=== PATIENT | female | born 1995 | race Caucasian/White ===

== ENCOUNTER 2023-07-11 13:08 | Outpatient (OUT) | payer OTHER, SELFPAY ==
--- NOTE | 2023-07-11 13:10 | US_ITS ---
[address] [address] Patient Name: JERAMY SWEENEY MRN: [id number] date: 1995 Sex: F Assigned Patient Location: US Current Patient Location: US Accession/Order Number: [id number] Exam Date: 07/11/2023 13:10 Report Date: 07/11/2023 15:50 At the request of: BRIA DIAL Procedure: US OB transvaginal EXAMINATION: US OB transvaginal HISTORY: MISSED MENSES COMPARISON: No relevant comparison available. FINDINGS: GESTATIONAL SAC: Present and normal appearing. YOLK SAC: Present and normal appearing. POLE: Present and normal appearing. CARDIAC: Present. UTERUS: Normal size and appearance. OVARIES: Right: Normal. Left: Corpus lutein cyst. CERVIX: 4.6 cm in length and closed. CUL-DE-SAC: Normal. OTHER: None. AGE BY LMP: 8 weeks 2 days GOOD BY LMP: 02/18/2024 AGE BY US CRL: 6 weeks 3 days GOOD BY US CRL: 03/02/2024 US/US OB transvaginal IMPRESSION: 1. Single live intrauterine . Electronically authenticated by: GENI CABRAL Date: 07/11/2023 15:50
== END 2023-07-11 13:09 | disposition home or self-care (01) ==
LOC: US 13:08
PROVIDERS: Visit Provider Obstetrics & Gynecology
DX: N92.6 Irregular menstruation, unspecified (principal); Z33.1 Pregnant state, incidental
CPT/HCPCS: 76817

== ENCOUNTER 2023-08-08 12:32 | Outpatient (OUT) | payer OTHER, SELFPAY ==
[2023-08-08 13:09] LABS: Basophils Percent Auto 0.3 % (0.2-2.0); Eosinophils Percent Auto 0.1 % (0.9-7.0); Hematocrit 33.3 % (36.0-48.0); Hemoglobin 11.4 g/dL (12.0-16.0); Immature Granulocytes Abs Auto 0.02 10^3/uL (0.00-0.03); Immature Granulocytes Pct Auto 0.3 % (0.0-0.5); Lymphocytes Absolute Auto 1.7 10^3/uL (1.2-3.8); Mean Corpuscular HGB Conc 34.2 g/dL (29.9-35.2); Mean Corpuscular Volume 93.5 fL (81.0-99.0); Mean Platelet Volume 10.3 fL (9.5-13.5); Monocytes Absolute Auto 0.3 10^3/uL (0.3-0.8); Monocytes Percent Auto 4.2 % (1.7-12.0); Neutrophils Absolute Auto 5.8 10^3/uL (1.4-6.5); Neutrophils Percent Auto 74.1 % (43.0-75.0); Platelet Count 163 10^3/uL (150-450); Red Blood Count 3.56 10^6/uL (4.20-5.40); Red Cell Distribution Width 12.4 % (11.0-15.0); White Blood Count 7.8 10^3/uL (4.0-11.0)
[2023-08-08 13:30] LABS: Estimated Average Glucose 100 mg/dL; Glycohemoglobin A1C 5.1 % (4.5-6.2)
[2023-08-08 13:54] LABS: Thyroid Stimulating Hormone 2.762 uIU/mL (0.358-3.740)
[2023-08-09 06:11] LABS: Rubella Antibodies, IgG 2.47 index (Immune >0.99)
[2023-08-09 07:08] LABS: HBsAg Screen Negative (Negative); HCV Ab Non Reactive (Non Reactive)
[2023-08-09 08:12] LABS: HIV Ab/p24 Ag Screen Non Reactive (Non Reactive)
[2023-08-09 11:14] LABS: Rapid Plasma Reagin, Quant Non Reactive titer (NonRea<1:1)
== END 2023-08-08 12:33 | disposition home or self-care (01) ==
LOC: LAB 12:44
PROVIDERS: Visit Provider Obstetrics & Gynecology
DX: N92.6 Irregular menstruation, unspecified (principal)
CPT/HCPCS: 36415; 83036; 84443; 85025; 86592; 86762; 86803; 86850; 86900; 86901; 87086; 87340; 87389

== ENCOUNTER 2023-08-22 13:52 | Outpatient (OUT) | payer OTHER, SELFPAY | END 2023-08-22 13:53 | disposition home or self-care (01) | LOC: LAB 13:55 | PROVIDERS: Visit Provider Obstetrics & Gynecology | DX: Z34.80 Encounter for supervision of other normal pregnancy, unspecified trimester (principal) | CPT/HCPCS: 36415 ==

== ENCOUNTER 2023-09-09 20:24 | Outpatient (REF) | payer OTHER, SELFPAY ==
[2023-09-13 21:07] LABS: Age Gdln ACOG Testing Note (.); HPV Aptima Positive (Negative); HPV Genotype 16 Negative (Negative); HPV Genotype 18,45 Negative (Negative); IGP, Aptima HPV, rfx 16/18,45 Note (.)
== END 2023-09-09 20:25 | disposition home or self-care (01) ==
LOC: LAB 20:24
PROVIDERS: Visit Provider Physician Assistant
DX: Z01.419 Encounter for gynecological examination (general) (routine) without abnormal findings (principal)
CPT/HCPCS: 87624; 87625; G0145

== ENCOUNTER 2023-10-23 10:37 | Emergency (ER) | payer OTHER, SELFPAY ==
[2023-10-23 10:40] VITALS: BP 112/87; PULSE 109; RESP 18; TEMP 37; O2SAT 99; BMI 23.2
--- OUTSIDE RECORDS SUMMARY | 2023-10-23 10:47 | XMS_ITS | CCD ---
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 Name Role Phone RUSSELL, DR DEBBIE Mohan Attending Unavailabl e REINECK, DR DEBBIE Mhoan Admitting Unavailabl e MARCH ., DR MARIS Vail Primary Care Unavailable REINECK, DR DEBBIE Mohan Consulting Unavailabl e CASSANDRA ROSALES Admitting Unavailable CASSANDRA ROSALES Attending Unavailable EMMETTCHNY ., ABIGAIL RALPH Consulting Unavailabl e MARCH ., DR MARIS Vail Primary Care Unavailable LUDWIG JEAN BAPTISTE Consulting Unavailable YOJANA ., DR FRASER Attending Unavailable YOJANA ., DR FRASER Admitting Unavailable MARCH ., DR MARIS Vail Primary Care Unavailable YOJANA ., DR FRASER Attending Unavailable YOJANA ., DR FRASER Admitting Unavailable MARCH ., DR MARIS Vail Primary Care Unavailable YOJANA ., DR FRASER Attending Unavailable YOJANA ., DR FRASER Admitting Unavailable MARCH ., DR MARIS Vail Primary Care Unavailable MARCH ., DR MARIS Vail Primary Care Unavailable MARCH ., DR MARIS Vail Consulting Unavailable MARCH ., DR MARIS Vail Attending Unavailable MARCH ., DR MARIS Vail Admitting Unavailable ZIEBER, DR GENI Lemos Consulting Unavailable YOJANA ., DR FRASER Attending Unavailable YOJANA ., DR FRASER Admitting Unavailable MARCH ., DR MARIS Vail Primary Care Unavailable MARCH ., DR MARIS Vail Consulting Unavailable YOJANA ., DR FRASER Consulting Unavailable ZIEBER, DR GENI Lemos Consulting Unavailable YOJANA ., DR FRASER Consulting Unavailable MISC, DR JIM Admitting Unavailable YOJANA ., DR FRASER Primary Care Unavailable MISC, DR JIM Attending Unavailable YOJANA ., DR FRASER Primary Care Unavailable IRAJ ., COLELEN Attending Unavailable IRAJ ., COLLEEN Admitting Unavailable IRAJ ., COLLEEN Consulting Unavailable DIAB ., JOANN Attending Unavailable DIAB ., JOANN Admitting Unavailable DIAB ., JOANN Consulting Unavailable MARCH ., DR MARIS Vail Primary Care Unavailable CASSANDRA ROSALES Admitting Unavailable CASSANDRA ROSALES Consulting Unavailable CASSANDRA ROSALES Attending Unavailable MARCH ., DR MARIS Vail Primary Care Unavailable CASSANDRA ROSALES Admitting Unavailable CASSANDRA ROSALES Consulting Unavailable CASSANDRA ROSALES Attending Unavailable MARCH ., DR MARIS Vail Primary Care Unavailable COLLEEN GALO Attending Unavailable BRIA BALES Attending Unavailable Unavailable Primary Care Provider UnavailBRIA Praks Referring Unavailable HASEEB NICE Attending Unavailable BRIA BALES Referring Unavailable Medications Current Medications Medication Drug Class(es) Dates Sig (Normalized) Sig (Original) levothyroxine sodium 0.1 mg oral tablet (6 sources) l-Thyroxine take 1 tablet by mouth in the morning levothyroxine (SYNTHROID, LEVOTHROID) 100 MCG tablet Take 1 tablet (100 mcg total) by mouth in the morning. 0 Active ondansetron 4 mg disintegrating oral tablet (6 sources) Serotonin-3 Receptor Antagonist take 1 tablet by mouth every six hours as needed for nausea and vomiting ondansetron ODT (ZOFRAN ODT) 4 mg disintegrating tablet Dissolve 1 tablet (4 mg total) on tongue every 6 (six) hours as needed for nausea or vomiting. 0 Active vit no.198-ugzl-wtbym acid ( VITAMIN) 27 mg iron- 800 mcg tablet (6 sources) take 1 tablet by mouth in the morning vit no.549-rfss-[id number] acid ( VITAMIN) 27 mg iron- 800 mcg tablet Take 1 tablet by mouth in the morning. 0 Active progesterone (FIRST-PROGESTERONE VGS) 200 mg suppository (6 sources) progesterone (FIRST-PROGESTERONE VGS) 200 mg suppository Insert 1 suppository (200 mg total) into the vagina nightly. 0 Active Problems Active Problems Problem Classification Problem Date Documented Date Episodic/Chronic Essential hypertension (1 source) Essential (primary) hypertension; Translations: [ESSENTIAL PRIMARY HYPERTENSION] Onset: 03-22-2022 Chronic Hemorrhage during ; abruptio placenta; placenta previa (7 sources) Threatened ; Translations: [Hemorrhage in early , unspecified] Onset: 01-22-2023 Episodic Menopausal disorders (1 source) Hormone replacement therapy; Translations: [HORMONE REPLACEMENT THERAPY] Onset: 01-22-2023 Episodic Menstrual disorders (4 sources) Irregular menstruation, unspecified; Translations: [IRREGULAR MENSTRUATION UNSPECIFIED] Onset: 01-28-2023 Chronic Other aftercare (1 source) Other production planner (current) drug therapy; Translations: [OTH SENIOR LIVING CURRENT DRUG THERAPY] Onset: 01-23-2023 Episodic Other complications of ; puerperium affecting management of mother (1 source) Endocrine, nutritional and metabolic diseases complicating childbirth; Translations: [ENDOCRN NUTR MET DZ COMP CHILDBIRTH] Onset: 01-22-2023 Episodic Other complications of (1 source) Endocrine, nutritional and metabolic diseases complicating , first trimester; Translations: [ENDOCRN NUTR MET DZ COMP PG 1ST TRI] Onset: 01-23-2023 Episodic Other complications of (1 source) Smoking (tobacco) complicating , first trimester; Translations: [SMOKING TOBACCO COMP PREG 1ST TRI] Onset: 01-23-2023 Episodic Other complications of (1 source) Other viral diseases complicating , first trimester; Translations: [OTH VIRAL DZ COMP PREG FIRST TRI] Onset: 01-09-2023 Episodic Other complications of (1 source) High risk ; Translations: [Supervision of high risk , unspecified, second trimester] 10-16-2023 Episodic Other complications of (2 sources) H/O: ; Translations: [Supervision of with other poor reproductive or obstetric history, unspecified trimester] 10-16-2023 Episodic Other complications of (1 source) Hypothyroidism in ; Translations: [Endocrine, nutritional and metabolic diseases complicating , second trimester] 10-16-2023 Episodic Other complications of (1 source) care for patient with recurrent loss, unspecified trimester; Translations: [ care for patient with recurrent loss, unspecified trimester] Onset: 10-16-2023 Episodic Other complications of (1 source) Supervision of high risk , unspecified, second trimester; Translations: [Supervision of high risk , unspecified, second trimester] Onset: 10-16-2023 Episodic Other complications of (1 source) Supervision of with other poor reproductive or obstetric history, unspecified trimester; Translations: [Supervision of with other poor reproductive or obstetric history, unspecified trimester] Onset: 10-16-2023 Episodic Other complications of (1 source) Endocrine, nutritional and metabolic diseases complicating , second trimester; Translations: [Endocrine, nutritional and metabolic diseases complicating , second trimester] Onset: 10-16-2023 Episodic Other screening for suspected conditions (not mental disorders or infectious disease) (2 sources) Encounter for other specified screening; Translations: [Encounter for screening for cervical length] Onset: 10-16-2023 Episodic Residual codes; unclassified (1 source) Less than 8 weeks gestation of ; Translations: [< 8 WEEKS GESTATION ] Onset: 01-23-2023 Episodic Residual codes; unclassified (1 source) Gestation period, 20 weeks; Translations: [20 weeks gestation of ] 10-16-2023 Episodic Residual codes; unclassified (1 source) 20 weeks gestation of ; Translations: [20 weeks gestation of ] Onset: 10-16-2023 Episodic Substance-related disorders (1 source) Nicotine dependence, cigarettes, uncomplicated; Translations: [NICOTINE DEPEND CIGARETTES UNCOMP] Onset: 01-23-2023 Chronic Thyroid disorders (7 sources) Hypothyroidism, unspecified; Translations: [Hypothyroidism] Onset: 03-16-2022 Chronic Unclassified (1 source) PERSONAL HISTORY OF COVID-19; Translations: [PERSONAL HISTORY OF COVID-19] Onset: 01-22-2023 Unclassified (2 sources) COUGH, UNSPECIFIED; Translations: [COUGH, UNSPECIFIED] Onset: 01-09-2023 Unclassified (1 source) Hx Oligo Onset: 10-16-2023 Viral infection (1 source) COVID-19; Translations: [COVID-19] Onset: 01-09-2023 Past or Other Problems Problem Classification Problem Date Documented Da te Episodic/Chronic E Codes: Fall (1 source) Unspecified fall, initial encounter; Translations: [UNSPECIFIED FALL INITIAL ENCOUNTER] Onset: 10-23-2022 Episodic Immunizations and screening for infectious disease (1 source) Encounter for immunization; Translations: [ENCOUNTER FOR IMMUNIZATION] Onset: 10-23-2022 Episodic Inflammation; infection of eye (except that caused by tuberculosis or sexually transmitteddisease) (1 source) Unspecified conjunctivitis; Translations: [UNSPECIFIED CONJUNCTIVITIS] Onset: 03-05-2022 Episodic Open wounds of head; neck; and trunk (4 sources) Laceration without foreign body of other part of head, initial encounter; Translations: [LAC W/O FB OTH PART HEAD INIT ENC] Onset: 10-20-2022 Episodic Other connective tissue disease (1 source) Impingement syndrome of right shoulder; Translations: [IMPINGEMENT SYNDROME RIGHT SHOULDER] Onset: 03-22-2022 Episodic Other eye disorders (3 sources) Other specified disorders of eye and adnexa; Translations: [OTHER SPEC DISORDERS EYE AND ADNEXA] Onset: 03-03-2022 Episodic Other and delivery including normal (1 source) Encounter for supervision of normal , unspecified, first trimester; Translations: [ENC SUP NORMAL PREG UNS FIRST TRI] Onset: 06-04-2022 Episodic Unclassified (1 source) COUGH, UNSPECIFIED; Translations: [COUGH, UNSPECIFIED] Onset: 01-08-2023 Results Test Name Value Interpretation Reference Range Facil ity PREG QUANT HCGon 01-28-2023 HCG QUANT 17 mIU/mL Normal [facility] Comment on above: Performed By: #### P REGQNT #### [facility] [address] [place] [address] Dr. Anna Romero HCG RANGE SEE BELOW Normal [facility] Comment on above: Result Comment: 5-50 0.2-1 WEEK 50-500 1-2 WEEKS 100-5,000 2-3 WEEKS 500-10,000 3-4 WEEKS 1,000-50,000 4-5 WEEKS 10,000-100,000 5-6 WEEKS 15,000-200,000 6-8 WEEKS 10,000-100,000 2-3 MONTHS Performed By: #### P REGQNT #### [facility] [address] [address] [address] Anna Romero PREG QUANT HCGon 01-23-2023 HCG QUANT 441 mIU/mL Normal [facility] Comment on above: Performed By: #### S SCRN, GRASTCX #### [facility] [address] [address] [address] Anna Rmoero HCG RANGE SEE BELOW Normal [facility] Comment on above: Result Comment: 5-50 0.2-1 WEEK 50-500 1-2 WEEKS 100-5,000 2-3 WEEKS 500-10,000 3-4 WEEKS 1,000-50,000 4-5 WEEKS 10,000-100,000 5-6 WEEKS 15,000-200,000 6-8 WEEKS 10,000-100,000 2-3 MONTHS Performed By: #### S CARLA GRASTCX #### [facility] [address] [place] [address] Dr. Anna Romero ABO AND RH TYPEon 01-21-2023 ABO and Rh group Nom (Bld) ABO Rh Typing A Rh Positive Normal [facility] Comment on above: Performed By: #### S CARLA GRASTCX #### [facility] [address] [place] [address] Dr. Anna Romero ER URINE PROFILEon 3 Bilirubin Ql (U) Negative Normal NEGATIVE The [facility] Comment on above: Performed By: #### FANG URIASICRO #### [facility] [address] [place] [address] Dr. Anna Romero Clarity (U) CLEAR Normal CLEAR [facility] Comment on above: Performed By: #### FANG URIASICRO #### [facility] [address] [place] [address] Dr. Anna Romero Color (U) YELLOW Normal YELLOW [facility] Comment on above: Performed By: #### FANG URIASICRO #### [facility] [address] [place] [address] Dr. Anna Romero ERUAlvin A micrscopic examination will be performed if indicated. Normal [facility] Comment on above: Performed By: #### Yared BARBOSA UMICRO #### [facility] [address] [place] [address] Dr. Anna Romero Glucose Ql (U) Negative Normal NEGATIVE The [facility] Comment on above: Performed By: #### Yared BARBOSA UMICRO #### [facility] [address] [place] [address] Dr. Anna Romero Hemoglobin Ql (U) LARGE Abnormal NEGATIVE The [facility] Comment on above: Performed By: #### Yared BARBOSA UMICRO #### [facility] [address] [place] [address] Dr. Anna Romero Ketones Ql (U) Negative Normal NEGATIVE The [facility] Comment on above: Performed By: #### Yared BARBOSA UMICRO #### [facility] [address] [place] [address] Dr. Anna Romero LEUKOCYTES Negative Normal NEGATIVE [facility] Comment on above: Performed By: #### Yared BARBOSA UMICRO #### [facility] [address] [place] [address] Dr. Anna Romero Nitrite Ql (U) Negative Normal NEGATIVE [facility] Comment on above: Performed By: #### Yared BARBOSA UMICRO #### [facility] [address] [place] [address] Dr. Anna Romero pH (U) 5.5 [pH] Normal 5-9 [facility] Comment on above: Performed By: #### Yared BARBOSA UMICRO #### [facility] [address] [place] [address] Dr. Anna Romero SPEC GRAVITY >=1.030 Abnormal 1.005-<=1.025 [facility] Comment on above: Performed By: #### Yared BARBOSA UMICRO #### [facility] [address] [place] [address] Dr. Anna Romero UA PROTEIN TRACE Normal NEGATIVE/ TRACE [facility] Comment on above: Performed By: #### Yared BARBOSA UMICRO #### [facility] [address] [place] [address] Dr. Anna Romero UR MICRO IND INDICATED Normal [facility] Comment on above: Performed By: #### Yared BARBOSA UMICRO #### [facility] [address] [place] [address] Dr. Anna Romero Urobilinogen Qn (U) 0.2 {Joel'U}/dL Normal 0.2 - 1. 0 [facility] Comment on above: Performed By: #### E RUR, UMICRO #### [facility] [address] [place] [address] Dr. Anna Romero PREG QUANT HCGon 01-21-2023 HCG QUANT 1693 mIU/mL Normal [facility] Comment on above: Performed By: #### S MOISEN, GRASTCX #### [facility] [address] [place] [address] Dr. Anna Romero HCG RANGE SEE BELOW Normal [facility] Comment on above: Result Comment: 5-50 0.2-1 WEEK 50-500 1-2 WEEKS 100-5,000 2-3 WEEKS 500-10,000 3-4 WEEKS 1,000-50,000 4-5 WEEKS 10,000-100,000 5-6 WEEKS 15,000-200,000 6-8 WEEKS 10,000-100,000 2-3 MONTHS Performed By: #### S CARLA, GRASTCX #### [facility] [address] [place] [address] Dr. Anna Romero URINE MICROSCOPIC ONLYon BACTERIA TRACE Abnormal NONE SEEN [facility] Comment on above: Performed By: #### Yared RUR, UMICRO #### [facility] [address] [place] [address] Dr. Anna Romero Bacteria identified Cx Nom (U) NOT INDICATED Normal [facility] Comment on above: Performed By: #### Yared RUR, UMICRO #### [facility] [address] [place] [address] Dr. Anna Romero CAST NONE SEEN Normal NONE SEEN [facility] Comment on above: Performed By: #### E RUR, UMICRO #### [facility] [address] [place] [address] Dr. Anna Romero Crystals LM Nom (Urine sed) NONE SEEN Normal NONE SEEN [facility] Comment on above: Performed By: #### E RUR, UMICRO #### [facility] [address] [place] [address] Dr. Anna Romero Epithelial cells LM Ql (Urine sed) RARE Normal NONE SEEN /RARE [facility] Comment on above: Performed By: #### E RUR, UMICRO #### [facility] [address] [address] [address] Anna Romero MUCOUS TRACE Abnormal NONE SEEN [facility] Comment on above: Performed By: #### E VINCENT BARBOSA #### [facility] [id number] Anna Romero RBC 2-5 Abnormal 0-2 [facility] Comment on above: Performed By: #### E RURJDRO #### [facility] [address] [address] [address] Anna Romero WBC 0-2 Abnormal NONE SEEN [facility] Comment on above: Performed By: #### E JD BARBOSARO #### [facility] [address] [address] [address] Anna Romero US PREG TVon 01-21-2023 US PREG TV EXAM: US PREG TV HISTORY: , spotting. COMPARISON: 05/31/2022. TECHNIQUE: Transvaginal ultrasound of the pelvis was performed using Duplex Doppler and color-flow. Transvaginal ultrasound medically necessary for optimal imaging. FINDINGS: Ultrasound images demonstrate a gravid uterus with a single intrauterine gestational sac. Mean sac diameter measures 0.57 cm, which is too early for dating. Within the gestational sac is a 0.21 cm yolk sac. No pole or cardiac activity seen at this time. The cervix appears closed and measures 3.3 cm. The right ovary measures up to 2.6 x 2.1 x 1.2 cm, and the left ovary measures up to 3.5 x 2.7 x 1.9 cm. There is a small 1.4 x 1.5 x 1.6 cm cystic area within the left ovary most likely representing residua of corpus luteal cyst of . A 1.1 x 0.9 x 0.8 cm right ovarian cystic area could also represent a small corpus luteum cyst. Arterial and venous flow are noted in both ovaries. No significant free fluid is noted within the pelvis. IMPRESSION: Findings suggestive of early intrauterine gestation. A single intrauterine gestational sac containing a yolk sac is seen, with measurements too early for accurate dating. Differential includes failed . No adnexal mass or pelvic free fluid to suggest ectopic . Recommend close clinical follow-up with trending of beta-hCG and repeat pelvic ultrasound as clinically indicated to confirm viable . 1.6 cm cystic area within the left ovary may represent a corpus luteum cyst. There is also a 1.1 cm right ovarian cyst. Electronically authenticated by: LUDWIG JEAN BAPTISTE Date: 2023-01-21 16:54 Normal [facility] ER URINE PROFILEon 3 Bilirubin Ql (U) Negative Normal NEGATIVE The [facility] Comment on above: Performed By: #### E RUR #### [facility] [address] [place] [address] Dr. Anna Romero Clarity (U) CLEAR Normal CLEAR [facility] Comment on above: Performed By: #### E RUR #### [facility] [address] [place] [address] Dr. Anna Romero Color (U) YELLOW Normal YELLOW [facility] Comment on above: Performed By: #### E RUR #### [facility] [address] [place] [address] Dr. Anna BAER A micrscopic examination will be performed if indicated. Normal [facility] Comment on above: Performed By: #### E RUR #### [facility] [address] [place] [address] Dr. Anna Romero Glucose Ql (U) Negative Normal NEGATIVE The [facility] Comment on above: Performed By: #### E RUR #### [facility] [address] [place] [address] Dr. Anna Romero Hemoglobin Ql (U) Negative Normal NEGATIVE The [facility] Comment on above: Performed By: #### E RUR #### [facility] [address] [place] [address] Dr. Anna Romero Ketones Ql (U) Negative Normal NEGATIVE [facility] Comment on above: Performed By: #### E RUR #### [facility] [address] [place] [address] Dr. Anna Romero LEUKOCYTES Negative Normal NEGATIVE [facility] Comment on above: Performed By: #### E RUR #### [facility] [address] [place] [address] Dr. Anna Romero Nitrite Ql (U) Negative Normal NEGATIVE [facility] Comment on above: Performed By: #### E RUR #### [facility] [address] [place] [address] Dr. Anna Romero pH (U) 6.5 [pH] Normal 5-9 [facility] Comment on above: Performed By: #### E RUR #### [facility] [address] [place] [address] Dr. Anna Romero SPEC GRAVITY 1.025 Normal 1.005-<=1.025 [facility] Comment on above: Performed By: #### E RUR #### [facility] [address] [place] [address] Dr. Anna Romero UA PROTEIN TRACE Normal NEGATIVE/ TRACE [facility] Comment on above: Performed By: #### E RUR #### [facility] [address] [place] [address] Dr. Anna Romero UR MICRO IND NOT INDICATED Normal [facility] Comment on above: Performed By: #### E RUR #### [facility] [address] [place] [address] Dr. Anna Romero Urobilinogen Qn (U) 0.2 {Joel'U}/dL Normal 0.2 - 1. 0 [facility] Comment on above: Performed By: #### E RUR #### [facility] [address] [place] [address] Dr. Anna Romero GROUP A STREP CULTUREon 12-13 S. pyogenes Ag Ql (Unsp spec) Culture Observations: NEGATIVE FOR GROUP A STREPTOCOCCUS. Normal [facility] Comment on above: Performed By: #### S CARLA GRASTCX #### [facility] [address] [place] [address] Dr. Anna Romero STREPT SCREENon 01-08-2023 STREP SCREEN A Negative Normal NEGATIVE The [facility] Comment on above: Performed By: #### S CARLA GRASTCX #### [facility] [address] [place] [address] Dr. Anna Romero SYMPTOMATIC COVID-19 ANTIGEN on 01-08-2023 EUA Statement SEE BELOW Normal [facility] Comment on above: Result Comment: This test has not been FDA cleared or approved, but has been authorized by the FDA under an Emergency Use Authorization (EUA) for use by authorized laboratories certified under CLIA that meet the requirements to perform moderate or high complexity testing. This test has been authorized only for the detection of proteins from SARS-CoV-2, not for any other viruses or pathogens. The emergency use of this test is authorized for the duration of the declaration that circumstances exist justifying the authorization of emergency use of in vitro diagnostic tests for detection and/or diagnosis of Covid-19 under section 564(b)(1) of the Act, 21 U.S.C. 360bbb-3(b)(1), unless the declaration is terminated or authorization is revoked sooner. Performed By: #### S SCRN, GRASTCX #### [facility] [address] [address] [address] Anna Romero SARS-CoV-2 (COVID-19) RNA DAVY+probe Ql (Unsp spec) Positive Abnormal NEGATIVE [facility] Comment on above: Performed By: #### S SCRN, GRASTCX #### [facility] [address] [address] [address] Anna Romero US PREG TVon 05-31-2022 US PREG TV EXAMINATION: US PREG TV HISTORY: Irregular periods COMPARISON: No relevant comparison available. FINDINGS: GESTATIONAL SAC: Present and normal appearing. POLE: Present and normal appearing. YOLK SAC: Present. CARDIAC: Present. UTERUS: Normal size and appearance. OVARIES: Right: Suspect small complex ovarian cyst and possibly an adjacent small simple appearing paraovarian cyst. Left: Normal. CERVIX: 3.7 cm in length and closed. CUL-DE-SAC: Normal. OTHER: Small subchorionic hematoma. AGE BY LMP: 7 weeks, 3 days GOOD BY LMP: 01/14/2023 AGE BY US CRL: 6 weeks 2 days GOOD BY US CRL: 01/22/2023 IMPRESSION: 1. Single live intrauterine . Electronically authenticated by: GENI CABRAL Date: 2022-05-31 19:46 Normal [facility] BILIRUBIN TOTALon 06-03-2022 Bilirubin [Mass/Vol] 0.3 mg/dL Normal 0.2-1.0 [facility] Comment on above: Performed By: #### T DALE #### [facility] [address] [place] [address] Dr. Anna Romero CBC AUTO DIFFon 03-16-2022 BASO # 0.0 103/ul Normal 0.0-0.1 [facility] Comment on above: Performed By: #### C BC #### [facility] [address] [place] [address] Dr. Anna Romero Basophils/100 WBC (Bld) 0.4 % Normal 0.2-2.0 [facility] Comment on above: Performed By: #### C BC #### [facility] [address] [place] [address] Dr. Anna Romero EO # 0.0 103/ul Normal 0.0-0.7 [facility] Comment on above: Performed By: #### C BC #### [facility] [address] [place] [address] Dr. Anna Romero Eosinophils/100 WBC (Bld) 0.2 % Critically low 0.9-7.0 [facility] Comment on above: Performed By: #### C BC #### [facility] [address] [place] [address] Dr. Anna Romero Erythrocyte distribution width (RBC) [Ratio] 12.8 % Normal 11.0-15.0 [facility] Comment on above: Performed By: #### C BC #### [facility] [address] [place] [address] Dr. Anna Romero Hematocrit (Bld) [Volume fraction] 39.2 % Normal 36.0-48.0 [facility] Comment on above: Performed By: #### C BC #### [facility] [address] [place] [address] Dr. Anna Romero Hemoglobin (Bld) [Mass/Vol] 12.9 g/dL Normal 12.0-16.0 [facility] Comment on above: Performed By: #### C BC #### [facility] [address] [place] [address] Dr. Anna Romero IG # 0.01 10e3/ul Normal 0.00-0.03 [facility] Comment on above: Performed By: #### C BC #### [facility] [address] [place] [address] Dr. Anna Romero IG % 0.2 % Normal 0.0-0.5 [facility] Comment on above: Performed By: #### C BC #### [facility] [address] [place] [address] Dr. Anna Romero LYMPH # 1.6 103/ul Normal 1.2-3.8 [facility] Comment on above: Performed By: #### C BC #### [facility] [address] [place] [address] Dr. Anna Romero Lymphocytes/100 WBC (Bld) 29.8 % Normal 20.5-60.0 [facility] Comment on above: Performed By: #### C BC #### [facility] [address] [place] [address] Dr. Anna Romero MANUAL DIFF REQ NO Normal [facility] Comment on above: Performed By: #### C BC #### [facility] [address] [place] [address] Dr. Anna Romero MCH (RBC) [Entitic mass] 31.8 pg Normal 26.7-34.0 [facility] Comment on above: Performed By: #### C BC #### [facility] [address] [place] [address] Dr. Anna Romero MCHC (RBC) [Mass/Vol] 32.9 g/dL Normal 29.9-35.2 [facility] Comment on above: Performed By: #### C BC #### [facility] [address] [place] [address] Dr. Anna Romero MCV (RBC) [Entitic vol] 96.6 fL Normal 81.0-99.0 [facility] Comment on above: Performed By: #### C BC #### [facility] [address] [place] [address] Dr. Anna Romero MONO # 0.4 103/ul Normal 0.3-0.8 [facility] Comment on above: Performed By: #### C BC #### [facility] [address] [place] [address] Dr. Anna Romero Monocytes/100 WBC (Bld) 7.2 % Normal 1.7-12.0 [facility] Comment on above: Performed By: #### C BC #### [facility] [address] [place] [address] Dr. Anna Romero NEUT # 3.3 103/ul Normal 1.4-6.5 [facility] Comment on above: Performed By: #### C BC #### [facility] [address] [place] [address] Dr. Anna Romero Neutrophils/100 WBC (Bld) 62.2 % Normal 43.0-75.0 [facility] Comment on above: Performed By: #### C BC #### [facility] [address] [place] [address] Dr. Anna Romero Platelet mean volume (Bld) [Entitic vol] 10.0 fL Normal 9.5-13.5 [facility] Comment on above: Performed By: #### C BC #### [facility] [address] [place] [address] Dr. Anna Romero PLT 153 103/ul Normal 150-450 [facility] Comment on above: Performed By: #### C BC #### [facility] [address] [place] [address] Dr. Anna Romero RBC 4.06 106/ul Critically low 4.20-5.40 [facility] Comment on above: Performed By: #### C BC #### [facility] [address] [place] [address] Dr. Anna Romero WBC 5.3 103/ul Normal 4.0-11.0 [facility] Comment on above: Performed By: #### C BC #### [facility] [address] [place] [address] Dr. Anna Romero FREE T3on 03-16-2022 FREE T3 3.18 pg/mlL Normal 2.18-3.98 [facility] Comment on above: Performed By: #### S SCRN, GRASTCX #### [facility] [address] [place] [address] Dr. Anna Romero FREE T4on 03-16-2022 Free T4 [Mass/Vol] 1.08 ng/dL Normal 0.76-1.46 [facility] Comment on above: Performed By: #### F T4 #### [facility] [address] [place] [address] Dr. Anna Romero PROF 14(COMP METB)on 022 Albumin [Mass/Vol] 4.3 g/dL Normal 3.4-5.0 [facility] Comment on above: Performed By: #### S SCREleanor, GRASTCX #### [facility] [address] [place] [address] Dr. Anna Romero Albumin/Globulin [Mass ratio] 1.2 {ratio} Normal [facility] Comment on above: Performed By: #### S SCREleanor, GRASTCX #### [facility] [address] [place] [address] Dr. Anna Romero ALP [Catalytic activity/Vol] 60 U/L Normal 46-116 [facility] Comment on above: Performed By: #### S SCRN, GRASTCX #### [facility] [address] [place] [address] Dr. Anna Romero ALT [Catalytic activity/Vol] 25 U/L Normal 14-59 [facility] Comment on above: Performed By: #### S SCRN, GRASTCX #### [facility] [address] [place] [address] Dr. Anna Romero Anion gap [Moles/Vol] 13.8 mmol/L Normal [facility] Comment on above: Performed By: #### S SCRN, GRASTCX #### [facility] [address] [place] [address] Dr. Anna Romero AST [Catalytic activity/Vol] 21 U/L Normal 15-37 [facility] Comment on above: Performed By: #### S SCRN, GRASTCX #### [facility] [address] [address] [address] Anna Romero Calcium [Mass/Vol] 9.4 mg/dL Normal 8.5-10.1 [facility] Comment on above: Performed By: #### S SCRN, GRASTCX #### [facility] [address] [address] [address] Anna Romero Chloride [Moles/Vol] 101 mmol/L Normal 98-107 [facility] Comment on above: Performed By: #### S SCRN, GRASTCX #### [facility] [address] [address] [address] Anna Romero CO2 [Moles/Vol] 26.8 mmol/L Normal 21.0-32.0 [facility] Comment on above: Performed By: #### S SCRN, GRASTCX #### [facility] [address] [place] [address] Dr. Anna Romero Creatinine [Mass/Vol] 0.87 mg/dL Normal 0.55-1.02 [facility] Comment on above: Performed By: #### S SCRN, GRASTCX #### [facility] [address] [address] [address] Anna Romero EGFR-AF BURUNDIAN >60 Normal >=60 [facility] Comment on above: Performed By: #### S SCRN, GRASTCX #### [facility] [address] [place] [address] Dr. Anna Romero EGFR-NON AF BURUNDIAN >60 Normal >=60 [facility] Comment on above: Performed By: #### S SCRN, GRASTCX #### [facility] [address] [address] [address] Anna Romero Globulin (S) [Mass/Vol] 3.5 g/dL Normal [facility] Comment on above: Performed By: #### S SCRN, GRASTCX #### [facility] [address] [place] [address] Dr. Anna Romero Glucose [Mass/Vol] 80 mg/dL Normal 74-106 [facility] Comment on above: Performed By: #### S SCRN, GRASTCX #### [facility] [address] [place] [address] Dr. Anna Romero Potassium [Moles/Vol] 3.6 mmol/L Normal 3.5-5.1 [facility] Comment on above: Performed By: #### S SCRN, GRASTCX #### [facility] [address] [place] [address] Dr. Anna Romero Protein [Mass/Vol] 7.8 g/dL Normal 6.4-8.2 [facility] Comment on above: Performed By: #### S SCRN, GRASTCX #### [facility] [address] [place] [address] Dr. Anna Romero Sodium [Moles/Vol] 138 mmol/L Normal 136-145 [facility] Comment on above: Performed By: #### S CARLA GRASTCX #### [facility] [address] [place] [address] Dr. Anna Romero Urea nitrogen [Mass/Vol] 12.0 mg/dL Normal 7.0-18.0 [facility] Comment on above: Performed By: #### S CARLA GRASTCX #### [facility] [address] [place] [address] Dr. Anna Romero Urea nitrogen/Creatinine [Mass ratio] 13.8 mg/mg Normal [facility] Comment on above: Performed By: #### S CARLA GRASTCX #### [facility] [address] [place] [address] Dr. Anna Romero TSHon 03-16-2022 TSH 2.442 uIU/mL Normal 0.358-3.740 [facility] Comment on above: Performed By: #### S CARLA GRASTCX #### [facility] [address] [place] [address] Dr. Anna Romero TSH RANGE SEE BELOW Normal [facility] Comment on above: Result Comment: <0.3 4 UIU/ml HYPERTHYROID 0.34-5.60 UIU/ml EUTHYROID >5.60 UIU/ml HYPOTHYROID Performed By: #### S SCRN, GRASTCX #### [facility] [address] [address] [address] Anna Romero Vital Signs Date Time Vital Sign Value Performing Clinician Paolai lity 10-16-2023 12:21-0500 Body height 170.2 cm Haseeb Nice MD Work Phone: [facility] 10-16-2023 12:21-0500 Body mass index (BMI) [Ratio] 22.55 kg/m2 Haseeb Nice MD Work Phone: [facility] 10-16-2023 12:21-0500 Body weight 65.32 kg Haseeb Nice MD Work Phone: [facility] 10-16-2023 12:21-0500 Diastolic blood pressure 66 mm[Hg] Haseeb Nice MD Work Phone: [facility] 10-16-2023 12:21-0500 Heart rate 79 /min Haseeb Nice MD Work Phone: [facility] 10-16-2023 12:21-0500 Systolic blood pressure 109 mm[Hg] Haseeb Nice MD Work Phone: [facility] Encounters Encounter Date Encounter Type Care Provider Facility Start: 10-22-2023 Documentation procedure Haseeb Nice MD Work Phone: [facility] Start: 10-22-2023 Telephone encounter Rachelle Penn PN [facility] Start: 10-21-2023 Chart abstracting Aliya berger MD Work Phone: [facility] Start: 10-17-2023 Orders Only Robbi Rodriguez [facility]- Medicine at [facility] Comment on above: History of oligohydr amnios in prior , currently (Primary Dx) Start: 10-16-2023 End: 10-17-2023 ambulatory BRIA BALES [facility] Start: 10-16-2023 End: 10-16-2023 Office outpatient new 45 minutes Hind Darius Nice MD Work Phone: [facility] Comment on above: High-risk in second trimester (Primary Dx); History of oligohydramnios in prior , currently ; 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; 20 weeks gestation of Start: 10-15-2023 Chart abstracting Scanning Pro vider External [facility] Start: 10-08-2023 End: 10-08-2023 ambulatory BRIA BALES Not Available Start: 09-09-2023 End: 09-09-2023 ambulatory COLLEEN GALO Not Available Start: 01-28-2023 End: 01-29-[address] BRIA BALES . Facility:[facility] Start: 01-23-2023 End: 01-24-[address] BRIA BALES . Facility:[facility] Start: 01-22-2023 End: 01-22-2023 ambulatory JOANN ZAZUETA . Facility:[facility] Start: 01-21-2023 End: 01-21-2023 ambulatory CASSANDRA ROSALES Facility:[facility] Start: 01-08-2023 End: 01-08-[address] DEBBIE WELLS Facility:[facility] Start: 10-20-2022 End: 10-20-2022 ambulatory CASSANDRA ROSALES Facility:[facility] Start: 07-20-[address] BRIA BALES . Facili ty:[facility] Start: 05-31-2022 End: 06-01-[address] BRIA BALES . Facility:[facility] Start: 05-17-[address] BRIA BALES . Facili ty:[facility] Start: 03-16-2022 End: 03-17-[address] MARIS MARCH . Facility:[facility] Start: 03-03-2022 End: 03-03-2022 ambulatory CASSANDRA ROSALES Facility:[facility] Plan of Treatment Date Care Activity Detail Author Start: 10-20-2032 DTaP,Tdap and Td Vaccines (9 - Td or Tdap) DTaP,Tdap and Td Vaccines (9 - Td or Tdap) [facility] Start: 10-17-2024 End: 10-17-2024 US MFM with or without consult US MFM with or without consult Imaging Routine History of oligohydramnios in prior , currently Expected: 10/17/2024 (Approximate), Expires: 10/17/2024 [facility] Work Phone: Comment on above: Expected: 10/17/2024 (Approximate), Expires: 10/17/2024 Start: 10-16-2024 Adult BMI Screening Adult BMI Screen ing [facility] Start: 10-16-2024 Tobacco Screening Tobacco Screening [facility] Start: 11-19-2023 End: 11-19-2023 Patient encounter procedure 11/19/2023 9:15 AM EST Appointment [facility] Ultrasound [address] [place] [address] [facility] Start: 10-29-2023 End: 10-29-2023 Patient encounter procedure 10/29/2023 9:15 AM EST Appointment [facility]ound [address] [place] [address] [facility] Start: 10-16-2023 End: 10-16-2023 Patient encounter procedure 10/16/2023 1:00 PM EST Office Visit [facility] at [facility] [address] [place] [id number] Haseeb Nice MD [address] [address] [facility] at [facility] Start: 10-16-2023 Subsequent hospital visit by physician 10/16/2023 11:30 AM EST Hospital Encounter [facility] - [facility] [address] [place] [id number] [facility] Start: 06-14-2023 Influenza vaccination Influenza Vacc ine [facility] Start: 2014 Screening for malignant neoplasm of cervix Pap Smear [facility] Start: 2012 DTaP,Tdap and Td Vaccines (1 - Tdap) DTaP,Tdap and Td Vaccines (1 - Tdap) [facility] [employer] [facility] Start: 2011 Adult BMI Screening Adult BMI Screen ing [facility] Start: 2005 Depression Screening Depression Scre ening [facility] Start: 2005 Tobacco Screening Tobacco Screening [facility] Start: 1993 Tobacco Counseling Tobacco Counselin g [facility] Payers Date Payer Category Payer Medicaid [employer] [id number] 2023-Present [phone] [address] [place] [address] [id number] 1993 Unknown [id number] 1993 Unknown [id number] [id number] 1993 Unknown [id number] [id number] 1993 Unknown [id number] [id number] 1993 Unknown [id number] [id number] 1993 Unknown [id number] [id number] 1993 Unknown [id number] [id number] 1993 Unknown [id number] 2.16.840.1.771534.3.579.2.593 1993 Unknown [id number] [id number] 1993 Unknown [id number] [id number] 1993 Unknown [id number] 2.16.840.1.396371.3.579.2.593 1993 Unknown [id number] 2.16.840.1.203001.3.579.2.593 1993 Unknown [id number] 2.16.840.1.533514.3.579.2.1259 1993 Unknown [id number] 2.16.840.1.601770.3.579.2.1259 1993 Unknown [id number] 2.16.840.1.039891.3.579.2.1286 1993 Unknown [id number] [id number] 1959 Self-pay [id number] 1959 Unknown [id number] 1959 Unknown [id number] Social History Date Type Detail Facility Start: 10-15-2023 Tobacco smoking stat [facility] Tobacco smoking consumption unknown [facility] Start: 03-23-2019 End: 10-16-2023 History of Social function [facility] Start: 03-23-2019 End: 10-16-2023 Housing Instability [facility] Housing Instability Unknown [facility] Start: 06-10-2023 [facility] Start: 1993 Sex Assigned At Not on file [facility] Start: 10-16-2023 [facility] History of tobacco use Cigarette Smoker P [facility] Start: 10-16-2023 Tobacco use and exposure Smoke less tobacco non-user [facility] Start: 10-16-2023 End: 10-21-2023 Alcohol intake Ex-drinker (finding) [facility] Clinical Notes 03-16-2022 to 10-22-2023 Telephone Encounter - Rachelle Mullen LPN - 10/22/2023 12:28 PM ESTTelephone Encounter - Rachelle Mullen LPN - 10/22/2023 12:28 PM Jesus Nice MD - 10/22/2023 11:07 AM EST Note Date & Type Note Facility 10-22-2023 Miscellaneous Notes Formattin g of this note might be different from the original. Please call us back to schedule an ultrasound next week. documented in this encounter [facility] 10-22-2023 Telephone encount er Note Please call us back to schedule an ultrasound next week. [facility] 10-22-2023 History of Presen t illness Narrative Release of records form was signed previously regarding delivery from 2017 which was a complicated with diagnosis of oligohydramnios. Placental pathology was reviewed and was consistent with a placenta that was appropriate for gestational age with acute chorioamnionitis, acute deciduitis and focal decidual necrosis. Ultrasound was also consistent with severe oligohydramnios. I was not able to locate any records regarding testing for rupture membranes. In view of the infectious pathology complicating the placenta my clinical suspicion is more consistent with history of rupture of membrane that was previable with complicated chorioamnionitis. She presented with vaginal bleeding and cervical dilation and subsequently delivered a previable female infant. In view of that record and with a clinical suspicion for previable Pprom management of the would be consistent for history of prior delivery secondary to spontaneous as defined by ACOG with diagnosis of rupture of membranes. I attempted to contact her and left her a voice message. Our office will contact her to schedule a follow-up cervical length assessment. Her prior cervical length measurement was within normal limits. Prior spontaneous Prior spontaneous before 37 weeks does come with an inherent risk of recurrence with future pregnancies. Vaginal progesterone may be considered as a treatment option for patients with a history of , lozano gestation, and a shortened cervix. However, vaginal progesterone has not been proven effective in the absence of a shortened cervix and should not be considered as an alternative to 17-OHPC. Intramuscular 17-OHPC is not recommended for the primary prevention of in patients with a history of spontaneous . Dependent upon cervical length measurement, prior history, and past treatment, a discussion of the range of interventions available to prevent a recurrent should occur and a collaborative action plan should be developed. Serial cervical length surveillance via transvaginal ultrasound would also be recommended, at least every 2 weeks between 16 and 23 weeks. In the event that her cervical length was to become less than 25 mm during this period of surveillance, she would be a candidate for cerclage placement. Empiric or prophylactic cerclage placement for this patient with a future would not necessarily be recommended. The population that tends to benefit most from this practice would be those who have had a history of mid-trimester losses. Recommendations: 1. Follow-up cervical length be scheduled 2. Recommend to increase p.o. hydration. documented in this encounter [facility] 10-16-2023 History of Presen t illness Narrative Headache/epigastric pain/blurry vision/swelling? No Cramping/contractions? No Abnormal vaginal discharge? No Spotting/vaginal bleeding? No Loss of fluid like your water may have broken? No Cats in the home? No Do you change the litter box? N/A Flu vaccine? No Genetic testing done this here or other office? Yes Have you been seen here at [facility] in a previous ? No Recent ER visits or hospitalizations? No Bring blood sugar log or meter with you today? (Please bring them with you for every visit at [facility]) N/A Traveled outside the country in the past 6 month No Any concerns that you would like me to mention to the provider today? No [facility] Maternal- Medicine Consult Note Reason For Consult: HPI: Екатерина Sutherland is a 28 y.o. @ 20w2d who presented for consultation from Bria Head DO regarding Chief Complaint Patient presents with Hx Oligo Hx Multiple Miscarriages Thyroid Problem She presents today with her mother. She reports that she is doing well. She reports normal movements and she denies LOF, contractions, vaginal bleeding, headache, blurry vision, RUQ pain and edema. The primary encounter diagnosis was High-risk in second trimester. Diagnoses of History of oligohydramnios in prior , currently , 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, and 20 weeks gestation of were also pertinent to this visit. She has had low risk aneuploidy screen for select aneuploidy of chromosomes 21, 13, 18 and sex chromosomes. Review of systems: Review of systems was noncontributory Complications: Problem List Items Addressed This Visit None Visit Diagnoses High-risk in second trimester - Primary History of oligohydramnios in prior , currently 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 20 weeks gestation of PMH: Past Medical History: Diagnosis Date Thyroid disease PSHIST: Past Surgical History: Procedure Laterality Date APPENDECTOMY 2007 OB Hx: OB History Para Term AB Living 5 3 2 1 1 2 SAB IAB Ectopic Multiple Live Births 1 3 # Outcome Date GA Lbr Sean/2nd Weight Sex Delivery Anes PTL Lv 5 Current 4 11/2016 22w0d F Vag-Spont ND Complications: Oligohydramnios 3 Term 10/25/14 38w0d 2.75 kg F Vag-Spont ZI 2 Term 08/14/12 38w0d 3.43 kg M Vag-Spont ZI 1 SAB PREECLAMPSIA SCREEN ([place] Preventive Services Task Force) Patient is at high risk if 1 or more factors present. Incidence of preeclampsia is ? 8%: Prior preeclampsia NO Multiple gestation NO Chronic hypertension NO Type 1 or 2 diabetes NO Renal disease NO Autoimmune disease NO (Lupus, APLS) Patient is at moderate risk is several risk factors are present: Nulliparity NO Obesity (BMI ? 30) NO Family history of preeclampsia NO (Mother, sister) NO Sociodemographic characteristics NO (AA, low socioeconomic status) Age ? 33 NO Personal history factor NO (Previous SGA, adverse outcome, > 10 years from last ) Allergies: No Known Allergies Meds: Prior to Admission medications Medication Sig Start Date End Date Taking? Authorizing Provider levothyroxine (SYNTHROID, LEVOTHROID) 100 MCG tablet Take 1 tablet (100 mcg total) by mouth in the morning. Yes Not In System Ref Prov ondansetron ODT (ZOFRAN ODT) 4 mg disintegrating tablet Dissolve 1 tablet (4 mg total) on tongue every 6 (six) hours as needed for nausea or vomiting. Yes Not In System Ref Prov vit no.115-jwcv-nppxv acid ( VITAMIN) 27 mg iron- 800 mcg tablet Take 1 tablet by mouth in the morning. Yes Not In System Ref Prov progesterone (FIRST-PROGESTERONE VGS) 200 mg suppository Insert 1 suppository (200 mg total) into the vagina nightly. Patient not taking: Reported on 10/16/2023 Not In System Ref Prov SH: Social History Socioeconomic History Marital status: Single Spouse name: Not on file Number of children: Not on file Years of education: Not on file Highest education level: Not on file Occupational History Not on file Tobacco Use Smoking status: Every Day Types: Cigarettes Smokeless tobacco: Never Substance and Sexual Activity Alcohol use: Not Currently Drug use: Not Currently Sexual activity: Not on file Other Topics Concern Not on file Social History Narrative Not on file Social Determinants of Health Financial Resource Strain: Not on file Food Insecurity: No Food Insecurity (10/16/2023) Hunger Screening Food Insecurity - Worry: Never True Food Insecurity - Inability: Never True Transportation Needs: Not on file Physical Activity: Not on file Stress: Not on file Social Connections: Not on file Interpersonal Safety: Not on file Physical Exam: Vital Signs Vitals: 10/16/23 1221 BP: 109/66 Pulse: 79 Weight: 65.3 kg (144 lb) Height: 170.2 cm (5' 7 ) Physical Exam: Gen: Not in acute distress, alert and oriented. Eyes: Pupils equal and reactive Chest: Nonlabored breathing Cardiac: Pulse was regular on vital signs assessment Abdomen: Gravid Skin/extremities: Appears intact. No visible lesions MS:no visible edema Neuro: No focal deficits Assessment/Plan 28 y.o. @ 20w2d here for consultation regardin. High-risk in second trimester Past obstetric history complicated by history of amniotic bands with her 2nd . She reports that her daughter did not have any malformation secondary to the amniotic bands. Her 3rd was complicated by oligohydramnios that was previable. Subsequently she had vaginal bleeding and medically indicated delivery was recommended at that time. She was delivered and as not have records from that delivery to explain the reason for the oligohydramnios. Release of records form was signed today. 2. History of oligohydramnios in prior , currently Sonographic assessment is consistent with normal however limited anatomic evaluation with normal amniotic fluid assessment. Recommend follow-up detailed anatomic assessment in 4 weeks with serial growth assessments every 4 weeks subsequently. 3. 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 Reviewed with her the importance of normal thyroid function for metabolism and considerations during . Reviewed with her that the thyroid gland begins concentrating iodine and producing thyroid hormone by about 11-12 weeks of gestation. It is important for brain development especially before the thyroid begins functioning. Reviewed that euthyroidism is important for development as well as placental function. This is important throughout the whole . Hypothyroidism has been associated with an increased risk of several complications, including but not limited to hypertensive disorders, placental abruption, , growth restriction, and hemorrhage. TSH should be measured every four weeks with a target of <2.5 mU/L. Dr. Bales is following her thyroid hormone levels. Recommend to continue checking every 4 weeks. 4. 20 weeks gestation of High-risk in second trimester [O09.92] Recommendations: Follow-up in 4 weeks for completion of limited anatomy Serial growth assessments every 4 weeks after the anatomy scan Continue serial TSH assessments every 4 weeks Delivery recommended at or after 39 weeks, earlier as clinically indicated Plan reviewed with patient. She vocalized understanding all questions answered. The patient is to continue with routine care in your office [facility], the CDC, and other organizations representing maternal and public health professionals recommend that , , and lactating people and those considering receive the COVID-19 vaccination. Vaccination is the best method to reduce maternal and complications of SARS-CoV-2 infection. This document was created with [employer] technology. Though I make every effort to review the dictation as it is transcribed, on occasion the spoken word can be misinterpreted by the technology leading to inappropriate words, phrases, or sentences. This note is addressed to the requesting provider as a consultation for clinical guidance. Specific medical abbreviations are occasionally used and those are generally approved by the [place]?Board of?Obstetrics and?Gynecology?as well as?James flores abbreviations. The above plan of care was based solely on the diagnoses for which a consultation was requested. ?More frequent testing may be indicated based on her other medical/obstetrical conditions. The management of other or medical conditions is beyond the scope of requested consultation and will continue to be followed by the primary solar[facility] administrator or primary care provider. Thank you for allowing me to participate in her care. Please contact me if you have any concerns. documented in this encounter [facility] 03-16-2022 Note PROCEDURE: XR SHOULD ER RT 2V or > HISTORY: Impingement syndrome of right shoulder region ; acute right shoulder pain, no known injury COMPARISON: None. FINDINGS: BONES:No fracture, acute abnormality, or significant arthropathy. SOFT TISSUES:No visible soft tissue swelling. EFFUSION:None visible. OTHER: Negative. IMPRESSION: 1. Normal examination. Electronically authenticated by: GENI CABRAL Date: 2022-03-16 18:16 [facility] Evaluation note Diagnosis High-risk in second trimester- Primary History of oligohydramnios in prior , currently with other poor obstetric history 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 20 weeks gestation of documented in this encounter [facility]* Diagnosis History of oligohydramnios in prior , currently - Primary with other poor obstetric history documented in this encounter [facility] [employer] SystemInstructionsNot on filedocumented in this encounter [facility] [employer] SystemInstructionsNot on filedocumented in this encounter [facility] [employer] SystemInstructionsNot on filedocumented in this encounter [facility] [employer] SystemInstructionsNot on filedocumented in this encounter [facility] [employer] [facility] Summary Purpose Family History No Family History Records FoundNo Family History Records FoundNo Family History Records Found Advance Directives No Advanced Directives Records FoundNo Advanced Directives Records FoundNo Advanced Directives Records Found Reason for Referral Specialty Diagnoses / Procedures Referred By Bhupendra t Referred To Contact Maternal and Medicine Diagnoses History of oligohydramnios in prior , currently Procedures US MFM with or without consult Haseeb Nice MD [address], [address] [place] [id number] [facility] [address] [place] [address] Referral ID Status Reason Start Date Expiration Date V isits Requested Visits Authorized [id number] Pending Review 10/17/2023 10/16/2024 1 1 Additional Source Comments INFORMATION SOURCE (unrecogn ized section and content) DATE CREATED AUTHOR 01/31/2023 [facility] DATE CREATED AUTHOR AUTHOR'S ORGANIZ ATION 10/10/2023 [facility] EPIC DATE CREATED AUTHOR AUTHOR'S ORGANIZ ATION 10/20/2023 [facility] Reason for Visit (unrecogniz ed section and content) Reason Comments Hx Oligo Hx Multiple Miscarriages Hypothyroidism FOR RECORDS PERTAINING TO PATIENTS WHO ARE OR HAVE BEEN ENROLLED IN A CHEMICAL DEPENDENCY/SUBSTANCEABUSE PROGRAM, SOME INFORMATION MAY BE OMITTED. This clinical summary was aggregated from multiple sources. Caution should be exercised in using it in the provision of clinical care. This summary normalizes information from multiple sources, and as a consequence, information in this document may materially change the coding, format and clinical context of patient data. In addition, data may be omitted in some cases. CLINICAL DECISIONS SHOULD BE BASED ON THE PRIMARY CLINICAL RECORDS. [facility]. provides no warranty or guarantee of the accuracy or completeness of information in this document.
--- NOTE | 2023-10-23 10:53 | US_ITS ---
The [address] [address] Patient Name: JERAMY SWEENEY MRN: [id number] date: 1995 Sex: F Assigned Patient Location: ER Current Patient Location: ER Accession/Order Number: [id number] Exam Date: 10/23/2023 11:00 Report Date: 10/23/2023 11:53 At the request of: DEBBIE WELLS Procedure: US OB cervical length EXAMINATION: US OB amniotic fluid vol, US OB cervical length HISTORY: poss low fluid ; pelvic pressure and cramping COMPARISON: Ultrasound OB transvaginal 07/03/2023 TECHNIQUE: Limited sonographic examination for amniotic fluid volume FINDINGS: Presentation: Breech Heart rate: 153 bpm Placenta: Posterior Amniotic fluid: 17.2 cm (normal range). Cervix: 4.7 cm in length, closed. Other: Contraction within anterior uterine wall noted during examination. Dilated, but patent vessels along the right margin of cervix/lower uterus. GA: 21 weeks 2 days GOOD: 03/02/2024 US/US OB cervical length IMPRESSION: 1. Single live intrauterine . 2. Normal amniotic fluid volume. Electronically authenticated by: GENI CABRAL Date: 10/23/2023 11:53
[2023-10-23 11:02] LABS: Bilirubin Urine NEGATIVE (NEGATIVE); Blood Urine NEGATIVE (NEGATIVE); Clarity Urine CLEAR (CLEAR); Color Urine LT. YELLOW (YELLOW); Glucose Urine UA NEGATIVE (NEGATIVE); Ketones Urine NEGATIVE (NEGATIVE); Leukocyte Esterase Urine NEGATIVE (NEGATIVE); Nitrite Urine NEGATIVE (NEGATIVE); Protein Urine NEGATIVE (NEG/TRACE); Specific Gravity Urine 1.025 (1.005-1.025); Urobilinogen Urine 0.2 EU/dL (0.2-1.0)
[2023-10-23 11:04] LABS: Urine Microscopic Indicated NO
--- NOTE | 2023-10-23 11:05 | US_ITS ---
The [address] [address] Patient Name: JERAMY SWEENEY MRN: [id number] date: 1995 Sex: F Assigned Patient Location: ER Current Patient Location: ER Accession/Order Number: [id number] Exam Date: 10/23/2023 11:00 Report Date: 10/23/2023 11:53 At the request of: DEBBIE WELLS Procedure: US OB amniotic fluid vol EXAMINATION: US OB amniotic fluid vol, US OB cervical length HISTORY: poss low fluid ; pelvic pressure and cramping COMPARISON: Ultrasound OB transvaginal 07/03/2023 TECHNIQUE: Limited sonographic examination for amniotic fluid volume FINDINGS: Presentation: Breech Heart rate: 153 bpm Placenta: Posterior Amniotic fluid: 17.2 cm (normal range). Cervix: 4.7 cm in length, closed. Other: Contraction within anterior uterine wall noted during examination. Dilated, but patent vessels along the right margin of cervix/lower uterus. GA: 21 weeks 2 days GOOD: 03/02/2024 US/US OB amniotic fluid vol IMPRESSION: 1. Single live intrauterine . 2. Normal amniotic fluid volume. Electronically authenticated by: GENI CABRAL Date: 10/23/2023 11:53
[2023-10-23 11:07] LABS: Basophils Percent Auto 0.3 % (0.2-2.0); Eosinophils Percent Auto 0.3 % (0.9-7.0); Hematocrit 30.9 % (36.0-48.0); Hemoglobin 10.3 g/dL (12.0-16.0); Immature Granulocytes Abs Auto 0.02 10^3/uL (0.00-0.03); Immature Granulocytes Pct Auto 0.3 % (0.0-0.5); Lymphocytes Absolute Auto 1.3 10^3/uL (1.2-3.8); Lymphocytes Percent Auto 16.9 % (20.5-60.0); Mean Corpuscular HGB Conc 33.3 g/dL (29.9-35.2); Mean Corpuscular Hemoglobin 32.3 pg (26.7-34.0); Mean Corpuscular Volume 96.9 fL (81.0-99.0); Mean Platelet Volume 10.6 fL (9.5-13.5); Monocytes Absolute Auto 0.4 10^3/uL (0.3-0.8); Monocytes Percent Auto 5.2 % (1.7-12.0); Neutrophils Absolute Auto 6.1 10^3/uL (1.4-6.5); Platelet Count 151 10^3/uL (150-450); Red Blood Count 3.19 10^6/uL (4.20-5.40); Red Cell Distribution Width 13.2 % (11.0-15.0)
--- NOTE | 2023-10-23 12:03 | ED_ITS ---
HPI - General Adult General Chief complaint: Abdominal Pain Stated complaint: PELVIC PRESSURE/ PAIN 21 WKS Time Seen by Provider: 10/23/23 10:52 Source: patient and family Mode of arrival: walk-in Limitations: no limitations History of Present Illness HPI narrative: this patient was sent to the Emergency Room instead of OB because of high volume in the department. She is being followed by [facility] as well as local physician Dr. Bales. She came in today to get it rechecked because some mild cramping. She is not having any bleeding spotting and has not passed any blood. She's not had any urinary symptoms. She is not febrile. Her vital signs here are perfect with blood pressure normal. She does not have any back or flank pain. Related Data Allergies Allergy/AdvReac Type Severity Reaction Status Date / Time No Known Drug Allergies Allergy Verified 10/23/23 10:46 Exam Narrative Exam Narrative: awake alert pleasant vital signs are normal. Her skin is warm dry mucous membranes are moist and pink she does not appear ill. She does not have any difficulty breathing. Examining her extremities there is no peripheral edema. Her deep tendon reflexes at patella are two over four and symmetrical. There is no clonus or spasticity. heart tones were normal taken by the nursing staff here. Constitutional Vital Signs, click to edit/add: Last Vital Signs Temp 98.6 F 10/23/23 10:40 Pulse 109 H 10/23/23 10:40 Resp 18 10/23/23 10:40 BP 112/87 10/23/23 10:40 Pulse Ox 99 10/23/23 10:40 O2 Del Method Room Air 10/23/23 10:40 Course Vital Signs Vital signs: Vital Signs Temperature 98.6 F 10/23/23 10:40 Pulse Rate 109 H 10/23/23 10:40 Respiratory Rate 18 10/23/23 10:40 Blood Pressure 112/87 10/23/23 10:40 Pulse Oximetry 99 10/23/23 10:40 Oxygen Delivery Method Room Air 10/23/23 10:40 Temperature 98.6 F 10/23/23 10:40 Pulse Rate 109 H 10/23/23 10:40 Respiratory Rate 18 10/23/23 10:40 Blood Pressure 112/87 10/23/23 10:40 Pulse Oximetry 99 10/23/23 10:40 Oxygen Delivery Method Room Air 10/23/23 10:40 Medical Decision Making MDM Narrative Medical decision making narrative: patient's ultrasound shows normal amount of amniotic fluid normal cervvical length and no other gross abnormalities. Her urinalysis here is normal. We'll have her follow-up with Dr. Bales. She'll be given a copy of her testing. Lab Data Labs: Lab Results 10/23/23 10/23/23 Range/Units 10:55 11:00 WBC 8.0 (4.0-11.0) 10^3/uL RBC 3.19 L (4.20-5.40) 10^6/uL Hgb 10.3 L (12.0-16.0) g/dL Hct 30.9 L (36.0-48.0) % MCV 96.9 (81.0-99.0) fL MCH 32.3 (26.7-34.0) pg MCHC 33.3 (29.9-35.2) g/dL RDW 13.2 (11.0-15.0) % Plt Count 151 (150-450) 10^3/uL MPV 10.6 (9.5-13.5) fL Neut % (Auto) 77.0 H (43.0-75.0) % Lymph % (Auto) 16.9 L (20.5-60.0) % Pine % (Auto) 5.2 (1.7-12.0) % Eos % (Auto) 0.3 L (0.9-7.0) % Baso % (Auto) 0.3 (0.2-2.0) % Neut # (Auto) 6.1 (1.4-6.5) 10^3/uL Lymph # (Auto) 1.3 (1.2-3.8) 10^3/uL Pine # (Auto) 0.4 (0.3-0.8) 10^3/uL Eos # (Auto) 0.0 (0.0-0.7) 10^3/uL Baso # (Auto) 0.0 (0.0-0.1) 10^3/uL Abs Immat Gran (auto) 0.02 (0.00-0.03) 10^3/uL Imm/Tot Granulo (auto) 0.3 (0.0-0.5) % Urine Color Lt. yellow (YELLOW) Urine Clarity Clear (CLEAR) Urine pH 6.0 (5.0-9.0) Ur Specific Leupp 1.025 (1.005-1.025) Urine Protein Negative (NEG/TRACE) mg/dL Urine Glucose (UA) Negative (NEGATIVE) mg/dL Urine Ketones Negative (NEGATIVE) mg/dL Urine Occult Blood Negative (NEGATIVE) Urine Nitrite Negative (NEGATIVE) Urine Bilirubin Negative (NEGATIVE) Urine Urobilinogen 0.2 (0.2-1.0) EU/dL Ur Leukocyte Esterase Negative (NEGATIVE) Discharge Plan Discharge Chief Complaint: Abdominal Pain Clinical Impression: Intrauterine Patient Disposition: Home, Self-Care Time of Disposition Decision: 12:05 Additional Instructions: follow-up with her local OB or 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 Take a copy of your laboratory results and ultrasound Stand Alone Forms: Portal Instructions Referrals: Physician,Non-Staff, MD [Primary Care Provider] - 1 week
== END 2023-10-23 12:14 | disposition home or self-care (01) ==
PROVIDERS: Emergency Provider Emergency Medicine Emergency Medical Services
DX: O26.892 Other specified pregnancy related conditions, second trimester (principal); R10.9 Unspecified abdominal pain; Z3A.21 21 weeks gestation of pregnancy
CPT/HCPCS: 36415; 76815; 76817; 81003; 85025; 99284

== ENCOUNTER 2023-12-09 07:20 | Outpatient (OUT) | payer OTHER, SELFPAY ==
--- OUTSIDE RECORDS SUMMARY | 2023-12-09 07:28 | XMS_ITS | CCD ---
Author Name Unknown Address [id number] [place] [address] Organization [facility] Care Team Providers Care Educational Psychology Professor Name Role Phone RUSSELL, DR DEBBIE Mohan Attending Unavailabl e REINECK, DR DEBBIE Mohan Admitting Unavailabl e MARCH ., DR MARIS [facility] Primary [facility] Unavailable REINECK, DR DEBBIE Mohan Consulting UnavailCASSANDRA Snider Admitting Unavailable CASSANDRA ROSALES Attending Unavailable KIRSTY ., ABIGAIL RALPH Consulting Unavailabl e MARCH [...] DR FRASER Primary Care Unavailable IRAJ ., ROSANA Attending Unavailable IRAJ ., ROSANA Admitting Unavailable IRAJ ., ROSANA Consulting Unavailable DIAB ., JOANN Attending Unavailable DIAB ., JOANN Admitting Unavailable DIAB ., JOANN Consulting Unavailable MARCH ., DR MARIS [facility] Primary Care Unavailable CASSANDRA ROSALES Admitting Unavailable CASSANDRA ROSALES Consulting Unavailable CASSANDRA ROSALES Attending Unavailable ANCA ., DR MARIS Vail Primary Care Unavailable CASSANDRA ROSALES Admitting Unavailable CASSANDRA ROSALES Consulting Unavailable CASSANDRA ROSALES Attending Unavailable ANCA ., DR MARIS V[facility] Primary Care Unavailable Unavailable Primary Care Provider Unavailabl e YOJANA, BRIA R Referring Unavailable MOHASEEB KAUR Attending Unavailable YOJANA, BRIA R Referring Unavailable YOJANA, BRIA R Referring Unavailable NO PCP, NO PCP Primary Care Unavailable YOJANA, BIRA R Referring Unavailable NO PCP, NO PCP Primary Care Unavailable Unavailable Primary Care Provider Unavailabl e YOJANA, BRIA Attending Unavailable IRAJ, ROSANA Attending Unavailable IRAJROSANA Attending Unavailable BRIA BALES Attending Unavailable Medications Current Medications Medication Drug Class(es) Dates Sig (Normalized) Sig (Original) levothyroxine sodium 0.1 mg oral tablet (8 sources) l-Thyroxine Start: 10-08-2023 End: 04-05-2024 take 1 tablet by mouth once daily levothyroxine (Synthroid, Levoxyl) 100 MCG tablet Indications: Thyroid disease (CMS/HCC) Take 1 tablet (100 mcg) by mouth 1 (one) time each day at the same time 30 tablet 5 10/08/2023 04/05/2024 Active omeprazole 20 mg delayed release oral capsule (2 sources) Proton Pump Inhibitor Start: 10-08-2023 End: 10-07-2024 take 1 capsule by mouth before mealtime omeprazole (PriLOSEC) [address] capsule Indications: Heartburn Take 1 capsule (20 mg) by mouth in the morning. Take before meals. Do not crush or chew.. 30 capsule 11 10/08/2023 10/07/2024 Active ondansetron 4 mg disintegrating oral tablet (6 sources) Serotonin-3 Receptor Antagonist take 1 tablet by mouth every six hours as needed for nausea and vomiting ondansetron ODT (ZOFRAN ODT) 4 mg disintegrating tablet Dissolve 1 tablet (4 mg total) on tongue every 6 (six) hours as needed for nausea or vomiting. 0 Active vit no.878-tfxr-yassx acid ( VITAMIN) 27 mg iron- 800 mcg tablet (6 sources) take 1 tablet by mouth in the morning vit no.502-wzew-rxsst acid ( VITAMIN) 27 mg iron- 800 mcg tablet Take 1 tablet by mouth in the morning. 0 Active Vit-Fe Fumarate-FA ( Plus/Iron) 27-1 MG tablet (2 sources) Start: 10-08-2023 End: 10-07-2024 take 1 tablet by mouth in the morning Vit-Fe Fumarate-FA ( Plus/Iron) 27-1 MG tablet Indications: Missed menses Take 1 tablet by mouth in the morning. 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; Translations: [OTH RESIDENTIAL CURRENT DRUG THERAPY] Onset: 01-23-2023 Episodic Other [...] 10-16-2023 Episodic Other complications of (2 sources) care for patient with recurrent loss, unspecified trimester; Translations: [ care for patient with recurrent loss, unspecified trimester] Onset: 10-16-2023 Episodic Other complications of (1 source) Supervision of high risk , unspecified, second trimester; Translations: [Supervision of high risk , unspecified, second trimester] Onset: 10-16-2023 Episodic Other complications of (2 sources) Supervision of with other poor reproductive or obstetric history, unspecified trimester; Translations: [Supervision of with other poor reproductive or obstetric history, unspecified trimester] Onset: 10-16-2023 Episodic Other complications of (2 sources) Endocrine, nutritional and metabolic diseases complicating , second trimester; Translations: [Endocrine, nutritional and metabolic diseases complicating , second trimester] Onset: 10-16-2023 Episodic Other complications of (1 source) Supervision of other high risk pregnancies, unspecified trimester; Translations: [Supervision of other high risk pregnancies, unspecified trimester] Onset: 10-29-2023 Episodic Other and delivery including normal (5 sources) Encounter for supervision of normal , unspecified, first trimester; Translations: [Second trimester ] Onset: 06-04-2022 11-20-2023 Episodic Other screening for suspected conditions (not mental disorders or infectious disease) (6 sources) Encounter for other specified screening; Translations: [Encounter for screening for cervical length] Onset: 10-16-2023 11-27-2023 Episodic Residual codes; unclassified (1 source) Less than 8 weeks gestation of ; Translations: [< 8 WEEKS GESTATION ] Onset: 01-23-2023 Episodic Residual codes; unclassified (1 source) Gestation period, 20 weeks; Translations: [20 weeks gestation of ] 10-16-2023 Episodic Residual codes; unclassified (1 source) 20 weeks gestation of ; Translations: [20 weeks gestation of ] Onset: 10-16-2023 Episodic Residual codes; unclassified (2 sources) H/O: miscarriage; Translations: [Personal history of other complications of , childbirth and the puerperium] 11-27-2023 Episodic Residual codes; unclassified (2 sources) H/O: Disorder; Translations: [Personal history of other complications of , childbirth and the puerperium] 11-27-2023 Episodic Substance-related disorders (1 source) Nicotine dependence, cigarettes, uncomplicated; Translations: [NICOTINE DEPEND CIGARETTES UNCOMP] Onset: 01-23-2023 Chronic Thyroid disorders (8 sources) Hypothyroidism, unspecified; Translations: [Hypothyroidism] Onset: 03-16-2022 Chronic Unclassified (1 source) PERSONAL HISTORY OF COVID-19; Translations: [PERSONAL HISTORY OF COVID-19] Onset: 01-22-2023 Unclassified (2 sources) COUGH, UNSPECIFIED; Translations: [COUGH, UNSPECIFIED] Onset: 01-09-2023 Unclassified (1 source) Hx Oligo Onset: 10-16-2023 Unclassified (2 sources) OB Reminders Onset: 07-11-2023 07-11-2023 Viral infection (1 source) COVID-19; Translations: [COVID-19] [...] DISORDERS EYE AND ADNEXA] Onset: 03-03-2022 Episodic Unclassified (1 source) COUGH, UNSPECIFIED; Translations: [COUGH, UNSPECIFIED] Onset: 01-08-2023 Results Test Name Value Interpretation Reference Range Facil ity Urinalysis macro (dipstick) panel (U)on 11-27-2023 Bilirubin, UA Negative Negative - 4(70) +++ mg/dL [facility] Blood, UA Negative Negative - 50 Felice/mcL [facility] Clarity, UA Clear [facility] Color, UA Yellow [facility] Glucose, UA Negative Negative - 1999(110) ++++ mg/dL [facility] Interpretation and review of laboratory results Normal [facility] Ketones, UA Negative Negative - 160(16) ++++ mg/dL [facility] Leukocytes, UA Negative Negative - 500+++ Regina/mcL [facility] Nitrite, UA Negative Negative - Positive [facility] pH, UA 5.5 5 - 9 [facility] Protein, UA Negative Negative - 1999(20) ++++ mg/dL [facility] Spec Grav, UA 1.030 1 - 1.[address] [facility] Urobilinogen, UA 0.2 0.2 - 12 mg/dL [facility] PREG QUANT HCGon 01-28-2023 HCG QUANT 17 mIU/mL Normal [facility] Comment on above: Performed By: #### P REGQNT #### [facility] [address] [address] [address] Anna Romero HCG RANGE SEE BELOW Normal [facility] Comment on above: Result Comment: 5-50 0.2-1 WEEK 50-500 1-2 WEEKS 100-5,000 2-3 WEEKS 500-10,000 3-4 WEEKS 1,000-50,000 4-5 WEEKS 10,000-100,000 5-6 WEEKS 15,000-200,000 6-8 WEEKS 10,000-100,000 2-3 MONTHS Performed By: #### P REGQNT #### [facility] [address] [place] [address] Dr. Anna Romero PREG QUANT HCGon 01-23-2023 HCG QUANT 441 mIU/mL Normal [facility] Comment on above: Performed By: #### S SCRN, GRASTCX #### [facility] [address] [place] [address] Dr. Anna Romero HCG RANGE SEE BELOW Normal [facility] Comment on above: Result Comment: 5-50 0.2-1 WEEK 50-500 1-2 WEEKS 100-5,000 2-3 WEEKS 500-10,000 3-4 WEEKS 1,000-50,000 4-5 WEEKS 10,000-100,000 5-6 WEEKS 15,000-200,000 6-8 WEEKS 10,000-100,000 2-3 MONTHS Performed By: #### S SCRN, GRASTCX #### [facility] [address] [place] [address] Dr. Anna Romero ABO AND RH TYPEon 01-21-2023 ABO and Rh group Nom (Bld) ABO Rh Typing A Rh Positive Normal [facility] Comment on above: Performed By: #### S SCRN, GRASTCX #### [facility] [address] [place] [address] Dr. Anna Romero ER URINE PROFILEon 3 Bilirubin Ql (U) Negative Normal NEGATIVE [facility] Comment on above: Performed By: #### JD URIASRO #### [facility] [address] [place] [address] Dr. Anna Romero Clarity (U) CLEAR Normal CLEAR [facility] Comment on above: Performed By: #### Yared BARBOSA UMICRO #### [facility] [address] [place] [address] Dr. Anna Romero Color (U) YELLOW Normal YELLOW [facility] Comment on above: Performed By: #### Yared BARBOSA UMICRO #### [facility] [address] [address] [address] Anna BAER A micrscopic examination will be performed if indicated. Normal [facility] Comment on above: Performed By: #### Yared BARBOSA UMICRO #### [facility] [address] [address] [address] Anna Romero Glucose Ql (U) Negative Normal NEGATIVE [facility] Comment on above: Performed By: #### Yared BARBOSA UMICRO #### [facility] [address] [address] [address] Anna Romero Hemoglobin Ql (U) LARGE Abnormal NEGATIVE [facility] Comment on above: Performed By: #### Yared BARBOSA UMICRO #### [facility] [address] [place] [address] Dr. Anna Romero Ketones Ql (U) Negative Normal NEGATIVE [facility] Comment on above: Performed By: #### Yared BARBOSA UMICRO #### [facility] [address] [place] [address] Dr. Anna Romero LEUKOCYTES Negative Normal NEGATIVE [facility] Comment on above: Performed By: #### Yared BARBOSA UMICRO #### [facility] [address] [place] [address] Dr. Anna Romero Nitrite Ql (U) Negative Normal NEGATIVE [facility] Comment on above: Performed By: #### Yared BARBOSA UMICRO #### [facility] [address] [place] [address] Dr. Anna Romero pH (U) 5.5 [pH] Normal 5-9 [facility] Comment on above: Performed By: #### Yared BARBOSA UMICRO #### [facility] [address] [place] [address] Dr. Anna Romero SPEC GRAVITY >=1.030 Abnormal 1.005-<=1.025 [facility] Comment on above: Performed By: #### Yared BARBOSA UMICRO #### [facility] [address] [place] [address] Dr. Anna Romero UA PROTEIN TRACE Normal NEGATIVE/ TRACE [facility] Comment on above: Performed By: #### JD URIASRO #### [facility] [address] [place] [address] Dr. Anna Romero UR MICRO IND INDICATED Normal [facility] Comment on above: Performed By: #### JD URIASRO #### [facility] [address] [place] [address] Dr. Anna Romero Urobilinogen Qn (U) 0.2 {Joel'U}/dL Normal 0.2 - 1. 0 [facility] Comment on above: Performed By: #### JD URIASRO #### [facility] [address] [place] [address] Dr. Anna Romero PREG QUANT HCGon 01-21-2023 HCG QUANT 1693 mIU/mL Normal [facility] Comment on above: Performed By: #### S CARLA GRASTCX #### [facility] [address] [place] [address] Dr. Anna Romero HCG RANGE SEE BELOW Normal [facility] Comment on above: Result Comment: 5-50 0.2-1 WEEK 50-500 1-2 WEEKS 100-5,000 2-3 WEEKS 500-10,000 3-4 WEEKS 1,000-50,000 4-5 WEEKS 10,000-100,000 5-6 WEEKS 15,000-200,000 6-8 WEEKS 10,000-100,000 2-3 MONTHS Performed By: #### S CARLA, GRASTCX #### [facility] [address] [place] [address] Dr. Anna Romero URINE MICROSCOPIC ONLYon BACTERIA TRACE Abnormal NONE SEEN [facility] Comment on above: Performed By: #### FANG URIASICRO #### [facility] [address] [place] [address] Dr. Anna Romero Bacteria identified Cx Nom (U) NOT INDICATED Normal [facility] Comment on above: Performed By: #### JD URIASRO #### [facility] [address] [place] [address] Dr. Anna Romero CAST NONE SEEN Normal NONE SEEN [facility] Comment on above: Performed By: #### JD URIASRO #### [facility] [address] [place] [address] Dr. Anna Romero Crystals LM Nom (Urine sed) NONE SEEN Normal NONE SEEN [facility] Comment on above: Performed By: #### JD URIASRO #### [facility] [address] [place] [address] Dr. Anna Romero Epithelial cells LM Ql (Urine sed) RARE Normal NONE SEEN /RARE [facility] Comment on above: Performed By: #### JD URIASRO #### [facility] [address] [place] [address] Dr. Anna Romero MUCOUS TRACE Abnormal NONE SEEN [facility] Comment on above: Performed By: #### JD URIASRO #### [facility] [address] [place] [address] Dr. Anna Romero RBC 2-5 Abnormal 0-2 [facility] Comment on above: Performed By: #### JD URIASRO #### [facility] [address] [place] [address] Dr. Anna Romero WBC 0-2 Abnormal NONE SEEN [facility] Comment on above: Performed By: #### JD URIASRO #### [facility] [address] [place] [address] Dr. Anna Romero US PREG TVon 01-21-2023 [...] JEAN BAPTISTE Date: 2023-01-21 16:54 Normal [facility] ER URINE PROFILEon 3 Bilirubin Ql (U) Negative Normal NEGATIVE [facility] Comment on above: Performed By: #### E RUR #### [facility] [address] [place] [address] Dr. Anna Romero Clarity (U) CLEAR Normal CLEAR [facility] Comment on above: Performed By: #### E RUR #### [facility] [address] [place] [address] Dr. Anna Romero Color (U) YELLOW Normal YELLOW [facility] Comment on above: Performed By: #### E RUR #### [facility] [address] [place] [address] Dr. Anna Romero ERUAHD A micrscopic examination will be performed if indicated. Normal [facility] Comment on above: Performed By: #### E RUR #### [facility] [address] [place] [address] Dr. Anna Romero Glucose Ql (U) Negative Normal NEGATIVE [facility] Comment on above: Performed By: #### E RUR #### [facility] [address] [place] [address] Dr. Anna Romero Hemoglobin Ql (U) Negative Normal NEGATIVE [facility] Comment on above: Performed By: #### E RUR #### [facility] [address] [place] [address] Dr. Anna Romero Ketones Ql (U) Negative Normal NEGATIVE [facility] Comment on above: Performed By: #### E RUR #### [facility] [address] [place] [address] Dr. Anna Romero LEUKOCYTES Negative Normal NEGATIVE [facility] Comment on above: Performed By: #### E RUR #### [facility] [address] [place] [address] Dr. Anna Romero Nitrite Ql (U) Negative Normal NEGATIVE [facility] Comment on above: Performed By: #### E RUR #### [facility] [address] [place] [address] Dr. Anna Romero pH (U) 6.5 [pH] Normal 5-9 [facility] Comment on above: Performed By: #### E RUR #### [facility] [address] [place] [address] Dr. Anna Romero SPEC GRAVITY 1.025 Normal 1.005-<=1.025 [facility] Comment on above: Performed By: #### E RUR #### [facility] [address] [place] [address] Dr. Anna Romero UA PROTEIN TRACE Normal NEGATIVE/ TRACE [facility] Comment on above: Performed By: #### E RUR #### [facility] [address] [place] [address] Dr. Anna Romero UR MICRO IND NOT INDICATED Normal [facility] Comment on above: Performed By: #### E RUR #### [facility] [address] [place] [address] Dr. Anna Romero Urobilinogen Qn (U) 0.2 {Joel'U}/dL Normal 0.2 - 1. 0 [facility] Comment on above: Performed By: #### E RUR #### [facility] [address] [address] [address] Anna Romero GROUP A STREP CULTUREon 12-13 S. pyogenes Ag Ql (Unsp spec) Culture Observations: NEGATIVE FOR GROUP A STREPTOCOCCUS. Normal [facility] Comment on above: Performed By: #### S SCRN, GRASTCX #### [facility] [address] [address] [address] Anna Romreo STREPT SCREENon 01-08-2023 STREP SCREEN A Negative Normal NEGATIVE [facility] Comment on above: Performed By: #### S SCRN, GRASTCX #### [facility] [address] [place] [address] Dr. Anna Romero SYMPTOMATIC COVID-19 ANTIGEN on 01-08-2023 EUA Statement SEE BELOW Normal [facility] Comment on above: Result Comment: This test [...] Performed By: #### S SCRN, GRASTCX #### [facility] [address] [place] [address] Dr. Anna Romero SARS-CoV-2 (COVID-19) RNA DAVY+probe Ql (Unsp spec) Positive Abnormal NEGATIVE [facility] Comment on above: Performed By: #### S SCRN, GRASTCX #### [facility] [address] [place] [address] Dr. Anna Romero US PREG TVon 05-31-2022 [...] GENI CABRAL Date: 2022-05-31 19:46 Normal [facility] BILIRUBIN TOTALon 03-16-2022 Bilirubin [Mass/Vol] 0.3 mg/dL Normal 0.2-1.0 [facility] Comment on above: Performed By: #### T DALE #### [facility] [address] [place] [address] Dr. Anna Romero CBC AUTO DIFFon 03-16-2022 BASO # 0.0 103/ul Normal 0.0-0.1 [facility] Comment on above: Performed By: #### C BC #### [facility] [address] [place] [address] Dr. Anna Romero Basophils/100 WBC (Bld) 0.4 % Normal 0.2-2.0 [facility] Comment on above: Performed By: #### C BC #### [facility] [address] [place] [address] Dr. Anna Romero EO # 0.0 103/ul Normal 0.0-0.7 [facility] Comment on above: Performed By: #### C BC #### [facility] [address] [place] [address] Dr. Anna Romero Eosinophils/100 WBC (Bld) 0.2 % Critically low 0.9-7.0 [facility] Comment on above: Performed By: #### C BC #### [facility] [address] [place] [address] Dr. Anna Romero Erythrocyte distribution width (RBC) [Ratio] 12.8 % Normal 11.0-15.0 [facility] Comment on above: Performed By: #### C BC #### [facility] [address] [place] [address] Dr. Anna Romero Hematocrit (Bld) [Volume fraction] 39.2 % Normal 36.0-48.0 [facility] Comment on above: Performed By: #### C BC #### [facility] [address] [place] [address] Dr. Anna Romero Hemoglobin (Bld) [Mass/Vol] 12.9 g/dL Normal 12.0-16.0 [facility] Comment on above: Performed By: #### C BC #### [facility] [address] [place] [address] Dr. Anna Romero IG # 0.01 10e3/ul Normal 0.00-0.03 [facility] Comment on above: Performed By: #### C BC #### [facility] [address] [place] [address] Dr. Anna Romero IG % 0.2 % Normal 0.0-0.5 [facility] Comment on above: Performed By: #### C BC #### [facility] [address] [place] [address] Dr. Anna Romero LYMPH # 1.6 103/ul Normal 1.2-3.8 [facility] Comment on above: Performed By: #### C BC #### [facility] [address] [place] [address] Dr. Anna Romero Lymphocytes/100 WBC (Bld) 29.8 % Normal 20.5-60.0 [facility] Comment on above: Performed By: #### C BC #### [facility] [address] [place] [address] Dr. Anna Romero MANUAL DIFF REQ NO Normal [facility] Comment on above: Performed By: #### C BC #### [facility] [address] [place] [address] Dr. Anna Romero MCH (RBC) [Entitic mass] 31.8 pg Normal 26.7-34.0 [facility] Comment on above: Performed By: #### C BC #### [facility] [address] [address] [address] Anna Romero MCHC (RBC) [Mass/Vol] 32.9 g/dL Normal 29.9-35.2 [facility] Comment on above: Performed By: #### C BC #### [facility] [address] [address] [address] Anna Romero MCV (RBC) [Entitic vol] 96.6 fL Normal 81.0-99.0 [facility] Comment on above: Performed By: #### C BC #### [facility] [address] [place] [address] Dr. Anna Romero MONO # 0.4 103/ul Normal 0.3-0.8 [facility] Comment on above: Performed By: #### C BC #### [facility] [address] [place] [address] Dr. Anna Romero Monocytes/100 WBC (Bld) 7.2 % Normal 1.7-12.0 [facility] Comment on above: Performed By: #### C BC #### [facility] [address] [place] [address] Dr. Anna Romero NEUT # 3.3 103/ul Normal 1.4-6.5 [facility] Comment on above: Performed By: #### C BC #### [facility] [address] [place] [address] Dr. Anna Romero Neutrophils/100 WBC (Bld) 62.2 % Normal 43.0-75.0 [facility] Comment on above: Performed By: #### C BC #### [facility] [address] [place] [address] Dr. Anna Romero Platelet mean volume (Bld) [Entitic vol] 10.0 fL Normal 9.5-13.5 [facility] Comment on above: Performed By: #### C BC #### [facility] [address] [place] [address] Dr. Anna Romero PLT 153 103/ul Normal 150-450 [facility] Comment on above: Performed By: #### C BC #### [facility] [address] [place] [address] Dr. Anna Romero RBC 4.06 106/ul Critically low 4.20-5.40 [facility] Comment on above: Performed By: #### C BC #### [facility] [address] [place] [address] Dr. Anna Romero WBC 5.3 103/ul Normal 4.0-11.0 [facility] Comment on above: Performed By: #### C BC #### [facility] [address] [place] [address] Dr. Anna Romero FREE T3on 03-16-2022 FREE T3 3.18 pg/mlL Normal 2.18-3.98 [facility] Comment on above: Performed By: #### S SCREleanor GRASTCX #### [facility] [address] [place] [address] Dr. Anna Romero FREE T4on 03-16-2022 Free T4 [Mass/Vol] 1.08 ng/dL Normal 0.76-1.[address] [facility] Comment on above: Performed By: #### F T4 #### [facility] [address] [place] [address] Dr. Anna Romero PROF 14(COMP METB)on 022 Albumin [Mass/Vol] 4.3 g/dL Normal 3.4-5.[address] [facility] Comment on above: Performed By: #### S SCRN GRASTCX #### [facility] [address] [place] [address] Dr. Anna Romero Albumin/Globulin [Mass ratio] 1.2 {ratio} Normal [facility] Comment on above: Performed By: #### S CARLA GRASTCX #### [facility] [address] [place] [address] Dr. Anna Romero ALP [Catalytic activity/Vol] 60 U/L Normal 46-116 [facility] Comment on above: Performed By: #### S CARLA GRASTCX #### [facility] [address] [place] [address] Dr. Anna Romero ALT [Catalytic activity/Vol] 25 U/L Normal 14-59 [facility] Comment on above: Performed By: #### S MOISEN, GRASTCX #### [facility] [address] [address] [address] Anna Romero Anion gap [Moles/Vol] 13.8 mmol/L Normal [facility] Comment on above: Performed By: #### S SCRN, GRASTCX #### [facility] [address] [address] [address] Anna Romero AST [Catalytic activity/Vol] 21 U/L Normal 15-37 [facility] Comment on above: Performed By: #### S CARLA, GRASTCX #### [facility] [address] [address] [address] Anna Romero Calcium [Mass/Vol] 9.4 mg/dL Normal 8.5-10.1 [facility] Comment on above: Performed By: #### S CARLA, GRASTCX #### [facility] [address] [address] [address] Anna Romero Chloride [Moles/Vol] 101 mmol/L Normal 98-107 [facility] Comment on above: Performed By: #### S CARLA, GRASTCX #### [facility] [address] [place] [address] Dr. Anna Romero CO2 [Moles/Vol] 26.8 mmol/L Normal 21.0-32.0 [facility] Comment on above: Performed By: #### S SCRN, GRASTCX #### [facility] [address] [address] [address] Anna Romero Creatinine [Mass/Vol] 0.87 mg/dL Normal 0.55-1.02 [facility] Comment on above: Performed By: #### S MOISEN, GRASTCX #### [facility] [address] [address] [address] Anna Romero EGFR-AF RWANDAN >60 Normal >=60 [facility] Comment on above: Performed By: #### S SCRN, GRASTCX #### [facility] [address] [address] [address] Anna Romero EGFR-NON AF RWANDAN >60 Normal >=60 [facility] Comment on above: Performed By: #### S SCRN, GRASTCX #### [facility] [address] [address] [address] Anna Romero Globulin (S) [Mass/Vol] 3.5 g/dL Normal [facility] Comment on above: Performed By: #### S SCRN, GRASTCX #### [facility] [address] [address] [address] Anna Romero Glucose [Mass/Vol] 80 mg/dL Normal 74-[address] [facility] Comment on above: Performed By: #### S SCRN, GRASTCX #### [facility] [address] [address] [address] Anna Romero Potassium [Moles/Vol] 3.6 mmol/L Normal 3.5-5.1 [facility] Comment on above: Performed By: #### S SCRN, GRASTCX #### [facility] [address] [address] [address] Anna Romero Protein [Mass/Vol] 7.8 g/dL Normal 6.4-8.[address] [facility] Comment on above: Performed By: #### S SCRN, GRASTCX #### [facility] [address] [address] [address] Anna Romero Sodium [Moles/Vol] 138 mmol/L Normal 136-[address] [facility] Comment on above: Performed By: #### S SCRN, GRASTCX #### [facility] [address] [address] [address] Anna Romero Urea nitrogen [Mass/Vol] 12.0 mg/dL Normal 7.0-18.0 [facility] Comment on above: Performed By: #### S SCRN, GRASTCX #### [facility] [address] [address] [address] Anna Romero Urea nitrogen/Creatinine [Mass ratio] 13.8 mg/mg Normal [facility] Comment on above: Performed By: #### S SCRN, GRASTCX #### [facility] [address] [place] [address] Dr. Anna Romero TSHon 03-16-2022 TSH 2.442 uIU/mL Normal 0.358-3.740 [facility] Comment on above: Performed By: #### S SCRN, GRASTCX #### [facility] [address] [place] [address] Dr. Anna Romero TSH RANGE SEE BELOW Normal [facility] Comment on above: Result Comment: <0.3 4 UIU/ml HYPERTHYROID 0.34-5.60 UIU/ml EUTHYROID >5.60 UIU/ml HYPOTHYROID Performed By: #### S SCRN, GRASTCX #### [facility] [address] [place] [address] Dr. Anna Romero Vital Signs Date Time Vital Sign Value Performing Clinician Brock chavez 11-27-2023 14:46-0500 Body mass index (BMI) [Ratio] 25.66 kg/m2 Rosana HAYES Work Phone: [facility] 11-27-2023 14:46-0500 Body weight 72.12 kg Rosana HAYES Work Phone: [facility] 11-27-2023 14:46-0500 Diastolic blood pressure 60 mm[Hg] Rosana HAYES Work Phone: [facility] 11-27-2023 14:46-0500 Systolic blood pressure 102 mm[Hg] Rosana HAYES Work Phone: [facility] 10-16-2023 12:21-0500 Body height 170.2 cm Haseeb Nice MD Work Phone: [facility] 10-16-2023 12:21-0500 Body mass index (BMI) [Ratio] 22.55 kg/m2 Haseeb Nice MD Work Phone: [facility] 10-16-2023 12:21-0500 Body weight 65.32 kg Haseeb Nice MD Work Phone: [facility] 10-16-2023 12:21-0500 Diastolic blood pressure 66 mm[Hg] Haseeb Nice MD Work Phone: [facility] 10-16-2023 12:21-0500 Heart rate 79 /min Haseeb Nice MD Work Phone: [facility] 10-16-2023 12:21-0500 Systolic blood pressure 109 mm[Hg] Haseeb Nice MD Work Phone: [facility] Encounters Encounter Date Encounter Type Care Provider Facility Start: 11-27-2023 End: 11-27-2023 ambulatory ROSANA GALO Not Available Start: 11-27-2023 End: 11-27-2023 Office outpatient visit 15 minutes Rosana HAYES Work Phone: [facility] Comment on above: Second trimester pre gnancy; with normal glucose tolerance test (GTT); Diabetes mellitus screening; History of miscarriage; History of oligohydramnios Start: 11-19-2023 End: 11-20-2023 ambulatory BRIA R [facility] Start: 10-29-2023 End: 10-30-2023 ambulatory BRIA R [facility] Start: 10-28-2023 End: 10-28-2023 ambulatory BRIA YOJANA Not Available Start: 10-22-2023 Documentation procedure Haseeb Nice MD Work Phone: [facility] Start: 10-22-2023 Telephone encounter Rachelle TREJO [facility] Start: 10-21-2023 Chart abstracting Aliya berger MD Work Phone: [facility] Start: 10-17-2023 Orders Only Robbi Rodriguez CMA [facility] Comment on above: History of oligohydr amnios in prior , currently (Primary Dx) Start: 10-16-2023 End: 10-17-2023 ambulatory BRIA R YOJANA [facility] Start: 10-16-2023 End: 10-16-2023 Office outpatient new 45 minutes Hind Darius Nice MD Work Phone: [facility] Comment on above: High-risk in second trimester (Primary Dx); History of oligohydramnios in prior , currently ; 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; 20 weeks gestation of Start: 10-15-2023 Chart abstracting Scanning Pro vider External [facility] Start: 10-08-2023 End: 10-08-2023 ambulatory BRIA BALES Not Available Start: 09-09-2023 End: 09-09-2023 ambulatory ROSANA GALO Not Available Start: 01-28-2023 End: 01-29-2023 [...] 03-03-2022 End: 03-03-2022 ambulatory CASSANDRA ROSALES Facility:H1 Procedures Date Procedure Procedure Detail Performing Clinician Start: 11-27-2023 Urnls dip stick/tabl et rgnt non-auto w/o micrscp Rosana HAYES Work Phone: Plan of Treatment Date Care Activity Detail Author Start: 10-20-2032 DTaP,Tdap and Td Vaccines (9 - Td or Tdap) DTaP,Tdap and Td Vaccines (9 - Td or Tdap) [facility] Start: 10-17-2024 End: 10-17-2024 US MFM with or without consult US MFM with or without consult Imaging Routine History of oligohydramnios in prior , currently Expected: 10/17/2024 (Approximate), Expires: 10/17/2024 [facility] Work Phone: Comment on above: Expected: 10/17/2024 (Approximate), Expires: 10/17/2024 Start: 10-16-2024 Adult BMI Screening Adult BMI Screen ing [facility] Start: 10-16-2024 Tobacco Screening Tobacco Screening [facility] Start: 12-11-2023 End: 12-11-2023 Patient encounter procedure 12/11/2023 10:20 AM EST Routine [facility] [address] [place] [id number] Bria Bales, DO [address] [place] [address] [facility] Start: 11-27-2023 End: 11-27-2024 CBC panel - Blood by Automated count CBC Lab Routine Diabetes mellitus screening Expected: 11/27/2023 (Approximate), Expires: 11/27/2024 [facility] Work Phone: Comment on above: Expected: 11/27/2023 (Approximate), Expires: 11/27/2024 Start: 11-27-2023 End: 11-27-2024 Measurement of glucose 1 hour after glucose challenge for glucose tolerance test Glucose tolerance, 1 hour Lab Routine Diabetes mellitus screening Expected: 11/27/2023 (Approximate), Expires: 11/27/2024 [facility] Comment on above: Expected: 11/27/2023 (Approximate), Expires: 11/27/2024 Start: 11-27-2023 End: 11-27-2024 US biophysical profile w non stress test US biophysical profile w non stress test Imaging Routine History of miscarriage History of oligohydramnios Expected: 11/27/2023 (Approximate), Expires: 11/27/2024 [facility] Comment on above: Expected: 11/27/2023 (Approximate), Expires: 11/27/2024 Start: 11-27-2023 End: 11-27-2024 US for US OB SCAN FOR GROWTH Imaging Routine History of miscarriage History of oligohydramnios Expected: 11/27/2023 (Approximate), Expires: 11/27/2024 [facility] Comment on above: Expected: 11/27/2023 (Approximate), Expires: 11/27/2024 Start: 11-19-2023 End: 11-19-2023 Patient encounter procedure 11/19/2023 9:15 AM EST Appointment [facility] [address] [place] [address] [facility] Start: 10-29-2023 End: 10-29-2023 Patient encounter procedure 10/29/2023 9:15 AM EST Appointment [facility] [address] [place] [address] [facility] Start: 10-16-2023 End: 10-16-2023 Patient encounter procedure 10/16/2023 1:00 PM EST Office Visit [facility] [address] [place] [address] Haseeb Nice MD [address] [address] [facility] Start: 10-16-2023 Subsequent hospital visit by physician 10/16/2023 11:30 AM EST Hospital Encounter [facility] [address] [place] [address] [facility] Start: 06-14-2023 Influenza vaccination Influenza Vacc ine [facility] Start: 2014 Screening for malignant neoplasm of cervix Pap Smear [facility] Start: 2012 DTaP,Tdap and Td Vaccines (1 - Tdap) DTaP,Tdap and Td Vaccines (1 - Tdap) [facility] Start: 2011 Adult BMI Screening Adult BMI Screen ing [facility] Start: 2005 Depression Screening Depression Scre ening [facility] Start: 2005 Tobacco Screening Tobacco Screening [facility] Start: 1993 Tobacco Counseling Tobacco Counselin g [facility] Payers Date Payer Category Payer Medicaid [id number] 1993 Unknown [id number] 2.16.84 [id number] 1993 Unknown [id number] 2.16.84 0.1.505303.3.579.2.593 1993 Unknown [id number] 2.16.84 0.1.185920.3.579.2.593 1993 Unknown [id number] 2.16.84 0.1.534899.3.579.2.593 1993 Unknown [id number] 2.16.84 0.1.051297.3.579.2.593 1993 Unknown [id number] 2.16.84 0.1.833128.3.579.2.593 1993 Unknown [id number] 2.16.84 0.1.559132.3.579.2.593 1993 Unknown [id number] 2.16.84 0.1.149415.3.579.2.593 1993 Unknown [id number] 2.16.84 0.1.279879.3.579.2.593 1993 Unknown [id number] 2.16.84 0.1.921204.3.579.2.593 1993 Unknown [id number] 2.16.84 0.1.620880.3.579.2.593 1993 Unknown [id number] 2.16.84 0.1.493256.3.579.2.593 1993 Unknown [id number] 2.16.84 0.1.140198.3.579.2.1286 1993 Unknown [id number] 2.16.84 0.1.304571.3.579.2.1286 1993 Unknown [id number] 2.16.8 40.1.057907.3.579.2.1286 1993 Unknown [id number] 2.16.84 0.1.604706.3.579.2.1286 1993 Unknown [id number] 2.16.84 0.1.901652.3.579.2.1259 1993 Unknown [id number] 2.16.84 0.1.462072.3.579.2.1259 1993 Unknown [id number] 2.16.840 .1.283684.3.579.2.1259 1993 Unknown [id number] 2.16.840 .1.138183.3.579.2.1259 1959 Self-pay [id number] 1959 Unknown [id number] 1959 Unknown [id number] Social History Date Type Detail Facility Start: 10-15-2023 Tobacco smoking status TXIS Tobacco smoking consumption unknown [facility] Start: 03-23-2019 End: 10-16-2023 History of Social function [facility] Start: 03-23-2019 End: 10-16-2023 Housing Instability [facility] Housing Instability Unknown [facility] Start: 06-10-2023 [facility] Start: 1995 Sex Assigned At Not on file [facility] Start: 10-16-2023 Tobacco smoking status TXIS Smokes tobacco daily [facility] History of tobacco use Cigarette Smoker [facility] Start: 10-16-2023 Tobacco use and exposure Smokeless tobacco non-user [facility] Start: 10-16-2023 End: 10-21-2023 Alcohol intake Ex-drinker (finding) [facility] Start: 1995 Sex Assigned At Female [facility] Start: 08-07-2023 Gender identity Identifies as female gender (finding) [facility] Start: 08-07-2023 Sexual orientation Heterosexual (finding) [facility] Goals Date Patient Goal Desired Activity /State Personal health goal Clinical Notes 03-16-2022 to 11-27-2023 Rosana Galo, PA - 11/27/2023 2:30 PM ESTTelephone Encounter - Rachelle Mullen, PARI - 10/22/2023 12:28 PM ESTTelephone Encounter - Rachelle Mullen, AIR TESTER - 10/22/2023 12:28 PM EST Note Date & Type Note Facility 11-27-2023 History of Presen t illness Narrative Reason for Appointment: Patient ID: Екатерина Sutherland is a 28 y.o. female who presents for Routine Visit Patient presents today for Return OB appointment. Current Medications: has a current medication list which includes the following prescription(s): levothyroxine, omeprazole, and plus/iron. Medical History: Active Ambulatory Problems Diagnosis Date Noted No Active Ambulatory Problems Resolved Ambulatory Problems Diagnosis Date Noted No Resolved Ambulatory Problems Past Medical History: Diagnosis Date Missed menses Non-compliant patient Smoker Thyroid disease (CMS/HCC) No family history on file. Social History Tobacco Use Smoking status: Not on file Smokeless tobacco: Not on file Substance Use Topics Alcohol use: Not on file Drug use: Not on file Past Surgical History: Procedure Laterality Date APPENDECTOMY 2007 No Known Allergies Review of Systems: Review of Systems Constitutional: Negative. HENT: Negative. Eyes: Negative. Respiratory: Negative. Cardiovascular: Negative. Gastrointestinal: Negative. Genitourinary: Negative. Musculoskeletal: Negative. Skin: Negative. Neurological: Negative. All other systems reviewed and are negative. Hematological: Negative. Endocrine: Negative. Allergic/Immunologic: Negative. Objective Physical Exam Constitutional: Appearance: Normal appearance. She is normal weight. HENT: Head: Normocephalic. Cardiovascular: Rate and Rhythm: Normal rate. Pulses: Normal pulses. Pulmonary: Effort: Pulmonary effort is normal. Breath sounds: Normal breath sounds. Abdominal: Palpations: Abdomen is soft. Musculoskeletal: General: Normal range of motion. Neurological: General: No focal deficit present. Mental Status: She is alert and oriented to person, place, and time. Psychiatric: Mood and Affect: Mood normal. Behavior: Behavior normal. Thought Content: Thought content normal. Judgment: Judgment normal. Vitals and nursing note reviewed. Vitals: Estimated body mass index is 25.66 kg/m as calculated from the following: Height as of 01/28/23: 5' 6 . Weight as of this encounter: 159 lb. BP: 102/60 Patient's last menstrual period was 05/14/2023. Assessment/Plan Encounter Diagnoses Name Primary? Second trimester with normal glucose tolerance test (GTT) Diabetes mellitus screening History of miscarriage History of oligohydramnios Patient presents today for a routine obstetrics appointment. Patient is currently 26w2d . Patient states she is doing well but has complaints of being tired due to current . Patient has verbalizes frequent movement. labor precautions was discussed/given and patient was instructed to perform kick counts three times a day. Follow Up: Patient is to return to office in 2 week for routine OB appointment. Documented by ABIGAIL Chinchilla on behalf of: ABIGAIL Chinchilla documented in this encounter [facility] 10-22-2023 Miscellaneous Notes Formattin g of this note might be different from the original. Please call us back to schedule an ultrasound next week. documented in this encounter [facility] 10-22-2023 Telephone encount er Note Please call us back to schedule an ultrasound next week. [facility] 10-22-2023 History of Presen t illness [...] increase p.o. hydration. documented in this encounter [facility] 10-16-2023 History of Presen t illness Narrative Headache/epigastric pain/blurry vision/swelling? No Cramping/contractions? No Abnormal vaginal discharge? No Spotting/vaginal bleeding? No Loss of fluid like your water may have broken? No Cats in the home? No Do you change the litter box? N/A Flu vaccine? No Genetic testing done this here or other office? Yes Have you been seen here at [facility] in a previous ? No Recent ER visits or hospitalizations? No Bring blood sugar log or meter with you today? (Please bring them with you for every visit at [facility]) N/A Traveled outside the country in the past 6 month No Any concerns that you would like me to mention to the provider today? No [facility] Consult Note Reason For Consult: HPI: Екатерина Sutherland is a 28 y.o. @ 20w2d who presented for consultation from Dr. Bales, Bria Lemos DO regarding Chief Complaint Patient presents with [...] Yes Not In System Ref Prov vit no.488-qhyx-tdwit acid ( VITAMIN) 27 mg iron- 800 [...] continue with routine care in your office [facility], the CDC, and other organizations representing maternal and public health professionals recommend that , , and lactating people and those considering receive the COVID-19 vaccination. Vaccination is the best method to reduce maternal and complications of SARS-CoV-2 infection. This document was created with [employer] technology. Though I make every effort to review the dictation as it is transcribed, on occasion the spoken word can be misinterpreted by the technology leading to inappropriate words, phrases, or sentences. This note is addressed to the requesting provider as a consultation for clinical guidance. Specific medical abbreviations are occasionally used and those are generally approved by the [place]?Board of?Obstetrics and?Gynecology?as well as?James s abbreviations. The above plan of care was based solely on the diagnoses for which a consultation was requested. ?More frequent testing may be indicated based on her other medical/obstetrical conditions. The management of other or medical conditions is beyond the scope of requested consultation and will continue to be followed by the primary nutrition director or primary care provider. Thank you for allowing me to participate in her care. Please contact me if you have any concerns. documented in this encounter [facility] 03-16-2022 Note PROCEDURE: XR SHOULD ER RT 2V or > HISTORY: Impingement syndrome of right shoulder region ; acute right shoulder pain, no known injury COMPARISON: None. FINDINGS: BONES:No fracture, acute abnormality, or significant arthropathy. SOFT TISSUES:No visible soft tissue swelling. EFFUSION:None visible. OTHER: Negative. IMPRESSION: 1. Normal examination. Electronically authenticated by: GENI CABRAL Date: 2022-03-16 18:16 [facility] Evaluation note Diagnosis High-risk in second trimester- Primary History of oligohydramnios in prior , currently with other poor obstetric history 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 20 weeks gestation of [facility] History of oligohydramnios in prior , currently - Primary with other poor obstetric history [facility] Diagnosis Second trimester state, incidental with normal glucose tolerance test (GTT) Diabetes mellitus screening Screening for diabetes mellitus History of miscarriage Personal history of other genital system and obstetric disorders History of oligohydramnios documented in this encounter [facility] HealthcareInstructionsNot on filedocumented in this encounterProFire[facility] SystemInstructionsNot on filedocumented in this encounterProFirelands [facility] SystemInstructionsNot on filedocumented in this encounterProFirelands [facility] SystemInstructionsNot on filedocumented in this encounterProFirelands [facility] Summary Purpose Family History No Family History Records FoundNo Family History Records FoundNo Family History Records FoundNo Family History Records Found Advance Directives No Advanced Directives Records FoundNo Advanced Directives Records FoundNo Advanced Directives Records FoundNo Advanced Directives Records Found Reason for Referral Specialty Diagnoses / Procedures Referred By Bhupendra azar Referred To Contact Maternal and Medicine Diagnoses History of oligohydramnios in prior , currently Procedures [facility] with or without consult Haseeb Nice MD [address] [facility], [address] [place] [id number] [facility] Maternal Med [address] [place] [address] Referral ID Status Reason Start Date Expiration Date V isits Requested Visits Authorized [id number] Pending Review 10/17/2023 10/16/2024 1 1 Additional Source Comments INFORMATION SOURCE (unrecogn ized section and content) DATE CREATED AUTHOR 01/31/2023 [facility] DATE CREATED AUTHOR AUTHOR'S ORGANIZ ATION 10/20/2023 [facility] DATE CREATED AUTHOR AUTHOR'S ORGANIZ ATION 11/24/2023 [facility] DATE CREATED AUTHOR AUTHOR'S ORGANIZ ATION 11/29/2023 [facility] EPIC Reason for Visit (unrecogniz ed section and content) Reason Comments Hx Oligo Hx Multiple Miscarriages Hypothyroidism Reason Comments Routine Visit FOR RECORDS PERTAINING TO PATIENTS WHO ARE [...] BE BASED ON THE PRIMARY CLINICAL RECORDS. [facility]. provides no warranty or guarantee of the accuracy or completeness of information in this document.
--- NOTE | 2023-12-09 14:20 | US_ITS ---
[address] [address] Patient Name: JERAMY SWEENEY MRN: [id number] date: 1995 Sex: F Assigned Patient Location: [facility] Current Patient Location: [facility] Accession/Order Number: [id number] Exam Date: 12/09/2023 14:32 Report Date: 12/09/2023 15:19 At the request of: BRIA DIAL Procedure: US OB BPP w non-stress EXAMINATION: US OB BPP w non-stress HISTORY: Z86.59 HISTORY OF MISCARRIAGE COMPARISON: No relevant comparison available. TECHNIQUE: Ultrasound biophysical profile was performed in the radiology department. non-reactive stress testing was performed by nursing staff in the birthing center. FINDINGS: BREATHING MOVEMENTS: 2.0 GROSS BODY MOVEMENTS: 2.0 TONE: 2.0 QUALITATIVE AMNIOTIC FLUID VOLUME: 2.0 PRESENTATION: BREECH HEART RATE: 145.9 bpm H.B./min AMNIOTIC FLUID VOLUME: 20.8 cm cm GESTATIONAL AGE: 28 weeks 0 days CONCLUSION: Total biophysical profile score: 8.0 Electronically authenticated by: LAFA TEJEDA Date: 12/09/2023 15:19
--- NOTE | 2023-12-09 14:24 | US_ITS ---
[address] [address] Patient Name: JERAMY SWEENEY MRN: [id number] date: 1995 Sex: F Assigned Patient Location: [facility] Current Patient Location: [facility] Accession/Order Number: [id number] Exam Date: 12/09/2023 14:32 Report Date: 12/09/2023 15:20 At the request of: BRIA DIAL Procedure: US OB growth EXAMINATION: US OB growth HISTORY: Z86.59 HISTORY OF MISCARRIAGE COMPARISON: No relevant comparison available. FINDINGS: Heart Rate: 145.9 bpm Amniotic Fluid Volume: 20.8 cm Number: 1.0 Position: Breech presentation, longitudinal lie Maximum Vertical Pocket: 7.5 cm cm 3.7 cm cm 3.7 cm cm 5.8 cm cm BIOMETRY: BPD: 6.9 cm cm; 27 weeks 5 days; 28% HC: 26.7 cmcm; 29 weeks 1 days, 54% AC: 23.7 cm cm; 28 weeks 0 days, 42% FL: 5.2 cm cm; 27 weeks 4 days; 23.1 % % EFW: 1149.7 grams, 2 lbs. 9 oz., 35% FL/AC: 21.8 FL/BPD: 74.9 HC/AC: 1.1 GESTATIONAL AGE: Age by EDC: 28 weeks 0 days GOOD by EDC: 03/02/2024 Age by US: 28 weeks 1 day GOOD by US: 03/01/2024 US/US OB growth IMPRESSION: Normal interval growth Electronically authenticated by: ALFA TEJEDA Date: 12/09/2023 15:20
[2023-12-09 15:09] VITALS: BP 121/60; PULSE 86
--- OUTSIDE RECORDS SUMMARY | 2023-12-12 07:03 | XMS_ITS | CCD ---
Author Name Unknown Address [address] [place] [address] Organization [facility] Care Team Providers Care Outgoing Inspector Name Role Phone RUSSELL, DR DEBBIE Mohan [...] PCP, NO PCP Primary Care Unavailable YOJANA, BRIA R Referring Unavailable NO [...] for nausea or vomiting. 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; Translations: [OTH JAIL CURRENT DRUG THERAPY] Onset: 01-23-2023 Episodic Other [...] UA Negative Negative - 4(70) +++ mg/dL [facility] Blood, UA Negative Negative - 50 Felice/mcL [facility] Clarity, UA Clear [facility] Healthut re Color, UA Yellow [facility] Healthcar e Glucose, UA Negative Negative - 1999(110) ++++ mg/dL [facility] Interpretation and review of laboratory results Normal [facility] Ketones, UA Negative Negative - 160(16) ++++ mg/dL [facility] Leukocytes, UA Negative Negative - 500+++ Regina/mcL [facility] Nitrite, UA Negative Negative - Positive [facility] pH, UA 5.5 5 - 9 [facility] Healthcar e Protein, UA Negative Negative - 1999(20) ++++ mg/dL [facility] Spec Grav, UA 1.030 1 - 1.03 [facility] Urobilinogen, UA 0.2 0.2 - 12 mg/dL [facility] PREG QUANT HCGon 01-28-2023 HCG QUANT 17 mIU/mL Normal [facility] Comment on above: Performed By: #### P REGQNT #### [facility] [address] [address] [address] Anna Romero HCG RANGE SEE BELOW Normal [facility] Comment on above: Result Comment: 5-50 0.2-1 WEEK 50-500 1-2 WEEKS 100-5,000 2-3 WEEKS 500-10,000 3-4 WEEKS 1,000-50,000 4-5 WEEKS 10,000-100,000 5-6 WEEKS 15,000-200,000 6-8 WEEKS 10,000-100,000 2-3 MONTHS Performed By: #### P REGQNT #### [facility] [address] [place] [address] Dr. Anna Romero PREG QUANT HCGon 01-23-2023 HCG QUANT 441 mIU/mL Normal [facility] Comment on above: Performed By: #### S SCRN, GRASTCX #### [facility] [address] [place] [address] Dr. Anna Romero HCG RANGE SEE BELOW Normal [facility] Comment on above: Result Comment: 5-50 0.2-1 WEEK 50-500 1-2 WEEKS 100-5,000 2-3 WEEKS 500-10,000 3-4 WEEKS 1,000-50,000 4-5 WEEKS 10,000-100,000 5-6 WEEKS 15,000-200,000 6-8 WEEKS 10,000-100,000 2-3 MONTHS Performed By: #### S SCRN, GRASTCX #### [facility] [address] [place] [address] Dr. Anna Romero ABO AND RH TYPEon 01-21-2023 ABO and Rh group Nom (Bld) ABO Rh Typing A Rh Positive Normal [facility] Comment on above: Performed By: #### S SCRN, GRASTCX #### [facility] [address] [place] [address] Dr. Anna Romero ER URINE PROFILEon 3 Bilirubin Ql (U) Negative Normal NEGATIVE [facility] Comment on above: Performed By: #### JD URIASRO #### [facility] [address] [place] [address] Dr. Anna Romero Clarity (U) CLEAR Normal CLEAR [facility] Comment on above: Performed By: #### Yared BARBOSA UMICRO #### [facility] [address] [place] [address] Dr. Anna Romero Color (U) YELLOW Normal YELLOW [facility] Comment on above: Performed By: #### Yared BARBOSA UMICRO #### [facility] [address] [address] [address] Anna BAER A micrscopic examination will be performed if indicated. Normal [facility] Comment on above: Performed By: #### Yared BARBOSA UMICRO #### [facility] [address] [address] [address] Anna Romero Glucose Ql (U) Negative Normal NEGATIVE [facility] Comment on above: Performed By: #### Yared BARBOSA UMICRO #### [facility] [address] [address] [address] Anna Romero Hemoglobin Ql (U) LARGE Abnormal NEGATIVE [facility] Comment on above: Performed By: #### Yared BARBOSA UMICRO #### [facility] [address] [place] [address] Dr. Anna Romero Ketones Ql (U) Negative Normal NEGATIVE [facility] Comment on above: Performed By: #### Yared BARBOSA UMICRO #### [facility] [address] [place] [address] Dr. Anna Romero LEUKOCYTES Negative Normal NEGATIVE [facility] Comment on above: Performed By: #### Yared BARBOSA UMICRO #### [facility] [address] [place] [address] Dr. Anna Romero Nitrite Ql (U) Negative Normal NEGATIVE [facility] Comment on above: Performed By: #### aYred BARBOSA UMICRO #### [facility] [address] [place] [address] Dr. Anna Romero pH (U) 5.5 [pH] Normal 5-9 [facility] Comment on above: Performed By: #### Yared BARBOSA UMICRO #### [facility] [address] [place] [address] Dr. Anna Romero SPEC GRAVITY >=1.030 Abnormal 1.005-<=1.025 [facility] Comment on above: Performed By: #### Yared BARBOSA UMICRO #### [facility] [address] [place] [address] Dr. Anna Romero UA PROTEIN TRACE Normal NEGATIVE/ TRACE [facility] Comment on above: Performed By: #### JD URIASRO #### [facility] [address] [place] [address] Dr. Anna Romero UR MICRO IND INDICATED Normal [facility] Comment on above: Performed By: #### JD URIASRO #### [facility] [address] [place] [address] Dr. Anna Romero Urobilinogen Qn (U) 0.2 {Joel'U}/dL Normal 0.2 - 1. 0 [facility] Comment on above: Performed By: #### JD URIASRO #### [facility] [address] [place] [address] Dr. Anna Romero PREG QUANT HCGon 01-21-2023 HCG QUANT 1693 mIU/mL Normal [facility] Comment on above: Performed By: #### S CARLA GRASTCX #### [facility] [address] [place] [address] Dr. Anna Romero HCG RANGE SEE BELOW Normal [facility] Comment on above: Result Comment: 5-50 0.2-1 WEEK 50-500 1-2 WEEKS 100-5,000 2-3 WEEKS 500-10,000 3-4 WEEKS 1,000-50,000 4-5 WEEKS 10,000-100,000 5-6 WEEKS 15,000-200,000 6-8 WEEKS 10,000-100,000 2-3 MONTHS Performed By: #### S CARLA, GRASTCX #### [facility] [address] [place] [address] Dr. Anna Romero URINE MICROSCOPIC ONLYon BACTERIA TRACE Abnormal NONE SEEN [facility] Comment on above: Performed By: #### FANG URIASICRO #### [facility] [address] [place] [address] Dr. Anna Romero Bacteria identified Cx Nom (U) NOT INDICATED Normal [facility] Comment on above: Performed By: #### JD URIASRO #### [facility] [address] [place] [address] Dr. Anna Romero CAST NONE SEEN Normal NONE SEEN [facility] Comment on above: Performed By: #### JD URIASRO #### [facility] [address] [place] [address] Dr. Anna Romero Crystals LM Nom (Urine sed) NONE SEEN Normal NONE SEEN [facility] Comment on above: Performed By: #### JD URIASRO #### [facility] [address] [place] [address] Dr. Anna Romero Epithelial cells LM Ql (Urine sed) RARE Normal NONE SEEN /RARE [facility] Comment on above: Performed By: #### JD URIASRO #### [facility] [address] [place] [address] Dr. Anna Romero MUCOUS TRACE Abnormal NONE SEEN [facility] Comment on above: Performed By: #### JD URIASRO #### [facility] [address] [place] [address] Dr. Anna Romero RBC 2-5 Abnormal 0-2 [facility] Comment on above: Performed By: #### JD URIASRO #### [facility] [address] [place] [address] Dr. Anna Romero WBC 0-2 Abnormal NONE SEEN [facility] Comment on above: Performed By: #### JD URIASRO #### [facility] [address] [place] [address] Dr. Anna Romero US PREG TVon 01-21-2023 [...] JEAN BAPTISTE Date: 2023-01-21 16:54 Normal [facility] ER URINE PROFILEon 3 Bilirubin Ql (U) Negative Normal NEGATIVE [facility] Comment on above: Performed By: #### E RUR #### [facility] [address] [place] [address] Dr. Anna Romero Clarity (U) CLEAR Normal CLEAR [facility] Comment on above: Performed By: #### E RUR #### [facility] [address] [place] [address] Dr. Anna Romero Color (U) YELLOW Normal YELLOW [facility] Comment on above: Performed By: #### E RUR #### [facility] [address] [place] [address] Dr. Anna Romero ERUAHD A micrscopic examination will be performed if indicated. Normal [facility] Comment on above: Performed By: #### E RUR #### [facility] [address] [place] [address] Dr. Anna Romero Glucose Ql (U) Negative Normal NEGATIVE [facility] Comment on above: Performed By: #### E RUR #### [facility] [address] [place] [address] Dr. Anna Romero Hemoglobin Ql (U) Negative Normal NEGATIVE [facility] Comment on above: Performed By: #### E RUR #### [facility] [address] [place] [address] Dr. Anna Romero Ketones Ql (U) Negative Normal NEGATIVE [facility] Comment on above: Performed By: #### E RUR #### [facility] [address] [place] [address] Dr. Anna Romero LEUKOCYTES Negative Normal NEGATIVE [facility] Comment on above: Performed By: #### E RUR #### [facility] [address] [place] [address] Dr. Anna Romero Nitrite Ql (U) Negative Normal NEGATIVE [facility] Comment on above: Performed By: #### E RUR #### [facility] [address] [place] [address] Dr. Anna Romero pH (U) 6.5 [pH] Normal 5-9 [facility] Comment on above: Performed By: #### E RUR #### [facility] [address] [place] [address] Dr. Anna Romero SPEC GRAVITY 1.025 Normal 1.005-<=1.025 [facility] Comment on above: Performed By: #### E RUR #### [facility] [address] [place] [address] Dr. Anna Romero UA PROTEIN TRACE Normal NEGATIVE/ TRACE [facility] Comment on above: Performed By: #### E RUR #### [facility] [address] [place] [address] Dr. Anna Romero UR MICRO IND NOT INDICATED Normal [facility] Comment on above: Performed By: #### E RUR #### [facility] [address] [place] [address] Dr. Anna Romero Urobilinogen Qn (U) 0.2 {Joel'U}/dL Normal 0.2 - 1. 0 [facility] Comment on above: Performed By: #### E RUR #### [facility] [address] [address] [address] Anna Romero GROUP A STREP CULTUREon 12-13 S. pyogenes Ag Ql (Unsp spec) Culture Observations: NEGATIVE FOR GROUP A STREPTOCOCCUS. Normal [facility] Comment on above: Performed By: #### S SCRN, GRASTCX #### [facility] [address] [address] [address] Anna Romero STREPT SCREENon 01-08-2023 STREP SCREEN A Negative Normal NEGATIVE [facility] Comment on above: Performed By: #### S SCRN, GRASTCX #### [facility] [address] [place] [address] Dr. Anna Romero SYMPTOMATIC COVID-19 ANTIGEN on 01-08-2023 EUA Statement SEE BELOW Normal [facility] Comment on above: Result Comment: This [...] Performed By: #### S SCRN, GRASTCX #### [facility] [address] [place] [address] Dr. Anna Romero SARS-CoV-2 (COVID-19) RNA DAVY+probe Ql (Unsp spec) Positive Abnormal NEGATIVE [facility] Comment on above: Performed By: #### S SCRN, GRASTCX #### [facility] [address] [place] [address] Dr. Anna Romero US PREG TVon 05-31-2022 [...] GENI CABRAL Date: 2022-05-31 19:46 Normal [facility] BILIRUBIN TOTALon 03-16-2022 Bilirubin [Mass/Vol] 0.3 mg/dL Normal 0.2-1.0 [facility] Comment on above: Performed By: #### T DALE #### [facility] [address] [place] [address] Dr. Anna Romero CBC AUTO DIFFon 03-16-2022 BASO # 0.0 103/ul Normal 0.0-0.1 [facility] Comment on above: Performed By: #### C BC #### [facility] [address] [place] [address] Dr. Anna Romero Basophils/100 WBC (Bld) 0.4 % Normal 0.2-2.0 [facility] Comment on above: Performed By: #### C BC #### [facility] [address] [place] [address] Dr. Anna Romero EO # 0.0 103/ul Normal 0.0-0.7 [facility] Comment on above: Performed By: #### C BC #### [facility] [address] [place] [address] Dr. Anna Romero Eosinophils/100 WBC (Bld) 0.2 % Critically low 0.9-7.0 [facility] Comment on above: Performed By: #### C BC #### [facility] [address] [place] [address] Dr. Anna Romero Erythrocyte distribution width (RBC) [Ratio] 12.8 % Normal 11.0-15.0 [facility] Comment on above: Performed By: #### C BC #### [facility] [address] [place] [address] Dr. Anna Romero Hematocrit (Bld) [Volume fraction] 39.2 % Normal 36.0-48.0 [facility] Comment on above: Performed By: #### C BC #### [facility] [address] [place] [address] Dr. Anna Romero Hemoglobin (Bld) [Mass/Vol] 12.9 g/dL Normal 12.0-16.0 [facility] Comment on above: Performed By: #### C BC #### [facility] [address] [place] [address] Dr. Anna Romero IG # 0.01 10e3/ul Normal 0.00-0.03 [facility] Comment on above: Performed By: #### C BC #### [facility] [address] [place] [address] Dr. Anna Romero IG % 0.2 % Normal 0.0-0.5 [facility] Comment on above: Performed By: #### C BC #### [facility] [address] [place] [address] Dr. Anna Romero LYMPH # 1.6 103/ul Normal 1.2-3.8 [facility] Comment on above: Performed By: #### C BC #### [facility] [address] [place] [address] Dr. Anna Romero Lymphocytes/100 WBC (Bld) 29.8 % Normal 20.5-60.0 [facility] Comment on above: Performed By: #### C BC #### [facility] [address] [place] [address] Dr. Anna Romero MANUAL DIFF REQ NO Normal [facility] Comment on above: Performed By: #### C BC #### [facility] [address] [place] [address] Dr. Anna Romero MCH (RBC) [Entitic mass] 31.8 pg Normal 26.7-34.0 [facility] Comment on above: Performed By: #### C BC #### [facility] [address] [address] [address] Anna Romero MCHC (RBC) [Mass/Vol] 32.9 g/dL Normal 29.9-35.2 [facility] Comment on above: Performed By: #### C BC #### [facility] [address] [address] [address] Anna Romero MCV (RBC) [Entitic vol] 96.6 fL Normal 81.0-99.0 [facility] Comment on above: Performed By: #### C BC #### [facility] [address] [place] [address] Dr. Anna Romero MONO # 0.4 103/ul Normal 0.3-0.8 [facility] Comment on above: Performed By: #### C BC #### [facility] [address] [place] [address] Dr. Anna Romero Monocytes/100 WBC (Bld) 7.2 % Normal 1.7-12.0 [facility] Comment on above: Performed By: #### C BC #### [facility] [address] [place] [address] Dr. Anna Romero NEUT # 3.3 103/ul Normal 1.4-6.5 [facility] Comment on above: Performed By: #### C BC #### [facility] [address] [place] [address] Dr. Anna Romero Neutrophils/100 WBC (Bld) 62.2 % Normal 43.0-75.0 [facility] Comment on above: Performed By: #### C BC #### [facility] [address] [place] [address] Dr. Anna Romero Platelet mean volume (Bld) [Entitic vol] 10.0 fL Normal 9.5-13.5 [facility] Comment on above: Performed By: #### C BC #### [facility] [address] [place] [address] Dr. Anna Romero PLT 153 103/ul Normal 150-450 [facility] Comment on above: Performed By: #### C BC #### [facility] [address] [place] [address] Dr. Anna Romero RBC 4.06 106/ul Critically low 4.20-5.40 [facility] Comment on above: Performed By: #### C BC #### [facility] [address] [place] [address] Dr. Anna Romero WBC 5.3 103/ul Normal 4.0-11.0 [facility] Comment on above: Performed By: #### C BC #### [facility] [address] [place] [address] Dr. Anna Romero FREE T3on 03-16-2022 FREE T3 3.18 pg/mlL Normal 2.18-3.98 [facility] Comment on above: Performed By: #### S SCREleanor GRASTCX #### [facility] [address] [place] [address] Dr. Anna Romero FREE T4on 03-16-2022 Free T4 [Mass/Vol] 1.08 ng/dL Normal 0.76-1.46 [facility] Comment on above: Performed By: #### F T4 #### [facility] [address] [place] [address] Dr. Anna Romero PROF 14(COMP METB)on 022 Albumin [Mass/Vol] 4.3 g/dL Normal 3.4-5.0 [facility] Comment on above: Performed By: #### S SCRN GRASTCX #### [facility] [address] [place] [address] Dr. Anna Romero Albumin/Globulin [Mass ratio] 1.2 {ratio} Normal [facility] Comment on above: Performed By: #### S CARLA GRASTCX #### [facility] [address] [place] [address] Dr. Anna Romero ALP [Catalytic activity/Vol] 60 U/L Normal 46-116 [facility] Comment on above: Performed By: #### S CARLA GRASTCX #### [facility] [address] [place] [address] Dr. Anna Romero ALT [Catalytic activity/Vol] 25 U/L Normal 14-59 [facility] Comment on above: Performed By: #### S MOISEN, GRASTCX #### [facility] [address] [address] [address] Anna Romero Anion gap [Moles/Vol] 13.8 mmol/L Normal [facility] Comment on above: Performed By: #### S SCRN, GRASTCX #### [facility] [address] [address] [address] Anna Romero AST [Catalytic activity/Vol] 21 U/L Normal 15-37 [facility] Comment on above: Performed By: #### S CARLA, GRASTCX #### [facility] [address] [address] [address] Anna Romero Calcium [Mass/Vol] 9.4 mg/dL Normal 8.5-10.1 [facility] Comment on above: Performed By: #### S CARLA, GRASTCX #### [facility] [address] [address] [address] Anna Romero Chloride [Moles/Vol] 101 mmol/L Normal 98-107 [facility] Comment on above: Performed By: #### S CARLA, GRASTCX #### [facility] [address] [place] [address] Dr. Anna Romero CO2 [Moles/Vol] 26.8 mmol/L Normal 21.0-32.0 [facility] Comment on above: Performed By: #### S SCRN, GRASTCX #### [facility] [address] [address] [address] Anna Romero Creatinine [Mass/Vol] 0.87 mg/dL Normal 0.55-1.02 [facility] Comment on above: Performed By: #### S MOISEN, GRASTCX #### [facility] [address] [address] [address] Anna Romero EGFR-AF CAMBODIAN >60 Normal >=60 [facility] Comment on above: Performed By: #### S SCRN, GRASTCX #### [facility] [address] [address] [address] Anna Romero EGFR-NON AF CAMBODIAN >60 Normal >=60 [facility] Comment on above: Performed By: #### S SCRN, GRASTCX #### [facility] [address] [address] [address] Anna Romero Globulin (S) [Mass/Vol] 3.5 g/dL Normal [facility] Comment on above: Performed By: #### S SCRN, GRASTCX #### [facility] [address] [address] [address] Anna Romero Glucose [Mass/Vol] 80 mg/dL Normal 74-106 [facility] Comment on above: Performed By: #### S SCRN, GRASTCX #### [facility] [address] [address] [address] Anna Romero Potassium [Moles/Vol] 3.6 mmol/L Normal 3.5-5.1 [facility] Comment on above: Performed By: #### S SCRN, GRASTCX #### [facility] [address] [address] [address] Anna Romero Protein [Mass/Vol] 7.8 g/dL Normal 6.4-8.2 [facility] Comment on above: Performed By: #### S SCRN, GRASTCX #### [facility] [address] [address] [address] Anna Romero Sodium [Moles/Vol] 138 mmol/L Normal 136-145 [facility] Comment on above: Performed By: #### S SCRN, GRASTCX #### [facility] [address] [address] [address] Anna Romero Urea nitrogen [Mass/Vol] 12.0 mg/dL Normal 7.0-18.0 [facility] Comment on above: Performed By: #### S SCRN, GRASTCX #### [facility] [address] [address] [address] Anna Romero Urea nitrogen/Creatinine [Mass ratio] 13.8 mg/mg Normal [facility] Comment on above: Performed By: #### S SCRN, GRASTCX #### [facility] [address] [place] [address] Dr. Anna Romero TSHon 03-16-2022 TSH 2.442 uIU/mL Normal 0.358-3.740 [facility] Comment on above: Performed By: #### S SCRN, GRASTCX #### [facility] [address] [place] [address] Dr. Anna Romero TSH RANGE SEE BELOW Normal [facility] Comment on above: Result Comment: <0.3 4 UIU/ml HYPERTHYROID 0.34-5.60 UIU/ml EUTHYROID >5.60 UIU/ml HYPOTHYROID Performed By: #### S SCRN, GRASTCX #### [facility] [address] [place] [address] Dr. Anna Romero Vital Signs Date Time Vital Sign Value Performing Clinician Brock chavez 11-27-2023 14:46-0500 Body mass index (BMI) [Ratio] 25.66 kg/m2 Rosana HAYES Work Phone: [facility] 11-27-2023 14:46-0500 Body weight 72.12 kg Rosana HAYES Work Phone: [facility] 11-27-2023 14:46-0500 Diastolic blood pressure 60 mm[Hg] Rosana HAYES Work Phone: [facility] 11-27-2023 14:46-0500 Systolic blood pressure 102 mm[Hg] Rosana HAYES Work Phone: [facility] 10-16-2023 12:21-0500 Body height 170.2 cm Haseeb Nice MD Work Phone: [facility] 10-16-2023 12:21-0500 Body mass index (BMI) [Ratio] 22.55 kg/m2 Haseeb Nice MD Work Phone: [facility] 10-16-2023 12:21-0500 Body weight 65.32 kg Haseeb Nice MD Work Phone: [facility] 10-16-2023 12:21-0500 Diastolic blood pressure 66 mm[Hg] Haseeb Nice MD Work Phone: [facility] 10-16-2023 12:21-0500 Heart rate 79 /min Haseeb Nice MD Work Phone: [facility] 10-16-2023 12:21-0500 Systolic blood pressure 109 mm[Hg] Haseeb Nice MD Work Phone: [facility] Encounters Encounter Date Encounter Type Care Provider Facility Start: 11-27-2023 End: 11-27-2023 ambulatory ROSANA GALO Not Available Start: 11-27-2023 End: 11-27-2023 Office outpatient visit 15 minutes Rosana HAYES Work Phone: [facility] Comment on above: Second trimester pre gnancy; with normal glucose tolerance test (GTT); Diabetes mellitus screening; History of miscarriage; History of oligohydramnios Start: 11-19-2023 End: 11-20-2023 ambulatory [facility] Start: 10-29-2023 End: 10-30-2023 ambulatory [facility] Start: 10-28-2023 End: 10-28-2023 ambulatory BRIA YOJANA Not Available Start: 10-22-2023 Documentation procedure Haseeb Nice MD Work Phone: [facility] [facility] Start: 10-22-2023 Telephone encounter Rachelle TREJO [facility] Start: 10-21-2023 Chart abstracting Aliya berger MD Work Phone: [facility] Start: 10-17-2023 Orders Only Robbi Rodriguez CMA [facility] r[facility]- Medicine at [facility] Comment on above: History of oligohydr amnios in prior , currently (Primary Dx) Start: 10-16-2023 End: 10-17-[address] [facility] Start: 10-16-2023 End: 10-16-2023 Office outpatient new 45 minutes Hind Darius Nice MD Work Phone: 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 Start: 10-08-2023 End: 10-08-2023 ambulatory BRIA [...] Td Vaccines (9 - Td or Tdap) [facility] Start: 10-17-2024 End: 10-17-2024 US MFM with or without consult US MFM with or without consult Imaging Routine History of oligohydramnios in prior , currently Expected: 10/17/2024 (Approximate), Expires: 10/17/2024 [facility] Work Phone: Comment on above: Expected: 10/17/2024 (Approximate), Expires: 10/17/2024 Start: 10-16-2024 Adult BMI Screening Adult BMI Screen ing [facility] Start: 10-16-2024 Tobacco Screening Tobacco Screening [facility] Start: 12-11-2023 End: 12-11-2023 Patient encounter procedure 12/11/2023 10:20 AM EST Routine [facility] [address] [place] [id number] Bria Bales, DO [address] [place] [address] [facility] Start: 11-27-2023 End: 11-27-2024 CBC panel - Blood by Automated count CBC Lab Routine Diabetes mellitus screening Expected: 11/27/2023 (Approximate), Expires: 11/27/2024 [facility] Work Phone: Comment on above: Expected: 11/27/2023 (Approximate), Expires: 11/27/2024 Start: 11-27-2023 End: 11-27-2024 Measurement of glucose 1 hour after glucose challenge for glucose tolerance test Glucose tolerance, 1 hour Lab Routine Diabetes mellitus screening Expected: 11/27/2023 (Approximate), Expires: 11/27/2024 [facility] Comment on above: Expected: 11/27/2023 (Approximate), Expires: 11/27/2024 Start: 11-27-2023 End: 11-27-2024 US biophysical profile w non stress test US biophysical profile w non stress test Imaging Routine History of miscarriage History of oligohydramnios Expected: 11/27/2023 (Approximate), Expires: 11/27/2024 [facility] Comment on above: Expected: 11/27/2023 (Approximate), Expires: 11/27/2024 Start: 11-27-2023 End: 11-27-2024 US for US OB SCAN FOR GROWTH Imaging Routine History of miscarriage History of oligohydramnios Expected: 11/27/2023 (Approximate), Expires: 11/27/2024 [facility] Comment on above: Expected: 11/27/2023 (Approximate), Expires: 11/27/2024 Start: 11-19-2023 End: 11-19-2023 Patient encounter procedure 11/19/2023 9:15 AM EST Appointment [facility] - Ultrasound [address] [place] [address] [facility] - Ultrasound Start: 10-29-2023 End: 10-29-2023 Patient encounter procedure 10/29/2023 9:15 AM EST Appointment [facility] - Ultrasound [address] [place] [address] [facility] - Ultrasound Start: 10-16-2023 End: 10-16-2023 Patient encounter procedure 10/16/2023 1:00 PM EST Office Visit [facility] [address] [place] [address] Haseeb Nice MD [address] [address] [facility] Start: 10-16-2023 Subsequent hospital visit by physician 10/16/2023 11:30 AM EST Hospital Encounter [facility] [address] [place] [address] [facility] Start: 06-14-2023 Influenza vaccination Influenza Vacc ine [facility] Start: 2014 Screening for malignant neoplasm of cervix Pap Smear [facility] Start: 2012 DTaP,Tdap and Td Vaccines (1 - Tdap) DTaP,Tdap and Td Vaccines (1 - Tdap) [facility] Start: 2011 Adult BMI Screening Adult BMI Screen ing [facility] Start: 2005 Depression Screening Depression Scre ening [facility] Start: 2005 Tobacco Screening Tobacco Screening [facility] Start: 1993 Tobacco Counseling Tobacco Counselin g [facility] Payers Date Payer Category Payer Medicaid [id number] 1993 Unknown [id number] 2.16.84 0.1.011910.3.579.2.593 1993 Unknown [id number] 2.16.84 0.1.015913.3.579.2.593 1993 Unknown [id number] 2.16.84 0.1.061353.3.579.2.593 1993 Unknown [id number] 2.16.84 0.1.161533.3.579.2.593 1993 Unknown [id number] 2.16.84 0.1.330103.3.579.2.593 1993 Unknown [id number] 2.16.84 0.1.472408.3.579.2.593 1993 Unknown [id number] 2.16.84 0.1.473465.3.579.2.593 1993 Unknown [id number] 2.16.84 0.1.013601.3.579.2.593 1993 Unknown [id number] 2.16.84 0.1.746044.3.579.2.593 1993 Unknown [id number] 2.16.84 0.1.125527.3.579.2.593 1993 Unknown [id number] 2.16.84 0.1.357732.3.579.2.593 1993 Unknown [id number] 2.16.84 0.1.422071.3.579.2.593 1993 Unknown [id number] 2.16.84 0.1.583842.3.579.2.1286 1993 Unknown [id number] 2.16.84 0.1.656126.3.579.2.1286 1993 Unknown [id number] 2.16.8 40.1.853094.3.579.2.1286 1993 Unknown [id number] 2.16.84 0.1.074137.3.579.2.1286 1993 Unknown [id number] 2.16.84 0.1.730485.3.579.2.1259 1993 Unknown [id number] 2.16.84 0.1.717156.3.579.2.1259 1993 Unknown [id number] 2.16.840 .1.781461.3.579.2.1259 1993 Unknown [id number] 2.16.840 .1.169205.3.579.2.1259 1959 Self-pay [id number] 1959 Unknown [id number] 1961 Unknown [id number] Social History Date Type Detail Facility Start: 10-15-2023 Tobacco smoking status ARIS Tobacco smoking consumption unknown [facility] Start: 03-23-2019 End: 10-16-2023 History of Social function [facility] Start: 03-23-2019 End: 10-16-2023 Housing Instability [facility] Housing Instability Unknown [facility] Start: 06-10-2023 [facility] Start: 1993 Sex Assigned At Not on file [facility] Start: 10-16-2023 Tobacco smoking status ARIS Smokes tobacco daily [facility] History of tobacco use Cigarette Smoker P [facility] Start: 10-16-2023 Tobacco use and exposure Smokeless tobacco non-user [facility] Start: 10-16-2023 End: 10-21-2023 Alcohol intake Ex-drinker (finding) [facility] Start: 1995 Sex Assigned At Female [facility] Start: 08-07-2023 Gender identity Identifies as female gender (finding) [facility] Start: 08-07-2023 Sexual orientation Heterosexual (finding) [facility] Goals Date Patient Goal Desired Activity /State Personal health goal Clinical Notes 03-16-2022 to 11-27-2023 Rosana Galo, PA - 11/27/2023 2:30 PM ESTTelephone Encounter - Rachelle Mullen, PARI - 10/22/2023 12:28 PM ESTTelephone Encounter - Rachelle Mullen, UNEMPLOYMENT INSURANCE DIRECTOR - 10/22/2023 12:28 PM EST Note Date [...] of: ABIGAIL Chinchilla documented in this encounter [facility] 10-22-2023 Miscellaneous Notes Formattin g of this note might be different from the original. Please call us back to schedule an ultrasound next week. documented in this encounter [facility] 10-22-2023 Telephone encount er Note Please call us back to schedule an ultrasound next week. [facility] 10-22-2023 History of Presen t illness Narrative [...] increase p.o. hydration. documented in this encounter [facility] 10-16-2023 History of Presen t illness Narrative Headache/epigastric pain/blurry vision/swelling? No Cramping/contractions? No Abnormal vaginal discharge? No Spotting/vaginal bleeding? No Loss of fluid like your water may have broken? No Cats in the home? No Do you change the litter box? N/A Flu vaccine? No Genetic testing done this here or other office? Yes Have you been seen here at [facility] in a previous ? No Recent ER visits or hospitalizations? No Bring blood sugar log or meter with you today? (Please bring them with you for every visit at [facility]) N/A Traveled outside the country in [...] Yes Not In System Ref Prov vit no.820-bvmq-hsdil acid ( VITAMIN) 27 mg iron- 800 [...] continue with routine care in your office [facility], the CDC, and other organizations representing maternal and public health professionals recommend that , , and lactating people and those considering receive the COVID-19 vaccination. Vaccination is the best method to reduce maternal and complications of SARS-CoV-2 infection. This document was created with [employer] technology. Though I make every effort to review the dictation as it is transcribed, on occasion the spoken word can be misinterpreted by the technology leading to inappropriate words, phrases, or sentences. This note is addressed to the requesting provider as a consultation for clinical guidance. Specific medical abbreviations are occasionally used and those are generally approved by the [place]?Board of?Obstetrics and?Gynecology?as well as?James s abbreviations. The above plan of care was based solely on the diagnoses for which a consultation was requested. ?More frequent testing may be indicated based on her other medical/obstetrical conditions. The management of other or medical conditions is beyond the scope of requested consultation and will continue to be followed by the primary evp operations or primary care provider. Thank you for allowing me to participate in her care. Please contact me if you have any concerns. documented in this encounter [facility] 03-16-2022 Note PROCEDURE: XR SHOULD ER RT 2V or > HISTORY: Impingement syndrome of right shoulder region ; acute right shoulder pain, no known injury COMPARISON: None. FINDINGS: BONES:No fracture, acute abnormality, or significant arthropathy. SOFT TISSUES:No visible soft tissue swelling. EFFUSION:None visible. OTHER: Negative. IMPRESSION: 1. Normal examination. Electronically authenticated by: GENI CABRAL Date: 2022-03-16 18:16 [facility] Evaluation note Diagnosis High-risk in second trimester- Primary History of oligohydramnios in prior , currently with other poor obstetric history 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 20 weeks gestation of [facility] History of oligohydramnios in prior , currently - Primary with other poor obstetric history [facility] Diagnosis Second trimester state, incidental with normal glucose tolerance test (GTT) Diabetes mellitus screening Screening for diabetes mellitus History of miscarriage Personal history of other genital system and obstetric disorders History of oligohydramnios documented in this encounter [facility]ructionsNot on filedocumented in this encounterProFire[facility] SystemInstructionsNot on filedocumented in this encounterProFirelands [facility] SystemInstructionsNot on filedocumented in this encounterProFirelands [facility] SystemInstructionsNot on filedocumented in this encounterProFirelands [facility] System Summary Purpose Family History No Family [...] oligohydramnios in prior , currently Procedures US [facility] with or without consult Haseeb Nice MD [address] [facility], [address] [place] [address] [facility] [address] [place] [address] Referral ID Status Reason Start Date Expiration Date V isits Requested Visits Authorized [id number] Pending Review 10/17/2023 10/16/2024 1 1 Additional Source Comments INFORMATION SOURCE (unrecogn ized section and content) DATE CREATED AUTHOR 01/31/2023 [facility] DATE CREATED AUTHOR AUTHOR'S ORGANIZ ATION 10/20/2023 [facility] DATE CREATED AUTHOR AUTHOR'S ORGANIZ ATION 11/24/2023 [facility] DATE CREATED AUTHOR AUTHOR'S ORGANIZ ATION 11/29/2023 [facility] EPIC Reason for Visit (unrecogniz ed [...] BE BASED ON THE PRIMARY CLINICAL RECORDS. [facility]. provides no warranty or guarantee of the accuracy or completeness of information in this document.
== END 2023-12-09 15:57 | disposition home or self-care (01) ==
LOC: US 14:11 → FBC 14:16
PROVIDERS: Visit Provider Obstetrics & Gynecology
DX: Z87.59 Personal history of other complications of pregnancy, childbirth and the puerperium (principal); Z3A.28 28 weeks gestation of pregnancy
CPT/HCPCS: 76816; 76818

== ENCOUNTER 2023-12-16 07:50 | Outpatient (OUT) | payer OTHER, SELFPAY ==
--- OUTSIDE RECORDS SUMMARY | 2023-12-16 08:15 | XMS_ITS | CCD ---
Author Name Unknown Address [id number] [place] [address] Organization [facility] Care Team Providers Care Medical Technologist Prn Name Role Phone RUSSELL, DR DEBBIE Mohan [...] for nausea or vomiting. 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] Onset: 01-23-2023 Episodic Other [...] UA Negative Negative - 4(70) +++ mg/dL [facility] Blood, UA Negative Negative - 50 Felice/mcL [facility] Clarity, UA Clear [facility] Color, UA Yellow [facility] Glucose, UA Negative Negative - 1999(110) ++++ mg/dL [facility] Interpretation and review of laboratory results Normal [facility] Ketones, UA Negative Negative - 160(16) ++++ mg/dL [facility] Leukocytes, UA Negative Negative - 500+++ Regina/mcL [facility] Nitrite, UA Negative Negative - Positive [facility] pH, UA 5.5 5 - 9 [facility] Protein, UA Negative Negative - 1999(20) ++++ mg/dL [facility] Spec Grav, UA 1.030 1 - 1.03 [facility] Urobilinogen, UA 0.2 0.2 - 12 mg/dL [facility] PREG QUANT HCGon 01-28-2023 HCG QUANT 17 mIU/mL Normal [facility] Comment on above: Performed By: #### P REGQNT #### [facility] [address] [address] [address] Anna Romero HCG RANGE SEE BELOW Normal [facility] Comment on above: Result Comment: 5-50 0.2-1 WEEK 50-500 1-2 WEEKS 100-5,000 2-3 WEEKS 500-10,000 3-4 WEEKS 1,000-50,000 4-5 WEEKS 10,000-100,000 5-6 WEEKS 15,000-200,000 6-8 WEEKS 10,000-100,000 2-3 MONTHS Performed By: #### P REGQNT #### [facility] [address] [place] [address] Dr. Anna Romero PREG QUANT HCGon 01-23-2023 HCG QUANT 441 mIU/mL Normal [facility] Comment on above: Performed By: #### S SCRN, GRASTCX #### [facility] [address] [place] [address] Dr. Anna Romero HCG RANGE SEE BELOW Normal [facility] Comment on above: Result Comment: 5-50 0.2-1 WEEK 50-500 1-2 WEEKS 100-5,000 2-3 WEEKS 500-10,000 3-4 WEEKS 1,000-50,000 4-5 WEEKS 10,000-100,000 5-6 WEEKS 15,000-200,000 6-8 WEEKS 10,000-100,000 2-3 MONTHS Performed By: #### S SCRN, GRASTCX #### [facility] [address] [place] [address] Dr. Anna Romero ABO AND RH TYPEon 01-21-2023 ABO and Rh group Nom (Bld) ABO Rh Typing A Rh Positive Normal [facility] Comment on above: Performed By: #### S SCRN, GRASTCX #### [facility] [address] [place] [address] Dr. Anna Romero ER URINE PROFILEon 3 Bilirubin Ql (U) Negative Normal NEGATIVE The [facility] Comment on above: Performed By: #### JD URIASRO #### [facility] [address] [place] [address] Dr. Anna Romero Clarity (U) CLEAR Normal CLEAR [facility] Comment on above: Performed By: #### Yared BARBOSA UMICRO #### [facility] [address] [place] [address] Dr. Anna Romero Color (U) YELLOW Normal YELLOW The [facility] Comment on above: Performed By: #### Yared BARBOSA UMICRO #### [facility] [address] [address] [address] Anna BAER A micrscopic examination will be performed if indicated. Normal [facility] Comment on above: Performed By: #### Yared BARBOSA UMICRO #### [facility] [address] [address] [address] Anna Romero Glucose Ql (U) Negative Normal NEGATIVE The [facility] Comment on above: Performed By: #### Yared BARBOSA UMICRO #### [facility] [address] [address] [address] Anna Romero Hemoglobin Ql (U) LARGE Abnormal NEGATIVE The [facility] Comment on above: Performed By: #### Yared BARBOSA UMICRO #### [facility] [address] [place] [address] Dr. Anna Romero Ketones Ql (U) Negative Normal NEGATIVE The [facility] Comment on above: Performed By: #### Yared BARBOSA UMICRO #### [facility] [address] [place] [address] Dr. Anna Romero LEUKOCYTES Negative Normal NEGATIVE [facility] Comment on above: Performed By: #### Yared BARBOSA UMICRO #### [facility] [address] [place] [address] Dr. Anna oRmero Nitrite Ql (U) Negative Normal NEGATIVE The [facility] Comment on above: Performed By: #### Yared BARBOSA UMICRO #### [facility] [address] [place] [address] Dr. Anna Romero pH (U) 5.5 [pH] Normal 5-9 [facility] Comment on above: Performed By: #### Yared BARBOSA UMICRO #### [facility] [address] [place] [address] Dr. Anna Romero SPEC GRAVITY >=1.030 Abnormal 1.005-<=1.025 [facility] Comment on above: Performed By: #### Yared BARBOSA UMICRO #### [facility] [address] [place] [address] Dr. Anna Romero UA PROTEIN TRACE Normal NEGATIVE/ TRACE The [facility] Comment on above: Performed By: #### JD URIASRO #### [facility] [address] [place] [address] Dr. Anna Romero UR MICRO IND INDICATED Normal [facility] Comment on above: Performed By: #### JD URIASRO #### [facility] [address] [place] [address] Dr. Anna Romero Urobilinogen Qn (U) 0.2 {Joel'U}/dL Normal 0.2 - 1. 0 [facility] Comment on above: Performed By: #### JD URIASRO #### [facility] [address] [place] [address] Dr. Anna Romero PREG QUANT HCGon 01-21-2023 HCG QUANT 1693 mIU/mL Normal [facility] Comment on above: Performed By: #### S CARLA GRASTCX #### [facility] [address] [place] [address] Dr. Anna Romero HCG RANGE SEE BELOW Normal [facility] Comment on above: Result Comment: 5-50 0.2-1 WEEK 50-500 1-2 WEEKS 100-5,000 2-3 WEEKS 500-10,000 3-4 WEEKS 1,000-50,000 4-5 WEEKS 10,000-100,000 5-6 WEEKS 15,000-200,000 6-8 WEEKS 10,000-100,000 2-3 MONTHS Performed By: #### S CARLA, GRASTCX #### [facility] [address] [place] [address] Dr. Anna Romero URINE MICROSCOPIC ONLYon BACTERIA TRACE Abnormal NONE SEEN The [facility] Comment on above: Performed By: #### FAGN URIASICRO #### [facility] [address] [place] [address] Dr. Anna Romero Bacteria identified Cx Nom (U) NOT INDICATED Normal [facility] Comment on above: Performed By: #### JD URIASRO #### [facility] [address] [place] [address] Dr. Anna Romero CAST NONE SEEN Normal NONE SEEN The [facility] Comment on above: Performed By: #### JD URIASRO #### [facility] [address] [place] [address] Dr. Anna Romero Crystals LM Nom (Urine sed) NONE SEEN Normal NONE SEEN The [facility] Comment on above: Performed By: #### JD URIASRO #### [facility] [address] [place] [address] Dr. Anna Romero Epithelial cells LM Ql (Urine sed) RARE Normal NONE SEEN /RARE The [facility] Comment on above: Performed By: #### JD URIASRO #### [facility] [address] [place] [address] Dr. Anna Romero MUCOUS TRACE Abnormal NONE SEEN The [facility] Comment on above: Performed By: #### JD URIASRO #### [facility] [address] [place] [address] Dr. Anna Romero RBC 2-5 Abnormal 0-2 [facility] Comment on above: Performed By: #### JD URIASRO #### [facility] [address] [place] [address] Dr. Anna Romero WBC 0-2 Abnormal NONE SEEN The [facility] Comment on above: Performed By: #### JD URIASRO #### [facility] [address] [place] [address] Dr. Anna Romero US PREG TVon 01-21-2023 [...] JEAN BAPTISTE Date: 2023-01-21 16:54 Normal [facility] ER URINE PROFILEon 3 Bilirubin Ql (U) Negative Normal NEGATIVE [facility] Comment on above: Performed By: #### E RUR #### [facility] [address] [place] [address] Dr. Anna Romero Clarity (U) CLEAR Normal CLEAR [facility] Comment on above: Performed By: #### E RUR #### [facility] [address] [place] [address] Dr. Anna Romero Color (U) YELLOW Normal YELLOW [facility] Comment on above: Performed By: #### E RUR #### [facility] [address] [place] [address] Dr. Anna Romero ERUAHD A micrscopic examination will be performed if indicated. Normal [facility] Comment on above: Performed By: #### E RUR #### [facility] [address] [place] [address] Dr. Anna Romero Glucose Ql (U) Negative Normal NEGATIVE The [facility] Comment on above: Performed By: #### E RUR #### [facility] [address] [place] [address] Dr. Anna Romero Hemoglobin Ql (U) Negative Normal NEGATIVE The [facility] Comment on above: Performed By: #### E RUR #### [facility] [address] [place] [address] Dr. Anna Romero Ketones Ql (U) Negative Normal NEGATIVE The [facility] Comment on above: Performed By: #### E RUR #### [facility] [address] [place] [address] Dr. Anna Romero LEUKOCYTES Negative Normal NEGATIVE [facility] Comment on above: Performed By: #### E RUR #### [facility] [address] [place] [address] Dr. Anna Romero Nitrite Ql (U) Negative Normal NEGATIVE The [facility] Comment on above: Performed By: #### E RUR #### [facility] [address] [place] [address] Dr. Anna Romero pH (U) 6.5 [pH] Normal 5-9 [facility] Comment on above: Performed By: #### E RUR #### [facility] [address] [place] [address] Dr. Anna Romero SPEC GRAVITY 1.025 Normal 1.005-<=1.025 The [facility] Comment on above: Performed By: #### E RUR #### [facility] [address] [place] [address] Dr. Anna Romero UA PROTEIN TRACE Normal NEGATIVE/ TRACE The [facility] Comment on above: Performed By: #### E RUR #### [facility] [address] [place] [address] Dr. Anna Romero UR MICRO IND NOT INDICATED Normal [facility] Comment on above: Performed By: #### E RUR #### [facility] [address] [place] [address] Dr. Anna Romero Urobilinogen Qn (U) 0.2 {Joel'U}/dL Normal 0.2 - 1. 0 [facility] Comment on above: Performed By: #### E RUR #### [facility] [address] [address] [address] Anna Romero GROUP A STREP CULTUREon 12-13 S. pyogenes Ag Ql (Unsp spec) Culture Observations: NEGATIVE FOR GROUP A STREPTOCOCCUS. Normal [facility] Comment on above: Performed By: #### S SCRN, GRASTCX #### [facility] [address] [address] [address] Anna Romero STREPT SCREENon 01-08-2023 STREP SCREEN A Negative Normal NEGATIVE The [facility] Comment on above: Performed By: #### S SCRN, GRASTCX #### [facility] [address] [place] [address] Dr. Anna Rmoero SYMPTOMATIC COVID-19 ANTIGEN on 01-08-2023 EUA Statement SEE BELOW Normal The [facility] Comment on above: Result Comment: This [...] Performed By: #### S SCRN, GRASTCX #### [facility] [address] [place] [address] Dr. Anna Romero SARS-CoV-2 (COVID-19) RNA DAVY+probe Ql (Unsp spec) Positive Abnormal NEGATIVE The [facility] Comment on above: Performed By: #### S SCRN, GRASTCX #### [facility] [address] [place] [address] Dr. Anna Romero US PREG TVon 05-31-2022 [...] GENI CABRAL Date: 2022-05-31 19:46 Normal [facility] BILIRUBIN TOTALon 03-16-2022 Bilirubin [Mass/Vol] 0.3 mg/dL Normal 0.2-1.0 [facility] Comment on above: Performed By: #### T DALE #### [facility] [address] [place] [address] Dr. Anna Romero CBC AUTO DIFFon 03-16-2022 BASO # 0.0 103/ul Normal 0.0-0.1 [facility] Comment on above: Performed By: #### C BC #### [facility] [address] [place] [address] Dr. Anna Romero Basophils/100 WBC (Bld) 0.4 % Normal 0.2-2.0 [facility] Comment on above: Performed By: #### C BC #### [facility] [address] [place] [address] Dr. Anna Romero EO # 0.0 103/ul Normal 0.0-0.7 [facility] Comment on above: Performed By: #### C BC #### [facility] [address] [place] [address] Dr. Anna Romero Eosinophils/100 WBC (Bld) 0.2 % Critically low 0.9-7.0 [facility] Comment on above: Performed By: #### C BC #### [facility] [address] [place] [address] Dr. Anna Romero Erythrocyte distribution width (RBC) [Ratio] 12.8 % Normal 11.0-15.0 [facility] Comment on above: Performed By: #### C BC #### [facility] [address] [place] [address] Dr. Anna Romero Hematocrit (Bld) [Volume fraction] 39.2 % Normal 36.0-48.0 [facility] Comment on above: Performed By: #### C BC #### [facility] [address] [place] [address] Dr. Anna Romero Hemoglobin (Bld) [Mass/Vol] 12.9 g/dL Normal 12.0-16.0 [facility] Comment on above: Performed By: #### C BC #### [facility] [address] [place] [address] Dr. Anna Romero IG # 0.01 10e3/ul Normal 0.00-0.03 [facility] Comment on above: Performed By: #### C BC #### [facility] [address] [place] [address] Dr. Anna Romero IG % 0.2 % Normal 0.0-0.5 [facility] Comment on above: Performed By: #### C BC #### [facility] [address] [place] [address] Dr. Anna Romero LYMPH # 1.6 103/ul Normal 1.2-3.8 [facility] Comment on above: Performed By: #### C BC #### [facility] [address] [place] [address] Dr. Anna Romero Lymphocytes/100 WBC (Bld) 29.8 % Normal 20.5-60.0 [facility] Comment on above: Performed By: #### C BC #### [facility] [address] [place] [address] Dr. Anna Romero MANUAL DIFF REQ NO Normal [facility] Comment on above: Performed By: #### C BC #### [facility] [address] [place] [address] Dr. Anna Romero MCH (RBC) [Entitic mass] 31.8 pg Normal 26.7-34.0 [facility] Comment on above: Performed By: #### C BC #### [facility] [address] [address] [address] Anna Romero MCHC (RBC) [Mass/Vol] 32.9 g/dL Normal 29.9-35.2 [facility] Comment on above: Performed By: #### C BC #### [facility] [address] [address] [address] Anna Romero MCV (RBC) [Entitic vol] 96.6 fL Normal 81.0-99.0 [facility] Comment on above: Performed By: #### C BC #### [facility] [address] [place] [address] Dr. Anna Romero MONO # 0.4 103/ul Normal 0.3-0.8 [facility] Comment on above: Performed By: #### C BC #### [facility] [address] [place] [address] Dr. Anna Romero Monocytes/100 WBC (Bld) 7.2 % Normal 1.7-12.0 [facility] Comment on above: Performed By: #### C BC #### [facility] [address] [place] [address] Dr. Anna Romero NEUT # 3.3 103/ul Normal 1.4-6.5 [facility] Comment on above: Performed By: #### C BC #### [facility] [address] [place] [address] Dr. Anna Romero Neutrophils/100 WBC (Bld) 62.2 % Normal 43.0-75.0 [facility] Comment on above: Performed By: #### C BC #### [facility] [address] [place] [address] Dr. Anna Romero Platelet mean volume (Bld) [Entitic vol] 10.0 fL Normal 9.5-13.5 [facility] Comment on above: Performed By: #### C BC #### [facility] [address] [place] [address] Dr. Anna Romero PLT 153 103/ul Normal 150-450 [facility] Comment on above: Performed By: #### C BC #### [facility] [address] [place] [address] Dr. Anna Romero RBC 4.06 106/ul Critically low 4.20-5.40 [facility] Comment on above: Performed By: #### C BC #### [facility] [address] [place] [address] Dr. Anna Romero WBC 5.3 103/ul Normal 4.0-11.0 [facility] Comment on above: Performed By: #### C BC #### [facility] [address] [place] [address] Dr. Anna Romero FREE T3on 03-16-2022 FREE T3 3.18 pg/mlL Normal 2.18-3.98 [facility] Comment on above: Performed By: #### S SCREleanor GRASTCX #### [facility] [address] [place] [address] Dr. Anna Romero FREE T4on 03-16-2022 Free T4 [Mass/Vol] 1.08 ng/dL Normal 0.76-1.46 The [facility] Comment on above: Performed By: #### F T4 #### [facility] [address] [place] [address] Dr. Anna Romero PROF 14(COMP METB)on 022 Albumin [Mass/Vol] 4.3 g/dL Normal 3.4-5.0 [facility] Comment on above: Performed By: #### S SCRN GRASTCX #### [facility] [address] [place] [address] Dr. Anna Romero Albumin/Globulin [Mass ratio] 1.2 {ratio} Normal [facility] Comment on above: Performed By: #### S CARLA GRASTCX #### [facility] [address] [place] [address] Dr. Anna Romero ALP [Catalytic activity/Vol] 60 U/L Normal 46-116 [facility] Comment on above: Performed By: #### S CARLA GRASTCX #### [facility] [address] [place] [address] Dr. Anna Romero ALT [Catalytic activity/Vol] 25 U/L Normal 14-59 [facility] Comment on above: Performed By: #### S MOISEN, GRASTCX #### [facility] [address] [address] [address] Anna Romero Anion gap [Moles/Vol] 13.8 mmol/L Normal [facility] Comment on above: Performed By: #### S SCRN, GRASTCX #### [facility] [address] [address] [address] Anna Romero AST [Catalytic activity/Vol] 21 U/L Normal 15-37 [facility] Comment on above: Performed By: #### S CARLA, GRASTCX #### [facility] [address] [address] [address] Anna Romero Calcium [Mass/Vol] 9.4 mg/dL Normal 8.5-10.1 [facility] Comment on above: Performed By: #### S CARLA, GRASTCX #### [facility] [address] [address] [address] Anna Romero Chloride [Moles/Vol] 101 mmol/L Normal 98-107 [facility] Comment on above: Performed By: #### S CARLA, GRASTCX #### [facility] [address] [place] [address] Dr. Anna Romero CO2 [Moles/Vol] 26.8 mmol/L Normal 21.0-32.0 [facility] Comment on above: Performed By: #### S SCRN, GRASTCX #### [facility] [address] [address] [address] Anna Romero Creatinine [Mass/Vol] 0.87 mg/dL Normal 0.55-1.02 [facility] Comment on above: Performed By: #### S MOISEN, GRASTCX #### [facility] [address] [address] [address] Anna Romero EGFR-AF MAURITIAN >60 Normal >=60 [facility] Comment on above: Performed By: #### S SCRN, GRASTCX #### [facility] [address] [address] [address] Anna Romero EGFR-NON AF MAURITIAN >60 Normal >=60 [facility] Comment on above: Performed By: #### S SCRN, GRASTCX #### [facility] [address] [address] [address] Anna Romero Globulin (S) [Mass/Vol] 3.5 g/dL Normal [facility] Comment on above: Performed By: #### S SCRN, GRASTCX #### [facility] [address] [address] [address] Anna Romero Glucose [Mass/Vol] 80 mg/dL Normal 74-106 The [facility] Comment on above: Performed By: #### S SCRN, GRASTCX #### [facility] [address] [address] [address] Anna Romero Potassium [Moles/Vol] 3.6 mmol/L Normal 3.5-5.1 [facility] Comment on above: Performed By: #### S SCRN, GRASTCX #### [facility] [address] [address] [address] Anna Romero Protein [Mass/Vol] 7.8 g/dL Normal 6.4-8.2 [facility] Comment on above: Performed By: #### S SCRN, GRASTCX #### [facility] [address] [address] [address] Anna Romero Sodium [Moles/Vol] 138 mmol/L Normal 136-145 [facility] Comment on above: Performed By: #### S SCRN, GRASTCX #### [facility] [address] [address] [address] Anna Romero Urea nitrogen [Mass/Vol] 12.0 mg/dL Normal 7.0-18.0 [facility] Comment on above: Performed By: #### S SCRN, GRASTCX #### [facility] [address] [address] [address] Anna Romero Urea nitrogen/Creatinine [Mass ratio] 13.8 mg/mg Normal [facility] Comment on above: Performed By: #### S SCRN, GRASTCX #### [facility] [address] [place] [address] Dr. Anna Romero TSHon 03-16-2022 TSH 2.442 uIU/mL Normal 0.358-3.740 [facility] Comment on above: Performed By: #### S SCRN, GRASTCX #### [facility] [address] [place] [address] Dr. Anna Romero TSH RANGE SEE BELOW Normal [facility] Comment on above: Result Comment: <0.3 4 UIU/ml HYPERTHYROID 0.34-5.60 UIU/ml EUTHYROID >5.60 UIU/ml HYPOTHYROID Performed By: #### S SCRN, GRASTCX #### [facility] [address] [place] [address] Dr. Anna Romero Vital Signs Date Time Vital Sign Value Performing Clinician Brokc chavez 11-27-2023 14:46-0500 Body mass index (BMI) [Ratio] 25.66 kg/m2 Rosana HAYES Work Phone: [facility] 11-27-2023 14:46-0500 Body weight 72.12 kg Rosana HAYES Work Phone: [facility] 11-27-2023 14:46-0500 Diastolic blood pressure 60 mm[Hg] Rosana HAYES Work Phone: [facility] 11-27-2023 14:46-0500 Systolic blood pressure 102 mm[Hg] Rosana HAYES Work Phone: [facility] 10-16-2023 12:21-0500 Body height 170.2 cm Haseeb Nice MD Work Phone: [facility] 10-16-2023 12:21-0500 Body mass index (BMI) [Ratio] 22.55 kg/m2 Haseeb Nice MD Work Phone: [facility] 10-16-2023 12:21-0500 Body weight 65.32 kg Haseeb Nice MD Work Phone: [facility] 10-16-2023 12:21-0500 Diastolic blood pressure 66 mm[Hg] Haseeb Nice MD Work Phone: [facility] 10-16-2023 12:21-0500 Heart rate 79 /min Haseeb Nice MD Work Phone: [facility] [facility] 10-16-2023 12:21-0500 Systolic blood pressure 109 mm[Hg] Haseeb Nice MD Work Phone: [facility] Encounters Encounter Date Encounter Type Care Provider Facility Start: 11-27-2023 End: 11-27-2023 ambulatory ROSANA GALO Not Available Start: 11-27-2023 End: 11-27-2023 Office outpatient visit 15 minutes Rosana HAYES Work Phone: [facility] Comment on above: Second trimester pre gnancy; with normal glucose tolerance test (GTT); Diabetes mellitus screening; History of miscarriage; History of oligohydramnios Start: 11-19-2023 End: 11-20-2023 ambulatory BRIA [facility] Start: 10-29-2023 End: 10-30-2023 ambulatory BRIA [facility] Start: 10-28-2023 End: 10-28-2023 ambulatory BRIA YOJANA Not Available Start: 10-22-2023 Documentation procedure Haseeb Nice MD Work Phone: [facility] Start: 10-22-2023 Telephone encounter Rachelle TREJO [facility] Start: 10-21-2023 Chart abstracting Aliya berger MD Work Phone: [facility] Start: 10-17-2023 Orders Only Robbi Rodriguez CMA [facility] Comment on above: History of oligohydr amnios in prior , currently (Primary Dx) Start: 10-16-2023 End: 10-17-2023 ambulatory BRIA R YOJANA [facility] Start: 10-16-2023 End: 10-16-2023 Office outpatient new 45 minutes Hind Darius Nice MD Work Phone: [facility] Comment on above: High-risk in second trimester (Primary Dx); History of oligohydramnios in prior , currently ; 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; 20 weeks gestation of Start: 10-15-2023 Chart abstracting Scanning Pro vider External [facility] Start: 10-08-2023 End: 10-08-2023 ambulatory BRIA [...] Td Vaccines (9 - Td or Tdap) [facility] Start: 10-17-2024 End: 10-17-2024 US MFM with or without consult US MFM with or without consult Imaging Routine History of oligohydramnios in prior , currently Expected: 10/17/2024 (Approximate), Expires: 10/17/2024 [facility] Work Phone: Comment on above: Expected: 10/17/2024 (Approximate), Expires: 10/17/2024 Start: 10-16-2024 Adult BMI Screening Adult BMI Screen ing [facility] Start: 10-16-2024 Tobacco Screening Tobacco Screening [facility] Start: 12-11-2023 End: 12-11-2023 Patient encounter procedure 12/11/2023 10:20 AM EST Routine [facility] [address] [place] [id number] Bria Bales, DO [address] [place] [address] [facility] Start: 11-27-2023 End: 11-27-2024 CBC panel - Blood by Automated count CBC Lab Routine Diabetes mellitus screening Expected: 11/27/2023 (Approximate), Expires: 11/27/2024 [facility] Work Phone: Comment on above: Expected: 11/27/2023 (Approximate), Expires: 11/27/2024 Start: 11-27-2023 End: 11-27-2024 Measurement of glucose 1 hour after glucose challenge for glucose tolerance test Glucose tolerance, 1 hour Lab Routine Diabetes mellitus screening Expected: 11/27/2023 (Approximate), Expires: 11/27/2024 [facility] Comment on above: Expected: 11/27/2023 (Approximate), Expires: 11/27/2024 Start: 11-27-2023 End: 11-27-2024 US biophysical profile w non stress test US biophysical profile w non stress test Imaging Routine History of miscarriage History of oligohydramnios Expected: 11/27/2023 (Approximate), Expires: 11/27/2024 [facility] Comment on above: Expected: 11/27/2023 (Approximate), Expires: 11/27/2024 Start: 11-27-2023 End: 11-27-2024 US for US OB SCAN FOR GROWTH Imaging Routine History of miscarriage History of oligohydramnios Expected: 11/27/2023 (Approximate), Expires: 11/27/2024 [facility] Comment on above: Expected: 11/27/2023 (Approximate), Expires: 11/27/2024 Start: 11-19-2023 End: 11-19-2023 Patient encounter procedure 11/19/2023 9:15 AM EST Appointment [facility] - Ul[facility]ound [address] [place] [address] [facility] Start: 10-29-2023 End: 10-29-2023 Patient encounter procedure 10/29/2023 9:15 AM EST Appointment [facility] - [facility]ound [address] [place] [address] [facility] Start: 10-16-2023 End: 10-16-2023 Patient encounter procedure 10/16/2023 1:00 PM EST Office Visit [facility] [address] [place] [address] Haseeb Nice MD [address] [address] [facility] Start: 10-16-2023 Subsequent hospital visit by physician 10/16/2023 11:30 AM EST Hospital Encounter [facility] [address] [place] [address] [facility] Start: 06-14-2023 Influenza vaccination Influenza Vacc ine [facility] Start: 2014 Screening for malignant neoplasm of cervix Pap Smear [facility] Start: 2012 DTaP,Tdap and Td Vaccines (1 - Tdap) DTaP,Tdap and Td Vaccines (1 - Tdap) [facility] Start: 2011 Adult BMI Screening Adult BMI Screen ing [facility] Start: 2005 Depression Screening Depression Scre ening [facility] Start: 2005 Tobacco Screening Tobacco Screening [facility] Start: 1993 Tobacco Counseling Tobacco Counselin g [facility] Payers Date Payer Category Payer Medicaid [id number] 1993 Unknown [id number] 2.16.84 0.1.937083.3.579.2.593 1993 Unknown [id number] 2.16.84 0.1.239696.3.579.2.593 1993 Unknown [id number] 2.16.84 0.1.102687.3.579.2.593 1993 Unknown [id number] 2.16.84 0.1.623220.3.579.2.593 1993 Unknown [id number] 2.16.84 0.1.492764.3.579.2.593 1993 Unknown [id number] 2.16.84 0.1.340438.3.579.2.593 1993 Unknown [id number] 2.16.84 0.1.117149.3.579.2.593 1993 Unknown [id number] 2.16.84 0.1.477547.3.579.2.593 1993 Unknown [id number] 2.16.84 0.1.028349.3.579.2.593 1993 Unknown [id number] 2.16.84 0.1.098569.3.579.2.593 1993 Unknown [id number] 2.16.84 0.1.945534.3.579.2.593 1993 Unknown [id number] 2.16.84 0.1.029099.3.579.2.593 1993 Unknown [id number] 2.16.84 0.1.487897.3.579.2.1286 1993 Unknown [id number] 2.16.84 0.1.502209.3.579.2.1286 1993 Unknown [id number] 2.16.8 40.1.568138.3.579.2.1286 1993 Unknown [id number] 2.16.84 0.1.194741.3.579.2.1286 1993 Unknown [id number] 2.16.84 0.1.792226.3.579.2.1259 1993 Unknown [id number] 2.16.84 0.1.231650.3.579.2.1259 1993 Unknown [id number] 2.16.840 .1.919303.3.579.2.1259 1993 Unknown [id number] 2.16.840 .1.829568.3.579.2.1259 1959 Self-pay [id number] 1959 Unknown [id number] 1959 Unknown [id number] Social History Date Type Detail Facility Start: 10-15-2023 Tobacco smoking status NEIS Tobacco smoking consumption unknown [facility] Start: 03-23-2019 End: 10-16-2023 History of Social function [facility] Start: 03-23-2019 End: 10-16-2023 Housing Instability [facility] Housing Instability Unknown [facility] Start: 06-10-2023 [facility] Start: 1995 Sex Assigned At Not on file [facility] Start: 10-16-2023 Tobacco smoking status NEIS Smokes tobacco daily [facility] History of tobacco use Cigarette Smoker [facility] Start: 10-16-2023 Tobacco use and exposure Smokeless tobacco non-user [facility] Start: 10-16-2023 End: 10-21-2023 Alcohol intake Ex-drinker (finding) [facility] Start: 1995 Sex Assigned At Female [facility] Start: 08-07-2023 Gender identity Identifies as female gender (finding) [facility] Start: 08-07-2023 Sexual orientation Heterosexual (finding) [facility] Goals Date Patient Goal Desired Activity /State Personal health goal Clinical Notes 03-16-2022 to 11-27-2023 Rosana Galo, PA - 11/27/2023 2:30 PM ESTTelephone Encounter - Rachelle Mullen, PARI - 10/22/2023 12:28 PM ESTTelephone Encounter - Rachelle Mullen, AUTOMATION DEVELOPER - 10/22/2023 12:28 PM EST Note Date [...] of: ABIGAIL Chinchilla documented in this encounter [facility] 10-22-2023 Miscellaneous Notes Formattin g of this note might be different from the original. Please call us back to schedule an ultrasound next week. documented in this encounter [facility] 10-22-2023 Telephone encount er Note Please call us back to schedule an ultrasound next week. [facility] 10-22-2023 History of Presen t illness Narrative [...] increase p.o. hydration. documented in this encounter [facility] 10-16-2023 History of Presen t illness Narrative Headache/epigastric pain/blurry vision/swelling? No Cramping/contractions? No Abnormal vaginal discharge? No Spotting/vaginal bleeding? No Loss of fluid like your water may have broken? No Cats in the home? No Do you change the litter box? N/A Flu vaccine? No Genetic testing done this here or other office? Yes Have you been seen here at [facility] in a previous ? No Recent ER visits or hospitalizations? No Bring blood sugar log or meter with you today? (Please bring them with you for every visit at [facility]) N/A Traveled outside the country in [...] Yes Not In System Ref Prov vit no.403-apmr-hzejt acid ( VITAMIN) 27 mg iron- 800 [...] continue with routine care in your office [facility], the CDC, and other organizations representing maternal and public health professionals recommend that , , and lactating people and those considering receive the COVID-19 vaccination. Vaccination is the best method to reduce maternal and complications of SARS-CoV-2 infection. This document was created with [employer] technology. Though I make every effort to review the dictation as it is transcribed, on occasion the spoken word can be misinterpreted by the technology leading to inappropriate words, phrases, or sentences. This note is addressed to the requesting provider as a consultation for clinical guidance. Specific medical abbreviations are occasionally used and those are generally approved by the [place]?Board of?Obstetrics and?Gynecology?as well as?James s abbreviations. The above plan of care was based solely on the diagnoses for which a consultation was requested. ?More frequent testing may be indicated based on her other medical/obstetrical conditions. The management of other or medical conditions is beyond the scope of requested consultation and will continue to be followed by the primary radius corner machine operator or primary care provider. Thank you for allowing me to participate in her care. Please contact me if you have any concerns. documented in this encounter [facility] 03-16-2022 Note PROCEDURE: XR SHOULD ER RT 2V or > HISTORY: Impingement syndrome of right shoulder region ; acute right shoulder pain, no known injury COMPARISON: None. FINDINGS: BONES:No fracture, acute abnormality, or significant arthropathy. SOFT TISSUES:No visible soft tissue swelling. EFFUSION:None visible. OTHER: Negative. IMPRESSION: 1. Normal examination. Electronically authenticated by: GENI CABRAL Date: 2022-03-16 18:16 [facility] Evaluation note Diagnosis High-risk in second trimester- Primary History of oligohydramnios in prior , currently with other poor obstetric history 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 20 weeks gestation of documented in this encounter [facility] Diagnosis History of oligohydramnios in prior , currently - Primary with other poor obstetric history [facility] Diagnosis Second trimester state, incidental with normal glucose tolerance test (GTT) Diabetes mellitus screening Screening for diabetes mellitus History of miscarriage Personal history of other genital system and obstetric disorders History of oligohydramnios documented in this encounter [facility]ructionsNot on filedocumented in this [facility]Pro[facility] SystemInstructionsNot on filedocumented in this encounterProBellevue Hospital SystemInstructionsNot on filedocumented in this encounterProBellevue Hospital SystemInstructionsNot on filedocumented in this encounterProBellevue Hospital System Summary Purpose Family History No Family [...] oligohydramnios in prior , currently Procedures [facility] with or without consult Haseeb Nice MD [address] [facility], [address] [place] [id number] [facility] [address] [place] [address] Referral ID Status Reason Start Date Expiration Date V isits Requested Visits Authorized [id number] Pending Review 10/17/2023 10/16/2024 1 1 Additional Source Comments INFORMATION SOURCE (unrecogn ized section and content) DATE CREATED AUTHOR 01/31/2023 [facility] DATE CREATED AUTHOR AUTHOR'S ORGANIZ ATION 10/20/2023 [facility] DATE CREATED AUTHOR AUTHOR'S ORGANIZ ATION 11/24/[address] [facility] DATE CREATED AUTHOR AUTHOR'S ORGANIZ ATION 11/29/2023 [facility] EPIC Reason for Visit (unrecogniz ed [...] BE BASED ON THE PRIMARY CLINICAL RECORDS. [facility] [employer] [facility]. provides no warranty or guarantee of the accuracy or completeness of information in this document.
--- NOTE | 2023-12-16 14:01 | US_ITS ---
[address] [address] Patient Name: JERAMY SWEENEY MRN: [id number] date: 1995 Sex: F Assigned Patient Location: [facility] Current Patient Location: [facility] Accession/Order Number: [id number] Exam Date: 12/16/2023 14:05 Report Date: 12/16/2023 14:30 At the request of: BRIA DIAL Procedure: US OB BPP w non-stress EXAMINATION: US OB BPP w non-stress HISTORY: HISTORY OF MISCARRIAGE Z87.59 COMPARISON: No relevant comparison available. TECHNIQUE: Ultrasound biophysical profile was performed in the radiology department. non-reactive stress testing was performed by nursing staff in the birthing center. FINDINGS: BREATHING MOVEMENTS: 2.0 GROSS BODY MOVEMENTS: 2.0 TONE: 2.0 QUALITATIVE AMNIOTIC FLUID VOLUME: 2.0 PRESENTATION: BREECH HEART RATE: 147.5 bpm H.B./min AMNIOTIC FLUID VOLUME: 18.5 cm cm GESTATIONAL AGE: 29 weeks 0 days CONCLUSION: Total biophysical profile score: 8.0 Electronically authenticated by: ALFA TEJEDA Date: 12/16/2023 14:30
[2023-12-16 14:34] VITALS: BP 104/61; PULSE 94
== END 2023-12-16 15:06 | disposition home or self-care (01) ==
LOC: US 08:12 → FBC 13:57
PROVIDERS: Visit Provider Obstetrics & Gynecology
DX: O26.893 Other specified pregnancy related conditions, third trimester (principal); Z3A.29 29 weeks gestation of pregnancy
CPT/HCPCS: 76818

== ENCOUNTER 2023-12-19 07:17 | Outpatient (OUT) | payer OTHER, SELFPAY ==
--- OUTSIDE RECORDS SUMMARY | 2023-12-19 07:20 | XMS_ITS | CCD ---
Author Name Unknown Address [address] [place] [address] Organization [facility] Care Team Providers Care Preassembler And Inspector Name Role Phone RUSSELL, DR DEBBIE [...] IRAJ ., ROSANA Admitting Unavailable IRAJ ., ROSNAA Consulting Unavailable DIAB ., JOANN Attending Unavailable [...] e YOJANA, BRIA R Referring Unavailable MOHASEEB KARU Attending Unavailable YOJANA, BRIA R Referring Unavailable YOJANA, BRIA R Referring Unavailable NO PCP, NO PCP Primary Care Unavailable YOJANA, BRIA R Referring Unavailable NO PCP, NO PCP Primary Care Unavailable Unavailable Primary Care Provider Unavailabl e YOJANA, BRIA Attending Unavailable IRAJ, ROSANA Attending Unavailable IRAJ, ROSANA Attending Unavailable YOJANA, BRIA Attending Unavailable YOJANA, BRIA Attending Unavailable Medications Current Medications Medication Drug [...] for nausea or vomiting. 0 Active vit no.449-kraw-ziccs acid ( VITAMIN) 27 mg iron- 800 mcg tablet (6 sources) take 1 tablet by mouth in the morning vit no.073-krlw-xezyd acid ( VITAMIN) 27 mg iron- 800 [...] 01-28-2023 Chronic Other aftercare (1 source) Other longterm (current) drug therapy; Translations: [OTH INTERMEDIATE CURRENT DRUG THERAPY] Onset: 01-23-2023 Episodic Other [...] UA Negative Negative - 4(70) +++ mg/dL [facility] Blood, UA Negative Negative - 50 Felice/mcL [facility] Clarity, UA Clear [facility] Color, UA Yellow [facility] Glucose, UA Negative Negative - 1999(110) ++++ mg/dL [facility] Interpretation and review of laboratory results Normal [facility] Ketones, UA Negative Negative - 160(16) ++++ mg/dL [facility] Leukocytes, UA Negative Negative - 500+++ Regina/mcL [facility] Nitrite, UA Negative Negative - Positive [facility] pH, UA 5.5 5 - 9 [facility] Protein, UA Negative Negative - 1999(20) ++++ mg/dL [facility] Spec Grav, UA 1.030 1 - 1.03 [facility] Urobilinogen, UA 0.2 0.2 - 12 mg/dL [facility] PREG QUANT HCGon 01-28-2023 HCG QUANT 17 mIU/mL Normal [facility] Comment on above: Performed By: #### P REGQNT #### [facility] [address] [address] [address] Anna Romero HCG RANGE SEE BELOW Normal [facility] Comment on above: Result Comment: 5-50 0.2-1 WEEK 50-500 1-2 WEEKS 100-5,000 2-3 WEEKS 500-10,000 3-4 WEEKS 1,000-50,000 4-5 WEEKS 10,000-100,000 5-6 WEEKS 15,000-200,000 6-8 WEEKS 10,000-100,000 2-3 MONTHS Performed By: #### P REGQNT #### [facility] [address] [place] [address] Dr. Anna Romero PREG QUANT HCGon 01-23-2023 HCG QUANT 441 mIU/mL Normal [facility] Comment on above: Performed By: #### S CARLA GRASTCX #### [facility] [address] [place] [address] Dr. Anna Romero HCG RANGE SEE BELOW Normal [facility] Comment on above: Result Comment: 5-50 0.2-1 WEEK 50-500 1-2 WEEKS 100-5,000 2-3 WEEKS 500-10,000 3-4 WEEKS 1,000-50,000 4-5 WEEKS 10,000-100,000 5-6 WEEKS 15,000-200,000 6-8 WEEKS 10,000-100,000 2-3 MONTHS Performed By: #### S CARLA GRASTCX #### [facility] [address] [place] [address] Dr. Anna Romero ABO AND RH TYPEon 01-21-2023 ABO and Rh group Nom (Bld) ABO Rh Typing A Rh Positive Normal [facility] Comment on above: Performed By: #### S CARLA GRASTCX #### [facility] [address] [place] [address] Dr. Anna Romero ER URINE PROFILEon 3 Bilirubin Ql (U) Negative Normal NEGATIVE [facility] Comment on above: Performed By: #### VINCENT URIAS #### [facility] [address] [place] [address] Dr. Anna Romero Clarity (U) CLEAR Normal CLEAR [facility] Comment on above: Performed By: #### JD URIASRO #### [facility] [address] [place] [address] Dr. Anna Romero Color (U) YELLOW Normal YELLOW [facility] Comment on above: Performed By: #### Yared BARBOSA UMICRO #### [facility] [address] [place] [address] Dr. Anna BAER A micrscopic examination will be performed if indicated. Normal [facility] Comment on above: Performed By: #### Yared BARBOSA UMICRO #### [facility] [address] [place] [address] Dr. Anna Romero Glucose Ql (U) Negative Normal NEGATIVE [facility] Comment on above: Performed By: #### Yared BARBOSA UMICRO #### [facility] [address] [place] [address] Dr. Anna Romero Hemoglobin Ql (U) LARGE Abnormal NEGATIVE [facility] Comment on above: Performed By: #### Yared BARBOSA UMICRO #### [facility] [address] [place] [address] Dr. Anna Romero Ketones Ql (U) Negative Normal NEGATIVE [facility] Comment on above: Performed By: #### Yared BARBOSA UMICRO #### [facility] [address] [place] [address] Dr. Anna Romreo LEUKOCYTES Negative Normal NEGATIVE [facility] Comment on above: Performed By: #### Yared BARBOSA UMICRO #### [facility] [address] [place] [address] Dr. Anna Romero Nitrite Ql (U) Negative Normal NEGATIVE [facility] Comment on above: Performed By: #### Yared BARBOSA UMICRO #### [facility] [address] [place] [address] Dr. Anna Romero pH (U) 5.5 [pH] Normal 5-9 [facility] Comment on above: Performed By: #### Yared BARBOSA UMICRO #### [facility] [address] [place] [address] Dr. Anna Romero SPEC GRAVITY >=1.030 Abnormal 1.005-<=1.025 [facility] Comment on above: Performed By: #### JD URIASRO #### [facility] [address] [place] [address] Dr. Anna Romero UA PROTEIN TRACE Normal NEGATIVE/ TRACE [facility] Comment on above: Performed By: #### E RUR UMICRO #### [facility] [address] [place] [address] Dr. Anna Romero UR MICRO IND INDICATED Normal [facility] Comment on above: Performed By: #### E JD BARBOSARO #### [facility] [address] [place] [address] Dr. Anna Romero Urobilinogen Qn (U) 0.2 {Joel'U}/dL Normal 0.2 - 1. 0 [facility] Comment on above: Performed By: #### E JD BARBOSARO #### [facility] [address] [place] [address] Dr. Anna Romero PREG QUANT HCGon 01-21-2023 HCG QUANT 1693 mIU/mL Normal [facility] Comment on above: Performed By: #### S SCRN, GRASTCX #### [facility] [address] [place] [address] Dr. Anna Romero HCG RANGE SEE BELOW Normal [facility] Comment on above: Result Comment: 5-50 0.2-1 WEEK 50-500 1-2 WEEKS 100-5,000 2-3 WEEKS 500-10,000 3-4 WEEKS 1,000-50,000 4-5 WEEKS 10,000-100,000 5-6 WEEKS 15,000-200,000 6-8 WEEKS 10,000-100,000 2-3 MONTHS Performed By: #### S SCRN, GRASTCX #### [facility] [address] [place] [address] Dr. Anna Romero URINE MICROSCOPIC ONLYon BACTERIA TRACE Abnormal NONE SEEN [facility] Comment on above: Performed By: #### E TAYLORR, UMICRO #### [facility] [address] [place] [address] Dr. Anna Romero Bacteria identified Cx Nom (U) NOT INDICATED Normal [facility] Comment on above: Performed By: #### E RUR, UMICRO #### [facility] [address] [place] [address] Dr. Anna Romero CAST NONE SEEN Normal NONE SEEN [facility] Comment on above: Performed By: #### Yared BARBOSA UMICRO #### [facility] [address] [place] [address] Dr. Anna Romero Crystals LM Nom (Urine sed) NONE SEEN Normal NONE SEEN [facility] Comment on above: Performed By: #### Yared BARBOSA UMICRO #### [facility] [address] [place] [address] Dr. Anna Romero Epithelial cells LM Ql (Urine sed) RARE Normal NONE SEEN /RARE [facility] Comment on above: Performed By: #### Yared BARBOSA UMICRO #### [facility] [address] [place] [address] Dr. Anna Romero MUCOUS TRACE Abnormal NONE SEEN [facility] Comment on above: Performed By: #### Yared BARBOSA UMICRO #### [facility] [address] [place] [address] Dr. Anna Romero RBC 2-5 Abnormal 0-2 [facility] Comment on above: Performed By: #### Yared BARBOSA UMICRO #### [facility] [address] [place] [address] Dr. Anna Romero WBC 0-2 Abnormal NONE SEEN [facility] Comment on above: Performed By: #### Yared BARBOSA UMICRO #### [facility] [address] [place] [address] Dr. Anna Romero US PREG TVon 01-21-2023 [...] LUDWIG JEAN BAPTISTE Date: 2023-01-21 16:54 Normal [facility] ER URINE PROFILEon 3 Bilirubin Ql (U) Negative Normal NEGATIVE [facility] Comment on above: Performed By: #### E RUR #### [facility] [address] [place] [address] Dr. Anna Romero Clarity (U) CLEAR Normal CLEAR [facility] Comment on above: Performed By: #### E RUR #### [facility] [address] [place] [address] Dr. Anna Romero Color (U) YELLOW Normal YELLOW [facility] Comment on above: Performed By: #### E RUR #### [facility] [address] [place] [address] Dr. Anna BAER A micrscopic examination will be performed if indicated. Normal [facility] Comment on above: Performed By: #### E RUR #### [facility] [address] [place] [address] Dr. Anna Romero Glucose Ql (U) Negative Normal NEGATIVE [facility] Comment on above: Performed By: #### E RUR #### [facility] [address] [place] [address] Dr. Anna Romero Hemoglobin Ql (U) Negative Normal NEGATIVE [facility] Comment on above: Performed By: #### E RUR #### [facility] [address] [place] [address] Dr. Anna Romero Ketones Ql (U) Negative Normal NEGATIVE [facility] Comment on above: Performed By: #### E RUR #### [facility] [address] [place] [address] Dr. Anna Romero LEUKOCYTES Negative Normal NEGATIVE [facility] Comment on above: Performed By: #### E RUR #### [facility] [address] [place] [address] Dr. Anna Romero Nitrite Ql (U) Negative Normal NEGATIVE [facility] Comment on above: Performed By: #### E RUR #### [facility] [address] [place] [address] Dr. Anna Romero pH (U) 6.5 [pH] Normal 5-9 [facility] Comment on above: Performed By: #### E RUR #### [facility] [address] [place] [address] Dr. Anna Romero SPEC GRAVITY 1.025 Normal 1.005-<=1.025 [facility] Comment on above: Performed By: #### E RUR #### [facility] [address] [place] [address] Dr. Anna Romero UA PROTEIN TRACE Normal NEGATIVE/ TRACE [facility] Comment on above: Performed By: #### E RUR #### [facility] [address] [place] [address] Dr. Anna Romero UR MICRO IND NOT INDICATED Normal [facility] Comment on above: Performed By: #### E RUR #### [facility] [address] [place] [address] Dr. Anna Romero Urobilinogen Qn (U) 0.2 {Joel'U}/dL Normal 0.2 - 1. 0 [facility] Comment on above: Performed By: #### E RUR #### [facility] [address] [place] [address] Dr. Anna Romero GROUP A STREP CULTUREon 12-13 S. pyogenes Ag Ql (Unsp spec) Culture Observations: NEGATIVE FOR GROUP A STREPTOCOCCUS. Normal [facility] Comment on above: Performed By: #### S SCRN, GRASTCX #### [facility] [address] [place] [address] Dr. Anna Romero STREPT SCREENon 01-08-2023 STREP SCREEN A Negative Normal NEGATIVE [facility] Comment on above: Performed By: #### S SCRN, GRASTCX #### [facility] [address] [place] [address] Dr. Anna Romero SYMPTOMATIC COVID-19 ANTIGEN on 01-08-2023 EUA Statement SEE BELOW Normal [facility] Comment on above: Result Comment: This test [...] GRASTCX #### [facility] [address] [place] [address] Dr. Anna Romero SARS-CoV-2 (COVID-19) RNA DAVY+probe Ql (Unsp spec) Positive Abnormal NEGATIVE [facility] Comment on above: Performed By: #### S SCRN, GRASTCX #### [facility] [address] [place] [address] Dr. Anna Romero US PREG TVon 05-31-2022 [...] [facility] BILIRUBIN TOTALon 03-16-2022 Bilirubin [Mass/Vol] 0.3 mg/dL Normal 0.2-1.0 [facility] Comment on above: Performed By: #### T DALE #### [facility] [address] [place] [address] Dr. Anna Romero CBC AUTO DIFFon 03-16-2022 BASO # 0.0 103/ul Normal 0.0-0.1 [facility] Comment on above: Performed By: #### C BC #### [facility] [address] [place] [address] Dr. Anna Romero Basophils/100 WBC (Bld) 0.4 % Normal 0.2-2.0 [facility] Comment on above: Performed By: #### C BC #### [facility] [address] [place] [address] Dr. Anna Romero EO # 0.0 103/ul Normal 0.0-0.7 [facility] Comment on above: Performed By: #### C BC #### [facility] [address] [place] [address] Dr. Anna Romero Eosinophils/100 WBC (Bld) 0.2 % Critically low 0.9-7.0 [facility] Comment on above: Performed By: #### C BC #### [facility] [address] [place] [address] Dr. Anna Romero Erythrocyte distribution width (RBC) [Ratio] 12.8 % Normal 11.0-15.0 [facility] Comment on above: Performed By: #### C BC #### [facility] [address] [place] [address] Dr. Anna Romero Hematocrit (Bld) [Volume fraction] 39.2 % Normal 36.0-48.0 [facility] Comment on above: Performed By: #### C BC #### [facility] [address] [place] [address] Dr. Anna Romero Hemoglobin (Bld) [Mass/Vol] 12.9 g/dL Normal 12.0-16.0 [facility] Comment on above: Performed By: #### C BC #### [facility] [address] [place] [address] Dr. Anna Romero IG # 0.01 10e3/ul Normal 0.00-0.03 [facility] Comment on above: Performed By: #### C BC #### [facility] [address] [place] [address] Dr. Anna Romero IG % 0.2 % Normal 0.0-0.5 [facility] Comment on above: Performed By: #### C BC #### [facility] [address] [place] [address] Dr. Anna Romero LYMPH # 1.6 103/ul Normal 1.2-3.8 [facility] Comment on above: Performed By: #### C BC #### [facility] [address] [place] [address] Dr. Anna Romero Lymphocytes/100 WBC (Bld) 29.8 % Normal 20.5-60.0 [facility] Comment on above: Performed By: #### C BC #### [facility] [address] [place] [address] Dr. Anna Romero MANUAL DIFF REQ NO Normal [facility] Comment on above: Performed By: #### C BC #### [facility] [address] [place] [address] Dr. Anna Romero MCH (RBC) [Entitic mass] 31.8 pg Normal 26.7-34.0 [facility] Comment on above: Performed By: #### C BC #### [facility] [address] [place] [address] Dr. Anna Romero MCHC (RBC) [Mass/Vol] 32.9 g/dL Normal 29.9-35.2 [facility] Comment on above: Performed By: #### C BC #### [facility] [address] [place] [address] Dr. Anna Romero MCV (RBC) [Entitic vol] 96.6 fL Normal 81.0-99.0 [facility] Comment on above: Performed By: #### C BC #### [facility] [address] [place] [address] Dr. Anna Romero MONO # 0.4 103/ul Normal 0.3-0.8 [facility] Comment on above: Performed By: #### C BC #### [facility] [address] [place] [address] Dr. Anna Romero Monocytes/100 WBC (Bld) 7.2 % Normal 1.7-12.0 [facility] Comment on above: Performed By: #### C BC #### [facility] [address] [place] [address] Dr. Anna Romero NEUT # 3.3 103/ul Normal 1.4-6.5 [facility] Comment on above: Performed By: #### C BC #### [facility] [address] [place] [address] Dr. Anna Rmoero Neutrophils/100 WBC (Bld) 62.2 % Normal 43.0-75.0 [facility] Comment on above: Performed By: #### C BC #### [facility] [address] [place] [address] Dr. Anna Romero Platelet mean volume (Bld) [Entitic vol] 10.0 fL Normal 9.5-13.5 [facility] Comment on above: Performed By: #### C BC #### [facility] [address] [place] [address] Dr. Anna Romero PLT 153 103/ul Normal 150-450 [facility] Comment on above: Performed By: #### C BC #### [facility] [address] [place] [address] Dr. Anna Romero RBC 4.06 106/ul Critically low 4.20-5.40 [facility] Comment on above: Performed By: #### C BC #### [facility] [address] [place] [address] Dr. Anna Romero WBC 5.3 103/ul Normal 4.0-11.0 [facility] Comment on above: Performed By: #### C BC #### [facility] [address] [place] [address] Dr. Anna Romero FREE T3on 03-16-2022 FREE T3 3.18 pg/mlL Normal 2.18-3.98 [facility] Comment on above: Performed By: #### S SCRN GRASTCX #### [facility] [address] [place] [address] Dr. Anna Romero FREE T4on 03-16-2022 Free T4 [Mass/Vol] 1.08 ng/dL Normal 0.76-1.46 [facility] Comment on above: Performed By: #### F T4 #### [facility] [address] [place] [address] Dr. Anna Romero PROF 14(COMP METB)on 022 Albumin [Mass/Vol] 4.3 g/dL Normal 3.4-5.0 [facility] Comment on above: Performed By: #### S SCRN GRASTCX #### [facility] [address] [place] [address] Dr. Anna Romero Albumin/Globulin [Mass ratio] 1.2 {ratio} Normal [facility] Comment on above: Performed By: #### S SCRN GRASTCX #### [facility] [address] [place] [address] Dr. Anna Romero ALP [Catalytic activity/Vol] 60 U/L Normal 46-116 [facility] Comment on above: Performed By: #### S SCRN, GRASTCX #### [facility] [address] [address] [address] Anna Romero ALT [Catalytic activity/Vol] 25 U/L Normal 14-59 [facility] Comment on above: Performed By: #### S SCRN, GRASTCX #### [facility] [address] [address] [address] Anna Romero Anion gap [Moles/Vol] 13.8 mmol/L Normal [facility] Comment on above: Performed By: #### S SCRN, GRASTCX #### [facility] [address] [place] [address] Dr. Anna Romero AST [Catalytic activity/Vol] 21 U/L Normal 15-37 [facility] Comment on above: Performed By: #### S SCRN, GRASTCX #### [facility] [address] [place] [address] Dr. Anna Romero Calcium [Mass/Vol] 9.4 mg/dL Normal 8.5-10.1 [facility] Comment on above: Performed By: #### S SCRN, GRASTCX #### [facility] [address] [place] [address] Dr. Anna Romero Chloride [Moles/Vol] 101 mmol/L Normal 98-107 [facility] Comment on above: Performed By: #### S SCRN, GRASTCX #### [facility] [address] [place] [address] Dr. Anna Romero CO2 [Moles/Vol] 26.8 mmol/L Normal 21.0-32.0 [facility] Comment on above: Performed By: #### S SCRN, GRASTCX #### [facility] [address] [place] [address] Dr. Anna Romero Creatinine [Mass/Vol] 0.87 mg/dL Normal 0.55-1.02 [facility] Comment on above: Performed By: #### S SCRN, GRASTCX #### [facility] [address] [place] [address] Dr. Anna Romero EGFR-AF GEORGIAN >60 Normal >=60 [facility] Comment on above: Performed By: #### S SCRN, GRASTCX #### [facility] [address] [address] [address] Anna Romero EGFR-NON AF GEORGIAN >60 Normal >=60 [facility] Comment on above: Performed By: #### S SCRN, GRASTCX #### [facility] [address] [address] [address] Anna Romero Globulin (S) [Mass/Vol] 3.5 g/dL Normal [facility] Comment on above: Performed By: #### S SCRN, GRASTCX #### [facility] [address] [place] [address] Dr. Anna Romero Glucose [Mass/Vol] 80 mg/dL Normal 74-106 [facility] Comment on above: Performed By: #### S SCRN, GRASTCX #### [facility] [address] [place] [address] Dr. Anna Romero Potassium [Moles/Vol] 3.6 mmol/L Normal 3.5-5.1 [facility] Comment on above: Performed By: #### S SCRN, GRASTCX #### [facility] [address] [address] [address] Anna Romero Protein [Mass/Vol] 7.8 g/dL Normal 6.4-8.2 [facility] Comment on above: Performed By: #### S SCRN, GRASTCX #### [facility] [address] [address] [address] Anna Romero Sodium [Moles/Vol] 138 mmol/L Normal 136-145 [facility] Comment on above: Performed By: #### S SCRN, GRASTCX #### [facility] [address] [address] [address] Anna Romero Urea nitrogen [Mass/Vol] 12.0 mg/dL Normal 7.0-18.0 [facility] Comment on above: Performed By: #### S SCRN, GRASTCX #### [facility] [address] [address] [address] Anna Romero Urea nitrogen/Creatinine [Mass ratio] 13.8 mg/mg Normal [facility] Comment on above: Performed By: #### S SCRN, GRASTCX #### [facility] [address] [place] [address] Dr. Anna Romero TSHon 03-16-2022 TSH 2.442 uIU/mL Normal 0.358-3.740 [facility] Comment on above: Performed By: #### S SCRN, GRASTCX #### [facility] [address] [place] [address] Dr. Anna Romero TSH RANGE SEE BELOW Normal [facility] Comment on above: Result Comment: <0.3 4 UIU/ml HYPERTHYROID 0.34-5.60 UIU/ml EUTHYROID >5.60 UIU/ml HYPOTHYROID Performed By: #### S SCRN, GRASTCX #### [facility] [address] [place] [address] Dr. Anna Romero Vital Signs Date Time Vital Sign Value Performing Clinician Faci lity 11-27-2023 14:46-0500 Body mass index (BMI) [Ratio] 25.66 kg/m2 Rosana HAYES Work Phone: [facility] 11-27-2023 14:46-0500 Body weight 72.12 kg Rosana HAYES Work Phone: [facility] 11-27-2023 14:46-0500 Diastolic blood pressure 60 mm[Hg] Rosana HAYES Work Phone: [facility] 11-27-2023 14:46-0500 Systolic blood pressure 102 mm[Hg] Rosana HAYES Work Phone: [facility] 10-16-2023 12:21-0500 Body height 170.2 cm Haseeb Nice MD Work Phone: [facility] 10-16-2023 12:21-0500 Body mass index (BMI) [Ratio] 22.55 kg/m2 Haseeb Nice MD Work Phone: [facility] 10-16-2023 12:21-0500 Body weight 65.32 kg Haseeb Nice MD Work Phone: [facility] 10-16-2023 12:21-0500 Diastolic blood pressure 66 mm[Hg] Haseeb Nice MD Work Phone: [facility] 10-16-2023 12:21-0500 Heart rate 79 /min Haseeb Nice MD Work Phone: [facility] 10-16-2023 12:21-0500 Systolic blood pressure 109 mm[Hg] Haseeb Nice MD Work Phone: [facility] Encounters Encounter Date Encounter Type Care Provider Facility Start: 12-16-2023 End: 12-16-2023 ambulatory BRIA YOJANA Not Available Start: 11-27-2023 End: 11-27-2023 ambulatory ROSANA GALO Not Available Start: 11-27-2023 End: 11-27-2023 Office outpatient visit 15 minutes Rosana HAYES Work Phone: [facility] Comment on above: Second trimester pre gnancy; with normal glucose tolerance test (GTT); Diabetes mellitus screening; History of miscarriage; History of oligohydramnios Start: 11-19-2023 End: 11-20-2023 ambulatory [facility] Start: 10-29-2023 End: 10-30-2023 ambulatory BRIA [facility] Start: 10-28-2023 End: 10-28-2023 ambulatory BRIA YOJANA Not Available Start: 10-22-2023 Documentation procedure Haseeb Nice MD Work Phone: [facility] Start: 10-22-2023 Telephone encounter Rachelle TREJO [facility] Start: 10-21-2023 Chart abstracting Aliya berger MD Work Phone: [facility] Start: 10-17-2023 Orders Only Robbi Rodriguez [facility] Comment on above: History of oligohydr amnios in prior , currently (Primary Dx) Start: 10-16-2023 End: 10-17-2023 ambulatory BRIA BALES [facility] Start: 10-16-2023 End: 10-16-2023 Office outpatient new 45 minutes Haseeb Nice MD Work Phone: [facility] Comment on above: High-risk in second trimester (Primary Dx); History of oligohydramnios in prior , currently ; 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; 20 weeks gestation of Start: 10-15-2023 Chart abstracting Scanning Pro vider External [facility] Start: 10-08-2023 End: 10-08-2023 ambulatory BRIA BALES [...] Td Vaccines (9 - Td or Tdap) [facility] Start: 10-17-2024 End: 10-17-2024 US MFM with or without consult US MFM with or without consult Imaging Routine History of oligohydramnios in prior , currently Expected: 10/17/2024 (Approximate), Expires: 10/17/2024 [facility] Work Phone: Comment on above: Expected: 10/17/2024 (Approximate), Expires: 10/17/2024 Start: 10-16-2024 Adult BMI Screening Adult BMI Screen ing [facility] Start: 10-16-2024 Tobacco Screening Tobacco Screening [facility] Start: 12-11-2023 End: 12-11-2023 Patient encounter procedure 12/11/2023 10:20 AM EST Routine [facility] [address] [place] [id number] Bria Bales, [address] [place] [address] [facility] Start: 11-27-2023 End: 11-27-2024 CBC panel - Blood by Automated count CBC Lab Routine Diabetes mellitus screening Expected: 11/27/2023 (Approximate), Expires: 11/27/2024 [facility] Work Phone: Comment on above: Expected: 11/27/2023 (Approximate), Expires: 11/27/2024 Start: 11-27-2023 End: 11-27-2024 Measurement of glucose 1 hour after glucose challenge for glucose tolerance test Glucose tolerance, 1 hour Lab Routine Diabetes mellitus screening Expected: 11/27/2023 (Approximate), Expires: 11/27/2024 [facility] Comment on above: Expected: 11/27/2023 (Approximate), Expires: 11/27/2024 Start: 11-27-2023 End: 11-27-2024 US biophysical profile w non stress test US biophysical profile w non stress test Imaging Routine History of miscarriage History of oligohydramnios Expected: 11/27/2023 (Approximate), Expires: 11/27/2024 [facility] Comment on above: Expected: 11/27/2023 (Approximate), Expires: 11/27/2024 Start: 11-27-2023 End: 11-27-2024 US for US OB SCAN FOR GROWTH Imaging Routine History of miscarriage History of oligohydramnios Expected: 11/27/2023 (Approximate), Expires: 11/27/2024 [facility] Comment on above: Expected: 11/27/2023 (Approximate), Expires: 11/27/2024 Start: 11-19-2023 End: 11-19-2023 Patient encounter procedure 11/19/2023 9:15 AM EST Appointment [facility] [address] [place] [address] [facility] Start: 10-29-2023 End: 10-29-2023 Patient encounter procedure 10/29/2023 9:15 AM EST Appointment [facility] [address] [place] [address] [facility] Start: 10-16-2023 End: 10-16-2023 Patient encounter procedure 10/16/2023 1:00 PM EST Office Visit [facility] [address] [place] [address] Haseeb Nice MD [address] [address] [facility] Start: 10-16-2023 Subsequent hospital visit by physician 10/16/2023 11:30 AM EST Hospital Encounter [facility] [address] [place] [address] [facility] Start: 06-14-2023 Influenza vaccination Influenza Vacc ine [facility] Start: 2014 Screening for malignant neoplasm of cervix Pap Smear [facility] Start: 2012 DTaP,Tdap and Td Vaccines (1 - Tdap) DTaP,Tdap and Td Vaccines (1 - Tdap) [facility] Start: 2011 Adult BMI Screening Adult BMI Screen ing [facility] Start: 2005 Depression Screening Depression Scre ening [facility] Start: 2005 Tobacco Screening Tobacco Screening [facility] Start: 1993 Tobacco Counseling Tobacco Counselin g [facility] Payers Date Payer Category Payer Medicaid [id number] 1993 Unknown [id number] 2.16.84 0.1.408791.3.579.2.593 1993 Unknown [id number] 2.16.84 0.1.134479.3.579.2.593 1993 Unknown [id number] 2.16.84 0.1.407345.3.579.2.593 1993 Unknown [id number] 2.16.84 0.1.521372.3.579.2.593 1993 Unknown [id number] 2.16.84 0.1.288939.3.579.2.593 1993 Unknown [id number] 2.16.84 0.1.188641.3.579.2.593 1993 Unknown [id number] 2.16.84 0.1.627512.3.579.2.593 1993 Unknown [id number] 2.16.84 0.1.059910.3.579.2.593 1993 Unknown [id number] 2.16.84 0.1.188414.3.579.2.593 1993 Unknown [id number] 2.16.84 0.1.162989.3.579.2.593 1993 Unknown [id number] 2.16.84 0.1.939715.3.579.2.593 1993 Unknown [id number] 2.16.84 0.1.243662.3.579.2.593 1993 Unknown [id number] 2.16.84 0.1.170716.3.579.2.1286 1993 Unknown [id number] 2.16.84 0.1.294636.3.579.2.1286 1993 Unknown [id number] 2.16.8 40.1.608152.3.579.2.1286 1993 Unknown [id number] 2.16.84 0.1.409487.3.579.2.1286 1993 Unknown [id number] 2.16.84 0.1.123708.3.579.2.1259 1993 Unknown [id number] 2.16.84 0.1.086546.3.579.2.1259 1993 Unknown [id number] 2.16.84 0.1.926539.3.579.2.1259 1993 Unknown [id number] 2.16.840 .1.773134.3.579.2.1259 1993 Unknown [id number] 2.16.840 .1.844368.3.579.2.1259 1959 Self-pay [id number] 1959 Unknown [id number] 1959 Unknown [id number] Social History Date Type Detail Facility Start: 10-15-2023 Tobacco smoking status NVIS Tobacco smoking consumption unknown [facility] Start: 03-23-2019 End: 10-16-2023 History of Social function [facility] Start: 03-23-2019 End: 10-16-2023 Housing Instability [facility] Housing Instability Unknown [facility] Start: 06-10-2023 [facility] Start: 1995 Sex Assigned At Not on file [facility] Start: 10-16-2023 Tobacco smoking status NHIS Smokes tobacco daily [facility] History of tobacco use Cigarette Smoker P Yaneli [facility] Start: 10-16-2023 Tobacco use and exposure Smokeless tobacco non-user [facility] Start: 10-16-2023 End: 10-21-2023 Alcohol intake Ex-drinker (finding) [facility] Start: 1995 Sex Assigned At Female [facility] Start: 08-07-2023 Gender identity Identifies as female gender (finding) [facility] Start: 08-07-2023 Sexual orientation Heterosexual (finding) [facility] Goals Date Patient Goal Desired Activity /State Personal health goal Clinical Notes 03-16-2022 to 11-27-2023 Rosana Galo, ABIGAIL - 11/27/2023 2:30 PM ESTTelephone Encounter - Rachelle Mullen LPN - 10/22/2023 12:28 PM ESTTelephone Encounter - Rachelle Mullen LPN - 10/22/2023 12:28 PM EST Note Date [...] of: ABIGAIL Chinchilla documented in this encounter [facility] 10-22-2023 Miscellaneous Notes Formattin g of this note might be different from the original. Please call us back to schedule an ultrasound next week. documented in this encounter [employer] 10-22-2023 Telephone encount er Note Please call us back to schedule an ultrasound next week. [facility] 10-22-2023 History of Presen t illness [...] dilation and subsequently delivered a previable female . In view of that record and with [...] increase p.o. hydration. documented in this encounter [facility] 10-16-2023 History of Presen t illness [...] to mention to the provider today? No [facility] Maternal- Medicine Consult Note Reason For Consult: [...] Yes Not In System Ref Prov vit no.425-ulpm-byjmg acid ( VITAMIN) 27 mg iron- 800 [...] continue with routine care in your office [facility], the CDC, and other organizations representing maternal and public health professionals recommend that , , and lactating people and those considering receive the COVID-19 vaccination. Vaccination is the best method to reduce maternal and complications of SARS-CoV-2 infection. This document was created with Vis[employer]rise technology. Though I make every effort to review the dictation as it is transcribed, on occasion the spoken word can be misinterpreted by the technology leading to inappropriate words, phrases, or sentences. This note is addressed to the requesting provider as a consultation for clinical guidance. Specific medical abbreviations are occasionally used and those are generally approved by the [place]?Board of?Obstetrics and?Gynecology?as well as?James s abbreviations. The above plan of care was based solely on the diagnoses for which a consultation was requested. ?More frequent testing may be indicated based on her other medical/obstetrical conditions. The management of other or medical conditions is beyond the scope of requested consultation and will continue to be followed by the primary sewer pipe offbearer or primary care provider. Thank you for allowing me to participate in her care. Please contact me if you have any concerns. documented in this encounter [employer] 03-16-2022 Note PROCEDURE: XR SHOULD ER RT 2V or > HISTORY: Impingement syndrome of right shoulder region ; acute right shoulder pain, no known injury COMPARISON: None. FINDINGS: BONES:No fracture, acute abnormality, or significant arthropathy. SOFT TISSUES:No visible soft tissue swelling. EFFUSION:None visible. OTHER: Negative. IMPRESSION: 1. Normal examination. Electronically authenticated by: GENI CABRAL Date: 2022-03-16 18:16 [facility] Evaluation note Diagnosis High-risk in second trimester- Primary History of oligohydramnios in prior , currently with other poor obstetric history 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 20 weeks gestation of documented in this encounter [facility]* Diagnosis History of oligohydramnios in prior , currently - Primary with other poor obstetric history [facility] Diagnosis Second trimester state, incidental with normal glucose tolerance test (GTT) Diabetes mellitus screening Screening for diabetes mellitus History of miscarriage Personal history of other genital system and obstetric disorders History of oligohydramnios documented in this encounter [facility] HealthcareInstructionsNot on filedocumented in this encounterPro[facility] SystemInstructionsNot on filedocumented in this encounterProMer[facility] SystemInstructionsNot on filedocumented in this encounterProMercy Health [facility] SystemInstructionsNot on filedocumented in this encounterS[facility] Summary Purpose Family History No Family [...] oligohydramnios in prior , currently Procedures US MF with or without consult Haseeb Nice MD [address] [facility], [address] [place] [id number] [facility] [address] [place] [address] Referral ID Status Reason Start Date Expiration Date V isits Requested Visits Authorized [id number] Pending Review 10/17/2023 10/16/2024 1 1 Additional Source Comments INFORMATION SOURCE (unrecogn ized section and content) DATE CREATED AUTHOR 01/31/2023 [facility] DATE CREATED AUTHOR AUTHOR'S ORGANIZ ATION 10/20/2023 [facility] DATE CREATED AUTHOR AUTHOR'S ORGANIZ ATION 11/24/2023 [facility] DATE CREATED AUTHOR AUTHOR'S ORGANIZ ATION 12/17/2023 [facility] EPIC Reason for Visit (unrecogniz ed [...] BE BASED ON THE PRIMARY CLINICAL RECORDS. [facility]. provides no warranty or guarantee of the accuracy or completeness of information in this document.
[2023-12-19 10:32] VITALS: BP 113/66; PULSE 93
--- OUTSIDE RECORDS SUMMARY | 2024-01-02 06:19 | XMS_ITS | CCD ---
Author Organization [facility] Care Team Providers Care Ship'S Captain Name Role Phone RUSSELL, DR DEBBIE Mohan Attending Unavailabl e REINECK, DR DEBBIE Mohan Admitting Unavailabl e MARCH ., DR MARIS Vail Primary Care Unavailable REINECK, DR DEBBIE Mohan Consulting Unavailabl e CASSANDRA ROSALES Admitting Unavailable CASSANDRA ROSALES Attending Unavailable GRECHNY ., ABIGAIL RALPH Consulting Unavailabl e MARCH [...] Unavailabl e YOJANA, BRIA R Referring Unavailable MOUSSHASEEB Farris Attending Unavailable YOJANA, BRIA R Referring Unavailable YOJANA, BRIA R Referring Unavailable NO PCP, NO PCP Primary Care Unavailable YOJANA, BRIA R Referring Unavailable NO PCP, NO PCP Primary Care Unavailable Unavailable Primary Care Provider Unavaildionicio e YOJANA, BRIA Attending Unavailable ROSANA GALO Attending Unavailable IRAJROSANA SCHAFFER Attending Unavailable YOJANA, BRIA Attending Unavailable YOJANA, BRIA Attending Unavailable ROSANA GALO Attending Unavailable Medications Current Medications Medication Drug [...] for nausea or vomiting. 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 CURRENT DRUG THERAPY] Onset: 01-23-2023 Episodic Other [...] Negative Negative - 4(70) +++ mg/dL [facility] Blood, UA Negative Negative - 50 Felice/mcL [facility] Clarity, UA Clear [facility] Healthor re Color, UA Yellow [facility] Healthcar e Glucose, UA Negative Negative - 1999(110) ++++ mg/dL [facility] Interpretation and review of laboratory results Normal [facility] Ketones, UA Negative Negative - 160(16) ++++ mg/dL [facility] Leukocytes, UA Negative Negative - 500+++ Regina/mcL [facility] Nitrite, UA Negative Negative - Positive [facility] pH, UA 5.5 5 - 9 [facility] Healthcar e Protein, UA Negative Negative - 1999(20) ++++ mg/dL [facility] Spec Grav, UA 1.030 1 - 1.03 [facility] Urobilinogen, UA 0.2 0.2 - 12 mg/dL [facility] Health[facility] e PREG QUANT HCGon 01-28-2023 HCG QUANT 17 mIU/mL Normal [facility] Comment on above: Performed By: #### P REGQNT #### [facility] [address] [address] [address] Anna Romero HCG RANGE SEE BELOW Normal [facility] Comment on above: Result Comment: 5-50 0.2-1 WEEK 50-500 1-2 WEEKS 100-5,000 2-3 WEEKS 500-10,000 3-4 WEEKS 1,000-50,000 4-5 WEEKS 10,000-100,000 5-6 WEEKS 15,000-200,000 6-8 WEEKS 10,000-100,000 2-3 MONTHS Performed By: #### P REGQNT #### [facility] [address] [place] [address] Dr. Anna Romero PREG QUANT HCGon 01-23-2023 HCG QUANT 441 mIU/mL Normal [facility] Comment on above: Performed By: #### S SCRN, GRASTCX #### [facility] [address] [place] [address] Dr. Anna Romero HCG RANGE SEE BELOW Normal [facility] Comment on above: Result Comment: 5-50 0.2-1 WEEK 50-500 1-2 WEEKS 100-5,000 2-3 WEEKS 500-10,000 3-4 WEEKS 1,000-50,000 4-5 WEEKS 10,000-100,000 5-6 WEEKS 15,000-200,000 6-8 WEEKS 10,000-100,000 2-3 MONTHS Performed By: #### S SCRN, GRASTCX #### [facility] [address] [place] [address] Dr. Anna Romero ABO AND RH TYPEon 01-21-2023 ABO and Rh group Nom (Bld) ABO Rh Typing A Rh Positive Normal [facility] Comment on above: Performed By: #### S SCRN, GRASTCX #### [facility] [address] [place] [address] Dr. Anna Romero ER URINE PROFILEon 3 Bilirubin Ql (U) Negative Normal NEGATIVE [facility] Comment on above: Performed By: #### JD URIASRO #### [facility] [address] [place] [address] Dr. Anna Romero Clarity (U) CLEAR Normal CLEAR [facility] Comment on above: Performed By: #### Yared BARBOSA UMICRO #### [facility] [address] [place] [address] Dr. Anna Romero Color (U) YELLOW Normal YELLOW [facility] Comment on above: Performed By: #### FANG URIASICRO #### [facility] [address] [place] [address] Dr. Anna BAER A micrscopic examination will be performed if indicated. Normal [facility] Comment on above: Performed By: #### FANG URIASICRO #### [facility] [address] [place] [address] Dr. Anna Romero Glucose Ql (U) Negative Normal NEGATIVE [facility] Comment on above: Performed By: #### Yared BARBOSA UMICRO #### [facility] [address] [place] [address] Dr. Anna Romero Hemoglobin Ql (U) LARGE Abnormal NEGATIVE [facility] Comment on above: Performed By: #### Yared BARBOSA UMICRO #### [facility] [address] [place] [address] Dr. Anna Romero Ketones Ql (U) Negative Normal NEGATIVE [facility] Comment on above: Performed By: #### Yared BARBOSA UMICRO #### [facility] [address] [place] [address] Dr. Anna Romero LEUKOCYTES Negative Normal NEGATIVE [facility] Comment on above: Performed By: #### JD URIASRO #### [facility] [address] [place] [address] Dr. Anna Romero Nitrite Ql (U) Negative Normal NEGATIVE [facility] Comment on above: Performed By: #### FANG URIASICRO #### [facility] [address] [place] [address] Dr. Anna Romero pH (U) 5.5 [pH] Normal 5-9 [facility] Comment on above: Performed By: #### FANG URIASICRO #### [facility] [address] [place] [address] Dr. Anna Romero SPEC GRAVITY >=1.030 Abnormal 1.005-<=1.025 [facility] Comment on above: Performed By: #### JD URIASRO #### [facility] [address] [place] [address] Dr. Anna Romero UA PROTEIN TRACE Normal NEGATIVE/ TRACE [facility] Comment on above: Performed By: #### JD URIASRO #### [facility] [address] [place] [address] Dr. Anna Romero UR MICRO IND INDICATED Normal [facility] Comment on above: Performed By: #### JD URIASRO #### [facility] [address] [place] [address] Dr. Anna Romero Urobilinogen Qn (U) 0.2 {Joel'U}/dL Normal 0.2 - 1. 0 [facility] Comment on above: Performed By: #### JD URIASRO #### [facility] [address] [place] [address] Dr. Anna Romero PREG QUANT HCGon 01-21-2023 HCG QUANT 1693 mIU/mL Normal [facility] Comment on above: Performed By: #### S DAT AGUIRRETCX #### [facility] [address] [place] [address] Dr. Anna Romero HCG RANGE SEE BELOW Normal [facility] Comment on above: Result Comment: 5-50 0.2-1 WEEK 50-500 1-2 WEEKS 100-5,000 2-3 WEEKS 500-10,000 3-4 WEEKS 1,000-50,000 4-5 WEEKS 10,000-100,000 5-6 WEEKS 15,000-200,000 6-8 WEEKS 10,000-100,000 2-3 MONTHS Performed By: #### S CARLA GRASTCX #### [facility] [address] [place] [address] Dr. Anna Romero URINE MICROSCOPIC ONLYon BACTERIA TRACE Abnormal NONE SEEN [facility] Comment on above: Performed By: #### JD URIASRO #### [facility] [address] [place] [address] Dr. Anna Romero Bacteria identified Cx Nom (U) NOT INDICATED Normal [facility] Comment on above: Performed By: #### JD URIASRO #### [facility] [address] [place] [address] Dr. Anna Romero CAST NONE SEEN Normal NONE SEEN [facility] Comment on above: Performed By: #### Yared BARBOSA UMICRO #### [facility] [address] [place] [address] Dr. Anna Romero Crystals LM Nom (Urine sed) NONE SEEN Normal NONE SEEN [facility] Comment on above: Performed By: #### Yared BARBOSA UMICRO #### [facility] [address] [place] [address] Dr. Anna Romero Epithelial cells LM Ql (Urine sed) RARE Normal NONE SEEN /RARE [facility] Comment on above: Performed By: #### Yared BARBOSA UMICRO #### [facility] [address] [place] [address] Dr. Anna Romero MUCOUS TRACE Abnormal NONE SEEN [facility] Comment on above: Performed By: #### Yared BARBOSA UMICRO #### [facility] [address] [place] [address] Dr. Anna Romero RBC 2-5 Abnormal 0-2 [facility] Comment on above: Performed By: #### Yared BARBOSA UMICRO #### [facility] [address] [place] [address] Dr. Anna Romero WBC 0-2 Abnormal NONE SEEN [facility] Comment on above: Performed By: #### Yared BARBOSA UMICRO #### [facility] [address] [place] [address] Dr. Anna Romero US PREG TVon 01-21-2023 [...] JEAN BAPTISTE Date: 2023-01-21 16:54 Normal [facility] ER URINE PROFILEon 3 Bilirubin Ql (U) Negative Normal NEGATIVE [facility] Comment on above: Performed By: #### E RUR #### [facility] [address] [place] [address] Dr. Anna Romero Clarity (U) CLEAR Normal CLEAR [facility] Comment on above: Performed By: #### E RUR #### [facility] [address] [place] [address] Dr. Anna Romero Color (U) YELLOW Normal YELLOW [facility] Comment on above: Performed By: #### E RUR #### [facility] [address] [place] [address] Dr. Anna Romero ERUAHD A micrscopic examination will be performed if indicated. Normal [facility] Comment on above: Performed By: #### E RUR #### [facility] [address] [place] [address] Dr. Anna Romero Glucose Ql (U) Negative Normal NEGATIVE [facility] Comment on above: Performed By: #### E RUR #### [facility] [address] [place] [address] Dr. Anna Romero Hemoglobin Ql (U) Negative Normal NEGATIVE [facility] Comment on above: Performed By: #### E RUR #### [facility] [address] [place] [address] Dr. Anna Romero Ketones Ql (U) Negative Normal NEGATIVE [facility] Comment on above: Performed By: #### E RUR #### [facility] [address] [place] [address] Dr. Anna Romero LEUKOCYTES Negative Normal NEGATIVE [facility] Comment on above: Performed By: #### E RUR #### [facility] [address] [place] [address] Dr. Anna Romero Nitrite Ql (U) Negative Normal NEGATIVE [facility] Comment on above: Performed By: #### E RUR #### [facility] [address] [place] [address] Dr. Anna Romero pH (U) 6.5 [pH] Normal 5-9 [facility] Comment on above: Performed By: #### E RUR #### [facility] [address] [place] [address] Dr. Anna Romero SPEC GRAVITY 1.025 Normal 1.005-<=1.025 [facility] Comment on above: Performed By: #### E RUR #### [facility] [address] [place] [address] Dr. Anna Romero UA PROTEIN TRACE Normal NEGATIVE/ TRACE [facility] Comment on above: Performed By: #### E RUR #### [facility] [address] [place] [address] Dr. Anna Romero UR MICRO IND NOT INDICATED Normal [facility] Comment on above: Performed By: #### E RUR #### [facility] [address] [place] [address] Dr. Anna Romero Urobilinogen Qn (U) 0.2 {Joel'U}/dL Normal 0.2 - 1. 0 [facility] Comment on above: Performed By: #### E RUR #### [facility] [address] [place] [address] Dr. Anna Romero GROUP A STREP CULTUREon 12-13 S. pyogenes Ag Ql (Unsp spec) Culture Observations: NEGATIVE FOR GROUP A STREPTOCOCCUS. Normal [facility] Comment on above: Performed By: #### S CARLA GRASTCX #### [facility] [address] [place] [address] Dr. Anna Romero STREPT SCREENon 01-08-2023 STREP SCREEN A Negative Normal NEGATIVE [facility] Comment on above: Performed By: #### S CARLA, GRASTCX #### [facility] [address] [place] [address] Dr. Anna Romero SYMPTOMATIC COVID-19 ANTIGEN on 01-08-2023 EUA Statement SEE BELOW Normal [facility] Comment on above: Result Comment: This [...] is revoked sooner. Performed By: #### S CARLA GRASTCX #### [facility] [address] [place] [address] Dr. Anna Romero SARS-CoV-2 (COVID-19) RNA DAVY+probe Ql (Unsp spec) Positive Abnormal NEGATIVE [facility] Comment on above: Performed By: #### S CARLA GRASTCX #### [facility] [address] [place] [address] Dr. Anna Romero US PREG TVon 05-31-2022 [...] GENI CABRAL Date: 2022-05-31 19:46 Normal [facility] BILIRUBIN TOTALon 03-16-2022 Bilirubin [Mass/Vol] 0.3 mg/dL Normal 0.2-1.0 [facility] Comment on above: Performed By: #### T DALE #### [facility] [address] [place] [address] Dr. Anna Romero CBC AUTO DIFFon 03-16-2022 BASO # 0.0 103/ul Normal 0.0-0.1 [facility] Comment on above: Performed By: #### C BC #### [facility] [address] [place] [address] Dr. Anna Romero Basophils/100 WBC (Bld) 0.4 % Normal 0.2-2.0 [facility] Comment on above: Performed By: #### C BC #### [facility] [address] [place] [address] Dr. Anna Romero EO # 0.0 103/ul Normal 0.0-0.7 [facility] Comment on above: Performed By: #### C BC #### [facility] [address] [place] [address] Dr. Anna Romero Eosinophils/100 WBC (Bld) 0.2 % Critically low 0.9-7.0 [facility] Comment on above: Performed By: #### C BC #### [facility] [address] [place] [address] Dr. Anna Romero Erythrocyte distribution width (RBC) [Ratio] 12.8 % Normal 11.0-15.0 [facility] Comment on above: Performed By: #### C BC #### [facility] [address] [place] [address] Dr. Anna Romero Hematocrit (Bld) [Volume fraction] 39.2 % Normal 36.0-48.0 [facility] Comment on above: Performed By: #### C BC #### [facility] [address] [place] [address] Dr. Anna Romero Hemoglobin (Bld) [Mass/Vol] 12.9 g/dL Normal 12.0-16.0 [facility] Comment on above: Performed By: #### C BC #### [facility] [address] [place] [address] Dr. Anna Romero IG # 0.01 10e3/ul Normal 0.00-0.03 [facility] Comment on above: Performed By: #### C BC #### [facility] [address] [place] [address] Dr. Anna Romero IG % 0.2 % Normal 0.0-0.5 [facility] Comment on above: Performed By: #### C BC #### [facility] [address] [place] [address] Dr. Anna Romero LYMPH # 1.6 103/ul Normal 1.2-3.8 [facility] Comment on above: Performed By: #### C BC #### [facility] [address] [place] [address] Dr. Anna Romero Lymphocytes/100 WBC (Bld) 29.8 % Normal 20.5-60.0 [facility] Comment on above: Performed By: #### C BC #### [facility] [address] [place] [address] Dr. Anna Romero MANUAL DIFF REQ NO Normal [facility] Comment on above: Performed By: #### C BC #### [facility] [address] [place] [address] Dr. Anna Romero MCH (RBC) [Entitic mass] 31.8 pg Normal 26.7-34.0 [facility] Comment on above: Performed By: #### C BC #### [facility] [address] [address] [address] Anna Romero MCHC (RBC) [Mass/Vol] 32.9 g/dL Normal 29.9-35.2 [facility] Comment on above: Performed By: #### C BC #### [facility] [address] [place] [address] Dr. Anna Romero MCV (RBC) [Entitic vol] 96.6 fL Normal 81.0-99.0 [facility] Comment on above: Performed By: #### C BC #### [facility] [address] [place] [address] Dr. Anna Romero MONO # 0.4 103/ul Normal 0.3-0.8 [facility] Comment on above: Performed By: #### C BC #### [facility] [address] [place] [address] Dr. Anna Romero Monocytes/100 WBC (Bld) 7.2 % Normal 1.7-12.0 [facility] Comment on above: Performed By: #### C BC #### [facility] [address] [place] [address] Dr. Anna Romero NEUT # 3.3 103/ul Normal 1.4-6.5 [facility] Comment on above: Performed By: #### C BC #### [facility] [address] [place] [address] Dr. Anna Romero Neutrophils/100 WBC (Bld) 62.2 % Normal 43.0-75.0 [facility] Comment on above: Performed By: #### C BC #### [facility] [address] [place] [address] Dr. Anna Romero Platelet mean volume (Bld) [Entitic vol] 10.0 fL Normal 9.5-13.5 [facility] Comment on above: Performed By: #### C BC #### [facility] [address] [place] [address] Dr. Anna Romero PLT 153 103/ul Normal 150-450 [facility] Comment on above: Performed By: #### C BC #### [facility] [address] [place] [address] Dr. Anna Romero RBC 4.06 106/ul Critically low 4.20-5.40 [facility] Comment on above: Performed By: #### C BC #### [facility] [address] [place] [address] Dr. Anna Romero WBC 5.3 103/ul Normal 4.0-11.0 [facility] Comment on above: Performed By: #### C BC #### [facility] [address] [place] [address] Dr. Anna Romero FREE T3on 03-16-2022 FREE T3 3.18 pg/mlL Normal 2.18-3.98 [facility] Comment on above: Performed By: #### S CARLA GRASTCX #### [facility] [address] [place] [address] Dr. Anna Romero FREE T4on 03-16-2022 Free T4 [Mass/Vol] 1.08 ng/dL Normal 0.76-1.46 [facility] Comment on above: Performed By: #### F T4 #### [facility] [address] [place] [address] Dr. Anna Romero PROF 14(COMP METB)on 022 Albumin [Mass/Vol] 4.3 g/dL Normal 3.4-5.0 [facility] Comment on above: Performed By: #### S CARLA GRASTCX #### [facility] [address] [place] [address] Dr. Anna Romero Albumin/Globulin [Mass ratio] 1.2 {ratio} Normal [facility] Comment on above: Performed By: #### S CARLA GRASTCX #### [facility] [address] [place] [address] Dr. Anna Romero ALP [Catalytic activity/Vol] 60 U/L Normal 46-116 [facility] Comment on above: Performed By: #### S CARLA GRASTCX #### [facility] [address] [place] [address] Dr. Anna Romero ALT [Catalytic activity/Vol] 25 U/L Normal 14-59 [facility] Comment on above: Performed By: #### S MOISEN GRASTCX #### [facility] [address] [address] [address] Anna Romero Anion gap [Moles/Vol] 13.8 mmol/L Normal [facility] Comment on above: Performed By: #### S SCRN, GRASTCX #### [facility] [address] [address] [address] Anna Romero AST [Catalytic activity/Vol] 21 U/L Normal 15-37 [facility] Comment on above: Performed By: #### S CARLA GRASTCX #### [facility] [address] [place] [address] Dr. Anna Romero Calcium [Mass/Vol] 9.4 mg/dL Normal 8.5-10.1 [facility] Comment on above: Performed By: #### S CARLA, GRASTCX #### [facility] [address] [place] [address] Dr. Anna Romero Chloride [Moles/Vol] 101 mmol/L Normal 98-107 [facility] Comment on above: Performed By: #### S CARLA, GRASTCX #### [facility] [address] [place] [address] Dr. Anna Romero CO2 [Moles/Vol] 26.8 mmol/L Normal 21.0-32.0 [facility] Comment on above: Performed By: #### S SCRN, GRASTCX #### [facility] [address] [place] [address] Dr. Anna Romero Creatinine [Mass/Vol] 0.87 mg/dL Normal 0.55-1.02 [facility] Comment on above: Performed By: #### S SCRN, GRASTCX #### [facility] [address] [place] [address] Dr. Anna Romero EGFR-AF LATVIAN >60 Normal >=60 [facility] Comment on above: Performed By: #### S SCRN, GRASTCX #### [facility] [address] [address] [address] Anna Romero EGFR-NON AF LATVIAN >60 Normal >=60 [facility] Comment on above: Performed By: #### S SCRN, GRASTCX #### [facility] [address] [address] [address] Anna Romero Globulin (S) [Mass/Vol] 3.5 g/dL Normal [facility] Comment on above: Performed By: #### S SCRN, GRASTCX #### [facility] [address] [place] [address] Dr. Anna Romero Glucose [Mass/Vol] 80 mg/dL Normal 74-106 [facility] Comment on above: Performed By: #### S SCRN, GRASTCX #### [facility] [address] [place] [address] Dr. Anna Romero Potassium [Moles/Vol] 3.6 mmol/L Normal 3.5-5.1 [facility] Comment on above: Performed By: #### S SCRN, GRASTCX #### [facility] [address] [place] [address] Dr. Anna Romero Protein [Mass/Vol] 7.8 g/dL Normal 6.4-8.2 [facility] Comment on above: Performed By: #### S SCRN, GRASTCX #### [facility] [address] [place] [address] Dr. Anna Romero Sodium [Moles/Vol] 138 mmol/L Normal 136-145 [facility] Comment on above: Performed By: #### S SCRN, GRASTCX #### [facility] [address] [place] [address] Dr. Anna Romero Urea nitrogen [Mass/Vol] 12.0 mg/dL Normal 7.0-18.0 [facility] Comment on above: Performed By: #### S SCRN, GRASTCX #### [facility] [address] [place] [address] Dr. Anna Romero Urea nitrogen/Creatinine [Mass ratio] 13.8 mg/mg Normal [facility] Comment on above: Performed By: #### S SCRN, GRASTCX #### [facility] [address] [address] [address] Anna Romero TSHon 03-16-2022 TSH 2.442 uIU/mL Normal 0.358-3.740 [facility] Comment on above: Performed By: #### S SCRN, GRASTCX #### [facility] [address] [place] [address] Dr. Anna Romero TSH RANGE SEE BELOW Normal [facility] Comment on above: Result Comment: <0.3 4 UIU/ml HYPERTHYROID 0.34-5.60 UIU/ml EUTHYROID >5.60 UIU/ml HYPOTHYROID Performed By: #### S SCRN, GRASTCX #### [facility] [address] [place] [address] Dr. Anna Romero Vital Signs Date Time Vital Sign Value Performing Clinician Faci lity 11-27-2023 14:46-0500 Body mass index (BMI) [Ratio] 25.66 kg/m2 Rosana HAYES Work Phone: [facility] 11-27-2023 14:46-0500 Body weight 72.12 kg Rosana HAYES Work Phone: [facility] 11-27-2023 14:46-0500 Diastolic blood pressure 60 mm[Hg] Rosana HAYES Work Phone: [facility] 11-27-2023 14:46-0500 Systolic blood pressure 102 mm[Hg] Rosana HAYES Work Phone: [facility] 10-16-2023 12:21-0500 Body height 170.2 cm Haseeb Nice MD Work Phone: [facility] 10-16-2023 12:21-0500 Body mass index (BMI) [Ratio] 22.55 kg/m2 Haseeb Nice MD Work Phone: [facility] 10-16-2023 12:21-0500 Body weight 65.32 kg Haseeb Nice MD Work Phone: [facility] 10-16-2023 12:21-0500 Diastolic blood pressure 66 mm[Hg] Haseeb Nice MD Work Phone: [facility] 10-16-2023 12:21-0500 Heart rate 79 /min Haseeb Nice MD Work Phone: [facility] 10-16-2023 12:21-0500 Systolic blood pressure 109 mm[Hg] Haseeb Nice MD Work Phone: [facility] Encounters Encounter Date Encounter Type Care Provider Facility Start: 12-31-2023 End: 12-31-2023 ambulatory ROSANA GALO Not Available Start: 12-16-2023 End: 12-16-2023 ambulatory BRIA YOJANA Not Available Start: 11-27-2023 End: 11-27-2023 ambulatory ROSANA GALO Not Available Start: 11-27-2023 End: 11-27-2023 Office outpatient visit 15 minutes Rosana HAYES Work Phone: [facility] Comment on above: Second trimester pre gnancy; with normal glucose tolerance test (GTT); Diabetes mellitus screening; History of miscarriage; History of oligohydramnios Start: 11-19-2023 End: 11-20-2023 ambulatory [facility] Start: 10-29-2023 End: 10-30-2023 ambulatory [facility] Start: 10-28-2023 End: 10-28-2023 ambulatory BRIA YOJANA Not Available Start: 10-22-2023 Documentation procedure Haseeb Nice MD Work Phone: [facility] Start: 10-22-2023 Telephone encounter Rachelle TREJO [facility] Start: 10-21-2023 Chart abstracting Aliya berger MD Work Phone: [facility] Start: 10-17-2023 Orders Only Robbi Rodriguez [facility] Comment on above: History of oligohydr amnios in prior , currently (Primary Dx) Start: 10-16-2023 End: 10-17-2023 ambulatory BRIA BALES [facility] Start: 10-16-2023 End: 10-16-2023 Office outpatient new 45 minutes Haseeb Nice MD Work Phone: [facility] Comment on above: High-risk in second trimester (Primary Dx); History of oligohydramnios in prior , currently ; 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; 20 weeks gestation of Start: 10-15-2023 Chart abstracting Scanning Pro vider External [facility] Start: 10-08-2023 End: 10-08-2023 ambulatory BRIA [...] Td Vaccines (9 - Td or Tdap) [facility] Start: 10-17-2024 End: 10-17-2024 US MFM with or without consult US MFM with or without consult Imaging Routine History of oligohydramnios in prior , currently Expected: 10/17/2024 (Approximate), Expires: 10/17/2024 [facility] Work Phone: Comment on above: Expected: 10/17/2024 (Approximate), Expires: 10/17/2024 Start: 10-16-2024 Adult BMI Screening Adult BMI Screen ing [facility] Start: 10-16-2024 Tobacco Screening Tobacco Screening [facility] Start: 12-11-2023 End: 12-11-2023 Patient encounter procedure 12/11/2023 10:20 AM EST Routine [facility] [address] [place] [address] Bria Bales, DO [address] [place] [address] [facility] Start: 11-27-2023 End: 11-27-2024 CBC panel - Blood by Automated count CBC Lab Routine Diabetes mellitus screening Expected: 11/27/2023 (Approximate), Expires: 11/27/2024 [facility] Work Phone: Comment on above: Expected: 11/27/2023 (Approximate), Expires: 11/27/2024 Start: 11-27-2023 End: 11-27-2024 Measurement of glucose 1 hour after glucose challenge for glucose tolerance test Glucose tolerance, 1 hour Lab Routine Diabetes mellitus screening Expected: 11/27/2023 (Approximate), Expires: 11/27/2024 [facility] Comment on above: Expected: 11/27/2023 (Approximate), Expires: 11/27/2024 Start: 11-27-2023 End: 11-27-2024 US biophysical profile w non stress test US biophysical profile w non stress test Imaging Routine History of miscarriage History of oligohydramnios Expected: 11/27/2023 (Approximate), Expires: 11/27/2024 [facility] Comment on above: Expected: 11/27/2023 (Approximate), Expires: 11/27/2024 Start: 11-27-2023 End: 11-27-2024 US for US OB SCAN FOR GROWTH Imaging Routine History of miscarriage History of oligohydramnios Expected: 11/27/2023 (Approximate), Expires: 11/27/2024 [facility] Comment on above: Expected: 11/27/2023 (Approximate), Expires: 11/27/2024 Start: 11-19-2023 End: 11-19-2023 Patient encounter procedure 11/19/2023 9:15 AM EST Appointment [facility]ound [address] [place] [address] [facility] Start: 10-29-2023 End: 10-29-2023 Patient encounter procedure 10/29/2023 9:15 AM EST Appointment [facility] [address] [place] [address] [facility] Start: 10-16-2023 End: 10-16-2023 Patient encounter procedure 10/16/2023 1:00 PM EST Office Visit [facility] [address] [place] [address] Haseeb Nice MD [address], [address] [place] [address] [facility] Start: 10-16-2023 Subsequent hospital visit by physician 10/16/2023 11:30 AM EST Hospital Encounter [facility] Imaging [address] [place] [address] [facility] Start: 06-14-2023 Influenza vaccination Influenza Vacc ine [facility] Start: 2014 Screening for malignant neoplasm of cervix Pap Smear [facility] Start: 2012 DTaP,Tdap and Td Vaccines (1 - Tdap) DTaP,Tdap and Td Vaccines (1 - Tdap) [facility] Start: 2011 Adult BMI Screening Adult BMI Screen ing [facility] Start: 2005 Depression Screening Depression Scre ening [facility] Start: 2005 Tobacco Screening Tobacco Screening [facility] Start: 1993 Tobacco Counseling Tobacco Counselin g [facility] Payers Date Payer Category Payer Medicaid [id number] 1993 Unknown [id number] 2.16.84 0.1.027255.3.579.2.593 1993 Unknown [id number] 2.16.84 0.1.717102.3.579.2.593 1993 Unknown [id number] 2.16.84 0.1.935509.3.579.2.593 1993 Unknown [id number] 2.16.84 0.1.724117.3.579.2.593 1993 Unknown [id number] 2.16.84 0.1.313206.3.579.2.593 1993 Unknown [id number] 2.16.84 0.1.750632.3.579.2.593 1993 Unknown [id number] 2.16.84 0.1.596152.3.579.2.593 1993 Unknown [id number] 2.16.84 0.1.975923.3.579.2.593 1993 Unknown [id number] 2.16.84 0.1.047001.3.579.2.593 1993 Unknown [id number] 2.16.84 0.1.741221.3.579.2.593 1993 Unknown [id number] 2.16.84 0.1.037720.3.579.2.593 1993 Unknown [id number] 2.16.84 0.1.647749.3.579.2.593 1993 Unknown [id number] 2.16.84 0.1.923826.3.579.2.1286 1993 Unknown [id number] 2.16.84 0.1.774901.3.579.2.1286 1993 Unknown [id number] 2.16.8 40.1.651376.3.579.2.1286 1993 Unknown [id number] 2.16.84 0.1.045583.3.579.2.1286 1993 Unknown [id number] 2.16.84 0.1.169785.3.579.2.1259 1993 Unknown [id number] 2.16.84 0.1.195235.3.579.2.1259 1993 Unknown [id number] 2.16.84 0.1.579547.3.579.2.1259 1993 Unknown [id number] 2.16.84 0.1.062166.3.579.2.1259 1993 Unknown [id number] 2.16.840 .1.589998.3.579.2.1259 1993 Unknown [id number] 2.16.840 .1.849832.3.579.2.1259 1959 Self-pay [id number] 1959 Unknown [id number] 1959 Unknown [id number] Social History Date Type Detail Facility Start: 10-15-2023 Tobacco smoking status UTIS Tobacco smoking consumption unknown [facility] Start: 03-23-2019 End: 10-16-2023 History of Social function [facility] Start: 03-23-2019 End: 10-16-2023 Housing Instability [facility] Housing Instability Unknown [facility] Start: 06-10-2023 [facility] Start: 1995 Sex Assigned At Not on file [facility] Start: 10-16-2023 Tobacco smoking status NHIS Smokes tobacco daily [facility] History of tobacco use Cigarette Smoker [facility] Start: 10-16-2023 Tobacco use and exposure Smokeless tobacco non-user [facility] Start: 10-16-2023 End: 10-21-2023 Alcohol intake Ex-drinker (finding) [facility] Start: 1995 Sex Assigned At Female [facility] Start: 08-07-2023 Gender identity Identifies as female gender (finding) [facility] Start: 08-07-2023 Sexual orientation Heterosexual (finding) [facility] Goals Date Patient Goal Desired Activity /State Personal health goal Clinical Notes 03-16-2022 to 11-27-2023 ABIGAIL Chinchilla - 11/27/2023 2:30 PM ESTTelephone Encounter - [...] ABIGAIL Chinchilla documented in this encounter [facility] 10-22-2023 Miscellaneous Notes Formattin g of this note might be different from the original. Please call us back to schedule an ultrasound next week. documented in this encounter [facility] 10-22-2023 Telephone encount er Note Please call us back to schedule an ultrasound next week. [facility] 10-22-2023 History of Presen t illness [...] increase p.o. hydration. documented in this encounter [facility] 10-16-2023 History of Presen t illness Narrative Headache/epigastric pain/blurry vision/swelling? No Cramping/contractions? No Abnormal vaginal discharge? No Spotting/vaginal bleeding? No Loss of fluid like your water may have broken? No Cats in the home? No Do you change the litter box? N/A Flu vaccine? No Genetic testing done this here or other office? Yes Have you been seen here at [facility] in a previous ? No Recent ER visits or hospitalizations? No Bring blood sugar log or meter with you today? (Please bring them with you for every visit at [facility]) N/A Traveled outside the country in the [...] Yes Not In System Ref Prov vit no.968-[id number]-hybfo acid ( VITAMIN) 27 mg iron- 800 [...] continue with routine care in your office [facility], the CDC, and other organizations representing maternal and public health professionals recommend that , , and lactating people and those considering receive the COVID-19 vaccination. Vaccination is the best method to reduce maternal and complications of SARS-CoV-2 infection. This document was created with [employer] technology. Though I make every effort to review the dictation as it is transcribed, on occasion the spoken word can be misinterpreted by the technology leading to inappropriate words, phrases, or sentences. This note is addressed to the requesting provider as a consultation for clinical guidance. Specific medical abbreviations are occasionally used and those are generally approved by the [place]?Board of?Obstetrics and?Gynecology?as well as?James s abbreviations. The above plan of care was based solely on the diagnoses for which a consultation was requested. ?More frequent testing may be indicated based on her other medical/obstetrical conditions. The management of other or medical conditions is beyond the scope of requested consultation and will continue to be followed by the primary signwriter or primary care provider. Thank you for allowing me to participate in her care. Please contact me if you have any concerns. documented in this encounter [employer] 03-16-2022 Note PROCEDURE: XR SHOULD ER RT 2V or > HISTORY: Impingement syndrome of right shoulder region ; acute right shoulder pain, no known injury COMPARISON: None. FINDINGS: BONES:No fracture, acute abnormality, or significant arthropathy. SOFT TISSUES:No visible soft tissue swelling. EFFUSION:None visible. OTHER: Negative. IMPRESSION: 1. Normal examination. Electronically authenticated by: GENI CABRAL Date: 2022-03-16 18:16 [facility] Evaluation note Diagnosis High-risk in second trimester- Primary History of oligohydramnios in prior , currently with other poor obstetric history 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 20 weeks gestation of [facility] History of oligohydramnios in prior , currently - Primary with other poor obstetric history [facility] Diagnosis Second trimester state, incidental with normal glucose tolerance test (GTT) Diabetes mellitus screening Screening for diabetes mellitus History of miscarriage Personal history of other genital system and obstetric disorders History of oligohydramnios documented in this encounter [facility]ructionsNot on filedocumented in this encounterPro[facility] SystemInstructionsNot on filedocumented in this encounterProC[facility] SystemInstructionsNot on filedocumented in this encounterProCincinnati [facility] SystemInstructionsNot on filedocumented in this encounterUK Healthcare System Summary Purpose Family History No Family [...] without consult Haseeb Nice MD [address], [address] [place] [address] [facility] [address] [place] [address] Referral ID Status Reason Start Date Expiration Date V isits Requested Visits Authorized [id number] Pending Review 10/17/2023 10/16/2024 1 1 Additional Source Comments INFORMATION SOURCE (unrecogn ized section and content) DATE CREATED AUTHOR 01/31/2023 [facility] DATE CREATED AUTHOR AUTHOR'S ORGANIZ ATION 10/20/2023 [facility] DATE CREATED AUTHOR AUTHOR'S ORGANIZ ATION 11/24/2023 [facility] DATE CREATED AUTHOR AUTHOR'S ORGANIZ ATION 01/01/2024 [facility] EPIC Reason for Visit [...] BE BASED ON THE PRIMARY CLINICAL RECORDS. [facility] [employer] [facility]. provides no warranty or guarantee of the accuracy or completeness of information in this document.
== END 2023-12-19 11:50 | disposition home or self-care (01) ==
LOC: FBCO 07:17 → FBC 10:18
PROVIDERS: Visit Provider Obstetrics & Gynecology
DX: O26.893 Other specified pregnancy related conditions, third trimester (principal)
CPT/HCPCS: 59025

== ENCOUNTER 2023-12-23 07:40 | Outpatient (OUT) | payer OTHER, SELFPAY ==
--- NOTE | 2023-12-23 | US_ITS ---
[address] [address] Patient Name: JERAMY SWEENEY MRN: [id number] date: 1995 Sex: F Assigned Patient Location: [facility] Current Patient Location: [facility] Accession/Order Number: [id number] Exam Date: 12/23/2023 14:15 Report Date: 12/23/2023 14:58 At the request of: BRIA DIAL Procedure: US OB BPP w non-stress EXAMINATION: US OB BPP w non-stress HISTORY: History of miscarriage Z87.59, History of oligohydramnios COMPARISON: 12/16/2023 TECHNIQUE: Ultrasound biophysical profile was performed in the radiology department. FINDINGS: BREATHING MOVEMENTS: 2.0 GROSS BODY MOVEMENTS: 2.0 TONE: 2.0 QUALITATIVE AMNIOTIC FLUID VOLUME: 2.0 PRESENTATION: CEPHALIC HEART RATE: 142.9 bpm H.B./min AMNIOTIC FLUID VOLUME: 18.1 cm cm GESTATIONAL AGE: 30 weeks 0 days CONCLUSION: Total biophysical profile score: 8.0 Electronically authenticated by: ALFA TEJEDA Date: 12/23/2023 14:58
--- OUTSIDE RECORDS SUMMARY | 2023-12-23 07:54 | XMS_ITS | CCD ---
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] Onset: 01-23-2023 Episodic Other [...] UA Negative Negative - 4(70) +++ mg/dL [facility] Blood, UA Negative Negative - 50 Felice/mcL [facility] Clarity, UA Clear [facility] Color, UA Yellow [facility] Glucose, UA Negative Negative - 1999(110) ++++ mg/dL [facility] Interpretation and review of laboratory results Normal [facility] Ketones, UA Negative Negative - 160(16) ++++ mg/dL [facility] Leukocytes, UA Negative Negative - 500+++ Regina/mcL [facility] Nitrite, UA Negative Negative - Positive [facility] pH, UA 5.5 5 - 9 [facility] Protein, UA Negative Negative - 1999(20) ++++ mg/dL [facility] Spec Grav, UA 1.030 1 - 1.03 [facility] Urobilinogen, UA 0.2 0.2 - 12 mg/dL [facility] PREG QUANT HCGon 01-28-2023 HCG QUANT 17 mIU/mL Normal [facility] Comment on above: Performed By: #### P REGQNT #### [facility] [address] [address] [address] Anna Romero HCG RANGE SEE BELOW Normal [facility] Comment on above: Result Comment: 5-50 0.2-1 WEEK 50-500 1-2 WEEKS 100-5,000 2-3 WEEKS 500-10,000 3-4 WEEKS 1,000-50,000 4-5 WEEKS 10,000-100,000 5-6 WEEKS 15,000-200,000 6-8 WEEKS 10,000-100,000 2-3 MONTHS Performed By: #### P REGQNT #### [facility] [address] [place] [address] Dr. Anna Romero PREG QUANT HCGon 01-23-2023 HCG QUANT 441 mIU/mL Normal [facility] Comment on above: Performed By: #### S CARLA GRASTCX #### [facility] [address] [place] [address] Dr. Anna Romero HCG RANGE SEE BELOW Normal [facility] Comment on above: Result Comment: 5-50 0.2-1 WEEK 50-500 1-2 WEEKS 100-5,000 2-3 WEEKS 500-10,000 3-4 WEEKS 1,000-50,000 4-5 WEEKS 10,000-100,000 5-6 WEEKS 15,000-200,000 6-8 WEEKS 10,000-100,000 2-3 MONTHS Performed By: #### S CARLA GRASTCX #### [facility] [address] [place] [address] Dr. Anna Romero ABO AND RH TYPEon 01-21-2023 ABO and Rh group Nom (Bld) ABO Rh Typing A Rh Positive Normal [facility] Comment on above: Performed By: #### S CARLA GRASTCX #### [facility] [address] [place] [address] Dr. Anna Romero ER URINE PROFILEon 3 Bilirubin Ql (U) Negative Normal NEGATIVE [facility] Comment on above: Performed By: #### VINCENT URIAS #### [facility] [address] [place] [address] Dr. Anna Romero Clarity (U) CLEAR Normal CLEAR [facility] Comment on above: Performed By: #### JD URIASRO #### [facility] [address] [place] [address] Dr. Anna Romero Color (U) YELLOW Normal YELLOW [facility] Comment on above: Performed By: #### Yared BARBOSA UMICRO #### [facility] [address] [place] [address] Dr. Anna BAER A micrscopic examination will be performed if indicated. Normal [facility] Comment on above: Performed By: #### Yared BARBOSA UMICRO #### [facility] [address] [place] [address] Dr. Anna Romero Glucose Ql (U) Negative Normal NEGATIVE [facility] Comment on above: Performed By: #### Yared BARBOSA UMICRO #### [facility] [address] [place] [address] Dr. Anna Romero Hemoglobin Ql (U) LARGE Abnormal NEGATIVE [facility] Comment on above: Performed By: #### Yared BARBOSA UMICRO #### [facility] [address] [place] [address] Dr. Anna Romero Ketones Ql (U) Negative Normal NEGATIVE [facility] Comment on above: Performed By: #### Yared BARBOSA UMICRO #### [facility] [address] [place] [address] Dr. Anna Romero LEUKOCYTES Negative Normal NEGATIVE [facility] Comment on above: Performed By: #### Yared BARBOSA UMICRO #### [facility] [address] [place] [address] Dr. Anna Romero Nitrite Ql (U) Negative Normal NEGATIVE [facility] Comment on above: Performed By: #### Yared BARBOSA UMICRO #### [facility] [address] [place] [address] Dr. Anna Romero pH (U) 5.5 [pH] Normal 5-9 [facility] Comment on above: Performed By: #### Yared BARBOSA UMICRO #### [facility] [address] [place] [address] Dr. Anna Romero SPEC GRAVITY >=1.030 Abnormal 1.005-<=1.025 [facility] Comment on above: Performed By: #### JD URIASRO #### [facility] [address] [place] [address] Dr. Anna Romero UA PROTEIN TRACE Normal NEGATIVE/ TRACE [facility] Comment on above: Performed By: #### E RUR UMICRO #### [facility] [address] [place] [address] Dr. Anna Romero UR MICRO IND INDICATED Normal [facility] Comment on above: Performed By: #### E JD BARBOSARO #### [facility] [address] [place] [address] Dr. Anna Romero Urobilinogen Qn (U) 0.2 {Joel'U}/dL Normal 0.2 - 1. 0 [facility] Comment on above: Performed By: #### E JD BARBOSARO #### [facility] [address] [place] [address] Dr. Anna Romero PREG QUANT HCGon 01-21-2023 HCG QUANT 1693 mIU/mL Normal [facility] Comment on above: Performed By: #### S SCRN, GRASTCX #### [facility] [address] [place] [address] Dr. Anna Romero HCG RANGE SEE BELOW Normal [facility] Comment on above: Result Comment: 5-50 0.2-1 WEEK 50-500 1-2 WEEKS 100-5,000 2-3 WEEKS 500-10,000 3-4 WEEKS 1,000-50,000 4-5 WEEKS 10,000-100,000 5-6 WEEKS 15,000-200,000 6-8 WEEKS 10,000-100,000 2-3 MONTHS Performed By: #### S SCRN, GRASTCX #### [facility] [address] [place] [address] Dr. Anna Romero URINE MICROSCOPIC ONLYon BACTERIA TRACE Abnormal NONE SEEN [facility] Comment on above: Performed By: #### E TAYLORR, UMICRO #### [facility] [address] [place] [address] Dr. Anna Romero Bacteria identified Cx Nom (U) NOT INDICATED Normal [facility] Comment on above: Performed By: #### E RUR, UMICRO #### [facility] [address] [place] [address] Dr. Anna Romero CAST NONE SEEN Normal NONE SEEN [facility] Comment on above: Performed By: #### Yared BARBOSA UMICRO #### [facility] [address] [place] [address] Dr. Anna Romero Crystals LM Nom (Urine sed) NONE SEEN Normal NONE SEEN [facility] Comment on above: Performed By: #### Yared BARBOSA UMICRO #### [facility] [address] [place] [address] Dr. Anna Romero Epithelial cells LM Ql (Urine sed) RARE Normal NONE SEEN /RARE [facility] Comment on above: Performed By: #### Yared BARBOSA UMICRO #### [facility] [address] [place] [address] Dr. Anna Romero MUCOUS TRACE Abnormal NONE SEEN [facility] Comment on above: Performed By: #### Yared BARBOSA UMICRO #### [facility] [address] [place] [address] Dr. Anna Romero RBC 2-5 Abnormal 0-2 [facility] Comment on above: Performed By: #### Yared BARBOSA UMICRO #### [facility] [address] [place] [address] Dr. Anna Romero WBC 0-2 Abnormal NONE SEEN [facility] Comment on above: Performed By: #### Yared BARBOSA UMICRO #### [facility] [address] [place] [address] Dr. Anna Romero US PREG TVon 01-21-2023 [...] LUDWIG JEAN BAPTISTE Date: 2023-01-21 16:54 Normal [facility] ER URINE PROFILEon 3 Bilirubin Ql (U) Negative Normal NEGATIVE [facility] Comment on above: Performed By: #### E RUR #### [facility] [address] [place] [address] Dr. Anna Romero Clarity (U) CLEAR Normal CLEAR [facility] Comment on above: Performed By: #### E RUR #### [facility] [address] [place] [address] Dr. Anna Romero Color (U) YELLOW Normal YELLOW [facility] Comment on above: Performed By: #### E RUR #### [facility] [address] [place] [address] Dr. Anna BAER A micrscopic examination will be performed if indicated. Normal [facility] Comment on above: Performed By: #### E RUR #### [facility] [address] [place] [address] Dr. Anna Romero Glucose Ql (U) Negative Normal NEGATIVE [facility] Comment on above: Performed By: #### E RUR #### [facility] [address] [place] [address] Dr. Anna Romero Hemoglobin Ql (U) Negative Normal NEGATIVE [facility] Comment on above: Performed By: #### E RUR #### [facility] [address] [place] [address] Dr. Anna Romero Ketones Ql (U) Negative Normal NEGATIVE [facility] Comment on above: Performed By: #### E RUR #### [facility] [address] [place] [address] Dr. Anna Romero LEUKOCYTES Negative Normal NEGATIVE [facility] Comment on above: Performed By: #### E RUR #### [facility] [address] [place] [address] Dr. Anna Romero Nitrite Ql (U) Negative Normal NEGATIVE [facility] Comment on above: Performed By: #### E RUR #### [facility] [address] [place] [address] Dr. Anna Romero pH (U) 6.5 [pH] Normal 5-9 [facility] Comment on above: Performed By: #### E RUR #### [facility] [address] [place] [address] Dr. Anna Romero SPEC GRAVITY 1.025 Normal 1.005-<=1.025 [facility] Comment on above: Performed By: #### E RUR #### [facility] [address] [place] [address] Dr. Anna Romero UA PROTEIN TRACE Normal NEGATIVE/ TRACE [facility] Comment on above: Performed By: #### E RUR #### [facility] [address] [place] [address] Dr. Anna Romero UR MICRO IND NOT INDICATED Normal [facility] Comment on above: Performed By: #### E RUR #### [facility] [address] [place] [address] Dr. Anna Romero Urobilinogen Qn (U) 0.2 {Joel'U}/dL Normal 0.2 - 1. 0 [facility] Comment on above: Performed By: #### E RUR #### [facility] [address] [place] [address] Dr. Anna Romero GROUP A STREP CULTUREon 12-13 S. pyogenes Ag Ql (Unsp spec) Culture Observations: NEGATIVE FOR GROUP A STREPTOCOCCUS. Normal [facility] Comment on above: Performed By: #### S SCRN, GRASTCX #### [facility] [address] [place] [address] Dr. Anna Romero STREPT SCREENon 01-08-2023 STREP SCREEN A Negative Normal NEGATIVE [facility] Comment on above: Performed By: #### S SCRN, GRASTCX #### [facility] [address] [place] [address] Dr. Anna Romero SYMPTOMATIC COVID-19 ANTIGEN on 01-08-2023 EUA Statement SEE BELOW Normal [facility] Comment on above: Result Comment: This [...] Performed By: #### S SCRN, GRASTCX #### [facility] [address] [place] [address] Dr. Anna Romero SARS-CoV-2 (COVID-19) RNA DAVY+probe Ql (Unsp spec) Positive Abnormal NEGATIVE [facility] Comment on above: Performed By: #### S SCRN, GRASTCX #### [facility] [address] [place] [address] Dr. Anna Romero US PREG TVon 05-31-2022 [...] GENI CABRAL Date: 2022-05-31 19:46 Normal [facility] BILIRUBIN TOTALon 03-16-2022 Bilirubin [Mass/Vol] 0.3 mg/dL Normal 0.2-1.0 [facility] Comment on above: Performed By: #### T DALE #### [facility] [address] [place] [address] Dr. Anna Romero CBC AUTO DIFFon 03-16-2022 BASO # 0.0 103/ul Normal 0.0-0.1 [facility] Comment on above: Performed By: #### C BC #### [facility] [address] [place] [address] Dr. Anna Romero Basophils/100 WBC (Bld) 0.4 % Normal 0.2-2.0 [facility] Comment on above: Performed By: #### C BC #### [facility] [address] [place] [address] Dr. Anna Romero EO # 0.0 103/ul Normal 0.0-0.7 [facility] Comment on above: Performed By: #### C BC #### [facility] [address] [place] [address] Dr. Anna Romero Eosinophils/100 WBC (Bld) 0.2 % Critically low 0.9-7.0 [facility] Comment on above: Performed By: #### C BC #### [facility] [address] [place] [address] Dr. Anna Romero Erythrocyte distribution width (RBC) [Ratio] 12.8 % Normal 11.0-15.0 [facility] Comment on above: Performed By: #### C BC #### [facility] [address] [place] [address] Dr. Anna Romero Hematocrit (Bld) [Volume fraction] 39.2 % Normal 36.0-48.0 [facility] Comment on above: Performed By: #### C BC #### [facility] [address] [place] [address] Dr. Anna Romero Hemoglobin (Bld) [Mass/Vol] 12.9 g/dL Normal 12.0-16.0 [facility] Comment on above: Performed By: #### C BC #### [facility] [address] [place] [address] Dr. Anna Romero IG # 0.01 10e3/ul Normal 0.00-0.03 [facility] Comment on above: Performed By: #### C BC #### [facility] [address] [place] [address] Dr. Anna Romero IG % 0.2 % Normal 0.0-0.5 [facility] Comment on above: Performed By: #### C BC #### [facility] [address] [place] [address] Dr. Anna Romero LYMPH # 1.6 103/ul Normal 1.2-3.8 [facility] Comment on above: Performed By: #### C BC #### [facility] [address] [place] [address] Dr. Anna Romero Lymphocytes/100 WBC (Bld) 29.8 % Normal 20.5-60.0 [facility] Comment on above: Performed By: #### C BC #### [facility] [address] [place] [address] Dr. Anna Romero MANUAL DIFF REQ NO Normal [facility] Comment on above: Performed By: #### C BC #### [facility] [address] [place] [address] Dr. Anna Romero MCH (RBC) [Entitic mass] 31.8 pg Normal 26.7-34.0 [facility] Comment on above: Performed By: #### C BC #### [facility] [address] [place] [address] Dr. Anna Romero MCHC (RBC) [Mass/Vol] 32.9 g/dL Normal 29.9-35.2 [facility] Comment on above: Performed By: #### C BC #### [facility] [address] [place] [address] Dr. Anna Romero MCV (RBC) [Entitic vol] 96.6 fL Normal 81.0-99.0 [facility] Comment on above: Performed By: #### C BC #### [facility] [address] [place] [address] Dr. Anna Romero MONO # 0.4 103/ul Normal 0.3-0.8 [facility] Comment on above: Performed By: #### C BC #### [facility] [address] [place] [address] Dr. Anna Romero Monocytes/100 WBC (Bld) 7.2 % Normal 1.7-12.0 [facility] Comment on above: Performed By: #### C BC #### [facility] [address] [place] [address] Dr. Anna Romero NEUT # 3.3 103/ul Normal 1.4-6.5 [facility] Comment on above: Performed By: #### C BC #### [facility] [address] [place] [address] Dr. Anna Romero Neutrophils/100 WBC (Bld) 62.2 % Normal 43.0-75.0 [facility] Comment on above: Performed By: #### C BC #### [facility] [address] [place] [address] Dr. Anna Romero Platelet mean volume (Bld) [Entitic vol] 10.0 fL Normal 9.5-13.5 [facility] Comment on above: Performed By: #### C BC #### [facility] [address] [place] [address] Dr. Anna Romero PLT 153 103/ul Normal 150-450 [facility] Comment on above: Performed By: #### C BC #### [facility] [address] [place] [address] Dr. Anna Romero RBC 4.06 106/ul Critically low 4.20-5.40 [facility] Comment on above: Performed By: #### C BC #### [facility] [address] [place] [address] Dr. Anna Romero WBC 5.3 103/ul Normal 4.0-11.0 [facility] Comment on above: Performed By: #### C BC #### [facility] [address] [place] [address] Dr. Anna Romero FREE T3on 03-16-2022 FREE T3 3.18 pg/mlL Normal 2.18-3.98 [facility] Comment on above: Performed By: #### S SCRN GRASTCX #### [facility] [address] [place] [address] Dr. nAna Romero FREE T4on 03-16-2022 Free T4 [Mass/Vol] 1.08 ng/dL Normal 0.76-1.46 [facility] Comment on above: Performed By: #### F T4 #### [facility] [address] [place] [address] Dr. Anna Romero PROF 14(COMP METB)on 022 Albumin [Mass/Vol] 4.3 g/dL Normal 3.4-5.0 [facility] Comment on above: Performed By: #### S SCRN GRASTCX #### [facility] [address] [place] [address] Dr. Anna Romero Albumin/Globulin [Mass ratio] 1.2 {ratio} Normal [facility] Comment on above: Performed By: #### S SCRN GRASTCX #### [facility] [address] [place] [address] Dr. Anna Romero ALP [Catalytic activity/Vol] 60 U/L Normal 46-116 [facility] Comment on above: Performed By: #### S SCRN, GRASTCX #### [facility] [address] [address] [address] Anna Romero ALT [Catalytic activity/Vol] 25 U/L Normal 14-59 [facility] Comment on above: Performed By: #### S SCRN, GRASTCX #### [facility] [address] [address] [address] Anna Romero Anion gap [Moles/Vol] 13.8 mmol/L Normal [facility] Comment on above: Performed By: #### S SCRN, GRASTCX #### [facility] [address] [place] [address] Dr. Anna Romero AST [Catalytic activity/Vol] 21 U/L Normal 15-37 [facility] Comment on above: Performed By: #### S SCRN, GRASTCX #### [facility] [address] [place] [address] Dr. Anna Romero Calcium [Mass/Vol] 9.4 mg/dL Normal 8.5-10.1 [facility] Comment on above: Performed By: #### S SCRN, GRASTCX #### [facility] [address] [place] [address] Dr. Anna Romero Chloride [Moles/Vol] 101 mmol/L Normal 98-107 [facility] Comment on above: Performed By: #### S SCRN, GRASTCX #### [facility] [address] [place] [address] Dr. Anna Romero CO2 [Moles/Vol] 26.8 mmol/L Normal 21.0-32.0 [facility] Comment on above: Performed By: #### S SCRN, GRASTCX #### [facility] [address] [place] [address] Dr. Anna Romero Creatinine [Mass/Vol] 0.87 mg/dL Normal 0.55-1.02 [facility] Comment on above: Performed By: #### S SCRN, GRASTCX #### [facility] [address] [place] [address] Dr. Anna Romero EGFR-AF QATARI >60 Normal >=60 [facility] Comment on above: Performed By: #### S SCRN, GRASTCX #### [facility] [address] [address] [address] Anna Romero EGFR-NON AF QATARI >60 Normal >=60 [facility] Comment on above: Performed By: #### S SCRN, GRASTCX #### [facility] [address] [address] [address] Anna Romero Globulin (S) [Mass/Vol] 3.5 g/dL Normal [facility] Comment on above: Performed By: #### S SCRN, GRASTCX #### [facility] [address] [place] [address] Dr. Anna Romero Glucose [Mass/Vol] 80 mg/dL Normal 74-106 [facility] Comment on above: Performed By: #### S SCRN, GRASTCX #### [facility] [address] [place] [address] Dr. Anna Romero Potassium [Moles/Vol] 3.6 mmol/L Normal 3.5-5.1 [facility] Comment on above: Performed By: #### S SCRN, GRASTCX #### [facility] [address] [address] [address] Anna Romero Protein [Mass/Vol] 7.8 g/dL Normal 6.4-8.2 [facility] Comment on above: Performed By: #### S SCRN, GRASTCX #### [facility] [address] [address] [address] Anna Romero Sodium [Moles/Vol] 138 mmol/L Normal 136-145 [facility] Comment on above: Performed By: #### S SCRN, GRASTCX #### [facility] [address] [address] [address] Anna Romero Urea nitrogen [Mass/Vol] 12.0 mg/dL Normal 7.0-18.0 [facility] Comment on above: Performed By: #### S SCRN, GRASTCX #### [facility] [address] [address] [address] Anna Romero Urea nitrogen/Creatinine [Mass ratio] 13.8 mg/mg Normal [facility] Comment on above: Performed By: #### S SCRN, GRASTCX #### [facility] [address] [place] [address] Dr. Anna Romero TSHon 03-16-2022 TSH 2.442 uIU/mL Normal 0.358-3.[address] [facility] Comment on above: Performed By: #### S SCRN, GRASTCX #### [facility] [address] [place] [address] Dr. Anna Romero TSH RANGE SEE BELOW Normal [facility] Comment on above: Result Comment: <0.3 4 UIU/ml HYPERTHYROID 0.34-5.60 UIU/ml EUTHYROID >5.60 UIU/ml HYPOTHYROID Performed By: #### S SCRN, GRASTCX #### [facility] [address] [place] [address] Dr. Anna Romero Vital Signs Date Time Vital Sign Value Performing Clinician Faci lity 11-27-2023 14:46-0500 Body mass index (BMI) [Ratio] 25.66 kg/m2 Rosana HAYES Work Phone: [facility] 11-27-2023 14:46-0500 Body weight 72.12 kg Rosana HAYES Work Phone: [facility] 11-27-2023 14:46-0500 Diastolic blood pressure 60 mm[Hg] Rosana HAYES Work Phone: [facility] 11-27-2023 14:46-0500 Systolic blood pressure 102 mm[Hg] Rosana HAYES Work Phone: [facility] 10-16-2023 12:21-0500 Body height 170.2 cm Haseeb Nice MD Work Phone: [facility] 10-16-2023 12:21-0500 Body mass index (BMI) [Ratio] 22.55 kg/m2 Haseeb Nice MD Work Phone: [facility] 10-16-2023 12:21-0500 Body weight 65.32 kg Haseeb Nice MD Work Phone: [facility] 10-16-2023 12:21-0500 Diastolic blood pressure 66 mm[Hg] Haseeb Nice MD Work Phone: [facility] 10-16-2023 12:21-0500 Heart rate 79 /min Haseeb Nice MD Work Phone: [facility] 10-16-2023 12:21-0500 Systolic blood pressure 109 mm[Hg] Haseeb Nice MD Work Phone: [facility] Encounters Encounter Date Encounter Type Care [...] of oligohydramnios Start: 11-19-2023 End: 11-20-[address] [facility] Start: 10-29-2023 End: 10-30-2023 ambulatory BRIA [facility] Start: 10-28-2023 End: 10-28-2023 ambulatory BRIA YOJANA Not Available Start: 10-22-2023 Documentation procedure Haseeb Nice MD Work Phone: [facility] Start: 10-22-2023 Telephone encounter Rachelle TREJO [facility] Start: 10-21-2023 Chart abstracting Aliya berger MD Work Phone: [facility] Start: 10-17-2023 Orders Only Robbi Rodriguez [facility]- Medicine at [facility] Comment on above: History of oligohydr amnios in prior , currently (Primary Dx) Start: 10-16-2023 End: 10-17-2023 ambulatory BRIA BALES [facility] Start: 10-16-2023 End: 10-16-2023 Office outpatient new 45 minutes Haseeb Nice MD Work Phone: [facility] Comment on above: High-risk in second trimester (Primary Dx); History of oligohydramnios in prior , currently ; 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; 20 weeks gestation of Start: 10-15-2023 Chart abstracting Scanning Pro vider External [facility] Start: 10-08-2023 End: 10-08-2023 ambulatory BRIA BALES [...] Td Vaccines (9 - Td or Tdap) [facility] Start: 10-17-2024 End: 10-17-2024 US MFM with or without consult US MFM with or without consult Imaging Routine History of oligohydramnios in prior , currently Expected: 10/17/2024 (Approximate), Expires: 10/17/2024 [facility] Work Phone: Comment on above: Expected: 10/17/2024 (Approximate), Expires: 10/17/2024 Start: 10-16-2024 Adult BMI Screening Adult BMI Screen ing [facility] Start: 10-16-2024 Tobacco Screening Tobacco Screening [facility] Start: 12-11-2023 End: 12-11-2023 Patient encounter procedure 12/11/2023 10:20 AM EST Routine [facility] [address] [place] [id number] Bria Bales, [address] [place] [address] [facility] Start: 11-27-2023 End: 11-27-2024 CBC panel - Blood by Automated count CBC Lab Routine Diabetes mellitus screening Expected: 11/27/2023 (Approximate), Expires: 11/27/2024 [facility] Work Phone: Comment on above: Expected: 11/27/2023 (Approximate), Expires: 11/27/2024 Start: 11-27-2023 End: 11-27-2024 Measurement of glucose 1 hour after glucose challenge for glucose tolerance test Glucose tolerance, 1 hour Lab Routine Diabetes mellitus screening Expected: 11/27/2023 (Approximate), Expires: 11/27/2024 [facility] Comment on above: Expected: 11/27/2023 (Approximate), Expires: 11/27/2024 Start: 11-27-2023 End: 11-27-2024 US biophysical profile w non stress test US biophysical profile w non stress test Imaging Routine History of miscarriage History of oligohydramnios Expected: 11/27/2023 (Approximate), Expires: 11/27/2024 [facility] Comment on above: Expected: 11/27/2023 (Approximate), Expires: 11/27/2024 Start: 11-27-2023 End: 11-27-2024 US for US OB SCAN FOR GROWTH Imaging Routine History of miscarriage History of oligohydramnios Expected: 11/27/2023 (Approximate), Expires: 11/27/2024 [facility] Comment on above: Expected: 11/27/2023 (Approximate), Expires: 11/27/2024 Start: 11-19-2023 End: 11-19-2023 Patient encounter procedure 11/19/2023 9:15 AM EST Appointment [facility] - Ultrasound [address] [place] [address] [facility] - [facility]trasound Start: 10-29-2023 End: 10-29-2023 Patient encounter procedure 10/29/2023 9:15 AM EST Appointment [facility] - Ultrasound [address] [place] [address] [facility] - Ultrasound Start: 10-16-2023 End: 10-16-2023 Patient encounter procedure 10/16/2023 1:00 PM EST Office Visit [facility] at [facility] [address] [place] [address] Haseeb Nice MD [address] [address] [facility] Start: 10-16-2023 Subsequent hospital visit by physician 10/16/2023 11:30 AM EST Hospital Encounter [facility] Imaging [address] [place] [address] [facility] Start: 06-14-2023 Influenza vaccination Influenza Vacc ine [facility] Start: 2014 Screening for malignant neoplasm of cervix Pap Smear [facility] Start: 2012 DTaP,Tdap and Td Vaccines (1 - Tdap) DTaP,Tdap and Td Vaccines (1 - Tdap) [facility] Start: 2011 Adult BMI Screening Adult BMI Screen ing [facility] Start: 2005 Depression Screening Depression Scre ening [facility] Start: 2005 Tobacco Screening Tobacco Screening [facility] Start: 1993 Tobacco Counseling Tobacco Counselin g [facility] Payers Date Payer Category Payer Medicaid [id number] 1993 Unknown [id number] 2.16.84 0.1.749359.3.579.2.593 1993 Unknown [id number] 2.16.84 0.1.196481.3.579.2.593 1993 Unknown [id number] 2.16.84 0.1.552136.3.579.2.593 1993 Unknown [id number] 2.16.84 0.1.760686.3.579.2.593 1993 Unknown [id number] 2.16.84 0.1.863100.3.579.2.593 1993 Unknown [id number] 2.16.84 0.1.087379.3.579.2.593 1993 Unknown [id number] 2.16.84 0.1.828697.3.579.2.593 1993 Unknown [id number] 2.16.84 0.1.689101.3.579.2.593 1993 Unknown [id number] 2.16.84 0.1.787185.3.579.2.593 1993 Unknown [id number] 2.16.84 0.1.979487.3.579.2.593 1993 Unknown [id number] 2.16.84 0.1.001297.3.579.2.593 1993 Unknown [id number] 2.16.84 0.1.984621.3.579.2.593 1993 Unknown [id number] 2.16.84 0.1.152330.3.579.2.1286 1993 Unknown [id number] 2.16.84 0.1.701846.3.579.2.1286 1993 Unknown [id number] 2.16.8 40.1.886581.3.579.2.1286 1993 Unknown [id number] 2.16.84 0.1.731225.3.579.2.1286 1993 Unknown [id number] 2.16.84 0.1.883572.3.579.2.1259 1993 Unknown [id number] 2.16.84 0.1.037637.3.579.2.1259 1993 Unknown [id number] 2.16.84 0.1.604941.3.579.2.1259 1993 Unknown [id number] 2.16.840 .1.257203.3.579.2.1259 1993 Unknown [id number] 2.16.840 .1.049132.3.579.2.1259 1959 Self-pay [id number] 1959 Unknown [id number] 1959 Unknown [id number] Social History Date Type Detail Facility Start: 10-15-2023 Tobacco smoking status IAIS Tobacco smoking consumption unknown [facility] Start: 03-23-2019 End: 10-16-2023 History of Social function [facility] Start: 03-23-2019 End: 10-16-2023 Housing Instability [facility] Housing Instability Unknown [facility] Start: 06-10-2023 [facility] Start: 1995 Sex Assigned At Not on file [facility] Start: 10-16-2023 Tobacco smoking status NHIS Smokes tobacco daily [facility] History of tobacco use Cigarette Smoker P Yaneli [facility] Start: 10-16-2023 Tobacco use and exposure Smokeless tobacco non-user [facility] Start: 10-16-2023 End: 10-21-2023 Alcohol intake Ex-drinker (finding) [facility] Start: 1995 Sex Assigned At Female [facility] Start: 08-07-2023 Gender identity Identifies as female gender (finding) [facility] Start: 08-07-2023 Sexual orientation Heterosexual (finding) [facility] Goals Date Patient Goal Desired Activity [...] of: ABIGAIL Chinchilla documented in this encounter [facility] 10-22-2023 Miscellaneous Notes Formattin g of this note might be different from the original. Please call us back to schedule an ultrasound next week. documented in this encounter [email or web address] 10-22-2023 Telephone encount er Note Please call us back to schedule an ultrasound next week. [facility] 10-22-2023 History of Presen t illness [...] increase p.o. hydration. documented in this encounter [facility] 10-16-2023 History of Presen t illness Narrative Headache/epigastric pain/blurry vision/swelling? No Cramping/contractions? No Abnormal vaginal discharge? No Spotting/vaginal bleeding? No Loss of fluid like your water may have broken? No Cats in the home? No Do you change the litter box? N/A Flu vaccine? No Genetic testing done this here or other office? Yes Have you been seen here at [facility] in a previous ? No Recent ER visits or hospitalizations? No Bring blood sugar log or meter with you today? (Please bring them with you for every visit at [facility]) N/A Traveled outside the country in the past 6 month No Any concerns that you would like me to mention to the provider today? No [facility] Maternal- Medicine Consult Note Reason For [...] Yes Not In System Ref Prov vit no.066-wksz-djoel acid ( VITAMIN) 27 mg iron- 800 [...] continue with routine care in your office [facility], the CDC, and other organizations representing maternal and public health professionals recommend that , , and lactating people and those considering receive the COVID-19 vaccination. Vaccination is the best method to reduce maternal and complications of SARS-CoV-2 infection. This document was created with [employer] technology. Though I make every effort to review the dictation as it is transcribed, on occasion the spoken word can be misinterpreted by the technology leading to inappropriate words, phrases, or sentences. This note is addressed to the requesting provider as a consultation for clinical guidance. Specific medical abbreviations are occasionally used and those are generally approved by the [place]?Board of?Obstetrics and?Gynecology?as well as?[place] s abbreviations. The above plan of care was based solely on the diagnoses for which a consultation was requested. ?More frequent testing may be indicated based on her other medical/obstetrical conditions. The management of other or medical conditions is beyond the scope of requested consultation and will continue to be followed by the primary financial rep or primary care provider. Thank you for allowing me to participate in her care. Please contact me if you have any concerns. documented in this encounter [email or web address] 03-16-2022 Note PROCEDURE: XR SHOULD ER RT 2V or > HISTORY: Impingement syndrome of right shoulder region ; acute right shoulder pain, no known injury COMPARISON: None. FINDINGS: BONES:No fracture, acute abnormality, or significant arthropathy. SOFT TISSUES:No visible soft tissue swelling. EFFUSION:None visible. OTHER: Negative. IMPRESSION: 1. Normal examination. Electronically authenticated by: GENI CABRAL Date: 2022-03-16 18:16 [facility] Evaluation note Diagnosis High-risk in second trimester- Primary History of oligohydramnios in prior , currently with other poor obstetric history 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 20 weeks gestation of [facility] Diagnosis History of oligohydramnios in prior , currently - Primary with other poor obstetric history [facility] Diagnosis Second trimester state, incidental with normal glucose tolerance test (GTT) Diabetes mellitus screening Screening for diabetes mellitus History of miscarriage Personal history of other genital system and obstetric disorders History of oligohydramnios documented in this encounter [facility]ructionsNot on filedocumented in this encounterPro[facility] [place] SystemInstructionsNot on filedocumented in this encounterPro[facility] [place] SystemInstructionsNot on filedocumented in this encounterProSelect [facility] [place] SystemInstructionsNot on filedocumented in this encounterK[facility] Summary Purpose Family History No Family [...] without consult Haseeb Nice MD [address], [address] [place] [id number] [facility] [address] [place] [address] Referral ID Status Reason Start Date Expiration Date V isits Requested Visits Authorized [id number] Pending Review 10/17/2023 10/16/2024 1 1 Additional Source Comments INFORMATION SOURCE (unrecogn ized section and content) DATE CREATED AUTHOR 01/31/2023 [facility] DATE CREATED AUTHOR AUTHOR'S ORGANIZ ATION 10/20/2023 [facility] DATE CREATED AUTHOR AUTHOR'S ORGANIZ ATION 11/24/2023 [facility] DATE CREATED AUTHOR AUTHOR'S ORGANIZ ATION 12/17/2023 [facility] EPIC Reason for Visit (unrecogniz [...] BE BASED ON THE PRIMARY CLINICAL RECORDS. [facility] [employer] [facility]. provides no warranty or guarantee of the accuracy or completeness of information in this document.
[2023-12-23 14:41] VITALS: BP 105/58; PULSE 96
== END 2023-12-23 15:13 | disposition home or self-care (01) ==
LOC: US 07:52 → FBC 14:12
PROVIDERS: Visit Provider Obstetrics & Gynecology
DX: Z87.59 Personal history of other complications of pregnancy, childbirth and the puerperium (principal); Z3A.30 30 weeks gestation of pregnancy
CPT/HCPCS: 76818

== ENCOUNTER 2023-12-30 07:19 | Outpatient (OUT) | payer OTHER, SELFPAY ==
--- OUTSIDE RECORDS SUMMARY | 2023-12-30 07:23 | XMS_ITS | CCD ---
Author Name Unknown Address [id number] [place] [address] Organization [facility] Care Team Providers Care Industrial Sales Representative Name Role Phone RUSSELL, DR DEBBIE Mohan [...] for nausea or vomiting. 0 Active vit no.782-giaz-zzsns acid ( VITAMIN) 27 mg iron- 800 mcg tablet (6 sources) take 1 tablet by mouth in the morning vit no.544-nowq-uriik acid ( VITAMIN) 27 mg iron- 800 [...] 01-28-2023 Chronic Other aftercare (1 source) Other assisted (current) drug therapy; Translations: [OTH SUGAR CANE GROWER CURRENT DRUG THERAPY] Onset: 01-23-2023 Episodic Other [...] UA Negative Negative - 4(70) +++ mg/dL [facility] Blood, UA Negative Negative - 50 Felice/mcL [facility] Clarity, UA Clear [facility] Color, UA Yellow [facility] Glucose, UA Negative Negative - 1999(110) ++++ mg/dL [facility] Interpretation and review of laboratory results Normal [facility] Ketones, UA Negative Negative - 160(16) ++++ mg/dL [facility] Leukocytes, UA Negative Negative - 500+++ Regina/mcL [facility] Nitrite, UA Negative Negative - Positive [facility] pH, UA 5.5 5 - 9 [facility] Protein, UA Negative Negative - 1999(20) ++++ mg/dL [facility] Spec Grav, UA 1.030 1 - 1.03 [facility] Urobilinogen, UA 0.2 0.2 - 12 mg/dL [facility] PREG QUANT HCGon 01-28-2023 HCG QUANT 17 mIU/mL Normal [facility] Comment on above: Performed By: #### P REGQNT #### [facility] [address] [address] [address] Anna Romero HCG RANGE SEE BELOW Normal [facility] Comment on above: Result Comment: 5-50 0.2-1 WEEK 50-500 1-2 WEEKS 100-5,000 2-3 WEEKS 500-10,000 3-4 WEEKS 1,000-50,000 4-5 WEEKS 10,000-100,000 5-6 WEEKS 15,000-200,000 6-8 WEEKS 10,000-100,000 2-3 MONTHS Performed By: #### P REGQNT #### [facility] [address] [place] [address] Dr. Anna Romero PREG QUANT HCGon 01-23-2023 HCG QUANT 441 mIU/mL Normal [facility] Comment on above: Performed By: #### S CARLA GRASTCX #### [facility] [address] [place] [address] Dr. Anna Romero HCG RANGE SEE BELOW Normal [facility] Comment on above: Result Comment: 5-50 0.2-1 WEEK 50-500 1-2 WEEKS 100-5,000 2-3 WEEKS 500-10,000 3-4 WEEKS 1,000-50,000 4-5 WEEKS 10,000-100,000 5-6 WEEKS 15,000-200,000 6-8 WEEKS 10,000-100,000 2-3 MONTHS Performed By: #### S CARLA GRASTCX #### [facility] [address] [place] [address] Dr. Anna Romero ABO AND RH TYPEon 01-21-2023 ABO and Rh group Nom (Bld) ABO Rh Typing A Rh Positive Normal [facility] Comment on above: Performed By: #### S CARLA GRASTCX #### [facility] [address] [place] [address] Dr. Anna Romero ER URINE PROFILEon 3 Bilirubin Ql (U) Negative Normal NEGATIVE [facility] Comment on above: Performed By: #### VINCENT URIAS #### [facility] [address] [place] [address] Dr. Anna Romero Clarity (U) CLEAR Normal CLEAR [facility] Comment on above: Performed By: #### JD URIASRO #### [facility] [address] [place] [address] Dr. Anna Romero Color (U) YELLOW Normal YELLOW [facility] Comment on above: Performed By: #### Yared BARBOSA UMICRO #### [facility] [address] [place] [address] Dr. Anna BAER A micrscopic examination will be performed if indicated. Normal [facility] Comment on above: Performed By: #### Yared BARBOSA UMICRO #### [facility] [address] [place] [address] Dr. Anna Romero Glucose Ql (U) Negative Normal NEGATIVE [facility] Comment on above: Performed By: #### Yared BARBOSA UMICRO #### [facility] [address] [place] [address] Dr. Anna Romero Hemoglobin Ql (U) LARGE Abnormal NEGATIVE [facility] Comment on above: Performed By: #### Yared BARBOSA UMICRO #### [facility] [address] [place] [address] Dr. Anna Romero Ketones Ql (U) Negative Normal NEGATIVE [facility] Comment on above: Performed By: #### Yared BARBOSA UMICRO #### [facility] [address] [place] [address] Dr. Anna Romero LEUKOCYTES Negative Normal NEGATIVE [facility] Comment on above: Performed By: #### Yared BARBOSA UMICRO #### [facility] [address] [place] [address] Dr. Anna Romero Nitrite Ql (U) Negative Normal NEGATIVE [facility] Comment on above: Performed By: #### Yared BARBOSA UMICRO #### [facility] [address] [place] [address] Dr. Anna Romero pH (U) 5.5 [pH] Normal 5-9 [facility] Comment on above: Performed By: #### Yared BARBOSA UMICRO #### [facility] [address] [place] [address] Dr. Anna Romero SPEC GRAVITY >=1.030 Abnormal 1.005-<=1.025 [facility] Comment on above: Performed By: #### JD URIASRO #### [facility] [address] [place] [address] Dr. Anna Romero UA PROTEIN TRACE Normal NEGATIVE/ TRACE [facility] Comment on above: Performed By: #### E RUR UMICRO #### [facility] [address] [place] [address] Dr. Anna Romero UR MICRO IND INDICATED Normal [facility] Comment on above: Performed By: #### E JD BARBOSARO #### [facility] [address] [place] [address] Dr. Anna Romero Urobilinogen Qn (U) 0.2 {Joel'U}/dL Normal 0.2 - 1. 0 [facility] Comment on above: Performed By: #### E JD BARBOSARO #### [facility] [address] [place] [address] Dr. Anna Romero PREG QUANT HCGon 01-21-2023 HCG QUANT 1693 mIU/mL Normal [facility] Comment on above: Performed By: #### S SCRN, GRASTCX #### [facility] [address] [place] [address] Dr. Anna Romero HCG RANGE SEE BELOW Normal [facility] Comment on above: Result Comment: 5-50 0.2-1 WEEK 50-500 1-2 WEEKS 100-5,000 2-3 WEEKS 500-10,000 3-4 WEEKS 1,000-50,000 4-5 WEEKS 10,000-100,000 5-6 WEEKS 15,000-200,000 6-8 WEEKS 10,000-100,000 2-3 MONTHS Performed By: #### S SCRN, GRASTCX #### [facility] [address] [place] [address] Dr. Anna Romero URINE MICROSCOPIC ONLYon BACTERIA TRACE Abnormal NONE SEEN [facility] Comment on above: Performed By: #### E TAYLORR, UMICRO #### [facility] [address] [place] [address] Dr. Anna Romero Bacteria identified Cx Nom (U) NOT INDICATED Normal [facility] Comment on above: Performed By: #### E RUR, UMICRO #### [facility] [address] [place] [address] Dr. Anna Romero CAST NONE SEEN Normal NONE SEEN [facility] Comment on above: Performed By: #### Yared BARBOSA UMICRO #### [facility] [address] [place] [address] Dr. Anna Romero Crystals LM Nom (Urine sed) NONE SEEN Normal NONE SEEN [facility] Comment on above: Performed By: #### Yared BARBOSA UMICRO #### [facility] [address] [place] [address] Dr. Anna Romero Epithelial cells LM Ql (Urine sed) RARE Normal NONE SEEN /RARE [facility] Comment on above: Performed By: #### Yared BARBOSA UMICRO #### [facility] [address] [place] [address] Dr. Anna Romero MUCOUS TRACE Abnormal NONE SEEN [facility] Comment on above: Performed By: #### Yared BARBOSA UMICRO #### [facility] [address] [place] [address] Dr. Anna Romero RBC 2-5 Abnormal 0-2 [facility] Comment on above: Performed By: #### Yared BARBOSA UMICRO #### [facility] [address] [place] [address] Dr. Anna Romero WBC 0-2 Abnormal NONE SEEN [facility] Comment on above: Performed By: #### Yared BARBOSA UMICRO #### [facility] [address] [place] [address] Dr. Anna Romero US PREG TVon 01-21-2023 [...] LUDWIG JEAN BAPTISTE Date: 2023-01-21 16:54 Normal [facility] ER URINE PROFILEon 3 Bilirubin Ql (U) Negative Normal NEGATIVE [facility] Comment on above: Performed By: #### E RUR #### [facility] [address] [place] [address] Dr. Anna Romero Clarity (U) CLEAR Normal CLEAR [facility] Comment on above: Performed By: #### E RUR #### [facility] [address] [place] [address] Dr. Anna Romero Color (U) YELLOW Normal YELLOW [facility] Comment on above: Performed By: #### E RUR #### [facility] [address] [place] [address] Dr. Anna BAER A micrscopic examination will be performed if indicated. Normal [facility] Comment on above: Performed By: #### E RUR #### [facility] [address] [place] [address] Dr. Anna Romero Glucose Ql (U) Negative Normal NEGATIVE [facility] Comment on above: Performed By: #### E RUR #### [facility] [address] [place] [address] Dr. Anna Romero Hemoglobin Ql (U) Negative Normal NEGATIVE [facility] Comment on above: Performed By: #### E RUR #### [facility] [address] [place] [address] Dr. Anna Romero Ketones Ql (U) Negative Normal NEGATIVE [facility] Comment on above: Performed By: #### E RUR #### [facility] [address] [place] [address] Dr. Anna Romero LEUKOCYTES Negative Normal NEGATIVE [facility] Comment on above: Performed By: #### E RUR #### [facility] [address] [place] [address] Dr. Anna Romero Nitrite Ql (U) Negative Normal NEGATIVE [facility] Comment on above: Performed By: #### E RUR #### [facility] [address] [place] [address] Dr. Anna Romero pH (U) 6.5 [pH] Normal 5-9 [facility] Comment on above: Performed By: #### E RUR #### [facility] [address] [place] [address] Dr. Anna Romero SPEC GRAVITY 1.025 Normal 1.005-<=1.025 [facility] Comment on above: Performed By: #### E RUR #### [facility] [address] [place] [address] Dr. Anna Romero UA PROTEIN TRACE Normal NEGATIVE/ TRACE [facility] Comment on above: Performed By: #### E RUR #### [facility] [address] [place] [address] Dr. Anna Romero UR MICRO IND NOT INDICATED Normal [facility] Comment on above: Performed By: #### E RUR #### [facility] [address] [place] [address] Dr. Anna Romero Urobilinogen Qn (U) 0.2 {Joel'U}/dL Normal 0.2 - 1. 0 [facility] Comment on above: Performed By: #### E RUR #### [facility] [address] [place] [address] Dr. Anna Romero GROUP A STREP CULTUREon 12-13 S. pyogenes Ag Ql (Unsp spec) Culture Observations: NEGATIVE FOR GROUP A STREPTOCOCCUS. Normal [facility] Comment on above: Performed By: #### S SCRN, GRASTCX #### [facility] [address] [place] [address] Dr. Anna Romero STREPT SCREENon 01-08-2023 STREP SCREEN A Negative Normal NEGATIVE [facility] Comment on above: Performed By: #### S SCRN, GRASTCX #### [facility] [address] [place] [address] Dr. Anna Romero SYMPTOMATIC COVID-19 ANTIGEN on 01-08-2023 EUA Statement SEE BELOW Normal [facility] Comment on above: Result Comment: This test [...] Performed By: #### S SCRN, GRASTCX #### [facility] [address] [place] [address] Dr. Anna Romero SARS-CoV-2 (COVID-19) RNA DAVY+probe Ql (Unsp spec) Positive Abnormal NEGATIVE [facility] Comment on above: Performed By: #### S SCRN, GRASTCX #### [facility] [address] [place] [address] Dr. Anna Romero US PREG TVon 05-31-2022 [...] GENI CABRAL Date: 2022-05-31 19:46 Normal [facility] BILIRUBIN TOTALon 03-16-2022 Bilirubin [Mass/Vol] 0.3 mg/dL Normal 0.2-1.0 [facility] Comment on above: Performed By: #### T DALE #### [facility] [address] [place] [address] Dr. Anna Romero CBC AUTO DIFFon 03-16-2022 BASO # 0.0 103/ul Normal 0.0-0.1 [facility] Comment on above: Performed By: #### C BC #### [facility] [address] [place] [address] Dr. Anna Romero Basophils/100 WBC (Bld) 0.4 % Normal 0.2-2.0 [facility] Comment on above: Performed By: #### C BC #### [facility] [address] [place] [address] Dr. Anna Romero EO # 0.0 103/ul Normal 0.0-0.7 [facility] Comment on above: Performed By: #### C BC #### [facility] [address] [place] [address] Dr. Anna Romero Eosinophils/100 WBC (Bld) 0.2 % Critically low 0.9-7.0 [facility] Comment on above: Performed By: #### C BC #### [facility] [address] [place] [address] Dr. Anna Romero Erythrocyte distribution width (RBC) [Ratio] 12.8 % Normal 11.0-15.0 [facility] Comment on above: Performed By: #### C BC #### [facility] [address] [place] [address] Dr. Anna Romero Hematocrit (Bld) [Volume fraction] 39.2 % Normal 36.0-48.0 [facility] Comment on above: Performed By: #### C BC #### [facility] [address] [place] [address] Dr. Anna Romero Hemoglobin (Bld) [Mass/Vol] 12.9 g/dL Normal 12.0-16.0 [facility] Comment on above: Performed By: #### C BC #### [facility] [address] [place] [address] Dr. Anna Romero IG # 0.01 10e3/ul Normal 0.00-0.03 [facility] Comment on above: Performed By: #### C BC #### [facility] [address] [place] [address] Dr. Anna Romero IG % 0.2 % Normal 0.0-0.5 [facility] Comment on above: Performed By: #### C BC #### [facility] [address] [place] [address] Dr. Anna Romero LYMPH # 1.6 103/ul Normal 1.2-3.8 [facility] Comment on above: Performed By: #### C BC #### [facility] [address] [place] [address] Dr. Anna Romero Lymphocytes/100 WBC (Bld) 29.8 % Normal 20.5-60.0 [facility] Comment on above: Performed By: #### C BC #### [facility] [address] [place] [address] Dr. Anna Romero MANUAL DIFF REQ NO Normal [facility] Comment on above: Performed By: #### C BC #### [facility] [address] [place] [address] Dr. Anna Romero MCH (RBC) [Entitic mass] 31.8 pg Normal 26.7-34.0 [facility] Comment on above: Performed By: #### C BC #### [facility] [address] [place] [address] Dr. Anna Romero MCHC (RBC) [Mass/Vol] 32.9 g/dL Normal 29.9-35.2 [facility] Comment on above: Performed By: #### C BC #### [facility] [address] [place] [address] Dr. Anna Romero MCV (RBC) [Entitic vol] 96.6 fL Normal 81.0-99.0 [facility] Comment on above: Performed By: #### C BC #### [facility] [address] [place] [address] Dr. Anna Romero MONO # 0.4 103/ul Normal 0.3-0.8 [facility] Comment on above: Performed By: #### C BC #### [facility] [address] [place] [address] Dr. Anna Romero Monocytes/100 WBC (Bld) 7.2 % Normal 1.7-12.0 [facility] Comment on above: Performed By: #### C BC #### [facility] [address] [place] [address] Dr. Anna Romero NEUT # 3.3 103/ul Normal 1.4-6.5 [facility] Comment on above: Performed By: #### C BC #### [facility] [address] [place] [address] Dr. Anna Romero Neutrophils/100 WBC (Bld) 62.2 % Normal 43.0-75.0 [facility] Comment on above: Performed By: #### C BC #### [facility] [address] [place] [address] Dr. Anna Romero Platelet mean volume (Bld) [Entitic vol] 10.0 fL Normal 9.5-13.5 [facility] Comment on above: Performed By: #### C BC #### [facility] [address] [place] [address] Dr. Anna Romero PLT 153 103/ul Normal 150-450 [facility] Comment on above: Performed By: #### C BC #### [facility] [address] [place] [address] Dr. Anna Romero RBC 4.06 106/ul Critically low 4.20-5.40 [facility] Comment on above: Performed By: #### C BC #### [facility] [address] [place] [address] Dr. Anna Romero WBC 5.3 103/ul Normal 4.0-11.0 [facility] Comment on above: Performed By: #### C BC #### [facility] [address] [place] [address] Dr. Anna Romero FREE T3on 03-16-2022 FREE T3 3.18 pg/mlL Normal 2.18-3.98 [facility] Comment on above: Performed By: #### S SCRN GRASTCX #### [facility] [address] [place] [address] Dr. Anna Romero FREE T4on 03-16-2022 Free T4 [Mass/Vol] 1.08 ng/dL Normal 0.76-1.46 [facility] Comment on above: Performed By: #### F T4 #### [facility] [address] [place] [address] Dr. Anna Romero PROF 14(COMP METB)on 022 Albumin [Mass/Vol] 4.3 g/dL Normal 3.4-5.0 [facility] Comment on above: Performed By: #### S SCRN GRASTCX #### [facility] [address] [place] [address] Dr. Anna Romero Albumin/Globulin [Mass ratio] 1.2 {ratio} Normal [facility] Comment on above: Performed By: #### S SCRN GRASTCX #### [facility] [address] [place] [address] Dr. Anna Romero ALP [Catalytic activity/Vol] 60 U/L Normal 46-116 [facility] Comment on above: Performed By: #### S SCRN, GRASTCX #### [facility] [address] [address] [address] Anna Romero ALT [Catalytic activity/Vol] 25 U/L Normal 14-59 [facility] Comment on above: Performed By: #### S SCRN, GRASTCX #### [facility] [address] [address] [address] Anna Romero Anion gap [Moles/Vol] 13.8 mmol/L Normal [facility] Comment on above: Performed By: #### S SCRN, GRASTCX #### [facility] [address] [place] [address] Dr. Anna Romero AST [Catalytic activity/Vol] 21 U/L Normal 15-37 [facility] Comment on above: Performed By: #### S SCRN, GRASTCX #### [facility] [address] [place] [address] Dr. Anna Romero Calcium [Mass/Vol] 9.4 mg/dL Normal 8.5-10.1 [facility] Comment on above: Performed By: #### S SCRN, GRASTCX #### [facility] [address] [place] [address] Dr. Anna Romero Chloride [Moles/Vol] 101 mmol/L Normal 98-107 [facility] Comment on above: Performed By: #### S SCRN, GRASTCX #### [facility] [address] [place] [address] Dr. Anna Romero CO2 [Moles/Vol] 26.8 mmol/L Normal 21.0-32.0 [facility] Comment on above: Performed By: #### S SCRN, GRASTCX #### [facility] [address] [place] [address] Dr. Anna Romero Creatinine [Mass/Vol] 0.87 mg/dL Normal 0.55-1.02 [facility] Comment on above: Performed By: #### S SCRN, GRASTCX #### [facility] [address] [place] [address] Dr. Anna Romero EGFR-AF ENGLISH >60 Normal >=60 [facility] Comment on above: Performed By: #### S SCRN, GRASTCX #### [facility] [address] [address] [address] Anna Romero EGFR-NON AF ENGLISH >60 Normal >=60 [facility] Comment on above: Performed By: #### S SCRN, GRASTCX #### [facility] [address] [address] [address] Anna Romero Globulin (S) [Mass/Vol] 3.5 g/dL Normal [facility] Comment on above: Performed By: #### S SCRN, GRASTCX #### [facility] [address] [place] [address] Dr. Anna Romero Glucose [Mass/Vol] 80 mg/dL Normal 74-106 [facility] Comment on above: Performed By: #### S SCRN, GRASTCX #### [facility] [address] [place] [address] Dr. Anna Romero Potassium [Moles/Vol] 3.6 mmol/L Normal 3.5-5.1 [facility] Comment on above: Performed By: #### S SCRN, GRASTCX #### [facility] [address] [address] [address] Anna Romero Protein [Mass/Vol] 7.8 g/dL Normal 6.4-8.2 [facility] Comment on above: Performed By: #### S SCRN, GRASTCX #### [facility] [address] [address] [address] Anna Romero Sodium [Moles/Vol] 138 mmol/L Normal 136-145 [facility] Comment on above: Performed By: #### S SCRN, GRASTCX #### [facility] [address] [address] [address] Anna Romero Urea nitrogen [Mass/Vol] 12.0 mg/dL Normal 7.0-18.0 [facility] Comment on above: Performed By: #### S SCRN, GRASTCX #### [facility] [address] [address] [address] Anna Romero Urea nitrogen/Creatinine [Mass ratio] 13.8 mg/mg Normal [facility] Comment on above: Performed By: #### S SCRN, GRASTCX #### [facility] [address] [place] [address] Dr. Anna Romero TSHon 03-16-2022 TSH 2.442 uIU/mL Normal 0.358-3.740 [facility] Comment on above: Performed By: #### S SCRN, GRASTCX #### [facility] [address] [place] [address] Dr. Anna Romero TSH RANGE SEE BELOW Normal [facility] Comment on above: Result Comment: <0.3 4 UIU/ml HYPERTHYROID 0.34-5.60 UIU/ml EUTHYROID >5.60 UIU/ml HYPOTHYROID Performed By: #### S SCRN, GRASTCX #### [facility] [address] [place] [address] Dr. Anna Romero Vital Signs Date Time Vital Sign Value Performing Clinician Faci lity 11-27-2023 14:46-0500 Body mass index (BMI) [Ratio] 25.66 kg/m2 Rosana HAYES Work Phone: [facility] 11-27-2023 14:46-0500 Body weight 72.12 kg Rosana HAYES Work Phone: [facility] 11-27-2023 14:46-0500 Diastolic blood pressure 60 mm[Hg] Rosana HAYES Work Phone: [facility] 11-27-2023 14:46-0500 Systolic blood pressure 102 mm[Hg] Rosana HAYES Work Phone: [facility] 10-16-2023 12:21-0500 Body height 170.2 cm Haseeb Nice MD Work Phone: [facility] 10-16-2023 12:21-0500 Body mass index (BMI) [Ratio] 22.55 kg/m2 Haseeb Nice MD Work Phone: [facility] 10-16-2023 12:21-0500 Body weight 65.32 kg Haseeb Nice MD Work Phone: [facility] 10-16-2023 12:21-0500 Diastolic blood pressure 66 mm[Hg] Haseeb Nice MD Work Phone: [facility] 10-16-2023 12:21-0500 Heart rate 79 /min Haseeb Nice MD Work Phone: [facility] 10-16-2023 12:21-0500 Systolic blood pressure 109 mm[Hg] Haseeb Nice MD Work Phone: [facility] Encounters Encounter Date Encounter Type Care Provider [...] of oligohydramnios Start: 11-19-2023 End: 11-20-2023 ambulatory [facility] Start: 10-29-2023 End: 10-30-2023 ambulatory [facility] Start: 10-28-2023 End: 10-28-2023 ambulatory BRIA YOJANA Not Available Start: 10-22-2023 Documentation procedure Haseeb Nice MD Work Phone: [facility] Start: 10-22-2023 Telephone encounter Rachelle TREJO [facility] Start: 10-21-2023 Chart abstracting Aliya berger MD Work Phone: [facility] Start: 10-17-2023 Orders Only Robbi Rodriguez [facility] Comment on above: History of oligohydr amnios in prior , currently (Primary Dx) Start: 10-16-2023 End: 10-17-2023 ambulatory BRIA BALES [facility] Start: 10-16-2023 End: 10-16-2023 Office outpatient new 45 minutes Haseeb Nice MD Work Phone: [facility] Comment on above: High-risk in second trimester (Primary Dx); History of oligohydramnios in prior , currently ; 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; 20 weeks gestation of Start: 10-15-2023 Chart abstracting Scanning Pro vider External [facility] Start: 10-08-2023 End: 10-08-2023 ambulatory BRIA [...] Td Vaccines (9 - Td or Tdap) [facility] Start: 10-17-2024 End: 10-17-2024 US MFM with or without consult US MFM with or without consult Imaging Routine History of oligohydramnios in prior , currently Expected: 10/17/2024 (Approximate), Expires: 10/17/2024 [facility] Work Phone: Comment on above: Expected: 10/17/2024 (Approximate), Expires: 10/17/2024 Start: 10-16-2024 Adult BMI Screening Adult BMI Screen ing [facility] Start: 10-16-2024 Tobacco Screening Tobacco Screening [facility] Start: 12-11-2023 End: 12-11-2023 Patient encounter procedure 12/11/2023 10:20 AM EST Routine [facility] OB [address] [place] [id number] Bria Bales, [address] [place] [address] [facility] Start: 11-27-2023 End: 11-27-2024 CBC panel - Blood by Automated count CBC Lab Routine Diabetes mellitus screening Expected: 11/27/2023 (Approximate), Expires: 11/27/2024 [facility] Work Phone: Comment on above: Expected: 11/27/2023 (Approximate), Expires: 11/27/2024 Start: 11-27-2023 End: 11-27-2024 Measurement of glucose 1 hour after glucose challenge for glucose tolerance test Glucose tolerance, 1 hour Lab Routine Diabetes mellitus screening Expected: 11/27/2023 (Approximate), Expires: 11/27/2024 [facility] Comment on above: Expected: 11/27/2023 (Approximate), Expires: 11/27/2024 Start: 11-27-2023 End: 11-27-2024 US biophysical profile w non stress test US biophysical profile w non stress test Imaging Routine History of miscarriage History of oligohydramnios Expected: 11/27/2023 (Approximate), Expires: 11/27/2024 [facility] Comment on above: Expected: 11/27/2023 (Approximate), Expires: 11/27/2024 Start: 11-27-2023 End: 11-27-2024 US for US OB SCAN FOR GROWTH Imaging Routine History of miscarriage History of oligohydramnios Expected: 11/27/2023 (Approximate), Expires: 11/27/2024 [facility] Comment on above: Expected: 11/27/2023 (Approximate), Expires: 11/27/2024 Start: 11-19-2023 End: 11-19-2023 Patient encounter procedure 11/19/2023 9:15 AM EST Appointment [facility] - Ultrasound [address] [place] [address] [facility] Start: 10-29-2023 End: 10-29-2023 Patient encounter procedure 10/29/2023 9:15 AM EST Appointment [facility]ound [address] [place] [address] [facility] Start: 10-16-2023 End: 10-16-2023 Patient encounter procedure 10/16/2023 1:00 PM EST Office Visit [facility] [address] [place] [address] Haseeb Nice MD [address] [address] [facility] Start: 10-16-2023 Subsequent hospital visit by physician 10/16/2023 11:30 AM EST Hospital Encounter [facility] [address] [place] [address] [facility] Start: 06-14-2023 Influenza vaccination Influenza Vacc ine [facility] Start: 2014 Screening for malignant neoplasm of cervix Pap Smear [facility] Start: 2012 DTaP,Tdap and Td Vaccines (1 - Tdap) DTaP,Tdap and Td Vaccines (1 - Tdap) [facility] Start: 2011 Adult BMI Screening Adult BMI Screen ing [facility] Start: 2005 Depression Screening Depression Scre ening [facility] Start: 2005 Tobacco Screening Tobacco Screening [facility] Start: 1993 Tobacco Counseling Tobacco Counselin g [facility] Payers Date Payer Category Payer Medicaid [id number] 1993 Unknown [id number] 2.16.84 0.1.426498.3.579.2.593 1993 Unknown [id number] 2.16.84 0.1.222290.3.579.2.593 1993 Unknown [id number] 2.16.84 0.1.489335.3.579.2.593 1993 Unknown [id number] 2.16.84 0.1.363823.3.579.2.593 1993 Unknown [id number] 2.16.84 0.1.141134.3.579.2.593 1993 Unknown [id number] 2.16.84 0.1.862040.3.579.2.593 1993 Unknown [id number] 2.16.84 0.1.184435.3.579.2.593 1993 Unknown [id number] 2.16.84 0.1.679059.3.579.2.593 1993 Unknown [id number] 2.16.84 0.1.232273.3.579.2.593 1993 Unknown [id number] 2.16.84 0.1.162388.3.579.2.593 1993 Unknown [id number] 2.16.84 0.1.735186.3.579.2.593 1993 Unknown [id number] 2.16.84 0.1.638291.3.579.2.593 1993 Unknown [id number] 2.16.84 0.1.643414.3.579.2.1286 1993 Unknown [id number] 2.16.84 0.1.549962.3.579.2.1286 1993 Unknown [id number] 2.16.8 40.1.958429.3.579.2.1286 1993 Unknown [id number] 2.16.84 0.1.012251.3.579.2.1286 1993 Unknown [id number] 2.16.84 0.1.608458.3.579.2.1259 1993 Unknown [id number] 2.16.84 0.1.667396.3.579.2.1259 1993 Unknown [id number] 2.16.84 0.1.749317.3.579.2.1259 1993 Unknown [id number] 2.16.840 .1.304412.3.579.2.1259 1993 Unknown [id number] 2.16.840 .1.920371.3.579.2.1259 1959 Self-pay [id number] 1959 Unknown [id number] 1959 Unknown [id number] Social History Date Type Detail Facility Start: 10-15-2023 Tobacco smoking status SDIS Tobacco smoking consumption unknown [facility] Start: 03-23-2019 End: 10-16-2023 History of Social function [facility] Start: 03-23-2019 End: 10-16-2023 Housing Instability [facility] Housing Instability Unknown [facility] Start: 06-10-2023 [facility] Start: 1995 Sex Assigned At Not on file [facility] Start: 10-16-2023 Tobacco smoking status NHIS Smokes tobacco daily [facility] History of tobacco use Cigarette Smoker P Yan[facility] Start: 10-16-2023 Tobacco use and exposure Smokeless tobacco non-user [facility] Start: 10-16-2023 End: 10-21-2023 Alcohol intake Ex-drinker (finding) [facility] Start: 1995 Sex Assigned At Female [facility] Start: 08-07-2023 Gender identity Identifies as female gender (finding) [facility] Start: 08-07-2023 Sexual orientation Heterosexual (finding) [facility] Goals Date Patient Goal Desired [...] of: ABIGAIL Chinchilla documented in this encounter [facility] 10-22-2023 Miscellaneous Notes Formattin g of this note might be different from the original. Please call us back to schedule an ultrasound next week. documented in this encounter [email or web address] 10-22-2023 Telephone encount er Note Please call us back to schedule an ultrasound next week. [facility] 10-22-2023 History of Presen t illness Narrative [...] increase p.o. hydration. documented in this encounter [facility] 10-16-2023 History of Presen t illness Narrative Headache/epigastric pain/blurry vision/swelling? No Cramping/contractions? No Abnormal vaginal discharge? No Spotting/vaginal bleeding? No Loss of fluid like your water may have broken? No Cats in the home? No Do you change the litter box? N/A Flu vaccine? No Genetic testing done this here or other office? Yes Have you been seen here at [facility] in a previous ? No Recent ER visits or hospitalizations? No Bring blood sugar log or meter with you today? (Please bring them with you for every visit at [facility]) N/A Traveled outside the country in the past 6 month No Any concerns that you would like me to mention to the provider today? No [facility] Maternal- Medicine Consult Note Reason For Consult: [...] Yes Not In System Ref Prov vit no.207-ganc-ioctv acid ( VITAMIN) 27 mg iron- 800 [...] continue with routine care in your office [facility], the CDC, and other organizations representing maternal and public health professionals recommend that , , and lactating people and those considering receive the COVID-19 vaccination. Vaccination is the best method to reduce maternal and complications of SARS-CoV-2 infection. This document was created with [employer] technology. Though I make every effort to review the dictation as it is transcribed, on occasion the spoken word can be misinterpreted by the technology leading to inappropriate words, phrases, or sentences. This note is addressed to the requesting provider as a consultation for clinical guidance. Specific medical abbreviations are occasionally used and those are generally approved by the [place]?Board of?Obstetrics and?Gynecology?as well as?[place] s abbreviations. The above plan of care was based solely on the diagnoses for which a consultation was requested. ?More frequent testing may be indicated based on her other medical/obstetrical conditions. The management of other or medical conditions is beyond the scope of requested consultation and will continue to be followed by the primary bone tender or primary care provider. Thank you for allowing me to participate in her care. Please contact me if you have any concerns. documented in this encounter [email or web address] 03-16-2022 Note PROCEDURE: XR SHOULD ER RT 2V or > HISTORY: Impingement syndrome of right shoulder region ; acute right shoulder pain, no known injury COMPARISON: None. FINDINGS: BONES:No fracture, acute abnormality, or significant arthropathy. SOFT TISSUES:No visible soft tissue swelling. EFFUSION:None visible. OTHER: Negative. IMPRESSION: 1. Normal examination. Electronically authenticated by: GENI CABRAL Date: 2022-03-16 18:16 [facility] Evaluation note Diagnosis High-risk in second trimester- Primary History of oligohydramnios in prior , currently with other poor obstetric history 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 20 weeks gestation of [facility] Diagnosis History of oligohydramnios in prior , currently - Primary with other poor obstetric history [facility] Diagnosis Second trimester state, incidental with normal glucose tolerance test (GTT) Diabetes mellitus screening Screening for diabetes mellitus History of miscarriage Personal history of other genital system and obstetric disorders History of oligohydramnios documented in this encounter [facility]ructionsNot on filedocumented in [facility] System[facility]ructionsNot on filedocumented in this [facility]ProGen[facility] SystemInstructionsNot on filedocumented in this encounterProGenesis Hospital SystemInstructionsNot on filedocumented in [facility] Summary Purpose Family History No Family [...] without consult Haseeb Nice MD [address] [facility], [address] [place] [address] [facility] [address] [place] [address] Referral ID Status Reason Start Date Expiration Date V isits Requested Visits Authorized [id number] Pending Review 10/17/2023 10/16/2024 1 1 Additional Source Comments INFORMATION SOURCE (unrecogn ized section and content) DATE CREATED AUTHOR 01/31/2023 [facility] DATE CREATED AUTHOR AUTHOR'S ORGANIZ ATION 10/20/2023 [facility] DATE CREATED AUTHOR AUTHOR'S ORGANIZ ATION 11/24/2023 [facility] DATE CREATED AUTHOR AUTHOR'S ORGANIZ ATION 12/17/2023 [facility] EPIC Reason for Visit [...] BE BASED ON THE PRIMARY CLINICAL RECORDS. [facility] [employer] [facility]. provides no warranty or guarantee of the accuracy or completeness of information in this document.
--- NOTE | 2023-12-30 14:04 | US_ITS ---
[address] [address] Patient Name: JERAMY SWEENEY MRN: [id number] date: 1995 Sex: F Assigned Patient Location: [facility] Current Patient Location: [facility] Accession/Order Number: [id number] Exam Date: 12/30/2023 14:07 Report Date: 12/30/2023 14:40 At the request of: BRIA DIAL Procedure: US OB BPP w non-stress EXAMINATION: US OB BPP w non-stress HISTORY: HISTORY OF MISCARRIAGE Z57.59 COMPARISON: No relevant comparison available. TECHNIQUE: Ultrasound biophysical profile was performed in the radiology department. FINDINGS: BREATHING MOVEMENTS: 2.0 GROSS BODY MOVEMENTS: 2.0 TONE: 2.0 QUALITATIVE AMNIOTIC FLUID VOLUME: 2.0 PRESENTATION: CEPHALIC HEART RATE: 122.7 bpm H.B./min AMNIOTIC FLUID VOLUME: 19.7 cm cm GESTATIONAL AGE: 31 weeks 0 days CONCLUSION: Total biophysical profile score: 8.0 Electronically authenticated by: ALFA TEJEDA Date: 12/30/2023 14:40
[2023-12-30 14:30] VITALS: BP 105/61; PULSE 91
== END 2023-12-30 15:09 | disposition home or self-care (01) ==
LOC: US 07:19 → FBC 14:00
PROVIDERS: Visit Provider Obstetrics & Gynecology
DX: Z87.59 Personal history of other complications of pregnancy, childbirth and the puerperium (principal); Z3A.31 31 weeks gestation of pregnancy
CPT/HCPCS: 76818

== ENCOUNTER 2024-01-06 07:30 | Outpatient (OUT) | payer OTHER, SELFPAY ==
--- OUTSIDE RECORDS SUMMARY | 2024-01-06 07:42 | XMS_ITS | CCD ---
Author Organization [facility] Care Team Providers Care Jacquard Loom Weaver Name Role Phone RUSSELL, DR DEBBIE Mohan [...] for nausea or vomiting. 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; Translations: [OTH CHECKER/STOCKER CURRENT DRUG THERAPY] Onset: 01-23-2023 Episodic Other [...] UA Negative Negative - 4(70) +++ mg/dL [facility] Blood, UA Negative Negative - 50 Felice/mcL [facility] Clarity, UA Clear [facility] Healthvt re Color, UA Yellow [facility] Healthcar e Glucose, UA Negative Negative - 1999(110) ++++ mg/dL [facility] Interpretation and review of laboratory results Normal [facility] Ketones, UA Negative Negative - 160(16) ++++ mg/dL [facility] Leukocytes, UA Negative Negative - 500+++ Regina/mcL [facility] Nitrite, UA Negative Negative - Positive [facility] pH, UA 5.5 5 - 9 [facility] Healthcar e Protein, UA Negative Negative - 1999(20) ++++ mg/dL [facility] Spec Grav, UA 1.030 1 - 1.03 [facility] Urobilinogen, UA 0.2 0.2 - 12 mg/dL [facility] Healthcar e PREG QUANT HCGon 01-28-2023 HCG QUANT 17 mIU/mL Normal [facility] Comment on above: Performed By: #### P REGQNT #### [facility] [address] [address] [address] Anna Romero HCG RANGE SEE BELOW Normal [facility] Comment on above: Result Comment: 5-50 0.2-1 WEEK 50-500 1-2 WEEKS 100-5,000 2-3 WEEKS 500-10,000 3-4 WEEKS 1,000-50,000 4-5 WEEKS 10,000-100,000 5-6 WEEKS 15,000-200,000 6-8 WEEKS 10,000-100,000 2-3 MONTHS Performed By: #### P REGQNT #### [facility] [address] [place] [address] Dr. Anna Romero PREG QUANT HCGon 01-23-2023 HCG QUANT 441 mIU/mL Normal [facility] Comment on above: Performed By: #### S SCRN, GRASTCX #### [facility] [address] [place] [address] Dr. Anna Romero HCG RANGE SEE BELOW Normal [facility] Comment on above: Result Comment: 5-50 0.2-1 WEEK 50-500 1-2 WEEKS 100-5,000 2-3 WEEKS 500-10,000 3-4 WEEKS 1,000-50,000 4-5 WEEKS 10,000-100,000 5-6 WEEKS 15,000-200,000 6-8 WEEKS 10,000-100,000 2-3 MONTHS Performed By: #### S SCRN, GRASTCX #### [facility] [address] [place] [address] Dr. Anna Romero ABO AND RH TYPEon 01-21-2023 ABO and Rh group Nom (Bld) ABO Rh Typing A Rh Positive Normal [facility] Comment on above: Performed By: #### S SCRN, GRASTCX #### [facility] [address] [place] [address] Dr. Anna Romero ER URINE PROFILEon 3 Bilirubin Ql (U) Negative Normal NEGATIVE [facility] Comment on above: Performed By: #### JD URIASRO #### [facility] [address] [place] [address] Dr. Anna Romero Clarity (U) CLEAR Normal CLEAR [facility] Comment on above: Performed By: #### Yared BARBOSA UMICRO #### [facility] [address] [place] [address] Dr. Anna Romero Color (U) YELLOW Normal YELLOW [facility] Comment on above: Performed By: #### FANG URIASICRO #### [facility] [address] [place] [address] Dr. Anna BAER A micrscopic examination will be performed if indicated. Normal [facility] Comment on above: Performed By: #### FANG URIASICRO #### [facility] [address] [place] [address] Dr. Anna Romero Glucose Ql (U) Negative Normal NEGATIVE [facility] Comment on above: Performed By: #### Yared BARBOSA UMICRO #### [facility] [address] [place] [address] Dr. Anna Romero Hemoglobin Ql (U) LARGE Abnormal NEGATIVE [facility] Comment on above: Performed By: #### Yared BARBOSA UMICRO #### [facility] [address] [place] [address] Dr. Anna Romero Ketones Ql (U) Negative Normal NEGATIVE [facility] Comment on above: Performed By: #### Yared BARBOSA UMICRO #### [facility] [address] [place] [address] Dr. Anna Romero LEUKOCYTES Negative Normal NEGATIVE [facility] Comment on above: Performed By: #### JD URIASRO #### [facility] [address] [place] [address] Dr. Anna Romero Nitrite Ql (U) Negative Normal NEGATIVE [facility] Comment on above: Performed By: #### FANG URIASICRO #### [facility] [address] [place] [address] Dr. Anna Romero pH (U) 5.5 [pH] Normal 5-9 [facility] Comment on above: Performed By: #### FANG URIASICRO #### [facility] [address] [place] [address] Dr. Anna Romero SPEC GRAVITY >=1.030 Abnormal 1.005-<=1.025 [facility] Comment on above: Performed By: #### JD URIASRO #### [facility] [address] [place] [address] Dr. Anna Romero UA PROTEIN TRACE Normal NEGATIVE/ TRACE [facility] Comment on above: Performed By: #### JD URIASRO #### [facility] [address] [place] [address] Dr. Anna Romero UR MICRO IND INDICATED Normal [facility] Comment on above: Performed By: #### JD URIASRO #### [facility] [address] [place] [address] Dr. Anna Romero Urobilinogen Qn (U) 0.2 {Joel'U}/dL Normal 0.2 - 1. 0 [facility] Comment on above: Performed By: #### JD URIASRO #### [facility] [address] [place] [address] Dr. Anna Romero PREG QUANT HCGon 01-21-2023 HCG QUANT 1693 mIU/mL Normal [facility] Comment on above: Performed By: #### S DAT AGUIRRETCX #### [facility] [address] [place] [address] Dr. Anna Romero HCG RANGE SEE BELOW Normal [facility] Comment on above: Result Comment: 5-50 0.2-1 WEEK 50-500 1-2 WEEKS 100-5,000 2-3 WEEKS 500-10,000 3-4 WEEKS 1,000-50,000 4-5 WEEKS 10,000-100,000 5-6 WEEKS 15,000-200,000 6-8 WEEKS 10,000-100,000 2-3 MONTHS Performed By: #### S CARLA GRASTCX #### [facility] [address] [place] [address] Dr. Anna Romero URINE MICROSCOPIC ONLYon BACTERIA TRACE Abnormal NONE SEEN [facility] Comment on above: Performed By: #### JD URIASRO #### [facility] [address] [place] [address] Dr. Anna Romero Bacteria identified Cx Nom (U) NOT INDICATED Normal [facility] Comment on above: Performed By: #### JD URIASRO #### [facility] [address] [place] [address] Dr. Anna Romero CAST NONE SEEN Normal NONE SEEN [facility] Comment on above: Performed By: #### Yared BARBOSA UMICRO #### [facility] [address] [place] [address] Dr. Anna Romero Crystals LM Nom (Urine sed) NONE SEEN Normal NONE SEEN [facility] Comment on above: Performed By: #### Yared BARBOSA UMICRO #### [facility] [address] [place] [address] Dr. Anna Romero Epithelial cells LM Ql (Urine sed) RARE Normal NONE SEEN /RARE [facility] Comment on above: Performed By: #### Yared BARBOSA UMICRO #### [facility] [address] [place] [address] Dr. Anna Romero MUCOUS TRACE Abnormal NONE SEEN [facility] Comment on above: Performed By: #### Yared BARBOSA UMICRO #### [facility] [address] [place] [address] Dr. Anna Romero RBC 2-5 Abnormal 0-2 [facility] Comment on above: Performed By: #### Yared BARBOSA UMICRO #### [facility] [address] [place] [address] Dr. Anna Romero WBC 0-2 Abnormal NONE SEEN [facility] Comment on above: Performed By: #### Yared BARBOSA UMICRO #### [facility] [address] [place] [address] Dr. Anna Romero US PREG TVon 01-21-2023 [...] JEAN BAPTISTE Date: 2023-01-21 16:54 Normal [facility] ER URINE PROFILEon 3 Bilirubin Ql (U) Negative Normal NEGATIVE [facility] Comment on above: Performed By: #### E RUR #### [facility] [address] [place] [address] Dr. Anna Romero Clarity (U) CLEAR Normal CLEAR [facility] Comment on above: Performed By: #### E RUR #### [facility] [address] [place] [address] Dr. Anna Romero Color (U) YELLOW Normal YELLOW [facility] Comment on above: Performed By: #### E RUR #### [facility] [address] [place] [address] Dr. Anna Romero ERUAHD A micrscopic examination will be performed if indicated. Normal [facility] Comment on above: Performed By: #### E RUR #### [facility] [address] [place] [address] Dr. Anna Romero Glucose Ql (U) Negative Normal NEGATIVE [facility] Comment on above: Performed By: #### E RUR #### [facility] [address] [place] [address] Dr. Anna Romero Hemoglobin Ql (U) Negative Normal NEGATIVE [facility] Comment on above: Performed By: #### E RUR #### [facility] [address] [place] [address] Dr. Anna Romero Ketones Ql (U) Negative Normal NEGATIVE [facility] Comment on above: Performed By: #### E RUR #### [facility] [address] [place] [address] Dr. Anna Romero LEUKOCYTES Negative Normal NEGATIVE [facility] Comment on above: Performed By: #### E RUR #### [facility] [address] [place] [address] Dr. Anna Romero Nitrite Ql (U) Negative Normal NEGATIVE [facility] Comment on above: Performed By: #### E RUR #### [facility] [address] [place] [address] Dr. Anna Romero pH (U) 6.5 [pH] Normal 5-9 [facility] Comment on above: Performed By: #### E RUR #### [facility] [address] [place] [address] Dr. Anna Romero SPEC GRAVITY 1.025 Normal 1.005-<=1.025 [facility] Comment on above: Performed By: #### E RUR #### [facility] [address] [place] [address] Dr. Anna Romero UA PROTEIN TRACE Normal NEGATIVE/ TRACE [facility] Comment on above: Performed By: #### E RUR #### [facility] [address] [place] [address] Dr. Anna Romero UR MICRO IND NOT INDICATED Normal [facility] Comment on above: Performed By: #### E RUR #### [facility] [address] [place] [address] Dr. Anna Romero Urobilinogen Qn (U) 0.2 {Joel'U}/dL Normal 0.2 - 1. 0 [facility] Comment on above: Performed By: #### E RUR #### [facility] [address] [place] [address] Dr. Anna Romero GROUP A STREP CULTUREon 12-13 S. pyogenes Ag Ql (Unsp spec) Culture Observations: NEGATIVE FOR GROUP A STREPTOCOCCUS. Normal [facility] Comment on above: Performed By: #### S CARLA GRASTCX #### [facility] [address] [place] [address] Dr. Anna Romero STREPT SCREENon 01-08-2023 STREP SCREEN A Negative Normal NEGATIVE [facility] Comment on above: Performed By: #### S CARLA, GRASTCX #### [facility] [address] [place] [address] Dr. Anna Romero SYMPTOMATIC COVID-19 ANTIGEN on 01-08-2023 EUA Statement SEE BELOW Normal [facility] Comment on above: Result Comment: This [...] Performed By: #### S CARLA GRASTCX #### [facility] [address] [place] [address] Dr. Anna Romero SARS-CoV-2 (COVID-19) RNA DAVY+probe Ql (Unsp spec) Positive Abnormal NEGATIVE [facility] Comment on above: Performed By: #### S CARLA GRASTCX #### [facility] [address] [place] [address] Dr. Anna Romero US PREG TVon 05-31-2022 [...] GENI CABRAL Date: 2022-05-31 19:46 Normal [facility] BILIRUBIN TOTALon 03-16-2022 Bilirubin [Mass/Vol] 0.3 mg/dL Normal 0.2-1.0 [facility] Comment on above: Performed By: #### T DALE #### [facility] [address] [place] [address] Dr. Anna Romero CBC AUTO DIFFon 03-16-2022 BASO # 0.0 103/ul Normal 0.0-0.1 [facility] Comment on above: Performed By: #### C BC #### [facility] [address] [place] [address] Dr. Anna Romero Basophils/100 WBC (Bld) 0.4 % Normal 0.2-2.0 [facility] Comment on above: Performed By: #### C BC #### [facility] [address] [place] [address] Dr. Anna Romero EO # 0.0 103/ul Normal 0.0-0.7 [facility] Comment on above: Performed By: #### C BC #### [facility] [address] [place] [address] Dr. Anna Romero Eosinophils/100 WBC (Bld) 0.2 % Critically low 0.9-7.0 [facility] Comment on above: Performed By: #### C BC #### [facility] [address] [place] [address] Dr. Anna Romero Erythrocyte distribution width (RBC) [Ratio] 12.8 % Normal 11.0-15.0 [facility] Comment on above: Performed By: #### C BC #### [facility] [address] [place] [address] Dr. Anna Romero Hematocrit (Bld) [Volume fraction] 39.2 % Normal 36.0-48.0 [facility] Comment on above: Performed By: #### C BC #### [facility] [address] [place] [address] Dr. Anna Romero Hemoglobin (Bld) [Mass/Vol] 12.9 g/dL Normal 12.0-16.0 [facility] Comment on above: Performed By: #### C BC #### [facility] [address] [place] [address] Dr. Anna Romero IG # 0.01 10e3/ul Normal 0.00-0.03 [facility] Comment on above: Performed By: #### C BC #### [facility] [address] [place] [address] Dr. Anna Romero IG % 0.2 % Normal 0.0-0.5 [facility] Comment on above: Performed By: #### C BC #### [facility] [address] [place] [address] Dr. Anna Romero LYMPH # 1.6 103/ul Normal 1.2-3.8 [facility] Comment on above: Performed By: #### C BC #### [facility] [address] [place] [address] Dr. Anna Romero Lymphocytes/100 WBC (Bld) 29.8 % Normal 20.5-60.0 [facility] Comment on above: Performed By: #### C BC #### [facility] [address] [place] [address] Dr. Anna Romero MANUAL DIFF REQ NO Normal [facility] Comment on above: Performed By: #### C BC #### [facility] [address] [place] [address] Dr. Anna Romero MCH (RBC) [Entitic mass] 31.8 pg Normal 26.7-34.0 [facility] Comment on above: Performed By: #### C BC #### [facility] [address] [address] [address] Anna Romero MCHC (RBC) [Mass/Vol] 32.9 g/dL Normal 29.9-35.2 [facility] Comment on above: Performed By: #### C BC #### [facility] [address] [place] [address] Dr. Anna Romero MCV (RBC) [Entitic vol] 96.6 fL Normal 81.0-99.0 [facility] Comment on above: Performed By: #### C BC #### [facility] [address] [place] [address] Dr. Anna Romero MONO # 0.4 103/ul Normal 0.3-0.8 [facility] Comment on above: Performed By: #### C BC #### [facility] [address] [place] [address] Dr. Anna Romero Monocytes/100 WBC (Bld) 7.2 % Normal 1.7-12.0 [facility] Comment on above: Performed By: #### C BC #### [facility] [address] [place] [address] Dr. Anna Romero NEUT # 3.3 103/ul Normal 1.4-6.5 [facility] Comment on above: Performed By: #### C BC #### [facility] [address] [place] [address] Dr. Anna Romero Neutrophils/100 WBC (Bld) 62.2 % Normal 43.0-75.0 [facility] Comment on above: Performed By: #### C BC #### [facility] [address] [place] [address] Dr. Anna Romero Platelet mean volume (Bld) [Entitic vol] 10.0 fL Normal 9.5-13.5 [facility] Comment on above: Performed By: #### C BC #### [facility] [address] [place] [address] Dr. Anna Romero PLT 153 103/ul Normal 150-450 [facility] Comment on above: Performed By: #### C BC #### [facility] [address] [place] [address] Dr. Anna Romero RBC 4.06 106/ul Critically low 4.20-5.40 [facility] Comment on above: Performed By: #### C BC #### [facility] [address] [place] [address] Dr. Anna Romero WBC 5.3 103/ul Normal 4.0-11.0 [facility] Comment on above: Performed By: #### C BC #### [facility] [address] [place] [address] Dr. Anna Romero FREE T3on 03-16-2022 FREE T3 3.18 pg/mlL Normal 2.18-3.98 [facility] Comment on above: Performed By: #### S CARLA GRASTCX #### [facility] [address] [place] [address] Dr. Anna Romero FREE T4on 03-16-2022 Free T4 [Mass/Vol] 1.08 ng/dL Normal 0.76-1.46 [facility] Comment on above: Performed By: #### F T4 #### [facility] [address] [place] [address] Dr. Anna Romero PROF 14(COMP METB)on 022 Albumin [Mass/Vol] 4.3 g/dL Normal 3.4-5.0 [facility] Comment on above: Performed By: #### S CARLA GRASTCX #### [facility] [address] [place] [address] Dr. Anna Romero Albumin/Globulin [Mass ratio] 1.2 {ratio} Normal [facility] Comment on above: Performed By: #### S CARLA GRASTCX #### [facility] [address] [place] [address] Dr. Anna Romero ALP [Catalytic activity/Vol] 60 U/L Normal 46-116 [facility] Comment on above: Performed By: #### S CARLA GRASTCX #### [facility] [address] [place] [address] Dr. Anna Romero ALT [Catalytic activity/Vol] 25 U/L Normal 14-59 [facility] Comment on above: Performed By: #### S MOISEN GRASTCX #### [facility] [address] [address] [address] Anna Romero Anion gap [Moles/Vol] 13.8 mmol/L Normal [facility] Comment on above: Performed By: #### S SCRN, GRASTCX #### [facility] [address] [address] [address] Anna Romero AST [Catalytic activity/Vol] 21 U/L Normal 15-37 [facility] Comment on above: Performed By: #### S CARLA GRASTCX #### [facility] [address] [place] [address] Dr. Anna Romero Calcium [Mass/Vol] 9.4 mg/dL Normal 8.5-10.1 [facility] Comment on above: Performed By: #### S CARLA, GRASTCX #### [facility] [address] [place] [address] Dr. Anna Romero Chloride [Moles/Vol] 101 mmol/L Normal 98-107 [facility] Comment on above: Performed By: #### S CARLA, GRASTCX #### [facility] [address] [place] [address] Dr. Anna Romero CO2 [Moles/Vol] 26.8 mmol/L Normal 21.0-32.0 [facility] Comment on above: Performed By: #### S SCRN, GRASTCX #### [facility] [address] [place] [address] Dr. Anna Romero Creatinine [Mass/Vol] 0.87 mg/dL Normal 0.55-1.02 [facility] Comment on above: Performed By: #### S SCRN, GRASTCX #### [facility] [address] [place] [address] Dr. Anna Romero EGFR-AF GUAMANIAN >60 Normal >=60 [facility] Comment on above: Performed By: #### S SCRN, GRASTCX #### [facility] [address] [address] [address] Anna Romero EGFR-NON AF GUAMANIAN >60 Normal >=60 [facility] Comment on above: Performed By: #### S SCRN, GRASTCX #### [facility] [address] [address] [address] Anna Romero Globulin (S) [Mass/Vol] 3.5 g/dL Normal [facility] Comment on above: Performed By: #### S SCRN, GRASTCX #### [facility] [address] [place] [address] Dr. Anna Romero Glucose [Mass/Vol] 80 mg/dL Normal 74-106 [facility] Comment on above: Performed By: #### S SCRN, GRASTCX #### [facility] [address] [place] [address] Dr. Anna Romero Potassium [Moles/Vol] 3.6 mmol/L Normal 3.5-5.1 [facility] Comment on above: Performed By: #### S SCRN, GRASTCX #### [facility] [address] [place] [address] Dr. Anna Romero Protein [Mass/Vol] 7.8 g/dL Normal 6.4-8.2 [facility] Comment on above: Performed By: #### S SCRN, GRASTCX #### [facility] [address] [place] [address] Dr. Anna Romero Sodium [Moles/Vol] 138 mmol/L Normal 136-145 [facility] Comment on above: Performed By: #### S SCRN, GRASTCX #### [facility] [address] [place] [address] Dr. Anna Romero Urea nitrogen [Mass/Vol] 12.0 mg/dL Normal 7.0-18.0 [facility] Comment on above: Performed By: #### S SCRN, GRASTCX #### [facility] [address] [place] [address] Dr. Anna Romero Urea nitrogen/Creatinine [Mass ratio] 13.8 mg/mg Normal [facility] Comment on above: Performed By: #### S SCRN, GRASTCX #### [facility] [address] [address] [address] Anna Romero TSHon 03-16-2022 TSH 2.442 uIU/mL Normal 0.358-3.740 [facility] Comment on above: Performed By: #### S SCRN, GRASTCX #### [facility] [address] [place] [address] Dr. Anna Romero TSH RANGE SEE BELOW Normal [facility] Comment on above: Result Comment: <0.3 4 UIU/ml HYPERTHYROID 0.34-5.60 UIU/ml EUTHYROID >5.60 UIU/ml HYPOTHYROID Performed By: #### S SCRN, GRASTCX #### [facility] [address] [place] [address] Dr. Anna Romero Vital Signs Date Time Vital Sign Value Performing Clinician Faci lity 11-27-2023 14:46-0500 Body mass index (BMI) [Ratio] 25.66 kg/m2 Rosana HAYES Work Phone: [facility] 11-27-2023 14:46-0500 Body weight 72.12 kg Rosana HAYES Work Phone: [facility] 11-27-2023 14:46-0500 Diastolic blood pressure 60 mm[Hg] Rosana HAYES Work Phone: [facility] 11-27-2023 14:46-0500 Systolic blood pressure 102 mm[Hg] Rosana HAYES Work Phone: [facility] 10-16-2023 12:21-0500 Body height 170.2 cm Haseeb Nice MD Work Phone: [facility] 10-16-2023 12:21-0500 Body mass index (BMI) [Ratio] 22.55 kg/m2 Haseeb Nice MD Work Phone: [facility] 10-16-2023 12:21-0500 Body weight 65.32 kg Haseeb Nice MD Work Phone: [facility] 10-16-2023 12:21-0500 Diastolic blood pressure 66 mm[Hg] Haseeb Nice MD Work Phone: [facility] 10-16-2023 12:21-0500 Heart rate 79 /min Haseeb Nice MD Work Phone: [facility] 10-16-2023 12:21-0500 Systolic blood pressure 109 mm[Hg] Haseeb Nice MD Work Phone: [facility] Encounters Encounter Date Encounter Type Care Provider Facility Start: 12-31-2023 End: 12-31-2023 ambulatory ROSANA GALO Not Available Start: 12-16-2023 End: 12-16-2023 ambulatory BRIA YOJANA Not Available Start: 11-27-2023 End: 11-27-2023 ambulatory ROSANA GALO Not Available Start: 11-27-2023 End: 11-27-2023 Office outpatient visit 15 minutes Rosana HAYES Work Phone: [facility] Comment on above: Second trimester pre gnancy; with normal glucose tolerance test (GTT); Diabetes mellitus screening; History of miscarriage; History of oligohydramnios Start: 11-19-2023 End: 11-20-2023 ambulatory [facility] Start: 10-29-2023 End: 10-30-2023 ambulatory [facility] Start: 10-28-2023 End: 10-28-2023 ambulatory BRIA YOJANA Not Available Start: 10-22-2023 Documentation procedure Haseeb Nice MD Work Phone: [facility] Start: 10-22-2023 Telephone encounter Rachelle TREJO [facility] Start: 10-21-2023 Chart abstracting Aliya berger MD Work Phone: [facility] Start: 10-17-2023 Orders Only Robbi Rodriguez [facility]- Medicine at [facility] Comment on above: History of oligohydr amnios in prior , currently (Primary Dx) Start: 10-16-2023 End: 10-17-2023 ambulatory BRIA BALES [facility] Start: 10-16-2023 End: 10-16-2023 Office outpatient new 45 minutes Haseeb Nice MD Work Phone: [facility] Comment on above: High-risk in second trimester (Primary Dx); History of oligohydramnios in prior , currently ; 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 Facility:[facility] Start: 03-03-2022 End: 03-03-2022 ambulatory CSASANDRA ROSALES Facility:[facility] Procedures Date Procedure Procedure Detail Performing Clinician Start: 11-27-2023 Urnls dip stick/tabl et rgnt non-auto w/o micrscp Rosana HAYES Work Phone: Plan of Treatment Date Care Activity Detail Author Start: 10-20-2032 DTaP,Tdap and Td Vaccines (9 - Td or Tdap) DTaP,Tdap and Td Vaccines (9 - Td or Tdap) [facility] Start: 10-17-2024 End: 10-17-2024 US MFM with or without consult US MFM with or without consult Imaging Routine History of oligohydramnios in prior , currently Expected: 10/17/2024 (Approximate), Expires: 10/17/2024 [facility] Work Phone: Comment on above: Expected: 10/17/2024 (Approximate), Expires: 10/17/2024 Start: 10-16-2024 Adult BMI Screening Adult BMI Screen ing [facility] Start: 10-16-2024 Tobacco Screening Tobacco Screening [facility] Start: 12-11-2023 End: 12-11-2023 Patient encounter procedure 12/11/2023 10:20 AM EST Routine [facility] [address] [place] [address] Bria Bales, DO [address] [place] [address] [facility] Start: 11-27-2023 End: 11-27-2024 CBC panel - Blood by Automated count CBC Lab Routine Diabetes mellitus screening Expected: 11/27/2023 (Approximate), Expires: 11/27/2024 [facility] Work Phone: Comment on above: Expected: 11/27/2023 (Approximate), Expires: 11/27/2024 Start: 11-27-2023 End: 11-27-2024 Measurement of glucose 1 hour after glucose challenge for glucose tolerance test Glucose tolerance, 1 hour Lab Routine Diabetes mellitus screening Expected: 11/27/2023 (Approximate), Expires: 11/27/2024 [facility] Comment on above: Expected: 11/27/2023 (Approximate), Expires: 11/27/2024 Start: 11-27-2023 End: 11-27-2024 US biophysical profile w non stress test US biophysical profile w non stress test Imaging Routine History of miscarriage History of oligohydramnios Expected: 11/27/2023 (Approximate), Expires: 11/27/2024 [facility] Comment on above: Expected: 11/27/2023 (Approximate), Expires: 11/27/2024 Start: 11-27-2023 End: 11-27-2024 US for US OB SCAN FOR GROWTH Imaging Routine History of miscarriage History of oligohydramnios Expected: 11/27/2023 (Approximate), Expires: 11/27/2024 [facility] Comment on above: Expected: 11/27/2023 (Approximate), Expires: 11/27/2024 Start: 11-19-2023 End: 11-19-2023 Patient encounter procedure 11/19/2023 9:15 AM EST Appointment [facility] - Ultrasound [address] [place] [address] [facility] - Ultrasound Start: 10-29-2023 End: 10-29-2023 Patient encounter procedure 10/29/2023 9:15 AM EST Appointment [facility] - Ultrasound [address] [place] [address] [facility] - Ultrasound Start: 10-16-2023 End: 10-16-2023 Patient encounter procedure 10/16/2023 1:00 PM EST Office Visit [facility] at [facility] [address] [place] [address] Haseeb Nice MD [address], [address] [place] [id number] [facility] Start: 10-16-2023 Subsequent hospital visit by physician 10/16/2023 11:30 AM EST Hospital Encounter [facility] Imaging [address] [place] [address] [facility] Start: 06-14-2023 Influenza vaccination Influenza Vacc ine [facility] Start: 2014 Screening for malignant neoplasm of cervix Pap Smear [facility] Start: 2012 DTaP,Tdap and Td Vaccines (1 - Tdap) DTaP,Tdap and Td Vaccines (1 - Tdap) [facility] Start: 2011 Adult BMI Screening Adult BMI Screen ing [facility] Start: 2005 Depression Screening Depression Scre ening [facility] Start: 2005 Tobacco Screening Tobacco Screening [facility] Start: 1993 Tobacco Counseling Tobacco Counselin g [facility] Payers Date Payer Category Payer Medicaid [id number] 1993 Unknown [id number] 2.16.84 0.1.529714.3.579.2.593 1993 Unknown [id number] 2.16.84 0.1.405933.3.579.2.593 1993 Unknown [id number] 2.16.84 0.1.586837.3.579.2.593 1993 Unknown [id number] 2.16.84 0.1.886334.3.579.2.593 1993 Unknown [id number] 2.16.84 0.1.907908.3.579.2.593 1993 Unknown [id number] 2.16.84 0.1.975720.3.579.2.593 1993 Unknown [id number] 2.16.84 0.1.680965.3.579.2.593 1993 Unknown [id number] 2.16.84 0.1.913696.3.579.2.593 1993 Unknown [id number] 2.16.84 0.1.985916.3.579.2.593 1993 Unknown [id number] 2.16.84 0.1.601064.3.579.2.593 1993 Unknown [id number] 2.16.84 0.1.913891.3.579.2.593 1993 Unknown [id number] 2.16.84 0.1.647154.3.579.2.593 1993 Unknown [id number] 2.16.84 0.1.538759.3.579.2.1286 1993 Unknown [id number] 2.16.84 0.1.971550.3.579.2.1286 1993 Unknown [id number] 2.16.8 40.1.362875.3.579.2.1286 1993 Unknown [id number] 2.16.84 0.1.535991.3.579.2.1286 1993 Unknown [id number] 2.16.84 0.1.766779.3.579.2.1259 1993 Unknown [id number] 2.16.84 0.1.095554.3.579.2.1259 1993 Unknown [id number] 2.16.84 0.1.420811.3.579.2.1259 1993 Unknown [id number] 2.16.84 0.1.023625.3.579.2.1259 1993 Unknown [id number] 2.16.840 .1.479523.3.579.2.1259 1993 Unknown [id number] 2.16.840 .1.647231.3.579.2.1259 1959 Self-pay [id number] 1959 Unknown [id number] 1961 Unknown [id number] Social History Date Type Detail Facility Start: 10-15-2023 Tobacco smoking status NMIS Tobacco smoking consumption unknown [facility] Start: 03-23-2019 End: 10-16-2023 History of Social function [facility] Start: 03-23-2019 End: 10-16-2023 Housing Instability [facility] Housing Instability Unknown [facility] Start: 06-10-2023 [facility] Start: 1995 Sex Assigned At Not on file [facility] Start: 10-16-2023 Tobacco smoking status NHIS Smokes tobacco daily [facility] History of tobacco use Cigarette Smoker P [facility] Start: 10-16-2023 Tobacco use and exposure Smokeless tobacco non-user [facility] Start: 10-16-2023 End: 10-21-2023 Alcohol intake Ex-drinker (finding) [facility] Start: 1995 Sex Assigned At Female [facility] Start: 08-07-2023 Gender identity Identifies as female gender (finding) [facility] Start: 08-07-2023 Sexual orientation Heterosexual (finding) [facility] Goals Date Patient Goal Desired [...] of: ABIGAIL Chinchilla documented in this encounter [facility] 10-22-2023 Miscellaneous Notes Formattin g of this note might be different from the original. Please call us back to schedule an ultrasound next week. documented in this encounter [facility] 10-22-2023 Telephone encount er Note Please call us back to schedule an ultrasound next week. [facility] 10-22-2023 History of Presen t [...] increase p.o. hydration. documented in this encounter [facility] 10-16-2023 History of Presen t illness Narrative Headache/epigastric pain/blurry vision/swelling? No Cramping/contractions? No Abnormal vaginal discharge? No Spotting/vaginal bleeding? No Loss of fluid like your water may have broken? No Cats in the home? No Do you change the litter box? N/A Flu vaccine? No Genetic testing done this here or other office? Yes Have you been seen here at [facility] in a previous ? No Recent ER visits or hospitalizations? No Bring blood sugar log or meter with you today? (Please bring them with you for every visit at [facility]) N/A Traveled outside the country in the past 6 month No Any concerns that you would like me to mention to the provider today? No [facility] Maternal- Medicine Consult Note Reason For [...] Yes Not In System Ref Prov vit no.063-dazr-afjca acid ( VITAMIN) 27 mg iron- 800 [...] continue with routine care in your office [facility], the CDC, and other organizations representing maternal and public health professionals recommend that , , and lactating people and those considering receive the COVID-19 vaccination. Vaccination is the best method to reduce maternal and complications of SARS-CoV-2 infection. This document was created with [employer] technology. Though I make every effort to review the dictation as it is transcribed, on occasion the spoken word can be misinterpreted by the technology leading to inappropriate words, phrases, or sentences. This note is addressed to the requesting provider as a consultation for clinical guidance. Specific medical abbreviations are occasionally used and those are generally approved by the [place]?Board of?Obstetrics and?Gynecology?as well as?James s abbreviations. The above plan of care was based solely on the diagnoses for which a consultation was requested. ?More frequent testing may be indicated based on her other medical/obstetrical conditions. The management of other or medical conditions is beyond the scope of requested consultation and will continue to be followed by the primary rig welder or primary care provider. Thank you for allowing me to participate in her care. Please contact me if you have any concerns. documented in this encounter [employer] 03-16-2022 Note PROCEDURE: XR SHOULD ER RT 2V or > HISTORY: Impingement syndrome of right shoulder region ; acute right shoulder pain, no known injury COMPARISON: None. FINDINGS: BONES:No fracture, acute abnormality, or significant arthropathy. SOFT TISSUES:No visible soft tissue swelling. EFFUSION:None visible. OTHER: Negative. IMPRESSION: 1. Normal examination. Electronically authenticated by: GENI CABRAL Date: 2022-03-16 18:16 [facility] Evaluation note Diagnosis High-risk in second trimester- Primary History of oligohydramnios in prior , currently with other poor obstetric history 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 20 weeks gestation of documented in this encounter [facility] Diagnosis History of oligohydramnios in prior , currently - Primary with other poor obstetric history documented in this encounter [facility] Diagnosis Second trimester state, incidental with normal glucose tolerance test (GTT) Diabetes mellitus screening Screening for diabetes mellitus History of miscarriage Personal history of other genital system and obstetric disorders History of oligohydramnios documented in this encounter [facility] HealthcareInstructionsNot on filedocumented in this encounter[facility] SystemInstructionsNot on filedocumented in this encounterProOhiohealth [facility] SystemInstructionsNot on filedocumented in this encounterProOhiohealth [facility] SystemInstructionsNot on filedocumented in this encounterMer[facility] Summary Purpose Family History No [...] Haseeb Nice MD [address], [address] [place] [id number] [facility]aternal Med [address] [place] [address] Referral ID Status Reason Start Date Expiration Date V isits Requested Visits Authorized [id number] Pending Review 10/17/2023 10/16/2024 1 1 Additional Source Comments INFORMATION SOURCE (unrecogn ized section and content) DATE CREATED AUTHOR 01/31/2023 [facility] DATE CREATED AUTHOR AUTHOR'S ORGANIZ ATION 10/20/2023 [facility] DATE CREATED AUTHOR AUTHOR'S ORGANIZ ATION 11/24/2023 [facility] DATE CREATED AUTHOR AUTHOR'S ORGANIZ ATION 01/01/2024 [facility] EPIC Reason for Visit [...] ON THE PRIMARY CLINICAL RECORDS. [facility]. provides no warranty or guarantee of the accuracy or completeness of information in this document.
--- NOTE | 2024-01-06 14:04 | US_ITS ---
[address] [address] Patient Name: JERAMY SWEENEY MRN: [id number] date: 1995 Sex: F Assigned Patient Location: US Current Patient Location: US Accession/Order Number: [id number] Exam Date: 01/06/2024 14:30 Report Date: 01/07/2024 07:06 At the request of: BRIA DIAL Procedure: US OB growth EXAMINATION: US OB growth HISTORY: History of oligohydramnios Z87.59 COMPARISON: No relevant comparison available. FINDINGS: Heart Rate: 139.2 bpm Amniotic Fluid Volume: 21.4 cm Number: 1.0 Position: Cephalic presentation, longitudinal lie Maximum Vertical Pocket: 8.6 cm cm 1.9 cm cm 5.7 cm cm 5.2 cm cm BIOMETRY: BPD: 8.2 cm cm; 32 weeks 6 days; 66% HC: 29.4 cmcm; 32 weeks 3 days , 25% AC: 28.2 cm cm; 32 weeks 2 days, 55% FL: 5.9 cm cm; 30 weeks 4 days; 8.5 % % EFW: 1841.5 grams, 4 lbs. 1 oz., 33% FL/AC: 20.8 FL/BPD: 71.8 HC/AC: 1.0 GESTATIONAL AGE: Age by EDC: 32 weeks 0 days GOOD by EDC: 03/02/2024 Age by US: 32 weeks 0 days GOOD by US: 03/02/2024 US/US OB growth IMPRESSION: Normal interval growth Electronically authenticated by: ALFA TEJEDA Date: 01/07/2024 07:06
--- NOTE | 2024-01-06 14:04 | US_ITS ---
[address] [address] Patient Name: JERAMY SWEENEY MRN: [id number] date: 1995 Sex: F Assigned Patient Location: US Current Patient Location: US Accession/Order Number: [id number] Exam Date: 01/06/2024 14:30 Report Date: 01/07/2024 07:06 At the request of: BRIA DIAL Procedure: US OB BPP w non-stress EXAMINATION: US OB BPP w non-stress HISTORY: History of miscarriage Z87.59 COMPARISON: No relevant comparison available. TECHNIQUE: Ultrasound biophysical profile was performed in the radiology department. FINDINGS: BREATHING MOVEMENTS: 2.0 GROSS BODY MOVEMENTS: 2.0 TONE: 2.0 QUALITATIVE AMNIOTIC FLUID VOLUME: 2.0 PRESENTATION: CEPHALIC HEART RATE: 139.2 bpm H.B./min AMNIOTIC FLUID VOLUME: 21.4 cm cm GESTATIONAL AGE: 32 weeks 0 days CONCLUSION: Total biophysical profile score: 8.0 Electronically authenticated by: ALFA TEJEDA Date: 01/07/2024 07:06
[2024-01-06 14:05] VITALS: BP 102/61; PULSE 113
== END 2024-01-06 15:09 | disposition home or self-care (01) ==
LOC: US 07:39 → FBC 14:01
PROVIDERS: Visit Provider Obstetrics & Gynecology
DX: Z87.59 Personal history of other complications of pregnancy, childbirth and the puerperium (principal); E07.9 Disorder of thyroid, unspecified
CPT/HCPCS: 76816; 76818

== ENCOUNTER 2024-01-07 07:59 | Outpatient (OUT) | payer OTHER, SELFPAY ==
--- OUTSIDE RECORDS SUMMARY | 2024-01-07 08:04 | XMS_ITS | CCD ---
Author Organization [facility] Care Team Providers Care Scan Coordinator Name Role Phone RUSSELL, DR DEBBIE Mohan [...] MARIS Vail Attending Unavailable MARCH ., DR MRAIS V[place] Admitting Unavailable ZIEBER, DR GENI Lemos [...] Unavailable Primary Care Provider Unavailabl e YOJANA, BIRA R Referring Unavailable MOUSSHASEEB Farris Attending Unavailable [...] for nausea or vomiting. 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 CURRENT DRUG THERAPY] Onset: 01-23-2023 Episodic Other [...] UA Negative Negative - 4(70) +++ mg/dL [facility] Blood, UA Negative Negative - 50 Felice/mcL [facility] Clarity, UA Clear [facility] Color, UA Yellow [facility] Glucose, UA Negative Negative - 1999(110) ++++ mg/dL [facility] Interpretation and review of laboratory results Normal [facility] Ketones, UA Negative Negative - 160(16) ++++ mg/dL [facility] Leukocytes, UA Negative Negative - 500+++ Regina/mcL [facility] Nitrite, UA Negative Negative - Positive [facility] pH, UA 5.5 5 - 9 [facility] Protein, UA Negative Negative - 1999(20) ++++ mg/dL [facility] Spec Grav, UA 1.030 1 - 1.03 [facility] Urobilinogen, UA 0.2 0.2 - 12 mg/dL [facility] PREG QUANT HCGon 01-28-2023 HCG QUANT 17 mIU/mL Normal [facility] Comment on above: Performed By: #### P REGQNT #### [facility] [address] [address] [address] Anna Romero HCG RANGE SEE BELOW Normal [facility] Comment on above: Result Comment: 5-50 0.2-1 WEEK 50-500 1-2 WEEKS 100-5,000 2-3 WEEKS 500-10,000 3-4 WEEKS 1,000-50,000 4-5 WEEKS 10,000-100,000 5-6 WEEKS 15,000-200,000 6-8 WEEKS 10,000-100,000 2-3 MONTHS Performed By: #### P REGQNT #### [facility] [address] [place] [address] Dr. Anna Romero PREG QUANT HCGon 01-23-2023 HCG QUANT 441 mIU/mL Normal [facility] Comment on above: Performed By: #### S SCRN, GRASTCX #### [facility] [address] [place] [address] Dr. Anna Romero HCG RANGE SEE BELOW Normal [facility] Comment on above: Result Comment: 5-50 0.2-1 WEEK 50-500 1-2 WEEKS 100-5,000 2-3 WEEKS 500-10,000 3-4 WEEKS 1,000-50,000 4-5 WEEKS 10,000-100,000 5-6 WEEKS 15,000-200,000 6-8 WEEKS 10,000-100,000 2-3 MONTHS Performed By: #### S SCRN, GRASTCX #### [facility] [address] [place] [address] Dr. Anna Romero ABO AND RH TYPEon 01-21-2023 ABO and Rh group Nom (Bld) ABO Rh Typing A Rh Positive Normal [facility] Comment on above: Performed By: #### S SCRN, GRASTCX #### [facility] [address] [place] [address] Dr. Anna Romero ER URINE PROFILEon 3 Bilirubin Ql (U) Negative Normal NEGATIVE [facility] Comment on above: Performed By: #### JD URIASRO #### [facility] [address] [place] [address] Dr. Anna Romero Clarity (U) CLEAR Normal CLEAR [facility] Comment on above: Performed By: #### Yared BARBOSA UMICRO #### [facility] [address] [place] [address] Dr. Anna Romero Color (U) YELLOW Normal YELLOW [facility] Comment on above: Performed By: #### FANG URIASICRO #### [facility] [address] [place] [address] Dr. Anna BAER A micrscopic examination will be performed if indicated. Normal [facility] Comment on above: Performed By: #### FANG URIASICRO #### [facility] [address] [place] [address] Dr. Anna Romero Glucose Ql (U) Negative Normal NEGATIVE [facility] Comment on above: Performed By: #### Yared BARBOSA UMICRO #### [facility] [address] [place] [address] Dr. Anna Romero Hemoglobin Ql (U) LARGE Abnormal NEGATIVE [facility] Comment on above: Performed By: #### Yared BARBOSA UMICRO #### [facility] [address] [place] [address] Dr. Anna Rmoero Ketones Ql (U) Negative Normal NEGATIVE [facility] Comment on above: Performed By: #### Yared BARBOSA UMICRO #### [facility] [address] [place] [address] Dr. Anna Romero LEUKOCYTES Negative Normal NEGATIVE [facility] Comment on above: Performed By: #### JD URIASRO #### [facility] [address] [place] [address] Dr. Anna Romero Nitrite Ql (U) Negative Normal NEGATIVE [facility] Comment on above: Performed By: #### FANG URIASICRO #### [facility] [address] [place] [address] Dr. Anna Romero pH (U) 5.5 [pH] Normal 5-9 [facility] Comment on above: Performed By: #### FANG URIASICRO #### [facility] [address] [place] [address] Dr. Anna Romero SPEC GRAVITY >=1.030 Abnormal 1.005-<=1.025 [facility] Comment on above: Performed By: #### JD URIASRO #### [facility] [address] [place] [address] Dr. Anna Romero UA PROTEIN TRACE Normal NEGATIVE/ TRACE [facility] Comment on above: Performed By: #### JD URIASRO #### [facility] [address] [place] [address] Dr. Anna Romero UR MICRO IND INDICATED Normal [facility] Comment on above: Performed By: #### JD URIASRO #### [facility] [address] [place] [address] Dr. Anna Romero Urobilinogen Qn (U) 0.2 {Joel'U}/dL Normal 0.2 - 1. 0 [facility] Comment on above: Performed By: #### JD URIASRO #### [facility] [address] [place] [address] Dr. Anna Romero PREG QUANT HCGon 01-21-2023 HCG QUANT 1693 mIU/mL Normal [facility] Comment on above: Performed By: #### S DAT AGUIRRETCX #### [facility] [address] [place] [address] Dr. Anna Romero HCG RANGE SEE BELOW Normal [facility] Comment on above: Result Comment: 5-50 0.2-1 WEEK 50-500 1-2 WEEKS 100-5,000 2-3 WEEKS 500-10,000 3-4 WEEKS 1,000-50,000 4-5 WEEKS 10,000-100,000 5-6 WEEKS 15,000-200,000 6-8 WEEKS 10,000-100,000 2-3 MONTHS Performed By: #### S CARLA GRASTCX #### [facility] [address] [place] [address] Dr. Anna Romero URINE MICROSCOPIC ONLYon BACTERIA TRACE Abnormal NONE SEEN [facility] Comment on above: Performed By: #### JD URIASRO #### [facility] [address] [place] [address] Dr. Anna Romero Bacteria identified Cx Nom (U) NOT INDICATED Normal [facility] Comment on above: Performed By: #### JD URIASRO #### [facility] [address] [place] [address] Dr. Anna Romero CAST NONE SEEN Normal NONE SEEN [facility] Comment on above: Performed By: #### Yared BARBOSA UMICRO #### [facility] [address] [place] [address] Dr. Anna Romero Crystals LM Nom (Urine sed) NONE SEEN Normal NONE SEEN [facility] Comment on above: Performed By: #### Yared BARBOSA UMICRO #### [facility] [address] [place] [address] Dr. Anna Romero Epithelial cells LM Ql (Urine sed) RARE Normal NONE SEEN /RARE [facility] Comment on above: Performed By: #### Yared BARBOSA UMICRO #### [facility] [address] [place] [address] Dr. Anna Romero MUCOUS TRACE Abnormal NONE SEEN [facility] Comment on above: Performed By: #### Yared BARBOSA UMICRO #### [facility] [address] [place] [address] Dr. Anna Romero RBC 2-5 Abnormal 0-2 [facility] Comment on above: Performed By: #### Yared BARBOSA UMICRO #### [facility] [address] [place] [address] Dr. Anna Romero WBC 0-2 Abnormal NONE SEEN [facility] Comment on above: Performed By: #### Yared BARBOSA UMICRO #### [facility] [address] [place] [address] Dr. Anna Romero US PREG TVon 01-21-2023 [...] JEAN BAPTISTE Date: 2023-01-21 16:54 Normal [facility] ER URINE PROFILEon 3 Bilirubin Ql (U) Negative Normal NEGATIVE [facility] Comment on above: Performed By: #### E RUR #### [facility] [address] [place] [address] Dr. Anna Romero Clarity (U) CLEAR Normal CLEAR [facility] Comment on above: Performed By: #### E RUR #### [facility] [address] [place] [address] Dr. Anna Romero Color (U) YELLOW Normal YELLOW [facility] Comment on above: Performed By: #### E RUR #### [facility] [address] [place] [address] Dr. Anna Romero ERUAHD A micrscopic examination will be performed if indicated. Normal [facility] Comment on above: Performed By: #### E RUR #### [facility] [address] [place] [address] Dr. Anna Romero Glucose Ql (U) Negative Normal NEGATIVE [facility] Comment on above: Performed By: #### E RUR #### [facility] [address] [place] [address] Dr. Anna Romero Hemoglobin Ql (U) Negative Normal NEGATIVE [facility] Comment on above: Performed By: #### E RUR #### [facility] [address] [place] [address] Dr. Anna Romero Ketones Ql (U) Negative Normal NEGATIVE [facility] Comment on above: Performed By: #### E RUR #### [facility] [address] [place] [address] Dr. Anna Romero LEUKOCYTES Negative Normal NEGATIVE [facility] Comment on above: Performed By: #### E RUR #### [facility] [address] [place] [address] Dr. Anna Romero Nitrite Ql (U) Negative Normal NEGATIVE [facility] Comment on above: Performed By: #### E RUR #### [facility] [address] [place] [address] Dr. Anna Romero pH (U) 6.5 [pH] Normal 5-9 [facility] Comment on above: Performed By: #### E RUR #### [facility] [address] [place] [address] Dr. Anna Romero SPEC GRAVITY 1.025 Normal 1.005-<=1.025 [facility] Comment on above: Performed By: #### E RUR #### [facility] [address] [place] [address] Dr. Anna Romero UA PROTEIN TRACE Normal NEGATIVE/ TRACE [facility] Comment on above: Performed By: #### E RUR #### [facility] [address] [place] [address] Dr. Anna Romero UR MICRO IND NOT INDICATED Normal [facility] Comment on above: Performed By: #### E RUR #### [facility] [address] [place] [address] Dr. Anna Romero Urobilinogen Qn (U) 0.2 {Joel'U}/dL Normal 0.2 - 1. 0 [facility] Comment on above: Performed By: #### E RUR #### [facility] [address] [place] [address] Dr. Anna Romero GROUP A STREP CULTUREon 12-13 S. pyogenes Ag Ql (Unsp spec) Culture Observations: NEGATIVE FOR GROUP A STREPTOCOCCUS. Normal [facility] Comment on above: Performed By: #### S CARLA GRASTCX #### [facility] [address] [place] [address] Dr. Anna Romero STREPT SCREENon 01-08-2023 STREP SCREEN A Negative Normal NEGATIVE [facility] Comment on above: Performed By: #### S CARLA, GRASTCX #### [facility] [address] [place] [address] Dr. Anna Romero SYMPTOMATIC COVID-19 ANTIGEN on 01-08-2023 EUA Statement SEE BELOW Normal [facility] Comment on above: Result Comment: This test [...] Performed By: #### S CARLA GRASTCX #### [facility] [address] [place] [address] Dr. Anna Romero SARS-CoV-2 (COVID-19) RNA DAVY+probe Ql (Unsp spec) Positive Abnormal NEGATIVE [facility] Comment on above: Performed By: #### S CARLA GRASTCX #### [facility] [address] [place] [address] Dr. Anna Romero US PREG TVon 05-31-2022 [...] GENI CABRAL Date: 2022-05-31 19:46 Normal [facility] BILIRUBIN TOTALon 03-16-2022 Bilirubin [Mass/Vol] 0.3 mg/dL Normal 0.2-1.0 [facility] Comment on above: Performed By: #### T DALE #### [facility] [address] [place] [address] Dr. Anna Romero CBC AUTO DIFFon 03-16-2022 BASO # 0.0 103/ul Normal 0.0-0.1 [facility] Comment on above: Performed By: #### C BC #### [facility] [address] [place] [address] Dr. Anna Romero Basophils/100 WBC (Bld) 0.4 % Normal 0.2-2.0 [facility] Comment on above: Performed By: #### C BC #### [facility] [address] [place] [address] Dr. Anna Romero EO # 0.0 103/ul Normal 0.0-0.7 [facility] Comment on above: Performed By: #### C BC #### [facility] [address] [place] [address] Dr. Anna Romero Eosinophils/100 WBC (Bld) 0.2 % Critically low 0.9-7.0 [facility] Comment on above: Performed By: #### C BC #### [facility] [address] [place] [address] Dr. Anna Romero Erythrocyte distribution width (RBC) [Ratio] 12.8 % Normal 11.0-15.0 [facility] Comment on above: Performed By: #### C BC #### [facility] [address] [place] [address] Dr. Anna Romero Hematocrit (Bld) [Volume fraction] 39.2 % Normal 36.0-48.0 [facility] Comment on above: Performed By: #### C BC #### [facility] [address] [place] [address] Dr. Anna Romero Hemoglobin (Bld) [Mass/Vol] 12.9 g/dL Normal 12.0-16.0 [facility] Comment on above: Performed By: #### C BC #### [facility] [address] [place] [address] Dr. Anna Romero IG # 0.01 10e3/ul Normal 0.00-0.03 [facility] Comment on above: Performed By: #### C BC #### [facility] [address] [place] [address] Dr. Anna Romero IG % 0.2 % Normal 0.0-0.5 [facility] Comment on above: Performed By: #### C BC #### [facility] [address] [place] [address] Dr. Anna Romero LYMPH # 1.6 103/ul Normal 1.2-3.8 [facility] Comment on above: Performed By: #### C BC #### [facility] [address] [place] [address] Dr. Anna Romero Lymphocytes/100 WBC (Bld) 29.8 % Normal 20.5-60.0 [facility] Comment on above: Performed By: #### C BC #### [facility] [address] [place] [address] Dr. Anna Romero MANUAL DIFF REQ NO Normal [facility] Comment on above: Performed By: #### C BC #### [facility] [address] [place] [address] Dr. Anna Romero MCH (RBC) [Entitic mass] 31.8 pg Normal 26.7-34.0 [facility] Comment on above: Performed By: #### C BC #### [facility] [address] [address] [address] Anna Romero MCHC (RBC) [Mass/Vol] 32.9 g/dL Normal 29.9-35.2 [facility] Comment on above: Performed By: #### C BC #### [facility] [address] [place] [address] Dr. Anna Romero MCV (RBC) [Entitic vol] 96.6 fL Normal 81.0-99.0 [facility] Comment on above: Performed By: #### C BC #### [facility] [address] [place] [address] Dr. Anna Romero MONO # 0.4 103/ul Normal 0.3-0.8 [facility] Comment on above: Performed By: #### C BC #### [facility] [address] [place] [address] Dr. Anna Romero Monocytes/100 WBC (Bld) 7.2 % Normal 1.7-12.0 [facility] Comment on above: Performed By: #### C BC #### [facility] [address] [place] [address] Dr. Anna Romero NEUT # 3.3 103/ul Normal 1.4-6.5 [facility] Comment on above: Performed By: #### C BC #### [facility] [address] [place] [address] Dr. Anna Romero Neutrophils/100 WBC (Bld) 62.2 % Normal 43.0-75.0 [facility] Comment on above: Performed By: #### C BC #### [facility] [address] [place] [address] Dr. Anna Romero Platelet mean volume (Bld) [Entitic vol] 10.0 fL Normal 9.5-13.5 [facility] Comment on above: Performed By: #### C BC #### [facility] [address] [place] [address] Dr. Anna Romero PLT 153 103/ul Normal 150-450 [facility] Comment on above: Performed By: #### C BC #### [facility] [address] [place] [address] Dr. Anna Romero RBC 4.06 106/ul Critically low 4.20-5.40 [facility] Comment on above: Performed By: #### C BC #### [facility] [address] [place] [address] Dr. Anna Romero WBC 5.3 103/ul Normal 4.0-11.0 [facility] Comment on above: Performed By: #### C BC #### [facility] [address] [place] [address] Dr. Anna Romero FREE T3on 03-16-2022 FREE T3 3.18 pg/mlL Normal 2.18-3.98 [facility] Comment on above: Performed By: #### S CARLA GRASTCX #### [facility] [address] [place] [address] Dr. Anna Romero FREE T4on 03-16-2022 Free T4 [Mass/Vol] 1.08 ng/dL Normal 0.76-1.46 [facility] Comment on above: Performed By: #### F T4 #### [facility] [address] [place] [address] Dr. Anna Romero PROF 14(COMP METB)on 022 Albumin [Mass/Vol] 4.3 g/dL Normal 3.4-5.0 [facility] Comment on above: Performed By: #### S CARLA GRASTCX #### [facility] [address] [place] [address] Dr. Anna Romero Albumin/Globulin [Mass ratio] 1.2 {ratio} Normal [facility] Comment on above: Performed By: #### S ACRLA GRASTCX #### [facility] [address] [place] [address] Dr. Anna Romero ALP [Catalytic activity/Vol] 60 U/L Normal 46-116 [facility] Comment on above: Performed By: #### S CARLA GRASTCX #### [facility] [address] [place] [address] Dr. Anna Romero ALT [Catalytic activity/Vol] 25 U/L Normal 14-59 [facility] Comment on above: Performed By: #### S MOISEN GRASTCX #### [facility] [address] [address] [address] Anna Romero Anion gap [Moles/Vol] 13.8 mmol/L Normal [facility] Comment on above: Performed By: #### S SCRN, GRASTCX #### [facility] [address] [address] [address] Anna Romero AST [Catalytic activity/Vol] 21 U/L Normal 15-37 [facility] Comment on above: Performed By: #### S CARLA GRASTCX #### [facility] [address] [place] [address] Dr. Anna Romero Calcium [Mass/Vol] 9.4 mg/dL Normal 8.5-10.1 [facility] Comment on above: Performed By: #### S CARLA, GRASTCX #### [facility] [address] [place] [address] Dr. Anna Romero Chloride [Moles/Vol] 101 mmol/L Normal 98-107 [facility] Comment on above: Performed By: #### S CARLA, GRASTCX #### [facility] [address] [place] [address] Dr. Anna Romero CO2 [Moles/Vol] 26.8 mmol/L Normal 21.0-32.0 [facility] Comment on above: Performed By: #### S SCRN, GRASTCX #### [facility] [address] [place] [address] Dr. Anna Romero Creatinine [Mass/Vol] 0.87 mg/dL Normal 0.55-1.02 [facility] Comment on above: Performed By: #### S SCRN, GRASTCX #### [facility] [address] [place] [address] Dr. Anna Romero EGFR-AF CITIZEN OF [place] >60 Normal >=60 [facility] Comment on above: Performed By: #### S SCRN, GRASTCX #### [facility] [address] [address] [address] Anna Romero EGFR-NON AF CITIZEN OF [place] >60 Normal >=60 [facility] Comment on above: Performed By: #### S SCRN, GRASTCX #### [facility] [address] [address] [address] Anna Romero Globulin (S) [Mass/Vol] 3.5 g/dL Normal [facility] Comment on above: Performed By: #### S SCRN, GRASTCX #### [facility] [address] [place] [address] Dr. Anna Romero Glucose [Mass/Vol] 80 mg/dL Normal 74-106 [facility] Comment on above: Performed By: #### S SCRN, GRASTCX #### [facility] [address] [place] [address] Dr. Anna Romero Potassium [Moles/Vol] 3.6 mmol/L Normal 3.5-5.1 [facility] Comment on above: Performed By: #### S SCRN, GRASTCX #### [facility] [address] [place] [address] Dr. Anna Romero Protein [Mass/Vol] 7.8 g/dL Normal 6.4-8.2 [facility] Comment on above: Performed By: #### S SCRN, GRASTCX #### [facility] [address] [place] [address] Dr. Anna Romero Sodium [Moles/Vol] 138 mmol/L Normal 136-145 [facility] Comment on above: Performed By: #### S SCRN, GRASTCX #### [facility] [address] [place] [address] Dr. Anna Romero Urea nitrogen [Mass/Vol] 12.0 mg/dL Normal 7.0-18.0 [facility] Comment on above: Performed By: #### S SCRN, GRASTCX #### [facility] [address] [place] [address] Dr. Anna Romero Urea nitrogen/Creatinine [Mass ratio] 13.8 mg/mg Normal [facility] Comment on above: Performed By: #### S SCRN, GRASTCX #### [facility] [address] [address] [address] Anna Romero TSHon 03-16-2022 TSH 2.442 uIU/mL Normal 0.358-3.740 [facility] Comment on above: Performed By: #### S SCRN, GRASTCX #### [facility] [address] [place] [address] Dr. Anna Romero TSH RANGE SEE BELOW Normal [facility] Comment on above: Result Comment: <0.3 4 UIU/ml HYPERTHYROID 0.34-5.60 UIU/ml EUTHYROID >5.60 UIU/ml HYPOTHYROID Performed By: #### S SCRN, GRASTCX #### [facility] [address] [place] [address] Dr. Anna Romero Vital Signs Date Time Vital Sign Value Performing Clinician Faci lity 11-27-2023 14:46-0500 Body mass index (BMI) [Ratio] 25.66 kg/m2 Rosana HAYES Work Phone: [facility] 11-27-2023 14:46-0500 Body weight 72.12 kg Rosana HAYES Work Phone: [facility] 11-27-2023 14:46-0500 Diastolic blood pressure 60 mm[Hg] Rosana HAYES Work Phone: [facility] 11-27-2023 14:46-0500 Systolic blood pressure 102 mm[Hg] Rosana HAYES Work Phone: [facility] 10-16-2023 12:21-0500 Body height 170.2 cm Haseeb Nice MD Work Phone: [facility] 10-16-2023 12:21-0500 Body mass index (BMI) [Ratio] 22.55 kg/m2 Haseeb Nice MD Work Phone: [facility] 10-16-2023 12:21-0500 Body weight 65.32 kg Haseeb Nice MD Work Phone: [facility] 10-16-2023 12:21-0500 Diastolic blood pressure 66 mm[Hg] Haseeb Nice MD Work Phone: [facility] 10-16-2023 12:21-0500 Heart rate 79 /min Haseeb Nice MD Work Phone: [facility] 10-16-2023 12:21-0500 Systolic blood pressure 109 mm[Hg] Haseeb Nice MD Work Phone: [facility] Encounters Encounter Date Encounter Type Care Provider Facility Start: 12-31-2023 End: 12-31-2023 ambulatory ROSANA GALO Not Available Start: 12-16-2023 End: 12-16-2023 ambulatory BRIA YOJANA Not Available Start: 11-27-2023 End: 11-27-2023 ambulatory ROSANA GALO Not Available Start: 11-27-2023 End: 11-27-2023 Office outpatient visit 15 minutes Rosana HAYES Work Phone: [facility] Comment on above: Second trimester pre gnancy; with normal glucose tolerance test (GTT); Diabetes mellitus screening; History of miscarriage; History of oligohydramnios Start: 11-19-2023 End: 11-20-2023 ambulatory [facility] Start: 10-29-2023 End: 10-30-2023 ambulatory [facility] Start: 10-28-2023 End: 10-28-2023 ambulatory BRIA YOJANA Not Available Start: 10-22-2023 Documentation procedure Haseeb Nice MD Work Phone: [facility] Start: 10-22-2023 Telephone encounter Rachelle TREJO Maternal- [facility] Start: 10-21-2023 Chart abstracting Aliya berger MD Work Phone: [facility] Start: 10-17-2023 Orders Only Robbi Rodriguez [facility]ly [facility]- [facility] at [facility] Comment on above: History of oligohydr amnios in prior , currently (Primary Dx) Start: 10-16-2023 End: 10-17-2023 ambulatory BRIA BALES [facility] Start: 10-16-2023 End: 10-16-2023 Office outpatient new 45 minutes Haseeb Nice MD Work Phone: [facility] Comment on above: High-risk in second trimester (Primary Dx); History of oligohydramnios in prior , currently ; 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; 20 weeks gestation of Start: 10-15-2023 Chart abstracting Scanning Pro vider External [facility] Start: 10-08-2023 End: 10-08-2023 ambulatory BRIA [...] Td Vaccines (9 - Td or Tdap) [facility] Start: 10-17-2024 End: 10-17-2024 US MFM with or without consult US MFM with or without consult Imaging Routine History of oligohydramnios in prior , currently Expected: 10/17/2024 (Approximate), Expires: 10/17/2024 [facility] Work Phone: Comment on above: Expected: 10/17/2024 (Approximate), Expires: 10/17/2024 Start: 10-16-2024 Adult BMI Screening Adult BMI Screen ing [facility] Start: 10-16-2024 Tobacco Screening Tobacco Screening [facility] Start: 12-11-2023 End: 12-11-2023 Patient encounter procedure 12/11/2023 10:20 AM EST Routine [facility] [address] [place] [address] Bria Bales, DO [address] [place] [address] [facility] Start: 11-27-2023 End: 11-27-2024 CBC panel - Blood by Automated count CBC Lab Routine Diabetes mellitus screening Expected: 11/27/2023 (Approximate), Expires: 11/27/2024 [facility] Work Phone: Comment on above: Expected: 11/27/2023 (Approximate), Expires: 11/27/2024 Start: 11-27-2023 End: 11-27-2024 Measurement of glucose 1 hour after glucose challenge for glucose tolerance test Glucose tolerance, 1 hour Lab Routine Diabetes mellitus screening Expected: 11/27/2023 (Approximate), Expires: 11/27/2024 [facility] Comment on above: Expected: 11/27/2023 (Approximate), Expires: 11/27/2024 Start: 11-27-2023 End: 11-27-2024 US biophysical profile w non stress test US biophysical profile w non stress test Imaging Routine History of miscarriage History of oligohydramnios Expected: 11/27/2023 (Approximate), Expires: 11/27/2024 [facility] Comment on above: Expected: 11/27/2023 (Approximate), Expires: 11/27/2024 Start: 11-27-2023 End: 11-27-2024 US for US OB SCAN FOR GROWTH Imaging Routine History of miscarriage History of oligohydramnios Expected: 11/27/2023 (Approximate), Expires: 11/27/2024 [facility] Comment on above: Expected: 11/27/2023 (Approximate), Expires: 11/27/2024 Start: 11-19-2023 End: 11-19-2023 Patient encounter procedure 11/19/2023 9:15 AM EST Appointment [facility] - Ultrasound [address] [place] [address] [facility] - Ultrasound Start: 10-29-2023 End: 10-29-2023 Patient encounter procedure 10/29/2023 9:15 AM EST Appointment [facility] - Ultrasound [address] [place] [address] [facility] - Ultrasound Start: 10-16-2023 End: 10-16-2023 Patient encounter procedure 10/16/2023 1:00 PM EST Office Visit [facility] [address] [place] [address] Haseeb Nice MD [address], [address] [place] [address] [facility] Start: 10-16-2023 Subsequent hospital visit by physician 10/16/2023 11:30 AM EST Hospital Encounter [facility] [address] [place] [address] [facility] Start: 06-14-2023 Influenza vaccination Influenza Vacc ine [facility] Start: 2014 Screening for malignant neoplasm of cervix Pap Smear [facility] Start: 2012 DTaP,Tdap and Td Vaccines (1 - Tdap) DTaP,Tdap and Td Vaccines (1 - Tdap) [facility] Start: 2011 Adult BMI Screening Adult BMI Screen ing [facility] Start: 2005 Depression Screening Depression Scre ening [facility] Start: 2005 Tobacco Screening Tobacco Screening [facility] Start: 1993 Tobacco Counseling Tobacco Counselin g [facility] Payers Date Payer Category Payer Medicaid [id number] 1993 Unknown [id number] 2.16.84 0.1.590452.3.579.2.593 1993 Unknown [id number] 2.16.84 0.1.208757.3.579.2.593 1993 Unknown [id number] 2.16.84 0.1.133354.3.579.2.593 1993 Unknown [id number] 2.16.84 0.1.597467.3.579.2.593 1993 Unknown [id number] 2.16.84 0.1.341441.3.579.2.593 1993 Unknown [id number] 2.16.84 0.1.534275.3.579.2.593 1993 Unknown [id number] 2.16.84 0.1.582743.3.579.2.593 1993 Unknown [id number] 2.16.84 0.1.382692.3.579.2.593 1993 Unknown [id number] 2.16.84 0.1.398488.3.579.2.593 1993 Unknown [id number] 2.16.84 0.1.439725.3.579.2.593 1993 Unknown [id number] 2.16.84 0.1.632055.3.579.2.593 1993 Unknown [id number] 2.16.84 0.1.804076.3.579.2.593 1993 Unknown [id number] 2.16.84 0.1.944118.3.579.2.1286 1993 Unknown [id number] 2.16.84 0.1.927252.3.579.2.1286 1993 Unknown [id number] 2.16.8 40.1.645975.3.579.2.1286 1993 Unknown [id number] 2.16.84 0.1.484812.3.579.2.1286 1993 Unknown [id number] 2.16.84 0.1.985391.3.579.2.1259 1993 Unknown [id number] 2.16.84 0.1.029509.3.579.2.1259 1993 Unknown [id number] 2.16.84 0.1.108734.3.579.2.1259 1993 Unknown [id number] 2.16.84 0.1.752762.3.579.2.1259 1993 Unknown [id number] 2.16.840 .1.987008.3.579.2.1259 1993 Unknown [id number] 2.16.840 .1.187267.3.579.2.1259 1959 Self-pay [id number] 1959 Unknown [id number] 1961 Unknown [id number] Social History Date Type Detail Facility Start: 10-15-2023 Tobacco smoking status CAIS Tobacco smoking consumption unknown [facility] Start: 03-23-2019 End: 10-16-2023 History of Social function [facility] Start: 03-23-2019 End: 10-16-2023 Housing Instability [facility] Housing Instability Unknown [facility] Start: 06-10-2023 [facility] Start: 1995 Sex Assigned At Not on file [facility] Start: 10-16-2023 Tobacco smoking status NHIS Smokes tobacco daily [facility] History of tobacco use Cigarette Smoker P [facility] Start: 10-16-2023 Tobacco use and exposure Smokeless tobacco non-user [facility] Start: 10-16-2023 End: 10-21-2023 Alcohol intake Ex-drinker (finding) [facility] Start: 1995 Sex Assigned At Female [facility] Start: 08-07-2023 Gender identity Identifies as female gender (finding) [facility] Start: 08-07-2023 Sexual orientation Heterosexual (finding) [facility] Goals Date Patient Goal Desired [...] of: ABIGAIL Chinchilla documented in this encounter [facility] 10-22-2023 Miscellaneous Notes Formattin g of this note might be different from the original. Please call us back to schedule an ultrasound next week. documented in this encounter [facility] [employer] [facility] 10-22-2023 Telephone encount er Note Please call us back to schedule an ultrasound next week. [facility] 10-22-2023 History of Presen t illness [...] increase p.o. hydration. documented in this encounter [facility] 10-16-2023 History of Presen t illness Narrative Headache/epigastric pain/blurry vision/swelling? No Cramping/contractions? No Abnormal vaginal discharge? No Spotting/vaginal bleeding? No Loss of fluid like your water may have broken? No Cats in the home? No Do you change the litter box? N/A Flu vaccine? No Genetic testing done this here or other office? Yes Have you been seen here at [facility] in a previous ? No Recent ER visits or hospitalizations? No Bring blood sugar log or meter with you today? (Please bring them with you for every visit at [facility]) N/A Traveled outside the country in the past 6 month No Any concerns that you would like me to mention to the provider today? No [facility] Maternal- Medicine Consult Note Reason For Consult: [...] Yes Not In System Ref Prov vit no.199-durb-fruoe acid ( VITAMIN) 27 mg iron- 800 [...] continue with routine care in your office [facility], the CDC, and other organizations representing maternal and public health professionals recommend that , , and lactating people and those considering receive the COVID-19 vaccination. Vaccination is the best method to reduce maternal and complications of SARS-CoV-2 infection. This document was created with [employer] technology. Though I make every effort to review the dictation as it is transcribed, on occasion the spoken word can be misinterpreted by the technology leading to inappropriate words, phrases, or sentences. This note is addressed to the requesting provider as a consultation for clinical guidance. Specific medical abbreviations are occasionally used and those are generally approved by the [place]?Board of?Obstetrics and?Gynecology?as well as?James s abbreviations. The above plan of care was based solely on the diagnoses for which a consultation was requested. ?More frequent testing may be indicated based on her other medical/obstetrical conditions. The management of other or medical conditions is beyond the scope of requested consultation and will continue to be followed by the primary telehealth director or primary care provider. Thank you for allowing me to participate in her care. Please contact me if you have any concerns. documented in this encounter [employer] 03-16-2022 Note PROCEDURE: XR SHOULD ER RT 2V or > HISTORY: Impingement syndrome of right shoulder region ; acute right shoulder pain, no known injury COMPARISON: None. FINDINGS: BONES:No fracture, acute abnormality, or significant arthropathy. SOFT TISSUES:No visible soft tissue swelling. EFFUSION:None visible. OTHER: Negative. IMPRESSION: 1. Normal examination. Electronically authenticated by: GENI CABRAL Date: 2022-03-16 18:16 [facility] Evaluation note Diagnosis High-risk in second trimester- Primary History of oligohydramnios in prior , currently with other poor obstetric history 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 20 weeks gestation of [facility] History of oligohydramnios in prior , currently - Primary with other poor obstetric history [facility] Diagnosis Second trimester state, [...] [place] SystemInstructionsNot on filedocumented in this [facility] Summary Purpose Family History No [...] Haseeb Nice MD [address], [address] [place] [id number] [facility]aternal [facility] [address] [place] [address] Referral ID Status Reason Start Date Expiration Date V isits Requested Visits Authorized [id number] Pending Review 10/17/2023 10/16/2024 1 1 Additional Source Comments INFORMATION SOURCE (unrecogn ized section and content) DATE CREATED AUTHOR 01/31/2023 [facility] DATE CREATED AUTHOR AUTHOR'S ORGANIZ ATION 10/20/2023 [facility] DATE CREATED AUTHOR AUTHOR'S ORGANIZ ATION 11/24/2023 [facility] DATE CREATED AUTHOR AUTHOR'S ORGANIZ ATION 01/01/2024 [facility] EPIC Reason for Visit [...] BE BASED ON THE PRIMARY CLINICAL RECORDS. [facility] [employer] [facility]. provides no warranty or guarantee of the accuracy or completeness of information in this document.
[2024-01-07 09:19] LABS: Basophils Percent Auto 0.1 % (0.2-2.0); Eosinophils Percent Auto 0.3 % (0.9-7.0); Hematocrit 31.2 % (36.0-48.0); Hemoglobin 10.1 g/dL (12.0-16.0); Immature Granulocytes Abs Auto 0.04 10^3/uL (0.00-0.03); Immature Granulocytes Pct Auto 0.6 % (0.0-0.5); Lymphocytes Percent Auto 13.6 % (20.5-60.0); Mean Corpuscular HGB Conc 32.4 g/dL (29.9-35.2); Mean Corpuscular Hemoglobin 31.3 pg (26.7-34.0); Mean Corpuscular Volume 96.6 fL (81.0-99.0); Mean Platelet Volume 11.1 fL (9.5-13.5); Monocytes Absolute Auto 0.4 10^3/uL (0.3-0.8); Monocytes Percent Auto 5.2 % (1.7-12.0); Neutrophils Absolute Auto 5.8 10^3/uL (1.4-6.5); Neutrophils Percent Auto 80.2 % (43.0-75.0); Platelet Count 136 10^3/uL (150-450); Red Blood Count 3.23 10^6/uL (4.20-5.40); Red Cell Distribution Width 13.2 % (11.0-15.0); White Blood Count 7.3 10^3/uL (4.0-11.0)
[2024-01-07 10:35] LABS: Glucose 1 Hour 163 mg/dL (<130)
== END 2024-01-07 08:00 | disposition home or self-care (01) ==
PROVIDERS: Visit Provider Physician Assistant
DX: Z13.1 Encounter for screening for diabetes mellitus (principal)
CPT/HCPCS: 36415; 82950; 85025

== ENCOUNTER 2024-01-13 07:16 | Outpatient (OUT) | payer OTHER, SELFPAY ==
--- OUTSIDE RECORDS SUMMARY | 2024-01-13 07:19 | XMS_ITS | CCD ---
Author Organization [facility] Care Team Providers Care Manager Baby Name Role Phone RUSSELL, DR DEBBIE Mohan [...] BRIA Attending Unavailable ROSANA GALO Attending Unavailable RIAJROSANA SCHAFFER Attending Unavailable YOJANA, BRIA Attending Unavailable [...] for nausea or vomiting. 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; Translations: [OTH [facility] CURRENT DRUG THERAPY] Onset: 01-23-2023 Episodic Other [...] UA Negative Negative - 4(70) +++ mg/dL [facility] Blood, UA Negative Negative - 50 Felice/mcL [facility] Clarity, UA Clear [facility]wa [facility] Color, UA Yellow [facility] Healthcar [facility] Glucose, UA Negative Negative - 1999(110) ++++ mg/dL [facility] Interpretation and review of laboratory results Normal [facility] Ketones, UA Negative Negative - 160(16) ++++ mg/dL [facility] Leukocytes, UA Negative Negative - 500+++ Regina/mcL [facility] Nitrite, UA Negative Negative - Positive [facility] pH, UA 5.5 5 - 9 [facility] Protein, UA Negative Negative - 1999(20) ++++ mg/dL [facility] Spec Grav, UA 1.030 1 - 1.03 [facility] Urobilinogen, UA 0.2 0.2 - 12 mg/dL [facility] PREG QUANT HCGon 01-28-2023 HCG QUANT 17 mIU/mL Normal [facility] Comment on above: Performed By: #### P REGQNT #### [facility] [address] [address] [address] Anna Romero HCG RANGE SEE BELOW Normal [facility] Comment on above: Result Comment: 5-50 0.2-1 WEEK 50-500 1-2 WEEKS 100-5,000 2-3 WEEKS 500-10,000 3-4 WEEKS 1,000-50,000 4-5 WEEKS 10,000-100,000 5-6 WEEKS 15,000-200,000 6-8 WEEKS 10,000-100,000 2-3 MONTHS Performed By: #### P REGQNT #### [facility] [address] [place] [address] Dr. Anna Romero PREG QUANT HCGon 01-23-2023 HCG QUANT 441 mIU/mL Normal [facility] Comment on above: Performed By: #### S SCRN, GRASTCX #### [facility] [address] [place] [address] Dr. Anna Romero HCG RANGE SEE BELOW Normal [facility] Comment on above: Result Comment: 5-50 0.2-1 WEEK 50-500 1-2 WEEKS 100-5,000 2-3 WEEKS 500-10,000 3-4 WEEKS 1,000-50,000 4-5 WEEKS 10,000-100,000 5-6 WEEKS 15,000-200,000 6-8 WEEKS 10,000-100,000 2-3 MONTHS Performed By: #### S SCRN, GRASTCX #### [facility] [address] [place] [address] Dr. Anna Romero ABO AND RH TYPEon 01-21-2023 ABO and Rh group Nom (Bld) ABO Rh Typing A Rh Positive Normal [facility] Comment on above: Performed By: #### S SCRN, GRASTCX #### [facility] [address] [place] [address] Dr. Anna Romero ER URINE PROFILEon 3 Bilirubin Ql (U) Negative Normal NEGATIVE [facility] Comment on above: Performed By: #### JD URIASRO #### [facility] [address] [place] [address] Dr. Anna Romero Clarity (U) CLEAR Normal CLEAR [facility] Comment on above: Performed By: #### Yared BARBOSA UMICRO #### [facility] [address] [place] [address] Dr. Anna Romero Color (U) YELLOW Normal YELLOW [facility] Comment on above: Performed By: #### FANG URIASICRO #### [facility] [address] [place] [address] Dr. Anna BAER A micrscopic examination will be performed if indicated. Normal [facility] Comment on above: Performed By: #### FANG URIASICRO #### [facility] [address] [place] [address] Dr. Anna Romero Glucose Ql (U) Negative Normal NEGATIVE [facility] Comment on above: Performed By: #### Yared BARBOSA UMICRO #### [facility] [address] [place] [address] Dr. Anna Romero Hemoglobin Ql (U) LARGE Abnormal NEGATIVE [facility] Comment on above: Performed By: #### Yared BARBOSA UMICRO #### [facility] [address] [place] [address] Dr. Anna Romero Ketones Ql (U) Negative Normal NEGATIVE [facility] Comment on above: Performed By: #### Yared BARBOSA UMICRO #### [facility] [address] [place] [address] Dr. Anna Romero LEUKOCYTES Negative Normal NEGATIVE [facility] Comment on above: Performed By: #### JD URIASRO #### [facility] [address] [place] [address] Dr. Anna Romero Nitrite Ql (U) Negative Normal NEGATIVE [facility] Comment on above: Performed By: #### FANG URIASICRO #### [facility] [address] [place] [address] Dr. Anna Romero pH (U) 5.5 [pH] Normal 5-9 [facility] Comment on above: Performed By: #### FANG URIASICRO #### [facility] [address] [place] [address] Dr. Anna Romero SPEC GRAVITY >=1.030 Abnormal 1.005-<=1.025 [facility] Comment on above: Performed By: #### JD URIASRO #### [facility] [address] [place] [address] Dr. Anna Romero UA PROTEIN TRACE Normal NEGATIVE/ TRACE [facility] Comment on above: Performed By: #### JD URIASRO #### [facility] [address] [place] [address] Dr. Anna Romero UR MICRO IND INDICATED Normal [facility] Comment on above: Performed By: #### JD URIASRO #### [facility] [address] [place] [address] Dr. Anna Romero Urobilinogen Qn (U) 0.2 {Joel'U}/dL Normal 0.2 - 1. 0 [facility] Comment on above: Performed By: #### JD URIASRO #### [facility] [address] [place] [address] Dr. Anna Romero PREG QUANT HCGon 01-21-2023 HCG QUANT 1693 mIU/mL Normal [facility] Comment on above: Performed By: #### S DAT AGUIRRETCX #### [facility] [address] [place] [address] Dr. Anna Romero HCG RANGE SEE BELOW Normal [facility] Comment on above: Result Comment: 5-50 0.2-1 WEEK 50-500 1-2 WEEKS 100-5,000 2-3 WEEKS 500-10,000 3-4 WEEKS 1,000-50,000 4-5 WEEKS 10,000-100,000 5-6 WEEKS 15,000-200,000 6-8 WEEKS 10,000-100,000 2-3 MONTHS Performed By: #### S CARLA GRASTCX #### [facility] [address] [place] [address] Dr. Anna Romero URINE MICROSCOPIC ONLYon BACTERIA TRACE Abnormal NONE SEEN [facility] Comment on above: Performed By: #### JD URIASRO #### [facility] [address] [place] [address] Dr. Anna Romero Bacteria identified Cx Nom (U) NOT INDICATED Normal [facility] Comment on above: Performed By: #### JD URIASRO #### [facility] [address] [place] [address] Dr. Anna Romero CAST NONE SEEN Normal NONE SEEN [facility] Comment on above: Performed By: #### Yared BARBOSA UMICRO #### [facility] [address] [place] [address] Dr. Anna Romero Crystals LM Nom (Urine sed) NONE SEEN Normal NONE SEEN [facility] Comment on above: Performed By: #### Yared BARBOSA UMICRO #### [facility] [address] [place] [address] Dr. Anna Romero Epithelial cells LM Ql (Urine sed) RARE Normal NONE SEEN /RARE [facility] Comment on above: Performed By: #### Yared BARBOSA UMICRO #### [facility] [address] [place] [address] Dr. Anna Romero MUCOUS TRACE Abnormal NONE SEEN [facility] Comment on above: Performed By: #### Yared BARBOSA UMICRO #### [facility] [address] [place] [address] Dr. Anna Romero RBC 2-5 Abnormal 0-2 [facility] Comment on above: Performed By: #### Yared BARBOSA UMICRO #### [facility] [address] [place] [address] Dr. Anna Romero WBC 0-2 Abnormal NONE SEEN [facility] Comment on above: Performed By: #### Yared BARBOSA UMICRO #### [facility] [address] [place] [address] Dr. Anna Romero US PREG TVon 01-21-2023 [...] JEAN BAPTISTE Date: 2023-01-21 16:54 Normal [facility] ER URINE PROFILEon 3 Bilirubin Ql (U) Negative Normal NEGATIVE [facility] Comment on above: Performed By: #### E RUR #### [facility] [address] [place] [address] Dr. Anna Romero Clarity (U) CLEAR Normal CLEAR [facility] Comment on above: Performed By: #### E RUR #### [facility] [address] [place] [address] Dr. Anna Romero Color (U) YELLOW Normal YELLOW [facility] Comment on above: Performed By: #### E RUR #### [facility] [address] [place] [address] Dr. Anna Romero ERUAHD A micrscopic examination will be performed if indicated. Normal [facility] Comment on above: Performed By: #### E RUR #### [facility] [address] [place] [address] Dr. Anna Romero Glucose Ql (U) Negative Normal NEGATIVE [facility] Comment on above: Performed By: #### E RUR #### [facility] [address] [place] [address] Dr. Anna Romero Hemoglobin Ql (U) Negative Normal NEGATIVE [facility] Comment on above: Performed By: #### E RUR #### [facility] [address] [place] [address] Dr. Anna Romero Ketones Ql (U) Negative Normal NEGATIVE [facility] Comment on above: Performed By: #### E RUR #### [facility] [address] [place] [address] Dr. Anna Romero LEUKOCYTES Negative Normal NEGATIVE [facility] Comment on above: Performed By: #### E RUR #### [facility] [address] [place] [address] Dr. Anna Romero Nitrite Ql (U) Negative Normal NEGATIVE [facility] Comment on above: Performed By: #### E RUR #### [facility] [address] [place] [address] Dr. Anna Romero pH (U) 6.5 [pH] Normal 5-9 [facility] Comment on above: Performed By: #### E RUR #### [facility] [address] [place] [address] Dr. Anna Romero SPEC GRAVITY 1.025 Normal 1.005-<=1.025 [facility] Comment on above: Performed By: #### E RUR #### [facility] [address] [place] [address] Dr. Anna Romero UA PROTEIN TRACE Normal NEGATIVE/ TRACE [facility] Comment on above: Performed By: #### E RUR #### [facility] [address] [place] [address] Dr. Anna Romero UR MICRO IND NOT INDICATED Normal [facility] Comment on above: Performed By: #### E RUR #### [facility] [address] [place] [address] Dr. Anna Romero Urobilinogen Qn (U) 0.2 {Joel'U}/dL Normal 0.2 - 1. 0 [facility] Comment on above: Performed By: #### E RUR #### [facility] [address] [place] [address] Dr. Anna Romero GROUP A STREP CULTUREon 12-13 S. pyogenes Ag Ql (Unsp spec) Culture Observations: NEGATIVE FOR GROUP A STREPTOCOCCUS. Normal [facility] Comment on above: Performed By: #### S CARLA GRASTCX #### [facility] [address] [place] [address] Dr. Anna Romero STREPT SCREENon 01-08-2023 STREP SCREEN A Negative Normal NEGATIVE [facility] Comment on above: Performed By: #### S CARLA, GRASTCX #### [facility] [address] [place] [address] Dr. Anna Romero SYMPTOMATIC COVID-19 ANTIGEN on 01-08-2023 EUA Statement SEE BELOW Normal [facility] Comment on above: Result Comment: This [...] Performed By: #### S CARLA GRASTCX #### [facility] [address] [place] [address] Dr. Anna Romero SARS-CoV-2 (COVID-19) RNA DAVY+probe Ql (Unsp spec) Positive Abnormal NEGATIVE [facility] Comment on above: Performed By: #### S CARLA GRASTCX #### [facility] [address] [place] [address] Dr. Anna Romero US PREG TVon 05-31-2022 [...] GENI CABRAL Date: 2022-05-31 19:46 Normal [facility] BILIRUBIN TOTALon 03-16-2022 Bilirubin [Mass/Vol] 0.3 mg/dL Normal 0.2-1.0 [facility] Comment on above: Performed By: #### T DALE #### [facility] [address] [place] [address] Dr. Anna Romero CBC AUTO DIFFon 03-16-2022 BASO # 0.0 103/ul Normal 0.0-0.1 [facility] Comment on above: Performed By: #### C BC #### [facility] [address] [place] [address] Dr. Anna Romero Basophils/100 WBC (Bld) 0.4 % Normal 0.2-2.0 [facility] Comment on above: Performed By: #### C BC #### [facility] [address] [place] [address] Dr. Anna Romero EO # 0.0 103/ul Normal 0.0-0.7 [facility] Comment on above: Performed By: #### C BC #### [facility] [address] [place] [address] Dr. Anna Romero Eosinophils/100 WBC (Bld) 0.2 % Critically low 0.9-7.0 [facility] Comment on above: Performed By: #### C BC #### [facility] [address] [place] [address] Dr. Anna Romero Erythrocyte distribution width (RBC) [Ratio] 12.8 % Normal 11.0-15.0 [facility] Comment on above: Performed By: #### C BC #### [facility] [address] [place] [address] Dr. Anna Romero Hematocrit (Bld) [Volume fraction] 39.2 % Normal 36.0-48.0 [facility] Comment on above: Performed By: #### C BC #### [facility] [address] [place] [address] Dr. Anna Romero Hemoglobin (Bld) [Mass/Vol] 12.9 g/dL Normal 12.0-16.0 [facility] Comment on above: Performed By: #### C BC #### [facility] [address] [place] [address] Dr. Anna Romero IG # 0.01 10e3/ul Normal 0.00-0.03 [facility] Comment on above: Performed By: #### C BC #### [facility] [address] [place] [address] Dr. Anna Romero IG % 0.2 % Normal 0.0-0.5 [facility] Comment on above: Performed By: #### C BC #### [facility] [address] [place] [address] Dr. Anna Romero LYMPH # 1.6 103/ul Normal 1.2-3.8 [facility] Comment on above: Performed By: #### C BC #### [facility] [address] [place] [address] Dr. Anna Romero Lymphocytes/100 WBC (Bld) 29.8 % Normal 20.5-60.0 [facility] Comment on above: Performed By: #### C BC #### [facility] [address] [place] [address] Dr. Anna Romero MANUAL DIFF REQ NO Normal [facility] Comment on above: Performed By: #### C BC #### [facility] [address] [place] [address] Dr. Anna Romero MCH (RBC) [Entitic mass] 31.8 pg Normal 26.7-34.0 [facility] Comment on above: Performed By: #### C BC #### [facility] [address] [address] [address] Anna Romero MCHC (RBC) [Mass/Vol] 32.9 g/dL Normal 29.9-35.2 [facility] Comment on above: Performed By: #### C BC #### [facility] [address] [place] [address] Dr. Anna Romero MCV (RBC) [Entitic vol] 96.6 fL Normal 81.0-99.0 [facility] Comment on above: Performed By: #### C BC #### [facility] [address] [place] [address] Dr. Anna Romero MONO # 0.4 103/ul Normal 0.3-0.8 [facility] Comment on above: Performed By: #### C BC #### [facility] [address] [place] [address] Dr. Anna Romero Monocytes/100 WBC (Bld) 7.2 % Normal 1.7-12.0 [facility] Comment on above: Performed By: #### C BC #### [facility] [address] [place] [address] Dr. Anna Romero NEUT # 3.3 103/ul Normal 1.4-6.5 [facility] Comment on above: Performed By: #### C BC #### [facility] [address] [place] [address] Dr. Anna Romero Neutrophils/100 WBC (Bld) 62.2 % Normal 43.0-75.0 [facility] Comment on above: Performed By: #### C BC #### [facility] [address] [place] [address] Dr. Anna Romero Platelet mean volume (Bld) [Entitic vol] 10.0 fL Normal 9.5-13.5 [facility] Comment on above: Performed By: #### C BC #### [facility] [address] [place] [address] Dr. Anna Romero PLT 153 103/ul Normal 150-450 [facility] Comment on above: Performed By: #### C BC #### [facility] [address] [place] [address] Dr. Anna Romero RBC 4.06 106/ul Critically low 4.20-5.40 [facility] Comment on above: Performed By: #### C BC #### [facility] [address] [place] [address] Dr. Anna Romero WBC 5.3 103/ul Normal 4.0-11.0 [facility] Comment on above: Performed By: #### C BC #### [facility] [address] [place] [address] Dr. Anna Romero FREE T3on 03-16-2022 FREE T3 3.18 pg/mlL Normal 2.18-3.98 [facility] Comment on above: Performed By: #### S CARLA GRASTCX #### [facility] [address] [place] [address] Dr. Anna Romero FREE T4on 03-16-2022 Free T4 [Mass/Vol] 1.08 ng/dL Normal 0.76-1.46 [facility] Comment on above: Performed By: #### F T4 #### [facility] [address] [place] [address] Dr. Anna Romero PROF 14(COMP METB)on 022 Albumin [Mass/Vol] 4.3 g/dL Normal 3.4-5.0 [facility] Comment on above: Performed By: #### S CARLA GRASTCX #### [facility] [address] [place] [address] Dr. Anna Romero Albumin/Globulin [Mass ratio] 1.2 {ratio} Normal [facility] Comment on above: Performed By: #### S CARLA GRASTCX #### [facility] [address] [place] [address] Dr. Anna Romero ALP [Catalytic activity/Vol] 60 U/L Normal 46-116 [facility] Comment on above: Performed By: #### S CARLA GRASTCX #### [facility] [address] [place] [address] Dr. Anna Romero ALT [Catalytic activity/Vol] 25 U/L Normal 14-59 [facility] Comment on above: Performed By: #### S MOISEN GRASTCX #### [facility] [address] [address] [address] Anna Romero Anion gap [Moles/Vol] 13.8 mmol/L Normal [facility] Comment on above: Performed By: #### S SCRN, GRASTCX #### [facility] [address] [address] [address] Anna Romero AST [Catalytic activity/Vol] 21 U/L Normal 15-37 [facility] Comment on above: Performed By: #### S CARLA GRASTCX #### [facility] [address] [place] [address] Dr. Anna Romero Calcium [Mass/Vol] 9.4 mg/dL Normal 8.5-10.1 [facility] Comment on above: Performed By: #### S CARLA, GRASTCX #### [facility] [address] [place] [address] Dr. Anna Romero Chloride [Moles/Vol] 101 mmol/L Normal 98-107 [facility] Comment on above: Performed By: #### S CARLA, GRASTCX #### [facility] [address] [place] [address] Dr. Anna Romero CO2 [Moles/Vol] 26.8 mmol/L Normal 21.0-32.0 [facility] Comment on above: Performed By: #### S SCRN, GRASTCX #### [facility] [address] [place] [address] Dr. Anna Romero Creatinine [Mass/Vol] 0.87 mg/dL Normal 0.55-1.02 [facility] Comment on above: Performed By: #### S SCRN, GRASTCX #### [facility] [address] [place] [address] Dr. Anna Romero EGFR-AF MICRONESIAN >60 Normal >=60 [facility] Comment on above: Performed By: #### S SCRN, GRASTCX #### [facility] [address] [address] [address] Anna Romero EGFR-NON AF MICRONESIAN >60 Normal >=60 [facility] Comment on above: Performed By: #### S SCRN, GRASTCX #### [facility] [address] [address] [address] Anna Romero Globulin (S) [Mass/Vol] 3.5 g/dL Normal [facility] Comment on above: Performed By: #### S SCRN, GRASTCX #### [facility] [address] [place] [address] Dr. Anna Romero Glucose [Mass/Vol] 80 mg/dL Normal 74-106 [facility] Comment on above: Performed By: #### S SCRN, GRASTCX #### [facility] [address] [place] [address] Dr. Anna Romero Potassium [Moles/Vol] 3.6 mmol/L Normal 3.5-5.1 [facility] Comment on above: Performed By: #### S SCRN, GRASTCX #### [facility] [address] [place] [address] Dr. Anna Romero Protein [Mass/Vol] 7.8 g/dL Normal 6.4-8.2 [facility] Comment on above: Performed By: #### S SCRN, GRASTCX #### [facility] [address] [place] [address] Dr. Anna Romero Sodium [Moles/Vol] 138 mmol/L Normal 136-145 [facility] Comment on above: Performed By: #### S SCRN, GRASTCX #### [facility] [address] [place] [address] Dr. Anna Romero Urea nitrogen [Mass/Vol] 12.0 mg/dL Normal 7.0-18.0 [facility] Comment on above: Performed By: #### S SCRN, GRASTCX #### [facility] [address] [place] [address] Dr. Anna Romero Urea nitrogen/Creatinine [Mass ratio] 13.8 mg/mg Normal [facility] Comment on above: Performed By: #### S SCRN, GRASTCX #### [facility] [address] [address] [address] Anna Romero TSHon 03-16-2022 TSH 2.442 uIU/mL Normal 0.358-3.740 [facility] Comment on above: Performed By: #### S SCRN, GRASTCX #### [facility] [address] [place] [address] Dr. Anna Romero TSH RANGE SEE BELOW Normal [facility] Comment on above: Result Comment: <0.3 4 UIU/ml HYPERTHYROID 0.34-5.60 UIU/ml EUTHYROID >5.60 UIU/ml HYPOTHYROID Performed By: #### S SCRN, GRASTCX #### [facility] [address] [place] [address] Dr. Anna Romero Vital Signs Date Time Vital Sign Value Performing Clinician Faci lity 11-27-2023 14:46-0500 Body mass index (BMI) [Ratio] 25.66 kg/m2 Rosana HAYES Work Phone: [facility] 11-27-2023 14:46-0500 Body weight 72.12 kg Rosana HAYES Work Phone: [facility] 11-27-2023 14:46-0500 Diastolic blood pressure 60 mm[Hg] Rosana HAYES Work Phone: [facility] 11-27-2023 14:46-0500 Systolic blood pressure 102 mm[Hg] Rosana HAYES Work Phone: [facility] 10-16-2023 12:21-0500 Body height 170.2 cm Haseeb Nice MD Work Phone: [facility] 10-16-2023 12:21-0500 Body mass index (BMI) [Ratio] 22.55 kg/m2 Haseeb Nice MD Work Phone: [facility] 10-16-2023 12:21-0500 Body weight 65.32 kg Haseeb Nice MD Work Phone: [facility] 10-16-2023 12:21-0500 Diastolic blood pressure 66 mm[Hg] Haseeb Nice MD Work Phone: [facility] 10-16-2023 12:21-0500 Heart rate 79 /min Haseeb Nice MD Work Phone: [facility] 10-16-2023 12:21-0500 Systolic blood pressure 109 mm[Hg] Haseeb Nice MD Work Phone: [facility] Encounters Encounter Date Encounter Type Care Provider Facility Start: 12-31-2023 End: 12-31-2023 ambulatory ROSANA GALO Not Available Start: 12-16-2023 End: 12-16-2023 ambulatory BRIA YOJANA Not Available Start: 11-27-2023 End: 11-27-2023 ambulatory ROSANA GALO Not Available Start: 11-27-2023 End: 11-27-2023 Office outpatient visit 15 minutes Rosana HAYES Work Phone: [facility] Comment on above: Second trimester pre gnancy; with normal glucose tolerance test (GTT); Diabetes mellitus screening; History of miscarriage; History of oligohydramnios Start: 11-19-2023 End: 11-20-2023 ambulatory [facility] Start: 10-29-2023 End: 10-30-2023 ambulatory [facility] Start: 10-28-2023 End: 10-28-2023 ambulatory BRIA YOJANA Not Available Start: 10-22-2023 Documentation procedure Haseeb Nice MD Work Phone: [facility] Start: 10-22-2023 Telephone encounter Rachelle TREJO [facility] Start: 10-21-2023 Chart abstracting Aliya berger MD Work Phone: [facility] Start: 10-17-2023 Orders Only Robbi Rodriguez [facility] Comment on above: History of oligohydr amnios in prior , currently (Primary Dx) Start: 10-16-2023 End: 10-17-2023 ambulatory BRIA BALES [facility] Start: 10-16-2023 End: 10-16-2023 Office outpatient new 45 minutes Haseeb Nice MD Work Phone: [facility] Comment on above: High-risk in second trimester (Primary Dx); History of oligohydramnios in prior , currently ; 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; 20 weeks gestation of Start: 10-15-2023 Chart abstracting Scanning Pro vider External [facility] at [facility] Start: 10-08-2023 End: 10-08-2023 ambulatory BRIA [...] Td Vaccines (9 - Td or Tdap) [facility] Start: 10-17-2024 End: 10-17-2024 US MFM with or without consult US MFM with or without consult Imaging Routine History of oligohydramnios in prior , currently Expected: 10/17/2024 (Approximate), Expires: 10/17/2024 [facility] Work Phone: Comment on above: Expected: 10/17/2024 (Approximate), Expires: 10/17/2024 Start: 10-16-2024 Adult BMI Screening Adult BMI Screen ing [facility] Start: 10-16-2024 Tobacco Screening Tobacco Screening [facility] Start: 12-11-2023 End: 12-11-2023 Patient encounter procedure 12/11/2023 10:20 AM EST Routine [facility] [address] [place] [address] Bria Bales, DO [address] [place] [address] [facility] Start: 11-27-2023 End: 11-27-2024 CBC panel - Blood by Automated count CBC Lab Routine Diabetes mellitus screening Expected: 11/27/2023 (Approximate), Expires: 11/27/2024 [facility] Work Phone: Comment on above: Expected: 11/27/2023 (Approximate), Expires: 11/27/2024 Start: 11-27-2023 End: 11-27-2024 Measurement of glucose 1 hour after glucose challenge for glucose tolerance test Glucose tolerance, 1 hour Lab Routine Diabetes mellitus screening Expected: 11/27/2023 (Approximate), Expires: 11/27/2024 [facility] Comment on above: Expected: 11/27/2023 (Approximate), Expires: 11/27/2024 Start: 11-27-2023 End: 11-27-2024 US biophysical profile w non stress test US biophysical profile w non stress test Imaging Routine History of miscarriage History of oligohydramnios Expected: 11/27/2023 (Approximate), Expires: 11/27/2024 [facility] Comment on above: Expected: 11/27/2023 (Approximate), Expires: 11/27/2024 Start: 11-27-2023 End: 11-27-2024 US for US OB SCAN FOR GROWTH Imaging Routine History of miscarriage History of oligohydramnios Expected: 11/27/2023 (Approximate), Expires: 11/27/2024 [facility] Comment on above: Expected: 11/27/2023 (Approximate), Expires: 11/27/2024 Start: 11-19-2023 End: 11-19-2023 Patient encounter procedure 11/19/2023 9:15 AM EST Appointment [facility] - Ultrasound [address] [place] [address] [facility] - Ultrasound Start: 10-29-2023 End: 10-29-2023 Patient encounter procedure 10/29/2023 9:15 AM EST Appointment [facility] - Ultrasound [address] [place] [address] [facility] - Ultrasound Start: 10-16-2023 End: 10-16-2023 Patient encounter procedure 10/16/2023 1:00 PM EST Office Visit [facility] at [facility] [address] [place] [address] Haseeb Nice MD [address], [address] [place] [address] [facility] Start: 10-16-2023 Subsequent hospital visit by physician 10/16/2023 11:30 AM EST Hospital Encounter [facility] [address] [place] [address] [facility] Start: 06-14-2023 Influenza vaccination Influenza Vacc ine [facility] Start: 2014 Screening for malignant neoplasm of cervix Pap Smear [facility] Start: 2012 DTaP,Tdap and Td Vaccines (1 - Tdap) DTaP,Tdap and Td Vaccines (1 - Tdap) [facility] Start: 2011 Adult BMI Screening Adult BMI Screen ing [facility] Start: 2005 Depression Screening Depression Scre ening [facility] Start: 2005 Tobacco Screening Tobacco Screening [facility] Start: 1993 Tobacco Counseling Tobacco Counselin g [facility] Payers Date Payer Category Payer Medicaid [id number] 1993 Unknown [id number] 2.16.84 0.1.885964.3.579.2.593 1993 Unknown [id number] 2.16.84 0.1.748429.3.579.2.593 1993 Unknown [id number] 2.16.84 0.1.597296.3.579.2.593 1993 Unknown [id number] 2.16.84 0.1.701366.3.579.2.593 1993 Unknown [id number] 2.16.84 0.1.336728.3.579.2.593 1993 Unknown [id number] 2.16.84 0.1.103605.3.579.2.593 1993 Unknown [id number] 2.16.84 0.1.351978.3.579.2.593 1993 Unknown [id number] 2.16.84 0.1.614799.3.579.2.593 1993 Unknown [id number] 2.16.84 0.1.024463.3.579.2.593 1993 Unknown [id number] 2.16.84 0.1.555554.3.579.2.593 1993 Unknown [id number] 2.16.84 0.1.061792.3.579.2.593 1993 Unknown [id number] 2.16.84 0.1.596505.3.579.2.593 1993 Unknown [id number] 2.16.84 0.1.015415.3.579.2.1286 1993 Unknown [id number] 2.16.84 0.1.554634.3.579.2.1286 1993 Unknown [id number] 2.16.8 40.1.263762.3.579.2.1286 1993 Unknown [id number] 2.16.84 0.1.470481.3.579.2.1286 1993 Unknown [id number] 2.16.84 0.1.390122.3.579.2.1259 1993 Unknown [id number] 2.16.84 0.1.929423.3.579.2.1259 1993 Unknown [id number] 2.16.84 0.1.660817.3.579.2.1259 1993 Unknown [id number] 2.16.84 0.1.096239.3.579.2.1259 1993 Unknown [id number] 2.16.840 .1.735578.3.579.2.1259 1993 Unknown [id number] 2.16.840 .1.214740.3.579.2.1259 1959 Self-pay [id number] 1959 Unknown [id number] 1959 Unknown [id number] Social History Date Type Detail Facility Start: 10-15-2023 Tobacco smoking status CAIS Tobacco smoking consumption unknown [facility] Start: 03-23-2019 End: 10-16-2023 History of Social function [facility] Start: 03-23-2019 End: 10-16-2023 Housing Instability [facility] Housing Instability Unknown [facility] Start: 06-10-2023 [facility] Start: 1995 Sex Assigned At Not on file [facility] Start: 10-16-2023 Tobacco smoking status NHIS Smokes tobacco daily [facility] History of tobacco use Cigarette Smoker [facility] Start: 10-16-2023 Tobacco use and exposure Smokeless tobacco non-user [facility] Start: 10-16-2023 End: 10-21-2023 Alcohol intake Ex-drinker (finding) [facility] Start: 1995 Sex Assigned At Female [facility] Start: 08-07-2023 Gender identity Identifies as female gender (finding) [facility] Start: 08-07-2023 Sexual orientation Heterosexual (finding) [facility] Goals Date Patient Goal Desired [...] of: ABIGAIL Chinchilla documented in this encounter [facility] 10-22-2023 Miscellaneous Notes Formattin g of this note might be different from the original. Please call us back to schedule an ultrasound next week. documented in this encounter [facility] [employer] [facility] 10-22-2023 Telephone encount er Note Please call us back to schedule an ultrasound next week. [facility] 10-22-2023 History of Presen t illness Narrative [...] increase p.o. hydration. documented in this encounter [facility] 10-16-2023 History of Presen t illness Narrative Headache/epigastric pain/blurry vision/swelling? No Cramping/contractions? No Abnormal vaginal discharge? No Spotting/vaginal bleeding? No Loss of fluid like your water may have broken? No Cats in the home? No Do you change the litter box? N/A Flu vaccine? No Genetic testing done this here or other office? Yes Have you been seen here at [facility] in a previous ? No Recent ER visits or hospitalizations? No Bring blood sugar log or meter with you today? (Please bring them with you for every visit at [facility]) N/A Traveled outside the country in the past 6 month No Any concerns that you would like me to mention to the provider today? No [facility] Maternal- Medicine Consult Note Reason For Consult: [...] Yes Not In System Ref Prov vit no.786-[id number] acid ( VITAMIN) 27 mg iron- 800 [...] routine care in your office [facility], the CDC, and other organizations representing maternal and public health professionals recommend that , , and lactating people and those considering receive the COVID-19 vaccination. Vaccination is the best method to reduce maternal and complications of SARS-CoV-2 infection. This document was created with [employer] technology. Though I make every effort to review the dictation as it is transcribed, on occasion the spoken word can be misinterpreted by the technology leading to inappropriate words, phrases, or sentences. This note is addressed to the requesting provider as a consultation for clinical guidance. Specific medical abbreviations are occasionally used and those are generally approved by the [place]?Board of?Obstetrics and?Gynecology?as well as?James s abbreviations. The above plan of care was based solely on the diagnoses for which a consultation was requested. ?More frequent testing may be indicated based on her other medical/obstetrical conditions. The management of other or medical conditions is beyond the scope of requested consultation and will continue to be followed by the primary stripper color or primary care provider. Thank you for allowing me to participate in her care. Please contact me if you have any concerns. documented in this encounter [employer] 03-16-2022 Note PROCEDURE: XR SHOULD ER RT 2V or > HISTORY: Impingement syndrome of right shoulder region ; acute right shoulder pain, no known injury COMPARISON: None. FINDINGS: BONES:No fracture, acute abnormality, or significant arthropathy. SOFT TISSUES:No visible soft tissue swelling. EFFUSION:None visible. OTHER: Negative. IMPRESSION: 1. Normal examination. Electronically authenticated by: GENI CABRAL Date: 2022-03-16 18:16 [facility] Evaluation note Diagnosis High-risk in second trimester- Primary History of oligohydramnios in prior , currently with other poor obstetric history 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 20 weeks gestation of [facility] Diagnosis History of oligohydramnios in prior , currently - Primary with other poor obstetric history [facility] Diagnosis Second trimester state, incidental with normal glucose tolerance test (GTT) Diabetes mellitus screening Screening for diabetes mellitus History of miscarriage Personal history of other genital system and obstetric disorders History of oligohydramnios documented in this encounter [facility] filedocumented [facility]ructionsNot on filedocumented in this encounterProPomerene [facility] SystemInstructionsNot on filedocumented in this encounterProPomerene Hospital SystemInstructionsNot on filedocumented in this encounter[facility] Summary Purpose Family History No [...] Haseeb Nice MD [address], [address] [place] [address] [facility] Maternal Med [address] [place] [address] Referral ID Status Reason Start Date Expiration Date V isits Requested Visits Authorized [id number] Pending Review 10/17/2023 10/16/2024 1 1 Additional Source Comments INFORMATION SOURCE (unrecogn ized section and content) DATE CREATED AUTHOR 01/31/2023 [facility] DATE CREATED AUTHOR AUTHOR'S ORGANIZ ATION 10/20/2023 [facility] DATE CREATED AUTHOR AUTHOR'S ORGANIZ ATION 11/24/2023 [facility] DATE CREATED AUTHOR AUTHOR'S ORGANIZ ATION 01/01/2024 [facility] EPIC Reason for [...] BE BASED ON THE PRIMARY CLINICAL RECORDS. [facility] [employer] [facility]. provides no warranty or guarantee of the accuracy or completeness of information in this document.
--- NOTE | 2024-01-13 14:04 | US_ITS ---
[address] [address] Patient Name: JERAMY SWEENEY MRN: [id number] date: 1995 Sex: F Assigned Patient Location: [facility] Current Patient Location: [facility] Accession/Order Number: [id number] Exam Date: 01/13/2024 14:07 Report Date: 01/13/2024 14:52 At the request of: BRIA DIAL Procedure: US OB BPP w non-stress EXAMINATION: US OB BPP w non-stress HISTORY: HISTORY OF MISCARRIAGE Z87.59 COMPARISON: Ultrasound OB biophysical 01/06/2024 TECHNIQUE: Ultrasound biophysical profile was performed in the radiology department. BREATHING MOVEMENTS: 2.0 GROSS BODY MOVEMENTS: 2.0 TONE: 2.0 QUALITATIVE AMNIOTIC FLUID VOLUME: 2.0 PRESENTATION: CEPHALIC HEART RATE: 139.9 bpm bpm. AMNIOTIC FLUID VOLUME: 23.4 cm GESTATIONAL AGE: 33 weeks 0 days CONCLUSION: 1. Total biophysical profile score 8.0. 2. Normal amniotic fluid volume, but approaching upper limits of normal. Electronically authenticated by: GENI CABRAL Date: 01/13/2024 14:52
[2024-01-13 14:41] VITALS: BP 100/58; PULSE 95
== END 2024-01-13 15:05 | disposition home or self-care (01) ==
LOC: US 07:16 → FBC 14:05
PROVIDERS: Visit Provider Obstetrics & Gynecology
DX: Z87.59 Personal history of other complications of pregnancy, childbirth and the puerperium (principal); Z3A.33 33 weeks gestation of pregnancy
CPT/HCPCS: 76818

== ENCOUNTER 2024-01-16 07:07 | Outpatient (OUT) | payer OTHER, SELFPAY ==
--- OUTSIDE RECORDS SUMMARY | 2024-01-09 07:15 | XMS_ITS | CCD ---
Author Organization [facility] Care Team Providers Care Manager Strategic Partnerships Name Role Phone RUSSELL, DR DEBBIE Mohan [...] DR FRASER Admitting Unavailable MARCH ., DR AMRIS Vali Primary Care Unavailable YOJANA ., DR FRASER [...] for nausea or vomiting. 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] Onset: 01-23-2023 Episodic Other [...] [facility] Clarity, UA Clear [facility] re Color, UA Yellow [facility] Glucose, UA Negative Negative [...] Center pH, UA 5.5 5 - 9 [facility] Protein, UA Negative Negative - 1999(20) ++++ mg/dL [facility] Spec Grav, UA 1.030 1 - 1.03 [facility] Urobilinogen, UA 0.2 0.2 - 12 mg/dL [facility] PREG QUANT HCGon 01-28-2023 HCG QUANT 17 mIU/mL Normal [facility] Comment on above: Performed By: #### P REGQNT #### [facility] [address] [address] [address] Anna Romero HCG RANGE SEE BELOW Normal [facility] Comment on above: Result Comment: 5-50 0.2-1 WEEK 50-500 1-2 WEEKS 100-5,000 2-3 WEEKS 500-10,000 3-4 WEEKS 1,000-50,000 4-5 WEEKS 10,000-100,000 5-6 WEEKS 15,000-200,000 6-8 WEEKS 10,000-100,000 2-3 MONTHS Performed By: #### P REGQNT #### [facility] [address] [place] [address] Dr. Anna Romero PREG QUANT HCGon 01-23-2023 HCG QUANT 441 mIU/mL Normal [facility] Comment on above: Performed By: #### S SCRN, GRASTCX #### [facility] [address] [place] [address] Dr. Anna Romero HCG RANGE SEE BELOW Normal [facility] Comment on above: Result Comment: 5-50 0.2-1 WEEK 50-500 1-2 WEEKS 100-5,000 2-3 WEEKS 500-10,000 3-4 WEEKS 1,000-50,000 4-5 WEEKS 10,000-100,000 5-6 WEEKS 15,000-200,000 6-8 WEEKS 10,000-100,000 2-3 MONTHS Performed By: #### S SCRN, GRASTCX #### [facility] [address] [place] [address] Dr. Anna Romero ABO AND RH TYPEon 01-21-2023 ABO and Rh group Nom (Bld) ABO Rh Typing A Rh Positive Normal [facility] Comment on above: Performed By: #### S SCRN, GRASTCX #### [facility] [address] [place] [address] Dr. Anna Romero ER URINE PROFILEon 3 Bilirubin Ql (U) Negative Normal NEGATIVE The [facility] Comment on above: Performed By: #### JD URIASRO #### [facility] [address] [place] [address] Dr. Anna Romero Clarity (U) CLEAR Normal CLEAR [facility] Comment on above: Performed By: #### Yared BARBOSA UMICRO #### [facility] [address] [place] [address] Dr. Anna Romero Color (U) YELLOW Normal YELLOW [facility] Comment on above: Performed By: #### FANG URIASICRO #### [facility] [address] [place] [address] Dr. Anna BAER A micrscopic examination will be performed if indicated. Normal [facility] Comment on above: Performed By: #### FANG URIASICRO #### [facility] [address] [place] [address] Dr. Anna Romero Glucose Ql (U) Negative Normal NEGATIVE The [facility] Comment on above: Performed By: #### Yared BARBOSA UMICRO #### [facility] [address] [place] [address] Dr. Anna Romero Hemoglobin Ql (U) LARGE Abnormal NEGATIVE [facility] Comment on above: Performed By: #### Yared BARBOSA UMICRO #### [facility] [address] [place] [address] Dr. Anna Romero Ketones Ql (U) Negative Normal NEGATIVE [facility] Comment on above: Performed By: #### Yared BARBOSA UMICRO #### [facility] [address] [place] [address] Dr. Anna Romero LEUKOCYTES Negative Normal NEGATIVE [facility] Comment on above: Performed By: #### JD URIASRO #### [facility] [address] [place] [address] Dr. Anna Romero Nitrite Ql (U) Negative Normal NEGATIVE [facility] Comment on above: Performed By: #### FANG URIASICRO #### [facility] [address] [place] [address] Dr. Anna Romero pH (U) 5.5 [pH] Normal 5-9 [facility] Comment on above: Performed By: #### FANG URIASICRO #### [facility] [address] [place] [address] Dr. Anna Romero SPEC GRAVITY >=1.030 Abnormal 1.005-<=1.025 [facility] Comment on above: Performed By: #### JD URIASRO #### [facility] [address] [place] [address] Dr. Anna Romero UA PROTEIN TRACE Normal NEGATIVE/ TRACE The [facility] Comment on above: Performed By: #### JD URIASRO #### [facility] [address] [place] [address] Dr. Anna Romero UR MICRO IND INDICATED Normal [facility] Comment on above: Performed By: #### JD UIRASRO #### [facility] [address] [place] [address] Dr. Anna Romero Urobilinogen Qn (U) 0.2 {Joel'U}/dL Normal 0.2 - 1. 0 [facility] Comment on above: Performed By: #### JD URIASRO #### [facility] [address] [place] [address] Dr. Anna Romero PREG QUANT HCGon 01-21-2023 HCG QUANT 1693 mIU/mL Normal [facility] Comment on above: Performed By: #### S DAT AGUIRRETCX #### [facility] [address] [place] [address] Dr. Anna Romero HCG RANGE SEE BELOW Normal [facility] Comment on above: Result Comment: 5-50 0.2-1 WEEK 50-500 1-2 WEEKS 100-5,000 2-3 WEEKS 500-10,000 3-4 WEEKS 1,000-50,000 4-5 WEEKS 10,000-100,000 5-6 WEEKS 15,000-200,000 6-8 WEEKS 10,000-100,000 2-3 MONTHS Performed By: #### S CARLA GRASTCX #### [facility] [address] [place] [address] Dr. Anna Romero URINE MICROSCOPIC ONLYon BACTERIA TRACE Abnormal NONE SEEN [facility] Comment on above: Performed By: #### JD URIASRO #### [facility] [address] [place] [address] Dr. Anna Romero Bacteria identified Cx Nom (U) NOT INDICATED Normal [facility] Comment on above: Performed By: #### JD URIASRO #### [facility] [address] [place] [address] Dr. Anna Romero CAST NONE SEEN Normal NONE SEEN [facility] Comment on above: Performed By: #### Yared BARBOSA UMICRO #### [facility] [address] [place] [address] Dr. Anna Romero Crystals LM Nom (Urine sed) NONE SEEN Normal NONE SEEN [facility] Comment on above: Performed By: #### Yared BARBOSA UMICRO #### [facility] [address] [place] [address] Dr. Anna Romero Epithelial cells LM Ql (Urine sed) RARE Normal NONE SEEN /RARE [facility] Comment on above: Performed By: #### Yared BARBOSA UMICRO #### [facility] [address] [place] [address] Dr. Anna Romero MUCOUS TRACE Abnormal NONE SEEN [facility] Comment on above: Performed By: #### Yared BARBOSA UMICRO #### [facility] [address] [place] [address] Dr. Anna Romero RBC 2-5 Abnormal 0-2 [facility] Comment on above: Performed By: #### Yared BARBOSA UMICRO #### [facility] [address] [place] [address] Dr. Anna Romero WBC 0-2 Abnormal NONE SEEN [facility] Comment on above: Performed By: #### Yared BARBOSA UMICRO #### [facility] [address] [place] [address] Dr. Anna Romero US PREG TVon 01-21-2023 [...] JEAN BAPTISTE Date: 2023-01-21 16:54 Normal [facility] ER URINE PROFILEon 3 Bilirubin Ql (U) Negative Normal NEGATIVE [facility] Comment on above: Performed By: #### E RUR #### [facility] [address] [place] [address] Dr. Anna Romero Clarity (U) CLEAR Normal CLEAR [facility] Comment on above: Performed By: #### E RUR #### [facility] [address] [place] [address] Dr. Anna Romero Color (U) YELLOW Normal YELLOW [facility] Comment on above: Performed By: #### E RUR #### [facility] [address] [place] [address] Dr. Anna Romero ERUAHD A micrscopic examination will be performed if indicated. Normal [facility] Comment on above: Performed By: #### E RUR #### [facility] [address] [place] [address] Dr. Anna Romero Glucose Ql (U) Negative Normal NEGATIVE [facility] Comment on above: Performed By: #### E RUR #### [facility] [address] [place] [address] Dr. Anna Romero Hemoglobin Ql (U) Negative Normal NEGATIVE [facility] Comment on above: Performed By: #### E RUR #### [facility] [address] [place] [address] Dr. Anna Romero Ketones Ql (U) Negative Normal NEGATIVE [facility] Comment on above: Performed By: #### E RUR #### [facility] [address] [place] [address] Dr. Anna Romero LEUKOCYTES Negative Normal NEGATIVE [facility] Comment on above: Performed By: #### E RUR #### [facility] [address] [place] [address] Dr. Anna Romero Nitrite Ql (U) Negative Normal NEGATIVE [facility] Comment on above: Performed By: #### E RUR #### [facility] [address] [place] [address] Dr. Anna Romero pH (U) 6.5 [pH] Normal 5-9 [facility] Comment on above: Performed By: #### E RUR #### [facility] [address] [place] [address] Dr. Anna Romero SPEC GRAVITY 1.025 Normal 1.005-<=1.025 [facility] Comment on above: Performed By: #### E RUR #### [facility] [address] [place] [address] Dr. Anna Romero UA PROTEIN TRACE Normal NEGATIVE/ TRACE [facility] Comment on above: Performed By: #### E RUR #### [facility] [address] [place] [address] Dr. Anna Romero UR MICRO IND NOT INDICATED Normal [facility] Comment on above: Performed By: #### E RUR #### [facility] [address] [place] [address] Dr. Anna Romero Urobilinogen Qn (U) 0.2 {Joel'U}/dL Normal 0.2 - 1. 0 [facility] Comment on above: Performed By: #### E RUR #### [facility] [address] [place] [address] Dr. Anna Romero GROUP A STREP CULTUREon 12-13 S. pyogenes Ag Ql (Unsp spec) Culture Observations: NEGATIVE FOR GROUP A STREPTOCOCCUS. Normal [facility] Comment on above: Performed By: #### S CARLA GRASTCX #### [facility] [address] [place] [address] Dr. Anna Romero STREPT SCREENon 01-08-2023 STREP SCREEN A Negative Normal NEGATIVE [facility] Comment on above: Performed By: #### S CARLA, GRASTCX #### [facility] [address] [place] [address] Dr. Anna Romero SYMPTOMATIC COVID-19 ANTIGEN on 01-08-2023 EUA Statement SEE BELOW Normal [facility] Comment on above: Result Comment: This [...] Performed By: #### S CARLA GRASTCX #### [facility] [address] [place] [address] Dr. Anna Romero SARS-CoV-2 (COVID-19) RNA DAVY+probe Ql (Unsp spec) Positive Abnormal NEGATIVE [facility] Comment on above: Performed By: #### S CARLA GRASTCX #### [facility] [address] [place] [address] Dr. Anna Romero US PREG TVon 05-31-2022 [...] GENI CABRAL Date: 2022-05-31 19:46 Normal [facility] BILIRUBIN TOTALon 03-16-2022 Bilirubin [Mass/Vol] 0.3 mg/dL Normal 0.2-1.0 [facility] Comment on above: Performed By: #### T DALE #### [facility] [address] [place] [address] Dr. Anna Romero CBC AUTO DIFFon 03-16-2022 BASO # 0.0 103/ul Normal 0.0-0.1 [facility] Comment on above: Performed By: #### C BC #### [facility] [address] [place] [address] Dr. Anna Romero Basophils/100 WBC (Bld) 0.4 % Normal 0.2-2.0 [facility] Comment on above: Performed By: #### C BC #### [facility] [address] [place] [address] Dr. Anna Romero EO # 0.0 103/ul Normal 0.0-0.7 [facility] Comment on above: Performed By: #### C BC #### [facility] [address] [place] [address] Dr. Anna Romero Eosinophils/100 WBC (Bld) 0.2 % Critically low 0.9-7.0 [facility] Comment on above: Performed By: #### C BC #### [facility] [address] [place] [address] Dr. Anna Romero Erythrocyte distribution width (RBC) [Ratio] 12.8 % Normal 11.0-15.0 [facility] Comment on above: Performed By: #### C BC #### [facility] [address] [place] [address] Dr. Anna Romero Hematocrit (Bld) [Volume fraction] 39.2 % Normal 36.0-48.0 [facility] Comment on above: Performed By: #### C BC #### [facility] [address] [place] [address] Dr. Anna Romero Hemoglobin (Bld) [Mass/Vol] 12.9 g/dL Normal 12.0-16.0 [facility] Comment on above: Performed By: #### C BC #### [facility] [address] [place] [address] Dr. Anna Romero IG # 0.01 10e3/ul Normal 0.00-0.03 [facility] Comment on above: Performed By: #### C BC #### [facility] [address] [place] [address] Dr. Anna Romero IG % 0.2 % Normal 0.0-0.5 [facility] Comment on above: Performed By: #### C BC #### [facility] [address] [place] [address] Dr. Anna Romero LYMPH # 1.6 103/ul Normal 1.2-3.8 [facility] Comment on above: Performed By: #### C BC #### [facility] [address] [place] [address] Dr. Anna Romero Lymphocytes/100 WBC (Bld) 29.8 % Normal 20.5-60.0 [facility] Comment on above: Performed By: #### C BC #### [facility] [address] [place] [address] Dr. Anna Romero MANUAL DIFF REQ NO Normal [facility] Comment on above: Performed By: #### C BC #### [facility] [address] [place] [address] Dr. Anna Romero MCH (RBC) [Entitic mass] 31.8 pg Normal 26.7-34.0 [facility] Comment on above: Performed By: #### C BC #### [facility] [address] [address] [address] Anna Romero MCHC (RBC) [Mass/Vol] 32.9 g/dL Normal 29.9-35.2 [facility] Comment on above: Performed By: #### C BC #### [facility] [address] [place] [address] Dr. Anna Romero MCV (RBC) [Entitic vol] 96.6 fL Normal 81.0-99.0 [facility] Comment on above: Performed By: #### C BC #### [facility] [address] [place] [address] Dr. Anna Romero MONO # 0.4 103/ul Normal 0.3-0.8 [facility] Comment on above: Performed By: #### C BC #### [facility] [address] [place] [address] Dr. Anna Romero Monocytes/100 WBC (Bld) 7.2 % Normal 1.7-12.0 [facility] Comment on above: Performed By: #### C BC #### [facility] [address] [place] [address] Dr. Anna Romero NEUT # 3.3 103/ul Normal 1.4-6.5 [facility] Comment on above: Performed By: #### C BC #### [facility] [address] [place] [address] Dr. Anna Romero Neutrophils/100 WBC (Bld) 62.2 % Normal 43.0-75.0 [facility] Comment on above: Performed By: #### C BC #### [facility] [address] [place] [address] Dr. Anna Romero Platelet mean volume (Bld) [Entitic vol] 10.0 fL Normal 9.5-13.5 [facility] Comment on above: Performed By: #### C BC #### [facility] [address] [place] [address] Dr. Anna Romero PLT 153 103/ul Normal 150-450 [facility] Comment on above: Performed By: #### C BC #### [facility] [address] [place] [address] Dr. Anna Romero RBC 4.06 106/ul Critically low 4.20-5.40 [facility] Comment on above: Performed By: #### C BC #### [facility] [address] [place] [address] Dr. Anna Romero WBC 5.3 103/ul Normal 4.0-11.0 [facility] Comment on above: Performed By: #### C BC #### [facility] [address] [place] [address] Dr. Anna Romero FREE T3on 03-16-2022 FREE T3 3.18 pg/mlL Normal 2.18-3.98 [facility] Comment on above: Performed By: #### S CARLA GRASTCX #### [facility] [address] [place] [address] Dr. Anna Romero FREE T4on 03-16-2022 Free T4 [Mass/Vol] 1.08 ng/dL Normal 0.76-1.46 [facility] Comment on above: Performed By: #### F T4 #### [facility] [address] [place] [address] Dr. Anna Romero PROF 14(COMP METB)on 022 Albumin [Mass/Vol] 4.3 g/dL Normal 3.4-5.0 [facility] Comment on above: Performed By: #### S CARLA GRASTCX #### [facility] [address] [place] [address] Dr. Anna Romero Albumin/Globulin [Mass ratio] 1.2 {ratio} Normal [facility] Comment on above: Performed By: #### S CARLA GRASTCX #### [facility] [address] [place] [address] Dr. Anna Romero ALP [Catalytic activity/Vol] 60 U/L Normal 46-116 [facility] Comment on above: Performed By: #### S CARLA GRASTCX #### [facility] [address] [place] [address] Dr. Anna Romero ALT [Catalytic activity/Vol] 25 U/L Normal 14-59 [facility] Comment on above: Performed By: #### S MOISEN GRASTCX #### [facility] [address] [address] [address] Anna Romero Anion gap [Moles/Vol] 13.8 mmol/L Normal [facility] Comment on above: Performed By: #### S SCRN, GRASTCX #### [facility] [address] [address] [address] Anna Romero AST [Catalytic activity/Vol] 21 U/L Normal 15-37 [facility] Comment on above: Performed By: #### S CARLA GRASTCX #### [facility] [address] [place] [address] Dr. Anna Romero Calcium [Mass/Vol] 9.4 mg/dL Normal 8.5-10.1 [facility] Comment on above: Performed By: #### S CARLA, GRASTCX #### [facility] [address] [place] [address] Dr. Anna Romero Chloride [Moles/Vol] 101 mmol/L Normal 98-107 [facility] Comment on above: Performed By: #### S CARLA, GRASTCX #### [facility] [address] [place] [address] Dr. Anna Romero CO2 [Moles/Vol] 26.8 mmol/L Normal 21.0-32.0 [facility] Comment on above: Performed By: #### S SCRN, GRASTCX #### [facility] [address] [place] [address] Dr. Anna Romero Creatinine [Mass/Vol] 0.87 mg/dL Normal 0.55-1.02 [facility] Comment on above: Performed By: #### S SCRN, GRASTCX #### [facility] [address] [place] [address] Dr. Anna Romero EGFR-AF SRI LANKAN >60 Normal >=60 [facility] Comment on above: Performed By: #### S SCRN, GRASTCX #### [facility] [address] [address] [address] Anna Romero EGFR-NON AF SRI LANKAN >60 Normal >=60 [facility] Comment on above: Performed By: #### S SCRN, GRASTCX #### [facility] [address] [address] [address] Anna Romero Globulin (S) [Mass/Vol] 3.5 g/dL Normal [facility] Comment on above: Performed By: #### S SCRN, GRASTCX #### [facility] [address] [place] [address] Dr. Anna Romero Glucose [Mass/Vol] 80 mg/dL Normal 74-106 [facility] Comment on above: Performed By: #### S SCRN, GRASTCX #### [facility] [address] [place] [address] Dr. Anna Romero Potassium [Moles/Vol] 3.6 mmol/L Normal 3.5-5.1 [facility] Comment on above: Performed By: #### S SCRN, GRASTCX #### [facility] [address] [place] [address] Dr. Anna Romero Protein [Mass/Vol] 7.8 g/dL Normal 6.4-8.2 [facility] Comment on above: Performed By: #### S SCRN, GRASTCX #### [facility] [address] [place] [address] Dr. Anna Romero Sodium [Moles/Vol] 138 mmol/L Normal 136-145 [facility] Comment on above: Performed By: #### S SCRN, GRASTCX #### [facility] [address] [place] [address] Dr. Anna Romero Urea nitrogen [Mass/Vol] 12.0 mg/dL Normal 7.0-18.0 [facility] Comment on above: Performed By: #### S SCRN, GRASTCX #### [facility] [address] [place] [address] Dr. Anna Romero Urea nitrogen/Creatinine [Mass ratio] 13.8 mg/mg Normal [facility] Comment on above: Performed By: #### S SCRN, GRASTCX #### [facility] [address] [address] [address] Anna Romero TSHon 03-16-2022 TSH 2.442 uIU/mL Normal 0.358-3.740 [facility] Comment on above: Performed By: #### S SCRN, GRASTCX #### [facility] [address] [place] [address] Dr. Anna Romero TSH RANGE SEE BELOW Normal [facility] Comment on above: Result Comment: <0.3 4 UIU/ml HYPERTHYROID 0.34-5.60 UIU/ml EUTHYROID >5.60 UIU/ml HYPOTHYROID Performed By: #### S SCRN, GRASTCX #### [facility] [address] [place] [address] Dr. Anna Romero Vital Signs Date Time [...] 170.2 cm Haseeb Nice MD Work Phone: [facility] 10-16-2023 12:21-0500 Body mass index (BMI) [Ratio] 22.55 kg/m2 Haseeb Nice MD Work Phone: [facility] 10-16-2023 12:21-0500 Body weight 65.32 kg Haseeb Nice MD Work Phone: [facility] 10-16-2023 12:21-0500 Diastolic blood pressure 66 mm[Hg] Haseeb Nice MD Work Phone: [facility] 10-16-2023 12:21-0500 Heart rate 79 /min Haseeb Nice MD Work Phone: [facility] 10-16-2023 12:21-0500 Systolic blood pressure 109 mm[Hg] Haseeb Nice MD Work Phone: [facility] Encounters Encounter Date Encounter Type Care Provider Facility Start: 12-31-2023 End: 12-31-2023 ambulatory ROSANA GALO Not Available Start: 12-16-2023 End: 12-16-2023 ambulatory BRIA YOJANA Not Available Start: 11-27-2023 End: 11-27-2023 ambulatory ROSANA GALO Not Available Start: 11-27-2023 End: 11-27-2023 Office outpatient visit 15 minutes Rosana HAYES Work Phone: [facility] Comment on above: Second trimester pre gnancy; with normal glucose tolerance test (GTT); Diabetes mellitus screening; History of miscarriage; History of oligohydramnios Start: 11-19-2023 End: 11-20-2023 ambulatory [facility] Start: 10-29-2023 End: 10-30-2023 ambulatory [facility] Start: 10-28-2023 End: 10-28-2023 ambulatory BRIA YOJANA Not Available Start: 10-22-2023 Documentation procedure Haseeb Nice MD Work Phone: Maternal- Medicine at [facility] Start: 10-22-2023 Telephone encounter Rachelle TREJO M[facility]- Medicine at [facility] Start: 10-21-2023 Chart abstracting Aliya berger MD Work Phone: Maternal- Medicine at [facility] Start: 10-17-2023 Orders Only Robbi Rodriguez [facility] rnal- Medicine at [facility] Comment on above: History of oligohydr amnios in prior , currently (Primary Dx) Start: 10-16-2023 End: 10-17-2023 ambulatory BRIA BALES [facility] Start: 10-16-2023 End: 10-16-2023 Office outpatient new 45 minutes Haseeb Nice MD Work Phone: Maternal- Medicine at 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 Start: 10-08-2023 End: 10-08-2023 ambulatory BRIA BALSE Not Available Start: 09-09-2023 End: 09-09-2023 ambulatory [...] Td Vaccines (9 - Td or Tdap) [facility] Start: 10-17-2024 End: 10-17-2024 US MFM with or without consult US MFM with or without consult Imaging Routine History of oligohydramnios in prior , currently Expected: 10/17/2024 (Approximate), Expires: 10/17/2024 [facility] Work Phone: Comment on above: Expected: 10/17/2024 (Approximate), Expires: 10/17/2024 Start: 10-16-2024 Adult BMI Screening Adult BMI Screen ing [facility] Start: 10-16-2024 Tobacco Screening Tobacco Screening [facility] Start: 12-11-2023 End: 12-11-2023 Patient encounter procedure 12/11/2023 10:20 AM EST Routine [facility] [address] [place] [address] Bria Bales, DO [address] [place] [address] [facility] Start: 11-27-2023 End: 11-27-2024 CBC panel - Blood by Automated count CBC Lab Routine Diabetes mellitus screening Expected: 11/27/2023 (Approximate), Expires: 11/27/2024 [facility] Work Phone: Comment on above: Expected: 11/27/2023 (Approximate), Expires: 11/27/2024 Start: 11-27-2023 End: 11-27-2024 Measurement of glucose 1 hour after glucose challenge for glucose tolerance test Glucose tolerance, 1 hour Lab Routine Diabetes mellitus screening Expected: 11/27/2023 (Approximate), Expires: 11/27/2024 [facility] Comment on above: Expected: 11/27/2023 [...] encounter procedure 11/19/2023 9:15 AM EST Appointment [facility] - Ultrasound [address] [place] [address] [facility] Start: 10-29-2023 End: 10-29-2023 Patient encounter procedure 10/29/2023 9:15 AM EST Appointment [facility] - Ultrasound [address] [place] [address] [facility] - Ultrasound Start: 10-16-2023 End: 10-16-2023 Patient encounter procedure 10/16/2023 1:00 PM EST Office Visit Maternal- Medicine at [facility] [address] [place] [address] Haseeb Nice MD [address], [address] [place] [id number] Maternal- Medicine at [facility] Start: 10-16-2023 Subsequent hospital visit by physician 10/16/2023 11:30 AM EST Hospital Encounter [facility] [address] [place] [address] [facility] Start: 06-14-2023 Influenza vaccination Influenza Vacc ine [facility] Start: 2014 Screening for malignant neoplasm of cervix Pap Smear [facility] Start: 2012 DTaP,Tdap and Td Vaccines (1 - Tdap) DTaP,Tdap and Td Vaccines (1 - Tdap) [facility] Start: 2011 Adult BMI Screening Adult BMI Screen ing [facility] Start: 2005 Depression Screening Depression Scre ening [facility] Start: 2005 Tobacco Screening Tobacco Screening [facility] Start: 1993 Tobacco Counseling Tobacco Counselin g [facility] Payers Date Payer Category Payer Medicaid [id number] 1993 Unknown [id number] 2.16.84 0.1.880175.3.579.2.593 1993 Unknown [id number] 2.16.84 0.1.968907.3.579.2.593 1993 Unknown [id number] 2.16.84 0.1.470202.3.579.2.593 1993 Unknown [id number] 2.16.84 0.1.831072.3.579.2.593 1993 Unknown [id number] 2.16.84 0.1.772520.3.579.2.593 1993 Unknown [id number] 2.16.84 0.1.613450.3.579.2.593 1993 Unknown [id number] 2.16.84 0.1.477370.3.579.2.593 1993 Unknown [id number] 2.16.84 0.1.013971.3.579.2.593 1993 Unknown [id number] 2.16.84 0.1.093801.3.579.2.593 1993 Unknown [id number] 2.16.84 0.1.719285.3.579.2.593 1993 Unknown [id number] 2.16.84 0.1.816969.3.579.2.593 1993 Unknown [id number] 2.16.84 0.1.091766.3.579.2.593 1993 Unknown [id number] 2.16.84 0.1.764207.3.579.2.1286 1993 Unknown [id number] 2.16.84 0.1.434904.3.579.2.1286 1993 Unknown [id number] 2.16.8 40.1.547016.3.579.2.1286 1993 Unknown [id number] 2.16.84 0.1.799813.3.579.2.1286 1993 Unknown [id number] 2.16.84 0.1.204916.3.579.2.1259 1993 Unknown [id number] 2.16.84 0.1.834732.3.579.2.1259 1993 Unknown [id number] 2.16.84 0.1.171284.3.579.2.1259 1993 Unknown [id number] 2.16.84 0.1.589517.3.579.2.1259 1993 Unknown [id number] 2.16.840 .1.810712.3.579.2.1259 1993 Unknown [id number] 2.16.840 .1.684547.3.579.2.1259 1959 Self-pay [id number] 1959 Unknown [id number] 1959 Unknown [id number] Social History Date Type Detail Facility Start: 10-15-2023 Tobacco smoking status [facility] Tobacco smoking consumption unknown [facility] Start: 03-23-2019 End: 10-16-2023 History of Social function [facility] Start: 03-23-2019 End: 10-16-2023 Housing Instability [facility] Housing Instability Unknown [facility] Start: 06-10-2023 [facility] Start: 1995 Sex Assigned At Not on file [facility] Start: 10-16-2023 Tobacco smoking status NHIS Smokes tobacco daily [facility] History of tobacco use Cigarette Smoker [facility] Start: 10-16-2023 Tobacco use and exposure Smokeless tobacco non-user [facility] Start: 10-16-2023 End: 10-21-2023 Alcohol intake Ex-drinker (finding) [facility] Start: 1995 Sex Assigned At Female [facility] Start: 08-07-2023 Gender identity Identifies as female gender (finding) [facility] Start: 08-07-2023 Sexual orientation Heterosexual (finding) [facility] Goals Date Patient Goal Desired [...] ultrasound next week. documented in this encounter [facility] 10-22-2023 Telephone encount er Note Please call us back to schedule an ultrasound next week. [facility] 10-22-2023 History of Presen t illness Narrative [...] increase p.o. hydration. documented in this encounter [facility] 10-16-2023 History of Presen t illness Narrative Headache/epigastric pain/blurry vision/swelling? No Cramping/contractions? No Abnormal vaginal discharge? No Spotting/vaginal bleeding? No Loss of fluid like your water may have broken? No Cats in the home? No Do you change the litter box? N/A Flu vaccine? No Genetic testing done this here or other office? Yes Have you been seen here at [facility] in a previous ? No Recent ER visits or hospitalizations? No Bring blood sugar log or meter with you today? (Please bring them with you for every visit at [facility]) N/A Traveled outside the country in the past 6 month No Any concerns that you would like me to mention to the provider today? No [facility] Maternal- Medicine Consult Note Reason [...] Yes Not In System Ref Prov vit no.734-[id number]-[id number] acid ( VITAMIN) 27 mg iron- 800 [...] continue with routine care in your office [facility], the CDC, and other organizations representing maternal and public health professionals recommend that , , and lactating people and those considering receive the COVID-19 vaccination. Vaccination is the best method to reduce maternal and complications of SARS-CoV-2 infection. This document was created with [employer] technology. Though I make every effort to review the dictation as it is transcribed, on occasion the spoken word can be misinterpreted by the technology leading to inappropriate words, phrases, or sentences. This note is addressed to the requesting provider as a consultation for clinical guidance. Specific medical abbreviations are occasionally used and those are generally approved by the [place]?Board of?Obstetrics and?Gynecology?as well as?James s abbreviations. The above plan of care was based solely on the diagnoses for which a consultation was requested. ?More frequent testing may be indicated based on her other medical/obstetrical conditions. The management of other or medical conditions is beyond the scope of requested consultation and will continue to be followed by the primary industrial sewer or primary care provider. Thank you for allowing me to participate in her care. Please contact me if you have any concerns. documented in this encounter [employer] 03-16-2022 Note PROCEDURE: XR SHOULD ER RT 2V or > HISTORY: Impingement syndrome of right shoulder region ; acute right shoulder pain, no known injury COMPARISON: None. FINDINGS: BONES:No fracture, acute abnormality, or significant arthropathy. SOFT TISSUES:No visible soft tissue swelling. EFFUSION:None visible. OTHER: Negative. IMPRESSION: 1. Normal examination. Electronically authenticated by: GENI CABRAL Date: 2022-03-16 18:16 [facility] Evaluation note Diagnosis High-risk in second trimester- Primary History of oligohydramnios in prior , currently with other poor obstetric history 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 20 weeks gestation of [facility] Diagnosis History of oligohydramnios in prior , currently - Primary with other poor obstetric history [facility] Diagnosis Second trimester state, incidental with normal glucose tolerance test (GTT) Diabetes mellitus screening Screening for diabetes mellitus History of miscarriage Personal history of other genital system and obstetric disorders History of oligohydramnios documented in this encounter [facility] filedocumented in this encounterPro[facility] SystemInstructionsNot on filedocumented in this encounterProSt. [facility] SystemInstructionsNot on filedocumented in this encounterProSt. Vincent [facility] SystemInstructionsNot on filedocumented in this encounterWestern [facility] Summary Purpose Family History No [...] Haseeb Nice MD [address], [address] [place] [id number] [facility]aternal [facility] [address] [place] [address] Referral ID Status Reason Start Date Expiration Date V isits Requested Visits Authorized [id number] Pending Review 10/17/2023 10/16/2024 1 1 Additional Source Comments INFORMATION SOURCE (unrecogn ized section and content) DATE CREATED AUTHOR 01/31/2023 [facility] DATE CREATED AUTHOR AUTHOR'S ORGANIZ ATION 10/20/[address] [facility] DATE CREATED AUTHOR AUTHOR'S ORGANIZ ATION 11/24/2023 [facility] DATE CREATED AUTHOR AUTHOR'S ORGANIZ ATION 01/01/2024 [facility] EPIC Reason for Visit (unrecogniz [...] BE BASED ON THE PRIMARY CLINICAL RECORDS. [facility] [employer] [facility]. provides no warranty or guarantee of the accuracy or completeness of information in this document.
--- OUTSIDE RECORDS SUMMARY | 2024-01-16 07:10 | XMS_ITS | CCD ---
Author Organization [facility] Care Team Providers Care Historic Preservationist Name Role Phone RUSSELL, DR DEBBIE Mohan Attending Unavailabl e REINECK, DR DEBBIE Mohan Admitting Unavailabl e MARCH ., DR MARIS [facility] Unavailable REINECK, DR DEBBIE Mohan Consulting Unavailabl e CASSANDRA ROSAELS Admitting Unavailable CASSANDRA ROSALES Attending Unavailable GRECHNY [...] BRIA Attending Unavailable ROSANA GALO Attending Unavailable YOJANA, BRIA Attending Unavailable IRAJROSANA SCHAFFER Attending Unavailable YOJANA, BRIA Attending Unavailable IRAJROSANA SCHAFFER Attending Unavailable YOJANA, BRIA Attending Unavailable Medications [...] for nausea or vomiting. 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 therapy; Translations: [OTH SENIOR CARE CURRENT DRUG THERAPY] Onset: 01-23-2023 Episodic Other [...] UA Negative Negative - 4(70) +++ mg/dL [facility] Blood, UA Negative Negative - 50 Felice/mcL [facility] Clarity, UA Clear [facility] Color, UA Yellow [facility] Glucose, UA Negative Negative - 1999(110) ++++ mg/dL [facility] Interpretation and review of laboratory results Normal [facility] Ketones, UA Negative Negative - 160(16) ++++ mg/dL [facility] Leukocytes, UA Negative Negative - 500+++ Regina/mcL [facility] Nitrite, UA Negative Negative - Positive [facility] pH, UA 5.5 5 - 9 [facility] Protein, UA Negative Negative - 1999(20) ++++ mg/dL [facility] Spec Grav, UA 1.030 1 - 1.03 [facility] Urobilinogen, UA 0.2 0.2 - 12 mg/dL [facility] PREG QUANT HCGon 01-28-2023 HCG QUANT 17 mIU/mL Normal [facility] Comment on above: Performed By: #### P REGQNT #### [facility] [address] [address] [address] Anna Romero HCG RANGE SEE BELOW Normal [facility] Comment on above: Result Comment: 5-50 0.2-1 WEEK 50-500 1-2 WEEKS 100-5,000 2-3 WEEKS 500-10,000 3-4 WEEKS 1,000-50,000 4-5 WEEKS 10,000-100,000 5-6 WEEKS 15,000-200,000 6-8 WEEKS 10,000-100,000 2-3 MONTHS Performed By: #### P REGQNT #### [facility] [address] [place] [address] Dr. Anna Romero PREG QUANT HCGon 01-23-2023 HCG QUANT 441 mIU/mL Normal [facility] Comment on above: Performed By: #### S SCRN, GRASTCX #### [facility] [address] [place] [address] Dr. Anna Romero HCG RANGE SEE BELOW Normal [facility] Comment on above: Result Comment: 5-50 0.2-1 WEEK 50-500 1-2 WEEKS 100-5,000 2-3 WEEKS 500-10,000 3-4 WEEKS 1,000-50,000 4-5 WEEKS 10,000-100,000 5-6 WEEKS 15,000-200,000 6-8 WEEKS 10,000-100,000 2-3 MONTHS Performed By: #### S SCRN, GRASTCX #### [facility] [address] [place] [address] Dr. Anna Romero ABO AND RH TYPEon 01-21-2023 ABO and Rh group Nom (Bld) ABO Rh Typing A Rh Positive Normal [facility] Comment on above: Performed By: #### S SCRN, GRASTCX #### [facility] [address] [place] [address] Dr. Anna Romero ER URINE PROFILEon 3 Bilirubin Ql (U) Negative Normal NEGATIVE [facility] Comment on above: Performed By: #### JD URIASRO #### [facility] [address] [place] [address] Dr. Anna Romero Clarity (U) CLEAR Normal CLEAR [facility] Comment on above: Performed By: #### Yared BARBOSA UMICRO #### [facility] [address] [place] [address] Dr. Anna Romero Color (U) YELLOW Normal YELLOW [facility] Comment on above: Performed By: #### Yared BARBOSA UMICRO #### [facility] [address] [address] [address] Anna BAER A micrscopic examination will be performed if indicated. Normal [facility] Comment on above: Performed By: #### Yared BARBOSA UMICRO #### [facility] [address] [address] [address] Anna Romero Glucose Ql (U) Negative Normal NEGATIVE [facility] Comment on above: Performed By: #### Yared BARBOSA UMICRO #### [facility] [address] [place] [address] Dr. Anna Romero Hemoglobin Ql (U) LARGE Abnormal NEGATIVE [facility] Comment on above: Performed By: #### Yared BAROBSA UMICRO #### [facility] [address] [place] [address] Dr. Anna Romero Ketones Ql (U) Negative Normal NEGATIVE [facility] Comment on above: Performed By: #### Yared BARBOSA UMICRO #### [facility] [address] [place] [address] Dr. Anna Romero LEUKOCYTES Negative Normal NEGATIVE [facility] Comment on above: Performed By: #### Yared BARBOSA UMICRO #### [facility] [address] [place] [address] Dr. Anna Romero Nitrite Ql (U) Negative Normal NEGATIVE [facility] Comment on above: Performed By: #### Yared BARBOSA UMICRO #### [facility] [address] [place] [address] Dr. Anna Romero pH (U) 5.5 [pH] Normal 5-9 [facility] Comment on above: Performed By: #### Yared BARBOSA UMICRO #### [facility] [address] [place] [address] Dr. Anna Romero SPEC GRAVITY >=1.030 Abnormal 1.005-<=1.025 [facility] Comment on above: Performed By: #### Yared BARBOSA UMICRO #### [facility] [address] [place] [address] Dr. Anna Romero UA PROTEIN TRACE Normal NEGATIVE/ TRACE [facility] Comment on above: Performed By: #### JD URIASRO #### [facility] [address] [place] [address] Dr. Anna Romero UR MICRO IND INDICATED Normal [facility] Comment on above: Performed By: #### JD URIASRO #### [facility] [address] [place] [address] Dr. Anna Romero Urobilinogen Qn (U) 0.2 {Joel'U}/dL Normal 0.2 - 1. 0 [facility] Comment on above: Performed By: #### JD URIASRO #### [facility] [address] [place] [address] Dr. Anna Romero PREG QUANT HCGon 01-21-2023 HCG QUANT 1693 mIU/mL Normal [facility] Comment on above: Performed By: #### S DAT AGUIRRETCX #### [facility] [address] [place] [address] Dr. Anna Romero HCG RANGE SEE BELOW Normal [facility] Comment on above: Result Comment: 5-50 0.2-1 WEEK 50-500 1-2 WEEKS 100-5,000 2-3 WEEKS 500-10,000 3-4 WEEKS 1,000-50,000 4-5 WEEKS 10,000-100,000 5-6 WEEKS 15,000-200,000 6-8 WEEKS 10,000-100,000 2-3 MONTHS Performed By: #### S CARLA GRASTCX #### [facility] [address] [place] [address] Dr. Anna Romero URINE MICROSCOPIC ONLYon BACTERIA TRACE Abnormal NONE SEEN [facility] Comment on above: Performed By: #### JD URIASRO #### [facility] [address] [place] [address] Dr. Anna Romero Bacteria identified Cx Nom (U) NOT INDICATED Normal [facility] Comment on above: Performed By: #### E RUR, UMICRO #### [facility] [address] [place] [address] Dr. Anna Romero CAST NONE SEEN Normal NONE SEEN [facility] Comment on above: Performed By: #### Yared BARBOSA UMICRO #### [facility] [address] [place] [address] Dr. Anna Romero Crystals LM Nom (Urine sed) NONE SEEN Normal NONE SEEN [facility] Comment on above: Performed By: #### Yared BARBOSA UMICRO #### [facility] [address] [place] [address] Dr. Anna Romero Epithelial cells LM Ql (Urine sed) RARE Normal NONE SEEN /RARE [facility] Comment on above: Performed By: #### Yared BARBOSA UMICRO #### [facility] [address] [place] [address] Dr. Anna Romero MUCOUS TRACE Abnormal NONE SEEN [facility] Comment on above: Performed By: #### Yared BARBOSA UMICRO #### [facility] [address] [place] [address] Dr. Anna Romero RBC 2-5 Abnormal 0-2 [facility] Comment on above: Performed By: #### Yared BARBOSA UMICRO #### [facility] [address] [place] [address] Dr. Anna Romero WBC 0-2 Abnormal NONE SEEN [facility] Comment on above: Performed By: #### Yared BARBOSA UMRUBENRO #### [facility] [address] [place] [address] Dr. Anna Romero US PREG TVon 01-21-2023 [...] LUDWIG JEAN BAPTISTE Date: 2023-01-21 16:[address] [facility] ER URINE PROFILEon 3 Bilirubin Ql (U) Negative Normal NEGATIVE [facility] Comment on above: Performed By: #### E RUR #### [facility] [address] [place] [address] Dr. Anna Romero Clarity (U) CLEAR Normal CLEAR [facility] Comment on above: Performed By: #### E RUR #### [facility] [address] [place] [address] Dr. Anna Romero Color (U) YELLOW Normal YELLOW [facility] Comment on above: Performed By: #### E RUR #### [facility] [address] [place] [address] Dr. Anna Romero ERUAHD A micrscopic examination will be performed if indicated. Normal [facility] Comment on above: Performed By: #### E RUR #### [facility] [address] [place] [address] Dr. Anna Romero Glucose Ql (U) Negative Normal NEGATIVE [facility] Comment on above: Performed By: #### E RUR #### [facility] [address] [place] [address] Dr. Anna Romero Hemoglobin Ql (U) Negative Normal NEGATIVE [facility] Comment on above: Performed By: #### E RUR #### [facility] [address] [place] [address] Dr. Anna Romero Ketones Ql (U) Negative Normal NEGATIVE [facility] Comment on above: Performed By: #### E RUR #### [facility] [address] [place] [address] Dr. Anna Romero LEUKOCYTES Negative Normal NEGATIVE [facility] Comment on above: Performed By: #### E RUR #### [facility] [address] [place] [address] Dr. Anna Romero Nitrite Ql (U) Negative Normal NEGATIVE [facility] Comment on above: Performed By: #### E RUR #### [facility] [address] [place] [address] Dr. Anna Romero pH (U) 6.5 [pH] Normal 5-9 [facility] Comment on above: Performed By: #### E RUR #### [facility] [address] [place] [address] Dr. Anna Romero SPEC GRAVITY 1.025 Normal 1.005-<=1.025 [facility] Comment on above: Performed By: #### E RUR #### [facility] [address] [place] [address] Dr. Anna Romero UA PROTEIN TRACE Normal NEGATIVE/ TRACE [facility] Comment on above: Performed By: #### E RUR #### [facility] [address] [place] [address] Dr. Anna Romero UR MICRO IND NOT INDICATED Normal [facility] Comment on above: Performed By: #### E RUR #### [facility] [address] [place] [address] Dr. Anna Romero Urobilinogen Qn (U) 0.2 {Joel'U}/dL Normal 0.2 - 1. 0 [facility] Comment on above: Performed By: #### E RUR #### [facility] [address] [address] [address] Anna Romero GROUP A STREP CULTUREon 12-13 S. pyogenes Ag Ql (Unsp spec) Culture Observations: NEGATIVE FOR GROUP A STREPTOCOCCUS. Normal [facility] Comment on above: Performed By: #### S MOISEN, GRASTCX #### [facility] [address] [address] [address] Anna Romero STREPT SCREENon 01-08-2023 STREP SCREEN A Negative Normal NEGATIVE [facility] Comment on above: Performed By: #### S SCRN, GRASTCX #### [facility] [address] [address] [address] Anna Romero SYMPTOMATIC COVID-19 ANTIGEN on 01-08-2023 EUA Statement SEE BELOW Normal [facility] Comment on above: Result Comment: This test [...] is revoked sooner. Performed By: #### S MOISEN, GRASTCX #### [facility] [address] [place] [address] Dr. Anna Romero SARS-CoV-2 (COVID-19) RNA DAVY+probe Ql (Unsp spec) Positive Abnormal NEGATIVE [facility] Comment on above: Performed By: #### S MOISEN, GRASTCX #### [facility] [address] [place] [address] Dr. Anna Romero US PREG TVon 05-31-2022 [...] GENI CABRAL Date: 2022-05-31 19:46 Normal [facility] BILIRUBIN TOTALon 03-16-2022 Bilirubin [Mass/Vol] 0.3 mg/dL Normal 0.2-1.0 [facility] Comment on above: Performed By: #### T DALE #### [facility] [address] [place] [address] Dr. Anna Romero CBC AUTO DIFFon 03-16-2022 BASO # 0.0 103/ul Normal 0.0-0.1 [facility] Comment on above: Performed By: #### C BC #### [facility] [address] [place] [address] Dr. Anna Romero Basophils/100 WBC (Bld) 0.4 % Normal 0.2-2.0 [facility] Comment on above: Performed By: #### C BC #### [facility] [address] [place] [address] Dr. Anna Romero EO # 0.0 103/ul Normal 0.0-0.7 [facility] Comment on above: Performed By: #### C BC #### [facility] [address] [place] [address] Dr. Anna Romero Eosinophils/100 WBC (Bld) 0.2 % Critically low 0.9-7.0 [facility] Comment on above: Performed By: #### C BC #### [facility] [address] [place] [address] Dr. Anna Romero Erythrocyte distribution width (RBC) [Ratio] 12.8 % Normal 11.0-15.0 [facility] Comment on above: Performed By: #### C BC #### [facility] [address] [place] [address] Dr. Anna Romero Hematocrit (Bld) [Volume fraction] 39.2 % Normal 36.0-48.0 [facility] Comment on above: Performed By: #### C BC #### [facility] [address] [place] [address] Dr. Anna Romero Hemoglobin (Bld) [Mass/Vol] 12.9 g/dL Normal 12.0-16.0 [facility] Comment on above: Performed By: #### C BC #### [facility] [address] [place] [address] Dr. Anna Romero IG # 0.01 10e3/ul Normal 0.00-0.03 [facility] Comment on above: Performed By: #### C BC #### [facility] [address] [place] [address] Dr. Anna Romero IG % 0.2 % Normal 0.0-0.5 [facility] Comment on above: Performed By: #### C BC #### [facility] [address] [place] [address] Dr. Anna Romero LYMPH # 1.6 103/ul Normal 1.2-3.8 [facility] Comment on above: Performed By: #### C BC #### [facility] [address] [place] [address] Dr. Anna Romero Lymphocytes/100 WBC (Bld) 29.8 % Normal 20.5-60.0 [facility] Comment on above: Performed By: #### C BC #### [facility] [address] [place] [address] Dr. Anna Romero MANUAL DIFF REQ NO Normal [facility] Comment on above: Performed By: #### C BC #### [facility] [address] [place] [address] Dr. Anna Romero MCH (RBC) [Entitic mass] 31.8 pg Normal 26.7-34.0 [facility] Comment on above: Performed By: #### C BC #### [facility] [address] [address] [address] Anna Romero MCHC (RBC) [Mass/Vol] 32.9 g/dL Normal 29.9-35.2 [facility] Comment on above: Performed By: #### C BC #### [facility] [address] [address] [address] Anna Romero MCV (RBC) [Entitic vol] 96.6 fL Normal 81.0-99.0 [facility] Comment on above: Performed By: #### C BC #### [facility] [address] [place] [address] Dr. Anna Romero MONO # 0.4 103/ul Normal 0.3-0.8 [facility] Comment on above: Performed By: #### C BC #### [facility] [address] [place] [address] Dr. Anna Romero Monocytes/100 WBC (Bld) 7.2 % Normal 1.7-12.0 [facility] Comment on above: Performed By: #### C BC #### [facility] [address] [place] [address] Dr. Anna Romero NEUT # 3.3 103/ul Normal 1.4-6.5 [facility] Comment on above: Performed By: #### C BC #### [facility] [address] [place] [address] Dr. Anna Romero Neutrophils/100 WBC (Bld) 62.2 % Normal 43.0-75.0 [facility] Comment on above: Performed By: #### C BC #### [facility] [address] [address] [address] Anna Romero Platelet mean volume (Bld) [Entitic vol] 10.0 fL Normal 9.5-13.5 [facility] Comment on above: Performed By: #### C BC #### [facility] [address] [address] [address] Anna Romero PLT 153 103/ul Normal 150-450 [facility] Comment on above: Performed By: #### C BC #### [facility] [address] [place] [address] Dr. Anna Romero RBC 4.06 106/ul Critically low 4.20-5.40 [facility] Comment on above: Performed By: #### C BC #### [facility] [address] [place] [address] Dr. Anna Romero WBC 5.3 103/ul Normal 4.0-11.0 [facility] Comment on above: Performed By: #### C BC #### [facility] [address] [place] [address] Dr. Anna Romero FREE T3on 03-16-2022 FREE T3 3.18 pg/mlL Normal 2.18-3.98 [facility] Comment on above: Performed By: #### S CARLA GRASTCX #### [facility] [address] [place] [address] Dr. Anna Romero FREE T4on 03-16-2022 Free T4 [Mass/Vol] 1.08 ng/dL Normal 0.76-1.46 [facility] Comment on above: Performed By: #### F T4 #### [facility] [address] [place] [address] Dr. Anna Romero PROF 14(COMP METB)on 022 Albumin [Mass/Vol] 4.3 g/dL Normal 3.4-5.0 [facility] Comment on above: Performed By: #### S CARLA GRASTCX #### [facility] [address] [place] [address] Dr. Anna Romero Albumin/Globulin [Mass ratio] 1.2 {ratio} Normal [facility] Comment on above: Performed By: #### S CARLA GRASTCX #### [facility] [address] [place] [address] Dr. Anna Romero ALP [Catalytic activity/Vol] 60 U/L Normal 46-116 [facility] Comment on above: Performed By: #### S CARLA GRASTCX #### [facility] [address] [place] [address] Dr. Anna Romero ALT [Catalytic activity/Vol] 25 U/L Normal 14-59 [facility] Comment on above: Performed By: #### S CARLA GRASTCX #### [facility] [address] [address] [address] Anna Romero Anion gap [Moles/Vol] 13.8 mmol/L Normal [facility] Comment on above: Performed By: #### S CARLA, GRASTCX #### [facility] [address] [address] [address] Anna Romero AST [Catalytic activity/Vol] 21 U/L Normal 15-37 [facility] Comment on above: Performed By: #### S CARLA GRASTCX #### [facility] [address] [place] [address] Dr. Anna Romero Calcium [Mass/Vol] 9.4 mg/dL Normal 8.5-10.1 [facility] Comment on above: Performed By: #### S CARLA, GRASTCX #### [facility] [address] [place] [address] Dr. Anna Romero Chloride [Moles/Vol] 101 mmol/L Normal 98-107 [facility] Comment on above: Performed By: #### S CARLA, GRASTCX #### [facility] [address] [place] [address] Dr. Anna Romero CO2 [Moles/Vol] 26.8 mmol/L Normal 21.0-32.0 [facility] Comment on above: Performed By: #### S CARLA, GRASTCX #### [facility] [address] [place] [address] Dr. Anna Romero Creatinine [Mass/Vol] 0.87 mg/dL Normal 0.55-1.02 [facility] Comment on above: Performed By: #### S CARLA, GRASTCX #### [facility] [address] [place] [address] Dr. Anna Romero EGFR-AF [place] >60 Normal >=60 [facility] Comment on above: Performed By: #### S CARLA, GRASTCX #### [facility] [address] [address] [address] Anna Romero EGFR-NON AF [place] >60 Normal >=60 [facility] Comment on above: Performed By: #### S SCRN, GRASTCX #### [facility] [address] [address] [address] Anna Romero Globulin (S) [Mass/Vol] 3.5 g/dL Normal [facility] Comment on above: Performed By: #### S SCRN, GRASTCX #### [facility] [address] [address] [address] Anna Romero Glucose [Mass/Vol] 80 mg/dL Normal 74-106 [facility] Comment on above: Performed By: #### S SCRN, GRASTCX #### [facility] [address] [place] [address] Dr. Anna Romero Potassium [Moles/Vol] 3.6 mmol/L Normal 3.5-5.1 [facility] Comment on above: Performed By: #### S SCRN, GRASTCX #### [facility] [address] [address] [address] Anna Romero Protein [Mass/Vol] 7.8 g/dL Normal 6.4-8.2 [facility] Comment on above: Performed By: #### S SCRN, GRASTCX #### [facility] [address] [place] [address] Dr. Anna Romero Sodium [Moles/Vol] 138 mmol/L Normal 136-145 [facility] Comment on above: Performed By: #### S SCRN, GRASTCX #### [facility] [address] [place] [address] Dr. Anna Romero Urea nitrogen [Mass/Vol] 12.0 mg/dL Normal 7.0-18.0 [facility] Comment on above: Performed By: #### S SCRN, GRASTCX #### [facility] [address] [address] [address] Anna Romero Urea nitrogen/Creatinine [Mass ratio] 13.8 mg/mg Normal [facility] Comment on above: Performed By: #### S SCRN, GRASTCX #### [facility] [address] [address] [address] Anna Romero TSHon 03-16-2022 TSH 2.442 uIU/mL Normal 0.358-3.740 [facility] Comment on above: Performed By: #### S SCRN, GRASTCX #### [facility] [address] [place] [address] Dr. Anna Romero TSH RANGE SEE BELOW Normal [facility] Comment on above: Result Comment: <0.3 4 UIU/ml HYPERTHYROID 0.34-5.60 UIU/ml EUTHYROID >5.60 UIU/ml HYPOTHYROID Performed By: #### S SCRN, GRASTCX #### [facility] [address] [place] [address] Dr. Anna Romero Vital Signs Date Time Vital Sign Value Performing Clinician Paolai lity 11-27-2023 14:46-0500 Body mass index (BMI) [Ratio] 25.66 kg/m2 Rosana HAYES Work Phone: [facility] 11-27-2023 14:46-0500 Body weight 72.12 kg Rosana HAYES Work Phone: [facility] 11-27-2023 14:46-0500 Diastolic blood pressure 60 mm[Hg] Rosana HAYES Work Phone: [facility] 11-27-2023 14:46-0500 Systolic blood pressure 102 mm[Hg] Rosana HAYES Work Phone: [facility] 10-16-2023 12:21-0500 Body height 170.2 cm Haseeb Nice MD Work Phone: [facility] 10-16-2023 12:21-0500 Body mass index (BMI) [Ratio] 22.55 kg/m2 Haseeb Nice MD Work Phone: [facility] 10-16-2023 12:21-0500 Body weight 65.32 kg Haseeb Nice MD Work Phone: [facility] [facility] 10-16-2023 12:21-0500 Diastolic blood pressure 66 mm[Hg] Haseeb Nice MD Work Phone: [facility] 10-16-2023 12:21-0500 Heart rate 79 /min Haseeb Nice MD Work Phone: [facility] 10-16-2023 12:21-0500 Systolic blood pressure 109 mm[Hg] Haseeb Nice MD Work Phone: [facility] Encounters Encounter Date Encounter Type Care Provider Facility Start: 01-14-2024 End: 01-14-2024 ambulatory BRIA YOJANA Not Available Start: 12-31-2023 End: 12-31-2023 ambulatory ROSANA GALO [...] Start: 11-19-2023 End: 11-20-2023 ambulatory BRIA R [facility] Start: 10-29-2023 End: 10-30-2023 ambulatory BRIA R [facility] Start: 10-28-2023 End: 10-28-2023 ambulatory BRIA YOJANA Not Available Start: 10-22-2023 Documentation procedure Haseeb Nice MD Work Phone: [facility] Start: 10-22-2023 Telephone encounter Rachelle TREJO [facility] Start: 10-21-2023 Chart abstracting Aliya berger MD Work Phone: [facility] Start: 10-17-2023 Orders Only Robbi Rodriguez UKE DRIVER Mate [facility] Comment on above: History of oligohydr amnios in prior , currently (Primary Dx) Start: 10-16-2023 End: 10-17-2023 ambulatory BRIA BALES [facility] Start: 10-16-2023 End: 10-16-2023 Office outpatient new 45 minutes Hind Darius Nice MD Work Phone: [facility] Comment on above: High-risk in second trimester (Primary Dx); History of oligohydramnios in prior , currently ; 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; 20 weeks gestation of Start: 10-15-2023 Chart abstracting Scanning Pro vider External [facility] Start: 10-08-2023 End: 10-08-2023 ambulatory BRIA BALES [...] (9 - Td or Tdap) [facility] Start: 10-17-2024 End: 10-17-2024 US MFM with or without consult US MFM with or without consult Imaging Routine History of oligohydramnios in prior , currently Expected: 10/17/2024 (Approximate), Expires: 10/17/2024 [facility] Work Phone: Comment on above: Expected: 10/17/2024 (Approximate), Expires: 10/17/2024 Start: 10-16-2024 Adult BMI Screening Adult BMI Screen ing [facility] Start: 10-16-2024 Tobacco Screening Tobacco Screening [facility] Start: 12-11-2023 End: 12-11-2023 Patient encounter procedure 12/11/2023 10:20 AM EST Routine [facility] [address] [place] [id number] Bria Bales, DO [address] [place] [address] [facility] Start: 11-27-2023 End: 11-27-2024 CBC panel - Blood by Automated count CBC Lab Routine Diabetes mellitus screening Expected: 11/27/2023 (Approximate), Expires: 11/27/2024 [facility] Work Phone: Comment on above: Expected: 11/27/2023 (Approximate), Expires: 11/27/2024 Start: 11-27-2023 End: 11-27-2024 Measurement of glucose 1 hour after glucose challenge for glucose tolerance test Glucose tolerance, 1 hour Lab Routine Diabetes mellitus screening Expected: 11/27/2023 (Approximate), Expires: 11/27/2024 [facility] Comment on above: Expected: 11/27/2023 (Approximate), Expires: 11/27/2024 Start: 11-27-2023 End: 11-27-2024 US biophysical profile w non stress test US biophysical profile w non stress test Imaging Routine History of miscarriage History of oligohydramnios Expected: 11/27/2023 (Approximate), Expires: 11/27/2024 [facility] Comment on above: Expected: 11/27/2023 (Approximate), Expires: 11/27/2024 Start: 11-27-2023 End: 11-27-2024 US for US OB SCAN FOR GROWTH Imaging Routine History of miscarriage History of oligohydramnios Expected: 11/27/2023 (Approximate), Expires: 11/27/2024 [facility] Comment on above: Expected: 11/27/2023 (Approximate), Expires: 11/27/2024 Start: 11-19-2023 End: 11-19-2023 Patient encounter procedure 11/19/2023 9:15 AM EST Appointment [facility] [address] [place] [address] [facility] Start: 10-29-2023 End: 10-29-2023 Patient encounter procedure 10/29/2023 9:15 AM EST Appointment [facility] [address] [place] [address] [facility] Start: 10-16-2023 End: 10-16-2023 Patient encounter procedure 10/16/2023 1:00 PM EST Office Visit [facility] [address] [place] [id number] Haseeb Nice MD [address], [address] [place] [address] [facility] Start: 10-16-2023 Subsequent hospital visit by physician 10/16/2023 11:30 AM EST Hospital Encounter [facility] [address] [place] [address] [facility] Start: 06-14-2023 Influenza vaccination Influenza Vacc ine [facility] Start: 2014 Screening for malignant neoplasm of cervix Pap Smear [facility] Start: 2012 DTaP,Tdap and Td Vaccines (1 - Tdap) DTaP,Tdap and Td Vaccines (1 - Tdap) [facility] Start: 2011 Adult BMI Screening Adult BMI Screen ing [facility] Start: 2005 Depression Screening Depression Scre ening [facility] Start: 2005 Tobacco Screening Tobacco Screening [facility] Start: 1993 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 1993 Unknown [id number] 2.16.84 0.1.667991.3.579.2.593 1993 Unknown [id number] 2.16.84 0.1.768773.3.579.2.593 1993 Unknown [id number] 2.16.84 0.1.848448.3.579.2.593 1993 Unknown [id number] 2.16.84 0.1.575626.3.579.2.593 1993 Unknown [id number] 2.16.84 0.1.176432.3.579.2.593 1993 Unknown [id number] 2.16.84 0.1.597518.3.579.2.593 1993 Unknown [id number] 2.16.84 0.1.124725.3.579.2.593 1993 Unknown [id number] 2.16.84 0.1.725669.3.579.2.593 1993 Unknown [id number] 2.16.84 0.1.528014.3.579.2.593 1993 Unknown [id number] 2.16.84 0.1.765631.3.579.2.593 1993 Unknown [id number] 2.16.84 0.1.479346.3.579.2.593 1993 Unknown [id number] 2.16.84 0.1.455785.3.579.2.593 1993 Unknown [id number] 2.16.84 0.1.516706.3.579.2.1286 1993 Unknown [id number] 2.16.84 0.1.794893.3.579.2.1286 1993 Unknown [id number] 2.16.8 40.1.047296.3.579.2.1286 1993 Unknown [id number] 2.16.84 0.1.753336.3.579.2.1286 1993 Unknown [id number] 2.16.84 0.1.499616.3.579.2.1259 1993 Unknown [id number] 2.16.84 0.1.705587.3.579.2.1259 1993 Unknown [id number] 2.16.84 0.1.732526.3.579.2.1259 1993 Unknown [id number] 2.16.84 0.1.247582.3.579.2.1259 1993 Unknown [id number] 2.16.84 0.1.414811.3.579.2.1259 1993 Unknown [id number] 2.16.840 .1.683658.3.579.2.1259 1993 Unknown [id number] 2.16.840 .1.034812.3.579.2.1259 1959 Self-pay [id number] 1959 Unknown [id number] 1959 Unknown [id number] Social History Date Type Detail Facility Start: 10-15-2023 Tobacco smoking status ARIS Tobacco smoking consumption unknown [facility] Start: 03-23-2019 End: 10-16-2023 History of Social function [facility] Start: 03-23-2019 End: 10-16-2023 Housing Instability [facility] Housing Instability Unknown [facility] Start: 06-10-2023 [facility] Start: 1995 Sex Assigned At Not on file [facility] Start: 10-16-2023 Tobacco smoking status ARIS Smokes tobacco daily [facility] History of tobacco use Cigarette Smoker P [facility] Start: 10-16-2023 Tobacco use and exposure Smokeless tobacco non-user [facility] Start: 10-16-2023 End: 10-21-2023 Alcohol intake Ex-drinker (finding) [facility] Start: 1995 Sex Assigned At Female [facility] Start: 08-07-2023 Gender identity Identifies as female gender (finding) [facility] Start: 08-07-2023 Sexual orientation Heterosexual (finding) [facility] Goals Date Patient Goal Desired [...] Past Surgical History: Procedure Laterality Date APPENDECTOMY 2008 No Known Allergies Review of Systems: Review [...] of: ABIGAIL Chinchilla documented in this encounter [facility] 10-22-2023 Miscellaneous Notes Formattin g of this note might be different from the original. Please call us back to schedule an ultrasound next week. documented in this encounter [facility] 10-22-2023 Telephone encount er Note Please call us back to schedule an ultrasound next week. [facility] 10-22-2023 History of Presen t illness [...] hydration. documented in this encounter [facility] 10-16-2023 History of Presen t illness Narrative Headache/epigastric pain/blurry vision/swelling? No Cramping/contractions? No Abnormal vaginal discharge? No Spotting/vaginal bleeding? No Loss of fluid like your water may have broken? No Cats in the home? No Do you change the litter box? N/A Flu vaccine? No Genetic testing done this here or other office? Yes Have you been seen here at [facility] in a previous ? No Recent ER visits or hospitalizations? No Bring blood sugar log or meter with you today? (Please bring them with you for every visit at [facility]) N/A Traveled outside the country in the past 6 month No Any concerns that you would like me to mention to the provider today? No [facility] Medicine Consult Note Reason For [...] Yes Not In System Ref Prov vit no.665-qocy-gqvlb acid ( VITAMIN) 27 mg iron- 800 [...] SARS-CoV-2 infection. This document was created with [employer] technology. Though I make every effort to review the dictation as it is transcribed, on occasion the spoken word can be misinterpreted by the technology leading to inappropriate words, phrases, or sentences. This note is addressed to the requesting provider as a consultation for clinical guidance. Specific medical abbreviations are occasionally used and those are generally approved by the [place]?Board of?Obstetrics and?Gynecology?as well as?James s abbreviations. The above plan of care was based solely on the diagnoses for which a consultation was requested. ?More frequent testing may be indicated based on her other medical/obstetrical conditions. The management of other or medical conditions is beyond the scope of requested consultation and will continue to be followed by the primary controller instructor or primary care provider. Thank you for allowing me to participate in her care. Please contact me if you have any concerns. [facility] Note PROCEDURE: XR SHOULD ER RT 2V or > HISTORY: Impingement syndrome of right shoulder region ; acute right shoulder pain, no known injury COMPARISON: None. FINDINGS: BONES:No fracture, acute abnormality, or significant arthropathy. SOFT TISSUES:No visible soft tissue swelling. EFFUSION:None visible. OTHER: Negative. IMPRESSION: 1. Normal examination. Electronically authenticated by: GENI CABRAL Date: 2022-03-16 18:16 [facility] Evaluation note Diagnosis High-risk in second trimester- Primary History of oligohydramnios in prior , currently with other poor obstetric history 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 20 weeks gestation of [facility] Diagnosis History of oligohydramnios in prior , currently - Primary with other poor obstetric history documented in this encounter [facility]* Diagnosis Second trimester state, incidental with normal glucose tolerance test (GTT) Diabetes mellitus screening Screening for diabetes mellitus History of miscarriage Personal history of other genital system and obstetric disorders History of oligohydramnios documented in this encounter [facility] HealthcareInstructionsNot on filedocumented in this [facility] SystemInstructionsNot on filedocumented in this encounterPro[facility] SystemInstructionsNot on filedocumented in this encounterProUniversity [facility] SystemInstructionsNot on filedocumented in this [facility] Summary Purpose Family History No Family [...] Haseeb Nice MD [address], [address] [place] [id number] [facility] [address] [place] [address] Referral ID Status Reason Start Date Expiration Date V isits Requested Visits Authorized [id number] Pending Review 10/17/2023 10/16/2024 1 1 Additional Source Comments INFORMATION SOURCE (unrecogn ized section and content) DATE CREATED AUTHOR 01/31/2023 [facility] DATE CREATED AUTHOR AUTHOR'S ORGANIZ ATION 10/20/2023 [facility] DATE CREATED AUTHOR AUTHOR'S ORGANIZ ATION 11/24/2023 [facility] DATE CREATED AUTHOR AUTHOR'S ORGANIZ ATION 01/15/2024 [facility] EPIC Reason for Visit [...] BE BASED ON THE PRIMARY CLINICAL RECORDS. [employer] provides no warranty or guarantee of the accuracy or completeness of information in this document.
[2024-01-16 10:13] VITALS: BP 112/59; PULSE 98
== END 2024-01-16 11:00 | disposition home or self-care (01) ==
LOC: FBCO 07:07 → FBC 10:06
PROVIDERS: Visit Provider Obstetrics & Gynecology
DX: O35.8XX0 Maternal care for other (suspected) fetal abnormality and damage, not applicable or unspecified (principal)
CPT/HCPCS: 59025

== ENCOUNTER 2024-01-20 19:06 | Outpatient (OUT) | payer OTHER, SELFPAY ==
--- NOTE | 2024-01-20 19:08 | US_ITS ---
[address] [address] Patient Name: JERAMY SWEENEY MRN: [id number] date: 1995 Sex: F Assigned Patient Location: [facility] Current Patient Location: Accession/Order Number: [id number] Exam Date: 01/20/2024 19:12 Report Date: 01/21/2024 07:13 At the request of: BRIA DIAL Procedure: US OB BPP w non-stress EXAMINATION: US OB BPP w non-stress HISTORY: HISTORY OF MISCARRIAGE Z87.59 COMPARISON: 01/13/2024 TECHNIQUE: Ultrasound biophysical profile was performed in the radiology department. FINDINGS: BREATHING MOVEMENTS: 2.0 GROSS BODY MOVEMENTS: 2.0 TONE: 2.0 QUALITATIVE AMNIOTIC FLUID VOLUME: 2.0 PRESENTATION: CEPHALIC HEART RATE: 136.4 bpm H.B./min AMNIOTIC FLUID VOLUME: 19.5 cm cm GESTATIONAL AGE: 34 weeks 0 days CONCLUSION: Total biophysical profile score: 8.0 Electronically authenticated by: ALFA TEJEDA Date: 01/21/2024 07:13
--- OUTSIDE RECORDS SUMMARY | 2024-01-20 19:09 | XMS_ITS | CCD ---
Author Organization [facility] Care Team Providers Care Deputy Sheriff Building Guard Name Role Phone RUSSELL, DR DEBBIE Mohan [...] ., DR [facility]IS [facility] Unavailable MRACH ., DR [facility]IS [facility] Unavailable [...] for nausea or vomiting. 0 Active vit no.759-qkcv-jyupe acid ( VITAMIN) 27 mg iron- 800 mcg tablet (6 sources) take 1 tablet by mouth in the morning vit no.349-mykr-ghbqy acid ( VITAMIN) 27 mg iron- 800 [...] 01-28-2023 Chronic Other aftercare (1 source) Other rib chopper (current) drug therapy; Translations: [OTH NURSING HOME CURRENT DRUG THERAPY] Onset: 01-23-2023 Episodic Other [...] Negative Negative - 4(70) +++ mg/dL [facility] Blood, UA Negative Negative - 50 Felice/mcL [facility] Clarity, UA Clear [facility] Color, UA Yellow [facility] Glucose, UA Negative Negative - 1999(110) ++++ mg/dL [facility] Interpretation and review of laboratory results Normal [facility] Ketones, UA Negative Negative - 160(16) ++++ mg/dL [facility] Leukocytes, UA Negative Negative - 500+++ Regina/mcL [facility] Nitrite, UA Negative Negative - Positive [facility] pH, UA 5.5 5 - 9 [facility] Protein, UA Negative Negative - 1999(20) ++++ mg/dL [facility] Spec Grav, UA 1.030 1 - 1.03 [facility] Urobilinogen, UA 0.2 0.2 - 12 mg/dL [facility] PREG QUANT HCGon 01-28-2023 HCG QUANT 17 mIU/mL Normal [facility] Comment on above: Performed By: #### P REGQNT #### [facility] [address] [address] [address] Anna Romero HCG RANGE SEE BELOW Normal [facility] Comment on above: Result Comment: 5-50 0.2-1 WEEK 50-500 1-2 WEEKS 100-5,000 2-3 WEEKS 500-10,000 3-4 WEEKS 1,000-50,000 4-5 WEEKS 10,000-100,000 5-6 WEEKS 15,000-200,000 6-8 WEEKS 10,000-100,000 2-3 MONTHS Performed By: #### P REGQNT #### [facility] [address] [place] [address] Dr. Anna Romero PREG QUANT HCGon 01-23-2023 HCG QUANT 441 mIU/mL Normal [facility] Comment on above: Performed By: #### S SCRN, GRASTCX #### [facility] [address] [place] [address] Dr. Anna Romero HCG RANGE SEE BELOW Normal [facility] Comment on above: Result Comment: 5-50 0.2-1 WEEK 50-500 1-2 WEEKS 100-5,000 2-3 WEEKS 500-10,000 3-4 WEEKS 1,000-50,000 4-5 WEEKS 10,000-100,000 5-6 WEEKS 15,000-200,000 6-8 WEEKS 10,000-100,000 2-3 MONTHS Performed By: #### S SCRN, GRASTCX #### [facility] [address] [place] [address] Dr. Anna Romero ABO AND RH TYPEon 01-21-2023 ABO and Rh group Nom (Bld) ABO Rh Typing A Rh Positive Normal [facility] Comment on above: Performed By: #### S SCRN, GRASTCX #### [facility] [address] [place] [address] Dr. Anna Romero ER URINE PROFILEon 3 Bilirubin Ql (U) Negative Normal NEGATIVE [facility] Comment on above: Performed By: #### JD URIASRO #### [facility] [address] [place] [address] Dr. Anna Romero Clarity (U) CLEAR Normal CLEAR [facility] Comment on above: Performed By: #### Yared BARBOSA UMICRO #### [facility] [address] [place] [address] Dr. Anna Romero Color (U) YELLOW Normal YELLOW [facility] Comment on above: Performed By: #### Yared BARBOSA UMICRO #### [facility] [address] [address] [address] Anna BAER A micrscopic examination will be performed if indicated. Normal [facility] Comment on above: Performed By: #### Yared BARBOSA UMICRO #### [facility] [address] [address] [address] Anna Romero Glucose Ql (U) Negative Normal NEGATIVE [facility] Comment on above: Performed By: #### Yared BARBOSA UMICRO #### [facility] [address] [place] [address] Dr. Anna Romero Hemoglobin Ql (U) LARGE Abnormal NEGATIVE [facility] Comment on above: Performed By: #### Yared BARBOSA UMICRO #### [facility] [address] [place] [address] Dr. Anna Romero Ketones Ql (U) Negative Normal NEGATIVE [facility] Comment on above: Performed By: #### Yared BARBOSA UMICRO #### [facility] [address] [place] [address] Dr. Anna Romero LEUKOCYTES Negative Normal NEGATIVE [facility] Comment on above: Performed By: #### Yared BARBOSA UMICRO #### [facility] [address] [place] [address] Dr. Anna Romero Nitrite Ql (U) Negative Normal NEGATIVE [facility] Comment on above: Performed By: #### Yared BARBOSA UMICRO #### [facility] [address] [place] [address] Dr. Anna Romero pH (U) 5.5 [pH] Normal 5-9 [facility] Comment on above: Performed By: #### Yared BARBOSA UMICRO #### [facility] [address] [place] [address] Dr. Anna Romero SPEC GRAVITY >=1.030 Abnormal 1.005-<=1.025 [facility] Comment on above: Performed By: #### Yared BARBOSA UMICRO #### [facility] [address] [place] [address] Dr. Anna Romero UA PROTEIN TRACE Normal NEGATIVE/ TRACE [facility] Comment on above: Performed By: #### JD URIASRO #### [facility] [address] [place] [address] Dr. Anna Romero UR MICRO IND INDICATED Normal [facility] Comment on above: Performed By: #### JD URIASRO #### [facility] [address] [place] [address] Dr. Anna Romero Urobilinogen Qn (U) 0.2 {Joel'U}/dL Normal 0.2 - 1. 0 [facility] Comment on above: Performed By: #### JD URIASRO #### [facility] [address] [place] [address] Dr. Anna Romero PREG QUANT HCGon 01-21-2023 HCG QUANT 1693 mIU/mL Normal [facility] Comment on above: Performed By: #### S DAT AGUIRRETCX #### [facility] [address] [place] [address] Dr. Anna Romero HCG RANGE SEE BELOW Normal [facility] Comment on above: Result Comment: 5-50 0.2-1 WEEK 50-500 1-2 WEEKS 100-5,000 2-3 WEEKS 500-10,000 3-4 WEEKS 1,000-50,000 4-5 WEEKS 10,000-100,000 5-6 WEEKS 15,000-200,000 6-8 WEEKS 10,000-100,000 2-3 MONTHS Performed By: #### S CARLA GRASTCX #### [facility] [address] [place] [address] Dr. Anna Romero URINE MICROSCOPIC ONLYon BACTERIA TRACE Abnormal NONE SEEN [facility] Comment on above: Performed By: #### JD URIASRO #### [facility] [address] [place] [address] Dr. Anna Romero Bacteria identified Cx Nom (U) NOT INDICATED Normal [facility] Comment on above: Performed By: #### E RUR, UMICRO #### [facility] [address] [place] [address] Dr. Anna Romero CAST NONE SEEN Normal NONE SEEN [facility] Comment on above: Performed By: #### Yared BARBOSA UMICRO #### [facility] [address] [place] [address] Dr. Anna Romero Crystals LM Nom (Urine sed) NONE SEEN Normal NONE SEEN [facility] Comment on above: Performed By: #### Yared BARBOSA UMICRO #### [facility] [address] [place] [address] Dr. Anna Romero Epithelial cells LM Ql (Urine sed) RARE Normal NONE SEEN /RARE [facility] Comment on above: Performed By: #### Yared BARBOSA UMICRO #### [facility] [address] [place] [address] Dr. Anna Romero MUCOUS TRACE Abnormal NONE SEEN [facility] Comment on above: Performed By: #### Yared BARBOSA UMICRO #### [facility] [address] [place] [address] Dr. Anna Romero RBC 2-5 Abnormal 0-2 [facility] Comment on above: Performed By: #### Yared BARBOSA UMICRO #### [facility] [address] [place] [address] Dr. Anna Romero WBC 0-2 Abnormal NONE SEEN [facility] Comment on above: Performed By: #### Yared BARBOSA UMRUBENRO #### [facility] [address] [place] [address] Dr. Anna Romero US PREG TVon 01-21-2023 [...] LUDWIG JEAN BAPTISTE Date: 2023-01-21 16:54 Normal [facility] ER URINE PROFILEon 3 Bilirubin Ql (U) Negative Normal NEGATIVE [facility] Comment on above: Performed By: #### E RUR #### [facility] [address] [place] [address] Dr. Anna Romero Clarity (U) CLEAR Normal CLEAR [facility] Comment on above: Performed By: #### E RUR #### [facility] [address] [place] [address] Dr. Anna Romero Color (U) YELLOW Normal YELLOW [facility] Comment on above: Performed By: #### E RUR #### [facility] [address] [place] [address] Dr. Anna Romero ERUAHD A micrscopic examination will be performed if indicated. Normal [facility] Comment on above: Performed By: #### E RUR #### [facility] [address] [place] [address] Dr. Anna Romero Glucose Ql (U) Negative Normal NEGATIVE [facility] Comment on above: Performed By: #### E RUR #### [facility] [address] [place] [address] Dr. Anna Romero Hemoglobin Ql (U) Negative Normal NEGATIVE [facility] Comment on above: Performed By: #### E RUR #### [facility] [address] [place] [address] Dr. Anna Romero Ketones Ql (U) Negative Normal NEGATIVE [facility] Comment on above: Performed By: #### E RUR #### [facility] [address] [place] [address] Dr. Anna Romero LEUKOCYTES Negative Normal NEGATIVE [facility] Comment on above: Performed By: #### E RUR #### [facility] [address] [place] [address] Dr. Anna Romero Nitrite Ql (U) Negative Normal NEGATIVE [facility] Comment on above: Performed By: #### E RUR #### [facility] [address] [place] [address] Dr. Anna Romero pH (U) 6.5 [pH] Normal 5-9 [facility] Comment on above: Performed By: #### E RUR #### [facility] [address] [place] [address] Dr. Anna Romero SPEC GRAVITY 1.025 Normal 1.005-<=1.025 [facility] Comment on above: Performed By: #### E RUR #### [facility] [address] [place] [address] Dr. Anna Romero UA PROTEIN TRACE Normal NEGATIVE/ TRACE [facility] Comment on above: Performed By: #### E RUR #### [facility] [address] [place] [address] Dr. Anna Romero UR MICRO IND NOT INDICATED Normal [facility] Comment on above: Performed By: #### E RUR #### [facility] [address] [place] [address] Dr. Anna Romero Urobilinogen Qn (U) 0.2 {Joel'U}/dL Normal 0.2 - 1. 0 [facility] Comment on above: Performed By: #### E RUR #### [facility] [address] [address] [address] Anna Romero GROUP A STREP CULTUREon 12-13 S. pyogenes Ag Ql (Unsp spec) Culture Observations: NEGATIVE FOR GROUP A STREPTOCOCCUS. Normal [facility] Comment on above: Performed By: #### S MOISEN, GRASTCX #### [facility] [address] [address] [address] Anna Romero STREPT SCREENon 01-08-2023 STREP SCREEN A Negative Normal NEGATIVE [facility] Comment on above: Performed By: #### S SCRN, GRASTCX #### [facility] [address] [address] [address] Anna Romero SYMPTOMATIC COVID-19 ANTIGEN on 01-08-2023 EUA Statement SEE BELOW Normal [facility] Comment on above: Result Comment: This test [...] By: #### S MOISEN, GRASTCX #### [facility] [address] [place] [address] Dr. Anna Romero SARS-CoV-2 (COVID-19) RNA DAVY+probe Ql (Unsp spec) Positive Abnormal NEGATIVE [facility] Comment on above: Performed By: #### S MOISEN, GRASTCX #### [facility] [address] [place] [address] Dr. Anna Romero US PREG TVon 05-31-2022 [...] CABRAL Date: 2022-05-31 19:46 Normal [facility] BILIRUBIN TOTALon 03-16-2022 Bilirubin [Mass/Vol] 0.3 mg/dL Normal 0.2-1.0 [facility] Comment on above: Performed By: #### T DALE #### [facility] [address] [place] [address] Dr. Anna Romero CBC AUTO DIFFon 03-16-2022 BASO # 0.0 103/ul Normal 0.0-0.1 [facility] Comment on above: Performed By: #### C BC #### [facility] [address] [place] [address] Dr. Anna Romero Basophils/100 WBC (Bld) 0.4 % Normal 0.2-2.0 [facility] Comment on above: Performed By: #### C BC #### [facility] [address] [place] [address] Dr. Anna Romero EO # 0.0 103/ul Normal 0.0-0.7 [facility] Comment on above: Performed By: #### C BC #### [facility] [address] [place] [address] Dr. Anna Romero Eosinophils/100 WBC (Bld) 0.2 % Critically low 0.9-7.0 [facility] Comment on above: Performed By: #### C BC #### [facility] [address] [place] [address] Dr. Anna Romero Erythrocyte distribution width (RBC) [Ratio] 12.8 % Normal 11.0-15.0 [facility] Comment on above: Performed By: #### C BC #### [facility] [address] [place] [address] Dr. Anna Romero Hematocrit (Bld) [Volume fraction] 39.2 % Normal 36.0-48.0 [facility] Comment on above: Performed By: #### C BC #### [facility] [address] [place] [address] Dr. Anna Romero Hemoglobin (Bld) [Mass/Vol] 12.9 g/dL Normal 12.0-16.0 [facility] Comment on above: Performed By: #### C BC #### [facility] [address] [place] [address] Dr. Anna Romero IG # 0.01 10e3/ul Normal 0.00-0.03 [facility] Comment on above: Performed By: #### C BC #### [facility] [address] [place] [address] Dr. Anna Romero IG % 0.2 % Normal 0.0-0.5 [facility] Comment on above: Performed By: #### C BC #### [facility] [address] [place] [address] Dr. Anna Romero LYMPH # 1.6 103/ul Normal 1.2-3.8 [facility] Comment on above: Performed By: #### C BC #### [facility] [address] [place] [address] Dr. Anna Romero Lymphocytes/100 WBC (Bld) 29.8 % Normal 20.5-60.0 [facility] Comment on above: Performed By: #### C BC #### [facility] [address] [place] [address] Dr. Anna Romero MANUAL DIFF REQ NO Normal [facility] Comment on above: Performed By: #### C BC #### [facility] [address] [place] [address] Dr. Anna Romero MCH (RBC) [Entitic mass] 31.8 pg Normal 26.7-34.0 [facility] Comment on above: Performed By: #### C BC #### [facility] [address] [address] [address] Anna Romero MCHC (RBC) [Mass/Vol] 32.9 g/dL Normal 29.9-35.2 [facility] Comment on above: Performed By: #### C BC #### [facility] [address] [address] [address] Anna Romero MCV (RBC) [Entitic vol] 96.6 fL Normal 81.0-99.0 [facility] Comment on above: Performed By: #### C BC #### [facility] [address] [place] [address] Dr. Anna Romero MONO # 0.4 103/ul Normal 0.3-0.8 [facility] Comment on above: Performed By: #### C BC #### [facility] [address] [place] [address] Dr. Anna Romero Monocytes/100 WBC (Bld) 7.2 % Normal 1.7-12.0 [facility] Comment on above: Performed By: #### C BC #### [facility] [address] [place] [address] Dr. Anna Romero NEUT # 3.3 103/ul Normal 1.4-6.5 [facility] Comment on above: Performed By: #### C BC #### [facility] [address] [place] [address] Dr. Anna Romero Neutrophils/100 WBC (Bld) 62.2 % Normal 43.0-75.0 [facility] Comment on above: Performed By: #### C BC #### [facility] [address] [address] [address] Anna Romero Platelet mean volume (Bld) [Entitic vol] 10.0 fL Normal 9.5-13.5 [facility] Comment on above: Performed By: #### C BC #### [facility] [address] [address] [address] Anna Romero PLT 153 103/ul Normal 150-450 [facility] Comment on above: Performed By: #### C BC #### [facility] [address] [place] [address] Dr. Anna Romero RBC 4.06 106/ul Critically low 4.20-5.40 [facility] Comment on above: Performed By: #### C BC #### [facility] [address] [place] [address] Dr. Anna Romero WBC 5.3 103/ul Normal 4.0-11.0 [facility] Comment on above: Performed By: #### C BC #### [facility] [address] [place] [address] Dr. Anna Romero FREE T3on 03-16-2022 FREE T3 3.18 pg/mlL Normal 2.18-3.98 [facility] Comment on above: Performed By: #### S CARLA GRASTCX #### [facility] [address] [place] [address] Dr. Anna Romero FREE T4on 03-16-2022 Free T4 [Mass/Vol] 1.08 ng/dL Normal 0.76-1.46 [facility] Comment on above: Performed By: #### F T4 #### [facility] [address] [place] [address] Dr. Anna Romero PROF 14(COMP METB)on 022 Albumin [Mass/Vol] 4.3 g/dL Normal 3.4-5.0 [facility] Comment on above: Performed By: #### S CARLA GRASTCX #### [facility] [address] [place] [address] Dr. Anna Romero Albumin/Globulin [Mass ratio] 1.2 {ratio} Normal [facility] Comment on above: Performed By: #### S CARLA GRASTCX #### [facility] [address] [place] [address] Dr. Anna Romero ALP [Catalytic activity/Vol] 60 U/L Normal 46-116 [facility] Comment on above: Performed By: #### S CARLA GRASTCX #### [facility] [address] [place] [address] Dr. Anna Romero ALT [Catalytic activity/Vol] 25 U/L Normal 14-59 [facility] Comment on above: Performed By: #### S CARLA GRASTCX #### [facility] [address] [address] [address] Anna Romero Anion gap [Moles/Vol] 13.8 mmol/L Normal [facility] Comment on above: Performed By: #### S CARLA, GRASTCX #### [facility] [address] [address] [address] Anna Romero AST [Catalytic activity/Vol] 21 U/L Normal 15-37 [facility] Comment on above: Performed By: #### S CARLA GRASTCX #### [facility] [address] [place] [address] Dr. Anna Romero Calcium [Mass/Vol] 9.4 mg/dL Normal 8.5-10.1 [facility] Comment on above: Performed By: #### S CARLA, GRASTCX #### [facility] [address] [place] [address] Dr. Anna Romero Chloride [Moles/Vol] 101 mmol/L Normal 98-107 [facility] Comment on above: Performed By: #### S CARLA, GRASTCX #### [facility] [address] [place] [address] Dr. Anna Romero CO2 [Moles/Vol] 26.8 mmol/L Normal 21.0-32.0 [facility] Comment on above: Performed By: #### S CARLA, GRASTCX #### [facility] [address] [place] [address] Dr. Anna Romero Creatinine [Mass/Vol] 0.87 mg/dL Normal 0.55-1.02 [facility] Comment on above: Performed By: #### S CARLA, GRASTCX #### [facility] [address] [place] [address] Dr. Anna Romero EGFR-AF MAURITANIAN >60 Normal >=60 [facility] Comment on above: Performed By: #### S CARLA, GRASTCX #### [facility] [address] [address] [address] Anna Romero EGFR-NON AF MAURITANIAN >60 Normal >=60 [facility] Comment on above: Performed By: #### S SCRN, GRASTCX #### [facility] [address] [address] [address] Anna Romero Globulin (S) [Mass/Vol] 3.5 g/dL Normal [facility] Comment on above: Performed By: #### S SCRN, GRASTCX #### [facility] [address] [address] [address] Anna Romero Glucose [Mass/Vol] 80 mg/dL Normal 74-106 [facility] Comment on above: Performed By: #### S SCRN, GRASTCX #### [facility] [address] [place] [address] Dr. Anna Romero Potassium [Moles/Vol] 3.6 mmol/L Normal 3.5-5.1 [facility] Comment on above: Performed By: #### S SCRN, GRASTCX #### [facility] [address] [address] [address] Anna Romero Protein [Mass/Vol] 7.8 g/dL Normal 6.4-8.2 [facility] Comment on above: Performed By: #### S SCRN, GRASTCX #### [facility] [address] [place] [address] Dr. Anna Romero Sodium [Moles/Vol] 138 mmol/L Normal 136-145 [facility] Comment on above: Performed By: #### S SCRN, GRASTCX #### [facility] [address] [place] [address] Dr. Anna Romero Urea nitrogen [Mass/Vol] 12.0 mg/dL Normal 7.0-18.0 [facility] Comment on above: Performed By: #### S SCRN, GRASTCX #### [facility] [address] [address] [address] Anna Romero Urea nitrogen/Creatinine [Mass ratio] 13.8 mg/mg Normal [facility] Comment on above: Performed By: #### S SCRN, GRASTCX #### [facility] [address] [address] [address] Anna Romero TSHon 03-16-2022 TSH 2.442 uIU/mL Normal 0.358-3.740 [facility] Comment on above: Performed By: #### S SCRN, GRASTCX #### [facility] [address] [place] [address] Dr. Anna Romero TSH RANGE SEE BELOW Normal [facility] Comment on above: Result Comment: <0.3 4 UIU/ml HYPERTHYROID 0.34-5.60 UIU/ml EUTHYROID >5.60 UIU/ml HYPOTHYROID Performed By: #### S SCRN, GRASTCX #### [facility] [address] [place] [address] Dr. Anna Romero Vital Signs Date Time Vital Sign Value Performing Clinician Paolai lity 11-27-2023 14:46-0500 Body mass index (BMI) [Ratio] 25.66 kg/m2 Rosana HAYES Work Phone: [facility] 11-27-2023 14:46-0500 Body weight 72.12 kg Rosana HAYES Work Phone: [facility] 11-27-2023 14:46-0500 Diastolic blood pressure 60 mm[Hg] Rosana HAYES Work Phone: [facility] 11-27-2023 14:46-0500 Systolic blood pressure 102 mm[Hg] Rosana HAYES Work Phone: [facility] 10-16-2023 12:21-0500 Body height 170.2 cm Haseeb Nice MD Work Phone: [facility] 10-16-2023 12:21-0500 Body mass index (BMI) [Ratio] 22.55 kg/m2 Haseeb Nice MD Work Phone: [facility] 10-16-2023 12:21-0500 Body weight 65.32 kg Haseeb Nice MD Work Phone: [facility] 10-16-2023 12:21-0500 Diastolic blood pressure 66 mm[Hg] Haseeb Nice MD Work Phone: [facility] 10-16-2023 12:21-0500 Heart rate 79 /min Haseeb Nice MD Work Phone: [facility] 10-16-2023 12:21-0500 Systolic blood pressure 109 mm[Hg] Haseeb Nice MD Work Phone: [facility] Encounters Encounter Date Encounter Type Care [...] Start: 11-19-2023 End: 11-20-2023 ambulatory [facility] Start: 10-29-2023 End: 10-30-2023 ambulatory [facility] Start: 10-28-2023 End: 10-28-2023 ambulatory BRIA YOJANA Not Available Start: 10-22-2023 Documentation procedure Haseeb Nice MD Work Phone: [facility] Start: 10-22-2023 Telephone encounter Rachelle TREJO [facility] Start: 10-21-2023 Chart abstracting Aliya berger MD Work Phone: [facility] Start: 10-17-2023 Orders Only Robbi Rodriguez RETAIL CONSULTANT [facility] Comment on above: History of oligohydr amnios in prior , currently (Primary Dx) Start: 10-16-2023 End: 10-17-2023 ambulatory BRIA BALES [facility] Start: 10-16-2023 End: 10-16-2023 Office outpatient new 45 minutes Hind Darius Nice MD Work Phone: [facility] Comment on above: High-risk in second trimester (Primary Dx); History of oligohydramnios in prior , currently ; 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; 20 weeks gestation of Start: 10-15-2023 Chart abstracting Scanning Pro vider External [facility] Start: 10-08-2023 End: 10-08-2023 ambulatory BRIA BALES Not Available Start: 09-09-2023 End: 09-09-2023 ambulatory ROSANA GAOL Not Available Start: 01-28-2023 End: 01-29-2023 ambulatory [...] Td Vaccines (9 - Td or Tdap) [facility] Start: 10-17-2024 End: 10-17-2024 US MFM with or without consult US MFM with or without consult Imaging Routine History of oligohydramnios in prior , currently Expected: 10/17/2024 (Approximate), Expires: 10/17/2024 [facility] Work Phone: Comment on above: Expected: 10/17/2024 (Approximate), Expires: 10/17/2024 Start: 10-16-2024 Adult BMI Screening Adult BMI Screen ing [facility] Start: 10-16-2024 Tobacco Screening Tobacco Screening [facility] Start: 12-11-2023 End: 12-11-2023 Patient encounter procedure 12/11/2023 10:20 AM EST Routine [facility] [address] [place] [id number] Bria Bales, DO [address] [place] [address] [facility] Start: 11-27-2023 End: 11-27-2024 CBC panel - Blood by Automated count CBC Lab Routine Diabetes mellitus screening Expected: 11/27/2023 (Approximate), Expires: 11/27/2024 [facility] Work Phone: Comment on above: Expected: 11/27/2023 (Approximate), Expires: 11/27/2024 Start: 11-27-2023 End: 11-27-2024 Measurement of glucose 1 hour after glucose challenge for glucose tolerance test Glucose tolerance, 1 hour Lab Routine Diabetes mellitus screening Expected: 11/27/2023 (Approximate), Expires: 11/27/2024 [facility] Comment on above: Expected: 11/27/2023 (Approximate), Expires: 11/27/2024 Start: 11-27-2023 End: 11-27-2024 US biophysical profile w non stress test US biophysical profile w non stress test Imaging Routine History of miscarriage History of oligohydramnios Expected: 11/27/2023 (Approximate), Expires: 11/27/2024 [facility] Comment on above: Expected: 11/27/2023 (Approximate), Expires: 11/27/2024 Start: 11-27-2023 End: 11-27-2024 US for US OB SCAN FOR GROWTH Imaging Routine History of miscarriage History of oligohydramnios Expected: 11/27/2023 (Approximate), Expires: 11/27/2024 [facility] Comment on above: Expected: 11/27/2023 (Approximate), Expires: 11/27/2024 Start: 11-19-2023 End: 11-19-2023 Patient encounter procedure 11/19/2023 9:15 AM EST Appointment [facility] [address] [place] [address] [facility] Start: 10-29-2023 End: 10-29-2023 Patient encounter procedure 10/29/2023 9:15 AM EST Appointment [facility] [address] [place] [address] [facility] Start: 10-16-2023 End: 10-16-2023 Patient encounter procedure 10/16/2023 1:00 PM EST Office Visit [facility] [address] [place] [id number] Haseeb Nice MD [address], [address] [place] [id number] [facility] Start: 10-16-2023 Subsequent hospital visit by physician 10/16/2023 11:30 AM EST Hospital Encounter [facility] [address] [place] [address] [facility] Start: 06-14-2023 Influenza vaccination Influenza Vacc ine [facility] Start: 2014 Screening for malignant neoplasm of cervix Pap Smear [facility] Start: 2012 DTaP,Tdap and Td Vaccines (1 - Tdap) DTaP,Tdap and Td Vaccines (1 - Tdap) [facility] Start: 2011 Adult BMI Screening Adult BMI Screen ing [facility] Start: 2005 Depression Screening Depression Scre ening [facility] Start: 2005 Tobacco Screening Tobacco Screening [facility] Start: 1993 Tobacco Counseling Tobacco Counselin g [facility] Payers Date Payer Category Payer Medicaid [id number] 1993 Unknown [id number] 2.16.84 0.1.464658.3.579.2.593 1993 Unknown [id number] 2.16.84 0.1.740618.3.579.2.593 1993 Unknown [id number] 2.16.84 0.1.836547.3.579.2.593 1993 Unknown [id number] 2.16.84 0.1.552502.3.579.2.593 1993 Unknown [id number] 2.16.84 0.1.120768.3.579.2.593 1993 Unknown [id number] 2.16.84 0.1.132613.3.579.2.593 1993 Unknown [id number] 2.16.84 0.1.180156.3.579.2.593 1993 Unknown [id number] 2.16.84 0.1.135480.3.579.2.593 1993 Unknown [id number] 2.16.84 0.1.936116.3.579.2.593 1993 Unknown [id number] 2.16.84 0.1.805065.3.579.2.593 1993 Unknown [id number] 2.16.84 0.1.970059.3.579.2.593 1993 Unknown [id number] 2.16.84 0.1.954380.3.579.2.593 1993 Unknown [id number] 2.16.84 0.1.356327.3.579.2.1286 1993 Unknown [id number] 2.16.84 0.1.043229.3.579.2.1286 1993 Unknown [id number] 2.16.8 40.1.567822.3.579.2.1286 1993 Unknown [id number] 2.16.84 0.1.597323.3.579.2.1286 1993 Unknown [id number] 2.16.84 0.1.362614.3.579.2.1259 1993 Unknown [id number] 2.16.84 0.1.965099.3.579.2.1259 1993 Unknown [id number] 2.16.84 0.1.593142.3.579.2.1259 1993 Unknown [id number] 2.16.84 0.1.036505.3.579.2.1259 1993 Unknown [id number] 2.16.84 0.1.729795.3.579.2.1259 1993 Unknown [id number] 2.16.840 .1.071301.3.579.2.1259 1993 Unknown [id number] 2.16.840 .1.962741.3.579.2.1259 1959 Self-pay [id number] 1959 Unknown [id number] 1961 Unknown [id number] Social History Date Type Detail Facility Start: 10-15-2023 Tobacco smoking status COIS Tobacco smoking consumption unknown [facility] Start: 03-23-2019 End: 10-16-2023 History of Social function [facility] Start: 03-23-2019 End: 10-16-2023 Housing Instability [facility] Housing Instability Unknown [facility] Start: 06-10-2023 [facility] Start: 1995 Sex Assigned At Not on file [facility] Start: 10-16-2023 Tobacco smoking status COIS Smokes tobacco daily [facility] History of tobacco use Cigarette Smoker P [facility] Start: 10-16-2023 Tobacco use and exposure Smokeless tobacco non-user [facility] Start: 10-16-2023 End: 10-21-2023 Alcohol intake Ex-drinker (finding) [facility] Start: 1995 Sex Assigned At Female [facility] Start: 08-07-2023 Gender identity Identifies as female gender (finding) [facility] Start: 08-07-2023 Sexual orientation Heterosexual (finding) [facility] Goals Date Patient Goal [...] Documented by ABIGAIL Chinchilla on behalf of: ABGIAIL Chinchilla documented in this encounter [facility] 10-22-2023 Miscellaneous Notes Formattin g of this note might be different from the original. Please call us back to schedule an ultrasound next week. [facility] 10-22-2023 Telephone encount er Note Please call us back to schedule an ultrasound next week. [facility] 10-22-2023 History of Presen t illness [...] increase p.o. hydration. documented in this encounter [facility] 10-16-2023 History of Presen t illness Narrative Headache/epigastric pain/blurry vision/swelling? No Cramping/contractions? No Abnormal vaginal discharge? No Spotting/vaginal bleeding? No Loss of fluid like your water may have broken? No Cats in the home? No Do you change the litter box? N/A Flu vaccine? No Genetic testing done this here or other office? Yes Have you been seen here at [facility] in a previous ? No Recent ER visits or hospitalizations? No Bring blood sugar log or meter with you today? (Please bring them with you for every visit at [facility]) N/A Traveled outside the country in the past 6 month No Any concerns that you would like me to mention to the provider today? No [facility] Maternal- Medicine Consult Note Reason For [...] Yes Not In System Ref Prov vit no.391-text-dfpaj acid ( VITAMIN) 27 mg iron- 800 [...] continue with routine care in your office [facility], the CDC, and other organizations representing maternal and public health professionals recommend that , , and lactating people and those considering receive the COVID-19 vaccination. Vaccination is the best method to reduce maternal and complications of SARS-CoV-2 infection. This document was created with [employer] technology. Though I make every effort to [...] continue to be followed by the primary deputy sheriff court services or primary care provider. Thank you for allowing me to participate in her care. Please contact me if you have any concerns. documented [facility] this [facility] Note PROCEDURE: XR SHOULD ER RT 2V or > HISTORY: Impingement syndrome of right shoulder region ; acute right shoulder pain, no known injury COMPARISON: None. FINDINGS: BONES:No fracture, acute abnormality, or significant arthropathy. SOFT TISSUES:No visible soft tissue swelling. EFFUSION:None visible. OTHER: Negative. IMPRESSION: 1. Normal examination. Electronically authenticated by: GENI CABRAL Date: 2022-03-16 18:16 [facility] Evaluation note Diagnosis High-risk in second trimester- Primary History of oligohydramnios in prior , currently with other poor obstetric history 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 20 weeks gestation of [facility] History of oligohydramnios in prior , currently - Primary with other poor obstetric history documented in this encounter [facility]* Diagnosis Second trimester state, incidental with normal glucose tolerance test (GTT) Diabetes mellitus screening Screening for diabetes mellitus History of miscarriage Personal history of other genital system and obstetric disorders History of oligohydramnios documented in this encounter [facility] HealthcareInstructionsNot on filedocumented in this encounter[facility] SystemInstructionsNot on filedocumented in this encounterPro[facility] SystemInstructionsNot on filedocumented in this encounterProPromedica [facility] SystemInstructionsNot on filedocumented in this encounterWilson [facility] Summary Purpose Family History No [...] Haseeb Nice MD [address], [address] [place] [id number] [facility] [address] [place] [address] Referral ID Status Reason Start Date Expiration Date V isits Requested Visits Authorized [id number] Pending Review 10/17/2023 10/16/2024 1 1 Additional Source Comments INFORMATION SOURCE (unrecogn ized section and content) DATE CREATED AUTHOR 01/31/2023 [facility] DATE CREATED AUTHOR AUTHOR'S ORGANIZ ATION 10/20/2023 [facility] DATE CREATED AUTHOR AUTHOR'S ORGANIZ ATION 11/24/2023 [facility] DATE CREATED AUTHOR AUTHOR'S ORGANIZ ATION 01/15/2024 [facility] EPIC Reason for Visit (unrecogniz [...] BE BASED ON THE PRIMARY CLINICAL RECORDS. [employer] provides no warranty or guarantee of the accuracy or completeness of information in this document.
[2024-01-20 19:46] VITALS: BP 110/63; PULSE 93
== END 2024-01-20 20:08 | disposition home or self-care (01) ==
LOC: US 19:06 → FBC 19:09
PROVIDERS: Visit Provider Obstetrics & Gynecology
DX: Z87.59 Personal history of other complications of pregnancy, childbirth and the puerperium (principal); Z3A.34 34 weeks gestation of pregnancy
CPT/HCPCS: 76818

== ENCOUNTER 2024-01-27 05:25 | Outpatient (OUT) | payer OTHER, SELFPAY ==
--- OUTSIDE RECORDS SUMMARY | 2024-01-27 05:51 | XMS_ITS | CCD ---
Author Organization [facility] Care Team Providers Care Screen Tacker Name Role Phone RUSSELL, DR DEBBIE Mohan [...] for nausea or vomiting. 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] Onset: 01-23-2023 Episodic Other [...] Negative Negative - 4(70) +++ mg/dL [facility] Blood, UA Negative Negative - 50 Felice/mcL [facility] Clarity, UA Clear [facility] Color, UA Yellow [facility] Glucose, UA Negative Negative - 1999(110) ++++ mg/dL [facility] Interpretation and review of laboratory results Normal [facility] Ketones, UA Negative Negative - 160(16) ++++ mg/dL [facility] Leukocytes, UA Negative Negative - 500+++ Regina/mcL [facility] Nitrite, UA Negative Negative - Positive [facility] pH, UA 5.5 5 - 9 [facility] Protein, UA Negative Negative - 1999(20) ++++ mg/dL [facility] Spec Grav, UA 1.030 1 - 1.03 [facility] Urobilinogen, UA 0.2 0.2 - 12 mg/dL [facility] PREG QUANT HCGon 01-28-2023 HCG QUANT 17 mIU/mL Normal [facility] Comment on above: Performed By: #### P REGQNT #### [facility] [address] [address] [address] Anna Romero HCG RANGE SEE BELOW Normal [facility] Comment on above: Result Comment: 5-50 0.2-1 WEEK 50-500 1-2 WEEKS 100-5,000 2-3 WEEKS 500-10,000 3-4 WEEKS 1,000-50,000 4-5 WEEKS 10,000-100,000 5-6 WEEKS 15,000-200,000 6-8 WEEKS 10,000-100,000 2-3 MONTHS Performed By: #### P REGQNT #### [facility] [address] [place] [address] Dr. Anna Romero PREG QUANT HCGon 01-23-2023 HCG QUANT 441 mIU/mL Normal [facility] Comment on above: Performed By: #### S SCRN, GRASTCX #### [facility] [address] [place] [address] Dr. Anna Romero HCG RANGE SEE BELOW Normal [facility] Comment on above: Result Comment: 5-50 0.2-1 WEEK 50-500 1-2 WEEKS 100-5,000 2-3 WEEKS 500-10,000 3-4 WEEKS 1,000-50,000 4-5 WEEKS 10,000-100,000 5-6 WEEKS 15,000-200,000 6-8 WEEKS 10,000-100,000 2-3 MONTHS Performed By: #### S SCRN, GRASTCX #### [facility] [address] [place] [address] Dr. Anna Romero ABO AND RH TYPEon 01-21-2023 ABO and Rh group Nom (Bld) ABO Rh Typing A Rh Positive Normal [facility] Comment on above: Performed By: #### S SCRN, GRASTCX #### [facility] [address] [place] [address] Dr. Anna Romero ER URINE PROFILEon 3 Bilirubin Ql (U) Negative Normal NEGATIVE [facility] Comment on above: Performed By: #### JD URIASRO #### [facility] [address] [place] [address] Dr. Anna Romero Clarity (U) CLEAR Normal CLEAR [facility] Comment on above: Performed By: #### Yared BARBOSA UMICRO #### [facility] [address] [place] [address] Dr. Anna Romero Color (U) YELLOW Normal YELLOW [facility] Comment on above: Performed By: #### Yared BARBOSA UMICRO #### [facility] [address] [address] [address] Anna BAER A micrscopic examination will be performed if indicated. Normal [facility] Comment on above: Performed By: #### Yared BARBOSA UMICRO #### [facility] [address] [address] [address] Anna Romero Glucose Ql (U) Negative Normal NEGATIVE [facility] Comment on above: Performed By: #### Yared BARBOSA UMICRO #### [facility] [address] [place] [address] Dr. Anna Romero Hemoglobin Ql (U) LARGE Abnormal NEGATIVE [facility] Comment on above: Performed By: #### Yared BARBOSA UMICRO #### [facility] [address] [place] [address] Dr. Anna Romero Ketones Ql (U) Negative Normal NEGATIVE [facility] Comment on above: Performed By: #### Yared BARBOSA UMICRO #### [facility] [address] [place] [address] Dr. Anna Romero LEUKOCYTES Negative Normal NEGATIVE [facility] Comment on above: Performed By: #### Yared BARBOSA UMICRO #### [facility] [address] [place] [address] Dr. Anna Romero Nitrite Ql (U) Negative Normal NEGATIVE [facility] Comment on above: Performed By: #### Yared BARBOSA UMICRO #### [facility] [address] [place] [address] Dr. Anna Romero pH (U) 5.5 [pH] Normal 5-9 [facility] Comment on above: Performed By: #### Yared BARBOSA UMICRO #### [facility] [address] [place] [address] Dr. Anna Romero SPEC GRAVITY >=1.030 Abnormal 1.005-<=1.025 [facility] Comment on above: Performed By: #### Yared BARBOSA UMICRO #### [facility] [address] [place] [address] Dr. Anna Romero UA PROTEIN TRACE Normal NEGATIVE/ TRACE [facility] Comment on above: Performed By: #### JD URIASRO #### [facility] [address] [place] [address] Dr. Anna Romero UR MICRO IND INDICATED Normal [facility] Comment on above: Performed By: #### JD URIASRO #### [facility] [address] [place] [address] Dr. Anna Romero Urobilinogen Qn (U) 0.2 {Joel'U}/dL Normal 0.2 - 1. 0 [facility] Comment on above: Performed By: #### JD URIASRO #### [facility] [address] [place] [address] Dr. Anna Romero PREG QUANT HCGon 01-21-2023 HCG QUANT 1693 mIU/mL Normal [facility] Comment on above: Performed By: #### S DAT AGUIRRETCX #### [facility] [address] [place] [address] Dr. Anna Romero HCG RANGE SEE BELOW Normal [facility] Comment on above: Result Comment: 5-50 0.2-1 WEEK 50-500 1-2 WEEKS 100-5,000 2-3 WEEKS 500-10,000 3-4 WEEKS 1,000-50,000 4-5 WEEKS 10,000-100,000 5-6 WEEKS 15,000-200,000 6-8 WEEKS 10,000-100,000 2-3 MONTHS Performed By: #### S CARLA GRASTCX #### [facility] [address] [place] [address] Dr. Anna Romero URINE MICROSCOPIC ONLYon BACTERIA TRACE Abnormal NONE SEEN [facility] Comment on above: Performed By: #### JD URIASRO #### [facility] [address] [place] [address] Dr. Anna Romero Bacteria identified Cx Nom (U) NOT INDICATED Normal [facility] Comment on above: Performed By: #### E RUR, UMICRO #### [facility] [address] [place] [address] Dr. Anna Romero CAST NONE SEEN Normal NONE SEEN [facility] Comment on above: Performed By: #### Yared BARBOSA UMICRO #### [facility] [address] [place] [address] Dr. Anna Romero Crystals LM Nom (Urine sed) NONE SEEN Normal NONE SEEN [facility] Comment on above: Performed By: #### Yared BARBOSA UMICRO #### [facility] [address] [place] [address] Dr. Anna Romero Epithelial cells LM Ql (Urine sed) RARE Normal NONE SEEN /RARE [facility] Comment on above: Performed By: #### Yared BARBOSA UMICRO #### [facility] [address] [place] [address] Dr. Anna Romero MUCOUS TRACE Abnormal NONE SEEN [facility] Comment on above: Performed By: #### Yared BARBOSA UMICRO #### [facility] [address] [place] [address] Dr. Anna Romero RBC 2-5 Abnormal 0-2 [facility] Comment on above: Performed By: #### Yared BARBOSA UMICRO #### [facility] [address] [place] [address] Dr. Anna Romero WBC 0-2 Abnormal NONE SEEN [facility] Comment on above: Performed By: #### Yared BARBOSA UMRUBENRO #### [facility] [address] [place] [address] Dr. Anna Romero US PREG TVon 01-21-2023 [...] LUDWIG JEAN BAPTISTE Date: 2023-01-21 16:54 Normal [facility] ER URINE PROFILEon 3 Bilirubin Ql (U) Negative Normal NEGATIVE [facility] Comment on above: Performed By: #### E RUR #### [facility] [address] [place] [address] Dr. Anna Romero Clarity (U) CLEAR Normal CLEAR [facility] Comment on above: Performed By: #### E RUR #### [facility] [address] [place] [address] Dr. Anna Romero Color (U) YELLOW Normal YELLOW [facility] Comment on above: Performed By: #### E RUR #### [facility] [address] [place] [address] Dr. Anna Romero ERUAHD A micrscopic examination will be performed if indicated. Normal [facility] Comment on above: Performed By: #### E RUR #### [facility] [address] [place] [address] Dr. Anna Romero Glucose Ql (U) Negative Normal NEGATIVE [facility] Comment on above: Performed By: #### E RUR #### [facility] [address] [place] [address] Dr. Anna Romero Hemoglobin Ql (U) Negative Normal NEGATIVE [facility] Comment on above: Performed By: #### E RUR #### [facility] [address] [place] [address] Dr. Anna Romero Ketones Ql (U) Negative Normal NEGATIVE [facility] Comment on above: Performed By: #### E RUR #### [facility] [address] [place] [address] Dr. Anna Romero LEUKOCYTES Negative Normal NEGATIVE [facility] Comment on above: Performed By: #### E RUR #### [facility] [address] [place] [address] Dr. Anna Romero Nitrite Ql (U) Negative Normal NEGATIVE [facility] Comment on above: Performed By: #### E RUR #### [facility] [address] [place] [address] Dr. Anna Romero pH (U) 6.5 [pH] Normal 5-9 [facility] Comment on above: Performed By: #### E RUR #### [facility] [address] [place] [address] Dr. Anna Romero SPEC GRAVITY 1.025 Normal 1.005-<=1.025 [facility] Comment on above: Performed By: #### E RUR #### [facility] [address] [place] [address] Dr. Anna Romero UA PROTEIN TRACE Normal NEGATIVE/ TRACE [facility] Comment on above: Performed By: #### E RUR #### [facility] [address] [place] [address] Dr. Anna Romero UR MICRO IND NOT INDICATED Normal [facility] Comment on above: Performed By: #### E RUR #### [facility] [address] [place] [address] Dr. Anna Romero Urobilinogen Qn (U) 0.2 {Joel'U}/dL Normal 0.2 - 1. 0 [facility] Comment on above: Performed By: #### E RUR #### [facility] [address] [address] [address] Anna Romero GROUP A STREP CULTUREon 12-13 S. pyogenes Ag Ql (Unsp spec) Culture Observations: NEGATIVE FOR GROUP A STREPTOCOCCUS. Normal [facility] Comment on above: Performed By: #### S MOISEN, GRASTCX #### [facility] [address] [address] [address] Anna Romero STREPT SCREENon 01-08-2023 STREP SCREEN A Negative Normal NEGATIVE [facility] Comment on above: Performed By: #### S SCRN, GRASTCX #### [facility] [address] [address] [address] Anna Romero SYMPTOMATIC COVID-19 ANTIGEN on 01-08-2023 EUA Statement SEE BELOW Normal [facility] Comment on above: Result Comment: This test [...] Performed By: #### S MOISEN, GRASTCX #### [facility] [address] [place] [address] Dr. Anna Romero SARS-CoV-2 (COVID-19) RNA DAVY+probe Ql (Unsp spec) Positive Abnormal NEGATIVE [facility] Comment on above: Performed By: #### S MOISEN, GRASTCX #### [facility] [address] [place] [address] Dr. Anna Romero US PREG TVon 05-31-2022 [...] GENI CABRAL Date: 2022-05-31 19:46 Normal [facility] BILIRUBIN TOTALon 03-16-2022 Bilirubin [Mass/Vol] 0.3 mg/dL Normal 0.2-1.0 [facility] Comment on above: Performed By: #### T DALE #### [facility] [address] [place] [address] Dr. Anna Romero CBC AUTO DIFFon 03-16-2022 BASO # 0.0 103/ul Normal 0.0-0.1 [facility] Comment on above: Performed By: #### C BC #### [facility] [address] [place] [address] Dr. Anna Romero Basophils/100 WBC (Bld) 0.4 % Normal 0.2-2.0 [facility] Comment on above: Performed By: #### C BC #### [facility] [address] [place] [address] Dr. Anna Romero EO # 0.0 103/ul Normal 0.0-0.7 [facility] Comment on above: Performed By: #### C BC #### [facility] [address] [place] [address] Dr. Anna Romero Eosinophils/100 WBC (Bld) 0.2 % Critically low 0.9-7.0 [facility] Comment on above: Performed By: #### C BC #### [facility] [address] [place] [address] Dr. Anna Romero Erythrocyte distribution width (RBC) [Ratio] 12.8 % Normal 11.0-15.0 [facility] Comment on above: Performed By: #### C BC #### [facility] [address] [place] [address] Dr. Anna Romero Hematocrit (Bld) [Volume fraction] 39.2 % Normal 36.0-48.0 [facility] Comment on above: Performed By: #### C BC #### [facility] [address] [place] [address] Dr. Anna Romero Hemoglobin (Bld) [Mass/Vol] 12.9 g/dL Normal 12.0-16.0 [facility] Comment on above: Performed By: #### C BC #### [facility] [address] [place] [address] Dr. Anna Romero IG # 0.01 10e3/ul Normal 0.00-0.03 [facility] Comment on above: Performed By: #### C BC #### [facility] [address] [place] [address] Dr. Anna Romero IG % 0.2 % Normal 0.0-0.5 [facility] Comment on above: Performed By: #### C BC #### [facility] [address] [place] [address] Dr. Anna Romero LYMPH # 1.6 103/ul Normal 1.2-3.8 [facility] Comment on above: Performed By: #### C BC #### [facility] [address] [place] [address] Dr. Anna Romero Lymphocytes/100 WBC (Bld) 29.8 % Normal 20.5-60.0 [facility] Comment on above: Performed By: #### C BC #### [facility] [address] [place] [address] Dr. Anna Romero MANUAL DIFF REQ NO Normal [facility] Comment on above: Performed By: #### C BC #### [facility] [address] [place] [address] Dr. Anna Romero MCH (RBC) [Entitic mass] 31.8 pg Normal 26.7-34.0 [facility] Comment on above: Performed By: #### C BC #### [facility] [address] [address] [address] Anna Romero MCHC (RBC) [Mass/Vol] 32.9 g/dL Normal 29.9-35.2 [facility] Comment on above: Performed By: #### C BC #### [facility] [address] [address] [address] Anna Romero MCV (RBC) [Entitic vol] 96.6 fL Normal 81.0-99.0 [facility] Comment on above: Performed By: #### C BC #### [facility] [address] [place] [address] Dr. Anna Romero MONO # 0.4 103/ul Normal 0.3-0.8 [facility] Comment on above: Performed By: #### C BC #### [facility] [address] [place] [address] Dr. Anna Romero Monocytes/100 WBC (Bld) 7.2 % Normal 1.7-12.0 [facility] Comment on above: Performed By: #### C BC #### [facility] [address] [place] [address] Dr. Anna Romero NEUT # 3.3 103/ul Normal 1.4-6.5 [facility] Comment on above: Performed By: #### C BC #### [facility] [address] [place] [address] Dr. Anna Romero Neutrophils/100 WBC (Bld) 62.2 % Normal 43.0-75.0 [facility] Comment on above: Performed By: #### C BC #### [facility] [address] [address] [address] Anna Romero Platelet mean volume (Bld) [Entitic vol] 10.0 fL Normal 9.5-13.5 [facility] Comment on above: Performed By: #### C BC #### [facility] [address] [address] [address] Anna Romero PLT 153 103/ul Normal 150-450 [facility] Comment on above: Performed By: #### C BC #### [facility] [address] [place] [address] Dr. Anna Romero RBC 4.06 106/ul Critically low 4.20-5.40 [facility] Comment on above: Performed By: #### C BC #### [facility] [address] [place] [address] Dr. nAna Romero WBC 5.3 103/ul Normal 4.0-11.0 [facility] Comment on above: Performed By: #### C BC #### [facility] [address] [place] [address] Dr. Anna Romero FREE T3on 03-16-2022 FREE T3 3.18 pg/mlL Normal 2.18-3.98 [facility] Comment on above: Performed By: #### S CARLA GRASTCX #### [facility] [address] [place] [address] Dr. Anna Romero FREE T4on 03-16-2022 Free T4 [Mass/Vol] 1.08 ng/dL Normal 0.76-1.46 [facility] Comment on above: Performed By: #### F T4 #### [facility] [address] [place] [address] Dr. Anna Romero PROF 14(COMP METB)on 022 Albumin [Mass/Vol] 4.3 g/dL Normal 3.4-5.0 [facility] Comment on above: Performed By: #### S CARLA GRASTCX #### [facility] [address] [place] [address] Dr. Anna Romero Albumin/Globulin [Mass ratio] 1.2 {ratio} Normal [facility] Comment on above: Performed By: #### S CARLA GRASTCX #### [facility] [address] [place] [address] Dr. Anna Romero ALP [Catalytic activity/Vol] 60 U/L Normal 46-116 [facility] Comment on above: Performed By: #### S CARLA GRASTCX #### [facility] [address] [place] [address] Dr. Anna Romero ALT [Catalytic activity/Vol] 25 U/L Normal 14-59 [facility] Comment on above: Performed By: #### S CARLA GRASTCX #### [facility] [address] [address] [address] Anna Romero Anion gap [Moles/Vol] 13.8 mmol/L Normal [facility] Comment on above: Performed By: #### S CARLA, GRASTCX #### [facility] [address] [address] [address] Anna Romero AST [Catalytic activity/Vol] 21 U/L Normal 15-37 [facility] Comment on above: Performed By: #### S CARLA GRASTCX #### [facility] [address] [place] [address] Dr. Anna Romero Calcium [Mass/Vol] 9.4 mg/dL Normal 8.5-10.[address] [facility] Comment on above: Performed By: #### S CARLA, GRASTCX #### [facility] [address] [place] [address] Dr. Anna Romero Chloride [Moles/Vol] 101 mmol/L Normal 98-107 [facility] Comment on above: Performed By: #### S CARLA, GRASTCX #### [facility] [address] [place] [address] Dr. Anna Romero CO2 [Moles/Vol] 26.8 mmol/L Normal 21.0-32.0 [facility] Comment on above: Performed By: #### S CARLA, GRASTCX #### [facility] [address] [place] [address] Dr. Anna Romero Creatinine [Mass/Vol] 0.87 mg/dL Normal 0.55-1.02 [facility] Comment on above: Performed By: #### S CARLA, GRASTCX #### [facility] [address] [place] [address] Dr. Anna Romero EGFR-AF PANAMANIAN >60 Normal >=60 [facility] Comment on above: Performed By: #### S CARLA, GRASTCX #### [facility] [address] [address] [address] Anna Romero EGFR-NON AF PANAMANIAN >60 Normal >=60 [facility] Comment on above: Performed By: #### S SCRN, GRASTCX #### [facility] [address] [address] [address] Anna Romero Globulin (S) [Mass/Vol] 3.5 g/dL Normal [facility] Comment on above: Performed By: #### S SCRN, GRASTCX #### [facility] [address] [address] [address] Anna Romero Glucose [Mass/Vol] 80 mg/dL Normal 74-106 [facility] Comment on above: Performed By: #### S SCRN, GRASTCX #### [facility] [address] [place] [address] Dr. Anna Romero Potassium [Moles/Vol] 3.6 mmol/L Normal 3.5-5.1 [facility] Comment on above: Performed By: #### S SCRN, GRASTCX #### [facility] [address] [address] [address] Anna Romero Protein [Mass/Vol] 7.8 g/dL Normal 6.4-8.2 [facility] Comment on above: Performed By: #### S SCRN, GRASTCX #### [facility] [address] [place] [address] Dr. Anna Romero Sodium [Moles/Vol] 138 mmol/L Normal 136-145 [facility] Comment on above: Performed By: #### S SCRN, GRASTCX #### [facility] [address] [place] [address] Dr. Anna Romero Urea nitrogen [Mass/Vol] 12.0 mg/dL Normal 7.0-18.0 [facility] Comment on above: Performed By: #### S SCRN, GRASTCX #### [facility] [address] [address] [address] Anna Romero Urea nitrogen/Creatinine [Mass ratio] 13.8 mg/mg Normal [facility] Comment on above: Performed By: #### S SCRN, GRASTCX #### [facility] [address] [address] [address] Anna Romero TSHon 03-16-2022 TSH 2.442 uIU/mL Normal 0.358-3.740 [facility] Comment on above: Performed By: #### S SCRN, GRASTCX #### [facility] [address] [place] [address] Dr. Anna Romero TSH RANGE SEE BELOW Normal [facility] Comment on above: Result Comment: <0.3 4 UIU/ml HYPERTHYROID 0.34-5.60 UIU/ml EUTHYROID >5.60 UIU/ml HYPOTHYROID Performed By: #### S SCRN, GRASTCX #### [facility] [address] [place] [address] Dr. Anna Romero Vital Signs Date Time Vital Sign Value Performing Clinician Paolai lity 11-27-2023 14:46-0500 Body mass index (BMI) [Ratio] 25.66 kg/m2 Rosana HAYES Work Phone: [facility] 11-27-2023 14:46-0500 Body weight 72.12 kg Rosana HAYES Work Phone: [facility] 11-27-2023 14:46-0500 Diastolic blood pressure 60 mm[Hg] Rosana HAYES Work Phone: [facility] 11-27-2023 14:46-0500 Systolic blood pressure 102 mm[Hg] Rosana HAYES Work Phone: [facility] 10-16-2023 12:21-0500 Body height 170.2 cm Haseeb Nice MD Work Phone: [facility] 10-16-2023 12:21-0500 Body mass index (BMI) [Ratio] 22.55 kg/m2 Haseeb Nice MD Work Phone: [facility] 10-16-2023 12:21-0500 Body weight 65.32 kg Haseeb Nice MD Work Phone: [facility] 10-16-2023 12:21-0500 Diastolic blood pressure 66 mm[Hg] Haseeb Nice MD Work Phone: [facility] 10-16-2023 12:21-0500 Heart rate 79 /min Haseeb Nice MD Work Phone: [facility] 10-16-2023 12:21-0500 Systolic blood pressure 109 mm[Hg] Haseeb Nice MD Work Phone: [facility] Encounters Encounter Date Encounter Type Care Provider [...] Start: 11-19-2023 End: 11-20-2023 ambulatory BRIA R [facility] Start: 10-29-2023 End: 10-30-2023 ambulatory BRIA R [facility] Start: 10-28-2023 End: 10-28-2023 ambulatory BRIA YOJANA Not Available Start: 10-22-2023 Documentation procedure Haseeb Nice MD Work Phone: [facility] Start: 10-22-2023 Telephone encounter Rachelle TREJO [facility] Start: 10-21-2023 Chart abstracting Aliya berger MD Work Phone: [facility] Start: 10-17-2023 Orders Only Robbi Rodriguez [employer] TECH[employer]IST [facility] Comment on above: History of oligohydr amnios in prior , currently (Primary Dx) Start: 10-16-2023 End: 10-17-2023 ambulatory BRIA BALES [facility] Start: 10-16-2023 End: 10-16-2023 Office outpatient new 45 minutes Hind Darius Nice MD Work Phone: [facility] Comment on above: High-risk in second trimester (Primary Dx); History of oligohydramnios in prior , currently ; 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; 20 weeks gestation of Start: 10-15-2023 Chart abstracting Scanning Pro vider External [facility] Start: 10-08-2023 End: 10-08-2023 ambulatory BRIA BALES [...] Td Vaccines (9 - Td or Tdap) [facility] Start: 10-17-2024 End: 10-17-2024 US MFM with or without consult US MFM with or without consult Imaging Routine History of oligohydramnios in prior , currently Expected: 10/17/2024 (Approximate), Expires: 10/17/2024 [facility] Work Phone: Comment on above: Expected: 10/17/2024 (Approximate), Expires: 10/17/2024 Start: 10-16-2024 Adult BMI Screening Adult BMI Screen ing [facility] Start: 10-16-2024 Tobacco Screening Tobacco Screening [facility] Start: 12-11-2023 End: 12-11-2023 Patient encounter procedure 12/11/2023 10:20 AM EST Routine [facility] [address] [place] [id number] Bria Bales, DO [address] [place] [address] [facility] Start: 11-27-2023 End: 11-27-2024 CBC panel - Blood by Automated count CBC Lab Routine Diabetes mellitus screening Expected: 11/27/2023 (Approximate), Expires: 11/27/2024 [facility] Work Phone: Comment on above: Expected: 11/27/2023 (Approximate), Expires: 11/27/2024 Start: 11-27-2023 End: 11-27-2024 Measurement of glucose 1 hour after glucose challenge for glucose tolerance test Glucose tolerance, 1 hour Lab Routine Diabetes mellitus screening Expected: 11/27/2023 (Approximate), Expires: 11/27/2024 [facility] Comment on above: Expected: 11/27/2023 (Approximate), Expires: 11/27/2024 Start: 11-27-2023 End: 11-27-2024 US biophysical profile w non stress test US biophysical profile w non stress test Imaging Routine History of miscarriage History of oligohydramnios Expected: 11/27/2023 (Approximate), Expires: 11/27/2024 [facility] Comment on above: Expected: 11/27/2023 (Approximate), Expires: 11/27/2024 Start: 11-27-2023 End: 11-27-2024 US for US OB SCAN FOR GROWTH Imaging Routine History of miscarriage History of oligohydramnios Expected: 11/27/2023 (Approximate), Expires: 11/27/2024 [facility] Comment on above: Expected: 11/27/2023 (Approximate), Expires: 11/27/2024 Start: 11-19-2023 End: 11-19-2023 Patient encounter procedure 11/19/2023 9:15 AM EST Appointment [facility] - Ultrasound [address] [place] [address] [facility] Start: 10-29-2023 End: 10-29-2023 Patient encounter procedure 10/29/2023 9:15 AM EST Appointment [facility]ound [address] [place] [address] [facility] Start: 10-16-2023 End: 10-16-2023 Patient encounter procedure 10/16/2023 1:00 PM EST Office Visit [facility] [address] [place] [id number] Haseeb Nice MD [address], [address] [place] [address] [facility] Start: 10-16-2023 Subsequent hospital visit by physician 10/16/2023 11:30 AM EST Hospital Encounter [facility] [address] [place] [address] [facility] Start: 06-14-2023 Influenza vaccination Influenza Vacc ine [facility] Start: 2014 Screening for malignant neoplasm of cervix Pap Smear [facility] Start: 2012 DTaP,Tdap and Td Vaccines (1 - Tdap) DTaP,Tdap and Td Vaccines (1 - Tdap) [facility] Start: 2011 Adult BMI Screening Adult BMI Screen ing [facility] Start: 2005 Depression Screening Depression Scre ening [facility] Start: 2005 Tobacco Screening Tobacco Screening [facility] Start: 1993 Tobacco Counseling Tobacco Counselin g [facility] Payers Date Payer Category Payer Medicaid [id number] 1993 Unknown [id number] 2.16.84 0.1.227390.3.579.2.593 1993 Unknown [id number] 2.16.84 0.1.967762.3.579.2.593 1993 Unknown [id number] 2.16.84 0.1.998326.3.579.2.593 1993 Unknown [id number] 2.16.84 0.1.536258.3.579.2.593 1993 Unknown [id number] 2.16.84 0.1.764478.3.579.2.593 1993 Unknown [id number] 2.16.84 0.1.252173.3.579.2.593 1993 Unknown [id number] 2.16.84 0.1.983723.3.579.2.593 1993 Unknown [id number] 2.16.84 0.1.359143.3.579.2.593 1993 Unknown [id number] 2.16.84 0.1.707381.3.579.2.593 1993 Unknown [id number] 2.16.84 0.1.831425.3.579.2.593 1993 Unknown [id number] 2.16.84 0.1.985435.3.579.2.593 1993 Unknown [id number] 2.16.84 0.1.321399.3.579.2.593 1993 Unknown [id number] 2.16.84 0.1.060369.3.579.2.1286 1993 Unknown [id number] 2.16.84 0.1.579535.3.579.2.1286 1993 Unknown [id number] 2.16.8 40.1.521600.3.579.2.1286 1993 Unknown [id number] 2.16.84 0.1.480816.3.579.2.1286 1993 Unknown [id number] 2.16.84 0.1.405030.3.579.2.1259 1993 Unknown [id number] 2.16.84 0.1.698281.3.579.2.1259 1993 Unknown [id number] 2.16.84 0.1.719720.3.579.2.1259 1993 Unknown [id number] 2.16.84 0.1.164321.3.579.2.1259 1993 Unknown [id number] 2.16.84 0.1.888307.3.579.2.1259 1993 Unknown [id number] 2.16.840 .1.922213.3.579.2.1259 1993 Unknown [id number] 2.16.840 .1.916565.3.579.2.1259 1959 Self-pay [id number] 1959 Unknown [id number] 1959 Unknown [id number] Social History Date Type Detail Facility Start: 10-15-2023 Tobacco smoking status ALIS Tobacco smoking consumption unknown [facility] Start: 03-23-2019 End: 10-16-2023 History of Social function [facility] Start: 03-23-2019 End: 10-16-2023 Housing Instability [facility] Housing Instability Unknown [facility] Start: 06-10-2023 [facility] Start: 1995 Sex Assigned At Not on file [facility] Start: 10-16-2023 Tobacco smoking status ALIS Smokes tobacco daily [facility] History of tobacco use Cigarette Smoker [facility] Start: 10-16-2023 Tobacco use and exposure Smokeless tobacco non-user [facility] Start: 10-16-2023 End: 10-21-2023 Alcohol intake Ex-drinker (finding) [facility] Start: 1995 Sex Assigned At Female [facility] Start: 08-07-2023 Gender identity Identifies as female gender (finding) [facility] Start: 08-07-2023 Sexual orientation Heterosexual [...] ABIGAIL Chinchilla documented in this encounter [facility] 10-22-2023 Miscellaneous Notes Formattin g of this note might be different from the original. Please call us back to schedule an ultrasound next week. [facility] 10-22-2023 Telephone encount er Note Please call us back to schedule an ultrasound next week. [facility] 10-22-2023 History of Presen t illness [...] increase p.o. hydration. documented in this encounter [facility] 10-16-2023 History of Presen t illness Narrative Headache/epigastric pain/blurry vision/swelling? No Cramping/contractions? No Abnormal vaginal discharge? No Spotting/vaginal bleeding? No Loss of fluid like your water may have broken? No Cats in the home? No Do you change the litter box? N/A Flu vaccine? No Genetic testing done this here or other office? Yes Have you been seen here at [facility] in a previous ? No Recent ER visits or hospitalizations? No Bring blood sugar log or meter with you today? (Please bring them with you for every visit at [facility]) N/A Traveled outside the country in the past 6 month No Any concerns that you would like me to mention to the provider today? No [facility] Maternal- Medicine Consult Note Reason [...] Yes Not In System Ref Prov vit no.842-ruhy-devww acid ( VITAMIN) 27 mg iron- 800 [...] continue with routine care in your office [facility], the CDC, and other organizations representing maternal and public health professionals recommend that , , and lactating people and those considering receive the COVID-19 vaccination. Vaccination is the best method to reduce maternal and complications of SARS-CoV-2 infection. This document was created with [employer] technology. Though I make every effort to review the dictation as it is transcribed, on occasion the spoken word can be misinterpreted by the technology leading to inappropriate words, phrases, or sentences. This note is addressed to the requesting provider as a consultation for clinical guidance. Specific medical abbreviations are occasionally used and those are generally approved by the [place]?Board of?Obstetrics and?Gynecology?as well as?[place] abbreviations. The above plan of care was based solely on the diagnoses for which a consultation was requested. ?More frequent testing may be indicated based on her other medical/obstetrical conditions. The management of other or medical conditions is beyond the scope of requested consultation and will continue to be followed by the primary factory lay out engineer or primary care provider. Thank you for allowing me to participate in her care. Please contact me if you have any concerns. [email or web address] Note PROCEDURE: XR SHOULD ER RT 2V or > HISTORY: Impingement syndrome of right shoulder region ; acute right shoulder pain, no known injury COMPARISON: None. FINDINGS: BONES:No fracture, acute abnormality, or significant arthropathy. SOFT TISSUES:No visible soft tissue swelling. EFFUSION:None visible. OTHER: Negative. IMPRESSION: 1. Normal examination. Electronically authenticated by: GEIN CABRAL Date: 2022-03-16 18:16 [facility] Evaluation note Diagnosis High-risk in second trimester- Primary History of oligohydramnios in prior , currently with other poor obstetric history 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 20 weeks gestation of [facility] History of oligohydramnios in prior , currently - Primary with other poor obstetric history [facility] Diagnosis Second trimester state, incidental with normal glucose tolerance test (GTT) Diabetes mellitus screening Screening for diabetes mellitus History of miscarriage Personal history of other genital system and obstetric disorders History of oligohydramnios documented in this encounter [facility] HealthcareInstructionsNot on filedocumented in this [facility] System[facility]ructionsNot on filedocumented in this [facility] SystemInstructionsNot on filedocumented in this encounterProGerman [facility] SystemInstructionsNot on filedocumented in this [facility] Summary Purpose Family History No [...] Haseeb Nice MD [address], [address] [place] [address] [facility] [address] [place] [address] Referral ID Status Reason Start Date Expiration Date V isits Requested Visits Authorized [id number] Pending Review 10/17/2023 10/16/2024 1 1 Additional Source Comments INFORMATION SOURCE (unrecogn ized section and content) DATE CREATED AUTHOR 01/31/2023 [facility] DATE CREATED AUTHOR AUTHOR'S ORGANIZ ATION 10/20/2023 [facility] DATE CREATED AUTHOR AUTHOR'S ORGANIZ ATION 11/24/2023 [facility] DATE CREATED AUTHOR AUTHOR'S ORGANIZ ATION 01/15/2024 [facility] EPIC Reason for Visit (unrecogniz [...] BE BASED ON THE PRIMARY CLINICAL RECORDS. [employer] provides no warranty or guarantee of the accuracy or completeness of information in this document.
[2024-01-27 14:07] VITALS: BP 109/65; PULSE 114
--- NOTE | 2024-01-27 14:12 | US_ITS ---
[address] [address] Patient Name: JERAMY SWEENEY MRN: [id number] date: 1995 Sex: F Assigned Patient Location: US Current Patient Location: US Accession/Order Number: [id number] Exam Date: 01/27/2024 14:45 Report Date: 01/27/2024 15:19 At the request of: BRIA DIAL Procedure: US OB BPP w non-stress EXAMINATION: US OB BPP w non-stress HISTORY: history ofoligohydramnios COMPARISON: No relevant comparison available. TECHNIQUE: Ultrasound biophysical profile was performed in the radiology department. non-reactive stress testing was performed by nursing staff in the birthing center. FINDINGS: BREATHING MOVEMENTS: 2.0 GROSS BODY MOVEMENTS: 2.0 TONE: 2.0 QUALITATIVE AMNIOTIC FLUID VOLUME: 2.0 PRESENTATION: CEPHALIC HEART RATE: 138.5 bpm H.B./min AMNIOTIC FLUID VOLUME: 22.9 cm cm GESTATIONAL AGE: 35 weeks 0 days CONCLUSION: Total biophysical profile score: 8.0 Electronically authenticated by: ALFA TEJEDA Date: 01/27/2024 15:19
== END 2024-01-27 15:11 | disposition home or self-care (01) ==
LOC: US 05:49 → FBC 14:05
PROVIDERS: Visit Provider Obstetrics & Gynecology
DX: Z87.59 Personal history of other complications of pregnancy, childbirth and the puerperium (principal); Z3A.35 35 weeks gestation of pregnancy
CPT/HCPCS: 76818

== ENCOUNTER 2024-01-30 07:25 | Outpatient (OUT) | payer OTHER, SELFPAY ==
--- OUTSIDE RECORDS SUMMARY | 2024-01-30 07:42 | XMS_ITS | CCD ---
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 0 Active vit no.260-adkg-rimyz acid ( VITAMIN) 27 mg iron- 800 mcg tablet (6 sources) take 1 tablet by mouth in the morning vit no.190-bohx-ylrhi acid ( VITAMIN) 27 mg iron- 800 [...] Chronic Other aftercare (1 source) Other terminal carman (current) drug therapy; Translations: [OTH MD ALLERGY IMMUNOLOGY CURRENT DRUG THERAPY] Onset: 01-23-2023 Episodic Other complications of ; puerperium affecting management of mother (1 source) Endocrine, nutritional and metabolic diseases complicating childbirth; Translations: [ENDOCRN NUTR MET DZ COMP CHILDBIRTH] Onset: 01-22-2023 Episodic Other complications of (1 source) Endocrine, nutritional and metabolic diseases complicating , first trimester; Translations: [ENDOCRN NUTR MET DZ COMP PG 1ST TRI] Onset: 04-12-2023 Episodic Other complications of (1 source) Smoking [...] Negative Negative - 4(70) +++ mg/dL [facility] Blood, UA Negative Negative - 50 Felice/mcL [facility] Clarity, UA Clear [facility] Health[facility] Color, UA Yellow [facility] Healthcar [facility] Glucose, UA Negative Negative - 1999(110) ++++ mg/dL [facility] Interpretation and review of laboratory results Normal [facility] Ketones, UA Negative Negative - 160(16) ++++ mg/dL [facility] Leukocytes, UA Negative Negative - 500+++ Regina/mcL [facility] Nitrite, UA Negative Negative - Positive [facility] pH, UA 5.5 5 - 9 [facility] Protein, UA Negative Negative - 1999(20) ++++ mg/dL [facility] Spec Grav, UA 1.030 1 - 1.03 [facility] Urobilinogen, UA 0.2 0.2 - 12 mg/dL [facility] Healthcar e PREG QUANT HCGon 01-28-2023 HCG QUANT 17 mIU/mL Normal [facility] Comment on above: Performed By: #### P REGQNT #### [facility] [address] [address] [address] Anna Romero HCG RANGE SEE BELOW Normal [facility] Comment on above: Result Comment: 5-50 0.2-1 WEEK 50-500 1-2 WEEKS 100-5,000 2-3 WEEKS 500-10,000 3-4 WEEKS 1,000-50,000 4-5 WEEKS 10,000-100,000 5-6 WEEKS 15,000-200,000 6-8 WEEKS 10,000-100,000 2-3 MONTHS Performed By: #### P REGQNT #### [facility] [address] [place] [address] Dr. Anna Romero PREG QUANT HCGon 01-23-2023 HCG QUANT 441 mIU/mL Normal [facility] Comment on above: Performed By: #### S CARLA GRASTCX #### [facility] [address] [place] [address] Dr. Anna Romero HCG RANGE SEE BELOW Normal [facility] Comment on above: Result Comment: 5-50 0.2-1 WEEK 50-500 1-2 WEEKS 100-5,000 2-3 WEEKS 500-10,000 3-4 WEEKS 1,000-50,000 4-5 WEEKS 10,000-100,000 5-6 WEEKS 15,000-200,000 6-8 WEEKS 10,000-100,000 2-3 MONTHS Performed By: #### S CARLA GRASTCX #### [facility] [address] [place] [address] Dr. Anna Romero ABO AND RH TYPEon 01-21-2023 ABO and Rh group Nom (Bld) ABO Rh Typing A Rh Positive Normal [facility] Comment on above: Performed By: #### S CARLA GRASTCX #### [facility] [address] [place] [address] Dr. Anna Romero ER URINE PROFILEon 3 Bilirubin Ql (U) Negative Normal NEGATIVE [facility] Comment on above: Performed By: #### VINCENT URIAS #### [facility] [address] [place] [address] Dr. Anna Romero Clarity (U) CLEAR Normal CLEAR [facility] Comment on above: Performed By: #### FANG URIASICRO #### [facility] [address] [place] [address] Dr. Anna Romero Color (U) YELLOW Normal YELLOW [facility] Comment on above: Performed By: #### Yared BARBOSA UMICRO #### [facility] [address] [place] [address] Dr. Anna BAER A micrscopic examination will be performed if indicated. Normal [facility] Comment on above: Performed By: #### Yared BARBOSA UMICRO #### [facility] [address] [place] [address] Dr. Anna Romero Glucose Ql (U) Negative Normal NEGATIVE [facility] Comment on above: Performed By: #### Yared BARBOSA UMICRO #### [facility] [address] [place] [address] Dr. Anna Romero Hemoglobin Ql (U) LARGE Abnormal NEGATIVE [facility] Comment on above: Performed By: #### Yared BARBOSA UMICRO #### [facility] [address] [place] [address] Dr. Anna Romero Ketones Ql (U) Negative Normal NEGATIVE [facility] Comment on above: Performed By: #### Yared BARBOSA UMICRO #### [facility] [address] [place] [address] Dr. Anna Romero LEUKOCYTES Negative Normal NEGATIVE [facility] Comment on above: Performed By: #### Yared BARBOSA UMICRO #### [facility] [address] [place] [address] Dr. Anna Romero Nitrite Ql (U) Negative Normal NEGATIVE [facility] Comment on above: Performed By: #### Yared BARBOSA UMICRO #### [facility] [address] [place] [address] Dr. Anna Romero pH (U) 5.5 [pH] Normal 5-9 [facility] Comment on above: Performed By: #### Yared BARBOSA UMICRO #### [facility] [address] [place] [address] Dr. Anna Romero SPEC GRAVITY >=1.030 Abnormal 1.005-<=1.025 [facility] Comment on above: Performed By: #### E RUR, UMICRO #### [facility] [address] [address] [address] Anna Romero UA PROTEIN TRACE Normal NEGATIVE/ TRACE [facility] Comment on above: Performed By: #### E JD BARBOSARO #### [facility] [address] [place] [address] Dr. Anna Romero UR MICRO IND INDICATED Normal [facility] Comment on above: Performed By: #### E JD BARBOSARO #### [facility] [address] [place] [address] Dr. Anna Romero Urobilinogen Qn (U) 0.2 {Joel'U}/dL Normal 0.2 - 1. 0 [facility] Comment on above: Performed By: #### JD URIASRO #### [facility] [address] [place] [address] Dr. Anna Romero PREG QUANT HCGon 01-21-2023 HCG QUANT 1693 mIU/mL Normal [facility] Comment on above: Performed By: #### S SCREleanor, GRASTCX #### [facility] [address] [place] [address] Dr. Anna Romero HCG RANGE SEE BELOW Normal [facility] Comment on above: Result Comment: 5-50 0.2-1 WEEK 50-500 1-2 WEEKS 100-5,000 2-3 WEEKS 500-10,000 3-4 WEEKS 1,000-50,000 4-5 WEEKS 10,000-100,000 5-6 WEEKS 15,000-200,000 6-8 WEEKS 10,000-100,000 2-3 MONTHS Performed By: #### S SCRN, GRASTCX #### [facility] [address] [place] [address] Dr. Anna Romero URINE MICROSCOPIC ONLYon BACTERIA TRACE Abnormal NONE SEEN [facility] Comment on above: Performed By: #### FANG URIASICRO #### [facility] [address] [place] [address] Dr. Anna Romero Bacteria identified Cx Nom (U) NOT INDICATED Normal [facility] Comment on above: Performed By: #### E RUR, UMICRO #### [facility] [address] [place] [address] Dr. Anna Romero CAST NONE SEEN Normal NONE SEEN [facility] Comment on above: Performed By: #### Yared BARBOSA UMICRO #### [facility] [address] [place] [address] Dr. Anna Romero Crystals LM Nom (Urine sed) NONE SEEN Normal NONE SEEN [facility] Comment on above: Performed By: #### Yared BARBOSA UMICRO #### [facility] [address] [place] [address] Dr. Anna Romero Epithelial cells LM Ql (Urine sed) RARE Normal NONE SEEN /RARE [facility] Comment on above: Performed By: #### Yared BARBOSA UMICRO #### [facility] [address] [place] [address] Dr. Anna Romero MUCOUS TRACE Abnormal NONE SEEN [facility] Comment on above: Performed By: #### Yared BARBOSA UMICRO #### [facility] [address] [place] [address] Dr. Anna Romero RBC 2-5 Abnormal 0-2 [facility] Comment on above: Performed By: #### Yared BARBOSA UMICRO #### [facility] [address] [place] [address] Dr. Anna Romero WBC 0-2 Abnormal NONE SEEN [facility] Comment on above: Performed By: #### Yared BARBOSA UMICRO #### [facility] [address] [place] [address] Dr. Anna Romero US PREG TVon 01-21-2023 [...] LUDWIG JEAN BAPTISTE Date: 2023-01-21 16:54 Normal [facility] ER URINE PROFILEon 3 Bilirubin Ql (U) Negative Normal NEGATIVE [facility] Comment on above: Performed By: #### E RUR #### [facility] [address] [place] [address] Dr. Anna oRmero Clarity (U) CLEAR Normal CLEAR [facility] Comment on above: Performed By: #### E RUR #### [facility] [address] [place] [address] Dr. Anna Romero Color (U) YELLOW Normal YELLOW [facility] Comment on above: Performed By: #### E RUR #### [facility] [address] [place] [address] Dr. Anna BAER A micrscopic examination will be performed if indicated. Normal [facility] Comment on above: Performed By: #### E RUR #### [facility] [address] [place] [address] Dr. Anna Romero Glucose Ql (U) Negative Normal NEGATIVE [facility] Comment on above: Performed By: #### E RUR #### [facility] [address] [place] [address] Dr. Anna Romero Hemoglobin Ql (U) Negative Normal NEGATIVE [facility] Comment on above: Performed By: #### E RUR #### [facility] [address] [place] [address] Dr. Anna Romero Ketones Ql (U) Negative Normal NEGATIVE [facility] Comment on above: Performed By: #### E RUR #### [facility] [address] [place] [address] Dr. Anna Romero LEUKOCYTES Negative Normal NEGATIVE [facility] Comment on above: Performed By: #### E RUR #### [facility] [address] [place] [address] Dr. Anna Romero Nitrite Ql (U) Negative Normal NEGATIVE [facility] Comment on above: Performed By: #### E RUR #### [facility] [address] [place] [address] Dr. Anna Romero pH (U) 6.5 [pH] Normal 5-9 [facility] Comment on above: Performed By: #### E RUR #### [facility] [address] [place] [address] Dr. Anna Romero SPEC GRAVITY 1.025 Normal 1.005-<=1.025 [facility] Comment on above: Performed By: #### E RUR #### [facility] [address] [place] [address] Dr. Anna Romero UA PROTEIN TRACE Normal NEGATIVE/ TRACE [facility] Comment on above: Performed By: #### E RUR #### [facility] [address] [place] [address] Dr. Anna Romero UR MICRO IND NOT INDICATED Normal [facility] Comment on above: Performed By: #### E RUR #### [facility] [address] [place] [address] Dr. Anna Romero Urobilinogen Qn (U) 0.2 {Joel'U}/dL Normal 0.2 - 1. 0 [facility] Comment on above: Performed By: #### E RUR #### [facility] [address] [address] [address] Anna Romero GROUP A STREP CULTUREon 12-13 S. pyogenes Ag Ql (Unsp spec) Culture Observations: NEGATIVE FOR GROUP A STREPTOCOCCUS. Normal [facility] Comment on above: Performed By: #### S SCRN, GRASTCX #### [facility] [address] [address] [address] Anna Romero STREPT SCREENon 01-08-2023 STREP SCREEN A Negative Normal NEGATIVE [facility] Comment on above: Performed By: #### S SCRN, GRASTCX #### [facility] [address] [place] [address] Dr. Anna Romero SYMPTOMATIC COVID-19 ANTIGEN on 01-08-2023 EUA Statement SEE BELOW Normal [facility] Comment on above: Result Comment: This [...] Performed By: #### S SCRN, GRASTCX #### [facility] [address] [place] [address] Dr. Anna Romero SARS-CoV-2 (COVID-19) RNA DAVY+probe Ql (Unsp spec) Positive Abnormal NEGATIVE [facility] Comment on above: Performed By: #### S SCRN, GRASTCX #### [facility] [address] [place] [address] Dr. Anna Romero US PREG TVon 05-31-2022 [...] GENI CABRAL Date: 2022-05-31 19:46 Normal [facility] BILIRUBIN TOTALon 03-16-2022 Bilirubin [Mass/Vol] 0.3 mg/dL Normal 0.2-1.0 [facility] Comment on above: Performed By: #### T DALE #### [facility] [address] [place] [address] Dr. Anna Romero CBC AUTO DIFFon 03-16-2022 BASO # 0.0 103/ul Normal 0.0-0.1 [facility] Comment on above: Performed By: #### C BC #### [facility] [address] [place] [address] Dr. Anna Romero Basophils/100 WBC (Bld) 0.4 % Normal 0.2-2.0 [facility] Comment on above: Performed By: #### C BC #### [facility] [address] [place] [address] Dr. Anna Romero EO # 0.0 103/ul Normal 0.0-0.7 [facility] Comment on above: Performed By: #### C BC #### [facility] [address] [place] [address] Dr. Anna Romero Eosinophils/100 WBC (Bld) 0.2 % Critically low 0.9-7.0 [facility] Comment on above: Performed By: #### C BC #### [facility] [address] [place] [address] Dr. Anna Romero Erythrocyte distribution width (RBC) [Ratio] 12.8 % Normal 11.0-15.0 [facility] Comment on above: Performed By: #### C BC #### [facility] [address] [place] [address] Dr. Anna Romero Hematocrit (Bld) [Volume fraction] 39.2 % Normal 36.0-48.0 [facility] Comment on above: Performed By: #### C BC #### [facility] [address] [place] [address] Dr. Anna Romero Hemoglobin (Bld) [Mass/Vol] 12.9 g/dL Normal 12.0-16.0 [facility] Comment on above: Performed By: #### C BC #### [facility] [address] [place] [address] Dr. Anna Romero IG # 0.01 10e3/ul Normal 0.00-0.03 [facility] Comment on above: Performed By: #### C BC #### [facility] [address] [place] [address] Dr. Anna Romero IG % 0.2 % Normal 0.0-0.5 [facility] Comment on above: Performed By: #### C BC #### [facility] [address] [place] [address] Dr. Anna Romero LYMPH # 1.6 103/ul Normal 1.2-3.8 [facility] Comment on above: Performed By: #### C BC #### [facility] [address] [place] [address] Dr. nAna Romero Lymphocytes/100 WBC (Bld) 29.8 % Normal 20.5-60.0 [facility] Comment on above: Performed By: #### C BC #### [facility] [address] [place] [address] Dr. Anna Romero MANUAL DIFF REQ NO Normal [facility] Comment on above: Performed By: #### C BC #### [facility] [address] [place] [address] Dr. Anna Romero MCH (RBC) [Entitic mass] 31.8 pg Normal 26.7-34.0 [facility] Comment on above: Performed By: #### C BC #### [facility] [address] [place] [address] Dr. Anna Romero MCHC (RBC) [Mass/Vol] 32.9 g/dL Normal 29.9-35.2 [facility] Comment on above: Performed By: #### C BC #### [facility] [address] [place] [address] Dr. Anna Romero MCV (RBC) [Entitic vol] 96.6 fL Normal 81.0-99.0 [facility] Comment on above: Performed By: #### C BC #### [facility] [address] [place] [address] Dr. Anna Romero MONO # 0.4 103/ul Normal 0.3-0.8 [facility] Comment on above: Performed By: #### C BC #### [facility] [address] [place] [address] Dr. Anna Romero Monocytes/100 WBC (Bld) 7.2 % Normal 1.7-12.0 [facility] Comment on above: Performed By: #### C BC #### [facility] [address] [place] [address] Dr. Anna Romero NEUT # 3.3 103/ul Normal 1.4-6.5 [facility] Comment on above: Performed By: #### C BC #### [facility] [address] [place] [address] Dr. Anna Romero Neutrophils/100 WBC (Bld) 62.2 % Normal 43.0-75.0 [facility] Comment on above: Performed By: #### C BC #### [facility] [address] [place] [address] Dr. Anna Romero Platelet mean volume (Bld) [Entitic vol] 10.0 fL Normal 9.5-13.5 [facility] Comment on above: Performed By: #### C BC #### [facility] [address] [place] [address] Dr. Anna Romero PLT 153 103/ul Normal 150-450 [facility] Comment on above: Performed By: #### C BC #### [facility] [address] [address] [address] Anna Romero RBC 4.06 106/ul Critically low 4.20-5.40 [facility] Comment on above: Performed By: #### C BC #### [facility] [address] [place] [address] Dr. Anna Romero WBC 5.3 103/ul Normal 4.0-11.0 [facility] Comment on above: Performed By: #### C BC #### [facility] [address] [place] [address] Dr. Anna Romero FREE T3on 03-16-2022 FREE T3 3.18 pg/mlL Normal 2.18-3.98 [facility] Comment on above: Performed By: #### S SCREleanor GRASTCX #### [facility] [address] [place] [address] Dr. Anna Romero FREE T4on 03-16-2022 Free T4 [Mass/Vol] 1.08 ng/dL Normal 0.76-1.46 [facility] Comment on above: Performed By: #### F T4 #### [facility] [address] [place] [address] Dr. Anna Romero PROF 14(COMP METB)on 022 Albumin [Mass/Vol] 4.3 g/dL Normal 3.4-5.0 [facility] Comment on above: Performed By: #### S CARLA GRASTCX #### [facility] [address] [place] [address] Dr. Anna Romero Albumin/Globulin [Mass ratio] 1.2 {ratio} Normal [facility] Comment on above: Performed By: #### S CARLA GRASTCX #### [facility] [address] [place] [address] Dr. Anna Romero ALP [Catalytic activity/Vol] 60 U/L Normal 46-116 [facility] Comment on above: Performed By: #### S SCREleanor GRASTCX #### [facility] [address] [address] [address] Anna Romero ALT [Catalytic activity/Vol] 25 U/L Normal 14-59 [facility] Comment on above: Performed By: #### S SCRN, GRASTCX #### [facility] [address] [place] [address] Dr. Anna Romero Anion gap [Moles/Vol] 13.8 mmol/L Normal [facility] Comment on above: Performed By: #### S SCRN, GRASTCX #### [facility] [address] [place] [address] Dr. Anna Romero AST [Catalytic activity/Vol] 21 U/L Normal 15-37 [facility] Comment on above: Performed By: #### S SCRN, GRASTCX #### [facility] [address] [place] [address] Dr. Anna Romero Calcium [Mass/Vol] 9.4 mg/dL Normal 8.5-10.1 [facility] Comment on above: Performed By: #### S SCRN, GRASTCX #### [facility] [address] [place] [address] Dr. Anna Romero Chloride [Moles/Vol] 101 mmol/L Normal 98-107 [facility] Comment on above: Performed By: #### S SCRN, GRASTCX #### [facility] [address] [place] [address] Dr. Anna Romero CO2 [Moles/Vol] 26.8 mmol/L Normal 21.0-32.0 [facility] Comment on above: Performed By: #### S SCRN, GRASTCX #### [facility] [address] [place] [address] Dr. Anna Romero Creatinine [Mass/Vol] 0.87 mg/dL Normal 0.55-1.02 [facility] Comment on above: Performed By: #### S SCRN, GRASTCX #### [facility] [address] [place] [address] Dr. Anna Romero EGFR-AF FRENCH >60 Normal >=60 [facility] Comment on above: Performed By: #### S SCRN, GRASTCX #### [facility] [address] [address] [address] Anna Romero EGFR-NON AF FRENCH >60 Normal >=60 [facility] Comment on above: Performed By: #### S SCRN, GRASTCX #### [facility] [address] [address] [address] Anna Romero Globulin (S) [Mass/Vol] 3.5 g/dL Normal [facility] Comment on above: Performed By: #### S SCRN, GRASTCX #### [facility] [address] [address] [address] Anna Romero Glucose [Mass/Vol] 80 mg/dL Normal 74-106 [facility] Comment on above: Performed By: #### S SCRN, GRASTCX #### [facility] [address] [place] [address] Dr. Anna Romero Potassium [Moles/Vol] 3.6 mmol/L Normal 3.5-5.1 [facility] Comment on above: Performed By: #### S SCRN, GRASTCX #### [facility] [address] [address] [address] Anna Romero Protein [Mass/Vol] 7.8 g/dL Normal 6.4-8.2 [facility] Comment on above: Performed By: #### S SCRN, GRASTCX #### [facility] [address] [place] [address] Dr. Anna Romero Sodium [Moles/Vol] 138 mmol/L Normal 136-145 [facility] Comment on above: Performed By: #### S SCRN, GRASTCX #### [facility] [address] [place] [address] Dr. Anna Romero Urea nitrogen [Mass/Vol] 12.0 mg/dL Normal 7.0-18.0 [facility] Comment on above: Performed By: #### S SCRN, GRASTCX #### [facility] [address] [address] [address] Anna Romero Urea nitrogen/Creatinine [Mass ratio] 13.8 mg/mg Normal [facility] Comment on above: Performed By: #### S SCRN, GRASTCX #### [facility] [address] [place] [address] Dr. Anna Romero TSHon 03-16-2022 TSH 2.442 uIU/mL Normal 0.358-3.740 [facility] Comment on above: Performed By: #### S SCRN, GRASTCX #### [facility] [address] [place] [address] Dr. Anna Romero TSH RANGE SEE BELOW Normal [facility] Comment on above: Result Comment: <0.3 4 UIU/ml HYPERTHYROID 0.34-5.60 UIU/ml EUTHYROID >5.60 UIU/ml HYPOTHYROID Performed By: #### S SCRN, GRASTCX #### [facility] [address] [place] [address] Dr. Anna Romero Vital Signs Date Time Vital Sign Value Performing Clinician Faci lity 11-27-2023 14:46-0500 Body mass index (BMI) [Ratio] 25.66 kg/m2 Rosana HAYES Work Phone: [facility] 11-27-2023 14:46-0500 Body weight 72.12 kg Rosana Galo PA Work Phone: [facility] 11-27-2023 14:46-0500 Diastolic blood pressure 60 mm[Hg] Rosana HAYES Work Phone: [facility] 11-27-2023 14:46-0500 Systolic blood pressure 102 mm[Hg] Rosana Galo PA Work Phone: [facility] 10-16-2023 12:21-0500 Body height 170.2 cm Haseeb Nice MD Work Phone: [facility] 10-16-2023 12:21-0500 Body mass index (BMI) [Ratio] 22.55 kg/m2 Haseeb Nice MD Work Phone: [facility] 10-16-2023 12:21-0500 Body weight 65.32 kg Haseeb Nice MD Work Phone: [facility] 10-16-2023 12:21-0500 Diastolic blood pressure 66 mm[Hg] Haseeb Nice MD Work Phone: [facility] 10-16-2023 12:21-0500 Heart rate 79 /min Haseeb Nice MD Work Phone: [facility] 10-16-2023 12:21-0500 Systolic blood pressure 109 mm[Hg] Haseeb Nice MD Work Phone: [facility] Encounters Encounter Date Encounter Type Care Provider Facility Start: 01-28-2024 End: 01-28-2024 ambulatory BRIA YOJANA Not Available Start: 01-14-2024 End: 01-14-2024 ambulatory BRIA YOJANA Not Available Start: 12-31-2023 End: 12-31-2023 ambulatory ROSANA IRAJ Not Available Start: 12-16-2023 End: 12-16-2023 ambulatory BRIA YOJANA Not Available Start: 11-27-2023 End: 11-27-2023 ambulatory ROSANA IRAJ Not Available Start: 11-27-2023 End: 11-27-2023 Office outpatient visit 15 minutes Rosana HAYES Work Phone: [facility] Comment on above: Second trimester pre gnancy; with normal glucose tolerance test (GTT); Diabetes mellitus screening; History of miscarriage; History of oligohydramnios Start: 11-19-2023 End: 11-20-20[facility] Start: 10-29-2023 End: 10-30-2023 ambulatory BRIA R [facility] Start: 10-28-2023 End: 10-28-2023 ambulatory BRIA YOJANA Not Available Start: 10-22-2023 Documentation procedure Haseeb Nice MD Work Phone: [facility] Start: 10-22-2023 Telephone encounter Rachelle TREJO [facility] Start: 10-21-2023 Chart abstractnereida berger MD Work Phone: [facility] Start: 10-17-2023 Orders Only Robbi Rodriguez [facility]- Medicine at [facility] Comment on above: History of oligohydr amnios in prior , currently (Primary Dx) Start: 10-16-2023 End: 10-17-2023 ambulatory BRIA BALES [facility] Start: 10-16-2023 End: 10-16-2023 Office outpatient new 45 minutes Hind Darius Nice MD Work Phone: [facility] Comment on above: High-risk in second trimester (Primary Dx); History of oligohydramnios in prior , currently ; 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 Facility:[facility] Start: 01-23-2023 End: 01-24-[address] BRIA BALES . Facility:[facility] Start: 01-22-2023 End: 01-22-2023 ambulatory JOANN Cho Facility:[facility] Start: 01-21-2023 End: 01-21-2023 ambulatory CASSANDRA [...] Td Vaccines (9 - Td or Tdap) [facility] Start: 10-17-2024 End: 10-17-2024 US MFM with or without consult US MFM with or without consult Imaging Routine History of oligohydramnios in prior , currently Expected: 10/17/2024 (Approximate), Expires: 10/17/2024 [facility] Work Phone: Comment on above: Expected: 10/17/2024 (Approximate), Expires: 10/17/2024 Start: 10-16-2024 Adult BMI Screening Adult BMI Screen ing [facility] Start: 10-16-2024 Tobacco Screening Tobacco Screening [facility] Start: 12-11-2023 End: 12-11-2023 Patient encounter procedure 12/11/2023 10:20 AM EST Routine [facility] [address] [place] [id number] Bria Bales, DO [address] [place] [address] [facility] Start: 11-27-2023 End: 11-27-2024 CBC panel - Blood by Automated count CBC Lab Routine Diabetes mellitus screening Expected: 11/27/2023 (Approximate), Expires: 11/27/2024 [facility] Work Phone: Comment on above: Expected: 11/27/2023 (Approximate), Expires: 11/27/2024 Start: 11-27-2023 End: 11-27-2024 Measurement of glucose 1 hour after glucose challenge for glucose tolerance test Glucose tolerance, 1 hour Lab Routine Diabetes mellitus screening Expected: 11/27/2023 (Approximate), Expires: 11/27/2024 [facility] Comment on above: Expected: 11/27/2023 (Approximate), Expires: 11/27/2024 Start: 11-27-2023 End: 11-27-2024 US biophysical profile w non stress test US biophysical profile w non stress test Imaging Routine History of miscarriage History of oligohydramnios Expected: 11/27/2023 (Approximate), Expires: 11/27/2024 [facility] Comment on above: Expected: 11/27/2023 (Approximate), Expires: 11/27/2024 Start: 11-27-2023 End: 11-27-2024 US for US OB SCAN FOR GROWTH Imaging Routine History of miscarriage History of oligohydramnios Expected: 11/27/2023 (Approximate), Expires: 11/27/2024 [facility] Comment on above: Expected: 11/27/2023 (Approximate), Expires: 11/27/2024 Start: 11-19-2023 End: 11-19-2023 Patient encounter procedure 11/19/2023 9:15 AM EST Appointment [facility] [address] [place] [address] [facility] Start: 10-29-2023 End: 10-29-2023 Patient encounter procedure 10/29/2023 9:15 AM EST Appointment [facility] [address] [place] [address] [facility] Start: 10-16-2023 End: 10-16-2023 Patient encounter procedure 10/16/2023 1:00 PM EST Office Visit [facility] at [facility] [address] [place] [address] Haseeb Nice MD [address], [address] [place] [address] [facility] Start: 10-16-2023 Subsequent hospital visit by physician 10/16/2023 11:30 AM EST Hospital Encounter [facility] [address] [place] [address] [facility] Start: 06-14-2023 Influenza vaccination Influenza Vacc ine [facility] Start: 2014 Screening for malignant neoplasm of cervix Pap Smear [facility] Start: 2012 DTaP,Tdap and Td Vaccines (1 - Tdap) DTaP,Tdap and Td Vaccines (1 - Tdap) [facility] Start: 2011 Adult BMI Screening Adult BMI Screen ing [facility] Start: 2005 Depression Screening Depression Scre ening [facility] Start: 2005 Tobacco Screening Tobacco Screening [facility] Start: 1993 Tobacco Counseling Tobacco Counselin g [facility] Payers Date Payer Category Payer Medicaid [id number] 1993 Unknown [id number] 2.16.84 0.1.484392.3.579.2.593 1993 Unknown [id number] 2.16.84 0.1.493842.3.579.2.593 1993 Unknown [id number] 2.16.84 0.1.263888.3.579.2.593 1993 Unknown [id number] 2.16.84 0.1.004405.3.579.2.593 1993 Unknown [id number] 2.16.84 0.1.526598.3.579.2.593 1993 Unknown [id number] 2.16.84 0.1.538941.3.579.2.593 1993 Unknown [id number] 2.16.84 0.1.457193.3.579.2.593 1993 Unknown [id number] 2.16.84 0.1.241513.3.579.2.593 1993 Unknown [id number] 2.16.84 0.1.978672.3.579.2.593 1993 Unknown [id number] 2.16.84 0.1.265758.3.579.2.593 1993 Unknown [id number] 2.16.84 0.1.931049.3.579.2.593 1993 Unknown [id number] 2.16.84 0.1.456494.3.579.2.593 1993 Unknown [id number] 2.16.84 0.1.580812.3.579.2.1286 1993 Unknown [id number] 2.16.84 0.1.862622.3.579.2.1286 1993 Unknown [id number] 2.16.8 40.1.000170.3.579.2.1286 1993 Unknown [id number] 2.16.84 0.1.618494.3.579.2.1286 1993 Unknown [id number] 2.16.84 0.1.481928.3.579.2.1259 1993 Unknown [id number] 2.16.84 0.1.879757.3.579.2.1259 1993 Unknown [id number] 2.16.84 0.1.408315.3.579.2.1259 1993 Unknown [id number] 2.16.84 0.1.635126.3.579.2.125 1993 Unknown [id number] 2.16.84 0.1.242178.3.579.2.1259 1993 Unknown [id number] 2.16.84 0.1.514648.3.579.2.1259 1993 Unknown [id number] 2.16.840 .1.003782.3.579.2.1259 1993 Unknown [id number] 2.16.840 .1.590486.3.579.2.1259 1959 Self-pay [id number] 1959 Unknown [id number] 1961 Unknown [id number] Social History Date Type Detail Facility Start: 10-15-2023 Tobacco smoking status NHIS Tobacco smoking consumption unknown [facility] Start: 03-23-2019 End: 10-16-2023 History of Social function [facility] Start: 03-23-2019 End: 10-16-2023 Housing Instability [facility] Housing Instability Unknown [facility] Start: 06-10-2023 [facility] Start: 1995 Sex Assigned At Not on file [facility] Start: 10-16-2023 Tobacco smoking status NJIS Smokes tobacco daily [facility] History of tobacco use Cigarette Smoker P [facility] Start: 10-16-2023 Tobacco use and exposure Smokeless tobacco non-user [facility] Start: 10-16-2023 End: 10-21-2023 Alcohol intake Ex-drinker (finding) [facility] Start: 1995 Sex Assigned At Female [facility] Start: 08-07-2023 Gender identity Identifies as female gender (finding) [facility] Start: 08-07-2023 Sexual orientation Heterosexual (finding) [...] Missed menses Non-compliant patient Smoker Thyroid disease ([facility]) No family history on file. Social History [...] ABIGAIL Chinchilla documented in this encounter [facility] 10-22-2023 Miscellaneous Notes Formattin g of this note might be different from the original. Please call us back to schedule an ultrasound next week. documented in this encounter [facility] 10-22-2023 Telephone encount er Note Please call us back to schedule an ultrasound next week. [facility] 10-22-2023 History of Presen t illness [...] increase p.o. hydration. documented in this encounter [facility] 10-16-2023 History of Presen t illness Narrative Headache/epigastric pain/blurry vision/swelling? No Cramping/contractions? No Abnormal vaginal discharge? No Spotting/vaginal bleeding? No Loss of fluid like your water may have broken? No Cats in the home? No Do you change the litter box? N/A Flu vaccine? No Genetic testing done this here or other office? Yes Have you been seen here at [facility] in a previous ? No Recent ER visits or hospitalizations? No Bring blood sugar log or meter with you today? (Please bring them with you for every visit at [facility]) N/A Traveled outside the country in the past 6 month No Any concerns that you would like me to mention to the provider today? No [facility] Maternal- Medicine Consult Note Reason For Consult: [...] Yes Not In System Ref Prov vit no.110-tacc-vtpzp acid ( VITAMIN) 27 mg iron- 800 [...] routine care in your office [facility], the CDC, and other organizations representing maternal and public health professionals recommend that , , and lactating people and those considering receive the COVID-19 vaccination. Vaccination is the best method to reduce maternal and complications of SARS-CoV-2 infection. This document was created with [employer] technology. Though I make every effort to review the dictation as it is transcribed, on occasion the spoken word can be misinterpreted by the technology leading to inappropriate words, phrases, or sentences. This note is addressed to the requesting provider as a consultation for clinical guidance. Specific medical abbreviations are occasionally used and those are generally approved by the [place]?Board of?Obstetrics and?Gynecology?as well as?James flores abbreviations. The above plan of care was based solely on the diagnoses for which a consultation was requested. ?More frequent testing may be indicated based on her other medical/obstetrical conditions. The management of other or medical conditions is beyond the scope of requested consultation and will continue to be followed by the primary supervisor industrial garment or primary care provider. Thank you for allowing me to participate in her care. Please contact me if you have any concerns. documented in this encounter [facility] 03-16-2022 Note PROCEDURE: XR SHOULD ER RT 2V or > HISTORY: Impingement syndrome of right shoulder region ; acute right shoulder pain, no known injury COMPARISON: None. FINDINGS: BONES:No fracture, acute abnormality, or significant arthropathy. SOFT TISSUES:No visible soft tissue swelling. EFFUSION:None visible. OTHER: Negative. IMPRESSION: 1. Normal examination. Electronically authenticated by: GENI CABRAL Date: 2022-03-16 18:16 [facility] Evaluation note Diagnosis High-risk in second trimester- Primary History of oligohydramnios in prior , currently with other poor obstetric history 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 20 weeks gestation of [facility] History of oligohydramnios in prior , currently - Primary with other poor obstetric history [facility] Diagnosis Second trimester state, incidental with normal glucose tolerance test (GTT) Diabetes mellitus screening Screening for diabetes mellitus History of miscarriage Personal history of other genital system and obstetric disorders History of oligohydramnios documented in this encounter [facility]ructionsNot on filedocumented in this encounterProSelect [facility] SystemInstructionsNot on filedocumented in this encounterProChildren'S Hospital For RehabilitationInstructionsNot on filedocumented in this encounterProSelect Medical [facility] SystemInstructionsNot on filedocumented in [facility] Summary Purpose Family History No Family History Records FoundNo Family History Records FoundNo Family History Records FoundNo Family History Records Found Advance Directives No Advanced Directives Records FoundNo Advanced Directives Records FoundNo Advanced Directives Records FoundNo Advanced Directives Records Found Reason for Referral Specialty Diagnoses / Procedures Referred By Contac t Referred To Contact Maternal and Medicine Diagnoses History of oligohydramnios in prior , currently Procedures US MFM with or without consult Haseeb Nice MD [address] [facility], [address] [place] [address] [facility] [address] [place] [address] Referral ID Status Reason Start Date Expiration Date V isits Requested Visits Authorized [id number] Pending Review 10/17/2023 10/16/2024 1 1 Additional Source Comments INFORMATION SOURCE (unrecogn ized section and content) DATE CREATED AUTHOR 01/31/2023 [facility] DATE CREATED AUTHOR AUTHOR'S ORGANIZ ATION 10/20/2023 [facility] DATE CREATED AUTHOR AUTHOR'S ORGANIZ ATION 11/24/2023 [facility] DATE CREATED AUTHOR AUTHOR'S ORGANIZ ATION 01/29/2024 [facility] EPIC Reason for Visit [...] BE BASED ON THE PRIMARY CLINICAL RECORDS. [employer] provides no warranty or guarantee of the accuracy or completeness of information in this document.
[2024-01-30 10:22] VITALS: BP 107/62; PULSE 82
== END 2024-01-30 10:45 | disposition home or self-care (01) ==
LOC: FBCO 07:39 → FBC 10:02
PROVIDERS: Visit Provider Obstetrics & Gynecology
DX: O99.280 Endocrine, nutritional and metabolic diseases complicating pregnancy, unspecified trimester (principal); E03.9 Hypothyroidism, unspecified; Z3A.00 Weeks of gestation of pregnancy not specified
CPT/HCPCS: 59025

== ENCOUNTER 2024-02-03 07:04 | Outpatient (OUT) | payer OTHER, SELFPAY ==
--- NOTE | 2024-02-03 | US_ITS ---
[address] [address] Patient Name: JERAMY SWEENEY MRN: [id number] date: 1995 Sex: F Assigned Patient Location: [facility] Current Patient Location: Accession/Order Number: [id number] Exam Date: 02/03/2024 14:20 Report Date: 02/04/2024 07:36 At the request of: BRIA DIAL Procedure: US OB growth EXAMINATION: US OB growth HISTORY: HISTORY OF OLIGOHYDRAMINOS Z87.59 COMPARISON: No relevant comparison available. FINDINGS: Heart Rate: 135.0 bpm Amniotic Fluid Volume: 24.5 cm Number: 1.0 Position: CEPHALIC Maximum Vertical Pocket: 4.3 cm cm 7.1 cm cm 6.6 cm cm 6.4 cm cm BIOMETRY: BPD: 8.8 cm cm; 35 weeks 5 days; 51% HC: 32.7 cmcm; 37 weeks 1 days , 47% AC: 32.7 cm cm; 36 weeks 4 days, 77% FL: 6.6 cm cm; 34 weeks 1 days; 8.1 % % EFW: 2813.1 grams, 6 lbs. 3 oz., 50% FL/AC: 20.3 FL/BPD: 75.1 HC/AC: 1.0 GESTATIONAL AGE: Age by EDC: 36 weeks 0 days GOOD by EDC: 03/02/2024 Age by US: 35 weeks 6 days GOOD by US: 03/03/2024 US/US OB growth IMPRESSION: Normal interval growth Electronically authenticated by: ALFA TEJEDA Date: 02/04/2024 07:36
--- NOTE | 2024-02-03 | US_ITS ---
[address] [address] Patient Name: JERAMY SWEENEY MRN: [id number] date: 1995 Sex: F Assigned Patient Location: US Current Patient Location: Accession/Order Number: [id number] Exam Date: 02/03/2024 14:20 Report Date: 02/04/2024 07:12 At the request of: BRIA DIAL Procedure: US OB BPP w non-stress EXAMINATION: US OB BPP w non-stress HISTORY: HISTORY OF OLIGOHYDRAMINOS Z87.59 COMPARISON: No relevant comparison available. TECHNIQUE: Ultrasound biophysical profile was performed in the radiology department. non-reactive stress testing was performed by nursing staff in the birthing center. FINDINGS: BREATHING MOVEMENTS: 2.0 GROSS BODY MOVEMENTS: 2.0 TONE: 2.0 QUALITATIVE AMNIOTIC FLUID VOLUME: 2.0 PRESENTATION: CEPHALIC HEART RATE: 135.0 bpm H.B./min AMNIOTIC FLUID VOLUME: 24.5 cm cm GESTATIONAL AGE: 36 weeks 0 days CONCLUSION: Total biophysical profile score: 8.0 Electronically authenticated by: ALFA TEJEDA Date: 02/04/2024 07:12
--- OUTSIDE RECORDS SUMMARY | 2024-02-03 07:07 | XMS_ITS | CCD ---
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 DRUG THERAPY] Onset: 01-23-2023 Episodic Other [...] [facility] Clarity, UA Clear N[facility] Healthpr re Color, UA Yellow [facility] Healthcar e Glucose, UA Negative Negative [...] Hospital pH, UA 5.5 5 - 9 [facility] Protein, UA Negative Negative - 1999(20) ++++ mg/dL [facility] Spec Grav, UA 1.030 1 - 1.03 [facility] Urobilinogen, UA 0.2 0.2 - 12 mg/dL [facility] Healthcar e PREG QUANT HCGon 01-28-2023 HCG QUANT 17 mIU/mL Normal [facility] Comment on above: Performed By: #### P REGQNT #### [facility] [address] [address] [address] Anna Romero HCG RANGE SEE BELOW Normal [facility] Comment on above: Result Comment: 5-50 0.2-1 WEEK 50-500 1-2 WEEKS 100-5,000 2-3 WEEKS 500-10,000 3-4 WEEKS 1,000-50,000 4-5 WEEKS 10,000-100,000 5-6 WEEKS 15,000-200,000 6-8 WEEKS 10,000-100,000 2-3 MONTHS Performed By: #### P REGQNT #### [facility] [address] [place] [address] Dr. Anna Romero PREG QUANT HCGon 01-23-2023 HCG QUANT 441 mIU/mL Normal [facility] Comment on above: Performed By: #### S CARLA GRASTCX #### [facility] [address] [place] [address] Dr. Anna Romero HCG RANGE SEE BELOW Normal [facility] Comment on above: Result Comment: 5-50 0.2-1 WEEK 50-500 1-2 WEEKS 100-5,000 2-3 WEEKS 500-10,000 3-4 WEEKS 1,000-50,000 4-5 WEEKS 10,000-100,000 5-6 WEEKS 15,000-200,000 6-8 WEEKS 10,000-100,000 2-3 MONTHS Performed By: #### S CARLA GRASTCX #### [facility] [address] [place] [address] Dr. Anna Romero ABO AND RH TYPEon 01-21-2023 ABO and Rh group Nom (Bld) ABO Rh Typing A Rh Positive Normal [facility] Comment on above: Performed By: #### S CARLA GRASTCX #### [facility] [address] [place] [address] Dr. Anna Romero ER URINE PROFILEon 3 Bilirubin Ql (U) Negative Normal NEGATIVE [facility] Comment on above: Performed By: #### VINCENT URIAS #### [facility] [address] [place] [address] Dr. Anna Romero Clarity (U) CLEAR Normal CLEAR [facility] Comment on above: Performed By: #### FANG URIASICRO #### [facility] [address] [place] [address] Dr. Anna Romero Color (U) YELLOW Normal YELLOW [facility] Comment on above: Performed By: #### Yared BARBOSA UMICRO #### [facility] [address] [place] [address] Dr. Anna BAER A micrscopic examination will be performed if indicated. Normal [facility] Comment on above: Performed By: #### Yared BARBOSA UMICRO #### [facility] [address] [place] [address] Dr. Anna Romero Glucose Ql (U) Negative Normal NEGATIVE [facility] Comment on above: Performed By: #### Yared BARBOSA UMICRO #### [facility] [address] [place] [address] Dr. Anna Romero Hemoglobin Ql (U) LARGE Abnormal NEGATIVE [facility] Comment on above: Performed By: #### Yared BARBOSA UMICRO #### [facility] [address] [place] [address] Dr. Anna Romero Ketones Ql (U) Negative Normal NEGATIVE [facility] Comment on above: Performed By: #### Yared BARBOSA UMICRO #### [facility] [address] [place] [address] Dr. Anna Romero LEUKOCYTES Negative Normal NEGATIVE [facility] Comment on above: Performed By: #### Yared BARBOSA UMICRO #### [facility] [address] [place] [address] Dr. Anna Romero Nitrite Ql (U) Negative Normal NEGATIVE [facility] Comment on above: Performed By: #### Yared BARBOSA UMICRO #### [facility] [address] [place] [address] Dr. Anna Romero pH (U) 5.5 [pH] Normal 5-9 [facility] Comment on above: Performed By: #### Yared BARBOSA UMICRO #### [facility] [address] [place] [address] Dr. Anna Romero SPEC GRAVITY >=1.030 Abnormal 1.005-<=1.025 [facility] Comment on above: Performed By: #### E RUR, UMICRO #### [facility] [address] [address] [address] Anna Romero UA PROTEIN TRACE Normal NEGATIVE/ TRACE [facility] Comment on above: Performed By: #### E JD BARBOSARO #### [facility] [address] [place] [address] Dr. Anna Romero UR MICRO IND INDICATED Normal [facility] Comment on above: Performed By: #### E JD BARBOSARO #### [facility] [address] [place] [address] Dr. Anna Romero Urobilinogen Qn (U) 0.2 {Joel'U}/dL Normal 0.2 - 1. 0 [facility] Comment on above: Performed By: #### JD URIASRO #### [facility] [address] [place] [address] Dr. Anna Romero PREG QUANT HCGon 01-21-2023 HCG QUANT 1693 mIU/mL Normal [facility] Comment on above: Performed By: #### S SCREleanor, GRASTCX #### [facility] [address] [place] [address] Dr. Anna Romero HCG RANGE SEE BELOW Normal [facility] Comment on above: Result Comment: 5-50 0.2-1 WEEK 50-500 1-2 WEEKS 100-5,000 2-3 WEEKS 500-10,000 3-4 WEEKS 1,000-50,000 4-5 WEEKS 10,000-100,000 5-6 WEEKS 15,000-200,000 6-8 WEEKS 10,000-100,000 2-3 MONTHS Performed By: #### S SCRN, GRASTCX #### [facility] [address] [place] [address] Dr. Anna Romero URINE MICROSCOPIC ONLYon BACTERIA TRACE Abnormal NONE SEEN [facility] Comment on above: Performed By: #### FANG URIASICRO #### [facility] [address] [place] [address] Dr. Anna Romero Bacteria identified Cx Nom (U) NOT INDICATED Normal [facility] Comment on above: Performed By: #### E RUR, UMICRO #### [facility] [address] [place] [address] Dr. Anna Romero CAST NONE SEEN Normal NONE SEEN [facility] Comment on above: Performed By: #### Yared BARBOSA UMICRO #### [facility] [address] [place] [address] Dr. Anna Romero Crystals LM Nom (Urine sed) NONE SEEN Normal NONE SEEN [facility] Comment on above: Performed By: #### Yared BARBOSA UMICRO #### [facility] [address] [place] [address] Dr. Anna Romero Epithelial cells LM Ql (Urine sed) RARE Normal NONE SEEN /RARE [facility] Comment on above: Performed By: #### Yared BARBOSA UMICRO #### [facility] [address] [place] [address] Dr. Anna Romero MUCOUS TRACE Abnormal NONE SEEN [facility] Comment on above: Performed By: #### Yared BARBOSA UMICRO #### [facility] [address] [place] [address] Dr. Anna Romero RBC 2-5 Abnormal 0-2 [facility] Comment on above: Performed By: #### Yared BARBOSA UMICRO #### [facility] [address] [place] [address] Dr. Anna Romero WBC 0-2 Abnormal NONE SEEN [facility] Comment on above: Performed By: #### Yared BARBOSA UMICRO #### [facility] [address] [place] [address] Dr. Anna Romero US PREG TVon 01-21-2023 [...] LUDWIG JEAN BAPTISTE Date: 2023-01-21 16:54 Normal [facility] ER URINE PROFILEon 3 Bilirubin Ql (U) Negative Normal NEGATIVE [facility] Comment on above: Performed By: #### E RUR #### [facility] [address] [place] [address] Dr. Anna Romero Clarity (U) CLEAR Normal CLEAR [facility] Comment on above: Performed By: #### E RUR #### [facility] [address] [place] [address] Dr. Anna Romero Color (U) YELLOW Normal YELLOW [facility] Comment on above: Performed By: #### E RUR #### [facility] [address] [place] [address] Dr. Anna BAER A micrscopic examination will be performed if indicated. Normal [facility] Comment on above: Performed By: #### E RUR #### [facility] [address] [place] [address] Dr. Anna Romero Glucose Ql (U) Negative Normal NEGATIVE [facility] Comment on above: Performed By: #### E RUR #### [facility] [address] [place] [address] Dr. Anna Romero Hemoglobin Ql (U) Negative Normal NEGATIVE [facility] Comment on above: Performed By: #### E RUR #### [facility] [address] [place] [address] Dr. Anna Romero Ketones Ql (U) Negative Normal NEGATIVE [facility] Comment on above: Performed By: #### E RUR #### [facility] [address] [place] [address] Dr. Anna Romero LEUKOCYTES Negative Normal NEGATIVE [facility] Comment on above: Performed By: #### E RUR #### [facility] [address] [place] [address] Dr. Anna Romero Nitrite Ql (U) Negative Normal NEGATIVE [facility] Comment on above: Performed By: #### E RUR #### [facility] [address] [place] [address] Dr. Anna Romero pH (U) 6.5 [pH] Normal 5-9 [facility] Comment on above: Performed By: #### E RUR #### [facility] [address] [place] [address] Dr. Anna Romero SPEC GRAVITY 1.025 Normal 1.005-<=1.025 [facility] Comment on above: Performed By: #### E RUR #### [facility] [address] [place] [address] Dr. Anna Romero UA PROTEIN TRACE Normal NEGATIVE/ TRACE [facility] Comment on above: Performed By: #### E RUR #### [facility] [address] [place] [address] Dr. Anna Romero UR MICRO IND NOT INDICATED Normal [facility] Comment on above: Performed By: #### E RUR #### [facility] [address] [place] [address] Dr. Anna Romero Urobilinogen Qn (U) 0.2 {Joel'U}/dL Normal 0.2 - 1. 0 [facility] Comment on above: Performed By: #### E RUR #### [facility] [address] [address] [address] Anna Romero GROUP A STREP CULTUREon 12-13 S. pyogenes Ag Ql (Unsp spec) Culture Observations: NEGATIVE FOR GROUP A STREPTOCOCCUS. Normal [facility] Comment on above: Performed By: #### S SCRN, GRASTCX #### [facility] [address] [address] [address] Anna Romero STREPT SCREENon 01-08-2023 STREP SCREEN A Negative Normal NEGATIVE [facility] Comment on above: Performed By: #### S SCRN, GRASTCX #### [facility] [address] [place] [address] Dr. Anna Romero SYMPTOMATIC COVID-19 ANTIGEN on 01-08-2023 EUA Statement SEE BELOW Normal [facility] Comment on above: Result Comment: This [...] By: #### S SCRN, GRASTCX #### [facility] [address] [place] [address] Dr. Anna Romero SARS-CoV-2 (COVID-19) RNA DAVY+probe Ql (Unsp spec) Positive Abnormal NEGATIVE [facility] Comment on above: Performed By: #### S SCRN, GRASTCX #### [facility] [address] [place] [address] Dr. Anna Romero US PREG TVon 05-31-2022 [...] CABRAL Date: 2022-05-31 19:46 Normal [facility] BILIRUBIN TOTALon 03-16-2022 Bilirubin [Mass/Vol] 0.3 mg/dL Normal 0.2-1.0 [facility] Comment on above: Performed By: #### T DALE #### [facility] [address] [place] [address] Dr. Anna Romero CBC AUTO DIFFon 03-16-2022 BASO # 0.0 103/ul Normal 0.0-0.1 [facility] Comment on above: Performed By: #### C BC #### [facility] [address] [place] [address] Dr. Anna Romero Basophils/100 WBC (Bld) 0.4 % Normal 0.2-2.0 [facility] Comment on above: Performed By: #### C BC #### [facility] [address] [place] [address] Dr. Anna Romero EO # 0.0 103/ul Normal 0.0-0.7 [facility] Comment on above: Performed By: #### C BC #### [facility] [address] [place] [address] Dr. Anna Romero Eosinophils/100 WBC (Bld) 0.2 % Critically low 0.9-7.0 [facility] Comment on above: Performed By: #### C BC #### [facility] [address] [place] [address] Dr. Anna Romero Erythrocyte distribution width (RBC) [Ratio] 12.8 % Normal 11.0-15.0 [facility] Comment on above: Performed By: #### C BC #### [facility] [address] [place] [address] Dr. Anna Romero Hematocrit (Bld) [Volume fraction] 39.2 % Normal 36.0-48.0 [facility] Comment on above: Performed By: #### C BC #### [facility] [address] [place] [address] Dr. Anna Romero Hemoglobin (Bld) [Mass/Vol] 12.9 g/dL Normal 12.0-16.0 [facility] Comment on above: Performed By: #### C BC #### [facility] [address] [place] [address] Dr. Anna Romero IG # 0.01 10e3/ul Normal 0.00-0.03 [facility] Comment on above: Performed By: #### C BC #### [facility] [address] [place] [address] Dr. Anna Romero IG % 0.2 % Normal 0.0-0.5 [facility] Comment on above: Performed By: #### C BC #### [facility] [address] [place] [address] Dr. Anna Romero LYMPH # 1.6 103/ul Normal 1.2-3.8 [facility] Comment on above: Performed By: #### C BC #### [facility] [address] [place] [address] Dr. Anna Romero Lymphocytes/100 WBC (Bld) 29.8 % Normal 20.5-60.0 [facility] Comment on above: Performed By: #### C BC #### [facility] [address] [place] [address] Dr. Anna Romero MANUAL DIFF REQ NO Normal [facility] Comment on above: Performed By: #### C BC #### [facility] [address] [place] [address] Dr. Anna Romero MCH (RBC) [Entitic mass] 31.8 pg Normal 26.7-34.0 [facility] Comment on above: Performed By: #### C BC #### [facility] [address] [place] [address] Dr. Anna Romero MCHC (RBC) [Mass/Vol] 32.9 g/dL Normal 29.9-35.2 [facility] Comment on above: Performed By: #### C BC #### [facility] [address] [place] [address] Dr. Anna Romero MCV (RBC) [Entitic vol] 96.6 fL Normal 81.0-99.0 [facility] Comment on above: Performed By: #### C BC #### [facility] [address] [place] [address] Dr. Anna Romero MONO # 0.4 103/ul Normal 0.3-0.8 [facility] Comment on above: Performed By: #### C BC #### [facility] [address] [place] [address] Dr. Anna Romero Monocytes/100 WBC (Bld) 7.2 % Normal 1.7-12.0 [facility] Comment on above: Performed By: #### C BC #### [facility] [address] [place] [address] Dr. Anna Romero NEUT # 3.3 103/ul Normal 1.4-6.5 [facility] Comment on above: Performed By: #### C BC #### [facility] [address] [place] [address] Dr. Anna Romero Neutrophils/100 WBC (Bld) 62.2 % Normal 43.0-75.0 [facility] Comment on above: Performed By: #### C BC #### [facility] [address] [place] [address] Dr. Anna Romero Platelet mean volume (Bld) [Entitic vol] 10.0 fL Normal 9.5-13.5 [facility] Comment on above: Performed By: #### C BC #### [facility] [address] [place] [address] Dr. Anna Romero PLT 153 103/ul Normal 150-450 [facility] Comment on above: Performed By: #### C BC #### [facility] [address] [address] [address] Anna Romero RBC 4.06 106/ul Critically low 4.20-5.40 [facility] Comment on above: Performed By: #### C BC #### [facility] [address] [place] [address] Dr. Anna Romero WBC 5.3 103/ul Normal 4.0-11.0 [facility] Comment on above: Performed By: #### C BC #### [facility] [address] [place] [address] Dr. Anna Romero FREE T3on 03-16-2022 FREE T3 3.18 pg/mlL Normal 2.18-3.98 [facility] Comment on above: Performed By: #### S SCREleanor GRASTCX #### [facility] [address] [place] [address] Dr. Anna Romero FREE T4on 03-16-2022 Free T4 [Mass/Vol] 1.08 ng/dL Normal 0.76-1.46 [facility] Comment on above: Performed By: #### F T4 #### [facility] [address] [place] [address] Dr. Anna Romero PROF 14(COMP METB)on 022 Albumin [Mass/Vol] 4.3 g/dL Normal 3.4-5.0 [facility] Comment on above: Performed By: #### S CARLA GRASTCX #### [facility] [address] [place] [address] Dr. Anna Romero Albumin/Globulin [Mass ratio] 1.2 {ratio} Normal [facility] Comment on above: Performed By: #### S CARLA GRASTCX #### [facility] [address] [place] [address] Dr. Anna Romero ALP [Catalytic activity/Vol] 60 U/L Normal 46-116 [facility] Comment on above: Performed By: #### S SCREleanor GRASTCX #### [facility] [address] [address] [address] Anna Romero ALT [Catalytic activity/Vol] 25 U/L Normal 14-59 [facility] Comment on above: Performed By: #### S SCRN, GRASTCX #### [facility] [address] [place] [address] Dr. Anna Romero Anion gap [Moles/Vol] 13.8 mmol/L Normal [facility] Comment on above: Performed By: #### S SCRN, GRASTCX #### [facility] [address] [place] [address] Dr. Anna Romero AST [Catalytic activity/Vol] 21 U/L Normal 15-37 [facility] Comment on above: Performed By: #### S SCRN, GRASTCX #### [facility] [address] [place] [address] Dr. Anna Romero Calcium [Mass/Vol] 9.4 mg/dL Normal 8.5-10.1 [facility] Comment on above: Performed By: #### S SCRN, GRASTCX #### [facility] [address] [place] [address] Dr. Anna Romero Chloride [Moles/Vol] 101 mmol/L Normal 98-107 [facility] Comment on above: Performed By: #### S SCRN, GRASTCX #### [facility] [address] [place] [address] Dr. Anna Romero CO2 [Moles/Vol] 26.8 mmol/L Normal 21.0-32.0 [facility] Comment on above: Performed By: #### S SCRN, GRASTCX #### [facility] [address] [place] [address] Dr. Anna Romero Creatinine [Mass/Vol] 0.87 mg/dL Normal 0.55-1.02 [facility] Comment on above: Performed By: #### S SCRN, GRASTCX #### [facility] [address] [place] [address] Dr. Anna Romero EGFR-AF NORWEGIAN >60 Normal >=60 [facility] Comment on above: Performed By: #### S SCRN, GRASTCX #### [facility] [address] [address] [address] Anna Romero EGFR-NON AF NORWEGIAN >60 Normal >=60 [facility] Comment on above: Performed By: #### S SCRN, GRASTCX #### [facility] [address] [address] [address] Anna Romero Globulin (S) [Mass/Vol] 3.5 g/dL Normal [facility] Comment on above: Performed By: #### S SCRN, GRASTCX #### [facility] [address] [address] [address] Anna Romero Glucose [Mass/Vol] 80 mg/dL Normal 74-106 [facility] Comment on above: Performed By: #### S SCRN, GRASTCX #### [facility] [address] [place] [address] Dr. Anna Romero Potassium [Moles/Vol] 3.6 mmol/L Normal 3.5-5.1 [facility] Comment on above: Performed By: #### S SCRN, GRASTCX #### [facility] [address] [address] [address] Anna Romero Protein [Mass/Vol] 7.8 g/dL Normal 6.4-8.2 [facility] Comment on above: Performed By: #### S SCRN, GRASTCX #### [facility] [address] [place] [address] Dr. Anna Romero Sodium [Moles/Vol] 138 mmol/L Normal 136-145 [facility] Comment on above: Performed By: #### S SCRN, GRASTCX #### [facility] [address] [place] [address] Dr. Anna Romero Urea nitrogen [Mass/Vol] 12.0 mg/dL Normal 7.0-18.0 [facility] Comment on above: Performed By: #### S SCRN, GRASTCX #### [facility] [address] [address] [address] Anna Romero Urea nitrogen/Creatinine [Mass ratio] 13.8 mg/mg Normal [facility] Comment on above: Performed By: #### S SCRN, GRASTCX #### [facility] [address] [place] [address] Dr. Anna Romero TSHon 03-16-2022 TSH 2.442 uIU/mL Normal 0.358-3.740 [facility] Comment on above: Performed By: #### S SCRN, GRASTCX #### [facility] [address] [place] [address] Dr. Anna Romero TSH RANGE SEE BELOW Normal [facility] Comment on above: Result Comment: <0.3 4 UIU/ml HYPERTHYROID 0.34-5.60 UIU/ml EUTHYROID >5.60 UIU/ml HYPOTHYROID Performed By: #### S SCRN, GRASTCX #### [facility] [address] [place] [address] Dr. Anna Romero Vital Signs Date Time Vital Sign Value Performing Clinician Faci lity 11-27-2023 14:46-0500 Body mass index (BMI) [Ratio] 25.66 kg/m2 Rosana HAYES Work Phone: [facility] 11-27-2023 14:46-0500 Body weight 72.12 kg Rosana Galo PA Work Phone: [facility] 11-27-2023 14:46-0500 Diastolic blood pressure 60 mm[Hg] Rosana HAYES Work Phone: [facility] 11-27-2023 14:46-0500 Systolic blood pressure 102 mm[Hg] Rosana Galo PA Work Phone: [facility] [...] Available Start: 11-27-2023 End: 11-27-2023 ambulatory ROSANA IARJ Not Available Start: 11-27-2023 End: 11-27-2023 Office outpatient visit 15 minutes Rosana HAYES Work Phone: [facility] Comment on above: Second trimester pre gnancy; with normal glucose tolerance test (GTT); Diabetes mellitus screening; History of miscarriage; History of oligohydramnios Start: 11-19-2023 End: 11-20-[facility]: 10-29-2023 End: 10-30-2023 ambulatory BRIA R [facility] Start: 10-28-2023 End: 10-28-2023 ambulatory BRIA YOJANA Not Available Start: 10-22-2023 Documentation procedure Haseeb Nice MD Work Phone: [facility] Start: 10-22-2023 Telephone encounter Rachelle TREJO [facility] Start: 10-21-2023 Chart abstractnereida berger MD Work Phone: [facility] Start: 10-17-2023 Orders Only Robbi Rodriguez [facility] Comment on above: History of oligohydr amnios in prior , currently (Primary Dx) Start: 10-16-2023 End: 10-17-2023 ambulatory BRIA BALES [facility] Start: 10-16-2023 End: 10-16-2023 Office outpatient new 45 minutes Hind Darius Nice MD Work Phone: [facility] Comment on above: High-risk in second trimester (Primary Dx); History of oligohydramnios in prior , currently ; 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; 20 weeks gestation of Start: 10-15-2023 Chart abstracting Scanning Pro vider External [facility] Start: 10-08-2023 End: 10-08-2023 ambulatory BRIA [...] , currently Expected: 10/17/2024 (Approximate), Expires: 10/17/2024 [facility] Work Phone: Comment on above: Expected: 10/17/2024 (Approximate), Expires: 10/17/2024 Start: 10-16-2024 Adult BMI Screening Adult BMI Screen ing [facility] Start: 10-16-2024 Tobacco Screening Tobacco Screening [facility] Start: 12-11-2023 End: 12-11-2023 Patient encounter procedure 12/11/2023 10:20 AM EST Routine [facility] [address] [place] [id number] Bria Bales, DO [address] [place] [address] [facility] Start: 11-27-2023 End: 11-27-2024 [...] encounter procedure 11/19/2023 9:15 AM EST Appointment [facility]ound [address] [place] [address] [facility] Start: 10-29-2023 End: 10-29-2023 Patient encounter procedure 10/29/2023 9:15 AM EST Appointment [facility] - [facility]ound [address] [place] [address] [facility] Start: 10-16-2023 End: 10-16-2023 Patient encounter procedure 10/16/2023 1:00 PM EST Office Visit [facility] [address] [place] [address] Haseeb Nice MD [address], [address] [place] [address] [facility] Start: 10-16-2023 Subsequent hospital visit by physician 10/16/2023 11:30 AM EST Hospital Encounter [facility] [address] [place] [address] [facility] Start: 06-14-2023 Influenza vaccination Influenza [...] Hospital Payers Date Payer Category Payer Medicaid [id number] 1993 Unknown [id number] 2.16.84 0.1.890389.3.579.2.593 1993 Unknown [id number] 2.16.84 0.1.225796.3.579.2.593 1993 Unknown [id number] 2.16.84 0.1.285273.3.579.2.593 1993 Unknown [id number] 2.16.84 0.1.857794.3.579.2.593 1993 Unknown [id number] 2.16.84 0.1.668288.3.579.2.593 1993 Unknown [id number] 2.16.84 0.1.210602.3.579.2.593 1993 Unknown [id number] 2.16.84 0.1.012037.3.579.2.593 1993 Unknown [id number] 2.16.84 0.1.729806.3.579.2.593 1993 Unknown [id number] 2.16.84 0.1.053193.3.579.2.593 1993 Unknown [id number] 2.16.84 0.1.566104.3.579.2.593 1993 Unknown [id number] 2.16.84 0.1.055080.3.579.2.593 1993 Unknown [id number] 2.16.84 0.1.720293.3.579.2.593 1993 Unknown [id number] 2.16.84 0.1.271314.3.579.2.1286 1993 Unknown [id number] 2.16.84 0.1.613882.3.579.2.1286 1993 Unknown [id number] 2.16.8 40.1.923071.3.579.2.1286 1993 Unknown [id number] 2.16.84 0.1.188176.3.579.2.1286 1993 Unknown [id number] 2.16.84 0.1.654452.3.579.2.1259 1993 Unknown [id number] 2.16.84 0.1.768079.3.579.2.1259 1993 Unknown [id number] 2.16.84 0.1.022971.3.579.2.1259 1993 Unknown [id number] 2.16.84 0.1.030850.3.579.2.125 1993 Unknown [id number] 2.16.84 0.1.320303.3.579.2.1259 1993 Unknown [id number] 2.16.84 0.1.955013.3.579.2.1259 1993 Unknown [id number] 2.16.840 .1.487156.3.579.2.1259 1993 Unknown [id number] 2.16.840 .1.414999.3.579.2.1259 1959 Self-pay [id number] 1959 Unknown [id number] 1961 Unknown [id number] Social History Date Type Detail Facility Start: 10-15-2023 Tobacco smoking status NHIS Tobacco smoking consumption unknown [facility] Start: 03-23-2019 End: 10-16-2023 History of Social function [facility] Start: 03-23-2019 End: 10-16-2023 Housing Instability [facility] Housing Instability Unknown [facility] Start: 06-10-2023 [facility] Start: 1995 Sex Assigned At Not on file [facility] Start: 10-16-2023 Tobacco smoking status MSIS Smokes tobacco daily [facility] History of tobacco use Cigarette Smoker P [facility] Start: 10-16-2023 Tobacco use and exposure Smokeless tobacco non-user [facility] Start: 10-16-2023 End: 10-21-2023 Alcohol intake Ex-drinker (finding) [facility] Start: 1995 Sex Assigned At Female [facility] Start: 08-07-2023 Gender identity Identifies as female gender (finding) [facility] Start: 08-07-2023 Sexual orientation Heterosexual (finding) [facility] Healthcare Goals Date Patient Goal Desired [...] Missed menses Non-compliant patient Smoker Thyroid disease ([facility]) No family history on file. Social History [...] week. documented in this encounter [facility] 10-22-2023 Telephone encount er Note Please call us back to schedule an ultrasound next week. [facility] 10-22-2023 History of Presen t illness [...] Yes Have you been seen here at [facility] in a previous ? No Recent ER visits or hospitalizations? No Bring blood sugar log or meter with you today? (Please bring them with you for every visit at [facility]) N/A Traveled outside the country in [...] Yes Not In System Ref Prov vit no.282-yxrh-[id number] acid ( VITAMIN) 27 mg iron- 800 [...] routine care in your office [facility], the CDC, and other organizations representing maternal and public health professionals recommend that , , and lactating people and those considering receive the COVID-19 vaccination. Vaccination is the best method to reduce maternal and complications of SARS-CoV-2 infection. This document was created with [employer] technology. Though I make every effort to review the dictation as it is transcribed, on occasion the spoken word can be misinterpreted by the technology leading to inappropriate words, phrases, or sentences. This note is addressed to the requesting provider as a consultation for clinical guidance. Specific medical abbreviations are occasionally used and those are generally approved by the [place]?Board of?Obstetrics and?Gynecology?as well as?James flores abbreviations. The above plan of care was based solely on the diagnoses for which a consultation was requested. ?More frequent testing may be indicated based on her other medical/obstetrical conditions. The management of other or medical conditions is beyond the scope of requested consultation and will continue to be followed by the primary long wall shear operator or primary care provider. Thank you for allowing me to participate in her care. Please contact me if you have any concerns. documented in this encounter [facility] 03-16-2022 Note PROCEDURE: XR SHOULD ER RT 2V or > HISTORY: Impingement syndrome of right shoulder region ; acute right shoulder pain, no known injury COMPARISON: None. FINDINGS: BONES:No fracture, acute abnormality, or significant arthropathy. SOFT TISSUES:No visible soft tissue swelling. EFFUSION:None visible. OTHER: Negative. IMPRESSION: 1. Normal examination. Electronically authenticated by: GENI CABRAL Date: 2022-03-16 18:16 [facility] Evaluation note Diagnosis High-risk in second trimester- Primary History of oligohydramnios in prior , currently with other poor obstetric history 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 20 weeks gestation of [facility] History of oligohydramnios in prior , currently - Primary with other poor obstetric history [facility] Diagnosis Second trimester state, incidental with normal glucose tolerance test (GTT) Diabetes mellitus screening Screening for diabetes mellitus History of miscarriage Personal history of other genital system and obstetric disorders History of oligohydramnios documented in this encounter [facility]ructionsNot on filedocumented in this [facility]Pro[facility] SystemInstructionsNot on filedocumented in this encounterProTuscarawas HospitalInstructionsNot on filedocumented in this encounterProMount St. [facility] SystemInstructionsNot on filedocumented in this [facility] Summary Purpose Family History No Family [...] without consult Haseeb Nice MD [address] [facility], [address] [place] [address] [facility] [address] [place] [address] Referral ID Status Reason Start Date Expiration Date V isits Requested Visits Authorized [id number] Pending Review 10/17/2023 10/16/2024 1 1 Additional Source Comments INFORMATION SOURCE (unrecogn ized section and content) DATE CREATED AUTHOR 01/31/2023 [facility] DATE CREATED AUTHOR AUTHOR'S ORGANIZ ATION 10/20/2023 [facility] DATE CREATED AUTHOR AUTHOR'S ORGANIZ ATION 11/24/2023 [facility] DATE CREATED AUTHOR AUTHOR'S ORGANIZ ATION 01/29/2024 [facility] EPIC Reason for Visit (unrecogniz [...] BE BASED ON THE PRIMARY CLINICAL RECORDS. [employer] provides no warranty or guarantee of the accuracy or completeness of information in this document.
[2024-02-03 14:04] VITALS: BP 118/74; PULSE 115
== END 2024-02-03 15:00 | disposition home or self-care (01) ==
LOC: US 07:04 → FBC 13:57
PROVIDERS: Visit Provider Obstetrics & Gynecology
DX: Z34.93 Encounter for supervision of normal pregnancy, unspecified, third trimester (principal); Z87.59 Personal history of other complications of pregnancy, childbirth and the puerperium; E07.9 Disorder of thyroid, unspecified; Z3A.36 36 weeks gestation of pregnancy
CPT/HCPCS: 76816; 76818; 87081

== ENCOUNTER 2024-02-03 22:24 | Outpatient (REF) | payer OTHER, SELFPAY ==
--- OUTSIDE RECORDS SUMMARY | 2024-02-03 22:31 | XMS_ITS | CCD ---
Author Organization [facility] Care Team Providers Care Assistant Librarian Name Role Phone RUSSELL, DR DEBBIE Mohan [...] ., DR FRASER Consulting Unavailable ZIEBER, DR GNEI Lemos Consulting Unavailable YOJANA ., DR FRASER [...] for nausea or vomiting. 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 CURRENT DRUG THERAPY] Onset: 01-23-2023 Episodic Other [...] UA Negative Negative - 4(70) +++ mg/dL [facility] Blood, UA Negative Negative - 50 Felice/mcL [facility] Clarity, UA Clear [facility] Color, UA Yellow [facility] Health[facility] Glucose, UA Negative Negative - 1999(110) ++++ mg/dL [facility] Interpretation and review of laboratory results Normal [facility] Ketones, UA Negative Negative - 160(16) ++++ mg/dL [facility] Leukocytes, UA Negative Negative - 500+++ Regina/mcL [facility] Nitrite, UA Negative Negative - Positive [facility] pH, UA 5.5 5 - 9 [facility] Protein, UA Negative Negative - 1999(20) ++++ mg/dL [facility] Spec Grav, UA 1.030 1 - 1.03 [facility] Urobilinogen, UA 0.2 0.2 - 12 mg/dL [facility] e PREG QUANT HCGon 01-28-2023 HCG QUANT 17 mIU/mL Normal [facility] Comment on above: Performed By: #### P REGQNT #### [facility] [address] [address] [address] Anna Romero HCG RANGE SEE BELOW Normal [facility] Comment on above: Result Comment: 5-50 0.2-1 WEEK 50-500 1-2 WEEKS 100-5,000 2-3 WEEKS 500-10,000 3-4 WEEKS 1,000-50,000 4-5 WEEKS 10,000-100,000 5-6 WEEKS 15,000-200,000 6-8 WEEKS 10,000-100,000 2-3 MONTHS Performed By: #### P REGQNT #### [facility] [address] [place] [address] Dr. Anna Romero PREG QUANT HCGon 01-23-2023 HCG QUANT 441 mIU/mL Normal [facility] Comment on above: Performed By: #### S CARLA GRASTCX #### [facility] [address] [place] [address] Dr. Anna Romero HCG RANGE SEE BELOW Normal [facility] Comment on above: Result Comment: 5-50 0.2-1 WEEK 50-500 1-2 WEEKS 100-5,000 2-3 WEEKS 500-10,000 3-4 WEEKS 1,000-50,000 4-5 WEEKS 10,000-100,000 5-6 WEEKS 15,000-200,000 6-8 WEEKS 10,000-100,000 2-3 MONTHS Performed By: #### S CARLA GRASTCX #### [facility] [address] [place] [address] Dr. Anna Romero ABO AND RH TYPEon 01-21-2023 ABO and Rh group Nom (Bld) ABO Rh Typing A Rh Positive Normal [facility] Comment on above: Performed By: #### S CARLA GRASTCX #### [facility] [address] [place] [address] Dr. Anna Romero ER URINE PROFILEon 3 Bilirubin Ql (U) Negative Normal NEGATIVE [facility] Comment on above: Performed By: #### VINCENT URIAS #### [facility] [address] [place] [address] Dr. Anna Romero Clarity (U) CLEAR Normal CLEAR [facility] Comment on above: Performed By: #### FANG URAISICRO #### [facility] [address] [place] [address] Dr. Anna Romero Color (U) YELLOW Normal YELLOW [facility] Comment on above: Performed By: #### Yared BARBOSA UMICRO #### [facility] [address] [place] [address] Dr. Anna BAER A micrscopic examination will be performed if indicated. Normal [facility] Comment on above: Performed By: #### Yared BARBOSA UMICRO #### [facility] [address] [place] [address] Dr. Anna Romero Glucose Ql (U) Negative Normal NEGATIVE [facility] Comment on above: Performed By: #### Yared BARBOSA UMICRO #### [facility] [address] [place] [address] Dr. Anna Romero Hemoglobin Ql (U) LARGE Abnormal NEGATIVE [facility] Comment on above: Performed By: #### Yared BARBOSA UMICRO #### [facility] [address] [place] [address] Dr. Anna Romero Ketones Ql (U) Negative Normal NEGATIVE [facility] Comment on above: Performed By: #### Yared BARBOSA UMICRO #### [facility] [address] [place] [address] Dr. Anna Romero LEUKOCYTES Negative Normal NEGATIVE [facility] Comment on above: Performed By: #### Yared BARBOSA UMICRO #### [facility] [address] [place] [address] Dr. Anna Romero Nitrite Ql (U) Negative Normal NEGATIVE [facility] Comment on above: Performed By: #### Yared BARBOSA UMICRO #### [facility] [address] [place] [address] Dr. Anna Romero pH (U) 5.5 [pH] Normal 5-9 [facility] Comment on above: Performed By: #### Yared BARBOSA UMICRO #### [facility] [address] [place] [address] Dr. Anna Romero SPEC GRAVITY >=1.030 Abnormal 1.005-<=1.025 [facility] Comment on above: Performed By: #### E RUR, UMICRO #### [facility] [address] [address] [address] Anna Romero UA PROTEIN TRACE Normal NEGATIVE/ TRACE [facility] Comment on above: Performed By: #### E JD BARBOSARO #### [facility] [address] [place] [address] Dr. Anna Romero UR MICRO IND INDICATED Normal [facility] Comment on above: Performed By: #### E JD BARBOSARO #### [facility] [address] [place] [address] Dr. Anna Romero Urobilinogen Qn (U) 0.2 {Joel'U}/dL Normal 0.2 - 1. 0 [facility] Comment on above: Performed By: #### JD URIASRO #### [facility] [address] [place] [address] Dr. Anna Romero PREG QUANT HCGon 01-21-2023 HCG QUANT 1693 mIU/mL Normal [facility] Comment on above: Performed By: #### S SCREleanor, GRASTCX #### [facility] [address] [place] [address] Dr. Anna Romero HCG RANGE SEE BELOW Normal [facility] Comment on above: Result Comment: 5-50 0.2-1 WEEK 50-500 1-2 WEEKS 100-5,000 2-3 WEEKS 500-10,000 3-4 WEEKS 1,000-50,000 4-5 WEEKS 10,000-100,000 5-6 WEEKS 15,000-200,000 6-8 WEEKS 10,000-100,000 2-3 MONTHS Performed By: #### S SCRN, GRASTCX #### [facility] [address] [place] [address] Dr. Anna Romero URINE MICROSCOPIC ONLYon BACTERIA TRACE Abnormal NONE SEEN [facility] Comment on above: Performed By: #### FANG URIASICRO #### [facility] [address] [place] [address] Dr. Anna Romero Bacteria identified Cx Nom (U) NOT INDICATED Normal [facility] Comment on above: Performed By: #### E RUR, UMICRO #### [facility] [address] [place] [address] Dr. Anna Romero CAST NONE SEEN Normal NONE SEEN [facility] Comment on above: Performed By: #### Yared BARBOSA UMICRO #### [facility] [address] [place] [address] Dr. Anna Romero Crystals LM Nom (Urine sed) NONE SEEN Normal NONE SEEN [facility] Comment on above: Performed By: #### Yared BARBOSA UMICRO #### [facility] [address] [place] [address] Dr. Anna Romero Epithelial cells LM Ql (Urine sed) RARE Normal NONE SEEN /RARE [facility] Comment on above: Performed By: #### Yared BARBOSA UMICRO #### [facility] [address] [place] [address] Dr. Anna Romero MUCOUS TRACE Abnormal NONE SEEN [facility] Comment on above: Performed By: #### Yared BARBOSA UMICRO #### [facility] [address] [place] [address] Dr. Anna Romero RBC 2-5 Abnormal 0-2 [facility] Comment on above: Performed By: #### Yared BARBOSA UMICRO #### [facility] [address] [place] [address] Dr. Anna Romero WBC 0-2 Abnormal NONE SEEN [facility] Comment on above: Performed By: #### Yared BARBOSA UMICRO #### [facility] [address] [place] [address] Dr. Anna Romero US PREG TVon 01-21-2023 [...] LUDWIG JEAN BAPTISTE Date: 2023-01-21 16:54 Normal [facility] ER URINE PROFILEon 3 Bilirubin Ql (U) Negative Normal NEGATIVE [facility] Comment on above: Performed By: #### E RUR #### [facility] [address] [place] [address] Dr. Anna Romero Clarity (U) CLEAR Normal CLEAR [facility] Comment on above: Performed By: #### E RUR #### [facility] [address] [place] [address] Dr. Anna Romero Color (U) YELLOW Normal YELLOW [facility] Comment on above: Performed By: #### E RUR #### [facility] [address] [place] [address] Dr. Anna BAER A micrscopic examination will be performed if indicated. Normal [facility] Comment on above: Performed By: #### E RUR #### [facility] [address] [place] [address] Dr. Anna Romero Glucose Ql (U) Negative Normal NEGATIVE [facility] Comment on above: Performed By: #### E RUR #### [facility] [address] [place] [address] Dr. Anna Romero Hemoglobin Ql (U) Negative Normal NEGATIVE [facility] Comment on above: Performed By: #### E RUR #### [facility] [address] [place] [address] Dr. Anna Romero Ketones Ql (U) Negative Normal NEGATIVE [facility] Comment on above: Performed By: #### E RUR #### [facility] [address] [place] [address] Dr. Anna Romero LEUKOCYTES Negative Normal NEGATIVE [facility] Comment on above: Performed By: #### E RUR #### [facility] [address] [place] [address] Dr. Anna Romero Nitrite Ql (U) Negative Normal NEGATIVE [facility] Comment on above: Performed By: #### E RUR #### [facility] [address] [place] [address] Dr. Anna Romero pH (U) 6.5 [pH] Normal 5-9 [facility] Comment on above: Performed By: #### E RUR #### [facility] [address] [place] [address] Dr. Anna Romero SPEC GRAVITY 1.025 Normal 1.005-<=1.025 [facility] Comment on above: Performed By: #### E RUR #### [facility] [address] [place] [address] Dr. Anna Romero UA PROTEIN TRACE Normal NEGATIVE/ TRACE [facility] Comment on above: Performed By: #### E RUR #### [facility] [address] [place] [address] Dr. Anna Romero UR MICRO IND NOT INDICATED Normal [facility] Comment on above: Performed By: #### E RUR #### [facility] [address] [place] [address] Dr. Anna Romero Urobilinogen Qn (U) 0.2 {Joel'U}/dL Normal 0.2 - 1. 0 [facility] Comment on above: Performed By: #### E RUR #### [facility] [address] [address] [address] Anna Romero GROUP A STREP CULTUREon 12-13 S. pyogenes Ag Ql (Unsp spec) Culture Observations: NEGATIVE FOR GROUP A STREPTOCOCCUS. Normal [facility] Comment on above: Performed By: #### S SCRN, GRASTCX #### [facility] [address] [address] [address] Anna Romero STREPT SCREENon 01-08-2023 STREP SCREEN A Negative Normal NEGATIVE [facility] Comment on above: Performed By: #### S SCRN, GRASTCX #### [facility] [address] [place] [address] Dr. Anna Romero SYMPTOMATIC COVID-19 ANTIGEN on 01-08-2023 EUA Statement SEE BELOW Normal [facility] Comment on above: Result Comment: This [...] Performed By: #### S SCRN, GRASTCX #### [facility] [address] [place] [address] Dr. Anna Romero SARS-CoV-2 (COVID-19) RNA DAVY+probe Ql (Unsp spec) Positive Abnormal NEGATIVE [facility] Comment on above: Performed By: #### S SCRN, GRASTCX #### [facility] [address] [place] [address] Dr. Anna Romero US PREG TVon 05-31-2022 [...] GENI CABRAL Date: 2022-05-31 19:46 Normal [facility] BILIRUBIN TOTALon 03-16-2022 Bilirubin [Mass/Vol] 0.3 mg/dL Normal 0.2-1.0 [facility] Comment on above: Performed By: #### T DALE #### [facility] [address] [place] [address] Dr. Anna Romero CBC AUTO DIFFon 03-16-2022 BASO # 0.0 103/ul Normal 0.0-0.1 [facility] Comment on above: Performed By: #### C BC #### [facility] [address] [place] [address] Dr. Anna Romero Basophils/100 WBC (Bld) 0.4 % Normal 0.2-2.0 [facility] Comment on above: Performed By: #### C BC #### [facility] [address] [place] [address] Dr. Anna Romero EO # 0.0 103/ul Normal 0.0-0.7 [facility] Comment on above: Performed By: #### C BC #### [facility] [address] [place] [address] Dr. Anna Romero Eosinophils/100 WBC (Bld) 0.2 % Critically low 0.9-7.0 [facility] Comment on above: Performed By: #### C BC #### [facility] [address] [place] [address] Dr. Anna Romero Erythrocyte distribution width (RBC) [Ratio] 12.8 % Normal 11.0-15.0 [facility] Comment on above: Performed By: #### C BC #### [facility] [address] [place] [address] Dr. Anna Romero Hematocrit (Bld) [Volume fraction] 39.2 % Normal 36.0-48.0 [facility] Comment on above: Performed By: #### C BC #### [facility] [address] [place] [address] Dr. Anna Romero Hemoglobin (Bld) [Mass/Vol] 12.9 g/dL Normal 12.0-16.0 [facility] Comment on above: Performed By: #### C BC #### [facility] [address] [place] [address] Dr. Anna Romero IG # 0.01 10e3/ul Normal 0.00-0.03 [facility] Comment on above: Performed By: #### C BC #### [facility] [address] [place] [address] Dr. Anna Romero IG % 0.2 % Normal 0.0-0.5 [facility] Comment on above: Performed By: #### C BC #### [facility] [address] [place] [address] Dr. Anna Romero LYMPH # 1.6 103/ul Normal 1.2-3.8 [facility] Comment on above: Performed By: #### C BC #### [facility] [address] [place] [address] Dr. Anna Romero Lymphocytes/100 WBC (Bld) 29.8 % Normal 20.5-60.0 [facility] Comment on above: Performed By: #### C BC #### [facility] [address] [place] [address] Dr. Anna Romero MANUAL DIFF REQ NO Normal [facility] Comment on above: Performed By: #### C BC #### [facility] [address] [place] [address] Dr. Anna Romero MCH (RBC) [Entitic mass] 31.8 pg Normal 26.7-34.0 [facility] Comment on above: Performed By: #### C BC #### [facility] [address] [place] [address] Dr. Anna Romero MCHC (RBC) [Mass/Vol] 32.9 g/dL Normal 29.9-35.2 [facility] Comment on above: Performed By: #### C BC #### [facility] [address] [place] [address] Dr. Anna Romero MCV (RBC) [Entitic vol] 96.6 fL Normal 81.0-99.0 [facility] Comment on above: Performed By: #### C BC #### [facility] [address] [place] [address] Dr. Anna Romero MONO # 0.4 103/ul Normal 0.3-0.8 [facility] Comment on above: Performed By: #### C BC #### [facility] [address] [place] [address] Dr. Anna Romero Monocytes/100 WBC (Bld) 7.2 % Normal 1.7-12.0 [facility] Comment on above: Performed By: #### C BC #### [facility] [address] [place] [address] Dr. Anna Romero NEUT # 3.3 103/ul Normal 1.4-6.5 [facility] Comment on above: Performed By: #### C BC #### [facility] [address] [place] [address] Dr. Anna Romero Neutrophils/100 WBC (Bld) 62.2 % Normal 43.0-75.0 [facility] Comment on above: Performed By: #### C BC #### [facility] [address] [place] [address] Dr. Anna Romero Platelet mean volume (Bld) [Entitic vol] 10.0 fL Normal 9.5-13.5 [facility] Comment on above: Performed By: #### C BC #### [facility] [address] [place] [address] Dr. Anna Romero PLT 153 103/ul Normal 150-450 [facility] Comment on above: Performed By: #### C BC #### [facility] [address] [address] [address] Anna Romero RBC 4.06 106/ul Critically low 4.20-5.40 [facility] Comment on above: Performed By: #### C BC #### [facility] [address] [place] [address] Dr. Anna Romero WBC 5.3 103/ul Normal 4.0-11.0 [facility] Comment on above: Performed By: #### C BC #### [facility] [address] [place] [address] Dr. Anna Romero FREE T3on 03-16-2022 FREE T3 3.18 pg/mlL Normal 2.18-3.98 [facility] Comment on above: Performed By: #### S SCREleanor GRASTCX #### [facility] [address] [place] [address] Dr. Anna Romero FREE T4on 03-16-2022 Free T4 [Mass/Vol] 1.08 ng/dL Normal 0.76-1.46 [facility] Comment on above: Performed By: #### F T4 #### [facility] [address] [place] [address] Dr. Anna Romero PROF 14(COMP METB)on 022 Albumin [Mass/Vol] 4.3 g/dL Normal 3.4-5.0 [facility] Comment on above: Performed By: #### S CARLA GRASTCX #### [facility] [address] [place] [address] Dr. Anna Romero Albumin/Globulin [Mass ratio] 1.2 {ratio} Normal [facility] Comment on above: Performed By: #### S CARLA GRASTCX #### [facility] [address] [place] [address] Dr. Anna Romero ALP [Catalytic activity/Vol] 60 U/L Normal 46-116 [facility] Comment on above: Performed By: #### S SCREleanor GRASTCX #### [facility] [address] [address] [address] Anna Romero ALT [Catalytic activity/Vol] 25 U/L Normal 14-59 [facility] Comment on above: Performed By: #### S SCRN, GRASTCX #### [facility] [address] [place] [address] Dr. Anna Romero Anion gap [Moles/Vol] 13.8 mmol/L Normal [facility] Comment on above: Performed By: #### S SCRN, GRASTCX #### [facility] [address] [place] [address] Dr. Anna Romero AST [Catalytic activity/Vol] 21 U/L Normal 15-37 [facility] Comment on above: Performed By: #### S SCRN, GRASTCX #### [facility] [address] [place] [address] Dr. Anna Romero Calcium [Mass/Vol] 9.4 mg/dL Normal 8.5-10.1 [facility] Comment on above: Performed By: #### S SCRN, GRASTCX #### [facility] [address] [place] [address] Dr. Anna Romero Chloride [Moles/Vol] 101 mmol/L Normal 98-107 [facility] Comment on above: Performed By: #### S SCRN, GRASTCX #### [facility] [address] [place] [address] Dr. Anna Romero CO2 [Moles/Vol] 26.8 mmol/L Normal 21.0-32.0 [facility] Comment on above: Performed By: #### S SCRN, GRASTCX #### [facility] [address] [place] [address] Dr. Anna Romero Creatinine [Mass/Vol] 0.87 mg/dL Normal 0.55-1.02 [facility] Comment on above: Performed By: #### S SCRN, GRASTCX #### [facility] [address] [place] [address] Dr. Anna Romero EGFR-AF WALLISIAN >60 Normal >=60 [facility] Comment on above: Performed By: #### S SCRN, GRASTCX #### [facility] [address] [address] [address] Anna Romero EGFR-NON AF WALLISIAN >60 Normal >=60 [facility] Comment on above: Performed By: #### S SCRN, GRASTCX #### [facility] [address] [address] [address] Anna Romero Globulin (S) [Mass/Vol] 3.5 g/dL Normal [facility] Comment on above: Performed By: #### S SCRN, GRASTCX #### [facility] [address] [address] [address] Anna Romero Glucose [Mass/Vol] 80 mg/dL Normal 74-106 [facility] Comment on above: Performed By: #### S SCRN, GRASTCX #### [facility] [address] [place] [address] Dr. Anna Romero Potassium [Moles/Vol] 3.6 mmol/L Normal 3.5-5.1 [facility] Comment on above: Performed By: #### S SCRN, GRASTCX #### [facility] [address] [address] [address] Anna Romero Protein [Mass/Vol] 7.8 g/dL Normal 6.4-8.2 [facility] Comment on above: Performed By: #### S SCRN, GRASTCX #### [facility] [address] [place] [address] Dr. Anna Romero Sodium [Moles/Vol] 138 mmol/L Normal 136-145 [facility] Comment on above: Performed By: #### S SCRN, GRASTCX #### [facility] [address] [place] [address] Dr. Anna Romero Urea nitrogen [Mass/Vol] 12.0 mg/dL Normal 7.0-18.0 [facility] Comment on above: Performed By: #### S SCRN, GRASTCX #### [facility] [address] [address] [address] Anna Romero Urea nitrogen/Creatinine [Mass ratio] 13.8 mg/mg Normal [facility] Comment on above: Performed By: #### S SCRN, GRASTCX #### [facility] [address] [place] [address] Dr. Anna Romero TSHon 03-16-2022 TSH 2.442 uIU/mL Normal 0.358-3.740 [facility] Comment on above: Performed By: #### S SCRN, GRASTCX #### [facility] [address] [place] [address] Dr. Anna Romero TSH RANGE SEE BELOW Normal [facility] Comment on above: Result Comment: <0.3 4 UIU/ml HYPERTHYROID 0.34-5.60 UIU/ml EUTHYROID >5.60 UIU/ml HYPOTHYROID Performed By: #### S SCRN, GRASTCX #### [facility] [address] [place] [address] Dr. Anna Romero Vital Signs Date Time Vital Sign Value Performing Clinician Faci lity 11-27-2023 14:46-0500 Body mass index (BMI) [Ratio] 25.66 kg/m2 Rosana HAYES Work Phone: [facility] 11-27-2023 14:46-0500 Body weight 72.12 kg Rosana Galo PA Work Phone: [facility] 11-27-2023 14:46-0500 Diastolic blood pressure 60 mm[Hg] Rosana HAYES Work Phone: [facility] 11-27-2023 14:46-0500 Systolic blood pressure 102 mm[Hg] Rosana Galo PA Work Phone: [facility] 10-16-2023 12:21-0500 Body height 170.2 cm Haseeb Nice MD Work Phone: [facility] 10-16-2023 12:21-0500 Body mass index (BMI) [Ratio] 22.55 kg/m2 Haseeb Nice MD Work Phone: [facility] 10-16-2023 12:21-0500 Body weight 65.32 kg Haseeb Nice MD Work Phone: [facility] 10-16-2023 12:21-0500 Diastolic blood pressure 66 mm[Hg] Haseeb Nice MD Work Phone: [facility] 10-16-2023 12:21-0500 Heart rate 79 /min Haseeb Nice MD Work Phone: [facility] 10-16-2023 12:21-0500 Systolic blood pressure 109 mm[Hg] Haseeb Nice MD Work Phone: [facility] Encounters Encounter Date Encounter Type Care [...] visit 15 minutes Rosana HAYES Work Phone: [facility] OB Comment on above: Second trimester pre gnancy; with normal glucose tolerance test (GTT); Diabetes mellitus screening; History of miscarriage; History of oligohydramnios Start: 11-19-2023 End: [facility]: 10-[facility]23 End: 10-30-2023 ambulatory BRIA R [facility] Start: 10-28-2023 End: 10-28-2023 ambulatory BRIA YOJANA Not Available Start: 10-22-2023 Documentation procedure Haseeb Nice MD Work Phone: [facility] Start: 10-22-2023 Telephone encounter Rachelle TREJO [facility] Start: 10-21-2023 Chart abstractnereida berger MD Work Phone: [facility] Start: 10-17-2023 Orders Only Robbi Rodriguez [facility] Comment on above: History of oligohydr amnios in prior , currently (Primary Dx) Start: 10-16-2023 End: 10-17-2023 ambulatory BRIA BALES [facility] Start: 10-16-2023 End: 10-16-2023 Office outpatient new 45 minutes Hind Darius Nice MD Work Phone: [facility] Comment on above: High-risk in second trimester (Primary Dx); History of oligohydramnios in prior , currently ; 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 Start: 10-17-2024 End: 10-17-2024 US MFM with or without consult US MFM with or without consult Imaging Routine History of oligohydramnios in prior , currently Expected: 10/17/2024 (Approximate), Expires: 10/17/2024 [facility] Work Phone: Comment on above: Expected: 10/17/2024 (Approximate), Expires: 10/17/2024 Start: 10-16-2024 Adult BMI Screening Adult BMI Screen ing [facility] Start: 10-16-2024 Tobacco Screening Tobacco Screening [facility] Start: 12-11-2023 End: 12-11-2023 Patient encounter procedure 12/11/2023 10:20 AM EST Routine [facility] [address] [place] [id number] Bria Bales, DO [address] [place] [id number] [facility] Start: 11-27-2023 End: 11-27-2024 [...] mellitus screening Expected: 11/27/2023 (Approximate), Expires: 11/27/2024 [facility] Comment on above: Expected: 11/27/2023 (Approximate), Expires: 11/27/2024 Start: 11-27-2023 End: 11-27-2024 US biophysical profile w non stress test US biophysical profile w non stress test Imaging Routine History of miscarriage History of oligohydramnios Expected: 11/27/2023 (Approximate), Expires: 11/27/2024 [facility] Comment on above: Expected: 11/27/2023 (Approximate), Expires: 11/27/2024 Start: 11-27-2023 End: 11-27-2024 US for US OB SCAN FOR GROWTH Imaging Routine History of miscarriage History of oligohydramnios Expected: 11/27/2023 (Approximate), Expires: 11/27/2024 [facility] Comment on above: Expected: 11/27/2023 (Approximate), Expires: 11/27/2024 Start: 11-19-2023 End: 11-19-2023 Patient encounter procedure 11/19/2023 9:15 AM EST Appointment [facility] - [facility]ound [address] [place] [address] [facility] Start: 10-29-2023 End: 10-29-2023 Patient encounter procedure 10/29/2023 9:15 AM EST Appointment [facility] - [facility] [address] [place] [address] [facility] Start: 10-16-2023 End: 10-16-2023 Patient encounter procedure 10/16/2023 1:00 PM EST Office Visit [facility] [address] [place] [address] Haseeb Nice MD [address], [address] [place] [id number] [facility] Start: 10-16-2023 Subsequent hospital visit by physician 10/16/2023 11:30 AM EST Hospital Encounter [facility] [address] [place] [address] [facility] Start: 06-14-2023 Influenza vaccination Influenza Vacc ine [facility] Start: 2014 Screening for malignant neoplasm of cervix Pap Smear [facility] Start: 2012 DTaP,Tdap and Td Vaccines (1 - Tdap) DTaP,Tdap and Td Vaccines (1 - Tdap) [facility] Start: 2011 Adult BMI Screening Adult BMI Screen ing [facility] Start: 2005 Depression Screening Depression Scre ening [facility] Start: 2005 Tobacco Screening Tobacco Screening [facility] Start: 1993 Tobacco Counseling Tobacco Counselin g [facility] Payers Date Payer Category Payer Medicaid [id number] 1993 Unknown [id number] 2.16.84 0.1.543822.3.579.2.593 1993 Unknown [id number] 2.16.84 0.1.856691.3.579.2.593 1993 Unknown [id number] 2.16.84 0.1.320774.3.579.2.593 1993 Unknown [id number] 2.16.84 0.1.870444.3.579.2.593 1993 Unknown [id number] 2.16.84 0.1.574894.3.579.2.593 1993 Unknown [id number] 2.16.84 0.1.550420.3.579.2.593 1993 Unknown [id number] 2.16.84 0.1.461354.3.579.2.593 1993 Unknown [id number] 2.16.84 0.1.221736.3.579.2.593 1993 Unknown [id number] 2.16.84 0.1.422652.3.579.2.593 1993 Unknown [id number] 2.16.84 0.1.031077.3.579.2.593 1993 Unknown [id number] 2.16.84 0.1.592152.3.579.2.593 1993 Unknown [id number] 2.16.84 0.1.380080.3.579.2.593 1993 Unknown [id number] 2.16.84 0.1.698007.3.579.2.1286 1993 Unknown [id number] 2.16.84 0.1.306025.3.579.2.1286 1993 Unknown [id number] 2.16.8 40.1.020028.3.579.2.1286 1993 Unknown [id number] 2.16.84 0.1.244506.3.579.2.1286 1993 Unknown [id number] 2.16.84 0.1.534507.3.579.2.1259 1993 Unknown [id number] 2.16.84 0.1.732702.3.579.2.1259 1993 Unknown [id number] 2.16.84 0.1.193670.3.579.2.1259 1993 Unknown [id number] 2.16.84 0.1.494346.3.579.2.125 1993 Unknown [id number] 2.16.84 0.1.986761.3.579.2.1259 1993 Unknown [id number] 2.16.84 0.1.080076.3.579.2.1259 1993 Unknown [id number] 2.16.840 .1.048488.3.579.2.1259 1993 Unknown [id number] 2.16.840 .1.888843.3.579.2.1259 1959 Self-pay [id number] 1959 Unknown [id number] 1959 Unknown [id number] Social History Date Type Detail Facility Start: 10-15-2023 Tobacco smoking status NHIS Tobacco smoking consumption unknown [facility] Start: 03-23-2019 End: 10-16-2023 History of [address] function [facility] Start: 03-23-2019 End: 10-16-[address] [facility] Housing Instability Unknown [facility] Start: 06-10-2023 [facility] Start: 1993 Sex Assigned At Not on file [facility] Start: 10-16-2023 Tobacco smoking status FLIS Smokes tobacco daily [facility] History of tobacco use Cigarette Smoker P [facility] Start: 10-16-2023 Tobacco use and exposure Smokeless tobacco non-user [facility] Start: 10-16-2023 End: 10-21-2023 Alcohol intake Ex-drinker (finding) [facility] Start: 1995 Sex Assigned At Female [facility] Start: 08-07-2023 Gender identity Identifies as female gender (finding) [facility] Start: 08-07-2023 Sexual orientation Heterosexual (finding) [facility] Goals Date Patient Goal Desired Activity /State Personal health goal Clinical Notes 03-16-2022 to 11-27-2023 ABIGAIL Chinchilla - 11/27/2023 2:30 PM ESTTelephone Encounter - Rachelle Mullen LPN - 10/22/2023 12:28 PM ESTTelephone Encounter - Rachelle Mullen LPN - 10/22/2023 12:28 PM EST Note Date & Type Note Facility 11-27-2023 History of Presen t illness Narrative Reason for Appointment: Patient ID: Екатерина Sutehrland is a 28 y.o. female who presents [...] Missed menses Non-compliant patient Smoker Thyroid disease ([facility]) No family history on file. Social History [...] of: ABIGAIL Chinchilla documented in this encounter [facility] 10-22-2023 Miscellaneous Notes Formattin g of this note might be different from the original. Please call us back to schedule an ultrasound next week. documented in this encounter [facility] 10-22-2023 Telephone encount er Note Please call us back to schedule an ultrasound next week. [facility] 10-22-2023 History of Presen t illness [...] increase p.o. hydration. documented in this encounter [facility] 10-16-2023 History of Presen t illness [...] to mention to the provider today? [facility] Consult Note Reason For [...] Yes Not In System Ref Prov vit no.436-[id number] acid ( VITAMIN) 27 mg iron- 800 [...] continue with routine care in your office [facility], the CDC, and other organizations representing maternal and public health professionals recommend that , , and lactating people and those considering receive the COVID-19 vaccination. Vaccination is the best method to reduce maternal and complications of SARS-CoV-2 infection. This document was created with [employer] technology. Though I make every effort to review the dictation as it is transcribed, on occasion the spoken word can be misinterpreted by the technology leading to inappropriate words, phrases, or sentences. This note is addressed to the requesting provider as a consultation for clinical guidance. Specific medical abbreviations are occasionally used and those are generally approved by the [place]?Board of?Obstetrics and?Gynecology?as well as?James flores abbreviations. The above plan of care was based solely on the diagnoses for which a consultation was requested. ?More frequent testing may be indicated based on her other medical/obstetrical conditions. The management of other or medical conditions is beyond the scope of requested consultation and will continue to be followed by the primary guest house manager or primary care provider. Thank you for allowing me to participate in her care. Please contact me if you have any concerns. documented in this encounter [facility] 03-16-2022 Note PROCEDURE: XR SHOULD ER RT 2V or > HISTORY: Impingement syndrome of right shoulder region ; acute right shoulder pain, no known injury COMPARISON: None. FINDINGS: BONES:No fracture, acute abnormality, or significant arthropathy. SOFT TISSUES:No visible soft tissue swelling. EFFUSION:None visible. OTHER: Negative. IMPRESSION: 1. Normal examination. Electronically authenticated by: GENI CABRAL Date: 2022-03-16 18:16 [facility] Evaluation note Diagnosis High-risk in second trimester- Primary History of oligohydramnios in prior , currently with other poor obstetric history 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 20 weeks gestation of [facility] History of oligohydramnios in prior , currently - Primary with other poor obstetric history [facility] Diagnosis Second trimester state, incidental with normal glucose tolerance test (GTT) Diabetes mellitus screening Screening for diabetes mellitus History of miscarriage Personal history of other genital system and obstetric disorders History of oligohydramnios documented in this encounter [facility]InstructionsNot on filedocumented in this encounterPro[facility] SystemInstructionsNot on filedocumented in this encounterProSumma Health [facility] CampusInstructionsNot on filedocumented in this encounterProReg[facility] SystemInstructionsNot on filedocumented in this encounterSt[facility] Summary Purpose Family History No Family [...] without consult Haseeb Nice MD [address] [facility], [address] [place] [id number] [facility] [address] [place] [address] Referral ID Status Reason Start Date Expiration Date V isits Requested Visits Authorized [id number] Pending Review 10/17/2023 10/16/2024 1 1 Additional Source Comments INFORMATION SOURCE (unrecogn ized section and content) DATE CREATED AUTHOR 01/31/2023 [facility] DATE CREATED AUTHOR AUTHOR'S ORGANIZ ATION 10/20/2023 [facility] DATE CREATED AUTHOR AUTHOR'S ORGANIZ ATION 11/24/2023 [facility] DATE CREATED AUTHOR AUTHOR'S ORGANIZ ATION 01/29/2024 [facility] dical [...] BE BASED ON THE PRIMARY CLINICAL RECORDS. [employer] provides no warranty or guarantee of the accuracy or completeness of information in this document.
== END 2024-02-03 22:25 | disposition home or self-care (01) ==
LOC: LAB 22:24
PROVIDERS: Visit Provider Obstetrics & Gynecology
DX: Z34.93 Encounter for supervision of normal pregnancy, unspecified, third trimester (principal)
CPT/HCPCS: 87081

== ENCOUNTER 2024-02-06 07:40 | Outpatient (OUT) | payer OTHER, SELFPAY ==
--- OUTSIDE RECORDS SUMMARY | 2024-02-06 07:42 | XMS_ITS | CCD ---
Author Organization [facility] Care Team Providers Care Caddy Name Role Phone RUSSELL, DR DEBBIE Mohan [...] [facility] Unavailable YOJANA ., DR FARSER Attending Unavailable YOJANA ., DR FRASER Admitting [...] SCHAFFER Attending Unavailable YOJANA, BRIA Attending Unavailable IRAJ, ROSANA Attending Unavailable YOJANA, BRIA Attending Unavailable YOJANA, BRIA Attending Unavailable YOJANA, [...] for nausea or vomiting. 0 Active vit no.[id number] acid ( VITAMIN) 27 mg iron- 800 mcg tablet (6 sources) take 1 tablet by mouth in the morning vit no.783-kfrj-yvrym acid ( VITAMIN) 27 mg iron- 800 [...] Other longterm (current) drug therapy; Translations: [OTH [facility] CURRENT DRUG THERAPY] Onset: 01-23-2023 Episodic Other [...] Negative Negative - 4(70) +++ mg/dL [facility] Blood, UA Negative Negative - 50 Felice/mcL [facility] Clarity, UA Clear [facility] Color, UA Yellow [facility] Glucose, UA Negative Negative - 1999(110) ++++ mg/dL [facility] Interpretation and review of laboratory results Normal [facility] Ketones, UA Negative Negative - 160(16) ++++ mg/dL [facility] Leukocytes, UA Negative Negative - 500+++ Regina/mcL [facility] Nitrite, UA Negative Negative - Positive [facility] pH, UA 5.5 5 - 9 [facility] Protein, UA Negative Negative - 1999(20) ++++ mg/dL [facility] Spec Grav, UA 1.030 1 - 1.03 [facility] care Urobilinogen, UA 0.2 0.2 - 12 mg/dL [facility] PREG QUANT HCGon 01-28-2023 HCG QUANT 17 mIU/mL Normal [facility] Comment on above: Performed By: #### P REGQNT #### [facility] [place] [facility] [address] [address] [address] Anna Romero HCG RANGE SEE BELOW Normal [facility] [place] Comment on above: Result Comment: 5-50 0.2-1 WEEK 50-500 1-2 WEEKS 100-5,000 2-3 WEEKS 500-10,000 3-4 WEEKS 1,000-50,000 4-5 WEEKS 10,000-100,000 5-6 WEEKS 15,000-200,000 6-8 WEEKS 10,000-100,000 2-3 MONTHS Performed By: #### P REGQNT #### [facility] [place] [facility] [address] [place] [address] Dr. Anna Romero PREG QUANT HCGon 01-23-2023 HCG QUANT 441 mIU/mL Normal [facility] [place] Comment on above: Performed By: #### S CARLA GRASTCX #### [facility] [place] [facility] [address] [place] [address] Dr. Anna Romero HCG RANGE SEE BELOW Normal [facility] [place] Comment on above: Result Comment: 5-50 0.2-1 WEEK 50-500 1-2 WEEKS 100-5,000 2-3 WEEKS 500-10,000 3-4 WEEKS 1,000-50,000 4-5 WEEKS 10,000-100,000 5-6 WEEKS 15,000-200,000 6-8 WEEKS 10,000-100,000 2-3 MONTHS Performed By: #### Jovany AGUIRRE GRASTCX #### [facility] [place] [facility] [address] [place] [address] Dr. Anna Romero ABO AND RH TYPEon 01-21-2023 ABO and Rh group Nom (Bld) ABO Rh Typing A Rh Positive Normal [facility] [place] Comment on above: Performed By: #### Jovany AGUIRRE GRASTCX #### [facility] [place] [facility] [address] [place] [address] Dr. Anna Romero ER URINE PROFILEon 3 Bilirubin Ql (U) Negative Normal NEGATIVE [facility] Comment on above: Performed By: #### VINCENT URIAS #### [facility] [place] [facility] [address] [place] [address] Dr. Anna Romero Clarity (U) CLEAR Normal CLEAR [facility] [place] Comment on above: Performed By: #### JD URIASRO #### [facility] [place] [facility] [address] [place] [address] Dr. Anna Romero Color (U) YELLOW Normal YELLOW [facility] [place] Comment on above: Performed By: #### E TAYLORR, UMICRO #### [facility] [place] [facility] [address] [place] [address] Dr. Anna BAER A micrscopic examination will be performed if indicated. Normal [facility] [place] Comment on above: Performed By: #### E RUR, UMICRO #### [facility] [place] [facility] [address] [place] [address] Dr. Anna Romero Glucose Ql (U) Negative Normal NEGATIVE [facility] Comment on above: Performed By: #### E RUR, UMICRO #### [facility] [place] [facility] [address] [place] [address] Dr. Anna Romero Hemoglobin Ql (U) LARGE Abnormal NEGATIVE [facility] Comment on above: Performed By: #### E RUR, UMICRO #### [facility] [place] [facility] [address] [place] [address] Dr. Anna Romero Ketones Ql (U) Negative Normal NEGATIVE [facility] Comment on above: Performed By: #### E RUR, UMICRO #### [facility] [place] [facility] [address] [place] [address] Dr. Anna Romero LEUKOCYTES Negative Normal NEGATIVE [facility] Comment on above: Performed By: #### E RUR, UMICRO #### [facility] [place] [facility] [address] [place] [address] Dr. Anna Romero Nitrite Ql (U) Negative Normal NEGATIVE [facility] Comment on above: Performed By: #### E RUR, UMICRO #### [facility] [place] [facility] [address] [place] [address] Dr. Anna Romero pH (U) 5.5 [pH] Normal 5-9 [facility] Comment on above: Performed By: #### E RUR, UMICRO #### [facility] [place] [facility] [address] [place] [address] Dr. Anna Romero SPEC GRAVITY >=1.030 Abnormal 1.005-<=1.025 [facility] Comment on above: Performed By: #### E RUR, UMICRO #### [facility] [place] [facility] [address] [place] [address] Dr. Anna Romero UA PROTEIN TRACE Normal NEGATIVE/ TRACE [facility] Comment on above: Performed By: #### E RUR, UMICRO #### [facility] [place] [facility] [address] [address] [address] Anna Romero UR MICRO IND INDICATED Normal [facility] [place] Comment on above: Performed By: #### E RUR, UMICRO #### [facility] [place] [facility] [address] [place] [address] Dr. Anna Romero Urobilinogen Qn (U) 0.2 {Joel'U}/dL Normal 0.2 - 1. 0 [facility] [place] Comment on above: Performed By: #### E CHELSEY, UMICRO #### [facility] [place] [facility] [address] [place] [address] Dr. Anna Romero PREG QUANT HCGon 01-21-2023 HCG QUANT 1693 mIU/mL Normal [facility] [place] Comment on above: Performed By: #### S SCRN, GRASTCX #### [facility] [place] [facility] [address] [place] [address] Dr. Anna Romero HCG RANGE SEE BELOW Normal [facility] [place] Comment on above: Result Comment: 5-50 0.2-1 WEEK 50-500 1-2 WEEKS 100-5,000 2-3 WEEKS 500-10,000 3-4 WEEKS 1,000-50,000 4-5 WEEKS 10,000-100,000 5-6 WEEKS 15,000-200,000 6-8 WEEKS 10,000-100,000 2-3 MONTHS Performed By: #### S SCRN, GRASTCX #### [facility] [place] [facility] [address] [place] [address] Dr. Anna Romero URINE MICROSCOPIC ONLYon BACTERIA TRACE Abnormal NONE SEEN [facility] [place] Comment on above: Performed By: #### E TAYLORR, UMICRO #### [facility] [place] [facility] [address] [place] [address] Dr. Anna Romero Bacteria identified Cx Nom (U) NOT INDICATED Normal [facility] [place] Comment on above: Performed By: #### E TAYLORR, UMICRO #### [facility] [place] [facility] [address] [place] [address] Dr. Anna Romero CAST NONE SEEN Normal NONE SEEN [facility] [place] Comment on above: Performed By: #### E RUR, UMICRO #### [facility] [place] [facility] [address] [place] [address] Dr. Anna Romero Crystals LM Nom (Urine sed) NONE SEEN Normal NONE SEEN [facility] [place] Comment on above: Performed By: #### E TAYLORR, UMICRO #### [facility] [place] [facility] [address] [place] [address] Dr. Anna Romero Epithelial cells LM Ql (Urine sed) RARE Normal NONE SEEN /RARE [facility] [place] Comment on above: Performed By: #### E CHELSEY, UMICRO #### [facility] [place] [facility] [address] [place] [address] Dr. Anna Romero MUCOUS TRACE Abnormal NONE SEEN [facility] [place] Comment on above: Performed By: #### Yared BARBOSA UMICRO #### [facility] [place] [facility] [address] [place] [address] Dr. Anna Romero RBC 2-5 Abnormal 0-2 [facility] [place] Comment on above: Performed By: #### Yared BARBOSA UMICRO #### [facility] [place] [facility] [address] [place] [address] Dr. Anna Romero WBC 0-2 Abnormal NONE SEEN [facility] [place] Comment on above: Performed By: #### Yared BARBOSA UMICRO #### [facility] [place] [facility] [address] [place] [address] Dr. Anna Romero US PREG TVon 01-21-2023 [...] BAPTISTE Date: 2023-01-21 16:54 Normal [facility] ER URINE PROFILEon 3 Bilirubin Ql (U) Negative Normal NEGATIVE [facility] Comment on above: Performed By: #### E RUR #### [facility] [place] [facility] [address] [place] [address] Dr. Anna Romero Clarity (U) CLEAR Normal CLEAR [facility] Comment on above: Performed By: #### E RUR #### [facility] [place] [facility] [address] [place] [address] Dr. Anna Romero Color (U) YELLOW Normal YELLOW [facility] Comment on above: Performed By: #### E RUR #### [facility] [place] [facility] [address] [place] [address] Dr. Anna BAER A micrscopic examination will be performed if indicated. Normal [facility] [place] Comment on above: Performed By: #### E RUR #### [facility] [place] [facility] [address] [place] [address] Dr. Anna Romero Glucose Ql (U) Negative Normal NEGATIVE [facility] Comment on above: Performed By: #### E RUR #### [facility] [place] [facility] [address] [place] [address] Dr. Anna Romero Hemoglobin Ql (U) Negative Normal NEGATIVE [facility] Comment on above: Performed By: #### E RUR #### [facility] [place] [facility] [address] [place] [address] Dr. Anna Romero Ketones Ql (U) Negative Normal NEGATIVE [facility] Comment on above: Performed By: #### E RUR #### [facility] [place] [facility] [address] [place] [address] Dr. Anna Romero LEUKOCYTES Negative Normal NEGATIVE [facility] Comment on above: Performed By: #### E RUR #### [facility] [place] [facility] [address] [place] [address] Dr. Anna Romero Nitrite Ql (U) Negative Normal NEGATIVE [facility] Comment on above: Performed By: #### E RUR #### [facility] [place] [facility] [address] [place] [address] Dr. Anna Romero pH (U) 6.5 [pH] Normal 5-9 [facility] Comment on above: Performed By: #### E RUR #### [facility] [place] [facility] [address] [place] [address] Dr. Anna Romero SPEC GRAVITY 1.025 Normal 1.005-<=1.025 [facility] Comment on above: Performed By: #### E RUR #### [facility] [place] [facility] [address] [place] [address] Dr. Anna Romero UA PROTEIN TRACE Normal NEGATIVE/ TRACE [facility] Comment on above: Performed By: #### E RUR #### [facility] [place] [facility] [address] [place] [address] Dr. Anna Romero UR MICRO IND NOT INDICATED Normal [facility] Comment on above: Performed By: #### E RUR #### [facility] [place] [facility] [address] [place] [address] Dr. Anna Romero Urobilinogen Qn (U) 0.2 {Joel'U}/dL Normal 0.2 - 1. 0 [facility] Comment on above: Performed By: #### E RUR #### [facility] [place] [facility] [address] [address] [address] Anna Romero GROUP A STREP CULTUREon 12-13 S. pyogenes Ag Ql (Unsp spec) Culture Observations: NEGATIVE FOR GROUP A STREPTOCOCCUS. Normal [facility] [place] Comment on above: Performed By: #### S SCRN, GRASTCX #### [facility] [place] [facility] [address] [address] [address] Anna Romero STREPT SCREENon 01-08-2023 STREP SCREEN A Negative Normal NEGATIVE [facility] Comment on above: Performed By: #### S SCRN, GRASTCX #### [facility] [place] [facility] [address] [place] [address] Dr. Anna Romero SYMPTOMATIC COVID-19 ANTIGEN on 01-08-2023 EUA Statement SEE BELOW Normal [facility] Comment on above: Result Comment: This [...] #### S SCRN, GRASTCX #### [facility] [place] [facility] [address] [place] [address] Dr. Anna Romero SARS-CoV-2 (COVID-19) RNA DAVY+probe Ql (Unsp spec) Positive Abnormal NEGATIVE [facility] [place] Comment on above: Performed By: #### S SCRN, GRASTCX #### [facility] [place] [facility] [address] [address] [address] Anna Romero US PREG TVon 05-31-2022 [...] Date: 2022-05-31 19:46 Normal [facility] [place] BILIRUBIN TOTALon 03-16-2022 Bilirubin [Mass/Vol] 0.3 mg/dL Normal 0.2-1.0 [facility] Comment on above: Performed By: #### T DALE #### [facility] [place] [facility] [address] [place] [address] Dr. Anna Romero CBC AUTO DIFFon 03-16-2022 BASO # 0.0 103/ul Normal 0.0-0.1 [facility] Comment on above: Performed By: #### C BC #### [facility] [place] [facility] [address] [place] [address] Dr. Anna Romero Basophils/100 WBC (Bld) 0.4 % Normal 0.2-2.0 [facility] [place] Comment on above: Performed By: #### C BC #### [facility] [place] [facility] [address] [place] [address] Dr. Anna Romero EO # 0.0 103/ul Normal 0.0-0.7 [facility] [place] Comment on above: Performed By: #### C BC #### [facility] [place] [facility] [address] [place] [address] Dr. Anna Romero Eosinophils/100 WBC (Bld) 0.2 % Critically low 0.9-7.0 [facility] Comment on above: Performed By: #### C BC #### [facility] [place] [facility] [address] [place] [address] Dr. Anna Romero Erythrocyte distribution width (RBC) [Ratio] 12.8 % Normal 11.0-15.0 [facility] Comment on above: Performed By: #### C BC #### [facility] [place] [facility] [address] [place] [address] Dr. Anna Romero Hematocrit (Bld) [Volume fraction] 39.2 % Normal 36.0-48.0 [facility] Comment on above: Performed By: #### C BC #### [facility] [place] [facility] [address] [place] [address] Dr. Anna Romero Hemoglobin (Bld) [Mass/Vol] 12.9 g/dL Normal 12.0-16.0 [facility] [place] Comment on above: Performed By: #### C BC #### [facility] [place] [facility] [address] [place] [address] Dr. Anna Romero IG # 0.01 10e3/ul Normal 0.00-0.03 [facility] Comment on above: Performed By: #### C BC #### [facility] [place] [facility] [address] [place] [address] Dr. Anna Romero IG % 0.2 % Normal 0.0-0.5 [facility] Comment on above: Performed By: #### C BC #### [facility] [place] [facility] [address] [place] [address] Dr. Anna Romero LYMPH # 1.6 103/ul Normal 1.2-3.8 [facility] Comment on above: Performed By: #### C BC #### [facility] [place] [facility] [address] [place] [address] Dr. Anna Romero Lymphocytes/100 WBC (Bld) 29.8 % Normal 20.5-60.0 [facility] [place] Comment on above: Performed By: #### C BC #### [facility] [place] [facility] [address] [place] [address] Dr. Anna Romero MANUAL DIFF REQ NO Normal [facility] Comment on above: Performed By: #### C BC #### [facility] [place] [facility] [address] [place] [address] Dr. Anna Romero MCH (RBC) [Entitic mass] 31.8 pg Normal 26.7-34.0 [facility] Comment on above: Performed By: #### C BC #### [facility] [place] [facility] [address] [place] [address] Dr. Anna Romero MCHC (RBC) [Mass/Vol] 32.9 g/dL Normal 29.9-35.2 [facility] Comment on above: Performed By: #### C BC #### [facility] [place] [facility] [address] [place] [address] Dr. Anna Romero MCV (RBC) [Entitic vol] 96.6 fL Normal 81.0-99.0 [facility] Comment on above: Performed By: #### C BC #### [facility] [place] [facility] [address] [place] [address] Dr. Anna Romero MONO # 0.4 103/ul Normal 0.3-0.8 [facility] Comment on above: Performed By: #### C BC #### [facility] [place] [facility] [address] [place] [address] Dr. Anna Romero Monocytes/100 WBC (Bld) 7.2 % Normal 1.7-12.0 [facility] Comment on above: Performed By: #### C BC #### [facility] [place] [facility] [address] [place] [address] Dr. Anna Romero NEUT # 3.3 103/ul Normal 1.4-6.5 [facility] [place] Comment on above: Performed By: #### C BC #### [facility] [place] [facility] [address] [place] [address] Dr. Anna Romero Neutrophils/100 WBC (Bld) 62.2 % Normal 43.0-75.0 [facility] [place] Comment on above: Performed By: #### C BC #### [facility] [place] [facility] [address] [place] [address] Dr. Anna Romero Platelet mean volume (Bld) [Entitic vol] 10.0 fL Normal 9.5-13.5 [facility] [place] Comment on above: Performed By: #### C BC #### [facility] [place] [facility] [address] [place] [address] Dr. Anna Romero PLT 153 103/ul Normal 150-450 [facility] [place] Comment on above: Performed By: #### C BC #### [facility] [place] [facility] [address] [place] [address] Dr. Anna Romero RBC 4.06 106/ul Critically low 4.20-5.40 [facility] Comment on above: Performed By: #### C BC #### [facility] [place] [facility] [address] [place] [address] Dr. Anna Romero WBC 5.3 103/ul Normal 4.0-11.0 [facility] Comment on above: Performed By: #### C BC #### [facility] [place] [facility] [address] [place] [address] Dr. Anna Romero FREE T3on 03-16-2022 FREE T3 3.18 pg/mlL Normal 2.18-3.98 [facility] Comment on above: Performed By: #### S SCRN GRASTCX #### [facility] [place] [facility] [address] [place] [address] Dr. Anna Romero FREE T4on 03-16-2022 Free T4 [Mass/Vol] 1.08 ng/dL Normal 0.76-1.46 [facility] Comment on above: Performed By: #### F T4 #### [facility] [place] [facility] [address] [place] [address] Dr. Anna Romero PROF 14(COMP METB)on 022 Albumin [Mass/Vol] 4.3 g/dL Normal 3.4-5.0 [facility] Comment on above: Performed By: #### S SCRN, GRASTCX #### [facility] [place] [facility] [address] [place] [address] Dr. Anna Romero Albumin/Globulin [Mass ratio] 1.2 {ratio} Normal [facility] [place] Comment on above: Performed By: #### S SCRN, GRASTCX #### [facility] [place] [facility] [address] [place] [address] Dr. Anna Romero ALP [Catalytic activity/Vol] 60 U/L Normal 46-116 [facility] [place] Comment on above: Performed By: #### S SCRN, GRASTCX #### [facility] [place] [facility] [address] [address] [address] Anna Romero ALT [Catalytic activity/Vol] 25 U/L Normal 14-59 [facility] Comment on above: Performed By: #### S SCRN, GRASTCX #### [facility] [place] [facility] [address] [address] [address] Anna Romero Anion gap [Moles/Vol] 13.8 mmol/L Normal [facility] Comment on above: Performed By: #### S SCRN, GRASTCX #### [facility] [place] [facility] [address] [address] [address] Anna Romero AST [Catalytic activity/Vol] 21 U/L Normal 15-37 [facility] Comment on above: Performed By: #### S SCRN, GRASTCX #### [facility] [place] [facility] [address] [address] [address] Anna Romero Calcium [Mass/Vol] 9.4 mg/dL Normal 8.5-10.1 [facility] Comment on above: Performed By: #### S SCRN, GRASTCX #### [facility] [place] [facility] [address] [address] [address] Anna Romero Chloride [Moles/Vol] 101 mmol/L Normal 98-107 [facility] Comment on above: Performed By: #### S SCRN, GRASTCX #### [facility] [place] [facility] [address] [address] [address] Anna Romero CO2 [Moles/Vol] 26.8 mmol/L Normal 21.0-32.0 [facility] Comment on above: Performed By: #### S SCRN, GRASTCX #### [facility] [place] [facility] [address] [address] [address] Anna Romero Creatinine [Mass/Vol] 0.87 mg/dL Normal 0.55-1.02 [facility] Comment on above: Performed By: #### S SCRN, GRASTCX #### [facility] [place] [facility] [address] [address] [address] Anna Rmoero EGFR-AF SIERRA LEONEAN >60 Normal >=60 [facility] Comment on above: Performed By: #### S SCRN, GRASTCX #### [facility] [place] [facility] [address] [address] [address] Anna Romero EGFR-NON AF SIERRA LEONEAN >60 Normal >=60 [facility] Comment on above: Performed By: #### S SCRN, GRASTCX #### [facility] [place] [facility] [address] [place] [address] Dr. Anna Romero Globulin (S) [Mass/Vol] 3.5 g/dL Normal [facility] Comment on above: Performed By: #### S SCRN, GRASTCX #### [facility] [place] [facility] [address] [place] [address] Dr. Anna Romero Glucose [Mass/Vol] 80 mg/dL Normal 74-106 [facility] Comment on above: Performed By: #### S SCRN, GRASTCX #### [facility] [place] [facility] [address] [place] [address] Dr. Anna Romero Potassium [Moles/Vol] 3.6 mmol/L Normal 3.5-5.1 [facility] Comment on above: Performed By: #### S SCRN, GRASTCX #### [facility] [place] [facility] [address] [place] [address] Dr. Anna Romero Protein [Mass/Vol] 7.8 g/dL Normal 6.4-8.2 [facility] Comment on above: Performed By: #### S SCRN, GRASTCX #### [facility] [place] [facility] [address] [place] [address] Dr. Anna Romero Sodium [Moles/Vol] 138 mmol/L Normal 136-145 [facility] Comment on above: Performed By: #### S SCRN, GRASTCX #### [facility] [place] [facility] [address] [place] [address] Dr. Anna Romero Urea nitrogen [Mass/Vol] 12.0 mg/dL Normal 7.0-18.0 [facility] Comment on above: Performed By: #### S SCRN, GRASTCX #### [facility] [place] [facility] [address] [place] [address] Dr. Anna Romero Urea nitrogen/Creatinine [Mass ratio] 13.8 mg/mg Normal [facility] [place] Comment on above: Performed By: #### S SCRN, GRASTCX #### [facility] [place] [facility] [address] [place] [address] Dr. Anna Romero TSHon 03-16-2022 TSH 2.442 uIU/mL Normal 0.358-3.740 [facility] Comment on above: Performed By: #### S SCRN, GRASTCX #### [facility] [place] [facility] [address] [place] [address] Dr. Anna Romero TSH RANGE SEE BELOW Normal [facility] Comment on above: Result Comment: <0.3 4 UIU/ml HYPERTHYROID 0.34-5.60 UIU/ml EUTHYROID >5.60 UIU/ml HYPOTHYROID Performed By: #### S SCRN, GRASTCX #### [facility] [place] [facility] [address] [place] [address] Dr. Anna Romero Vital Signs Date Time Vital Sign Value Performing Clinician Faci lity 11-27-2023 14:46-0500 Body mass index (BMI) [Ratio] 25.66 kg/m2 Rosana HAYES Work Phone: [facility] 11-27-2023 14:46-0500 Body weight 72.12 kg Rosana HAYES Work Phone: [facility] 11-27-2023 14:46-0500 Diastolic blood pressure 60 mm[Hg] Rosana HAYES Work Phone: [facility] 11-27-2023 14:46-0500 Systolic blood pressure 102 mm[Hg] Rosana HAYES Work Phone: [facility] 10-16-2023 12:21-0500 Body height 170.2 cm Haseeb Nice MD Work Phone: [facility] 10-16-2023 12:21-0500 Body mass index (BMI) [Ratio] 22.55 kg/m2 Haseeb Nice MD Work Phone: [facility] 10-16-2023 12:21-0500 Body weight 65.32 kg Haseeb Nice MD Work Phone: [facility] 10-16-2023 12:21-0500 Diastolic blood pressure 66 mm[Hg] Haseeb Nice MD Work Phone: [facility] 10-16-2023 12:21-0500 Heart rate 79 /min Haseeb Nice MD Work Phone: [facility] 10-16-2023 12:21-0500 Systolic blood pressure 109 mm[Hg] Haseeb Nice MD Work Phone: [facility] Encounters Encounter Date Encounter Type Care Provider Facility Start: 02-03-2024 End: 02-03-2024 ambulatory BRIA YOJANA Not Available Start: 01-28-2024 End: 01-28-2024 ambulatory BRIA YOJANA Not Available Start: 01-14-2024 End: 01-14-2024 ambulatory BRIA YOJANA Not Available Start: 12-31-2023 End: 12-31-2023 ambulatory ROSANA GALO Not Available Start: 12-16-2023 End: 12-16-2023 ambulatory BRIA YOJANA Not Available Start: 11-27-2023 End: 11-27-2023 ambulatory ROSANA GALO Not Available Start: 11-27-2023 End: 11-27-2023 Office outpatient visit 15 minutes Rosana HAYES Work Phone: [facility] Comment on above: Second trimester pre gnancy; with normal glucose tolerance test (GTT); Diabetes mellitus screening; History of miscarriage; History of oligohydramnios Start: 11-19-2023 End: 11-20-2023 ambulatory BRIA R [facility] Start: 10-29-2023 End: 10-30-2023 ambulatory BRIA R [facility] Start: 10-28-2023 End: 10-28-2023 ambulatory BRIA YOJANA Not Available Start: 10-22-2023 Documentation procedure Haseeb Nice MD Work Phone: [facility] Start: 10-22-2023 Telephone encounter Rachelle Mullen L PN [facility] Start: 10-21-2023 Chart abstracting Aliya berger MD Work Phone: [facility] Start: 10-17-2023 Orders Only Robbi Rodriguez PRODUCTION CONTROL CLERK Mate rnal- Medicine at [facility] Comment on above: History of oligohydr amnios in prior , currently (Primary Dx) Start: 10-16-2023 End: 10-17-2023 ambulatory BRIA BALES [facility] Start: 10-16-2023 End: 10-16-2023 Office outpatient new 45 minutes Hind Darius Nice MD Work Phone: [facility]- [facility] at [facility] Comment on above: High-risk in second trimester (Primary Dx); History of oligohydramnios in prior , currently ; 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 Facili ty:[facility] Start: 05-31-2022 End: 08-19-[address] BRIA BALES . Facility: Start: 05-17-[address] BRIA BALES . Facili ty:[facility] Start: 03-16-2022 End: 03-17-[address] MARIS MARCH . Facility:[facility] Start: 03-03-2022 End: 03-03-2022 ambulatory CASSANDRA ROSALES Facility: Procedures Date Procedure Procedure Detail Performing Clinician Start: 11-27-2023 Urnls dip stick/tabl et rgnt non-auto w/o micrscp Rosana HAYES Work Phone: Plan of Treatment Date Care Activity Detail Author Start: 10-20-2032 DTaP,Tdap and Td Vaccines (9 - Td or Tdap) DTaP,Tdap and Td Vaccines (9 - Td or Tdap) [facility] Start: 10-17-2024 End: 10-17-2024 US MFM with or without consult US MFM with or without consult Imaging Routine History of oligohydramnios in prior , currently Expected: 10/17/2024 (Approximate), Expires: 10/17/2024 [facility] Work Phone: Comment on above: Expected: 10/17/2024 (Approximate), Expires: 10/17/2024 Start: 10-16-2024 Adult BMI Screening Adult BMI Screen ing [facility] Start: 10-16-2024 Tobacco Screening Tobacco Screening [facility] Start: 12-11-2023 End: 12-11-2023 Patient encounter procedure 12/11/2023 10:20 AM EST Routine [facility] [address] [place] [id number] Bria Bales, DO [address] [place] [address] [facility] Start: 11-27-2023 End: 11-27-2024 [...] screening Expected: 11/27/2023 (Approximate), Expires: 11/27/2024 [facility] Comment on above: Expected: 11/27/2023 (Approximate), Expires: 11/27/2024 Start: 11-27-2023 End: 11-27-2024 US biophysical profile w non stress test US biophysical profile w non stress test Imaging Routine History of miscarriage History of oligohydramnios Expected: 11/27/2023 (Approximate), Expires: 11/27/2024 [facility] Comment on above: Expected: 11/27/2023 (Approximate), Expires: 11/27/2024 Start: 11-27-2023 End: 11-27-2024 US for US OB SCAN FOR GROWTH Imaging Routine History of miscarriage History of oligohydramnios Expected: 11/27/2023 (Approximate), Expires: 11/27/2024 [facility] Comment on above: Expected: 11/27/2023 (Approximate), Expires: 11/27/2024 Start: 11-19-2023 End: 11-19-2023 Patient encounter procedure 11/19/2023 9:15 AM EST Appointment [facility] - Ultrasound [address] [place] [address] [facility] - Ultrasound Start: 10-29-2023 End: 10-29-2023 Patient encounter procedure 10/29/2023 9:15 AM EST Appointment [facility] - Ultrasound [address] [place] [address] [facility] - Ultrasound Start: 10-16-2023 End: 10-16-2023 Patient encounter procedure 10/16/2023 1:00 PM EST Office Visit [facility]- Medicine at [facility] [address] [place] [address] Haseeb Nice MD [address] [place] [address] [facility]- [facility] at [facility] Start: 10-16-2023 Subsequent hospital visit by physician 10/16/2023 11:30 AM EST Hospital Encounter [facility] [address] [place] [address] [facility] Start: 06-14-2023 Influenza vaccination Influenza Vacc ine [facility] Start: 2014 Screening for malignant neoplasm of cervix Pap Smear [facility] Start: 2012 DTaP,Tdap and Td Vaccines (1 - Tdap) DTaP,Tdap and Td Vaccines (1 - Tdap) [facility] Start: 2011 Adult BMI Screening Adult BMI Screen ing [facility] Start: 2005 Depression Screening Depression Scre ening [facility] Start: 2005 Tobacco Screening Tobacco Screening [facility] Start: 1993 Tobacco Counseling Tobacco Counselin g [facility] Payers Date Payer Category Payer Medicaid [id number] 1993 Unknown [id number] 2.16.84 0.1.528108.3.579.2.593 1993 Unknown [id number] 2.16.84 0.1.717505.3.579.2.593 1993 Unknown [id number] 2.16.84 0.1.619099.3.579.2.593 1993 Unknown [id number] 2.16.84 0.1.469940.3.579.2.593 1993 Unknown [id number] 2.16.84 0.1.862997.3.579.2.593 1993 Unknown [id number] 2.16.84 0.1.315865.3.579.2.593 1993 Unknown [id number] 2.16.84 0.1.258026.3.579.2.593 1993 Unknown [id number] 2.16.84 0.1.880092.3.579.2.593 1993 Unknown [id number] 2.16.84 0.1.426326.3.579.2.593 1993 Unknown [id number] 2.16.84 0.1.141296.3.579.2.593 1993 Unknown [id number] 2.16.84 0.1.416116.3.579.2.593 1993 Unknown [id number] 2.16.84 0.1.664968.3.579.2.593 1993 Unknown [id number] 2.16.84 0.1.864717.3.579.2.1286 1993 Unknown [id number] 2.16.84 0.1.693163.3.579.2.1286 1993 Unknown [id number] 2.16.8 40.1.559762.3.579.2.1286 1993 Unknown [id number] 2.16.84 0.1.194077.3.579.2.1286 1993 Unknown [id number] 2.16.84 0.1.647100.3.579.2.1259 1993 Unknown [id number] 2.16.84 0.1.315538.3.579.2.1259 1993 Unknown [id number] 2.16.84 0.1.373643.3.579.2.1259 1993 Unknown [id number] 2.16.84 0.1.953102.3.579.2.1259 1993 Unknown [id number] 2.16.84 0.1.525825.3.579.2.1259 1993 Unknown [id number] 2.16.84 0.1.721316.3.579.2.1259 1993 Unknown [id number] 2.16.84 0.1.911164.3.579.2.1259 1993 Unknown [id number] 2.16.840 .1.911839.3.579.2.1259 1993 Unknown [id number] 2.16.840 .1.196967.3.579.2.1259 1959 Self-pay [id number] 1959 Unknown [id number] 1959 Unknown [id number] Social History Date Type Detail Facility Start: 10-15-2023 Tobacco smoking status [facility]IS Tobacco smoking consumption unknown [facility] Start: 03-23-2019 End: 10-16-2023 History of Social function [facility] Start: 03-23-2019 End: 10-16-2023 Housing Instability [facility] Housing Instability Unknown [facility] Start: 06-10-2023 [facility] Start: 1995 Sex Assigned At Not on file [facility] Start: 10-16-2023 Tobacco smoking status [facility] Smokes tobacco daily [facility] History of tobacco use Cigarette Smoker P [facility] Start: 10-16-2023 Tobacco use and exposure Smokeless tobacco non-user [facility] Start: 10-16-2023 End: 10-21-2023 Alcohol intake Ex-drinker (finding) [facility] Start: 1995 Sex Assigned At Female [facility] Start: 08-07-2023 Gender identity Identifies as female gender (finding) [facility] Start: 08-07-2023 Sexual orientation Heterosexual (finding) [facility] Goals Date Patient Goal [...] Missed menses Non-compliant patient Smoker Thyroid disease ([facility]) No family history on [...] ABIGAIL Chinchilla documented in this encounter [facility] 10-22-2023 Miscellaneous Notes Formattin g of this note might be different from the original. Please call us back to schedule an ultrasound next week. documented in this encounter [facility] 10-22-2023 Telephone encount er Note Please call us back to schedule an ultrasound next week. [facility] 10-22-2023 History of Presen t [...] increase p.o. hydration. documented in this encounter [facility] 10-16-2023 History of Presen t illness Narrative Headache/epigastric pain/blurry vision/swelling? No Cramping/contractions? No Abnormal vaginal discharge? No Spotting/vaginal bleeding? No Loss of fluid like your water may have broken? No Cats in the home? No Do you change the litter box? N/A Flu vaccine? No Genetic testing done this here or other office? Yes Have you been seen here at [facility] in a previous ? No Recent ER visits or hospitalizations? No Bring blood sugar log or meter with you today? (Please bring them with you for every visit at [facility]) N/A Traveled outside the country in the past 6 month No Any concerns that you would like me to mention to the provider today? No [facility] Maternal- Medicine Consult Note Reason [...] Yes Not In System Ref Prov vit no.[id number] acid ( VITAMIN) 27 mg iron- 800 [...] continue with routine care in your office [facility], the CDC, and other organizations representing maternal and public health professionals recommend that , , and lactating people and those considering receive the COVID-19 vaccination. Vaccination is the best method to reduce maternal and complications of SARS-CoV-2 infection. This document was created with [employer] technology. Though I make every effort to review the dictation as it is transcribed, on occasion the spoken word can be misinterpreted by the technology leading to inappropriate words, phrases, or sentences. This note is addressed to the requesting provider as a consultation for clinical guidance. Specific medical abbreviations are occasionally used and those are generally approved by the [place]?Board of?Obstetrics and?Gynecology?as well as?James flores abbreviations. The above plan of care was based solely on the diagnoses for which a consultation was requested. ?More frequent testing may be indicated based on her other medical/obstetrical conditions. The management of other or medical conditions is beyond the scope of requested consultation and will continue to be followed by the primary fuel handler or primary care provider. Thank you for allowing me to participate in her care. Please contact me if you have any concerns. documented in this encounter [facility] 03-16-2022 Note PROCEDURE: XR SHOULD ER RT 2V or > HISTORY: Impingement syndrome of right shoulder region ; acute right shoulder pain, no known injury COMPARISON: None. FINDINGS: BONES:No fracture, acute abnormality, or significant arthropathy. SOFT TISSUES:No visible soft tissue swelling. EFFUSION:None visible. OTHER: Negative. IMPRESSION: 1. Normal examination. Electronically authenticated by: GENI CABRAL Date: 2022-03-16 18:16 [facility] Evaluation note Diagnosis High-risk in second trimester- Primary History of oligohydramnios in prior , currently with other poor obstetric history 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 20 weeks gestation of [facility] Diagnosis History of oligohydramnios in prior , currently - Primary with other poor obstetric history [facility] Diagnosis Second trimester state, incidental with normal glucose tolerance test (GTT) Diabetes mellitus screening Screening for diabetes mellitus History of miscarriage Personal history of other genital system and obstetric disorders History of oligohydramnios documented in this encounter [facility] filedocumented [facility]ructionsNot on filedocumented in this encounterProC[facility] SystemInstructionsNot on filedocumented in this encounterProC[facility] Clinic SystemInstructionsNot on filedocumented in [facility] Summary Purpose Family History No Family History [...] Haseeb Nice MD [address] [place] [address] [facility] [address] [place] [address] Referral ID Status Reason Start Date Expiration Date V isits Requested Visits Authorized [id number] Pending Review 10/17/2023 10/16/2024 1 1 Additional Source Comments INFORMATION SOURCE (unrecogn ized section and content) DATE CREATED AUTHOR 01/31/2023 [facility] DATE CREATED AUTHOR AUTHOR'S ORGANIZ ATION 10/20/2023 [facility] DATE CREATED AUTHOR AUTHOR'S ORGANIZ ATION 11/24/2023 [facility] DATE CREATED AUTHOR AUTHOR'S ORGANIZ ATION 02/04/2024 [facility] EPIC Reason for Visit [...] BE BASED ON THE PRIMARY CLINICAL RECORDS. [employer] provides no warranty or guarantee of the accuracy or completeness of information in this document.
[2024-02-06 10:05] VITALS: BP 115/63; PULSE 93
== END 2024-02-06 10:32 | disposition home or self-care (01) ==
LOC: FBCO 07:40 → FBC 10:02
PROVIDERS: Visit Provider Obstetrics & Gynecology
DX: O26.893 Other specified pregnancy related conditions, third trimester (principal)
CPT/HCPCS: 59025

== ENCOUNTER 2024-02-10 07:18 | Outpatient (OUT) | payer OTHER, SELFPAY ==
--- NOTE | 2024-02-10 | US_ITS ---
[address] [address] Patient Name: JERAMY SWEENEY MRN: [id number] date: 1995 Sex: F Assigned Patient Location: US Current Patient Location: US Accession/Order Number: [id number] Exam Date: 02/10/2024 13:59 Report Date: 02/10/2024 14:55 At the request of: BRIA DIAL Procedure: US OB BPP w non-stress EXAMINATION: US OB BPP w non-stress HISTORY: HISTORY OF MISCARRIAGE Z87.59, HISTORY OF OLIGOHYDRAMNIOS COMPARISON: Ultrasound OB biophysical 02/03/2024 TECHNIQUE: Ultrasound biophysical profile was performed in the radiology department. BREATHING MOVEMENTS: 2 GROSS BODY MOVEMENTS: 2 TONE: 2 QUALITATIVE AMNIOTIC FLUID VOLUME: 2 PRESENTATION: CEPHALIC HEART RATE: 145.2 bpm bpm. AMNIOTIC FLUID VOLUME: 19.6 cm GESTATIONAL AGE: 37 weeks 0 days CONCLUSION: Total biophysical profile score 8. Electronically authenticated by: GENI CABRAL Date: 02/10/2024 14:55
--- OUTSIDE RECORDS SUMMARY | 2024-02-10 07:21 | XMS_ITS | CCD ---
Author Organization [facility] Care Team Providers Care Landfill Grader Name Role Phone RUSSELL, DR DEBBIE Mohan [...] for nausea or vomiting. 0 Active vit no.345-bunt-qrzni acid ( VITAMIN) 27 mg iron- 800 mcg tablet (6 sources) take 1 tablet by mouth in the morning vit no.664-bvoq-hvvuq acid ( VITAMIN) 27 mg iron- 800 [...] 01-28-2023 Chronic Other aftercare (1 source) Other [facility] (current[facility] drug therapy; Translations: [OTH CUSTODIAL CURRENT DRUG THERAPY] Onset: 01-23-2023 Episodic Other [...] UA Negative Negative - 4(70) +++ mg/dL [facility] Blood, UA Negative Negative - 50 Felice/mcL [facility] Clarity, UA Clear [facility] Color, UA Yellow [facility] Healthcar e Glucose, UA Negative Negative - 1999(110) ++++ mg/dL [facility] Interpretation and review of laboratory results Normal [facility] Ketones, UA Negative Negative - 160(16) ++++ mg/dL [facility] Leukocytes, UA Negative Negative - 500+++ Regina/mcL [facility] Nitrite, UA Negative Negative - Positive [facility] pH, UA 5.5 5 - 9 [facility] Healthcar e Protein, UA Negative Negative - 1999(20) ++++ mg/dL [facility] Spec Grav, UA 1.030 1 - 1.03 [facility] care Urobilinogen, UA 0.2 0.2 - 12 mg/dL [facility] PREG QUANT HCGon 01-28-2023 HCG QUANT 17 mIU/mL Normal [facility] Comment on above: Performed By: #### P REGQNT #### [facility] [address] [address] [address] Anna Romero HCG RANGE SEE BELOW Normal [facility] Comment on above: Result Comment: 5-50 0.2-1 WEEK 50-500 1-2 WEEKS 100-5,000 2-3 WEEKS 500-10,000 3-4 WEEKS 1,000-50,000 4-5 WEEKS 10,000-100,000 5-6 WEEKS 15,000-200,000 6-8 WEEKS 10,000-100,000 2-3 MONTHS Performed By: #### P REGQNT #### [facility] [address] [place] [address] Dr. Anna Romero PREG QUANT HCGon 01-23-2023 HCG QUANT 441 mIU/mL Normal [facility] Comment on above: Performed By: #### S CARLA GRASTCX #### [facility] [address] [place] [address] Dr. Anna Romero HCG RANGE SEE BELOW Normal [facility] Comment on above: Result Comment: 5-50 0.2-1 WEEK 50-500 1-2 WEEKS 100-5,000 2-3 WEEKS 500-10,000 3-4 WEEKS 1,000-50,000 4-5 WEEKS 10,000-100,000 5-6 WEEKS 15,000-200,000 6-8 WEEKS 10,000-100,000 2-3 MONTHS Performed By: #### Jovany AGUIRRE GRASTCX #### [facility] [address] [place] [address] Dr. Anna Romero ABO AND RH TYPEon 01-21-2023 ABO and Rh group Nom (Bld) ABO Rh Typing A Rh Positive Normal [facility] Comment on above: Performed By: #### Jovany AGUIRRE GRASTCX #### [facility] [address] [place] [address] Dr. Anna Romero ER URINE PROFILEon 3 Bilirubin Ql (U) Negative Normal NEGATIVE [facility] Comment on above: Performed By: #### VINCENT URIAS #### [facility] [address] [place] [address] Dr. Anna Romero Clarity (U) CLEAR Normal CLEAR [facility] Comment on above: Performed By: #### JD URIASRO #### [facility] [address] [place] [address] Dr. Anna Romero Color (U) YELLOW Normal YELLOW [facility] Comment on above: Performed By: #### E TAYLORR, UMICRO #### [facility] [address] [place] [address] Dr. Anna BAER A micrscopic examination will be performed if indicated. Normal [facility] Comment on above: Performed By: #### E RUR, UMICRO #### [facility] [address] [place] [address] Dr. Anna Romero Glucose Ql (U) Negative Normal NEGATIVE [facility] Comment on above: Performed By: #### E RUR, UMICRO #### [facility] [address] [place] [address] Dr. Anna Romero Hemoglobin Ql (U) LARGE Abnormal NEGATIVE [facility] Comment on above: Performed By: #### E RUR, UMICRO #### [facility] [address] [place] [address] Dr. Anna Romero Ketones Ql (U) Negative Normal NEGATIVE [facility] Comment on above: Performed By: #### E RUR, UMICRO #### [facility] [address] [place] [address] Dr. Anna Romero LEUKOCYTES Negative Normal NEGATIVE [facility] Comment on above: Performed By: #### E RUR, UMICRO #### [facility] [address] [place] [address] Dr. Anna Romero Nitrite Ql (U) Negative Normal NEGATIVE [facility] Comment on above: Performed By: #### E RUR, UMICRO #### [facility] [address] [place] [address] Dr. Anna Romero pH (U) 5.5 [pH] Normal 5-9 [facility] Comment on above: Performed By: #### E RUR, UMICRO #### [facility] [address] [place] [address] Dr. Anna Romero SPEC GRAVITY >=1.030 Abnormal 1.005-<=1.025 [facility] Comment on above: Performed By: #### E RUR, UMICRO #### [facility] [address] [place] [address] Dr. Anna Romero UA PROTEIN TRACE Normal NEGATIVE/ TRACE [facility] Comment on above: Performed By: #### E RUR, UMICRO #### [facility] [address] [address] [address] Anna Romero UR MICRO IND INDICATED Normal [facility] Comment on above: Performed By: #### E RUR, UMICRO #### [facility] [address] [place] [address] Dr. Anna Romero Urobilinogen Qn (U) 0.2 {Joel'U}/dL Normal 0.2 - 1. 0 [facility] Comment on above: Performed By: #### E CHELSEY, UMICRO #### [facility] [address] [place] [address] Dr. Anna Romero PREG QUANT HCGon 01-21-2023 HCG QUANT 1693 mIU/mL Normal [facility] Comment on above: Performed By: #### S SCRN, GRASTCX #### [facility] [address] [place] [address] Dr. Anna Romero HCG RANGE SEE BELOW Normal [facility] Comment on above: Result Comment: 5-50 0.2-1 WEEK 50-500 1-2 WEEKS 100-5,000 2-3 WEEKS 500-10,000 3-4 WEEKS 1,000-50,000 4-5 WEEKS 10,000-100,000 5-6 WEEKS 15,000-200,000 6-8 WEEKS 10,000-100,000 2-3 MONTHS Performed By: #### S SCRN, GRASTCX #### [facility] [address] [place] [address] Dr. Anna Romero URINE MICROSCOPIC ONLYon BACTERIA TRACE Abnormal NONE SEEN [facility] Comment on above: Performed By: #### E TAYLORR, UMICRO #### [facility] [address] [place] [address] Dr. Anna Romero Bacteria identified Cx Nom (U) NOT INDICATED Normal [facility] Comment on above: Performed By: #### E TAYLORR, UMICRO #### [facility] [address] [place] [address] Dr. Anna Romero CAST NONE SEEN Normal NONE SEEN [facility] Comment on above: Performed By: #### E RUR, UMICRO #### [facility] [address] [place] [address] Dr. Anna Romero Crystals LM Nom (Urine sed) NONE SEEN Normal NONE SEEN [facility] Comment on above: Performed By: #### E TAYLORR, UMICRO #### [facility] [address] [place] [address] Dr. Anna Romero Epithelial cells LM Ql (Urine sed) RARE Normal NONE SEEN /RARE [facility] Comment on above: Performed By: #### E CHELSEY, UMICRO #### [facility] [address] [place] [address] Dr. Anna Romero MUCOUS TRACE Abnormal NONE SEEN [facility] Comment on above: Performed By: #### Yared BARBOSA UMICRO #### [facility] [address] [place] [address] Dr. Anna Romero RBC 2-5 Abnormal 0-2 [facility] Comment on above: Performed By: #### Yared BARBOSA UMICRO #### [facility] [address] [place] [address] Dr. Anna Romero WBC 0-2 Abnormal NONE SEEN [facility] Comment on above: Performed By: #### Yared BARBOSA UMICRO #### [facility] [address] [place] [address] Dr. Anna Romero US PREG TVon 01-21-2023 [...] LUDWIG JEAN BAPTISTE Date: 2023-01-21 16:54 Normal [facility] ER URINE PROFILEon 3 Bilirubin Ql (U) Negative Normal NEGATIVE [facility] Comment on above: Performed By: #### E RUR #### [facility] [address] [place] [address] Dr. Anna Romero Clarity (U) CLEAR Normal CLEAR [facility] Comment on above: Performed By: #### E RUR #### [facility] [address] [place] [address] Dr. Anna Romero Color (U) YELLOW Normal YELLOW [facility] Comment on above: Performed By: #### E RUR #### [facility] [address] [place] [address] Dr. Anna BAER A micrscopic examination will be performed if indicated. Normal [facility] Comment on above: Performed By: #### E RUR #### [facility] [address] [place] [address] Dr. Anna Romero Glucose Ql (U) Negative Normal NEGATIVE [facility] Comment on above: Performed By: #### E RUR #### [facility] [address] [place] [address] Dr. Anna Romero Hemoglobin Ql (U) Negative Normal NEGATIVE [facility] Comment on above: Performed By: #### E RUR #### [facility] [address] [place] [address] Dr. Anna Romero Ketones Ql (U) Negative Normal NEGATIVE [facility] Comment on above: Performed By: #### E RUR #### [facility] [address] [place] [address] Dr. Anna Romero LEUKOCYTES Negative Normal NEGATIVE [facility] Comment on above: Performed By: #### E RUR #### [facility] [address] [place] [address] Dr. Anna Romero Nitrite Ql (U) Negative Normal NEGATIVE [facility] Comment on above: Performed By: #### E RUR #### [facility] [address] [place] [address] Dr. Anna Romero pH (U) 6.5 [pH] Normal 5-9 [facility] Comment on above: Performed By: #### E RUR #### [facility] [address] [place] [address] Dr. Anna Romero SPEC GRAVITY 1.025 Normal 1.005-<=1.025 [facility] Comment on above: Performed By: #### E RUR #### [facility] [address] [place] [address] Dr. Anna Romero UA PROTEIN TRACE Normal NEGATIVE/ TRACE [facility] Comment on above: Performed By: #### E RUR #### [facility] [address] [place] [address] Dr. Anna Romero UR MICRO IND NOT INDICATED Normal [facility] Comment on above: Performed By: #### E RUR #### [facility] [address] [place] [address] Dr. Anna Romero Urobilinogen Qn (U) 0.2 {Joel'U}/dL Normal 0.2 - 1. 0 [facility] Comment on above: Performed By: #### E RUR #### [facility] [address] [address] [address] Anna Romero GROUP A STREP CULTUREon 12-13 S. pyogenes Ag Ql (Unsp spec) Culture Observations: NEGATIVE FOR GROUP A STREPTOCOCCUS. Normal [facility] Comment on above: Performed By: #### S SCRN, GRASTCX #### [facility] [address] [address] [address] Anna Romero STREPT SCREENon 01-08-2023 STREP SCREEN A Negative Normal NEGATIVE [facility] Comment on above: Performed By: #### S SCRN, GRASTCX #### [facility] [address] [place] [address] Dr. Anna Romero SYMPTOMATIC COVID-19 ANTIGEN on 01-08-2023 EUA Statement SEE BELOW Normal [facility] Comment on above: Result [...] Performed By: #### S SCRN, GRASTCX #### [facility] [address] [place] [address] Dr. Anna Romero SARS-CoV-2 (COVID-19) RNA DAVY+probe Ql (Unsp spec) Positive Abnormal NEGATIVE [facility] Comment on above: Performed By: #### S SCRN, GRASTCX #### [facility] [address] [address] [address] Anna Romero US PREG TVon 05-31-2022 [...] GENI CABRAL Date: 2022-05-31 19:46 Normal [facility] BILIRUBIN TOTALon 03-16-2022 Bilirubin [Mass/Vol] 0.3 mg/dL Normal 0.2-1.0 [facility] Comment on above: Performed By: #### T DALE #### [facility] [address] [place] [address] Dr. Anna Romero CBC AUTO DIFFon 03-16-2022 BASO # 0.0 103/ul Normal 0.0-0.1 [facility] Comment on above: Performed By: #### C BC #### [facility] [address] [place] [address] Dr. Anna Romero Basophils/100 WBC (Bld) 0.4 % Normal 0.2-2.0 [facility] Comment on above: Performed By: #### C BC #### [facility] [address] [place] [address] Dr. Anna Romero EO # 0.0 103/ul Normal 0.0-0.7 [facility] Comment on above: Performed By: #### C BC #### [facility] [address] [place] [address] Dr. Anna Romero Eosinophils/100 WBC (Bld) 0.2 % Critically low 0.9-7.0 [facility] Comment on above: Performed By: #### C BC #### [facility] [address] [place] [address] Dr. Anna Romero Erythrocyte distribution width (RBC) [Ratio] 12.8 % Normal 11.0-15.0 [facility] Comment on above: Performed By: #### C BC #### [facility] [address] [place] [address] Dr. Anna Romero Hematocrit (Bld) [Volume fraction] 39.2 % Normal 36.0-48.0 [facility] Comment on above: Performed By: #### C BC #### [facility] [address] [place] [address] Dr. Anna Romero Hemoglobin (Bld) [Mass/Vol] 12.9 g/dL Normal 12.0-16.0 [facility] Comment on above: Performed By: #### C BC #### [facility] [address] [place] [address] Dr. Anna Romero IG # 0.01 10e3/ul Normal 0.00-0.03 [facility] Comment on above: Performed By: #### C BC #### [facility] [address] [place] [address] Dr. Anna Romero IG % 0.2 % Normal 0.0-0.5 [facility] Comment on above: Performed By: #### C BC #### [facility] [address] [place] [address] Dr. Anna Romero LYMPH # 1.6 103/ul Normal 1.2-3.8 [facility] Comment on above: Performed By: #### C BC #### [facility] [address] [place] [address] Dr. Anna Romero Lymphocytes/100 WBC (Bld) 29.8 % Normal 20.5-60.0 [facility] Comment on above: Performed By: #### C BC #### [facility] [address] [place] [address] Dr. Anna Romero MANUAL DIFF REQ NO Normal [facility] Comment on above: Performed By: #### C BC #### [facility] [address] [place] [address] Dr. Anna Romero MCH (RBC) [Entitic mass] 31.8 pg Normal 26.7-34.0 [facility] Comment on above: Performed By: #### C BC #### [facility] [address] [place] [address] Dr. Anna Romero MCHC (RBC) [Mass/Vol] 32.9 g/dL Normal 29.9-35.2 [facility] Comment on above: Performed By: #### C BC #### [facility] [address] [place] [address] Dr. Anna Romero MCV (RBC) [Entitic vol] 96.6 fL Normal 81.0-99.0 [facility] Comment on above: Performed By: #### C BC #### [facility] [address] [place] [address] Dr. Anna Romero MONO # 0.4 103/ul Normal 0.3-0.8 [facility] Comment on above: Performed By: #### C BC #### [facility] [address] [place] [address] Dr. Anna Romero Monocytes/100 WBC (Bld) 7.2 % Normal 1.7-12.0 [facility] Comment on above: Performed By: #### C BC #### [facility] [address] [place] [address] Dr. Anna Romero NEUT # 3.3 103/ul Normal 1.4-6.5 [facility] Comment on above: Performed By: #### C BC #### [facility] [address] [place] [address] Dr. Anna Romero Neutrophils/100 WBC (Bld) 62.2 % Normal 43.0-75.0 [facility] Comment on above: Performed By: #### C BC #### [facility] [address] [place] [address] Dr. Anna Romero Platelet mean volume (Bld) [Entitic vol] 10.0 fL Normal 9.5-13.5 [facility] Comment on above: Performed By: #### C BC #### [facility] [address] [place] [address] Dr. Anna Romero PLT 153 103/ul Normal 150-450 [facility] Comment on above: Performed By: #### C BC #### [facility] [address] [place] [address] Dr. Anna Romero RBC 4.06 106/ul Critically low 4.20-5.40 [facility] Comment on above: Performed By: #### C BC #### [facility] [address] [place] [address] Dr. Anna Romero WBC 5.3 103/ul Normal 4.0-11.0 [facility] Comment on above: Performed By: #### C BC #### [facility] [address] [place] [address] Dr. Anna Romero FREE T3on 03-16-2022 FREE T3 3.18 pg/mlL Normal 2.18-3.98 [facility] Comment on above: Performed By: #### S SCRN GRASTCX #### [facility] [address] [place] [address] Dr. Anna Romero FREE T4on 03-16-2022 Free T4 [Mass/Vol] 1.08 ng/dL Normal 0.76-1.46 [facility] Comment on above: Performed By: #### F T4 #### [facility] [address] [place] [address] Dr. Anna Romero PROF 14(COMP METB)on 022 Albumin [Mass/Vol] 4.3 g/dL Normal 3.4-5.0 [facility] Comment on above: Performed By: #### S SCRN, GRASTCX #### [facility] [address] [place] [address] Dr. Anna Romero Albumin/Globulin [Mass ratio] 1.2 {ratio} Normal [facility] Comment on above: Performed By: #### S SCRN, GRASTCX #### [facility] [address] [place] [address] Dr. Anna Romero ALP [Catalytic activity/Vol] 60 U/L Normal 46-116 [facility] Comment on above: Performed By: #### S SCRN, GRASTCX #### [facility] [address] [address] [address] Anna Romero ALT [Catalytic activity/Vol] 25 U/L Normal 14-59 [facility] Comment on above: Performed By: #### S SCRN, GRASTCX #### [facility] [address] [address] [address] Anna Romero Anion gap [Moles/Vol] 13.8 mmol/L Normal [facility] Comment on above: Performed By: #### S SCRN, GRASTCX #### [facility] [address] [address] [address] Anna Romero AST [Catalytic activity/Vol] 21 U/L Normal 15-37 [facility] Comment on above: Performed By: #### S SCRN, GRASTCX #### [facility] [address] [address] [address] Anna Romero Calcium [Mass/Vol] 9.4 mg/dL Normal 8.5-10.1 [facility] Comment on above: Performed By: #### S SCRN, GRASTCX #### [facility] [address] [address] [address] Anna Romero Chloride [Moles/Vol] 101 mmol/L Normal 98-107 [facility] Comment on above: Performed By: #### S SCRN, GRASTCX #### [facility] [address] [address] [address] Anna Romero CO2 [Moles/Vol] 26.8 mmol/L Normal 21.0-32.0 [facility] Comment on above: Performed By: #### S SCRN, GRASTCX #### [facility] [address] [address] [address] Anna Romero Creatinine [Mass/Vol] 0.87 mg/dL Normal 0.55-1.02 [facility] Comment on above: Performed By: #### S SCRN, GRASTCX #### [facility] [address] [address] [address] Anna Romero EGFR-AF SOUTH AFR[place] >60 Normal >=60 [facility] Comment on above: Performed By: #### S SCRN, GRASTCX #### [facility] [address] [address] [address] Anna Romero EGFR-NON AF [place] >60 Normal >=60 [facility] Comment on above: Performed By: #### S SCRN, GRASTCX #### [facility] [address] [place] [address] Dr. Anna Romero Globulin (S) [Mass/Vol] 3.5 g/dL Normal [facility] Comment on above: Performed By: #### S SCRN, GRASTCX #### [facility] [address] [place] [address] Dr. Anna Romero Glucose [Mass/Vol] 80 mg/dL Normal 74-106 [facility] Comment on above: Performed By: #### S SCRN, GRASTCX #### [facility] [address] [place] [address] Dr. Anna Romero Potassium [Moles/Vol] 3.6 mmol/L Normal 3.5-5.1 [facility] Comment on above: Performed By: #### S SCRN, GRASTCX #### [facility] [address] [place] [address] Dr. Anna Romero Protein [Mass/Vol] 7.8 g/dL Normal 6.4-8.2 [facility] Comment on above: Performed By: #### S SCRN, GRASTCX #### [facility] [address] [place] [address] Dr. Anna Romero Sodium [Moles/Vol] 138 mmol/L Normal 136-145 [facility] Comment on above: Performed By: #### S SCRN, GRASTCX #### [facility] [address] [place] [address] Dr. Anna Romero Urea nitrogen [Mass/Vol] 12.0 mg/dL Normal 7.0-18.0 [facility] Comment on above: Performed By: #### S SCRN, GRASTCX #### [facility] [address] [place] [address] Dr. Anna Romero Urea nitrogen/Creatinine [Mass ratio] 13.8 mg/mg Normal [facility] Comment on above: Performed By: #### S SCRN, GRASTCX #### [facility] [address] [place] [address] Dr. Anna Romero TSHon 03-16-2022 TSH 2.442 uIU/mL Normal 0.358-3.740 [facility] Comment on above: Performed By: #### S SCRN, GRASTCX #### [facility] [address] [place] [address] Dr. Anna Romero TSH RANGE SEE BELOW Normal [facility] Comment on above: Result Comment: <0.3 4 UIU/ml HYPERTHYROID 0.34-5.60 UIU/ml EUTHYROID >5.60 UIU/ml HYPOTHYROID Performed By: #### S SCRN, GRASTCX #### [facility] [address] [place] [address] Dr. Anna Romero Vital Signs Date Time Vital Sign Value Performing Clinician Faci lity 11-27-2023 14:46-0500 Body mass index (BMI) [Ratio] 25.66 kg/m2 Rosana HAYES Work Phone: [facility] 11-27-2023 14:46-0500 Body weight 72.12 kg Rosana HAYES Work Phone: [facility] 11-27-2023 14:46-0500 Diastolic blood pressure 60 mm[Hg] Rosana HAYES Work Phone: [facility] 11-27-2023 14:46-0500 Systolic blood pressure 102 mm[Hg] Rosana HAYES Work Phone: [facility] 10-16-2023 12:21-0500 Body height 170.2 cm Haseeb Nice MD Work Phone: [facility] 10-16-2023 12:21-0500 Body mass index (BMI) [Ratio] 22.55 kg/m2 Haseeb Nice MD Work Phone: [facility] 10-16-2023 12:21-0500 Body weight 65.32 kg Haseeb Nice MD Work Phone: [facility] 10-16-2023 12:21-0500 Diastolic blood pressure 66 mm[Hg] Haseeb Nice MD Work Phone: [facility] 10-16-2023 12:21-0500 Heart rate 79 /min Haseeb Nice MD Work Phone: [facility] 10-16-2023 12:21-0500 Systolic blood pressure 109 mm[Hg] Haseeb Nice MD Work Phone: [facility] Encounters Encounter Date Encounter Type Care [...] visit 15 minutes Rosana HAYES Work Phone: [facility] Comment on above: Second trimester pre gnancy; with normal glucose tolerance test (GTT); Diabetes mellitus screening; History of miscarriage; History of oligohydramnios Start: 11-19-2023 End: 11-20-2023 ambulatory BRIA R [facility] Start: 10-29-2023 End: 10-30-2023 ambulatory BRIA R [facility] Start: 10-28-2023 End: 10-28-2023 ambulatory BRIA YOJANA Not Available Start: 10-22-2023 Documentation procedure Haseeb Nice MD Work Phone: [facility] Start: 10-22-2023 Telephone encounter Rachelle Mullen L PN [facility] Start: 10-21-2023 Chart abstracting Aliya berger MD Work Phone: [facility] Start: 10-17-2023 Orders Only Robbi Rodriguez 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 [employer] [facility] Comment on above: History of oligohydr amnios in prior , currently (Primary Dx) Start: 10-16-2023 End: 10-17-2023 ambulatory BRIA BALES [facility] Start: 10-16-2023 End: 10-16-2023 Office outpatient new 45 minutes Hind Darius Nice MD Work Phone: [facility] Comment on above: High-risk in second trimester (Primary Dx); History of oligohydramnios in prior , currently ; 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; 20 weeks gestation of Start: 10-15-2023 Chart abstracting Scanning Pro vider External [facility] Start: 10-08-2023 End: 10-08-2023 ambulatory BRIA [...] Td Vaccines (9 - Td or Tdap) [facility] Start: 10-17-2024 End: 10-17-2024 US MFM with or without consult US MFM with or without consult Imaging Routine History of oligohydramnios in prior , currently Expected: 10/17/2024 (Approximate), Expires: 10/17/2024 [facility] Work Phone: Comment on above: Expected: 10/17/2024 (Approximate), Expires: 10/17/2024 Start: 10-16-2024 Adult BMI Screening Adult BMI Screen ing [facility] Start: 10-16-2024 Tobacco Screening Tobacco Screening [facility] Start: 12-11-2023 End: 12-11-2023 Patient encounter procedure 12/11/2023 10:20 AM EST Routine [facility] [address] [place] [id number] Bria Bales, DO [address] [place] [address] [facility] Start: 11-27-2023 End: 11-27-2024 [...] mellitus screening Expected: 11/27/2023 (Approximate), Expires: 11/27/2024 [facility] Comment on above: Expected: 11/27/2023 (Approximate), Expires: 11/27/2024 Start: 11-27-2023 End: 11-27-2024 US biophysical profile w non stress test US biophysical profile w non stress test Imaging Routine History of miscarriage History of oligohydramnios Expected: 11/27/2023 (Approximate), Expires: 11/27/2024 [facility] Comment on above: Expected: 11/27/2023 (Approximate), Expires: 11/27/2024 Start: 11-27-2023 End: 11-27-2024 US for US OB SCAN FOR GROWTH Imaging Routine History of miscarriage History of oligohydramnios Expected: 11/27/2023 (Approximate), Expires: 11/27/2024 [facility] Comment on above: Expected: 11/27/2023 (Approximate), Expires: 11/27/2024 Start: 11-19-2023 End: 11-19-2023 Patient encounter procedure 11/19/2023 9:15 AM EST Appointment [facility] - Ultrasound [address] [place] [address] [facility] - Ultrasound Start: 10-29-2023 End: 10-29-2023 Patient encounter procedure 10/29/2023 9:15 AM EST Appointment [facility] - Ultrasound [address] [place] [address] [facility] - Ultrasound Start: 10-16-2023 End: 10-16-2023 Patient encounter procedure 10/16/2023 1:00 PM EST Office Visit [facility] [address] [place] [address] Haseeb Nice MD [address] [place] [address] [facility] Start: 10-16-2023 Subsequent hospital visit by physician 10/16/2023 11:30 AM EST Hospital Encounter [facility] [address] [place] [address] [facility] Start: 06-14-2023 Influenza vaccination Influenza Vacc ine [facility] Start: 2014 Screening for malignant neoplasm of cervix Pap Smear [facility] Start: 2012 DTaP,Tdap and Td Vaccines (1 - Tdap) DTaP,Tdap and Td Vaccines (1 - Tdap) [facility] Start: 2011 Adult BMI Screening Adult BMI Screen ing [facility] Start: 2005 Depression Screening Depression Scre ening [facility] Start: 2005 Tobacco Screening Tobacco Screening [facility] Start: 1993 Tobacco Counseling Tobacco Counselin g [facility] Payers Date Payer Category Payer Medicaid [id number] 1993 Unknown [id number] 2.16.84 0.1.808331.3.579.2.593 1993 Unknown [id number] 2.16.84 0.1.365016.3.579.2.593 1993 Unknown [id number] 2.16.84 0.1.849777.3.579.2.593 1993 Unknown [id number] 2.16.84 0.1.572846.3.579.2.593 1993 Unknown [id number] 2.16.84 0.1.985821.3.579.2.593 1993 Unknown [id number] 2.16.84 0.1.144039.3.579.2.593 1993 Unknown [id number] 2.16.84 0.1.366109.3.579.2.593 1993 Unknown [id number] 2.16.84 0.1.153069.3.579.2.593 1993 Unknown [id number] 2.16.84 0.1.921983.3.579.2.593 1993 Unknown [id number] 2.16.84 0.1.508613.3.579.2.593 1993 Unknown [id number] 2.16.84 0.1.655945.3.579.2.593 1993 Unknown [id number] 2.16.84 0.1.257573.3.579.2.593 1993 Unknown [id number] 2.16.84 0.1.847440.3.579.2.1286 1993 Unknown [id number] 2.16.84 0.1.745637.3.579.2.1286 1993 Unknown [id number] 2.16.8 40.1.002802.3.579.2.1286 1993 Unknown [id number] 2.16.84 0.1.731848.3.579.2.1286 1993 Unknown [id number] 2.16.84 0.1.673827.3.579.2.1259 1993 Unknown [id number] 2.16.84 0.1.371018.3.579.2.1259 1993 Unknown [id number] 2.16.84 0.1.499762.3.579.2.1259 1993 Unknown [id number] 2.16.84 0.1.333272.3.579.2.1259 1993 Unknown [id number] 2.16.84 0.1.201228.3.579.2.1259 1993 Unknown [id number] 2.16.84 0.1.145506.3.579.2.1259 1993 Unknown [id number] 2.16.84 0.1.504416.3.579.2.1259 1993 Unknown [id number] 2.16.840 .1.044871.3.579.2.1259 1993 Unknown [id number] 2.16.840 .1.199204.3.579.2.1259 1959 Self-pay [id number] 1959 Unknown [id number] 1959 Unknown [id number] Social History Date Type Detail Facility Start: 10-15-2023 Tobacco smoking status ILIS Tobacco smoking consumption unknown [facility] Start: 03-23-2019 End: 10-16-2023 History of Social function [facility] Start: 03-23-2019 End: 10-16-2023 Housing Instability [facility] Housing Instability Unknown [facility] Start: 06-10-2023 [facility] Start: 1995 Sex Assigned At Not on file [facility] Start: 10-16-2023 Tobacco smoking status [facility] Smokes tobacco daily [facility] History of tobacco use Cigarette Smoker P [facility] Start: 10-16-2023 Tobacco use and exposure Smokeless tobacco non-user [facility] Start: 10-16-2023 End: 10-21-2023 Alcohol intake Ex-drinker (finding) [facility] Start: 1995 Sex Assigned At Female [facility] Start: 08-07-2023 Gender identity Identifies as female gender (finding) [facility] Start: 08-07-2023 Sexual orientation Heterosexual (finding) [facility] Goals Date Patient Goal [...] Missed menses Non-compliant patient Smoker Thyroid disease ([facility]) No family history on file. Social History [...] of: ABIGAIL Chinchilla documented in this encounter [facility] 10-22-2023 Miscellaneous Notes Formattin g of this note might be different from the original. Please call us back to schedule an ultrasound next week. documented in this encounter [facility] 10-22-2023 Telephone encount er Note Please call us back to schedule an ultrasound next week. [facility] 10-22-2023 History of Presen t illness [...] increase p.o. hydration. documented in this encounter [facility] Personal [facility] 10-16-2023 History of Presen t illness Narrative Headache/epigastric pain/blurry vision/swelling? No Cramping/contractions? No Abnormal vaginal discharge? No Spotting/vaginal bleeding? No Loss of fluid like your water may have broken? No Cats in the home? No Do you change the litter box? N/A Flu vaccine? No Genetic testing done this here or other office? Yes Have you been seen here at [facility] in a previous ? No Recent ER visits or hospitalizations? No Bring blood sugar log or meter with you today? (Please bring them with you for every visit at [facility]) N/A Traveled outside the country in the past 6 month No Any concerns that you would like me to mention to the provider today? No [facility] Maternal- Medicine Consult Note Reason For Consult: [...] Yes Not In System Ref Prov vit no.618-mdny-rysqk acid ( VITAMIN) 27 mg iron- 800 [...] with routine care in your office [facility], the CDC, and other organizations representing maternal and public health professionals recommend that , , and lactating people and those considering receive the COVID-19 vaccination. Vaccination is the best method to reduce maternal and complications of SARS-CoV-2 infection. This document was created with [employer] technology. Though I make every effort to review the dictation as it is transcribed, on occasion the spoken word can be misinterpreted by the technology leading to inappropriate words, phrases, or sentences. This note is addressed to the requesting provider as a consultation for clinical guidance. Specific medical abbreviations are occasionally used and those are generally approved by the [place]?Board of?Obstetrics and?Gynecology?as well as?James flores abbreviations. The above plan of care was based solely on the diagnoses for which a consultation was requested. ?More frequent testing may be indicated based on her other medical/obstetrical conditions. The management of other or medical conditions is beyond the scope of requested consultation and will continue to be followed by the primary painting instructor or primary care provider. Thank you for allowing me to participate in her care. Please contact me if you have any concerns. documented in this encounter [facility] 03-16-2022 Note PROCEDURE: XR SHOULD ER RT 2V or > HISTORY: Impingement syndrome of right shoulder region ; acute right shoulder pain, no known injury COMPARISON: None. FINDINGS: BONES:No fracture, acute abnormality, or significant arthropathy. SOFT TISSUES:No visible soft tissue swelling. EFFUSION:None visible. OTHER: Negative. IMPRESSION: 1. Normal examination. Electronically authenticated by: GENI CABRAL Date: 2022-03-16 18:16 [facility] Evaluation note Diagnosis High-risk in second trimester- Primary History of oligohydramnios in prior , currently with other poor obstetric history 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 20 weeks gestation of [facility] Diagnosis History of oligohydramnios in prior , currently - Primary with other poor obstetric history [facility] Diagnosis Second trimester state, incidental with normal glucose tolerance test (GTT) Diabetes mellitus screening Screening for diabetes mellitus History of miscarriage Personal history of other genital system and obstetric disorders History of oligohydramnios documented [facility] filedocumented [facility] System[facility]ructionsNot on filedocumented in this encounterProMag[facility] SystemInstructionsNot on filedocumented in this encounterProMagruder [facility] SystemInstructionsNot on filedocumented in this [facility] Summary Purpose Family History No Family [...] MD [address] [place] [address] [facility] [address] [place] [address] Referral ID Status Reason Start Date Expiration Date V isits Requested Visits Authorized [id number] Pending Review 10/17/2023 10/16/2024 1 1 Additional Source Comments INFORMATION SOURCE (unrecogn ized section and content) DATE CREATED AUTHOR 01/31/[address] [facility] DATE CREATED AUTHOR AUTHOR'S ORGANIZ ATION 10/20/2023 [facility] DATE CREATED AUTHOR AUTHOR'S ORGANIZ ATION 11/24/2023 [facility] DATE CREATED AUTHOR AUTHOR'S ORGANIZ ATION 02/04/2024 [facility] EPIC Reason for Visit [...] BE BASED ON THE PRIMARY CLINICAL RECORDS. [employer] provides no warranty or guarantee of the accuracy or completeness of information in this document.
[2024-02-10 14:16] VITALS: BP 128/62; PULSE 109
== END 2024-02-10 14:44 | disposition home or self-care (01) ==
LOC: US 07:18 → FBC 14:00
PROVIDERS: Visit Provider Obstetrics & Gynecology
DX: Z87.59 Personal history of other complications of pregnancy, childbirth and the puerperium (principal); Z3A.37 37 weeks gestation of pregnancy
CPT/HCPCS: 76818

== ENCOUNTER 2024-02-17 07:27 | Inpatient (IN) | payer OTHER, SELFPAY ==
[2024-02-17] VITALS (52 sets, daily range): BP systolic 55–153; BP diastolic 26–86; PULSE 67–106; TEMP 35.5–36.3
--- OUTSIDE RECORDS SUMMARY | 2024-02-17 07:30 | XMS_ITS | CCD ---
Author Organization [facility] Care Team Providers Care Assistant Prosecuting Attorney Name Role Phone RUSSELL, DR DEBBIE Mohan [...] MARIS [place] Admitting Unavailable ZIEBER, DR GENI Lmeos Consulting Unavailable YOJANA ., DR FRASER Attending [...] ROSALES Attending Unavailable MARCH ., DR MARIS aVil Primary Care Unavailable CASSANDRA ROSLAES Admitting Unavailable CASSANDRA ROSALES Consulting Unavailable CASSANDRA ROSALES Attending Unavailable MARCH ., DR MARIS Vail Primary Care Unavailable Unavailable Primary Care Provider Unavailabl e YOJANA, BRIA R Referring Unavailable MOUSSAHASEEB Attending Unavailable YOJANA, BRIA R Referring Unavailable YOJANA, BRIA R Referring Unavailable NO PCP, NO PCP Primary Care Unavailable YOJANA, BRIA R Referring Unavailable NO PCP, NO PCP Primary Care Unavailable Unavailable Primary Care Provider Unavailabl e YOJANA, BRIA Attending Unavailable IRAJ, ROSANA Attending Unavailable IRAJ, ROSANA Attending Unavailable YOJANA, BRIA Attending Unavailable IRAJ, [...] for nausea or vomiting. 0 Active vit no.[id number] acid ( VITAMIN) 27 mg iron- 800 mcg tablet (6 sources) take 1 tablet by mouth in the morning vit no.150-fcip-[id number] acid ( VITAMIN) 27 mg iron- 800 [...] 01-28-2023 Chronic Other aftercare (1 source) Other alf (current) drug therapy; Translations: [OTH SENIOR BUSINESS ARCHITECT CURRENT DRUG THERAPY] Onset: 01-23-2023 Episodic Other [...] Negative - 4(70) +++ mg/dL [facility] Blood, UA Negative Negative - 50 Felice/mcL [facility] Clarity, UA Clear [facility] re Color, UA Yellow [facility] Glucose, UA Negative Negative - 1999(110) ++++ mg/dL [facility] Interpretation and review of laboratory results Normal [facility] Ketones, UA Negative Negative - 160(16) ++++ mg/dL [facility] Leukocytes, UA Negative Negative - 500+++ Regina/mcL [facility] Nitrite, UA Negative Negative - Positive [facility] pH, UA 5.5 5 - 9 [facility] Protein, UA Negative Negative - 1999(20) ++++ mg/dL [facility] Spec Grav, UA 1.030 1 - 1.03 [facility] care Urobilinogen, UA 0.2 0.2 - 12 mg/dL [facility] PREG QUANT HCGon 01-28-2023 HCG QUANT 17 mIU/mL Normal [facility] Comment on above: Performed By: #### P REGQNT #### [facility] [address] [address] [address] Anna Romero HCG RANGE SEE BELOW Normal [facility] Comment on above: Result Comment: 5-50 0.2-1 WEEK 50-500 1-2 WEEKS 100-5,000 2-3 WEEKS 500-10,000 3-4 WEEKS 1,000-50,000 4-5 WEEKS 10,000-100,000 5-6 WEEKS 15,000-200,000 6-8 WEEKS 10,000-100,000 2-3 MONTHS Performed By: #### P REGQNT #### [facility] [address] [place] [address] Dr. Anna Romero PREG QUANT HCGon 01-23-2023 HCG QUANT 441 mIU/mL Normal [facility] Comment on above: Performed By: #### S CARLA GRASTCX #### [facility] [address] [place] [address] Dr. Anna Romero HCG RANGE SEE BELOW Normal [facility] Comment on above: Result Comment: 5-50 0.2-1 WEEK 50-500 1-2 WEEKS 100-5,000 2-3 WEEKS 500-10,000 3-4 WEEKS 1,000-50,000 4-5 WEEKS 10,000-100,000 5-6 WEEKS 15,000-200,000 6-8 WEEKS 10,000-100,000 2-3 MONTHS Performed By: #### Jovany AGUIRRE GRASTCX #### [facility] [address] [place] [address] Dr. Anna Romero ABO AND RH TYPEon 01-21-2023 ABO and Rh group Nom (Bld) ABO Rh Typing A Rh Positive Normal [facility] Comment on above: Performed By: #### Jovany AGUIRRE GRASTCX #### [facility] [address] [place] [address] Dr. Anna Romero ER URINE PROFILEon 3 Bilirubin Ql (U) Negative Normal NEGATIVE [facility] Comment on above: Performed By: #### VINCENT URIAS #### [facility] [address] [place] [address] Dr. Anna Romero Clarity (U) CLEAR Normal CLEAR [facility] Comment on above: Performed By: #### JD URIASRO #### [facility] [address] [address] [address] Anna Romero Color (U) YELLOW Normal YELLOW [facility] Comment on above: Performed By: #### Albert BARBOSA UMICRO #### [facility] [address] [place] [address] Dr. Anna BAER A micrscopic examination will be performed if indicated. Normal [facility] Comment on above: Performed By: #### Albert BARBOSA UMICRO #### [facility] [address] [address] [address] Anna Romero Glucose Ql (U) Negative Normal NEGATIVE [facility] Comment on above: Performed By: #### Albert BARBOSA UMICRO #### [facility] [address] [place] [address] Dr. Anna Romero Hemoglobin Ql (U) LARGE Abnormal NEGATIVE [facility] Comment on above: Performed By: #### Albert BARBOSA UMICRO #### [facility] [address] [place] [address] Dr. Anna Romero Ketones Ql (U) Negative Normal NEGATIVE [facility] Comment on above: Performed By: #### Albert BARBOSA UMICRO #### [facility] [address] [place] [address] Dr. Anna Romero LEUKOCYTES Negative Normal NEGATIVE [facility] Comment on above: Performed By: #### Albert BARBOSA UMICRO #### [facility] [address] [place] [address] Dr. Anna Romero Nitrite Ql (U) Negative Normal NEGATIVE The [facility] Comment on above: Performed By: #### Albert BARBOSA UMICRO #### [facility] [address] [place] [address] Dr. Anna Romero pH (U) 5.5 [pH] Normal 5-9 [facility] Comment on above: Performed By: #### Albert BARBOSA UMICRO #### [facility] [address] [place] [address] Dr. Anna Romero SPEC GRAVITY >=1.030 Abnormal 1.005-<=1.025 [facility] Comment on above: Performed By: #### E RUR, UMICRO #### [facility] [address] [address] [address] Anna Romero UA PROTEIN TRACE Normal NEGATIVE/ TRACE The [facility] Comment on above: Performed By: #### E RUR, UMICRO #### [facility] [address] [address] [address] Anna Romero UR MICRO IND INDICATED Normal [facility] Comment on above: Performed By: #### E RUR, UMICRO #### [facility] [address] [address] [address] Anna Romero Urobilinogen Qn (U) 0.2 {Joel'U}/dL Normal 0.2 - 1. 0 [facility] Comment on above: Performed By: #### E RUR, UMICRO #### [facility] [address] [place] [address] Dr. Anna Romero PREG QUANT HCGon 01-21-2023 HCG QUANT 1693 mIU/mL Normal [facility] Comment on above: Performed By: #### S SCRN, GRASTCX #### [facility] [address] [place] [address] Dr. Anna Romero HCG RANGE SEE BELOW Normal [facility] Comment on above: Result Comment: 5-50 0.2-1 WEEK 50-500 1-2 WEEKS 100-5,000 2-3 WEEKS 500-10,000 3-4 WEEKS 1,000-50,000 4-5 WEEKS 10,000-100,000 5-6 WEEKS 15,000-200,000 6-8 WEEKS 10,000-100,000 2-3 MONTHS Performed By: #### S SCRN, GRASTCX #### [facility] [address] [place] [address] Dr. Anna Romero URINE MICROSCOPIC ONLYon BACTERIA TRACE Abnormal NONE SEEN [facility] Comment on above: Performed By: #### E RUR, UMICRO #### [facility] [address] [place] [address] Dr. Anna Romero Bacteria identified Cx Nom (U) NOT INDICATED Normal [facility] Comment on above: Performed By: #### E RUR, UMICRO #### [facility] [address] [place] [address] Dr. Anna Romero CAST NONE SEEN Normal NONE SEEN [facility] Comment on above: Performed By: #### E RUR, UMICRO #### [facility] [address] [place] [address] Dr. Anna Romero Crystals LM Nom (Urine sed) NONE SEEN Normal NONE SEEN [facility] Comment on above: Performed By: #### E RUR, UMICRO #### [facility] [address] [place] [address] Dr. Anna Romero Epithelial cells LM Ql (Urine sed) RARE Normal NONE SEEN /RARE [facility] Comment on above: Performed By: #### E RUR, UMICRO #### [facility] [address] [place] [address] Dr. Anna Romero MUCOUS TRACE Abnormal NONE SEEN [facility] Comment on above: Performed By: #### E RUR, UMICRO #### [facility] [address] [place] [address] Dr. Anna Romero RBC 2-5 Abnormal 0-2 [facility] Comment on above: Performed By: #### E TAYLORR, UMICRO #### [facility] [address] [place] [address] Dr. Anna Romero WBC 0-2 Abnormal NONE SEEN [facility] Comment on above: Performed By: #### Albert BARBOSA, UMICRO #### [facility] [address] [place] [address] Dr. Anna Romero US PREG TVon 01-21-2023 [...] JEAN BAPTISTE Date: 2023-01-21 16:54 Normal [facility] ER URINE PROFILEon 3 Bilirubin Ql (U) Negative Normal NEGATIVE [facility] Comment on above: Performed By: #### E RUR #### [facility] [address] [place] [address] Dr. Anna Romero Clarity (U) CLEAR Normal CLEAR [facility] Comment on above: Performed By: #### E RUR #### [facility] [address] [place] [address] Dr. Anna Romero Color (U) YELLOW Normal YELLOW [facility] Comment on above: Performed By: #### E RUR #### [facility] [address] [place] [address] Dr. Anna BAER A micrscopic examination will be performed if indicated. Normal [facility] Comment on above: Performed By: #### E RUR #### [facility] [address] [place] [address] Dr. Anna Romero Glucose Ql (U) Negative Normal NEGATIVE [facility] Comment on above: Performed By: #### E RUR #### [facility] [address] [place] [address] Dr. Anna Romero Hemoglobin Ql (U) Negative Normal NEGATIVE [facility] Comment on above: Performed By: #### E RUR #### [facility] [address] [place] [address] Dr. Anna Romero Ketones Ql (U) Negative Normal NEGATIVE [facility] Comment on above: Performed By: #### E RUR #### [facility] [address] [place] [address] Dr. Anna Romero LEUKOCYTES Negative Normal NEGATIVE [facility] Comment on above: Performed By: #### E RUR #### [facility] [address] [place] [address] Dr. Anna Romero Nitrite Ql (U) Negative Normal NEGATIVE [facility] Comment on above: Performed By: #### E RUR #### [facility] [address] [place] [address] Dr. Anna Romero pH (U) 6.5 [pH] Normal 5-9 [facility] Comment on above: Performed By: #### E RUR #### [facility] [address] [place] [address] Dr. Anna Romero SPEC GRAVITY 1.025 Normal 1.005-<=1.025 The [facility] Comment on above: Performed By: #### E RUR #### [facility] [address] [place] [address] Dr. Anna Romero UA PROTEIN TRACE Normal NEGATIVE/ TRACE The [facility] Comment on above: Performed By: #### E RUR #### [facility] [address] [place] [address] Dr. Anna Romero UR MICRO IND NOT INDICATED Normal The [facility] Comment on above: Performed By: #### E RUR #### [facility] [address] [place] [address] Dr. Anna Romero Urobilinogen Qn (U) 0.2 {Joel'U}/dL Normal 0.2 - 1. 0 [facility] Comment on above: Performed By: #### E RUR #### [facility] [address] [address] [address] Anna Romero GROUP A STREP CULTUREon 12-13 S. pyogenes Ag Ql (Unsp spec) Culture Observations: NEGATIVE FOR GROUP A STREPTOCOCCUS. Normal [facility] Comment on above: Performed By: #### S SCRN, GRASTCX #### [facility] [address] [address] [address] Anna Romero STREPT SCREENon 01-08-2023 STREP SCREEN A Negative Normal NEGATIVE [facility] Comment on above: Performed By: #### S SCRN, GRASTCX #### [facility] [address] [address] [address] Anna Romero SYMPTOMATIC COVID-19 ANTIGEN on 01-08-2023 EUA Statement SEE BELOW Normal [facility] Comment on above: Result Comment: This [...] Performed By: #### S SCRN, GRASTCX #### [facility] [address] [place] [address] Dr. Anna Romero SARS-CoV-2 (COVID-19) RNA DAVY+probe Ql (Unsp spec) Positive Abnormal NEGATIVE [facility] Comment on above: Performed By: #### S SCRN, GRASTCX #### [facility] [address] [address] [address] Anna Romero US PREG TVon 05-31-2022 [...] GENI CABRAL Date: 2022-05-31 19:46 Normal [facility] BILIRUBIN TOTALon 03-16-2022 Bilirubin [Mass/Vol] 0.3 mg/dL Normal 0.2-1.0 [facility] Comment on above: Performed By: #### T DALE #### [facility] [address] [place] [address] Dr. Anna Romero CBC AUTO DIFFon 03-16-2022 BASO # 0.0 103/ul Normal 0.0-0.1 [facility] Comment on above: Performed By: #### C BC #### [facility] [address] [place] [address] Dr. Anna Romero Basophils/100 WBC (Bld) 0.4 % Normal 0.2-2.0 [facility] Comment on above: Performed By: #### C BC #### [facility] [address] [place] [address] Dr. Anna Romero EO # 0.0 103/ul Normal 0.0-0.7 [facility] Comment on above: Performed By: #### C BC #### [facility] [address] [place] [address] Dr. Anna Romero Eosinophils/100 WBC (Bld) 0.2 % Critically low 0.9-7.0 [facility] Comment on above: Performed By: #### C BC #### [facility] [address] [place] [address] Dr. Anna Romero Erythrocyte distribution width (RBC) [Ratio] 12.8 % Normal 11.0-15.0 [facility] Comment on above: Performed By: #### C BC #### [facility] [address] [place] [address] Dr. Anna Romero Hematocrit (Bld) [Volume fraction] 39.2 % Normal 36.0-48.0 [facility] Comment on above: Performed By: #### C BC #### [facility] [address] [place] [address] Dr. Anna Romero Hemoglobin (Bld) [Mass/Vol] 12.9 g/dL Normal 12.0-16.0 [facility] Comment on above: Performed By: #### C BC #### [facility] [address] [place] [address] Dr. Anna Romero IG # 0.01 10e3/ul Normal 0.00-0.03 [facility] Comment on above: Performed By: #### C BC #### [facility] [address] [place] [address] Dr. Anna Romero IG % 0.2 % Normal 0.0-0.5 [facility] Comment on above: Performed By: #### C BC #### [facility] [address] [place] [address] Dr. Anna Romero LYMPH # 1.6 103/ul Normal 1.2-3.8 [facility] Comment on above: Performed By: #### C BC #### [facility] [address] [place] [address] Dr. Anna Romero Lymphocytes/100 WBC (Bld) 29.8 % Normal 20.5-60.0 [facility] Comment on above: Performed By: #### C BC #### [facility] [address] [place] [address] Dr. Anna Romero MANUAL DIFF REQ NO Normal The [facility] Comment on above: Performed By: #### C BC #### [facility] [address] [place] [address] Dr. Anna Romero MCH (RBC) [Entitic mass] 31.8 pg Normal 26.7-34.0 [facility] Comment on above: Performed By: #### C BC #### [facility] [address] [place] [address] Dr. Anna Romero MCHC (RBC) [Mass/Vol] 32.9 g/dL Normal 29.9-35.2 [facility] Comment on above: Performed By: #### C BC #### [facility] [address] [place] [address] Dr. Anna Romero MCV (RBC) [Entitic vol] 96.6 fL Normal 81.0-99.0 [facility] Comment on above: Performed By: #### C BC #### [facility] [address] [place] [address] Dr. Anna Romero MONO # 0.4 103/ul Normal 0.3-0.8 [facility] Comment on above: Performed By: #### C BC #### [facility] [address] [place] [address] Dr. Anna Romero Monocytes/100 WBC (Bld) 7.2 % Normal 1.7-12.0 [facility] Comment on above: Performed By: #### C BC #### [facility] [address] [place] [address] Dr. Anna Romero NEUT # 3.3 103/ul Normal 1.4-6.5 [facility] Comment on above: Performed By: #### C BC #### [facility] [address] [place] [address] Dr. Anna Romero Neutrophils/100 WBC (Bld) 62.2 % Normal 43.0-75.0 [facility] Comment on above: Performed By: #### C BC #### [facility] [address] [place] [address] Dr. Anna Romero Platelet mean volume (Bld) [Entitic vol] 10.0 fL Normal 9.5-13.5 [facility] Comment on above: Performed By: #### C BC #### [facility] [address] [place] [address] Dr. Anna Romero PLT 153 103/ul Normal 150-450 [facility] Comment on above: Performed By: #### C BC #### [facility] [address] [place] [address] Dr. Anna Romero RBC 4.06 106/ul Critically low 4.20-5.40 [facility] Comment on above: Performed By: #### C BC #### [facility] [address] [place] [address] Dr. Anna Romero WBC 5.3 103/ul Normal 4.0-11.0 [facility] Comment on above: Performed By: #### C BC #### [facility] [address] [place] [address] Dr. Anna Romero FREE T3on 03-16-2022 FREE T3 3.18 pg/mlL Normal 2.18-3.98 [facility] Comment on above: Performed By: #### S SCRN GRASTCX #### [facility] [address] [place] [address] Dr. Anna Romero FREE T4on 03-16-2022 Free T4 [Mass/Vol] 1.08 ng/dL Normal 0.76-1.46 [facility] Comment on above: Performed By: #### F T4 #### [facility] [address] [place] [address] Dr. Anna Romero PROF 14(COMP METB)on 022 Albumin [Mass/Vol] 4.3 g/dL Normal 3.4-5.0 [facility] Comment on above: Performed By: #### S SCRN, GRASTCX #### [facility] [address] [place] [address] Dr. Anna Romero Albumin/Globulin [Mass ratio] 1.2 {ratio} Normal [facility] Comment on above: Performed By: #### S SCRN, GRASTCX #### [facility] [address] [place] [address] Dr. Anna Romero ALP [Catalytic activity/Vol] 60 U/L Normal 46-116 [facility] Comment on above: Performed By: #### S SCRN GRASTCX #### [facility] [address] [address] [address] Anna Romero ALT [Catalytic activity/Vol] 25 U/L Normal 14-59 [facility] Comment on above: Performed By: #### S SCRN, GRASTCX #### [facility] [address] [address] [address] Anna Romero Anion gap [Moles/Vol] 13.8 mmol/L Normal [facility] Comment on above: Performed By: #### S SCRN, GRASTCX #### [facility] [address] [address] [address] Anna Romero AST [Catalytic activity/Vol] 21 U/L Normal 15-37 [facility] Comment on above: Performed By: #### S SCRN, GRASTCX #### [facility] [address] [address] [address] Anna Romero Calcium [Mass/Vol] 9.4 mg/dL Normal 8.5-10.1 [facility] Comment on above: Performed By: #### S SCRN, GRASTCX #### [facility] [address] [address] [address] Anna Romero Chloride [Moles/Vol] 101 mmol/L Normal 98-107 [facility] Comment on above: Performed By: #### S SCRN, GRASTCX #### [facility] [address] [address] [address] nAna Romero CO2 [Moles/Vol] 26.8 mmol/L Normal 21.0-32.0 [facility] Comment on above: Performed By: #### S SCRN, GRASTCX #### [facility] [address] [address] [address] Anna Romero Creatinine [Mass/Vol] 0.87 mg/dL Normal 0.55-1.02 [facility] Comment on above: Performed By: #### S SCRN, GRASTCX #### [facility] [address] [address] [address] Anna Romero EGFR-AF SUDANESE >60 Normal >=60 [facility] Comment on above: Performed By: #### S SCRN, GRASTCX #### [facility] [address] [address] [address] Anna Romero EGFR-NON AF SUDANESE >60 Normal >=60 [facility] Comment on above: Performed By: #### S SCRN, GRASTCX #### [facility] [address] [place] [address] Dr. Anna Romero Globulin (S) [Mass/Vol] 3.5 g/dL Normal [facility] Comment on above: Performed By: #### S SCRN, GRASTCX #### [facility] [address] [place] [address] Dr. Anna Romero Glucose [Mass/Vol] 80 mg/dL Normal 74-106 [facility] Comment on above: Performed By: #### S SCRN, GRASTCX #### [facility] [address] [place] [address] Dr. Anna Romero Potassium [Moles/Vol] 3.6 mmol/L Normal 3.5-5.1 [facility] Comment on above: Performed By: #### S SCRN, GRASTCX #### [facility] [address] [place] [address] Dr. Anna Romero Protein [Mass/Vol] 7.8 g/dL Normal 6.4-8.2 [facility] Comment on above: Performed By: #### S SCRN, GRASTCX #### [facility] [address] [place] [address] Dr. Anna Romero Sodium [Moles/Vol] 138 mmol/L Normal 136-145 [facility] Comment on above: Performed By: #### S SCRN, GRASTCX #### [facility] [address] [place] [address] Dr. Anna Romero Urea nitrogen [Mass/Vol] 12.0 mg/dL Normal 7.0-18.0 [facility] Comment on above: Performed By: #### S SCRN, GRASTCX #### [facility] [address] [place] [address] Dr. Anna Romero Urea nitrogen/Creatinine [Mass ratio] 13.8 mg/mg Normal [facility] Comment on above: Performed By: #### S SCRN, GRASTCX #### [facility] [address] [place] [address] Dr. Anna Romero TSHon 03-16-2022 TSH 2.442 uIU/mL Normal 0.358-3.740 [facility] Comment on above: Performed By: #### S SCRN, GRASTCX #### [facility] [address] [place] [address] Dr. Anna Romero TSH RANGE SEE BELOW Normal [facility] Comment on above: Result Comment: <0.3 4 UIU/ml HYPERTHYROID 0.34-5.60 UIU/ml EUTHYROID >5.60 UIU/ml HYPOTHYROID Performed By: #### S SCRN, GRASTCX #### [facility] [address] [place] [address] Dr. Anna Romero Vital Signs Date Time Vital Sign Value Performing Clinician Faci lity 11-27-2023 14:46-0500 Body mass index (BMI) [Ratio] 25.66 kg/m2 Rosana HAYES Work Phone: [facility] 11-27-2023 14:46-0500 Body weight 72.12 kg Rosana HAYES Work Phone: [facility] 11-27-2023 14:46-0500 Diastolic blood pressure 60 mm[Hg] Rosana HAYES Work Phone: [facility] 11-27-2023 14:46-0500 Systolic blood pressure 102 mm[Hg] Rosana HAYES Work Phone: [facility] 10-16-2023 12:21-0500 Body height 170.2 cm Haseeb Nice MD Work Phone: [facility] 10-16-2023 12:21-0500 Body mass index (BMI) [Ratio] 22.55 kg/m2 Haseeb Nice MD Work Phone: [facility] 10-16-2023 12:21-0500 Body weight 65.32 kg Haseeb Nice MD Work Phone: [facility] 10-16-2023 12:21-0500 Diastolic blood pressure 66 mm[Hg] Haseeb Nice MD Work Phone: [facility] 10-16-2023 12:21-0500 Heart rate 79 /min Haseeb Nice MD Work Phone: [facility] 10-16-2023 12:21-0500 Systolic blood pressure 109 mm[Hg] Haseeb Nice MD Work Phone: [facility] Encounters Encounter Date Encounter Type Care Provider Facility Start: 02-10-2024 End: 02-10-2024 ambulatory BRIA YOJANA Not Available Start: 02-03-2024 End: 02-03-2024 ambulatory BRIA YOJANA [...] visit 15 minutes Rosana HAYES Work Phone: [facility] Comment on above: Second trimester pre gnancy; with normal glucose tolerance test (GTT); Diabetes mellitus screening; History of miscarriage; History of oligohydramnios Start: 11-19-2023 End: 11-20-2023 [facility]ulatory [facility] Start: 10-29-2023 End: 10-30-2023 ambulatory BRIA R [facility] Start: 10-28-2023 End: 10-28-2023 ambulatory BRIA YOJANA Not Available Start: 10-22-2023 Documentation procedure Haseeb Nice MD Work Phone: [facility] Start: 10-22-2023 Telephone encounter Rachellealbert Penn PN [facility] Start: 10-21-2023 Chart abstracting Aliya berger MD Work Phone: [facility] Start: 10-17-2023 Orders Only 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 Rodriguez 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 [facility] Comment on above: History of oligohydr amnios in prior , currently (Primary Dx) Start: 10-16-2023 End: 10-17-2023 ambulatory BRIA BALES [facility] Start: 10-16-2023 End: 10-16-2023 Office outpatient new 45 minutes Hind Darius Nice MD Work Phone: [facility] Comment on above: High-risk in second trimester (Primary Dx); History of oligohydramnios in prior , currently ; 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; 20 weeks gestation of Start: 10-15-2023 Chart abstracting Scanning Pro vider External [facility] Start: 10-08-2023 End: 10-08-2023 ambulatory BRIA [...] Facility:[facility]1 Start: 03-03-2022 End: 03-03-2022 ambulatory CASSANDRA Alvin ROSALES Facility:[facility] Procedures Date Procedure Procedure Detail Performing Clinician Start: 11-27-2023 Urnls dip stick/tabl et rgnt non-auto w/o micrscp Rosana HAYES Work Phone: Plan of Treatment Date Care Activity Detail Author Start: 10-20-2032 DTaP,Tdap and Td Vaccines (9 - Td or Tdap) DTaP,Tdap and Td Vaccines (9 - Td or Tdap) [facility] Start: 10-17-2024 End: 10-17-2024 US MFM with or without consult US MFM with or without consult Imaging Routine History of oligohydramnios in prior , currently Expected: 10/17/2024 (Approximate), Expires: 10[facility]17/20[facility] Work Phone: Comment on above: Expected: 10/17/2024 (Approximate), Expires: 10/17/2024 Start: 10-16-2024 Adult BMI Screening Adult BMI Screen ing [facility] Start: 10-16-2024 Tobacco Screening Tobacco Screening [facility] Start: 12-11-2023 End: 12-11-2023 Patient encounter procedure 12/11/2023 10:20 AM EST Routine [facility] [address] [place] [address] Bria Bales DO [address] [place] [address] [facility] Start: 11-27-2023 End: 11-27-2024 CBC panel - Blood by Automated count CBC Lab Routine Diabetes mellitus screening Expected: 11/27/2023 (Approximate), Expires: 11/27/2024 [facility] Work Phone: Comment on above: Expected: 11/27/2023 (Approximate), Expires: 11/27/2024 Start: 11-27-2023 End: 11-27-2024 Measurement of glucose 1 hour after glucose challenge for glucose tolerance test Glucose tolerance, 1 hour Lab Routine Diabetes mellitus screening Expected: 11/27/2023 (Approximate), Expires: 11/27/2024 [facility] Comment on above: Expected: 11/27/2023 (Approximate), Expires: 11/27/2024 Start: 11-27-2023 End: 11-27-2024 US biophysical profile w non stress test US biophysical profile w non stress test Imaging Routine History of miscarriage History of oligohydramnios Expected: 11/27/2023 (Approximate), Expires: 11/27/2024 [facility] Comment on above: Expected: 11/27/2023 (Approximate), Expires: 11/27/2024 Start: 11-27-2023 End: 11-27-2024 US for US OB SCAN FOR GROWTH Imaging Routine History of miscarriage History of oligohydramnios Expected: 11/27/2023 (Approximate), Expires: 11/27/2024 [facility] Comment on above: Expected: 11/27/2023 (Approximate), Expires: 11/27/2024 Start: 11-19-2023 End: 11-19-2023 Patient encounter procedure 11/19/2023 9:15 AM EST Appointment [facility] - Ultrasound [address] [place] [address] [facility] - Ultrasound Start: 10-29-2023 End: 10-29-2023 Patient encounter procedure 10/29/2023 9:15 AM EST Appointment [facility] - Ultrasound [address] [place] [address] [facility] - Ultrasound Start: 10-16-2023 End: 10-16-2023 Patient encounter procedure 10/16/2023 1:00 PM EST Office Visit [facility] [address] [place] [phone] Haseeb Nice MD [address], [address] [place] [id number] [facility] Start: 10-16-2023 Subsequent hospital visit by physician 10/16/2023 11:30 AM EST Hospital Encounter [facility] [address] [facility] [place] [phone] [facility] Start: 06-14-2023 Influenza vaccination Influenza Vacc ine [facility] Start: 2014 Screening for malignant neoplasm of cervix Pap Smear [facility] Start: 2012 DTaP,Tdap and Td Vaccines (1 - Tdap) DTaP,Tdap and Td Vaccines (1 - Tdap) [facility] Start: 2011 Adult BMI Screening Adult BMI Screen ing [facility] Start: 2005 Depression Screening Depression Scre ening [facility] Start: 2005 Tobacco Screening Tobacco Screening [facility] Start: 1993 Tobacco Counseling Tobacco Counselin g [facility] Payers Date Payer Category Payer Medicaid [id number] 1993 Unknown [id number] 2.16.84 0.1.196188.3.579.2.593 1993 Unknown [id number] 2.16.84 0.1.684591.3.579.2.593 1993 Unknown [id number] 2.16.84 0.1.660603.3.579.2.593 1993 Unknown [id number] 2.16.84 0.1.728800.3.579.2.593 1993 Unknown [id number] 2.16.84 0.1.714617.3.579.2.593 1993 Unknown [id number] 2.16.84 0.1.865931.3.579.2.593 1993 Unknown [id number] 2.16.84 0.1.949125.3.579.2.593 1993 Unknown [id number] 2.16.84 0.1.986553.3.579.2.593 1993 Unknown [id number] 2.16.84 0.1.791898.3.579.2.593 1993 Unknown [id number] 2.16.84 0.1.001350.3.579.2.593 1993 Unknown [id number] 2.16.84 0.1.505043.3.579.2.593 1993 Unknown [id number] 2.16.84 0.1.132307.3.579.2.593 1993 Unknown [id number] 2.16.84 0.1.350560.3.579.2.1286 1993 Unknown [id number] 2.16.84 0.1.067418.3.579.2.1286 1993 Unknown [id number] 2.16.8 40.1.861165.3.579.2.1286 1993 Unknown [id number] 2.16.84 0.1.806851.3.579.2.1286 1993 Unknown [id number] 2.16.84 0.1.379149.3.579.2.1259 1993 Unknown [id number] 2.16.84 0.1.876702.3.579.2.1259 1993 Unknown [id number] 2.16.84 0.1.669416.3.579.2.1259 1993 Unknown [id number] 2.16.84 0.1.616253.3.579.2.1259 1993 Unknown [id number] 2.16.84 0.1.313249.3.579.2.1259 1993 Unknown [id number] 2.16.84 0.1.070946.3.579.2.9 1993 Unknown [id number] 2.16.84 0.1.121476.3.579.2.1259 1993 Unknown [id number] 2.16.84 0.1.151732.3.579.2.9 1993 Unknown [id number] 2.16.840 .1.704463.3.579.2.1259 1993 Unknown [id number] 2.16.840 .1.515767.3.579.2.1259 1959 Self-pay [id number] 1959 Unknown [id number] 1959 Unknown [id number] Social History Date Type Detail Facility Start: 10-15-2023 Tobacco smoking status MEIS Tobacco smoking consumption unknown [facility] Start: 03-23-2019 End: 10-16-2023 History of Social function [facility] Start: 03-23-2019 End: 10-16-2023 Housing Instability [facility] Housing Instability Unknown [facility] Start: 06-10-2023 [facility] Start: 1995 Sex Assigned At Not on file [facility] Start: 10-16-2023 Tobacco smoking status [facility] Smokes tobacco daily [facility] History of tobacco use Cigarette Smoker [facility] Start: 10-16-2023 Tobacco use and exposure Smokeless tobacco non-user [facility] Start: 10-16-2023 End: 10-21-2023 Alcohol intake Ex-drinker (finding) [facility] Start: 1995 Sex Assigned At Female [facility] Start: 08-07-2023 Gender identity Identifies as female gender (finding) [facility] Start: 08-07-2023 Sexual orientation Heterosexual (finding) [facility] Goals Date Patient Goal [...] Missed menses Non-compliant patient Smoker Thyroid disease ([facility]) No family history on file. Social History [...] Chinchilla documented in this encounter [facility] 10-22-2023 Miscellaneous Notes Formattin g of this note might be different from the original. Please call us back to schedule an ultrasound next week. documented in this encounter [facility] 10-22-2023 Telephone encount er Note Please call us back to schedule an ultrasound next week. [facility] 10-22-2023 History of Presen t [...] hydration. documented in this encounter [facility] 10-16-2023 History of Presen t illness Narrative Headache/epigastric pain/blurry vision/swelling? No Cramping/contractions? No Abnormal vaginal discharge? No Spotting/vaginal bleeding? No Loss of fluid like your water may have broken? No Cats in the home? No Do you change the litter box? N/A Flu vaccine? No Genetic testing done this here or other office? Yes Have you been seen here at [facility] in a previous ? No Recent ER visits or hospitalizations? No Bring blood sugar log or meter with you today? (Please bring them with you for every visit at [facility]) N/A Traveled outside the country in [...] Yes Not In System Ref Prov vit no.[id number] acid ( VITAMIN) 27 mg iron- 800 [...] continue with routine care in your office [facility], the CDC, and other organizations representing maternal and public health professionals recommend that , , and lactating people and those considering receive the COVID-19 vaccination. Vaccination is the best method to reduce maternal and complications of SARS-CoV-2 infection. This document was created with [employer] technology. Though I make every effort to review the dictation as it is transcribed, on occasion the spoken word can be misinterpreted by the technology leading to inappropriate words, phrases, or sentences. This note is addressed to the requesting provider as a consultation for clinical guidance. Specific medical abbreviations are occasionally used and those are generally approved by the [place]?Board of?Obstetrics and?Gynecology?as well as?James flores abbreviations. The above plan of care was based solely on the diagnoses for which a consultation was requested. ?More frequent testing may be indicated based on her other medical/obstetrical conditions. The management of other or medical conditions is beyond the scope of requested consultation and will continue to be followed by the primary handkerchief maker or primary care provider. Thank you for allowing me to participate in her care. Please contact me if you have any concerns. documented in this encounter [facility] 03-16-2022 Note PROCEDURE: XR SHOULD ER RT 2V or > HISTORY: Impingement syndrome of right shoulder region ; acute right shoulder pain, no known injury COMPARISON: None. FINDINGS: BONES:No fracture, acute abnormality, or significant arthropathy. SOFT TISSUES:No visible soft tissue swelling. EFFUSION:None visible. OTHER: Negative. IMPRESSION: 1. Normal examination. Electronically authenticated by: GENI CABRAL Date: 2022-03-16 18:16 [facility] Evaluation note Diagnosis High-risk in second trimester- Primary History of oligohydramnios in prior , currently with other poor obstetric history 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 20 weeks gestation of [facility] Diagnosis History of oligohydramnios in prior , currently - Primary with other poor obstetric history [facility] Diagnosis Second trimester state, incidental with normal glucose tolerance test (GTT) Diabetes mellitus screening Screening for diabetes mellitus History of miscarriage Personal history of other genital system and obstetric disorders History of oligohydramnios documented in this encounter [facility]ructionsNot on filedocumented in this encounterPro[facility] SystemInstructionsNot on filedocumented in this encounterProSouthview [facility] SystemInstructionsNot on filedocumented in this encounterProSouthview Medical Center SystemInstructionsNot on filedocumented in this encounter[facility] Summary Purpose Family History No [...] oligohydramnios in prior , currently Procedures [facility] with or without consult Haseeb Nice MD [address] [facility] [place] [address] [facility]aternal Med [address] [place] [address] Referral ID Status Reason Start Date Expiration Date V isits Requested Visits Authorized [id number] Pending Review 10/17/2023 10/16/2024 1 1 Additional Source Comments INFORMATION SOURCE (unrecogn ized section and content) DATE CREATED AUTHOR 01/31/2023 [facility] DATE CREATED AUTHOR AUTHOR'S ORGANIZ ATION 10/20/2023 [facility] DATE CREATED AUTHOR AUTHOR'S ORGANIZ ATION 11/24/2023 [facility] DATE CREATED AUTHOR AUTHOR'S ORGANIZ ATION 02/11/2024 [facility] EPIC Reason for [...] BE BASED ON THE PRIMARY CLINICAL RECORDS. [employer] provides no warranty or guarantee of the accuracy or completeness of information in this document.
[2024-02-17 08:55] LABS: Hematocrit 34.1 % (36.0-48.0); Hemoglobin 11.2 g/dL (12.0-16.0); Mean Corpuscular HGB Conc 32.8 g/dL (29.9-35.2); Mean Corpuscular Hemoglobin 30.8 pg (26.7-34.0); Mean Corpuscular Volume 93.7 fL (81.0-99.0); Mean Platelet Volume 11.5 fL (9.5-13.5); Platelet Count 139 10^3/uL (150-450); Red Blood Count 3.64 10^6/uL (4.20-5.40); Red Cell Distribution Width 14.2 % (11.0-15.0); White Blood Count 6.9 10^3/uL (4.0-11.0)
[2024-02-17 09:05] LABS: Amphetamine Screen Urine NEGATIVE (NEGATIVE); Barbiturates Screen Urine NEGATIVE (NEGATIVE); Benzodiazepines Screen Urine NEGATIVE (NEGATIVE); Buprenorphine Screen Urine NEGATIVE (NEGATIVE); Cannabinoid Screen Urine POSITIVE (NEGATIVE); Cocaine Screen Urine NEGATIVE (NEGATIVE); Methadone Screen Urine NEGATIVE (NEGATIVE); Methamphetamines Screen Urine NEGATIVE (NEGATIVE); Opiate Screen Urine NEGATIVE (NEGATIVE); Oxycodone Screen Urine NEGATIVE (NEGATIVE); Phencyclidine Screen Urine NEGATIVE (NEGATIVE); Tricyclic Antidepressant Urine NEGATIVE (NEGATIVE)
--- NOTE | 2024-02-17 10:21 | PC.NURSE ---
0715: PATIENT AND SIGNIFICANT OTHER ARRIVE FOR IOL. TO ROOM 255 AND URINALYSIS OBTAINED AND SENT TO LAB. ORIENTED TO ROOM. 0740: INFORMED IOL WOULD BE DELAYED TO CENSUS AND ACUITY ON UNIT. INFORMED WOULD BE STARTED PROBABLE TIME OF 1030- 1100. ADMISSION COMPLETED AND SALINE STARTED AT 0810.
[2024-02-17] MEDS: OXYTOCIN/0.9 % SODIUM CHLORIDE 10 UNITS/500 ML PLAST..BAG 6 UNIT IV (11:09)
[2024-02-17] MEDS: 0.9 % SODIUM CHLORIDE 1,000 ML 125 ML IV ×2 (11:09→15:46)
[2024-02-17] MEDS: ROPIVACAINE HCL/PF 400 MG/200 ML PREMIX 6 MG EPIDURAL (15:45)
[2024-02-17] MEDS: FENTANYL CITRATE/PF 100 MCG/2 ML VIAL EPIDURAL ×2 (15:45→16:28)
[2024-02-17] MEDS: LIDOCAINE HCL 2% PF 100 MG/5 ML VIAL INJ (15:55)
[2024-02-17] MEDS: OXYTOCIN/0.9 % SODIUM CHLORIDE 20 UNITS/1,000 ML PLAST..BAG 125 UNIT IV (18:25)
--- NOTE | 2024-02-17 18:29 | PM.OBPRCVD ---
Procedure Intrapartal events: None Induction method: per pitocin protocol Delivery augmentation: rupture of membranes and pitocin Delivery monitor: external FHT and external uterine Route of delivery: Episiotomy Description: none L&D Laceration Description: none Delivery repair: Vicryl Estimated blood loss (mL): 200 Anesthesia type: Epidural Disposition: floor Infant Delivery date: 02/17/24 Gender: female presentation: vertex Placental delivery description: Spontaneous cord description: 3 Vessels
[2024-02-17] MEDS: IBUPROFEN 600 MG TABLET PO (21:37)
[2024-02-17] MEDS: GLYCERIN/WITCH HAZEL PADS 1 PAD TOPICAL (22:27)
[2024-02-17] MEDS: BENZOCAINE/MENTHOL 85 GRAM SPRAY BOTTLE 1 APPLIC TOPICAL (22:29)
[2024-02-18 05:48] LABS: Basophils Percent Auto 0.3 % (0.2-2.0); Eosinophils Percent Auto 0.4 % (0.9-7.0); Hematocrit 31.2 % (36.0-48.0); Hemoglobin 9.8 g/dL (12.0-16.0); Immature Granulocytes Abs Auto 0.02 10^3/uL (0.00-0.03); Immature Granulocytes Pct Auto 0.3 % (0.0-0.5); Lymphocytes Absolute Auto 1.5 10^3/uL (1.2-3.8); Lymphocytes Percent Auto 19.1 % (20.5-60.0); Mean Corpuscular HGB Conc 31.4 g/dL (29.9-35.2); Mean Corpuscular Hemoglobin 30.2 pg (26.7-34.0); Mean Platelet Volume 10.9 fL (9.5-13.5); Monocytes Absolute Auto 0.6 10^3/uL (0.3-0.8); Monocytes Percent Auto 7.9 % (1.7-12.0); Neutrophils Absolute Auto 5.7 10^3/uL (1.4-6.5); Platelet Count 118 10^3/uL (150-450); Red Blood Count 3.25 10^6/uL (4.20-5.40); Red Cell Distribution Width 13.9 % (11.0-15.0); White Blood Count 7.9 10^3/uL (4.0-11.0)
--- NOTE | 2024-02-18 08:12 | PM.OBPN ---
OB - PN: Subj Subjective Patient comments: no complaints [place] status: doing well Exam Constitutional Vital Signs, click to edit/add: Last Vital Signs Temp 96.6 F L 02/17/24 16:29 Pulse 86 02/17/24 20:16 Resp 16 02/17/24 20:25 BP 127/70 02/17/24 20:16 O2 Del Method Room Air 02/17/24 20:25 Documenting provider has reviewed patient's vital signs: yes Common normals: no apparent distress and oriented x3 General appearance: cooperative Orientation/consciousness: Yes awake, Yes oriented to person, Yes oriented to place and Yes oriented to time HENMT Common normals: normocephalic Eye Common normals: EOMs intact bilaterally General eye: normal appearance of both eyes Neck & C-Spine Common normals: full ROM General: normal visual inspection Lymph Lymphatic: no lymphadenopathy noted Chest Common normals: inspection of chest normal Respiratory Common normals: normal respiratory effort Effort & inspection: able to speak in complete sentences Cardio Common normals: regular rate and regular rhythm Rate: regular rate Rhythm: regular rhythm GI Common normals: Normal to inspection, nondistended, normoactive bowel sounds present, soft to palpation and non-tender Inspection: normal to inspection Palpation: soft Common normals: no CVA tenderness Back & Pelvis Common normals: no CVA tenderness Extremity Common normals: normal to inspection Neuro Common normals: oriented x3 Sensorium/orientation: awake, oriented to person, oriented to place and oriented to time Psych Common normals: mental status grossly normal Results Labs Labs: Short CBC 02/17/24 02/18/24 Range/Units 08:10 05:41 WBC 6.9 7.9 (4.0-11.0) 10^3/uL Hgb 11.2 L 9.8 L (12.0-16.0) g/dL Hct 34.1 L 31.2 L (36.0-48.0) % Plt Count 139 L 118 L (150-450) 10^3/uL OB - PN: A/P Plan - Vaginal Delivery day: 1 Plan: routine care Time Spent with Patient Time: Total time spent is greater than 50% in coordination of care (as documented) at patient's floor/unit and/or counseling patient: Total time spent with greater than 50% in coordination of care (as documented) at patient's floor/unit and/or counseling patient: less than 15 minutes
[2024-02-18 09:52] VITALS: BP 115/53; PULSE 78
--- NOTE | 2024-02-18 13:12 | SWNOTE1 ---
SW consulted due to pt being THC positive on admission. SW met with pt and father of baby in room to discuss THC drug screen. Pt has 2 other children at home, a 9 year old daughter and 11 year old son. Pt and father of baby have everything they need at home for baby. Pt voiced they have good support at home. Pt plans on staying home with baby. SW did ask pt about THC use. Pt voiced she did gummies randomly as she could not eat. She does not have any plans on continuing gummies once home. Pt does not have her medical marijuana card. Pt and father of baby are appropriate with baby. At this time no other concerns. SW notified pt and father of baby that SW is mandated reported and report will be made to [facility] CPS. They voiced understanding.
--- NOTE | 2024-02-18 13:22 | SWNOTE1 ---
Report called to [facility] CPS, report given to Ericka. AMANDA filled out HIPAA form and sent to [place].
[2024-02-18] MEDS: IBUPROFEN 600 MG TABLET PO (14:17)
[2024-02-18 16:22] VITALS: BP 115/56; PULSE 66
[2024-02-21 10:12] LABS: Cannabinoid Negative (Cutoff=10)
== END 2024-02-18 20:15 | disposition home or self-care (01) | DRG 560 ==
PROVIDERS: Admitting Provider Obstetrics & Gynecology; Visit Provider Obstetrics & Gynecology
DX: O99.284 Endocrine, nutritional and metabolic diseases complicating childbirth (principal); Z3A.38 38 weeks gestation of pregnancy; Z37.0 Single live birth; Z87.891 Personal history of nicotine dependence; E03.9 Hypothyroidism, unspecified; O99.324 Drug use complicating childbirth; F12.90 Cannabis use, unspecified, uncomplicated; O99.344 Other mental disorders complicating childbirth; F41.1 Generalized anxiety disorder
CPT/HCPCS: 36415; 59050; 59410; 80307; 80349; 85025; 85027; 86850; 86900; 86901; 96374; 96376

== ENCOUNTER 2025-05-25 11:59 | Outpatient (REF) | payer OTHER, SELFPAY ==
--- OUTSIDE RECORDS SUMMARY | 2025-05-14 10:00 | XMS_ITS | Encounter Summary ---
Author Organization [facility] Address [address] [place] [address] Care Team Providers Care River Boat Captain Name Role Phone Marco Bales DO Unavailable Encounter Details Date Type Department Care Team (Latest Contact Info) Description 05/14/2025 10:00 AM EDT Ancillary Procedure [facility] [address] [place] [address] Missed menses; Positive urine test ([facility]) Social History Tobacco Use Types Packs/Day Years Used Date Smoking Tobacco: Never Assessed Estimated Date of Delivery Comme nts Yes 10/23/2025 Based on Ultraso und Sex and Gender Information Value Date Recorded Sex Assigned at Female 08/07/2023 4:28 PM EDT Legal Sex Female 6:42 PM EDT Gender Identity Female 08/07/2023 4:28 PM EDT Sexual Orientation Straight 08/07/2023 4: 28 PM EDT documented as of this encounter Plan of Treatment Upcoming Encounters Date Type Department Care Team (Late st Contact Info) Description 06/09/2025 11:00 AM EDT Ancillary Procedure [facility] [address] [place] [address] 06/22/2025 9:50 AM EDT Routine [facility] [address] [place] [address] Marco Bales DO [address] [place] [address] (work) documented as of this encounter Goals Goal Patient Goal Type Associated Problems Recent Progress Patient-Stated? Author Reminders Care Plan OB Reminders No Open Scheduling, Background documented as of this encounter Procedures Procedure Name Priority Date/Time Associated Diagnosis Comments US OB LIMITED 1+ FETUSES Routine 05/14/2025 10:34 AM EDT Missed menses Positive urine test ([facility] documented in this encounter Results * US OB limited 1+ fetuses (05/14/2025 10:34 AM EDT) Anatomical Region Laterality Modality Body Ultrasound 05/18/2025 12:3 1 PM EDT Impressions 05/18/2025 1:11 PM EDT Single, live intrauterine , current sonographic age of 16 weeks and 6 days, with an estimated date of delivery of October 23, 2025 TRANSCRIBED BY: ELECTRONICALLY SIGNED BY: Gil Godwin MD Narrative 05/18/2025 1:11 PM EDT FINDINGS: No prior examinations. A single, live intrauterine is present with normal cardiac rate of 148 beats per minute. Normal activity and amniotic fluid volume. Morphology is grossly normal. Visualized cervix appears closed. Majority of the placenta appears to be developing anteriorly, association with the cervical os not clearly delineated on this examination. The current sonographic age is 16 weeks and 6 days, based on the following measurements: BPD 3.6cm ( 17weeks, 0days) Head Circumference 13.2cm (16 weeks, 5 days) Abdominal Circumference 11.6cm ( 17 weeks, 2 days) Femur Length 2.2cm ( 16 weeks,4 days) Presentation Breech Procedure Note Gil Godwin MD - 05/18/2025 FINDINGS: No prior examinations. A single, live intrauterine is present with normal cardiacrate of 148 beats per minute. Normal activity and amniotic fluidvolume. Morphology is grossly normal. Visualized cervix appears closed.Majority of the placenta appears to be developing anteriorly, associationwith the cervical os not clearly delineated on this examination. Thecurrent sonographic age is 16 weeks and 6 days, based on the followingmeasurements: BPD 3.6cm ( 17weeks, 0days) Head Circumference 13.2cm (16 weeks, 5 days) Abdominal Circumference 11.6cm ( 17 weeks, 2 days) Femur Length 2.2cm ( 16 weeks,4 days) Presentation Breech IMPRESSION: Single, live intrauterine , current sonographic age of 16 weeksand 6 days, with an estimated date of delivery of October 23, 2025 TRANSCRIBED BY: ELECTRONICALLY SIGNED BY: Gil Godwin MD us Marco Bales DO IM OB US PROCEDURES Final Resul t documented in this encounter Visit Diagnoses Diagnosis Missed menses Positive urine test ([facility]) documented in this encounter Additional Health Concerns Active Problems Noted Date Diagnosed Date OB Reminders 07/11/2023 documented as of this encounter Care Teams River Boat Captain Relationship Specialty Start Date End Date Marco Bales DO [address] [place] [address] PCP - [facility] 01/13/24 documented as of this encounter
--- OUTSIDE RECORDS SUMMARY | 2025-05-14 10:30 | XMS_ITS | Encounter Summary ---
Author Organization [facility] Address [address] [place] [address] Care Team Providers Care Orthophotography Technician Name Role Phone Marco Bales DO Unavailable Reason for Visit * Reason Comments Amenorrhea Encounter Details Date Type Department Care Team (Late Contact Info) Description 05/14/2025 10:30 AM EDT Initial [facility] [address] [place] [address] [place] [phone] GA: 16w6d Social History Tobacco Use Types Packs/Day Years [...] PM EDT documented as of this encounter Last Filed Vital Signs Vital Sign Reading Time Taken Comments Blood Pressure - - Pulse - - Temperature - - Respiratory Rate - - Oxygen Saturation - - Inhaled Oxygen Concentration - - Weight 61.2 kg (135 lb) 05/14/2025 11:07 AM EDT Height - - Body Mass Index 21.79 04/02/2024 11:40 AM EDT documented in this encounter Progress Notes * Sana Rogers LPN - 05/14/2025 10:30 AM EDT Reason for Appointment: Patient ID: Екатерина Sutherland is a 29 y.o. female who presents for Amenorrhea Patient presents today for a Nurse OB Intake appointment. Patient is 16w6d with a Estimated Date ofDelivery: 10/23/25 OB History Para Term AB Living 7 4 3 1 2 3 SAB IAB Ectopic Multiple Live Births 2 4 # Outcome Date GA Lbr Sean/2nd Weight Sex Type Anes PTL Lv 7 Current 6 Term 02/17/24 38w0d 6 lb 7 oz F Vag-Spont ZI 5 11/2016 22w0d F Vag-Spont ND Complications: Oligohydramnios ([facility]) 4 Term 10/25/14 38w0d 6 lb 1 oz F Vag-Spont ZI 3 Term 08/14/12 38w0d 7 lb 9 oz M Vag-Spont ZI 2 SAB 1 SAB Current Medications: has a current medication list which includes the following prescription(s): levothyroxine, ondansetron odt, and m-saurabh plus. Medical History: Active Ambulatory Problems Diagnosis Date Noted Thyroid disease 12/16/2023 History of oligohydramnios 12/16/2023 Anxiety, generalized 12/16/2023 Rectal bleeding 04/09/2024 Resolved Ambulatory Problems Diagnosis Date Noted No Resolved Ambulatory Problems Past Medical History: Diagnosis Date Missed menses Non-compliant patient Smoker No family history on file. Social History Tobacco Use Smoking status: Not on file Smokeless tobacco: Not on file Substance Use Topics Alcohol use: Not on file Drug use: Not on file Past Surgical History: Procedure Laterality Date APPENDECTOMY 2007 No Known Allergies Vitals: Estimated body mass index is 24.37 kg/m?? as calculated from the following: Height as of 04/02/24: 5' 6 . Weight as of 04/02/24: 151 lb. BP: No LMP recorded. Patient is . Assessment/Plan Diagnoses and all orders for this visit: Missed menses - Type and screen; Future - ABO/Rh; Future - CBC and differential - Hemoglobin A1c - RPR - Rubella antibody, IgG - Hepatitis B surface antigen - Hepatitis C antibody - HIV-1 and HIV-2 antibodies - Urine culture - POCT , urine manually resulted - POCT urinalysis dipstick manually resulted Positive urine test ([facility]) , unspecified gestational age ([facility]) - Type and screen; Future - ABO/Rh; Future - CBC and differential - Hemoglobin A1c - RPR - Rubella antibody, IgG - Hepatitis B surface antigen - Hepatitis C antibody - HIV-1 and HIV-2 antibodies - Rapid drug screen, urine; Future Encounter for supervision of normal first in first trimester ([facility]) - Rapid drug screen, urine; Future Nausea and vomiting in ([facility]) - ondansetron ODT (Zofran-ODT) 4 MG disintegrating tablet; Take 1 tablet (4 mg) by mouth every 6 (six) hours if needed for nausea or vomiting Nurse Note: Follow Up: Patient is to have labs drawn at directed and return to office for initial OB appointment with provider. Patient may call office as needed with any concerns or questions. Nurse Visit Completed by: Sana Rogers LPN documented in this encounter Plan of Treatment Upcoming Encounters Date Type Department Care Team (Late st Contact Info) Description 06/09/2025 11:00 AM EDT Ancillary Procedure [facility] [address] [place] [phone] 06/22/2025 9:50 AM EDT Routine [facility] [address] [place] [address] Marco Bales DO [address] [place] [address] Scheduled Orders Name Type Priority Associated Diagnoses Orde r Schedule Type and screen Lab Routine Missed menses , unspecified gestational age ([facility]) Expected: 05/14/2025 (Approximate), Expires: 05/14/2026 ABO/Rh Lab Routine Missed menses , unspecified gestational age ([facility]) Expected: 05/14/2025 (Approximate), Expires: 05/14/2026 CBC and differential Lab Routine Missed menses , unspecified gestational age ([facility]) Ordered: 05/14/2025 Hemoglobin A1c Lab Routine Missed menses , unspecified gestational age ([facility]) Ordered: 05/14/2025 RPR Lab Routine Missed menses , unspecified gestational age ([facility]) Ordered: 05/14/2025 Rubella antibody, IgG Lab Routine Missed menses , unspecified gestational age ([facility]) Ordered: 05/14/2025 Hepatitis B surface antigen Lab Routine Missed menses , unspecified gestational age ([facility]) Ordered: 05/14/2025 Hepatitis C antibody Lab Routine Missed menses , unspecified gestational age ([facility]) Ordered: 05/14/2025 HIV-1 and HIV-2 antibodies Lab Routine Missed menses , unspecified gestational age ([facility]) Ordered: 05/14/2025 Urine culture Microbiology Routine Missed menses Ordered: 05/14/2025 Rapid drug screen, urine Lab Routine , unspecified gestational age ([facility]) Encounter for supervision of normal first in first trimester ([facility]) Expected: 05/14/2025 (Approximate), Expires: 05/14/2026 documented as of this encounter Goals Goal Patient Goal Type Associated Problems Recent Progress Patient-Stated? Author Reminders Care Plan OB Reminders No Open Scheduling, Background documented as of this encounter Procedures Procedure Name Priority Date/Time Associated Diagnosis Comments POCT URINALYSIS DIPSTICK Routine 05/14/2025 11:04 AM EDT Missed menses POCT , URINE Routine 05/14/2025 11:03 AM EDT Missed menses documented in this encounter Results * (ABNORMAL) POCT urinalysis dipstick manually resulted (05/14/2025 11:04 AM EDT) Color, UA Yellow Clarity, UA Clear Glucose, UA Trace Negative - 1999(110) ++++ mg/dL Bilirubin, UA Negative Negative - 4(70) +++ mg/dL Ketones, UA Negative Negative - 160(16) ++++ mg/dL Spec Grav, UA 1.010 1 - 1.03 Blood, UA Negative Negative - 50 Felice/mcL pH, UA 7.5 5 - 9 Protein, UA Trace Negative - 1999(20) ++++ mg/dL Urobilinogen, UA 1.0 0.2 - 12 mg/dL Leukocytes, UA Positive Negative - 500+++ Regina/mcL Nitrite, UA Negative Negative - Positive Urine 05/14/2025 11:0 4 AM EDT Marco Bales DO POINT OF CARE TEST ENTER/EDIT OR DERABLES Final Result * (ABNORMAL) POCT , urine manually resulted (05/14/2025 11:03 AM EDT) Preg Test, Ur Positive Negative Urine 05/14/2025 11:0 3 AM EDT Marco Bales DO POINT OF CARE TEST ENTER/EDIT OR DERABLES Final Result documented in this encounter Visit Diagnoses Diagnosis Missed menses Positive urine test ([facility]) , unspecified gestational age ([facility]) Encounter for supervision of normal first in first trimester ([facility]) Nausea and vomiting in ([facility]) Unspecified vomiting of , unspecified as to episode of care documented in this encounter Additional Health Concerns Active Problems Noted Date Diagnosed Date OB Reminders 07/11/2023 documented as of this encounter Care Teams Orthophotography Technician Relationship Specialty Start Date End Date Marco Bales DO [address] [place] [address] [place] [address] PCP - [facility] 01/13/24 documented as of this encounter
--- OUTSIDE RECORDS SUMMARY | 2025-05-25 09:40 | XMS_ITS | Encounter Summary ---
Author Organization [facility] Address [address] [place] [address] Care Team Providers Care Saw Offbearer Name Role Phone Marco Bales DO Unavailable Reason for Visit * Reason Comments Routine Visit Well Women Visit STI Screening Encounter Details Date Type Department Care Team (Latest Contact Info) Description 05/25/2025 9:40 AM EDT Routine [facility] [address] [facility] [place] [phone] Marco Bales DO [address] [place], [facility] 18 weeks gestation of ([facility]); Second trimester ([facility]); Well woman exam with routine gynecological exam; Screening, , for anatomic survey ([facility]); Exposure to STD; Vaginal discharge; Thyroid disease Social History Tobacco Use Types Packs/Day Years [...] Sign Reading Time Taken Comments Blood Pressure 100/60 05/25/2025 10:15 AM EDT Pulse - - Temperature - - Respiratory Rate - - Oxygen Saturation - - Inhaled Oxygen Concentration - - Weight 63 kg (138 lb 12.8 oz) 05/25/2025 10:15 A M EDT Height - - Body Mass Index 22.4 04/02/2024 11:40 AM EDT documented in this encounter Plan of Treatment Upcoming Encounters Date Type Department Care Team (Late st Contact Info) Description 06/09/2025 11:00 AM EDT Ancillary Procedure [facility] [address] [place] [id number] 06/22/2025 9:50 AM EDT Routine [facility] [address] [facility] [place] [phone] Marco Bales DO [address] [place], [place] [id number] Scheduled Orders Name Type Priority Associated Diagnoses Orde r Schedule SURESWAB(R) ADVANCED VAGINITIS PLUS, TMA Pathology and Cytology Routine Vaginal discharge Ordered: 05/25/2025 CHLAMYDIA TRACHOMATIS (GENITO/STI) Lab Routine Exposure to STD Ordered: 05/25/2025 Neisseria gonorrhea DNA probe, direct Lab Routine Exposure to STD Ordered: 05/25/2025 Pap Smear Pathology and Cytology Routine Well woman exam with routine gynecological exam Ordered: 05/25/2025 HPV DNA probe, amplified Microbiology Routine Well woman exam with routine gynecological exam Ordered: 05/25/2025 US OB 14+ weeks anatomy scan Imaging Routine Screening, , for anatomic survey ([facility]) Expected: 05/25/2025, Expires: 08/25/2025 Alpha fetoprotein, maternal Lab Routine 18 weeks gestation of ([facility]) Second trimester ([facility]) Expected: 05/25/2025 (Approximate), Expires: 07/25/2025 TSH Lab Routine Thyroid disease Expected: 05/25/2025 (Approximate), Expires: 05/25/2026 documented as of this encounter Goals Goal Patient Goal Type Associated Problems Recent Progress Patient-Stated? Author Reminders Care Plan OB Reminders No Open Scheduling, Background documented as of this encounter Procedures Procedure Name Priority Date/Time Associated Diagnosis Comments POCT URINALYSIS DIPSTICK Routine 05/25/2025 10:26 AM EDT 18 weeks gestation of ([facility]) Second trimester ([facility]) documented in this encounter Results * (ABNORMAL) POCT urinalysis dipstick manually resulted (05/25/2025 10:26 AM EDT) Color, UA Yellow Clarity, UA Clear Glucose, UA Negative Negative - 2000(110) ++++ mg/dL Bilirubin, UA Negative Negative - 4(70) +++ mg/dL Ketones, UA Negative Negative - 160(16) ++++ mg/dL Spec Grav, UA 1.010 1 - 1.03 Blood, UA Negative Negative - 50 Felice/mcL pH, UA 8.5 5 - 9 Protein, UA Positive Negative - 2000(20) ++++ mg/dL Urobilinogen, UA 1.0 0.2 - 12 mg/dL Leukocytes, UA Positive Negative - 500+++ Regina/mcL Nitrite, UA Negative Negative - Positive Urine 05/25/2025 10:2 6 AM EDT Marco Bales DO POINT OF CARE TEST ENTER/EDIT OR DERABLES Final Result documented in this encounter Visit Diagnoses Diagnosis 18 weeks gestation of ([facility]) Second trimester ([facility]) state, incidental Well woman exam with routine gynecological exam Routine gynecological examination Screening, , for anatomic survey ([facility]) Encounter for anatomic survey Exposure to STD Vaginal discharge Leukorrhea, not specified as infective Thyroid disease Unspecified disorder of thyroid documented in this encounter Additional Health Concerns Active Problems Noted Date Diagnosed Date OB Reminders 07/11/2023 documented as of this encounter Care Teams Saw Offbearer Relationship Specialty Start Date End Date Marco Bales DO [address] [place], [place] [address] [address] PCP - [facility] 01/13/24 documented as of this encounter
--- OUTSIDE RECORDS SUMMARY | 2025-05-25 12:04 | XMS_ITS | Encounter Summary ---
Author Organization [facility] Address [address] [place] [address] Care Team Providers Care Stringer Up Soldering Machine Name Role Phone Bria Bales DO Unavailable Encounter Details Date Type Department Care Team (Late st Contact Info) Description 01/13/2024 Clinisync Result Encounter NOMS External Department Unsolicited Bria Bales, DO [address] [place], [facility]11 Social History Tobacco Use Types Packs/Day Years Used Date Smoking Tobacco: Never Assessed Comments Yes Sex and Gender Information Value Date Recorded [...] Procedure [facility] Shawn [facility]ET[place] [address] [place] [id number] 06/22/2025 9:50 AM EDT Routine [facility] Shawn [facility]ET[facility] [address] [place] [address] Bria Bales DO [address] [place], [place] [phone] documented as of this encounter Goals Goal Patient Goal Type Associated Problems Recent Progress Patient-Stated? Author Reminders Care Plan OB Reminders No Open Scheduling, Background documented as of this encounter Procedures Procedure Name Priority Date/Time Associated Diagnosis Comments US OB BPP W NON-STRESS 01/13/2024 2:52 PM EDT documented in this encounter Results * US OB BPP W NON-STRESS (01/13/2024 2:52 PM EDT) Anatomical Region Laterality Modality Other 01/13/2024 2:52 PM EDT Narrative 01/13/2024 2:55 [place] [address] Ultrasound Report Signed Patient: JERAMY SWEENEY MR#: [id number] : 1995 Acct:[id number] Age/Sex: 28 / F ADM Date: 01/13/24 Loc: [facility] 250-[address]: Bria Bales D.O. Ordering Physician: Bria Bales D.O. Date of Service: 01/13/24 Procedure(s): US OB BPP w non-stress Accession Number(s): [id number] cc: Bria Bales D.O.; Physician,Non-Staff M.DaTmmie The [place] [id number] Patient Name: JERAMY SWEENEY MRN: [id number] date: 1995 Sex: F Assigned Patient Location: [facility] Current Patient Location: [facility] Accession/Order Number: [id number] Exam Date: 01/13/2024 14:07 Report Date: 01/13/2024 14:52 At the request of: BRIA BALES Procedure: US OB BPP w non-stress EXAMINATION: US OB BPP w non-stress HISTORY: HISTORY OF MISCARRIAGE Z87.59 COMPARISON: Ultrasound OB biophysical 01/06/2024 TECHNIQUE: Ultrasound biophysical profile was performed in the radiology department. BREATHING MOVEMENTS: 2.0 GROSS BODY MOVEMENTS: 2.0 TONE: 2.0 QUALITATIVE AMNIOTIC FLUID VOLUME: 2.0 PRESENTATION: CEPHALIC HEART RATE: 139.9 bpm bpm. AMNIOTIC FLUID VOLUME: 23.4 cm GESTATIONAL AGE: 33 weeks 0 days CONCLUSION: 1. Total biophysical profile score 8.0. 2. Normal amniotic fluid volume, but approaching upper limits of normal. Electronically authenticated by: EFREN VENTURA Date: 01/13/2024 14:52 Dictated By: Efren Ventura M.D. Signed By: 01/13/24 1455 DD/ 1452 TD/TT: Senior Instructor: Procedure Note Radiology, Radiologist, MD - 01/16/2024 [place] [address] Ultrasound Report Signed Patient: JERAMY SWEENEY RMR#: [id number] : 1995Acct:[id number] Age/Sex: 28 / FADM Date: 01/13/24 Loc: [facility] 250-[address]: Bria Bales D.O. Ordering Physician: Bria Bales D.O. Date of Service: 01/13/24 Procedure(s): US OB BPP w non-stress Accession Number(s): [id number] cc: Bria Bales D.O.; Physician,Non-Staff Lalit [facility] [place] [id number] Patient Name: JERAMY SWEENEY MRN: [id number] date: 1995 Sex: F Assigned Patient Location: [facility] Current Patient Location: [facility] Accession/Order Number: [id number] Exam Date: 01/13/2024 14:07 Report Date: 01/13/2024 14:52 At the request of: BRIA BALES Procedure: US OB BPP w non-stress EXAMINATION: US OB BPP w non-stress HISTORY: HISTORY OF MISCARRIAGE Z87.59 COMPARISON: Ultrasound OB biophysical 01/06/2024 TECHNIQUE: Ultrasound biophysical profile was performed in the radiology department. BREATHING MOVEMENTS: 2.0 GROSS BODY MOVEMENTS: 2.0 TONE: 2.0 QUALITATIVE AMNIOTIC FLUID VOLUME: 2.0 PRESENTATION: CEPHALIC HEART RATE: 139.9 bpm bpm. AMNIOTIC FLUID VOLUME: 23.4 cm GESTATIONAL AGE: 33 weeks 0 days CONCLUSION: 1. Total biophysical profile score 8.0. 2. Normal amniotic fluid volume, but approaching upper limits of normal. Electronically authenticated by: EFREN VENTURA Date: 01/13/2024 14:52 Dictated By: Efren Ventura M.D. Signed By:01/13/24 1455 DD/ 1452 TD/TT: Senior Instructor: Bria Bales DO [facility] Final Result documented in this encounter Visit Diagnoses Not on filedocumented in this encounter Additional Health Concerns Active Problems Noted Date Diagnosed Date OB Reminders 07/11/2023 documented as of this encounter Care Teams Stringer Up Soldering Machine Relationship Specialty Start Date End Date Bria Bales DO [address] [place], [place] [address]albert [place] [address] PCP - [facility] 01/13/24 documented as of this encounter
--- OUTSIDE RECORDS SUMMARY | 2025-05-25 12:04 | XMS_ITS | Encounter Summary ---
Author Organization [facility] Address [address] [place] [address] Care Team Providers Care Rn Urology Name Role Phone Marco Bales DO Unavailable Encounter Details Date Type Department Care Team (Late st Contact Info) Description 10/09/2023 Abstract [facility] [address] [place] [address] Marco Bales DO [address], [facility]11 Social History Tobacco Use Types Packs/Day Years [...] Description 06/09/2025 11:00 AM EDT Ancillary Procedure [facility] [address] [place] [address] 06/22/2025 9:50 AM EDT Routine [facility] [address] [place] [address] Marco Bales DO [address], [facility]11 documented as of this encounter Goals Goal Patient Goal Type Associated Problems Recent Progress Patient-Stated? Author Reminders Care Plan OB Reminders No Open Scheduling, Background documented as of this encounter Visit Diagnoses Not on filedocumented in this encounter Additional Health Concerns Active Problems Noted Date Diagnosed Date OB Reminders 07/11/2023 documented as of this encounter Care Teams Rn Urology Relationship Specialty Start Date End Date Marco Bales DO [address] [place] [address] [place] [address] PCP - [facility] 01/13/24 documented as of this encounter
--- OUTSIDE RECORDS SUMMARY | 2025-05-25 12:04 | XMS_ITS | Encounter Summary ---
Author Organization [facility] s [employer] Address [id number] [address] [place] [address] Care Team Providers Care Parts Sales Representative Name Role Phone No Pcp, No Pcp Primary Care Provider Unavailabl e Encounter Details Date Type Department Care Team (Late st Contact Info) Description 10/15/2023 Orders Only Maternal- Medicine at [facility] [address] [place] [address] Ref Prov, [place] [address] Social History Tobacco Use Types Packs/Day Years Used Date Smoking Tobacco: Never Assessed Childcare Answer Date Recorded Childcare Unknown 03/23/2019 Employment Answer Date Recorded Employment Unknown 03/23/2019 Hunger Screening Answer Date Recorded Within the past 12 months we worried whether our food would run out before we got money to buy more. Never True 10/16/2023 Within the past 12 months th e food we bought just didn't last and we didn't have money to get more. Never True 10/16/2023 Comments Yes Sex and Gender Information Value Date Recorded Sex Assigned at Not on file Legal Sex Female 12:11 PM EDT Gender Identity Not on file Sexual Orientation Not on file documented as of this encounter Plan of Treatment Not on file documented as of this encounter Procedures Procedure Name Priority Date/Time Associated Diagnosis Comments US PREG LMTD 1 OR MORE FETUS Routine 10/15/2023 3:34 PM EST FREE CELL DNA (NON-[facility] SEND OUT) Routine 08/22/2023 2:55 PM EST TSH Routine 08/08/2023 4:00 PM EDT documented in this encounter Results * Ultrasound limited 1 or more fetus (10/15/2023 3:34 PM EST) Anatomical Region Laterality Modality OB-PRICING CONSULTANT Ultrasound us Not In System Ref Prov IMG US ORDERABLES Final R esult * Free Cell DNA (08/22/2023 2:55 PM EST) us Not In System Ref Prov LAB BLOOD ORDERABLES [place]og[place] l Result Performing Organization Address City/[facility] Co de Phone Number MANUALLY TRANSCRIBED RESULTS * TSH (08/08/2023 4:00 PM EDT) us Not In System Ref Prov LAB BLOOD ORDERABLES Mahogany l Result Performing Organization Address [facility] Co de Phone Number MANUALLY TRANSCRIBED RESULTS documented in this encounter Visit Diagnoses Not on filedocumented in this encounter Care Teams Parts Sales Representative Relationship Specialty Start Date End Date No Pcp, [place] [address] PCP - General Family Medicine 10/29/23 documented as of this encounter
--- OUTSIDE RECORDS SUMMARY | 2025-05-25 12:04 | XMS_ITS | Clinical Summary ---
Author Organization [facility] Address [address] [place] [address] Care Team Providers Care Central Supply Tech Name Role Phone Marco Bales DO Unavailable Allergies No known active allergies Medications Vit-Fe Fumarate-FA (M-Sindi Plus) 27-1 MG tabletIndications: Missed menses TAKE 1 TABLET BY MOUTH EVERY DAY IN THE MORNING 30 tablet 11 5 Active levothyroxine (Synthroid, Levoxyl) 100 MCG tabletIndications: Thyroid disease TAKE 1 TABLET (100 MCG) BY MOUTH 1 (ONE) TIME EACH DAY AT THE SAME TIME 30 tablet 5 5 Active ondansetron ODT (Zofran-ODT) 4 MG disintegrating tabletIndications: Nausea and vomiting in ([facility]) Take 1 tablet (4 mg) by mouth every 6 (six) hours if needed for nausea or vomiting 30 tablet 2 5 025 Active norethindrone (Micronor) 0.35 MG tabletIndications: Uses control Take 1 tablet (0.35 mg) by mouth Daily 28 tablet 11 4 025 Discontin ued(Other ) omeprazole (PriLOSEC) [address] capsuleIndications :Heartburn TAKE 2 CAPSULES (40 MG) BY MOUTH IN THE MORNING. TAKE BEFORE MEALS. DO NOT CRUSH OR CHEW.. 180 capsule 3 4 025 Discontin ued(Other ) Active Problems Problem Noted Date Diagnosed Date Rectal bleeding 04/09/2024 Thyroid disease 12/16/2023 History of oligohydramnios 12/16/2023 Anxiety, generalized 12/16/2023 Estimated Date of Delivery Comme nts Yes 10/23/2025 Based on Ultraso und Encounters Date Type Department Care Team Description 05/25/2025 9:40 AM ED[place] [address] Marco Bales DO 18 weeks gestation of ([facility]); Second trimester ([facility]); Well woman exam with routine gynecological exam; Screening, , for anatomic survey ([facility]); Exposure to STD; Vaginal discharge; Thyroid disease 05/25/2025 [place] [address] Marco Bales DO 05/14/2025 10:30 AM [place] [address] GA: [id number] 05/14/2025 10:00 AM EDT Ancillary [place] [address] Missed menses; Positive urine test ([facility]) 04/15/2025 [place] [address] Marco Bales DO Thyroid disease from Last 3 Months Family History Relation Name Status Comments Daughter Alive Mother Alive Son Alive Social History Tobacco Use Types Packs/Day Years Used Date Smoking Tobacco: Never Assessed Estimated Date of Delivery Comme nts Yes 10/23/2025 Based on Ultraso und Sex and Gender Information Value Date Recorded Sex Assigned at Female 08/07/2023 4:28 PM EDT Legal Sex Female 6:42 PM EDT Gender Identity Female 08/07/2023 4:28 PM EDT Sexual Orientation Straight 08/07/2023 4: 28 PM EDT Last Filed Vital Signs Vital Sign Reading Time Taken Comments Blood Pressure 100/60 05/25/2025 10:15 AM EDT Pulse - - Temperature - - Respiratory Rate - - Oxygen Saturation - - Inhaled Oxygen Concentration - - Weight 63 kg (138 lb 12.8 oz) 05/25/2025 10:15 A M EDT Height 167.6 cm (5' 6 ) 04/02/2024 11:40 AM EDT Body Mass Index 22.4 04/02/2024 11:40 AM EDT Plan of Treatment Upcoming Encounters Date Type Department Care Team (Late st Contact Info) Description 06/09/2025 11:00 AM EDT Ancillary Procedure [facility] [address] [place] [address] 06/22/2025 9:50 AM EDT Routine [facility] [address] [place] [phone] Marco Bales DO [address] [facility] [place] [address] Health Maintenance Due Date Last Done Comments Influenza Vaccine (#1) 2025 Cervical Cancer Screening 09/09/2028 HPV/Cotest 09/09/2028 Pap Smear 09/09/2028 09/09/2023 Goals Goal Patient Goal Type Associated Problems Recent Progress Patient-Stated? Author Reminders Care Plan OB Reminders No Open Scheduling, Background Procedures Procedure Name Priority Date/Time Associated Diagnosis Comments POCT URINALYSIS DIPSTICK Routine 05/25/2025 10:26 AM EDT 18 weeks gestation of ([facility]) Second trimester ([facility]) POCT URINALYSIS DIPSTICK Routine 05/14/2025 11:04 AM EDT Missed menses POCT , URINE Routine 05/14/2025 11:03 AM EDT Missed menses US OB LIMITED 1+ FETUSES Routine 05/14/2025 10:34 AM EDT Missed menses Positive urine test ([facility]) PAP SMEAR Routine 09/09/2023 12:00 AM EST from Last 3 Months or Most Recently Relevant to Health Maintenance Results * (ABNORMAL) POCT urinalysis dipstick manually resulted (05/25/2025 10:26 AM EDT) Only the most recent of2 resultswithin the time period is included. Color, UA Yellow Clarity, UA Clear Glucose, [...] Urine 05/25/2025 10:2 6 AM EDT Marco Nii DO POINT OF CARE TEST ENTER/EDIT OR DERABLES Final Result * (ABNORMAL) POCT , urine manually resulted (05/14/2025 11:03 AM EDT) Preg Test, Ur Positive Negative Urine 05/14/2025 11:0 3 AM EDT Marco Nii DO POINT OF CARE TEST ENTER/EDIT OR DERABLES Final Result * US OB limited 1+ fetuses (05/14/2025 [...] Gil Godwin MD us Marco Bales DO IMG OB US PROCEDURES Final Resul t * Pap Smear (09/09/2023 12:00 AM EST) Swab Cervical swab / Unknown us Marco Nii DO LAB CYTOLOGY ORDERABLES Final Re sult EXTERNAL LAB from Last 3 Months or Most Recently Relevant to Health Maintenance Additional Health Concerns Active Problems Noted Date Diagnosed Date OB Reminders 07/11/2023 Insurance [employer] Care Teams Central Supply Tech Relationship Specialty Start Date End Date Marco Bales DO [facility] [place] [address] PCP - [facility] 01/13/24
--- OUTSIDE RECORDS SUMMARY | 2025-05-25 12:04 | XMS_ITS | Encounter Summary ---
Author Organization [facility] Address [address] [place] [address] Care Team Providers Care Leather Fitter Name Role Phone Marco Bales DO Unavailable Encounter Details Date Type Department Care Team (Late st Contact Info) Description 10/31/2023 Abstract [facility] [address] [place] [address] Marco Bales DO [address], [facility]11 Social History Tobacco Use Types Packs/Day Years [...] Ancillary Procedure [facility] DIET[facility] [address] [place] [address] 06/22/2025 9:50 AM EDT Routine [facility] DI[facility] [address] [place] [address] Marco Bales DO [address], [facility] documented as of this encounter Goals Goal Patient Goal Type Associated Problems Recent Progress Patient-Stated? Author Reminders Care Plan OB Reminders No Open Scheduling, Background documented as of this encounter Visit Diagnoses Not on filedocumented in this encounter Additional Health Concerns Active Problems Noted Date Diagnosed Date OB Reminders 07/11/2023 documented as of this encounter Care Teams Leather Fitter Relationship Specialty Start Date End Date Marco Bales DO [address] [place] [address] [place] [address] PCP - [facility] 01/13/24 documented as of this encounter
--- OUTSIDE RECORDS SUMMARY | 2025-05-25 12:04 | XMS_ITS | Encounter Summary ---
Author Organization [facility] Address [address] [place] [address] Care Team Providers Care Home Lighting Adviser Name Role Phone Marco Bales DO Unavailable Encounter Details Date Type Department Care Team (Late st Contact Info) Description 09/20/2023 Abstract [facility] [address] [place] [address] Marco Bales DO [address], [facility]11 Social History Tobacco Use Types Packs/Day [...] Ancillary Procedure [facility] DIETZ [address] [place] [address] 06/22/2025 9:50 AM EDT Routine [facility] [address] [place] [address] Marco Bales DO [address], [facility] documented as of this encounter Goals Goal Patient Goal Type Associated Problems Recent Progress Patient-Stated? Author Reminders Care Plan OB Reminders No Open Scheduling, Background documented as of this encounter Visit Diagnoses Not on filedocumented in this encounter Additional Health Concerns Active Problems Noted Date Diagnosed Date OB Reminders 07/11/2023 documented as of this encounter Care Teams Home Lighting Adviser Relationship Specialty Start Date End Date Marco Bales DO [address] [place] [address] [place] [address] PCP - [facility] 01/13/24 documented as of this encounter
--- OUTSIDE RECORDS SUMMARY | 2025-05-25 12:04 | XMS_ITS | Encounter Summary ---
Author Organization [facility] Address [address] [place] [address] Care Team Providers Care System Integration Engineer Name Role Phone Bria Bales DO Unavailable Encounter Details Date Type Department Care Team (Late st Contact Info) Description 07/11/2023 Clinisync Result Encounter NOMS External Department Unsolicited Bria Bales, DO [address], [facility]11 Social History Tobacco Use Types Packs/Day [...] Procedure [facility] Shawn DIETZ [address] [place] [address] 06/22/2025 9:50 AM EDT Routine [facility] Shawn DIETZ [address] [place] [address] Bria Bales DO [address], [place] [id number] documented as of this encounter Goals Goal Patient Goal Type Associated Problems Recent Progress Patient-Stated? Author Reminders Care Plan OB Reminders No Open Scheduling, Background documented as of this encounter Procedures Procedure Name Priority Date/Time Associated Diagnosis Comments US OB TRANSVAGINAL 07/11/2023 3: 50 PM EDT documented in this encounter Results * US OB TRANSVAGINAL (07/11/2023 3:50 PM EDT) Anatomical Region Laterality Modality Other 07/11/2023 3:50 PM EDT Narrative 07/11/2023 3:50 [place] [address] Ultrasound Report Signed Patient: JERAMY SWEENEY MR#: [id number] : 1995 Acct:[id number] Age/Sex: 28 / F ADM Date: 07/11/23 Loc: US Attending Dr: Bria Bales D.O. Ordering Physician: Bria Bales D.O. Date of Service: 07/11/23 Procedure(s): US OB transvaginal Accession Number(s): [id number] cc: Bria Bales D.O.; Physician,Non-Staff M.D. The [place] [id number] Patient Name: JERAMY SWEENEY MRN: [id number] date: 1995 Sex: F Assigned Patient Location: US Current Patient Location: US Accession/Order Number: [id number] Exam Date: 07/11/2023 13:10 Report Date: 07/11/2023 15:50 At the request of: BRIA BALES Procedure: US OB transvaginal EXAMINATION: US OB transvaginal HISTORY: MISSED MENSES COMPARISON: No relevant comparison available. FINDINGS: GESTATIONAL SAC: Present and normal appearing. YOLK SAC: Present and normal appearing. POLE: Present and normal appearing. CARDIAC: Present. UTERUS: Normal size and appearance. OVARIES: Right: Normal. Left: Corpus lutein cyst. CERVIX: 4.6 cm in length and closed. CUL-DE-SAC: Normal. OTHER: None. AGE BY LMP: 8 weeks 2 days GOOD BY LMP: 02/18/2024 AGE BY US CRL: 6 weeks 3 days GOOD BY US CRL: 03/02/2024 US/US OB transvaginal IMPRESSION: 1. Single live intrauterine . Electronically authenticated by: EFREN VENTURA Date: 07/11/2023 15:50 Dictated By: Efren Ventura M.D. Signed By: 07/11/231552 DD/ 49 TD/TT: Wool Grower: Procedure Note Radiology, Radiologist, MD - 07/11/2023 [place] [address] Ultrasound Report Signed Patient: JERAMY SWEENEY RMR#: [id number] : 1995Acct:[id number] Age/Sex: 28 / FADM Date: 07/11/23 Loc: US Attending Dr: Bria Bales D.O. Ordering Physician: Bria Bales D.O. Date of Service: 07/11/23 Procedure(s): US OB transvaginal Accession Number(s): [id number] cc: Bria Bales D.O.; Physician,Non-Staff Lal[place] [address] Patient Name: JERAMY SWEENEY MRN: [id number] date: 1995 Sex: F Assigned Patient Location: US Current Patient Location: US Accession/Order Number: [id number] Exam Date: 07/11/2023 13:10 Report Date: 07/11/2023 15:50 At the request of: BRIA BALES Procedure: US OB transvaginal EXAMINATION: US OB transvaginal HISTORY: MISSED MENSES COMPARISON: No relevant comparison available. FINDINGS: GESTATIONAL SAC: Present and normal appearing. YOLK SAC: Present and normal appearing. POLE: Present and normal appearing. CARDIAC: Present. UTERUS: Normal size and appearance. OVARIES: Right: Normal. Left: Corpus lutein cyst. CERVIX: 4.6 cm in length and closed. CUL-DE-SAC: Normal. OTHER: None. AGE BY LMP: 8 weeks 2 days GOOD BY LMP: 02/18/2024 AGE BY US CRL: 6 weeks 3 days GOOD BY US CRL: 03/02/2024 US/US OB transvaginal IMPRESSION: 1. Single live intrauterine . Electronically authenticated by: EFREN VENTURA Date: 07/11/2023 15:50 Dictated By: Efren Ventuar M.D. Signed By:07/11/231552 DD/ 49 TD/TT: Wool Grower: us Bria Bales DO [facility] Final Result documented in this encounter Visit Diagnoses Not on filedocumented in this encounter Additional Health Concerns Active Problems Noted Date Diagnosed Date OB Reminders 07/11/2023 documented as of this encounter Care Teams System Integration Engineer Relationship Specialty Start Date End Date Bria Bales DO [address] [place] [address] [place] [address] PCP - [facility] 01/13/24 documented as of this encounter
--- OUTSIDE RECORDS SUMMARY | 2025-05-25 12:04 | XMS_ITS | Encounter Summary ---
Author Organization [facility] Address [address] [place] [address] Care Team Providers Care Pcmh Specialist Name Role Phone Bria Bales DO Unavailable Encounter Details Date Type Department Care Team (Late st Contact Info) Description 12/09/2023 Clinisync Result Encounter [facility] External Department Unsolicited Bria Bales, DO [address], [facility]11 Social History Tobacco Use Types Packs/Day Years [...] 11:00 AM EDT Ancillary Procedure [facility] Kandace DIETZ [address] [place] [id number] 06/22/2025 9:50 AM EDT Routine [facility] Kandace DIETZ [address] [place] [address] Bria Bales DO [address], [place] [id number] documented as of this encounter Goals Goal Patient Goal Type Associated Problems Recent Progress Patient-Stated? Author Reminders Care Plan OB Reminders No Open Scheduling, Background documented as of this encounter Procedures Procedure Name Priority Date/Time Associated Diagnosis Comments US OB GROWTH 12/09/2023 3:20 PM EST documented in this encounter Results * US OB GROWTH (12/09/2023 3:20 PM EST) Anatomical Region Laterality Modality Other 12/09/2023 3:20 PM EST Narrative 12/09/2023 3:22 [place] [address] Ultrasound Report Signed Patient: ЕКАТЕРИНА SWEENEY MR#: [id number] : 1995 Acct:[id number] Age/Sex: 28 / F ADM Date: 12/09/23 Loc: [facility] 250-[address]: Bria Bales D.O. Ordering Physician: Bria Bales D.O. Date of Service: 12/09/23 Procedure(s): US OB growth Accession Number(s): [id number] cc: Bria Bales D.O.; Physician,Non-Staff M.DTammie The [place] [address] Patient Name: ЕКАТЕРИНА SWEENEY MRN: [id number] date: 1995 Sex: F Assigned Patient Location: [facility] Current Patient Location: [facility] Accession/Order Number: [id number] Exam Date: 12/09/2023 14:32 Report Date: 12/09/2023 15:20 At the request of: BRIA BALES Procedure: US OB growth EXAMINATION: US OB growth HISTORY: Z86.59 HISTORY OF MISCARRIAGE COMPARISON: No relevant comparison available. FINDINGS: Heart Rate: 145.9 bpm Amniotic Fluid Volume: 20.8 cm Number: 1.0 Position: Breech presentation, longitudinal lie Maximum Vertical Pocket: 7.5 cm cm 3.7 cm cm 3.7 cm cm 5.8 cm cm BIOMETRY: BPD: 6.9 cm cm; 27 weeks 5 days; 28% HC: 26.7 cmcm; 29 weeks 1 days, 54% AC: 23.7 cm cm; 28 weeks 0 days, 42% FL: 5.2 cm cm; 27 weeks 4 days; 23.1 % % EFW: 1149.7 grams, 2 lbs. 9 oz., 35% FL/AC: 21.8 FL/BPD: 74.9 HC/AC: 1.1 GESTATIONAL AGE: Age by EDC: 28 weeks 0 days GOOD by EDC: 03/02/2024 Age by US: 28 weeks 1 day GOOD by US: 03/01/2024 US/US OB growth IMPRESSION: Normal interval growth Electronically authenticated by: ALFA TEJEDA Date: 12/09/2023 15:20 Dictated By: Alfa Tejeda M.D. Signed By: 12/09/231521 DD/ 19 TD/TT: Director Of Design: Procedure Note Radiology, Radiologist, MD - 12/09/2023 [place] [address] Ultrasound Report Signed Patient: ЕКАТЕРИНА SWEENEY RMR#: [id number] : 1995Acct:[id number] Age/Sex: 28 / FADM Date: 12/09/23 Loc: [facility] 250-[address]: Bria Bales D.O. Ordering Physician: Bria Bales D.O. Date of Service: 12/09/23 Procedure(s): US OB growth Accession Number(s): [id number] cc: Bria Bales D.O.; Physician,Non-Staff Lalit The [place] [id number] Patient Name: ЕКАТЕРИНА SWEENEY MRN: [id number] date: 1995 Sex: F Assigned Patient Location: [facility] Current Patient Location: [facility] Accession/Order Number: [id number] Exam Date: 12/09/2023 14:32 Report Date: 12/09/2023 15:20 At the request of: BRIA BALES Procedure: US OB growth EXAMINATION: US OB growth HISTORY: Z86.59 HISTORY OF MISCARRIAGE COMPARISON: No relevant comparison available. FINDINGS: Heart Rate: 145.9 bpm Amniotic Fluid Volume: 20.8 cm Number: 1.0 Position: Breech presentation, longitudinal lie Maximum Vertical Pocket: 7.5 cm cm 3.7 cm cm 3.7 cm cm 5.8 cm cm BIOMETRY: BPD: 6.9 cm cm; 27 weeks 5 days; 28% HC: 26.7 cmcm; 29 weeks 1 days, 54% AC: 23.7 cm cm; 28 weeks 0 days, 42% FL: 5.2 cm cm; 27 weeks 4 days; 23.1 % % EFW: 1149.7 grams, 2 lbs. 9 oz., 35% FL/AC: 21.8 FL/BPD: 74.9 HC/AC: 1.1 GESTATIONAL AGE: Age by EDC: 28 weeks 0 days GOOD by EDC: 03/02/2024 Age by US: 28 weeks 1 day GOOD by US: 03/01/2024 US/US OB growth IMPRESSION: Normal interval growth Electronically authenticated by: ALFA TEJEDA Date: 12/09/2023 15:20 Dictated By: Alfa Tejeda M.D. Signed By:12/09/23 1522 DD/ 1520 TD/TT: Director Of Design: us Bria Bales DO [facility] Final Result documented in this encounter Visit Diagnoses Not on filedocumented in this encounter Additional Health Concerns Active Problems Noted Date Diagnosed Date OB Reminders 07/11/2023 documented as of this encounter Care Teams Pcmh Specialist Relationship Specialty Start Date End Date Bria Bales DO [address] [place] [address] [place] [address] PCP - [facility] 01/13/24 documented as of this encounter
--- OUTSIDE RECORDS SUMMARY | 2025-05-25 12:04 | XMS_ITS | Encounter Summary ---
Author Organization [facility] Address [address] [place] [address] Care Team Providers Care Tip Stitcher Name Role Phone Bria Bales DO Unavailable Encounter Details Date Type Department Care Team (Late st Contact Info) Description 01/07/2024 Clinisync Result Encounter [facility] External Department Unsolicited Bria Bales, DO [address], [facility]11 Social History Tobacco Use Types Packs/Day [...] [facility] Kandace DIETZ [address] [place] [phone] 06/22/2025 9:50 AM EDT Routine [facility] Kandace DIETZ [address] [place] [address] Bria Bales DO [address], [place] [id number] documented as of this encounter Goals Goal Patient Goal Type Associated Problems Recent Progress Patient-Stated? Author Reminders Care Plan OB Reminders No Open Scheduling, Background documented as of this encounter Procedures Procedure Name Priority Date/Time Associated Diagnosis Comments GLUCOSE 1 HOUR Routine 01/07/2024 9:03 AM EDT ALL CBC WITH AUTO DIFF Routine 01/07/2024 9:03 AM EDT US OB BPP W NON-STRESS 01/07/2024 7:06 AM EDT documented in this encounter Results * (ABNORMAL) GLUCOSE 1 HOUR (01/07/2024 9:03 AM EDT) GLUCOSE 1 HOUR 163(H) <130 mg/dL [facility] 01/07/2024 9:03 AM EDT 01/07/2024 9:03 AM EDT Narrative [facility] - 01/07/2024 10:38 AM EDT Rosana HAYES LAB BLOOD ORDERABLES Final Resul t [facility] * (ABNORMAL) ALL CBC WITH AUTO DIFF (01/07/2024 9:03 AM EDT) [facility] WBC 7.3 4.0 - 11.0 10 3/uL [facility] RBC 3.23(L) 4.20 - 5.40 10 6/uL [facility] HGB 10.1(L) 12.0 - 16.0 g/dL [facility] TB[facility] HCT 31.2(L) 36.0 - 48.0 % [facility] MCV 96.6 81.0 - 99.0 fL TBH TBH MCH 31.3 26.7 - 34.0 pg TBH TB[facility] MCHC 32.4 29.9 - 35.2 g/dL [facility]H TB[facility] RDW 13.2 11.0 - 15.0 % [facility]H [facility] PLT 136(L) 150 - 450 10 3/uL [facility] MPV 11.1 9.5 - 13.5 fL [facility]H NEUTROPHILS PERCENT AUTO 80.2(H) 43.0 - 75.0 % [facility] LYMPHOCYTES PERCENT AUTO 13.6(L) 20.5 - 60.0 % [facility] MONOCYTES PERCENT AUTO 5.2 1.7 - 12.0 % [facility] EO % 0.3(L) 0.9 - 7.0 % [facility] BASOPHILS PERCENT AUTO 0.1(L) 0.2 - 2.0 % [facility] IMMATURE GRANULOCYTES PCT AUTO 0.6(H) 0.0 - 0.5 % [facility] NEUTROPHILS ABSOLUTE AUTO 5.8 1.4 - 6.5 10 3/uL [facility] LYMPHOCYTES ABSOLUTE AUTO 1.0(L) 1.2 - 3.8 10 3/uL [facility] MONOCYTES ABSOLUTE AUTO 0.4 0.3 - 0.8 10 3/uL [facility] TB[facility] EO # 0.0 0.0 - 0.7 10 3/uL [facility] BASOPHILS ABSOLUTE AUTO 0.0 0.0 - 0.1 10 3/uL [facility] IMMATURE GRANULOCYTES ABS AUTO 0.04(H) 0.00 - 0.03 10 3/uL [facility] 01/07/2024 9:03 AM EDT 01/07/2024 9:03 AM EDT Narrative [facility] - 01/07/2024 9:20 AM EDT Rosana HAYES [facility] Final Result Performing Organization Address City/State/[facility] Co de Phone Number [facility] * US OB BPP W NON-STRESS (01/07/2024 7:06 AM EDT) Anatomical Region Laterality Modality Other 01/07/2024 7:06 AM EDT Narrative 01/07/2024 7:09 [place] [address] Ultrasound Report Signed Patient: ЕКАТЕРИНА SWEENEY MR#: [id number] : 1995 Acct:[id number] Age/Sex: 28 / F ADM Date: 01/06/24 Loc: US Attending Dr: Bria Bales D.O. Ordering Physician: Bria Bales D.O. Date of Service: 01/06/24 Procedure(s): US OB BPP w non-stress Accession Number(s): [id number] cc: Bria Bales D.O.; Physician,Non-Staff Lalit The [address] [address] Patient Name: ЕКАТЕРИНА SWEENEY MRN: [id number] date: 1995 Sex: F Assigned Patient Location: US Current Patient Location: US Accession/Order Number: [id number] Exam Date: 01/06/2024 14:30 Report Date: 01/07/2024 07:06 At the request of: BRIA BALES Procedure: US OB BPP w non-stress EXAMINATION: US OB BPP w non-stress HISTORY: History of miscarriage Z87.59 COMPARISON: No relevant comparison available. TECHNIQUE: Ultrasound biophysical profile was performed in the radiology department. FINDINGS: BREATHING MOVEMENTS: 2.0 GROSS BODY MOVEMENTS: 2.0 TONE: 2.0 QUALITATIVE AMNIOTIC FLUID VOLUME: 2.0 PRESENTATION: CEPHALIC HEART RATE: 139.2 bpm H.B./min AMNIOTIC FLUID VOLUME: 21.4 cm cm GESTATIONAL AGE: 32 weeks 0 days CONCLUSION: Total biophysical profile score: 8.0 Electronically authenticated by: ALFA TEJEDA Date: 01/07/2024 07:06 Dictated By: Alfa Tejeda M.D. Signed By: 01/07/24708 DD/ 5 TD/TT: Rehabilitation Aide/Scheduler: Procedure Note Radiology, Radiologist, MD - 01/07/2024 The [place] [id number] Ultrasound Report Signed Patient: ЕКАТЕРИНА SWEENEY RMR#: [id number] : 1995Acct:[id number] Age/Sex: 28 / FADM Date: 01/06/24 Loc: US Attending Dr: Bria Bales D.O. Ordering Physician: Bria Bales D.O. Date of Service: 01/06/24 Procedure(s): US OB BPP w non-stress Accession Number(s): [id number] cc: Nii,Bria D.O.; Physician,Non-Staff Lalit [address] [id number] Patient Name: ЕКАТЕРИНА SWEENEY MRN: [facility]:[id number] date: 1995 Sex: F Assigned Patient Location: US Current Patient Location: US Accession/Order Number: [id number] Exam Date: 01/06/2024 14:30 Report Date: 01/07/2024 07:06 At the request of: BRIA BALES Procedure: US OB BPP w non-stress EXAMINATION: US OB BPP w non-stress HISTORY: History of miscarriage Z87.59 COMPARISON: No relevant comparison available. TECHNIQUE: Ultrasound biophysical profile was performed in the radiology department. FINDINGS: BREATHING MOVEMENTS: 2.0 GROSS BODY MOVEMENTS: 2.0 TONE: 2.0 QUALITATIVE AMNIOTIC FLUID VOLUME: 2.0 PRESENTATION: CEPHALIC HEART RATE: 139.2 bpm H.B./min AMNIOTIC FLUID VOLUME: 21.4 cm cm GESTATIONAL AGE: 32 weeks 0 days CONCLUSION: Total biophysical profile score: 8.0 Electronically authenticated by: ALFA TEJEDA Date: 01/07/2024 07:06 Dictated By: Alfa Tejeda M.D. Signed By:01/07/24 0709 DD/ TD/TT: Rehabilitation Aide/Scheduler: Bria Bales DO [facility] Final Result documented in this encounter Visit Diagnoses Not on filedocumented in this encounter Additional Health Concerns Active Problems Noted Date Diagnosed Date OB Reminders 07/11/2023 documented as of this encounter Care Teams Tip Stitcher Relationship Specialty Start Date End Date Bria Bales DO [address] [place] [address] [place] [address] PCP - [facility] 01/13/24 documented as of this encounter
--- OUTSIDE RECORDS SUMMARY | 2025-05-25 12:04 | XMS_ITS | Encounter Summary ---
Author Organization [facility] Address [address] [place] [address] Care Team Providers Care Field Marketing Lead Name Role Phone Bria Bales DO Unavailable Encounter Details Date Type Department Care Team (Late st Contact Info) Description 12/23/2023 Clinisync Result Encounter [facility] External Department Unsolicited Bria Bales, DO [address], [facility]11 Social History Tobacco Use Types Packs/Day Years [...] Procedure [facility] Shawn DIETZ [address] [place] [phone] 06/22/2025 9:50 AM EDT Routine [facility] Shawn DIETZ [address] [place] [address] Bria Bales DO [address], [facility]11 documented as of this encounter Goals Goal Patient Goal Type Associated Problems Recent Progress Patient-Stated? Author Reminders Care Plan OB Reminders No Open Scheduling, Background documented as of this encounter Procedures Procedure Name Priority Date/Time Associated Diagnosis Comments US OB BPP W NON-STRESS 12/23/2023 2:58 PM EDT documented in this encounter Results * US OB BPP W NON-STRESS (12/23/2023 2:58 PM EDT) Anatomical Region Laterality Modality Other 12/23/2023 2:58 PM EDT Narrative 12/23/2023 3:01 [place] [address] Ultrasound Report Signed Patient: JERAMY SWEENEY MR#: [id number] : 1995 Acct:[id number] Age/Sex: 28 / F ADM Date: 12/23/23 Loc: [facility] 250-[address]: Bria Bales D.O. Ordering Physician: Bria Bales D.O. Date of Service: 12/23/23 Procedure(s): US OB BPP w non-stress Accession Number(s): [id number] cc: Bria Bales D.O.; Physician,Non-Staff M.DTammie The [place] [address] Patient Name: JERAMY SWEENEY MRN: [id number] date: 1995 Sex: F Assigned Patient Location: [facility] Current Patient Location: [facility] Accession/Order Number: [id number] Exam Date: 12/23/2023 14:15 Report Date: 12/23/2023 14:58 At the request of: BRIA BALES Procedure: US OB BPP w non-stress EXAMINATION: US OB BPP w non-stress HISTORY: History of miscarriage Z87.59, History of oligohydramnios COMPARISON: 12/16/2023 TECHNIQUE: Ultrasound biophysical profile was performed in the radiology department. FINDINGS: BREATHING MOVEMENTS: 2.0 GROSS BODY MOVEMENTS: 2.0 TONE: 2.0 QUALITATIVE AMNIOTIC FLUID VOLUME: 2.0 PRESENTATION: CEPHALIC HEART RATE: 142.9 bpm H.B./min AMNIOTIC FLUID VOLUME: 18.1 cm cm GESTATIONAL AGE: 30 weeks 0 days CONCLUSION: Total biophysical profile score: 8.0 Electronically authenticated by: ALFA TEJEDA Date: 12/23/2023 14:58 Dictated By: Alfa Tejeda M.D. Signed By: 12/23/23 150 DD/ 1459 TD/TT: Support Representative: Procedure Note Radiology, Radiologist, MD - 12/23/2023 [place] [address] Ultrasound Report Signed Patient: JERAMY SWEENEY RMR#: [id number] : 1995Acct:[id number] Age/Sex: 28 / FADM Date: 12/23/23 Loc: [facility] 250-[address]: Bria Bales D.O. Ordering Physician: Bria Bales D.O. Date of Service: 12/23/23 Procedure(s): US OB BPP w non-stress Accession Number(s): [id number] cc: Bria Bales D.O.; Physician,Non-Staff Lalit The [place] [id number] Patient Name: JERAMY SWEENEY MRN: [id number] date: 1995 Sex: F Assigned Patient Location: [facility] Current Patient Location: [facility] Accession/Order Number: [id number] Exam Date: 12/23/2023 14:15 Report Date: 12/23/2023 14:58 At the request of: BRIA BALES Procedure: US OB BPP w non-stress EXAMINATION: US OB BPP w non-stress HISTORY: History of miscarriage Z87.59, History of oligohydramnios COMPARISON: 12/16/2023 TECHNIQUE: Ultrasound biophysical profile was performed in the radiology department. FINDINGS: BREATHING MOVEMENTS: 2.0 GROSS BODY MOVEMENTS: 2.0 TONE: 2.0 QUALITATIVE AMNIOTIC FLUID VOLUME: 2.0 PRESENTATION: CEPHALIC HEART RATE: 142.9 bpm H.B./min AMNIOTIC FLUID VOLUME: 18.1 cm cm GESTATIONAL AGE: 30 weeks 0 days CONCLUSION: Total biophysical profile score: 8.0 Electronically authenticated by: ALFA TEJEDA Date: 12/23/2023 14:58 Dictated By: Alfa Tejeda M.D. Signed By:12/23/23 1501 DD/ 1458 TD/TT: Support Representative: us Bria Bales DO [facility] Final Result documented in this encounter Visit Diagnoses Not on filedocumented in this encounter Additional Health Concerns Active Problems Noted Date Diagnosed Date OB Reminders 07/11/2023 documented as of this encounter Care Teams Field Marketing Lead Relationship Specialty Start Date End Date Bria Bales DO [address] [place] [address] [place] [address] PCP - [facility] 01/13/24 documented as of this encounter
--- OUTSIDE RECORDS SUMMARY | 2025-05-25 12:04 | XMS_ITS | Encounter Summary ---
Author Organization [facility] Address [address] [place] [address] Care Team Providers Care Sales Development Representative Name Role Phone Bria Bales DO Unavailable Encounter Details Date Type Department Care Team (Late st Contact Info) Description 01/21/2024 Clinisync Result Encounter [facility]OMS External Department Unsolicited Bria Bales, DO [address], [facility] Social History Tobacco Use Types Packs/Day Years [...] Procedure [facility] Shawn DIETZ [address] [place] [address] 06/22/2025 9:50 AM EDT Routine [facility] Shawn DIETZ [address] [place] [address] Bria Bales DO [address], [place] [phone] documented as of this encounter Goals Goal Patient Goal Type Associated Problems Recent Progress Patient-Stated? Author Reminders Care Plan OB Reminders No Open Scheduling, Background documented as of this encounter Procedures Procedure Name Priority Date/Time Associated Diagnosis Comments US OB BPP W NON-STRESS 01/21/2024 7:13 AM EDT documented in this encounter Results * US OB BPP W NON-STRESS (01/21/2024 7:13 AM EDT) Anatomical Region Laterality Modality Other 01/21/2024 7:13 AM EDT Narrative 01/21/2024 7:16 [place] [address] Ultrasound Report Signed Patient: JERAMY SWEENEY MR#: [id number] : 1995 Acct:[id number] Age/Sex: 28 / F ADM Date: 01/20/24 Loc: US Attending Dr: Bria Bales D.O. Ordering Physician: Bria Bales D.O. Date of Service: 01/20/24 Procedure(s): US OB BPP w non-stress Accession Number(s): [id number] cc: Bria Bales D.O.; Physician,Non-Staff M.DTammie The [place] [id number] Patient Name: JERAMY SWEENEY MRN: [id number] date: 1995 Sex: F Assigned Patient Location: [facility] Current Patient Location: Accession/Order Number: [id number] Exam Date: 01/20/2024 19:12 Report Date: 01/21/2024 07:13 At the request of: BRIA BALES Procedure: US OB BPP w non-stress EXAMINATION: US OB BPP w non-stress HISTORY: HISTORY OF MISCARRIAGE Z87.59 COMPARISON: 01/13/2024 TECHNIQUE: Ultrasound biophysical profile was performed in the radiology department. FINDINGS: BREATHING MOVEMENTS: 2.0 GROSS BODY MOVEMENTS: 2.0 TONE: 2.0 QUALITATIVE AMNIOTIC FLUID VOLUME: 2.0 PRESENTATION: CEPHALIC HEART RATE: 136.4 bpm H.B./min AMNIOTIC FLUID VOLUME: 19.5 cm cm GESTATIONAL AGE: 34 weeks 0 days CONCLUSION: Total biophysical profile score: 8.0 Electronically authenticated by: ALFA TEJEDA Date: 01/21/2024 07:13 Dictated By: Alfa Tejeda M.D. Signed By: 01/21/24715 DD/ 2 TD/TT: Community Reinvestment Act Officer: Procedure Note Radiology, Radiologist, MD - 01/21/2024 [place] [address] Ultrasound Report Signed Patient: JERAMY SWEENEY RMR#: [id number] : 1995Acct:[id number] Age/Sex: 28 / FADM Date: 01/20/24 Loc: US Attending Dr: Bria Bales D.O. Ordering Physician: Bria Bales D.O. Date of Service: 01/20/24 Procedure(s): US OB BPP w non-stress Accession Number(s): [id number] cc: Bria Bales D.O.; Physician,Non-Staff Lalit The [place] [id number] Patient Name: JERAMY SWEENEY MRN: [id number] date: 1995 Sex: F Assigned Patient Location: [facility] Current Patient Location: Accession/Order Number: [id number] Exam Date: 01/20/2024 19:12 Report Date: 01/21/2024 07:13 At the request of: BRIA BALES Procedure: US OB BPP w non-stress EXAMINATION: US OB BPP w non-stress HISTORY: HISTORY OF MISCARRIAGE Z87.59 COMPARISON: 01/13/2024 TECHNIQUE: Ultrasound biophysical profile was performed in the radiology department. FINDINGS: BREATHING MOVEMENTS: 2.0 GROSS BODY MOVEMENTS: 2.0 TONE: 2.0 QUALITATIVE AMNIOTIC FLUID VOLUME: 2.0 PRESENTATION: CEPHALIC HEART RATE: 136.4 bpm H.B./min AMNIOTIC FLUID VOLUME: 19.5 cm cm GESTATIONAL AGE: 34 weeks 0 days CONCLUSION: Total biophysical profile score: 8.0 Electronically authenticated by: ALFA TEJEDA Date: 01/21/2024 07:13 Dictated By: Alfa Tejeda M.D. Signed By:01/21/24715 DD/ 2 TD/TT: Community Reinvestment Act Officer: Bria Bales DO [facility] Final Result documented in this encounter Visit Diagnoses Not on filedocumented in this encounter Additional Health Concerns Active Problems Noted Date Diagnosed Date OB Reminders 07/11/2023 documented as of this encounter Care Teams Sales Development Representative Relationship Specialty Start Date End Date Bria Bales DO [facility] [address] [place] [id number] PCP - [facility] 01/13/24 documented as of this encounter
--- OUTSIDE RECORDS SUMMARY | 2025-05-25 12:04 | XMS_ITS | Encounter Summary ---
Author Organization [facility] Address [address] [place] [address] Care Team Providers Care Search Engineer Name Role Phone Marco Bales DO Unavailable Encounter Details Date Type Department Care Team (Late st Contact Info) Description 04/02/2024 Abstract NOMJovany DIETZ [address] [place] [address] Marco Bales DO [address], [facility] Social History Tobacco Use Types Packs/Day Years Used Date Smoking Tobacco: Never Assessed Comments No Sex and Gender Information Value Date Recorded [...] Ancillary Procedure NOMJovany DIETZ [address] [place] [address] 06/22/2025 9:50 AM EDT Routine NOM[facility]ovany DIETZ [address] [place] [address] Marco Bales DO [address], [facility] documented as of this encounter Goals Goal Patient Goal Type Associated Problems Recent Progress Patient-Stated? Author Reminders Care Plan OB Reminders No Open Scheduling, Background documented as of this encounter Visit Diagnoses Not on filedocumented in this encounter Additional Health Concerns Active Problems Noted Date Diagnosed Date OB Reminders 07/11/2023 documented as of this encounter Care Teams Search Engineer Relationship Specialty Start Date End Date Marco Bales DO [address] [place] [address] [place] [address] PCP - [facility] 01/13/24 documented as of this encounter
--- OUTSIDE RECORDS SUMMARY | 2025-05-25 12:04 | XMS_ITS | Encounter Summary ---
Author Organization [facility] Address [address] [place] [address] Care Team Providers Care Mill Stenciler Name Role Phone Bria Bales DO Unavailable Encounter Details Date Type Department Care Team (Late st Contact Info) Description 01/07/2024 Clinisync Result Encounter [facility] External Department Unsolicited Bria Bales, DO [address], [facility]11 Social History Tobacco Use Types Packs/Day [...] Procedure [facility] Kandace DIETZ [address] [place] [id number] 06/22/2025 9:50 AM EDT Routine [facility] Kandace DIETZ [address] [place] [address] Bria Bales DO [address], [place] [id number] documented as of this encounter Goals Goal Patient Goal Type Associated Problems Recent Progress Patient-Stated? Author Reminders Care Plan OB Reminders No Open Scheduling, Background documented as of this encounter Procedures Procedure Name Priority Date/Time Associated Diagnosis Comments US OB GROWTH 01/07/2024 7:06 AM EDT documented in this encounter Results * US OB GROWTH (01/07/2024 7:06 AM EDT) Anatomical Region Laterality Modality Other 01/07/2024 7:06 AM EDT Narrative 01/07/2024 7:08 [place] [address] Ultrasound Report Signed Patient: ЕКАТЕРИНА SWEENEY MR#: [id number] : 1995 Acct:[id number] Age/Sex: 28 / F ADM Date: 01/06/24 Loc: US Attending Dr: Bria Bales D.O. Ordering Physician: Bria Bales D.O. Date of Service: 01/06/24 Procedure(s): US OB growth Accession Number(s): [id number] cc: Bria Bales D.O.; Physician,Non-Staff M.DTammie The [place] [id number] Patient Name: ЕКАТЕРИНА SWEENEY MRN: [id number] date: 1995 Sex: F Assigned Patient Location: US Current Patient Location: US Accession/Order Number: [id number] Exam Date: 01/06/2024 14:30 Report Date: 01/07/2024 07:06 At the request of: BRIA BALES Procedure: US OB growth EXAMINATION: US OB growth HISTORY: History of oligohydramnios Z87.59 COMPARISON: No relevant comparison available. FINDINGS: Heart Rate: 139.2 bpm Amniotic Fluid Volume: 21.4 cm Number: 1.0 Position: Cephalic presentation, longitudinal lie Maximum Vertical Pocket: 8.6 cm cm 1.9 cm cm 5.7 cm cm 5.2 cm cm BIOMETRY: BPD: 8.2 cm cm; 32 weeks 6 days; 66% HC: 29.4 cmcm; 32 weeks 3 days , 25% AC: 28.2 cm cm; 32 weeks 2 days, 55% FL: 5.9 cm cm; 30 weeks 4 days; 8.5 % % EFW: 1841.5 grams, 4 lbs. 1 oz., 33% FL/AC: 20.8 FL/BPD: 71.8 HC/AC: 1.0 GESTATIONAL AGE: Age by EDC: 32 weeks 0 days GOOD by EDC: 03/02/2024 Age by US: 32 weeks 0 days GOOD by US: 03/02/2024 US/US OB growth IMPRESSION: Normal interval growth Electronically authenticated by: ALFA TEJEDA Date: 01/07/2024 07:06 Dictated By: Alfa Tejeda M.D. Signed By: 01/07/2408 DD/ 5 TD/TT: Railroad Car Painter: Procedure Note Radiology, Radiologist, MD - 01/07/2024 [place] [address] Ultrasound Report Signed Patient: ЕКАТЕРИНА SWEENEY RMR#: [id number] : 1995Acct:[id number] Age/Sex: 28 FADM Date: 01/06/24 Loc: US Attending Dr: Bria Bales D.O. Ordering Physician: Bria Bales D.O. Date of Service: 01/06/24 Procedure(s): US OB growth Accession Number(s): [id number] cc: Bria Bales D.O.; Physician,Non-Staff Lalit The [place] [address] Patient Name: ЕКАТЕРИНА SWEENEY MRN: [id number] date: 1995 Sex: F Assigned Patient Location: US Current Patient Location: US Accession/Order Number: [id number] Exam Date: 01/06/2024 14:30 Report Date: 01/07/2024 07:06 At the request of: BRIA BALES Procedure: US OB growth EXAMINATION: US OB growth HISTORY: History of oligohydramnios Z87.59 COMPARISON: No relevant comparison available. FINDINGS: Heart Rate: 139.2 bpm Amniotic Fluid Volume: 21.4 cm Number: 1.0 Position: Cephalic presentation, longitudinal lie Maximum Vertical Pocket: 8.6 cm cm 1.9 cm cm 5.7 cm cm 5.2 cm cm BIOMETRY: BPD: 8.2 cm cm; 32 weeks 6 days; 66% HC: 29.4 cmcm; 32 weeks 3 days , 25% AC: 28.2 cm cm; 32 weeks 2 days, 55% FL: 5.9 cm cm; 30 weeks 4 days; 8.5 % % EFW: 1841.5 grams, 4 lbs. 1 oz., 33% FL/AC: 20.8 FL/BPD: 71.8 HC/AC: 1.0 GESTATIONAL AGE: Age by EDC: 32 weeks 0 days GOOD by EDC: 03/02/2024 Age by US: 32 weeks 0 days GOOD by US: 03/02/2024 US/US OB growth IMPRESSION: Normal interval growth Electronically authenticated by: ALFA TEJEDA Date: 01/07/2024 07:06 Dictated By: Alfa Tejeda M.D. Signed By:01/07/2408 DD/ 5 TD/TT: Railroad Car Painter: Bria Bales DO [facility] Final Result documented in this encounter Visit Diagnoses Not on filedocumented in this encounter Additional Health Concerns Active Problems Noted Date Diagnosed Date OB Reminders 07/11/2023 documented as of this encounter Care Teams Mill Stenciler Relationship Specialty Start Date End Date Bria Bales DO [address] [place] [address] [place] [address] PCP - [facility] 01/13/24 documented as of this encounter
--- OUTSIDE RECORDS SUMMARY | 2025-05-25 12:04 | XMS_ITS | Encounter Summary ---
Author Organization [facility] Address [address] [place] [address] Care Team Providers Care Caddymaster Name Role Phone Bria Bales DO Unavailable Encounter Details Date Type Department Care Team (Late st Contact Info) Description 12/09/2023 Clinisync Result Encounter [facility] External Department Unsolicited Bria Bales, DO [address], [facility]11 Social History Tobacco Use Types [...] Procedure [facility] Shawn DIETZ [address] [place] [phone] 06/22/2025 9:50 AM EDT Routine [facility] Shawn DIETZ [address] [place] [address] Bria Bales DO [address], [place] [phone] documented as of this encounter Goals Goal Patient Goal Type Associated Problems Recent Progress Patient-Stated? Author Reminders Care Plan OB Reminders No Open Scheduling, Background documented as of this encounter Procedures Procedure Name Priority Date/Time Associated Diagnosis Comments US OB BPP W NON-STRESS 12/09/2023 3:19 PM EST documented in this encounter Results * US OB BPP W NON-STRESS (12/09/2023 3:19 PM EST) Anatomical Region Laterality Modality Other 12/09/2023 3:19 PM EST Narrative 12/09/2023 3:21 [place] [address] Ultrasound Report Signed Patient: JERAMY SWEENEY MR#: [id number] : 1995 Acct:[id number] Age/Sex: 28 / F ADM Date: 12/09/23 Loc: [facility] 250-[address]: Bria Bales D.O. Ordering Physician: Bria Bales D.O. Date of Service: 12/09/23 Procedure(s): US OB BPP w non-stress Accession Number(s): [id number] cc: Bria Bales D.O.; Physician,Non-Staff M.DTammie The [place] [id number] Patient Name: JERAMY SWEENEY MRN: [id number] date: 1995 Sex: F Assigned Patient Location: [facility] Current Patient Location: [facility] Accession/Order Number: [id number] Exam Date: 12/09/2023 14:32 Report Date: 12/09/2023 15:19 At the request of: BRIA BALES Procedure: US OB BPP w non-stress EXAMINATION: US OB BPP w non-stress HISTORY: Z86.59 HISTORY OF MISCARRIAGE COMPARISON: No relevant comparison available. TECHNIQUE: Ultrasound biophysical profile was performed in the radiology department. non-reactive stress testing was performed by nursing staff in the birthing center. FINDINGS: BREATHING MOVEMENTS: 2.0 GROSS BODY MOVEMENTS: 2.0 TONE: 2.0 QUALITATIVE AMNIOTIC FLUID VOLUME: 2.0 PRESENTATION: BREECH HEART RATE: 145.9 bpm H.B./min AMNIOTIC FLUID VOLUME: 20.8 cm cm GESTATIONAL AGE: 28 weeks 0 days CONCLUSION: Total biophysical profile score: 8.0 Electronically authenticated by: ALFA TEJEDA Date: 12/09/2023 15:19 Dictated By: Alfa Tejeda M.D. Signed By: 12/09/23 1521 DD/ 1519 TD/TT: Yeast Washer: Procedure Note Radiology, Radiologist, MD - 12/09/2023 [place] [address] Ultrasound Report Signed Patient: JERAMY SWEENEY RMR#: [id number] : 1995Acct:[id number] Age/Sex: 28 / FADM Date: 12/09/23 Loc: [facility] 250-[address]: Bria Bales D.O. Ordering Physician: Bria Bales D.O. Date of Service: 12/09/23 Procedure(s): US OB BPP w non-stress Accession Number(s): [id number] cc: Bria Bales D.O.; Physician,Non-Staff Lalit The [place] [id number] Patient Name: JERAMY SWEENEY MRN: [id number] date: 1995 Sex: F Assigned Patient Location: [facility] Current Patient Location: [facility] Accession/Order Number: [id number] Exam Date: 12/09/2023 14:32 Report Date: 12/09/2023 15:19 At the request of: BRIA BALES Procedure: US OB BPP w non-stress EXAMINATION: US OB BPP w non-stress HISTORY: Z86.59 HISTORY OF MISCARRIAGE COMPARISON: No relevant comparison available. TECHNIQUE: Ultrasound biophysical profile was performed in the radiology department. non-reactive stress testing was performed by nursingstaff in the birthing center. FINDINGS: BREATHING MOVEMENTS: 2.0 GROSS BODY MOVEMENTS: 2.0 TONE: 2.0 QUALITATIVE AMNIOTIC FLUID VOLUME: 2.0 PRESENTATION: BREECH HEART RATE: 145.9 bpm H.B./min AMNIOTIC FLUID VOLUME: 20.8 cm cm GESTATIONAL AGE: 28 weeks 0 days CONCLUSION: Total biophysical profile score: 8.0 Electronically authenticated by: ALFA TEJEDA Date: 12/09/2023 15:19 Dictated By: Alfa Tejeda M.D. Signed By:12/09/23 1521 DD/ 1519 TD/TT: Yeast Washer: us Bria Bales DO [facility] Final Result documented in this encounter Visit Diagnoses Not on filedocumented in this encounter Additional Health Concerns Active Problems Noted Date Diagnosed Date OB Reminders 07/11/2023 documented as of this encounter Care Teams Caddymaster Relationship Specialty Start Date End Date Bria Bales DO [address] [place], [place] [address]al[place] [address] PCP - [facility] 01/13/24 documented as of this encounter
--- OUTSIDE RECORDS SUMMARY | 2025-05-25 12:04 | XMS_ITS | Encounter Summary ---
Author Organization [facility] Address [address] [place] [address] Care Team Providers Care Supply Chain Engineer Name Role Phone Bria Bales DO Unavailable Encounter Details Date Type Department Care Team (Late st Contact Info) Description 12/30/2023 Clinisync Result Encounter [facility] External Department Unsolicited Bria Bales, DO [address], [facility]11 Social History Tobacco Use Types Packs/Day [...] Procedure [facility] Shawn DIETZ [address] [place] [address] 06/22/2025 9:50 AM EDT Routine [facility] Shawn DIETZ [address] [place] [address] Bria Bales DO [address], [place] [phone] documented as of this encounter Goals Goal Patient Goal Type Associated Problems Recent Progress Patient-Stated? Author Reminders Care Plan OB Reminders No Open Scheduling, Background documented as of this encounter Procedures Procedure Name Priority Date/Time Associated Diagnosis Comments US OB BPP W NON-STRESS 12/30/2023 2:40 PM EDT documented in this encounter Results * US OB BPP W NON-STRESS (12/30/2023 2:40 PM EDT) Anatomical Region Laterality Modality Other 12/30/2023 2:40 PM EDT Narrative 12/30/2023 2:43 [place] [address] Ultrasound Report Signed Patient: JERAMY SWEENEY MR#: [id number] : 1995 Acct:[id number] Age/Sex: 28 / F ADM Date: 12/30/23 Loc: [facility] 250-[address]: Bria Bales D.O. Ordering Physician: Bria Bales D.O. Date of Service: 12/30/23 Procedure(s): US OB BPP w non-stress Accession Number(s): [id number] cc: Bria Bales D.O.; Physician,Non-Staff M.DTammie The [place] [id number] Patient Name: JERAMY SWEENEY MRN: [id number] date: 1995 Sex: F Assigned Patient Location: [facility] Current Patient Location: [facility] Accession/Order Number: [id number] Exam Date: 12/30/2023 14:07 Report Date: 12/30/2023 14:40 At the request of: BRIA BALES Procedure: US OB BPP w non-stress EXAMINATION: US OB BPP w non-stress HISTORY: HISTORY OF MISCARRIAGE Z57.59 COMPARISON: No relevant comparison available. TECHNIQUE: Ultrasound biophysical profile was performed in the radiology department. FINDINGS: BREATHING MOVEMENTS: 2.0 GROSS BODY MOVEMENTS: 2.0 TONE: 2.0 QUALITATIVE AMNIOTIC FLUID VOLUME: 2.0 PRESENTATION: CEPHALIC HEART RATE: 122.7 bpm H.B./min AMNIOTIC FLUID VOLUME: 19.7 cm cm GESTATIONAL AGE: 31 weeks 0 days CONCLUSION: Total biophysical profile score: 8.0 Electronically authenticated by: ALFA TEJEDA Date: 12/30/2023 14:40 Dictated By: Alfa Tejeda M.D. Signed By: 12/30/23 1443 DD/ 1440 TD/TT: Alarm Operator: Procedure Note Radiology, Radiologist, MD - 12/30/2023 [place] [address] Ultrasound Report Signed Patient: JERAMY SWEENEY RMR#: [id number] : 1995Acct:[id number] Age/Sex: 28 / FADM Date: 12/30/23 Loc: [facility] 250-[address]: Bria Bales D.O. Ordering Physician: Bria Bales D.O. Date of Service: 12/30/23 Procedure(s): US OB BPP w non-stress Accession Number(s): [id number] cc: Bria Bales D.O.; Physician,Non-Staff Lalit The [place] [id number] Patient Name: JERAMY SWEENEY MRN: [id number] date: 1995 Sex: F Assigned Patient Location: [facility] Current Patient Location: [facility] Accession/Order Number: [id number] Exam Date: 12/30/2023 14:07 Report Date: 12/30/2023 14:40 At the request of: BRIA BALES Procedure: US OB BPP w non-stress EXAMINATION: US OB BPP w non-stress HISTORY: HISTORY OF MISCARRIAGE Z57.59 COMPARISON: No relevant comparison available. TECHNIQUE: Ultrasound biophysical profile was performed in the radiology department. FINDINGS: BREATHING MOVEMENTS: 2.0 GROSS BODY MOVEMENTS: 2.0 TONE: 2.0 QUALITATIVE AMNIOTIC FLUID VOLUME: 2.0 PRESENTATION: CEPHALIC HEART RATE: 122.7 bpm H.B./min AMNIOTIC FLUID VOLUME: 19.7 cm cm GESTATIONAL AGE: 31 weeks 0 days CONCLUSION: Total biophysical profile score: 8.0 Electronically authenticated by: ALFA TEJEDA Date: 12/30/2023 14:40 Dictated By: Alfa Tejeda M.D. Signed By:12/30/23 1443 DD/ 144 TD/TT: Alarm Operator: us Bria Bales DO [facility] Final Result documented in this encounter Visit Diagnoses Not on filedocumented in this encounter Additional Health Concerns Active Problems Noted Date Diagnosed Date OB Reminders 07/11/2023 documented as of this encounter Care Teams Supply Chain Engineer Relationship Specialty Start Date End Date Bria Bales DO [facility] [address] [place] [phone] PCP - [facility] 01/13/24 documented as of this encounter
--- OUTSIDE RECORDS SUMMARY | 2025-05-25 12:04 | XMS_ITS | Encounter Summary ---
Author Organization [facility] Address [address] [place] [address] Care Team Providers Care Supervisor Files Name Role Phone Bria Bales DO Unavailable Encounter Details Date Type Department Care Team (Late st Contact Info) Description 02/04/2024 Clinisync Result Encounter [facility] External Department Unsolicited Bria Bales, DO [address], [facility]11 Social History Tobacco Use Types Packs/Day [...] Procedure [facility] Kandace DIETZ [address] [place] [phone] 06/22/2025 9:50 AM EDT Routine [facility] Kandace DIETZ [address] [place] [address] Bria Bales DO [address], [place] [id number] documented as of this encounter Goals Goal Patient Goal Type Associated Problems Recent Progress Patient-Stated? Author Reminders Care Plan OB Reminders No Open Scheduling, Background documented as of this encounter Procedures Procedure Name Priority Date/Time Associated Diagnosis Comments US OB GROWTH 02/04/2024 7:36 AM EDT documented in this encounter Results * US OB GROWTH (02/04/2024 7:36 AM EDT) Anatomical Region Laterality Modality Other 02/04/2024 7:36 AM EDT Narrative 02/04/2024 7:39 [place] [address] Ultrasound Report Signed Patient: ЕКАТЕРИНА SWEENEY MR#: [id number] : 1995 Acct:[id number] Age/Sex: 28 / F ADM Date: 02/03/24 Loc: US Attending Dr: Bria Bales D.O. Ordering Physician: Bria Bales D.O. Date of Service: 02/03/24 Procedure(s): US OB growth Accession Number(s): [id number] cc: Bria Bales D.O.; Physician,Non-Staff M.DTammie The [address] [address] Patient Name: ЕКАТЕРИНА SWEENEY MRN: [id number] date: 1995 Sex: F Assigned Patient Location: [facility] Current Patient Location: US Accession/Order Number: [id number] Exam Date: 02/03/2024 14:20 Report Date: 02/04/2024 07:36 At the request of: BRIA BALES Procedure: US OB growth EXAMINATION: US OB growth HISTORY: HISTORY OF OLIGOHYDRAMINOS Z87.59 COMPARISON: No relevant comparison available. FINDINGS: Heart Rate: 135.0 bpm Amniotic Fluid Volume: 24.5 cm Number: 1.0 Position: CEPHALIC Maximum Vertical Pocket: 4.3 cm cm 7.1 cm cm 6.6 cm cm 6.4 cm cm BIOMETRY: BPD: 8.8 cm cm; 35 weeks 5 days; 51% HC: 32.7 cmcm; 37 weeks 1 days , 47% AC: 32.7 cm cm; 36 weeks 4 days, 77% FL: 6.6 cm cm; 34 weeks 1 days; 8.1 % % EFW: 2813.1 grams, 6 lbs. 3 oz., 50% FL/AC: 20.3 FL/BPD: 75.1 HC/AC: 1.0 GESTATIONAL AGE: Age by EDC: 36 weeks 0 days GOOD by EDC: 03/02/2024 Age by US: 35 weeks 6 days GOOD by US: 03/03/2024 US/US OB growth IMPRESSION: Normal interval growth Electronically authenticated by: ALFA TEJEDA Date: 02/04/2024 07:36 Dictated By: Alfa Tejeda M.D. Signed By: 02/04/24 0739 DD/ 0736 TD/TT: Human Resources Trainer: Procedure Note Radiology, Radiologist, MD - 02/04/2024 [place] [address] Ultrasound Report Signed Patient: ЕКАТЕРИНА SWEENEY RMR#: [id number] : 1995Acct:[id number] Age/Sex: 28 FADM Date: 02/03/24 Loc: US Attending Dr: Bria Bales D.O. Ordering Physician: Bria Bales D.O. Date of Service: 02/03/24 Procedure(s): US OB growth Accession Number(s): [id number] cc: Bria Bales D.O.; Physician,Non-Staff Lalit The [place] [address] Patient Name: ЕКАТЕРИНА SWEENEY MRN: [id number] date: 1995 Sex: F Assigned Patient Location: [facility] Current Patient Location: US Accession/Order Number: [id number] Exam Date: 02/03/2024 14:20 Report Date: 02/04/2024 07:36 At the request of: BRIA BALES Procedure: US OB growth EXAMINATION: US OB growth HISTORY: HISTORY OF OLIGOHYDRAMINOS Z87.59 COMPARISON: No relevant comparison available. FINDINGS: Heart Rate: 135.0 bpm Amniotic Fluid Volume: 24.5 cm Number: 1.0 Position: CEPHALIC Maximum Vertical Pocket: 4.3 cm cm 7.1 cm cm 6.6 cm cm 6.4 cm cm BIOMETRY: BPD: 8.8 cm cm; 35 weeks 5 days; 51% HC: 32.7 cmcm; 37 weeks 1 days , 47% AC: 32.7 cm cm; 36 weeks 4 days, 77% FL: 6.6 cm cm; 34 weeks 1 days; 8.1 % % EFW: 2813.1 grams, 6 lbs. 3 oz., 50% FL/AC: 20.3 FL/BPD: 75.1 HC/AC: 1.0 GESTATIONAL AGE: Age by EDC: 36 weeks 0 days GOOD by EDC: 03/02/2024 Age by US: 35 weeks 6 days GOOD by US: 03/03/2024 US/US OB growth IMPRESSION: Normal interval growth Electronically authenticated by: ALFA TEJEDA Date: 02/04/2024 07:36 Dictated By: Alfa Tejeda M.D. Signed By:02/04/24 0739 DD/ 0736 TD/TT: Human Resources Trainer: Bria Bales DO [facility] Final Result documented in this encounter Visit Diagnoses Not on filedocumented in this encounter Additional Health Concerns Active Problems Noted Date Diagnosed Date OB Reminders 07/11/2023 documented as of this encounter Care Teams Supervisor Files Relationship Specialty Start Date End Date Bria Bales DO [address] [place] [address] [place] [address] PCP - [facility] 01/13/24 documented as of this encounter
--- OUTSIDE RECORDS SUMMARY | 2025-05-25 12:04 | XMS_ITS | Encounter Summary ---
Author Organization [facility] Address [address] [place] [address] Care Team Providers Care Dermatological Surgeon Name Role Phone Bria Bales DO Unavailable Encounter Details Date Type Department Care Team (Late st Contact Info) Description 10/16/2023 External Result Encounter [facility] [address] [place] [address] Bria Bales DO [address] [place], [facility]11 Social History Tobacco Use Types [...] [facility] [address] [address] [place] [address] 06/22/2025 9:50 AM EDT Routine [facility] [address] [place] [address] Bria Bales DO [address] [place] [address] documented as of this encounter Goals Goal Patient Goal Type Associated Problems Recent Progress Patient-Stated? Author Reminders Care Plan OB Reminders No Open Scheduling, Background documented as of this encounter Procedures Procedure Name Priority Date/Time Associated Diagnosis Comments US OB 14+ WEEKS ANATOMY SCAN 10/16/2023 1:39 PM EST documented in this encounter Results * US OB 14+ weeks anatomy scan (10/16/2023 1:39 PM EST) Anatomical Region Laterality Modality Body Ultrasound 10/16/2023 1:39 PM EST Narrative 10/16/2023 1:39 PM EST THIS EXAM WAS PERFORMED AT [facility] REPORT (Signed Final 10/16/2023 13:39) PATIENT INFO: ID #: [id number] : [birth year] (28 yrs)(F) Name: ЕКАТЕРИНА OLIVEROS KOKO Visit Date: 10/16/2023 12:37 PERFORMED BY: Attending: Haseeb Nice MD, [facility] Performed By: Marion Shabazz RDMS Referred By: Bria Bales DO Ref. Address: [address] [place] [address] 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 Cord Insertion: Eccentric (>2cm from edge) Amniotic Fluid AVERY FV: Subjectively within normal limits BIOMETRY: BPD: 47.9 mm G.Age: 20w 3d 58 % OFD: 63.4 mm HC: 177.2 mm G.Age: 20w 1d 37 % AC: 158.2 mm G.Age: 21w 0d 66 % FL: 33.8 mm G.Age: 20w 4d 54 % HUM: 30.7 mm G.Age: 20w 1d 48 % CER: 21.6 mm G.Age: 20w 3d 67 % NFT: 3.99 mm NB: 7.23 mm 61 % > 1 MoM LV: 5.7 mm CM: 4.2 mm IOD: 10.8 mm G.Age: 17w 1d 28 % OOD: 30.6 mm G.Age: 18w 5d 30 % TIB: 29 mm G.Age: 20w 4d 61 % CI: 75.6 % 70 - 86 FL/HC: 19.1 % 16.8 - 19.8 HC/AC: 1.12 1.09 - 1.39 FL/BPD: 70.6 % FL/AC: 21.4 % 20 - 24 Est. FW: 373 g 0 lb 13 oz 70 % m OB HISTORY: : 2 Aditya: 1 SAB: 2 GESTATIONAL AGE: LMP: 22w 1d Date: 05/14/23 GOOD: 02/18/24 U/S Today: 20w 4d GOOD: 02/29/24 Best: 20w 2d Det. By: Early GOOD: 03/02/24 Ultrasound (07/11/23) TARGETED ANATOMY: Central Nervous System Calvarium/Cranial V.: Appears normal Intracranial Tamie: Appears normal Cavum: Appears normal Parenchyma: Appears Normal Lateral Ventricles: Appears normal Choroid Plexus: Appears normal Cereb./Vermis: Appears normal Cisterna Magna: Appears normal Midline Falx: Appears Normal Spine Cervical: Appears normal Thoracic: Appears normal Lumbar: Appears normal Sacral: Appears normal Head/Neck Face: Appears normal Lips: Appears normal Neck: Appears normal Nuchal Fold: Appears normal Nasal Bone: Present Profile: Appears normal Orbits/Eyes: Appears normal Mandible: Appears Normal Maxilla: Appears normal Thorax Thoracic Contour: Appears normal Lungs: Appears normal 4 Chamber View: Not well visualized Cardiac Activity: Appears Normal Cardiac Rhythm: Normal Cardiac Situs: Appears normal Rt Outflow Tract: Appears normal Lt Outflow Tract: Appears normal Aortic Arch: Appears normal Ductal Arch: Not well visualized SVC: Appears Normal Interventr. Septum: Not well visualized Cardiac [place]: Appears normal Diaphragm: Not well visualized 3 Vessel View: Not well visualized 3 V Trachea View: Not well visualized IVC: Appears normal Crossing: Could not document Abdomen Ventral Wall: Appears normal Cord Insertion: Appears normal Situs: Appears normal Stomach: Appears normal Lt Kidney: Appears normal Rt Kidney: Appears normal Bladder: Appears normal Bowel: Appears normal Extremities Lt Humerus: Appears normal Rt Humerus: Appears normal Lt Forearm: Appears normal Rt Forearm: Appears normal Lt Hand: Appears normal Rt Hand: Appears normal Lt Femur: Appears normal Rt Femur: Appears normal Lt Lower Leg: Appears normal Rt Lower Leg: Appears normal Lt Foot: Appears normal Rt Foot: Appears normal Other Umbilical Cord: Appears normal Masses: None visualized Genitalia: Female CERVIX UTERUS ADNEXA: Cervix Length: 4 cm. Appears closed, without funnelling Uterus Gravid uterus Right Ovary Not visualized Left Ovary Not visualized Adnexa No adnexal masses identified COMMENTS: 1. Ultrasound is not diagnostic for chromosomal abnormalities, will not detect all structural abnormalities, and is not diagnostic for genetic disorders even if multiple exams are performed during a given . 2. In addition to the trans abdominal approach, a trans vaginal ultrasound was also performed to optimize the visualization of the lower uterine segment and the cervix. 3. anatomic survey is incomplete due to position. Haseeb Nice MD, [facility] Electronically Signed Final Report 10/16/2023 13:39 IMPRESSION: 1. Single intrauterine , size consistent with assigned GOOD. 2. Transvaginal Cervical Length = 4 cm. RECOMMENDATIONS: 1. Please see [facility] consultation documentation from today's encounter. 2. Patient is scheduled in four weeks to complete the anatomic survey. 3. Subsequent follow up or other follow up as clinically determined by primary OB provider unless otherwise specified by [facility]. 4. Results forwarded to ordering provider so they can follow up with the patient as necessary. The copy-to physician of this order is BRIA Munoz The ordering physician of this order is CLAUDETTE Sanches Procedure Note Radiology, Radiologist, - 10/16/2023 THIS EXAM WAS PERFORMED AT [facility] REPORT (Signed Final 10/16/2023 13:39) PATIENT INFO: ID #: [id number] : [birth year] (28 yrs)(F) Name: ЕКАТЕРИНА SWEENEY Visit Date: 10/16/2023 12:37 PERFORMED BY: Attending: Haseeb Nice MD, [facility] Performed By: Marion Shabazz RDMS Referred By: Bria Bales DO Ref. Address: [address] [place] [address] 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 Cord Insertion: Eccentric (>2cm from edge) Amniotic Fluid AVERY FV: Subjectively within normal limits BIOMETRY: BPD: 47.9 mm G.Age: 20w 3d 58 % OFD: 63.4 mm HC: 177.2 mm G.Age: 20w 1d 37 % AC: 158.2 mm G.Age: 21w 0d 66 % FL: 33.8 mm G.Age: 20w 4d 54 % HUM: 30.7 mm G.Age: 20w 1d 48 % CER: 21.6 mm G.Age: 20w 3d 67 % NFT: 3.99 mm NB: 7.23 mm 61 % > 1 MoM LV: 5.7 mm CM: 4.2 mm IOD: 10.8 mm G.Age: 17w 1d 28 % OOD: 30.6 mm G.Age: 18w 5d 30 % TIB: 29 mm G.Age: 20w 4d 61 % CI: 75.6 % 70 - 86 FL/HC: 19.1 % 16.8 - 19.8 HC/AC: 1.12 1.09 - 1.39 FL/BPD: 70.6 % FL/AC: 21.4 % 20 - 24 Est. FW: 373 g 0 lb 13 oz 70 % m OB HISTORY: : 2 Aditya: 1 SAB: 2 GESTATIONAL AGE: LMP: 22w 1d Date: 05/14/23 GOOD: 02/18/24 U/S Today: 20w 4d GOOD: 02/29/24 Best: 20w 2d Det. By: Early GOOD: 03/02/24 Ultrasound (07/11/23) TARGETED ANATOMY: Central Nervous System Calvarium/Cranial V.: Appears normal Intracranial Tamie: Appears normal Cavum: Appears normal Parenchyma: Appears Normal Lateral Ventricles: Appears normal Choroid Plexus: Appears normal Cereb./Vermis: Appears normal Cisterna Magna: Appears normal Midline Falx: Appears Normal Spine Cervical: Appears normal Thoracic: Appears normal Lumbar: Appears normal Sacral: Appears normal Head/Neck Face: Appears normal Lips: Appears normal Neck: Appears normal Nuchal Fold: Appears normal Nasal Bone: Present Profile: Appears normal Orbits/Eyes: Appears normal Mandible: Appears Normal Maxilla: Appears normal Thorax Thoracic Contour: Appears normal Lungs: Appears normal 4 Chamber View: Not well visualized Cardiac Activity: Appears Normal Cardiac Rhythm: Normal Cardiac Situs: Appears normal Rt Outflow Tract: Appears normal Lt Outflow Tract: Appears normal Aortic Arch: Appears normal Ductal Arch: Not well visualized SVC: Appears Normal Interventr. Septum: Not well visualized Cardiac [place]: Appears normal Diaphragm: Not well visualized 3 Vessel View: Not well visualized 3 V Trachea View: Not well visualized IVC: Appears normal Crossing: Could not document Abdomen Ventral Wall: Appears normal Cord Insertion: Appears normal Situs: Appears normal Stomach: Appears normal Lt Kidney: Appears normal Rt Kidney: Appears normal Bladder: Appears normal Bowel: Appears normal Extremities Lt Humerus: Appears normal Rt Humerus: Appears normal Lt Forearm: Appears normal Rt Forearm: Appears normal Lt Hand: Appears normal Rt Hand: Appears normal Lt Femur: Appears normal Rt Femur: Appears normal Lt Lower Leg: Appears normal Rt Lower Leg: Appears normal Lt Foot: Appears normal Rt Foot: Appears normal Other Umbilical Cord: Appears normal Masses: None visualized Genitalia: Female CERVIX UTERUS ADNEXA: Cervix Length: 4 cm. Appears closed, without funnelling Uterus Gravid uterus Right Ovary Not visualized Left Ovary Not visualized Adnexa No adnexal masses identified COMMENTS: 1. Ultrasound is not diagnostic for chromosomal abnormalities, will not detect all structural abnormalities, and is not diagnostic for genetic disorders even if multiple exams are performed during a given . 2. In addition to the trans abdominal approach, a trans vaginal ultrasound was also performed to optimize the visualization of the lower uterine segment and the cervix. 3. anatomic survey is incomplete due to position. Haseeb Nice MD, [facility] Electronically Signed Final Report 10/16/2023 13:39 IMPRESSION: 1. Single intrauterine , size consistent with assigned GOOD. 2. Transvaginal Cervical Length = 4 cm. RECOMMENDATIONS: 1. Please see [facility] consultation documentation from today's encounter. 2. Patient is scheduled in four weeks to complete the anatomic survey. 3. Subsequent follow up or other follow up as clinically determined by primary OB provider unless otherwise specified by [facility]. 4. Results forwarded to ordering provider so they can follow up with the patient as necessary. The copy-to physician of this order is BRIA Munoz The ordering physician of this order is CLAUDETTE Sanches us Bria Bales DO IMG OB US PROCEDURES Final Resul t documented in this encounter Visit Diagnoses Not on filedocumented in this encounter Additional Health Concerns Active Problems Noted Date Diagnosed Date OB Reminders 07/11/2023 documented as of this encounter Care Teams Dermatological Surgeon Relationship Specialty Start Date End Date Bria Bales DO [address] [place] [address] PCP - [facility] 01/13/24 documented as of this encounter
--- OUTSIDE RECORDS SUMMARY | 2025-05-25 12:04 | XMS_ITS | Encounter Summary ---
Author Organization [facility] Address [address] [place] [address] Care Team Providers Care Crm Marketing Analyst Name Role Phone Marco Bales DO Unavailable Encounter Details Date Type Department Care Team (Late st Contact Info) Description 08/29/2023 Abstract [facility] [address] [address] [place] [address] Marco Bales DO [address] [place], [facility]11 Social History Tobacco Use Types Packs/Day Years Used Date Smoking Tobacco: Never Assessed Comments Yes Sex and Gender Information Value Date Recorded Sex Assigned at Female 08/07/2023 4:28 PM EDT Legal Sex Female 6:42 PM EDT Gender Identity Female 08/07/2023 4:28 PM EDT Sexual Orientation Straight 08/07/2023 4: 28 PM EDT COVID-19 Exposure Response Date Recorded In the last 10 days, have yo u been in contact with someone who was confirmed or suspected to have Coronavirus/COVID-19? No / Unsure 08/07/2023 4:32 PM EDT documented as of this encounter Plan of Treatment Upcoming Encounters Date Type Department Care Team (Late st Contact Info) Description 06/09/2025 11:00 AM EDT Ancillary Procedure [facility] [address] [place] [address] 06/22/2025 9:50 AM EDT Routine [facility] [address] [place] [address] Marco Bales DO [address] [place] [address] documented as of this encounter Goals Goal Patient Goal Type Associated Problems Recent Progress Patient-Stated? Author Reminders Care Plan OB Reminders No Open Scheduling, Background documented as of this encounter Visit Diagnoses Not on filedocumented in this encounter Additional Health Concerns Active Problems Noted Date Diagnosed Date OB Reminders 07/11/2023 documented as of this encounter Care Teams Crm Marketing Analyst Relationship Specialty Start Date End Date Marco Bales DO [address] [place] [address] PCP - [facility] 01/13/24 documented as of this encounter
--- OUTSIDE RECORDS SUMMARY | 2025-05-25 12:04 | XMS_ITS | Encounter Summary ---
Author Organization [facility] Address [address] [place] [address] Care Team Providers Care Vegetable Packer Name Role Phone Marco Bales DO Unavailable Encounter Details Date Type Department Care Team (Late Contact Info) Description 05/25/2025 Bamboo flowsheet [facility] [address] [place] [address] Marco Bales DO [address], [facility]11 Social History Tobacco Use Types Packs/Day [...] 06/09/2025 11:00 AM EDT [place] [address] 06/22/2025 9:50 AM EDT Routine [facility] [address] [place] [address] Marco Bales DO [address] [place] [address] documented as of this encounter Goals Goal Patient Goal Type Associated Problems Recent Progress Patient-Stated? Author Reminders Care Plan OB Reminders No Open Scheduling, Background documented as of this encounter Visit Diagnoses Not on filedocumented in this encounter Additional Health Concerns Active Problems Noted Date Diagnosed Date OB Reminders 07/11/2023 documented as of this encounter Care Teams Vegetable Packer Relationship Specialty Start Date End Date Marco Bales DO [address] [place] [address] PCP - [facility] 01/13/24 documented as of this encounter
--- OUTSIDE RECORDS SUMMARY | 2025-05-25 12:04 | XMS_ITS | Encounter Summary ---
Author Organization [facility] Address [address] [place] [address] Care Team Providers Care Account Development Executive Name Role Phone Marco Bales DO Unavailable Encounter Details Date Type Department Care Team (Late st Contact Info) Description 10/23/2023 Abstract [facility] [address] [place] [address] Marco Bales DO [address] [place], [facility]11 Social History Tobacco Use Types [...] Ancillary Procedure [facility] [address] [place] [address] 06/22/2025 9:50 AM EDT Routine [facility] [address] [place] [address] Marco Bales DO [address] [place], [facility]11 documented as of this encounter Goals Goal Patient Goal Type Associated Problems Recent Progress Patient-Stated? Author Reminders Care Plan OB Reminders No Open Scheduling, Background documented as of this encounter Visit Diagnoses Not on filedocumented in this encounter Additional Health Concerns Active Problems Noted Date Diagnosed Date OB Reminders 07/11/2023 documented as of this encounter Care Teams Account Development Executive Relationship Specialty Start Date End Date Marco Bales DO [address] [place] [address] [place] [address] PCP - [facility] 01/13/24 documented as of this encounter
--- OUTSIDE RECORDS SUMMARY | 2025-05-25 12:04 | XMS_ITS | Encounter Summary ---
Author Organization [facility] Address [address] [place] [address] Care Team Providers Care Crude Tester Name Role Phone Marco Bales DO Unavailable Encounter Details Date Type Department Care Team (Late st Contact Info) Description 02/17/2024 Abstract [facility] [address] [place] [address] Marco Bales DO [address] [place], [facility]11 Social History Tobacco Use Types Packs/Day Years [...] Ancillary Procedure [facility] [address] [place] [address] 06/22/2025 9:50 AM EDT Routine [facility] [address] [place] [address] Marco Bales DO [address] [place], [facility] documented as of this encounter Goals Goal Patient Goal Type Associated Problems Recent Progress Patient-Stated? Author Reminders Care Plan OB Reminders No Open Scheduling, Background documented as of this encounter Visit Diagnoses Not on filedocumented in this encounter Additional Health Concerns Active Problems Noted Date Diagnosed Date OB Reminders 07/11/2023 documented as of this encounter Care Teams Crude Tester Relationship Specialty Start Date End Date Marco Bales DO [address] [place] [address] [place] [address] PCP - [facility] 01/13/24 documented as of this encounter
--- OUTSIDE RECORDS SUMMARY | 2025-05-25 12:04 | XMS_ITS | Clinical Summary ---
Author Organization [employer] Address [id number] [address] [place] [address] Care Team Providers Care Transformation Coach Name Role Phone No Pcp, No Pcp Primary Care Provider Unavailabl e Allergies No known active allergies Medications levothyroxine (SYNTHROID, LEVOTHROID) 100 MCG tablet Take 1 tablet (100 mcg total) by mouth in the morning. Active ondansetron ODT (ZOFRAN ODT) 4 mg disintegrating tablet Dissolve 1 tablet (4 mg total) on tongue every 6 (six) hours as needed for nausea or vomiting. Active vit no.132-hwmw-cnarr acid ( VITAMIN) 27 mg iron- 800 mcg tablet Take 1 tablet by mouth in the morning. Active progesterone (FIRST-PROGESTERON E VGS) 200 mg suppository Insert 1 suppository (200 mg total) into the vagina nightly. Active Social History Tobacco Use Types Packs/Day Years Used Date Smoking Tobacco: Every Day Cigarettes Smokeless Tobacco: Never Tobacco Cessation:Ready to Q uit: Not Asked; Counseling Given: Not Answered Alcohol Use Standard Drinks/Week Comments Not Currently 0 (1 standard drink = 0.6 oz pur e alcohol) Childcare Answer Date Recorded Childcare Unknown 03/23/2019 [...] to get more. Never True 10/16/2023 Comments No Sex and Gender Information Value Date Recorded Sex Assigned at Not on file Legal Sex Female 12:11 PM EDT Gender Identity Not on file Sexual Orientation Not on file Last Filed Vital Signs Vital Sign Reading Time Taken Comments Blood Pressure 109/66 10/16/2023 12:21 PM EST Pulse 79 10/16/2023 12:21 PM EST Temperature - - Respiratory Rate - - Oxygen Saturation - - Inhaled Oxygen Concentration - - Weight 65.3 kg (144 lb) 10/16/2023 12:21 PM EST Height 170.2 cm (5' 7 ) 10/16/2023 12:21 PM EST Body Mass Index 22.55 10/16/2023 12:21 PM EST Plan of Treatment Health Maintenance Due Date Last Done Comments Tobacco Counseling 1993 Depression Screening 2005 Pap Smear 2014 Adult BMI Screening 10/16/2024 10/16/2023 Tobacco Screening 10/16/2024 10/16/2023 Influenza Vaccine 06/14/2025 DTaP,Tdap and Td Vaccines (9 - Td or Tdap) 10/20/2032 10/20/2022, 03/12/2012, 10/11/2005, Additional history exists Medical Devices Not on file Insurance [employer] Care Teams Transformation Coach Relationship Specialty Start Date End Date No Pcp, [place] [address] PCP - General Family Medicine 10/29/23
--- OUTSIDE RECORDS SUMMARY | 2025-05-25 12:04 | XMS_ITS | Encounter Summary ---
Author Organization [facility] Address [address] [place] [address] Care Team Providers Care Metal Roaster Name Role Phone Bria Bales DO Unavailable Encounter Details Date Type Department Care Team (Late st Contact Info) Description 02/10/2024 Clinisync Result Encounter NOMS External Department Unsolicited Bria Bales, DO [address] [place], [facility]11 Social History Tobacco Use Types Packs/Day [...] Procedure NOMS Shawn DIETZ [address] [place] [phone] 06/22/2025 9:50 AM EDT Routine NOMS Shawn DIETZ [address] [place] [address] Bria Bales DO [address] [place], [place] [phone] documented as of this encounter Goals Goal Patient Goal Type Associated Problems Recent Progress Patient-Stated? Author Reminders Care Plan OB Reminders No Open Scheduling, Background documented as of this encounter Procedures Procedure Name Priority Date/Time Associated Diagnosis Comments US OB BPP W NON-STRESS 02/10/2024 2:55 PM EDT documented in this encounter Results * US OB BPP W NON-STRESS (02/10/2024 2:55 PM EDT) Anatomical Region Laterality Modality Other 02/10/2024 2:55 PM EDT Narrative 02/10/2024 2:57 [place] [address] Ultrasound Report Signed Patient: JERAMY SWEENEY MR#: [id number] : 1995 Acct:[id number] Age/Sex: 28 / F ADM Date: 02/10/24 Loc: US Attending Dr: Bria Bales D.O. Ordering Physician: Bria Bales D.O. Date of Service: 02/10/24 Procedure(s): US OB BPP w non-stress Accession Number(s): [id number] cc: Bria Bales D.O.; Physician,Non-Staff M.DTammie [facility] [place] [id number] Patient Name: JERAMY SWEENEY MRN: [id number] date: 1995 Sex: F Assigned Patient Location: US Current Patient Location: US Accession/Order Number: [id number] Exam Date: 02/10/2024 13:59 Report Date: 02/10/2024 14:55 At the request of: BRIA BALES Procedure: US OB BPP w non-stress EXAMINATION: US OB BPP w non-stress HISTORY: HISTORY OF MISCARRIAGE Z87.59, HISTORY OF OLIGOHYDRAMNIOS COMPARISON: Ultrasound OB biophysical 02/03/2024 TECHNIQUE: Ultrasound biophysical profile was performed in the radiology department. BREATHING MOVEMENTS: 2 GROSS BODY MOVEMENTS: 2 TONE: 2 QUALITATIVE AMNIOTIC FLUID VOLUME: 2 PRESENTATION: CEPHALIC HEART RATE: 145.2 bpm bpm. AMNIOTIC FLUID VOLUME: 19.6 cm GESTATIONAL AGE: 37 weeks 0 days CONCLUSION: Total biophysical profile score 8. Electronically authenticated by: EFREN VENTURA Date: 02/10/2024 14:55 Dictated By: Efren Ventura M.D. Signed By: 02/10/24 1457 DD/ 1455 TD/TT: Pharmacy Informaticist: Procedure Note Radiology, Radiologist, MD - 02/10/2024 [place] [address] Ultrasound Report Signed Patient: JERAMY SWEENEY RMR#: [id number] : 1995Acct:[id number] Age/Sex: 28 / FADM Date: 02/10/24 Loc: US Attending Dr: Bria Bales D.O. Ordering Physician: Bria Bales D.O. Date of Service: 02/10/24 Procedure(s): US OB BPP w non-stress Accession Number(s): [id number] cc: Bria Bales D.O.; Physician,Non-Staff Lalit [facility] [place] [id number] Patient Name: JERAMY SWEENEY MRN: [id number] date: 1995 Sex: F Assigned Patient Location: US Current Patient Location: US Accession/Order Number: [id number] Exam Date: 02/10/2024 13:59 Report Date: 02/10/2024 14:55 At the request of: BRIA BALES Procedure: US OB BPP w non-stress EXAMINATION: US OB BPP w non-stress HISTORY: HISTORY OF MISCARRIAGE Z87.59, HISTORY OF OLIGOHYDRAMNIOS COMPARISON: Ultrasound OB biophysical 02/03/2024 TECHNIQUE: Ultrasound biophysical profile was performed in the radiology department. BREATHING MOVEMENTS: 2 GROSS BODY MOVEMENTS: 2 TONE: 2 QUALITATIVE AMNIOTIC FLUID VOLUME: 2 PRESENTATION: CEPHALIC HEART RATE: 145.2 bpm bpm. AMNIOTIC FLUID VOLUME: 19.6 cm GESTATIONAL AGE: 37 weeks 0 days CONCLUSION: Total biophysical profile score 8. Electronically authenticated by: EFREN VENTURA Date: 02/10/2024 14:55 Dictated By: Efren Ventura M.D. Signed By:02/10/24 1457 DD/ 1455 TD/TT: Pharmacy Informaticist: us Bria Bales DO [facility] Final Result documented in this encounter Visit Diagnoses Not on filedocumented in this encounter Additional Health Concerns Active Problems Noted Date Diagnosed Date OB Reminders 07/11/2023 documented as of this encounter Care Teams Metal Roaster Relationship Specialty Start Date End Date Bria Bales DO [address] [place] [address] PCP - [facility] 01/13/24 documented as of this encounter
--- OUTSIDE RECORDS SUMMARY | 2025-05-25 12:04 | XMS_ITS | Encounter Summary ---
Author Organization [facility] Address [address] [place] [address] Care Team Providers Care Pickle Pumper Name Role Phone Bria Bales DO Unavailable Encounter Details Date Type Department Care Team (Late st Contact Info) Description 12/16/2023 Clinisync Result Encounter NOMS External Department Unsolicited Bria Bales, DO [address], [facility]11 Social History Tobacco Use Types Packs/Day [...] Procedure NOMS Shawn DIETZ [address] [place] [phone] 06/22/2025 9:50 AM EDT Routine NOMS Shawn DIETZ [address] [place] [address] Bria Bales DO [address] [place], [place] [phone] documented as of this encounter Goals Goal Patient Goal Type Associated Problems Recent Progress Patient-Stated? Author Reminders Care Plan OB Reminders No Open Scheduling, Background documented as of this encounter Procedures Procedure Name Priority Date/Time Associated Diagnosis Comments US OB BPP W NON-STRESS 12/16/2023 2:30 PM EST documented in this encounter Results * US OB BPP W NON-STRESS (12/16/2023 2:30 PM EST) Anatomical Region Laterality Modality Other 12/16/2023 2:30 PM EST Narrative 12/16/2023 2:32 [place] [address] Ultrasound Report Signed Patient: JERAMY SWEENEY MR#: [id number] : 1995 Acct:[id number] Age/Sex: 28 / F ADM Date: 12/16/23 Loc: [facility] 250-[address]: Bria Bales D.O. Ordering Physician: Bria Bales D.O. Date of Service: 12/16/23 Procedure(s): US OB BPP w non-stress Accession Number(s): [id number] cc: Bria Bales D.O.; Physician,Non-Staff M.DTammie [facility] [place] [id number] Patient Name: JERAMY SWEENEY MRN: [id number] date: 1995 Sex: F Assigned Patient Location: [facility] Current Patient Location: [facility] Accession/Order Number: [id number] Exam Date: 12/16/2023 14:05 Report Date: 12/16/2023 14:30 At the request of: BRIA BALES Procedure: US OB BPP w non-stress EXAMINATION: US OB BPP w non-stress HISTORY: HISTORY OF MISCARRIAGE Z87.59 COMPARISON: No relevant comparison available. TECHNIQUE: Ultrasound biophysical profile was performed in the radiology department. non-reactive stress testing was performed by nursing staff in the birthing center. FINDINGS: BREATHING MOVEMENTS: 2.0 GROSS BODY MOVEMENTS: 2.0 TONE: 2.0 QUALITATIVE AMNIOTIC FLUID VOLUME: 2.0 PRESENTATION: BREECH HEART RATE: 147.5 bpm H.B./min AMNIOTIC FLUID VOLUME: 18.5 cm cm GESTATIONAL AGE: 29 weeks 0 days CONCLUSION: Total biophysical profile score: 8.0 Electronically authenticated by: ALFA TEJEDA Date: 12/16/2023 14:30 Dictated By: Alfa Tejeda M.D. Signed By: 12/16/23 1432 DD/ 143 TD/TT: Hot Metal Car Operator: Procedure Note Radiology, Radiologist, MD - 12/18/2023 [place] [address] Ultrasound Report Signed Patient: JERAMY SWEENEY RMR#: [id number] : 1995Acct:[id number] Age/Sex: 28 / FADM Date: 12/16/23 Loc: [facility] 250-[address]: Bria Bales D.O. Ordering Physician: Bria Bales D.O. Date of Service: 12/16/23 Procedure(s): US OB BPP w non-stress Accession Number(s): [id number] cc: Bria Bales D.O.; Physician,Non-Staff Lalit [facility] [place] [id number] Patient Name: JERAMY SWEENEY MRN: [id number] date: 1995 Sex: F Assigned Patient Location: [facility] Current Patient Location: [facility] Accession/Order Number: [id number] Exam Date: 12/16/2023 14:05 Report Date: 12/16/2023 14:30 At the request of: BRIA BALES Procedure: US OB BPP w non-stress EXAMINATION: US OB BPP w non-stress HISTORY: HISTORY OF MISCARRIAGE Z87.59 COMPARISON: No relevant comparison available. TECHNIQUE: Ultrasound biophysical profile was performed in the radiology department. non-reactive stress testing was performed by nursingstaff in the birthing center. FINDINGS: BREATHING MOVEMENTS: 2.0 GROSS BODY MOVEMENTS: 2.0 TONE: 2.0 QUALITATIVE AMNIOTIC FLUID VOLUME: 2.0 PRESENTATION: BREECH HEART RATE: 147.5 bpm H.B./min AMNIOTIC FLUID VOLUME: 18.5 cm cm GESTATIONAL AGE: 29 weeks 0 days CONCLUSION: Total biophysical profile score: 8.0 Electronically authenticated by: ALFA TEJEDA Date: 12/16/2023 14:30 Dictated By: Alfa Tejeda M.D. Signed By:12/16/23 1432 DD/ 1430 TD/TT: Hot Metal Car Operator: us Bria Bales DO [facility] Final Result documented in this encounter Visit Diagnoses Not on filedocumented in this encounter Additional Health Concerns Active Problems Noted Date Diagnosed Date OB Reminders 07/11/2023 documented as of this encounter Care Teams Pickle Pumper Relationship Specialty Start Date End Date Bria Bales DO [address] [place], [place] [address] [address] PCP - [facility] 01/13/24 documented as of this encounter
--- OUTSIDE RECORDS SUMMARY | 2025-05-25 12:04 | XMS_ITS | Encounter Summary ---
Author Organization [facility] Address [address] [place] [address] Care Team Providers Care Donor Services Specialist Name Role Phone Marco Bales DO Unavailable Encounter Details Date Type Department Care Team (Late st Contact Info) Description 02/25/2024 Abstract NOMJovany Omegascar DIETZ [address] [place] [phone] Yolanda Barber CNM [address] [place] [address] Social History Tobacco Use Types Packs/Day Years [...] EDT Ancillary Procedure NOMS Kandace DIETZ [address] [place] [address] 06/22/2025 9:50 AM EDT Routine NOMJovany DIETZ [address] [place] [address] Marco Bales DO [address] [place] [address] documented as of this encounter Goals Goal Patient Goal Type Associated Problems Recent Progress Patient-Stated? Author Reminders Care Plan OB Reminders No Open Scheduling, Background documented as of this encounter Visit Diagnoses Not on filedocumented in this encounter Additional Health Concerns Active Problems Noted Date Diagnosed Date OB Reminders 07/11/2023 documented as of this encounter Care Teams Donor Services Specialist Relationship Specialty Start Date End Date Marco Bales DO [address] [place] [address] [place] [address] PCP - [facility] 01/13/24 documented as of this encounter
--- OUTSIDE RECORDS SUMMARY | 2025-05-25 12:04 | XMS_ITS | Encounter Summary ---
Author Organization [facility] Address [address] [place] [address] Care Team Providers Care Roll On Man Name Role Phone Bria Bales DO Unavailable Encounter Details Date Type Department Care Team (Late st Contact Info) Description 02/04/2024 Clinisync Result Encounter NOMS External Department Unsolicited Bria Bales, DO [address] [place], [facility]11 Social History Tobacco Use Types [...] Procedure [facility]OMS Shawn DIETZ [address] [place] [phone] 06/22/2025 9:50 AM EDT Routine NOMS Shawn DIETZ [address] [place] [address] Bria Bales DO [address] [place], [place] [phone] documented as of this encounter Goals Goal Patient Goal Type Associated Problems Recent Progress Patient-Stated? Author Reminders Care Plan OB Reminders No Open Scheduling, Background documented as of this encounter Procedures Procedure Name Priority Date/Time Associated Diagnosis Comments US OB BPP W NON-STRESS 02/04/2024 7:12 AM EDT documented in this encounter Results * US OB BPP W NON-STRESS (02/04/2024 7:12 AM EDT) Anatomical Region Laterality Modality Other 02/04/2024 7:12 AM EDT Narrative 02/04/2024 7:15 [place] [address] Ultrasound Report Signed Patient: JERAMY SWEENEY MR#: [id number] : 1995 Acct:[id number] Age/Sex: 28 / F ADM Date: 02/03/24 Loc: US Attending Dr: Bria Bales D.O. Ordering Physician: Bria Bales D.O. Date of Service: 02/03/24 Procedure(s): US OB BPP w non-stress Accession Number(s): [id number] cc: rBia Bales D.O.; Physician,Non-Staff M.DTammie [facility] [place] [id number] Patient Name: JERAMY SWEENEY MRN: [id number] date: 1995 Sex: F Assigned Patient Location: US Current Patient Location: Accession/Order Number: [id number] Exam Date: 02/03/2024 14:20 Report Date: 02/04/2024 07:12 At the request of: BRIA BALES Procedure: US OB BPP w non-stress EXAMINATION: US OB BPP w non-stress HISTORY: HISTORY OF OLIGOHYDRAMINOS Z87.59 COMPARISON: No relevant comparison available. TECHNIQUE: Ultrasound biophysical profile was performed in the radiology department. non-reactive stress testing was performed by nursing staff in the birthing center. FINDINGS: BREATHING MOVEMENTS: 2.0 GROSS BODY MOVEMENTS: 2.0 TONE: 2.0 QUALITATIVE AMNIOTIC FLUID VOLUME: 2.0 PRESENTATION: CEPHALIC HEART RATE: 135.0 bpm H.B./min AMNIOTIC FLUID VOLUME: 24.5 cm cm GESTATIONAL AGE: 36 weeks 0 days CONCLUSION: Total biophysical profile score: 8.0 Electronically authenticated by: ALFA TEJEDA Date: 02/04/2024 07:12 Dictated By: Alfa Tejeda M.D. Signed By: 02/04/24714 DD/ 1 TD/TT: Staple Cutter: Procedure Note Radiology, Radiologist, MD - 02/04/2024 [place] [address] Ultrasound Report Signed Patient: JERAMY SWEENEY RMR#: [id number] : 1995Acct:[id number] Age/Sex: 28 / FADM Date: 02/03/24 Loc: US Attending Dr: Bria Bales D.O. Ordering Physician: Bria Bales D.O. Date of Service: 02/03/24 Procedure(s): US OB BPP w non-stress Accession Number(s): [id number] cc: Bria Bales D.O.; Physician,Non-Staff Lalit [facility] [place] [id number] Patient Name: JERAMY SWEENEY MRN: [id number] date: 1995 Sex: F Assigned Patient Location: US Current Patient Location: Accession/Order Number: [id number] Exam Date: 02/03/2024 14:20 Report Date: 02/04/2024 07:12 At the request of: BRIA BALES Procedure: US OB BPP w non-stress EXAMINATION: US OB BPP w non-stress HISTORY: HISTORY OF OLIGOHYDRAMINOS Z87.59 COMPARISON: No relevant comparison available. TECHNIQUE: Ultrasound biophysical profile was performed in the radiology department. non-reactive stress testing was performed by nursingstaff in the birthing center. FINDINGS: BREATHING MOVEMENTS: 2.0 GROSS BODY MOVEMENTS: 2.0 TONE: 2.0 QUALITATIVE AMNIOTIC FLUID VOLUME: 2.0 PRESENTATION: CEPHALIC HEART RATE: 135.0 bpm H.B./min AMNIOTIC FLUID VOLUME: 24.5 cm cm GESTATIONAL AGE: 36 weeks 0 days CONCLUSION: Total biophysical profile score: 8.0 Electronically authenticated by: ALFA TEJEDA Date: 02/04/2024 07:12 Dictated By: Alfa Tejeda M.D. Signed By:02/04/2415 DD/ 1 TD/TT: Staple Cutter: us Bria Bales DO [facility] Final Result documented in this encounter Visit Diagnoses Not on filedocumented in this encounter Additional Health Concerns Active Problems Noted Date Diagnosed Date OB Reminders 07/11/2023 documented as of this encounter Care Teams Roll On Man Relationship Specialty Start Date End Date Bria Bales DO [address] [place] [address] PCP - [facility] 01/13/24 documented as of this encounter
--- OUTSIDE RECORDS SUMMARY | 2025-05-25 12:04 | XMS_ITS | Encounter Summary ---
Author Organization [facility] Address [address] [place] [address] Care Team Providers Care Linux Programmer Name Role Phone Marco Bales DO Unavailable Encounter Details Date Type Department Care Team (Late st Contact Info) Description 10/29/2023 Abstract NOMJovany DIETZ [address] [place] [address] Ailin Huston LPN [address] [place] [facility]11 Social History Tobacco Use Types Packs/Day [...] EDT Ancillary Procedure NOMS Kandace DIETZ [address] [place] [address] 06/22/2025 9:50 AM EDT Routine NOMJovany DIETZ [address] [place] [address] Marco Bales DO [address] [place], [place] [phone] documented as of this encounter Goals Goal Patient Goal Type Associated Problems Recent Progress Patient-Stated? Author Reminders Care Plan OB Reminders No Open Scheduling, Background documented as of this encounter Visit Diagnoses Not on filedocumented in this encounter Additional Health Concerns Active Problems Noted Date Diagnosed Date OB Reminders 07/11/2023 documented as of this encounter Care Teams Linux Programmer Relationship Specialty Start Date End Date Marco Bales DO [address] [place] [address] [place] [address] PCP - [facility] 01/13/24 documented as of this encounter
--- OUTSIDE RECORDS SUMMARY | 2025-05-25 12:05 | XMS_ITS | Encounter Summary ---
Author Organization [facility] Address [address] [place] [address] Care Team Providers Care Circular Knitter Helper Name Role Phone Marco Bales DO Unavailable Encounter Details Date Type Department Care Team (Late st Contact Info) Description 09/17/2023 Abstract NOMJovany DIETZ [address] [place] [address] Marco Bales DO [address] [place], [facility]11 Social History Tobacco Use Types Packs/Day [...] Ancillary Procedure NOMJovany DIETZ [address] [place] [address] 06/22/2025 9:50 AM EDT Routine NOMJovany DIETZ [address] [place] [address] Marco Bales DO [address] [place], [facility]11 documented as of this encounter Goals Goal Patient Goal Type Associated Problems Recent Progress Patient-Stated? Author Reminders Care Plan OB Reminders No Open Scheduling, Background documented as of this encounter Visit Diagnoses Not on filedocumented in this encounter Additional Health Concerns Active Problems Noted Date Diagnosed Date OB Reminders 07/11/2023 documented as of this encounter Care Teams Circular Knitter Helper Relationship Specialty Start Date End Date Marco Bales DO [address] [place] [address] [place] [address] PCP - [facility] 01/13/24 documented as of this encounter
--- OUTSIDE RECORDS SUMMARY | 2025-05-25 12:05 | XMS_ITS | Encounter Summary ---
Author Organization [facility] tem Address [id number] [address] [place] [address] Care Team Providers Care Informatics Analyst Name Role Phone No Pcp, No Pcp Primary Care Provider Unavailabl e Encounter Details Date Type Department Care Team (Late st Contact Info) Description 12/12/2016 Telephone Maternal- Medicine at [facility] [address] [place] [address] Rachelle Mullen LPN Social History Tobacco Use Types Packs/Day Years Used Date Smoking Tobacco: Never Assessed Comments Unknown Sex and Gender Information Value Date Recorded Sex Assigned at Not on file Legal Sex Female 12:11 PM EDT Gender Identity Not on file Sexual Orientation Not on file documented as of this encounter Plan of Treatment Not on file documented as of this encounter Visit Diagnoses Not on filedocumented in this encounter Care Teams Informatics Analyst Relationship Specialty Start Date End Date No Pcp, [place] [address] PCP - General Family Medicine 10/29/23 documented as of this encounter
[2025-05-27 14:11] LABS: Age Gdln ACOG Testing Note (.); IGP, Aptima HPV, rfx 16/18,45 Note (.)
== END 2025-05-25 12:00 | disposition home or self-care (01) ==
LOC: LAB 11:59
PROVIDERS: Visit Provider Obstetrics & Gynecology
DX: Z01.419 Encounter for gynecological examination (general) (routine) without abnormal findings (principal)
CPT/HCPCS: 87624; 88175

== ENCOUNTER 2025-06-09 10:37 | Outpatient (OUT) | payer OTHER, SELFPAY ==
--- OUTSIDE RECORDS SUMMARY | 2017-10-09 07:55 | XMS_ITS | Continuity of Care Document ---
Author Organization [facility] Address [address] [place] [address] Phone Care Team Providers Care Amphibious Operations Officer Name Role Phone Jason Johnston MD Unavailable [...] VISIT, EST ODH SPECIMEN HANDLING (GC/CHLAMYDIA) Sep [facility] MEDICAID OFFICE/OUTPATIENT VISIT, EST OFFICE/OUTPATIENT VISIT, EST OFFICE/OUTPATIENT VISIT, EST Nexplanon 68mg Implant INSERT DRUG IMPLANT DEVICE [facility] MEDICAID Depo Provera 1 Ml URINE TEST Condoms OFFICE/OUTPATIENT VISIT, EST URINE TEST OFFICE/OUTPATIENT VISIT, EST ROUTINE VENIPUNCTURE HIV-1 OFFICE/OUTPATIENT VISIT, EST ODH ROCEPHIN 250 MG (PER DOSE) 11 OFFICE/OUTPATIENT VISIT, NEW ROUTINE VENIPUNCTURE ODH SPECIMEN HANDLING (GC/CHLAMYDIA) Jun URINE TEST HIV-1 OFFICE/OUTPATIENT VISIT, EST Medrxyprogester acetate inj OFFICE/OUTPATIENT VISIT, EST Medrxyprogester acetate inj OFFICE/OUTPATIENT VISIT, EST Medrxyprogester acetate inj [facility] MEDICAID URINE TEST SPECIMEN HANDLING Condoms Medroxyprogesterone Acetate 104 mg injec tion OFFICE/OUTPATIENT VISIT, EST Medroxyprogesterone Acetate 104 mg injec tion OFFICE/OUTPATIENT VISIT, EST URINE TEST Medrxyprogester acetate inj [facility] MEDICAID Condoms Medrxyprogester acetate inj URINALYSIS, NONAUTO W/SCOPE URINE TEST SPECIMEN HANDLING Advance Directives Directive Yes / No Effective Date File Name No Information Encounters Encounter Description Practice Location Reason(s) For Visit Diagnoses Date Provider Providers Copied on Encounter [facility], [address] [place], [place], [id number], [place] tel:[phone] [facility] No Information 7 Preston Gomez. [address] [place], [place], [address], [place]. tel:[phone] [facility], [address] [place], [place], [address], [place] tel:[phone] [facility] Consult with Dr. Jiménez (chief complaint) No Information 4 [facility] Jaz. [address] [place], [place], [address], [place]. tel:[phone] [facility], [address] [place], [place], [address], [place] tel:[phone] [facility] lab result (chief complaint) No Information 4 [facility] Jaz. [address] [place], [place], [address], [place]. tel:[phone] OFFICE/OUTPAT IENT VISIT, [facility], [address] [place], [place], [address], [place] tel:[phone] [facility] Interview (chief complaint) No Information 4 [facility] Jaz. [address] [place], [place], [address], [place]. tel:[phone] OFFICE/OUTPAT IENT VISIT, [facility], [address] [place], [place], [address], [place] tel:[phone] [facility] Test (chief complaint) Supervision of other normal 4 [facility] Jaz. [address] [place], [place], [address], [place]. tel:[phone] [facility], [address] [place], [place], [address], [place] tel:[phone] [facility] Nexplanon removal (chief complaint) Headache 4 Viscodilia Brumfield. [address] [place], [place], [address], [place]. tel:[phone] OFFICE/OUTPAT IENT VISIT, [facility], [address] [place], [place], [address], [place] tel:[phone] [facility] annual visit (chief complaint) Gynecological Examination 3 Jessy Brumfield. [address] [place], [place], [address], [place]. tel:[phone] OFFICE/OUTPAT IENT VISIT, [facility], [address] [place], [place], [address], [place] tel:[phone] [facility] Nexplanon 4 wk check (chief complaint) Surveillance of implantable subdermal contraceptive 3 Crispin Peralta. [address] [place], [place], [address], [place]. tel:[phone] OFFICE/OUTPAT IENT VISIT, [facility], [address] [place], [place], [address], [place] tel:[phone] [facility] Nexplanon (chief complaint) Surveillance of implantable subdermal contraceptive 3 Crispin Peralta. [address] [place], [place], [address], [place]. tel:[phone] [facility], [address] [place], [place], [address], [place] tel:[phone] [facility] No Information 3 Lamp Kathryn. [address] [place], [place], [address], [place]. tel:[phone] OFFICE/OUTPAT IENT VISIT, [facility], [address] [place], [place], [address], [place] tel:[phone] [facility] No Information Dec-0 2 Visci DO Hussein. [address] [place], [place], [address], [place]. tel:[phone] OFFICE/OUTPAT IENT VISIT, [facility], [address] [place], [place], [address], [place] tel:[phone] [facility] Neck Mass (chief complaint) No Information 1 Gisela Garcia. [address] [place], [place], [address], [place]. tel:[phone] OFFICE/OUTPAT IENT VISIT, [facility], [address] [place], [place], [address], [place] tel:[phone] [facility] Gonococcal infection (acute) of lower genitourinary tract Sep-2 1 Visci DO Hussein. [address] [place], [place], [address], [place]. tel:[phone] [facility], [address] [place], [place], [address], [place] tel:[phone] [facility] Gonococcal infection (acute) of lower genitourinary tract Jun- 1 Gisela Garcia. [address] [place], [place], [address], [place]. tel:[phone] OFFICE/OUTPAT IENT VISIT, [facility], [address] [place], [place], [address], [place] tel:[phone] [facility] STI female (chief complaint) Screening examination for venereal disease Sep- 1 Gisela Garcia. [address] [place], [place], [address], [place]. tel:[phone] OFFICE/OUTPAT IENT VISIT, [facility], [address] [place], [place], [address], [place] tel:[phone] [facility] No Information Dec-0 1 Crispin Peralta. [address] [place], [place], [address], [place]. tel:[phone] OFFICE/OUTPAT IENT VISIT, [facility], [address] [place], [place], [address], [place] tel:[phone] [facility] No Information 0 9-201 0 Carlos Leal. [address] [place], [place], [address]. tel:[phone] OFFICE/OUTPAT IENT VISIT, [facility], [address] [facility], [place], [place], [address], [place] tel:[phone] [facility] No Information 6-201 0 Lamp Kathryn. [address] [place], [place], [address], [place]. tel:[phone] [facility], [address] [place], [place], [address], [place] tel:[phone] [facility] No Information 8-201 0 Orville BARN MANAGER Yamilka. [address] [place], [place], [address]. tel:[phone] OFFICE/OUTPAT IENT VISIT, [facility], [address] [place], [place], [address], [place] tel:[phone] [facility] No Information 2 5-201 0 Visci DO Hussein. [address] [place], [place], [address], [place]. tel:[phone] OFFICE/OUTPAT IENT VISIT, [facility], [address] [place], [place], [address], [place] tel:[phone] [facility] No Information 9-200 9 Mawhrocio BARN MANAGER Yamilka. [address] [place], [place], [address]. tel:[phone] [facility], [address] [place], [place], [address], [place] tel:[phone] [facility] No Information 9 No Information Family History [...]
--- OUTSIDE RECORDS SUMMARY | 2025-05-25 09:40 | XMS_ITS | Encounter Summary ---
Author Organization [facility] Address [address] [place] [address] Care Team Providers Care Law Secretary Name Role Phone Marco Bales DO Unavailable Reason for Visit * Reason Comments Routine Visit Well Women Visit STI Screening Encounter Details Date Type Department Care Team (Latest Contact Info) Description 05/25/2025 9:40 AM EDT Routine [facility] [address] [facility] [place] [phone] Marco Bales DO [address] [place], [facility] 18 weeks gestation of ([facility]); Second trimester ([facility]); Well woman exam with routine gynecological exam; Screening, , for anatomic survey ([facility]); Exposure to STD; Vaginal discharge; Thyroid disease [...] documented in this encounter Progress Notes * Deepika Frye, PARI - 05/25/2025 9:40 AM EDT Reason for Appointment: Patient ID: Екатерина Sutherland is a 29 y.o. female who presents for Routine Visit, Well Women Visit, and STI Screening Patient presents today for Annual Exam., STD Check., and Return OB appointment. MEDICATIONS Current Outpatient Medications Medication Instructions levothyroxine (SYNTHROID, LEVOXYL) 100 mcg, Oral, Daily ondansetron ODT (ZOFRAN-ODT) 4 mg, Oral, Every 6 hours PRN Vit-Fe Fumarate-FA (M- Plus) 27-1 MG tablet 1 tablet, Oral, Every morning ALLERGIES No Known Allergies PROBLEMS Active Ambulatory Problems Diagnosis Date Noted Thyroid disease 12/16/2023 History of oligohydramnios 12/16/2023 Anxiety, generalized 12/16/2023 Rectal bleeding 04/09/2024 Resolved Ambulatory Problems Diagnosis Date Noted No Resolved Ambulatory Problems Past Medical History: Diagnosis Date Missed menses Non-compliant patient Smoker HISTORY PAST MEDICAL HISTORY SOCIAL HISTORY Past Medical History: Diagnosis Date Missed menses Non-compliant patient Smoker Thyroid disease Social History Tobacco Use Smoking status: Not on file Smokeless tobacco: Not on file Substance Use Topics Alcohol use: Not on file Drug use: Not on file FAMILY HISTORY No family history on file. SURGICAL HISTORY Past Surgical History: Procedure Laterality Date APPENDECTOMY 2007 REVIEW OF SYSTEMS Review of Systems: Review of Systems Constitutional: Negative. HENT: Negative. Eyes: Negative. Respiratory: Negative. Cardiovascular: Negative. Gastrointestinal: Negative. Genitourinary: Negative. Musculoskeletal: Negative. Skin: Negative. Neurological: Negative. All other systems reviewed and are negative. Hematological: Negative. Endocrine: Negative. Allergic/Immunologic: Negative. OBJECTIVE Objective: Physical Exam Constitutional: Appearance: Normal appearance. She is well-developed. Genitourinary: Vulva normal. Breasts: Breasts are soft. Right: Normal. Left: Normal. Cardiovascular: Rate and Rhythm: Normal rate and regular rhythm. Pulmonary: Effort: Pulmonary effort is normal. Breath sounds: Normal breath sounds. Abdominal: General: Bowel sounds are normal. There is no distension. Palpations: Abdomen is soft. Tenderness: There is no abdominal tenderness. There is no guarding or rebound. Musculoskeletal: General: No swelling. Normal range of motion. Right lower leg: No edema. Left lower leg: No edema. Neurological: Mental Status: She is alert and oriented to person, place, and time. Skin: General: Skin is warm and dry. Psychiatric: Mood and Affect: Mood normal. Behavior: Behavior normal. Vitals and nursing note reviewed. Exam conducted with a associate programmer analyst present. Vitals: Estimated body mass index is 22.4 kg/m?? as calculated from the following: Height as of 04/02/24: 5' 6 . Weight as of this encounter: 138 lb 12.8 oz. BP: 100/60 No LMP recorded. Patient is . ASSESSMENT & PLAN ICD-10-CM 1. 18 weeks gestation of ([facility]) Z3A.18 POCT urinalysis dipstick manually resulted Alpha fetoprotein, maternal Alpha fetoprotein, maternal 2. Second trimester ([facility]) Z34.92 POCT urinalysis dipstick manually resulted Alpha fetoprotein, maternal Alpha fetoprotein, maternal 3. Well woman exam with routine gynecological exam Z01.419 Pap Smear HPV DNA probe, amplified 4. Screening, , for anatomic survey ([facility]) Z36.89 US OB 14+ weeks anatomy scan US OB 14+ weeks anatomy scan 5. Exposure to STD Z20.2 CHLAMYDIA TRACHOMATIS (GENITO/STI) Neisseria gonorrhea DNA probe, direct 6. Vaginal discharge N89.8 SURESWAB(R) ADVANCED VAGINITIS PLUS, TMA 7. Thyroid disease E07.9 TSH TSH Return OB/Annual Exam: Patient presents today for a annual exam/routine obstetrics appointment. Patient is currently [id number]. Pt advised to have labs drawn. Pap and cultures was obtained without difficulty and patient was given orders for anatomy scan and msAFP to be obtained. Orders Placed This Encounter Procedures HPV DNA probe, amplified US OB 14+ weeks anatomy scan CHLAMYDIA TRACHOMATIS (GENITO/STI) Neisseria gonorrhea DNA probe, direct Alpha fetoprotein, maternal TSH POCT urinalysis dipstick manually resulted Follow Up: Patient is to schedule annual exam for next year and return to office in 4 weeks for OB appointment. Documented by Deepika Frye LPN on behalf of: Marco Bales DO documented in this encounter Plan of Treatment Upcoming Encounters Date Type Department Care Team (Late st Contact Info) Description 06/09/2025 11:00 AM EDT Ancillary Procedure [facility] [address] [place] [phone] 06/22/2025 9:50 AM EDT Routine [facility] [address] [place] [phone] Marco Bales DO [address] [place] [address] Scheduled Orders Name Type Priority Associated Diagnoses [...] exam with routine gynecological exam Ordered: 05/25/2025 OB 14+ weeks anatomy scan Imaging Routine Screening, , for anatomic survey ([facility]) Expected: 05/25/2025, Expires: 08/25/2025 Alpha fetoprotein, maternal Lab Routine 18 weeks gestation of ([facility]) Second trimester ([facility]) Expected: 05/25/2025 (Approximate), Expires: 07/25/2025 TSH Lab [...] 10:26 AM EDT 18 weeks gestation of ([facility]) Second trimester ([facility]) documented in this encounter Results * (ABNORMAL) [...] Visit Diagnoses Diagnosis 18 weeks gestation of ([facility]) Second trimester ([facility]) state, incidental Well woman exam with routine gynecological exam Routine gynecological examination Screening, , for anatomic survey ([facility]) Encounter for anatomic survey Exposure to STD Vaginal discharge Leukorrhea, not specified as infective Thyroid disease Unspecified disorder of thyroid documented in this encounter Additional Health Concerns Active Problems Noted Date Diagnosed Date OB Reminders 07/11/2023 documented as of this encounter Care Teams Law Secretary Relationship Specialty Start Date End Date Marco Bales DO [address] [place] [address] [place] [address] PCP - [facility] 01/13/24 documented as of this encounter
--- OUTSIDE RECORDS SUMMARY | 2025-06-09 10:40 | XMS_ITS | Encounter Summary ---
Author Organization [facility] Address [address] [place] [address] Care Team Providers Care Licensed Mass Real Estate Appraiser Name Role Phone Bria Bales DO Unavailable Encounter Details Date Type Department Care Team (Late st Contact Info) Description 02/04/2024 Clinisync Result Encounter NOMS External Department Unsolicited Bria Bales, DO [address] [place], [facility]11 Social History Tobacco Use Types Packs/Day Years [...] Procedure NOMS Shawn DIETZ [address] [place] [phone] 06/22/2025 9:50 AM EDT Routine NOMS Shawn DIETZ [address] [place] [address] Bria Bales DO [address] [place], [place] [phone] documented as of this encounter Goals Goal [...] AM EDT Narrative 02/04/2024 7:15 [place] [address] Ultrasound Report Signed Patient: JERAMY SWEENEY MR#: [id number] : 1995 Acct:[id number] Age/Sex: 28 / F ADM Date: 02/03/24 Loc: US Attending Dr: Bria Bales D.O. Ordering Physician: Bria Bales D.O. Date of Service: 02/03/24 Procedure(s): US OB BPP w non-stress Accession Number(s): [id number] cc: Bria Bales D.O.; Physician,Non-Staff M.DTammie [facility] [place] [id number] Patient Name: JERAMY SWEENEY MRN: [id number] date: 1995 Sex: F Assigned Patient Location: US Current Patient Location: Accession/Order Number: [id number] Exam Date: 02/03/2024 14:20 Report Date: 02/04/2024 [...] M.D. Signed By: 02/04/24714 DD/ 1 TD/TT: Green Pipefitter: Procedure Note Radiology, Radiologist, MD - 02/04/2024 [place] [address] Ultrasound Report Signed Patient: JERAMY SWEENEY RMR#: [id number] : 1995Acct:[id number] Age/Sex: 28 / FADM Date: 02/03/24 Loc: US Attending Dr: Bira Bales D.O. Ordering Physician: Bria Bales D.O. Date of Service: 02/03/24 Procedure(s): US OB BPP w non-stress Accession Number(s): [id number] cc: Bria Bales D.O.; Physician,Non-Staff Lalit [facility] [place] [id number] Patient Name: JERAMY SWEENEY MRN: [id number] date: 1995 Sex: F Assigned Patient Location: US Current Patient Location: Accession/Order Number: [id number] Exam Date: 02/03/2024 14:20 Report Date: 02/04/2024 [...] Tejeda M.D. Signed By:02/04/2415 DD/ 1 TD/TT: Green Pipefitter: us Bria Bales DO [facility] Final Result documented in this encounter Visit Diagnoses Not on filedocumented in this encounter Additional Health Concerns Active Problems Noted Date Diagnosed Date OB Reminders 07/11/2023 documented as of this encounter Care Teams Licensed Mass Real Estate Appraiser Relationship Specialty Start Date End Date Bria Bales DO [address] [place] [address] PCP - [facility] 01/13/24 documented as of this encounter
--- OUTSIDE RECORDS SUMMARY | 2025-06-09 10:40 | XMS_ITS | Encounter Summary ---
Author Organization [facility] Address [address] [place] [address] Care Team Providers Care Venereal Disease Investigator Name Role Phone Bria Bales DO Unavailable Encounter Details Date Type Department Care Team (Late st Contact Info) Description 01/21/2024 Clinisync Result Encounter NOMS External Department Unsolicited Bria Bales, DO [address], [facility]11 Social History Tobacco Use Types Packs/Day [...] Procedure [facility] Shawn DIETZ [address] [place] [phone] 06/22/2025 9:50 AM EDT Routine [facility] Shawn DIETZ [address] [place] [address] Bria Bales DO [address], [place] [address] documented as of this encounter Goals Goal [...] AM EDT Narrative 01/21/2024 7:16 [place] [address] Ultrasound Report Signed Patient: JERAMY SWEENEY MR#: [id number] : 1995 Acct:[id number] Age/Sex: 28 / F ADM Date: 01/20/24 Loc: US Attending Dr: Bria Bales D.O. Ordering Physician: Bria Bales D.O. Date of Service: 01/20/24 Procedure(s): US OB BPP w non-stress Accession Number(s): [id number] cc: Bria Bales D.O.; Physician,Non-Staff M.DTammie The [place] [phone] Patient Name: JERAMY SWEENEY MRN: [id number] date: 1995 Sex: F Assigned Patient Location: [facility] Current Patient Location: Accession/Order Number: [id number] Exam Date: 01/20/2024 19:12 Report Date: 01/21/2024 [...] M.D. Signed By: 01/21/24715 DD/ 2 TD/TT: Coat Checker: Procedure Note Radiology, Radiologist, MD - 01/21/2024 [place] [address] Ultrasound Report Signed Patient: JERAMY SWEENEY RMR#: [id number] : 1995Acct:[id number] Age/Sex: 28 / FADM Date: 01/20/24 Loc: US Attending Dr: Bria Bales D.O. Ordering Physician: Bria Bales D.O. Date of Service: 01/20/24 Procedure(s): US OB BPP w non-stress Accession Number(s): [id number] cc: Bria Bales D.O.; Physician,Non-Staff Lalit The [place] [phone] Patient Name: JERAMY SWEENEY MRN: [id number] date: 1995 Sex: F Assigned Patient Location: [facility] Current Patient Location: Accession/Order Number: [id number] Exam Date: 01/20/2024 19:12 Report Date: 01/21/2024 [...] Tejeda M.D. Signed By:01/21/24715 DD/ 2 TD/TT: Coat Checker: Bria Bales DO [facility] Final Result documented in this encounter Visit Diagnoses Not on filedocumented in this encounter Additional Health Concerns Active Problems Noted Date Diagnosed Date OB Reminders 07/11/2023 documented as of this encounter Care Teams Venereal Disease Investigator Relationship Specialty Start Date End Date Bria Bales DO [facility] [address] [place] [phone] PCP - [facility] 01/13/24 documented as of this encounter
--- OUTSIDE RECORDS SUMMARY | 2025-06-09 10:40 | XMS_ITS | Encounter Summary ---
Author Organization [facility] Address [address] [place] [address] Care Team Providers Care Technical Support Specialist Name Role Phone Bria Bales DO Unavailable Encounter Details Date Type Department Care Team (Late st Contact Info) Description 12/23/2023 Clinisync Result Encounter NOMS External Department Unsolicited Bria Bales, DO [address], [facility]11 Social History Tobacco Use Types [...] [facility] Shawn DIETZ [address] [place] [phone] 06/22/2025 9:50 AM EDT Routine [facility] Shawn DIETZ [address] [place] [address] Bria Bales DO [address], [facility]11 documented as of this encounter Goals [...] PM EDT Narrative 12/23/2023 3:01 [place] [address] Ultrasound Report Signed Patient: JERAMY SWEENEY MR#: [id number] : 1995 Acct:[id number] Age/Sex: 28 / F ADM Date: 12/23/23 Loc: [facility] 250-[address]: Bria Bales D.O. Ordering Physician: Bria Bales D.O. Date of Service: 12/23/23 Procedure(s): US OB BPP w non-stress Accession Number(s): [id number] cc: Bria Bales D.O.; Physician,Non-Staff M.DTammie The [place] [address] Patient Name: JERAMY SWEENEY MRN: [id number] date: 1995 Sex: F Assigned Patient Location: [facility] Current Patient Location: [facility] Accession/Order Number: [id number] Exam Date: 12/23/2023 14:15 Report Date: 12/23/2023 [...] By: Alfa Tejeda M.D. Signed By: 12/23/23 1508 DD/ 1450 TD/TT: Inspector Watch Train: Procedure Note Radiology, Radiologist, MD - 12/23/2023 [place] [address] Ultrasound Report Signed Patient: JERAMY SWEENEY RMR#: [id number] : 1995Acct:[id number] Age/Sex: 28 / FADM Date: 12/23/23 Loc: [facility] 250-[address]: Bria Bales D.O. Ordering Physician: Bria Bales D.O. Date of Service: 12/23/23 Procedure(s): US OB BPP w non-stress Accession Number(s): [id number] cc: Bria Bales D.O.; Physician,Non-Staff Lalit The [place] [phone] Patient Name: JERAMY SWEENEY MRN: [id number] date: 1995 Sex: F Assigned Patient Location: [facility] Current Patient Location: [facility] Accession/Order Number: [id number] Exam Date: 12/23/2023 14:15 Report Date: 12/23/2023 [...] M.D. Signed By:12/23/23 1501 DD/ 1458 TD/TT: Inspector Watch Train: us Bria Bales DO [facility] Final Result documented in this encounter Visit Diagnoses Not on filedocumented in this encounter Additional Health Concerns Active Problems Noted Date Diagnosed Date OB Reminders 07/11/2023 documented as of this encounter Care Teams Technical Support Specialist Relationship Specialty Start Date End Date Bria Bales DO [address] [place] [address] [place] [address] PCP - [facility] 01/13/24 documented as of this encounter
--- OUTSIDE RECORDS SUMMARY | 2025-06-09 10:40 | XMS_ITS | Encounter Summary ---
Author Organization [facility] Address [address] [place] [address] Care Team Providers Care Machine Fur Cleaner Name Role Phone Bria Bales DO Unavailable Encounter Details Date Type Department Care Team (Late st Contact Info) Description 12/30/2023 Clinisync Result Encounter NOM[facility] External Department Unsolicited Bria Bales, DO [address], [facility]11 Social History Tobacco Use Types [...] [facility] Shawn DIETZ [address] [place] [phone] 06/22/2025 9:50 AM EDT Routine [facility] Shawn DIETZ [address] [place] [address] Bria Bales DO [address], [place] [phone] documented as of this encounter Goals Goal [...] PM EDT Narrative 12/30/2023 2:43 [place] [address] Ultrasound Report Signed Patient: JERAMY SWEENEY MR#: [id number] : 1995 Acct:[id number] Age/Sex: 28 / F ADM Date: 12/30/23 Loc: [facility] 250-[address]: Bria Bales D.O. Ordering Physician: Bria Bales D.O. Date of Service: 12/30/23 Procedure(s): US OB BPP w non-stress Accession Number(s): [id number] cc: Bria Bales D.O.; Physician,Non-Staff M.DTammie The [place] [phone] Patient Name: JERAMY SWEENEY MRN: [id number] date: 1995 Sex: F Assigned Patient Location: [facility] Current Patient Location: [facility] Accession/Order Number: [id number] Exam Date: 12/30/2023 14:07 Report Date: 12/30/2023 [...] Signed By: 12/30/23 1443 DD/ 1440 TD/TT: Matrix Drier Tender: Procedure Note Radiology, Radiologist, MD - 12/30/2023 [place] [address] Ultrasound Report Signed Patient: JERAMY SWEENEY RMR#: [id number] : 1995Acct:[id number] Age/Sex: 28 / FADM Date: 12/30/23 Loc: [facility] 250-[address]: Bria Bales D.O. Ordering Physician: Bria Bales D.O. Date of Service: 12/30/23 Procedure(s): US OB BPP w non-stress Accession Number(s): [id number] cc: Bria Bales D.O.; Physician,Non-Staff Lalit The [place] [phone] Patient Name: JERAMY SWEENEY MRN: [id number] date: 1995 Sex: F Assigned Patient Location: [facility] Current Patient Location: [facility] Accession/Order Number: [id number] Exam Date: 12/30/2023 14:07 Report Date: 12/30/2023 [...] M.D. Signed By:12/30/23 1443 DD/ 144 TD/TT: Matrix Drier Tender: us Bria Bales DO [facility] Final Result documented in this encounter Visit Diagnoses Not on filedocumented in this encounter Additional Health Concerns Active Problems Noted Date Diagnosed Date OB Reminders 07/11/2023 documented as of this encounter Care Teams Machine Fur Cleaner Relationship Specialty Start Date End Date Bria Bales DO [facility] [address] [place] [phone] PCP - [facility] 01/13/24 documented as of this encounter
--- OUTSIDE RECORDS SUMMARY | 2025-06-09 10:40 | XMS_ITS | Encounter Summary ---
Author Organization [facility] Address [address] [place] [address] Care Team Providers Care Occupational Therapy Asst Name Role Phone Bria Bales DO Unavailable Encounter Details Date Type Department Care Team (Late st Contact Info) Description 02/04/2024 Clinisync Result Encounter NOMS External Department Unsolicited Bria Bales, DO [address], [facility]11 Social History Tobacco Use Types Packs/Day [...] Procedure [facility] Kandace [address]ETZ [address] [place] [phone] 06/22/2025 9:50 AM EDT Routine [facility] Kandace [address]ETZ [address] [place] [address] Bria Bales DO [address], [place] [address] documented as of this encounter Goals Goal [...] AM EDT Narrative 02/04/2024 7:39 [place] [address] Ultrasound Report Signed Patient: ЕКАТЕРИНА SWEENEY MR#: [id number] : 1995 Acct:[id number] Age/Sex: 28 / F ADM Date: 02/03/24 Loc: US Attending Dr: Bria Bales D.O. Ordering Physician: Bria Bales D.O. Date of Service: 02/03/24 Procedure(s): US OB growth Accession Number(s): [id number] cc: Bria Bales D.O.; Physician,Non-Staff M.DTammie The [address] [address] Patient Name: ЕКАТЕРИНА SWEENEY MRN: [id number] date: 1995 Sex: F Assigned Patient Location: [facility] Current Patient Location: US Accession/Order Number: [id number] Exam Date: 02/03/2024 14:20 Report Date: 02/04/2024 [...] Signed By: 02/04/24 0739 DD/ 0736 TD/TT: Pediatric Licensed Practical Nurse: Procedure Note Radiology, Radiologist, MD - 02/04/2024 [place] [address] Ultrasound Report Signed Patient: ЕКАТЕРИНА SWEENEY RMR#: [id number] : 1995Acct:[id number] Age/Sex: 28 FADM Date: 02/03/24 Loc: US Attending Dr: Bria Bales D.O. Ordering Physician: Bria Bales D.O. Date of Service: 02/03/24 Procedure(s): US OB growth Accession Number(s): [id number] cc: Bria Bales D.O.; Physician,Non-Staff Lalit The [place] [address] Patient Name: ЕКАТЕРИНА SWEENEY MRN: [id number] date: 1995 Sex: F Assigned Patient Location: [facility] Current Patient Location: US Accession/Order Number: [id number] Exam Date: 02/03/2024 14:20 Report Date: 02/04/2024 [...] M.D. Signed By:02/04/24 0739 DD/ 0736 TD/TT: Pediatric Licensed Practical Nurse: Bria Bales DO [facility] Final Result documented in this encounter Visit Diagnoses Not on filedocumented in this encounter Additional Health Concerns Active Problems Noted Date Diagnosed Date OB Reminders 07/11/2023 documented as of this encounter Care Teams Occupational Therapy Asst Relationship Specialty Start Date End Date Bria Bales DO [address] [place] [address] [place] [address] PCP - [facility] 01/13/24 documented as of this encounter
--- OUTSIDE RECORDS SUMMARY | 2025-06-09 10:40 | XMS_ITS | Encounter Summary ---
Author Organization [facility] Address [address] [place] [address] Care Team Providers Care Hospice Consultant Name Role Phone Bria Bales DO Unavailable Encounter Details Date Type Department Care Team (Late st Contact Info) Description 12/09/2023 Clinisync Result Encounter NOMS External Department Unsolicited Bria Bales, DO [address], [facility]11 Social History Tobacco Use Types [...] Procedure [facility] Kandace DIETZ [address] [place] [address] 06/22/2025 9:50 AM EDT Routine [facility] Kandace DIETZ [address] [place] [address] Bria Bales DO [address], [place] [phone] documented as of this encounter Goals Goal [...] PM EST Narrative 12/09/2023 3:22 [place] [address] Ultrasound Report Signed Patient: ЕКАТЕРИНА SWEENEY MR#: [id number] : 1995 Acct:[id number] Age/Sex: 28 / F ADM Date: 12/09/23 Loc: [facility] 250-[address]: Bria Bales D.O. Ordering Physician: Bria Bales D.O. Date of Service: 12/09/23 Procedure(s): US OB growth Accession Number(s): [id number] cc: Bria Bales D.O.; Physician,Non-Staff M.DTammie The [place] [address] Patient Name: ЕКАТЕРИНА SWEENEY MRN: [id number] date: 1995 Sex: F Assigned Patient Location: [facility] Current Patient Location: [facility] Accession/Order Number: [id number] Exam Date: 12/09/2023 14:32 Report Date: 12/09/2023 [...] M.D. Signed By: 12/09/231521 DD/ 19 TD/TT: Inbound Customer Service Representative: Procedure Note Radiology, Radiologist, MD - 12/09/2023 [place] [address] Ultrasound Report Signed Patient: ЕКАТЕРИНА SWEENEY RMR#: [id number] : 1995Acct:[id number] Age/Sex: 28 / FADM Date: 12/09/23 Loc: [facility] 250-[address]: Bria Bales D.O. Ordering Physician: Bria Bales D.O. Date of Service: 12/09/23 Procedure(s): US OB growth Accession Number(s): [id number] cc: Bria Bales D.O.; Physician,Non-Staff Lalit The [place] [phone] Patient Name: ЕКАТЕРИНА SWEENEY MRN: [id number] date: 1995 Sex: F Assigned Patient Location: [facility] Current Patient Location: [facility] Accession/Order Number: [id number] Exam Date: 12/09/2023 14:32 Report Date: 12/09/2023 [...] M.D. Signed By:12/09/23 1522 DD/ 1520 TD/TT: Inbound Customer Service Representative: us Bria Bales DO [facility] Final Result documented in this encounter Visit Diagnoses Not on filedocumented in this encounter Additional Health Concerns Active Problems Noted Date Diagnosed Date OB Reminders 07/11/2023 documented as of this encounter Care Teams Hospice Consultant Relationship Specialty Start Date End Date Bria Bales DO [address] [place] [address] [place] [address] PCP - [facility] 01/13/24 documented as of this encounter
--- OUTSIDE RECORDS SUMMARY | 2025-06-09 10:40 | XMS_ITS | Encounter Summary ---
Author Organization [facility] Address [address] [place] [address] Care Team Providers Care Ell Tutor Name Role Phone Bria Bales DO Unavailable Encounter Details Date Type Department Care Team (Late st Contact Info) Description 12/16/2023 Clinisync Result Encounter NOMS External Department Unsolicited Bria Bales, DO [address], [facility]11 Social History Tobacco Use [...] Procedure [facility] Shawn DIETZ [address] [place] [address] 06/22/2025 9:50 AM EDT Routine N[facility] Shawn DIETZ [address] [place] [address] Bria Bales DO [address], [place] [address] documented as of this encounter Goals Goal [...] EST Narrative 12/16/2023 2:32 [place] [address] Ultrasound Report Signed Patient: JERAMY SWEENEY MR#: [id number] : 1995 Acct:[id number] Age/Sex: 28 / F ADM Date: 12/16/23 Loc: [facility] 250-[address]: Bria Bales D.O. Ordering Physician: Bria Bales D.O. Date of Service: 12/16/23 Procedure(s): US OB BPP w non-stress Accession Number(s): [id number] cc: Bria Bales D.O.; Physician,Non-Staff M.DTammie The [place] [phone] Patient Name: JERAMY SWEENEY MRN: [id number] date: 1995 Sex: F Assigned Patient Location: [facility] Current Patient Location: [facility] Accession/Order Number: [id number] Exam Date: 12/16/2023 14:05 Report Date: 12/16/2023 [...] Signed By: 12/16/23 1432 DD/ 143 TD/TT: Turner And Former Automatic: Procedure Note Radiology, Radiologist, MD - 12/18/2023 [place] [address] Ultrasound Report Signed Patient: JERAMY SWEENEY RMR#: [id number] : 1995Acct:[id number] Age/Sex: 28 / FADM Date: 12/16/23 Loc: [facility] 250-[address]: Bria Bales D.O. Ordering Physician: Bria Bales D.O. Date of Service: 12/16/23 Procedure(s): US OB BPP w non-stress Accession Number(s): [id number] cc: Bria Bales D.O.; Physician,Non-Staff Lalit The [place] [phone] Patient Name: JERAMY SWEENEY MRN: [id number] date: 1995 Sex: F Assigned Patient Location: [facility] Current Patient Location: [facility] Accession/Order Number: [id number] Exam Date: 12/16/2023 14:05 Report Date: 12/16/2023 [...] M.D. Signed By:12/16/23 1432 DD/ 1430 TD/TT: Turner And Former Automatic: us Bria Bales DO [facility] Final Result documented in this encounter Visit Diagnoses Not on filedocumented in this encounter Additional Health Concerns Active Problems Noted Date Diagnosed Date OB Reminders 07/11/2023 documented as of this encounter Care Teams Ell Tutor Relationship Specialty Start Date End Date Bria Bales DO [address] [place], [place] [address] [address] PCP - [facility] 01/13/24 documented as of this encounter
--- OUTSIDE RECORDS SUMMARY | 2025-06-09 10:40 | XMS_ITS | Encounter Summary ---
Author Organization [facility] Address [address] [place] [address] Care Team Providers Care Report Clerk Name Role Phone Bria Bales DO Unavailable Encounter Details Date Type Department Care Team (Late st Contact Info) Description 12/09/2023 Clinisync Result Encounter NOMS External Department Unsolicited Bria Bales, DO [address], [facility] Social History Tobacco Use Types Packs/Day Years [...] [facility]S Shawn DIETZ [address] [place] [address] 06/22/2025 9:50 AM EDT Routine [facility] Shawn DIETZ [address] [place] [address] Bria Bales DO [address], [place] [address] documented as of this encounter Goals Goal [...] EST Narrative 12/09/2023 3:21 [place] [address] Ultrasound Report Signed Patient: JERAMY SWEENEY MR#: [id number] : 1995 Acct:[id number] Age/Sex: 28 / F ADM Date: 12/09/23 Loc: [facility] 250-[address]: Bria Bales D.O. Ordering Physician: Bria Bales D.O. Date of Service: 12/09/23 Procedure(s): US OB BPP w non-stress Accession Number(s): [id number] cc: Bria Bales D.O.; Physician,Non-Staff M.DTammie The [place] [phone] Patient Name: JERAMY SWEENEY MRN: [id number] date: 1995 Sex: F Assigned Patient Location: [facility] Current Patient Location: [facility] Accession/Order Number: [id number] Exam Date: 12/09/2023 14:32 Report Date: 12/09/2023 [...] Signed By: 12/09/23 1521 DD/ 1519 TD/TT: Software Recruiter: Procedure Note Radiology, Radiologist, MD - 12/09/2023 [place] [address] Ultrasound Report Signed Patient: JERAMY SWEENEY RMR#: [id number] : 1995Acct:[id number] Age/Sex: 28 / FADM Date: 12/09/23 Loc: [facility] 250-[address]: Bria Bales D.O. Ordering Physician: Bria Bales D.O. Date of Service: 12/09/23 Procedure(s): US OB BPP w non-stress Accession Number(s): [id number] cc: Bria Bales D.O.; Physician,Non-Staff Lalit The [place] [phone] Patient Name: JERAMY SWEENEY MRN: [id number] date: 1995 Sex: F Assigned Patient Location: [facility] Current Patient Location: [facility] Accession/Order Number: [id number] Exam Date: 12/09/2023 14:32 Report Date: 12/09/2023 [...] M.D. Signed By:12/09/23 1521 DD/ 1519 TD/TT: Software Recruiter: us Bria Bales DO [facility] Final Result documented in this encounter Visit Diagnoses Not on filedocumented in this encounter Additional Health Concerns Active Problems Noted Date Diagnosed Date OB Reminders 07/11/2023 documented as of this encounter Care Teams Report Clerk Relationship Specialty Start Date End Date Bria Bales DO [address] [place], [place] [address]al[place] [address] PCP - [facility] 01/13/24 documented as of this encounter
--- OUTSIDE RECORDS SUMMARY | 2025-06-09 10:41 | XMS_ITS | Encounter Summary ---
Author Organization [facility] [employer] [facility] tem Address [id number] [address] [place] [address] Care Team Providers Care Bottle Washer Machine Name Role Phone No Pcp, No Pcp Primary Care Provider Unavailabl e Encounter Details Date Type Department Care Team (Late st Contact Info) Description 12/12/2016 Telephone Maternal- Medicine at [facility] [address] [place] [address] Rachelle Mullen LPN Social History Tobacco Use [...] on filedocumented in this encounter Care Teams Bottle Washer Machine Relationship Specialty Start Date End Date No Pcp, [place] [address] PCP - General Family Medicine 10/29/23 documented as of this encounter
--- OUTSIDE RECORDS SUMMARY | 2025-06-09 10:41 | XMS_ITS | Clinical Summary ---
Author Organization [facility] Address [address] [place] [address] Care Team Providers Care Medical Physiologist Name Role Phone Marco Bales DO Unavailable [...] MG disintegrating tabletIndications: Nausea and vomiting in ([facility]) Take 1 tablet (4 mg) by mouth [...] Encounters Date Type Department Care Team Description 06/04/2025 [place] [address] Ailin Huston LPN 05/25/2025 9:40 AM ED[place] [address] Marco Bales DO 18 weeks gestation of ([facility]); Second trimester ([facility]); Well woman exam with routine gynecological exam; Screening, , for anatomic survey ([facility]); Exposure to STD; Vaginal discharge; Thyroid disease 05/25/2025 Clinisync Result Encounter NOMS External Department Unsolicited Marco Bales, 05/25/2025 External Result Encounter NOMS External Department Unsolicited Marco Bales, 05/25/2025 Bamboo [place] [address] Marco Bales DO 05/14/2025 10:30 AM EDT [place] [address] GA: 16w6d 05/14/2025 10:00 AM EDT Ancillary [place] [address] Missed menses; Positive urine test ([facility]) 04/15/2025 [place] [address] Marco Bales DO Thyroid disease from Last [...] EDT Ancillary Procedure [facility] Kandace DIETZ [address] [place] [address] 06/22/2025 9:50 AM EDT Routine NOMS Kandace ZAVALAGYEleanor [address] [place] [address] Marco Bales, [address] [facility] [place] [address] Health Maintenance Due Date Last Done Comments Influenza Vaccine (#1) 2025 Pap Smear 05/25/2028 05/25/2025, 09/09/2023 Cervical Cancer Screening 09/09/2028 HPV/Cotest 09/09/2028 Goals Goal Patient Goal Type Associated Problems Recent Progress Patient-Stated? Author Reminders Care Plan OB Reminders No Open Scheduling, Background Procedures Procedure Name Priority Date/Time Associated Diagnosis Comments RECURRENT VAGINITIS (HTRX) Routine 05/25/2025 12:11 PM EDT POCT URINALYSIS DIPSTICK Routine 05/25/2025 10:26 AM EDT 18 weeks gestation of ([facility]) Second trimester ([facility]) IGP,APTIMA HPV,AGE GDLN Routine 05/25/2025 10:00 AM EDT PAP SMEAR Routine 05/25/2025 12:00 AM EDT POCT URINALYSIS DIPSTICK Routine 05/14/2025 11:04 AM EDT Missed menses POCT , URINE Routine 05/14/2025 11:03 AM EDT Missed menses US OB LIMITED 1+ FETUSES Routine 05/14/2025 10:34 AM EDT Missed menses Positive urine test ([facility]) from Last 3 Months Results * RECURRENT VAGINITIS (HTRX) (05/25/2025 12:11 PM EDT) [facility] ATOPOBIUM VAGINAE 0 19.961 - 24.689 ppm 05/26/2025 6:29 AM EDT [facility] ATOPOBIUM VAGINAE Not Detected 19.961 - 24.689 ppm 05/26/2025 6:29 AM EDT [facility] BVAB 2,3 (BACTERIAL VAGINOSIS ASSOCIATED BACTERIA 2, 3); MOBILUNCUS SPP 0 19.961 - 24.689 ppm 05/26/2025 6:29 AM EDT [facility] BVAB 2,3 (BACTERIAL VAGINOSIS ASSOCIATED BACTERIA 2, 3); MOBILUNCUS SPP Not Detected 19.961 - 24.689 ppm 05/26/2025 6:29 AM EDT [facility] SIRIA ALBICANS, PARAPSILOSIS, TROPICALIS 0 23.000 - 30.347 ppm 05/26/2025 6:29 AM EDT [facility] SIRIA ALBICANS, PARAPSILOSIS, TROPICALIS Not Detected 23.000 - 30.347 ppm 05/26/2025 6:29 AM EDT [facility] SIRIA GLABRATA 0 23.000 - 31.618 ppm 05/26/2025 6:29 AM EDT [facility] SIRIA GLABRATA Not Detected 23.000 - 31.618 ppm 05/26/2025 6:29 AM EDT [facility] SIRIA KRUSEI 0 23.000 - 30.873 ppm 05/26/2025 6:29 AM EDT [facility] SIRIA KRUSEI Not Detected 23.000 - 30.873 ppm 05/26/2025 6:29 AM EDT [facility] CHLAMYDIA TRACHOMATIS 0 23.000 - 31.586 ppm 05/26/2025 6:29 AM EDT [facility] CHLAMYDIA TRACHOMATIS Not Detected 23.000 - 31.586 ppm 05/26/2025 6:29 AM EDT [facility] GARDNERELLA VAGINALIS 0 19.961 - 24.689 ppm 05/26/2025 6:29 AM EDT [facility] GARDNERELLA VAGINALIS Not Detected 19.961 - 24.689 ppm 05/26/2025 6:29 AM EDT [facility] MEGASPHAERA (TYPES 1, 2) 0 19.961 - 24.689 ppm 05/26/2025 6:29 AM EDT [facility] MEGASPHAERA (TYPES 1, 2) Not Detected 19.961 - 24.689 ppm 05/26/2025 6:29 AM EDT [facility] NEISSERIA GONORRHOEAE 0 23.000 - 32.587 ppm 05/26/2025 6:29 AM EDT [facility] NEISSERIA GONORRHOEAE Not Detected 23.000 - 32.587 ppm 05/26/2025 6:29 AM EDT [facility] TRICHOMONAS VAGINALIS 0 23.000 - 31.995 ppm 05/26/2025 6:29 AM EDT [facility] TRICHOMONAS VAGINALIS Not Detected 23.000 - 31.995 ppm 05/26/2025 6:29 AM EDT [facility] MYCOPLASMA GENITALIUM 0 19.961 - 24.689 ppm 05/26/2025 6:29 AM EDT [facility] MYCOPLASMA GENITALIUM Not Detected 19.961 - 24.689 ppm 05/26/2025 6:29 AM EDT [facility] Tissue 05/25/2025 12:1 1 PM EDT 05/26/2025 2:01 AM EDT eshteryo DO LAB BLOOD ORDERABLES Final Resul t LAURA [facility] [address] [address] * (ABNORMAL) POCT urinalysis dipstick manually resulted [...] Positive Urine 05/25/2025 10:2 6 AM EDT eshteryo DO POINT OF CARE TEST ENTER/EDIT OR DERABLES Final Result * IGP,APTIMA HPV,AGE GDLN (05/25/2025 10:00 AM EDT) Pathologist [facility] AGE GDLN ACOG TESTING Note . [facility] Comment: TESTS RESULT FLAG UNITS REF RANGE LAB Clinician Provided Cytology Information Source.............Endocervix Other.............. No. of containers..01 ThinPrep Vial Age Moody COULTER Nancy... 3065 FLAG LEGEND: L-Low Normal,H-High Normal,LL-Alert Low,HH-Alert High <-Panic Low,>-Panic High,A-Abnormal,AA-Critical Abnormal Performed at: 01 [facility] [address] [place] [address] Vikki Rivera MD, IGP, APTIMA HPV, RFX 16/18,45 Note . [facility] Comment: TESTS RESULT FLAG UNITS REF RANGE LAB DIAGNOSIS: 02 NEGATIVE FOR INTRAEPITHELIAL LESION OR MALIGNANCY. Specimen adequacy: 02 Satisfactory for evaluation. Endocervical and/or squamous metaplastic cells (endocervical component) are present. Performed by: Jarocho Kirkpatrick Resident Assistant ([facility]) . 02 Note: Note 02 The Pap smear is a screening test designed to aid in the detection of premalignant and malignant conditions of the uterine cervix. It is not a diagnostic procedure and should not be used as the sole means of detecting cervical cancer. Both false-positive and false-negative reports do occur. Test Methodology: Note 02 This liquid based ThinPrep(R) pap test was screened with the use of an image guided system. HPV Genotype Reflex Note 02 Criteria not met, HPV Genotype not performed. FLAG LEGEND: L-Low Normal,H-High Normal,LL-Alert Low,HH-Alert High <-Panic Low,>-Panic High,A-Abnormal,AA-Critical Abnormal Performed at: [address] [address] Vikki Rivera MD, HPV APTIMA Negative Negative [facility] Comment: This nucleic acid amplification test detects fourteen high- risk HPV types (16,18,31,33,35,39,45,51,52,56,58,59,66,68) without differentiation. Performed at: =[address] [id number] Loss Prevention And Safety Manager: Vikki Rivera MD, Phone: [phone] Performed at: [address] [id number] Loss Prevention And Safety Manager: Vikki Rivera MD, Phone: [phone] 05/25/2025 10:0 0 AM EDT 05/25/2025 12:02 PM EDT Narrative [facility] - 05/27/2025 2:11 PM EDT [facility] us Marco Bales DO LAB BLOOD ORDERABLES Final Resul t [facility] TB * Pap Smear (05/25/2025 12:00 AM EDT) Swab Cervical swab / Unknown us Nii Nurse [facility] Ob LAB CYTOLOGY ORDERABLES Final Result EXTERNAL LAB * (ABNORMAL) POCT , urine manually resulted [...] IMG OB US PROCEDURES Final Resul t from Last 3 Months Additional Health Concerns Active Problems Noted Date Diagnosed Date OB Reminders 07/11/2023 Insurance [employer] Care Teams Medical Physiologist Relationship Specialty Start Date End Date Marco Bales DO [address] [place] [address] [place] [address] PCP - [facility] 01/13/24
--- OUTSIDE RECORDS SUMMARY | 2025-06-09 10:41 | XMS_ITS | Encounter Summary ---
Author Organization [facility] Address [address] [place] [address] Care Team Providers Care Digital Assistant Name Role Phone Marco Bales DO Unavailable Encounter Details Date Type Department Care Team (Late st Contact Info) Description 02/25/2024 Abstract NOMJvoany Greenescar DIETZ [address] [place] [id number] Yolanda Barber CNM [address] [place] [address] Social History Tobacco Use Types Packs/Day Years [...] Procedure [facility] Kandace DIETZ [address] [place] [address] 06/22/2025 9:50 AM EDT Routine NOMJovany DIETZ [address] [place] [address] Marco Bales DO [address] [place] [address] documented as of this encounter Goals Goal Patient Goal Type Associated Problems Recent Progress Patient-Stated? Author Reminders Care Plan OB Reminders No Open Scheduling, Background documented as of this encounter Visit Diagnoses Not on filedocumented in this encounter Additional Health Concerns Active Problems Noted Date Diagnosed Date OB Reminders 07/11/2023 documented as of this encounter Care Teams Digital Assistant Relationship Specialty Start Date End Date Marco Bales DO [address] [place] [address] [place] [address] PCP - [facility] 01/13/24 documented as of this encounter
--- OUTSIDE RECORDS SUMMARY | 2025-06-09 10:41 | XMS_ITS | Encounter Summary ---
Author Organization [facility] Address [address] [place] [address] Care Team Providers Care Baby Stroller Rental Clerk Name Role Phone Bria Bales DO Unavailable Encounter Details Date Type Department Care Team (Late st Contact Info) Description 01/07/2024 Clinisync Result Encounter NOMS External Department Unsolicited Bria Bales, DO [address] [place], [facility] Social History Tobacco Use Types Packs/Day [...] Procedure [facility] Kandace DIETZ [address] [place] [address] 06/22/2025 9:50 AM EDT Routine [facility] Kandace DIETZ [address] [place] [address] Bria Bales DO [address] [place], [place] [id number] documented as of this encounter Goals Goal [...] HAYES LAB BLOOD ORDERABLES Final Resul t [facility] * (ABNORMAL) ALL CBC WITH AUTO DIFF [...] HAYES CLINJ[facility] Final Result Performing Organization Address City/State/[facility] Co de Phone Number [facility] * US OB BPP W NON-STRESS (01/07/2024 7:06 AM EDT) Anatomical Region Laterality Modality Other 01/07/2024 7:06 AM EDT Narrative 01/07/2024 7:09 [place] [address] Ultrasound Report Signed Patient: ЕКАТЕРИНА SWEENEY MR#: [id number] : 1995 Acct:[id number] Age/Sex: 28 / F ADM Date: 01/06/24 Loc: US Attending Dr: Bria Bales D.O. Ordering Physician: Bria Bales D.O. Date of Service: 01/06/24 Procedure(s): US OB BPP w non-stress Accession Number(s): [id number] cc: Bria Bales D.O.; Physician,Non-Staff Lalit The [address] [address] Patient Name: ЕКАТЕРИНА SWEENEY MRN: [id number] date: 1995 Sex: F Assigned Patient Location: US Current Patient Location: US Accession/Order Number: [id number] Exam Date: 01/06/2024 14:30 Report Date: 01/07/2024 [...] M.D. Signed By: 01/07/24708 DD/ 5 TD/TT: Spark Plug Assembler: Procedure Note Radiology, Radiologist, MD - 01/07/2024 The [place] [id number] Ultrasound Report Signed Patient: ЕКАТЕРИНА SWEENEY RMR#: [id number] : 1995Acct:[id number] Age/Sex: 28 / FADM Date: 01/06/24 Loc: US Attending Dr: Bria Bales D.O. Ordering Physician: Bria Bales D.O. Date of Service: 01/06/24 Procedure(s): US OB BPP w non-stress Accession Number(s): [id number] cc: Nii,Bria D.O.; Physician,Non-Staff Lalit [address] [id number] Patient Name: ЕКАТЕРИНА SWEENEY MRN: [facility]:[id number] date: 1995 Sex: F Assigned Patient Location: US Current Patient Location: US Accession/Order Number: [id number] Exam Date: 01/06/2024 14:30 Report Date: 01/07/2024 [...] Tejeda M.D. Signed By:01/07/24 0709 DD/ TD/TT: Spark Plug Assembler: Bria Bales DO [facility] Final Result documented in this encounter Visit Diagnoses Not on filedocumented in this encounter Additional Health Concerns Active Problems Noted Date Diagnosed Date OB Reminders 07/11/2023 documented as of this encounter Care Teams Baby Stroller Rental Clerk Relationship Specialty Start Date End Date Bria Bales DO [address] [place] [address] [place] [address] PCP - [facility] 01/13/24 documented as of this encounter
--- OUTSIDE RECORDS SUMMARY | 2025-06-09 10:41 | XMS_ITS | Encounter Summary ---
Author Organization [facility] Address [address] [place] [address] Care Team Providers Care Histologic Aide Name Role Phone Marco Bales DO Unavailable Encounter Details Date Type Department Care Team (Late st Contact Info) Description 05/25/2025 External Result Encounter NOMS External Department Unsolicited Marco Blaes DO [address] [place], [facility] Social History Tobacco Use Types Packs/Day Years [...] [address] Marco Bales DO [address] [place] [address] documented as of this encounter Goals Goal Patient Goal Type Associated Problems Recent Progress Patient-Stated? Author Reminders Care Plan OB Reminders No Open Scheduling, Background documented as of this encounter Procedures Procedure Name Priority Date/Time Associated Diagnosis Comments RECURRENT VAGINITIS (HTRX) Routine 05/25/2025 12:11 PM EDT documented in this encounter Results * RECURRENT VAGINITIS (HTRX) (05/25/2025 12:11 PM EDT) ATOPOBIUM VAGINAE 0 19.961 - 24.689 ppm 05/26/2025 6:29 AM EDT [facility] ATOPOBIUM VAGINAE Not Detected 19.961 - 24.689 ppm 05/26/2025 6:29 AM EDT [facility] BVAB 2,3 (BACTERIAL VAGINOSIS ASSOCIATED BACTERIA 2, 3); MOBILUNCUS SPP 0 19.961 - 24.689 ppm 05/26/2025 6:29 AM EDT [facility] BVAB 2,3 (BACTERIAL VAGINOSIS ASSOCIATED BACTERIA 2, 3); MOBILUNCUS SPP Not Detected 19.961 - 24.689 ppm 05/26/2025 6:29 AM EDT [facility] SIRIA ALBICANS, PARAPSILOSIS, TROPICALIS 0 23.000 - 30.347 ppm 05/26/2025 6:29 AM EDT [facility] SIRIA ALBICANS, PARAPSILOSIS, TROPICALIS Not Detected 23.000 - 30.347 ppm 05/26/2025 6:29 AM EDT [facility] SIRIA GLABRATA 0 23.000 - 31.618 ppm 05/26/2025 6:29 AM EDT [facility] ISRIA GLABRATA Not Detected 23.000 - 31.618 ppm 05/26/2025 6:29 AM EDT [facility] SIRIA KRUSEI 0 23.000 - 30.873 ppm 05/26/2025 6:29 AM EDT [facility] SIRIA KRUSEI Not Detected 23.000 - 30.873 ppm 05/26/2025 6:29 AM EDT [facility] CHLAMYDIA TRACHOMATIS 0 23.000 - 31.586 ppm 05/26/2025 6:29 AM EDT [facility] CHLAMYDIA TRACHOMATIS Not Detected 23.000 - 31.586 ppm 05/26/2025 6:29 AM EDT [facility] GARDNERELLA VAGINALIS 0 19.961 - 24.689 ppm 05/26/2025 6:29 AM EDT [facility] GARDNERELLA VAGINALIS Not Detected 19.961 - 24.689 ppm 05/26/2025 6:29 AM EDT [facility] MEGASPHAERA (TYPES 1, 2) 0 19.961 - 24.689 ppm 05/26/2025 6:29 AM EDT [facility] MEGASPHAERA (TYPES 1, 2) Not Detected 19.961 - 24.689 ppm 05/26/2025 6:29 AM EDT [facility] NEISSERIA GONORRHOEAE 0 23.000 - 32.587 ppm 05/26/2025 6:29 AM EDT [facility] NEISSERIA GONORRHOEAE Not Detected 23.000 - 32.587 ppm 05/26/2025 6:29 AM EDT [facility] TRICHOMONAS VAGINALIS 0 23.000 - 31.995 ppm 05/26/2025 6:29 AM EDT [facility] TRICHOMONAS VAGINALIS Not Detected 23.000 - 31.995 ppm 05/26/2025 6:29 AM EDT [facility] MYCOPLASMA GENITALIUM 0 19.961 - 24.689 ppm 05/26/2025 6:29 AM EDT [facility] MYCOPLASMA GENITALIUM Not Detected 19.961 - 24.689 ppm 05/26/2025 6:29 AM EDT [facility] Tissue 05/25/2025 12:1 1 PM EDT 05/26/2025 2:01 AM EDT Marco Bales DO LAB BLOOD ORDERABLES Final Resul t [facility] [address] [place] [id number] documented in this encounter Visit Diagnoses Not on filedocumented in this encounter Additional Health Concerns Active Problems Noted Date Diagnosed Date OB Reminders 07/11/2023 documented as of this encounter Care Teams Histologic Aide Relationship Specialty Start Date End Date Marco Bales DO [address] [place] [address] PCP - [facility] 01/13/24 documented as of this encounter
--- OUTSIDE RECORDS SUMMARY | 2025-06-09 10:41 | XMS_ITS | Encounter Summary ---
Author Organization [facility] Address [address] [place] [address] Care Team Providers Care Power Brake Rebuilder Name Role Phone Marco Bales DO Unavailable Encounter Details Date Type Department Care Team (Late st Contact Info) Description 05/25/2025 Clinisync Result Encounter NOMS External Department Unsolicited Marco Bales, [address] [place], [facility]11 Social History Tobacco Use [...] Procedure NOMS Kandace DIETZ [address] [place] [address] 06/22/2025 9:50 AM EDT Routine NOMS Kandace DIETZ [address] [place] [address] Marco Bales DO [address] [place], [facility]11 [phone] (work) documented as of this encounter Goals Goal Patient Goal Type Associated Problems Recent Progress Patient-Stated? Author Reminders Care Plan OB Reminders No Open Scheduling, Background documented as of this encounter Procedures Procedure Name Priority Date/Time Associated Diagnosis Comments IGP,APTIMA HPV,AGE GDLN Routine 05/25/2025 10:00 AM EDT documented in this encounter Results * IGP,APTIMA HPV,AGE GDLN (05/25/2025 10:00 AM EDT) AGE GDLN ACOG TESTING Note . [facility] Comment: TESTS RESULT FLAG UNITS REF RANGE LAB Clinician Provided Cytology Information Source.............Endocervix Other.............. No. of containers..01 ThinPrep Vial Age Algo ACOG Nancy... 30-65 01 FLAG LEGEND: L-Low Normal,H-High Normal,LL-Alert Low,HH-Alert High <-Panic Low,>-Panic High,A-Abnormal,AA-Critical Abnormal Performed at: 01 =G Lab[address] [address] Vikki Rivera MD, IGP, APTIMA HPV, RFX 16/18,45 Note . [facility] Comment: TESTS RESULT FLAG UNITS REF RANGE LAB DIAGNOSIS: 02 NEGATIVE FOR INTRAEPITHELIAL LESION OR MALIGNANCY. Specimen adequacy: 02 Satisfactory for evaluation. Endocervical and/or squamous metaplastic cells (endocervical component) are present. Performed by: 02 Deshawn Kirkpatrick Dross Puller ([facility]) . 02 Note: Note 02 The Pap [...] <-Panic Low,>-Panic High,A-Abnormal,AA-Critical Abnormal Performed at: 02 [facility] [address] [place] [address] Vikki Rivera MD, HPV APTIMA Negative Negative [facility] Comment: This nucleic acid amplification test detects fourteen high- risk HPV types (16,18,31,33,35,39,45,51,52,56,58,59,66,68) without differentiation. Performed at: =G - [facility] [address] [id number] Globe Changer: Vikki Rivera MD, Phone: [phone] Performed at: [address] Ad[place]to [place], [place] [id number] Globe Changer: Vikki Rivera MD, Phone: [phone] 05/25/2025 10:0 0 AM EDT 05/25/2025 12:02 PM EDT Narrative [facility] - 05/27/2025 2:11 PM EDT SPATULA-ALONE ENDOCERVIX us Marco Bales DO LAB BLOOD ORDERABLES [facility] documented in this encounter Visit Diagnoses Not on filedocumented in this encounter Additional Health Concerns Active Problems Noted Date Diagnosed Date OB Reminders 07/11/2023 documented as of this encounter Care Teams Power Brake Rebuilder Relationship Specialty Start Date End Date Marco Bales DO [address] [place] [address] [place] [address] PCP - [facility] 01/13/24 documented as of this encounter
--- OUTSIDE RECORDS SUMMARY | 2025-06-09 10:41 | XMS_ITS | Encounter Summary ---
Author Organization [facility] Address [address] [place] [address] Care Team Providers Care Auto Heater Mechanic Name Role Phone Marco Bales DO Unavailable Encounter Details Date Type Department Care Team (Late st Contact Info) Description 09/17/2023 Abstract NOM[facility]ovany DIETZ [address] [place], [place] [...] documented as of this encounter Care Teams Auto Heater Mechanic Relationship Specialty Start Date End Date Marco Bales DO [address] [place] [address] [place] [address] PCP - [facility] 01/13/24 documented as of this encounter
--- OUTSIDE RECORDS SUMMARY | 2025-06-09 10:41 | XMS_ITS | Encounter Summary ---
Author Organization [facility] Address [address] [place] [address] Care Team Providers Care Nuclear Medicine Tech Name Role Phone Bria Bales DO Unavailable Encounter Details Date Type Department Care Team (Late st Contact Info) Description 01/13/2024 Clinisync Result Encounter NOMS External Department Unsolicited Bria Bales, DO [address], [facility]11 Social History Tobacco Use Types [...] Procedure NOMS Shawn DIETZ [address] [place] [phone] 06/22/2025 9:50 AM EDT Routine NOMS Shawn DIETZ [address] [place] [address] Bria Bales DO [address], [place] [address] documented as of this encounter Goals Goal [...] PM EDT Narrative 01/13/2024 2:55 [place] [address] Ultrasound Report Signed Patient: JERAMY SWEENEY MR#: [id number] : 1995 Acct:[id number] Age/Sex: 28 / F ADM Date: 01/13/24 Loc: [facility] 250-[address]: Bria Bales D.O. Ordering Physician: Bria Bales D.O. Date of Service: 01/13/24 Procedure(s): US OB BPP w non-stress Accession Number(s): [id number] cc: Bria Bales D.O.; Physician,Non-Staff M.DTammie The [place] [id number] Patient Name: JERAMY SWEENEY MRN: [id number] date: 1995 Sex: F Assigned Patient Location: [facility] Current Patient Location: [facility] Accession/Order Number: [id number] Exam Date: 01/13/2024 14:07 Report Date: 01/13/2024 [...] Signed By: 01/13/24 1455 DD/ 1452 TD/TT: Cargo Tank Mechanic: Procedure Note Radiology, Radiologist, MD - 01/16/2024 [place] [address] Ultrasound Report Signed Patient: JERAMY SWEENEY RMR#: [id number] : 1995Acct:[id number] Age/Sex: 28 / FADM Date: 01/13/24 Loc: [facility] 250-[address]: Bria Bales D.O. Ordering Physician: Bria Bales D.O. Date of Service: 01/13/24 Procedure(s): US OB BPP w non-stress Accession Number(s): [id number] cc: Bria Bales D.O.; Physician,Non-Staff Lalit The [place] [id number] Patient Name: JERAMY SWEENEY MRN: [id number] date: 1995 Sex: F Assigned Patient Location: [facility] Current Patient Location: [facility] Accession/Order Number: [id number] Exam Date: 01/13/2024 14:07 Report Date: 01/13/2024 [...] M.D. Signed By:01/13/24 1455 DD/ 1452 TD/TT: Cargo Tank Mechanic: Bria Bales DO [facility] Final Result documented in this encounter Visit Diagnoses Not on filedocumented in this encounter Additional Health Concerns Active Problems Noted Date Diagnosed Date OB Reminders 07/11/2023 documented as of this encounter Care Teams Nuclear Medicine Tech Relationship Specialty Start Date End Date Bria Bales DO [address] [place], [place] [address]albert [place] [address] PCP - [facility] 01/13/24 documented as of this encounter
--- OUTSIDE RECORDS SUMMARY | 2025-06-09 10:41 | XMS_ITS | Encounter Summary ---
Author Organization [facility] [employer] s tem Address [id number] [address] [place] [address] Care Team Providers Care Certified Control Systems Technician Name Role Phone No Pcp, No Pcp Primary Care Provider Unavailabl e Encounter Details Date Type Department Care Team (Late st Contact Info) Description 10/15/2023 Orders Only Maternal- Medicine at [facility] [address] [place] [address] Ref [place], [place] [address] Social History Tobacco Use Types Packs/Day Years [...] 3:34 PM EST) Anatomical Region Laterality Modality OB-SALES ENGAGEMENT EXECUTIVE Ultrasound us Not In System Ref Prov IMG US ORDERABLES Final R esult * Free Cell DNA (08/22/2023 2:55 PM EST) us Not In System Ref Prov LAB BLOOD ORDERABLES Mahogany l Result Performing Organization Address City/[facility] Co de Phone Number MANUALLY TRANSCRIBED RESULTS * TSH (08/08/2023 4:00 PM EDT) us Not In System Ref Prov LAB BLOOD ORDERABLES Mahogany l Result Performing Organization Address [facility] Co de Phone Number MANUALLY TRANSCRIBED RESULTS documented in this encounter Visit Diagnoses Not on filedocumented in this encounter Care Teams Certified Control Systems Technician Relationship Specialty Start Date End Date No Pcp, [place] [address] PCP - General Family Medicine 10/29/23 documented as of this encounter
--- OUTSIDE RECORDS SUMMARY | 2025-06-09 10:41 | XMS_ITS | Encounter Summary ---
Author Organization [facility] Address [address] [place] [address] Care Team Providers Care Cylinder Press Operator Helper Name Role Phone Marco Bales DO Unavailable Encounter Details Date Type Department Care Team (Late st Contact Info) Description 08/29/2023 Abstract [facility] Shawn DIETZ [address] [place] [address] Marco Bales DO [address], [facility]11 Social History Tobacco Use Types Packs/Day [...] Procedure [facility] Shawn DIETZ [address] [place] [address] 06/22/2025 9:50 AM EDT Routine NOMS Shawn DIETZ [address] [place] [address] Marco Bales DO [address] [place] [address] documented as of this encounter Goals Goal Patient Goal Type Associated Problems Recent Progress Patient-Stated? Author Reminders Care Plan OB Reminders No Open Scheduling, Background documented as of this encounter Visit Diagnoses Not on filedocumented in this encounter Additional Health Concerns Active Problems Noted Date Diagnosed Date OB Reminders 07/11/2023 documented as of this encounter Care Teams Cylinder Press Operator Helper Relationship Specialty Start Date End Date Marco Bales DO [address] [place] [address] PCP - [facility] 01/13/24 documented as of this encounter
--- OUTSIDE RECORDS SUMMARY | 2025-06-09 10:41 | XMS_ITS | Encounter Summary ---
Author Organization [facility] Address [address] [place] [address] Care Team Providers Care Plant Control Operator Name Role Phone Marco Bales DO Unavailable Encounter Details Date Type Department Care Team (Late st Contact Info) Description 10/23/2023 Abstract NOMJovany DIETZ [address] [place] [address] Marco Bales DO [address], [facility]11 Social History Tobacco Use Types Packs/Day [...] Ancillary Procedure NOMJovany DIETZ [address] [place] [address] 06/22/2025 9:50 AM EDT Routine NOMJovany DIETZ [address] [place] [address] Marco Bales DO [address], [facility]11 documented as of this encounter Goals Goal Patient Goal Type Associated Problems Recent Progress Patient-Stated? Author Reminders Care Plan OB Reminders No Open Scheduling, Background documented as of this encounter Visit Diagnoses Not on filedocumented in this encounter Additional Health Concerns Active Problems Noted Date Diagnosed Date OB Reminders 07/11/2023 documented as of this encounter Care Teams Plant Control Operator Relationship Specialty Start Date End Date Marco Bales DO [address] [place] [address] [place] [address] PCP - [facility] 01/13/24 documented as of this encounter
--- OUTSIDE RECORDS SUMMARY | 2025-06-09 10:41 | XMS_ITS | Encounter Summary ---
Author Organization [facility] Address [address] [place] [address] Care Team Providers Care Die Cast Supervisor Name Role Phone Bria Bales DO Unavailable Encounter Details Date Type Department Care Team (Late st Contact Info) Description 01/07/2024 Clinisync Result Encounter NOMS External Department Unsolicited Bria Bales, DO [address], [facility]11 Social History Tobacco Use Types Packs/Day Years [...] Procedure NOMS Kandace DIETZ [address] [place] [address] 06/22/2025 9:50 AM EDT Routine NOMS Kandace DIETZ [address] [place] [address] Bria Bales DO [address] [place], [place] [address] documented as of this encounter Goals Goal [...] AM EDT Narrative 01/07/2024 7:08 [place] [address] Ultrasound Report Signed Patient: ЕКАТЕРИНА SWEENEY MR#: [id number] : 1995 Acct:[id number] Age/Sex: 28 / F ADM Date: 01/06/24 Loc: US Attending Dr: Bria Bales D.O. Ordering Physician: Bria Bales D.O. Date of Service: 01/06/24 Procedure(s): US OB growth Accession Number(s): [id number] cc: Bria Bales D.O.; Physician,Non-Staff M.DTammie The [place] [id number] Patient Name: ЕКАТЕРИНА SWEENEY MRN: [id number] date: 1995 Sex: F Assigned Patient Location: US Current Patient Location: US Accession/Order Number: [id number] Exam Date: 01/06/2024 14:30 Report Date: 01/07/2024 [...] M.D. Signed By: 01/07/2408 DD/ 5 TD/TT: Integration Assistant: Procedure Note Radiology, Radiologist, MD - 01/07/2024 [place] [address] Ultrasound Report Signed Patient: ЕКАТЕРИНА SWEENEY RMR#: [id number] : 1995Acct:[id number] Age/Sex: 28 FADM Date: 01/06/24 Loc: US Attending Dr: Bria Bales D.O. Ordering Physician: Bria Bales D.O. Date of Service: 01/06/24 Procedure(s): US OB growth Accession Number(s): [id number] cc: Bria Bales D.O.; Physician,Non-Staff Lalit The [place] [address] Patient Name: ЕКАТЕРИНА SWEENEY MRN: [id number] date: 1995 Sex: F Assigned Patient Location: US Current Patient Location: US Accession/Order Number: [id number] Exam Date: 01/06/2024 14:30 Report Date: 01/07/2024 [...] Tejeda M.D. Signed By:01/07/2408 DD/ 5 TD/TT: Integration Assistant: Bria Bales DO [facility] Final Result documented in this encounter Visit Diagnoses Not on filedocumented in this encounter Additional Health Concerns Active Problems Noted Date Diagnosed Date OB Reminders 07/11/2023 documented as of this encounter Care Teams Die Cast Supervisor Relationship Specialty Start Date End Date Bria Bales DO [address] [place] [address] [place] [address] PCP - [facility] 01/13/24 documented as of this encounter
--- OUTSIDE RECORDS SUMMARY | 2025-06-09 10:41 | XMS_ITS | Encounter Summary ---
Author Organization [facility] Address [address] [place] [address] Care Team Providers Care Coating And Embossing Unit Operator Name Role Phone Marco Bales DO Unavailable Encounter Details Date Type Department Care Team (Late st Contact Info) Description 10/29/2023 Abstract NOMJovany DIETZ [address] [place] [address] Ailin Huston LPN [address] [place] [facility]11 Social History Tobacco Use Types Packs/Day Years [...] EDT Ancillary Procedure NOMS Kandace DIETZ [address] [place] [address] 06/22/2025 9:50 AM EDT Routine NOMJovany DIETZ [address] [place] [address] Marco Bales DO [address] Raad [place], [place] [address] documented as of this encounter Goals Goal Patient Goal Type Associated Problems Recent Progress Patient-Stated? Author Reminders Care Plan OB Reminders No Open Scheduling, Background documented as of this encounter Visit Diagnoses Not on filedocumented in this encounter Additional Health Concerns Active Problems Noted Date Diagnosed Date OB Reminders 07/11/2023 documented as of this encounter Care Teams Coating And Embossing Unit Operator Relationship Specialty Start Date End Date Marco Bales DO [address] [place] [address] [place] [address] PCP - [facility] 01/13/24 documented as of this encounter
--- OUTSIDE RECORDS SUMMARY | 2025-06-09 10:41 | XMS_ITS | Encounter Summary ---
Author Organization [facility] Address [address] [place] [address] Care Team Providers Care Record Keeper Name Role Phone Bria Bales DO Unavailable Encounter Details Date Type Department Care Team (Late st Contact Info) Description 10/16/2023 External Result Encounter NOMS Kandace DIETZ [address] [place] [address] Bria Bales DO [address], [facility]11 Social History Tobacco Use Types Packs/Day Years [...] Procedure NOMS Kandace DIETZ [address] [place] [address] 06/22/2025 9:50 AM EDT Routine NOMS Kandace DIETZ [address] [place] [address] Bria Bales DO [address] [place] [address] documented as of this encounter Goals [...] Final 10/16/2023 13:39) PATIENT INFO: ID #: [id number] : [birth year] (28 yrs)(F) Name: ЕКАТЕРИНА OLIVEROS KOKO Visit Date: 10/16/2023 12:37 PERFORMED BY: Attending: Haseeb Nice MD, [facility] Performed By: Marion Shabazz RDMS Referred By: Bria Bales DO Ref. Address: [address] [place] [address] [place] [address] Location: Maternal Medicine [place] SERVICE(S) PROVIDED: Comprehensive Anatomic Survey 68526 OB Transvaginal 16275 INDICATIONS: Screening for anatomic survey Z36.89 History [...] Normal Interventr. Septum: Not well visualized Cardiac Erick: Appears normal Diaphragm: Not well visualized 3 [...] incomplete due to position. Haseeb Nice MD, [facility] Electronically Signed Final Report 10/16/2023 13:39 IMPRESSION: [...] Final 10/16/2023 13:39) PATIENT INFO: ID #: [id number] : [birth year] (28 yrs)(F) Name: ЕКАТЕРИНА SWEENEY Visit Date: 10/16/2023 12:37 PERFORMED BY: Attending: Haseeb Nice MD, [facility] Performed By: Marion Shabazz RDMS Referred By: Bria Bales DO Ref. Address: [address] [place] [address] [place] [address] Location: [facility]aternal Medicine [place] SERVICE(S) PROVIDED: Comprehensive Anatomic Survey 92864 OB Transvaginal 36646 INDICATIONS: Screening for anatomic survey Z36.89 History [...] Normal Interventr. Septum: Not well visualized Cardiac Erick: Appears normal Diaphragm: Not well visualized 3 [...] incomplete due to position. Haseeb Nice MD, [facility] Electronically Signed Final Report 10/16/2023 13:39 IMPRESSION: [...] documented as of this encounter Care Teams Record Keeper Relationship Specialty Start Date End Date Bria Bales DO [address] [place] [address] PCP - [facility] 01/13/24 documented as of this encounter
--- OUTSIDE RECORDS SUMMARY | 2025-06-09 10:41 | XMS_ITS | Clinical Summary ---
Author Organization [employer] tem Address [id number] [address] [place] [address] Care Team Providers Care Puller Out Name Role Phone No Pcp, No Pcp [...] needed for nausea or vomiting. Active vit no.684-pbkd-afstj acid ( VITAMIN) 27 mg iron- 800 [...] Health Maintenance Due Date Last Done Comments Depression Screening 2005 Pap Smear 2014 Adult BMI Screening 10/16/2024 10/16/2023 Tobacco Screening 10/16/2024 10/16/2023 Influenza Vaccine 06/14/2025 DTaP,Tdap and Td Vaccines (9 - Td or Tdap) 10/20/2032 10/20/2022, 03/12/2012, 10/11/2005, Additional history exists Medical Devices Not on file Insurance [employer] Care Teams Puller Out Relationship Specialty Start Date End Date No Pcp, [place] [address] PCP - General Family Medicine 10/29/23
--- OUTSIDE RECORDS SUMMARY | 2025-06-09 10:41 | XMS_ITS | Encounter Summary ---
Author Organization [facility] Address [address] [place] [address] Care Team Providers Care Vehicle Body Maker Name Role Phone Marco Bales DO Unavailable Encounter Details Date Type Department Care Team (Late st Contact Info) Description 06/04/2025 Orders Only NOMS Kandace DIETZ [address] [place] [address] Ailin Huston LPN [address] Ra[address] Maria Esther [facility]11 Social History Tobacco Use Types Packs/Day Years [...] AM EDT Ancillary Procedure NOMJovany DIETZ [address] [place] [address] 06/22/2025 9:50 AM EDT Routine NOMJovany DIETZ [address] [place] [address] Marco Bales DO [address] [place] [address] documented as of this encounter Goals Goal Patient Goal Type Associated Problems Recent Progress Patient-Stated? Author Reminders Care Plan OB Reminders No Open Scheduling, Background documented as of this encounter Procedures Procedure Name Priority Date/Time Associated Diagnosis Comments PAP SMEAR Routine 05/25/2025 12:00 AM EDT documented in this encounter Results * Pap Smear (05/25/2025 12:00 AM EDT) Swab Cervical swab / Unknown Nii Nurse Noms Bcp Ob LAB CYTOLOGY ORDERABLES Final Result EXTERNAL LAB documented in this encounter Visit Diagnoses Not on filedocumented in this encounter Additional Health Concerns Active Problems Noted Date Diagnosed Date OB Reminders 07/11/2023 documented as of this encounter Care Teams Vehicle Body Maker Relationship Specialty Start Date End Date Marco Bales DO [address] [place] [address] PCP - [facility] 01/13/24 documented as of this encounter
--- OUTSIDE RECORDS SUMMARY | 2025-06-09 10:41 | XMS_ITS | Encounter Summary ---
Author Organization [facility] Address [address] [place] [address] Care Team Providers Care Dump Truck Operator Name Role Phone Marco Bales DO Unavailable Encounter Details Date Type Department Care Team (Late st Contact Info) Description 10/31/2023 Abstract NOMJovany DIETZ [address] [place] [address] Marco Bales DO [address], [facility]11 Social History Tobacco Use Types Packs/Day Years [...] Ancillary Procedure NOMJovany DIETZ [address] [place] [address] 06/22/2025 9:50 AM EDT Routine NOMJovany DIETZ [address] [place] [address] Marco Bales DO [address], [facility]11 documented as of this encounter Goals Goal Patient Goal Type Associated Problems Recent Progress Patient-Stated? Author Reminders Care Plan OB Reminders No Open Scheduling, Background documented as of this encounter Visit Diagnoses Not on filedocumented in this encounter Additional Health Concerns Active Problems Noted Date Diagnosed Date OB Reminders 07/11/2023 documented as of this encounter Care Teams Dump Truck Operator Relationship Specialty Start Date End Date Marco Bales DO [address] [place] [address] [place] [address] PCP - [facility] 01/13/24 documented as of this encounter
--- OUTSIDE RECORDS SUMMARY | 2025-06-09 10:41 | XMS_ITS | Encounter Summary ---
Author Organization [facility] Address [address] [place] [address] Care Team Providers Care Operation Shift Supervisor Name Role Phone Bria Bales DO Unavailable Encounter Details Date Type Department Care Team (Late st Contact Info) Description 02/10/2024 Clinisync Result Encounter NOMS External Department Unsolicited Bria Bales, DO [address], [facility]11 Social History Tobacco Use Types Packs/Day Years [...] NOMS Shawn DIETZ [address] [place] [address] 06/22/2025 9:50 AM EDT Routine NOMS Shawn DIETZ [address] [place] [address] Bria Bales DO [address] [place], [place] [address] documented as of this encounter Goals Goal [...] PM EDT Narrative 02/10/2024 2:57 [place] [address] Ultrasound Report Signed Patient: JERAMY SWEENEY MR#: [id number] : 1995 Acct:[id number] Age/Sex: 28 / F ADM Date: 02/10/24 Loc: US Attending Dr: Bria Bales D.O. Ordering Physician: Bria Bales D.O. Date of Service: 02/10/24 Procedure(s): US OB BPP w non-stress Accession Number(s): [id number] cc: Bria Bales D.O.; Physician,Non-Staff M.DTammie The [place] [id number] Patient Name: JERAMY SWEENEY MRN: [id number] date: 1995 Sex: F Assigned Patient Location: US Current Patient Location: US Accession/Order Number: [id number] Exam Date: 02/10/2024 13:59 Report Date: 02/10/2024 [...] Signed By: 02/10/24 1457 DD/ 1455 TD/TT: Youth Court Judge: Procedure Note Radiology, Radiologist, MD - 02/10/2024 [place] [address] Ultrasound Report Signed Patient: JERAMY SWEENEY RMR#: [id number] : 1995Acct:[id number] Age/Sex: 28 / FADM Date: 02/10/24 Loc: US Attending Dr: Bria Bales D.O. Ordering Physician: Bria Bales D.O. Date of Service: 02/10/24 Procedure(s): US OB BPP w non-stress Accession Number(s): [id number] cc: Bria Bales D.O.; Physician,Non-Staff Lalit The [place] [id number] Patient Name: JERAYM SWEENEY MRN: [id number] date: 1995 Sex: F Assigned Patient Location: US Current Patient Location: US Accession/Order Number: [id number] Exam Date: 02/10/2024 13:59 Report Date: 02/10/2024 [...] M.D. Signed By:02/10/24 1457 DD/ 1455 TD/TT: Youth Court Judge: us Bria Bales DO [facility] Final Result documented in this encounter Visit Diagnoses Not on filedocumented in this encounter Additional Health Concerns Active Problems Noted Date Diagnosed Date OB Reminders 07/11/2023 documented as of this encounter Care Teams Operation Shift Supervisor Relationship Specialty Start Date End Date Bria Bales DO [address] [place] [address] PCP - [facility] 01/13/24 documented as of this encounter
--- OUTSIDE RECORDS SUMMARY | 2025-06-09 10:41 | XMS_ITS | Encounter Summary ---
Author Organization [facility] Address [address] [place] [address] Care Team Providers Care Rotary Driller Prospecting Name Role Phone Bria Bales DO Unavailable Encounter Details Date Type Department Care Team (Late st Contact Info) Description 07/11/2023 Clinisync Result Encounter NOMS External Department Unsolicited Bria Bales, DO [address], [facility]11 Social History Tobacco Use Types Packs/Day Years [...] Procedure NOMS Shawn DIETZ [address] [place] [address] 06/22/2025 9:50 AM EDT Routine NOMS Shawn DIETZ [address] [place] [address] Bria Bales DO [address] [place], [place] [address] documented as of this encounter Goals Goal [...] EDT Narrative 07/11/2023 3:50 [place] [address] Ultrasound Report Signed Patient: JERAMY SWEENEY MR#: [id number] : 1995 Acct:[id number] Age/Sex: 28 / F ADM Date: 07/11/23 Loc: US Attending Dr: Bria Bales D.O. Ordering Physician: Bria Bales D.O. Date of Service: 07/11/23 Procedure(s): US OB transvaginal Accession Number(s): [id number] cc: Bria Bales D.O.; Physician,Non-Staff M.D. The [place] [id number] Patient Name: JERAMY SWEENEY MRN: [id number] date: 1995 Sex: F Assigned Patient Location: US Current Patient Location: US Accession/Order Number: [id number] Exam Date: 07/11/2023 13:10 Report Date: 07/11/2023 [...] M.D. Signed By: 07/11/231552 DD/ 49 TD/TT: Major Account Manager: Procedure Note Radiology, Radiologist, MD - 07/11/2023 [place] [address] Ultrasound Report Signed Patient: JERAMY SWEENEY RMR#: [id number] : 1995Acct:[id number] Age/Sex: 28 / FADM Date: 07/11/23 Loc: US Attending Dr: Bria Bales D.O. Ordering Physician: Bria Bales D.O. Date of Service: 07/11/23 Procedure(s): US OB transvaginal Accession Number(s): [id number] cc: Bria Bales D.O.; Physician,Non-Staff Lalit The [place] [address] Patient Name: JERAMY SWEENEY MRN: [id number] date: 1995 Sex: F Assigned Patient Location: US Current Patient Location: US Accession/Order Number: [id number] Exam Date: 07/11/2023 13:10 Report Date: 07/11/2023 [...] 15:50 Dictated By: Efren Ventura M.D. Signed By:07/11/231552 DD/ 49 TD/TT: Major Account Manager: us Bria Bales DO [facility] Final Result documented in this encounter Visit Diagnoses Not on filedocumented in this encounter Additional Health Concerns Active Problems Noted Date Diagnosed Date OB Reminders 07/11/2023 documented as of this encounter Care Teams Rotary Driller Prospecting Relationship Specialty Start Date End Date Bria Bales DO [address] [place] [address] [place] [address] PCP - [facility] 01/13/24 documented as of this encounter
--- OUTSIDE RECORDS SUMMARY | 2025-06-09 10:41 | XMS_ITS | Encounter Summary ---
Author Organization [facility] Address [address] [place] [address] Care Team Providers Care Poultry Inseminator Name Role Phone Marco Bales DO Unavailable Encounter Details Date Type Department Care Team (Late st Contact Info) Description 04/02/2024 Abstract [facility] [address] [place] [id number] Marco Bales DO [address] [place], [facility] Social History Tobacco Use Types Packs/Day [...] Ancillary Procedure [facility] [address] [place] [id number] 06/22/2025 9:50 AM EDT Routine [facility] [address] [place] [address] Marco Bales DO [address], [facility] documented as of this encounter Goals Goal Patient Goal Type Associated Problems Recent Progress Patient-Stated? Author Reminders Care Plan OB Reminders No Open Scheduling, Background documented as of this encounter Visit Diagnoses Not on filedocumented in this encounter Additional Health Concerns Active Problems Noted Date Diagnosed Date OB Reminders 07/11/2023 documented as of this encounter Care Teams Poultry Inseminator Relationship Specialty Start Date End Date Marco Bales DO [address] [place] [address] [place] [address] PCP - [facility] 01/13/24 documented as of this encounter
--- OUTSIDE RECORDS SUMMARY | 2025-06-09 10:41 | XMS_ITS | Encounter Summary ---
Author Organization [facility] Address [address] [place] [address] Care Team Providers Care Program Analyst Name Role Phone Marco Bales DO Unavailable Encounter Details Date Type Department Care Team (Late st Contact Info) Description 02/17/2024 Abstract [facility] [address] [place] [id number] Marco Bales DO [address], [facility] Social History Tobacco Use Types Packs/Day [...] Ancillary Procedure [facility] [address] [place] [id number] 06/22/2025 9:50 AM EDT Routine [facility] [address] [place] [id number] Marco Bales DO [address], [facility] documented as of this encounter Goals Goal Patient Goal Type Associated Problems Recent Progress Patient-Stated? Author Reminders Care Plan OB Reminders No Open Scheduling, Background documented as of this encounter Visit Diagnoses Not on filedocumented in this encounter Additional Health Concerns Active Problems Noted Date Diagnosed Date OB Reminders 07/11/2023 documented as of this encounter Care Teams Program Analyst Relationship Specialty Start Date End Date Marco Bales DO [address] [place] [address] [place] [address] PCP - [facility] 01/13/24 documented as of this encounter
--- OUTSIDE RECORDS SUMMARY | 2025-06-09 10:41 | XMS_ITS | Encounter Summary ---
Author Organization [facility] Address [address] [place] [address] Care Team Providers Care Piercing Mill Operator Name Role Phone Marco Bales DO Unavailable Encounter Details Date Type Department Care Team (Late st Contact Info) Description 09/20/2023 Abstract [facility] [address] [place] [address] Marco Bales DO [address], [...] Ancillary Procedure [facility] [address] [place] [phone] 06/22/2025 9:50 AM EDT Routine [facility] [address] [place] [address] Marco Bales DO [address], [...] documented as of this encounter Care Teams Piercing Mill Operator Relationship Specialty Start Date End Date Marco Bales DO [address] [place] [address] [place] [address] PCP - [facility] 01/13/24 documented as of this encounter
--- OUTSIDE RECORDS SUMMARY | 2025-06-09 10:41 | XMS_ITS | Encounter Summary ---
Author Organization [facility] Address [address] [place] [address] Care Team Providers Care Coke Crane Operator Name Role Phone Marco Bales DO Unavailable Encounter Details Date Type Department Care Team (Late st Contact Info) Description 10/09/2023 Abstract [facility] [address] [place] [phone] Marco Bales DO [address], [facility] Social History Tobacco Use Types Packs/Day [...] Ancillary Procedure [facility] [address] [place] [phone] 06/22/2025 9:50 AM EDT Routine [facility] [address] [place] [phone] Marco Bales DO [address], [facility] documented as of this encounter Goals Goal Patient Goal Type Associated Problems Recent Progress Patient-Stated? Author Reminders Care Plan OB Reminders No Open Scheduling, Background documented as of this encounter Visit Diagnoses Not on filedocumented in this encounter Additional Health Concerns Active Problems Noted Date Diagnosed Date OB Reminders 07/11/2023 documented as of this encounter Care Teams Coke Crane Operator Relationship Specialty Start Date End Date Marco Bales DO [address] [place] [address] [place] [address] PCP - [facility] 01/13/24 documented as of this encounter
--- OUTSIDE RECORDS SUMMARY | 2025-06-09 10:44 | XMS_ITS | CCD ---
Author Organization [facility] CliniSyvt Care Team Providers Care Computing Consultant Name Role Phone RUSSELL, DR DEBBIE Mohan Attending Unavailabl e REINECK, DR DEBBIE Mohan Admitting Unavailabl e MARCH ., DR MARIS Vail Primary Care Unavailable REINECK, DR DEBBIE Mohan Consulting Unavailabl e CASSANDRA ROSALES Admitting Unavailable CASSANDRA ROSALES Attending Unavailable GRECHNY ., ABIGAIL RALPH Consulting Unavailabl e MARCH ., DR MARIS Vail Primary Care Unavailable LUDWIG JEAN BAPTISTE Consulting Unavailable NII ., DR FRASER Attending Unavailable NII ., DR FRASER Admitting Unavailable MARCH ., DR MARIS Vail Primary Care Unavailable NII ., DR FRASER Attending Unavailable NII ., DR FRASER Admitting Unavailable MARCH ., DR MARIS Vail Primary Care Unavailable NII ., DR FRASER Attending Unavailable NII ., DR FRASER Admitting Unavailable MARCH ., DR MARIS Vail Primary Care Unavailable MARCH ., DR MARIS Vail Primary Care Unavailable MARCH ., DR MARIS Vail Consulting Unavailable MARCH ., DR MARIS Vail Attending Unavailable MARCH ., DR MARIS Vail Admitting Unavailable ZIEBER, DR GENI Lemos Consulting Unavailable NII ., DR FRASER Attending Unavailable NII ., DR FRASER Admitting Unavailable MARCH ., DR MARIS Vail Primary Care Unavailable MARCH ., DR MARIS Vail Consulting Unavailable NII ., DR FRASER Consulting Unavailable ZIEBER, DR GENI Lemos Consulting Unavailable NII ., DR FRASER Consulting Unavailable MISC, DR JIM Admitting Unavailable NII ., DR FRASER Primary Care Unavailable MISC, DR JIM Attending Unavailable NII ., DR FRASER Primary Care Unavailable IRAJ [...] ., DR MARIS Vail Primary Care Unavailable NII, BRIA R Referring Unavailable HASEEB NICE Attending Unavailable NII, BRIA R Referring Unavailable NII, BRIA R Referring Unavailable NO PCP, NO PCP Primary Care Unavailable NII, BRIA R Referring Unavailable NO PCP, NO PCP Primary Care Unavailable Unavailable Primary Care Provider Unavailabl e Unavailable Primary Care Provider Unavaildionicio e Bria Bales DO Unavailable BRIA BALES Attending Unavailable Medications Current Medications Medication Drug Class(es) Dates Sig (Normalized) Sig (Original) levothyroxine sodium 0.1 mg oral tablet (15 sources) l-Thyroxine Start: 04-15-2025 take 1 tablet by mouth once daily levothyroxine (Synthroid, Levoxyl) 100 MCG tablet Indications: Thyroid disease TAKE 1 TABLET (100 MCG) BY MOUTH 1 (ONE) TIME EACH DAY AT THE SAME TIME 30 tablet 5 04/15/2025 Active Start: 10-08-2023 End: 04-05-2024 take 1 tablet by mouth once daily levothyroxine (Synthroid, Levoxyl) 100 MCG tablet Indications: Thyroid disease (CMS/HCC) Take 1 tablet (100 mcg) by mouth 1 (one) time each day at the same time 30 tablet 5 10/08/2023 04/05/2024 Active norethindrone 0.35 mg oral tablet (1 source) Start: 04-22-2024 End: 05-14-2025 take 1 tablet by mouth once daily norethindrone (Micronor) 0.35 MG tablet Indications: Uses control Take 1 tablet (0.35 mg) by mouth Daily 28 tablet 11 04/22/2024 05/14/2025 Discontinued (Other) omeprazole 20 mg delayed release oral capsule (3 sources) Proton Pump Inhibitor Start: 04-24-2024 End: 05-14-2025 take 2 capsules by mouth before mealtime omeprazole (PriLOSEC) [address] capsule Indications: Heartburn TAKE 2 CAPSULES (40 MG) BY MOUTH IN THE MORNING. TAKE BEFORE MEALS. DO NOT CRUSH OR CHEW.. 180 capsule 3 04/24/2024 05/14/2025 Discontinued (Other) Start: 10-08-2023 End: 10-07-2024 take 1 capsule by mouth before mealtime omeprazole (PriLOSEC) [address] capsule Indications: Heartburn Take 1 capsule (20 mg) by mouth in the morning. Take before meals. Do not crush or chew.. 30 capsule 11 10/08/2023 10/07/2024 Active ondansetron 4 mg disintegrating oral tablet (13 sources) Serotonin-3 Receptor Antagonist Start: 05-14-2025 End: 06-13-2025 take 1 tablet by mouth every six hours for nausea ondansetron ODT (Zofran-ODT) 4 MG disintegrating tablet Indications: Nausea and vomiting in ([facility]) Take 1 tablet (4 mg) by mouth every 6 (six) hours if needed for nausea or vomiting 30 tablet 2 05/14/2025 06/13/2025 Active take 1 tablet by dheeraj th every six hours as needed for nausea and vomiting ondansetron ODT (ZOFRAN ODT) 4 mg disintegrating tablet Dissolve 1 tablet (4 mg total) on tongue every 6 (six) hours as needed for nausea or vomiting. 0 Active vit no.[id number] acid ( VITAMIN) 27 mg iron- 800 mcg tablet (7 sources) take 1 tablet by mouth in the morning vit no.[id number] acid ( VITAMIN) 27 mg iron- 800 mcg tablet Take 1 tablet by mouth in the morning. 0 Active Vit-Fe Fumarate-FA (M-Sindi Plus) 27-1 MG tablet (6 sources) Start: 01-25-2025 take 1 tablet by mouth once daily in the morning Vit-Fe Fumarate-FA (M- Plus) 27-1 MG tablet Indications: Missed menses TAKE 1 TABLET BY MOUTH EVERY DAY IN THE MORNING 30 tablet 11 01/25/2025 Active Vit-Fe Fumarate-FA ( Plus/Iron) 27-1 MG tablet (2 sources) Start: 10-08-2023 End: 10-07-2024 take 1 tablet by mouth in the morning Vit-Fe Fumarate-FA ( Plus/Iron) 27-1 MG tablet Indications: Missed menses Take 1 tablet by mouth in the morning. 30 tablet 11 10/08/2023 10/07/2024 Active progesterone (FIRST-PROGESTERONE VGS) 200 mg suppository (7 sources) progesterone (FIRST-PROGESTERONE VGS) 200 mg suppository Insert 1 suppository (200 mg total) into the vagina nightly. 0 Active Problems Active Problems Problem Classification Problem Date Documented Date Episodic/Chronic Anxiety disorders (6 sources) Generalized anxiety disorder; Translations: [Generalized anxiety disorder] Onset: 12-16-2023 12-16-2023 Chronic Essential hypertension (1 source) Essential (primary) hypertension; Translations: [ESSENTIAL PRIMARY HYPERTENSION] Onset: 03-22-2022 Chronic Hemorrhage during ; abruptio placenta; placenta previa (7 sources) Threatened ; Translations: [Hemorrhage in early , unspecified] Onset: 01-22-2023 Episodic Immunizations and screening for infectious disease (3 sources) Encounter for immunization; Translations: [Exposure to sexually transmissible disorder] Onset: 10-23-2022 05-25-2025 Episodic Menopausal disorders (1 source) Hormone replacement therapy; Translations: [HORMONE REPLACEMENT THERAPY] Onset: 01-22-2023 Episodic Menstrual disorders (5 sources) Irregular menstruation, unspecified; Translations: [Missed period] Onset: 01-28-2023 Chronic Other aftercare (1 source) 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; Translations: [OTH ASSISTED CURRENT DRUG THERAPY] Onset: 01-23-2023 Episodic Other [...] TRI] Onset: 01-09-2023 Episodic Other complications of (2 sources) care [...] pregnancies, unspecified trimester] Onset: 10-29-2023 Episodic Other complications of (1 source) Vomiting of , unspecified; Translations: [Unspecified vomiting of , unspecified as to episode of care or not applicable] 05-14-2025 Episodic Other female genital disorders (2 sources) Vaginal discharge; Translations: [Other specified noninflammatory disorders of vagina] 05-25-2025 Episodic Other and delivery including normal (10 sources) Encounter for supervision of normal , unspecified, first trimester; Translations: [Second trimester ] Onset: 06-04-2022 11-20-2023 Episodic Other screening for suspected conditions (not mental disorders or infectious disease) (8 sources) Encounter for other specified screening; Translations: [Encounter for screening for cervical length] Onset: 10-16-2023 11-27-2023 Episodic Residual codes; unclassified (1 source) Less than 8 weeks gestation of ; Translations: [< 8 WEEKS GESTATION ] Onset: 01-23-2023 Episodic Residual codes; unclassified (1 source) 20 weeks gestation of ; Translations: [20 weeks gestation of ] Onset: 10-16-2023 Episodic Residual codes; unclassified (2 sources) H/O: miscarriage; Translations: [Personal history of other complications of , childbirth and the puerperium] 11-27-2023 Episodic Residual codes; unclassified (2 sources) Gestation period, 18 weeks; Translations: [18 weeks gestation of ] 05-25-2025 Episodic Substance-related disorders (1 source) Nicotine dependence, cigarettes, uncomplicated; Translations: [NICOTINE DEPEND CIGARETTES UNCOMP] Onset: 01-23-2023 Chronic Thyroid disorders (8 sources) Hypothyroidism, unspecified; Translations: [Hypothyroidism] Onset: 03-16-2022 Chronic Unclassified (1 source) PERSONAL HISTORY OF COVID-19; Translations: [PERSONAL HISTORY OF COVID-19] Onset: 01-22-2023 Unclassified (2 sources) COUGH, UNSPECIFIED; Translations: [COUGH, UNSPECIFIED] Onset: 01-09-2023 Unclassified (1 source) Hx Oligo Onset: 10-16-2023 Unclassified (8 sources) OB Reminders Onset: 07-11-2023 07-11-2023 Viral infection (1 source) COVID-19; Translations: [COVID-19] Onset: 01-09-2023 Past or Other Problems Problem Classification Problem Date Documented Da te Episodic/Chronic E Codes: Fall (1 source) Unspecified fall, initial encounter; Translations: [UNSPECIFIED FALL INITIAL ENCOUNTER] Onset: 10-23-2022 Episodic Gastrointestinal hemorrhage (6 sources) Rectal hemorrhage; Translations: [Hemorrhage of anus and rectum] Onset: 04-09-2024 04-09-2024 Episodic Inflammation; infection of eye (except that caused by tuberculosis or sexually transmitteddisease) (1 source) Unspecified conjunctivitis; Translations: [UNSPECIFIED CONJUNCTIVITIS] Onset: 03-05-2022 Episodic Open wounds of head; neck; and trunk (4 sources) Laceration without foreign body of other part of head, initial encounter; Translations: [LAC W/O FB OTH PART HEAD INIT ENC] Onset: 10-20-2022 Episodic Other complications of (1 source) High risk ; Translations: [Supervision of high risk , unspecified, second trimester] 10-16-2023 Episodic Other complications of (3 sources) H/O: ; Translations: [Supervision of with other poor reproductive or obstetric history, unspecified trimester] 10-16-2023 Episodic Other complications of (2 sources) Hypothyroidism in ; Translations: [Endocrine, nutritional and metabolic diseases complicating , second trimester] 10-16-2023 Episodic Other complications of (1 source) H/O: premature delivery; Translations: [Supervision of other high risk pregnancies, unspecified trimester] 10-22-2023 Episodic Other connective tissue disease (1 source) Impingement syndrome of right shoulder; Translations: [IMPINGEMENT SYNDROME RIGHT SHOULDER] Onset: 03-22-2022 Episodic Other eye disorders (3 sources) Other specified disorders of eye and adnexa; Translations: [OTHER SPEC DISORDERS EYE AND ADNEXA] Onset: 03-03-2022 Episodic Residual codes; unclassified (8 sources) H/O: Disorder; Translations: [Personal history of other complications of , childbirth and the puerperium] Onset: 12-16-2023 11-27-2023 Episodic Residual codes; unclassified (1 source) Gestation period, 20 weeks; Translations: [20 weeks gestation of ] 10-16-2023 Episodic Thyroid disorders (8 sources) Disorder of thyroid gland; Translations: [Disorder of thyroid, unspecified] Onset: 12-16-2023 12-16-2023 Episodic Unclassified (1 source) COUGH, UNSPECIFIED; Translations: [COUGH, UNSPECIFIED] Onset: 01-08-2023 Results Test Name Value Interpretation Reference Range Facility IGP,APTIMA HPV,AGE GDLNon AGE GDLN ACOG TESTING Note . [facility] Comment on above: TESTS RESULT FLAG UN ITS REF RANGE LAB Clinician Provided Cytology Information Source.............Endocervix Other.............. No. of containers..01 ThinPrep Vial Age Algo ACOG Nancy... 30-65 01 FLAG LEGEND: L-Low Normal,H-High Normal,LL-Alert Low,HH-Alert High <-Panic Low,>-Panic High,A-Abnormal,AA-Critical Abnormal Performed at: 01 =[address] [id number] Vikki Rivera MD, HPV APTIMA Negative Negative [facility] Comment on above: This nucleic acid am plification test detects fourteen high- risk HPV types (16,18,31,33,35,39,45,51,52,56,58,59,66,68) without differentiation. Performed at: = - [address] [id number] Lunchroom Worker: Vikki Rivera MD, Phone: [phone] Performed at: [address] [id number] Lunchroom Worker: Vikki Rivera MD, Phone: [phone] IGP, APTIMA HPV, RFX 16/18,45 Note . [facility] Comment on above: TESTS RESULT FLAG UN ITS REF RANGE LAB DIAGNOSIS: 02 NEGATIVE FOR INTRAEPITHELIAL LESION OR MALIGNANCY. Specimen adequacy: 02 Satisfactory for evaluation. Endocervical and/or squamous metaplastic cells (endocervical component) are present. Performed by: Jarocho Kirkpatrick Lard Bleacher (ASCP) . 02 Note: Note 02 The Pap [...] <-Panic Low,>-Panic High,A-Abnormal,AA-Critical Abnormal Performed at: [address] [address] Vikki Rivera MD, SPATULA-ALONE [facility] Healthcar e RECURRENT VAGINITIS (HTRX)on 05-26-2025 ATOPOBIUM VAGINAE 0 [facility] ATOPOBIUM VAGINAE Not detected [facility] BVAB 2,3 (BACTERIAL VAGINOSIS ASSOCIATED BACTERIA 2, 3); MOBILUNCUS SPP 0 [facility] BVAB 2,3 (BACTERIAL VAGINOSIS ASSOCIATED BACTERIA 2, 3); MOBILUNCUS SPP Not detected [facility] SIRIA ALBICANS, PARAPSILOSIS, TROPICALIS 0 [facility] SIRIA ALBICANS, PARAPSILOSIS, TROPICALIS Not detected [facility] SIRIA GLABRATA 0 [facility] SIRIA GLABRATA Not detected [facility] SIRIA KRUSEI 0 [facility] SIRIA KRUSEI Not detected [facility] CHLAMYDIA TRACHOMATIS 0 [facility] CHLAMYDIA TRACHOMATIS Not detected [facility] GARDNERELLA VAGINALIS 0 [facility] GARDNERELLA VAGINALIS Not detected [facility] MEGASPHAERA (TYPES 1, 2) 0 [facility] MEGASPHAERA (TYPES 1, 2) Not detected [facility] MYCOPLASMA GENITALIUM 0 [facility] MYCOPLASMA GENITALIUM Not detected [facility] NEISSERIA GONORRHOEAE 0 [facility] NEISSERIA GONORRHOEAE Not detected [facility] TRICHOMONAS VAGINALIS 0 [facility] TRICHOMONAS VAGINALIS Not detected [facility] Urinalysis macro (dipstick) panel (U)on 05-25-2025 Bilirubin, UA Negative Negative - 4(70) +++ mg/dL [facility] Blood, UA Negative Negative - 50 Felice/mcL [facility] Clarity, UA Clear [facility] re Color, UA Yellow [facility] Healthcar e Glucose, UA Negative Negative - 1999(110) ++++ mg/dL [facility] Interpretation and review of laboratory results Abnormal [facility] Ketones, UA Negative Negative - 160(16) ++++ mg/dL [facility] Leukocytes, UA Positive Negative - 500+++ Regina/mcL [facility] Nitrite, UA Negative Negative - Positive [facility] pH, UA 8.5 5 - 9 [facility] Protein, UA Positive Negative - 1999(20) ++++ mg/dL [facility] Spec Grav, UA 1.01 1 - 1.03 [facility] Urobilinogen, UA 1.0 0.2 - 12 mg/dL [facility] HCG ( test) Ql (U)o n 05-14-2025 Interpretation and review of laboratory results Abnormal [facility] Preg Test, Ur Positive Negative [facility] US OB LIMITED 1+ FETUSESon 0 05-14-2025 US OB LIMITED 1+ FETUSES FINDINGS: No prior examinations. A single, live [...] BY: ELECTRONICALLY SIGNED BY: Gil Godwin MD Normal Not Available Comment on above: Order Comment: US OB TRANSVAGINAL No LMP recorded. Urinalysis macro (dipstick) panel (U)on 05-14-2025 Bilirubin, UA Negative Negative - 4(70) +++ mg/dL [facility] Blood, UA Negative Negative - 50 Felice/mcL [facility] Clarity, UA Clear [facility] Color, UA Yellow [facility] Glucose, UA Trace Negative - 1999(110) ++++ mg/dL [facility] Interpretation and review of laboratory results Abnormal [facility] Ketones, UA Negative Negative - 160(16) ++++ mg/dL [facility] Leukocytes, UA Positive Negative - 500+++ Regina/mcL [facility] Nitrite, UA Negative Negative - Positive [facility] pH, UA 7.5 5 - 9 [facility] Protein, UA Trace Negative - 1999(20) ++++ mg/dL [facility] Spec Grav, UA 1.01 1 - 1.03 [facility] Urobilinogen, UA 1.0 0.2 - 12 mg/dL [facility] Urinalysis macro (dipstick) panel (U)on 11-27-2023 Bilirubin, UA Negative Negative - 4(70) +++ mg/dL [facility] Healthcare Blood, UA Negative Negative - 50 Felice/mcL [facility] Clarity, UA Clear [facility] Color, UA Yellow [facility] Glucose, UA Negative Negative - 1999(110) ++++ mg/dL [facility] Interpretation and review of laboratory results Normal [facility] Ketones, UA Negative Negative - 160(16) ++++ mg/dL [facility] Leukocytes, UA Negative Negative - 500+++ Regina/mcL [facility] Nitrite, UA Negative Negative - Positive [facility] pH, UA 5.5 5 - 9 [facility] Protein, UA Negative Negative - 1999(20) ++++ mg/dL [facility] Spec Grav, UA 1.030 1 - 1.03 [facility] Urobilinogen, UA 0.2 0.2 - 12 mg/dL [facility] PREG QUANT HCGon 01-28-2023 HCG QUANT 17 mIU/mL Normal [facility] Comment on above: Performed By: #### P REGQNT #### [facility] [address] [place] [address] Dr. Anna Romero HCG RANGE SEE BELOW Normal [facility] Comment on above: Result Comment: 5-50 0.2-1 WEEK 50-500 1-2 WEEKS 100-5,000 2-3 WEEKS 500-10,000 3-4 WEEKS 1,000-50,000 4-5 WEEKS 10,000-100,000 5-6 WEEKS 15,000-200,000 6-8 WEEKS 10,000-100,000 2-3 MONTHS Performed By: #### P REGQNT #### [facility] [address] [place] [address] Dr. Anna Romero PREG QUANT HCGon 01-23-2023 HCG QUANT 441 mIU/mL Normal [facility] Comment on above: Performed By: #### S SCRN, GRASTCX #### [facility] [address] [place] [address] Dr. Anna Romero HCG RANGE SEE BELOW Normal [facility] Comment on above: Result Comment: 5-50 0.2-1 WEEK 50-500 1-2 WEEKS 100-5,000 2-3 WEEKS 500-10,000 3-4 WEEKS 1,000-50,000 4-5 WEEKS 10,000-100,000 5-6 WEEKS 15,000-200,000 6-8 WEEKS 10,000-100,000 2-3 MONTHS Performed By: #### S SCRN, GRASTCX #### [facility] [address] [place] [address] Dr. Anna Romero ABO AND RH TYPEon 01-21-2023 ABO and Rh group Nom (Bld) ABO Rh Typing A Rh Positive Normal [facility] Comment on above: Performed By: #### S SCRN, GRASTCX #### [facility] [address] [place] [address] Dr. Anna Romero ER URINE PROFILEon 3 Bilirubin Ql (U) Negative Normal NEGATIVE [facility] Comment on above: Performed By: #### E RUR, UMICRO #### [facility] [address] [address] [address] Anna Romero Clarity (U) CLEAR Normal CLEAR [facility] Comment on above: Performed By: #### JD URIASRO #### [facility] [address] [address] [address] Anna Romero Color (U) YELLOW Normal YELLOW [facility] Comment on above: Performed By: #### JD URIASRO #### [facility] [address] [place] [address] Dr. Anna BAER A micrscopic examination will be performed if indicated. Normal [facility] Comment on above: Performed By: #### JD URIASRO #### [facility] [address] [place] [address] Dr. Anna Romero Glucose Ql (U) Negative Normal NEGATIVE [facility] Comment on above: Performed By: #### JD URIASRO #### [facility] [address] [place] [address] Dr. Anna Romero Hemoglobin Ql (U) LARGE Abnormal NEGATIVE [facility] Comment on above: Performed By: #### JD URIASRO #### [facility] [address] [place] [address] Dr. Anna Romero Ketones Ql (U) Negative Normal NEGATIVE [facility] Comment on above: Performed By: #### VINCENT URIAS #### [facility] [address] [place] [address] Dr. Anna Romero LEUKOCYTES Negative Normal NEGATIVE [facility] Comment on above: Performed By: #### JD URIASRO #### [facility] [address] [place] [address] Dr. Anna Romero Nitrite Ql (U) Negative Normal NEGATIVE [facility] Comment on above: Performed By: #### JD URIASRO #### [facility] [address] [place] [address] Dr. Anna Romero pH (U) 5.5 [pH] Normal 5-9 [facility] Comment on above: Performed By: #### E RUR, UMICRO #### [facility] [address] [place] [address] Dr. Anna Romero SPEC GRAVITY >=1.030 Abnormal 1.005-<=1.025 [place] Comment on above: Performed By: #### E RUR, UMICRO #### [facility] [address] [place] [address] Dr. Anna Romero UA PROTEIN TRACE Normal NEGATIVE/ TRACE [facility] Comment on above: Performed By: #### E RUR, UMICRO #### [facility] [address] [place] [address] Dr. Anna Romero UR MICRO IND INDICATED Normal [facility] Comment on above: Performed By: #### E RUR, UMICRO #### [facility] [address] [place] [address] Dr. Anna Romero Urobilinogen Qn (U) 0.2 {Joel'U}/dL Normal 0.2 - 1. 0 [facility] Comment on above: Performed By: #### E RUR, UMICRO #### [facility] [address] [place] [address] Dr. Anan Romero PREG QUANT HCGon 01-21-2023 HCG QUANT 1693 mIU/mL Normal [facility] Comment on above: Performed By: #### S SCRN, GRASTCX #### [facility] [address] [place] [address] Dr. Anna Romero HCG RANGE SEE BELOW Normal [facility] Comment on above: Result Comment: 5-50 0.2-1 WEEK 50-500 1-2 WEEKS 100-5,000 2-3 WEEKS 500-10,000 3-4 WEEKS 1,000-50,000 4-5 WEEKS 10,000-100,000 5-6 WEEKS 15,000-200,000 6-8 WEEKS 10,000-100,000 2-3 MONTHS Performed By: #### S SCRN, GRASTCX #### [facility] [address] [place] [address] Dr. Anna Romero URINE MICROSCOPIC ONLYon BACTERIA TRACE Abnormal NONE SEEN [facility] Comment on above: Performed By: #### E RUR, UMICRO #### [facility] [address] [place] [address] Dr. Anna Romero Bacteria identified Cx Nom (U) NOT INDICATED Normal [facility] Comment on above: Performed By: #### E RUR, UMICRO #### [facility] [address] [place] [address] Dr. Anna Romero CAST NONE SEEN Normal NONE SEEN [facility] Comment on above: Performed By: #### E RUR, UMICRO #### [facility] [address] [place] [address] Dr. Anna Romero Crystals LM Nom (Urine sed) NONE SEEN Normal NONE SEEN [facility] Comment on above: Performed By: #### E RUR, UMICRO #### [facility] [address] [place] [address] Dr. Anna Romero Epithelial cells LM Ql (Urine sed) RARE Normal NONE SEEN /RARE [facility] Comment on above: Performed By: #### E RUR, UMICRO #### [facility] [address] [place] [address] Dr. Anna Romero MUCOUS TRACE Abnormal NONE SEEN [facility] Comment on above: Performed By: #### E RUR, UMICRO #### [facility] [address] [place] [address] Dr. Anna Romero RBC 2-5 Abnormal 0-2 [facility] Comment on above: Performed By: #### E RUR, UMICRO #### [facility] [address] [place] [address] Dr. Anna Romero WBC 0-2 Abnormal NONE SEEN [facility] Comment on above: Performed By: #### E RUR, UMICRO #### [facility] [address] [place] [address] Dr. Anna Romero US PREG TVon 01-21-2023 [...] Bilirubin Ql (U) Negative Normal NEGATIVE [facility] Comment on above: Performed By: #### E RUR #### [facility] [address] [place] [address] Dr. Anna Romero Clarity (U) CLEAR Normal CLEAR [facility] Comment on above: Performed By: #### E RUR #### [facility] [address] [place] [address] Dr. Anna Romero Color (U) YELLOW Normal YELLOW [facility] Comment on above: Performed By: #### E RUR #### [facility] [address] [place] [address] Dr. Anna BARE A micrscopic examination will be performed if indicated. Normal [facility] Comment on above: Performed By: #### E RUR #### [facility] [address] [place] [address] Dr. Anna Romero Glucose Ql (U) Negative Normal NEGATIVE [facility] Comment on above: Performed By: #### E RUR #### [facility] [address] [place] [address] Dr. Anna Romero Hemoglobin Ql (U) Negative Normal NEGATIVE [facility] Comment on above: Performed By: #### E RUR #### [facility] [address] [place] [address] Dr. Anna Romero Ketones Ql (U) Negative Normal NEGATIVE [facility] Comment on above: Performed By: #### E RUR #### [facility] [address] [place] [address] Dr. Anna Romero LEUKOCYTES Negative Normal NEGATIVE [facility] Comment on above: Performed By: #### E RUR #### [facility] [address] [place] [address] Dr. Anna Romero Nitrite Ql (U) Negative Normal NEGATIVE [facility] Comment on above: Performed By: #### E RUR #### [facility] [address] [place] [address] Dr. Anna Romero pH (U) 6.5 [pH] Normal 5-9 [facility] Comment on above: Performed By: #### E RUR #### [facility] [address] [place] [address] Dr. Anna Romero SPEC GRAVITY 1.025 Normal 1.005-<=1.025 [facility] Comment on above: Performed By: #### E RUR #### [facility] [address] [place] [address] Dr. Anna Romero UA PROTEIN TRACE Normal NEGATIVE/ TRACE [facility] Comment on above: Performed By: #### E RUR #### [facility] [address] [place] [address] Dr. Anna Romero UR MICRO IND NOT INDICATED Normal [facility] Comment on above: Performed By: #### E RUR #### [facility] [address] [place] [address] Dr. Anna Romero Urobilinogen Qn (U) 0.2 {Joel'U}/dL Normal 0.2 - 1. 0 [facility] Comment on above: Performed By: #### E RUR #### [facility] [address] [place] [address] Dr. Anna Romero GROUP A STREP CULTUREon 12-13 S. pyogenes Ag Ql (Unsp spec) Culture Observations: NEGATIVE FOR GROUP A STREPTOCOCCUS. Normal [facility] Comment on above: Performed By: #### S SCRN, GRASTCX #### [facility] [address] [place] [address] Dr. Anna Romero STREPT SCREENon 01-08-2023 STREP SCREEN A Negative Normal NEGATIVE [facility] Comment on above: Performed By: #### S SCRN, GRASTCX #### [facility] [address] [place] [address] Dr. Anna Romero SYMPTOMATIC COVID-19 ANTIGEN on 01-08-2023 EUA Statement SEE BELOW Normal [facility] Comment on above: Result Comment: This test [...] SCRN, GRASTCX #### [facility] [address] [place] [address] Dr. Anna Romero SARS-CoV-2 (COVID-19) RNA DAVY+probe Ql (Unsp spec) Positive Abnormal NEGATIVE [facility] Comment on above: Performed By: #### S SCRDAT WebsterTCX #### [facility] [address] [place] [address] Dr. Anna Romero US PREG TVon 05-31-2022 [...] Bilirubin [Mass/Vol] 0.3 mg/dL Normal 0.2-1.0 [facility] Comment on above: Performed By: #### T DALE #### [facility] [address] [place] [address] Dr. Anna Romero CBC AUTO DIFFon 03-16-2022 BASO # 0.0 103/ul Normal 0.0-0.1 [facility] Comment on above: Performed By: #### C BC #### [facility] [address] [place] [address] Dr. Anna Romero Basophils/100 WBC (Bld) 0.4 % Normal 0.2-2.0 [facility] Comment on above: Performed By: #### C BC #### [facility] [address] [place] [address] Dr. Anna Romero EO # 0.0 103/ul Normal 0.0-0.7 [facility] Comment on above: Performed By: #### C BC #### [facility] [address] [place] [address] Dr. Anna Romero Eosinophils/100 WBC (Bld) 0.2 % Critically low 0.9-7.0 [facility] Comment on above: Performed By: #### C BC #### [facility] [address] [place] [address] Dr. Anna Romero Erythrocyte distribution width (RBC) [Ratio] 12.8 % Normal 11.0-15.0 [facility] Comment on above: Performed By: #### C BC #### [facility] [address] [place] [address] Dr. Anna Romero Hematocrit (Bld) [Volume fraction] 39.2 % Normal 36.0-48.0 [facility] Comment on above: Performed By: #### C BC #### [facility] [address] [place] [address] Dr. Anna Romero Hemoglobin (Bld) [Mass/Vol] 12.9 g/dL Normal 12.0-16.0 [facility] Comment on above: Performed By: #### C BC #### [facility] [address] [place] [address] Dr. Anna Romero IG # 0.01 10e3/ul Normal 0.00-0.03 [facility] Comment on above: Performed By: #### C BC #### [facility] [address] [place] [address] Dr. Anna Romero IG % 0.2 % Normal 0.0-0.5 [facility] Comment on above: Performed By: #### C BC #### [facility] [address] [place] [address] Dr. Anna Romero LYMPH # 1.6 103/ul Normal 1.2-3.8 [facility] Comment on above: Performed By: #### C BC #### [facility] [address] [place] [address] Dr. Anna Romero Lymphocytes/100 WBC (Bld) 29.8 % Normal 20.5-60.0 [facility] Comment on above: Performed By: #### C BC #### [facility] [address] [place] [address] Dr. Anna Romero MANUAL DIFF REQ NO Normal [facility] Comment on above: Performed By: #### C BC #### [facility] [address] [place] [address] Dr. Anna Romero MCH (RBC) [Entitic mass] 31.8 pg Normal 26.7-34.0 [facility] Comment on above: Performed By: #### C BC #### [facility] [address] [place] [address] Dr. Anna Romero MCHC (RBC) [Mass/Vol] 32.9 g/dL Normal 29.9-35.2 [facility] Comment on above: Performed By: #### C BC #### [facility] [address] [place] [address] Dr. Anna Romero MCV (RBC) [Entitic vol] 96.6 fL Normal 81.0-99.0 [facility] Comment on above: Performed By: #### C BC #### [facility] [address] [place] [address] Dr. Anna Romero MONO # 0.4 103/ul Normal 0.3-0.8 [facility] Comment on above: Performed By: #### C BC #### [facility] [address] [place] [address] Dr. Anna Romero Monocytes/100 WBC (Bld) 7.2 % Normal 1.7-12.0 [facility] Comment on above: Performed By: #### C BC #### [facility] [address] [place] [address] Dr. Anna Romero NEUT # 3.3 103/ul Normal 1.4-6.5 [facility] Comment on above: Performed By: #### C BC #### [facility] [address] [place] [address] Dr. Anna Romero Neutrophils/100 WBC (Bld) 62.2 % Normal 43.0-75.0 [facility] Comment on above: Performed By: #### C BC #### [facility] [address] [place] [address] Dr. Anna Romero Platelet mean volume (Bld) [Entitic vol] 10.0 fL Normal 9.5-13.5 [facility] Comment on above: Performed By: #### C BC #### [facility] [address] [place] [address] Dr. Anna Romero PLT 153 103/ul Normal 150-450 [facility] Comment on above: Performed By: #### C BC #### [facility] [address] [address] [address] Anna Romero RBC 4.06 106/ul Critically low 4.20-5.40 [facility] Comment on above: Performed By: #### C BC #### [facility] [address] [place] [address] Dr. Anna Romero WBC 5.3 103/ul Normal 4.0-11.0 [facility] Comment on above: Performed By: #### C BC #### [facility] [address] [place] [address] Dr. Anna Romero FREE T3on 03-16-2022 FREE T3 3.18 pg/mlL Normal 2.18-3.98 [facility] Comment on above: Performed By: #### S CARLA GRASTCX #### [facility] [address] [place] [address] Dr. Anna Romero FREE T4on 03-16-2022 Free T4 [Mass/Vol] 1.08 ng/dL Normal 0.76-1.46 [facility] Comment on above: Performed By: #### F T4 #### [facility] [address] [place] [address] Dr. Anna Romero PROF 14(COMP METB)on 022 Albumin [Mass/Vol] 4.3 g/dL Normal 3.4-5.0 [facility] Comment on above: Performed By: #### S SCREleanor GRASTCX #### [facility] [address] [place] [address] Dr. Anna Romero Albumin/Globulin [Mass ratio] 1.2 {ratio} Normal [facility] Comment on above: Performed By: #### S SCRN, GRASTCX #### [facility] [address] [address] [address] Anna Romero ALP [Catalytic activity/Vol] 60 U/L Normal 46-116 [facility] Comment on above: Performed By: #### S SCRN, GRASTCX #### [facility] [address] [address] [address] Anna Romero ALT [Catalytic activity/Vol] 25 U/L Normal 14-59 [facility] Comment on above: Performed By: #### S SCRN, GRASTCX #### [facility] [address] [address] [address] Anna Romero Anion gap [Moles/Vol] 13.8 mmol/L Normal [facility] Comment on above: Performed By: #### S SCRN, GRASTCX #### [facility] [address] [address] [address] Anna Romero AST [Catalytic activity/Vol] 21 U/L Normal 15-37 [facility] Comment on above: Performed By: #### S SCRN, GRASTCX #### [facility] [address] [address] [address] Anna Romero Calcium [Mass/Vol] 9.4 mg/dL Normal 8.5-10.1 [facility] Comment on above: Performed By: #### S SCRN, GRASTCX #### [facility] [address] [address] [address] Anna Romero Chloride [Moles/Vol] 101 mmol/L Normal 98-107 [facility] Comment on above: Performed By: #### S SCRN, GRASTCX #### [facility] [address] [address] [address] Anna Romero CO2 [Moles/Vol] 26.8 mmol/L Normal 21.0-32.0 [facility] Comment on above: Performed By: #### S SCRN, GRASTCX #### [facility] [address] [address] [address] Anna Romero Creatinine [Mass/Vol] 0.87 mg/dL Normal 0.55-1.02 [facility] Comment on above: Performed By: #### S SCRN, GRASTCX #### [facility] [address] [place] [address] Dr. Anna Romero EGFR-AF CHINESE >60 Normal >=60 [facility] Comment on above: Performed By: #### S SCRN, GRASTCX #### [facility] [address] [place] [address] Dr. Anna Romero EGFR-NON AF CHINESE >60 Normal >=60 [facility] Comment on above: Performed By: #### S SCRN, GRASTCX #### [facility] [address] [place] [address] Dr. Anna Romero Globulin (S) [Mass/Vol] 3.5 g/dL Normal [facility] Comment on above: Performed By: #### S SCRN, GRASTCX #### [facility] [address] [place] [address] Dr. Anna Romero Glucose [Mass/Vol] 80 mg/dL Normal 74-106 [facility] Comment on above: Performed By: #### S SCRN, GRASTCX #### [facility] [address] [place] [address] Dr. Anna Romero Potassium [Moles/Vol] 3.6 mmol/L Normal 3.5-5.1 [facility] Comment on above: Performed By: #### S SCRN, GRASTCX #### [facility] [address] [place] [address] Dr. Anna Romero Protein [Mass/Vol] 7.8 g/dL Normal 6.4-8.2 [facility] Comment on above: Performed By: #### S SCRN, GRASTCX #### [facility] [address] [place] [address] Dr. Anna Romero Sodium [Moles/Vol] 138 mmol/L Normal 136-145 [facility] Comment on above: Performed By: #### S SCRN, GRASTCX #### [facility] [address] [place] [address] Dr. Anna Romero Urea nitrogen [Mass/Vol] 12.0 mg/dL Normal 7.0-18.0 [facility] Comment on above: Performed By: #### S SCRN, GRASTCX #### [facility] [address] [place] [address] Dr. Anna Romero Urea nitrogen/Creatinine [Mass ratio] 13.8 mg/mg Normal [facility] Comment on above: Performed By: #### S SCRN, GRASTCX #### [facility] [address] [place] [address] Dr. Anna Romero TSHon 03-16-2022 TSH 2.442 uIU/mL Normal 0.358-3.740 [facility] Comment on above: Performed By: #### S SCRN, GRASTCX #### [facility] [address] [place] [address] Dr. Anna Romero TSH RANGE SEE BELOW Normal [facility] Comment on above: Result Comment: <0.3 4 UIU/ml HYPERTHYROID 0.34-5.60 UIU/ml EUTHYROID >5.60 UIU/ml HYPOTHYROID Performed By: #### S SCRN, GRASTCX #### [facility] [address] [place] [address] Dr. Anna Romero Vital Signs Date Time Vital Sign Value Performing Clinician Faci lity 05-25-2025 10:15-0400 Body mass index (BMI) [Ratio] 22.4 kg/m2 BriaYouxigu Work Phone: [facility] 05-25-2025 [id number] Body weight 62.96 kg MascotaNube Work Phone: [facility] 05-25-2025 10:15-0400 Diastolic blood pressure 60 mm[Hg] [employer] Work Phone: [facility] 05-25-2025 10:15-0400 Systolic blood pressure 100 mm[Hg] BriaYouxigu Work Phone: [facility] 05-14-2025 11:07-0400 Body mass index (BMI) [Ratio] 21.79 kg/m2 Nii Ob [facility] 05-14-2025 11:07-0400 Body weight 61.24 kg Nii Ob [facility] 11-27-2023 14:46-0500 Body mass index (BMI) [Ratio] 25.66 kg/m2 Rosana HAYES Work Phone: [facility] 11-27-2023 14:46-0500 Body weight 72.12 kg Rosana HAYES Work Phone: [facility] 11-27-2023 14:46-0500 Diastolic blood pressure 60 mm[Hg] Rosana HAYES Work Phone: [facility] 11-27-2023 14:46-0500 Systolic blood pressure 102 mm[Hg] Rosana HAYES Work Phone: [facility] 10-16-2023 12:21-0500 Body height 170.2 cm Haseeb Nice MD Work Phone: [facility] 10-16-2023 12:21-0500 Body mass index (BMI) [Ratio] 22.55 kg/m2 Haseeb Nice MD Work Phone: [facility] 10-16-2023 12:21-0500 Body weight 65.32 kg Haseeb Nice MD Work Phone: [facility] 10-16-2023 12:21-0500 Diastolic blood pressure 66 mm[Hg] Haseeb Nice MD Work Phone: [facility] 10-16-2023 12:21-0500 Heart rate 79 /min Haseeb Nice MD Work Phone: [facility] 10-16-2023 12:21-0500 Systolic blood pressure 109 mm[Hg] Haseeb Nice MD Work Phone: [facility] Encounters Encounter Date Encounter Type Care Provider Facility Start: 05-25-2025 End: 05-25-2025 Bamboo flowsheet Bria Nii DO Work Phone: [facility] Start: 05-25-2025 End: 05-27-2025 Bamboo flowsheet Bria Nii DO Work Phone: [facility] Start: 05-25-2025 End: 05-27-2025 Clinisync Result Encounter Bria Nii DO Work Phone: [facility] Unsolicited Start: 05-25-2025 End: 05-26-2025 External Result Encounter Bria Nii DO Work Phone: [facility] Unsolicited Start: 05-25-2025 End: 05-25-2025 Patient encounter procedure Bria Nii DO Work Phone: [facility] Start: 05-25-2025 End: 05-25-2025 Periodic preventive med est patient 18-39 yrs Bria Nii DO Work Phone: [facility] Comment on above: 18 weeks gestation o f ([facility]); Second trimester ([facility]); Well woman exam with routine gynecological exam; Screening, , for anatomic survey ([facility]); Exposure to STD; Vaginal discharge; Thyroid disease Start: 05-25-2025 End: 05-25-2025 ambulatory BRIA NII Not Available Start: 05-14-2025 End: 05-14-2025 Office outpatient visit 5 minutes Nii Nurse [facility] Comment on above: GA: [id number] Start: 05-14-2025 End: 05-14-2025 ambulatory BRIA NII Not Available Start: 11-27-2023 End: 11-27-2023 Office outpatient visit 15 minutes Rosana HAYES Work Phone: [facility] Comment on above: Second trimester pre gnancy; with normal glucose tolerance test (GTT); Diabetes mellitus screening; History of miscarriage; History of oligohydramnios Start: 11-19-2023 End: 11-20-2023 ambulatory BRIA R NII [facility] Start: 10-29-2023 End: 10-30-2023 ambulatory BRIA R NII [facility] Start: 10-22-2023 Documentation procedure Haseeb Nice MD Work Phone: [facility] Comment on above: History of oligohydr amnios in prior , currently (Primary Dx); 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; History of delivery, currently Start: 10-22-2023 Telephone encounter Rachelle Penn PN [facility] Start: 10-21-2023 Chart abstracting Aliya berger MD Work Phone: [facility] Start: 10-17-2023 Orders Only Robbi Rodriguez [facility] Comment on above: History of oligohydr amnios in prior , currently (Primary Dx) Start: 10-16-2023 End: 10-17-2023 ambulatory BRIA Lemso [facility] Start: 10-16-2023 End: 10-16-2023 Office outpatient new 45 minutes Haseeb Nice MD Work Phone: [facility] Comment on above: High-risk in second trimester (Primary Dx); History of oligohydramnios in prior , currently ; 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; 20 weeks gestation of Start: 10-15-2023 Chart abstracting Scanning Pro vider External [facility] Start: 01-28-2023 End: 01-29-[address] BRIA BALES . Facility:[facility] Start: 01-23-2023 End: 01-24-[address] BRIA BALES . Facility:[facility] Start: 01-22-2023 End: 01-22-2023 ambulatory JOANN ZAZUETA . Facility:[facility] Start: 01-21-2023 End: 01-21-2023 ambulatory CASSANDRA ROSALES Facility:[facility] Start: 01-08-2023 End: 01-08-[address] DEBBIE WELLS Facility:[facility] Start: 10-20-2022 End: 10-20-2022 ambulatory CASSANDRA ROSALES Facility: Start: 07-20-[address] BRIA ABLES . Facili ty:[facility] Start: 05-31-2022 End: 06-01-[address] BRIA BALES . Facility:[facility] Start: 05-17-[address] BRIA BALES . Facili ty:[facility] Start: 03-16-2022 End: 03-17-[address] MARIS MARCH . Facility:[facility] Start: 03-03-2022 End: 03-03-2022 ambulatory CASSANDRA ROSALES Facility: Procedures Date Procedure Procedure Detail Performing Clinician Start: 05-25-2025 RECURRENT VAGINITIS (HTRX) Bria Bales DO Work Phone: Start: 05-25-2025 Urnls dip stick/tabl et rgnt non-auto w/o micrscp Bria Bales DO Work Phone: Start: 05-25-2025 IGP,APTIMA HPV,AGE GDLN Bria Bales DO Work Phone: Start: 05-14-2025 End: 05-14-2025 Urnls dip stick/tablet rgnt non-auto w/o micrscp Bria Bales DO Work Phone: Start: 11-27-2023 Urnls dip stick/tabl et rgnt non-auto w/o micrscp Rosana HAYES Work Phone: Start: 09-09-2023 Microscopic observat ion [Identifier] in Cervix by Cyto stain Nii Ob Plan of Treatment Date Care Activity Detail Author Start: 10-20-2032 DTaP,Tdap and Td Vaccines (9 - Td or Tdap) DTaP,Tdap and Td Vaccines (9 - Td or Tdap) [facility] Start: 09-09-2028 Screening for malign ant neoplasm of cervix [facility] Start: 06-22-2025 End: 06-22-2025 Patient encounter procedure 06/22/2025 9:50 AM EDT Routine [facility] [address] [place] [address] [place] [id number] Bria Bales, [address] [place] [address] [facility] Start: 06-14-2025 Influenza vaccination Influenza Vacc ine (#1) [facility] Start: 06-09-2025 End: 06-09-2025 Professional / ancillary services management 06/09/2025 11:00 AM EDT Ancillary Procedure [facility] [address] [place] [id number] [facility] Start: 05-25-2025 End: 07-25-2025 Alpha fetoprotein, maternal Alpha fetoprotein, maternal Lab Routine 18 weeks gestation of ([facility]) Second trimester ([facility]) Expected: 05/25/2025 (Approximate), Expires: 07/25/2025 [facility] Comment on above: Expected: 05/25/2025 (Approximate), Expires: 07/25/2025 Start: 05-25-2025 End: 05-25-2026 Thyrotropin [Units/volume] in Serum or Plasma TSH Lab Routine Thyroid disease Expected: 05/25/2025 (Approximate), Expires: 05/25/2026 [facility] Comment on above: Expected: 05/25/2025 (Approximate), Expires: 05/25/2026 Start: 05-25-2025 End: 08-25-2025 US for US OB 14+ weeks anatomy scan Imaging Routine Screening, , for anatomic survey ([facility]) Expected: 05/25/2025, Expires: 08/25/2025 [facility] Comment on above: Expected: 05/25/2025 , Expires: 08/25/2025 Start: 05-25-2025 End: 05-25-2025 Patient encounter procedure [facility] Comment on above: Arrived Start: 05-14-2025 End: 05-14-2026 ABO/Rh ABO/Rh Lab Routine Missed menses , unspecified gestational age ([facility]) Expected: 05/14/2025 (Approximate), Expires: 05/14/2026 [facility] Comment on above: Expected: 05/14/2025 (Approximate), Expires: 05/14/2026 Start: 05-14-2025 End: 05-14-2026 Blood type and Indirect antibody screen panel - Blood Type and screen Lab Routine Missed menses , unspecified gestational age ([facility]) Expected: 05/14/2025 (Approximate), Expires: 05/14/2026 [facility] Work Phone: Comment on above: Expected: 05/14/2025 (Approximate), Expires: 05/14/2026 Start: 05-14-2025 End: 05-14-2026 Drugs of abuse panel - Urine by Screen method Rapid drug screen, urine Lab Routine , unspecified gestational age ([facility]) Encounter for supervision of normal first in first trimester ([facility]) Expected: 05/14/2025 (Approximate), Expires: 05/14/2026 [facility] Comment on above: Expected: 05/14/2025 (Approximate), Expires: 05/14/2026 Start: 10-22-2024 End: 10-22-2024 US MFM with or without consult US MFM with or without consult Imaging Routine History of oligohydramnios in prior , currently 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 History of delivery, currently Expected: 10/22/2024 (Approximate), Expires: 10/22/2024 [employer] Work Phone: Comment on above: Expected: 10/22/2024 (Approximate), Expires: 10/22/2024 Start: 10-17-2024 End: 10-17-2024 US MFM with or without consult US MFM with or without consult Imaging Routine History of oligohydramnios in prior , currently Expected: 10/17/2024 (Approximate), Expires: 10/17/2024 [employer] Work Phone: Comment on above: Expected: 10/17/2024 (Approximate), Expires: 10/17/2024 Start: 10-16-2024 Adult BMI Screening Adult BMI Screen ing [facility] Start: 10-16-2024 Tobacco Screening Tobacco Screening [facility] Start: 12-11-2023 End: 12-11-2023 Patient encounter procedure 12/11/2023 10:20 AM EST Routine [facility] [address] [place] [phone] Bria Bales, DO [address] [place] [address] [facility] Start: 11-27-2023 End: 11-27-2024 CBC panel - Blood by Automated count CBC Lab Routine Diabetes mellitus screening Expected: 11/27/2023 (Approximate), Expires: 11/27/2024 [facility] Work Phone: Comment on above: Expected: 11/27/2023 (Approximate), Expires: 11/27/2024 Start: 11-27-2023 End: 11-27-2024 Measurement of glucose 1 hour after glucose challenge for glucose tolerance test Glucose tolerance, 1 hour Lab Routine Diabetes mellitus screening Expected: 11/27/2023 (Approximate), Expires: 11/27/2024 [facility] Comment on above: Expected: 11/27/2023 (Approximate), Expires: 11/27/2024 Start: 11-27-2023 End: 11-27-2024 US biophysical profile w non stress test US biophysical profile w non stress test Imaging Routine History of miscarriage History of oligohydramnios Expected: 11/27/2023 (Approximate), Expires: 11/27/2024 [facility] Comment on above: Expected: 11/27/2023 (Approximate), Expires: 11/27/2024 Start: 11-27-2023 End: 11-27-2024 US for US OB SCAN FOR GROWTH Imaging Routine History of miscarriage History of oligohydramnios Expected: 11/27/2023 (Approximate), Expires: 11/27/2024 [facility] Comment on above: Expected: 11/27/2023 (Approximate), Expires: 11/27/2024 Start: 11-19-2023 End: 11-19-2023 Patient encounter procedure 11/19/2023 9:15 AM EST Appointment [facility] Ultrasound [address] [place] [address] [facility] Start: 10-29-2023 End: 10-29-2023 Patient encounter procedure 10/29/2023 9:15 AM EST Appointment [facility] [address] [place] [address] [facility] Start: 10-16-2023 End: 10-16-2023 Patient encounter procedure 10/16/2023 1:00 PM EST Office Visit Maternal- Medicine at [facility] [address] [place] [phone] Haseeb Nice MD [address] [facility] [address] [facility], [address] [place] [address] [facility] at [facility] Start: 10-16-2023 Subsequent hospital visit by physician 10/16/2023 11:30 AM EST Hospital Encounter [facility] Imaging [address] [place] [phone] [facility] Start: 06-14-2023 Influenza vaccination Influenza Vacc ine [facility] Start: 2014 Screening for malign ant neoplasm of cervix Pap Smear [facility] Start: 2012 DTaP,Tdap and Td Vaccines (1 - Tdap) DTaP,Tdap and Td Vaccines (1 - Tdap) [facility] Start: 2011 Adult BMI Screening Adult BMI Screen ing [facility] Start: 2005 Depression Screening Depression Scre ening [facility] Start: 2005 Tobacco Screening Tobacco Screening [facility] Start: 1993 Tobacco Counseling Tobacco Counselin g [facility] Bacteria identified in Urine by Culture Urine culture Microbiology Routine Missed menses Ordered: 05/14/2025 [facility] Comment on above: Ordered: 05/14/2025 CBC W Auto Different ial panel - Blood CBC and differential Lab Routine Missed menses , unspecified gestational age ([facility]) Ordered: 05/14/2025 [facility] Comment on above: Ordered: 05/14/2025 CHLAMYDIA TRACHOMATI S (GENITO/STI) CHLAMYDIA TRACHOMATIS (GENITO/STI) Lab Routine Exposure to STD Ordered: 05/25/2025 [facility] Comment on above: Ordered: 05/25/2025 Cytology Cervical or vaginal smear or scraping study Pap Smear Pathology and Cytology Routine Well woman exam with routine gynecological exam Ordered: 05/25/2025 [facility] Comment on above: Ordered: 05/25/2025 Hemoglobin A1c/Hemoglobin.total in Blood Hemoglobin A1c Lab Routine Missed menses , unspecified gestational age ([facility]) Ordered: 05/14/2025 [facility] Comment on above: Ordered: 05/14/2025 Hepatitis B virus surface Ag [Presence] in Serum or Plasma by Immunoassay Hepatitis B surface antigen Lab Routine Missed menses , unspecified gestational age ([facility]) Ordered: 05/14/2025 [facility] Comment on above: Ordered: 05/14/2025 Hepatitis C virus Ab [Presence] in Serum or Plasma by Immunoassay Hepatitis C antibody Lab Routine Missed menses , unspecified gestational age ([facility]) Ordered: 05/14/2025 [facility] Comment on above: Ordered: 05/14/2025 HIV-1/HIV-2 antigen/antibody combination immunoassay HIV-1 and HIV-2 antibodies Lab Routine Missed menses , unspecified gestational age ([facility]) Ordered: 05/14/2025 [facility] Comment on above: Ordered: 05/14/2025 Human papilloma viru s DNA [Presence] in Unspecified specimen by Probe with amplification HPV DNA probe, amplified Microbiology Routine Well woman exam with routine gynecological exam Ordered: 05/25/2025 [facility] Comment on above: Ordered: 05/25/2025 Neisseria gonorrhoea e DNA [Presence] in Unspecified specimen by DAVY with probe detection Neisseria gonorrhea DNA probe, direct Lab Routine Exposure to STD Ordered: 05/25/2025 [facility] Comment on above: Ordered: 05/25/2025 Reagin Ab [Presence] in Serum by RPR RPR Lab Routine Missed menses , unspecified gestational age ([facility]) Ordered: 05/14/2025 [facility] Comment on above: Ordered: 05/14/2025 Rubella antibody, IgG Rubella an tibody, IgG Lab Routine Missed menses , unspecified gestational age ([facility]) Ordered: 05/14/2025 [facility] Comment on above: Ordered: 05/14/2025 SURESWAB(R) ADVANCED VAGINITIS PLUS, TMA SURESWAB(R) ADVANCED VAGINITIS PLUS, TMA Pathology and Cytology Routine Vaginal discharge Ordered: 05/25/2025 [facility] Work Phone: Comment on above: Ordered: 05/25/2025 Payers Date Payer Category Payer Medicaid [id number] 2023 Private Health Insurance [facility] MEDICAID [id number] 1993 Unknown [id number] 2.16.840.1.726652.3.579.2. 593 1993 Unknown [id number] 2.16.840.1.989725.3.579.2. 593 1993 Unknown [id number] 2.16.840.1.417701.3.579.2. 593 1993 Unknown [id number] 2.16.840.1.178973.3.579.2. 593 1993 Unknown [id number] 2.16.840.1.390351.3.579.2. 593 1993 Unknown [id number] 2.16.840.1.175881.3.579.2. 593 1993 Unknown [id number] 2.16.840.1.662087.3.579.2. 593 1993 Unknown [id number] 2.16.840.1.275753.3.579.2. 593 1993 Unknown [id number] 2.16.840.1.844157.3.579.2. 593 1993 Unknown [id number] 2.16.840.1.116056.3.579.2. 593 1993 Unknown [id number] 2.16.840.1.222855.3.579.2. 593 1993 Unknown [id number] 2.16.840.1.990299.3.579.2. 593 1993 Unknown [id number] 2.16.840.1.893127.3.579.2. 1286 1993 Unknown [id number] 2.16.840.1.703642.3.579.2. 1286 1993 Unknown [id number] 2.16.840.1.833100.3.579.2. 1286 1993 Unknown [id number] 2.16.840.1.016953.3.579.2. 1286 1993 Unknown [id number] 2.16.840.1.255671.3.579.2. 1259 1993 Unknown [id number] 2.16.840.1.230684.3.579.2. 1259 1993 Unknown [id number] 2.16.840.1.964180.3.579.2. 1259 1959 Self-pay [id number] 1959 Unknown [id number] 1959 Unknown [id number] Social History Date Type Detail Facility Start: 10-15-2023 Tobacco smoking status UTIS Tobacco smoking consumption unknown [facility] Start: 06-10-2023 [facility] Start: 1995 Sex Assigned At Female [facility] Start: 08-07-2023 Gender identity Identifies as female gender (finding) [facility] Start: 08-07-2023 Sexual orientation Heterosexual (finding) [facility] Start: 03-23-2019 End: 10-16-2023 History of Social function [facility] Start: 03-23-2019 End: 10-16-2023 Housing Instability [facility] Housing Instability Unknown [facility] Start: 1993 Sex Assigned At Not on file [facility] Start: 10-16-2023 Tobacco smoking status UTIS Smokes tobacco daily [facility] History of tobacco use Cigarette Smoker P [facility] Start: 10-16-2023 Tobacco use and exposure Smokeless tobacco non-user [facility] Start: 10-16-2023 End: 10-21-2023 Alcohol intake Ex-drinker (finding) [facility] Goals Date Patient Goal Desired Activity /State Personal health goal Clinical Notes 03-16-2022 to 05-25-2025 Deepika Frye, DINING ROOM TABLES SET UP ATTENDANT - 05/25/2025 9:40 AM Shahla Rogers, DINING ROOM TABLES SET UP ATTENDANT - 05/14/2025 10:30 AM ABIGAIL Hernandez - 11/27/2023 2:30 PM ESTTelephone Encounter - Rachelle Mullen, DINING ROOM TABLES SET UP ATTENDANT - 10/22/2023 12:28 PM EST Note Date & Type Note Facility 05-25-2025 History of Presen t illness Narrative Reason [...] Oral, Every 6 hours PRN Vit-Fe Fumarate-FA (M-Sindi Plus) 27-1 MG tablet 1 tablet, Oral, [...] nursing note reviewed. Exam conducted with a lithographers printer present. Vitals: Estimated body mass index is 22.4 kg/m as calculated from the following: Height as of 04/02/24: 5' 6 . Weight as of this encounter: 138 lb 12.8 oz. BP: 100/60 No LMP recorded. Patient is . ASSESSMENT & PLAN ICD-10-CM 1. 18 weeks gestation of ([facility]) Z3A.18 POCT urinalysis dipstick manually resulted Alpha fetoprotein, maternal Alpha fetoprotein, maternal 2. Second trimester ([facility]) Z34.92 POCT urinalysis dipstick manually resulted Alpha fetoprotein, maternal Alpha fetoprotein, maternal 3. Well woman exam with routine gynecological exam Z01.419 Pap Smear HPV DNA probe, amplified 4. Screening, , for anatomic survey ([facility]) Z36.89 US OB 14+ weeks anatomy scan US OB 14+ weeks anatomy scan 5. Exposure to STD Z20.2 CHLAMYDIA TRACHOMATIS (GENITO/STI) Neisseria gonorrhea DNA probe, direct 6. Vaginal discharge N89.8 SURESWAB(R) ADVANCED VAGINITIS PLUS, TMA 7. Thyroid disease E07.9 TSH TSH Return OB/Annual Exam: Patient presents today for a annual exam/routine obstetrics appointment. Patient is currently 18w3d . Pt advised to have labs drawn. Pap [...] by Deepika Frye LPN on behalf of: Bria Bales DO documented in this encounter [facility] 05-14-2025 History of Presen t illness Narrative Reason for Appointment: Patient ID: Екатерина Sutherland is a 29 y.o. female who presents for Amenorrhea Patient presents today for a Nurse OB Intake appointment. Patient is 16w6d with a Estimated Date of Delivery: 10/23/25 OB History Para Term AB Living 7 4 3 1 2 3 SAB IAB Ectopic Multiple Live Births 2 4 # Outcome Date GA Lbr Sean/2nd Weight Sex Type Anes PTL Lv 7 Current 6 Term 02/17/24 38w0d 6 lb 7 oz F Vag-Spont ZI 5 11/2016 22w0d F Vag-Spont ND Complications: Oligohydramnios ([facility]) 4 Term 10/25/14 38w0d 6 lb 1 oz F Vag-Spont ZI 3 Term 08/14/12 38w0d 7 lb 9 oz M Vag-Spont ZI 2 SAB 1 SAB Current Medications: has a current medication list which includes the following prescription(s): levothyroxine, ondansetron odt, and m- plus. Medical History: Active Ambulatory Problems Diagnosis [...] Vitals: Estimated body mass index is 24.37 kg/m as calculated from the following: Height [...] urinalysis dipstick manually resulted Positive urine test ([facility]) , unspecified gestational age ([facility]) - Type and screen; Future - ABO/Rh; Future - CBC and differential - Hemoglobin A1c - RPR - Rubella antibody, IgG - Hepatitis B surface antigen - Hepatitis C antibody - HIV-1 and HIV-2 antibodies - Rapid drug screen, urine; Future Encounter for supervision of normal first in first trimester ([facility]) - Rapid drug screen, urine; Future Nausea and vomiting in ([facility]) - ondansetron ODT (Zofran-ODT) 4 MG disintegrating [...] Sana Rogers LPN documented in this encounter [facility] 11-27-2023 History of Presen t illness Narrative [...] Missed menses Non-compliant patient Smoker Thyroid disease ([facility]) No family history on file. Social History [...] of: ABIGAIL Chinchilla documented in this encounter [facility] 10-22-2023 Miscellaneous Notes Formattin g of this note might be different from the original. Please call us back to schedule an ultrasound next week. documented in this encounter [facility] [employer] 10-22-2023 Telephone encount er Note Please call us back to schedule an ultrasound next week. [facility] 10-22-2023 History of Presen t [...] increase p.o. hydration. documented in this encounter [facility] 10-16-2023 History of Presen t illness Narrative Headache/epigastric pain/blurry vision/swelling? No Cramping/contractions? No Abnormal vaginal discharge? No Spotting/vaginal bleeding? No Loss of fluid like your water may have broken? No Cats in the home? No Do you change the litter box? N/A Flu vaccine? No Genetic testing done this here or other office? Yes Have you been seen here at [facility] in a previous ? No Recent ER visits or hospitalizations? No Bring blood sugar log or meter with you today? (Please bring them with you for every visit at [facility]) N/A Traveled outside the country in [...] Yes Not In System Ref Prov vit no.507-avvm-xdbmg acid ( VITAMIN) 27 mg iron- 800 [...] continue with routine care in your office [facility], the CDC, and other organizations representing maternal and public health professionals recommend that , , and lactating people and those considering receive the COVID-19 vaccination. Vaccination is the best method to reduce maternal and complications of SARS-CoV-2 infection. This document was created with [employer] technology. Though I make every effort to review the dictation as it is transcribed, on occasion the spoken word can be misinterpreted by the technology leading to inappropriate words, phrases, or sentences. This note is addressed to the requesting provider as a consultation for clinical guidance. Specific medical abbreviations are occasionally used and those are generally approved by the [place]?Board of?Obstetrics and?Gynecology?as well as?James flores abbreviations. The above plan of care was based solely on the diagnoses for which a consultation was requested. ?More frequent testing may be indicated based on her other medical/obstetrical conditions. The management of other or medical conditions is beyond the scope of requested consultation and will continue to be followed by the primary road repairer or primary care provider. Thank you for allowing me to participate in her care. Please contact me if you have any concerns. documented in this encounter [facility] 03-16-2022 Note PROCEDURE: XR SHOULD [...] [facility] Evaluation note Diagnosis Second trimester state, incidental with normal glucose tolerance test (GTT) Diabetes mellitus screening Screening for diabetes mellitus History of miscarriage Personal history of other genital system and obstetric disorders History of oligohydramnios documented in this encounter [facility]* Diagnosis High-risk in second trimester- Primary History of oligohydramnios in prior , currently with other poor obstetric history 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 20 weeks gestation of documented in this encounter [facility]* Diagnosis History of oligohydramnios in prior , currently - Primary with other poor obstetric history documented in this encounter [facility]* Diagnosis History of oligohydramnios in prior , currently - Primary with other poor obstetric history 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 History of delivery, currently with history of pre-term labor documented in this encounter [facility]* Diagnosis Missed menses Positive urine test ([facility]) , unspecified gestational age ([facility]) Encounter for supervision of normal first in first trimester ([facility]) Nausea and vomiting in ([facility]) Unspecified vomiting of , unspecified as to episode of care [facility] Diagnosis 18 weeks gestation of ([facility]) Second trimester ([facility]) state, incidental Well woman exam with routine gynecological exam Routine gynecological examination Screening, , for anatomic survey ([facility]) Encounter for anatomic survey Exposure to STD Vaginal discharge Leukorrhea, not specified as infective Thyroid disease Unspecified disorder of thyroid documented in this encounter [facility] HealthcareInstructionsNot on filedocumented in this encounterProAk[facility] SystemInstructionsNot on filedocumented in this encounterProV[facility] SystemInstructionsNot on filedocumented in this encounterProV[facility] Tap[facility] SystemInstructionsNot on filedocumented in this encounterProVeterans [facility] System InstructionsNot on filedocumented in this encounterUniversity [facility]als [facility] Summary Purpose Family History [...] oligohydramnios in prior , currently Procedures [facility] with or without consult Haseeb Nice MD [address], [address] [place] [address] [facility] Maternal Med [address] [place] [address] Referral ID Status Reason Start Date Expiration Date V isits Requested Visits Authorized [id number] Pending Review 10/17/2023 10/16/2024 1 1 Specialty Diagnoses / Procedures Referred By Bhupendra azar Referred To Contact Maternal and Medicine Diagnoses History of oligohydramnios in prior , currently 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 History of delivery, currently Procedures [facility] with or without consult Haseeb Nice MD [address], [address] [place] [address] [facility] Maternal Med [address] [place] [address] Referral ID Status Reason Start Date Expiration Date V isits Requested Visits Authorized [id number] Pending Review 10/22/2023 10/21/2024 1 1 Additional Source Comments INFORMATION SOURCE (unrecogn ized section and content) DATE CREATED AUTHOR 01/31/2023 [facility] DATE CREATED AUTHOR AUTHOR'S ORGANIZ ATION 10/20/2023 [facility] DATE CREATED AUTHOR AUTHOR'S ORGANIZ ATION 11/24/2023 [facility] DATE CREATED AUTHOR AUTHOR'S ORGANIZ ATION 05/26/2025 [facility] dical Specialists EPIC Reason for Visit (unrecogniz ed section and content) Reason Comments Routine Visit Reason Comments Hx Oligo Hx Multiple Miscarriages Hypothyroidism Reason Comments Amenorrhea Reason Comments Routine Visit Well Women Visit STI Screening Care Teams (unrecognized sec tion and content) Computing Consultant Relationship Specialty Start Date End Date Bria Bales, DO [address] [place] [address] PCP - [facility] 01/13/24 Computing Consultant Relationship Specialty Start Date End Date Bria Bales, DO [facility] [place] [address] PCP - [facility] 01/13/24 Computing Consultant Relationship Specialty Start Date End Date Bria Bales, DO [address] [place] [address] PCP [facility] 01/13/24 Computing Consultant Relationship Specialty Start Date End Date Bria Bales, DO [address] [place] [address] PCP [facility] 01/13/24 FOR RECORDS PERTAINING TO PATIENTS WHO ARE [...] BE BASED ON THE PRIMARY CLINICAL RECORDS. [facility]. provides no warranty or guarantee of the accuracy or completeness of information in this document.
[2025-06-09 11:06] LABS: Hematocrit 32.2 % (36.0-48.0); Hemoglobin 11.0 g/dL (12.0-16.0); Immature Granulocytes Abs Auto 0.02 10^3/uL (0.00-0.03); Immature Granulocytes Pct Auto 0.3 % (0.0-0.5); Lymphocytes Absolute Auto 1.3 10^3/uL (1.2-3.8); Mean Corpuscular HGB Conc 34.2 g/dL (29.9-35.2); Mean Corpuscular Hemoglobin 32.9 pg (26.7-34.0); Mean Corpuscular Volume 96.4 fL (81.0-99.0); Platelet Count 145 10^3/uL (150-450); Red Blood Count 3.34 10^6/uL (4.20-5.40); White Blood Count 8.0 10^3/uL (4.0-11.0)
[2025-06-09 11:15] LABS: Cannabinoid Screen Urine POSITIVE (NEGATIVE); Methamphetamines Screen Urine NEGATIVE (NEGATIVE); Tricyclic Antidepressant Urine NEGATIVE (NEGATIVE)
[2025-06-09 11:27] LABS: Thyroid Stimulating Hormone 2.408 uIU/mL (0.358-3.740)
[2025-06-10 06:09] LABS: Rubella Antibodies, IgG 1.77 index (Immune >0.99)
[2025-06-10 14:08] LABS: Rapid Plasma Reagin, Quant Non Reactive titer (NonRea<1:1)
[2025-06-15 18:08] LABS: Carboxy THC Conf, MS, UR 292 ng/mL (Cutoff=10)
== END 2025-06-09 10:38 | disposition home or self-care (01) ==
PROVIDERS: Visit Provider Obstetrics & Gynecology
DX: Z34.01 Encounter for supervision of normal first pregnancy, first trimester (principal); N92.6 Irregular menstruation, unspecified; E07.9 Disorder of thyroid, unspecified
CPT/HCPCS: 36415; 80307; 80349; 83036; 84443; 85025; 86592; 86762; 86803; 86850; 86900; 86901; 87086; 87340; 87389

== ENCOUNTER 2025-08-23 10:09 | Outpatient (OUT) | payer OTHER, SELFPAY ==
--- OUTSIDE RECORDS SUMMARY | 2017-10-09 06:55 | XMS_ITS | Continuity of Care Document ---
Author Organization [facility] Address [address] [place] [address] Phone Care Team Providers Care Institute Scientist Name Role Phone Jason Johnston MD Unavailable Unavailable Allergies, Adverse Reactions, Alerts Substance Reaction Status Criticality No Known allergies Medications Medication Instructions Dosage Effective Dates (start - stop) Status Comments Synthroid 25 mcg tablet take 1 tablet (25MCG) by oral route every day 25 MCG - Active Iron (ferrous sulfate) 325 mg (65 mg iron) tablet take 1 by Oral route every 12 hours 1 - Active Zofran 8 mg tablet take 1 tablet (8MG) by oral route 3 times every day - Active Procedures Procedure Date OFFICE/OUTPATIENT VISIT, EST OFFICE/OUTPATIENT VISIT, EST ROUTINE VENIPUNCTURE RISK ASSISSMENT CARE COORDINATION COUNSELING AND EDUCATION Varicella-Zoster Virus Antibody 014 RPR (Dx) W/TITER & FTA Drug Abuse Panel OBSTETRIC PANEL W/RFX T4,FREE Hemoglobinopathy Evaluation HEPATITIS C VIRUS AB CULTURE, URINE, ROUTINE TSH, Pregancy TSH, Pregancy OFFICE/OUTPATIENT VISIT, EST OFFICE/OUTPATIENT VISIT, EST URINE TEST REMOVE DRUG IMPLANT DEVICE OFFICE/OUTPATIENT VISIT, EST ODH SPECIMEN HANDLING (GC/CHLAMYDIA) Sep [facility] MEDICAID OFFICE/OUTPATIENT VISIT, EST OFFICE/OUTPATIENT VISIT, EST OFFICE/OUTPATIENT VISIT, EST Nexplanon 68mg Implant INSERT DRUG IMPLANT DEVICE [facility] MEDICAID Depo Provera 1 Ml URINE TEST Condoms OFFICE/OUTPATIENT VISIT, EST URINE TEST OFFICE/OUTPATIENT VISIT, EST ROUTINE VENIPUNCTURE HIV-1 OFFICE/OUTPATIENT VISIT, EST ODH ROCEPHIN 250 MG (PER DOSE) 11 OFFICE/OUTPATIENT VISIT, NEW ROUTINE VENIPUNCTURE ODH SPECIMEN HANDLING (GC/CHLAMYDIA) Jun URINE TEST HIV-1 OFFICE/OUTPATIENT VISIT, EST Medrxyprogester acetate inj OFFICE/OUTPATIENT VISIT, EST Medrxyprogester acetate inj OFFICE/OUTPATIENT VISIT, EST Medrxyprogester acetate inj [facility] MEDICAID URINE TEST SPECIMEN HANDLING Condoms Medroxyprogesterone Acetate 104 mg injec tion OFFICE/OUTPATIENT VISIT, EST Medroxyprogesterone Acetate 104 mg injec tion OFFICE/OUTPATIENT VISIT, EST URINE TEST Medrxyprogester acetate inj [facility] MEDICAID Condoms Medrxyprogester acetate inj URINALYSIS, NONAUTO W/SCOPE URINE TEST SPECIMEN HANDLING Advance Directives Directive Yes / No Effective Date File Name No Information Encounters Encounter Description Practice Location Reason(s) For Visit Diagnoses Date Provider Providers Copied on Encounter [facility], [address] [place], [place], [id number], [place] tel:[phone] [facility] No Information 7 Preston Gomez. [address] [place] [address], [place], [address], [place]. tel:[phone] [facility], [address] [place] [address], [place], [address], [place] tel:[phone] [facility] Consult with Dr. Jiménez (chief complaint) No Information 4 [facility] Jaz. [address] [place] [address], [place], [id number], [place]. tel:[phone] [facility], [address], [place], [address], [place] tel:[phone] [facility] lab result (chief complaint) No Information 4 [facility] Jaz. [address] [place] [address], [place], [id number], [place]. tel:[phone] OFFICE/OUTPAT IENT VISIT, [facility], [address], [place], [address], [place] tel:[phone] [facility] Interview (chief complaint) No Information 4 [facility] Jaz. [address] [place] [address], [place], [address], [place]. tel:[phone] OFFICE/OUTPAT IENT VISIT, [facility], [address], [place], [address], [place] tel:[phone] [facility] Test (chief complaint) Supervision of other normal 4 [facility] Jaz. [address], [place], [address], [place]. tel:[phone] [facility], [address], [place], [address], [place] tel:[phone] [facility] Nexplanon removal (chief complaint) Headache 4 Viscodilia Brumfield. [address] [place] [address], [place], [address], [place]. tel:[phone] OFFICE/OUTPAT IENT VISIT, [facility], [address], [place], [address], [place] tel:[phone] [facility] annual visit (chief complaint) Gynecological Examination 3 Jessy Brumfield. [address], [place], [address], [place]. tel:[phone] OFFICE/OUTPAT IENT VISIT, [facility], [address], [place], [address], [place] tel:[phone] [facility] Nexplanon 4 wk check (chief complaint) Surveillance of implantable subdermal contraceptive 3 Crispin Peralta. [address] [place] [address], [place], [address], [place]. tel:[phone] OFFICE/OUTPAT IENT VISIT, [facility], [address] [place] [address], [place], [address], [place] tel:[phone] [facility] Nexplanon (chief complaint) Surveillance of implantable subdermal contraceptive 3 Crispin Peralta. [address] [place] [address], [place], [address], [place]. tel:[phone] [facility], [address], [place], [address], [place] tel:[phone] [facility] No Information 3 Lamp Kathryn. [address] [place] [address], [place], [address], [place]. tel:[phone] OFFICE/OUTPAT IENT VISIT, [facility], [address] [place] [address], [place], [address], [place] tel:[phone] [facility] No Information Dec-0 2 Visci DO Hussein. [address] [place] [address], [place], [address], [place]. tel:[phone] OFFICE/OUTPAT IENT VISIT, [facility], [address], [place], [address], [place] tel:[phone] [facility] Neck Mass (chief complaint) No Information 1 Gisela Garcia. [address] [place] [address], [place], [address], [place]. tel:[phone] OFFICE/OUTPAT IENT VISIT, [facility], [address], [place], [address], [place] tel:[phone] [facility] Gonococcal infection (acute) of lower genitourinary tract Sep-2 1 Visci DO Hussein. [address], [place], [address], [place]. tel:[phone] [facility], [address], [place], [address], [place] tel:[phone] [facility] Gonococcal infection (acute) of lower genitourinary tract Jun- 1 Gisela Garcia. [address] [place] [address], [place], [address], [place]. tel:[phone] OFFICE/OUTPAT IENT VISIT, [facility], [address], [place], [address], [place] tel:[phone] [facility] STI female (chief complaint) Screening examination for venereal disease Sep- 1 Gisela Garcia. [address] [place] [address], [place], [address], [place]. tel:[phone] OFFICE/OUTPAT IENT VISIT, [facility], [address] [place] [address], [place], [address], [place] tel:[phone] [facility] No Information Dec-0 1 Crispin Peralta. [address] [place] [address], [place], [address], [place]. tel:[phone] OFFICE/OUTPAT IENT VISIT, [facility], [address] [place], [place], [address], [place] tel:[phone] [facility] No Information 0 9-201 0 Carlos Leal. [address] [place] [address], [place], [address]. tel:[phone] OFFICE/OUTPAT IENT VISIT, [facility], [address] [facility] [place], [place], [address], [place] tel:[phone] [facility] No Information 6-201 0 Lamp Kathryn. [address] [place] [address], [place], [address], [place]. tel:[phone] [facility], [address], [place], [address], [place] tel:[phone] [facility] No Information 8-201 0 Orville STORE DELI MANAGER Yamilka. [address] [place] [address], [place], [address]. tel:[phone] OFFICE/OUTPAT IENT VISIT, [facility], [address] [place] [address], [place], [address], [place] tel:[phone] [facility] No Information 2 5-201 0 Visci DO Hussein. [address] [place] [address], [place], [address], [place]. tel:[phone] OFFICE/OUTPAT IENT VISIT, [facility], [address] [place] [address], [place], [address], [place] tel:[phone] [facility] No Information 9-200 9 Mawhrocio STORE DELI MANAGER Yamilka. [address] [place] [address], [place], [address]. tel:[phone] [facility], [address] [place] [address], [place], [address], [place] tel:[phone] [facility] No Information 9 No Information Family History Family Member Type Diagnosis Age At Onset Mother Problem (finding) Alive and well Brother Problem (finding) Cerebral palsy Brother Problem (finding) Alive and well Father Problem (finding) stroke Brother Problem (finding) Alive and well Brother Problem (finding) Alive and well Father Problem (finding) Alive and well Payers Payer name Insurance type Covered libertarian ID Authoriza tion(s) No Information Social History Type Description Quantity Date Captured Comments Sex Female Smoking Status No Information Sexual Orientation Straight or heterosexual Chief Complaint And Reason For Visit No Information Reason For Referral Reason For Referral No Information Plan Of Treatment Date Type Action Status Goal Tobacco cessation counseling completed Goal Tobacco cessation counseling completed History Of Present Illness Encounter Date Complaint History Of Prese nt Illness No Information Functional Status Date Functional Assessmen t No Information Instructions Date Instruction Additional Infor mation No treatment indicat ed today. Call for test results. Related to Screening examination for venereal disease Avoid sexual activit y while you await your test results. Related to Screening examination for venereal disease Assessments Type Assessment Date No Information Patient Care Teams Name Effective Dates (start - stop) Status Members No Information
--- OUTSIDE RECORDS SUMMARY | 2025-08-09 08:50 | XMS_ITS | Encounter Summary ---
Author Organization [facility] Address [address] [place] [address] Care Team Providers Care Meter Repairer Helper Name Role Phone Marco Bales DO Unavailable Reason for Visit * ReasonCommentsRoutine Visit Encounter Details DateTypeDepartmentCare Team (Latest Contact Info)Kzhamchkswu65/27/2025 9:50 AM EDTRoutine [facility] [address] [place] [address] Rosana Marcano PA [address] [facility] [address] [place], [facility]11 size inconsistent with dates ([facility]) (Primary Dx); Third trimester ([facility]); 29 weeks gestation of ([facility]); History of miscarriage; History of oligohydramnios; Thyroid disease; Acquired autoimmune hypothyroidism Social History Tobacco UseTypesPacks/DayYears UsedDateSmoking Tobacco: Never Assessed Estimated Date of AarqfuysBcvefkvqLrj61/10/2026ased on UltrasoundSex and Gender InformationValueDate RecordedSex Assigned at HuxqpAqipux17/25/2023 4:28 PM EDT Legal GwzCrggio04/15/2023 6:42 PM EDTGender AdbdrdfqKsaxsa92/25/2023 4:28 PM EDT Sexual YaiiatbafkbWvsllpks67/25/2023 4:28 PM EDTdocumented as of this encounter Last Filed Vital Signs Vital SignReadingTime TakenCommentsBlood Dgkvluyf804/5208/09/2025 10:14 AM EDT Pulse--Temperature--Respiratory Rate--Oxygen Saturation--Inhaled Oxygen Concentration--Jpoqed96.3 kg (159 lb 8 oz)08/09/2025 10:14 AM EDTHeight--Body Mass Index25.7406 11:40 AM EDTdocumented in this encounter Progress Notes * ABIGAIL Chinchilla - 08/09/2025 9:50 AM EDT Reason for Appointment: Patient ID: Екатерина Sutherland is a 30 y.o. female who presents for Routine Visit Patient presents today for Return OB appointment. MEDICATIONS Current Outpatient Medications Medication Instructions citalopram (CELEXA) 20 mg, Oral, Daily levothyroxine (SYNTHROID, LEVOXYL) 100 mcg, Oral, Daily Vit-Fe Fumarate-FA (M- Plus) 27-1 MG tablet [...] Constitutional: Appearance: Normal appearance. She is well-developed. Cardiovascular: Rate and Rhythm: Normal rate and [...] nursing note reviewed. Exam conducted with a coordinate measuring machine operator present. Vitals: Estimated body mass index is 25.74 kg/m?? as calculated from the following: Height as of 04/02/24: 5' 6 . Weight as of this encounter: 159 lb 8 oz. BP: 110/52 No LMP recorded. Patient is . Assessment/Plan ICD-10-CM 1. Third trimester ([facility]) Z34.93 2. 29 weeks gestation of ([facility]) Z3A.29 CBC and differential Hemoglobin A1c POCT urinalysis dipstick manually resulted Return OB: Patient presents today for a routine obstetrics appointment. Patient is currently 29w2d . Patient states she is doing well but has complaints of being tired due to current . Patient has verbalizes frequent movement. labor precautions was discussed/given and patient was instructed to perform kick counts three times a day. Orders Placed This Encounter Procedures CBC and differential Hemoglobin A1c POCT urinalysis dipstick manually resulted Follow Up: Patient is to return to office in 2 week for routine OB appointment. Documented by Penny Solorio NP on behalf of: ABIGAIL Chinchilla documented in this encounter Plan of Treatment DateTypeDepartmentCare Team (Latest Contact Info)Ylxckxfdkbi13/10/2025 10:30 AM ESTAncillary Procedure [facility] [address] [place] [id number] 08/23/2025 11:00 AM ESTRoutine [facility] [address] [phone] Marco Bales DO [address] [facility] [place] [address] NameTypePriorityAssociated DiagnosesOrder ScheduleCBC and differentialLabRoutine 29 weeks gestation of ([facility]) Ordered: 08/09/2025Hemoglobin X2qYunMzcaafb 29 weeks gestation of ([facility]) Ordered: 08/09/2025US OB follow up transabdominal approachImagingRoutine History of miscarriage History of oligohydramnios Thyroid disease Expected: 08/09/2025, Expires: 12/10/2025documented as of this encounter Goals GoalPatient Goal TypeAssociated ProblemsRecent ProgressPatient-Stated?Author Reminders Care PlanOB RemindersNoOpen Scheduling, Backgrounddocumented as of this encounter Procedures Procedure NamePriorityDate/TimeAssociated DiagnosisCommentsPOCT URINALYSIS ZZNRIETHVoznszd52/27/2025 10:19 AM EDT 29 weeks gestation of ([facility]) documented in this encounter Results * POCT urinalysis dipstick manually resulted (08/09/2025 10:19 AM EDT)Component ValueRef RangeTest MethodAnalysis TimePerformed AtPathologist SignatureColor, UAYellowClarity, UAClearGlucose, UANegativeNegative - 2000(110) ++++ mg/dL Bilirubin, UANegativeNegative - 4(70) +++ mg/dLKetones, UANegativeNegative - 160(16) ++++ mg/dLSpec Grav, UA0.0101 - 1.03Blood, UANegativeNegative - 50 Felice/mcLpH, UA7.05 - 9Protein, UANegativeNegative - 2000(20) ++++ mg/dL Urobilinogen, UA0.20.2 - 12 mg/dLLeukocytes, UANegativeNegative - 500+++ Regina/mcLNitrite, UANegativeNegative - PositiveSpecimen (Source)Anatomical Location / LateralityCollection Method / VolumeCollection TimeReceived Time Urine08/09/2025 10:19 AM EDT Narrative Authorizing ProviderResult TypeResult StatusWorcester County HospitalOINT OF CARE TEST ENTER/EDIT ORDERABLESFinal Result documented in this encounter Visit Diagnoses Diagnosis size inconsistent with dates ([facility])- Primary Third trimester ([facility]) state, incidental 29 weeks gestation of ([facility]) History of miscarriage Personal history of other genital system and obstetric disorders History of oligohydramnios Thyroid disease Unspecified disorder of thyroid Acquired autoimmune hypothyroidism Other specified acquired hypothyroidism documented in this encounter Additional Health Concerns Active ProblemsNoted DateDiagnosed DateOB Cyyucvupv78/28/2023 documented as of this encounter Care Teams Team MemberRelationshipSpecialtyStart DateEnd Date Marco Bales DO [address] [place] [address] [place] [address] [facility]/13/24documented as of this encounter
--- OUTSIDE RECORDS SUMMARY | 2025-08-23 10:12 | XMS_ITS | Encounter Summary ---
Author Organization [facility] Address [address] [place] [address] Care Team Providers Care Core Java Software Engineer Name Role Phone Bria Bales DO Unavailable Encounter Details DateTypeDepartmentCare Team (Latest Contact Info)Wjmdwqdksdi53/09/2024linisync Result Encounter [facility] External Department Unsolicited Bria Bales DO [address] [place] [place], [facility]11 Social History Tobacco UseTypesPacks/DayYears UsedDateSmoking Tobacco: Never Assessed CommentsYesSex and Gender InformationValueDate RecordedSex Assigned at Jtsamt2108/07/2023 4:28 PM EDTLegal XntOpfuzq67/15/2023 6:42 PM EDTGender Identity Nagjwp2508/07/2023 4:28 PM EDTSexual MuutictxeguMomlazbw76/25/2023 4:28 PM EDT documented as of this encounter Plan of Treatment DateTypeDepartmentCare Team (Latest Contact Info)Xfiigflrljc93/10/2025 10:30 AM ESTAncillary Procedure [facility] [address] [place] [address] 08/23/2025 11:00 AM ESTRoutine [facility] [address] [place] [address] Bria Bales DO [address] [place] [address] documented as of this encounter Goals GoalPatient Goal TypeAssociated ProblemsRecent ProgressPatient-Stated?Author Reminders Care PlanOB RemindersNoOpen Scheduling, Backgrounddocumented as of this encounter Procedures Procedure NamePriorityDate/TimeAssociated DiagnosisCommentsUS OB BPP W NON-PLDPCY4901/21/2024 7:13 AM EDT documented in this encounter Results * US OB BPP W NON-STRESS (01/21/2024 7:13 AM EDT)Anatomical Region LateralityModalityOtherSpecimen (Source)Anatomical Location / Laterality Collection Method / VolumeCollection TimeReceived Time01/21/2024 7:13 AM EDT Narrative 01/21/2024 7:16 AM EDT [facility] ?[address] ? [place] [address] ? Ultrasound Report ? Signed ? Patient: ЕКАТЕРИНА SWEENEY ?MR#: [id number] ?? : 1995 ?Acct:[id number] ?? Age/Sex: 28 / F ?ADM Date: 01/20/24 ?? Loc: US ? Attending Dr: Bria Bales D.O. ? Ordering Physician: Bria Bales D.O. ?? Date of Service: 01/20/24 ?? Procedure(s): US OB BPP w non-stress ?? Accession Number(s): [id number] ? cc: Bria Bales D.O.; Physician,Non-Staff M.D. ? [facility] ? [address] ? [place] [address] ? Patient Name: ?? ЕКАТЕРИНА SWEENEY ? MRN: [facility]:[id number] ? date: 1995 ?Sex: F ?? Assigned Patient Location: [facility]BC ?? Current Patient Location: ? Accession/Order Number: [id number] ?? Exam Date: 01/20/2024 ??19:12 ?Report Date: 01/21/2024 ??07:13 ? At the request of: ?? BRIA ??NII ? Procedure: ??US OB BPP w non-stress ? EXAMINATION: US OB BPP w non-stress ? HISTORY: HISTORY OF MISCARRIAGE Z87.59 ? COMPARISON: 01/13/2024 ? TECHNIQUE: Ultrasound biophysical profile was performed in the radiology ?? department. ? FINDINGS: ?? BREATHING MOVEMENTS: 2.0 ?? GROSS BODY MOVEMENTS: 2.0 ?? TONE: 2.0 ?? QUALITATIVE AMNIOTIC FLUID VOLUME: 2.0 ? PRESENTATION: CEPHALIC ?? HEART RATE: 136.4 bpm H.B./min ?? AMNIOTIC FLUID VOLUME: 19.5 cm cm ?? GESTATIONAL AGE: 34 weeks 0 days ? CONCLUSION: ? Total biophysical profile score: 8.0 ? Electronically authenticated by: ALFA ??ILEANA ?? Date: 01/21/2024 ??07:13 ? Dictated By: ?Alfa Tejeda M.D. ? Signed By: ?01/21/24 0716 ? DD/ 0713 ? TD/TT: ? Manager Foreign: Procedure Note Radiology, Radiologist, MD - 01/21/2024 [place] [address] Ultrasound Report Signed Patient: ЕКАТЕРИНА SWEENEY RMR#: [id number] : 1995Acct:[id number] Age/Sex: 28 / FADM Date: 01/20/24 Loc: US Attending Dr: Bria Bales D.O. Ordering Physician: Bria Bales D.O. Date of Service: 01/20/24 Procedure(s): US OB BPP w non-stress Accession Number(s): [id number] cc: Bria Bales D.O.; Physician,Non-Staff M.DTammie The [place] [id number] Patient Name: ЕКАТЕРИНА SWEENEY MRN: [facility]:[id number] date: 1995 Sex: F Assigned Patient Location: [facility] Current Patient Location: Accession/Order Number: [id number] Exam Date: 01/20/2024 19:12 Report Date: 01/21/2024 [...] Tejeda M.D. Signed By:01/21/24715 DD/ 2 TD/TT: Manager Foreign: Authorizing ProviderResult TypeResult StatusCorey Nii DOCLINISYNC IMAGINGFinal Result documented in this encounter Visit Diagnoses Not on filedocumented in this encounter Additional Health Concerns Active ProblemsNoted DateDiagnosed DateOB Prezkcywv58/28/2023 documented as of this encounter Care Teams Team MemberRelationshipSpecialtyStart DateEnd Date Bria Bales DO [address] [place], [place] [address] [address] PCP - [facility]01/13/24documented as of this encounter
--- OUTSIDE RECORDS SUMMARY | 2025-08-23 10:12 | XMS_ITS | Encounter Summary ---
Author Organization [facility] Address [address] [place] [address] Care Team Providers Care Stock Checker Name Role Phone Bria Bales DO Unavailable Encounter Details DateTypeDepartmentCare Team (Latest Contact Info)Rkimtbalybb54/15/2024linisync Result Encounter [facility] External Department Unsolicited Bria Bales DO [address] [place] [address] [place], [facility]11 Social History Tobacco UseTypesPacks/DayYears UsedDateSmoking Tobacco: Never Assessed CommentsYesSex and Gender InformationValueDate RecordedSex Assigned at Wsusnx3708/07/2023 4:28 PM EDTLegal GmgNaxutc82/15/2023 6:42 PM EDTGender Identity Bcweqg5508/07/2023 4:28 PM EDTSexual SibxjuvsuhqZtfjbxit88/25/2023 4:28 PM EDT documented as of this encounter Plan of Treatment DateTypeDepartmentCare Team (Latest Contact Info)Vvnmkwnnzxm39/10/2025 10:30 AM ESTAncillary Procedure [facility] [address] [place] [address] 08/23/2025 11:00 AM ESTRoutine [facility] [address] [place] [address] Bria Bales DO [address] [place] [address] documented as of this encounter Goals GoalPatient Goal TypeAssociated ProblemsRecent ProgressPatient-Stated?Author Reminders Care PlanOB RemindersNoOpen Scheduling, Backgrounddocumented as of this encounter Procedures Procedure NamePriorityDate/TimeAssociated DiagnosisCommentsUS OB BPP W NON-HDEONC8701/27/2024 3:19 PM EDT documented in this encounter Results * US OB BPP W NON-STRESS (01/27/2024 3:19 PM EDT)Anatomical Region LateralityModalityOtherSpecimen (Source)Anatomical Location / Laterality Collection Method / VolumeCollection TimeReceived Time01/27/2024 3:19 PM EDT Narrative 01/27/2024 3:21 PM EDT [facility] ?[address] ? [place] [address] ? Ultrasound Report ? Signed ? Patient: ЕКАТЕРИНА SWEENEY ?MR#: [id number] ?? : 1995 ?Acct:[id number] ?? Age/Sex: 28 / F ?ADM Date: 01/27/24 ?? Loc: US ? Attending Dr: Bria Bales D.O. ? Ordering Physician: Bria Bales D.O. ?? Date of Service: 01/27/24 ?? Procedure(s): US OB BPP w non-stress ?? Accession Number(s): [id number] ? cc: Bria Bales D.O.; Physician,Non-Staff M.D. ? [facility] ? [address] ? [place] [address] ? Patient Name: ?? ЕКАТЕРИНА SWEENEY ? MRN: [facility]:[id number] ? date: 1995 ?Sex: F ?? Assigned Patient Location: US ?? Current Patient Location: US ?? Accession/Order Number: [id number] ?? Exam Date: 01/27/2024 ??14:45 ?Report Date: 01/27/2024 ??15:19 ? At the request of: ?? BRIA ??NII ? Procedure: ??US OB BPP w non-stress ? EXAMINATION: US OB BPP w non-stress ? HISTORY: history ofoligohydramnios ? COMPARISON: No relevant comparison available. ? TECHNIQUE: Ultrasound biophysical profile was performed in the radiology ?? department. non-reactive stress testing was performed by nursing staff ?? in ?? the birthing center. ? FINDINGS: ?? BREATHING MOVEMENTS: 2.0 ?? GROSS BODY MOVEMENTS: 2.0 ?? TONE: 2.0 ?? QUALITATIVE AMNIOTIC FLUID VOLUME: 2.0 ? PRESENTATION: CEPHALIC ?? HEART RATE: 138.5 bpm H.B./min ?? AMNIOTIC FLUID VOLUME: 22.9 cm cm ?? GESTATIONAL AGE: 35 weeks 0 days ? CONCLUSION: ? Total biophysical profile score: 8.0 ? Electronically authenticated by: ALFA ??ILEANA ?? Date: 01/27/2024 ??15:19 ? Dictated By: ?Alfa Tejeda M.D. ? Signed By: ?01/27/24 1521 ? DD/ 1519 ? TD/TT: ? Business Law Instructor: Procedure Note Radiology, Radiologist, - 01/27/2024 [place] [address] Ultrasound Report Signed Patient: ЕКАТЕРИНА SWEENEY RMR#: [id number] : 1995Acct:[id number] Age/Sex: 28 / FADM Date: 01/27/24 Loc: US Attending Dr: Bria Bales D.O. Ordering Physician: Bria Bales D.O. Date of Service: 01/27/24 Procedure(s): US OB BPP w non-stress Accession Number(s): [id number] cc: Bria Bales D.O.; Physician,Non-Staff M.DTammie The [place] [id number] Patient Name: ЕКАТЕРИНА SWEENEY MRN: [facility]:[id number] date: 1995 Sex: F Assigned Patient Location: US Current Patient Location: US Accession/Order Number: [id number] Exam Date: 01/27/2024 14:45 Report Date: 01/27/2024 15:19 At the request of: BRIA BALES Procedure: US OB BPP w non-stress EXAMINATION: US OB BPP w non-stress HISTORY: history ofoligohydramnios COMPARISON: No relevant comparison available. TECHNIQUE: Ultrasound biophysical profile was performed in the radiology department. non-reactive stress testing was performed by nursingstaff in the birthing center. FINDINGS: BREATHING MOVEMENTS: 2.0 GROSS BODY MOVEMENTS: 2.0 TONE: 2.0 QUALITATIVE AMNIOTIC FLUID VOLUME: 2.0 PRESENTATION: CEPHALIC HEART RATE: 138.5 bpm H.B./min AMNIOTIC FLUID VOLUME: 22.9 cm cm GESTATIONAL AGE: 35 weeks 0 days CONCLUSION: Total biophysical profile score: 8.0 Electronically authenticated by: ALFA TEJEDA Date: 01/27/2024 15:19 Dictated By: Alfa Tejeda M.D. Signed By:01/27/24 1521 DD/ 1519 TD/TT: Business Law Instructor: Authorizing ProviderResult TypeResult StatusCorey Nii DOCLINISYNC IMAGINGFinal Result documented in this encounter Visit Diagnoses Not on filedocumented in this encounter Additional Health Concerns Active ProblemsNoted DateDiagnosed DateOB Wbskmkpkj18/28/2023 documented as of this encounter Care Teams Team MemberRelationshipSpecialtyStart DateEnd Date Bria Bales DO [address] [place], [place] [address] [address] PCP - [facility]01/13/24documented as of this encounter
--- OUTSIDE RECORDS SUMMARY | 2025-08-23 10:13 | XMS_ITS | Encounter Summary ---
Author Organization [facility] Address [address] [place] [address] Care Team Providers Care Spray I Painter Name Role Phone Bria Bales DO Unavailable Encounter Details DateTypeDepartmentCare Team (Latest Contact Info)Yrelutnugap42/26/2024linisync Result Encounter [facility] External Department Unsolicited Bria Bales DO [address] [place] [address] [place], [facility]11 Social History Tobacco UseTypesPacks/DayYears UsedDateSmoking Tobacco: Never Assessed CommentsYesSex and Gender InformationValueDate RecordedSex Assigned at Ttltax0208/07/2023 4:28 PM EDTLegal EkiWamluw78/15/2023 6:42 PM EDTGender Identity Fbolqo8508/07/2023 4:28 PM EDTSexual DimlwavadowHrtctekp72/25/2023 4:28 PM EDT documented as of this encounter Plan of Treatment DateTypeDepartmentCare Team (Latest Contact Info)Wblacdjwaxo39/10/2025 10:30 AM ESTAncillary Procedure [facility] [address] [place] [address] 08/23/2025 11:00 AM ESTRoutine [facility] [address] [place] [address] Bria Bales DO [address] [place] [address] documented as of this encounter Goals GoalPatient Goal TypeAssociated ProblemsRecent ProgressPatient-Stated?Author Reminders Care PlanOB RemindersNoOpen Scheduling, Backgrounddocumented as of this encounter Procedures Procedure NamePriorityDate/TimeAssociated DiagnosisCommentsUS OB GROWTH 12/09/2023 3:20 PM EST documented in this encounter Results * US OB GROWTH (12/09/2023 3:20 PM EST)Anatomical RegionLateralityModalityOther Specimen (Source)Anatomical Location / LateralityCollection Method / Volume Collection TimeReceived Time12/09/2023 3:20 PM EST Narrative 12/09/2023 3:22 PM EST [facility] ?[address] ? [place] [address] ? Ultrasound Report ? Signed ? Patient: ЕКАТЕРИНА SWEENEY ?MR#: [id number] ?? : 1995 ?Acct:[id number] ?? Age/Sex: 28 / F ?ADM Date: 12/09/23 ?? Loc: FBC ??250-1 ? Attending Dr: Bria Bales D.O. ? Ordering Physician: Bria Bales D.O. ?? Date of Service: 12/09/23 ?? Procedure(s): US OB growth ?? Accession Number(s): [id number] ? cc: Bria Bales D.O.; Physician,Non-Staff M.D. ? [facility] ? [address] [place] [address] ? [place] [address] ? Patient Name: ?? ЕКАТЕРИНА SWEENEY ? MRN: [facility]:[id number] ? date: 1995 ?Sex: F ?? Assigned Patient Location: FBC ?? Current Patient Location: FBC ?? Accession/Order Number: [id number] ?? Exam Date: 12/09/2023 ??14:32 ?Report Date: 12/09/2023 ??15:20 ? At the request of: ?? BRIA ??NII ? Procedure: ??US OB growth ? EXAMINATION: US OB growth ? HISTORY: Z86.59 HISTORY OF MISCARRIAGE ? COMPARISON: No relevant comparison available. ? FINDINGS: ? Heart Rate: 145.9 bpm ?? Amniotic Fluid Volume: 20.8 cm ?? Number: 1.0 ?? Position: Breech presentation, longitudinal lie ?? Maximum Vertical Pocket: ?? 7.5 cm cm ?? 3.7 cm cm ?? 3.7 cm cm ?? 5.8 cm cm ? BIOMETRY: ?? BPD: 6.9 cm cm; 27 weeks 5 days; 28% ?? HC: 26.7 cmcm; 29 weeks 1 days, 54% ?? AC: 23.7 cm cm; 28 weeks 0 days, 42% ?? FL: 5.2 cm cm; 27 weeks 4 days; 23.1 % % ?? EFW: 1149.7 grams, 2 lbs. 9 oz., 35% ?? FL/AC: 21.8 ?? FL/BPD: 74.9 ?? HC/AC: 1.1 ? GESTATIONAL AGE: ?? Age by EDC: 28 weeks 0 days ?? GOOD by EDC: 03/02/2024 ?? Age by US: 28 weeks 1 day ?? GOOD by US: 03/01/2024 ? US/US OB growth ?? IMPRESSION: ? Normal interval growth ? Electronically authenticated by: ALFA ??ILEANA ?? Date: 12/09/2023 ??15:20 ? Dictated By: ?Alfa Tejeda M.D. ? Signed By: ?02/26/24 1522 ? DD/ 1520 ? TD/TT: ? Seaman: Procedure Note Radiology, Radiologist, MD - 12/09/2023 [place] [address] Ultrasound Report Signed Patient: ЕКАТЕРИНА SWEENEY RMR#: [id number] : 1995Acct:[id number] Age/Sex: 28 / FADM Date: 12/09/23 Loc: [facility] 250-[address]: Bria Bales D.O. Ordering Physician: Bria Bales D.O. Date of Service: 12/09/23 Procedure(s): [facility] [place] Accession Number(s): [id number] cc: Bria Bales D.O.; Physician,Non-Staff MRom The [address] [address] Patient Name: ЕКАТЕРИНА SWEENEY MRN: [facility]:[id number] date: 1995 Sex: F Assigned Patient Location: [facility] Current Patient Location: [facility] Accession/Order Number: [id number] Exam Date: 12/09/2023 14:32 Report Date: 12/09/2023 [...] M.D. Signed By:12/09/23 1522 DD/ 1520 TD/TT: Seaman: Authorizing ProviderResult TypeResult StatusCorey Nii DOCLINISYNC IMAGINGFinal Result documented in this encounter Visit Diagnoses Not on filedocumented in this encounter Additional Health Concerns Active ProblemsNoted DateDiagnosed DateOB Yoxovmoiw79/28/2023 documented as of this encounter Care Teams Team MemberRelationshipSpecialtyStart DateEnd Date Bria Bales DO [address] [place] [address] [place] [address] PCP - [facility]01/13/24documented as of this encounter
--- OUTSIDE RECORDS SUMMARY | 2025-08-23 10:13 | XMS_ITS | Encounter Summary ---
Author Organization [facility] Address [address] [place] [address] Care Team Providers Care Promotions Representative Name Role Phone Bria Bales DO Unavailable Encounter Details DateTypeDepartmentCare Team (Latest Contact Info)Fabqtfspryv24/29/2024linisync Result Encounter [facility] External Department Unsolicited Bria Bales DO [address] [place], [facility] Social History Tobacco UseTypesPacks/DayYears UsedDateSmoking Tobacco: Never Assessed CommentsYesSex and Gender InformationValueDate RecordedSex Assigned at Agizfp0408/07/2023 4:28 PM EDTLegal UauVxquya02/15/2023 6:42 PM EDTGender Identity Xkcwpv5308/07/2023 4:28 PM EDTSexual EywuunmohlsLqqxpmdq40/25/2023 4:28 PM EDT documented as of this encounter Plan of Treatment DateTypeDepartmentCare Team (Latest Contact Info)Mphjnsaddcy52/10/2025 10:30 AM ESTAncillary Procedure [facility] [address] [place] [address] 08/23/2025 11:00 AM ESTRoutine [facility] [address] [place] [address] Bria Bales DO [address] [place] [address] documented as of this encounter Goals GoalPatient Goal TypeAssociated ProblemsRecent ProgressPatient-Stated?Author Reminders Care PlanOB RemindersNoOpen Scheduling, Backgrounddocumented as of this encounter Procedures Procedure NamePriorityDate/TimeAssociated DiagnosisCommentsUS OB BPP W NON-JBRWYF6602/10/2024 2:55 PM EDT documented in this encounter Results * US OB BPP W NON-STRESS (02/10/2024 2:55 PM EDT)Anatomical Region LateralityModalityOtherSpecimen (Source)Anatomical Location / Laterality Collection Method / VolumeCollection TimeReceived Time02/10/2024 2:55 PM EDT Narrative 02/10/2024 2:57 PM EDT [facility] ?[address] ? [place] [address] ? Ultrasound Report ? Signed ? Patient: ЕКАТЕРИНА SWEENEY ?MR#: [id number] ?? : 1995 ?Acct:[id number] ?? Age/Sex: 28 / F ?ADM Date: 02/10/24 ?? Loc: US ? Attending Dr: Bria Bales D.O. ? Ordering Physician: Bria Bales D.O. ?? Date of Service: 02/10/24 ?? Procedure(s): US OB BPP w non-stress ?? Accession Number(s): [id number] ? cc: Bria Bales D.O.; Physician,Non-Staff M.D. ? [facility] ? [address] ? [place] [address] ? Patient Name: ?? ЕКАТЕРИНА SWEENEY ? MRN: [facility]:[id number] ? date: 1995 ?Sex: F ?? Assigned Patient Location: US ?? Current Patient Location: US ?? Accession/Order Number: [id number] ?? Exam Date: 02/10/2024 ??13:59 ?Report Date: 02/10/2024 ??14:55 ? At the request of: ?? BRIA ??NII ? Procedure: ??US OB BPP w non-stress ? EXAMINATION: US OB BPP w non-stress ? HISTORY: HISTORY OF MISCARRIAGE Z87.59, HISTORY OF OLIGOHYDRAMNIOS ? COMPARISON: Ultrasound OB biophysical 02/03/2024 ? TECHNIQUE: Ultrasound biophysical profile was performed in the radiology ?? department. ? BREATHING MOVEMENTS: 2 ?? GROSS BODY MOVEMENTS: 2 ?? TONE: 2 ?? QUALITATIVE AMNIOTIC FLUID VOLUME: 2 ? PRESENTATION: CEPHALIC ?? HEART RATE: 145.2 bpm bpm. ?? AMNIOTIC FLUID VOLUME: 19.6 cm ?? GESTATIONAL AGE: 37 weeks 0 days ? CONCLUSION: ? Total biophysical profile score 8. ? Electronically authenticated by: EFREN ??MISHA ?? Date: 02/10/2024 ??14:55 ? Dictated By: ?Efren Ventura M.D. ? Signed By: ?02/10/241456 ? DD/ 1455 ? TD/TT: ? Doffer: Procedure Note Radiology, Radiologist, - 02/10/2024 [place] [address] Ultrasound Report Signed Patient: ЕКАТЕРИНА SWEENEY RMR#: [id number] : 1995Acct:[id number] Age/Sex: 28 / FADM Date: 02/10/24 Loc: US Attending Dr: Bria Bales D.O. Ordering Physician: Bria Bales D.O. Date of Service: 02/10/24 Procedure(s): US OB BPP w non-stress Accession Number(s): [id number] cc: Bria Bales D.O.; Physician,Non-Staff M.DTammie The [place] [id number] Patient Name: ЕКАТЕРИНА SWEENEY MRN: [id number] date: 1995 Sex: F Assigned Patient Location: US Current Patient Location: US Accession/Order Number: [id number] Exam Date: 02/10/2024 13:59 Report Date: 02/10/2024 [...] M.D. Signed By:02/10/24 1457 DD/ 1455 TD/TT: Doffer: Authorizing ProviderResult TypeResult StatusCorey Nii DOCLINISYNC IMAGINGFinal Result documented in this encounter Visit Diagnoses Not on filedocumented in this encounter Additional Health Concerns Active ProblemsNoted DateDiagnosed DateOB Jbrqcidac34/28/2023 documented as of this encounter Care Teams Team MemberRelationshipSpecialtyStart DateEnd Date Bria Bales DO [facility] [place] [address] PCP - [facility]01/13/24documented as of this encounter
--- OUTSIDE RECORDS SUMMARY | 2025-08-23 10:13 | XMS_ITS | Encounter Summary ---
Author Organization [facility] Address [address] [place] [address] Care Team Providers Care Cardiology Clinical Consultant Name Role Phone Bria Bales DO Unavailable Encounter Details DateTypeDepartmentCare Team (Latest Contact Info)Httkuxrcbpg88/26/2024linisync Result Encounter [facility]S External Department Unsolicited Bria Bales DO [address] [place] [address] [place], [facility] Social History Tobacco UseTypesPacks/DayYears UsedDateSmoking Tobacco: Never Assessed CommentsYesSex and Gender InformationValueDate RecordedSex Assigned at Msxfzk9008/07/2023 4:28 PM EDTLegal MveGbihki48/15/2023 6:42 PM EDTGender Identity Lwbyqp4808/07/2023 4:28 PM EDTSexual PydvltgnwbsWnxxgnuh21/25/2023 4:28 PM EDT documented as of this encounter Plan of Treatment DateTypeDepartmentCare Team (Latest Contact Info)Wtrykoblksv35/10/2025 10:30 AM ESTAncillary Procedure [facility] [address] [place] [address] 08/23/2025 11:00 AM ESTRoutine [facility] K[facility]ace DIET[facility] [address] [place] [address] Bria Bales DO [address] [place] [address] documented as of this encounter Goals GoalPatient Goal TypeAssociated ProblemsRecent ProgressPatient-Stated?Author Reminders Care PlanOB RemindersNoOpen Scheduling, Backgrounddocumented as of this encounter Procedures Procedure NamePriorityDate/TimeAssociated DiagnosisCommentsUS OB BPP W NON-HSAKHV4512/09/2023 3:19 PM EST documented in this encounter Results * US OB BPP W NON-STRESS (12/09/2023 3:19 PM EST)Anatomical Region LateralityModalityOtherSpecimen (Source)Anatomical Location / Laterality Collection Method / VolumeCollection TimeReceived Time12/09/2023 3:19 PM EST Narrative 12/09/2023 3:21 PM EST The [facility] ?[address] ? [place] [id number] ? Ultrasound Report ? Signed ? Patient: ЕКАТЕРИНА SWEENEY ?MR#: [id number] ?? : 1995 ?Acct:[id number] ?? Age/Sex: 28 / F ?ADM Date: 12/09/23 ?? Loc: FBC ??250-1 ? Attending Dr: Bria Bales D.O. ? Ordering Physician: Bria Bales D.O. ?? Date of Service: 12/09/23 ?? Procedure(s): US OB BPP w non-stress ?? Accession Number(s): [id number] ? cc: Bria Bales D.O.; Physician,Non-Staff M.D. ? [facility] ? [facility]. [facility] ? [place] [address] ? Patient Name: ?? ЕКАТЕРИНА SWEENEY ? MRN: [id number] ? date: 1995 ?Sex: F ?? Assigned Patient Location: FBC ?? Current Patient Location: FBC ?? Accession/Order Number: [id number] ?? Exam Date: 12/09/2023 ??14:32 ?Report Date: 12/09/2023 ??15:19 ? At the request of: ?? BRIA ??NII ? Procedure: ??US OB BPP w non-stress ? EXAMINATION: US OB BPP w non-stress ? HISTORY: Z86.59 HISTORY OF MISCARRIAGE ? COMPARISON: No relevant comparison available. ? TECHNIQUE: Ultrasound biophysical profile was performed in the radiology ?? department. non-reactive stress testing was performed by nursing staff ?? in ?? the birthing center. ? FINDINGS: ?? BREATHING MOVEMENTS: 2.0 ?? GROSS BODY MOVEMENTS: 2.0 ?? TONE: 2.0 ?? QUALITATIVE AMNIOTIC FLUID VOLUME: 2.0 ? PRESENTATION: BREECH ?? HEART RATE: 145.9 bpm H.B./min ?? AMNIOTIC FLUID VOLUME: 20.8 cm cm ?? GESTATIONAL AGE: 28 weeks 0 days ? CONCLUSION: ? Total biophysical profile score: 8.0 ? Electronically authenticated by: ALFA ??ILEANA ?? Date: 12/09/2023 ??15:19 ? Dictated By: ?Alfa Tejeda M.D. ? Signed By: ?12/09/23 1521 ? DD/ 1519 ? TD/TT: ? Welfare Worker: Procedure Note Radiology, Radiologist, - 12/09/2023 [place] [address] Ultrasound Report Signed Patient: ЕКАТЕРИНА SWEENEY RMR#: [id number] : 1995Acct:[id number] Age/Sex: 28 / FADM Date: 12/09/23 Loc: [facility] 250-[address]: Bria Bales D.O. Ordering Physician: Bria Bales D.O. Date of Service: 12/09/23 Procedure(s): US OB BPP w non-stress Accession Number(s): [id number] cc: Bria Bales D.O.; Physician,Non-Staff M.Nancy The [place] [id number] Patient Name: ЕКАТЕРИНА SWEENEY MRN: [id number] date: 1995 Sex: F Assigned Patient Location: [facility] Current Patient Location: [facility] Accession/Order Number: [id number] Exam Date: 12/09/2023 14:32 Report Date: 12/09/2023 [...] M.D. Signed By:12/09/23 1521 DD/ 1519 TD/TT: Welfare Worker: Authorizing ProviderResult TypeResult StatusCorey Nii DOCLINISYNC IMAGINGFinal Result documented in this encounter Visit Diagnoses Not on filedocumented in this encounter Additional Health Concerns Active ProblemsNoted DateDiagnosed DateOB Oltpfiqlt58/28/2023 documented as of this encounter Care Teams Team MemberRelationshipSpecialtyStart DateEnd Date Bria Bales DO [address] [place] [address] [place] [address] PCP - [facility]01/13/24documented as of this encounter
--- OUTSIDE RECORDS SUMMARY | 2025-08-23 10:13 | XMS_ITS | Encounter Summary ---
Author Organization [facility] Address [address] [place] [address] Care Team Providers Care Elevator Adjuster Name Role Phone Bria Bales DO Unavailable Encounter Details DateTypeDepartmentCare Team (Latest Contact Info)Wfznvfknenj98/18/2024Clinisync Result Encounter [facility]S External Department Unsolicited Bria Bales DO [address] [place] [address] [place], [facility]11 Social History Tobacco UseTypesPacks/DayYears UsedDateSmoking Tobacco: Never Assessed CommentsYesSex and Gender InformationValueDate RecordedSex Assigned at Usfsfb3708/07/2023 4:28 PM EDTLegal SpcPdxbgo50/15/2023 6:42 PM EDTGender Identity Rthcgo5008/07/2023 4:28 PM EDTSexual DsoznsolkjjDdjeirin15/25/2023 4:28 PM EDT documented as of this encounter Plan of Treatment DateTypeDepartmentCare Team (Latest Contact Info)Ldukvpypwav38/10/2025 10:30 AM ESTAncillary Procedure [facility] [address] [place] [address] 08/23/2025 11:00 AM ESTRoutine [facility] [address] [facility] [place] [address] Bria Bales DO [address] [place] [address] documented as of this encounter Goals GoalPatient Goal TypeAssociated ProblemsRecent ProgressPatient-Stated?Author Reminders Care PlanOB RemindersNoOpen Scheduling, Backgrounddocumented as of this encounter Procedures Procedure NamePriorityDate/TimeAssociated DiagnosisCommentsUS OB BPP W NON-XNDHUA9412/30/2023 2:40 PM EDT documented in this encounter Results * US OB BPP W NON-STRESS (12/30/2023 2:40 PM EDT)Anatomical Region LateralityModalityOtherSpecimen (Source)Anatomical Location / Laterality Collection Method / VolumeCollection TimeReceived Time12/30/2023 2:40 PM EDT Narrative 12/30/2023 2:43 PM EDT [facility] ?[address] ? [place] [address] ? Ultrasound Report ? Signed ? Patient: ЕКАТЕРИНА SWEENEY ?MR#: [id number] ?? : 1995 ?Acct:[id number] ?? Age/Sex: 28 / F ?ADM Date: 12/30/23 ?? Loc: [facility] ??250-1 ? Attending Dr: Bria Bales D.O. ? Ordering Physician: Bria Bales D.O. ?? Date of Service: 12/30/23 ?? Procedure(s): US OB BPP w non-stress ?? Accession Number(s): [id number] ? cc: Bria Bales D.O.; Physician,Non-Staff M.D. ? [facility] ? [address] ? [place] [address] ? Patient Name: ?? ЕКАТЕРИНА SWEENEY ? MRN: [facility]:[id number] ? date: 1995 ?Sex: F ?? Assigned Patient Location: FBC ?? Current Patient Location: [facility] ?? Accession/Order Number: [id number] ?? Exam Date: 12/30/2023 ??14:07 ?Report Date: 12/30/2023 ??14:40 ? At the request of: ?? BRIA ??NII ? Procedure: ??US OB BPP w non-stress ? EXAMINATION: US OB BPP w non-stress ? HISTORY: HISTORY OF MISCARRIAGE Z57.59 ? COMPARISON: No relevant comparison available. ? TECHNIQUE: Ultrasound biophysical profile was performed in the radiology ?? department. ? FINDINGS: ?? BREATHING MOVEMENTS: 2.0 ?? GROSS BODY MOVEMENTS: 2.0 ?? TONE: 2.0 ?? QUALITATIVE AMNIOTIC FLUID VOLUME: 2.0 ? PRESENTATION: CEPHALIC ?? HEART RATE: 122.7 bpm H.B./min ?? AMNIOTIC FLUID VOLUME: 19.7 cm cm ?? GESTATIONAL AGE: 31 weeks 0 days ? CONCLUSION: ? Total biophysical profile score: 8.0 ? Electronically authenticated by: ALFA ??ILEANA ?? Date: 12/30/2023 ??14:40 ? Dictated By: ?Alfa Tejeda M.D. ? Signed By: ?1824 1443 ? DD/ 1440 ? TD/TT: ? Developmental Electronics Assembler: Procedure Note Radiology, Radiologist, - 12/30/2023 [place] [address] Ultrasound Report Signed Patient: ЕКАТЕРИНА SWEENEY RMR#: [id number] : 1995Acct:[id number] Age/Sex: 28 / FADM Date: 12/30/23 Loc: [facility] 250-[address]: Bria Bales D.O. Ordering Physician: Bria Bales D.O. Date of Service: 12/30/23 Procedure(s): US OB BPP w non-stress Accession Number(s): [id number] cc: Bria Bales D.O.; Physician,Non-Staff M.DaTmmie The [place] [address] Patient Name: ЕКАТЕРИНА SWEENEY MRN: [id number] date: 1995 Sex: F Assigned Patient Location: [facility] Current Patient Location: [facility] Accession/Order Number: [id number] Exam Date: 12/30/2023 14:07 Report Date: 12/30/2023 [...] Alfa Tejeda M.D. Signed By:12/30/23 1443 DD/ 1440 TD/TT: Developmental Electronics Assembler: Authorizing ProviderResult TypeResult StatusCorey Nii DOCLINISYNC IMAGINGFinal Result documented in this encounter Visit Diagnoses Not on filedocumented in this encounter Additional Health Concerns Active ProblemsNoted DateDiagnosed DateOB Xvdlrswos29/28/2023 documented as of this encounter Care Teams Team MemberRelationshipSpecialtyStart DateEnd Date Bria Bales DO [address] [place] [address] PCP - [facility]01/13/24documented as of this encounter
--- OUTSIDE RECORDS SUMMARY | 2025-08-23 10:13 | XMS_ITS | Encounter Summary ---
Author Organization [facility] Address [address] [place] [address] Care Team Providers Care Oil Furnace Installer Name Role Phone Bria Bales DO Unavailable Encounter Details DateTypeDepartmentCare Team (Latest Contact Info)Wxoebclzfpb95/26/2024linisync Result Encounter [facility]S External Department Unsolicited Bria Bales DO [address] [place] [address] [place], [facility]11 Social History Tobacco UseTypesPacks/DayYears UsedDateSmoking Tobacco: Never Assessed CommentsYesSex and Gender InformationValueDate RecordedSex Assigned at Tljcla0508/07/2023 4:28 PM EDTLegal BwbXjyrmu47/15/2023 6:42 PM EDTGender Identity Puqdjb1308/07/2023 4:28 PM EDTSexual AvkfnhbftrpBimzwskw90/25/2023 4:28 PM EDT documented as of this encounter Plan of Treatment DateTypeDepartmentCare Team (Latest Contact Info)Pbdyoyzywpm67/10/2025 10:30 AM ESTAncillary Procedure [facility] Kandace DIETZ [address] [place] [address] 08/23/2025 11:00 AM ESTRoutine [facility]ace DIETZ [address] [facility] [place] [address] Bria Bales DO [address] [place] [address] documented as of this encounter Goals GoalPatient Goal TypeAssociated ProblemsRecent ProgressPatient-Stated?Author Reminders Care PlanOB RemindersNoOpen Scheduling, Backgrounddocumented as of this encounter Procedures Procedure NamePriorityDate/TimeAssociated DiagnosisCommentsUS OB GROWTH 01/07/2024 7:06 AM EDT documented in this encounter Results * US OB GROWTH (01/07/2024 7:06 AM EDT)Anatomical RegionLateralityModalityOther Specimen (Source)Anatomical Location / LateralityCollection Method / Volume Collection TimeReceived Time01/07/2024 7:06 AM EDT Narrative 01/07/2024 7:08 AM EDT The [facility] ?[address] ? [place] [address] ? Ultrasound Report ? Signed ? Patient: ЕКАТЕРИНА SWEENEY ?MR#: [id number] ?? : 1995 ?Acct:[id number] ?? Age/Sex: 28 / F ?ADM Date: 01/06/24 ?? Loc: US ? Attending Dr: Bria Bales D.O. ? Ordering Physician: Bria Bales D.O. ?? Date of Service: 01/06/24 ?? Procedure(s): US OB growth ?? Accession Number(s): [id number] ? cc: Bria Bales D.O.; Physician,Non-Staff M.D. ? The [facility] ? [facility] ? [place] [address] ? Patient Name: ?? ЕКАТЕРИНА SWEENEY ? MRN: [id number] ? date: 1995 ?Sex: F ?? Assigned Patient Location: US ?? Current Patient Location: US ?? Accession/Order Number: [id number] ?? Exam Date: 01/06/2024 ??14:30 ?Report Date: 01/07/2024 ??07:06 ? At the request of: ?? BRIA ??NII ? Procedure: ??US OB growth ? EXAMINATION: US OB growth ? HISTORY: History of oligohydramnios Z87.59 ? COMPARISON: No relevant comparison available. ? FINDINGS: ? Heart Rate: 139.2 bpm ?? Amniotic Fluid Volume: 21.4 cm ?? Number: 1.0 ?? Position: Cephalic presentation, longitudinal lie ?? Maximum Vertical Pocket: ?? 8.6 cm cm ?? 1.9 cm cm ?? 5.7 cm cm ?? 5.2 cm cm ? BIOMETRY: ?? BPD: 8.2 cm cm; 32 weeks 6 days; 66% ?? HC: 29.4 cmcm; 32 weeks 3 days , 25% ?? AC: 28.2 cm cm; 32 weeks 2 days, 55% ?? FL: 5.9 cm cm; 30 weeks 4 days; 8.5 % % ?? EFW: 1841.5 grams, 4 lbs. 1 oz., 33% ?? FL/AC: 20.8 ?? FL/BPD: 71.8 ?? HC/AC: 1.0 ? GESTATIONAL AGE: ?? Age by EDC: 32 weeks 0 days ?? GOOD by EDC: 03/02/2024 ?? Age by US: 32 weeks 0 days ?? GOOD by US: 03/02/2024 ? US/US OB growth ?? IMPRESSION: ? Normal interval growth ? Electronically authenticated by: ALFA ??ILEANA ?? Date: 01/07/2024 ??07:06 ? Dictated By: ?Alfa Tejeda M.D. ? Signed By: ?01/07/24 0708 ? DD/ 0706 ? TD/TT: ? Hospital Superintendent: Procedure Note Radiology, Radiologist, - 01/07/2024 [place] [address] Ultrasound Report Signed Patient: ЕКАТЕРИНА SWEENEY RMR#: [id number] : 1995Acct:[id number] Age/Sex: 28 / FADM Date: 01/06/24 Loc: US Attending Dr: Bria Bales D.O. Ordering Physician: Bria Bales D.O. Date of Service: 01/06/24 Procedure(s): US OB growth Accession Number(s): [id number] cc: Bria Bales D.O.; Physician,Non-Staff Lalit The [address] [address] Patient Name: ЕКАТЕРИНА SWEENEY MRN: [id number] date: 1995 Sex: F Assigned Patient Location: US Current Patient Location: US Accession/Order Number: [id number] Exam Date: 01/06/2024 14:30 Report Date: 01/07/2024 [...] Dictated By: Alfa Tejeda M.D. Signed By:01/07/24 0708 DD/ 5 TD/TT: Hospital Superintendent: Authorizing ProviderResult TypeResult StatusCorey Nii DOCLINISYNC IMAGINGFinal Result documented in this encounter Visit Diagnoses Not on filedocumented in this encounter Additional Health Concerns Active ProblemsNoted DateDiagnosed DateOB Cyfpqqscy15/28/2023 documented as of this encounter Care Teams Team MemberRelationshipSpecialtyStart DateEnd Date Bria Bales DO [address] [place] [address] [place] [address] PCP - [facility]01/13/24documented as of this encounter
--- OUTSIDE RECORDS SUMMARY | 2025-08-23 10:13 | XMS_ITS | Encounter Summary ---
Author Organization [facility] Address [address] [place] [address] Care Team Providers Care Truck Repair Service Estimator Name Role Phone Bria Bales DO Unavailable Encounter Details DateTypeDepartmentCare Team (Latest Contact Info)Fsvhexknryy98/26/2024linisync Result Encounter [facility] External Department Unsolicited Bria Bales DO [address] [place] [place], [facility]11 Social History Tobacco UseTypesPacks/DayYears UsedDateSmoking Tobacco: Never Assessed CommentsYesSex and Gender InformationValueDate RecordedSex Assigned at Vwdedb9108/07/2023 4:28 PM EDTLegal SaiEpjoqw28/15/2023 6:42 PM EDTGender Identity Kaxfef3208/07/2023 4:28 PM EDTSexual CsnbxdygswvJrgfwkwl95/25/2023 4:28 PM EDT documented as of this encounter Plan of Treatment DateTypeDepartmentCare Team (Latest Contact Info)Hhibqaqhvmm81/10/2025 10:30 AM ESTAncillary Procedure [facility] Kandace DIETZ [address] [place] [employer] [place] [address] 08/23/2025 11:00 AM ESTRoutine [facility] DI[facility]Z [address] [facility] [place] [address] Bria Bales DO [address] [place] [address] documented as of this encounter Goals GoalPatient Goal TypeAssociated ProblemsRecent ProgressPatient-Stated?Author Reminders Care PlanOB RemindersNoOpen Scheduling, Backgrounddocumented as of this encounter Procedures Procedure NamePriorityDate/TimeAssociated DiagnosisCommentsGLUCOSE 1 HOURRoutine 01/07/2024 9:03 AM EDT ALL CBC WITH AUTO ATFFQkonteu83/26/2024 9:03 AM EDT US OB BPP W NON-IORUXL8701/07/2024 7:06 AM EDT documented in this encounter Results * (ABNORMAL) GLUCOSE 1 HOUR (01/07/2024 9:03 AM EDT)ComponentValueRef RangeTest MethodAnalysis TimePerformed AtPathologist SignatureGLUCOSE 1 KCJG369(H)<130 mg/dLTBHSpecimen (Source)Anatomical Location / LateralityCollection Method / VolumeCollection TimeReceived Time01/07/2024 9:03 AM EDT01/07/2024 9:03 AM EDT Narrative [facility]IN[facility]NC - 01/07/2024 10:38 AM EDT Authorizing ProviderResult TypeResult StatusAmy Krys [facility] BLOOD ORDERABLES Final ResultPerforming OrganizationAddressCity/State/ZIP CodePhone Number CLINISYNC [facility] * (ABNORMAL) ALL CBC WITH AUTO DIFF (01/07/2024 9:03 AM EDT)ComponentValueRef RangeTest MethodAnalysis TimePerformed AtPathologist SignatureTBH WBC7.34.0 - 11.0 10 3/uLTBHTBH RBC3.23(L)4.20 - 5.40 10 6/uLTBHTBH HGB10.1(L)12.0 - 16.0 g/dLTBHTBH HCT31.2(L)36.0 - 48.0 %TBHTBH MCV96.681.0 - 99.0 fLTBHTBH MCH31.3 26.7 - 34.0 pgTBHTBH MCHC32.429.9 - 35.2 g/dLTBHTBH RDW13.211.0 - 15.0 %TBHTBH EKR952(L)150 - 450 10 3/uLTBHTBH MPV11.19.5 - 13.5 fLTBHNEUTROPHILS PERCENT AUTO80.2(H)43.0 - 75.0 %TBHLYMPHOCYTES PERCENT AUTO13.6(L)20.5 - 60.0 %TBH MONOCYTES PERCENT AUTO5.21.7 - 12.0 %TBHTBH EO %0.3(L)0.9 - 7.0 %TBHBASOPHILS PERCENT AUTO0.1(L)0.2 - 2.0 %TBHIMMATURE GRANULOCYTES PCT AUTO0.6(H)0.0 - 0.5 %TBHNEUTROPHILS ABSOLUTE AUTO5.81.4 - 6.5 10 3/uLTBHLYMPHOCYTES ABSOLUTE AUTO 1.0(L)1.2 - 3.8 10 3/uLTBHMONOCYTES ABSOLUTE AUTO0.40.3 - 0.8 10 3/uLTBHTBH EO #0.00.0 - 0.7 10 3/uLTBHBASOPHILS ABSOLUTE AUTO0.00.0 - 0.1 10 3/uLTBHIMMATURE GRANULOCYTES ABS AUTO0.04(H)0.00 - 0.03 10 3/uLTBHSpecimen (Source)Anatomical Location / LateralityCollection Method / VolumeCollection TimeReceived Time 01/07/2024 9:03 AM EDT01/07/2024 9:03 AM EDT Narrative CLIN[facility]YNC - 01/07/2024 9:20 AM EDT Authorizing ProviderResult TypeResult StatusAmy Krys PACLINISYNCFinal Result Performing OrganizationAddressCity/State/ZIP CodePhone Number CLINISYNC TB * OB BPP W NON-STRESS (01/07/2024 7:06 AM EDT)Anatomical Region LateralityModalityOtherSpecimen (Source)Anatomical Location / Laterality Collection Method / VolumeCollection TimeReceived Time01/07/2024 7:06 AM EDT Narrative 01/07/2024 7:09 AM EDT [facility] ?[address] ? [place] [address] ? Ultrasound Report ? Signed ? Patient: PATEL,ЕКАТЕРИНА R ?MR#: [id number] ?? : 1995 ?Acct:[id number] ?? Age/Sex: 28 / F ?ADM Date: 03/25/24 ?? Loc: US ? Attending : Bria Bales D.O. ? Ordering Physician: Bria Bales D.O. ?? Date of Service: 01/06/24 ?? Procedure(s): US OB BPP w non-stress ?? Accession Number(s): [id number] ? cc: Bria Bales D.O.; Physician,Non-Staff M.D. ? [facility] ? [address] ? [place] [address] ? Patient Name: ?? ЕКАТЕРИНА Lemos PATEL ? MRN: [facility]:[id number] ? date: 1995 ?Sex: F ?? Assigned Patient Location: US ?? Current Patient Location: US ?? Accession/Order Number: [id number] ?? Exam Date: 01/06/2024 ??14:30 ?Report Date: 01/07/2024 ??07:06 ? At the request of: ?? BRIA ??NII ? Procedure: ??US OB BPP w non-stress ? EXAMINATION: US OB BPP w non-stress ? HISTORY: History of miscarriage Z87.59 ? COMPARISON: No relevant comparison available. ? TECHNIQUE: Ultrasound biophysical profile was performed in the radiology ?? department. ? FINDINGS: ?? BREATHING MOVEMENTS: 2.0 ?? GROSS BODY MOVEMENTS: 2.0 ?? TONE: 2.0 ?? QUALITATIVE AMNIOTIC FLUID VOLUME: 2.0 ? PRESENTATION: CEPHALIC ?? HEART RATE: 139.2 bpm H.B./min ?? AMNIOTIC FLUID VOLUME: 21.4 cm cm ?? GESTATIONAL AGE: 32 weeks 0 days ? CONCLUSION: ? Total biophysical profile score: 8.0 ? Electronically authenticated by: ALFA ??ILEANA ?? Date: 01/07/2024 ??07:06 ? Dictated By: ?Alfa Tejeda M.D. ? Signed By: ?01/07/24 0709 ? DD/ 07 ? TD/TT: ? Vp Celebrity Services: Procedure Note Radiology, Radiologist, MD - 01/07/[address] [address] Ultrasound Report Signed Patient: ЕКАТЕРИНА SWEENEY RMR#: [id number] : 1995Acct:[id number] Age/Sex: 28 / FADM Date: 01/06/24 Loc: US Attending Dr: Bria Bales D.O. Ordering Physician: Bria Bales D.O. Date of Service: 01/06/24 Procedure(s): US OB BPP w non-stress Accession Number(s): [id number] cc: Bria Bales D.O.; Physician,Non-Staff Lalit [address] [address] Patient Name: ЕКАТЕРИНА SWEENEY MRN: [facility]:[id number] date: 1995 Sex: F Assigned Patient Location: US Current Patient Location: US Accession/Order Number: [id number] Exam Date: 01/06/2024 14:30 Report Date: 01/07/2024 [...] 07:06 Dictated By: Alfa Tejeda M.D. Signed By:01/07/24708 DD/ 5 TD/TT: Vp [employer]ity [employer]: Authorizing ProviderResult TypeResult StatusCorey Nii DOCLINISYNC IMAGINGFinal Result documented in this encounter Visit Diagnoses Not on filedocumented in this encounter Additional Health Concerns Active ProblemsNoted DateDiagnosed DateOB Ggrhhwjet56/28/2023 documented as of this encounter Care Teams Team MemberRelationshipSpecialtyStart DateEnd Date Bria [place] [address] PCP - [facility]01/13/24documented as of this encounter
--- OUTSIDE RECORDS SUMMARY | 2025-08-23 10:13 | XMS_ITS | Encounter Summary ---
Author Organization [facility] Address [address] [place] [address] Care Team Providers Care Associate Dean Of Women Name Role Phone Bria Bales DO Unavailable Encounter Details DateTypeDepartmentCare Team (Latest Contact Info)Cxgzccgezxv91/23/2024linisync Result Encounter [facility] External Department Unsolicited Bria Bales DO [address] [place] [place], [facility]11 Social History Tobacco UseTypesPacks/DayYears UsedDateSmoking Tobacco: Never Assessed CommentsYesSex and Gender InformationValueDate RecordedSex Assigned at Jgzrhw2008/07/2023 4:28 PM EDTLegal MfrEcoera22/15/2023 6:42 PM EDTGender Identity Amlpln9008/07/2023 4:28 PM EDTSexual McrhibyokwnQoqvckza73/25/2023 4:28 PM EDT documented as of this encounter Plan of Treatment DateTypeDepartmentCare Team (Latest Contact Info)Inyeonnabqf14/10/2025 10:30 AM ESTAncillary Procedure [facility] Kandace DIETZ [address] [place] [address] 08/23/2025 11:00 AM ESTRoutine [facility] Kandace DIETZ [address] [place] [address] Bria Bales DO [address] [place] [address] documented as of this encounter Goals GoalPatient Goal TypeAssociated ProblemsRecent ProgressPatient-Stated?Author Reminders Care PlanOB RemindersNoOpen Scheduling, Backgrounddocumented as of this encounter Procedures Procedure NamePriorityDate/TimeAssociated DiagnosisCommentsUS OB BPP W NON-KXPAEH4202/04/2024 7:12 AM EDT documented in this encounter Results * US OB BPP W NON-STRESS (02/04/2024 7:12 AM EDT)Anatomical Region LateralityModalityOtherSpecimen (Source)Anatomical Location / Laterality Collection Method / VolumeCollection TimeReceived Time02/04/2024 7:12 AM EDT Narrative 02/04/2024 7:15 AM EDT [facility] ?[address] ? [place] [address] ? Ultrasound Report ? Signed ? Patient: ЕКАТЕРИНА SWEENEY ?MR#: [id number] ?? : 1995 ?Acct:[id number] ?? Age/Sex: 28 / F ?ADM Date: 02/03/24 ?? Loc: US ? Attending Dr: Bria Bales D.O. ? Ordering Physician: Bria Bales D.O. ?? Date of Service: 02/03/24 ?? Procedure(s): US OB BPP w non-stress ?? Accession Number(s): [id number] ? cc: Bria Bales D.O.; Physician,Non-Staff M.D. ? [facility] ? [address] ? [place] [address] ? Patient Name: ?? ЕКАТЕРИНА SWEENEY ? MRN: [facility]:[id number] ? date: 1995 ?Sex: F ?? Assigned Patient Location: ?? Current Patient Location: ? Accession/Order Number: [id number] ?? Exam Date: 02/03/2024 ??14:20 ?Report Date: 02/04/2024 ??07:12 ? At the request of: ?? BRIA ??NII ? Procedure: ??US OB BPP w non-stress ? EXAMINATION: US OB BPP w non-stress ? HISTORY: HISTORY OF OLIGOHYDRAMINOS Z87.59 ? COMPARISON: No relevant comparison available. ? TECHNIQUE: Ultrasound biophysical profile was performed in the radiology ?? department. non-reactive stress testing was performed by nursing staff ?? in ?? the birthing center. ? FINDINGS: ?? BREATHING MOVEMENTS: 2.0 ?? GROSS BODY MOVEMENTS: 2.0 ?? TONE: 2.0 ?? QUALITATIVE AMNIOTIC FLUID VOLUME: 2.0 ? PRESENTATION: CEPHALIC ?? HEART RATE: 135.0 bpm H.B./min ?? AMNIOTIC FLUID VOLUME: 24.5 cm cm ?? GESTATIONAL AGE: 36 weeks 0 days ? CONCLUSION: ? Total biophysical profile score: 8.0 ? Electronically authenticated by: ALFA ??ILEANA ?? Date: 02/04/2024 ??07:12 ? Dictated By: ?Alfa Tejeda M.D. ? Signed By: ?02/04/24 0715 ? DD/ 0712 ? TD/TT: ? Certified Composites Technician: Procedure Note Radiology, Radiologist, - 02/04/2024 [place] [address] Ultrasound Report Signed Patient: ЕКАТЕРИНА SWEENEY RMR#: [id number] : 1995Acct:[id number] Age/Sex: 28 / FADM Date: 02/03/24 Loc: US Attending Dr: Bria Bales D.O. Ordering Physician: Bria Bales D.O. Date of Service: 02/03/24 Procedure(s): US OB BPP w non-stress Accession Number(s): [id number] cc: Bria Bales D.O.; Physician,Non-Staff M.Nancy The [place] [id number] Patient Name: ЕКАТЕРИНА SWEENEY MRN: [id number] date: 1995 Sex: F Assigned Patient Location: US Current Patient Location: Accession/Order Number: [id number] Exam Date: 02/03/2024 14:20 Report Date: 02/04/2024 [...] 07:12 Dictated By: Alfa Tejeda M.D. Signed By:02/04/24714 DD/ 1 TD/TT: Certified Composites Technician: Authorizing ProviderResult TypeResult StatusCorey Nii DOCLINISYNC IMAGINGFinal Result documented in this encounter Visit Diagnoses Not on filedocumented in this encounter Additional Health Concerns Active ProblemsNoted DateDiagnosed DateOB Fswjbsyzl37/28/2023 documented as of this encounter Care Teams Team MemberRelationshipSpecialtyStart DateEnd Date Bria Bales DO [address] [place] [address] [place] [address] PCP - [facility]01/13/24documented as of this encounter
--- OUTSIDE RECORDS SUMMARY | 2025-08-23 10:13 | XMS_ITS | Encounter Summary ---
Author Organization [facility] Address [address] [place] [address] Care Team Providers Care Pediatrician Managing Partner Name Role Phone Bria Bales DO Unavailable Encounter Details DateTypeDepartmentCare Team (Latest Contact Info)Cwamytievko72/01/2024linisync Result Encounter [facility] External Department Unsolicited Bria Bales DO [address] [place] [place], [facility]11 Social History Tobacco UseTypesPacks/DayYears UsedDateSmoking Tobacco: Never Assessed CommentsYesSex and Gender InformationValueDate RecordedSex Assigned at Zehzyl0008/07/2023 4:28 PM EDTLegal SxwOmwsdw85/15/2023 6:42 PM EDTGender Identity Firlsx4208/07/2023 4:28 PM EDTSexual CoanedfzpjzLzxamjcj23/25/2023 4:28 PM EDT documented as of this encounter Plan of Treatment DateTypeDepartmentCare Team (Latest Contact Info)Ohblsxivmaz47/10/2025 10:30 AM ESTAncillary Procedure [facility] Kandace DIETZ [address] [place] [address] 08/23/2025 11:00 AM ESTRoutine [facility] Kandace DIETZ [address] [place] [address] Bria Bales DO [address] [place] [address] documented as of this encounter Goals GoalPatient Goal TypeAssociated ProblemsRecent ProgressPatient-Stated?Author Reminders Care PlanOB RemindersNoOpen Scheduling, Backgrounddocumented as of this encounter Procedures Procedure NamePriorityDate/TimeAssociated DiagnosisCommentsUS OB BPP W NON-HOOTCI2601/13/2024 2:52 PM EDT documented in this encounter Results * US OB BPP W NON-STRESS (01/13/2024 2:52 PM EDT)Anatomical Region LateralityModalityOtherSpecimen (Source)Anatomical Location / Laterality Collection Method / VolumeCollection TimeReceived Time01/13/2024 2:52 PM EDT Narrative 01/13/2024 2:55 PM EDT [facility] ?[address] ? [place] [address] ? Ultrasound Report ? Signed ? Patient: ЕКАТЕРИНА SWEENEY ?MR#: [id number] ?? : 1995 ?Acct:[id number] ?? Age/Sex: 28 / F ?ADM Date: 01/13/24 ?? Loc: [facility] ??250-1 ? Attending Dr: Bria Bales D.O. ? Ordering Physician: Bria Bales D.O. ?? Date of Service: 01/13/24 ?? Procedure(s): US OB BPP w non-stress ?? Accession Number(s): [id number] ? cc: Bria Bales D.O.; Physician,Non-Staff M.D. ? [facility] ? [address] ? [place] [address] ? Patient Name: ?? ЕКАТЕРИНА SWEENEY ? MRN: [id number] ? date: 1995 ?Sex: F ?? Assigned Patient Location: [facility] ?? Current Patient Location: [facility] ?? Accession/Order Number: [id number] ?? Exam Date: 01/13/2024 ??14:07 ?Report Date: 01/13/2024 ??14:52 ? At the request of: ?? BRIA ??NII ? Procedure: ??US OB BPP w non-stress ? EXAMINATION: US OB BPP w non-stress ? HISTORY: HISTORY OF MISCARRIAGE Z87.59 ? COMPARISON: Ultrasound OB biophysical 01/06/2024 ? TECHNIQUE: Ultrasound biophysical profile was performed in the radiology ?? department. ? BREATHING MOVEMENTS: 2.0 ?? GROSS BODY MOVEMENTS: 2.0 ?? TONE: 2.0 ?? QUALITATIVE AMNIOTIC FLUID VOLUME: 2.0 ? PRESENTATION: CEPHALIC ?? HEART RATE: 139.9 bpm bpm. ?? AMNIOTIC FLUID VOLUME: 23.4 cm ?? GESTATIONAL AGE: 33 weeks 0 days ? CONCLUSION: ? 1. Total biophysical profile score 8.0. ?? 2. Normal amniotic fluid volume, but approaching upper limits of normal. ? Electronically authenticated by: EFREN ??MISHA ?? Date: 01/13/2024 ??14:52 ? Dictated By: ?Efren Ventura M.D. ? Signed By: ?01/13/241454 ? DD/ 1452 ? TD/TT: ? Compound Mixer: Procedure Note Radiology, Radiologist, MD - 01/16/2024 [place] [address] Ultrasound Report Signed Patient: ЕКАТЕРИНА SWEENEY RMR#: [id number] : 1995Acct:[id number] Age/Sex: 28 / FADM Date: 01/13/24 Loc: [facility] 250-[address]: Bria Bales D.O. Ordering Physician: Bria Bales D.O. Date of Service: 01/13/24 Procedure(s): US OB BPP w non-stress Accession Number(s): [id number] cc: Bria Bales D.O.; Physician,Non-Staff M.Nancy The [place] [id number] Patient Name: ЕКАТЕРИНА SWEENEY MRN: [facility]:[id number] date: 1995 Sex: F Assigned Patient Location: [facility] Current Patient Location: [facility] Accession/Order Number: [id number] Exam Date: 01/13/2024 14:07 Report Date: 01/13/2024 [...] M.D. Signed By:01/13/24 1455 DD/ 1452 TD/TT: Compound Mixer: Authorizing ProviderResult TypeResult StatusCorey Nii DOCLINISYNC IMAGINGFinal Result documented in this encounter Visit Diagnoses Not on filedocumented in this encounter Additional Health Concerns Active ProblemsNoted DateDiagnosed DateOB Mmlabxoiv31/28/2023 documented as of this encounter Care Teams Team MemberRelationshipSpecialtyStart DateEnd Date Bria Bales DO [address] [place] [address] [place] [address] PCP - [facility]01/13/24documented as of this encounter
--- OUTSIDE RECORDS SUMMARY | 2025-08-23 10:13 | XMS_ITS | Clinical Summary ---
Author Organization [facility] Address [address] [place] [address] Care Team Providers Care Log Roper Name Role Phone Marco Bales DO Unavailable Allergies No known active allergies Medications MedicationSigDispense QuantityRefillsLast FilledStart DateEnd DateStatus Vit-Fe Fumarate-FA (M- Plus) 27-1 MG tablet Indications:Missed mensesTAKE 1 TABLET BY MOUTH EVERY DAY IN THE MORNING 30 tablet 1104/5Active levothyroxine (Synthroid, Levoxyl) 100 MCG tablet Indications:Thyroid diseaseTAKE 1 TABLET (100 MCG) BY MOUTH 1 (ONE) TIME EACH DAY AT THE SAME TIME 30 tablet 505Active citalopram (CeleXA) 20 MG tablet Indications:Depression affecting (HCC)Take 1 tablet (20 mg) by mouth Daily 30 tablet 510//468339/6Active Active Problems ProblemNoted DateDiagnosed DateRectal /27/2024Thyroid disease 12/16/2023History of hmehpvpbemtmyla71/04/2024nxiety, ftukiiffbjd35/04/2024 Estimated Date of LnvfcixdYdsklkxyFbp02/10/2026ased on Ultrasound Encounters DateTypeDepartmentCare VficVzwolkzhnke88/27/2025 9:50 AM EDTRoutine [facility] [address] [place] [address] [place] [id number] Rosana Marcano PA size inconsistent with dates ([facility]-HCC) (Primary Dx); Third trimester ([facility]-HCC); 29 weeks gestation of ([facility]); History of miscarriage; History of oligohydramnios; Thyroid disease; Acquired autoimmune nsefytxilqfelx86/27/2025[facility] flowsheet [facility] [address] [place] [address] [place] [address] Rosana Marcano PA 07/26/2025Patient Outreach [facility] [address] [place] [address] Rosana Aquino LPN 07/23/2025bstract [facility] [address] [place] [address] Rosana Aquino LPN 07/22/2025Telephone [facility] [address] [place] [address] [place] [address] Mala Laura MA 07/21/2025 10:00 AM EDTRoutine [facility] [address] [place] [address] [place] [address] Penny Solorio, GIOVANI Acquired autoimmune hypothyroidism (Primary Dx); Second trimester ([facility]); 26 weeks gestation of ([facility]); Depression affecting (HCC)07/21/2025[facility] flowsheet [facility] [address] [place] [address] [place] [address] Penny Solorio, GIOVANI 06/22/2025 9:50 AM EDTRoutine [facility] [address] [place] [address] [place] [address] Marco Bales DO 22 weeks gestation of ([facility]); Second trimester ([facility]); Thyroid disease ; Diabetes mellitus vghnorath05/09/2025[facility] flowsheet [facility] [address] [place] [address] [place] [address] Marco Bales DO 06/09/2025 11:00 AM EDTAncillary Procedure [facility] [address] [place] [address] [place] [address] 5Clinisync Result Encounter [facility] External Department Unsolicited Marco Bales, 06/04/2025Orders Only [facility] [address] [place] [address] Ailin Huston LPN 05/25/2025 9:40 AM EDTRoutine [facility] [address] [place] [address] Marco Bales DO 18 weeks gestation of ([facility]); Second trimester ([facility]); Well woman exam with routine gynecological exam; Screening, , for anatomic survey ([facility]); Exposure to STD; Vaginal discharge; Thyroid ynnolhl5905/25/2025linisync Result Encounter [facility] External Department Unsolicited Marco Bales, 05/25/2025External Result Encounter [facility] External Department Unsolicited Marco Bales DO 05/25/2025amboo flowsheet [facility] [address] [place] [phone] Marco Bales DO from Last 3 Months Family History RelationNameStatusCommentsDaughterAliveMotherAliveSonAlive Social History Tobacco UseTypesPacks/DayYears UsedDateSmoking Tobacco: Never Assessed Estimated Date of FrwldukmRspbiorcCau08/10/2026ased on UltrasoundSex and Gender InformationValueDate RecordedSex Assigned at AulbfAzytah93/25/2023 4:28 PM EDT Legal EbuNfdped65/15/2023 6:42 PM EDTGender ApdwlpxpDtbfyq42/25/2023 4:28 PM EDT Sexual ZilzytpohqjZyphwtpd05/25/2023 4:28 PM EDT Last Filed Vital Signs Vital SignReadingTime TakenCommentsBlood Emwkircc737/5208/09/2025 10:14 AM EDT Pulse--Temperature--Respiratory Rate--Oxygen Saturation--Inhaled Oxygen Concentration--Usuyyc80.3 kg (159 lb 8 oz)08/09/2025 10:14 AM FRLQkmnks512.6 cm (5' 6 )04/02/2024 11:40 AM EDTBody Mass Index25.7404/02/2024 11:40 AM EDT Plan of Treatment DateTypeDepartmentCare Team (Latest Contact Info)Aagsndldqut78/10/2025 10:30 AM ESTAncillary Procedure [facility] [address] [place] [phone] 08/23/2025 11:00 AM ESTRoutine [facility] [address] [place] [phone] Marco Bales, [address] [facility] [address] [place], [place] [phone] Health MaintenanceDue DateLast DoneCommentsCOVID-19 Vaccine ( season) 2025Influenza Vaccine (#1)2025Pap Smear, 09/09/2023ervical Cancer Wkbwvnyel93/27/2028HPV/Fqtgtp7509/09/2028Pneumococcal Vaccine: Pediatrics (0 to 5 Years) and At-Risk Patients (6 to 64 Years)Aged Out No longer eligible based on patient's age to complete this topic Goals GoalPatient Goal TypeAssociated ProblemsRecent ProgressPatient-Stated?Author Reminders Care PlanOB RemindersNoOpen Scheduling, Background Procedures Procedure NamePriorityDate/TimeAssociated DiagnosisCommentsPOCT URINALYSIS CEGHQYDAOqpnqxd43/27/2025 10:19 AM EDT 29 weeks gestation of ([facility]) POCT URINALYSIS RVDUUIHYJfonauw95/08/2025 10:14 AM EDT Second trimester ([facility]) CULTURE, URINE, MTVCHCXIjwxibg35/15/2025 12:03 PM EDT Missed menses POCT URINALYSIS ZIWHUIVMNmkyydw44/09/2025 10:01 AM EDT 22 weeks gestation of ([facility]) Second trimester ([facility]) US OB 14+ WEEKS ANATOMY VAZZVhvsiul66/27/2025 12:06 PM EDT Screening, , for anatomic survey ([facility]) HBSAG GXMBFDGewgulr08/27/2025 10:54 AM EDT RAPID PLASMA REAGIN, PQULJLxbgmta22/27/2025 10:54 AM EDT HIV AB/P24 AG WITH EYSUHHYisijle87/27/2025 10:54 AM EDT HCV ANTIBODY RFX TO QUANT XINVghlihi96/27/2025 10:54 AM EDT ALL RUBELLA IGG GZYwopyov61/27/2025 10:54 AM EDT ALL TYPE AND TOBECKVerguna78/27/2025 10:54 AM EDT ALL THYROID STIM HSCVMXEDixpepb17/27/2025 10:54 AM EDT MLR HEMOGLOBIN K7XFveniqc18/27/2025 10:54 AM EDT ALL CBC WITH AUTO DIEEZllfuva89/27/2025 10:54 AM EDT CANNABINOID CONF, MS, GRJwiorjy20/27/2025 10:44 AM EDT TBH DRUG SCREEN RAPID (URINE)Fkxokeq5606/09/2025 10:44 AM EDT RECURRENT VAGINITIS (HTRX)Egmkksf0305/25/2025 12:11 PM EDT POCT URINALYSIS IBTNCTHEHlkmaft37/12/2025 10:26 AM EDT 18 weeks gestation of ([facility]) Second trimester ([facility]) IGP,APTIMA HPV,AGE WREDVxvtjcp67/12/2025 10:00 AM EDT PAP LEVNLJwutdzq21/12/2025 12:00 AM EDTfrom Last 3 Months Results * POCT urinalysis dipstick manually resulted (08/09/2025 10:19 AM EDT) Only the most recent of4 resultswithin the time period is included. ComponentValueRef RangeTest MethodAnalysis TimePerformed AtPathologist Signature Color, UAYellowClarity, UAClearGlucose, UANegativeNegative - 2000(110) ++++ mg/dLBilirubin, UANegativeNegative - 4(70) +++ mg/dLKetones, UANegativeNegative - 160(16) ++++ mg/dLSpec Grav, UA0.0101 - 1.03Blood, UANegativeNegative - 50 Felice/mcLpH, UA7.05 - 9Protein, UANegativeNegative - 2000(20) ++++ mg/dL Urobilinogen, UA0.20.2 - 12 mg/dLLeukocytes, UANegativeNegative - 500+++ Regina/mcL Nitrite, UANegativeNegative - PositiveSpecimen (Source)Anatomical Location / LateralityCollection Method / VolumeCollection TimeReceived XhpeMtjit92/27/2025 10:19 AM EDT Narrative Authorizing ProviderResult TypeResult StatusRosana [facility] OF CARE TEST ENTER/EDIT ORDERABLESFinal Result * Urine culture (06/28/2025 12:03 PM EDT)Specimen (Source)Anatomical Location / LateralityCollection Method / VolumeCollection TimeReceived TimeUrineUrine specimen obtained by clean catch procedure / Unknown Narrative Authorizing ProviderResult TypeResult StatusMarco SÁNCHEZ MICROBIOLOGY - GENERAL ORDERABLESFinal ResultPerforming OrganizationAddressCity/State/ZIP Code Phone Number EXTERNAL LAB * US OB 14+ weeks anatomy scan (06/09/2025 12:06 PM EDT)Anatomical Region LateralityModalityBodyUltrasoundSpecimen (Source)Anatomical Location / LateralityCollection Method / VolumeCollection TimeReceived Time08/ 12:43 PM EDT Impressions 06/10/2025 1:30 PM EDT Single, live intrauterine , current sonographic age of 20 weeks and 2 days, with an estimated date of delivery of October 25, 2025. * ??Estimated Weight (g) by Percentile is based upon an accurate estimated age based onlast menstrual period. ?? TRANSCRIBED BY: ? ELECTRONICALLY SIGNED BY: Gil Godwin MD Narrative 06/10/2025 1:30 PM EDT FINDINGS: A single, live intrauterine is present with normal cardiac rate of ??140 beats per minute. Normal activity and amniotic fluid volume. Amniotic fluid index is ?? cm. ??Morphologyis grossly normal. The ?? The placenta is posterior, ??inferior aspect 7.6 cm from the closed internal cervical os, 4.6 cm. ??The current sonographic age is ??20 weeks and 2 days, based on the following measurements: BPD ? 4.7 cm (20 ??weeks,1 ??days) Head Circumference ? 17.3cm (19 weeks, 6 days) Abdominal Circumference ?15.3cm (20 ??weeks, 4 days) Femur Length ?3.4cm (20 weeks, 5 days) Presentation ? Variable ? Placenta ? Posterior Weight (g) by Percentile ??42.4 % * These measurements result in an estimated date of delivery of October 25, 2025. ? The current estimated weight is 360 ?? grams ( ??pound, 13 ??ounces). ?? Procedure Note Gil Godwin MD - 06/10/2025 FINDINGS: A single, live intrauterine is present with normal cardiacrate of 140 beats per minute. Normal activity and amniotic fluidvolume. Amniotic fluid index is cm. Morphology is grossly normal. TheThe placenta is posterior, inferior aspect 7.6 cm from the closedinternal cervical os, 4.6 cm. The current sonographic age is 20 weeksand 2 days, based on the following measurements: BPD 4.7 cm (20 weeks,1 days) Head Circumference 17.3cm (19 weeks, 6 days) Abdominal Circumference 15.3cm (20 weeks, 4 days) Femur Length 3.4cm (20 weeks, 5 days) Presentation Variable Placenta Posterior Weight (g) by Percentile 42.4 % * These measurements result in an estimated date of delivery of October. The current estimated weight is 360 grams ( pound, 13ounces). IMPRESSION: Single, live intrauterine , current sonographic age of 20 weeksand 2 days, with an estimated date of delivery of October 25, 2025. * Estimated Weight (g) by Percentile is based upon an accurateestimated age based on last menstrual period. TRANSCRIBED BY: ELECTRONICALLY SIGNED BY: Gil Godwin MD Authorizing ProviderResult TypeResult StatusCorey Nii FREITAS OB US PROCEDURES Final Result * HBSAG SCREEN (06/09/2025 10:54 AM EDT)ComponentValueRef RangeTest Method Analysis TimePerformed AtPathologist SignatureHBSAG SCREENNegativeNegativeTBH Comment: Performed at: ?? - [facility] [address] ??[id number] Sewer Pipe Sorter: Cheko Severino PhD, Phone: ??[phone] Specimen (Source)Anatomical Location / LateralityCollection Method / Volume Collection TimeReceived Time06/09/2025 10:54 AM EDT06/09/2025 10:56 AM EDT Narrative CLINISYNC - 06/10/2025 2:08 PM EDT Authorizing ProviderResult TypeResult StatusCoreector Bales DOL BLOOD ORDERABLES Final ResultPerforming OrganizationAddressCity/State/ZIP CodePhone Number CLINISYNC [facility] * RAPID PLASMA REAGIN, QUANT (06/09/2025 10:54 AM EDT)ComponentValueRef Range Test MethodAnalysis TimePerformed AtPathologist SignatureRAPID PLASMA REAGIN, QUANTNon ReactiveNonRea<1:1 titerTBHComment: Please Note: This test does not meet current guidelines for screening and diagnosis of syphilis. This test is intended for following treatment response in patients being treated for syphilis infection. To screen for syphilis infection, a reflex cascade that includes both RPR and a treponema-specific assay should be utilized, such as Treponema pallidum (Syphilis) Screening [place] (790038) or Rapid Plasma Reagin (RPR) Test With Reflex to Quantitative RPR and Confirmatory Treponema pallidum Antibodies (481942). Performed at: ??[address] ??[id number] Sewer Pipe Sorter: Cheko Severino PhD, Phone: ??[phone] Specimen (Source)Anatomical Location / LateralityCollection Method / Volume Collection TimeReceived Time06/09/2025 10:54 AM EDT06/09/2025 10:56 AM EDT Narrative CLINIS[facility]AK - 06/10/2025 2:08 PM EDT Authorizing ProviderResult TypeResult StatusCorey Nii DOLAB BLOOD ORDERABLES Final ResultPerforming OrganizationAddressCity/State/ZIP CodePhone Number [facility] * HIV AB/P24 AG WITH REFLEX (06/09/2025 10:54 AM EDT)ComponentValueRef RangeTest MethodAnalysis TimePerformed AtPathologist SignatureHIV AB/P24 AG SCREENNon ReactiveNon ReactiveTBHComment: HIV-1/HIV-2 antibodies and HIV-1 p24 antigen were NOT detected. There is no laboratory evidence of HIV infection. HIV Negative Performed at: ??[address] ??[id number] Sewer Pipe Sorter: Cheko Severino PhD, Phone: ??[phone] Specimen (Source)Anatomical Location / LateralityCollection Method / Volume Collection TimeReceived Time06/09/2025 10:54 AM EDT06/09/2025 10:56 AM EDT Narrative [facility] - 06/10/2025 6:09 AM EDT Authorizing ProviderResult TypeResult StatusCorey Nii DOLAB BLOOD ORDERABLES Final ResultPerforming OrganizationAddressCity/State/ZIP CodePhone Number [facility] * HCV ANTIBODY RFX TO QUANT PCR (06/09/2025 10:54 AM EDT)ComponentValueRef Range Test MethodAnalysis TimePerformed AtPathologist SignatureHCV ABNon ReactiveNon ReactiveTBHINTERPRETATION:Comment.TBHComment: Not infected with HCV unless early or acute infection is suspected (which may be delayed in an immunocompromised individual), or other evidence exists to indicate HCV infection. Specimen (Source)Anatomical Location / LateralityCollection Method / Volume Collection TimeReceived Time06/09/2025 10:54 AM EDT06/09/2025 10:56 AM EDT Narrative [facility] - 06/10/2025 6:09 AM EDT Authorizing ProviderResult TypeResult StatusCorey Nii SÁNCHEZ BLOOD ORDERABLES Final ResultPerforming OrganizationAddressCity/State/ZIP CodePhone Number [facility] * MLR HEMOGLOBIN A1C (06/09/2025 10:54 AM EDT)ComponentValueRef RangeTest Method Analysis TimePerformed AtPathologist SignatureGLYCOHEMOGLOBIN A1C4.74.5 - 6.2 %TBHComment: ADA RECOMMENDED LIMIT 4.0 - 6.0 ADA THERAPEUTIC TARGET < 7.0 ACTION SUGGESTED > 7.0 ESTIMATED AVERAGE ZLHSNWI08kh/dLTBHSpecimen (Source)Anatomical Location / LateralityCollection Method / VolumeCollection TimeReceived Time06/09/2025 10:54 AM EDT06/09/2025 10:56 AM EDT Narrative [facility] - 06/09/2025 11:10 AM EDT Authorizing ProviderResult TypeResult StatusCorey Nii DOCLINISYNCFinal Result Performing OrganizationAddressCity/State/ZIP CodePhone Number [facility] * ALL TYPE AND SCREEN (06/09/2025 10:54 AM EDT)ComponentValueRef RangeTest MethodAnalysis TimePerformed AtPathologist SignatureBLOOD TYPEA PositiveTBH ANTIBODY SCREENNEGATIVETBHSpecimen (Source)Anatomical Location / Laterality Collection Method / VolumeCollection TimeReceived Time06/09/2025 10:54 AM EDT 06/09/2025 10:56 AM EDT Narrative [facility] - 06/09/2025 12:35 PM EDT [facility] , ?? Authorizing ProviderResult TypeResult StatusCorey Nii DOCLINISYNCFinal Result Performing OrganizationAddressCity/State/ZIP CodePhone Number [facility] * ALL THYROID STIM HORMONE (06/09/2025 10:54 AM EDT)ComponentValueRef RangeTest MethodAnalysis TimePerformed AtPathologist SignatureTHYROID STIMULATING HORMONE2.4080.358 - 3.740 uIU/mLTBHSpecimen (Source)Anatomical Location / LateralityCollection Method / VolumeCollection TimeReceived Time06/09/2025 10:54 AM EDT06/09/2025 10:56 AM EDT Narrative CLIN[facility]YNC - 06/09/2025 11:32 AM EDT Authorizing ProviderResult TypeResult StatusCorey Nii DOCLINISYNCFinal Result Performing OrganizationAddressCity/State/ZIP CodePhone Number [facility] * ALL RUBELLA IGG AB (06/09/2025 10:54 AM EDT)ComponentValueRef RangeTest Method Analysis TimePerformed AtPathologist SignatureRUBELLA ANTIBODIES, IGG1.77 Immune >0.99 indexTBHComment: Non-immune <0.90 ?Equivocal ??0.90 - 0.99 Immune >0.99 Performed at: ?? - [facility] [address] ??[id number] Sewer Pipe Sorter: Cheko Severino PhD, Phone: ??[phone] Specimen (Source)Anatomical Location / LateralityCollection Method / Volume Collection TimeReceived Time06/09/2025 10:54 AM EDT06/09/2025 10:56 AM EDT Narrative [facility] - 06/10/2025 6:09 AM EDT Authorizing ProviderResult TypeResult StatusCorey Nii DOCLINISYNCFinal Result Performing OrganizationAddressty/State/ZIP CodePhone Number [facility] * (ABNORMAL) ALL CBC WITH AUTO DIFF (06/09/2025 10:54 AM EDT)ComponentValueRef RangeTest MethodAnalysis TimePerformed AtPathologist SignatureTBH WBC8.04.0 - 11.0 10 3/uLTBHTBH RBC3.34(L)4.20 - 5.40 10 6/uLTBHTBH HGB11.0(L)12.0 - 16.0 g/dLTBHTBH HCT32.2(L)36.0 - 48.0 %TBHTBH MCV96.481.0 - 99.0 fLTBHTBH MCH32.9 26.7 - 34.0 pgTBHTBH MCHC34.229.9 - 35.2 g/dLTBHTBH RDW13.211.0 - 15.0 %TBHTBH XGI038(L)150 - 450 10 3/uLTBHTBH MPV10.49.5 - 13.5 fLTBHNEUTROPHILS PERCENT AUTO78.4(H)43.0 - 75.0 %TBHLYMPHOCYTES PERCENT AUTO16.6(L)20.5 - 60.0 %TBH MONOCYTES PERCENT AUTO4.11.7 - 12.0 %TBHTBH EO %0.3(L)0.9 - 7.0 %TBHBASOPHILS PERCENT AUTO0.30.2 - 2.0 %TBHIMMATURE GRANULOCYTES PCT AUTO0.30.0 - 0.5 %TBH NEUTROPHILS ABSOLUTE AUTO6.31.4 - 6.5 10 3/uLTBHLYMPHOCYTES ABSOLUTE AUTO1.3 1.2 - 3.8 10 3/uLTBHMONOCYTES ABSOLUTE AUTO0.30.3 - 0.8 10 3/uLTBHTBH EO #0.0 0.0 - 0.7 10 3/uLTBHBASOPHILS ABSOLUTE AUTO0.00.0 - 0.1 10 3/uLTBHIMMATURE GRANULOCYTES ABS AUTO0.020.00 - 0.03 10 3/uLTBHSpecimen (Source)Anatomical Location / LateralityCollection Method / VolumeCollection TimeReceived Time 06/09/2025 10:54 AM EDT06/09/2025 10:56 AM EDT Narrative CLIN[facility]YNC - 06/09/2025 11:07 AM EDT Authorizing ProviderResult TypeResult StatusCorey Nii DOCLINISYNCFinal Result Performing OrganizationAddressCity/State/ZIP CodePhone Number [facility]INISYNC TB * (ABNORMAL) [facility] DRUG SCREEN RAPID (URINE) (06/09/2025 10:44 AM EDT)Component ValueRef RangeTest MethodAnalysis TimePerformed AtPathologist Signature CANNABINOID SCREEN URINEPOSITIVE(A)NEGATIVETBHPHENCYCLIDINE SCREEN URINE NEGATIVENEGATIVETBHCOCAINE SCREEN URINENEGATIVENEGATIVETBHMETHAMPHETAMINES SCREEN URINENEGATIVENEGATIVETBHOPIATE SCREEN URINENEGATIVENEGATIVETBH AMPHETAMINE SCREEN URINENEGATIVENEGATIVETBHBENZODIAZEPINES SCREEN URINE NEGATIVENEGATIVETBHTRICYCLIC ANTIDEPRESSANT URINENEGATIVENEGATIVETBHMETHADONE SCREEN URINENEGATIVENEGATIVETBHBARBITURATES SCREEN URINENEGATIVENEGATIVETBH OXYCODONE SCREEN URINENEGATIVENEGATIVETBHBUPRENORPHINE SCREEN URINENEGATIVE NEGATIVETBHComment: DRUG CLASS TEST SYSTEM CUT-OFF CONCENTRATIONS ARE FOLLOWS: AMP (Amphetamine): 500 ng/mL BAR (Barbiturates): 200 ng/mL BZO (Benzodiazepines): 150 ng/mL BUP (Buprenorphine): 10 ng/mL FELA (Cocaine): 150 ng/mL mAMP (Methamphetamine): 500 ng/mL MTD (Methadone): 200 ng/mL OPI (Opiates): 100 ng/mL OXY (Oxycodone): 100 ng/mL PCP (Phencyclidine): 25 ng/mL THC (Cannabinoids): 50 ng/mL TCA (Trycyclic Antidepressants): 300 ng/mL Specimen (Source)Anatomical Location / LateralityCollection Method / Volume Collection TimeReceived Time06/09/2025 10:44 AM EDT06/09/2025 10:56 AM EDT Narrative CLINISYNC - 06/09/2025 11:15 AM EDT Authorizing ProviderResult TypeResult StatusCorey Nii DOCLINISYNCFinal Result Performing OrganizationAddressCity/State/ZIP CodePhone Number [facility]IS[facility]NC [facility] * (ABNORMAL) CANNABINOID CONF, MS, UR (06/09/2025 10:44 AM EDT)ComponentValueRef RangeTest MethodAnalysis TimePerformed AtPathologist SignatureCANNABINOID Positive(A).TBHCARBOXY THC CONF, MS, TP917Jgsyes=49 ng/mLTBHComment: Performed at: ??UI - [facility] [address] [place], [place] ??[id number] Sewer Pipe Sorter: Shelby Mcmillan PhD, Phone: ??[phone] Specimen (Source)Anatomical Location / LateralityCollection Method / Volume Collection TimeReceived Time06/09/2025 10:44 AM EDT06/09/2025 11:16 AM EDT Narrative IVAN - 06/15/2025 6:08 PM EDT Authorizing ProviderResult TypeResult StatusCorey Nii DOLAB BLOOD ORDERABLES Final ResultPerforming OrganizationAddressCity/State/ZIP CodePhone Number IVAN H * RECURRENT VAGINITIS (HTRX) (05/25/2025 12:11 PM EDT)ComponentValueRef Range Test MethodAnalysis TimePerformed AtPathologist SignatureATOPOBIUM VAGINAE0 19.961 - 24.689 ppm05/26/2025 6:29 AM EDTHealthTrackRx at LabPortATOPOBIUM VAGINAENot Mlqnpfzl04.961 - 24.689 ppm05/26/2025 6:29 AM EDTHealthTrackRx at LabPortBVAB 2,3 (BACTERIAL VAGINOSIS ASSOCIATED BACTERIA 2, 3); MOBILUNCUS SPP 019.961 - 24.689 ppm05/26/2025 6:29 AM EDTHealthTrackRx at LabPortBVAB 2,3 (BACTERIAL VAGINOSIS ASSOCIATED BACTERIA 2, 3); MOBILUNCUS SPPNot Detected 19.961 - 24.689 ppm05/26/2025 6:29 AM EDTHealthTrackRx at LabPortCANDIDA ALBICANS, PARAPSILOSIS, CKSFVWALCL128.000 - 30.347 ppm05/26/2025 6:29 AM EDT [facility] LabPortCANDIDA ALBICANS, PARAPSILOSIS, TROPICALISNot Detected 23.000 - 30.347 ppm05/26/2025 6:29 AM EDTHealthTrackRx at LabPortCANDIDA PNOEHUEY617.000 - 31.618 ppm05/26/2025 6:29 AM EDTHealthTrackRx at [facility] SIRIA GLABRATANot Owefwulp01.000 - 31.618 ppm05/26/2025 6:29 AM EDT [facility] at LabPortCANDIDA GDQKGZ492.000 - 30.873 ppm05/26/2025 6:29 AM EDTHealthTrackRx at LabSt[facility] HospitalCANDIDA KRUSEINot Pmqofiwn87.000 - 30.873 ppm 05/26/2025 6:29 AM EDTHealthTrackRx at LabPortCHLAMYDIA NXVBGCUATKX856.000 - 31.586 ppm05/26/2025 6:29 AM EDTHealthTrackRx at LabSt. Catherine HospitalCHLAMYDIA TRACHOMATIS Not Butsavzj10.000 - 31.586 ppm05/26/2025 6:29 AM EDTHealthTrackRx at [facility] GARDNERELLA URYUDVTLY008.961 - 24.689 ppm05/26/2025 6:29 AM EDTHealthTrackRx at [facility]HealthGARDNERELLA VAGINALISNot Bwttacol66.961 - 24.689 ppm05/26/2025 6:29 AM EDTHealthTrackRx at LabSt. Catherine HospitalMEGASPHAERA (TYPES 1, 2)019.961 - 24.689 ppm 05/26/2025 6:29 AM EDTHealthTrackRx at LabSt. Catherine HospitalMEGASPHAERA (TYPES 1, 2)Not Fidcuxng26.961 - 24.689 ppm05/26/2025 6:29 AM EDTHealthTrackRx at [facility]St[facility] NEISSERIA VOZZUQNXNMN276.000 - 32.587 ppm05/26/2025 6:29 AM EDTHealthTrackRx at [facility]HealthNEISSERIA GONORRHOEAENot Eimcnuod14.000 - 32.587 ppm05/26/2025 6:29 AM EDTHealthTrackRx at LabPortTRICHOMONAS FFFTFYRLS292.000 - 31.995 ppm 05/26/2025 6:29 AM EDTHealthTrackRx at LabSt. Catherine HospitalTRICHOMONAS VAGINALISNot Bnxhsccb21.000 - 31.995 ppm05/26/2025 6:29 AM EDTHealthTrackRx at [facility] MYCOPLASMA XAVQWRZDLT407.961 - 24.689 ppm05/26/2025 6:29 AM EDTHealthTrackRx at PeaceHealthMYCOPLASMA GENITALIUMNot Czwtudsb58.961 - 24.689 ppm05/26/2025 6:29 AM EDTHealthTrackRx at LabSt. Catherine HospitalSpecimen (Source)Anatomical Location / LateralityCollection Method / VolumeCollection TimeReceived TimeTissue 05/25/2025 12:11 PM EDT05/26/2025 2:01 AM EDT Narrative Authorizing ProviderResult TypeResult StatusCorey Nii DOL BLOOD ORDERABLES Final ResultPerforming OrganizationAddressCity/State/ZIP CodePhone Number [facility] [address] [address] * IGP,APTIMA HPV,AGE GDLN (05/25/2025 10:00 AM EDT)ComponentValueRef RangeTest MethodAnalysis TimePerformed AtPathologist SignatureAGE GDLN ACOG TESTINGNote. TBHComment: ?? TESTS ? RESULT ??FLAG ??UNITS ?REF RANGE ??LAB ?? Clinician Provided Cytology Information ?? Source.............[employer] ?? Other.............. ?? No. of containers..01 ThinPrep Vial Age Algo ACOG Nancy... ??30-65 ? 01 ?FLAG LEGEND: ?L-Low Normal,H-High Normal,LL-Alert Low,HH-Alert High <-Panic Low,>-Panic High,A-Abnormal,AA-Critical Abnormal Performed at: 01 =G ?[facility] [address] [place] ??[id number] ?? Vikki Rivera MD, IGP, APTIMA HPV, RFX 16/18,45Note.TBHComment: ?? TESTS ? RESULT ??FLAG ??UNITS ?REF RANGE ??LAB DIAGNOSIS: ?02 ?? NEGATIVE FOR INTRAEPITHELIAL LESION OR MALIGNANCY. Specimen adequacy: ?02 ?? Satisfactory for evaluation. ??Endocervical and/or squamous metaplastic ?? cells (endocervical component) are present. Performed by: ? 02 ?? Deshawn Kirkpatrick Drier And Grinder Tender (ASCP) . ? 02 Note: ? Note ?02 ?? The Pap smear is a screening test designed to aid in the ?? detection of premalignant and malignant conditions of the ?? uterine cervix. ??It is not a diagnostic procedure and ?? should not be used as the sole means of detecting cervical ?? cancer. ??Both false-positive and false-negative reports do ?? occur. Test Methodology: ? Note ?02 ?? This liquid based ThinPrep(R) pap test was screened with ?? the use of an image guided system. HPV Genotype Reflex ?? Note ?02 ?? Criteria not met, HPV Genotype not performed. ?FLAG LEGEND: ?L-Low Normal,H-High Normal,LL-Alert Low,HH-Alert High <-Panic Low,>-Panic High,A-Abnormal,AA-Critical Abnormal Performed at: 02 WB ?[facility] ?? [address] [place], [place] ??[phone] ?? Vikki Rivera MD, HPV APTIMANegativeNegativeTBHComment: This nucleic acid amplification test detects fourteen high- risk HPV types (16,18,31,33,35,39,45,51,52,56,58,59,66,68) without differentiation. Performed at: ??=G - [facility] [address], [place] ??[id number] Sewer Pipe Sorter: Vikki Rivera MD, Phone: ??[phone] Performed at: ??WB - [facility] [address], [place] ??[id number] Sewer Pipe Sorter: Vikki Rivera MD, Phone: ??[phone] Specimen (Source)Anatomical Location / LateralityCollection Method / Volume Collection TimeReceived Time05/25/2025 10:00 AM EDT05/25/2025 12:02 PM EDT Narrative CLIN[facility] - 05/27/2025 2:11 PM EDT SPATULA-ALONE ENDOCERVIX Authorizing ProviderResult TypeResult StatusCorey Nii DOLAB BLOOD ORDERABLES Final ResultPerforming OrganizationAddressCity/State/ZIP CodePhone Number [facility]INIS[facility] * Pap Smear (05/25/2025 12:00 AM EDT)Specimen (Source)Anatomical Location / LateralityCollection Method / VolumeCollection TimeReceived TimeSwabCervical swab / Unknown Narrative Authorizing ProviderResult TypeResult StatusFazio Nurse Noms Bcp ObLAB CYTOLOGY ORDERABLESFinal ResultPerforming OrganizationAddressCity/State/ZIP CodePhone Number EXTERNAL LAB from Last 3 Months Additional Health Concerns Active ProblemsNoted DateDiagnosed DateOB Mepipejrn52/28/2023 Insurance Care Teams Team MemberRelationshipSpecialtyStart DateEnd Date Marco Bales DO [address] [place] [address] Dr [place], [place] [address] [facility]01/13/24
--- OUTSIDE RECORDS SUMMARY | 2025-08-23 10:13 | XMS_ITS | Encounter Summary ---
Author Organization [facility] Address [address] [place] [address] Care Team Providers Care Parts Sales Associate Name Role Phone Marco Bales DO Unavailable Encounter Details DateTypeDepartmentCare Team (Latest Contact Info)Lrxfzyfeiup06/27/2025amboo flowsheet NOMJovany DIETZ [address] [place] [address] Rosana Marcano PA [address] [facility] [address] [place], [facility]11 Social History Tobacco UseTypesPacks/DayYears UsedDateSmoking Tobacco: Never Assessed Estimated Date of BqpzhufsTwkimrslRzw69/10/2026Based on UltrasoundSex and Gender InformationValueDate RecordedSex Assigned at KxoqvLeavkr67/25/2023 4:28 PM EDT Legal TwlQoygiu33/15/2023 6:42 PM EDTGender IkzifpdyKnlotv41/25/2023 4:28 PM EDT Sexual KfrjxraqxjwZjfvpcit11/25/2023 4:28 PM EDTdocumented as of this encounter Plan of Treatment DateTypeDepartmentCare Team (Latest Contact Info)Menzodacdiw35/10/2025 10:30 AM ESTAncillary Procedure NOMJovany DIETZ [address] [place] [address] 08/23/2025 11:00 AM ESTRoutine NOMJovany DIETZ [address] [place] [address] Marco Bales DO [address] [place] [address] documented as of this encounter Goals GoalPatient Goal TypeAssociated ProblemsRecent ProgressPatient-Stated?Author Reminders Care PlanOB RemindersNoOpen Scheduling, Backgrounddocumented as of this encounter Visit Diagnoses Not on filedocumented in this encounter Additional Health Concerns Active ProblemsNoted DateDiagnosed DateOB Hnsiqogis35/28/2023 documented as of this encounter Care Teams Team MemberRelationshipSpecialtyStart DateEnd Date Marco Bales DO [address] [place] [address] PCP - [facility]01/13/24documented as of this encounter
--- OUTSIDE RECORDS SUMMARY | 2025-08-23 10:13 | XMS_ITS | Encounter Summary ---
Author Organization [facility] Address [address] [place] [address] Care Team Providers Care City Superintendent Name Role Phone Bria Bales DO Unavailable Encounter Details DateTypeDepartmentCare Team (Latest Contact Info)Qrnsuuzmclt33/23/2024linisync Result Encounter NOMS External Department Unsolicited Bria Bales DO [address] [place] [address] [place], [facility]11 Social History Tobacco UseTypesPacks/DayYears UsedDateSmoking Tobacco: Never Assessed CommentsYesSex and Gender InformationValueDate RecordedSex Assigned at Iaqlgk7208/07/2023 4:28 PM EDTLegal XxjVoabtu38/15/2023 6:42 PM EDTGender Identity Vuoxqc7608/07/2023 4:28 PM EDTSexual QaykuojxxhvGrgayoej97/25/2023 4:28 PM EDT documented as of this encounter Plan of Treatment DateTypeDepartmentCare Team (Latest Contact Info)Sjvdwmmovoe35/10/2025 10:30 AM ESTAncillary Procedure [facility] Kandace DIETZ [address] [place] [address] 08/23/2025 11:00 AM ESTRoutine NOMS Kandace DIETZ [address] [place] [address] Bria Bales DO [address] [place] [address] documented as of this encounter Goals GoalPatient Goal TypeAssociated ProblemsRecent ProgressPatient-Stated?Author Reminders Care PlanOB RemindersNoOpen Scheduling, Backgrounddocumented as of this encounter Procedures Procedure NamePriorityDate/TimeAssociated DiagnosisCommentsUS OB GROWTH 02/04/2024 7:36 AM EDT documented in this encounter Results * US OB GROWTH (02/04/2024 7:36 AM EDT)Anatomical RegionLateralityModalityOther Specimen (Source)Anatomical Location / LateralityCollection Method / Volume Collection TimeReceived Time02/04/2024 7:36 AM EDT Narrative 02/04/2024 7:39 AM EDT [facility] ?[address] ? [place] [address] ? Ultrasound Report ? Signed ? Patient: ЕКАТЕРИНА SWEENEY ?MR#: [id number] ?? : 1995 ?Acct:[id number] ?? Age/Sex: 28 / F ?ADM Date: 02/03/24 ?? Loc: US ? Attending Dr: Bria Bales D.O. ? Ordering Physician: Bria Bales D.O. ?? Date of Service: 02/03/24 ?? Procedure(s): US OB growth ?? Accession Number(s): [id number] ? cc: Bria Bales D.O.; Physician,Non-Staff M.D. ? [facility] ? [address] [facility] ? [place] [address] ? Patient Name: ?? ЕКАТЕРИНА SWEENEY ? MRN: [id number] ? date: 1995 ?Sex: F ?? Assigned Patient Location: [facility]BC ?? Current Patient Location: US ?? Accession/Order Number: [id number] ?? Exam Date: 02/03/2024 ??14:20 ?Report Date: 02/04/2024 ??07:36 ? At the request of: ?? BRIA ??NII ? Procedure: ??US OB growth ? EXAMINATION: US OB growth ? HISTORY: HISTORY OF OLIGOHYDRAMINOS Z87.59 ? COMPARISON: No relevant comparison available. ? FINDINGS: ? Heart Rate: 135.0 bpm ?? Amniotic Fluid Volume: 24.5 cm ?? Number: 1.0 ?? Position: CEPHALIC ?? Maximum Vertical Pocket: ?? 4.3 cm cm ?? 7.1 cm cm ?? 6.6 cm cm ?? 6.4 cm cm ? BIOMETRY: ?? BPD: 8.8 cm cm; 35 weeks 5 days; 51% ?? HC: 32.7 cmcm; 37 weeks 1 days , 47% ?? AC: 32.7 cm cm; 36 weeks 4 days, 77% ?? FL: 6.6 cm cm; 34 weeks 1 days; 8.1 % % ?? EFW: 2813.1 grams, 6 lbs. 3 oz., 50% ?? FL/AC: 20.3 ?? FL/BPD: 75.1 ?? HC/AC: 1.0 ? GESTATIONAL AGE: ?? Age by EDC: 36 weeks 0 days ?? GOOD by EDC: 03/02/2024 ?? Age by US: 35 weeks 6 days ?? GOOD by US: 03/03/2024 ? US/US OB growth ?? IMPRESSION: ? Normal interval growth ? Electronically authenticated by: ALFA ??ILEANA ?? Date: 02/04/2024 ??07:36 ? Dictated By: ?Alfa Tejeda M.D. ? Signed By: ?04/23/24 0739 ? DD/ 0736 ? TD/TT: ? Bench Molder: Procedure Note Radiology, Radiologist, MD - 02/04/2024 [place] [address] Ultrasound Report Signed Patient: ЕКАТЕРИНА SWEENEY RMR#: [id number] : 1995Acct:[id number] Age/Sex: 28 / FADM Date: 02/03/24 Loc: US Attending Dr: Bria Bales D.O. Ordering Physician: Bria Bales D.O. Date of Service: 02/03/24 Procedure(s): US OB growth Accession Number(s): [id number] cc: Bria Bales D.O.; Physician,Non-Staff M.Nancy The [address] [address] Patient Name: ЕКАТЕРИНА SWEENEY MRN: [id number] date: 1995 Sex: F Assigned Patient Location: [facility] Current Patient Location: US Accession/Order Number: [id number] Exam Date: 02/03/2024 14:20 Report Date: 02/04/2024 [...] Alfa Tejeda M.D. Signed By:02/04/24 0739 DD/ TD/TT: Bench Molder: Authorizing ProviderResult TypeResult StatusCorey Nii DOCLINISYNC IMAGINGFinal Result documented in this encounter Visit Diagnoses Not on filedocumented in this encounter Additional Health Concerns Active ProblemsNoted DateDiagnosed DateOB Msxxjzrsu08/28/2023 documented as of this encounter Care Teams Team MemberRelationshipSpecialtyStart DateEnd Date Bria Bales DO [address] [place] [address] [place] [address] PCP - [facility]01/13/24documented as of this encounter
--- OUTSIDE RECORDS SUMMARY | 2025-08-23 10:13 | XMS_ITS | Clinical Summary ---
Author Organization [email or web address] tem Address [id number] [address] [place] [address] Care Team Providers Care Testing Lead Name Role Phone No Pcp, No Pcp Primary Care Provider Unavailabl e Allergies No known active allergies Medications MedicationSigDispense QuantityRefillsLast FilledStart DateEnd DateStatus levothyroxine (SYNTHROID, LEVOTHROID) 100 MCG tablet Take 1 tablet (100 mcg total) by mouth in the morning.Active ondansetron ODT (ZOFRAN ODT) 4 mg disintegrating tablet Dissolve 1 tablet (4 mg total) on tongue every 6 (six) hours as needed for nausea or vomiting.Active vit no.516-jcly-eggzh acid ( VITAMIN) 27 mg iron- 800 mcg tablet Take 1 tablet by mouth in the morning.Active progesterone (FIRST-PROGESTERONE VGS) 200 mg suppository Insert 1 suppository (200 mg total) into the vagina nightly.Active Social History Tobacco UseTypesPacks/DayYears UsedDateSmoking Tobacco: Every DayCigarettes Smokeless Tobacco: Never Tobacco Cessation:Ready to Q uit: Not Asked; Counseling Given: Not Answered Alcohol UseStandard Drinks/WeekCommentsNot Currently0 (1 standard drink = 0.6 oz pure alcohol)ChildcareAnswerDate QclgfuguQrqqxwljvVycujtx76/10/2019Employment AnswerDate BtigarxwUmiyihvhvbRofljgt96/10/2019Hunger ScreeningAnswerDate RecordedWithin the past 12 months we worried whether our food would run out before we got money to buy more.Never True10/16/2023Within the past 12 months the food we bought just didn't last and we didn't have money to get more.Never True10/16/2023CommentsNoSex and Gender InformationValueDate RecordedSex Assigned at BirthNot on fileLegal OjxWxcoki86/04/2015 12:11 PM EDTGender IdentityNot on fileSexual OrientationNot on file Last Filed Vital Signs Vital SignReadingTime TakenCommentsBlood Bhbewchw307/66010/16/2023 12:21 PM EST Wysxs230010/16/2023 12:21 PM ESTTemperature--Respiratory Rate--Oxygen Saturation-- Inhaled Oxygen Concentration--Hmvzql39.3 kg (144 lb)10/16/2023 12:21 PM EST Pfuois547.2 cm (5' 7 )10/16/2023 12:21 PM ESTBody Mass Index22.55010/16/2023 12:21 PM EST Plan of Treatment Health MaintenanceDue DateLast DoneCommentsDepression Oxskgemlf43/18/2005Pap Smear2014dult BMI Reiucbghi84Tobacco Screening Influenza Medxxsk5006/14/2025DTaP,Tdap and Td Vaccines (9 - Td or Tdap), 03/12/2012, 10/11/2005, Additional history exists Medical Devices Not on file Insurance Care Teams Team MemberRelationshipSpecialtyStart DateEnd Date No [place], [place] [address] PCP - [facility]10/29/23
--- OUTSIDE RECORDS SUMMARY | 2025-08-23 10:13 | XMS_ITS | Encounter Summary ---
Author Organization [facility] Address [address] [place] [address] Care Team Providers Care Medical Lab Assistant Name Role Phone Bria Bales DO Unavailable Encounter Details DateTypeDepartmentCare Team (Latest Contact Info)Pxkepjgkmyg10/11/2024linisync Result Encounter NOMS External Department Unsolicited Bria Bales DO [address] [place], [facility]11 Social History Tobacco UseTypesPacks/DayYears UsedDateSmoking Tobacco: Never Assessed CommentsYesSex and Gender InformationValueDate RecordedSex Assigned at Wrqiie3708/07/2023 4:28 PM EDTLegal NruPwtpbw49/15/2023 6:42 PM EDTGender Identity Axgwkk2308/07/2023 4:28 PM EDTSexual JtyttpukwqzEaszjeqg82/25/2023 4:28 PM EDT documented as of this encounter Plan of Treatment DateTypeDepartmentCare Team (Latest Contact Info)Yqotxsttslm46/10/2025 10:30 AM ESTAncillary Procedure NOMS Kandace DIETZ [address] [address] 08/23/2025 11:00 AM ESTRoutine NOMS Kandace DIETZ [address] [facility] [place] [address] Bria Bales DO [address] [place] [address] documented as of this encounter Goals GoalPatient Goal TypeAssociated ProblemsRecent ProgressPatient-Stated?Author Reminders Care PlanOB RemindersNoOpen Scheduling, Backgrounddocumented as of this encounter Procedures Procedure NamePriorityDate/TimeAssociated DiagnosisCommentsUS OB BPP W NON-WRQRLA3812/23/2023 2:58 PM EDT documented in this encounter Results * US OB BPP W NON-STRESS (12/23/2023 2:58 PM EDT)Anatomical Region LateralityModalityOtherSpecimen (Source)Anatomical Location / Laterality Collection Method / VolumeCollection TimeReceived Time12/23/2023 2:58 PM EDT Narrative 12/23/2023 3:01 PM EDT [facility] ?[address] ? [place] [address] ? Ultrasound Report ? Signed ? Patient: ЕКАТЕРНИА SWEENEY ?MR#: [id number] ?? : 1995 ?Acct:[id number] ?? Age/Sex: 28 / F ?ADM Date: 12/23/23 ?? Loc: FBC ??250-1 ? Attending Dr: Bria Bales D.O. ? Ordering Physician: Bria Bales D.O. ?? Date of Service: 12/23/23 ?? Procedure(s): US OB BPP w non-stress ?? Accession Number(s): [id number] ? cc: Bria Bales D.O.; Physician,Non-Staff M.D. ? [facility] ? [address] ? [place] [address] ? Patient Name: ?? ЕКАТЕРИНА SWEENEY ? MRN: [facility]:[id number] ? date: 1995 ?Sex: F ?? Assigned Patient Location: FBC ?? Current Patient Location: [facility]BC ?? Accession/Order Number: [id number] ?? Exam Date: 12/23/2023 ??14:15 ?Report Date: 12/23/2023 ??14:58 ? At the request of: ?? BRIA ??NII ? Procedure: ??US OB BPP w non-stress ? EXAMINATION: US OB BPP w non-stress ? HISTORY: History of miscarriage Z87.59, History of oligohydramnios ? COMPARISON: 12/16/2023 ? TECHNIQUE: Ultrasound biophysical profile was performed in the radiology ?? department. ? FINDINGS: ?? BREATHING MOVEMENTS: 2.0 ?? GROSS BODY MOVEMENTS: 2.0 ?? TONE: 2.0 ?? QUALITATIVE AMNIOTIC FLUID VOLUME: 2.0 ? PRESENTATION: CEPHALIC ?? HEART RATE: 142.9 bpm H.B./min ?? AMNIOTIC FLUID VOLUME: 18.1 cm cm ?? GESTATIONAL AGE: 30 weeks 0 days ? CONCLUSION: ? Total biophysical profile score: 8.0 ? Electronically authenticated by: ALFA ??ILEANA ?? Date: 12/23/2023 ??14:58 ? Dictated By: ?Alfa Tejeda M.D. ? Signed By: ?03/24 1501 ? DD/ 1458 ? TD/TT: ? Heavy Machinery Assembler: Procedure Note Radiology, Radiologist, MD - 12/23/2023 [place] [address] Ultrasound Report Signed Patient: ЕКАТЕРИНА SWEENEY RMR#: [id number] : 1995Acct:[id number] Age/Sex: 28 / FADM Date: 12/23/23 Loc: [facility] 250-[address]: Brai Bales D.O. Ordering Physician: Bria Bales D.O. Date of Service: 12/23/23 Procedure(s): US OB BPP w non-stress Accession Number(s): [id number] cc: Bria Bales D.O.; Physician,Non-Staff M.DTammie The [place] [id number] Patient Name: ЕКАТЕРИНА SWEENEY MRN: [facility]:[id number] date: 1995 Sex: F Assigned Patient Location: [facility] Current Patient Location: [facility] Accession/Order Number: [id number] Exam Date: 12/23/2023 14:15 Report Date: 12/23/2023 [...] M.D. Signed By:12/23/23 1501 DD/ 1458 TD/TT: Heavy Machinery Assembler: Authorizing ProviderResult TypeResult StatusCorey Nii DOCLINISYNC IMAGINGFinal Result documented in this encounter Visit Diagnoses Not on filedocumented in this encounter Additional Health Concerns Active ProblemsNoted DateDiagnosed DateOB Zfsacwpnx39/28/2023 documented as of this encounter Care Teams Team MemberRelationshipSpecialtyStart DateEnd Date Bria Bales DO [address] [facility] [place] [address] PCP - [facility]01/13/24documented as of this encounter
--- OUTSIDE RECORDS SUMMARY | 2025-08-23 10:13 | XMS_ITS | Encounter Summary ---
Author Organization [facility] Address [address] [place] [address] Care Team Providers Care Riding Silks Custodian Name Role Phone Bria Bales DO Unavailable Encounter Details DateTypeDepartmentCare Team (Latest Contact Info)Kxfjneynjza32/04/2024linisync Result Encounter [facility]S External Department Unsolicited Bria Bales DO [address] [place] [address], [facility]11 Social History Tobacco UseTypesPacks/DayYears UsedDateSmoking Tobacco: Never Assessed CommentsYesSex and Gender InformationValueDate RecordedSex Assigned at Zvzzvr3708/07/2023 4:28 PM EDTLegal HpyQnlger07/15/2023 6:42 PM EDTGender Identity Awhbdh1608/07/2023 4:28 PM EDTSexual PlgyqkiuvjhTbpvxhot12/25/2023 4:28 PM EDT documented as of this encounter Plan of Treatment DateTypeDepartmentCare Team (Latest Contact Info)Rrichrpagot85/10/2025 10:30 AM ESTAncillary Procedure [facility]OMS Kandace DIETZ [address] [place] [address] 08/23/2025 11:00 AM ESTRoutine [facility] Kandace DIETZ [address] [place] [address] Bria Bales DO [address] [place] [address] documented as of this encounter Goals GoalPatient Goal TypeAssociated ProblemsRecent ProgressPatient-Stated?Author Reminders Care PlanOB RemindersNoOpen Scheduling, Backgrounddocumented as of this encounter Procedures Procedure NamePriorityDate/TimeAssociated DiagnosisCommentsUS OB BPP W NON-VFIEAQ3612/16/2023 2:30 PM EST documented in this encounter Results * US OB BPP W NON-STRESS (12/16/2023 2:30 PM EST)Anatomical Region LateralityModalityOtherSpecimen (Source)Anatomical Location / Laterality Collection Method / VolumeCollection TimeReceived Time12/16/2023 2:30 PM EST Narrative 12/16/2023 2:32 PM EST [facility] ?[address] ? [place] [id number] ? Ultrasound Report ? Signed ? Patient: ЕКАТЕРИНА SWEENEY ?MR#: [id number] ?? : 1995 ?Acct:[id number] ?? Age/Sex: 28 / F ?ADM Date: 12/16/23 ?? Loc: FBC ??250-1 ? Attending Dr: Bria Bales D.O. ? Ordering Physician: Bria Bales D.O. ?? Date of Service: 12/16/23 ?? Procedure(s): US OB BPP w non-stress ?? Accession Number(s): [id number] ? cc: Bria Bales D.O.; Physician,Non-Staff M.D. ? [facility] ? [facility] ? [place] [address] ? Patient Name: ?? ЕКАТЕРИНА SWEENEY ? MRN: [facility]:[id number] ? date: 1995 ?Sex: F ?? Assigned Patient Location: FBC ?? Current Patient Location: FBC ?? Accession/Order Number: [id number] ?? Exam Date: 12/16/2023 ??14:05 ?Report Date: 12/16/2023 ??14:30 ? At the request of: ?? BRIA ??NII ? Procedure: ??US OB BPP w non-stress ? EXAMINATION: US OB BPP w non-stress ? HISTORY: HISTORY OF MISCARRIAGE Z87.59 ? COMPARISON: No relevant comparison available. ? TECHNIQUE: Ultrasound biophysical profile was performed in the radiology ?? department. non-reactive stress testing was performed by nursing staff ?? in ?? the birthing center. ? FINDINGS: ?? BREATHING MOVEMENTS: 2.0 ?? GROSS BODY MOVEMENTS: 2.0 ?? TONE: 2.0 ?? QUALITATIVE AMNIOTIC FLUID VOLUME: 2.0 ? PRESENTATION: BREECH ?? HEART RATE: 147.5 bpm H.B./min ?? AMNIOTIC FLUID VOLUME: 18.5 cm cm ?? GESTATIONAL AGE: 29 weeks 0 days ? CONCLUSION: ? Total biophysical profile score: 8.0 ? Electronically authenticated by: ALFA ??ILEANA ?? Date: 12/16/2023 ??14:30 ? Dictated By: ?Alfa Tejeda M.D. ? Signed By: ?12/16/23 1432 ? DD/ 1430 ? TD/TT: ? Oil Expeller: Procedure Note Radiology, Radiologist, - 12/18/2023 [place] [address] Ultrasound Report Signed Patient: ЕКАТЕРИНА SWEENEY RMR#: [id number] : 1995Acct:[id number] Age/Sex: 28 / FADM Date: 12/16/23 Loc: [facility] 250-[address]: Bria Bales D.O. Ordering Physician: Bria Bales D.O. Date of Service: 12/16/23 Procedure(s): US OB BPP w non-stress Accession Number(s): [id number] cc: Bria Bales D.O.; Physician,Non-Staff M.Nancy The [place] [id number] Patient Name: ЕКАТЕРИНА SWEENEY MRN: [id number] date: 1995 Sex: F Assigned Patient Location: [facility] Current Patient Location: [facility] Accession/Order Number: [id number] Exam Date: 12/16/2023 14:05 Report Date: 12/16/2023 [...] Dictated By: Alfa Tejeda M.D. Signed By:12/16/23 143 DD/ 29 TD/TT: Oil Expeller: Authorizing ProviderResult TypeResult StatusCorey Nii DOCLINISYNC IMAGINGFinal Result documented in this encounter Visit Diagnoses Not on filedocumented in this encounter Additional Health Concerns Active ProblemsNoted DateDiagnosed DateOB Ttpomftte39/28/2023 documented as of this encounter Care Teams Team MemberRelationshipSpecialtyStart DateEnd Date Bria Bales DO [address] [place] [address] [place] [address] PCP - [facility]01/13/24documented as of this encounter
--- OUTSIDE RECORDS SUMMARY | 2025-08-23 10:18 | XMS_ITS | CCD ---
Author Organization [facility] CliniSymi Care Team Providers Care Java Development Manager Name Role Phone RUSSELL, DR DEBBIE Mohan [...] NII ., DR FRASER Primary Care Unavailable KRYS ., ROSANA Attending Unavailable KRYS ., ROSANA Admitting Unavailable KRYS ., ROSANA Consulting Unavailable DIAB ., JOANN [...] DR MARIS Vail Primary Care Unavailable NII, MARCO R Referring Unavailable HASEEB NICE Attending Unavailable NII, MARCO R Referring Unavailable NII, MARCO R Referring Unavailable NO PCP, NO PCP Primary Care Unavailable NII, MARCO R Referring Unavailable NO PCP, NO PCP Primary Care Unavailable Unavailable Primary Care Provider Unavailabl e Unavailable Primary Care Provider Unavailabl e Nii DO, Amrco Unavailable Nii DO, Marco Unavailable NII, MARCO Attending Unavailable NII, MARCO Referring Unavailable NII, MARCO Attending Unavailable DREW SOLORIO Attending Unavailable ROSANA MARCANO Attending Unavailable Medications Current Medications MedicationDrug Class(es)DatesSig (Normalized)Sig (Original)citalopram 20 mg oral tablet (5 sources)Serotonin Reuptake InhibitorStart: 07-21-2025 End: 78-02-1270pkgl 1 tablet by mouth once dailycitalopram (CeleXA) 20 MG tablet Indications: Depression affecting (HCC) Take 1 tablet (20 mg) by mouth Daily 30 tablet 5 07/21/2025 01/17/2026 Activelevothyroxine sodium 0.1 mg oral tablet (20 sources)l-ThyroxineStart: 34-04-5012xgda 1 tablet by mouth once daily levothyroxine (Synthroid, Levoxyl) 100 MCG tablet Indications: Thyroid disease TAKE 1 TABLET (100 MCG) BY MOUTH 1 (ONE) TIME EACH DAY AT THE SAME TIME 30 tablet 5 04/15/2025 ActiveStart: 10-08-2023 End: 06-91-7249tekp 1 tablet by mouth once dailylevothyroxine (Synthroid, Levoxyl) 100 MCG tablet Indications: Thyroid disease Take 1 tablet (100 mcg) by mouth 1 (one) time each day at the same time 30 tablet 5 10/08/2023 09/24/2024 Discontinuednorethindrone 0.35 mg oral tablet (1 source)Start: 04-22-2024 End: 88-20-7777nmop 1 tablet by mouth once dailynorethindrone (Micronor) 0.35 MG tablet Indications: Uses control Take 1 tablet (0.35 mg) by mouth Daily 28 tablet 11 04/22/2024 05/14/2025 Discontinued (Other)omeprazole 20 mg delayed release oral capsule (6 sources)Proton Pump InhibitorStart: 01-27-2024 End: 15-59-5799gsmd 2 capsules by mouth before mealtimeomeprazole (PriLOSEC) [address] capsule Indications: Heartburn TAKE 2 CAPSULES (40 MG) BY MOUTH IN THE MORNING. TAKE BEFORE MEALS. DO NOT CRUSH OR CHEW.. 180 capsule 3 04/24/2024 05/14/2025 Discontinued (Other)Start: 10-08-2023 End: 44-43-9704asvo 1 capsule by mouth before mealtimeomeprazole (PriLOSEC) [address] capsule Indications: Heartburn Take 1 capsule (20 mg) by mouth in the morning. Take before meals. Do not crush or chew.. 30 capsule 11 10/08/2023 01/27/2024 Discontinued (Reorder)ondansetron 4 mg disintegrating oral tablet (17 sources)Serotonin-3 Receptor AntagonistStart: 05-14-2025 End: 72-25-6778mkzc 1 tablet by mouth every six hours for nauseaondansetron ODT (Zofran-ODT) 4 MG disintegrating tablet Indications: Nausea and vomiting in ([facility]) Take 1 tablet (4 mg) by mouth every 6 (six) hours if needed for nausea or vomiting 30 tablet 2 05/14/2025 06/13/2025 Active End: 88-06-5168wcaz 1 tablet by mouth every six hours as neededondansetron ODT (Zofran-ODT) 4 MG disintegrating tablet Take 4 mg by mouth every 6 (six) hours if needed 04/02/2024 Discontinuedprenatal vit no.015-cghv-qywzz acid ( VITAMIN) 27 mg iron- 800 mcg tablet (7 sources)take 1 tablet by mouth in the morningprenatal vit no.718-ovjb-gouts acid ( VITAMIN) 27 mg iron- 800 mcg tablet Take 1 tablet by mouth in the morning. 0 ActivePrenatal Vit-Fe Fumarate-FA (M- Plus) 27-1 MG tablet (16 sources)Start: 47-63-8375glpk 1 tablet by mouth once daily in the morning Vit-Fe Fumarate-FA (M- Plus) 27-1 MG tablet Indications: Missed menses TAKE 1 TABLET BY MOUTH EVERY DAY IN THE MORNING 30 tablet 11 01/25/2025 Activeprogesterone (FIRST-PROGESTERONE VGS) 200 mg suppository (7 sources)progesterone (FIRST-PROGESTERONE VGS) 200 mg suppository Insert 1 suppository (200 mg total) into the vagina nightly. 0 Active Completed/Discontinued Medications MedicationDrug Class(es)DatesSig (Normalized)Sig (Original)ferrous sulfate (3 sources) End: 62-67-7144coqu 1 tablet by mouth in the morningFerrous Sulfate (IRON PO) Take 1 tablet by mouth in the morning. 04/02/2024 Discontinuedmetoclopramide 10 mg oral tablet (1 source)Dopamine-2 Receptor AntagonistStart: 01-28-2024 End: 49-77-5725fqxn 1 tablet by mouth in the morning, then take 1 tablet by mouth in the evening, then take 1 tablet by mouth at bedtimemetoclopramide (Reglan) 10 MG tablet Indications: Heartburn during in third trimester (HHS-HCC) Take 1 tablet (10 mg) by mouth in the morning and 1 tablet (10 mg) in the evening and 1 tablet (10 mg) before bedtime. 90 tablet 2 01/28/2024 04/02/2024 DiscontinuedPrenatal Vit-Fe Fumarate-FA ( Plus/Iron) 27-1 MG tablet (5 sources)Start: 10-08-2023 End: 97-75-2893akzs 1 tablet by mouth in the morningPrenatal Vit-Fe Fumarate-FA ( Plus/Iron) 27-1 MG tablet Indications: Missed menses Take 1 tablet by mouth in the morning. 30 tablet 11 10/08/2023 08/27/2024 DiscontinuedStart: 10-08-2023 End: 46-98-2609ssqo 1 tablet by mouth in the morningPrenatal Vit-Fe Fumarate-FA ( Plus/Iron) 27-1 MG tablet Indications: Missed menses Take 1 tablet by mouth in the morning. 30 tablet 11 10/08/2023 10/07/2024 Active Problems Active Problems Problem ClassificationProblemDateDocumented DateEpisodic/ChronicAnxiety disorders (20 sources)Generalized anxiety disorder; Translations: [Generalized anxiety disorder]Onset: 708247-56-9294ThhpbaoClhskrlki hypertension (1 source)Essential (primary) hypertension; Translations: [ESSENTIAL PRIMARY HYPERTENSION]Onset: 11-69-1456ZrbsgnkEjqcpjdqnc during ; abruptio placenta; placenta previa (7 sources)Threatened ; Translations: [Hemorrhage in early , unspecified]Onset: 81-67-6603UnpnipzwEnhjvpqiuwhwx and screening for infectious disease (3 sources)Encounter for immunization; Translations: [Exposure to sexually transmissible disorder]Onset: 283763-54-6803IpvkyvvrEazndhuptj disorders (1 source)Hormone replacement therapy; Translations: [HORMONE REPLACEMENT THERAPY]Onset: 38-46-6217NaumiuvjGzcsggngh disorders (5 sources)Irregular menstruation, unspecified; Translations: [Missed period] Onset: 12-11-1473IvjmcckHqhzf aftercare (1 source)Other supervisor speech (current) drug therapy; Translations: [OTH MATERIALS MANAGER CURRENT DRUG THERAPY]Onset: 49-42-3970OfedjbpxGycis complications of ; puerperium affecting management of mother (1 source)Endocrine, nutritional and metabolic diseases complicating childbirth; Translations: [ENDOCRN NUTR MET DZ COMP CHILDBIRTH]Onset: 84-78-4767Ogtkdjbm Other complications of (1 source)Endocrine, nutritional and metabolic diseases complicating , first trimester; Translations: [ENDOCRN NUTR MET DZ COMP PG 1ST TRI]Onset: 70-01-4680CigsnijnOttpi complications of (1 source)Smoking (tobacco) complicating , first trimester; Translations: [SMOKING TOBACCO COMP XWXX4YC TRI]Onset: 08-18-7508BrjioorfJqqtl complications of (1 source)Other viral diseases complicating , first trimester; Translations: [OTH VIRAL DZ COMP PREGFIRST TRI]Onset: 13-17-4021McfyxvgbZdyou complications of (2 sources) care for patient with recurrent loss, unspecified trimester; Translations: [ care for patient with recurrent loss, unspecified trimester]Onset: 78-94-7264MihbdfbdHfqkf complications of (1 source)Supervision of high risk , unspecified, second trimester; Translations: [Supervision of high risk , unspecified, second trimester]Onset: 41-23-0156DmkasfqcKrsdu complications of (2 sources)Supervision of with other poor reproductive or obstetric history, unspecified trimester; Translations: [Supervision of with other poor reproductive or obstetric history, unspecified trimester]Onset: 94-52-8639VioalpkaSoycu complications of (2 sources)Endocrine, nutritional and metabolic diseases complicating , second trimester; Translations: [Endocrine, nutritional and metabolic diseases complicating , second trimester]Onset: 55-28-2251VfnmaahiPkibc complications of (1 source)Supervision of other high risk pregnancies, unspecified trimester; Translations: [Supervision of other high risk pregnancies, unspecified trimester]Onset: 64-07-9792LlaasminCckme complications of (1 source)Vomiting of , unspecified; Translations: [Unspecified vomiting of , unspecified as to episode of care or not applicable] 73-49-2019XkipeheyHnjqh complications of (2 sources)Depressive disorder in mother complicating ; Translations: [Other mental disorders complicating , unspecified trimester]07-21-2025 EpisodicOther complications of (2 sources) size does not accord with dates; Translations: [Uterine size- date discrepancy, unspecified trimester]08-33-3043EqmkeglrLncuj female genital disorders (2 sources)Vaginal discharge; Translations: [Other specified noninflammatory disorders of vagina]09-21-1537FxmrjhrrEnmiv and delivery including normal (16 sources)Encounter for supervision of normal , unspecified, first trimester; Translations: [Second trimester ]Onset: EpisodicOther screening for suspected conditions (not mental disorders or infectious disease) (10 sources)Encounter for other specified screening; Translations: [Encounter for screeningfor cervical length]Onset: 10-16-2023 78-29-5013RhiopagjTqbligwo codes; unclassified (1 source)Less than 8 weeks gestation of ; Translations: [< 8 WEEKS GESTATION ]Onset: 49-49-4219BbyacsywVybvfzvc codes; unclassified (1 source)20 weeks gestation of ; Translations: [20 weeks gestation of ]Onset: 53-80-1823NkikzolrGogznbwm codes; unclassified (4 sources)H/O: miscarriage; Translations: [Personal history of other complications of , childbirth and the puerperium]52-72-9149Hdretfyr Residual codes; unclassified (2 sources)Gestation period, 18 weeks; Translations: [18 weeks gestation of ]46-54-3927QxosxqnaKfkivhnn codes; unclassified (2 sources)Gestation period, 22 weeks; Translations: [22 weeks gestation of ]84-35-6659OrlnmiilIxbugdto codes; unclassified (2 sources)Gestation period, 26 weeks; Translations: [26 weeks gestation of ]87-19-0724QhuurqcpEuouevpw codes; unclassified (2 sources)Gestation period, 29 weeks; Translations: [29 weeks gestation of ]12-55-2743EvrixcbnIovyamcyg-related disorders (1 source)Nicotine dependence, cigarettes, uncomplicated; Translations: [NICOTINE DEPEND CIGARETTES UNCOMP]Onset: 82-98-4401JzfgqrtUddbfbu disorders (12 sources)Hypothyroidism, unspecified; Translations: [Hypothyroidism]Onset: 15-41-2002WgsphcqLzyqbfmywpen (1 source)PERSONAL HISTORY OF COVID-19; Translations: [PERSONAL HISTORY OF COVID-19]Onset: 35-77-7502Rdaizwjocnhb (2 sources)COUGH, UNSPECIFIED; Translations: [COUGH, UNSPECIFIED]Onset: 45-00-5970Jmjwsgxhichp (1 source)Hx OligoOnset: 50-97-6020Etsngxwfhjxs (20 sources)OB RemindersOnset: 714570-86-3371Vzrfj infection (1 source)COVID-19; Translations: [COVID-19]Onset: 01-09-2023 Past or Other Problems Problem ClassificationProblemDateDocumented DateEpisodic/ChronicE Codes: Fall (1 source)Unspecified fall, initial encounter; Translations: [UNSPECIFIED FALL INITIAL ENCOUNTER]Onset: 02-32-3450UcabqecdKrjevxgbpfyrfcfe hemorrhage (20 sources)Rectal hemorrhage; Translations: [Hemorrhage of anus and rectum] Onset: 261275-03-9732GjcbxjmuPotdcppirwhv; infection of eye (except that caused by tuberculosis or sexually transmitteddisease) (1 source)Unspecified conjunctivitis; Translations: [UNSPECIFIED CONJUNCTIVITIS] Onset: 88-03-8389XiqylarvDxso wounds of head; neck; and trunk (4 sources)Laceration without foreign body of other part of head, initial encounter; Translations: [LAC W/O FBOTH PART HEAD INIT ENC]Onset: 10-20-2022 EpisodicOther complications of (1 source)High risk ; Translations: [Supervision of high risk , unspecified, second trimester]01-90-8750LrfyzdyvTqsjk complications of (3 sources)H/O: ; Translations: [Supervision of with other poor reproductive or obstetric history, unspecified trimester]12-30-9068Zgqgytkj Other complications of (2 sources)Hypothyroidism in ; Translations: [Endocrine, nutritional and metabolic diseases complicating , second trimester]10-16-2023 EpisodicOther complications of (1 source)H/O: premature delivery; Translations: [Supervision of other high risk pregnancies, unspecified trimester]22-51-0176FnxfvnroJqbds connective tissue disease (1 source)Impingement syndrome of right shoulder; Translations: [IMPINGEMENT SYNDROME RIGHT SHOULDER]Onset: 72-51-2842VingbbefMcfcz eye disorders (3 sources)Other specified disorders of eye and adnexa; Translations: [OTHER SPEC DISORDERS EYE AND ADNEXA]Onset: 63-97-8180KcfrrbqlCvnrgmzl codes; unclassified (20 sources)H/O: Disorder; Translations: [Personal history of other complications of , childbirth and the puerperium]Onset: 12-16-2023 64-61-9099TjbxnwihIzqotntb codes; unclassified (1 source)Gestation period, 20 weeks; Translations: [20 weeks gestation of ]19-79-2019VjlzfjdhWazbjlq disorders (20 sources)Disorder of thyroid gland; Translations: [Disorder of thyroid, unspecified]Onset: 310498-14-3349EytoevagFlioyefcghke (1 source)COUGH, UNSPECIFIED; Translations: [COUGH, UNSPECIFIED]Onset: 01-08-2023 Results Test NameValueInterpretationReference RangeFacilityUrinalysis macro (dipstick) panel (U)on 90-91-5814Exzffzeej, UANegativeNegative - 4(70) +++ mg/dLNOMS HealthcareBlood, UANegativeNegative - 50 Felice/mcLNOMS HealthcareClarity, UAClear NOMS HealthcareColor, UAYellowNOMS HealthcareGlucose, UANegativeNegative - 2000(110) ++++ mg/dLNOMS HealthcareInterpretation and review of laboratory resultsNormalNOMS HealthcareKetones, UANegativeNegative - 160(16) ++++ mg/dLNOMS HealthcareLeukocytes, UANegativeNegative - 500+++ Regina/mcLNOMS HealthcareNitrite, UANegativeNegative - PositiveNOMS HealthcarepH, UA7.05 - 9NOMS Healthcare Protein, UANegativeNegative - 1999(20) ++++ mg/dLNOMS HealthcareSpec Grav, UA 0.0101 - 1.03NOMS HealthcareUrobilinogen, UA0.20.2 - 12 mg/dLNOMS HealthcareNOMS HealthcareUrinalysis macro (dipstick) panel (U)on 67-05-2805Ivegyismd, UA NegativeNegative - 4(70) +++ mg/dLNOMS HealthcareBlood, UANegativeNegative - 50 Felice/mcLNOMS HealthcareClarity, UAClearNOMS HealthcareColor, UAYellowNOMS HealthcareGlucose, UANegativeNegative - 2000(110) ++++ mg/dLNOMS Healthcare Interpretation and review of laboratory resultsNormalNOMS HealthcareKetones, UA NegativeNegative - 160(16) ++++ mg/dLNOMS HealthcareLeukocytes, UANegative Negative - 500+++ Regina/mcLNOMS HealthcareNitrite, UANegativeNegative - Positive NOMS HealthcarepH, UA65 - 9NOMS HealthcareProtein, UANegativeNegative - 2000(20) ++++ mg/dLNOMS HealthcareSpec Grav, UA1.0151 - 1.03NOMS HealthcareUrobilinogen, UA0.20.2 - 12 mg/dLNOMS HealthcareNOMS HealthcareUrinalysis macro (dipstick) panel (U)on 85-56-0776Yxnuoczch, UANegativeNegative - 4(70) +++ mg/dLNOMS HealthcareBlood, UANegativeNegative - 50 Felice/mcLNOMS HealthcareClarity, UAClear NOMS HealthcareColor, UAYellowNOMS HealthcareGlucose, UANegativeNegative - 2000(110) ++++ mg/dLNOMS HealthcareInterpretation and review of laboratory resultsNormalNONV HealthcareKetones, UANegativeNegative - 160(16) ++++ mg/dLNOMS HealthcareLeukocytes, UANegativeNegative - 500+++ Regina/mcLNOMS HealthcareNitrite, UANegativeNegative - PositiveNOMS HealthcarepH, UA7.55 - 9N[facility] Healthcare Protein, UANegativeNegative - 2000(20) ++++ mg/dLNOMS HealthcareSpec Grav, UA 1.011 - 1.03NOMS HealthcareUrobilinogen, UA1.00.2 - 12 mg/dLNOMS HealthcareNOMS HealthcareALL CBC WITH AUTO DIFFon 15-65-3206GXRPZDKFR ABSOLUTE DHVG9UIGO HealthcareBasophils/100 WBC (Bld)0.3 %0.2 - 2.0 %NOMS HealthcareEosinophils/100 WBC (Bld)0.3 %Low0.9 - 7.0 %NOMS HealthcareErythrocyte distribution width (RBC) [Ratio]13.2 %11.0 - 15.0 %NOMS HealthcareHematocrit (Bld) [Volume fraction]32.2 %Low36.0 - 48.0 %NOMS HealthcareHemoglobin (Bld) [Mass/Vol]11 g/dLLow12.0 - 16.0 g/dLNOMS HealthcareIMMATURE GRANULOCYTES ABS AUTO0.02NOMS HealthcareImmature granulocytes/100 WBC (Bld)0.3 %0.0 - 0.5 %NOMS HealthcareInterpretation and review of laboratory resultsAbnormalNOMS HealthcareLYMPHOCYTES ABSOLUTE AUTO1.3 NOMS HealthcareLymphocytes/100 WBC (Bld)16.6 %Low20.5 - 60.0 %[facility] CenterH (RBC) [Entitic mass]32.9 pg26.7 - 34.0 pgHedrick Medical CenterHC (RBC) [Mass/Vol] 34.2 g/dL29.9 - 35.2 g/dLHedrick Medical CenterV (RBC) [Entitic vol]96.4 fL81.0 - 99.0 fLCoxHealthMONOCYTES ABSOLUTE AUTO0.3NONV HealthcareMonocytes/100 WBC (Bld)4.1 %1.7 - 12.0 %CoxHealthNEUTROPHILS ABSOLUTE AUTO6.3NOMS [facility] Neutrophils/100 WBC (Bld)78.4 %High43.0 - 75.0 %CoxHealthPlatelet mean volume (Bld) [Entitic vol]10.4 fL9.5 - 13.5 fLMS HealthcareTBH EO #0NOMS HealthcareTBH VQO632UfeCMKQ [facility] HospitalTB RBC3.34LowNOLiberty HospitalTB BHC5VKILLiberty HospitalCLINISYNCNOMS HealthcareIGP,APTIMA HPV,AGE GDLNon 61-23-2390BCI GDLN ACOG TESTINGNote.[facility] HealthcareComment on above:TESTS RESULT FLAG UNITS REF RANGE LAB Clinician Provided Cytology Information Source.............Endoc[employer]ix Other.............. No. of containers..01 ThinPrep Vial Age Algo ACOG Nancy... 30-65 01 FLAG LEGEND: L-Low Normal,H-High Normal,LL-Alert Low,HH-Alert High <-Panic Low,>-Panic High,A-Abnormal,AA-Critical Abnormal Performed at: 01 =[address] [address] Vikki Rivera MD, HPV APTIMANegativeNegativeNOMS HealthcareComment on above:This nucleic acid amplification test detects fourteen high- risk HPV types (16,18,31,33,35,39,45,51,52,56,58,59,66,68) without differentiation. Performed at: =[address] [id number] Sql Server Dba Developer: Vikki Rivera MD, Phone: [phone] Performed at: [address] [id number] Sql Server Dba Developer: Vikki Rivera MD, Phone: [phone] IGP, APTIMA HPV, RFX 16/18,45Note.NOMS HealthcareComment on above:TESTS RESULT FLAG UNITS REF RANGE LAB DIAGNOSIS: 02 NEGATIVE FOR INTRAEPITHELIAL LESION OR MALIGNANCY. Specimen adequacy: 02 Satisfactory for evaluation. Endocervical and/or squamous metaplastic cells (endocervical component) are present. Performed by: 02 Deshawn Kirkpatrick Cupola Tender (ASCP) . 02 Note: Note 02 The [...] <-Panic Low,>-Panic High,A-Abnormal,AA-Critical Abnormal Performed at: [address] [address] Vikki Rivera MD, SPATULA-ALONE ENDOCERVIX CLINISYNCNOMS HealthcareRECURRENT VAGINITIS (HTRX)on 51-85-3228FCPUCFQGE VAGINAE 0NOMS HealthcareATOPOBIUM VAGINAENot detectedNOMS HealthcareBVAB 2,3 (BACTERIAL VAGINOSIS ASSOCIATED BACTERIA 2, 3); MOBILUNCUS [id number] HealthcareBVAB 2,3 (BACTERIAL VAGINOSIS ASSOCIATED BACTERIA 2, 3); MOBILUNCUS SPPNot detectedNOMS HealthcareCANDIDA ALBICANS, PARAPSILOSIS, [id number] HealthcareCANDIDA ALBICANS, PARAPSILOSIS, TROPICALISNot detectedNOMS HealthcareCANDIDA GLABRATA0 NOMS HealthcareCANDIDA GLABRATANot detectedNOMS HealthcareCANDIDA [id number] HealthcareCANDIDA KRUSEINot detectedNOMS HealthcareCHLAMYDIA [id number] HealthcareCHLAMYDIA TRACHOMATISNot detectedNOMS HealthcareGARDNERELLA VAGINALIS0 NOMS HealthcareGARDNERELLA VAGINALISNot detectedNOMS HealthcareMEGASPHAERA (TYPES 1, 2)0NOMS HealthcareMEGASPHAERA (TYPES 1, 2)Not detectedNOMS Healthcare MYCOPLASMA UGNQSOLPOQ2DQKN HealthcareMYCOPLASMA GENITALIUMNot detectedNOMS HealthcareNEISSERIA [id number] HealthcareNEISSERIA GONORRHOEAENot detected NOMS HealthcareTRICHOMONAS [id number] HealthcareTRICHOMONAS VAGINALISNot detectedNOMS HealthcareNOMS HealthcareUS OB 14+ WEEKS ANATOMY SCANon 05-25-2025 US OB 14+ WEEKS ANATOMY SCANFINDINGS: A single, live intrauterine is present with normal cardiac rate of 140 beats per minute. Normal activity and amniotic fluid volume. Amniotic fluid index is cm. Morphology is grossly normal. The The placenta is posterior, inferior aspect 7.6 cm from the closed internal cervicalos, 4.6 cm. The current sonographic age is 20 weeks and 2 days, based on the following measurements: BPD 4.7 cm (20 weeks,1 days) Head Circumference 17.3cm (19 weeks, 6 days) Abdominal Circumference 15.3cm (20 weeks, 4 days) Femur Length 3.4cm (20 weeks, 5 days) Presentation Variable Placenta Posterior Weight (g) by Percentile 42.4 % * These measurements result in an estimated date of delivery of October 25, 2025. The current estimated weight is 360 grams ( pound, 13 ounces). IMPRESSION: Single, live intrauterine , current sonographic age of 20 weeks and 2 days, with an estimated date of delivery of October 25, 2025. * Estimated Weight (g) by Percentile is based upon an accurate estimated age based on last menstrual period. TRANSCRIBED BY: ELECTRONICALLY SIGNED BY: Lion Zhang AvailableComment on above:Order Comment: US OB ANATOMY SINGLE W US OB CERVICAL LENGTH Estimated Date of Delivery: 10/23/25 Gestational Age as of 05/25/2025: 03z4qKorhvvyptd macro (dipstick) panel (U)on 54-46-9540Obpcllvmk, UANegativeNegative - 4(70) +++ mg/dLNOMS HealthcareBlood, UANegativeNegative - 50 Felice/mcLNOMS HealthcareClarity, UAClearNOMS Healthcare Color, UAYellowNOMS HealthcareGlucose, UANegativeNegative - 2000(110) ++++ mg/dL NOMS HealthcareInterpretation and review of laboratory resultsAbnormalNOMS HealthcareKetones, UANegativeNegative - 160(16) ++++ mg/dLNOMS Healthcare Leukocytes, UAPositiveNegative - 500+++ Regina/mcLNOMS HealthcareNitrite, UA NegativeNegative - PositiveNOMS HealthcarepH, UA8.55 - 9NOMS HealthcareProtein, UAPositiveNegative - 1999(20) ++++ mg/dLNOMS HealthcareSpec Grav, UA1.011 - 1.03 NOMS HealthcareUrobilinogen, UA1.00.2 - 12 mg/dLNOLiberty HospitalNONV Healthcare HCG ( test) Ql (U)on 36-51-8960Mkubarzlnorilm and review of laboratory resultsAbnormalCEDAR CITY [facility] HealthcarePreg Test, UrPositiveNegativeNOMS [facility] HospitalNONV HealthcareUS OB LIMITED 1+ FETUSESon 20-84-0534HR OB LIMITED 1+ FETUSESFINDINGS: No prior examinations. A single, live intrauterine [...] 23, 2025 TRANSCRIBED BY: ELECTRONICALLY SIGNED BY: Lacie ZhangalNot AvailableComment on above:Order Comment: US OB TRANSVAGINAL No LMP recorded.Urinalysis macro (dipstick) panel (U)on 76-01-5416Makddxtqg, UA NegativeNegative - 4(70) +++ mg/dLNOMS HealthcareBlood, UANegativeNegative - 50 Felice/mcLNOMS HealthcareClarity, UAClearNOMS HealthcareColor, UAYellowNOMS HealthcareGlucose, UATraceNegative - 1999(110) ++++ mg/dLNONV Healthcare Interpretation and review of laboratory resultsAbnormOhioHealth O[facility] HealthcareKetones, UANegativeNegative - 160(16) ++++ mg/dLNOMS HealthcareLeukocytes, UAPositive Negative - 500+++ Regina/mcLNOMS HealthcareNitrite, UANegativeNegative - Positive NOMS HealthcarepH, UA7.55 - 9NOMS HealthcareProtein, UATraceNegative - 2000(20) ++++ mg/dLNOMS HealthcareSpec Grav, UA1.011 - 1.03NOMS HealthcareUrobilinogen, UA1.00.2 - 12 mg/dLNOMS HealthcareNOMS HealthcareUS OB BPP W NON-STRESSon 67-38-6365OlfH[place] [address] Ultrasound Report Signed Patient: ЕКАТЕРНИА SUTHERLAND MR#: [id number] : 1995 Acct:[id number] Age/Sex: 28 / F ADM Date: 02/10/24 Loc: US Attending Dr: Marco Bales D.O. Ordering Physician: Marco Bales D.O. Date of Service: 02/10/24 Procedure(s): US OB BPP w non-stress Accession Number(s): [id number] cc: Marco Bales D.O.; Physician,Non-Staff M.DTammie [place] [address] Patient Name: ЕКАТЕРИНА SUTHERLAND MRN: [id number] date: 1995 Sex: F Assigned Patient Location: Current Patient Location: Accession/Order Number: [id number] Exam Date: 02/10/2024 13:59 Report Date: 02/10/2024 14:55 At the request of: MARCO BALES Procedure: US OB BPP w non-stress [...] biophysical profile score 8. Electronically authenticated by: GENI CABRAL Date: 02/10/2024 14:55 Dictated By: Geni Cabral M.D. Signed By: 02/10/241456 DD/ 54 TD/TT: Slate Picker:PARTHAadiologector Radiologist, - 02/10/2024 [place] [address] Ultrasound Report Signed Patient: ЕКАТЕРИНА SUTHERLAND MR#: [id number] : 1995 Acct:[id number] Age/Sex: 28 / F ADM Date: 02/10/24 Loc: US Attending Dr: Marco Bales D.O. Ordering Physician: Marco Bales D.O. Date of Service: 02/10/24 Procedure(s): US OB BPP w non-stress Accession Number(s): [id number] cc: Marco Bales D.O.; Physician,Non-Staff Lal[facility] [place] [phone] Patient Name: ЕКАТЕРИНА SUTHERLAND MRN: [id number] date: 1995 Sex: F Assigned Patient Location: US Current Patient Location: US Accession/Order Number: [id number] Exam Date: 02/10/2024 13:59 Report Date: 02/10/2024 14:55 At the request of: MARCO BALES Procedure: US OB BPP w non-stress [...] biophysical profile score 8. Electronically authenticated by: GENI CABRAL Date: 02/10/2024 14:55 Dictated By: Geni Cabral M.D. Signed By: 02/10/241456 DD/ 54 TD/TT: Slate Picker: KEEGAN HealthcareRadiology Study observation (narrative)NOMS HealthcareUS OB BPP W NON-STRESSOrdered By: Radiologist Radiology on 64-95-9659HCDT Healthcare Work Phone: US OB BPP W NON-STRESSon [place] [phone] Ultrasound Report Signed Patient: ЕКАТЕРИНА SUTHERLAND MR#: [id number] : 1995 Acct:[id number] Age/Sex: 28 / F ADM Date: 02/03/24 Loc: US Attending Dr: Marco Bales D.O. Ordering Physician: Marco Bales D.O. Date of Service: 02/03/24 Procedure(s): US OB BPP w non-stress Accession Number(s): [id number] cc: Marco Bales D.O.; Physician,Non-Staff M.Nancy [facility] [place] [phone] Patient Name: ЕКАТЕРИНА SUTHERLAND MRN: [id number]:[id number] date: 1995 Sex: F Assigned Patient Location: US Current Patient Location: Accession/Order Number: [id number] Exam Date: 02/03/2024 14:20 Report Date: 02/04/2024 07:12 At the request of: MARCO BALES Procedure: US OB BPP w non-stress [...] profile score: 8.0 Electronically authenticated by: ALFA TSANG Date: 02/04/2024 07:12 Dictated By: Alfa Tsang M.D. Signed By: 02/04/24714 DD/ 1 TD/TT: Slate Picker:PARTHAadiologector, Radiologist, - 02/04/2024 [facility] [place] [phone] Ultrasound Report Signed Patient: ЕКАТЕРИНА SUTHERLAND MR#: [id number] : 1995 Acct:[id number] Age/Sex: 28 / F ADM Date: 02/03/24 Loc: US Attending Dr: Marco Bales D.O. Ordering Physician: Marco Bales D.O. Date of Service: 02/03/24 Procedure(s): US OB BPP w non-stress Accession Number(s): [id number] cc: Marco Bales D.O.; Physician,Non-Staff Lalit [facility] [place] [phone] Patient Name: ЕКАТЕРИНА SUTHERLAND MRN: [id number]:[id number] date: 1995 Sex: F Assigned Patient Location: US Current Patient Location: Accession/Order Number: [id number] Exam Date: 02/03/2024 14:20 Report Date: 02/04/2024 07:12 At the request of: MARCO BALES Procedure: US OB BPP w non-stress [...] profile score: 8.0 Electronically authenticated by: ALFA TSANG Date: 02/04/2024 07:12 Dictated By: Alfa Tsang M.D. Signed By: 02/04/24714 DD/ 0712 TD/TT: Slate Picker: KEEGAN HernandezRadiology Study observation (narrative)KEEGAN HealthcareUS OB BPP W NON-STRESSOrdered By: Radiologist Radiology on 21-93-8868GSZJ Healthcare Work Phone: US OB GROWTHon [phone] [address] Ultrasound Report Signed Patient: ЕКАТЕРИНА SUTHERLAND MR#: [id number] : 1995 Acct:[id number] Age/Sex: 28 / F ADM Date: 02/03/24 Loc: US Attending Dr: Marco Bales D.O. Ordering Physician: Marco Bales D.O. Date of Service: 02/03/24 Procedure(s): US OB growth Accession Number(s): [id number] cc: Marco Bales D.O.; Physician,Non-Staff MRom The [address] [address] Patient Name: ЕКАТЕРИНА SUTHERLAND MRN: [id number]:[id number] date: 1995 Sex: F Assigned Patient Location: [facility] Current Patient Location: US Accession/Order Number: [id number] Exam Date: 02/03/2024 14:20 Report Date: 02/04/2024 07:36 At the request of: MARCO BALES Procedure: US OB growth EXAMINATION: US [...] Normal interval growth Electronically authenticated by: ALFA TSANG Date: 02/04/2024 07:36 Dictated By: Alfa Tsang M.D. Signed By: 02/04/24 0739 DD/ 0736 TD/TT: Slate Picker:TBHRadiology, Radiologist, - 02/04/2024 [place] [address] Ultrasound Report Signed Patient: ЕКАТЕРИНА SUTHERLAND MR#: [id number] : 1995 Acct:[id number] Age/Sex: 28 / F ADM Date: 02/03/24 Loc: US Attending Dr: Marco Bales D.O. Ordering Physician: Marco Bales D.O. Date of Service: 02/03/24 Procedure(s): US OB growth Accession Number(s): [id number] cc: Marco Bales D.O.; Physician,Non-Staff Lalit [facility] [place] [phone] Patient Name: ЕКАТЕРИНА SUTHERLAND MRN: [id number]:[id number] date: 1995 Sex: F Assigned Patient Location: [facility] Current Patient Location: US Accession/Order Number: [id number] Exam Date: 02/03/2024 14:20 Report Date: 02/04/2024 07:36 At the request of: MARCO BALES Procedure: US OB growth EXAMINATION: US [...] Normal interval growth Electronically authenticated by: ALFA TSANG Date: 02/04/2024 07:36 Dictated By: Alfa Tsang M.D. Signed By: 02/04/2439 DD/ TD/TT: Slate Picker: KEEGAN HealthcareRadiology Study observation (narrative)NOM HealthcareUS OB GROWTHOrdered By: Radiologist Radiology on 49-72-7354VXDZ Healthcare Work Phone: US OB BPP W NON-STRESSon [phone], [place] [address] Ultrasound Report Signed Patient: ЕКАТЕРИНА SUTHERLAND MR#: [id number] : 1995 Acct:[id number] Age/Sex: 28 / F ADM Date: 01/27/24 Loc: US Attending Dr: Marco Bales D.O. Ordering Physician: Marco Bales D.O. Date of Service: 01/27/24 Procedure(s): US OB BPP w non-stress Accession Number(s): [id number] cc: Marco Bales D.O.; Physician,Non-Staff Lalit The [address] [address] Patient Name: ЕКАТЕРИНА SUTHERLAND MRN: [id number]:[id number] date: 1995 Sex: F Assigned Patient Location: US Current Patient Location: US Accession/Order Number: [id number] Exam Date: 01/27/2024 14:45 Report Date: 01/27/2024 15:19 At the request of: MARCO BALES Procedure: US OB BPP w non-stress [...] profile score: 8.0 Electronically authenticated by: ALFA TSANG Date: 01/27/2024 15:19 Dictated By: Alfa Tsang M.D. Signed By: 01/27/24 1521 DD/ 1519 TD/TT: Slate Picker:TBHRadiology, Radiologist, - 01/27/2024 [place] [address] Ultrasound Report Signed Patient: ЕКАТЕРИНА SUTHERLAND MR#: [id number] : 1995 Acct:[id number] Age/Sex: 28 / F ADM Date: 01/27/24 Loc: US Attending Dr: Marco Bales D.O. Ordering Physician: Marco Bales D.O. Date of Service: 01/27/24 Procedure(s): US OB BPP w non-stress Accession Number(s): [id number] cc: Marco Bales D.O.; Physician,Non-Staff Lalit The [address] [address] Patient Name: ЕКАТЕРИНА SUTHERLAND MRN: [id number]:[id number] date: 1995 Sex: F Assigned Patient Location: US Current Patient Location: US Accession/Order Number: [id number] Exam Date: 01/27/2024 14:45 Report Date: 01/27/2024 15:19 At the request of: MARCO BALES Procedure: US OB BPP w non-stress [...] profile score: 8.0 Electronically authenticated by: ALFA TSANG Date: 01/27/2024 15:19 Dictated By: Alfa Tsang M.D. Signed By: 01/27/24 1521 DD/ 1519 TD/TT: Slate Picker: NOMS HealthcareRadiology Study observation (narrative)NOMS HealthcareUS OB BPP W NON-STRESSOrdered By: Radiologist Radiology on 44-54-0999OWBJ Healthcare Work Phone: US OB BPP W NON-STRESSon [phone], [place] [address] Ultrasound Report Signed Patient: ЕКАТЕРИНА SUTHERLAND MR#: [id number] : 1995 Acct:[id number] Age/Sex: 28 / F ADM Date: 01/20/24 Loc: US Attending Dr: Marco Bales D.O. Ordering Physician: Marco Bales D.O. Date of Service: 01/20/24 Procedure(s): US OB BPP w non-stress Accession Number(s): [id number] cc: Marco Bales D.O.; Physician,Non-Staff MRom The [address] [address] Patient Name: ЕКАТЕРИНА SUTHERLAND MRN: [id number]:[id number] date: 1995 Sex: F Assigned Patient Location: [facility] Current Patient Location: Accession/Order Number: [id number] Exam Date: 01/20/2024 19:12 Report Date: 01/21/2024 07:13 At the request of: MARCO BALES Procedure: US OB BPP w non-stress [...] profile score: 8.0 Electronically authenticated by: ALFA TSANG Date: 01/21/2024 07:13 Dictated By: Alfa Tsang M.D. Signed By: 01/21/24715 DD/ 2 TD/TT: Slate Picker:TBHRadiology, Radiologist, MD - 01/21/2024 [place] [address] Ultrasound Report Signed Patient: ЕКАТЕРИНА SUTHERLAND MR#: [id number] : 1995 Acct:[id number] Age/Sex: 28 / F ADM Date: 01/20/24 Loc: US Attending Dr: Marco Bales D.O. Ordering Physician: Marco Bales D.O. Date of Service: 01/20/24 Procedure(s): US OB BPP w non-stress Accession Number(s): [id number] cc: Marco Bales D.O.; Physician,Non-Staff Lalit [place] [address] Patient Name: ЕКАТЕРИНА SUTHERLAND MRN: [id number]:[id number] date: 1995 Sex: F Assigned Patient Location: [facility] Current Patient Location: Accession/Order Number: [id number] Exam Date: 01/20/2024 19:12 Report Date: 01/21/2024 07:13 At the request of: MARCO NII Procedure: US OB BPP w non-stress EXAMINATION: [...] profile score: 8.0 Electronically authenticated by: ALFA TSANG Date: 01/21/2024 07:13 Dictated By: Alfa Tsang M.D. Signed By: 01/21/24715 DD/ 2 TD/TT: Slate Picker: KEEGAN HealthcareRadiology Study observation (narrative)NOM HealthcareUS OB BPP W NON-STRESSOrdered By: Radiologist Radiology on 38-21-8094FDSP [employer] Work Phone: US OB BPP W NON-STRESSon 08-01-2688[place], [place] [address] Ultrasound Report Signed Patient: ЕКАТЕРИНА SUTHERLAND MR#: [id number] : 1995 Acct:[id number] Age/Sex: 28 / F ADM Date: 01/13/24 Loc: [facility] 250-[address]: Marco Bales D.O. Ordering Physician: Marco Bales D.O. Date of Service: 01/13/24 Procedure(s): US OB BPP w non-stress Accession Number(s): [id number] cc: Marco Bales D.O.; Physician,Non-Staff M.Nancy The [address] [address] Patient Name: ЕКАТЕРИНА SUTHERLAND MRN: [id number]:[id number] date: 1995 Sex: F Assigned Patient Location: [facility] Current Patient Location: [facility] Accession/Order Number: [id number] Exam Date: 01/13/2024 14:07 Report Date: 01/13/2024 14:52 At the request of: MARCO BALES Procedure: US OB BPP w non-stress [...] upper limits of normal. Electronically authenticated by: GENI CABRAL Date: 01/13/2024 14:52 Dictated By: Geni Cabral M.D. Signed By: 01/13/24 1455 DD/ 1452 TD/TT: Slate Picker:TBHRadiology, Radiologist, - 01/16/2024 [place] [address] Ultrasound Report Signed Patient: ЕКАТЕРИНА SUTHERLAND MR#: [id number] : 1995 Acct:[id number] Age/Sex: 28 / F ADM Date: 01/13/24 Loc: [place] [address]- Attending Dr: Marco Bales D.O. Ordering Physician: Marco Bales D.O. Date of Service: 01/13/24 Procedure(s): US OB BPP w non-stress Accession Number(s): [id number] cc: Marco Bales D.O.; Physician,Non-Staff Lalit [facility] [place] [address] Patient Name: ЕКАТЕРИНА SUTHERLAND MRN: [facility]:[id number] date: 1995 Sex: F Assigned Patient Location: [facility] Current Patient Location: [facility] Accession/Order Number: [id number] Exam Date: 01/13/2024 14:07 Report Date: 01/13/2024 14:52 At the request of: MARCO NII Procedure: US OB BPP w non-stress EXAMINATION: [...] upper limits of normal. Electronically authenticated by: GENI CABRAL Date: 01/13/2024 14:52 Dictated By: Geni Cabral M.D. Signed By: 01/13/24 1455 DD/ 51 TD/TT: Slate Picker: KEEGAN HealthcareRadiology Study observation (narrative)NOM HealthcareUS OB BPP W NON-STRESSOrdered By: Radiologist Radiology on 90-35-5701[facility] Work Phone: all CBC WITH AUTO DIFFon 61-52-7701LFYKPKEDG ABSOLUTE AUTO0.0NOMS HealthcareBasophils/100 WBC (Bld)0.1 %Low0.2 - 2.0 %[facility] Eosinophils/100 WBC (Bld)0.3 %Low0.9 - 7.0 %NOM HealthcareErythrocyte distribution width (RBC) [Ratio]13.2 %11.0 - 15.0 %NOM HealthcareHematocrit (Bld) [Volume fraction]31.2 %Low36.0 - 48.0 %NOM HealthcareHemoglobin (Bld) [Mass/Vol]10.1 g/dLLow12.0 - 16.0 g/dLNONV HealthcareIMMATURE GRANULOCYTES ABS AUTO0.04HighNONV HealthcareImmature granulocytes/100 WBC (Bld)0.6 %High0.0 - 0.5 %NOM HealthcareInterpretation and review of laboratory resultsAbnormalNONV HealthcareLYMPHOCYTES ABSOLUTE AUTO1.0LowNONV HealthcareLymphocytes/100 WBC (Bld)13.6 %Low20.5 - 60.0 %NOMSsm RehabMCH (RBC) [Entitic mass]31.3 pg26.7 - 34.0 pgNOMercy Hospital JoplinHC (RBC) [Mass/Vol]32.4 g/dL29.9 - 35.2 g/dLNONV HealthcareMCV (RBC) [Entitic vol]96.6 fL81.0 - 99.0 fLNONV HealthcareMONOCYTES ABSOLUTE AUTO0.4NOMS HealthcareMonocytes/100 WBC (Bld)5.2 %1.7 - 12.0 %NOM HealthcareNEUTROPHILS ABSOLUTE AUTO5.8NOMS HealthcareNeutrophils/100 WBC (Bld) 80.2 %High43.0 - 75.0 %[facility] HealthcarePlatelet mean volume (Bld) [Entitic vol] 11.1 fL9.5 - 13.5 fLNONV HealthcareTBH EO #0.0NOMS HealthcareTBH GVG012MpzODNY HealthcareTB RBC3.23LowNOMS HealthcareTBH WBC7.3NOMS HealthcareCLINISYNCNOMS HealthcareGLUCOSE 1 HOURon 00-70-3401Lraaemr [Mass/Vol]163 mg/dLHighNINF - 130 mg/dLCEDAR CITY HOSPITAL HealthcareInterpretation and review of laboratory resultsAbnormalNONV HealthcareCLINISYNCNOMS HealthcareNo Panel Informationon 83-59-9342Brjcxweio Study observation (narrative)CoxHealthUS OB BPP W NON-STRESSon 51-35-3411DdrH[place]ins, [place] [address] Ultrasound Report Signed Patient: ЕКАТЕРИНА SUTHERLAND MR#: [id number] : 1995 Acct:[id number] Age/Sex: 28 / F ADM Date: 01/06/24 Loc: US Attending Dr: Marco Bales D.O. Ordering Physician: Marco Bales D.O. Date of Service: 01/06/24 Procedure(s): US OB BPP w non-stress Accession Number(s): [id number] cc: Marco Bales D.O.; Physician,Non-Staff MRom The [address] [address] Patient Name: ЕКАТЕРИНА SUTHERLAND MRN: TBH:[id number] date: 1995 Sex: F Assigned Patient Location: US Current Patient Location: US Accession/Order Number: [id number] Exam Date: 01/06/2024 14:30 Report Date: 01/07/2024 07:06 At the request of: MARCO BALES Procedure: US OB BPP w non-stress [...] profile score: 8.0 Electronically authenticated by: ALFA TSANG Date: 01/07/2024 07:06 Dictated By: Alfa Tsang M.D. Signed By: 01/07/24 0709 DD/ 0706 TD/TT: Slate Picker:GRAHAMHRadiology, Radiologist, MD - 01/07/2024 [place] [address] Ultrasound Report Signed Patient: ЕКАТЕРИНА SUTHERLAND MR#: [id number] : 1995 Acct:[id number] Age/Sex: 28 / F ADM Date: 01/06/24 Loc: US Attending Dr: Marco Bales D.O. Ordering Physician: Marco Bales D.O. Date of Service: 01/06/24 Procedure(s): US OB BPP w non-stress Accession Number(s): [id number] cc: Marco Bales D.O.; Physician,Non-Staff MRom The [place] [phone] Patient Name: ЕКАТЕРИНА SUTHERLAND MRN: [id number]:[id number] date: 1995 Sex: F Assigned Patient Location: US Current Patient Location: US Accession/Order Number: [id number] Exam Date: 01/06/2024 14:30 Report Date: 01/07/2024 07:06 At the request of: MARCO BALES Procedure: US OB BPP w non-stress [...] profile score: 8.0 Electronically authenticated by: ALFA TSANG Date: 01/07/2024 07:06 Dictated By: Alfa Tsang M.D. Signed By: 01/07/24708 DD/ 5 TD/TT: Slate Picker: KEEGAN HernandezUS OB BPP W NON-STRESSOrdered By: Radiologist Radiology on 33-83-3753JWWG [employer] Work Phone: US OB GROWTHon 01-94-6398[place]jk[place], [place] [address] Ultrasound Report Signed Patient: ЕКАТЕРИНА SUTHERLAND MR#: [id number] : 1995 Acct:[id number] Age/Sex: 28 / F ADM Date: 01/06/24 Loc: US Attending Dr: Marco Bales D.O. Ordering Physician: Marco Bales D.O. Date of Service: 01/06/24 Procedure(s): US OB growth Accession Number(s): [id number] cc: Marco Bales D.O.; Physician,Non-Staff Lalit The [address] [address] Patient Name: ЕКАТЕРИНА SUTHERLAND MRN: [id number]:[id number] date: 1995 Sex: F Assigned Patient Location: US Current Patient Location: US Accession/Order Number: [id number] Exam Date: 01/06/2024 14:30 Report Date: 01/07/2024 07:06 At the request of: MARCO BALES Procedure: US OB growth EXAMINATION: US [...] Normal interval growth Electronically authenticated by: ALFA TSANG Date: 01/07/2024 07:06 Dictated By: Alfa Tsang M.D. Signed By: 01/07/24 0708 DD/ 0706 TD/TT: Slate Picker:TBHRadiology, Radiologist, - 01/07/2024 [place] [address] Ultrasound Report Signed Patient: ЕКАТЕРИНА SUTHERLAND MR#: [id number] : 1995 Acct:[id number] Age/Sex: 28 / F ADM Date: 01/06/24 Loc: US Attending Dr: Marco Bales D.O. Ordering Physician: Marco Bales D.O. Date of Service: 01/06/24 Procedure(s): US OB growth Accession Number(s): [id number] cc: Marco Bales D.O.; Physician,Non-Staff Lalit The [address] [address] Patient Name: ЕКАТЕРИНА SUTHERLAND MRN: [facility]:[id number] date: 1995 Sex: F Assigned Patient Location: US Current Patient Location: US Accession/Order Number: [id number] Exam Date: 01/06/2024 14:30 Report Date: 01/07/2024 07:06 At the request of: MARCO BALES Procedure: US OB growth EXAMINATION: US [...] Normal interval growth Electronically authenticated by: ALFA TSANG Date: 01/07/2024 07:06 Dictated By: Alfa Tsang M.D. Signed By: 01/07/2408 DD/ 5 TD/TT: Slate Picker: KEEGAN Barakat OB GROWTHOrdered By: Radiologist Radiology on 81-31-6795NTOB Easy [employer] Online Work Phone: US OB BPP W NON-STRESSon 88-55-[address]252[address] [address] Ultrasound Report Signed Patient: ЕКАТЕРИНА SUTHERLAND MR#: [id number] : 1995 Acct:[id number] Age/Sex: 28 / F ADM Date: 12/30/23 Loc: [facility] 250-[address]: Marco Bales D.O. Ordering Physician: Marco Bales D.O. Date of Service: 12/30/23 Procedure(s): US OB BPP w non-stress Accession Number(s): [id number] cc: Marco Bales D.O.; Physician,Non-Staff M.Nancy [facility] [place] [address] Patient Name: ЕКАТЕРИНА SUTHERLAND MRN: [facility]:[id number] date: 1995 Sex: F Assigned Patient Location: [facility] Current Patient Location: [facility] Accession/Order Number: [id number] Exam Date: 12/30/2023 14:07 Report Date: 12/30/2023 14:40 At the request of: MARCO BALES Procedure: US OB BPP w non-stress [...] profile score: 8.0 Electronically authenticated by: ALFA TSANG Date: 12/30/2023 14:40 Dictated By: Alfa Tsang M.D. Signed By: 12/30/23 1443 DD/ 1440 TD/TT: Slate Picker:PARTHAadiology, Radiologist, - 12/30/2023 [place] [address] Ultrasound Report Signed Patient: ЕКАТЕРИНА SUTHERLAND MR#: [id number] : 1995 Acct:[id number] Age/Sex: 28 / F ADM Date: 12/30/23 Loc: [facility] 250-[address]: Marco Bales D.O. Ordering Physician: Marco Bales D.O. Date of Service: 12/30/23 Procedure(s): US OB BPP w non-stress Accession Number(s): [id number] cc: Marco Bales D.O.; Physician,Non-Staff MRom The [place] [address] Patient Name: ЕКАТЕРИНА SUTHERLAND MRN: [facility]:[id number] date: 1995 Sex: F Assigned Patient Location: [facility] Current Patient Location: [facility] Accession/Order Number: [id number] Exam Date: 12/30/2023 14:07 Report Date: 12/30/2023 14:40 At the request of: MARCO BALES Procedure: US OB BPP w non-stress [...] profile score: 8.0 Electronically authenticated by: ALFA TSANG Date: 12/30/2023 14:40 Dictated By: Alfa Tsang M.D. Signed By: 12/30/23 1443 DD/ 144 TD/TT: Slate Picker: NOMJovany HealthcareRadiology Study observation (narrative)NOMS HealthcareUS OB BPP W NON-STRESSOrdered By: Radiologist Radiology on 20-54-5814[facility] Work Phone: US OB BPP W NON-STRESSon 33-50-1333[place]pk[place], [place] [address] Ultrasound Report Signed Patient: ЕКАТЕРИНА SUTHERLAND MR#: [id number] : 1995 Acct:[id number] Age/Sex: 28 / F ADM Date: 12/23/23 Loc: [facility] 250-[address]: Marco Bales D.O. Ordering Physician: Marco Bales D.O. Date of Service: 12/23/23 Procedure(s): US OB BPP w non-stress Accession Number(s): [id number] cc: Marco Bales D.O.; Physician,Non-Staff MRom The [place] [address] Patient Name: ЕКАТЕРИНА SUTHERLAND MRN: [facility]:[id number] date: 1995 Sex: F Assigned Patient Location: [facility] Current Patient Location: [facility] Accession/Order Number: [id number] Exam Date: 12/23/2023 14:15 Report Date: 12/23/2023 14:58 At the request of: MARCO BALES Procedure: US OB BPP w non-stress [...] profile score: 8.0 Electronically authenticated by: ALFA TSANG Date: 12/23/2023 14:58 Dictated By: Alfa Tsang M.D. Signed By: 12/23/23 1501 DD/ 1458 TD/TT: Slate Picker:GRAHAMHRadiology, Radiologist, - 12/23/2023 [place] [address] Ultrasound Report Signed Patient: ЕКАТЕРИНА SUTHERLAND MR#: [id number] : 1995 Acct:[id number] Age/Sex: 28 / F ADM Date: 12/23/23 Loc: [facility] 250-[address]: Marco Bales D.O. Ordering Physician: Marco Bales D.O. Date of Service: 12/23/23 Procedure(s): US OB BPP w non-stress Accession Number(s): [id number] cc: Marco Bales D.O.; Physician,Non-Staff Lalit The [place] [id number] Patient Name: ЕКАТЕРИНА SUTHERLAND MRN: [facility]:[id number] date: 1995 Sex: F Assigned Patient Location: [facility] Current Patient Location: [facility] Accession/Order Number: [id number] Exam Date: 12/23/2023 14:15 Report Date: 12/23/2023 14:58 At the request of: MARCO BALES Procedure: US OB BPP w non-stress [...] profile score: 8.0 Electronically authenticated by: ALFA TSANG Date: 12/23/2023 14:58 Dictated By: Alfa Tsang M.D. Signed By: 12/23/23 1501 DD/ 1458 TD/TT: Slate Picker: NOMJovany HealthcareRadiology Study observation (narrative)NOMS HealthcareUS OB BPP W NON-STRESSOrdered By: Radiologist Radiology on 27-85-2224[facility] Work Phone: US OB BPP W NON-STRESSon [phone], [place] [address] Ultrasound Report Signed Patient: ЕКАТЕРИНА SUTHERLAND MR#: [id number] : 1995 Acct:[id number] Age/Sex: 28 / F ADM Date: 12/16/23 Loc: [facility] 250-[address]: Marco Bales D.O. Ordering Physician: Marco Bales D.O. Date of Service: 12/16/23 Procedure(s): US OB BPP w non-stress Accession Number(s): [id number] cc: Marco Bales D.O.; Physician,Non-Staff Lalit The [place] [id number] Patient Name: ЕКАТЕРИНА SUTHERLAND MRN: [id number] date: 1995 Sex: F Assigned Patient Location: [facility] Current Patient Location: [facility] Accession/Order Number: [id number] Exam Date: 12/16/2023 14:05 Report Date: 12/16/2023 14:30 At the request of: MARCO BALES Procedure: US OB BPP w non-stress [...] profile score: 8.0 Electronically authenticated by: ALFA TSANG Date: 12/16/2023 14:30 Dictated By: Alfa Tsang M.D. Signed By: 12/16/23 1432 DD/ 1430 TD/TT: Slate Picker:PARTHAadiology, Radiologist, - 12/18/2023 [place] [address] Ultrasound Report Signed Patient: ЕКАТЕРИНА SUTHERLAND MR#: [id number] : 1995 Acct:[id number] Age/Sex: 28 / F ADM Date: 12/16/23 Loc: [facility] 250-[address]: Marco Bales D.O. Ordering Physician: Marco Bales D.O. Date of Service: 12/16/23 Procedure(s): US OB BPP w non-stress Accession Number(s): [id number] cc: Marco Bales D.O.; Physician,Non-Staff Lalit [place] [id number] Patient Name: ЕКАТЕРИНА SUTHERLAND MRN: [facility]:[id number] date: 1995 Sex: F Assigned Patient Location: [facility] Current Patient Location: [facility] Accession/Order Number: [id number] Exam Date: 12/16/2023 14:05 Report Date: 12/16/2023 14:30 At the request of: MARCO BALES Procedure: US OB BPP w non-stress [...] profile score: 8.0 Electronically authenticated by: ALFA TSANG Date: 12/16/2023 14:30 Dictated By: Alfa Tsang M.D. Signed By: 12/16/23 143 DD/ 1430 TD/TT: Slate Picker: KEEGAN HealthcareRadiology Study observation (narrative)KEEGAN HealthcareUS OB BPP W NON-STRESSOrdered By: Radiologist Radiology on [id number] Work Phone: US OB BPP W NON-STRESSon [phone] [phone] Ultrasound Report Signed Patient: ЕКАТЕРИНА SUTHERLAND MR#: [id number] : 1995 Acct:[id number] Age/Sex: 28 / F ADM Date: 12/09/23 Loc: [facility] 250-[address]: Marco Bales D.O. Ordering Physician: Marco Bales D.O. Date of Service: 12/09/23 Procedure(s): US OB BPP w non-stress Accession Number(s): [id number] cc: Marco Bales D.O.; Physician,Non-Staff [place] [id number] Patient Name: ЕКАТЕРИНА SUTHERLAND MRN: [facility]:[id number] date: 1995 Sex: F Assigned Patient Location: [facility] Current Patient Location: [facility] Accession/Order Number: [id number] Exam Date: 12/09/2023 14:32 Report Date: 12/09/2023 15:19 At the request of: MARCO BALES Procedure: US OB BPP w non-stress [...] profile score: 8.0 Electronically authenticated by: ALFA TSANG Date: 12/09/2023 15:19 Dictated By: Alfa Tsang M.D. Signed By: 12/09/23 1521 DD/ 1519 TD/TT: Slate Picker:PARTHAadiologector, Radiologist, - 12/09/2023 [facility] [place], [place] [address] Ultrasound Report Signed Patient: ЕКАТЕРИНА SUTHERLAND MR#: [id number] : 1995 Acct:[id number] Age/Sex: 28 / F ADM Date: 12/09/23 Loc: [facility] 250-[address]: Marco Bales D.O. Ordering Physician: Marco Bales D.O. Date of Service: 12/09/23 Procedure(s): US OB BPP w non-stress Accession Number(s): [id number] cc: Marco Bales D.O.; Physician,Non-Staff [place] [phone] Patient Name: ЕКАТЕРИНА SUTHERLAND MRN: [id number] date: 1995 Sex: F Assigned Patient Location: [facility] Current Patient Location: [facility] Accession/Order Number: [id number] Exam Date: 12/09/2023 14:32 Report Date: 12/09/2023 15:19 At the request of: MARCO BALES Procedure: US OB BPP w non-stress [...] profile score: 8.0 Electronically authenticated by: ALFA TSANG Date: 12/09/2023 15:19 Dictated By: Alfa Tsang M.D. Signed By: 12/09/23 1521 DD/ 1519 TD/TT: Slate Picker: KEEGAN HealthcareRadiology Study observation (narrative)NOMJovany HealthcareUS OB BPP W NON-STRESSOrdered By: Radiologist Radiology on 68-00-7067NPNP Healthcare Work Phone: US OB GROWTHon [phone] [phone] Ultrasound Report Signed Patient: ЕКАТЕРИНА SUTHERLAND MR#: [id number] : 1995 Acct:[id number] Age/Sex: 28 / F ADM Date: 12/09/23 Loc: [facility] 250-[address]: Marco Bales D.O. Ordering Physician: Marco Bales D.O. Date of Service: 12/09/23 Procedure(s): US OB growth Accession Number(s): [id number] cc: Marco Bales D.O.; Physician,Non-Staff [place] [address] Patient Name: ЕКАТЕРИНА SUTHERLAND MRN: [id number] date: 1995 Sex: F Assigned Patient Location: [facility] Current Patient Location: [facility] Accession/Order Number: [id number] Exam Date: 12/09/2023 14:32 Report Date: 12/09/2023 15:20 At the request of: MARCO BALES Procedure: US OB growth EXAMINATION: US [...] Normal interval growth Electronically authenticated by: ALFA Salvador: 12/09/2023 15:20 Dictated By: Alfa Tsang M.D. Signed By: 12/09/23 1522 DD/ 1520 TD/TT: Slate Picker:PARTHAadiologector, Radiologist, - 12/09/2023 [place] [address] Ultrasound Report Signed Patient: ЕКАТЕРИНА SUTHERLAND MR#: [id number] : 1995 Acct:[id number] Age/Sex: 28 / F ADM Date: 12/09/23 Loc: [facility] 250-[address]: Marco Bales D.O. Ordering Physician: Marco Bales D.O. Date of Service: 12/09/23 Procedure(s): US OB growth Accession Number(s): [id number] cc: Marco Bales D.O.; Physician,Non-Staff [place] [address] Patient Name: ЕКАТЕРИНА SUTHERLAND MRN: [id number] date: 1995 Sex: F Assigned Patient Location: [facility] Current Patient Location: [facility] Accession/Order Number: [id number] Exam Date: 12/09/2023 14:32 Report Date: 12/09/2023 15:20 At the request of: MARCO BALES Procedure: US OB growth EXAMINATION: US [...] Normal interval growth Electronically authenticated by: ALFA TSANG Date: 12/09/2023 15:20 Dictated By: Alfa Tsang M.D. Signed By: 12/09/231521 DD/ 19 TD/TT: Slate Picker: [facility] HealthcareRadiology Study observation (narrative)NOMS HealthcareUS OB GROWTHOrdered By: Radiologist Radiology on 93-70-3794KSPS Healthcare Work Phone: Urinalysis macro (dipstick) panel (U)on 11-27-2023 Bilirubin, UANegativeNegative - 4(70) +++ mg/dLNOMS HealthcareBlood, UANegative Negative - 50 Felice/mcLNOMS HealthcareClarity, UAClearNOMS HealthcareColor, UA YellowNOMS HealthcareGlucose, UANegativeNegative - 2000(110) ++++ mg/dLNOMS HealthcareInterpretation and review of laboratory resultsNormalNONV Healthcare Ketones, UANegativeNegative - 160(16) ++++ mg/dLNOMS HealthcareLeukocytes, UA NegativeNegative - 500+++ Regina/mcLNOMS HealthcareNitrite, UANegativeNegative - PositiveNOMS HealthcarepH, UA5.55 - 9NOMS HealthcareProtein, UANegativeNegative - 2000(20) ++++ mg/dLNOMS HealthcareSpec Grav, UA1.0301 - 1.03NOMS Healthcare Urobilinogen, UA0.20.2 - 12 mg/dLNOMS HealthcareNOMS HealthcarePREG QUANT HCGon 52-15-4589PSC QUANT17 mIU/mLNormalTrinity Health System East CampusComment on above: Performed By: #### PREGQNT #### [facility] [address] [place] [address] Dr. Anna RomeroWooster Community HospitalComment on above: Result Comment: 5-50 0.2-1 WEEK 50-500 1-2 WEEKS 100-5,000 2-3 WEEKS 500-10,000 3-4 WEEKS 1,000-50,000 4-5 WEEKS 10,000-100,000 5-6 WEEKS 15,000-200,000 6-8 WEEKS 10,000-100,000 2-3 MONTHSPerformed By: #### PREGQNT #### [facility] [address] [place] [address] Dr. Anna Kline QUANT HCGon 17-48-7342HXQ TYCDU560 mIU/mLNormalTrinity Health System East CampusComment on above:Performed By: #### GAYLEREleanor, GRASTCX #### [facility] [address] [place] [address] Dr. Anna Alfonso RANGESEE BELOWProMedica Toledo HospitalComment on above: Result Comment: 5-50 0.2-1 WEEK 50-500 1-2 WEEKS 100-5,000 2-3 WEEKS 500-10,000 3-4 WEEKS 1,000-50,000 4-5 WEEKS 10,000-100,000 5-6 WEEKS 15,000-200,000 6-8 WEEKS 10,000-100,000 2-3 MONTHSPerformed By: #### SSCRN, GRASTCX #### [facility] [address] [place] [address] Dr. Anna Martin AND RH TYPEon 37-82-1935MUX and Rh group Nom (Bld)ABO Rh Typing A Rh PositiveProMedica Toledo HospitalComment on above:Performed By: #### SSCRN, GRASTCX #### [facility] [address] [place] [address] Dr. Castillo ChangER URINE PROFILEon 75-77-3337Ywyvfqovk Ql (U)NegativeNormal NEGATIVETrinity Health System East CampusComment on above:Performed By: #### JD PAZRO #### [facility] [address] [place] [address] Dr. Anna RomeroClarity (U)CLEARNormalCLEARTrinity Health System East CampusComment on above: Performed By: #### BRANDI UMICRO #### [facility] [address] [address] [address] Anna Lezama (U)YELLOWNormalYELLOWTrinity Health System East CampusComment on above: Performed By: #### BRANDI UMICRO #### [facility] [address] [address] [address] Anna Karimi micrscopic examination will be performed if indicated. NormalThe [facility] DaytonComment on above:Performed By: #### BRANDI UMICRO #### [facility] [address] [address] [address] Anna RomeroGlucose Ql (U)NegativeNormalNEGATIVETrinity Health System East CampusComment on above:Performed By: #### BRANDI UMICRO #### [facility] [address] [address] [address] Anna RomeroHemoglobin Ql (U)LARGEAbnormalNEGATIVEChildren'S Hospital For Rehabilitation on above:Performed By: #### BRANDI UMICRO #### [facility] [address] [address] [address] Anna Hirschones Ql (U)NegativeNormalNEGATIVETrinity Health System East CampusComment on above:Performed By: #### BRANDI UMICRO #### [facility] [address] [address] [address] Anna RomeroLEUKOCYTESNegativeNormalNEGATIVETrinity Health System East CampusComment on above:Performed By: #### BRANDI UMICRO #### [facility] [address] [address] [address] Anna RomeroNitrite Ql (U)NegativeNormalNEGATIVETrinity Health System East CampusComment on above:Performed By: #### BRANDI UMICRO #### [facility] [address] [address] [address] Anna RomeropH (U)5.5 [pH]Normal5-9Tr[facility] Health System East CampusComment on above: Performed By: #### BRANDI UMICRO #### [facility] [address] [place] [address] Dr. Anna Gamble GRAVITY>=1.220Uetnfsjh6.005-<=1.025The [facility] Comment on above:Performed By: #### FANG PAZICRO #### [facility] [address] [place] [address] Dr. Anna Carmona PROTEINTRACENormalNEGATIVE/ TRACEThe [facility] DaytonComment on above:Performed By: #### BRANDI UMICRO #### [facility] [address] [place] [address] Dr. Anna Esparza MICRO INDINDGuernsey Memorial HospitalComment on above: Performed By: #### JD PAZRO #### [facility] [address] [place] [address] Dr. Anna Currybilinogen Qn (U)0.2 {Joel'U}/dLNormal0.2 - 1.0The [facility] DaytonComment on above:Performed By: #### JD PAZRO #### [facility] [address] [place] [address] Dr. Anna Kline QUANT HCGon 76-52-3417CEP FIUIE0028 mIU/mLNormalTrinity Health System East CampusComment on above:Performed By: #### GAYLEREleanor, GRASTCX #### [facility] [address] [place] [address] Dr. Anna Alfonso RANGESEE [facility] Elizabeth Boardman HospitalComment on above: Result Comment: 5-50 0.2-1 WEEK 50-500 1-2 WEEKS 100-5,000 2-3 WEEKS 500-10,000 3-4 WEEKS 1,000-50,000 4-5 WEEKS 10,000-100,000 5-6 WEEKS 15,000-200,000 6-8 WEEKS 10,000-100,000 2-3 MONTHSPerformed By: #### GAYLERN, GRASTCX #### [facility] [address] [place] [address] Dr. Anna Mazariegos MICROSCOPIC ONLYon 79-96-4619VFFVWJYQPYZLDCpzcwjizEKUE SEEN [facility] on above:Performed By: #### ERUR, UMICRO #### [facility] [address] [place] [address] Dr. Anna Coy identified Cx Nom (U)NOT INDICATEDNormalThe [facility] on above:Performed By: #### ERUR, UMICRO #### [facility] [address] [place] [address] Dr. Anna Carrera SEENNormalNONE SEENMcKitrick Hospital on above:Performed By: #### ERUR, UMICRO #### [facility] [address] [place] [address] Dr. Anna Okeefe LM Nom (Urine sed)NONE SEENNormalNONE SEENMcKitrick Hospital on above:Performed By: #### BRANDI UMICRO #### [facility] [address] [place] [address] Dr. Anna Nicolethelial cells LM Ql (Urine sed)RARENormalNONE SEEN /RAREThe [facility] on above:Performed By: #### BRANDI UMICRO #### [facility] [address] [place] [address] Dr. Anna ArguetaCOUSTRACEAbnormalNONE SEENMcKitrick Hospital on above:Performed By: #### BRANDI UMICRO #### [facility] [address] [place] [address] Dr. Anna TonyFehpoVSA9-4Bcdfhtus3-1Pdv [facility] on above:Performed By: #### ERUR, UMICRO #### [facility] [address] [place] [address] Dr. Anna RomeroWBC0-2AbnormalNONE SEENMcKitrick Hospital on above: Performed By: #### ERUR, UMICRO #### [facility] [address] [place] [address] Dr. Anna RomeroUS PREG TVon 20-40-3624TN PREG TVEXAM: US PREG TV HISTORY: , spotting. COMPARISON: [...] authenticated by: LUDWIG JEAN BAPTISTE Date: 2023-01-21 16:54NoOhio State University [facility] URINE PROFILEon 29-39-6089Nwrkkuhhk Ql (U)NegativeNormal NEGATIVETrinity Health System East CampusComment on above:Performed By: #### ERUR #### [facility] [address] [address] [address] Anna Gomez (U)CLEARNormalCLEARTrinity Health System East CampusComment on above: Performed By: #### ERUR #### [facility] [address] [address] [address] Anna Lezama (U)YELLOWNormalYELLOWTrinity Health System East CampusComment on above: Performed By: #### ERUR #### [facility] [address] [address] [address] Anna Karimi micrscopic examination will be performed if indicated. NormalThe [facility] DaytonComment on above:Performed By: #### ERUR #### [facility] [address] [place] [address] Dr. Anna RomeroGlucose Ql (U)NegativeNormalNEGATIVETrinity Health System East CampusComment on above:Performed By: #### ERUR #### [facility] [address] [place] [address] Dr. Anna RomeroHemoglobin Ql (U)NegativeNormalNEGATIVEChildren'S Hospital For Rehabilitation on above:Performed By: #### ERUR #### [facility] [address] [place] [address] Dr. Anna RomeroKetones Ql (U)NegativeNormalNEGATIVETrinity Health System East CampusComment on above:Performed By: #### ERUR #### [facility] [address] [place] [address] Dr. Anna RomeroLEUKOCYTESNegativeNormalNEGATIVETrinity Health System East CampusComment on above:Performed By: #### ERUR #### [facility] [address] [place] [address] Dr. Anna RomeroNitrite Ql (U)NegativeNormalNEGATIVETrinity Health System East CampusComment on above:Performed By: #### ERUR #### [facility] [address] [place] [address] Dr. Anna RomeropH (U)6.5 [pH]Normal5-9Tr[facility] System East CampusComment on above: Performed By: #### ERUR #### [facility] [address] [place] [address] Dr. Anna RomeroSPEC GRAVITY1.415Rfsksn1.005-<=1.025Tr[facility] Health System East CampusComment on above:Performed By: #### ERUR #### [facility] [address] [place] [address] Dr. Anna RomeroUA PROTEINTRACENormalNEGATIVE/ TRACEThe [facility] DaytonComment on above:Performed By: #### ERUR #### [facility] [address] [place] [address] Dr. Anna Esparza MICRO INDNOT INDICATEDNormalThe [facility] DaytonComment on above:Performed By: #### ERUR #### [facility] [address] [place] [address] Dr. Anna RomeroUrobilinogen Qn (U)0.2 {Joel'U}/dLNormal0.2 - 1.0The [facility] DaytonComment on above:Performed By: #### ERUR #### [facility] [address] [place] [address] Dr. Anna RomeroGROUP A STREP CULTUREon 01-08-2023S. pyogenes Ag Ql (Unsp spec) Culture Observations: NEGATIVE FOR GROUP A STREPTOCOCCUS.NormalThe [facility] DaytonComment on above: Performed By: #### SSCRN, GRASTCX #### [facility] [address] [place] [address] Dr. Anna RomeroSTREPT SCREENon 63-33-7527IZIEW SCREEN ANegativeNormalNEGATIVEThe [facility] DaytonComment on above:Performed By: #### SSCRN, GRASTCX #### [facility] [address] [place] [address] Dr. Anna RomeroSYMPTOMATIC COVID-19 ANTIGENon 73-27-5320IMK StatementSEE BELOW NormalThe [facility] St[facility] Vincent Medical Centerment on above:Result Comment: This test has not been FDA [...] declaration is terminated or authorization is revoked sooner.Performed By: #### SSCREleanor GRASTCX #### [facility] [address] [place] [address] Dr. Anna PennyRS-CoV-2 (COVID-19) RNA DAYV+probe Ql (Unsp spec)Positive AbnormalNEGATIVEThe [facility] DaytonComment on above:Performed By: #### GAYLEREleanor GRASTCX #### [facility] [address] [place] [address] Dr. Anna Welsh PREG TVon 00-72-9690VY PREG TVEXAMINATION: US PREG TV HISTORY: Irregular periods COMPARISON: [...] Electronically authenticated by: GENI CABRAL Date: 2022-05-31 19:46NormalThe Keaau HospitalBILIRUBIN TOTALon 91-70-1036Yggxxukru [Mass/Vol]0.3 mg/dLNormal 0.2-1.0The [facility] DaytonComment on above:Performed By: #### TBIL #### [facility] [address] [place] [address] Dr. Anna RomeroCBC AUTO DIFFon 50-14-5056BAUD #0.0 103/ulNormal0.0-0.1The [facility] DaytonComment on above:Performed By: #### CBC #### [facility] [address] [place] [address] Dr. Anna RomeroBasophils/100 WBC (Bld)0.4 %Normal0.2-2.0The [facility] Comment on above:Performed By: #### CBC #### [facility] [address] [place] [address] Dr. Anna Davis #0.0 103/ulNormal0.0-0.7The [facility] DaytonComment on above: Performed By: #### CBC #### [facility] [address] [place] [address] Dr. Anna Renteriaosinophils/100 WBC (Bld)0.2 %Critically low0.9-7.0The [facility] DaytonComment on above:Performed By: #### CBC #### [facility] [address] [place] [address] Dr. Anna Renteriarythrocyte distribution width (RBC) [Ratio]12.8 %Edjjwa22.0-15.0 The [facility] DaytonComment on above:Performed By: #### CBC #### [facility] [address] [place] [address] Dr. Anna RomeroHematocrit (Bld) [Volume fraction]39.2 %Yrzhlw66.0-48.0The [facility] DaytonComment on above:Performed By: #### CBC #### [facility] [address] [place] [address] Dr. Anna RomeroHemoglobin (Bld) [Mass/Vol]12.9 g/qMBltjtt40.0-16.0The [facility] DaytonComment on above:Performed By: #### CBC #### [facility] [address] [place] [address] Dr. Anna Cardoza #0.01 10e3/ulNormal0.00-0.03The [facility] DaytonComment on above:Performed By: #### CBC #### [facility] [address] [place] [address] Dr. Anna Cardoza %0.2 %Normal0.0-0.5The [facility] DaytonComment on above: Performed By: #### CBC #### [facility] [address] [place] [address] Dr. Yilan ChangLYMPH #1.6 103/ulNormal1.2-3.8The [facility] DaytonComment on above:Performed By: #### CBC #### [facility] [address] [place] [address] Dr. Anna Schmidtmphocytes/100 WBC (Bld)29.8 %Fhjuef93.5-60.0The [facility] DaytonComment on above:Performed By: #### CBC #### [facility] [address] [place] [address] Dr. Anna Swain DIFF REQNONormalThe [facility] DaytonComment on above: Performed By: #### CBC #### [facility] [address] [place] [address] Dr. Anna Flores (RBC) [Entitic mass]31.8 gkRfemrk40.7-34.0The [facility] DaytonComment on above:Performed By: #### CBC #### [facility] [address] [place] [address] Dr. Anna Flores (RBC) [Mass/Vol]32.9 g/fVFkglzv90.9-35.2The [facility] DaytonComment on above:Performed By: #### CBC #### [facility] [address] [place] [address] Dr. Anna Anderson (RBC) [Entitic vol]96.6 lJXqbmlj48.0-99.0The [facility] DaytonComment on above:Performed By: #### CBC #### [facility] [address] [place] [address] Dr. Anna Alamo #0.4 103/ulNormal0.3-0.8The [facility] DaytonComment on above:Performed By: #### CBC #### [facility] [address] [place] [address] Dr. Anna Parksocytes/100 WBC (Bld)7.2 %Normal1.7-12.0The [facility] Comment on above:Performed By: #### CBC #### [facility] [address] [place] [address] Dr. Anna Jasso #3.3 103/ulNormal1.4-6.5The [facility] DaytonComment on above:Performed By: #### CBC #### [facility] [address] [place] [address] Dr. Anna Hirschutrophils/100 WBC (Bld)62.2 %Bvgstd18.0-75.0The [facility] DaytonComment on above:Performed By: #### CBC #### [facility] [address] [place] [address] Dr. Anna RomeroPlatelet mean volume (Bld) [Entitic vol]10.0 fLNormal9.5-13.5The [facility] DaytonComment on above:Performed By: #### CBC #### [facility] [address] [place] [address] Dr. Anna RomeroPLT153 103/ocYswgyn750-812Pgm [facility] DaytonComh[facility]zel [facility] on above: Performed By: #### CBC #### [facility] [address] [place] [address] Dr. Anna RomeroRBC4.06 106/ulCritically low4.20-5.40The [facility] DaytonComment on above:Performed By: #### CBC #### [facility] [address] [place] [address] Dr. Anna RomeroWBC5.3 103/ulNormal4.0-11.0The [facility] DaytonComhutzel [facility] on above: Performed By: #### CBC #### [facility] [address] [place] [address] Dr. Anna Rockwell T3on 74-30-7915JGKK T33.18 pg/mlLNormal2.18-3.98The [facility] DaytonComh[facility]zel [facility] on above:Performed By: #### SSCRN GRASTCX #### [facility] [address] [place] [address] Dr. Anna Rockwell T4on 48-62-4057Qpaf T4 [Mass/Vol]1.08 ng/dLNormal0.76-1.46 The [facility] DaytonComment on above:Performed By: #### FT4 #### [facility] [address] [place] [address] Dr. Anna RomeroPROF 14(COMP METB)on 80-88-3271Wzwmjqs [Mass/Vol]4.3 g/dLNormal 3.4-5.0The [facility] DaytonComment on above:Performed By: #### SSCRN, GRASTCX #### [facility] [address] [place] [address] Dr. Anna RomeroAlbumin/Globulin [Mass ratio]1.2 {ratio}NormalThe [facility] DaytonComment on above:Performed By: #### SSCRN, GRASTCX #### [facility] [address] [place] [address] Dr. Anna Santos [Catalytic activity/Vol]60 U/ALkguux50-900Uez [facility] DaytonComment on above:Performed By: #### SSCRN, GRASTCX #### [facility] [address] [place] [address] Dr. Anna Brink [Catalytic activity/Vol]25 U/MMaybvq03-98Wsw [facility] DaytonComment on above:Performed By: #### SSCRN, GRASTCX #### [facility] [address] [place] [address] Dr. Anna Williamson gap [Moles/Vol]13.8 mmol/LNormalThe [facility] Comment on above:Performed By: #### SSCRN, GRASTCX #### [facility] [address] [place] [address] Dr. Anna RomeroAST [Catalytic activity/Vol]21 U/QGunfxj74-64Ech [facility] DaytonComment on above:Performed By: #### SSCRN, GRASTCX #### [facility] [address] [place] [address] Dr. Anna RomeroCalcium [Mass/Vol]9.4 mg/dLNormal8.5-10.1The [facility] Comment on above:Performed By: #### SSCRN, GRASTCX #### [facility] [address] [place] [address] Dr. Anna RomeroChloride [Moles/Vol]101 mmol/VLrgtww42-780Wfb [facility] Comment on above:Performed By: #### SSCRN, GRASTCX #### [facility] [address] [address] [address] Anna RomeroCO2 [Moles/Vol]26.8 mmol/CVpetaw79.0-32.0The [facility] Comment on above:Performed By: #### SSCRN, GRASTCX #### [facility] [address] [address] [address] Anna RomeroCreatinine [Mass/Vol]0.87 mg/dLNormal0.55-1.02The [facility] DaytonComment on above:Performed By: #### SSCRN, GRASTCX #### [facility] [address] [address] [address] Castillo ChangEGFR-AF CZECH>60Normal>=60The [facility] DaytonComment on above:Performed By: #### SSCRN, GRASTCX #### [facility] [address] [address] [address] Anna RenteriaGFR-NON AF CZECH>60Normal>=60The [facility] DaytonComment on above:Performed By: #### SSCRN, GRASTCX #### [facility] [address] [address] [address] Anna RomeroGlobulin (S) [Mass/Vol]3.5 g/dLNormalThe [facility] DaytonComment on above:Performed By: #### SSCRN, GRASTCX #### [facility] [address] [address] [address] Anna RomeroGlucose [Mass/Vol]80 mg/yPFffucl69-217Gjg [facility] Comment on above:Performed By: #### SSCRN, GRASTCX #### [facility] [address] [address] [address] Anna RomeroPotassium [Moles/Vol]3.6 mmol/LNormal3.5-5.1The [facility] Comment on above:Performed By: #### SSCRN, GRASTCX #### [facility] [address] [place] [address] Dr. Anna RomeroProtein [Mass/Vol]7.8 g/dLNormal6.4-8.2The [facility] Comment on above:Performed By: #### SSCRN, GRASTCX #### [facility] [address] [place] [address] Dr. Anna RomeroSodium [Moles/Vol]138 mmol/SKqtjmi088-956Gkm [facility] Comment on above:Performed By: #### SSCREleanor, GRASTCX #### [facility] [address] [place] [address] Dr. Anna RomeroUrea nitrogen [Mass/Vol]12.0 mg/dLNormal7.0-18.0[facility] CampusComment on above:Performed By: #### GAYLEREleanor GRASTCX #### [facility] [address] [place] [address] Dr. Anna Buenrostro nitrogen/Creatinine [Mass ratio]13.8 mg/mgNoTrinity Health System Twin City Medical CenterComment on above:Performed By: #### GAYLEREleanor GRASTCX #### [facility] [address] [place] [address] Dr. Anna Marshall 57-02-0453CMA5.442 uIU/mLNormal0.358-3.740Tr[facility] East CampusComment on above:Performed By: #### GAYLEREleanor, GRASTCX #### [facility] [address] [place] [id number] Dr[address] Anna Gu [facility] BELOWProMedica Toledo HospitalComment on above: Result Comment: <0.34 UIU/ml HYPERTHYROID 0.34-5.60 UIU/ml EUTHYROID >5.60 UIU/ml HYPOTHYROIDPerformed By: #### SSCRN, GRASTCX #### [facility] [address] [place] [address] Dr. Anna Romero Vital Signs Date TimeVital SignValuePerforming JghhsmikaDhisectg02-78-1488 10:14-0400Body mass index (BMI) [Ratio]25.74 kg/m2Rosana Galeanoey PA Work Phone: 1([phone] [place], [place] [address]Dcwjgvabrm24-22-7225 10:14-0400Body qhtnuh92.35 kgAmy Poughkeepsie PA Work Phone: [phone] [place], [place] [address]Yeuhnogkew47-55-6891 10:14-0400Diastolic blood utwrvxzj55 mm[Hg]Rosana Galeanoey PA Work Phone: 1(419)649-[address] [place], [place] [address]Tepielzprd01-29-9601 10:14-0400Systolic blood rqdumwya841 mm[Hg]Rosana Marcano PA Work Phone: [phone])[address] [place], [place] 6485710-08-2025 10:08-0400Body mass index (BMI) [Ratio]24.29 kg/w8ZosacwksDrew Solorio CANCELING MACHINE OPERATOR Work Phone: [phone])984-[address] [place], [place] [address]Vfxotuxbhe30-05-9775 10:08-0400Body .27 kgDrew Solorio CANCELING MACHINE OPERATOR Work Phone: [phone])[address] [place], [place] 6485710-08-2025 10:08-0400Diastolic blood verpsgmv20 mm[Hg]Drew Solorio CANCELING MACHINE OPERATOR Work Phone: [phone])[address] [place], [place] 6485710-08-2025 10:08-0400Systolic blood tybjwqkw182 mm[Hg]Drew Solorio CANCELING MACHINE OPERATOR Work Phone: [phone])[address] [place], [place] 6485709-09-2025 09:58-0400Body mass index (BMI) [Ratio]23.91 kg/x0Popfu Nii DO Work Phone: 1(419)[address] [place], [place] 6485709-09-2025 09:58-0400Body rmatwn89.19 kgCorey Nii DO Work Phone: [phone])[facility] [place], [place] [address]Rcfygvnvym56-93-7309 09:58-0400Diastolic blood dthsuuzx87 mm[Hg]Marco Nii DO Work Phone: 1([phone] [place], [place] [address]Nzcwvhpavp55-25-6854 09:58-0400Systolic blood zpnicjjp768 mm[Hg]Marco Nii DO Work Phone: 1(419)[address] [place], [place] 6485708-12-2025 10:15-0400Body mass index (BMI) [Ratio]22.4 kg/k8Ggagn Nii DO Work Phone: [phone] [place], [place] [address]Tstnmjtpcc28-78-6269 10:15-0400Body shulap04.96 kgCorey Nii DO Work Phone: 1(287)[facility] [place], [place] [address]Aaqbahuesg21-34-4049 10:15-0400Diastolic blood nfwnwwqe06 mm[Hg]Marco Nii DO Work Phone: 1(465)[facility] [place] [address]-12-2025 10:15-0400Systolic blood qzowwbba110 mm[Hg]Marcoector Bales DO Work Phone: [phone])[address] [place], [place] 6485708-01-2025 11:07-0400Body mass index (BMI) [Ratio]21.79 kg/b6VimxgM[facility]08-01-2025 11:07-0400Body weight 61.24 kgM[facility]onides [facility]02-14-2024 14:46-0500Body mass index (BMI) [Ratio]25.66 kg/m2Amy Krys HAYES Work Phone: 1(823)300-[address] [place], [place] [address]Naaqpypxvc81-03-1581 14:46-0500Body .12 kgRosana Marcano PA Work Phone: 1(140)[facility] [place], [place] [address]Tfreepobrc49-94-3659 14:46-0500Diastolic blood bajlwepu40 mm[Hg]Rosana HAYES Work Phone: 1(687)358-[address] [place], [place] [address]Eqmieomyxk43-17-9596 14:46-0500Systolic blood vjbfoxrz074 mm[Hg]Rosana HAYES Work Phone: 1(814)314-[address] [place], [place] [address]Cbtyenrwfo99-98-1267 12:21-0500Body qydcgs746.2 cmHaseeb Nice MD Work Phone: 1(037)826-[address] [place], [place] 1882401-03-2024 12:21-0500Body mass index (BMI) [Ratio]22.55 kg/m2Haseeb Nice MD Work Phone: [facility]-2024 12:21-0500Body vkhgov60.32 kgHaseeb Nice MD Work Phone: 1(830)027-[address] [place], [place] 1882401-03-2024 12:21-0500Diastolic blood uiqcgkqi31 mm[Hg]Haseeb Nice MD Work Phone: 1(725)856-[address] [place], [place] 1882401-03-2024 12:21-0500Heart rate 79 /minHaseeb Nice MD Work Phone: 1(679)595-[address] [place], [place] 9[address]0101-03-2024 12:21-0500Systolic blood palrclfy029 mm[Hg]Haseeb Nice MD Work Phone: [phone] Encounters Encounter DateEncounter TypeCare ProviderFacilityStart: 08-09-2025 End: 11-84-6714Feebeptacos HAYES Work Phone: [facility]BGYNStart: 08-09-2025 End: 74-91-7982Dmkbsitacos HAYES Work Phone: [facility]BGYNStart: 08-09-2025 End: 02-57-8374selmswcyddBHQ RAMEYNot AvailableStart: 08-09-2025 End: 46-93-7056Xievvx outpatient visit 15 minutesRosana HAYES Work Phone: [facility]andace OBGYNComment on above: size inconsistent with dates ([facility]) (Primary Dx); Third trimester ([facility]); 29 weeks gestation of ([facility]); History of miscarriage; History of oligohydramnios; Thyroid disease; Acquired autoimmune hypothyroidismStart: 07-21-2025 End: 31-58-5056Ptezys Jaja Solorio CANCELING MACHINE OPERATOR Work Phone: [facility] [place] [facility]BGYNStart: 07-21-2025 End: 24-14-1741Cgtbpj Jaja Solorio CANCELING MACHINE OPERATOR Work Phone: [facility]BGYNStart: 07-21-2025 End: 52-27-4005sbuotyrognQUVLSEIJ EBERLYNot AvailableStart: 07-21-2025 End: 67-63-4815Qmhumd outpatient visit 15 minutesDrew Solorio CANCELING MACHINE OPERATOR Work Phone: NONI K[facility]ace OBGYNComment on above:Acquired autoimmune hypothyroidism (Primary Dx); Second trimester ([facility]); 26 weeks gestation of ([facility]); Depression affecting ([facility])Start: 06-22-2025 End: 49-71-1655Ihzwkd flowsheetCorey Nii DO Work Phone: [facility] [place] [facility]BGYNStart: 06-22-2025 End: 68-65-5081Zfgptz flowsheetCorey Nii DO Work Phone: NOFB [facility] OBGYNStart: 06-22-2025 End: 21-67-1632Wrnqvb outpatient visit 15 minutesCorey Nii DO Work Phone: NOBB [facility]ace OBGYNComment on above:22 weeks gestation of ([facility]); Second trimester ([facility]); Thyroid disease ; Diabetes mellitus screeningStart: 06-22-2025 End: 90-16-2744ytddcpuwkeVGFEZ FAZIONot AvailableStart: 06-09-2025 End: 21-26-2537Jvdomttaz Result EncounterCorey Nii DO Work Phone: noms External Department UnsolicitedStart: 06-09-2025 End: 01-24-6096Qkmvmbetp Result EncounterCorey Nii DO Work Phone: noms External Department UnsolicitedStart: 06-09-2025 End: 40-18-2276ielzlurexkYJIOZ FAZIONot AvailableStart: 05-25-2025 End: 32-97-5158Lstjma flowsheetCorey Nii DO Work Phone: [facility] [place] [facility]BGYNStart: 05-25-2025 End: 54-42-8701Ylygyk flowsheetCorey Nii DO Work Phone: [facility] [place] OBGYNStart: 05-25-2025 End: 38-17-9155Lvsjeftji Result EncounterCorey Nii DO Work Phone: noms External Department UnsolicitedStart: 05-25-2025 End: 36-64-8547Epsinqct Result EncounterCorey Nii DO Work Phone: noms External Department UnsolicitedStart: 05-25-2025 End: 09-51-6059Reiqrhc encounter procedureCorey Nii DO Work Phone: noms HealthcareStart: 05-25-2025 End: 82-47-5074Ghqzfrxn preventive med est patient 18-39 yrsCorey Nii DO Work Phone: NOEL [facility] OBGYNComment on above:18 weeks gestation of ([facility]); Second trimester ([facility]); Well woman exam with routine gynecological exam; Screening, , for anatomic survey ([facility]); Exposure to STD; Vaginal discharge; Thyroid diseaseStart: 05-25-2025 End: 56-23-8565hwhikdpotdAZZXE FAZIONot AvailableStart: 05-14-2025 End: 88-22-0378Sgyrcr outpatient visit 5 minutesFazio Nurse Noms Kristen Meyers [place] OBGYNComment on above:[place]: 91g5yCwejw: 05-14-2025 End: 87-89-1887nyavfuoinyVBCML FAZIONot AvailableStart: 02-10-2024 End: 41-77-0397Csvappudn Result EncounterCorey Nii DO Work Phone: noms External Department UnsolicitedStart: 02-10-2024 End: 80-54-1816Svwbuxtnr Result EncounterCorey Nii DO Work Phone: noms External Department UnsolicitedStart: 02-04-2024 End: 04-41-8430Knpzrvbkq Result EncounterCorey Nii DO Work Phone: noms External Department UnsolicitedStart: 02-04-2024 End: 01-98-1395Zedbmdqmc Result EncounterCorey Nii DO Work Phone: noms External Department UnsolicitedStart: 01-27-2024 End: 91-71-3522Cdhvaishk Result EncounterCorey Nii DO Work Phone: NOPS External Department UnsolicitedStart: 01-27-2024 End: 03-00-0817Mvqswzjde Result EncounterCorey Nii DO Work Phone: NODH External Department UnsolicitedStart: 01-21-2024 End: 39-02-3418Vznftvvbh Result EncounterCorey Nii DO Work Phone: NOOJ External Department UnsolicitedStart: 01-21-2024 End: 91-07-0272Dheflkxrb Result EncounterCorey Nii DO Work Phone: NOGC External Department UnsolicitedStart: 01-13-2024 End: 48-25-9095Tqbrqggnw Result EncounterCorey Nii DO Work Phone: NOBG External Department UnsolicitedStart: 01-13-2024 End: 18-54-8210Ijicacbjc Result EncounterCorey Nii DO Work Phone: NOSV External Department UnsolicitedStart: 01-07-2024 End: 97-56-0720Jptupzofn Result EncounterCorey Nii DO Work Phone: NOCT External Department UnsolicitedStart: 01-07-2024 End: 23-95-6838Wsajvgjrv Result EncounterCorey Nii DO Work Phone: NOKI External Department UnsolicitedStart: 12-30-2023 End: 46-78-7471Yshtuvouu Result EncounterCorey Nii DO Work Phone: NOMI External Department UnsolicitedStart: 12-30-2023 End: 23-90-6318Egmrkjdyf Result EncounterCorey Nii DO Work Phone: NOMJ External Department UnsolicitedStart: 12-23-2023 End: 88-55-2235Fzuavvbin Result EncounterCorey Nii DO Work Phone: noms External Department UnsolicitedStart: 12-23-2023 End: 64-73-1576Xqclmsroq Result EncounterCorey Nii DO Work Phone: noms External Department UnsolicitedStart: 12-16-2023 End: 99-37-2202Kynclrfnj Result EncounterCorey Nii DO Work Phone: noms External Department UnsolicitedStart: 12-16-2023 End: 23-99-0508Jywtlvkcj Result EncounterCorey Nii DO Work Phone: noms External Department UnsolicitedStart: 12-09-2023 End: 89-18-2791Ctnmpiqkh Result EncounterCorey Nii DO Work Phone: noms External Department UnsolicitedStart: 12-09-2023 End: 55-90-3705Jajfiwwbq Result EncounterCorey Nii DO Work Phone: noms External Department UnsolicitedStart: 11-27-2023 End: 67-16-5217Oletgq outpatient visit 15 minutesAmy Krys HAYES Work Phone: noms BCP OBComment on above:Second trimester ; with normal glucose tolerance test (GTT); Diabetes mellitus screening; History of miscarriage; History of oligohydramniosStart: 11-19-2023 End: 61-19-0871wzpuixrcehWTQRO R [facility] Hospitaltart: 10-29-2023 End: 31-61-0498rotpzqodruOOVFU R [facility] Hospitaltart: 87-54-9926Odohyswcnrphh procedureHaseeb Nice MD Work Phone: [phone]-Sqveb Medicine at [facility] Comment on above:History of oligohydramnios in prior , currently (Primary Dx); 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; History of delivery, currently Start: 48-67-7747Xxesyljyo encounterRachelle Mullen LPNMaternal- Medicine at [facility] Start: 26-14-5051Asgug abstractingAliya Rollins MD Work Phone: [phone]-Zukdc Medicine at [facility] Start: 17-39-3197Rlpkdf OnlyMarderrick Rodriguez CMAMaternal- Medicine at [facility] HospitalComment on above:History of oligohydramnios in prior , currently (Primary Dx)Start: 10-16-2023 End: 66-76-3061lngnvbrzznEGEHK R FATrinity Health System [facility] Campus HospitalStart: 10-16-2023 End: 02-47-6020Zrgotc outpatient new 45 minutesHind Darius Nice MD Work Phone: [phone]-Bgjqt Medicine at [facility] Comment on above:High-risk in second trimester (Primary Dx); History of oligohydramnios in prior , currently ; 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; 20 weeks gestation of pregnancyStart: 02-69-7036Xkmao abstractingScanning Provider ExternalMaternal- Medicine at [facility] Health Systemtart: 01-28-2023 End: 05-74-4104nacwforahzIF MARCO NII .Facility:H9Zwqgy: 01-23-2023 End: 43-72-2775zhoxfijtihQH MARCO NII .Facility:H3Inxpv: 01-22-2023 End: 72-00-1397anjwavatbwDKIDNB DIAB .Facility:Z6Pgmtz: 01-21-2023 End: 38-78-0828myswtgwmzfUNBFLCX D KATKOFacility:M4Dlkig: 01-08-2023 End: 12-44-5888pabdlsgpcjLA DEBBIE Mohan REINECKFacility:K7Fiypd: 10-20-2022 End: 60-57-1816meruvfcyfsVPNITPX D KATKOFacility:Z3Cmghu: 61-41-7504fgmghijaygZU MARCO NII .Facility:F2Bbxzv: 05-31-2022 End: 22-07-4313iywxdrhtmsPT MARCO NII .Facility:P4Nytel: 35-84-2232hwfcnjkhvf DR FRASER NII .Facility:O3Svwux: 03-16-2022 End: 08-31-4627mjxlelycfpNK KIM E KNIGHT .Facility:J7Ahubl: 03-03-2022 End: 25-42-3059ujczvwcmwqLTIBRNW D CONNIEcility:H1 Procedures DateProcedureProcedure DetailPerforming ClinicianStart: 25-88-3544Kfsxc dip stick/tablet rgnt non-auto w/o micrscpAmy Krys PA Work Phone: Start: 92-88-8098Ugnjn dip stick/tablet rgnt non-auto w/o micrscpKrotilia Solorio NP Work Phone: Start: 39-35-4481Gpmzz dip stick/tablet rgnt non-auto w/o micrscpCorey Nii DO Work Phone: Start: 09-01-4465BYS CBC WITH AUTO DIFFCorey Nii DO Work Phone: Start: 71-72-3499TKLOGNZTU VAGINITIS (HTRX)Marco Nii DO Work Phone: Start: 60-23-6571Xemjh dip stick/tablet rgnt non-auto w/o micrscpCorey Nii DO Work Phone: Start: 82-96-1870VFC,APTIMA HPV,AGE GDLNCorey Nii DO Work Phone: Start: 89-52-3836Mykdckrplxx observation [Identifier] in Cervix by Cyto stainCorey Nii DO Work Phone: Start: 05-14-2025 End: 74-05-1707Hqpdd dip stick/tablet rgnt non-auto w/o micrscpCorey Nii DO Work Phone: Start: 90-06-6174JV OB BPP W NON-STRESSCorey Nii DO Work Phone: Start: 30-38-4284BP OB GROWTHCorey Nii DO Work Phone: Start: 56-80-7813DS OB BPP W NON-STRESSCorey Nii DO Work Phone: Start: 85-48-3702OW OB BPP W NON-STRESSCorey Nii DO Work Phone: Start: 74-58-5882OH OB BPP W NON-STRESSCorey Nii DO Work Phone: Start: 23-06-3342TG OB BPP W NON-STRESSCorey Nii DO Work Phone: Start: 60-39-2320YJC CBC WITH AUTO DIFFRosana HAYES Work Phone: Start: 20-72-3542ZQSTQSF 1 HOURAmy Krys HAYES Work Phone: Start: 71-49-2602OP OB BPP W NON-STRESSCorey Nii DO Work Phone: Start: 62-74-0278VX OB GROWTHCorey Nii DO Work Phone: Start: 50-67-5080GC OB BPP W NON-STRESSCorey Nii DO Work Phone: Start: 41-19-9703JA OB BPP W NON-STRESSCorey Nii DO Work Phone: Start: 35-71-1586JY OB BPP W NON-STRESSCorey Nii DO Work Phone: Start: 83-69-1436YV OB GROWTHCorey Nii DO Work Phone: Start: 07-75-9167BB OB BPP W NON-STRESSCorey Nii DO Work Phone: Start: 80-24-1736Fgqan dip stick/tablet rgnt non-auto w/o micrscpAmy Krys HAYES Work Phone: Start: 43-85-8015Vyqmhiqknkg observation [Identifier] in Cervix by Cyto Jennifer Ob Plan of Treatment DateCare ActivityDetailAuthorStart: 18-54-8908MJaH,Tdap and Td Vaccines (9 - Td or Tdap)DTaP,Tdap and Td Vaccines (9 - Td or Tdap)[facility] SystemStart: 77-08-8465Ydjcyioct for malignant neoplasm of cervixNOMS HealthcareStart: 19-72-1339Cztrnlokp for malignant neoplasm of cervixPap SmearNONV Healthcare Start: 08-23-2025 End: 54-20-9809Qahaowe encounter rwczcyzbi58/10/2025 11:00 AM EST Routine [facility] [address] [place] [address] Marco Bales DO [address] [place] [address] NOMJovany [place] OBGYNStart: 08-23-2025 End: 42-41-8096Ahecphmgnead / ancillary services axyfnpzbwb87/10/2025 10:30 AM EST Ancillary Procedure [facility] [address] [place] [address] [phone] [facility] OBGYNStart: 08-09-2025 End: 78-39-9460ZI for pregnancyUS OB follow up transabdominal approach Imaging Routine History of miscarriage History of oligohydramnios Thyroid disease Expected: 08/09/2025, Expires: 12/10/2025NONV HealthcareComment on above: Expected: 08/09/2025, Expires: 12/10/2025Start: 08-03-2025 End: 84-31-1627Ujswdau encounter avnnwjzja47/21/2025 1:20 PM EDT Routine [facility] [place] [facility] [address] [place], [place] Rosana Marcano PA [address] [place] [address] KEEGAN [place] OBGYNStart: 07-21-2025 End: 02-06-5234Snqvpwn encounter jsbwingvc65/08/2025 10:00 AM EDT Routine NOMJovany DIETZ [address] [place] [address] Drew Solorio, GIOVANI [address] [place] [address] NOMJovany [place] OBGYNStart: 06-22-2025 End: 09-78-9228YRP panel - Blood by Automated countCBC Lab Routine Diabetes mellitus screening Expected: 06/22/2025 (Approximate), Expires: 06/22/2026NONV Healthcare Work Phone: comment on above:Expected: 06/22/2025 (Approximate), Expires: 06/22/2026Start: 06-22-2025 End: 60-37-2282Fpipommbnos of glucose 1 hour after glucose challenge for glucose tolerance testGlucose tolerance, 1 hour Lab Routine Diabetes mellitus screening Expected: 06/22/2025 (Approximate), Expires: 06/22/2026NONV HealthcareComment on above:Expected: 06/22/2025 (Approximate), Expires: 06/22/2026Start: 06-22-2025 End: 26-46-7426Brdzpjb encounter procedureNOMS Kandace OBGYNComment on above: ArrivedStart: 45-61-5167BPVZT-19 Vaccine ( season)COVID-19 Vaccine ( season)[facility]OMS HealthcareStart: 10-63-9454Dgmhfutyd vaccinationInfluenza Vaccine (#1)[facility]OM[facility] HealthcareStart: 06-09-2025 End: 91-09-7962Gralzszvblrm / ancillary services owjuvfhajq98/27/2025 11:00 AM EDT Ancillary Procedure KEEGAN DIETZ [address] [facility] [place] [address] KEEGAN eJronimo OBGYNStart: 05-25-2025 End: 98-95-1547Hxtir fetoprotein, maternalAlpha fetoprotein, maternal Lab Routine 18 weeks gestation of ([facility]) Second trimester ([facility]) Expected: 05/25/2025 (Approximate), Expires: 07/25/2025[facility] Healthcare Comment on above:Expected: 05/25/2025 (Approximate), Expires: 07/25/2025Start: 05-25-2025 End: 61-70-7553Tuumtuzpvvr [Units/volume] in Serum or PlasmaTSH Lab Routine Thyroid disease Expected: 05/25/2025 (Approximate), Expires: 05/25/2026NONV HealthcareComment on above:Expected: 05/25/2025 (Approximate), Expires: 05/25/2026Start: 05-25-2025 End: 92-26-7289UA for pregnancyUS OB 14+ weeks anatomy scan Imaging Routine Screening, , for anatomic survey ([facility]) Expected: 05/25/2025, Expires: 08/25/2025[facility] HealthcareComment on above:Expected: 05/25/2025, Expires: 08/25/2025Start: 05-25-2025 End: 05-67-2767Ihslaqc encounter procedureNOMS Kandace OBGYNComment on above: ArrivedStart: 05-14-2025 End: 84-43-1816QMU/RhABO/Rh Lab Routine Missed menses , unspecified gestational age ([facility]) Expected: 05/14/2025 (Approximate), Expires: 05/14/2026[facility] HealthcareComment on above:Expected: 05/14/2025 (Approximate), Expires: 05/14/2026Start: 05-14-2025 End: 20-71-7856Trein type and Indirect antibody screen panel - BloodType and screen Lab Routine Missed menses , unspecified gestational age ([facility]) Expected: 05/14/2025 (Approximate), Expires: 05/14/2026[facility] Healthcare Work Phone: comment on above:Expected: 05/14/2025 (Approximate), Expires: 05/14/2026Start: 05-14-2025 End: 26-55-8697Fczba of abuse panel - Urine by Screen methodRapid drug screen, urine Lab Routine , unspecified gestational age ([facility]) Encounter for supervision of normal first in first trimester ([facility]) Expected: 05/14/2025 (Approximate), Expires: 05/14/2026NONV HealthcareComment on above: Expected: 05/14/2025 (Approximate), Expires: 05/14/2026Start: 10-22-2024 End: 13-06-3854HT MFM with or without consultUS MFM with or without consult Imaging Routine History of oligohydramnios in prior , currently 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 History of delivery, currently Expected: 10/22/2024 (Approximate), [facility]24[facility] Work Phone: comment on above:Expected: 10/22/2024 (Approximate), Expires: 10/22/2024Start: 10-17-2024 End: 94-02-8281EM MFM with or without consultUS MFM with or without consult Imaging Routine History of oligohydramnios in prior , currently Expected: 10/17/2024 (Approximate), Expires: 10/17/2024[facility] Work Phone: Comment on above:Expected: 10/17/2024 (Approximate), Expires: 10/17/2024Start: 60-22-2949Dvvoa BMI ScreeningAdult BMI Screening [facility] SystemStart: 85-44-7557Exnbumy ScreeningTobacco Screening [facility] SystemStart: 12-11-2023 End: 75-65-0985Vbmoexo encounter qaauzrftf41/28/2024 10:20 AM EST Routine [facility] [address] [facility] [place] [address] Marco Bales, DO [address] [place], [place] [id number] NOMS BCP OBStart: 11-27-2023 End: 29-82-9951GLD panel - Blood by Automated countCBC Lab Routine Diabetes mellitus screening Expected: 11/27/2023 (Approximate), Expires: 11/27/2024[facility] Work Phone: comment on above:Expected: 11/27/2023 (Approximate), Expires: 11/27/2024Start: 11-27-2023 End: 09-18-1185Xjqdeuesbqi of glucose 1 hour after glucose challenge for glucose tolerance testGlucose tolerance, 1 hour Lab Routine Diabetes mellitus screening Expected: 11/27/2023 (Approximate), Expires: 11/27/2024[facility] HealthcareComment on above:Expected: 11/27/2023 (Approximate), Expires: 11/27/2024Start: 11-27-2023 End: 08-18-4127BE biophysical profile w non stress testUS biophysical profile w non stress test Imaging Routine History of miscarriage History of oligohydramnios Expected: 11/27/2023 (Approximate), Expires: 11/27/2024[facility] HealthcareComment on above:Expected: 11/27/2023 (Approximate), Expires: 11/27/2024Start: 11-27-2023 End: 16-43-4018XE for pregnancyUS OB SCAN FOR GROWTH Imaging Routine History of miscarriage History of oligohydramnios Expected: 11/27/2023 (Approximate), Expires: 11/27/2024[facility] HealthcareComment on above:Expected: 11/27/2023 (Approximate), Expires: 11/27/2024Start: 11-19-2023 End: 00-48-4700Ekgkyrh encounter ulciehcsf15/06/2024 9:15 AM EST Appointment [facility] [address] [place] [address] UlrFrwhujMain Campus Medical Center - UltrasoundStart: 10-29-2023 End: 83-05-0048Vbuofiq encounter jbjovhypm53/16/2024 9:15 AM EST Appointment [facility] [address] [place] [address] BtvGbtwbnMain Campus Medical Center - UltrasoundStart: 10-16-2023 End: 37-39-5013Qcjxrkv encounter zsmlswriy46/03/2024 1:00 PM EST Office Visit Maternal- Medicine at [facility] [address] [place] [address] Haseeb Nice MD [address], [address] [place] [address], [id number] [facility]: 83-69-0406Cinkvlurnn hospital visit by physician 10/16/2023 11:30 AM EST Hospital Encounter [facility] - [facility] Imaging [address] [place] [id number] [phone] [facility] US ImagingStart: 19-27-7701Usoreayct vaccinationInfluenza Vaccine [facility] SystemStart: 99-88-1291CNL Vaccines (1 - 3-dose SCDM series)HPV Vaccines (1 - 3-dose SCDM series)[facility] HealthcareStart: 24-44-4622Vwcrdrkop for malignant neoplasm of cervixPap SmearProtestant Deaconess Hospital SystemStart: 2012 DTaP,Tdap and Td Vaccines (1 - Tdap)DTaP,Tdap and Td Vaccines (1 - Tdap) [facility] SystemStart: 00-23-0156Fsxqmsmnr B Vaccines (1 of 3 - 19+ 3- dose series)Hepatitis B Vaccines (1 of 3 - 19+ 3-dose series)[facility] Start: 55-14-0114Qagxb BMI ScreeningAdult BMI ScreeningCleveland Clinic [facility] Start: 66-75-8710Anptgcw of varicella vaccinationVaricella Vaccines (1 of 2 - 13+ 2-dose series)[facility] HealthcareStart: 58-55-9938Ttxachrfbg ScreeningDepression ScreeningProtestant Deaconess Hospital SystemStart: 46-08-5225Sgfappg ScreeningTobacco ScreeningProtestant Deaconess Hospital SystemStart: 03-82-0775PTkI/Tdap/Td Vaccines (1 - Tdap)DTaP/Tdap/Td Vaccines (1 - Tdap)[facility] HealthcareStart: 11-66-5598WLR Vaccines (1 of 1 - Standard series)MMR Vaccines (1 of 1 - Standard series)[facility] HealthcareStart: 51-80-0136Ftt[place] CounselingHendricks Community HospitalBacteria identified in Urine by CultureUrine culture Microbiology Routine Missed menses Ordered: 05/14/2025[place] [facility] HealthcareComment on above:Ordered: 05/14/2025BC W Auto Differential panel - BloodCBC and differential Lab Routine Missed menses , unspecified gestational age ([facility]) Ordered: 05/14/2025[facility] HealthcareComment on above:Ordered: 05/14/2025BC W Auto Differential panel - BloodCBC and differential Lab Routine 29 weeks gestation of ([facility]) Ordered: 08/09/2025[facility] Healthcare Work Phone: comment on above:Ordered: 08/09/2025HLAMYDIA TRACHOMATIS (GENITO/STI)CHLAMYDIA TRACHOMATIS (GENITO/STI) Lab Routine Exposure to STD Ordered: 05/25/2025[facility] HealthcareComment on above:Ordered: 05/25/2025 Cytology Cervical or vaginal smear or scraping studyPap Smear Pathology and Cytology Routine Well woman exam with routine gynecological exam Ordered: [facility] HealthcareComment on above:Ordered: 05/25/2025Hemoglobin A1c/Hemoglobin.total in BloodHemoglobin A1c Lab Routine Missed menses , unspecified gestational age ([facility]) Ordered: 05/14/2025[facility] HealthcareComment on above:Ordered: 05/14/2025Hemoglobin A1c/Hemoglobin.total in BloodHemoglobin A1c Lab Routine 29 weeks gestation of ([facility]) Ordered: 08/09/2025 [facility] HealthcareComment on above:Ordered: 08/09/2025Hepatitis B virus surface Ag [Presence] in Serum or Plasma by ImmunoassayHepatitis B surface antigen Lab Routine Missed menses , unspecified gestational age ([facility]) Ordered: 05/14/2025[facility] HealthcareComment on above:Ordered: 05/14/2025Hepatitis C virus Ab [Presence] in Serum or Plasma by ImmunoassayHepatitis C antibody Lab Routine Missed menses , unspecified gestational age ([facility]) Ordered: 05/14/2025[facility] HealthcareComment on above:Ordered: 05/14/2025HIV-1/HIV-2 antigen/antibody combination immunoassayHIV-1 and HIV-2 antibodies Lab Routine Missed menses , unspecified gestational age ([facility]) Ordered: 05/14/2025[facility] HealthcareComment on above:Ordered: 05/14/2025Human papilloma virus DNA [Presence] in Unspecified specimen by Probe with amplificationHPV DNA probe, amplified Microbiology Routine Well woman exam with routine gynecological exam Ordered: 05/25/2025[facility] HealthcareComment on above:Ordered: 05/25/2025 Neisseria gonorrhoeae DNA [Presence] in Unspecified specimen by DAVY with probe detectionNeisseria gonorrhea DNA probe, direct Lab Routine Exposure to STD Ordered: 05/25/2025[facility] HealthcareComment on above:Ordered: 05/25/2025Reagin Ab [Presence] in Serum by RPRRPR Lab Routine Missed menses , unspecified gestational age ([facility]) Ordered: 05/14/2025[facility] HealthcareComment on above: Ordered: 05/14/2025Rubella antibody, IgGRubella antibody, IgG Lab Routine Missed menses , unspecified gestational age ([facility]) Ordered: 05/14/2025[facility] HealthcareComment on above:Ordered: 05/14/2025SURESWAB(R) ADVANCED VAGINITIS PLUS, TMASURESWAB(R) ADVANCED VAGINITIS PLUS, TMA Pathology and Cytology Routine Vaginal discharge Ordered: 05/25/2025[facility] Work Phone: comment on above:Ordered: 05/25/2025 End: 26-38-7843Slzinhzhdgm [Units/volume] in Serum or PlasmaTSH Lab Routine Acquired autoimmune hypothyroidism monthy for 3 Occurrences starting 07/21/2025 until 10/21/2025[facility] Work Phone: comment on above:monthy for 3 Occurrences starting 07/21/2025 until 10/21/2025 Payers DatePayer CategoryPayerPolicy [id number] [id number] Health Insurance [facility] [id number] 2.16840.1.158281.3.57[id number] 2.16840.1.223269.3.57[id number] 2.840.1.294531.3.57[id number] 2.840.1.180147.3.57[id number] 2.840.1.315759.3.57[id number] 2.16840.1.201150.3.57[id number] 2.840.1.099585.3.57[id number] 2.840.1.777059.3.579.[id number] 2.16840.1.176694.3.57[id number] 2.16840.1.296086.3.57[id number] 2.16840.1.897514.3.57[id number] 2.16.840.1.172752.3.57[id number] 2.16.840.1.467263.3.57[id number] 2.16.840.1.969778.3.57[id number] 2.16840.1.972071.3.57[id number] 2.16.840.1.203457.3.579.[id number] 2.16840.1.986601.3.57[id number] 2.840.1.570727.3.57[id number] 2.840.1.738305.3.57[id number] 2.840.1.649271.3.57[id number] 2.840.1.027470.3.579.[id number] 2.840.1.587831.3.57[id number] 2.840.1.460235.3.579.2.441712-01-9414Cdef-cln77067605630-21-6785Dmimzsc [id number] Social History DateTypeDetailFacilityStart: 94-13-6207Qyxrwdj smoking status NHISTobacco smoking consumption unknownProAdena Regional Medical Center SystemStart: 01-40-2146Hgqlloouo ProMChildren's [place] SystemStart: 23-98-2724Dnc Assigned At BirthTrinity Health [facility] HospitalStart: 83-78-6089Krbtca identityIdentifies as female gender (finding) [facility] HealthcareStart: 86-05-0574Jbnzny orientationHeterosexual (finding)[facility]oxHealthStart: 03-23-2019 End: 30-72-7704Makwjmi of Social functionProtestant Deaconess Hospital SystemStart: 03-23-2019 End: 76-46-8048Gzgfnzd InstabilityProtestant Deaconess Hospital SystemStart: 12-26-2022 Housing InstabilitySt. Mary's Hospital SystemStart: 15-24-5246Bay Assigned At BirthNot on fileProtestant Deaconess Hospital SystemStart: 84-82-3192Mttvlcg smoking status NHISSmokes tobacco dailyProtestant Deaconess Hospital SystemHistory of tobacco use Cigarette SmokerProtestant Deaconess Hospital SystemStart: 86-93-5847Efladhv use and exposure Smokeless tobacco non-userProtestant Deaconess Hospital SystemStart: 10-16-2023 End: 29-90-7613Enlyctw intakeEx-drinker (finding)[facility] Goals DatePatient GoalDesired Activity/StatePersonal health goal Clinical Notes 03-16-2022 to 08-09-2025 Note Date & YcauPlehMxxpucov41-65-7313 History of Present illness Narrative* ABIGAIL Chinchilla - 08/09/2025 9:50 AM EDT Reason for Appointment: Patient ID: Екатерина Sutherland is a 30 y.o. female who presents for Routine Visit Patient presents today for Return OB appointment. MEDICATIONS Current Outpatient Medications Medication Instructions citalopram (CELEXA) 20 mg, Oral, Daily levothyroxine (SYNTHROID, LEVOXYL) 100 mcg, Oral, Daily Vit-Fe Fumarate-FA (M-Sindi Plus) 27-1 MG tablet [...] Surgical History: Procedure Laterality Date APPENDECTOMY 2008 REVIEW OF SYSTEMS Review of Systems: Review [...] nursing note reviewed. Exam conducted with a napper tender present. Vitals: Estimated body mass index is 25.74 kg/m as calculated from the following: Height as of 04/02/24: 5' 6 . Weight as of this encounter: 159 lb 8 oz. BP: 110/52 No LMP recorded. Patient is . Assessment/Plan ICD-10-CM 1. Third trimester ([facility]) Z34.93 2. 29 weeks gestation of ([facility]) Z3A.29 CBC and differential Hemoglobin A1c POCT [...] week for routine OB appointment. Documented by Drew Solorio NP on behalf of: ABIGALI Chinchilla documented in this enc[id number] History of Present illness Narrative* Drew Solorio NP - 07/21/2025 10:00 AM EDT Reason for Appointment: Patient ID: Екатерина Sutherland is a 30 y.o. female who presents for Routine Visit Patient presents today for Return OB appointment. MEDICATIONS Current Outpatient Medications Medication Instructions citalopram (CELEXA) 20 mg, Oral, Daily levothyroxine (SYNTHROID, LEVOXYL) 100 mcg, Oral, Daily Vit-Fe Fumarate-FA (M-Sindi Plus) 27-1 MG tablet [...] Negative. Musculoskeletal: Negative. Skin: Negative. Neurological: Negative. Psychiatric/Behavioral: Positive for agitation. Depressive mood and sad All other systems reviewed and are negative. [...] nursing note reviewed. Exam conducted with a napper tender present. Vitals: Estimated body mass index is 24.29 kg/m as calculated from the following: Height as of 04/02/24: 5' 6 . Weight as of this encounter: 150 lb 8 oz. BP: 110/60 No LMP recorded. Patient is . ASSESSMENT & PLAN ICD-10-CM 1. Acquired autoimmune hypothyroidism E06.3 TSH 2. Second trimester ([facility]) Z34.92 POCT urinalysis dipstick manually resulted 3. 26 weeks gestation of ([facility]) Z3A.26 4. Depression affecting ([facility]) O99.340 citalopram (CeleXA) 20 MG tablet F32.A Return OB: Patient presents today for a routine obstetrics appointment. Patient is currently 26w4d . Patient states she is doing well but has complaints of being tired due to current . Patient has verbalizes frequent movement. labor precautions was discussed/given and patient was instructed to perform kick counts three times a day. Patient with a history of hypothyroidism and taking levothyroxine. Will continue to monitory TSH every 1 month. Patient reports anxiety and depressive mood. She is tearful today and we will start her on Celexa. She denies SI or HI. Orders Placed This Encounter Procedures TSH POCT urinalysis dipstick manually resulted Follow Up: Patient is to return to office in 2 week for routine OB appointment. Documented by Drew Solorio NP on behalf of: Drew Solorio NP documented in this enc[id number] History of Present illness Narrative* Deepika Frye LPN - 06/22/2025 9:50 AM EDT Reason for Appointment: Patient ID: Екатерина Sutherland is a 29 y.o. female who presents for Routine Visit Patient presents today for Return OB appointment. MEDICATIONS Current Outpatient Medications Medication Instructions levothyroxine (SYNTHROID, LEVOXYL) 100 mcg, Oral, Daily Vit-Fe Fumarate-FA (M-Sindi Plus) 27-1 MG tablet [...] nursing note reviewed. Exam conducted with a napper tender present. Vitals: Estimated body mass index is 23.91 kg/m as calculated from the following: Height as of 6/20/24: 5' 6 . Weight as of this encounter: 148 lb 1.9 oz. BP: 100/60 No LMP recorded. Patient is . ASSESSMENT & PLAN ICD-10-CM 1. 22 weeks gestation of ([facility]) Z3A.22 POCT urinalysis dipstick manually resulted 2. Second trimester ([facility]) Z34.92 POCT urinalysis dipstick manually resulted 3. Thyroid disease E07.9 4. Diabetes mellitus screening Z13.1 CBC Glucose tolerance, 1 hour CBC Glucose tolerance, 1 hour Patient presents today for a routine obstetrics appointment. Patient is currently 22w3d with a Estimated Date of Delivery: 10/23/25. Pt doing well with no complaints. Pt to return in 4 weeks for scheduled ob appt. Pt given glucose and cbc orders to have obtained. Reviewed anatomy scan with pt. Documented by Deepika Frye LPN on behalf of: Marco Bales DO documented in this enc[id number] History of Present illness Narrative* Deepika Frye LPN - 05/25/2025 9:40 AM EDT Reason for [...] Surgical History: Procedure Laterality Date APPENDECTOMY 2008 REVIEW OF SYSTEMS Review of Systems: Review [...] nursing note reviewed. Exam conducted with a napper tender present. Vitals: Estimated body mass index is 22.4 kg/m as calculated from the following: Height as of 04/02/24: 5' 6 . Weight as of this encounter: 138 lb 12.8 oz. BP: 100/60 No LMP recorded. Patient is . ASSESSMENT & PLAN ICD-10-CM 1. 18 weeks gestation of ([facility]) Z3A.18 POCT urinalysis dipstick manually resulted Alpha fetoprotein, maternal Alpha fetoprotein, maternal 2. Second trimester ([facility]) Z34.92 POCT urinalysis dipstick manually resulted Alpha fetoprotein, maternal Alpha fetoprotein, maternal 3. Well woman exam with routine gynecological exam Z01.419 Pap Smear HPV DNA probe, amplified 4. Screening, , for anatomic survey ([facility]) Z36.89 US OB 14+ weeks anatomy scan US OB 14+ weeks anatomy scan 5. Exposure to STD Z20.2 CHLAMYDIA TRACHOMATIS (GENITO/STI) Neisseria gonorrhea DNA probe, direct 6. Vaginal discharge N89.8 SURESWAB(R) ADVANCED VAGINITIS PLUS, TMA 7. Thyroid disease E07.9 TSH TSH Return OB/Annual Exam: Patient presents today for a annual exam/routine obstetrics appointment. Patient is currently 24y0ddxlnllvb. Pt advised to have labs drawn. Pap [...] of: Marco Bales DO documented in this enc[id number] History of Present illness Narrative* Sana Rogers LPN - 05/14/2025 10:30 AM [...] the following prescription(s): levothyroxine, ondansetron odt, and m-sindi plus. Medical History: Active Ambulatory Problems Diagnosis [...] urinalysis dipstick manually resulted Positive urine test ([facility]) , unspecified gestational age ([facility]) - Type and screen; Future - ABO/Rh; Future - CBC and differential - Hemoglobin A1c - RPR - Rubella antibody, IgG - Hepatitis B surface antigen - Hepatitis C antibody - HIV-1 and HIV-2 antibodies - Rapid drug screen, urine; Future Encounter for supervision of normal first in first trimester ([facility]) - Rapid drug screen, urine; Future Nausea and vomiting in ([facility]) - ondansetron ODT (Zofran-ODT) 4 MG disintegrating [...] by: Sana Rogers LPN documented in this enco[id number] History of Present illness Narrative* ABIGAIL Chinchilla - 11/27/2023 2:30 PM EST Reason for Appointment: Patient ID: Екатерина Sutherland [...] Missed menses Non-compliant patient Smoker Thyroid disease ([facility]) No family history on file. Social [...] behalf of: ABIGAIL Chinchilla documented in this enco[id number] Miscellaneous Notes* Telephone Encounter - Rachelle Mullen LPN - 10/22/2023 12:28 PM EST Please call us back to schedule an ultrasound next week. [facility] Telephone encounter Note* Telephone Encounter - Rachelle Mullen LPN - 10/22/2023 12:28 PM EST Please call us back to schedule an ultrasound next week. [facility]01-[facility] History of Present illness Narrative* Haseeb Nice MD - 10/22/2023 11:07 AM EST Release of records form was signed previously [...] option for patients with a history of pretermbirth, lozano gestation, and a shortened cervix. However, [...] transvaginal ultrasound would also be recommended, at leastevery 2 weeks between 16 and 23 weeks. In the event that her cervical length was to become less than 25 mm during this period of surveillance, she would be a candidate for cerclage placement. Empiricor prophylactic cerclage placement for this patient with a future would not necessarily be recommended. The population that tends to benefit most from this practice would be those who have had a history of mid-trimester losses. Recommendations: 1. Follow-up cervical length be scheduled 2. Recommend to increase p.o. hydration. documented in this encounterWilson [facility] Hospital01-03-2024 History of Present illness Narrative* Yuliet Tejada RN - 10/16/2023 1:00 PM EST Headache/epigastric pain/blurry vision/swelling? No Cramping/contractions? No Abnormal vaginal discharge? No Spotting/vaginal bleeding? No Loss of fluid like your water may have broken? No Cats in the home? No Do you change the litter box? N/A Flu vaccine? No Genetic testing done this here or other office? Yes Have you been seen here at [facility] in a previous ? No Recent ER visits or hospitalizations? No Bring blood sugar log or meter with you today? (Please bring them with you for every visit at [facility]) N/A Traveled outside the country in the past 6 month No Any concerns that you would like me to mention to the provider today? No * Haseeb Nice MD - 10/16/2023 1:00 PM EST [facility] Consult Note Reason For Consult: HPI: Екатерина Sutherland is a 28 y.o. @ 20w2d who presented for consultation from Marco Head DO regarding Chief Complaint Patient presents [...] Yes Not In System Ref Prov vit no.407-kdtn-yvfcx acid ( VITAMIN) 27 mg iron- 800 [...] amniotic bands with her 2nd . She reportsthat her daughter did not have any malformation [...] continue with routine care in your office [facility], the CDC, and other organizations representing maternal and public health professionals recommend that , , and lactating people and those considering receive the COVID-19 vaccination. Vaccination is the best method to reduce maternal and complications of SARS-CoV-2 infection. This document was created with [employer] technology. Though I make every effort to review the dictation as it is transcribed, on occasion the spoken word can be misinterpreted by the technology leading to inappropriate words, phrases, or sentences. This note is addressed to the requesting provider as a consultation for clinical guidance. Specificmedical abbreviations are occasionally used and those are generally approved by the [place]?Board of?Obstetrics and?Gynecology?as well as?James s abbreviations. The above plan of care was based solely on the diagnoses for which a consultation was requested. ?More frequent testing may be indicated based on her other medical/obstetrical conditions. The management of other or medical conditions is beyond the scope of requested consultation and will c wesinue to be followed by the primary telephone cleaner or primary care provider. Thank you for allowing me to participate in her care. Please contact me if you have any concerns. documented in this encounterWilson [facility] Hospital06-03-2022 NotePROCEDURE: XR SHOULDER RT 2V or > HISTORY: Impingement syndrome of right shoulder region ; acute right shoulder pain, no known injury COMPARISON: None. FINDINGS: BONES:No fracture, acute abnormality, or significant arthropathy. SOFT TISSUES:No visible soft tissue swelling. EFFUSION:None visible. OTHER: Negative. IMPRESSION: 1. Normal examination. Electronically authenticated by: GENI CABRAL Date: 2022-03-16 18:16[facility]* Diagnosis Second trimester state, incidental with normal glucose tolerance test (GTT) Diabetes mellitus screening Screening for diabetes mellitus History of miscarriage Personal history of other genital system and obstetric disorders History of oligohydramnios documented in this encounter [facility] HealthcareEvaluation note* Diagnosis High-risk in second trimester- Primary History of oligohydramnios in prior , currently with other poor obstetric history 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 20 weeks gestation of [facility]* Diagnosis History of oligohydramnios in prior , currently - Primary with other poor obstetric history documented [facility] encounter [facility]* Diagnosis History of oligohydramnios in prior , currently - Primary with other poor obstetric history 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 History of delivery, currently with history of pre-term labor documented in this encounter [facility]* Diagnosis Missed menses Positive urine test ([facility]) , unspecified gestational age ([facility]) Encounter for supervision of normal first in first trimester ([facility]) Nausea and vomiting in ([facility]) Unspecified vomiting of , unspecified as to episode of care documented in [facility] encounter [facility]* Diagnosis 18 weeks gestation of ([facility]) Second trimester ([facility]) state, incidental Well woman exam with routine gynecological exam Routine gynecological examination Screening, , for anatomic survey ([facility]) Encounter for anatomic survey Exposure to STD Vaginal discharge Leukorrhea, not specified as infective Thyroid disease Unspecified disorder of thyroid documented in this encounter [facility]* Diagnosis 22 weeks gestation of ([facility]) Second trimester ([facility]) state, incidental Thyroid disease Unspecified disorder of thyroid Diabetes mellitus screening Screening for diabetes mellitus documented in this encounter [facility]* Diagnosis Acquired autoimmune hypothyroidism- Primary Other specified acquired hypothyroidism Second trimester ([facility]) state, incidental 26 weeks gestation of ([facility]) Depression affecting ([facility]) documented in this encounter [facility]* Diagnosis size inconsistent with dates ([facility])- Primary Third trimester ([facility]) state, incidental 29 weeks gestation of ([facility]) History of miscarriage Personal history of other genital system and obstetric disorders History of oligohydramnios Thyroid disease Unspecified disorder of thyroid Acquired autoimmune hypothyroidism Other specified acquired hypothyroidism documented in this encounter [facility] HealthcareInstructionsNot on filedocumented in this encounterProMediwa Health SystemInstructionsNot on filedocumented in this encounterProMedica Health SystemInstructionsNot on filedocumented in this encounterProMedica Health SystemInstructionsNot on filedocumented in this encounterProMediwa Health System InstructionsNot on filedocumented in this encounterProLake Martin [facility] Summary Purpose Family History No Family History Records FoundNo Family History Records FoundNo Family History Records FoundNo Family History Records Found Advance Directives No Advanced Directives Records FoundNo Advanced Directives Records FoundNo Advanced Directives Records FoundNo Advanced Directives Records Found Reason for Referral SpecialtyDiagnoses / ProceduresReferred By ContactReferred To ContactMaternal and Medicine Diagnoses History of oligohydramnios in prior , currently Procedures [facility] with or without consult Haseeb Nice MD [address], [address] [place] [id number] [facility] [address] [place] [address] Referral IDStatusReasonStart DateExpiration DateVisits RequestedVisits [id number] Review/[id number] / Procedures Referred By ContactReferred To [facility] Plainviewrnal and Medicine Diagnoses History of oligohydramnios in prior , currently 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 History of delivery, currently Procedures [facility] with or without consult Haseeb Nice MD [address], [address] [place] [id number] [facility] [address] [place] [address] Referral IDStatusReasonStart DateExpiration DateVisits RequestedVisits [id number] Review/ Additional Source Comments INFORMATION SOURCE (unrecogn ized section and content) DATE CREATED AUTHOR 01/31/2023 [facility] DATE CREATED AUTHOR AUTHOR'S ORGANIZ ATION 10/20/2023 [facility] DATE CREATED AUTHOR AUTHOR'S ORGANIZ ATION 11/24/[address] [facility] DATE CREATED AUTHOR AUTHOR'S ORGANIZ ATION 08/10/2025 [facility] EPIC Reason for Visit (unrecogniz ed section and content) ReasonCommentsRoutine VisitReasonCommentsHx OligoHx Multiple MiscarriagesHypothyroidismReasonCommentsAmenorrheaReasonCommentsRoutine VisitWell Women VisitSTI Screening Care Teams (unrecognized sec tion and content) Team MemberRelationshipSpecialtyStart DateEnd Date Marco Bales, DO [address] [place] [address]11/06Team MemberRelationshipSpecialtyStart DateEnd Date Marco Bales, DO [address] [place], [facility]11 [address]11/06Team MemberRelationshipSpecialtyStart DateEnd Date Marco Bales, DO [address] [place], [facility] [place] [address]Team MemberRelationshipSpecialtyStart DateEnd Date Marco Bales, DO [address] [place], [facility] [place] [address]Team MemberRelationshipSpecialtyStart DateEnd Date Marco Bales, DO [address] [place], [facility]11 [address]11/06Team MemberRelationshipSpecialtyStart DateEnd Date Marco Bales, DO [address] [place], [facility]11 [address]11/06Team MemberRelationshipSpecialtyStart DateEnd Date Marco Bales, DO [address] [place] [address] [place] [address]Te MemberRelationshipSpecialtyStart DateEnd Date Marco Bales, DO [address] [facility] [place] [address] [place] [address]Team MemberRelationshipSpecialtyStart DateEnd Date Marco Bales, DO [address] [facility] [place] [address] [place] [address]Te MemberRelationshipSpecialtyStart DateEnd Date Marco Bales, DO [address] [facility] [place] [address] [place] [address]Team MemberRelationshipSpecialtyStart DateEnd Date Marco Bales, DO [address] [facility] [place] [address]11/06Te MemberRelationshipSpecialtyStart DateEnd Date Marco Bales, DO [address] [place] [address] [place] [address] [place] [address]Te MemberRelationshipSpecialtyStart DateEnd Date Marco Bales, DO [address] [facility] [place] [address]11/06Team MemberRelationshipSpecialtyStart DateEnd Date NiiMarco christy [address] [place] [address] [place] [address] [facility]01/13/24 FOR RECORDS PERTAINING TO PATIENTS WHO ARE [...] BE BASED ON THE PRIMARY CLINICAL RECORDS. [facility] basestone [facility]. provides no warranty or guarantee of the accuracy or completeness of information in this document.
[2025-08-23 10:34] LABS: Hematocrit 29.4 % (36.0-48.0); Hemoglobin 10.1 g/dL (12.0-16.0); Immature Granulocytes Abs Auto 0.04 10^3/uL (0.00-0.03); Immature Granulocytes Pct Auto 0.4 % (0.0-0.5); Lymphocytes Absolute Auto 1.7 10^3/uL (1.2-3.8); Mean Corpuscular HGB Conc 34.4 g/dL (29.9-35.2); Mean Corpuscular Hemoglobin 32.9 pg (26.7-34.0); Mean Corpuscular Volume 95.8 fL (81.0-99.0); Platelet Count 150 10^3/uL (150-450); Red Blood Count 3.07 10^6/uL (4.20-5.40); White Blood Count 9.3 10^3/uL (4.0-11.0)
== END 2025-08-23 10:10 | disposition home or self-care (01) ==
LOC: LAB 10:10
PROVIDERS: Visit Provider Physician Assistant
DX: O26.893 Other specified pregnancy related conditions, third trimester (principal); E06.3 Autoimmune thyroiditis; Z3A.29 29 weeks gestation of pregnancy
CPT/HCPCS: 36415; 83036; 84443; 85025

== ENCOUNTER 2025-08-23 10:17 | Outpatient (OUT) | payer OTHER, SELFPAY ==
--- OUTSIDE RECORDS SUMMARY | 2017-10-09 06:55 | XMS_ITS | Continuity of Care Document ---
Author Organization [facility] Address [address] [place] [address] Phone Care Team Providers Care Shotblast Operator Name Role Phone Jason Johnston MD Unavailable [...] VISIT, EST URINE TEST Medrxyprogester acetate inj [facility] MEDICAID Condoms Medrxyprogester acetate inj URINALYSIS, NONAUTO W/SCOPE URINE TEST SPECIMEN HANDLING Advance Directives Directive Yes / No Effective Date File Name No Information Encounters Encounter Description Practice Location Reason(s) For Visit Diagnoses Date Provider Providers Copied on Encounter [facility], [address] [place], [place], [id number], [place] tel:[phone] [facility] No Information 7 Preston Gomez. [address] [place], [place], [address], [place]. tel:[phone] [facility], [address] [place], [place], [address], [place] tel:[phone] [facility] Consult with Dr. Jiménez (chief complaint) No Information 4 [facility] Jaz. [address] [place], [place], [address], [place]. tel:[phone] [facility], [address] [place], [place], [address], [place] tel:[phone] [facility] lab result (chief complaint) No Information 4 [facility] Jaz. [address] [place], [place], [address], [place]. tel:[phone] OFFICE/OUTPAT IENT VISIT, [facility], [address] [place], [place], [address], [place] tel:[phone] [facility] Interview (chief complaint) No Information 4 [facility] Jaz. [address] [place], [place], [address], [place]. tel:[phone] OFFICE/OUTPAT IENT VISIT, [facility], [address] [place], [place], [address], [place] tel:[phone] [facility] Test (chief complaint) Supervision of other normal 4 [facility] Jaz. [address] [place], [place], [address], [place]. tel:[phone] [facility], [address] [place], [place], [address], [place] tel:[phone] [facility] Nexplanon removal (chief complaint) Headache 4 Viscodilia Brumfield. [address] [place], [place], [address], [place]. tel:[phone] OFFICE/OUTPAT IENT VISIT, [facility], [address] [place], [place], [address], [place] tel:[phone] [facility] annual visit (chief complaint) Gynecological Examination 3 Jessy Brumfield. [address] [place], [place], [address], [place]. tel:[phone] OFFICE/OUTPAT IENT VISIT, [facility], [address] [place], [place], [address], [place] tel:[phone] [facility] Nexplanon 4 wk check (chief complaint) Surveillance of implantable subdermal contraceptive 3 Crispin Peralta. [address] [place], [place], [address], [place]. tel:[phone] OFFICE/OUTPAT IENT VISIT, [facility], [address] [place], [place], [address], [place] tel:[phone] [facility] Nexplanon (chief complaint) Surveillance of implantable subdermal contraceptive 3 Crispin Peralta. [address] [place], [place], [address], [place]. tel:[phone] [facility], [address], [place], [address], [place] tel:[phone] [facility] No Information 3 Lamp Kathryn. [address] [place], [place], [address], [place]. tel:[phone] OFFICE/OUTPAT IENT VISIT, [facility], [address], [place], [address], [place] tel:[phone] [facility] No Information Dec-0 2 Visci DO Hussein. [address], [place], [address], [place]. tel:[phone] OFFICE/OUTPAT IENT VISIT, [facility], [address] [place], [place], [address], [place] tel:[phone] [facility] Neck Mass (chief complaint) No Information 1 Gisela Garcia. [address], [place], [address], [place]. tel:[phone] OFFICE/OUTPAT IENT VISIT, [facility], [address] [place], [place], [address], [place] tel:[phone] [facility] Gonococcal infection (acute) of lower genitourinary tract Sep-2 1 Visci DO Hussein. [address] [place], [place], [address], [place]. tel:[phone] [facility], [address] [place], [place], [address], [place] tel:[phone] [facility] Gonococcal infection (acute) of lower genitourinary tract Jun- 1 Gisela Garcia. [address] [place], [place], [address], [place]. tel:[phone] OFFICE/OUTPAT IENT VISIT, [facility], [address], [place], [address], [place] tel:[phone] [facility] STI female (chief complaint) Screening examination for venereal disease Sep- 1 Gisela Garcia. [address], [place], [address], [place]. tel:[phone] OFFICE/OUTPAT IENT VISIT, [facility], [address] [place], [place], [address], [place] tel:[phone] [facility] No Information Dec-0 1 Crispin Peralta. [address] [place], [place], [address], [place]. tel:[phone] OFFICE/OUTPAT IENT VISIT, [facility], [address], [place], [address], [place] tel:[phone] [facility] No Information 0 9-201 0 Carlos Leal. [address] [place] [address], [place], [address]. tel:[phone] OFFICE/OUTPAT IENT VISIT, [facility], [address] [facility] [place], [place], [address], [place] tel:[phone] [facility] No Information 6-201 0 Lamp Kathryn. [address] [place], [place], [address], [place]. tel:[phone] [facility], [address] [place] [address], [place], [address], [place] tel:[phone] [facility] No Information 8-201 0 Orville VISE HAND Yamilka. [address] [place], [place], [address]. tel:[phone] OFFICE/OUTPAT IENT VISIT, [facility], [address] [place] [address], [place], [address], [place] tel:[phone] [facility] No Information 2 5-201 0 Visci DO Hussein. [address] [place], [place], [address], [place]. tel:[phone] OFFICE/OUTPAT IENT VISIT, [facility], [address], [place], [address], [place] tel:[phone] [facility] No Information 9-200 9 Mawhrocio VISE HAND Yamilka. [address] [place], [place], [address]. tel:[phone] [facility], [address] [place], [place], [address], [place] tel:[phone] [facility] No Information 9 No Information Family History Family Member Type Diagnosis Age At Onset Mother Problem (finding) Alive and well Brother Problem (finding) Cerebral palsy Brother Problem (finding) Alive and well Father Problem (finding) stroke Brother Problem (finding) Alive and well Brother Problem (finding) Alive and well Father Problem (finding) Alive and well Payers Payer name Insurance type Covered alliance party ID Authoriza tion(s) No Information Social History [...] No Information Instructions Date Instruction Additional Infor pratima Avoid sexual activit y while you await your test results. Related to Screening examination for venereal disease No treatment indicat ed today. Call for test results. Related to Screening examination for venereal disease Assessments Type Assessment Date No Information Patient Care Teams Name Effective Dates (start - stop) Status Members No Information
--- OUTSIDE RECORDS SUMMARY | 2025-08-23 10:21 | XMS_ITS | CCD ---
Author Organization [facility] CliniSywi Care Team Providers Care Ops Manager Name Role Phone RUSSELL, DR DEBBIE [...] GENI Lemos Consulting Unavailable NII ., DR FARSER Consulting Unavailable MISC, DR JIM Admitting Unavailable [...] Primary Care Provider Unavailabl e Nii DO, Marco Unavailable Nii DO, Marco Unavailable NII, MARCO Attending Unavailable NII, MARCO Referring Unavailable NII, MARCO Attending Unavailable DREW SOLORIO Attending Unavailable ROSANA MARCANO Attending Unavailable Medications Current Medications MedicationDrug Class(es)DatesSig (Normalized)Sig (Original)citalopram 20 mg oral tablet (5 sources)Serotonin Reuptake InhibitorStart: 07-21-2025 End: 43-59-6815lvku 1 tablet by mouth once dailycitalopram (CeleXA) 20 MG tablet Indications: Depression affecting (HCC) Take 1 tablet (20 mg) by mouth Daily 30 tablet 5 07/21/2025 01/17/2026 Activelevothyroxine sodium 0.1 mg oral tablet (20 sources)l-ThyroxineStart: 51-04-9200vqhb 1 tablet by mouth once daily levothyroxine (Synthroid, Levoxyl) 100 MCG tablet Indications: Thyroid disease TAKE 1 TABLET (100 MCG) BY MOUTH 1 (ONE) TIME EACH DAY AT THE SAME TIME 30 tablet 5 04/15/2025 ActiveStart: 10-08-2023 End: 52-34-2778ciss 1 tablet by mouth once dailylevothyroxine (Synthroid, Levoxyl) 100 MCG tablet Indications: Thyroid disease Take 1 tablet (100 mcg) by mouth 1 (one) time each day at the same time 30 tablet 5 10/08/2023 09/24/2024 Discontinuednorethindrone 0.35 mg oral tablet (1 source)Start: 04-22-2024 End: 09-22-6250juhb 1 tablet by mouth once dailynorethindrone (Micronor) 0.35 MG tablet Indications: Uses control Take 1 tablet (0.35 mg) by mouth Daily 28 tablet 11 04/22/2024 05/14/2025 Discontinued (Other)omeprazole 20 mg delayed release oral capsule (6 sources)Proton Pump InhibitorStart: 01-27-2024 End: 32-97-5766kqhq 2 capsules by mouth before mealtimeomeprazole (PriLOSEC) [address] capsule Indications: Heartburn TAKE 2 CAPSULES (40 MG) BY MOUTH IN THE MORNING. TAKE BEFORE MEALS. DO NOT CRUSH OR CHEW.. 180 capsule 3 04/24/2024 05/14/2025 Discontinued (Other)Start: 10-08-2023 End: 88-94-2649ecqe 1 capsule by mouth before mealtimeomeprazole (PriLOSEC) [address] capsule Indications: Heartburn Take 1 capsule (20 mg) by mouth in the morning. Take before meals. Do not crush or chew.. 30 capsule 11 10/08/2023 01/27/2024 Discontinued (Reorder)ondansetron 4 mg disintegrating oral tablet (17 sources)Serotonin-3 Receptor AntagonistStart: 05-14-2025 End: 07-87-7904igvn 1 tablet by mouth every six hours for nauseaondansetron ODT (Zofran-ODT) 4 MG disintegrating tablet Indications: Nausea and vomiting in ([facility]) Take 1 tablet (4 mg) by mouth every 6 (six) hours if needed for nausea or vomiting 30 tablet 2 05/14/2025 06/13/2025 Active End: 58-48-1044xzov 1 tablet by mouth every six hours as neededondansetron ODT (Zofran-ODT) 4 MG disintegrating tablet Take 4 mg by mouth every 6 (six) hours if needed 04/02/2024 Discontinuedprenatal vit no.724-egin-hzqoh acid ( VITAMIN) 27 mg iron- 800 mcg tablet (7 sources)take 1 tablet by mouth in the morningprenatal vit no.189-tnwc-xydlg acid ( VITAMIN) 27 mg iron- 800 mcg tablet Take 1 tablet by mouth in the morning. 0 ActivePrenatal Vit-Fe Fumarate-FA (M- Plus) 27-1 MG tablet (16 sources)Start: 37-05-8131wctm 1 tablet by mouth once daily in [...] Class(es)DatesSig (Normalized)Sig (Original)ferrous sulfate (3 sources) End: 04-17-7511amzg 1 tablet by mouth in the morningFerrous Sulfate (IRON PO) Take 1 tablet by mouth in the morning. 04/02/2024 Discontinuedmetoclopramide 10 mg oral tablet (1 source)Dopamine-2 Receptor AntagonistStart: 01-28-2024 End: 38-67-5981omix 1 tablet by mouth in the morning, [...] 27-1 MG tablet (5 sources)Start: 10-08-2023 End: 96-50-4046qjjx 1 tablet by mouth in the morningPrenatal Vit-Fe Fumarate-FA ( Plus/Iron) 27-1 MG tablet Indications: Missed menses Take 1 tablet by mouth in the morning. 30 tablet 11 10/08/2023 08/27/2024 DiscontinuedStart: 10-08-2023 End: 65-92-4730jqkb 1 tablet by mouth in the morningPrenatal Vit-Fe Fumarate-FA ( Plus/Iron) 27-1 MG tablet Indications: Missed menses Take 1 tablet by mouth in the morning. 30 tablet 11 10/08/2023 10/07/2024 Active Problems Active Problems Problem ClassificationProblemDateDocumented DateEpisodic/ChronicAnxiety disorders (20 sources)Generalized anxiety disorder; Translations: [Generalized anxiety disorder]Onset: 035011-72-2073TantjzcVvlniiopn hypertension (1 source)Essential (primary) hypertension; Translations: [ESSENTIAL PRIMARY HYPERTENSION]Onset: 75-03-4703FvyfvciRbiqbicniq during ; abruptio placenta; placenta previa (7 sources)Threatened ; Translations: [Hemorrhage in early , unspecified]Onset: 44-24-8970ZxtoxrbdUqpnbrrwouhdt and screening for infectious disease (3 sources)Encounter for immunization; Translations: [Exposure to sexually transmissible disorder]Onset: 155040-17-7776RhknvhvzClxruilbqx disorders (1 source)Hormone replacement therapy; Translations: [HORMONE REPLACEMENT THERAPY]Onset: 51-94-1883SktveckkAlepsmqfg disorders (5 sources)Irregular menstruation, unspecified; Translations: [Missed period] Onset: 46-73-5836UqkmnmmVagkb aftercare (1 source)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; Translations: [OTH ROPE MACHINE SETTER CURRENT DRUG THERAPY]Onset: 63-53-4505KmarmbfhWzdwy complications of ; puerperium affecting management of mother (1 source)Endocrine, nutritional and metabolic diseases complicating childbirth; Translations: [ENDOCRN NUTR MET DZ COMP CHILDBIRTH]Onset: 28-03-2218Xhbnysmj Other complications of (1 source)Endocrine, nutritional and metabolic diseases complicating , first trimester; Translations: [ENDOCRN NUTR MET DZ COMP PG 1ST TRI]Onset: 57-49-5662WekuemgoExvhk complications of (1 source)Smoking (tobacco) complicating , first trimester; Translations: [SMOKING TOBACCO COMP TIKA8CT TRI]Onset: 69-17-3536GtbxisfiNegsh complications of (1 source)Other viral diseases complicating , first trimester; Translations: [OTH VIRAL DZ COMP PREGFIRST TRI]Onset: 68-91-6782GikjyspiEifxt complications of (2 sources) care for patient with recurrent loss, unspecified trimester; Translations: [ care for patient with recurrent loss, unspecified trimester]Onset: 59-48-9734DyvvfztkZkwoo complications of (1 source)Supervision of high risk , unspecified, second trimester; Translations: [Supervision of high risk , unspecified, second trimester]Onset: 17-13-9508FkqjmwlvIwsah complications of (2 sources)Supervision of with other poor reproductive or obstetric history, unspecified trimester; Translations: [Supervision of with other poor reproductive or obstetric history, unspecified trimester]Onset: 41-17-2984DuunotmoYzudz complications of (2 sources)Endocrine, nutritional and metabolic diseases complicating , second trimester; Translations: [Endocrine, nutritional and metabolic diseases complicating , second trimester]Onset: 93-07-8982WbkjsyuwMbsmb complications of (1 source)Supervision of other high risk pregnancies, unspecified trimester; Translations: [Supervision of other high risk pregnancies, unspecified trimester]Onset: 27-49-1290QiwczoyaHdafk complications of (1 source)Vomiting of , unspecified; Translations: [Unspecified vomiting of , unspecified as to episode of care or not applicable] 64-39-8281YlzrptqaAfxkg complications of (2 sources)Depressive disorder in mother complicating ; Translations: [Other mental disorders complicating , unspecified trimester]07-21-2025 EpisodicOther complications of (2 sources) size does not accord with dates; Translations: [Uterine size- date discrepancy, unspecified trimester]32-75-1247SiqluhrtMpduf female genital disorders (2 sources)Vaginal discharge; Translations: [Other specified noninflammatory disorders of vagina]04-74-5690ZhbwljspSyhit and delivery including normal (16 sources)Encounter for supervision of normal , unspecified, first trimester; Translations: [Second trimester ]Onset: EpisodicOther screening for suspected conditions (not mental disorders or infectious disease) (10 sources)Encounter for other specified screening; Translations: [Encounter for screeningfor cervical length]Onset: 10-16-2023 92-22-4655DdetjkolLjpuhxet codes; unclassified (1 source)Less than 8 weeks gestation of ; Translations: [< 8 WEEKS GESTATION ]Onset: 30-02-6555TtfytphsXtirhdzx codes; unclassified (1 source)20 weeks gestation of ; Translations: [20 weeks gestation of ]Onset: 67-33-4552AgnesyzvWmbvahia codes; unclassified (4 sources)H/O: miscarriage; Translations: [Personal history of other complications of , childbirth and the puerperium]29-88-5750Zohcntky Residual codes; unclassified (2 sources)Gestation period, 18 weeks; Translations: [18 weeks gestation of ]68-41-3265JkfczedfTqacogyc codes; unclassified (2 sources)Gestation period, 22 weeks; Translations: [22 weeks gestation of ]57-93-3996XjctxqpfEskcnczo codes; unclassified (2 sources)Gestation period, 26 weeks; Translations: [26 weeks gestation of ]83-08-6418MgeivtklOtmlkifk codes; unclassified (2 sources)Gestation period, 29 weeks; Translations: [29 weeks gestation of ]98-69-1738DbqivkjwOwmoevakj-related disorders (1 source)Nicotine dependence, cigarettes, uncomplicated; Translations: [NICOTINE DEPEND CIGARETTES UNCOMP]Onset: 54-32-8665JwyhkflQeklbiq disorders (12 sources)Hypothyroidism, unspecified; Translations: [Hypothyroidism]Onset: 13-77-0549RfeygygBjwgnaxqmcbj (1 source)PERSONAL HISTORY OF COVID-19; Translations: [PERSONAL HISTORY OF COVID-19]Onset: 53-08-6306Jodvyeedxvya (2 sources)COUGH, UNSPECIFIED; Translations: [COUGH, UNSPECIFIED]Onset: 77-49-5183Jwrgafphztcw (1 source)Hx OligoOnset: 80-88-7422Kmvgwwzdyylc (20 sources)OB RemindersOnset: 133798-25-4057Bdmqw infection (1 source)COVID-19; Translations: [COVID-19]Onset: 01-09-2023 Past or Other Problems Problem ClassificationProblemDateDocumented DateEpisodic/ChronicE Codes: Fall (1 source)Unspecified fall, initial encounter; Translations: [UNSPECIFIED FALL INITIAL ENCOUNTER]Onset: 50-43-4731FrlovzeePmpwkckhgfuppsaw hemorrhage (20 sources)Rectal hemorrhage; Translations: [Hemorrhage of anus and rectum] Onset: 768384-02-4609OfqwmhbeCcnwmleeyeza; infection of eye (except that caused by tuberculosis or sexually transmitteddisease) (1 source)Unspecified conjunctivitis; Translations: [UNSPECIFIED CONJUNCTIVITIS] Onset: 04-47-7828GxoueimjErsh wounds of head; neck; and trunk (4 sources)Laceration without foreign body of other part of head, initial encounter; Translations: [LAC W/O FBOTH PART HEAD INIT ENC]Onset: 10-20-2022 EpisodicOther complications of (1 source)High risk ; Translations: [Supervision of high risk , unspecified, second trimester]36-42-5057VoqlqxtiLqvcw complications of (3 sources)H/O: ; Translations: [Supervision of with other poor reproductive or obstetric history, unspecified trimester]68-06-9315Wnzrmydw Other complications of (2 sources)Hypothyroidism in ; Translations: [Endocrine, nutritional and metabolic diseases complicating , second trimester]10-16-2023 EpisodicOther complications of (1 source)H/O: premature delivery; Translations: [Supervision of other high risk pregnancies, unspecified trimester]85-10-4313LzrquxcfKlicg connective tissue disease (1 source)Impingement syndrome of right shoulder; Translations: [IMPINGEMENT SYNDROME RIGHT SHOULDER]Onset: 47-23-6177UnjbfetqIlbug eye disorders (3 sources)Other specified disorders of eye and adnexa; Translations: [OTHER SPEC DISORDERS EYE AND ADNEXA]Onset: 27-74-3017AfwjovueCtmllcju codes; unclassified (20 sources)H/O: Disorder; Translations: [Personal history of other complications of , childbirth and the puerperium]Onset: 12-16-2023 22-84-2620JfkhiomeRalwaxqk codes; unclassified (1 source)Gestation period, 20 weeks; Translations: [20 weeks gestation of ]40-70-4715HfroaopvDkvpavr disorders (20 sources)Disorder of thyroid gland; Translations: [Disorder of thyroid, unspecified]Onset: 276446-41-6032UaecdmxwPamkuxbbkrie (1 source)COUGH, UNSPECIFIED; Translations: [COUGH, UNSPECIFIED]Onset: 01-08-2023 Results Test NameValueInterpretationReference RangeFacilityUrinalysis macro (dipstick) panel (U)on 40-20-1555Btxzmmfwi, UANegativeNegative - 4(70) +++ mg/dLNOMS HealthcareBlood, UANegativeNegative [...] mg/dLNOMS HealthcareNOMS HealthcareUrinalysis macro (dipstick) panel (U)on 24-96-4478Idvzyzudq, UA NegativeNegative - 4(70) +++ mg/dLNOMS HealthcareBlood, [...] mg/dLNOMS HealthcareNOMS HealthcareUrinalysis macro (dipstick) panel (U)on 71-84-3862Dbyacfcyh, UANegativeNegative - 4(70) +++ mg/dLNOMS HealthcareBlood, UANegativeNegative - 50 Felice/mcLNOMS HealthcareClarity, UAClear NOMS HealthcareColor, UAYellowNOMS HealthcareGlucose, UANegativeNegative - 2000(110) ++++ mg/dLNOMS HealthcareInterpretation and review of laboratory resultsNormalNOMO HealthcareKetones, UANegativeNegative - 160(16) ++++ mg/dLNOMS HealthcareLeukocytes, UANegativeNegative - 500+++ Regina/mcLNOMS HealthcareNitrite, UANegativeNegative - PositiveNOMS HealthcarepH, UA7.55 - 9NOMS Healthcare Protein, UANegativeNegative - 2000(20) ++++ mg/dLNOMS HealthcareSpec Grav, UA 1.011 - 1.03NOMS HealthcareUrobilinogen, UA1.00.2 - 12 mg/dLNOMS HealthcareNOMS HealthcareALL CBC WITH AUTO DIFFon 73-78-4768BZBDACJBC ABSOLUTE TUMK7ZTXH HealthcareBasophils/100 WBC (Bld)0.3 %0.2 - 2.0 %NOMS [...] NOMS HealthcareLymphocytes/100 WBC (Bld)16.6 %Low20.5 - 60.0 %[facility] CenterH (RBC) [Entitic mass]32.9 pg26.7 - 34.0 pgParkland Health CenterHC (RBC) [Mass/Vol] 34.2 g/dL29.9 - 35.2 g/dLParkland Health CenterV (RBC) [Entitic vol]96.4 fL81.0 - 99.0 fLLakeland Regional HospitalMONOCYTES ABSOLUTE AUTO0.3NOMO HealthcareMonocytes/100 WBC (Bld)4.1 %1.7 - 12.0 %[facility] HospitalNEUTROPHILS ABSOLUTE AUTO6.3NOMS [facility] Neutrophils/100 WBC (Bld)78.4 %High43.0 - 75.0 %[facility] HospitalPlatelet mean volume (Bld) [Entitic vol]10.4 fL9.5 - 13.5 fLMS HealthcareTBH EO #0NOMS HealthcareTBH BVH702AcuSYUC [facility] SystemTB RBC3.34LowNOSt. Lukes Des Peres HospitalTB GVF9TCFLSt. Lukes Des Peres HospitalCLINISYNCNOMS HealthcareIGP,APTIMA HPV,AGE GDLNon 25-35-9986DUO GDLN ACOG TESTINGNote.[facility] HealthcareComment on above:TESTS RESULT FLAG UNITS REF RANGE LAB Clinician Provided Cytology Information Source.............[employer] Other.............. No. of containers..01 ThinPrep Vial Age Algo ACOG Nancy... 30-65 01 FLAG LEGEND: L-Low Normal,H-High Normal,LL-Alert Low,HH-Alert High <-Panic Low,>-Panic High,A-Abnormal,AA-Critical Abnormal Performed at: 01 =[address] [address] Vikki Rivera MD, HPV APTIMANegativeNegativeNOMS HealthcareComment on above:This nucleic acid amplification test detects fourteen high- risk HPV types (16,18,31,33,35,39,45,51,52,56,58,59,66,68) without differentiation. Performed at: =[address] [id number] Professor Of Economics: Vikki Rivera MD, Phone: [phone] Performed at: [address] [id number] Professor Of Economics: Vikki Rivera MD, Phone: [phone] IGP, APTIMA HPV, RFX 16/18,45Note.NOMS HealthcareComment on above:TESTS RESULT FLAG UNITS REF RANGE LAB DIAGNOSIS: 02 NEGATIVE FOR INTRAEPITHELIAL LESION OR MALIGNANCY. Specimen adequacy: 02 Satisfactory for evaluation. Endocervical and/or squamous metaplastic cells (endocervical component) are present. Performed by: 02 Deshawn Kirkpatrick In Room Dining Server (ASCP) . 02 Note: Note 02 The [...] <-Panic Low,>-Panic High,A-Abnormal,AA-Critical Abnormal Performed at: [address] [address] Vikki Rivera MD, SPATULA-ALONE ENDOCERVIX CLINISYNCNOMS HealthcareRECURRENT VAGINITIS (HTRX)on 71-42-4785AQMXBUIBJ VAGINAE 0NOMS HealthcareATOPOBIUM VAGINAENot detectedNOMS HealthcareBVAB 2,3 (BACTERIAL VAGINOSIS ASSOCIATED BACTERIA 2, 3); MOBILUNCUS RWA7OPUY HealthcareBVAB 2,3 (BACTERIAL VAGINOSIS ASSOCIATED BACTERIA 2, 3); MOBILUNCUS SPPNot detectedNOMS HealthcareCANDIDA ALBICANS, PARAPSILOSIS, BOSVJPDXUX6DOLW HealthcareCANDIDA ALBICANS, PARAPSILOSIS, TROPICALISNot detectedNOMS HealthcareCANDIDA GLABRATA0 NOMS HealthcareCANDIDA GLABRATANot detectedNOMS HealthcareCANDIDA AGBQZF6DODR HealthcareCANDIDA KRUSEINot detectedNOMS HealthcareCHLAMYDIA XZNPOUOMGOE1VJHV HealthcareCHLAMYDIA TRACHOMATISNot detectedNOMS HealthcareGARDNERELLA VAGINALIS0 NOMS HealthcareGARDNERELLA VAGINALISNot detectedNOMS HealthcareMEGASPHAERA (TYPES 1, 2)0NOMS HealthcareMEGASPHAERA (TYPES 1, 2)Not detectedNOMS Healthcare MYCOPLASMA KNQNCVLUOS4KDKD HealthcareMYCOPLASMA GENITALIUMNot detectedNOMS HealthcareNEISSERIA EYPHYWEDRWA7PYDW HealthcareNEISSERIA GONORRHOEAENot detected NOMS HealthcareTRICHOMONAS QZKUCHVBG7WXKK HealthcareTRICHOMONAS VAGINALISNot detectedNOMS HealthcareNOMS HealthcareUS OB 14+ [...] Delivery: 10/23/25 Gestational Age as of 05/25/2025: 32q3lVtekdfyrkw macro (dipstick) panel (U)on 77-60-3823Xynhsgndz, UANegativeNegative - 4(70) +++ mg/dLNOMS HealthcareBlood, UANegativeNegative [...] - 1.03 NOMS HealthcareUrobilinogen, UA1.00.2 - 12 mg/dLNOSt. Lukes Des Peres HospitalNOMO Healthcare HCG ( test) Ql (U)on 24-85-3701Snqjliynryeetz and review of laboratory resultsAbnormalOGDEN REGIONAL [facility]ICAL [facility]ENTER HealthcarePreg Test, UrPositiveNegativeNOMS [facility] SystemNOMO HealthcareUS OB LIMITED 1+ FETUSESon 87-19-2565UH OB LIMITED 1+ FETUSESFINDINGS: No prior examinations. [...] No LMP recorded.Urinalysis macro (dipstick) panel (U)on 21-37-8221Iorzmztoh, UA NegativeNegative - 4(70) +++ mg/dLNOMS HealthcareBlood, UANegativeNegative - 50 Felice/mcLNOMS HealthcareClarity, UAClearNOMS HealthcareColor, UAYellowNOMS HealthcareGlucose, UATraceNegative - 1999(110) ++++ mg/dLNOMO Healthcare Interpretation and review of laboratory resultsAbnormDayton Children's Hospital HealthcareKetones, UANegativeNegative - 160(16) ++++ mg/dLNOMS HealthcareLeukocytes, UAPositive Negative - 500+++ Regina/mcLNOMS HealthcareNitrite, UANegativeNegative - Positive NOMS HealthcarepH, UA7.55 - 9NOMS HealthcareProtein, UATraceNegative - 2000(20) ++++ mg/dLNOMS HealthcareSpec Grav, UA1.011 - 1.03NOMS HealthcareUrobilinogen, UA1.00.2 - 12 mg/dLNOMS HealthcareNOMS HealthcareUS OB BPP W NON-STRESSon 08-58-35[place]kbBu[place], [place] [address] Ultrasound Report Signed Patient: ЕКАТЕРИНА SUTHERLAND MR#: [id number] : 1995 Acct:[id number] Age/Sex: 28 / F ADM Date: 02/10/24 Loc: US Attending Dr: Marco Bales D.O. Ordering Physician: Marco Bales D.O. Date of Service: 02/10/24 Procedure(s): US OB BPP w non-stress Accession Number(s): [id number] cc: Marco Bales D.O.; Physician,Non-Staff M.DTammie [place] [address] Patient Name: ЕКАТЕРИНА SUTHERLAND MRN: [id number] date: 1995 Sex: F Assigned Patient Location: Current Patient Location: Accession/Order Number: [id number] Exam Date: 02/10/2024 13:59 Report Date: 02/10/2024 [...] M.D. Signed By: 02/10/241456 DD/ 54 TD/TT: [employer] Administrator:PARTHAadiologector Radiologist, - 02/10/2024 [place] [address] Ultrasound Report Signed Patient: ЕКАТЕРИНА SUTHERLAND MR#: [id number] : 1995 Acct:[id number] Age/Sex: 28 / F ADM Date: 02/10/24 Loc: US Attending Dr: Marco Bales D.O. Ordering Physician: Marco Bales D.O. Date of Service: 02/10/24 Procedure(s): US OB BPP w non-stress Accession Number(s): [id number] cc: Marco Bales D.O.; Physician,Non-Staff Lalit The [place] [id number] Patient Name: ЕКАТЕРИНА SUTHERLAND MRN: [id number] date: 1995 Sex: F Assigned Patient Location: US Current Patient Location: US Accession/Order Number: [id number] Exam Date: 02/10/2024 13:59 Report Date: 02/10/2024 [...] M.D. Signed By: 02/10/241456 DD/ 54 TD/TT: [employer] Administrator: KEEGAN HealthcareRadiology Study observation (narrative)NOMS HealthcareUS OB BPP W NON-STRESSOrdered By: Radiologist Radiology on 45-21-8436TIKE [facility] Work Phone: US OB BPP W NON-STRESSon [phone] [place] [phone] Ultrasound Report Signed Patient: ЕКАТЕРИНА SUTHERLAND MR#: [id number] : 1995 Acct:[id number] Age/Sex: 28 / F ADM Date: 02/03/24 Loc: US Attending Dr: Marco Bales D.O. Ordering Physician: Marco Bales D.O. Date of Service: 02/03/24 Procedure(s): US OB BPP w non-stress Accession Number(s): [id number] cc: Marco Bales D.O.; Physician,Non-Staff M.Nancy The [place] [id number] Patient Name: ЕКАТЕРИНА SUTHERLAND MRN: [id number] date: 1995 Sex: F Assigned Patient Location: US Current Patient Location: Accession/Order Number: [id number] Exam Date: 02/03/2024 14:20 Report Date: 02/04/2024 [...] M.D. Signed By: 02/04/24714 DD/ 1 TD/TT: [employer] Administrator:PARTHAadiologector, Radiologist, - 02/04/2024 The [place] [id number] Ultrasound Report Signed Patient: ЕКАТЕРИНА SUTHERLAND MR#: [id number] : 1995 Acct:[id number] Age/Sex: 28 / F ADM Date: 02/03/24 Loc: US Attending Dr: Mraco Bales D.O. Ordering Physician: Marco Bales D.O. Date of Service: 02/03/24 Procedure(s): US OB BPP w non-stress Accession Number(s): [id number] cc: Marco Bales D.O.; Physician,Non-Staff Lalit The [place] [id number] Patient Name: ЕКАТЕРИНА SUTHERLAND MRN: [id number] date: 1995 Sex: F Assigned Patient Location: US Current Patient Location: Accession/Order Number: [id number] Exam Date: 02/03/2024 14:20 Report Date: 02/04/2024 [...] M.D. Signed By: 02/04/24714 DD/ 0712 TD/TT: [employer] Administrator: KEEGAN HernandezRadiology Study observation (narrative)KEEGAN HealthcareUS OB BPP W NON-STRESSOrdered By: Radiologist Radiology on 25-69-6968IODP Healthcare Work Phone: US OB GROWTHon [phone] [address] Ultrasound Report Signed Patient: ЕКАТЕРИНА SUTHERLAND MR#: [id number] : 1995 Acct:[id number] Age/Sex: 28 / F ADM Date: 02/03/24 Loc: US Attending Dr: Marco Bales D.O. Ordering Physician: Marco Bales D.O. Date of Service: 02/03/24 Procedure(s): US OB growth Accession Number(s): [id number] cc: Marco Bales D.O.; Physician,Non-Staff MRom The [address] [address] Patient Name: ЕКАТЕРИНА SUTHERLAND MRN: [id number] date: 1995 Sex: F Assigned Patient Location: [facility] Current Patient Location: US Accession/Order Number: [id number] Exam Date: 02/03/2024 14:20 Report Date: 02/04/2024 [...] Signed By: 02/04/24 0739 DD/ 0736 TD/TT: [employer] Administrator:TBHRadiology, Radiologist, - 02/04/2024 [place] [address] Ultrasound Report Signed Patient: ЕКАТЕРИНА SUTHERLAND MR#: [id number] : 1995 Acct:[id number] Age/Sex: 28 / F ADM Date: 02/03/24 Loc: US Attending Dr: Marco Bales D.O. Ordering Physician: Marco Bales D.O. Date of Service: 02/03/24 Procedure(s): US OB growth Accession Number(s): [id number] cc: Marco Bales D.O.; Physician,Non-Staff Lalit The [place] [phone] Patient Name: ЕКАТЕРИНА SUTHERLAND MRN: [id number] date: 1995 Sex: F Assigned Patient Location: [facility] Current Patient Location: US Accession/Order Number: [id number] Exam Date: 02/03/2024 14:20 Report Date: 02/04/2024 [...] Tsang M.D. Signed By: 02/04/2439 DD/ TD/TT: [employer] Administrator: KEEGAN HealthcareRadiology Study observation (narrative)NOM HealthcareUS OB GROWTHOrdered By: Radiologist Radiology on 53-26-8554RVHU [facility] Work Phone: US OB BPP W NON-STRESSon [phone], [place] [address] Ultrasound Report Signed Patient: ЕКАТЕРИНА SUTHERLAND MR#: [id number] : 1995 Acct:[id number] Age/Sex: 28 / F ADM Date: 01/27/24 Loc: US Attending Dr: Marco Bales D.O. Ordering Physician: Marco Bales D.O. Date of Service: 01/27/24 Procedure(s): US OB BPP w non-stress Accession Number(s): [id number] cc: Marco Bales D.O.; Physician,Non-Staff Lalit The [address] [address] Patient Name: ЕКАТЕРИНА SUTHERLAND MRN: [id number] date: 1995 Sex: F Assigned Patient Location: US Current Patient Location: US Accession/Order Number: [id number] Exam Date: 01/27/2024 14:45 Report Date: 01/27/2024 [...] Signed By: 01/27/24 1521 DD/ 1519 TD/TT: [employer] Administrator:TBHRadiology, Radiologist, - 01/27/2024 [place] [address] Ultrasound Report Signed Patient: ЕКАТЕРИНА SUTHERLAND MR#: [id number] : 1995 Acct:[id number] Age/Sex: 28 / F ADM Date: 01/27/24 Loc: US Attending Dr: Marco Bales D.O. Ordering Physician: Marco Bales D.O. Date of Service: 01/27/24 Procedure(s): US OB BPP w non-stress Accession Number(s): [id number] cc: Marco Bales D.O.; Physician,Non-Staff Lalit The [address] [address] Patient Name: ЕКАТЕРИНА SUTHERLAND MRN: TBH:[id number] date: 1995 Sex: F Assigned Patient Location: US Current Patient Location: US Accession/Order Number: [id number] Exam Date: 01/27/2024 14:45 Report Date: 01/27/2024 [...] Signed By: 01/27/24 1521 DD/ 1519 TD/TT: Citrix Administrator: NOMS HealthcareRadiology Study observation (narrative)NOMS HealthcareUS OB BPP W NON-STRESSOrdered By: Radiologist Radiology on 26-05-1468JMTJ Healthcare Work Phone: US OB BPP W NON-STRESSon [phone], [place] [address] Ultrasound Report Signed Patient: ЕКАТЕРИНА SUTHERLAND MR#: [id number] : 1995 Acct:[id number] Age/Sex: 28 / F ADM Date: 01/20/24 Loc: US Attending Dr: Marco Bales D.O. Ordering Physician: Marco Bales D.O. Date of Service: 01/20/24 Procedure(s): US OB BPP w non-stress Accession Number(s): [id number] cc: Marco Bales D.O.; Physician,Non-Staff MRom The [address] [address] Patient Name: ЕКАТЕРИНА SUTHERLAND MRN: TBH:[id number] date: 1995 Sex: F Assigned Patient Location: [facility] Current Patient Location: Accession/Order Number: [id number] Exam Date: 01/20/2024 19:12 Report Date: 01/21/2024 [...] M.D. Signed By: 01/21/24715 DD/ 2 TD/TT: Citrix Administrator:TBHRadiology, Radiologist, MD - 01/21/2024 [place] [address] Ultrasound Report Signed Patient: ЕКАТЕРИНА SUTHERLAND MR#: [id number] : 1995 Acct:[id number] Age/Sex: 28 / F ADM Date: 01/20/24 Loc: US Attending Dr: Marco Bales D.O. Ordering Physician: Marco Bales D.O. Date of Service: 01/20/24 Procedure(s): US OB BPP w non-stress Accession Number(s): [id number] cc: Marco Bales D.O.; Physician,Non-Staff Lalit The [place] [address] Patient Name: ЕКАТЕРИНА SUTHERLAND MRN: TBH:[id number] date: 1995 Sex: F Assigned Patient Location: [facility] Current Patient Location: Accession/Order Number: [id number] Exam Date: 01/20/2024 19:12 Report Date: 01/21/2024 [...] M.D. Signed By: 01/21/24715 DD/ 2 TD/TT: Citrix Administrator: KEEGAN HealthcareRadiology Study observation (narrative)NOM HealthcareUS OB BPP W NON-STRESSOrdered By: Radiologist Radiology on 31-06-7595[facility] Work Phone: US OB BPP W NON-STRESSon [phone], [place] [address] Ultrasound Report Signed Patient: ЕКАТЕРИНА SUTHERLAND MR#: [id number] : 1995 Acct:[id number] Age/Sex: 28 / F ADM Date: 01/13/24 Loc: [facility] 250-[address]: Marco Bales D.O. Ordering Physician: Marco Bales D.O. Date of Service: 01/13/24 Procedure(s): US OB BPP w non-stress Accession Number(s): [id number] cc: Marco Bales D.O.; Physician,Non-Staff M.Nancy The [address] [address] Patient Name: ЕКАТЕРИНА SUTHERLAND MRN: TBH:[id number] date: 1995 Sex: F Assigned Patient Location: [facility] Current Patient Location: [facility] Accession/Order Number: [id number] Exam Date: 01/13/2024 14:07 Report Date: 01/13/2024 [...] Signed By: 01/13/24 1455 DD/ 1452 TD/TT: Citrix Administrator:TBHRadiology, Radiologist, - 01/16/2024 [place] [address] Ultrasound Report Signed Patient: ЕКАТЕРИНА SUTHERLAND MR#: [id number] : 1995 Acct:[id number] Age/Sex: 28 / F ADM Date: 01/13/24 Loc: [place] [address]- Attending Dr: Marco Bales D.O. Ordering Physician: Marco Bales D.O. Date of Service: 01/13/24 Procedure(s): US OB BPP w non-stress Accession Number(s): [id number] cc: Marco Bales D.O.; Physician,Non-Staff Lalit The [place] [address] Patient Name: ЕКАТЕРИНА SUTHERLAND MRN: [facility]:[id number] date: 1995 Sex: F Assigned Patient Location: [facility] Current Patient Location: [facility] Accession/Order Number: [id number] Exam Date: 01/13/2024 14:07 Report Date: 01/13/2024 [...] Signed By: 01/13/24 1455 DD/ 51 TD/TT: Citrix Administrator: KEEGAN HealthcareRadiology Study observation (narrative)NOM HealthcareUS OB BPP W NON-STRESSOrdered By: Radiologist Radiology on 79-47-9890LCRQ [facility] Work Phone: all CBC WITH AUTO DIFFon 89-10-6923CKOIXNIKT ABSOLUTE AUTO0.0NOMS HealthcareBasophils/100 WBC (Bld)0.1 %Low0.2 - 2.0 %[facility] Eosinophils/100 WBC (Bld)0.3 %Low0.9 - 7.0 %NOM HealthcareErythrocyte distribution width (RBC) [Ratio]13.2 %11.0 - 15.0 %NOM HealthcareHematocrit (Bld) [Volume fraction]31.2 %Low36.0 - 48.0 %NOM HealthcareHemoglobin (Bld) [Mass/Vol]10.1 g/dLLow12.0 - 16.0 g/dLNOMO HealthcareIMMATURE GRANULOCYTES ABS AUTO0.04HighNOMO HealthcareImmature granulocytes/100 WBC (Bld)0.6 %High0.0 - 0.5 %NOM HealthcareInterpretation and review of laboratory resultsAbnormalNOMO HealthcareLYMPHOCYTES ABSOLUTE AUTO1.0LowNOMO HealthcareLymphocytes/100 WBC (Bld)13.6 %Low20.5 - 60.0 %NOMCrittenton Behavioral HealthMCH (RBC) [Entitic mass]31.3 pg26.7 - 34.0 pgNOReynolds County General Memorial HospitalHC (RBC) [Mass/Vol]32.4 g/dL29.9 - 35.2 g/dLNOMO HealthcareMCV (RBC) [Entitic vol]96.6 fL81.0 - 99.0 fLNOMO HealthcareMONOCYTES ABSOLUTE AUTO0.4NOMS HealthcareMonocytes/100 WBC (Bld)5.2 %1.7 - 12.0 %NOM HealthcareNEUTROPHILS ABSOLUTE AUTO5.8NOMS HealthcareNeutrophils/100 WBC (Bld) 80.2 %High43.0 - 75.0 %[facility] HealthcarePlatelet mean volume (Bld) [Entitic vol] 11.1 fL9.5 - 13.5 fLNOMO HealthcareTBH EO #0.0NOMS HealthcareTBH DFI232UfjCGDH HealthcareTB RBC3.23LowNOMS HealthcareTBH WBC7.3NOMS HealthcareCLINISYNCNOMS HealthcareGLUCOSE 1 HOURon 43-18-8467Bqgwuvn [Mass/Vol]163 mg/dLHighNINF - 130 mg/dLOGDEN REG[facility]AL [facility] HealthcareInterpretation and review of laboratory resultsAbnormalNOMO HealthcareCLINISYNCNOMS HealthcareNo Panel Informationon 13-22-4735Uongapgbg Study observation (narrative)[facility] HospitalUS OB BPP W NON-STRESSon 57-46-2697[place] [address] Ultrasound Report Signed Patient: ЕКАТЕРИНА SUTHERLAND MR#: [id number] : 1995 Acct:[id number] Age/Sex: 28 / F ADM Date: 01/06/24 Loc: US Attending Dr: Marco Bales D.O. Ordering Physician: Marco Bales D.O. Date of Service: 01/06/24 Procedure(s): US OB BPP w non-stress Accession Number(s): [id number] cc: Marco Bales D.O.; Physician,Non-Staff MRom The [address] [address] Patient Name: ЕКАТЕРИНА SUTHERLAND MRN: TBH:[id number] date: 1995 Sex: F Assigned Patient Location: US Current Patient Location: US Accession/Order Number: [id number] Exam Date: 01/06/2024 14:30 Report Date: 01/07/2024 [...] Signed By: 01/07/24 0709 DD/ 0706 TD/TT: Citrix Administrator:GRAAHMHRadiology, Radiologist, MD - 01/07/2024 [place] [address] Ultrasound Report Signed Patient: ЕКАТЕРИНА SUTHERLAND MR#: [id number] : 1995 Acct:[id number] Age/Sex: 28 / F ADM Date: 01/06/24 Loc: US Attending Dr: Marco Bales D.O. Ordering Physician: Marco Bales D.O. Date of Service: 01/06/24 Procedure(s): US OB BPP w non-stress Accession Number(s): [id number] cc: Marco Bales D.O.; Physician,Non-Staff MRom The [place] [id number] Patient Name: ЕКАТЕРИНА SUTHERLAND MRN: TBH:[id number] date: 1995 Sex: F Assigned Patient Location: US Current Patient Location: US Accession/Order Number: [id number] Exam Date: 01/06/2024 14:30 Report Date: 01/07/2024 [...] M.D. Signed By: 01/07/24708 DD/ 5 TD/TT: Citrix Administrator: KEEGAN HernandezUS OB BPP W NON-STRESSOrdered By: Radiologist Radiology on 73-30-9115IKCM [facility] Work Phone: US OB GROWTHon [phone], [place] [address] Ultrasound Report Signed Patient: ЕКАТЕРИНА SUTHERLAND MR#: [id number] : 1995 Acct:[id number] Age/Sex: 28 / F ADM Date: 01/06/24 Loc: US Attending Dr: Marco Bales D.O. Ordering Physician: Marco Bales D.O. Date of Service: 01/06/24 Procedure(s): US OB growth Accession Number(s): [id number] cc: Marco Bales D.O.; Physician,Non-Staff Lalit The [address] [address] Patient Name: ЕКАТЕРИНА SUTHERLAND MRN: TBH:[id number] date: 1995 Sex: F Assigned Patient Location: US Current Patient Location: US Accession/Order Number: [id number] Exam Date: 01/06/2024 14:30 Report Date: 01/07/2024 [...] Signed By: 01/07/24 0708 DD/ 0706 TD/TT: Citrix Administrator:TBHRadiology, Radiologist, - 01/07/2024 [place] [address] Ultrasound Report Signed Patient: ЕКАТЕРИНА SUTHERLAND MR#: [id number] : 1995 Acct:[id number] Age/Sex: 28 / F ADM Date: 01/06/24 Loc: US Attending Dr: Marco Bales D.O. Ordering Physician: Marco Bales D.O. Date of Service: 01/06/24 Procedure(s): US OB growth Accession Number(s): [id number] cc: Marco Bales D.O.; Physician,Non-Staff Lalit The [address] [address] Patient Name: ЕКАТЕРИНА SUTHERLAND MRN: [facility]:[id number] date: 1995 Sex: F Assigned Patient Location: US Current Patient Location: US Accession/Order Number: [id number] Exam Date: 01/06/2024 14:30 Report Date: 01/07/2024 [...] M.D. Signed By: 01/07/2408 DD/ 5 TD/TT: Citrix Administrator: KEEGAN Barakat OB GROWTHOrdered By: Radiologist Radiology on 73-53-5894YUYM Pond[facility] Work Phone: US OB BPP W NON-STRESSon [phone] [address] Ultrasound Report Signed Patient: ЕКАТЕРИНА SUTHERLAND MR#: [id number] : 1995 Acct:[id number] Age/Sex: 28 / F ADM Date: 12/30/23 Loc: [facility] 250-[address]: Marco Bales D.O. Ordering Physician: Marco Bales D.O. Date of Service: 12/30/23 Procedure(s): US OB BPP w non-stress Accession Number(s): [id number] cc: Marco Bales D.O.; Physician,Non-Staff M.Nancy The [place] [address] Patient Name: ЕКАТЕРИНА SUTHERLAND MRN: [facility]:[id number] date: 1995 Sex: F Assigned Patient Location: [facility] Current Patient Location: [facility] Accession/Order Number: [id number] Exam Date: 12/30/2023 14:07 Report Date: 12/30/2023 [...] Signed By: 12/30/23 1443 DD/ 1440 TD/TT: Citrix Administrator:PARTHAadiology, Radiologist, - 12/30/2023 [place] [address] Ultrasound Report Signed Patient: ЕКАТЕРИНА SUTHERLAND MR#: [id number] : 1995 Acct:[id number] Age/Sex: 28 / F ADM Date: 12/30/23 Loc: [facility] 250-[address]: Marco Bales D.O. Ordering Physician: Marco Bales D.O. Date of Service: 12/30/23 Procedure(s): US OB BPP w non-stress Accession Number(s): [id number] cc: Marco Bales D.O.; Physician,Non-Staff MRom The [place] [address] Patient Name: ЕКАТЕРИНА SUTHERLAND MRN: [facility]:[id number] date: 1995 Sex: F Assigned Patient Location: [facility] Current Patient Location: [facility] Accession/Order Number: [id number] Exam Date: 12/30/2023 14:07 Report Date: 12/30/2023 [...] Signed By: 12/30/23 1443 DD/ 144 TD/TT: Citrix Administrator: NOMJovany HealthcareRadiology Study observation (narrative)NOMS HealthcareUS OB BPP W NON-STRESSOrdered By: Radiologist Radiology on 46-10-4582SLRH [facility] Work Phone: US OB BPP W NON-STRESSon [phone], [place] [address] Ultrasound Report Signed Patient: ЕКАТЕРИНА SUTHERLAND MR#: [id number] : 1995 Acct:[id number] Age/Sex: 28 / F ADM Date: 12/23/23 Loc: [facility] 250-[address]: Marco Bales D.O. Ordering Physician: Marco Bales D.O. Date of Service: 12/23/23 Procedure(s): US OB BPP w non-stress Accession Number(s): [id number] cc: Marco Bales D.O.; Physician,Non-Staff MRom The [place] [address] Patient Name: ЕКАТЕРИНА SUTHERLAND MRN: [facility]:[id number] date: 1995 Sex: F Assigned Patient Location: [facility] Current Patient Location: [facility] Accession/Order Number: [id number] Exam Date: 12/23/2023 14:15 Report Date: 12/23/2023 [...] Signed By: 12/23/23 1501 DD/ 1458 TD/TT: Citrix Administrator:GRAHAMHRadiology, Radiologist, - 12/23/2023 [place] [address] Ultrasound Report Signed Patient: ЕКАТЕРИНА SUTHERLAND MR#: [id number] : 1995 Acct:[id number] Age/Sex: 28 / F ADM Date: 12/23/23 Loc: [facility] 250-[address]: Marco Bales D.O. Ordering Physician: Marco Bales D.O. Date of Service: 12/23/23 Procedure(s): US OB BPP w non-stress Accession Number(s): [id number] cc: Marco Bales D.O.; Physician,Non-Staff Lalit The [place] [id number] Patient Name: ЕКАТЕРИНА SUTHERLAND MRN: [facility]:[id number] date: 1995 Sex: F Assigned Patient Location: [facility] Current Patient Location: [facility] Accession/Order Number: [id number] Exam Date: 12/23/2023 14:15 Report Date: 12/23/2023 [...] Signed By: 12/23/23 1501 DD/ 1458 TD/TT: Citrix Administrator: NOMJovany HealthcareRadiology Study observation (narrative)NOMS HealthcareUS OB BPP W NON-STRESSOrdered By: Radiologist Radiology on 66-42-6856VKHM Healthcare Work Phone: US OB BPP W NON-STRESSon [phone], [place] [address] Ultrasound Report Signed Patient: ЕКАТЕРИНА SUTHERLAND MR#: [id number] : 1995 Acct:[id number] Age/Sex: 28 / F ADM Date: 12/16/23 Loc: [facility] 250-[address]: Marco Bales D.O. Ordering Physician: Marco Bales D.O. Date of Service: 12/16/23 Procedure(s): US OB BPP w non-stress Accession Number(s): [id number] cc: Marco Bales D.O.; Physician,Non-Staff Lalit The [place] [id number] Patient Name: ЕКАТЕРИНА SUTHERLAND MRN: [id number] date: 1995 Sex: F Assigned Patient Location: [facility] Current Patient Location: [facility] Accession/Order Number: [id number] Exam Date: 12/16/2023 14:05 Report Date: 12/16/2023 [...] Signed By: 12/16/23 1432 DD/ 1430 TD/TT: Citrix Administrator:PARTHAadiology, Radiologist, - 12/18/2023 [place] [address] Ultrasound Report Signed Patient: ЕКАТЕРИНА SUTHERLAND MR#: [id number] : 1995 Acct:[id number] Age/Sex: 28 / F ADM Date: 12/16/23 Loc: [facility] 250-[address]: Marco Bales D.O. Ordering Physician: Marco Bales D.O. Date of Service: 12/16/23 Procedure(s): US OB BPP w non-stress Accession Number(s): [id number] cc: Marco Bales D.O.; Physician,Non-Staff Lalit [place] [id number] Patient Name: ЕКАТЕРИНА SUTHERLAND MRN: [facility]:[id number] date: 1995 Sex: F Assigned Patient Location: [facility] Current Patient Location: [facility] Accession/Order Number: [id number] Exam Date: 12/16/2023 14:05 Report Date: 12/16/2023 [...] Signed By: 12/16/23 143 DD/ 1430 TD/TT: Citrix Administrator: KEEGAN HealthcareRadiology Study observation (narrative)KEEGAN HealthcareUS OB BPP W NON-STRESSOrdered By: Radiologist Radiology on 51-51-8552FAKA [facility] Work Phone: [place] OB BPP W NON-STRESSon [phone] [phone] Ultrasound Report Signed Patient: ЕКАТЕРИНА SUTHERLAND MR#: [id number] : 1995 Acct:[id number] Age/Sex: 28 / F ADM Date: 12/09/23 Loc: [facility] 250-[address]: Marco Bales D.O. Ordering Physician: Marco Bales D.O. Date of Service: 12/09/23 Procedure(s): US OB BPP w non-stress Accession Number(s): [id number] cc: Marco Bales D.O.; Physician,Non-Staff Lalit The [place] [address] Patient Name: ЕКАТЕРИНА SUTHERLAND MRN: [facility]:[id number] date: 1995 Sex: F Assigned Patient Location: [facility] Current Patient Location: [facility] Accession/Order Number: [id number] Exam Date: 12/09/2023 14:32 Report Date: 12/09/2023 [...] Signed By: 12/09/23 1521 DD/ 1519 TD/TT: Citrix Administrator:PARTHAadiologector, Radiologist, - 12/09/2023 [place] [address] Ultrasound Report Signed Patient: ЕКАТЕРИНА SUTHERLAND MR#: [id number] : 1995 Acct:[id number] Age/Sex: 28 / F ADM Date: 12/09/23 Loc: [facility] 250-[address]: Marco Bales D.O. Ordering Physician: Marco Bales D.O. Date of Service: 12/09/23 Procedure(s): US OB BPP w non-stress Accession Number(s): [id number] cc: Marco Bales D.O.; Physician,Non-Staff Lalit [place] [phone] Patient Name: ЕКАТЕРИНА SUTHERLAND MRN: [facility]:[id number] date: 1995 Sex: F Assigned Patient Location: [facility] Current Patient Location: [facility] Accession/Order Number: [id number] Exam Date: 12/09/2023 14:32 Report Date: 12/09/2023 [...] Signed By: 12/09/23 1521 DD/ 1519 TD/TT: Citrix Administrator: KEEGAN HealthcareRadiology Study observation (narrative)NOMJovany HealthcareUS OB BPP W NON-STRESSOrdered By: Radiologist Radiology on 42-36-9165TJPY Healthcare Work Phone: [place] OB GROWTHon [phone] [place] [phone] Ultrasound Report Signed Patient: ЕКАТЕРИНА SUTHERLAND MR#: [id number] : 1995 Acct:[id number] Age/Sex: 28 / F ADM Date: 12/09/23 Loc: [facility] 250-[address]: Marco Bales D.O. Ordering Physician: Marco Bales D.O. Date of Service: 12/09/23 Procedure(s): US OB growth Accession Number(s): [id number] cc: Marco Bales D.O.; Physician,Non-Staff Lalit [place] [address] Patient Name: ЕКАТЕРИНА SUTHERLAND MRN: [facility]:[id number] date: 1995 Sex: F Assigned Patient Location: [facility] Current Patient Location: [facility] Accession/Order Number: [id number] Exam Date: 12/09/2023 14:32 Report Date: 12/09/2023 [...] Signed By: 12/09/23 1522 DD/ 1520 TD/TT: Citrix Administrator:PARTHAadiologector, Radiologist, - 12/09/2023 [place] [address] Ultrasound Report Signed Patient: ЕКАТЕРИНА SUTHERLAND MR#: [id number] : 1995 Acct:[id number] Age/Sex: 28 / F ADM Date: 12/09/23 Loc: [facility] 250-[address]: Marco Bales D.O. Ordering Physician: Marco Bales D.O. Date of Service: 12/09/23 Procedure(s): US OB growth Accession Number(s): [id number] cc: Marco Bales D.O.; Physician,Non-Staff Lalit The [place] [address] Patient Name: ЕКАТЕРИНА SUTHERLAND MRN: [id number] date: 1995 Sex: F Assigned Patient Location: [facility] Current Patient Location: [facility] Accession/Order Number: [id number] Exam Date: 12/09/2023 14:32 Report Date: 12/09/2023 [...] M.D. Signed By: 12/09/231521 DD/ 19 TD/TT: Citrix Administrator: [facility] HealthcareRadiology Study observation (narrative)NOMS HealthcareUS OB GROWTHOrdered By: Radiologist Radiology on 17-81-8993TDMI [facility] Work Phone: Urinalysis macro (dipstick) panel (U)on 11-27-2023 Bilirubin, UANegativeNegative - 4(70) +++ mg/dLNOMS HealthcareBlood, UANegative Negative - 50 Felice/mcLNOMS HealthcareClarity, UAClearNOMS HealthcareColor, UA YellowNOMS HealthcareGlucose, UANegativeNegative - 2000(110) ++++ mg/dLNOMS HealthcareInterpretation and review of laboratory resultsNormalNOMO Healthcare Ketones, UANegativeNegative - 160(16) ++++ mg/dLNOMS HealthcareLeukocytes, UA NegativeNegative - 500+++ Regina/mcLNOMS HealthcareNitrite, UANegativeNegative - PositiveNOMS HealthcarepH, UA5.55 - 9NOMS HealthcareProtein, UANegativeNegative - 2000(20) ++++ mg/dLNOMS HealthcareSpec Grav, UA1.0301 - 1.03NOMS Healthcare Urobilinogen, UA0.20.2 - 12 mg/dLNOMS HealthcareNOMS HealthcarePREG QUANT HCGon 68-36-4824RFU QUANT17 mIU/mLNormalSuburban Community Hospital & Brentwood HospitalComment on above: Performed By: #### PREGQNT #### [facility] [address] [place] [address] Dr. Anna RomeroMercy Health Fairfield HospitalComment on above: Result Comment: 5-50 0.2-1 WEEK 50-500 1-2 WEEKS 100-5,000 2-3 WEEKS 500-10,000 3-4 WEEKS 1,000-50,000 4-5 WEEKS 10,000-100,000 5-6 WEEKS 15,000-200,000 6-8 WEEKS 10,000-100,000 2-3 MONTHSPerformed By: #### PREGQNT #### [facility] [address] [place] [address] Dr. Anna Kline QUANT HCGon 41-82-8855JSX HMAJI414 mIU/mLNormalSuburban Community Hospital & Brentwood HospitalComment on above:Performed By: #### GAYLEREleanor, GRASTCX #### [facility] [address] [place] [address] Dr. Anna Alfonso RANGESEE BELOWMercy Health Defiance HospitalComment on above: Result Comment: 5-50 0.2-1 WEEK 50-500 1-2 WEEKS 100-5,000 2-3 WEEKS 500-10,000 3-4 WEEKS 1,000-50,000 4-5 WEEKS 10,000-100,000 5-6 WEEKS 15,000-200,000 6-8 WEEKS 10,000-100,000 2-3 MONTHSPerformed By: #### SSCRN, GRASTCX #### [facility] [address] [place] [address] Dr. Anna Martin AND RH TYPEon 62-40-9393WTW and Rh group Nom (Bld)ABO Rh Typing A Rh PositiveMercy Health Defiance HospitalComment on above:Performed By: #### SSCRN, GRASTCX #### [facility] [address] [place] [address] Dr. Castillo ChangER URINE PROFILEon 81-06-2181Lcnegxyrr Ql (U)NegativeNormal NEGATIVESuburban Community Hospital & Brentwood HospitalComment on above:Performed By: #### JD PAZRO #### [facility] [address] [place] [address] Dr. Anna RomeroClarity (U)CLEARNormalCLEARSuburban Community Hospital & Brentwood HospitalComment on above: Performed By: #### BRANDI UMICRO #### [facility] [address] [place] [address] [address] Anna Lezama (U)YELLOWNormalYELLOWSuburban Community Hospital & Brentwood HospitalComment on above: Performed By: #### BRANDI UMICRO #### [facility] [address] [place] [address] [address] Anna Karimi micrscopic examination will be performed if indicated. NormalThe [facility] Orthopedic CenterComment on above:Performed By: #### BRANDI UMICRO #### [facility] [address] [place] [address] [address] Anna RomeroGlucose Ql (U)NegativeNormalNEGATIVESuburban Community Hospital & Brentwood HospitalComment on above:Performed By: #### BRANDI UMICRO #### [facility] [address] [address] [address] Anna RomeroHemoglobin Ql (U)LARGEAbnormalNEGATIVEKnox Community Hospital on above:Performed By: #### BRANDI UMICRO #### [facility] [address] [address] [address] Anna Hirschones Ql (U)NegativeNormalNEGATIVESuburban Community Hospital & Brentwood HospitalComment on above:Performed By: #### BRANDI UMICRO #### [facility] [address] [address] [address] Anna RomeroLEUKOCYTESNegativeNormalNEGATIVESuburban Community Hospital & Brentwood HospitalComment on above:Performed By: #### BRANDI UMICRO #### [facility] [address] [address] [address] Anna RomeroNitrite Ql (U)NegativeNormalNEGATIVESuburban Community Hospital & Brentwood HospitalComment on above:Performed By: #### BRANDI UMICRO #### [facility] [address] [address] [address] Anna RmoeropH (U)5.5 [pH]Normal5-9Sub[facility] Community Hospital & Brentwood HospitalComment on above: Performed By: #### BRANDI UMICRO #### [facility] [address] [place] [address] Dr. Anna Gamble GRAVITY>=1.611Rpwhjcav3.005-<=1.025The [facility] Comment on above:Performed By: #### FANG PAZICRO #### [facility] [address] [place] [address] Dr. Anna Carmona PROTEINTRACENormalNEGATIVE/ TRACEThe [facility] Orthopedic CenterComment on above:Performed By: #### BRANDI UMICRO #### [facility] [address] [place] [address] Dr. Anna Esparza MICRO INDINDKindred HealthcareComment on above: Performed By: #### JD PAZRO #### [facility] [address] [place] [address] Dr. Anna Currybilinogen Qn (U)0.2 {Joel'U}/dLNormal0.2 - 1.0The [facility] CenterComment on above:Performed By: #### JD PAZRO #### [facility] [address] [place] [address] Dr. Anna Kline QUANT HCGon 60-87-3590RNF CYQSY5802 mIU/mLNormalSuburban Community Hospital & Brentwood HospitalComment on above:Performed By: #### GAYLEREleanor, GRASTCX #### [facility] [address] [place] [address] Dr. Anna Alfonso RANGESEE Kettering HealthComment on above: Result Comment: 5-50 0.2-1 WEEK 50-500 1-2 WEEKS 100-5,000 2-3 WEEKS 500-10,000 3-4 WEEKS 1,000-50,000 4-5 WEEKS 10,000-100,000 5-6 WEEKS 15,000-200,000 6-8 WEEKS 10,000-100,000 2-3 MONTHSPerformed By: #### GAYLERN, GRASTCX #### [facility] [address] [place] [address] Dr. Anna Mazariegos MICROSCOPIC ONLYon [id number] SEEN [facility] on above:Performed By: #### ERUR, UMICRO #### [facility] [address] [place] [address] Dr. Anna Coy identified Cx Nom (U)NOT INDICATEDNormalThe [facility] on above:Performed By: #### ERUR, UMICRO #### [facility] [address] [place] [address] Dr. Anna Carrera SEENNormalNONE SEENWayne Hospital on above:Performed By: #### ERUR, UMICRO #### [facility] [address] [place] [address] Dr. Anna Okeefe LM Nom (Urine sed)NONE SEENNormalNONE SEENWayne Hospital on above:Performed By: #### BRANDI UMICRO #### [facility] [address] [place] [address] Dr. Anna Nicolethelial cells LM Ql (Urine sed)RARENormalNONE SEEN /RAREThe [facility] on above:Performed By: #### BRANDI UMICRO #### [facility] [address] [place] [address] Dr. Anna ArguetaCOUSTRACEAbnormalNONE SEENWayne Hospital on above:Performed By: #### BRANDI UMICRO #### [facility] [address] [place] [address] Dr. Anna TonyEbkaoHXT1-7Totswgtr4-4Aqm [facility] on above:Performed By: #### ERUR, UMICRO #### [facility] [address] [place] [address] Dr. Anna RomeroWBC0-2AbnormalNONE SEENWayne Hospital on above: Performed By: #### ERUR, UMICRO #### [facility] [address] [place] [address] Dr. Anna RomeroUS PREG TVon [id number] PREG TVEXAM: US PREG TV HISTORY: , [...] authenticated by: LUDWIG JEAN BAPTISTE Date: 2023-01-21 16:54NoL[facility] URINE PROFILEon [id number] Ql (U)NegativeNormal NEGATIVESuburban Community Hospital & Brentwood HospitalComment on above:Performed By: #### ERUR #### [facility] [address] [address] [address] Anna Gomez (U)CLEARNormalCLEARSuburban Community Hospital & Brentwood HospitalComment on above: Performed By: #### ERUR #### [facility] [address] [address] [address] Anna Lezama (U)YELLOWNormalYELLOWSuburban Community Hospital & Brentwood HospitalComment on above: Performed By: #### ERUR #### [facility] [address] [address] [address] Anna Karimi micrscopic examination will be performed if indicated. NormalThe [facility] CenterComment on above:Performed By: #### ERUR #### [facility] [address] [place] [address] Dr. Anna RomeroGlucose Ql (U)NegativeNormalNEGATIVESuburban Community Hospital & Brentwood HospitalComment on above:Performed By: #### ERUR #### [facility] [address] [place] [address] Dr. Anna RomeroHemoglobin Ql (U)NegativeNormalNEGATIVEKnox Community Hospital on above:Performed By: #### ERUR #### [facility] [address] [place] [address] Dr. Anna RomeroKetones Ql (U)NegativeNormalNEGATIVESuburban Community Hospital & Brentwood HospitalComment on above:Performed By: #### ERUR #### [facility] [address] [place] [address] Dr. Anna RomeroLEUKOCYTESNegativeNormalNEGATIVESuburban Community Hospital & Brentwood HospitalComment on above:Performed By: #### ERUR #### [facility] [address] [place] [address] Dr. Anna RomeroNitrite Ql (U)NegativeNormalNEGATIVESuburban Community Hospital & Brentwood HospitalComment on above:Performed By: #### ERUR #### [facility] [address] [place] [address] Dr. Anna RomeropH (U)6.5 [pH]Normal5-9[facility] Brent[facility] HospitalComment on above: Performed By: #### ERUR #### [facility] [address] [place] [address] Dr. Anna RomeroSPEC GRAVITY1.596Warvsa9.005-<=1.025[facility] & Brentwood HospitalComment on above:Performed By: #### ERUR #### [facility] [address] [place] [address] Dr. Anna RomeroUA PROTEINTRACENormalNEGATIVE/ TRACEThe [facility] CenterComment on above:Performed By: #### ERUR #### [facility] [address] [place] [address] Dr. Anna Esparza MICRO INDNOT INDICATEDNormalThe [facility] CenterComment on above:Performed By: #### ERUR #### [facility] [address] [place] [address] Dr. Anna RomeroUrobilinogen Qn (U)0.2 {Joel'U}/dLNormal0.2 - 1.0The [facility] CenterComment on above:Performed By: #### ERUR #### [facility] [address] [place] [address] Dr. Anna RomeroGROUP A STREP CULTUREon 01-08-2023S. pyogenes Ag Ql (Unsp spec) Culture Observations: NEGATIVE FOR GROUP A STREPTOCOCCUS.NormalThe [facility] CenterComment on above: Performed By: #### SSCRN, GRASTCX #### [facility] [address] [place] [address] Dr. Anna RomeroSTREPT SCREENon [id number] SCREEN ANegativeNormalNEGATIVEThe [facility] CenterComment on above:Performed By: #### SSCRN, GRASTCX #### [facility] [address] [place] [address] Dr. Anna RomeroSYMPTOMATIC COVID-19 ANTIGENon 10-70-5095KMM StatementSEE BELOW NormalThe [facility] Eastment on above:Result Comment: This test has not [...] revoked sooner.Performed By: #### SSCREleanor GRASTCX #### [facility] [address] [place] [address] Dr. Anna PennyRS-CoV-2 (COVID-19) RNA DAVY+probe Ql (Unsp spec)Positive AbnormalNEGATIVEThe [facility] CenterComment on above:Performed By: #### GAYLEREleanor GRASTCX #### [facility] [address] [place] [address] Dr. Anna Welsh PREG TVon [id number] PREG TVEXAMINATION: US PREG TV HISTORY: Irregular [...] authenticated by: GENI CABRAL Date: 2022-05-31 19:46NormalThe [facility] HospitalBILIRUBIN TOTALon 02-23-7903Gezmebmue [Mass/Vol]0.3 mg/dLNormal 0.2-1.0The [facility] CenterComment on above:Performed By: #### TBIL #### [facility] [address] [place] [address] Dr. Anna RomeroCBC AUTO DIFFon [id number] #0.0 103/ulNormal0.0-0.1The [facility] CenterComment on above:Performed By: #### CBC #### [facility] [address] [place] [address] Dr. Anna RomeroBasophils/100 WBC (Bld)0.4 %Normal0.2-2.0The [facility] Comment on above:Performed By: #### CBC #### [facility] [address] [place] [address] Dr. Anna Davis #0.0 103/ulNormal0.0-0.7The [facility] CenterComment on above: Performed By: #### CBC #### [facility] [address] [place] [address] Dr. Anna Renteriaosinophils/100 WBC (Bld)0.2 %Critically low0.9-7.0The [facility] CenterComment on above:Performed By: #### CBC #### [facility] [address] [place] [address] Dr. Anna Renteriarythrocyte distribution width (RBC) [Ratio]12.8 %Fhbprb21.0-15.0 The [facility] CenterComment on above:Performed By: #### CBC #### [facility] [address] [place] [address] Dr. Anna RomeroHematocrit (Bld) [Volume fraction]39.2 %Kfqrbc13.0-48.0The [facility] CenterComment on above:Performed By: #### CBC #### [facility] [address] [place] [address] Dr. Anna RomeroHemoglobin (Bld) [Mass/Vol]12.9 g/lUMjetxs47.0-16.0The [facility] CenterComment on above:Performed By: #### CBC #### [facility] [address] [place] [address] Dr. Anna Cardoza #0.01 10e3/ulNormal0.00-0.03The [facility] CenterComment on above:Performed By: #### CBC #### [facility] [address] [place] [address] Dr. Anna Cardoza %0.2 %Normal0.0-0.5The [facility] CenterComment on above: Performed By: #### CBC #### [facility] [address] [place] [address] Dr. Yilan ChangLYMPH #1.6 103/ulNormal1.2-3.8The [facility] CenterComment on above:Performed By: #### CBC #### [facility] [address] [place] [address] Dr. Anna Schmidtmphocytes/100 WBC (Bld)29.8 %Ymbzhm65.5-60.0The [facility] CenterComment on above:Performed By: #### CBC #### [facility] [address] [place] [address] Dr. Anna Swain DIFF REQNONormalThe [facility] CenterComment on above: Performed By: #### CBC #### [facility] [address] [place] [address] Dr. Anna Flores (RBC) [Entitic mass]31.8 cnRqzbsp37.7-34.0The [facility] CenterComment on above:Performed By: #### CBC #### [facility] [address] [place] [address] Dr. Anna Flores (RBC) [Mass/Vol]32.9 g/nNGvpgno12.9-35.2The [facility] CenterComment on above:Performed By: #### CBC #### [facility] [address] [place] [address] Dr. Anna Anderson (RBC) [Entitic vol]96.6 aFSwpjem35.0-99.0The [facility] CenterComment on above:Performed By: #### CBC #### [facility] [address] [place] [address] Dr. Anna Alamo #0.4 103/ulNormal0.3-0.8The [facility] CenterComment on above:Performed By: #### CBC #### [facility] [address] [place] [address] Dr. Anna Parksocytes/100 WBC (Bld)7.2 %Normal1.7-12.0The [facility] Comment on above:Performed By: #### CBC #### [facility] [address] [place] [address] Dr. Anna Jasso #3.3 103/ulNormal1.4-6.5The [facility] CenterComment on above:Performed By: #### CBC #### [facility] [address] [place] [address] Dr. Anna Hirschutrophils/100 WBC (Bld)62.2 %Jaynwg71.0-75.0The [facility] CenterComment on above:Performed By: #### CBC #### [facility] [address] [place] [address] Dr. Anna RomeroPlatelet mean volume (Bld) [Entitic vol]10.0 fLNormal9.5-13.5The [facility] CenterComment on above:Performed By: #### CBC #### [facility] [address] [place] [address] Dr. Anna RomeroPLT153 103/ydPriadt877-394Wqr [facility] CenterComsurgeons [facility] on above: Performed By: #### CBC #### [facility] [address] [place] [address] Dr. Anna RomeroRBC4.06 106/ulCritically low4.20-5.40The [facility] CenterComment on above:Performed By: #### CBC #### [facility] [address] [place] [address] Dr. Anna RomeroWBC5.3 103/ulNormal4.0-11.0The [facility] CenterComsurgeons [facility] on above: Performed By: #### CBC #### [facility] [address] [place] [address] Dr. Anna Rockwell T3on 52-78-1669PHEO T33.18 pg/mlLNormal2.18-3.98The [facility] CenterComsurgeons [facility] on above:Performed By: #### SSCRN GRASTCX #### [facility] [address] [place] [address] Dr. Anna Rockwell T4on 76-73-6726Dbkt T4 [Mass/Vol]1.08 ng/dLNormal0.76-1.46 The [facility] CenterComment on above:Performed By: #### FT4 #### [facility] [address] [place] [address] Dr. Anna RomeroPROF 14(COMP METB)on 97-99-4861Kassaru [Mass/Vol]4.3 g/dLNormal 3.4-5.0The [facility] CenterComment on above:Performed By: #### SSCRN, GRASTCX #### [facility] [address] [place] [address] Dr. Anna oRmeroAlbumin/Globulin [Mass ratio]1.2 {ratio}NormalThe [facility] CenterComment on above:Performed By: #### SSCRN, GRASTCX #### [facility] [address] [place] [address] Dr. Anna Santos [Catalytic activity/Vol]60 U/TQbsnil40-193Ybm [facility] CenterComment on above:Performed By: #### SSCRN, GRASTCX #### [facility] [address] [place] [address] Dr. Anna Brink [Catalytic activity/Vol]25 U/UQrrqbn10-16Ehn [facility] CenterComment on above:Performed By: #### SSCRN, GRASTCX #### [facility] [address] [place] [address] Dr. Anna Williamson gap [Moles/Vol]13.8 mmol/LNormalThe [facility] Comment on above:Performed By: #### SSCRN, GRASTCX #### [facility] [address] [place] [address] Dr. Anna RomeroAST [Catalytic activity/Vol]21 U/LPcmocf58-21Dtl [facility] CenterComment on above:Performed By: #### SSCRN, GRASTCX #### [facility] [address] [place] [address] Dr. Anna RomeroCalcium [Mass/Vol]9.4 mg/dLNormal8.5-10.1The [facility] Comment on above:Performed By: #### SSCRN, GRASTCX #### [facility] [address] [place] [address] Dr. Anna RomeroChloride [Moles/Vol]101 mmol/XHagsth95-365Kmo [facility] Comment on above:Performed By: #### SSCRN, GRASTCX #### [facility] [address] [address] [address] Anna RomeroCO2 [Moles/Vol]26.8 mmol/WLmitgh15.0-32.0The [facility] Comment on above:Performed By: #### SSCRN, GRASTCX #### [facility] [address] [address] [address] Anna RomeroCreatinine [Mass/Vol]0.87 mg/dLNormal0.55-1.02The [facility] CenterComment on above:Performed By: #### SSCRN, GRASTCX #### [facility] [address] [address] [address] Castillo ChangEGFR-AF FRENCH>60Normal>=60The [facility] CenterComment on above:Performed By: #### SSCRN, GRASTCX #### [facility] [address] [address] [address] Anna RenteriaGFR-NON AF FRENCH>60Normal>=60The [facility] CenterComment on above:Performed By: #### SSCRN, GRASTCX #### [facility] [address] [address] [address] Anna RomeroGlobulin (S) [Mass/Vol]3.5 g/dLNormalThe [facility] CenterComment on above:Performed By: #### SSCRN, GRASTCX #### [facility] [address] [address] [address] Anna RomeroGlucose [Mass/Vol]80 mg/tWLjxqlj06-434Fsf [facility] Comment on above:Performed By: #### SSCRN, GRASTCX #### [facility] [address] [address] [address] nAna RomeroPotassium [Moles/Vol]3.6 mmol/LNormal3.5-5.1The [facility] Comment on above:Performed By: #### SSCRN, GRASTCX #### [facility] [address] [place] [address] Dr. Anna RomeroProtein [Mass/Vol]7.8 g/dLNormal6.4-8.2The [facility] Comment on above:Performed By: #### SSCRN, GRASTCX #### [facility] [address] [place] [address] Dr. Anna RomeroSodium [Moles/Vol]138 mmol/QZltuth087-808Boj [facility] Comment on above:Performed By: #### SSCREleanor, GRASTCX #### [facility] [address] [place] [address] Dr. Anna RomeroUrea nitrogen [Mass/Vol]12.0 mg/dLNormal7.0-18.0[facility] HospitalComment on above:Performed By: #### GAYLEREleanor GRASTCX #### [facility] [address] [place] [address] Dr. Anna Buenrostro nitrogen/Creatinine [Mass ratio]13.8 mg/mgNoChillicothe VA Medical CenterComment on above:Performed By: #### GAYLEREleanor GRASTCX #### [facility] [address] [place] [address] Dr. Anna Marshall 68-68-5998FES7.442 uIU/mLNormal0.358-3.740[facility] HospitalComment on above:Performed By: #### GAYLEREleanor, GRASTCX #### [facility] [address] [place] [address] Dr. Anna Gu [facility] BELOWMercy Health Defiance HospitalComment on above: Result Comment: <0.34 UIU/ml HYPERTHYROID 0.34-5.60 UIU/ml EUTHYROID >5.60 UIU/ml HYPOTHYROIDPerformed By: #### SSCRN, GRASTCX #### [facility] [address] [place] [address] Dr. Anna Romero Vital Signs Date TimeVital SignValuePerforming GpoxncediCrgzlfgf12-29-6503 10:14-0400Body mass index (BMI) [Ratio]25.74 kg/m2Rosana Galeanoey PA Work Phone: [phone] [place], [place] [address]Jmtiboxogi39-56-3500 10:14-0400Body rszdha91.35 kgAmy Salem PA Work Phone: [phone] [place], [place] [address]Rbhlxqqujv06-33-3382 10:14-0400Diastolic blood irxtbtjh08 mm[Hg]Rosana Galeanoey PA Work Phone: [phone] [place], [place] [address]Qkhvkkmcyr76-33-1251 10:14-0400Systolic blood yycmgztq429 mm[Hg]Rosana Marcano PA Work Phone: [phone] [place], [place] 7008310-08-2025 10:08-0400Body mass index (BMI) [Ratio]24.29 kg/z2GpgstexkDrew Solorio MAILING MACHINE HELPER Work Phone: [phone] [place], [place] [address]Croaafvkrv46-84-4004 10:08-0400Body tkfwge98.27 kgDrew Solorio MAILING MACHINE HELPER Work Phone: [phone] [place], [place] 7008310-08-2025 10:08-0400Diastolic blood mm[Hg]Drew Solorio MAILING MACHINE HELPER Work Phone: [phone] [place], [place] 7008310-08-2025 10:08-0400Systolic blood iswtshqn426 mm[Hg]Drew Solorio MAILING MACHINE HELPER Work Phone: [phone] [place], [place] 7008309-09-2025 09:58-0400Body mass index (BMI) [Ratio]23.91 kg/m0Tpoom Nii DO Work Phone: [phone] [place], [place] 7008309-09-2025 09:58-0400Body vfgisu78.19 kgCorey Nii DO Work Phone: [phone] [place], [place] [address]Pvjxnfztkg58-52-0478 09:58-0400Diastolic blood shhzecte13 mm[Hg]Marco Nii DO Work Phone: [phone] [place], [place] [address]Xolvhjbphk48-41-4434 09:58-0400Systolic blood diwbfyui699 mm[Hg]Marco Nii DO Work Phone: [phone] [place], [place] 7008308-12-2025 10:15-0400Body mass index (BMI) [Ratio]22.4 kg/m4Nwrcz Nii DO Work Phone: [phone] [place], [place] [address]Hnbnjuhccr67-87-7703 10:15-0400Body .96 kgCorey Nii DO Work Phone: [phone] [place], [place] [address]Kyxmnngkco42-16-7399 10:15-0400Diastolic blood abdbuitc06 mm[Hg]Marco Nii DO Work Phone: [phone] [place] [address]-12-2025 10:15-0400Systolic blood iewozkcd846 mm[Hg]Macroector Bales DO Work Phone: [phone] [place], [place] 7008308-01-2025 11:07-0400Body mass index (BMI) [Ratio]21.79 kg/d2ZcwvjNuvance Health08-01-2025 11:07-0400Body weight 61.24 kgNuvance Health02-14-2024 14:46-0500Body mass index (BMI) [Ratio]25.66 kg/m2Amy Krys HAYES Work Phone: [phone] [place], [place] [address]Eqmnehoxnn40-05-6675 14:46-0500Body .12 kgRosana Marcano PA Work Phone: [phone] [place], [place] [address]Osurqvdyfz66-66-7114 14:46-0500Diastolic blood oczehphh67 mm[Hg]Rosana HAYES Work Phone: [phone] [place], [place] [address]Swcuevsfzk02-15-8378 14:46-0500Systolic blood mm[Hg]Rosana HAYES Work Phone: [phone] [place], [place] [address]Dtuwyquzkp64-33-3677 12:21-0500Body wgirex381.2 cmHaseeb Nice MD Work Phone: [phone] [place], [place] 36[address]01-03-2024 12:21-0500Body mass index (BMI) [Ratio]22.55 kg/m2Haseeb Nice MD Work Phone: p[facility]01-03-2024 12:21-0500Body lzbmjo63.32 kgHaseeb Nice MD Work Phone: [phone] [place], [place] 3634601-03-2024 12:21-0500Diastolic blood vpcbvdyu10 mm[Hg]Haseeb Nice MD Work Phone: 1([phone] [place], [place] 36[address]01-03-2024 12:21-0500Heart rate 79 /minHaseeb Nice MD Work Phone: [phone] [place], [place] 7111201-03-2024 12:21-0500Systolic blood dglokwig020 mm[Hg]Haseeb Nice MD Work Phone: [phone] Encounters Encounter DateEncounter TypeCare ProviderFacilityStart: 08-09-2025 End: 73-79-0054Wtmmintacos HAYES Work Phone: [facility] OBGYNStart: 08-09-2025 End: 88-35-8004Eusfentacos HAYES Work Phone: [facility] OBGYNStart: 08-09-2025 End: 14-34-8970nosyaujtdoNNE RAMEYNot AvailableStart: 08-09-2025 End: 61-57-3385Esipqy outpatient visit 15 minutesRosana HAYES Work Phone: [phone] OBGYNComment on above: size inconsistent with dates ([facility]) (Primary Dx); Third trimester ([facility]); 29 weeks gestation of ([facility]); History of miscarriage; History of oligohydramnios; Thyroid disease; Acquired autoimmune hypothyroidismStart: 07-21-2025 End: 35-78-8975Yvnpiy Jaja Solorio MAILING MACHINE HELPER Work Phone: [facility] [place] [facility]BGYNStart: 07-21-2025 End: 83-84-8548Xkqtlh Jaja Solorio MAILING MACHINE HELPER Work Phone: [facility]BGYNStart: 07-21-2025 End: 61-26-6128sjwzpxgepsHDPPOIEN EBERLYNot AvailableStart: 07-21-2025 End: 84-52-7701Whmgpt outpatient visit 15 minutesDrew Solorio MAILING MACHINE HELPER Work Phone: [facility] OBGYNComment on above:Acquired autoimmune hypothyroidism (Primary Dx); Second trimester ([facility]); 26 weeks gestation of ([facility]); Depression affecting ([facility])Start: 06-22-2025 End: 94-07-3818Ifcgnt flowsheetCorey Nii DO Work Phone: [facility] [place] OBGYNStart: 06-22-2025 End: 42-09-8839Kolfcc flowsheetCorey Nii DO Work Phone: [facility] OBGYNStart: 06-22-2025 End: 48-16-0353Pluyhb outpatient visit 15 minutesCorey Nii DO Work Phone: NOPM [facility]andace OBGYNComment on above:22 weeks gestation of ([facility]); Second trimester ([facility]); Thyroid disease ; Diabetes mellitus screeningStart: 06-22-2025 End: 65-43-3199qpdfwdzeheSSXNV FAZIONot AvailableStart: 06-09-2025 End: 66-22-5754Etaffytsd Result EncounterCorey Nii DO Work Phone: noms External Department UnsolicitedStart: 06-09-2025 End: 28-26-5340Khhibinxr Result EncounterCorey Nii DO Work Phone: [facility]oms External Department UnsolicitedStart: 06-09-2025 End: 36-73-4147avjkwmlvjcDRLFR FAZIONot AvailableStart: 05-25-2025 End: 36-82-2440Sambxy flowsheetCorey Nii DO Work Phone: [facility] [place] [facility]BGYNStart: 05-25-2025 End: 68-52-5968Tohgvz flowsheetCorey Nii DO Work Phone: [facility] [place] OBGYNStart: 05-25-2025 End: 52-62-1784Wkuatchac Result EncounterCorey Nii DO Work Phone: noms External Department UnsolicitedStart: 05-25-2025 End: 92-26-3726Uuzyljcn Result EncounterCorey Nii DO Work Phone: noms External Department UnsolicitedStart: 05-25-2025 End: 16-30-5653Qxdogkd encounter procedureCorey Nii DO Work Phone: noms HealthcareStart: 05-25-2025 End: 42-90-0914Dogxcsgq preventive med est patient 18-39 yrsCorey Nii DO Work Phone: NOZN [place] OBGYNComment on above:18 weeks gestation of ([facility]); Second trimester ([facility]); Well woman exam with routine gynecological exam; Screening, , for anatomic survey ([facility]); Exposure to STD; Vaginal discharge; Thyroid diseaseStart: 05-25-2025 End: 21-04-2171cnhwwkybeaVCFKB FAZIONot AvailableStart: 05-14-2025 End: 43-48-6833Oyvffa outpatient visit 5 minutesFazio Nurse [facility] Kristen Meyers [place] OBGYNComment on above:[place]: 10h5tSrkyh: 05-14-2025 End: 82-70-2879awjxmydifpKTFRP FAZIONot AvailableStart: 02-10-2024 End: 93-36-3369Qvxetzayo Result EncounterCorey Nii DO Work Phone: noms External Department UnsolicitedStart: 02-10-2024 End: 87-93-1657Mqhtjrgzd Result EncounterCorey Nii DO Work Phone: noms External Department UnsolicitedStart: 02-04-2024 End: 47-59-6786Zmovpjsyy Result EncounterCorey Nii DO Work Phone: noms External Department UnsolicitedStart: 02-04-2024 End: 24-69-5175Iwncgpqri Result EncounterCorey Nii DO Work Phone: noms External Department UnsolicitedStart: 01-27-2024 End: 38-20-2513Qbwcydiwa Result EncounterCorey Nii DO Work Phone: NODW External Department UnsolicitedStart: 01-27-2024 End: 64-89-0389Toouwolhw Result EncounterCorey Nii DO Work Phone: NOCC External Department UnsolicitedStart: 01-21-2024 End: 68-63-1347Csvjlotwj Result EncounterCorey Nii DO Work Phone: NOZB External Department UnsolicitedStart: 01-21-2024 End: 27-47-5409Gjuqqpvnv Result EncounterCorey Nii DO Work Phone: NOGQ External Department UnsolicitedStart: 01-13-2024 End: 66-64-9392Ikshaktui Result EncounterCorey Nii DO Work Phone: NODI External Department UnsolicitedStart: 01-13-2024 End: 62-42-8964Llzcmlhfk Result EncounterCorey Nii DO Work Phone: NOPF External Department UnsolicitedStart: 01-07-2024 End: 67-48-9100Vugksglbo Result EncounterCorey Nii DO Work Phone: NOGS External Department UnsolicitedStart: 01-07-2024 End: 01-92-9937Gawxgldwv Result EncounterCorey Nii DO Work Phone: NOIX External Department UnsolicitedStart: 12-30-2023 End: 13-07-8265Chfxatkjl Result EncounterCorey Nii DO Work Phone: NOTM External Department UnsolicitedStart: 12-30-2023 End: 02-40-1785Hooiclabw Result EncounterCorey Nii DO Work Phone: NOJN External Department UnsolicitedStart: 12-23-2023 End: 93-98-4824Fnrzavztv Result EncounterCorey Nii DO Work Phone: noms External Department UnsolicitedStart: 12-23-2023 End: 47-01-8660Nvpoembyt Result EncounterCorey Nii DO Work Phone: noms External Department UnsolicitedStart: 12-16-2023 End: 03-90-7552Dxfipbdqk Result EncounterCorey Nii DO Work Phone: noms External Department UnsolicitedStart: 12-16-2023 End: 99-53-0018Jejispkap Result EncounterCorey Nii DO Work Phone: noms External Department UnsolicitedStart: 12-09-2023 End: 75-14-5518Lthcjvfqr Result EncounterCorey Nii DO Work Phone: noms External Department UnsolicitedStart: 12-09-2023 End: 15-07-9594Kvukwqfvn Result EncounterCorey Nii DO Work Phone: noms External Department UnsolicitedStart: 11-27-2023 End: 70-59-8167Iqrrbi outpatient visit 15 minutesAmy Krys HAYES Work Phone: noms BCP OBComment on above:Second trimester ; with normal glucose tolerance test (GTT); Diabetes mellitus screening; History of miscarriage; History of oligohydramniosStart: 11-19-2023 End: 18-88-2655rgjexjnwwvUGTAC R [facility]: 10-29-2023 End: 15-02-6433friejuszbpBSFUF R [facility]: 81-35-9651Ectcbbwhuvjnp procedureHaseeb Nice MD Work Phone: [phone]-Cpclb Medicine at [facility] Comment on above:History of oligohydramnios in prior , currently (Primary Dx); 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; History of delivery, currently Start: 12-58-8929Crpognpos encounterRachelle Mullen LPNMaternal- Medicine at [facility] Start: 91-68-4971Tzlzb abstractingAliya Rollins MD Work Phone: [phone]-Emwms Medicine at [facility] Start: 37-89-8969Ednxge OnlyMarderrick Rodriguez CMAMaternal- Medicine at [facility] HamiltonComment on above:History of oligohydramnios in prior , currently (Primary Dx)Start: 10-16-2023 End: 20-28-1024ionuyetxrlBODRT R FAThe MetroHealth System HospitalStart: 10-16-2023 End: 55-99-5823Rrldez outpatient new 45 minutesHind Darius Nice MD Work Phone: [phone]-Nkkro Medicine at [facility] Comment on above:High-risk in second trimester (Primary Dx); History of oligohydramnios in prior , currently ; 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; 20 weeks gestation of pregnancyStart: 50-09-0575Dejod abstractingScanning Provider ExternalMaternal- Medicine at [facility] Hospitaltart: 01-28-2023 End: 41-60-7926jqnxouvimmTY MARCO NII .Facility:D3Yjipy: 01-23-2023 End: 19-86-5740wmrzgrbxbfXB MARCO NII .Facility:T3Lneur: 01-22-2023 End: 45-68-3542vcubwpaekyIETFUD DIAB .Facility:N7Buerc: 01-21-2023 End: 76-27-0647mlscwxxfpoWTDEBIC D KATKOFacility:V3Pload: 01-08-2023 End: 80-49-2573kdnoyuweuxXT DEBBIE Mohan REINECKFacility:E1Hwztg: 10-20-2022 End: 48-69-6057pvzoxmmtqfLDGIPNN D KATKOFacility:V6Uzqsa: 92-34-4719adxqruroisFO MARCO NII .Facility:W3Pyhcd: 05-31-2022 End: 75-87-8330lfqxajpkgyOZ MARCO NII .Facility:N7Skxru: 52-93-1392isyidfdsil DR FRASER NII .Facility:U8Kjgae: 03-16-2022 End: 57-63-0453aexudjvqdeUC KIM E KNIGHT .Facility:U7Xwina: 03-03-2022 End: 64-75-4813ezygycilgvFBYTQKH D CONNIEcility:H1 Procedures DateProcedureProcedure DetailPerforming ClinicianStart: 28-82-8545Ubuwu dip stick/tablet rgnt non-auto w/o micrscpAmy Krys PA Work Phone: Start: 62-98-0637Uxdtl dip stick/tablet rgnt non-auto w/o micrscpKrotilia Solorio NP Work Phone: Start: 28-41-7603Odrcg dip stick/tablet rgnt non-auto w/o micrscpCorey Nii DO Work Phone: Start: 01-08-5555UFD CBC WITH AUTO DIFFCorey Nii DO Work Phone: Start: 06-17-8496BAHXXSUFN VAGINITIS (HTRX)Marco Nii DO Work Phone: Start: 54-14-6210Jbqkj dip stick/tablet rgnt non-auto w/o micrscpCorey Nii DO Work Phone: Start: 32-80-6449ELR,APTIMA HPV,AGE GDLNCorey Nii DO Work Phone: Start: 62-76-2329Ksxuvusmalq observation [Identifier] in Cervix by Cyto stainCorey Nii DO Work Phone: Start: 05-14-2025 End: 23-66-2036Mjnin dip stick/tablet rgnt non-auto w/o micrscpCorey Nii DO Work Phone: Start: 43-57-5826IY OB BPP W NON-STRESSCorey Nii DO Work Phone: Start: 56-49-9540CN OB GROWTHCorey Nii DO Work Phone: Start: 05-08-8373LS OB BPP W NON-STRESSCorey Nii DO Work Phone: Start: 70-94-3618AI OB BPP W NON-STRESSCorey Nii DO Work Phone: Start: 04-87-0364QP OB BPP W NON-STRESSCorey Nii DO Work Phone: Start: 42-68-1754FE OB BPP W NON-STRESSCorey Nii DO Work Phone: Start: 82-73-0767SMV CBC WITH AUTO DIFFRosana HAYES Work Phone: Start: 45-69-4206SNDBMXB 1 HOURAmy Krys HAYES Work Phone: Start: 81-77-3416ZR OB BPP W NON-STRESSCorey Nii DO Work Phone: Start: 77-77-8575EA OB GROWTHCorey Nii DO Work Phone: Start: 17-55-3538EZ OB BPP W NON-STRESSCorey Nii DO Work Phone: Start: 01-67-5194ZF OB BPP W NON-STRESSCorey Nii DO Work Phone: Start: 28-55-5859EO OB BPP W NON-STRESSCorey Nii DO Work Phone: Start: 90-41-3218RB OB GROWTHCorey Nii DO Work Phone: Start: 53-42-8057OK OB BPP W NON-STRESSCorey Nii DO Work Phone: Start: 86-58-8013Sxalx dip stick/tablet rgnt non-auto w/o micrscpAmy Krys HAYES Work Phone: Start: 27-19-0981Wzietmbjhhs observation [Identifier] in Cervix by Cyto Jennifer Ob Plan of Treatment DateCare ActivityDetailAuthorStart: 76-55-2220MKeD,Tdap and Td Vaccines (9 - Td or Tdap)DTaP,Tdap and Td Vaccines (9 - Td or Tdap)[facility] SystemStart: 94-89-9034Ysvvjsmxk for malignant neoplasm of cervixNOMS HealthcareStart: 46-85-5639Sbxshaymz for malignant neoplasm of cervixPap SmearNOMO Healthcare Start: 08-23-2025 End: 07-96-1243Fcaytno encounter gtmfcxroo71/10/2025 11:00 AM EST Routine [facility] [address] [address] Marco Bales DO [address] [place] [address] NOMJovany [place] OBGYNStart: 08-23-2025 End: 76-35-8273Mcjrsjnhgatx / ancillary services xfwmazrdez80/10/2025 10:30 AM EST Ancillary Procedure [facility] [address] [place] [address] [phone] Kandace OBGYNStart: 08-09-2025 End: 18-82-1366EK for pregnancyUS OB follow up transabdominal approach Imaging Routine History of miscarriage History of oligohydramnios Thyroid disease Expected: 08/09/2025, Expires: 12/10/2025NOMO HealthcareComment on above: Expected: 08/09/2025, Expires: 12/10/2025Start: 08-03-2025 End: 73-19-2968Xjslxfj encounter rdpvowubs28/21/2025 1:20 PM EDT Routine NOMJovany [place] [facility] [address] [place], [id number] Rosana Marcano PA [address] [place] [address] KEEGAN [place] OBGYNStart: 07-21-2025 End: 59-93-0846Ltzndjs encounter qarmbizqc34/08/2025 10:00 AM EDT Routine NOMJovany DIETZ [address] [address] Drew Solorio, GIOVANI [address] [place] [address] NOMJovany [place] OBGYNStart: 06-22-2025 End: 07-89-1099GLU panel - Blood by Automated countCBC Lab Routine Diabetes mellitus screening Expected: 06/22/2025 (Approximate), Expires: 06/22/2026[facility] Work Phone: comment on above:Expected: 06/22/2025 (Approximate), Expires: 06/22/2026Start: 06-22-2025 End: 49-22-3153Nmnvrgormlu of glucose 1 hour after glucose challenge for glucose tolerance testGlucose tolerance, 1 hour Lab Routine Diabetes mellitus screening Expected: 06/22/2025 (Approximate), Expires: 06/22/2026NOMO HealthcareComment on above:Expected: 06/22/2025 (Approximate), Expires: 06/22/2026Start: 06-22-2025 End: 17-48-9590Abtqdon encounter procedureNOMS Kandace OBGYNComment on above: ArrivedStart: 29-05-4983ZQFSR-19 Vaccine ( season)COVID-19 Vaccine ( season)NOMS HealthcareStart: 37-76-0125Cdtmdvfmp vaccinationInfluenza Vaccine (#1)[facility]OMS HealthcareStart: 06-09-2025 End: 15-00-9289Qkhjejsngwym / ancillary services wzoarcirlc08/27/2025 11:00 AM EDT Ancillary Procedure KEEGAN DIETZ [address] [place] [place] [address] KEEGAN [place] OBGYNStart: 05-25-2025 End: 16-69-4415Dztkq fetoprotein, maternalAlpha fetoprotein, maternal Lab Routine 18 weeks gestation of ([facility]) Second trimester ([facility]) Expected: 05/25/2025 (Approximate), Expires: 07/25/2025[facility] Comment on above:Expected: 05/25/2025 (Approximate), Expires: 07/25/2025Start: 05-25-2025 End: 04-35-2414Rknfqvtaffo [Units/volume] in Serum or PlasmaTSH Lab Routine Thyroid disease Expected: 05/25/2025 (Approximate), Expires: 05/25/2026NOMO HealthcareComment on above:Expected: 05/25/2025 (Approximate), Expires: 05/25/2026Start: 05-25-2025 End: 91-63-7669WA for pregnancyUS OB 14+ weeks anatomy scan Imaging Routine Screening, , for anatomic survey ([facility]) Expected: 05/25/2025, Expires: 08/25/2025[facility] HealthcareComment on above:Expected: 05/25/2025, Expires: 08/25/2025Start: 05-25-2025 End: 45-48-5312Sopukit encounter procedureNOMS Kandace OBGYNComment on above: ArrivedStart: 05-14-2025 End: 93-59-5208CEZ/RhABO/Rh Lab Routine Missed menses , unspecified gestational age ([facility]) Expected: 05/14/2025 (Approximate), Expires: 05/14/2026[facility] HealthcareComment on above:Expected: 05/14/2025 (Approximate), Expires: 05/14/2026Start: 05-14-2025 End: 44-28-7270Shgzo type and Indirect antibody screen panel - BloodType and screen Lab Routine Missed menses , unspecified gestational age ([facility]) Expected: 05/14/2025 (Approximate), Expires: 05/14/2026[facility] Healthcare Work Phone: comment on above:Expected: 05/14/2025 (Approximate), Expires: 05/14/2026Start: 05-14-2025 End: 61-83-2329Sjlhz of abuse panel - Urine by Screen methodRapid drug screen, urine Lab Routine , unspecified gestational age ([facility]) Encounter for supervision of normal first in first trimester ([facility]) Expected: 05/14/2025 (Approximate), Expires: 05/14/2026NOM[facility] HealthcareComment on above: Expected: 05/14/2025 (Approximate), Expires: 05/14/2026Start: 10-22-2024 End: 71-32-3044TZ MFM with or without consultUS MFM with or without consult Imaging Routine History of oligohydramnios in prior , currently 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 History of delivery, currently Expected: 10/22/2024 (Approximate), Expires: 10/22/2024[facility] Work Phone: comment on above:Expected: 10/22/2024 (Approximate), Expires: 10/22/2024Start: 10-17-2024 End: 80-35-1535HC MFM with or without consultUS MFM with or without consult Imaging Routine History of oligohydramnios in prior , currently Expected: 10/17/2024 (Approximate), Expires: 10/17/2024[facility] Work Phone: Comment on above:Expected: 10/17/2024 (Approximate), Expires: 10/17/2024Start: 88-63-8658Wmpra BMI ScreeningAdult BMI Screening [facility] SystemStart: 57-62-2693Tnnykue ScreeningTobacco Screening [facility] SystemStart: 12-11-2023 End: 37-87-4633Gmxfrgs encounter /28/2024 10:20 AM EST Routine [facility] [address] [address] Maroc Bales, DO [address] [place], [place] [id number] NOMS BCP OBStart: 11-27-2023 End: 60-56-5629FBS panel - Blood by Automated countCBC Lab Routine Diabetes mellitus screening Expected: 11/27/2023 (Approximate), Expires: 11/27/2024[facility] Work Phone: comment on above:Expected: 11/27/2023 (Approximate), Expires: 11/27/2024Start: 11-27-2023 End: 59-14-3965Trhepwqqaah of glucose 1 hour after glucose challenge for glucose tolerance testGlucose tolerance, 1 hour Lab Routine Diabetes mellitus screening Expected: 11/27/2023 (Approximate), Expires: 11/27/2024[facility] HealthcareComment on above:Expected: 11/27/2023 (Approximate), Expires: 11/27/2024Start: 11-27-2023 End: 58-41-3784TR biophysical profile w non stress testUS biophysical profile w non stress test Imaging Routine History of miscarriage History of oligohydramnios Expected: 11/27/2023 (Approximate), Expires: 11/27/2024[facility] HealthcareComment on above:Expected: 11/27/2023 (Approximate), Expires: 11/27/2024Start: 11-27-2023 End: 39-57-9582HD for pregnancyUS OB SCAN FOR GROWTH Imaging Routine History of miscarriage History of oligohydramnios Expected: 11/27/2023 (Approximate), Expires: 11/27/2024[facility] HealthcareComment on above:Expected: 11/27/2023 (Approximate), Expires: 11/27/2024Start: 11-19-2023 End: 03-59-2928Xvpfdld encounter ivfpqkzgc68/06/2024 9:15 AM EST Appointment [facility] - Ultrasound [address] [place] [address] WdlWwcqrsOhioHealth Grady Memorial Hospital - UltrasoundStart: 10-29-2023 End: 18-96-0338Gcqgvnw encounter ymeyxvocf75/16/2024 9:15 AM EST Appointment [facility] - Ultrasound [address] [place] [address] EbaFthetwOhioHealth Grady Memorial Hospital - UltrasoundStart: 10-16-2023 End: 48-54-7981Rulitxc encounter /03/2024 1:00 PM EST Office Visit Maternal- Medicine at [facility] [address] [place] [address] Haseeb Nice MD [address], [address] [place] [address], [id number] [facility]: 38-37-5287Mpcrvrjjrz hospital visit by physician 10/16/2023 11:30 AM EST Hospital Encounter [facility] - [facility] Imaging [address] [place] [address] [phone] [facility] - [facility] US ImagingStart: 56-90-6314Zpdxvwajb vaccinationInfluenza Vaccine [facility] SystemStart: 37-38-3014AKA Vaccines (1 - 3-dose SCDM series)HPV Vaccines (1 - 3-dose SCDM series)[facility] HealthcareStart: 19-79-3124Bxsgpjhrb for malignant neoplasm of cervixPap SmearMemorial Health System [facility] SystemStart: 2012 DTaP,Tdap and Td Vaccines (1 - Tdap)DTaP,Tdap and Td Vaccines (1 - Tdap) [facility] SystemStart: 07-40-9580Uagrwmqkr B Vaccines (1 of 3 - 19+ 3- dose series)Hepatitis B Vaccines (1 of 3 - 19+ 3-dose series)[facility] Start: 94-88-8566Oceeb BMI ScreeningAdult BMI ScreeningAvita Health [facility] Start: 13-71-0240Ygwifya of varicella vaccinationVaricella Vaccines (1 of 2 - 13+ 2-dose series)[facility] HealthcareStart: 78-09-4990Wmlymuxjpd ScreeningDepression ScreeningMemorial Health System [facility] SystemStart: 17-57-0320Jcozvhd ScreeningTobacco ScreeningMemorial Health System [facility] SystemStart: 62-59-3620FUyM/Tdap/Td Vaccines (1 - Tdap)DTaP/Tdap/Td Vaccines (1 - Tdap)[facility] HealthcareStart: 24-46-2989ZWY Vaccines (1 of 1 - Standard series)MMR Vaccines (1 of 1 - Standard series)[facility] HealthcareStart: 36-32-3912Pffkxqy CounselingDeer River Health Care CenterBacteria identified in Urine by CultureUrine culture Microbiology Routine Missed menses Ordered: 05/14/2025[facility] HealthcareComment on above:Ordered: 05/14/2025BC W Auto Differential panel - BloodCBC and differential Lab Routine Missed menses , unspecified gestational age ([facility]) Ordered: 05/14/2025[facility] HealthcareComment on above:Ordered: 05/14/2025BC W Auto Differential panel - BloodCBC and differential Lab Routine 29 weeks gestation of ([facility]) Ordered: 08/09/2025[facility] Healthcare Work Phone: comment on above:Ordered: 08/09/2025HLAMYDIA TRACHOMATIS (GENITO/STI)CHLAMYDIA TRACHOMATIS (GENITO/STI) Lab Routine Exposure to STD Ordered: 05/25/2025[facility] HealthcareComment on above:Ordered: 05/25/2025 Cytology Cervical or vaginal smear or scraping studyPap Smear Pathology and Cytology Routine Well woman exam with routine gynecological exam Ordered: [facility] HealthcareComment on above:Ordered: 05/25/2025Hemoglobin A1c/Hemoglobin.total in BloodHemoglobin A1c Lab Routine Missed menses , unspecified gestational age ([facility]) Ordered: 05/14/2025[facility] HealthcareComment on above:Ordered: 05/14/2025Hemoglobin A1c/Hemoglobin.total in BloodHemoglobin A1c Lab Routine 29 weeks gestation of ([facility]) Ordered: 08/09/2025 [facility] HealthcareComment on above:Ordered: 08/09/2025Hepatitis B virus surface Ag [Presence] in Serum or Plasma by ImmunoassayHepatitis B surface antigen Lab Routine Missed menses , unspecified gestational age ([facility]) Ordered: 05/14/2025[facility] HealthcareComment on above:Ordered: 05/14/2025Hepatitis C virus Ab [Presence] in Serum or Plasma by ImmunoassayHepatitis C antibody Lab Routine Missed menses , unspecified gestational age ([facility]) Ordered: 05/14/2025[facility] HealthcareComment on above:Ordered: 05/14/2025HIV-1/HIV-2 antigen/antibody combination immunoassayHIV-1 and HIV-2 antibodies Lab Routine Missed menses , unspecified gestational age ([facility]) Ordered: 05/14/2025[facility] HealthcareComment on above:Ordered: 05/14/2025Human papilloma virus DNA [Presence] in Unspecified specimen by Probe with amplificationHPV DNA probe, amplified Microbiology Routine Well woman exam with routine gynecological exam Ordered: 05/25/2025[facility] HealthcareComment on above:Ordered: 05/25/2025 Neisseria gonorrhoeae DNA [Presence] in Unspecified specimen by DAVY with probe detectionNeisseria gonorrhea DNA probe, direct Lab Routine Exposure to STD Ordered: 05/25/2025[facility] HealthcareComment on above:Ordered: 05/25/2025Reagin Ab [Presence] in Serum by RPRRPR Lab Routine Missed menses , unspecified gestational age ([facility]) Ordered: 05/14/2025[facility] HealthcareComment on above: Ordered: 05/14/2025Rubella antibody, IgGRubella antibody, IgG Lab Routine Missed menses , unspecified gestational age ([facility]) Ordered: 05/14/2025[facility] HealthcareComment on above:Ordered: 05/14/2025SURESWAB(R) ADVANCED VAGINITIS PLUS, TMASURESWAB(R) ADVANCED VAGINITIS PLUS, TMA Pathology and Cytology Routine Vaginal discharge Ordered: 05/25/2025[facility] Healthcare Work Phone: comment on above:Ordered: 05/25/2025 End: 65-57-5609Qhdgqwcsbbt [Units/volume] in Serum or PlasmaTSH Lab Routine Acquired autoimmune hypothyroidism monthy for 3 Occurrences starting 07/21/2025 until 10/21/2025[facility] Work Phone: comment on above:monthy for 3 Occurrences starting 07/21/2025 until 10/21/2025 Payers DatePayer CategoryPayerPolicy [id number] [id number] Health Insurance [facility] [id number] 2.16840.1.311533.3.57[id number] 2.16840.1.827724.3.57[id number] 2.840.1.847244.3.579.[id number] 2.840.1.325752.3.57[id number] 2.840.1.431038.3.57[id number] 2.16840.1.476798.3.57[id number] 2.840.1.537074.3.57[id number] 2.840.1.790608.3.579.[id number] 2.16840.1.885572.3.579.2.57173-35-8945Mmstqkg2243544 2.16840.1.723726.3.579.2.58104-93-9238Zesyrwp7850929 2.16840.1.838289.3.579.2.72731-81-6904Srtaasr1309413 2.16.840.1.823004.3.579.2.45468-30-3358Nnpdhra9796984 2.16.840.1.289008.3.579.2.876438-52-8056Bkuccza3344224 2.16.840.1.279135.3.579.[id number] 2.16840.1.433754.3.579.2.631831-81-7132Tuxlttv2404933 2.16.840.1.994764.3.57[id number] 2.16840.1.352346.3.579.[id number] 2.840.1.340249.3.57[id number] 2.840.1.025383.3.57[id number] 2.840.1.207306.3.57[id number] 2.840.1.499669.3.579.2.0[id number] 2.840.1.855993.3.579.[id number] 2.840.1.337474.3.579.2.328642-80-2821Raot-juc53383906563-02-9887Zpprdeo 78390590[id number] Social History DateTypeDetailFacilityStart: 95-27-1413Hrxsqis smoking status NHISTobacco smoking consumption unknownProTrihealth Mccull[facility] SystemStart: 50-23-4672Dhzfdgioh ProMLakeview Hospital SystemStart: 67-13-0695Adv Assigned At BirthCorewell Health Pennock HospitalStart: 87-65-5343Xjcqtm identityIdentifies as female gender (finding) [facility] HealthcareStart: 75-71-5501Bcyvku orientationHeterosexual (finding)[facility] HospitalStart: 03-23-2019 End: 82-99-0131Rsgodqt of Social functionMemorial Health System [facility] SystemStart: 03-23-2019 End: 63-63-7788Jlbvmlx InstabilityMemorial Health System [facility] Memorial Hospital SystemStart: 12-26-2022 Housing InstabilitySt. Mary's Hospital SystemStart: 02-58-0761Vdp Assigned At BirthNot on fileMemorial Health System [facility] Memorial [facility] SystemStart: 81-43-6415Dpqrwdk smoking status NHISSmokes tobacco dailyMemorial Health System [facility] Memorial Hospital SystemHistory of tobacco use Cigarette SmokerMemorial Health System [facility] Memorial [facility] SystemStart: 76-33-7016Rbofpop use and exposure Smokeless tobacco non-userMemorial Health System [facility] Memorial Hospital SystemStart: 10-16-2023 End: 85-71-4932Kjzvrnq intakeEx-drinker (finding)[facility] Goals DatePatient GoalDesired Activity/StatePersonal health goal Clinical Notes 03-16-2022 to 08-09-2025 Note Date & [id number] History of Present illness Narrative* ABIGAIL Chinchilla [...] nursing note reviewed. Exam conducted with a high school computer science teacher present. Vitals: Estimated body mass index is 25.74 kg/m as calculated from the following: Height as of 04/02/24: 5' 6 . Weight as of this encounter: 159 lb 8 oz. BP: 110/52 No LMP recorded. Patient is . Assessment/Plan ICD-10-CM 1. Third trimester ([facility]) Z34.93 2. 29 weeks gestation of ([facility]) Z3A.29 CBC and differential Hemoglobin A1c [...] by Drew Solorio NP on behalf of: ABIGAIL Chinchilla documented in this encounterLakeland [facility] [id number] History of Present illness Narrative* Drew Solorio [...] nursing note reviewed. Exam conducted with a high school computer science teacher present. Vitals: Estimated body mass index is 24.29 kg/m as calculated from the following: Height as of 04/02/24: 5' 6 . Weight as of this encounter: 150 lb 8 oz. BP: 110/60 No LMP recorded. Patient is . ASSESSMENT & PLAN ICD-10-CM 1. Acquired autoimmune hypothyroidism E06.3 TSH 2. Second trimester ([facility]) Z34.92 POCT urinalysis dipstick manually resulted 3. 26 weeks gestation of ([facility]) Z3A.26 4. Depression affecting ([facility]) O99.340 citalopram (CeleXA) 20 MG tablet [...] of: Drew Solorio NP documented in this encounterLakeland Regional [id number] History of Present illness Narrative* Deepika Frye [...] nursing note reviewed. Exam conducted with a high school computer science teacher present. Vitals: Estimated body mass index is 23.91 kg/m as calculated from the following: Height as of 6/20/24: 5' 6 . Weight as of this encounter: 148 lb 1.9 oz. BP: 100/60 No LMP recorded. Patient is . ASSESSMENT & PLAN ICD-10-CM 1. 22 weeks gestation of ([facility]) Z3A.22 POCT urinalysis dipstick manually resulted 2. Second trimester ([facility]) Z34.92 POCT urinalysis dipstick manually resulted [...] of: Marco Bales DO documented in this encounterLakeland Regional [id number] History of Present illness Narrative* Deepika Frye [...] nursing note reviewed. Exam conducted with a high school computer science teacher present. Vitals: Estimated body mass index is 22.4 kg/m as calculated from the following: Height as of 04/02/24: 5' 6 . Weight as of this encounter: 138 lb 12.8 oz. BP: 100/60 No LMP recorded. Patient is . ASSESSMENT & PLAN ICD-10-CM 1. 18 weeks gestation of ([facility]) Z3A.18 POCT urinalysis dipstick manually resulted Alpha fetoprotein, maternal Alpha fetoprotein, maternal 2. Second trimester ([facility]) Z34.92 POCT urinalysis dipstick manually resulted Alpha fetoprotein, maternal Alpha fetoprotein, maternal 3. Well woman exam with routine gynecological exam Z01.419 Pap Smear HPV DNA probe, amplified 4. Screening, , for anatomic survey ([facility]) Z36.89 US OB 14+ weeks anatomy scan US OB 14+ weeks anatomy scan 5. Exposure to STD Z20.2 CHLAMYDIA TRACHOMATIS (GENITO/STI) Neisseria gonorrhea DNA probe, direct 6. Vaginal discharge N89.8 SURESWAB(R) ADVANCED VAGINITIS PLUS, TMA 7. Thyroid disease E07.9 TSH TSH Return OB/Annual Exam: Patient presents today for a annual exam/routine obstetrics appointment. Patient is currently [id number]. Pt advised to have labs drawn. Pap [...] of: Marco Bales DO documented in this encounterLakeland Regional [id number] History of Present illness Narrative* Sana Rogers [...] urinalysis dipstick manually resulted Positive urine test ([facility]) , unspecified gestational age ([facility]) - Type and screen; Future - ABO/Rh; Future - CBC and differential - Hemoglobin A1c - RPR - Rubella antibody, IgG - Hepatitis B surface antigen - Hepatitis C antibody - HIV-1 and HIV-2 antibodies - Rapid drug screen, urine; Future Encounter for supervision of normal first in first trimester ([facility]) - Rapid drug screen, urine; Future Nausea and vomiting in ([facility]) - ondansetron ODT (Zofran-ODT) 4 MG disintegrating [...] by: Sana Rogers LPN documented in this encounterLakeland Regional [id number] History of Present illness Narrative* ABIGAIL Chinchilla [...] Missed menses Non-compliant patient Smoker Thyroid disease ([facility]) No family history on file. Social [...] behalf of: ABIGAIL Chinchilla documented in this encounterLakeland Regional HospitalMnfxezfoac83-00-1704 Miscellaneous Notes* Telephone Encounter - Rachelle Mullen LPN - 10/22/2023 12:28 PM EST Please call us back to schedule an ultrasound next week. [facility] Telephone encounter Note* Telephone Encounter - Rachelle Mullen LPN - 10/22/2023 12:28 PM EST Please call us back to schedule an ultrasound next week. [facility] History of Present illness Narrative* [...] to increase p.o. hydration. documented in this encounterJoint [facility]01-03-2024 History of Present illness Narrative* [...] Yes Have you been seen here at [facility] in a previous ? No Recent ER visits or hospitalizations? No Bring blood sugar log or meter with you today? (Please bring them with you for every visit at [facility]) N/A Traveled outside the country [...] Yes Not In System Ref Prov vit no.262-bekk-asyqp acid ( VITAMIN) 27 mg iron- 800 [...] continue with routine care in your office [facility], the CDC, and other organizations representing maternal and public health professionals recommend that , , and lactating people and those considering receive the COVID-19 vaccination. Vaccination is the best method to reduce maternal and complications of SARS-CoV-2 infection. This document was created with [employer] technology. Though I make every effort to review the dictation as it is transcribed, on occasion the spoken word can be misinterpreted by the technology leading to inappropriate words, phrases, or sentences. This note is addressed to the requesting provider as a consultation for clinical guidance. Specificmedical abbreviations are occasionally used and those are generally approved by the [place]?Board of?Obstetrics and?Gynecology?as well as?James s abbreviations. The above plan of care was based solely on the diagnoses for which a consultation was requested. ?More frequent testing may be indicated based on her other medical/obstetrical conditions. The management of other or medical conditions is beyond the scope of requested consultation and will c wesinue to be followed by the primary electrical and radio aircraft mechanic or primary care provider. Thank you for allowing me to participate in her care. Please contact me if you have any concerns. documented in this encounterJoint [facility]06-03-2022 NotePROCEDURE: XR SHOULDER RT 2V or > HISTORY: Impingement syndrome of right shoulder region ; acute right shoulder pain, no known injury COMPARISON: None. FINDINGS: BONES:No fracture, acute abnormality, or significant arthropathy. SOFT TISSUES:No visible soft tissue swelling. EFFUSION:None visible. OTHER: Negative. IMPRESSION: 1. Normal examination. Electronically authenticated by: GENI CABRAL Date: 2022-03-16 18:16[facility]* Diagnosis Second trimester state, incidental with normal glucose tolerance test (GTT) Diabetes mellitus screening Screening for diabetes mellitus History of miscarriage Personal history of other genital system and obstetric disorders History of oligohydramnios documented [facility] this encounter [facility]* Diagnosis High-risk in second trimester- Primary History of oligohydramnios in prior , currently with other poor obstetric history 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 20 weeks gestation of documented [facility] encounter [facility]* Diagnosis History of oligohydramnios in prior , currently - Primary with other poor obstetric history documented in this encounter [facility]* Diagnosis History of oligohydramnios in prior , currently - Primary with other poor obstetric history 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 History of delivery, currently with history of pre-term labor documented in this encounter [facility]* Diagnosis Missed menses Positive urine test ([facility]) , unspecified gestational age ([facility]) Encounter for supervision of normal first in first trimester ([facility]) Nausea and vomiting in ([facility]) Unspecified vomiting of , unspecified as to episode of care documented in [facility]* Diagnosis 18 weeks gestation of ([facility]) Second trimester ([facility]) state, incidental Well woman exam with routine gynecological exam Routine gynecological examination Screening, , for anatomic survey ([facility]) Encounter for anatomic survey Exposure to STD Vaginal discharge Leukorrhea, not specified as infective Thyroid disease Unspecified disorder of thyroid documented [facility]* Diagnosis 22 weeks gestation of ([facility]) Second trimester ([facility]) state, incidental Thyroid disease Unspecified disorder of thyroid Diabetes mellitus screening Screening for diabetes mellitus documented [facility]* Diagnosis Acquired autoimmune hypothyroidism- Primary Other specified acquired hypothyroidism Second trimester ([facility]) state, incidental 26 weeks gestation of ([facility]) Depression affecting ([facility]) documented in this encounter [facility]* Diagnosis size inconsistent with dates ([facility])- Primary Third trimester ([facility]) state, incidental 29 weeks gestation of ([facility]) History of miscarriage Personal history of other genital system and obstetric disorders History of oligohydramnios Thyroid disease Unspecified disorder of thyroid Acquired autoimmune hypothyroidism Other specified acquired hypothyroidism documented in this encounter [facility] HealthcareInstructionsNot on filedocumented in this encounterProMediri Health SystemInstructionsNot on filedocumented in this encounterProMedica Health SystemInstructionsNot on filedocumented in this encounterProMedica Health SystemInstructionsNot on filedocumented in this encounterProMediri Health System InstructionsNot on filedocumented in this encounterProNoland [facility] Summary Purpose Family History No Family History Records FoundNo Family History Records FoundNo Family History Records FoundNo Family History Records Found Advance Directives No Advanced Directives Records FoundNo Advanced Directives Records FoundNo Advanced Directives Records FoundNo Advanced Directives Records Found Reason for Referral SpecialtyDiagnoses / ProceduresReferred By ContactReferred To ContactMaternal and Medicine Diagnoses History of oligohydramnios in prior , currently Procedures [facility] with or without consult Haseeb Nice MD [address], [address] [place] [address] [facility] [address] [place] [address] Referral IDStatusReasonStart DateExpiration DateVisits RequestedVisits [id number] Review/[id number] / Procedures Referred By ContactReferred To [facility] and Medicine Diagnoses History of oligohydramnios in prior , currently 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 History of delivery, currently Procedures [facility] with or without consult Haseeb Nice MD [address], [address] [place] [address] [facility] [address] [place] [address] Referral IDStatusReasonStart DateExpiration DateVisits RequestedVisits [id number] Review/ Additional Source Comments INFORMATION SOURCE (unrecogn ized section and content) DATE CREATED AUTHOR 01/31/2023 [facility] DATE CREATED AUTHOR AUTHOR'S ORGANIZ ATION 10/20/2023 [facility] DATE CREATED AUTHOR AUTHOR'S ORGANIZ ATION 11/24/2023 [facility] DATE CREATED AUTHOR AUTHOR'S ORGANIZ ATION 08/10/2025 [facility] EPIC Reason for Visit (unrecogniz ed section and content) ReasonCommentsRoutine VisitReasonCommentsHx OligoHx Multiple MiscarriagesHypothyroidismReasonCommentsAmenorrheaReasonCommentsRoutine VisitWell Women VisitSTI Screening Care Teams (unrecognized sec tion and content) Team MemberRelationshipSpecialtyStart DateEnd Date Marco Bales, DO [address] [place] [address] [address]11/06Team MemberRelationshipSpecialtyStart DateEnd Date Marco Bales, DO [address] [place], [facility]11/06Team MemberRelationshipSpecialtyStart DateEnd Date Marco Bales, DO [address] [place], [facility]11 [place] [address]Team MemberRelationshipSpecialtyStart DateEnd Date Marco Bales, DO [address] [place], [facility]11 [place] [address]Team MemberRelationshipSpecialtyStart DateEnd Date Marco Bales, DO [address] [place], [facility]11 [address]11/06Team MemberRelationshipSpecialtyStart DateEnd Date Marco Bales, DO [address] [place], [facility]11 [address]11/06Team MemberRelationshipSpecialtyStart DateEnd Date Marco Bales, DO [address] [place] [address] [place] [address]Te MemberRelationshipSpecialtyStart DateEnd Date Marco Bales, DO [address] [facility] [place] [address] [place] [address]Team MemberRelationshipSpecialtyStart DateEnd Date Marco Bales, DO [address] [facility] [place] [address] [place] [phone] MemberRelationshipSpecialtyStart DateEnd Date Mraco Bales, DO [address] [facility] [place] [address] [place] [phone] MemberRelationshipSpecialtyStart DateEnd Date Marco Bales, DO [address] [facility] [place] [address] [address]11/06Te MemberRelationshipSpecialtyStart DateEnd Date Marco Bales, DO [address] [place] [address] [place] [address] [place] [phone] MemberRelationshipSpecialtyStart DateEnd Date Marco Bales, DO [address] [facility] [place] [address] [address]11/06Team MemberRelationshipSpecialtyStart DateEnd Date NiiMarco christy [address] [place] [address] [place] [address] [facility]01/13/24 FOR RECORDS PERTAINING TO PATIENTS WHO [...] BE BASED ON THE PRIMARY CLINICAL RECORDS. [facility] [employer] [facility]. provides no warranty or guarantee of the accuracy or completeness of information in this document.
[2025-08-23 11:27] LABS: Thyroid Stimulating Hormone 1.677 uIU/mL (0.358-3.740)
== END 2025-08-23 10:18 | disposition home or self-care (01) ==
LOC: LAB 10:17
PROVIDERS: Visit Provider Nurse Practitioner Family
DX: E06.3 Autoimmune thyroiditis (principal)
CPT/HCPCS: 36415; 84443

== ENCOUNTER 2025-09-20 16:10 | Observation (INO) | payer OTHER, SELFPAY ==
--- NOTE | 2025-09-20 16:20 | US_ITS ---
[place] [id number] Patient Name: JERAMY SWEENEY MRN: [id number] date: 1995 Sex: F Assigned Patient Location: [facility] Current Patient Location: Accession/Order Number: [id number] Exam Date: 09/20/2025 17:11 Report Date: 09/20/2025 19:00 At the request of: BRIA DIAL DO Procedure: US OB BPP w non-stress Ultrasound biophysical profile INDICATION: Decreased movement COMPARISON: None FINDINGS IMPRESSION: Single live intrauterine gestation in cephalic position. heart rate 139 beats per minutes. Amniotic fluid volume 13.7 cm. 8/8 score biophysical profile. Impression dictated by: Matt Velez M.D. 09/20/2025 7:00 PM Dictation Location[facility] Electronically authenticated by: [id number] Y Date: 09/20/2025 19:00
--- OUTSIDE RECORDS SUMMARY | 2025-09-20 16:20 | XMS_ITS | CCD ---
Author Organization [facility] CliniSyma Care Team Providers Care Ordering Box Operator Name Role Phone RUSSELL, DR DEBBIE [...] SOLORIO Attending Unavailable ROSANA MARCANO Attending Unavailable NII, MARCO Attending Unavailable Medications Current Medications MedicationDrug Class(es)DatesSig (Normalized)Sig (Original)citalopram 20 mg oral tablet (8 sources)Serotonin Reuptake InhibitorStart: 07-21-2025 End: 11-11-6571ffzc 1 tablet by mouth once dailycitalopram (CeleXA) 20 MG tablet Indications: Depression affecting (HCC) Take 1 tablet (20 mg) by mouth Daily 30 tablet 5 07/21/2025 01/17/2026 Activelevothyroxine sodium 0.1 mg oral tablet (20 sources)l-ThyroxineStart: 34-73-4138lzkd 1 tablet by mouth once daily levothyroxine (Synthroid, Levoxyl) 100 MCG tablet Indications: Thyroid disease TAKE 1 TABLET (100 MCG) BY MOUTH 1 (ONE) TIME EACH DAY AT THE SAME TIME 30 tablet 5 04/15/2025 ActiveStart: 10-08-2023 End: 81-10-1913qmpg 1 tablet by mouth once dailylevothyroxine (Synthroid, Levoxyl) 100 MCG tablet Indications: Thyroid disease Take 1 tablet (100 mcg) by mouth 1 (one) time each day at the same time 30 tablet 5 10/08/2023 09/24/2024 Discontinuednorethindrone 0.35 mg oral tablet (1 source)Start: 04-22-2024 End: 67-77-2210paqu 1 tablet by mouth once dailynorethindrone (Micronor) 0.35 MG tablet Indications: Uses control Take 1 tablet (0.35 mg) by mouth Daily 28 tablet 11 04/22/2024 05/14/2025 Discontinued (Other)omeprazole 20 mg delayed release oral capsule (6 sources)Proton Pump InhibitorStart: 01-27-2024 End: 45-96-8013esuv 2 capsules by mouth before mealtimeomeprazole (PriLOSEC) [address] capsule Indications: Heartburn TAKE 2 CAPSULES (40 MG) BY MOUTH IN THE MORNING. TAKE BEFORE MEALS. DO NOT CRUSH OR CHEW.. 180 capsule 3 04/24/2024 05/14/2025 Discontinued (Other)Start: 10-08-2023 End: 25-10-5356gvkw 1 capsule by mouth before mealtimeomeprazole (PriLOSEC) [address] capsule Indications: Heartburn Take 1 capsule (20 mg) by mouth in the morning. Take before meals. Do not crush or chew.. 30 capsule 11 10/08/2023 01/27/2024 Discontinued (Reorder)ondansetron 4 mg disintegrating oral tablet (17 sources)Serotonin-3 Receptor AntagonistStart: 05-14-2025 End: 15-10-0153ynjx 1 tablet by mouth every six hours for nauseaondansetron ODT (Zofran-ODT) 4 MG disintegrating tablet Indications: Nausea and vomiting in ([facility]) Take 1 tablet (4 mg) by mouth every 6 (six) hours if needed for nausea or vomiting 30 tablet 2 05/14/2025 06/13/2025 Active End: 61-22-2593uodt 1 tablet by mouth every six hours as neededondansetron ODT (Zofran-ODT) 4 MG disintegrating tablet Take 4 mg by mouth every 6 (six) hours if needed 04/02/2024 Discontinuedprenatal vit no.629-opdq-ilueo acid ( VITAMIN) 27 mg iron- 800 mcg tablet (7 sources)take 1 tablet by mouth in the morningprenatal vit no.725-gonn-oufau acid ( VITAMIN) 27 mg iron- 800 mcg tablet Take 1 tablet by mouth in the morning. 0 ActivePrenatal Vit-Fe Fumarate-FA (M-Sindi Plus) 27-1 MG tablet (19 sources)Start: 63-56-4031gxpt 1 tablet by mouth once daily in [...] Class(es)DatesSig (Normalized)Sig (Original)ferrous sulfate (3 sources) End: 45-40-8982dgtd 1 tablet by mouth in the morningFerrous Sulfate (IRON PO) Take 1 tablet by mouth in the morning. 04/02/2024 Discontinuedmetoclopramide 10 mg oral tablet (1 source)Dopamine-2 Receptor AntagonistStart: 01-28-2024 End: 50-30-6623effm 1 tablet by mouth in the morning, then take 1 tablet by mouth in the evening, then take 1 tablet by mouth at bedtimemetoclopramide (Reglan) 10 MG tablet Indications: Heartburn during in third trimester ([facility]) Take 1 tablet (10 mg) by mouth in the morning and 1 tablet (10 mg) in the evening and 1 tablet (10 mg) before bedtime. 90 tablet 2 01/28/2024 04/02/2024 DiscontinuedPrenatal Vit-Fe Fumarate-FA ( Plus/Iron) 27-1 MG tablet (5 sources)Start: 10-08-2023 End: 01-83-9016eiwb 1 tablet by mouth in the morningPrenatal Vit-Fe Fumarate-FA ( Plus/Iron) 27-1 MG tablet Indications: Missed menses Take 1 tablet by mouth in the morning. 30 tablet 11 10/08/2023 08/27/2024 DiscontinuedStart: 10-08-2023 End: 73-49-6287izeg 1 tablet by mouth in the morningPrenatal Vit-Fe Fumarate-FA ( Plus/Iron) 27-1 MG tablet Indications: Missed menses Take 1 tablet by mouth in the morning. 30 tablet 11 10/08/2023 10/07/2024 Active Problems Active Problems Problem ClassificationProblemDateDocumented DateEpisodic/ChronicAnxiety disorders (20 sources)Generalized anxiety disorder; Translations: [Generalized anxiety disorder]Onset: 206592-12-3738BnqfghmJmgwutmcx hypertension (1 source)Essential (primary) hypertension; Translations: [ESSENTIAL PRIMARY HYPERTENSION]Onset: 82-35-9990NfzswfsAgvfclxouu during ; abruptio placenta; placenta previa (7 sources)Threatened ; Translations: [Hemorrhage in early , unspecified]Onset: 91-93-9537HsamgfcdRspvksbvjbuob and screening for infectious disease (3 sources)Encounter for immunization; Translations: [Exposure to sexually transmissible disorder]Onset: 240006-44-2121NdstfyadVtnemmengl disorders (1 source)Hormone replacement therapy; Translations: [HORMONE REPLACEMENT THERAPY]Onset: 55-96-5270UplndiicKktjamdaf disorders (5 sources)Irregular menstruation, unspecified; Translations: [Missed period] Onset: 85-50-5498CbeimlcQsbbk aftercare (1 source)Other longterm (current) drug therapy; Translations: [OTH LOCAL ANNOUNCER CURRENT DRUG THERAPY]Onset: 82-92-6880FbgddtzdJqcgb complications of ; puerperium affecting management of mother (1 source)Endocrine, nutritional and metabolic diseases complicating childbirth; Translations: [ENDOCRN NUTR MET DZ COMP CHILDBIRTH]Onset: 04-94-6703Dqcoxcyp Other complications of (1 source)Endocrine, nutritional and metabolic diseases complicating , first trimester; Translations: [ENDOCRN NUTR MET DZ COMP PG 1ST TRI]Onset: 00-27-7046YnklywqwFevpk complications of (1 source)Smoking (tobacco) complicating , first trimester; Translations: [SMOKING TOBACCO COMP IXQD7RY TRI]Onset: 84-53-8304QjonrclmGvewr complications of (1 source)Other viral diseases complicating , first trimester; Translations: [OTH VIRAL DZ COMP PREGFIRST TRI]Onset: 59-97-3707FhemxowjNjhvd complications of (2 sources) care for patient with recurrent loss, unspecified trimester; Translations: [ care for patient with recurrent loss, unspecified trimester]Onset: 87-53-2099LjgpmxesVqmic complications of (1 source)Supervision of high risk , unspecified, second trimester; Translations: [Supervision of high risk , unspecified, second trimester]Onset: 25-24-2063DbkokdeyZgwtg complications of (2 sources)Supervision of with other poor reproductive or obstetric history, unspecified trimester; Translations: [Supervision of with other poor reproductive or obstetric history, unspecified trimester]Onset: 49-68-8458YnmjjuqmVrcqi complications of (2 sources)Endocrine, nutritional and metabolic diseases complicating , second trimester; Translations: [Endocrine, nutritional and metabolic diseases complicating , second trimester]Onset: 60-09-4599JcklnjzrVcloe complications of (1 source)Supervision of other high risk pregnancies, unspecified trimester; Translations: [Supervision of other high risk pregnancies, unspecified trimester]Onset: 54-14-0233EehavmfmPohis complications of (1 source)Vomiting of , unspecified; Translations: [Unspecified vomiting of , unspecified as to episode of care or not applicable] 86-34-4836MekudpaaWllcb complications of (2 sources)Depressive disorder in mother complicating ; Translations: [Other mental disorders complicating , unspecified trimester]07-21-2025 EpisodicOther complications of (2 sources) size does not accord with dates; Translations: [Uterine size- date discrepancy, unspecified trimester]58-54-3278PrqyjwuyIoyok female genital disorders (2 sources)Vaginal discharge; Translations: [Other specified noninflammatory disorders of vagina]18-15-2391BlbiylvoAacox and delivery including normal (18 sources)Encounter for supervision of normal , unspecified, first trimester; Translations: [Second trimester ]Onset: EpisodicOther screening for suspected conditions (not mental disorders or infectious disease) (10 sources)Encounter for other specified screening; Translations: [Encounter for screeningfor cervical length]Onset: 10-16-2023 26-74-3662VaxslkvpZoekpcne codes; unclassified (1 source)Less than 8 weeks gestation of ; Translations: [< 8 WEEKS GESTATION ]Onset: 47-36-3197UdscrzifBnlhvzci codes; unclassified (1 source)20 weeks gestation of ; Translations: [20 weeks gestation of ]Onset: 51-61-5479IucyarreHojvopvy codes; unclassified (4 sources)H/O: miscarriage; Translations: [Personal history of other complications of , childbirth and the puerperium]97-23-2363Teegxrnz Residual codes; unclassified (2 sources)Gestation period, 18 weeks; Translations: [18 weeks gestation of ]18-89-1255DcvneelkOoegbvcf codes; unclassified (2 sources)Gestation period, 22 weeks; Translations: [22 weeks gestation of ]54-38-1763DfnncajwGeuwprwt codes; unclassified (2 sources)Gestation period, 26 weeks; Translations: [26 weeks gestation of ]13-39-0419EroygmzyHrkkpzpm codes; unclassified (2 sources)Gestation period, 29 weeks; Translations: [29 weeks gestation of ]48-12-7243RwndrikhKypsadzm codes; unclassified (2 sources)Gestation period, 31 weeks; Translations: [31 weeks gestation of ]37-24-6506DnlgjprkKnfulurxi-related disorders (1 source)Nicotine dependence, cigarettes, uncomplicated; Translations: [NICOTINE DEPEND CIGARETTES UNCOMP]Onset: 54-99-5535UbbchwaHblraam disorders (12 sources)Hypothyroidism, unspecified; Translations: [Hypothyroidism]Onset: 68-43-0160SmkogjdCmaafctjkxkx (1 source)PERSONAL HISTORY OF COVID-19; Translations: [PERSONAL HISTORY OF COVID-19]Onset: 42-48-5258Zuodomjcbzfp (2 sources)COUGH, UNSPECIFIED; Translations: [COUGH, UNSPECIFIED]Onset: 15-42-7275Meavqqopgrgd (1 source)Hx OligoOnset: 38-89-8307Zxwplgzcqqzo (20 sources)OB RemindersOnset: 594770-08-5009Iwvgv infection (1 source)COVID-19; Translations: [COVID-19]Onset: 01-09-2023 Past or Other Problems Problem ClassificationProblemDateDocumented DateEpisodic/ChronicE Codes: Fall (1 source)Unspecified fall, initial encounter; Translations: [UNSPECIFIED FALL INITIAL ENCOUNTER]Onset: 25-55-6981VuuubcbzHvjqvmejqkuetkfc hemorrhage (20 sources)Rectal hemorrhage; Translations: [Hemorrhage of anus and rectum] Onset: 915226-07-0578ZnlyjmoaPixsdbsszwfx; infection of eye (except that caused by tuberculosis or sexually transmitteddisease) (1 source)Unspecified conjunctivitis; Translations: [UNSPECIFIED CONJUNCTIVITIS] Onset: 34-00-7193PjkqfupvQtqx wounds of head; neck; and trunk (4 sources)Laceration without foreign body of other part of head, initial encounter; Translations: [LAC W/O FBOTH PART HEAD INIT ENC]Onset: 10-20-2022 EpisodicOther complications of (1 source)High risk ; Translations: [Supervision of high risk , unspecified, second trimester]39-09-9680KbngmbszVnnxp complications of (3 sources)H/O: ; Translations: [Supervision of with other poor reproductive or obstetric history, unspecified trimester]89-12-2949Rzsxgbcf Other complications of (2 sources)Hypothyroidism in ; Translations: [Endocrine, nutritional and metabolic diseases complicating , second trimester]10-16-2023 EpisodicOther complications of (1 source)H/O: premature delivery; Translations: [Supervision of other high risk pregnancies, unspecified trimester]05-07-9657JvqjkpzgDfxza connective tissue disease (1 source)Impingement syndrome of right shoulder; Translations: [IMPINGEMENT SYNDROME RIGHT SHOULDER]Onset: 85-22-9050VrmqfyxcOpqqp eye disorders (3 sources)Other specified disorders of eye and adnexa; Translations: [OTHER SPEC DISORDERS EYE AND ADNEXA]Onset: 01-27-7001BkcoolapHolnoupj codes; unclassified (20 sources)H/O: Disorder; Translations: [Personal history of other complications of , childbirth and the puerperium]Onset: 12-16-2023 38-86-1665OsphuorlPasnvpkq codes; unclassified (1 source)Gestation period, 20 weeks; Translations: [20 weeks gestation of ]87-53-5140HqwjvybqMjckkna disorders (20 sources)Disorder of thyroid gland; Translations: [Disorder of thyroid, unspecified]Onset: 623608-48-8066KjkrasegGdjbqbpnnbuf (1 source)COUGH, UNSPECIFIED; Translations: [COUGH, UNSPECIFIED]Onset: 01-08-2023 Results Test NameValueInterpretationReference RangeFacilityALL CBC WITH AUTO DIFFon 68-01-4081DEBEVYZKD ABSOLUTE AUTO0.0NOMS HealthcareBasophils/100 WBC (Bld)0.2 % 0.2 - 2.0 %NOMSaint Francis Hospital & Health ServicesEosinophils/100 WBC (Bld)0.5 %Low0.9 - 7.0 %[facility] HospitalErythrocyte distribution width (RBC) [Ratio]13.0 %11.0 - 15.0 %NOMSaint Francis Hospital & Health ServicesHematocrit (Bld) [Volume fraction]29.4 %Low36.0 - 48.0 %[facility] HospitalHemoglobin (Bld) [Mass/Vol]10.1 g/dLLow12.0 - 16.0 g/dLSaint Alexius Hospital IMMATURE GRANULOCYTES ABS AUTO0.04HighSaint Alexius HospitalImmature granulocytes/100 WBC (Bld)0.4 %0.0 - 0.5 %[facility] HospitalInterpretation and review of laboratory resultsAbnormalNOIA HealthcareLYMPHOCYTES ABSOLUTE AUTO1.7NOMS [facility] Lymphocytes/100 WBC (Bld)17.8 %Low20.5 - 60.0 %[facility] CenterH (RBC) [Entitic mass]32.9 pg26.7 - 34.0 pgNOTwo Rivers Psychiatric HospitalHC (RBC) [Mass/Vol]34.4 g/dL29.9 - 35.2 g/dLMetropolitan Saint Louis Psychiatric CenterV (RBC) [Entitic vol]95.8 fL81.0 - 99.0 fLSaint Alexius HospitalMONOCYTES ABSOLUTE AUTO0.5NOIA HealthcareMonocytes/100 WBC (Bld)5.8 % 1.7 - 12.0 %[facility] HospitalNEUTROPHILS ABSOLUTE AUTO7.0HighNOMadison Medical Center Neutrophils/100 WBC (Bld)75.3 %High43.0 - 75.0 %NOMS HealthcarePlatelet mean volume (Bld) [Entitic vol]10.8 fL9.5 - 13.5 fLNOMS HealthcareTBH EO #0.1NOMS HealthcareTBH TNP614HSND HealthcareTBH RBC3.07LowNOMS HealthcareTBH WBC9.3NOMS HealthcareCLINISYNCNOMS HealthcareUS OB FOLLOW UP TRANSABDOMINAL APPROACHon 51-64-8675EL OB FOLLOW UP TRANSABDOMINAL APPROACHFINDINGS: Comparison June 09, 2025 A single, live intrauterine is present with normal cardiac rate of 153 beats per minute. Normal activity and amniotic fluid volume. Morphology is grossly normal. The current sonographic age is 32 weeks and 0 days, based on the following measurements: BPD 8.0 cm (32 weeks, 1 day) Head Circumference 30.0 cm (33 weeks, 1 day) Abdominal Circumference 28.5 cm (32 weeks, 3 days) Femur Length 5.8 cm (30 weeks, 3 days) Presentation Cephalic Weight (g) by Percentile 59.4 % * (prior 42.3%) These measurements result in an estimated date of delivery of October 18, 2025. The current estimated weight is 1863 grams (4 pounds, 2 ounces). IMPRESSION: Single, live intrauterine , current sonographic age of 32 weeks and 0 days, with an estimated date of delivery of October 18, 2025 (prior GOOD October 25, 2025) * Estimated Weight (g) by Percentile is based upon an accurate estimated age based on last menstrual period. TRANSCRIBED BY: ELECTRONICALLY SIGNED BY: Gil Godwin MDNormalNot AvailableComment on above:Order Comment: US OB SCAN FOR GROWTH Estimated Date of Delivery: 10/23/25 Gestational Age as of 08/09/2025: 76s2kUfnsfhdgws macro (dipstick) panel (U)on 80-46-9458Givxfwbap, UANegativeNegative - 4(70) +++ mg/dLNOMS HealthcareBlood, UANegativeNegative - 50 Felice/mcLNOMS HealthcareClarity, UAClearNOMS Healthcare Color, UAYellowNOMS HealthcareGlucose, UANegativeNegative - 2000(110) ++++ mg/dL NOMS HealthcareInterpretation and review of laboratory resultsNormalNOMS HealthcareKetones, UANegativeNegative - 160(16) ++++ mg/dLNOMS Healthcare Leukocytes, UANegativeNegative - 500+++ Regina/mcLNOMS HealthcareNitrite, UA NegativeNegative - PositiveNOMS HealthcarepH, UA6.05 - 9NOMS HealthcareProtein, UANegativeNegative - 2000(20) ++++ mg/dLNOMS HealthcareSpec Grav, UA1.0101 - 1.03NOMS HealthcareUrobilinogen, UA1.00.2 - 12 mg/dLNOMS HealthcareNOMS HealthcareUrinalysis macro (dipstick) panel (U)on 95-32-7999Wbwiizovz, UA NegativeNegative - 4(70) +++ mg/dLNOMS HealthcareBlood, UANegativeNegative - 50 Felice/mcLNOMS HealthcareClarity, UAClearNOMS HealthcareColor, UAYellowNOMS HealthcareGlucose, UANegativeNegative - 1999(110) ++++ mg/dLNOMS Healthcare Interpretation and review of laboratory resultsNormalNOMS HealthcareKetones, UA NegativeNegative - 160(16) ++++ mg/dLNOMS HealthcareLeukocytes, UANegative Negative - 500+++ Regina/mcLNOMS HealthcareNitrite, UANegativeNegative - Positive NOMS HealthcarepH, UA7.05 - 9NOMS HealthcareProtein, UANegativeNegative - 2000(20) ++++ mg/dLNOMS HealthcareSpec Grav, UA0.0101 - 1.03NOMS Healthcare Urobilinogen, UA0.20.2 - 12 mg/dLNOMS Mart[facility] Ferry HospitalNOIA HealthcareUrinalysis macro (dipstick) panel (U)on 74-01-4368Yulzrporf, UANegativeNegative - 4(70) +++ mg/dL NOMS HealthcareBlood, UANegativeNegative - 50 Felice/mcLNOMS HealthcareClarity, UA ClearNOMS HealthcareColor, UAYellowNOMS HealthcareGlucose, UANegativeNegative - 1999(110) ++++ mg/dLNOMS HealthcareInterpretation and review of laboratory resultsNormalNOMS HealthcareKetones, UANegativeNegative - 160(16) ++++ mg/dLNOMS HealthcareLeukocytes, UANegativeNegative - 500+++ Regina/mcLNOIA HealthcareNitrite, UANegativeNegative - PositiveNOMS HealthcarepH, UA65 - 9NOMS HealthcareProtein, UANegativeNegative - 2000(20) ++++ mg/dLNOMS HealthcareSpec Grav, UA1.0151 - 1.03NOMS HealthcareUrobilinogen, UA0.20.2 - 12 mg/dLNOUniversity of [facility] HealthcareUrinalysis macro (dipstick) panel (U)on 81-81-9471Miyjcyyrv, UA NegativeNegative - 4(70) +++ mg/dLNOIA HealthcareBlood, UANegativeNegative - 50 Felice/mcLNOIA HealthcareClarity, UAClearNOIA HealthcareColor, UAYellowNOIA HealthcareGlucose, UANegativeNegative - 2000(110) ++++ mg/dLVA [facility]OS[facility] Healthcare Interpretation and review of laboratory resultsNormalNOIA HealthcareKetones, UA NegativeNegative - 160(16) ++++ mg/dLVA HOSPITAL HealthcareLeukocytes, UANegative Negative - 500+++ Regina/mcLVA HOSPITAL HealthcareNitrite, UANegativeNegative - Positive NOMS HealthcarepH, UA7.55 - 9NOMS HealthcareProtein, UANegativeNegative - 2000(20) ++++ mg/dLNOIA HealthcareSpec Grav, UA1.011 - 1.03NOIA Healthcare Urobilinogen, UA1.00.2 - 12 mg/dLNOMadison Medical CenterNOIA HealthcareALL CBC WITH AUTO DIFFon 81-44-3821AVCSQTQIE ABSOLUTE SDZB2GKQF HealthcareBasophils/100 WBC (Bld) 0.3 %0.2 - 2.0 %NOMS HealthcareEosinophils/100 WBC (Bld)0.3 %Low0.9 - 7.0 %[facility] HealthcareErythrocyte distribution width (RBC) [Ratio]13.2 %11.0 - 15.0 %NOMS HealthcareHematocrit (Bld) [Volume fraction]32.2 %Low36.0 - 48.0 %[facility] HospitalHemoglobin (Bld) [Mass/Vol]11 g/dLLow12.0 - 16.0 g/dLSaint Alexius Hospital IMMATURE GRANULOCYTES ABS AUTO0.02NOMS [facility] HospitalImmature granulocytes/100 WBC (Bld)0.3 %0.0 - 0.5 %[facility] HealthcareInterpretation and review of laboratory resultsAbnormalNOMadison Medical CenterLYMPHOCYTES ABSOLUTE AUTO1.3NOMS [facility] Lymphocytes/100 WBC (Bld)16.6 %Low20.5 - 60.0 %[facility] CenterH (RBC) [Entitic mass]32.9 pg26.7 - 34.0 pgMetropolitan Saint Louis Psychiatric CenterHC (RBC) [Mass/Vol]34.2 g/dL29.9 - 35.2 g/dLMetropolitan Saint Louis Psychiatric CenterV (RBC) [Entitic vol]96.4 fL81.0 - 99.0 fLSaint Alexius HospitalMONOCYTES ABSOLUTE AUTO0.3NOIA HealthcareMonocytes/100 WBC (Bld)4.1 % 1.7 - 12.0 %[facility] HospitalNEUTROPHILS ABSOLUTE AUTO6.3NOMS [facility] Neutrophils/100 WBC (Bld)78.4 %High43.0 - 75.0 %[facility] HospitalPlatelet mean volume (Bld) [Entitic vol]10.4 fL9.5 - 13.5 fLNOMS HealthcareTBH EO #0NOMS HealthcareTBH [id number] [facility]ins [facility]erry HospitalTB RBC3.34LowNOMS [facility]erry HospitalTB TTE9HUZJMadison Medical CenterCLINISYNCNOMS HealthcareIGP,APTIMA HPV,AGE GDLNon 96-53-5895ZDA GDLN ACOG TESTINGNote.[facility] HealthcareComment on above:TESTS RESULT FLAG UNITS REF RANGE LAB Clinician Provided Cytology Information Source.............[employer] Other.............. No. of containers..01 ThinPrep Vial Age Algo ACOG Nancy... 30-65 FLAG LEGEND: L-Low Normal,H-High Normal,LL-Alert Low,HH-Alert High <-Panic Low,>-Panic High,A-Abnormal,AA-Critical Abnormal Performed at: 01 =[address] [place] [address] Vikki Rivera MD, HPV APTIMANegativeNegativeNOMS HealthcareComment on above:This nucleic acid amplification test detects fourteen high- risk HPV types (16,18,31,33,35,39,45,51,52,56,58,59,66,68) without differentiation. Performed at: =[address] [id number] Strainer Mill Operator: Vikki Rivera MD, Phone: [phone] Performed at: [address] [id number] Strainer Mill Operator: Vikki Rivera MD, Phone: [phone] IGP, APTIMA HPV, RFX 16/18,45Note.NOMS HealthcareComment on above:TESTS RESULT FLAG UNITS REF RANGE LAB DIAGNOSIS: 02 NEGATIVE FOR INTRAEPITHELIAL LESION OR MALIGNANCY. Specimen adequacy: 02 Satisfactory for evaluation. Endocervical and/or squamous metaplastic cells (endocervical component) are present. Performed by: Jarocho Kirkpatrick, Non Garment Sewing Machine Operator (ASC) . 02 Note: Note 02 The Pap [...] <-Panic Low,>-Panic High,A-Abnormal,AA-Critical Abnormal Performed at: [address] [address] Vikki Rivera MD, SPATULA-ALONE ENDOCERVIX CLINISYNCNOMS HealthcareRECURRENT VAGINITIS (HTRX)on 76-96-6253RMPKCILKB VAGINAE 0NOMS HealthcareATOPOBIUM VAGINAENot detectedNOMS HealthcareBVAB 2,3 (BACTERIAL VAGINOSIS ASSOCIATED BACTERIA 2, 3); MOBILUNCUS TXT3VGWQ HealthcareBVAB 2,3 (BACTERIAL VAGINOSIS ASSOCIATED BACTERIA 2, 3); MOBILUNCUS SPPNot detectedNOMS HealthcareCANDIDA ALBICANS, PARAPSILOSIS, [id number] HealthcareCANDIDA ALBICANS, PARAPSILOSIS, TROPICALISNot detectedNOMS HealthcareCANDIDA GLABRATA0 NOMS HealthcareCANDIDA GLABRATANot detectedNOMS HealthcareCANDIDA [id number] HealthcareCANDIDA KRUSEINot detectedNOMS HealthcareCHLAMYDIA [id number] HealthcareCHLAMYDIA TRACHOMATISNot detectedNOMS HealthcareGARDNERELLA VAGINALIS0 NOMS HealthcareGARDNERELLA VAGINALISNot detectedNOMS HealthcareMEGASPHAERA (TYPES 1, 2)0NOMS HealthcareMEGASPHAERA (TYPES 1, 2)Not detectedNOMS Healthcare MYCOPLASMA TNRQCTINRW9GAGB HealthcareMYCOPLASMA GENITALIUMNot detectedNOMS HealthcareNEISSERIA YPAHSAKFPIL3KXMS HealthcareNEISSERIA GONORRHOEAENot detected NOMS HealthcareTRICHOMONAS [id number] HealthcareTRICHOMONAS VAGINALISNot detectedNOMS HealthcareNOMS HealthcareUS OB 14+ [...] Delivery: 10/23/25 Gestational Age as of 05/25/2025: 80c7qNqqeadoosz macro (dipstick) panel (U)on 01-57-9782Agiftqeqc, UANegativeNegative - 4(70) +++ mg/dLNOMS HealthcareBlood, UANegativeNegative - 50 Felice/mcLNOMS HealthcareClarity, UAClearNOMS Healthcare Color, UAYellowNOMS HealthcareGlucose, UANegativeNegative - 2000(110) ++++ mg/dL NOMS HealthcareInterpretation and review of laboratory resultsAbnormalNOMS HealthcareKetones, UANegativeNegative - 160(16) ++++ mg/dLNOIA Healthcare Leukocytes, UAPositiveNegative - 500+++ Regina/mcLNOIA HealthcareNitrite, UA NegativeNegative - PositiveNOMS HealthcarepH, UA8.55 - 9NOMS HealthcareProtein, UAPositiveNegative - 2000(20) ++++ mg/dLNOIA HealthcareSpec Grav, UA1.011 - 1.03 NOMS HealthcareUrobilinogen, UA1.00.2 - 12 mg/dLNOProHealth [facility] HCG ( test) Ql (U)on 21-24-5219Yokywdovjlzafa and review of laboratory resultsAbMcLaren Bay RegionPreg Test, UrPositiveNegativeNOUniversity of [facility] HealthcareUS OB LIMITED 1+ FETUSESon 45-64-4871TP OB LIMITED 1+ FETUSESFINDINGS: No prior examinations. [...] 23, 2025 TRANSCRIBED BY: ELECTRONICALLY SIGNED BY: Veronica ZhangNot AvailableComment on above:Order Comment: US OB TRANSVAGINAL No LMP recorded.Urinalysis macro (dipstick) panel (U)on 13-93-5254Dfnajwfvt, UA NegativeNegative - 4(70) +++ mg/dLNOIA HealthcareBlood, UANegativeNegative - 50 Felice/mcLNOIA HealthcareClarity, UAClearNOIA HealthcareColor, UAYellowNOIA HealthcareGlucose, UATraceNegative - 1999(110) ++++ mg/dLNOIA Healthcare Interpretation and review of laboratory resultsAbnormalNOMS HealthcareKetones, UANegativeNegative - 160(16) ++++ mg/dLNOMS HealthcareLeukocytes, UAPositive Negative - 500+++ Regina/mcLNOMS HealthcareNitrite, UANegativeNegative - Positive NOMS HealthcarepH, UA7.55 - 9NOMS HealthcareProtein, UATraceNegative - 2000(20) ++++ mg/dLNOMS HealthcareSpec Grav, UA1.011 - 1.03NOMS HealthcareUrobilinogen, UA1.00.2 - 12 mg/dLNOMS HealthcareNOMS HealthcareUS OB BPP W NON-STRESSon 12-51-8580[place]aph[place], [place] [address] Ultrasound Report Signed Patient: ЕКАТЕРИНА SUTHERLAND MR#: [id number] : 1995 Acct:[id number] Age/Sex: 28 / F ADM Date: 02/10/24 Loc: US Attending Dr: Marco Bales D.O. Ordering Physician: Marco Bales D.O. Date of Service: 02/10/24 Procedure(s): US OB BPP w non-stress Accession Number(s): [id number] cc: Marco Bales D.O.; Physician,Non-Staff M.Nancy [address] [address] Patient Name: ЕКАТЕРИНА SUTHERLAND MRN: [facility]:[id number] date: 1995 Sex: F Assigned Patient Location: US Current Patient Location: US Accession/Order Number: [id number] Exam Date: 02/10/2024 13:59 Report Date: 02/10/2024 [...] Dictated By: Geni Cabral M.D. Signed By: 02/10/24 1457 DD/ 1455 TD/TT: Ordering Box Operator:PARTHAadiologector, Radiologist, - 02/10/2024 [place] [address] Ultrasound Report Signed Patient: ЕКАТЕРИНА SUTHERLAND MR#: [id number] : 1995 Acct:[id number] Age/Sex: 28 / F ADM Date: 02/10/24 Loc: US Attending Dr: Marco Bales D.O. Ordering Physician: Marco Bales D.O. Date of Service: 02/10/24 Procedure(s): US OB BPP w non-stress Accession Number(s): [id number] cc: Marco Bales D.O.; Physician,Non-Staff Lalit [address] [place] [phone] Patient Name: ЕКАТЕРИНА SUTHERLAND MRN: TBH:[id number] date: 1995 Sex: F Assigned Patient Location: Current Patient Location: Accession/Order Number: [id number] Exam Date: 02/10/2024 13:59 Report Date: 02/10/2024 [...] Dictated By: Geni Cabral M.D. Signed By: 02/10/24 1457 DD/ 145 TD/TT: Ordering Box Operator: KEEGAN HealthcareRadiology Study observation (narrative)NOMS HealthcareUS OB BPP W NON-STRESSOrdered By: Radiologist Radiology on 44-43-7044VV[facility] Work Phone: US OB BPP W NON-STRESSon [phone], [place] [address] Ultrasound Report Signed Patient: ЕКАТЕРИНА SUTHERLAND MR#: [id number] : 1995 Acct:[id number] Age/Sex: 28 / F ADM Date: 02/03/24 Loc: US Attending Dr: Marco Bales D.O. Ordering Physician: Marco Bales D.O. Date of Service: 02/03/24 Procedure(s): US OB BPP w non-stress Accession Number(s): [id number] cc: Marco Bales D.O.; Physician,Non-Staff Lalit [address] [place] [address] Patient Name: ЕКАТЕРИНА SUTHERLAND MRN: TBH:[id number] date: 1995 Sex: F Assigned Patient Location: US Current Patient Location: Accession/Order Number: [id number] Exam Date: 02/03/2024 14:20 Report Date: 02/04/2024 [...] M.D. Signed By: 02/04/24714 DD/ 1 TD/TT: Ordering Box Operator:PARTHAadiolnicola Radiologist, - 02/04/2024 [place] [address] Ultrasound Report Signed Patient: ЕКАТЕРИНА SUTHERLAND MR#: [id number] : 1995 Acct:[id number] Age/Sex: 28 / F ADM Date: 02/03/24 Loc: US Attending Dr: Marco Bales D.O. Ordering Physician: Marco Bales D.O. Date of Service: 02/03/24 Procedure(s): US OB BPP w non-stress Accession Number(s): [id number] cc: Marco Bales D.O.; Physician,Non-Staff Lalit [facility] [place] [phone] Patient Name: ЕКАТЕРИНА SUTHERLAND MRN: [facility]:[id number] date: 1995 Sex: F Assigned Patient Location: US Current Patient Location: Accession/Order Number: [id number] Exam Date: 02/03/2024 14:20 Report Date: 02/04/2024 [...] M.D. Signed By: 02/04/24714 DD/ 1 TD/TT: Ordering Box Operator: KEEGAN HealthcareRadiology Study observation (narrative)NOMS HealthcareUS OB BPP W NON-STRESSOrdered By: Radiologist Radiology on 13-19-0378UMYT Healthcare Work Phone: US OB GROWTHon [phone], [place] [address] Ultrasound Report Signed Patient: ЕКАТЕРИНА SUTHERLAND MR#: [id number] : 1995 Acct:[id number] Age/Sex: 28 / F ADM Date: 02/03/24 Loc: US Attending Dr: Marco Bales D.O. Ordering Physician: Marco Bales D.O. Date of Service: 02/03/24 Procedure(s): US OB growth Accession Number(s): [id number] cc: Marco Bales D.O.; Physician,Non-Staff Lalit [facility] [place] [phone] Patient Name: ЕКАТЕРИНА SUTHERLAND MRN: TBH:[id number] date: 1995 Sex: F Assigned Patient Location: [facility] Current Patient Location: US Accession/Order Number: [id number] Exam Date: 02/03/2024 14:20 Report Date: 02/04/2024 [...] Tsang M.D. Signed By: 02/04/2439 DD/ TD/TT: Ordering Box Operator:GRAHAMHRadiology, Radiologist, MD - 02/04/2024 [place] [address] Ultrasound Report Signed Patient: ЕКАТЕРИНА SUTHERLAND MR#: [id number] : 1995 Acct:[id number] Age/Sex: 28 / F ADM Date: 02/03/24 Loc: US Attending Dr: Marco Bales D.O. Ordering Physician: Marco Bales D.O. Date of Service: 02/03/24 Procedure(s): US OB growth Accession Number(s): [id number] cc: Marco Bales D.O.; Physician,Non-Staff Lalit [address] [place] [address] Patient Name: ЕКАТЕРИНА SUTHERLAND MRN: [id number]:[id number] date: 1995 Sex: F Assigned Patient Location: [facility] Current Patient Location: US Accession/Order Number: [id number] Exam Date: 02/03/2024 14:20 Report Date: 02/04/2024 [...] Tsang M.D. Signed By: 02/04/2439 DD/ TD/TT: Ordering Box Operator: KEEGAN HealthcareRadiology Study observation (narrative)NOM HealthcareUS OB GROWTHOrdered By: Radiologist Radiology on 65-71-1514NOHZ [employer] Work Phone: US OB BPP W NON-STRESSon 03-04-2087[place], [place] [address] Ultrasound Report Signed Patient: ЕКАТЕРИНА SUTHERLAND MR#: [id number] : 1995 Acct:[id number] Age/Sex: 28 / F ADM Date: 01/27/24 Loc: US Attending Dr: Marco Bales D.O. Ordering Physician: Marco Bales D.O. Date of Service: 01/27/24 Procedure(s): US OB BPP w non-stress Accession Number(s): [id number] cc: Marco Bales D.O.; Physician,Non-Staff MRom The [address] [address] Patient Name: ЕКАТЕРИНА SUTHERLAND MRN: [facility]:[id number] date: 1995 Sex: F Assigned Patient Location: US Current Patient Location: US Accession/Order Number: [id number] Exam Date: 01/27/2024 14:45 Report Date: 01/27/2024 [...] Signed By: 01/27/24 1521 DD/ 1519 TD/TT: Ordering Box Operator:GRAHAMHRadiology, Radiologist, - 01/27/2024 [place] [address] Ultrasound Report Signed Patient: ЕКАТЕРИНА SUTHERLAND MR#: [id number] : 1995 Acct:[id number] Age/Sex: 28 / F ADM Date: 01/27/24 Loc: US Attending Dr: Marco Bales D.O. Ordering Physician: Marco Bales D.O. Date of Service: 01/27/24 Procedure(s): US OB BPP w non-stress Accession Number(s): [id number] cc: Marco Bales D.O.; Physician,Non-Staff Lalit [facility] [place] [phone] Patient Name: ЕКАТЕРИНА SUTHERLAND MRN: [facility]:[id number] date: 1995 Sex: F Assigned Patient Location: US Current Patient Location: US Accession/Order Number: [id number] Exam Date: 01/27/2024 14:45 Report Date: 01/27/2024 [...] Signed By: 01/27/24 1521 DD/ 1519 TD/TT: Ordering Box Operator: KEEGAN HealthcareRadiology Study observation (narrative)NOMS HealthcareUS OB BPP W NON-STRESSOrdered By: Radiologist Radiology on 83-90-7986PQCY [employer] Work Phone: US OB BPP W NON-STRESSon [phone], [place] [address] Ultrasound Report Signed Patient: ЕКАТЕРИНА SUTHERLAND MR#: [id number] : 1995 Acct:[id number] Age/Sex: 28 / F ADM Date: 01/20/24 Loc: US Attending Dr: Marco Bales D.O. Ordering Physician: Marco Bales D.O. Date of Service: 01/20/24 Procedure(s): US OB BPP w non-stress Accession Number(s): [id number] cc: Marco Bales D.O.; Physician,Non-Staff M.Nancy The [address] [address] Patient Name: ЕКАТЕРИНА SUTHERLAND MRN: [facility]:[id number] date: 1995 Sex: F Assigned Patient Location: [facility] Current Patient Location: Accession/Order Number: [id number] Exam Date: 01/20/2024 19:12 Report Date: 01/21/2024 [...] M.D. Signed By: 01/21/24715 DD/ 2 TD/TT: Ordering Box Operator:GRAHAMHRadiology, Radiologist, MD - 01/21/2024 [place] [id number] Ultrasound Report Signed Patient: ЕКАТЕРИНА SUTHERLAND MR#: [id number] : 1995 Acct:[id number] Age/Sex: 28 / F ADM Date: 01/20/24 Loc: US Attending Dr: Marco Bales D.O. Ordering Physician: Marco Bales D.O. Date of Service: 01/20/24 Procedure(s): US OB BPP w non-stress Accession Number(s): [id number] cc: Marco Bales D.O.; Physician,Non-Staff Lalit [facility] [place] [phone] Patient Name: ЕКАТЕРИНА SUTHERLAND MRN: [facility]:[id number] date: 1995 Sex: F Assigned Patient Location: [facility] Current Patient Location: Accession/Order Number: [id number] Exam Date: 01/20/2024 19:12 Report Date: 01/21/2024 [...] M.D. Signed By: 01/21/24715 DD/ 2 TD/TT: Ordering Box Operator: NOMJovany HealthcareRadiology Study observation (narrative)NOM HealthcareUS OB BPP W NON-STRESSOrdered By: Radiologist Radiology on 66-07-9196NIJJ Healthcare Work Phone: US OB BPP W NON-STRESSon 62-74-6412[place]aph[place], [place] [address] Ultrasound Report Signed Patient: ЕКАТЕРИНА SUTHERLAND MR#: [id number] : 1995 Acct:[id number] Age/Sex: 28 / F ADM Date: 01/13/24 Loc: [facility] 250-[address]: Marco Bales D.O. Ordering Physician: Marco Bales D.O. Date of Service: 01/13/24 Procedure(s): US OB BPP w non-stress Accession Number(s): [id number] cc: Marco Bales D.O.; Physician,Non-Staff MRom The [address] [address] Patient Name: ЕКАТЕРИНА SUTHERLAND MRN: [id number] date: 1995 Sex: F Assigned Patient Location: [facility] Current Patient Location: [facility] Accession/Order Number: [id number] Exam Date: 01/13/2024 14:07 Report Date: 01/13/2024 [...] Signed By: 01/13/24 1455 DD/ 1452 TD/TT: Ordering Box Operator:GRAHAMHRadiology, Radiologist, MD - 01/16/2024 [place] [id number] Ultrasound Report Signed Patient: ЕКАТЕРИНА SUTHERLAND MR#: [id number] : 1995 Acct:[id number] Age/Sex: 28 / F ADM Date: 01/13/24 Loc: [facility] 250-[address]: Marco Bales D.O. Ordering Physician: Marco Bales D.O. Date of Service: 01/13/24 Procedure(s): US OB BPP w non-stress Accession Number(s): [id number] cc: Marco Bales D.O.; Physician,Non-Staff Lalit [facility] [place] [phone] Patient Name: ЕКАТЕРИНА SUTHERLAND MRN: [facility]:[id number] date: 1995 Sex: F Assigned Patient Location: [facility] Current Patient Location: [facility] Accession/Order Number: [id number] Exam Date: 01/13/2024 14:07 Report Date: 01/13/2024 [...] Signed By: 01/13/24 1455 DD/ 1452 TD/TT: Ordering Box Operator: KEEGAN HealthcareRadiology Study observation (narrative)NOMS HealthcareUS OB BPP W NON-STRESSOrdered By: Radiologist Radiology on 90-25-1453UPBNSaint Alexius Hospital Work Phone: aLL CBC WITH AUTO DIFFon 66-12-8003TWALTSTUY ABSOLUTE AUTO0.0NOMS HealthcareBasophils/100 WBC (Bld)0.1 %Low0.2 - 2.0 %[facility] Eosinophils/100 WBC (Bld)0.3 %Low0.9 - 7.0 %NOMS HealthcareErythrocyte distribution width (RBC) [Ratio]13.2 %11.0 - 15.0 %NOMS HealthcareHematocrit (Bld) [Volume fraction]31.2 %Low36.0 - 48.0 %NOMS HealthcareHemoglobin (Bld) [Mass/Vol]10.1 g/dLLow12.0 - 16.0 g/dLNOIA HealthcareIMMATURE GRANULOCYTES ABS AUTO0.04HighNOMS HealthcareImmature granulocytes/100 WBC (Bld)0.6 %High0.0 - 0.5 %NOMS HealthcareInterpretation and review of laboratory resultsAbnormalNOIA HealthcareLYMPHOCYTES ABSOLUTE AUTO1.0LowNOMS HealthcareLymphocytes/100 WBC (Bld)13.6 %Low20.5 - 60.0 %[facility] CenterH (RBC) [Entitic mass]31.3 pg26.7 - 34.0 pgNOTwo Rivers Psychiatric HospitalHC (RBC) [Mass/Vol]32.4 g/dL29.9 - 35.2 g/dLSaint Alexius HospitalMCV (RBC) [Entitic vol]96.6 fL81.0 - 99.0 fLNOIA HealthcareMONOCYTES ABSOLUTE AUTO0.4NOMS HealthcareMonocytes/100 WBC (Bld)5.2 %1.7 - 12.0 %[facility] HealthcareNEUTROPHILS ABSOLUTE AUTO5.8NOMS HealthcareNeutrophils/100 WBC (Bld) 80.2 %High43.0 - 75.0 %[facility] HealthcarePlatelet mean volume (Bld) [Entitic vol] 11.1 fL9.5 - 13.5 fLVA HOSPITAL HealthcareTBH EO #0.0NOMS HealthcareTB FAW286RsfGJHK HealthcareTB RBC3.23LowNOIA HealthcareTBH WBC7.3NOIA HealthcareCLINISYNCNOMS HealthcareGLUCOSE 1 HOURon 77-68-2718Vzsvzty [Mass/Vol]163 mg/dLHighNINF - 130 mg/dLVA HOSPITAL HealthcareInterpretation and review of laboratory resultsAbnormalSaint Alexius HospitalCLINISYNCNOMS HealthcareNo Panel Informationon 51-85-8587Klwyepbqh Study observation (narrative)[facility] OB BPP W NON-STRESSon 76-72-1496[place], [place] [address] Ultrasound Report Signed Patient: ЕКАТЕРИНА SUTHERLAND MR#: [id number] : 1995 Acct:[id number] Age/Sex: 28 / F ADM Date: 01/06/24 Loc: US Attending Dr: Marco Bales D.O. Ordering Physician: Marco Bales D.O. Date of Service: 01/06/24 Procedure(s): US OB BPP w non-stress Accession Number(s): [id number] cc: Marco Bales D.O.; Physician,Non-Staff Lalit The [address] [address] Patient Name: ЕКАТЕРИНА SUTHERLAND MRN: [facility]:[id number] date: 1995 Sex: F Assigned Patient Location: US Current Patient Location: US Accession/Order Number: [id number] Exam Date: 01/06/2024 14:30 Report Date: 01/07/2024 [...] M.D. Signed By: 01/07/24708 DD/ 5 TD/TT: Ordering Box Operator:GRAHAMHRadiology, Radiologist, - 01/07/2024 [place] [address] Ultrasound Report Signed Patient: ЕКАТЕРИНА SUTHERLAND MR#: [id number] : 1995 Acct:[id number] Age/Sex: 28 / F ADM Date: 01/06/24 Loc: US Attending Dr: Marco Bales D.O. Ordering Physician: Marco Bales D.O. Date of Service: 01/06/24 Procedure(s): US OB BPP w non-stress Accession Number(s): [id number] cc: Marco Bales D.O.; Physician,Non-Staff Lalit The [address] [phone] Patient Name: ЕКАТЕРИНА SUTHERLAND MRN: [id number] date: 1995 Sex: F Assigned Patient Location: US Current Patient Location: US Accession/Order Number: [id number] Exam Date: 01/06/2024 14:30 Report Date: 01/07/2024 [...] Tsang M.D. Signed By: 01/07/24 0709 DD/ 5 TD/TT: Ordering Box Operator: KEEGAN Barakat OB BPP W NON-STRESSOrdered By: Radiologist Radiology on 13-10-3895U[facility]I [employer] Work Phone: US OB GROWTHon 13-13-6691[place]aph[place], [place] [address] Ultrasound Report Signed Patient: ЕКАТЕРИНА SUTHERLAND MR#: [id number] : 1995 Acct:[id number] Age/Sex: 28 / F ADM Date: 01/06/24 Loc: US Attending Dr: Marco Bales D.O. Ordering Physician: Marco Bales D.O. Date of Service: 01/06/24 Procedure(s): US OB growth Accession Number(s): [id number] cc: Marco Bales D.O.; Physician,Non-Staff MRom The [address] [address] Patient Name: ЕКАТЕРИНА SUTHERLAND MRN: [facility]:[id number] date: 1995 Sex: F Assigned Patient Location: US Current Patient Location: US Accession/Order Number: [id number] Exam Date: 01/06/2024 14:30 Report Date: 01/07/2024 [...] Signed By: 01/07/24 0708 DD/ 0706 TD/TT: Ordering Box Operator:PARTHAadiology, Radiologist, - 01/07/2024 [place] [address] Ultrasound Report Signed Patient: ЕКАТЕРИНА SUTHERLAND MR#: [id number] : 1995 Acct:[id number] Age/Sex: 28 / F ADM Date: 01/06/24 Loc: US Attending Dr: Marco Bales D.O. Ordering Physician: Marco Bales D.O. Date of Service: 01/06/24 Procedure(s): US OB growth Accession Number(s): [id number] cc: Marco Bales D.O.; Physician,Non-Staff Lalit [place] [phone] Patient Name: ЕКАТЕРИНА SUTHERLAND MRN: [facility]:[id number] date: 1995 Sex: F Assigned Patient Location: US Current Patient Location: US Accession/Order Number: [id number] Exam Date: 01/06/2024 14:30 Report Date: 01/07/2024 [...] M.D. Signed By: 01/07/2408 DD/ 5 TD/TT: Ordering Box Operator: KEEGAN Barakat OB GROWTHOrdered By: Radiologist Radiology on 74-60-1688MBFP [employer] Work Phone: US OB BPP W NON-STRESSon 56-08-3209Tna[place] [phone] Ultrasound Report Signed Patient: ЕКАТЕРИНА SUTHERLAND MR#: [id number] : 1995 Acct:[id number] Age/Sex: 28 / F ADM Date: 12/30/23 Loc: [facility] 250-[address]: Marco Bales D.O. Ordering Physician: Marco Bales D.O. Date of Service: 12/30/23 Procedure(s): US OB BPP w non-stress Accession Number(s): [id number] cc: Marco Bales D.O.; Physician,Non-Staff Lalit The [address] [address] Patient Name: ЕКАТЕРИНА SUTHERLAND MRN: [id number] date: 1995 Sex: F Assigned Patient Location: [facility] Current Patient Location: [facility] Accession/Order Number: [id number] Exam Date: 12/30/2023 14:07 Report Date: 12/30/2023 [...] Tsang M.D. Signed By: 12/30/23 1443 DD/ 39 TD/TT: Ordering Box Operator:GRAHAMHRadiology, Radiologist, - 12/30/[address] [address] Ultrasound Report Signed Patient: ЕКАТЕРИНА SUTHERLAND MR#: [id number] : 1995 Acct:[id number] Age/Sex: 28 / F ADM Date: 12/30/23 Loc: [facility] 250-[address]: Marco Bales D.O. Ordering Physician: Marco Bales D.O. Date of Service: 12/30/23 Procedure(s): US OB BPP w non-stress Accession Number(s): [id number] cc: Marco Bales D.O.; Physician,Non-Staff Lalit [address] [address] Patient Name: ЕКАТЕРИНА SUTHERLAND MRN: [facility]:[id number] date: 1995 Sex: F Assigned Patient Location: [facility] Current Patient Location: [facility] Accession/Order Number: [id number] Exam Date: 12/30/2023 14:07 Report Date: 12/30/2023 [...] By: Alfa Tsang M.D. Signed By: 12/30/23 144 DD/ 39 TD/TT: Ordering Box Operator: KEEGAN HealthcareRadiology Study observation (narrative)KEEGAN HealthcareUS OB BPP W NON-STRESSOrdered By: Radiologist Radiology on 57-74-0318PQQA Healthcare Work Phone: US OB BPP W NON-STRESSon 75-60-0398[place]mk[place]aph[place], [place] [address] Ultrasound Report Signed Patient: ЕКАТЕРИНА SUTHERLAND MR#: [id number] : 1995 Acct:[id number] Age/Sex: 28 / F ADM Date: 12/23/23 Loc: [facility] 250-[address]: Marco Bales D.O. Ordering Physician: Marco Bales D.O. Date of Service: 12/23/23 Procedure(s): US OB BPP w non-stress Accession Number(s): [id number] cc: Marco Bales D.O.; Physician,Non-Staff Lalit [facility] [place] [address] Patient Name: ЕКАТЕРИНА SUTHERLAND MRN: [facility]:[id number] date: 1995 Sex: F Assigned Patient Location: [facility] Current Patient Location: [facility] Accession/Order Number: [id number] Exam Date: 12/23/2023 14:15 Report Date: 12/23/2023 [...] By: Alfa Tsang M.D. Signed By: 12/23/23 1509 DD/ 5553 TD/TT: Ordering Box Operator:APRTHAadiologector, Radiologist, - 12/23/2023 [place] [address] Ultrasound Report Signed Patient: ЕКАТЕРИНА SUTHERLAND MR#: [id number] : 1995 Acct:[id number] Age/Sex: 28 / F ADM Date: 12/23/23 Loc: [facility] 250-[address]: Marco Bales D.O. Ordering Physician: Marco Bales D.O. Date of Service: 12/23/23 Procedure(s): US OB BPP w non-stress Accession Number(s): [id number] cc: Marco Bales D.O.; Physician,Non-Staff Lalit [facility] [address] [place] [address] Patient Name: ЕКАТЕРИНА SUTHERLAND MRN: [facility]:[id number] date: 1995 Sex: F Assigned Patient Location: [facility] Current Patient Location: [facility] Accession/Order Number: [id number] Exam Date: 12/23/2023 14:15 Report Date: 12/23/2023 [...] By: Alfa Tsang M.D. Signed By: 12/23/23 1509 DD/ 1458 TD/TT: Ordering Box Operator: KEEGAN HealthcareRadiology Study observation (narrative)KEEGAN HernandezUS OB BPP W NON-STRESSOrdered By: Radiologist Radiology on 48-60-3669GTOY Healthcare Work Phone: US OB BPP W NON-STRESSon 43-94-4726[place]aph[place], [place] [address] Ultrasound Report Signed Patient: ЕКАТЕРИНА SUTHERLAND MR#: [id number] : 1995 Acct:[id number] Age/Sex: 28 / F ADM Date: 12/16/23 Loc: [facility] 250-[address]: Marco Bales D.O. Ordering Physician: Marco Bales D.O. Date of Service: 12/16/23 Procedure(s): US OB BPP w non-stress Accession Number(s): [id number] cc: Marco Bales D.O.; Physician,Non-Staff Lalit [facility] [place] [address] Patient Name: ЕКАТЕРИНА SUTHERLAND MRN: [facility]:[id number] date: 1995 Sex: F Assigned Patient Location: [facility] Current Patient Location: [facility] Accession/Order Number: [id number] Exam Date: 12/16/2023 14:05 Report Date: 12/16/2023 [...] Tsang M.D. Signed By: 12/16/23 143 DD/ 29 TD/TT: Ordering Box Operator:TBHRadiology, Radiologist, - 12/18/[address] [address] Ultrasound Report Signed Patient: ЕКАТЕРИНА SUTHERLAND MR#: [id number] : 1995 Acct:[id number] Age/Sex: 28 / F ADM Date: 12/16/23 Loc: [facility] 250-[address]: Marco Bales D.O. Ordering Physician: Marco Bales D.O. Date of Service: 12/16/23 Procedure(s): US OB BPP w non-stress Accession Number(s): [id number] cc: Marco Bales D.O.; Physician,Non-Staff Lalit The [place] [phone] Patient Name: ЕКАТЕРИНА SUTHERLAND MRN: [id number]:[id number] date: 1995 Sex: F Assigned Patient Location: [facility] Current Patient Location: [facility] Accession/Order Number: [id number] Exam Date: 12/16/2023 14:05 Report Date: 12/16/2023 [...] profile score: 8.0 Electronically authenticated by: ALFA TASNG Date: 12/16/2023 14:30 Dictated By: Alfa Tsang M.D. Signed By: 12/16/231431 DD/ 29 TD/TT: Ordering Box Operator: KEEGAN HealthcareRadiology Study observation (narrative)NOMS HealthcareUS OB BPP W NON-STRESSOrdered By: Radiologist Radiology on 88-05-3781UMSX [facility] Work Phone: US OB BPP W NON-STRESSon 41-08-0806[place], [place] [address] Ultrasound Report Signed Patient: ЕКАТЕРИНА SUTHERLAND MR#: [id number] : 1995 Acct:[id number] Age/Sex: 28 / F ADM Date: 12/09/23 Loc: [facility] 250-[address]: Marco Bales D.O. Ordering Physician: Marco Bales D.O. Date of Service: 12/09/23 Procedure(s): US OB BPP w non-stress Accession Number(s): [id number] cc: Marco Bales D.O.; Physician,Non-Staff Lalit The [address] [address] Patient Name: ЕКАТЕРИНА SUTHERLAND MRN: [facility]:[id number] date: 1995 Sex: F Assigned Patient Location: [facility] Current Patient Location: [facility] Accession/Order Number: [id number] Exam Date: 12/09/2023 14:32 Report Date: 12/09/2023 [...] Signed By: 12/09/23 1521 DD/ 1519 TD/TT: Ordering Box Operator:GRAHAMHRadiology, Radiologist, - 12/09/2023 The [place] [id number] Ultrasound Report Signed Patient: ЕКАТЕРИНА SUTHERLAND MR#: [id number] : 1995 Acct:[id number] Age/Sex: 28 / F ADM Date: 12/09/23 Loc: [facility] 250-[address]: Marco Bales D.O. Ordering Physician: Marco Bales D.O. Date of Service: 12/09/23 Procedure(s): US OB BPP w non-stress Accession Number(s): [id number] cc: Marco Bales D.O.; Physician,Non-Staff Lalit The [place] [phone] Patient Name: ЕКАТЕРИНА SUTHERLAND MRN: [id number] date: 1995 Sex: F Assigned Patient Location: [facility] Current Patient Location: [facility] Accession/Order Number: [id number] Exam Date: 12/09/2023 14:32 Report Date: 12/09/2023 [...] Signed By: 12/09/23 1521 DD/ 1519 TD/TT: Ordering Box Operator: KEEGAN HealthcareRadiology Study observation (narrative)NOMS HealthcareUS OB BPP W NON-STRESSOrdered By: Radiologist Radiology on 13-81-3528NLLA [facility] Work Phone: US OB GROWTHon 62-45-13[address] [address] Ultrasound Report Signed Patient: ЕКАТЕРИНА SUTHERLAND MR#: [id number] : 1995 Acct:[id number] Age/Sex: 28 / F ADM Date: 12/09/23 Loc: [facility] 250-[address]: Marco Bales D.O. Ordering Physician: Marco Bales D.O. Date of Service: 12/09/23 Procedure(s): US OB growth Accession Number(s): [id number] cc: Marco Bales D.O.; Physician,Non-Staff Lalit [address] [address] Patient Name: ЕКАТЕРИНА SUTHERLAND MRN: [facility]:[id number] date: 1995 Sex: F Assigned Patient Location: [facility] Current Patient Location: [facility] Accession/Order Number: [id number] Exam Date: 12/09/2023 14:32 Report Date: 12/09/2023 [...] By: Alfa Tsang M.D. Signed By: 12/09/23 152 DD/ 152 TD/TT: Ordering Box Operator:TBHRadiology, Radiologist, MD - 12/09/2023 [place] [id number] Ultrasound Report Signed Patient: ЕКАТЕРИНА SUTHERLAND MR#: [id number] : 1995 Acct:[id number] Age/Sex: 28 / F ADM Date: 12/09/23 Loc: [facility] 250-[address]: Marco Bales D.O. Ordering Physician: Marco Bales D.O. Date of Service: 12/09/23 Procedure(s): US OB growth Accession Number(s): [id number] cc: Marco Bales D.O.; Physician,Non-Staff Lalit [facility] [place] [id number] Patient Name: ЕКАТЕРИНА SUTHERLAND MRN: [id number] date: 1995 Sex: F Assigned Patient Location: [facility] Current Patient Location: [facility] Accession/Order Number: [id number] Exam Date: 12/09/2023 14:32 Report Date: 12/09/2023 [...] By: Alfa Tsang M.D. Signed By: 12/09/23 152 DD/ 19 TD/TT: Ordering Box Operator: [facility] HOSPITALJovany HealthcareRadiology Study observation (narrative)[facility] HospitalUS OB GROWTHOrdered By: Radiologist Radiology on 45-35-7100OBFGSaint Alexius Hospital Work Phone: Urinalysis macro (dipstick) panel (U)on 11-27-2023 Bilirubin, UANegativeNegative - 4(70) +++ mg/dLNOMS HealthcareBlood, UANegative Negative - 50 Felice/mcLNOMS HealthcareClarity, UAClearNOMS HealthcareColor, UA YellowNOMS HealthcareGlucose, UANegativeNegative - 2000(110) ++++ mg/dLNOMS HealthcareInterpretation and review of laboratory resultsNormalNOIA Healthcare Ketones, UANegativeNegative - 160(16) ++++ mg/dLNOMS HealthcareLeukocytes, UA NegativeNegative - 500+++ Regina/mcLNOMS HealthcareNitrite, UANegativeNegative - PositiveNOMS HealthcarepH, UA5.55 - 9NOMS HealthcareProtein, UANegativeNegative - 2000(20) ++++ mg/dLNOMS HealthcareSpec Grav, UA1.0301 - 1.03NOMS Healthcare Urobilinogen, UA0.20.2 - 12 mg/dLNOMS HealthcareNOMS HealthcarePREG QUANT HCGon 78-35-1651FBN QUANT17 mIU/mLNormalParkview Health Montpelier HospitalComment on above: Performed By: #### PREGQNT #### [facility] [address] [place] [address] Dr. Anna Alfonso [facility] HospitalComsturgis hospital on above: Result Comment: 5-50 0.2-1 WEEK 50-500 1-2 WEEKS 100-5,000 2-3 WEEKS 500-10,000 3-4 WEEKS 1,000-50,000 4-5 WEEKS 10,000-100,000 5-6 WEEKS 15,000-200,000 6-8 WEEKS 10,000-100,000 2-3 MONTHSPerformed By: #### PREGQNT #### [facility] [address] [place] [address] Dr. Anna Kline QUANT HCGon 11-28-5802NRU VMWVG556 mIU/mLNormalParkview Health Montpelier HospitalComment on above:Performed By: #### GAYLEREleanor, GRASTCX #### [facility] [address] [place] [address] Dr. Anna Alfonso [facility] HospitalComment on above: Result Comment: 5-50 0.2-1 WEEK 50-500 1-2 WEEKS 100-5,000 2-3 WEEKS 500-10,000 3-4 WEEKS 1,000-50,000 4-5 WEEKS 10,000-100,000 5-6 WEEKS 15,000-200,000 6-8 WEEKS 10,000-100,000 2-3 MONTHSPerformed By: #### GAYLEREleanor, GRASTCX #### [facility] [address] [place] [address] Dr. Anna Martin AND RH TYPEon 00-03-1543EFB and Rh group Nom (Bld)ABO Rh Typing A Rh PositiveBethesda North HospitalComment on above:Performed By: #### GAYLEREleanor, GRASTCX #### [facility] [address] [place] [address] Dr. Castillo ChangER URINE PROFILEon 45-13-9701Vfvpzjbay Ql (U)NegativeNormal NEGATIVEParkview Health Montpelier HospitalComment on above:Performed By: #### ERUR, UMICRO #### [facility] [address] [address] [address] Anna RomeroClarity (U)CLEARNormalCLEARParkview Health Montpelier HospitalComment on above: Performed By: #### BRANDI UMICRO #### [facility] [address] [address] [address] Anna Lowlor (U)YELLOWNormalYELLOWParkview Health Montpelier HospitalComment on above: Performed By: #### BRANDI UMICRO #### [facility] [address] [address] [address] Anna Karimi micrscopic examination will be performed if indicated. NormalParkview Health Montpelier HospitalComsturgis hospital on above:Performed By: #### BRANDI UMICRO #### [facility] [address] [address] [address] Anna RomeroGlucose Ql (U)NegativeNormalNEGATIVEParkview Health Montpelier HospitalComsturgis hospital on above:Performed By: #### BRANDI UMICRO #### [facility] [address] [address] [address] Anna RomeroHemoglobin Ql (U)LARGEAbnormalNEGATIVEParkview Health Montpelier Hospital Comment on above:Performed By: #### BRANDI UMICRO #### [facility] [address] [address] [address] Anna RomeroKetones Ql (U)NegativeNormalNEGATIVEParkview Health Montpelier HospitalComment on above:Performed By: #### BRANDI UMICRO #### [facility] [address] [place] [address] Dr. Anna RomeroLEUKOCYTESNegativeNormalNEGATIVEParkview Health Montpelier HospitalComsturgis hospital on above:Performed By: #### BRANDI UMICRO #### [facility] [address] [address] [address] Anna RomeroNitrite Ql (U)NegativeNormalNEGATIVEParkview Health Montpelier HospitalComment on above:Performed By: #### BRANDI UMICRO #### [facility] [address] [address] [address] Anna Caba (U)5.5 [pH]Normal5-9The Genesis HospitalComment on above: Performed By: #### VINCENT PAZ #### [facility] [address] [place] [address] Dr. Anna Gamble GRAVITY>=1.365Doowntzv7.005-<=1.025[facility] Comment on above:Performed By: #### JD PAZRO #### [facility] [address] [place] [address] Dr. Anna Carmona PROTEINTRACENormalNEGATIVE/ TRACEParkview Health Montpelier HospitalComment on above:Performed By: #### JD PAZRO #### [facility] [address] [place] [address] Dr. Anna Esparza MICRO INDINDICATEDBethesda North HospitalComment on above: Performed By: #### JD PAZRO #### [facility] [address] [place] [address] Dr. Anna Currybilinogen Qn (U)0.2 {Joel'U}/dLNormal0.2 - 1.0The Genesis HospitalComment on above:Performed By: #### JD PAZRO #### [facility] [address] [place] [address] Dr. Anna Kline QUANT HCGon 64-57-2216XHO IHRIR7538 mIU/mLNormalThe Genesis HospitalComment on above:Performed By: #### SSCRN, GRASTCX #### [facility] [address] [place] [address] Dr. nAna Alfonso RANGESEE BELOWBethesda North HospitalComment on above: Result Comment: 5-50 0.2-1 WEEK 50-500 1-2 WEEKS 100-5,000 2-3 WEEKS 500-10,000 3-4 WEEKS 1,000-50,000 4-5 WEEKS 10,000-100,000 5-6 WEEKS 15,000-200,000 6-8 WEEKS 10,000-100,000 2-3 MONTHSPerformed By: #### SSCRN, GRASTCX #### [facility] [address] [address] [address] Anna Mazariegos MICROSCOPIC ONLYon 83-45-6289WFLOAATWGQHNXCmwduypvSPTI SEEN [facility] on above:Performed By: #### ERUR, UMICRO #### [facility] [address] [address] [address] Anna Coy identified Cx Nom (U)NOT INDICATEDNormalThKettering Health DaytonComsturgis hospital on above:Performed By: #### ERUR, UMICRO #### [facility] [address] [address] [address] Anna Carrera SEENNormalNONE SEENBrown Memorial Hospital on above:Performed By: #### ERUR, UMICRO #### [facility] [address] [address] [address] Anna Okeefe LM Nom (Urine sed)NONE SEENNormalNONE SEENBrown Memorial Hospital on above:Performed By: #### ERUR, UMICRO #### [facility] [address] [address] [address] Castillo ChangEpithelial cells LM Ql (Urine sed)RARENormalNONE SEEN /RAREBrown Memorial Hospital on above:Performed By: #### ERUR, UMICRO #### [facility] [address] [address] [address] Anna ArguetaCOUSTRACEAbnormalNONE SEENBrown Memorial Hospital on above:Performed By: #### ERUR, UMICRO #### [facility] [address] [address] [address] Anna RomeroWjjnzBYT8-1Cxidflhc4-0WtaBrown Memorial Hospital on above:Performed By: #### ERUR, UMICRO #### [facility] [address] [address] [address] Anna RomeroWBC0-2AbnormalNONE SEENBrown Memorial Hospital on above: Performed By: #### ERUR, UMICRO #### [facility] [address] [address] [address] Anna Welsh PREG TVon 01-21-0343MW PREG TVEXAM: US PREG TV HISTORY: , [...] authenticated by: LUDWIG JEAN BAPTISTE Date: 2023-01-21 16:54NormDetwiler Memorial Hospital URINE PROFILEon 78-04-6212Bqecatecu Ql (U)NegativeNormal NEGATIVEThe Genesis HospitalComment on above:Performed By: #### ERUCanelo #### [facility] [address] [address] [address] Anna RomeroClarity (U)CLEARNormalCLEARThe [facility] HospitalComment on above: Performed By: #### ERUR #### [facility] [address] [address] [address] Anna Lowlor (U)YELLOWNormalYELLOWParkview Health Montpelier HospitalComment on above: Performed By: #### ERUR #### [facility] [address] [address] [address] Anna Karimi micrscopic examination will be performed if indicated. NormalThe [facility] Manor HospitalComment on above:Performed By: #### ERUR #### [facility] [address] [address] [address] Anna RomeroGlucose Ql (U)NegativeNormalNEGATIVEParkview Health Montpelier HospitalComment on above:Performed By: #### ERUR #### [facility] [address] [place] [address] Dr. Anna RomeroHemoglobin Ql (U)NegativeNormalNEGATIVELima City Hospital on above:Performed By: #### ERUR #### [facility] [address] [place] [address] Dr. Anna RomeroKetones Ql (U)NegativeNormalNEGATIVEParkview Health Montpelier HospitalComment on above:Performed By: #### ERUR #### [facility] [address] [place] [address] Dr. Anna RomeroLEUKOCYTESNegativeNormalNEGATIVEBrown Memorial Hospital on above:Performed By: #### ERUR #### [facility] [address] [place] [address] Dr. Anna RomeroNitrite Ql (U)NegativeNormalNEGATIVEParkview Health Montpelier HospitalComment on above:Performed By: #### ERUR #### [facility] [address] [address] [address] Anna RomeropH (U)6.5 [pH]Normal5-9[facility] Medical Centerment on above: Performed By: #### ERUR #### [facility] [address] [address] [address] Anna RomeroSPEC GRAVITY1.984Lthjga4.005-<=1.025The [facility]andace HospitalComment on above:Performed By: #### ERUR #### [facility] [address] [place] [address] Dr. Anna Carmona PROTEINTRACENormalNEGATIVE/ TRACEThe [facility] HospitalComment on above:Performed By: #### ERUR #### [facility] [address] [place] [address] Dr. Anna Esparza MICRO INDNOT INDICATEDNormalThe [facility] HospitalComment on above:Performed By: #### ERUR #### [facility] [address] [place] [address] Dr. Anna Currybilinogen Qn (U)0.2 {Joel'U}/dLNormal0.2 - 1.0The [facility] HospitalComment on above:Performed By: #### ERUR #### [facility] [address] [place] [address] Dr. Anna RomeroGROUP A STREP CULTUREon 01-08-2023S. pyogenes Ag Ql (Unsp spec) Culture Observations: NEGATIVE FOR GROUP A STREPTOCOCCUS.NormalThe [facility] HospitalComment on above: Performed By: #### SSCANTON GRASTCX #### [facility] [address] [place] [address] Dr. Anna RomeroSTREPT SCREENon 36-75-7977ECEWB SCREEN ANegativeNormalNEGATIVEThe [facility] HospitalComment on above:Performed By: #### CHELSI GRASTCX #### [facility] [address] [place] [address] Dr. Anna RomeroSYMPTOMATIC COVID-19 ANTIGENon 20-09-0653MTY StatementSEE BELOW NormalThe [facility] on above:Result Comment: This test has not [...] or authorization is revoked sooner.Performed By: #### SSCRN, GRASTCX #### [facility] [address] [place] [address] Dr. Anna Bonilla-CoV-2 (COVID-19) RNA DAVY+probe Ql (Unsp spec)Positive AbnormalNEGATIVEThe [facility] HospitalComment on above:Performed By: #### SSCRN, GRASTCX #### [facility] [address] [place] [address] Dr. Anna Welsh PREG TVon [id number] PREG TVEXAMINATION: US PREG TV HISTORY: Irregular [...] authenticated by: GENI CABRAL Date: 2022-05-31 19:46NormalThe [facility] HospitalBILIRUBIN TOTALon 50-36-2294Xjmpjfscu [Mass/Vol]0.3 mg/dLNormal 0.2-1.0The [facility] HospitalComment on above:Performed By: #### TBIL #### [facility] [address] [place] [address] Dr. Anna RomeroCBC AUTO DIFFon 49-44-6024BVRA #0.0 103/ulNormal0.0-0.1The [facility] HospitalComment on above:Performed By: #### CBC #### [facility] [address] [address] [address] Anna RomeroBasophils/100 WBC (Bld)0.4 %Normal0.2-2.0The [facility] on above:Performed By: #### CBC #### [facility] [address] [place] [address] Dr. Anna Davis #0.0 103/ulNormal0.0-0.7The [facility] HospitalComment on above: Performed By: #### CBC #### [facility] [address] [place] [address] Dr. Anna Renteriaosinophils/100 WBC (Bld)0.2 %Critically low0.9-7.0The [facility] HospitalComment on above:Performed By: #### CBC #### [facility] [address] [place] [address] Dr. Anna Renteriarythrocyte distribution width (RBC) [Ratio]12.8 %Ljdcvk50.0-15.0 The [facility] HospitalComment on above:Performed By: #### CBC #### [facility] [address] [place] [address] Dr. Anna RomeroHematocrit (Bld) [Volume fraction]39.2 %Duwyut69.0-48.0The [facility] HospitalComment on above:Performed By: #### CBC #### [facility] [address] [place] [address] Dr. Anna RomeroHemoglobin (Bld) [Mass/Vol]12.9 g/iYOunfee11.0-16.0The [facility] HospitalComment on above:Performed By: #### CBC #### [facility] [address] [place] [address] Dr. Anna Cardoza #0.01 10e3/ulNormal0.00-0.03The [facility] HospitalComment on above:Performed By: #### CBC #### [facility] [address] [place] [address] Dr. Anna Cardoza %0.2 %Normal0.0-0.5The [facility] HospitalComment on above: Performed By: #### CBC #### [facility] [address] [place] [address] Dr. Anna Sommers #1.6 103/ulNormal1.2-3.8The [facility] HospitalComment on above:Performed By: #### CBC #### [facility] [address] [place] [address] Dr. Anna Kayhocytes/100 WBC (Bld)29.8 %Svwmap87.5-60.0The [facility] HospitalComment on above:Performed By: #### CBC #### [facility] [address] [place] [address] Dr. Anna Swain DIFF REQNONormalThe [facility] HospitalComment on above: Performed By: #### CBC #### [facility] [address] [place] [address] Dr. Anna Rubio (RBC) [Entitic mass]31.8 gbGoqgrt94.7-34.0The [facility] HospitalComment on above:Performed By: #### CBC #### [facility] [address] [place] [address] Dr. Anna Flores (RBC) [Mass/Vol]32.9 g/jLNhnfkj47.9-35.2The [facility] on above:Performed By: #### CBC #### [facility] [address] [place] [address] Dr. Anna Anderson (RBC) [Entitic vol]96.6 qFFomotj06.0-99.0The [facility] HospitalComment on above:Performed By: #### CBC #### [facility] [address] [place] [address] Dr. Anna Alamo #0.4 103/ulNormal0.3-0.8The [facility] HospitalComsturgis hospital on above:Performed By: #### CBC #### [facility] [address] [place] [address] Dr. Anna Parksocytes/100 WBC (Bld)7.2 %Normal1.7-12.0[facility] Comment on above:Performed By: #### CBC #### [facility] [address] [place] [address] Dr. Anna Jasso #3.3 103/ulNormal1.4-6.5The [facility] HospitalComment on above:Performed By: #### CBC #### [facility] [address] [place] [address] Dr. Anna Hirschutrophils/100 WBC (Bld)62.2 %Avapoo32.0-75.0The [facility] HospitalComment on above:Performed By: #### CBC #### [facility] [address] [place] [address] Dr. Anna Amaya mean volume (Bld) [Entitic vol]10.0 fLNormal9.5-13.5The [facility] HospitalComment on above:Performed By: #### CBC #### [facility] [address] [place] [address] Dr. Anna RetanaT153 103/ozMfdckc770-897Xji Genesis HospitalComment on above: Performed By: #### CBC #### [facility] [address] [place] [address] Dr. Anna TonyC4.06 106/ulCritically low4.20-5.40The [facility] HospitalComment on above:Performed By: #### CBC #### [facility] [address] [place] [address] Dr. Anna BarkleyBC5.3 103/ulNormal4.0-11.0The [facility] HospitalComment on above: Performed By: #### CBC #### [facility] [address] [place] [address] Dr. Anna Rockwell T3on 48-34-7377UEPA T33.18 pg/mlLNormal2.18-3.98The [facility] HospitalComment on above:Performed By: #### SSCRN, GRASTCX #### [facility] [address] [place] [address] Dr. Anna Rockwell T4on 56-41-4092Lzpw T4 [Mass/Vol]1.08 ng/dLNormal0.76-1.46 The [facility] HospitalComment on above:Performed By: #### FT4 #### [facility] [address] [place] [address] Dr. Anna RomeroPROF 14(COMP METB)on 23-23-6614Jipluck [Mass/Vol]4.3 g/dLNormal 3.4-5.0The [facility] HospitalComment on above:Performed By: #### SSCRN, GRASTCX #### [facility] [address] [place] [address] Dr. Anna RomeroAlbumin/Globulin [Mass ratio]1.2 {ratio}NormalThe [facility] HospitalComment on above:Performed By: #### SSCRN, GRASTCX #### [facility] [address] [place] [address] Dr. Anna Santos [Catalytic activity/Vol]60 U/RIbqwun71-123Hxv [facility] HospitalComment on above:Performed By: #### SSCRN, GRASTCX #### [facility] [address] [place] [address] Dr. Anna Brink [Catalytic activity/Vol]25 U/EEyxxha01-49Sxc [facility] HospitalComment on above:Performed By: #### SSCRN, GRASTCX #### [facility] [address] [place] [address] Dr. Anna Williamson gap [Moles/Vol]13.8 mmol/LNormalThe [facility] Comment on above:Performed By: #### SSCRN, GRASTCX #### [facility] [address] [place] [address] Dr. Anna RomeroAST [Catalytic activity/Vol]21 U/MJlujhj68-81Ght [facility] HospitalComment on above:Performed By: #### SSCRN, GRASTCX #### [facility] [address] [place] [address] Dr. Anna RomeroCalcium [Mass/Vol]9.4 mg/dLNormal8.5-10.1[facility] Comment on above:Performed By: #### SSCRN, GRASTCX #### [facility] [address] [address] [address] Anna RomeroChloride [Moles/Vol]101 mmol/VSxgxtl06-074HuzParkview Health Montpelier Hospital Comment on above:Performed By: #### SSCRN, GRASTCX #### [facility] [address] [address] [address] Anna RomeroCO2 [Moles/Vol]26.8 mmol/BFvxnxg80.0-32.0[facility] Comment on above:Performed By: #### SSCRN, GRASTCX #### [facility] [address] [place] [address] Dr. Anna RomeroCreatinine [Mass/Vol]0.87 mg/dLNormal0.55-1.02Park[facility] Montpelier HospitalComment on above:Performed By: #### SSCRN, GRASTCX #### [facility] [address] [place] [address] Dr. Anna RenteriaGFR-AF SOUTH AFRICAN>60Normal>=60The [facility] HospitalComment on above:Performed By: #### SSCRN, GRASTCX #### [facility] [address] [place] [address] Dr. Anna RenteriaGFR-NON AF SOUTH AFRICAN>60Normal>=60Park[facility] Montpelier HospitalComment on above:Performed By: #### SSCRN, GRASTCX #### [facility] [address] [place] [address] Dr. Anna RomeroGlobulin (S) [Mass/Vol]3.5 g/dLNormalThe [facility] HospitalComment on above:Performed By: #### SSCRN, GRASTCX #### [facility] [address] [place] [address] Dr. Anna RomeroGlucose [Mass/Vol]80 mg/aTZilbnu10-773CjcParkview Health Montpelier Hospital Comment on above:Performed By: #### SSCRN, GRASTCX #### [facility] [address] [place] [address] Dr. Anna RomeroPotassium [Moles/Vol]3.6 mmol/LNormal3.5-5.1[facility] Comment on above:Performed By: #### SSCRN, GRASTCX #### [facility] [address] [place] [address] Dr. Anna RomeroProtein [Mass/Vol]7.8 g/dLNormal6.4-8.2[facility] Comment on above:Performed By: #### SSCRN, GRASTCX #### [facility] [address] [place] [address] Dr. Anna RomeroSodium [Moles/Vol]138 mmol/CJemcqa161-619Lfv [facility] Comment on above:Performed By: #### SSCRN, GRASTCX #### [facility] [address] [place] [address] Dr. Anna RomeroUrea nitrogen [Mass/Vol]12.0 mg/dLNormal7.0-18.0Park[facility] Montpelier HospitalComment on above:Performed By: #### SSCREleanor, GRASTCX #### [facility] [address] [place] [address] Dr. Anna Buenrostro nitrogen/Creatinine [Mass ratio]13.8 mg/mgNoLutheran HospitalComment on above:Performed By: #### SSCREleanor, GRASTCX #### [facility] [address] [place] [address] Dr. Anna Marshall 07-20-2220MHI7.442 uIU/mLNormal0.358-3.740Park[facility] Montpelier HospitalComment on above:Performed By: #### SSCRN, GRASTCX #### [facility] [address] [place] [address] Dr. Anna ANGUIANO BELOWBethesda North HospitalComment on above: Result Comment: <0.34 UIU/ml HYPERTHYROID 0.34-5.60 UIU/ml EUTHYROID >5.60 UIU/ml HYPOTHYROIDPerformed By: #### SSCRN, GRASTCX #### [facility] [address] [address] [address] Anna Romero Vital Signs Date TimeVital SignValuePerforming FibivslcgWdhedudg95-75-8712 11:08-0500Body mass index (BMI) [Ratio]26.53 kg/k5Mxlac Nii DO Work Phone: [phone] [place], [place] [address]Mrnzrxvrro99-44-5090 11:08-0500Body yywmdu45.57 kgCorey Nii DO Work Phone: [phone] [place], [place] [address]Jhuwekfizd11-14-9545 11:08-0500Diastolic blood ybnujtcf68 mm[Hg]Marco Nii DO Work Phone: [phone] [place], [place] [address]Lpxnoevbcr43-12-5410 11:08-0500Systolic blood icyxbwcu113 mm[Hg]Marco Nii DO Work Phone: [phone] [place], [place] [address]Qmqpzidbcq51-11-3979 10:14-0400Body mass index (BMI) [Ratio]25.74 kg/m2Amy Krys PA Work Phone: [phone] [place], [place] [address]Czpgivgfqn78-76-5193 10:14-0400Body fnufly96.35 kgAmy Krys PA Work Phone: [phone] [place], [place] [address]Vavynulqsm06-17-1371 10:14-0400Diastolic blood touqgqxa33 mm[Hg]Rosana Marcano PA Work Phone: [phone] [place], [place] [address]Fwaanydxpl63-10-2427 10:14-0400Systolic blood wvaokcvt930 mm[Hg]Rosana Marcano PA Work Phone: [phone] [place], [place] [address]Rgewokihyy43-71-8517 10:08-0400Body mass index (BMI) [Ratio]24.29 kg/i5JkcpbvxoDrew Solorio MANAGER MARK[employer]ING [employer] Work Phone: [phone] [place], [place] [address]Jtqtsztxid21-83-7556 10:08-0400Body eaihik97.27 kgDrew Solorio MANAGER MARKETING [employer]ICATION Work Phone: [phone] [place], [place] [address]Tajwopangt99-82-8528 10:08-0400Diastolic blood wjfelsnx38 mm[Hg]Drew Solorio MANAGER MARK[employer]ICATION Work Phone: [facility] HospitalVbyzawwakm37-90-2110 10:08-0400Systolic blood wqmohwmv337 mm[Hg]Drew Solorio MANAGER MARKET[employer]ICATION Work Phone: [phone] [place], [place] [address]Rgshsafonv25-64-2276 09:58-0400Body mass index (BMI) [Ratio]23.91 kg/x6Eegsp Nii DO Work Phone: [phone] [place], [place] [address]Iogoxpqrwv81-06-7866 09:58-0400Body .19 kgCorey Nii DO Work Phone: [phone] [place], [place] [address]Yzaokzxywx38-39-8111 09:58-0400Diastolic blood ghiitrje06 mm[Hg]Marco Nii DO Work Phone: [phone] [place], [place] [address]Mbuawdjypj17-71-5091 09:58-0400Systolic blood ovugfuld986 mm[Hg]Marco Nii DO Work Phone: [phone] [place], [place] [address]Rgryoabktm33-06-2547 10:15-0400Body mass index (BMI) [Ratio]22.4 kg/t1Cqqiz Nii DO Work Phone: [phone] [place], [place] [address]Gmluvkbaer68-11-5003 10:15-0400Body .96 kgCorey Nii DO Work Phone: [phone] [place], [place] [address]Hlybjcfwui50-74-6932 10:15-0400Diastolic blood hoovmzbh04 mm[Hg]Marco Nii DO Work Phone: [phone] [place], [place] [address]Moopfaqxna04-49-9429 10:15-0400Systolic blood lsqpkhqe054 mm[Hg]Marco Nii DO Work Phone: [phone] [place], [place] [address]Urbmthlelf20-40-0314 11:07-0400Body mass index (BMI) [Ratio]21.79 kg/e7DcisnRome [facility] Hospital08-01-2025 11:07-0400Body weight 61.24 kgRome Memorial Hospital02-14-2024 14:46-0500Body mass index (BMI) [Ratio]25.66 kg/m2Rosana HAYES Work Phone: [phone] [place], [place] [address]Apalfliypn43-98-7611 14:46-0500Body iuaqpw70.12 kgRosana HAYES Work Phone: noMadison Medical CenterPpvzvabols93-87-0084 14:46-0500Diastolic blood mcypwxtt75 mm[Hg]Rosana HAYES Work Phone: noMadison Medical CenterLbvilazwcj43-80-7890 14:46-0500Systolic blood mm[Hg]Rosana HAYES Work Phone: [facility] HospitalDsxwzjpxaj83-32-4982 12:21-0500Body xpeojl282.2 cmHaseeb Nice MD Work Phone: [phone] [place], [place] 1602201-03-2024 12:21-0500Body mass index (BMI) [Ratio]22.55 kg/m2Haseeb Nice MD Work Phone: [phone] [place], [place] 1602201-03-2024 12:21-0500Body azcwvb48.32 kgHaseeb Nice MD Work Phone: [phone] [place], [place] 1602201-03-2024 12:21-0500Diastolic blood ksquzvai05 mm[Hg]Haseeb Nice MD Work Phone: [phone] [place], [place] 1602201-03-2024 12:21-0500Heart rate 79 /minHaseeb Nice MD Work Phone: [phone] [place], [place] 1602201-03-2024 12:21-0500Systolic blood mm[Hg]Haseeb Nice MD Work Phone: [phone] [place] [address] Encounters Encounter DateEncounter TypeCare ProviderFacilityStart: 08-23-2025 End: 32-63-9125Vahteeabv Result EncounterRosana HAYES Work Phone: noms External Department UnsolicitedStart: 08-23-2025 End: 44-94-5025Xtlwupklu Result EncounterRosana HAYES Work Phone: noms External Department UnsolicitedStart: 08-23-2025 End: 25-62-2430Umfffy outpatient visit 15 minutesCorey Nii DO Work Phone: [facility] OBGYNComment on above:Third trimester ([facility]); 31 weeks gestation of ([facility])Start: 08-23-2025 End: 07-99-0893cvjbnaruqtCXVYJ FAZIONot AvailableStart: 08-09-2025 End: 28-77-1434Ngytms Bob HAYES Work Phone: [facility] OBGYNStart: 08-09-2025 End: 04-33-3276Jajvfq Bob HAYES Work Phone: [facility] OBGYNStart: 08-09-2025 End: 37-90-8010rpxuvvnnajJUO RAMEYNot AvailableStart: 08-09-2025 End: 58-49-8021Vdxxak outpatient visit 15 minutesRosana HAYES Work Phone: [facility] OBGYNComment on above: size inconsistent with dates ([facility]) (Primary Dx); Third trimester ([facility]); 29 weeks gestation of ([facility]); History of miscarriage; History of oligohydramnios; Thyroid disease; Acquired autoimmune hypothyroidismStart: 07-21-2025 End: 84-07-7245Tuovpl Jaja Solorio NP Work Phone: [facility] OBGYNStart: 07-21-2025 End: 57-88-9502Drczsl Jaja Solorio NP Work Phone: [facility] OBGYNStart: 07-21-2025 End: 21-30-5338qyxcrnztpgLKEXDZGP EBERLYNot AvailableStart: 07-21-2025 End: 16-96-7603Pblydt outpatient visit 15 minutesDrew Solorio NP Work Phone: [facility] OBGYNComment on above:Acquired autoimmune hypothyroidism (Primary Dx); Second trimester ([facility]); 26 weeks gestation of ([facility]); Depression affecting ([facility])Start: 06-22-2025 End: 67-90-1623Kvvykr flowsheetCorey Nii DO Work Phone: NONL [facility] OBGYNStart: 06-22-2025 End: 54-70-9420Kpsveb flowsheetCorey Nii DO Work Phone: [facility] OBGYNStart: 06-22-2025 End: 73-16-0474Dcqmuf outpatient visit 15 minutesCorey Nii DO Work Phone: [facility] OBGYNComment on above:22 weeks gestation of ([facility]); Second trimester ([facility]); Thyroid disease ; Diabetes mellitus screeningStart: 06-22-2025 End: 26-65-8754zpzkkijvkeDDSOB FAZIONot AvailableStart: 06-09-2025 End: 67-32-5880Mutihbjdk Result EncounterCorey Nii DO Work Phone: NODV External Department UnsolicitedStart: 06-09-2025 End: 21-24-5062Hkdwvavsa Result EncounterCorey Nii DO Work Phone: [facility] External Department UnsolicitedStart: 06-09-2025 End: 09-66-3903uoclwwbbyaBIDZW FAZIONot AvailableStart: 05-25-2025 End: 88-82-9318Jbiume flowsheetCorey Nii DO Work Phone: [facility]BGYNStart: 05-25-2025 End: 61-82-1502Gwzmkt flowsheetCorey Nii DO Work Phone: [facility] OBGYNStart: 05-25-2025 End: 92-57-8402Wqfrnptax Result EncounterCorey Nii DO Work Phone: [facility]OM[facility] External Department UnsolicitedStart: 05-25-2025 End: 35-90-8522Gejlnlev Result EncounterCorey Nii DO Work Phone: [facility] External Department UnsolicitedStart: 05-25-2025 End: 12-15-6114Cpaewug encounter procedureCorey Nii DO Work Phone: noms HealthcareStart: 05-25-2025 End: 77-08-6477Ssifzufq preventive med est patient 18-39 yrsCorey Nii DO Work Phone: [facility] OBGYNComment on above:18 weeks gestation of ([facility]); Second trimester ([facility]); Well woman exam with routine gynecological exam; Screening, , for anatomic survey ([facility]); Exposure to STD; Vaginal discharge; Thyroid diseaseStart: 05-25-2025 End: 26-85-5241hdjnpmamywTNDUK FAZIONot AvailableStart: 05-14-2025 End: 53-38-4695Hcychx outpatient visit 5 minutesFawestley Nurse Noms Bcp ObNOMS Kandace OBGYNComment on above:GA: 58g1kAgsup: 05-14-2025 End: 30-54-4612cazfpcvkyiPQRDP FAZIONot AvailableStart: 02-10-2024 End: 23-11-1027Vduijjpls Result EncounterCorey Nii DO Work Phone: noms External Department UnsolicitedStart: 02-10-2024 End: 74-12-2868Mqzjkdyle Result EncounterCorey Nii DO Work Phone: noms External Department UnsolicitedStart: 02-04-2024 End: 89-21-5592Qdkelgbgf Result EncounterCorey Nii DO Work Phone: noms External Department UnsolicitedStart: 02-04-2024 End: 42-29-9049Mlidnnhuz Result EncounterCorey Nii DO Work Phone: noms External Department UnsolicitedStart: 01-27-2024 End: 29-84-4664Dqbhocgab Result EncounterCorey Nii DO Work Phone: noms External Department UnsolicitedStart: 01-27-2024 End: 82-07-3730Bvozisoba Result EncounterCorey Nii DO Work Phone: noms External Department UnsolicitedStart: 01-21-2024 End: 92-02-5341Iapkpahpr Result EncounterCorey Nii DO Work Phone: NODX External Department UnsolicitedStart: 01-21-2024 End: 94-54-5979Ihcwvqfpl Result EncounterCorey Nii DO Work Phone: NOZB External Department UnsolicitedStart: 01-13-2024 End: 39-36-5145Zvjvimenw Result EncounterCorey Nii DO Work Phone: noms External Department UnsolicitedStart: 01-13-2024 End: 21-11-1184Pqmcxuogu Result EncounterCorey Nii DO Work Phone: noms External Department UnsolicitedStart: 01-07-2024 End: 32-11-5940Origrmrrx Result EncounterCorey Nii DO Work Phone: NOJL External Department UnsolicitedStart: 01-07-2024 End: 39-61-4552Zrylqpyow Result EncounterCorey Nii DO Work Phone: noms External Department UnsolicitedStart: 12-30-2023 End: 71-43-0636Hyotbrhfd Result EncounterCorey Nii DO Work Phone: noms External Department UnsolicitedStart: 12-30-2023 End: 64-54-6627Pcdeyprwx Result EncounterCorey Nii DO Work Phone: NOSS External Department UnsolicitedStart: 12-23-2023 End: 11-74-6177Txmisonaa Result EncounterCorey Nii DO Work Phone: noms External Department UnsolicitedStart: 12-23-2023 End: 18-50-1489Nvyjufxmt Result EncounterCorey Nii DO Work Phone: noms External Department UnsolicitedStart: 12-16-2023 End: 89-33-5664Lnwzkhhas Result EncounterCorey Nii DO Work Phone: noms External Department UnsolicitedStart: 12-16-2023 End: 32-80-8134Xgradqtjx Result EncounterCorey Nii DO Work Phone: noms External Department UnsolicitedStart: 12-09-2023 End: 52-88-1603Cplffxyxh Result EncounterCorey Nii DO Work Phone: noms External Department UnsolicitedStart: 12-09-2023 End: 90-95-0036Fjvapvlek Result EncounterCorey Nii DO Work Phone: noms External Department UnsolicitedStart: 11-27-2023 End: 95-96-3041Lsjqkb outpatient visit 15 minutesAmy Krys HAYES Work Phone: noms [facility] OBComment on above:Second trimester ; with normal glucose tolerance test (GTT); Diabetes mellitus screening; History of miscarriage; History of oligohydramniosStart: 11-19-2023 End: 37-49-6226hzegxgvdneMZSJN R Veterans Health Administrationtart: 10-29-2023 End: 08-82-0041xvvbjndcmaOMHPXWVUMedicine Harrison Community Hospitaltart: 43-68-9711Fxgmgvnsslfeh procedureHind Darius Nice MD Work Phone: [phone]-Icqdy Medicine at [facility] Comment on above:History of oligohydramnios in prior , currently (Primary Dx); 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; History of delivery, currently Start: 03-40-8591Jrfezummk encounterRachelle Mullen LPNMaternal- Medicine at [facility] Start: 28-67-5497Ykkyt Vida Rollins MD Work Phone: [phone]-Acmvg Medicine at [facility] Start: 25-15-2825Fjykzl Grace Rodriguez CMAMaternal- Medicine at [facility] HospitalComment on above:History of oligohydramnios in prior , currently (Primary Dx)Start: 10-16-2023 End: 47-93-5903rhzutmujamQFIEO R FAZIEast [facility] HospitalStart: 10-16-2023 End: 93-79-1437Isyahx outpatient new 45 minutesHind Darius Nice MD Work Phone: [phone]-Jktjw Medicine at [facility] Comment on above:High-risk in second trimester (Primary Dx); History of oligohydramnios in prior , currently ; 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; 20 weeks gestation of pregnancyStart: 96-14-8060Jqfjr abstractingScanning Provider ExternalMaternal- Medicine at [facility] Centertart: 01-28-2023 End: 91-38-0099mtwgyzhpbrXP COREY FAZIO .Facility:A9Sevve: 01-23-2023 End: 06-25-8804keonryxakaAV COREY FAZIO .Facility:V3Njnng: 01-22-2023 End: 51-14-2463rqphwvinwhBFIRAW DIAB .Facility:J6Frzyl: 01-21-2023 End: 02-72-1301mhqfasbhqeRAMIWVQ D KATKOFacility:S7Ehqpu: 01-08-2023 End: 26-56-8796bzyrgroakuDG STEPHEN G REINECKFacility:I3Xiyvt: 10-20-2022 End: 50-06-3189idmesnyeieQIXLOSH D KATKOFacility:T5Btaym: 35-39-0118lkzczejyxjDX COREY FAZIO .Facility:Z1Ietcx: 05-31-2022 End: 97-96-4533hgvdhsndilDB COREY FAZIO .Facility:I7Vkask: 19-70-9824koyykqitst DR MARCO BALES .Facility:Q5Rbcnm: 03-16-2022 End: 03-91-2554aznbhatazoTQ KIM E KNIGHT .Facility:K1Lhekx: 03-03-2022 End: 27-07-9116lprymhvszfPCTJRUT D KATKOFacility:H1 Procedures DateProcedureProcedure DetailPerforming ClinicianStart: 05-31-7747Qyppy dip stick/tablet rgnt non-auto w/o micrscpCorey Nii DO Work Phone: Start: 43-88-8092FTM CBC WITH AUTO DIFFAmy Krys HAYES Work Phone: Start: 73-66-6224Teqnj dip stick/tablet rgnt non-auto w/o micrscpAmy Krys HAYES Work Phone: Start: 79-09-1029Hpcot dip stick/tablet rgnt non-auto w/o micrscpDrew Solorio NP Work Phone: Start: 99-35-8304Kxqco dip stick/tablet rgnt non-auto w/o micrscpCorey Nii DO Work Phone: Start: 88-92-3508WMO CBC WITH AUTO DIFFCorey Nii DO Work Phone: Start: 99-00-1579MQUUXRPUV VAGINITIS (HTRX)Marco Nii DO Work Phone: Start: 90-02-0137Fdhad dip stick/tablet rgnt non-auto w/o micrscpCorey Nii DO Work Phone: Start: 86-56-6315OQP,APTIMA HPV,AGE GDLNCorey Nii DO Work Phone: Start: 23-14-9583Xkjyhgmmsme observation [Identifier] in Cervix by Cyto stainCorey Nii DO Work Phone: Start: 05-14-2025 End: 23-95-4365Gzlba dip stick/tablet rgnt non-auto w/o micrscpCorey Nii DO Work Phone: Start: 96-46-5553FP OB BPP W NON-STRESSCorey Nii DO Work Phone: Start: 15-72-8300PG OB GROWTHCorey Nii DO Work Phone: Start: 01-18-3402GE OB BPP W NON-STRESSCorey Nii DO Work Phone: Start: 75-07-8964MC OB BPP W NON-STRESSCorey Nii DO Work Phone: Start: 16-90-3295WZ OB BPP W NON-STRESSCorey Nii DO Work Phone: Start: 39-65-1351FD OB BPP W NON-STRESSCorey Nii DO Work Phone: Start: 08-01-6676CYM CBC WITH AUTO DIFFRosana HAYES Work Phone: Start: 55-80-6476VZLKTKV 1 HOURAmy Krys HAYES Work Phone: Start: 83-96-6563KX OB BPP W NON-STRESSCorey Nii DO Work Phone: Start: 62-24-8887GN OB GROWTHCorey Nii DO Work Phone: Start: 86-29-4286ZG OB BPP W NON-STRESSCorey Nii DO Work Phone: Start: 47-71-4787TQ OB BPP W NON-STRESSCorey Nii DO Work Phone: Start: 10-91-9798YD OB BPP W NON-STRESSCorey Nii DO Work Phone: Start: 80-83-9348NI OB GROWTHCorey Nii DO Work Phone: Start: 18-26-7140TT OB BPP W NON-STRESSCorey Nii DO Work Phone: Start: 18-42-6862Efsup dip stick/tablet rgnt non-auto w/o micrscpAmy Krys HAYES Work Phone: Start: 86-52-7716Vutvgvctzcu observation [Identifier] in Cervix by Cyto stainNii Ob Plan of Treatment DateCare ActivityDetailAuthorStart: 03-14-6512VAoR,Tdap and Td Vaccines (9 - Td or Tdap)DTaP,Tdap and Td Vaccines (9 - Td or Tdap)[facility] SystemStart: 91-84-3751Diggbjpbr for malignant neoplasm of cervixNOMS HealthcareStart: 84-79-9245Avglxgqic for malignant neoplasm of cervixPap SmearNOMS Healthcare Start: 11-08-2025 End: 32-81-8093Dlgrtnw encounter oyyruhwdp93/26/2026 10:10 AM EST Consult [facility] [address] [place] [address] Marco Bales, DO [address] [place] [address] [facility] OBGYNStart: 09-07-2025 End: 19-30-3563Ujxwewj encounter bxstdczce07/25/2025 9:30 AM EST Routine [facility]BGYEleanor [address] [facility] [facility] [place], [id number] Rosana Marcano PA [address] [place] [address] [facility] OBGYNStart: 08-23-2025 End: 25-88-4582Xheteeu encounter kfxoxwmwx12/10/2025 11:00 AM EST Routine [facility] [address] [place] [id number] Marco Bales, DO [address] [place] [address] [facility] OBGYNStart: 08-23-2025 End: 47-70-7683Qbagugugiqsh / ancillary services gqyjmcljwb35/10/2025 10:30 AM EST Ancillary Procedure [facility] [address] [place] [id number] [facility] OBGYNStart: 08-09-2025 End: 80-12-3507SK for pregnancyUS OB follow up transabdominal approach Imaging Routine History of miscarriage History of oligohydramnios Thyroid disease Expected: 08/09/2025, Expires: 12/10/2025[facility] HealthcareComment on above: Expected: 08/09/2025, Expires: 12/10/2025Start: 08-03-2025 End: 61-90-7349Enmrteq encounter okzgwcuhu52/21/2025 1:20 PM EDT Routine [facility] DIETZ [address] [place], [id number] Rosana Marcano PA [address] [place], [place] [id number] NOMJovany [place] OBGYNStart: 07-21-2025 End: 52-79-4457Igeffpd encounter fnwmihdde48/08/2025 10:00 AM EDT Routine NOMJovany DIETZ [address] [place] [address] Drew Solorio, MANAGER MARKETING [employer]ICATION [address] [place] [phone] YUNGJovany [facility]ace OBGYNStart: 06-22-2025 End: 53-14-4930MZA panel - Blood by Automated countCBC Lab Routine Diabetes mellitus screening Expected: 06/22/2025 (Approximate), Expires: 06/22/2026[facility] Work Phone: comment on above:Expected: 06/22/2025 (Approximate), Expires: 06/22/2026Start: 06-22-2025 End: 41-25-9471Suhyjizxaoq of glucose 1 hour after glucose challenge for glucose tolerance testGlucose tolerance, 1 hour Lab Routine Diabetes mellitus screening Expected: 06/22/2025 (Approximate), Expires: 06/22/2026[facility] HealthcareComment on above:Expected: 06/22/2025 (Approximate), Expires: 06/22/2026Start: 06-22-2025 End: 79-87-3792Wxrkuas encounter procedureNOMS P[facility] Manor OBGYNComment on above: ArrivedStart: 38-35-6390EJWAD-19 Vaccine ( season)COVID-19 Vaccine ( season)[facility] HealthcareStart: 78-66-9812Inmsoovpt vaccinationInfluenza Vaccine (#1)[facility] HealthcareStart: 06-09-2025 End: 56-01-2424Ygwmclcvcwbx / ancillary services qnhgrssbfu48/27/2025 11:00 AM EDT Ancillary Procedure [facility] [address] [place] [address] BILR [facility] OBGYNStart: 05-25-2025 End: 86-61-3635Banpj fetoprotein, maternalAlpha fetoprotein, maternal Lab Routine 18 weeks gestation of ([facility]) Second trimester ([facility]) Expected: 05/25/2025 (Approximate), Expires: 07/25/2025[facility] Comment on above:Expected: 05/25/2025 (Approximate), Expires: 07/25/2025Start: 05-25-2025 End: 33-81-2624Zskcmwookqt [Units/volume] in Serum or PlasmaTSH Lab Routine Thyroid disease Expected: 05/25/2025 (Approximate), Expires: 05/25/2026[facility] HealthcareComment on above:Expected: 05/25/2025 (Approximate), Expires: 05/25/2026Start: 05-25-2025 End: 40-50-3937XT for pregnancyUS OB 14+ weeks anatomy scan Imaging Routine Screening, , for anatomic survey ([facility]) Expected: 05/25/2025, Expires: 08/25/2025[facility] HealthcareComment on above:Expected: 05/25/2025, Expires: 08/25/2025Start: 05-25-2025 End: 94-59-1697Ffjnxzq encounter procedureNOMS Kandace OBGYNComment on above: ArrivedStart: 05-14-2025 End: 02-45-6484MKJ/RhABO/Rh Lab Routine Missed menses , unspecified gestational age ([facility]) Expected: 05/14/2025 (Approximate), Expires: 05/14/2026[facility] HealthcareComment on above:Expected: 05/14/2025 (Approximate), Expires: 05/14/2026Start: 05-14-2025 End: 61-04-5494Xtmhm type and Indirect antibody screen panel - BloodType and screen Lab Routine Missed menses , unspecified gestational age ([facility]) Expected: 05/14/2025 (Approximate), Expires: 05/14/2026[facility] Work Phone: Comment on above:Expected: 05/14/2025 (Approximate), Expires: 05/14/2026Start: 05-14-2025 End: 96-46-6843Gyewg of abuse panel - Urine by Screen methodRapid drug screen, urine Lab Routine , unspecified gestational age ([facility]) Encounter for supervision of normal first in first trimester ([facility]) Expected: 05/14/2025 (Approximate), Expires: 05/14/2026[facility] HealthcareComment on above: Expected: 05/14/2025 (Approximate), Expires: 05/14/2026Start: 10-22-2024 End: 78-19-8449PS MFM with or without consultUS MFM with or without consult Imaging Routine History of oligohydramnios in prior , currently 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 History of delivery, currently Expected: 10/22/2024 (Approximate), Expires: 10/[facility]/2024[facility] Work Phone: Comment on above:Expected: 10/22/2024 (Approximate), Expires: 10/22/2024Start: 10-17-2024 End: 86-02-7580UI MFM with or without consultUS MFM with or without consult Imaging Routine History of oligohydramnios in prior , currently Expected: 10/17/2024 (Approximate), Expires: 10/17/2024[facility] Work Phone: Comment on above:Expected: 10/17/2024 (Approximate), Expires: 10/17/2024Start: 64-29-6827Miqtg BMI ScreeningAdult BMI Screening [facility] SystemStart: 19-32-5837Nebsafg ScreeningTobacco Screening [facility] SystemStart: 12-11-2023 End: 00-12-1953Wuftyza encounter gnaeulxxy46/28/2024 10:20 AM EST Routine [facility] [address] [place] [address] Marco Bales, DO [address] [place] [address] NOMS BCP OBStart: 11-27-2023 End: 18-95-3719COJ panel - Blood by Automated countCBC Lab Routine Diabetes mellitus screening Expected: 11/27/2023 (Approximate), Expires: 11/27/2024[facility] Work Phone: comment on above:Expected: 11/27/2023 (Approximate), Expires: 11/27/2024Start: 11-27-2023 End: 77-11-2250Liqoypsqqcy of glucose 1 hour after glucose challenge for glucose tolerance testGlucose tolerance, 1 hour Lab Routine Diabetes mellitus screening Expected: 11/27/2023 (Approximate), Expires: 11/27/2024[facility] HealthcareComment on above:Expected: 11/27/2023 (Approximate), Expires: 11/27/2024Start: 11-27-2023 End: 10-33-9509JE biophysical profile w non stress testUS biophysical profile w non stress test Imaging Routine History of miscarriage History of oligohydramnios Expected: 11/27/2023 (Approximate), Expires: 11/27/2024[facility] HealthcareComment on above:Expected: 11/27/2023 (Approximate), Expires: 11/27/2024Start: 11-27-2023 End: 77-86-6406IQ for pregnancyUS OB SCAN FOR GROWTH Imaging Routine History of miscarriage History of oligohydramnios Expected: 11/27/2023 (Approximate), Expires: 11/27/2024[facility] HealthcareComment on above:Expected: 11/27/2023 (Approximate), Expires: 11/27/2024Start: 11-19-2023 End: 22-81-3346Xlcxhca encounter oftyaprur27/06/2024 9:15 AM EST Appointment [facility] - Ultrasound [address] [place] [address] HguVgrhzfWvumedicine [facility] - UltrasoundStart: 10-29-2023 End: 33-46-6568Zwazwmb encounter cvqwtkcdu84/16/2024 9:15 AM EST Appointment [facility] - Ultrasound [address] [place] [address] EhfQxtryhKettering Memorial Hospital - UltrasoundStart: 10-16-2023 End: 18-75-3204Lekkyab encounter iogdteuuf22/03/2024 1:00 PM EST Office Visit Maternal- Medicine at [facility] [address] [place] [phone] Haseeb Nice MD [address], [address] [place] [address], [id number] [facility]art: 16-71-1353Kcxdzlznwn hospital visit by physician 10/16/2023 11:30 AM EST Hospital Encounter [facility] - [facility] Imaging [address] [place] [phone] [phone] [facility] - [facility] US ImagingStart: 38-31-9786Mzjisarny vaccinationInfluenza Vaccine [facility] SystemStart: 73-47-5394WXB Vaccines (1 - 3-dose SCDM series)HPV Vaccines (1 - 3-dose SCDM series)[facility] HealthcareStart: 48-86-6627Padtsjfve for malignant neoplasm of cervixPap SmearSelect Medical [facility] SystemStart: 2012 DTaP,Tdap and Td Vaccines (1 - Tdap)DTaP,Tdap and Td Vaccines (1 - Tdap) [facility] SystemStart: 27-50-8469Ewojukzsz B Vaccines (1 of 3 - 19+ 3- dose series)Hepatitis B Vaccines (1 of 3 - 19+ 3-dose series)[facility] Start: 03-32-6898Cjbet BMI ScreeningAdult BMI ScreeningSelect [facility] Start: 27-77-0778Gavvkqo of varicella vaccinationVaricella Vaccines (1 of 2 - 13+ 2-dose series)[facility] HealthcareStart: 39-08-5095Gibkbcweey ScreeningDepression ScreeningSelect [facility] SystemStart: 10-08-5107Camhoux ScreeningTobacco ScreeningSelect [facility] SystemStart: 54-81-9004GIpJ/Tdap/Td Vaccines (1 - Tdap)DTaP/Tdap/Td Vaccines (1 - Tdap)[facility] HealthcareStart: 62-74-0467LHE Vaccines (1 of 1 - Standard series)MMR Vaccines (1 of 1 - Standard series)[facility] HealthcareStart: 83-86-1395Kwwirzf CounselingTobarolling hills hospital – ada CounselingTrinity Health System Twin City Medical CenterBacteria identified in Urine by CultureUrine culture Microbiology Routine Missed menses Ordered: 05/14/2025[facility] HealthcareComment on above:Ordered: 05/14/2025BC W Auto Differential panel - BloodCBC and differential Lab Routine Missed menses , unspecified gestational age ([facility]) Ordered: 05/14/2025[facility] HealthcareComment on above:Ordered: 05/14/2025BC W Auto Differential panel - BloodCBC and differential Lab Routine 29 weeks gestation of ([facility]) Ordered: 08/09/2025[facility] Work Phone: comment on above:Ordered: 08/09/2025HLAMYDIA TRACHOMATIS (GENITO/STI)CHLAMYDIA TRACHOMATIS (GENITO/STI) Lab Routine Exposure to STD Ordered: 05/25/2025[facility] HealthcareComment on above:Ordered: 05/25/2025 Cytology Cervical or vaginal smear or scraping studyPap Smear Pathology and Cytology Routine Well woman exam with routine gynecological exam Ordered: [facility] HealthcareComment on above:Ordered: 05/25/2025Hemoglobin A1c/Hemoglobin.total in BloodHemoglobin A1c Lab Routine Missed menses , unspecified gestational age ([facility]) Ordered: 05/14/2025[facility] HealthcareComment on above:Ordered: 05/14/2025Hemoglobin A1c/Hemoglobin.total in BloodHemoglobin A1c Lab Routine 29 weeks gestation of ([facility]) Ordered: 08/09/2025 [facility] HealthcareComment on above:Ordered: 08/09/2025Hepatitis B virus surface Ag [Presence] in Serum or Plasma by ImmunoassayHepatitis B surface antigen Lab Routine Missed menses , unspecified gestational age ([facility]) Ordered: 05/14/2025[facility] HealthcareComment on above:Ordered: 05/14/2025Hepatitis C virus Ab [Presence] in Serum or Plasma by ImmunoassayHepatitis C antibody Lab Routine Missed menses , unspecified gestational age ([facility]) Ordered: 05/14/2025[facility] HealthcareComment on above:Ordered: 05/14/2025HIV-1/HIV-2 antigen/antibody combination immunoassayHIV-1 and HIV-2 antibodies Lab Routine Missed menses , unspecified gestational age ([facility]) Ordered: 05/14/2025[facility] HealthcareComment on above:Ordered: 05/14/2025Human papilloma virus DNA [Presence] in Unspecified specimen by Probe with amplificationHPV DNA probe, amplified Microbiology Routine Well woman exam with routine gynecological exam Ordered: 05/25/2025[facility] HealthcareComment on above:Ordered: 05/25/2025 Neisseria gonorrhoeae DNA [Presence] in Unspecified specimen by DAVY with probe detectionNeisseria gonorrhea DNA probe, direct Lab Routine Exposure to STD Ordered: 05/25/2025[facility] HealthcareComment on above:Ordered: 05/25/2025Reagin Ab [Presence] in Serum by RPRRPR Lab Routine Missed menses , unspecified gestational age ([facility]) Ordered: 05/14/2025[facility] HealthcareComment on above: Ordered: 05/14/2025Rubella antibody, IgGRubella antibody, IgG Lab Routine Missed menses , unspecified gestational age ([facility]) Ordered: 05/14/2025[facility] HealthcareComment on above:Ordered: 05/14/2025SURESWAB(R) ADVANCED VAGINITIS PLUS, TMASURESWAB(R) ADVANCED VAGINITIS PLUS, TMA Pathology and Cytology Routine Vaginal discharge Ordered: 05/25/2025[facility] Work Phone: comment on above:Ordered: 05/25/2025 End: 60-05-8864Mtcxrxnbusy [Units/volume] in Serum or PlasmaTSH Lab Routine Acquired autoimmune hypothyroidism monthy for 3 Occurrences starting 07/21/2025 until 10/21/2025[facility] Work Phone: comment on above:monthy for 3 Occurrences starting 07/21/2025 until 10/21/2025 Payers DatePayer CategoryPayerPolicy [id number] [id number] Health Insurance [employer] [id number] 2..1.881741.3.57[id number] 2.0.1.095027.3.57[id number] 2.0.1.710928.3.57[id number] 2..1.230991.3.57[id number] 2.0.1.096068.3.57[id number] 2.840.1.915218.3.57[id number] 2.16.840.1.768551.3.57[id number] 2.840.1.365766.3.57[id number] 2.840.1.201870.3.57[id number] 2.840.1.220824.3.57[id number] 2.840.1.143803.3.57[id number] 2.840.1.339196.3.57[id number] 2.840.1.854928.3.57[id number] 2.840.1.564729.3.57[id number] 2.840.1.170781.3.57[id number] 2..1.109579.3.57[id number] 2.840.1.771075.3.57[id number] 2.840.1.612907.3.57[id number] 2.840.1.637836.3.57[id number] 2.840.1.236526.3.57[id number] 2.0.1.049752.3.57[id number] 2.840.1.308702.3.57[id number] 2..840.1.423855.3.57[id number] 2.0.1.604908.3.57[id number] 2.0.1.082991.3.579.2.705031-00-5398Mhfy-can48399423730-63-8310Jidlgkj [id number] Social History DateTypeDetailFacilityStart: 90-94-7926Dpfwigi smoking status NHISTobacco smoking consumption unknownProEast [facility] SystemStart: 57-40-0859Dobqabbkz [facility] SystemStart: 85-16-5990Hwn Assigned At BirthFeSaint [facility] of God [facility] HealthcareStart: 77-93-0242Ehsijn identityIdentifies as female gender (finding) [facility] HealthcareStart: 34-87-6417Wqjgzc orientationHeterosexual (finding)[facility] HealthcareStart: 03-23-2019 End: 96-29-8684Lvcdcem of Social functionSelect Medical Cleveland Clinic [facility] SystemStart: 03-23-2019 End: 83-68-4175Tbueicb InstabilitySelect Medical Cleveland [facility] SystemStart: 12-26-2022 [facility]abilitySt[facility] SystemStart: 91-72-6033Qct Assigned At BirthNot on fileSelect Medical [facility] SystemStart: 03-18-4064Lzzqkto smoking status NHISSmokes tobacco dailySelect Medical [facility] SystemHistory of tobacco use Cigarette SmokerSelect Medical Cleveland Clinic [facility] SystemStart: 32-68-5428Lugrlcs use and exposure Smokeless tobacco non-userSelect Medical [facility] SystemStart: 10-16-2023 End: 78-12-8391Iahpmcm intakeEx-drinker (finding)[facility] System Goals DatePatient GoalDesired Activity/StatePersonal health goal Clinical Notes 03-16-2022 to 08-23-2025 Note Date & RjgmIqorCpntqxcc88-60-8492 History of Present illness Narrative* Marco AcevedoDO westley - 08/23/2025 11:00 AM EST Reason for Appointment: Patient ID: Екатерина Sutherland is a 30 y.o. female who presents for Routine Visit Patient presents today for Return OB appointment. Current Medications: has a current medication list which includes the following prescription(s): citalopram, levothyroxine, and m-sindi plus. Medical History: Active Ambulatory [...] nursing note reviewed. Exam conducted with a optical manager present. Vitals: Estimated body mass index is 26.53 kg/m as calculated from the following: Height as of 04/02/24: 5' 6 . Weight as of this encounter: 164 lb 6.4 oz. BP: 108/62 No LMP recorded. Patient is . Assessment/Plan Encounter Diagnosis: ICD-10-CM 1. Third trimester ([facility]) Z34.93 2. 31 weeks gestation of ([facility]) Z3A.31 POCT urinalysis dipstick manually resulted Return OB: Patient presents today for a routine obstetrics appointment. Patient is currently 31w2d . Patient states she is doing well [...] [3] No Known Allergies documented in this encounterSaint Alexius HospitalNqsutstisk94-27-2943 History of Present illness Narrative* ABIGAIL Chinchilla [...] nursing note reviewed. Exam conducted with a optical manager present. Vitals: Estimated body mass index is 25.74 kg/m as calculated from the following: Height as of 04/02/24: 5' 6 . Weight as of this encounter: 159 lb 8 oz. BP: 110/52 No LMP recorded. Patient is . Assessment/Plan ICD-10-CM 1. Third trimester ([facility]) Z34.93 2. 29 weeks gestation of ([facility]) Z3A.29 CBC and differential Hemoglobin A1c POCT [...] behalf of: ABIGAIL Chinchilla documented in this encounterSaint Alexius HospitalOyyttawmcs99-84-6113 History of Present illness Narrative* Drew Solorio [...] nursing note reviewed. Exam conducted with a optical manager present. Vitals: Estimated body mass index is 24.29 kg/m as calculated from the following: Height as of 04/02/24: 5' 6 . Weight as of this encounter: 150 lb 8 oz. BP: 110/60 No LMP recorded. Patient is . ASSESSMENT & PLAN ICD-10-CM 1. Acquired autoimmune hypothyroidism E06.3 TSH 2. Second trimester ([facility]) Z34.92 POCT urinalysis dipstick manually resulted 3. 26 weeks gestation of ([facility]) Z3A.26 4. Depression affecting ([facility]) O99.340 citalopram (CeleXA) 20 MG tablet F32.A [...] of: Drew Solorio NP documented in this encounterSaint Alexius HospitalGdevgqlydn30-96-9895 History of Present illness Narrative* Deepika Frye [...] nursing note reviewed. Exam conducted with a optical manager present. Vitals: Estimated body mass index is 23.91 kg/m as calculated from the following: Height as of 04/02/24: 5' 6 . Weight as of this encounter: 148 lb 1.9 oz. BP: 100/60 No LMP recorded. Patient is . ASSESSMENT & PLAN ICD-10-CM 1. 22 weeks gestation of ([facility]) Z3A.22 POCT urinalysis dipstick manually resulted 2. Second trimester ([facility]) Z34.92 POCT urinalysis dipstick manually resulted [...] of: Marco Bales DO documented in this encounterSaint Alexius HospitalWzcbhgyybw98-68-4150 History of Present illness Narrative* Deepika Frye [...] nursing note reviewed. Exam conducted with a optical manager present. Vitals: Estimated body mass index is 22.4 kg/m as calculated from the following: Height as of 04/02/24: 5' 6 . Weight as of this encounter: 138 lb 12.8 oz. BP: 100/60 No LMP recorded. Patient is . ASSESSMENT & PLAN ICD-10-CM 1. 18 weeks gestation of ([facility]) Z3A.18 POCT urinalysis dipstick manually resulted Alpha fetoprotein, maternal Alpha fetoprotein, maternal 2. Second trimester ([facility]) Z34.92 POCT urinalysis dipstick manually resulted Alpha fetoprotein, maternal Alpha fetoprotein, maternal 3. Well woman exam with routine gynecological exam Z01.419 Pap Smear HPV DNA probe, amplified 4. Screening, , for anatomic survey ([facility]) Z36.89 US OB 14+ weeks anatomy scan US OB 14+ weeks anatomy scan 5. Exposure to STD Z20.2 CHLAMYDIA TRACHOMATIS (GENITO/STI) Neisseria gonorrhea DNA probe, direct 6. Vaginal discharge N89.8 SURESWAB(R) ADVANCED VAGINITIS PLUS, TMA 7. Thyroid disease E07.9 TSH TSH Return OB/Annual Exam: Patient presents today for a annual exam/routine obstetrics appointment. Patient is currently 87p3exxhcgcjd. Pt advised to have labs drawn. Pap [...] of: Marco Bales DO documented in this encounterSaint Alexius [id number] History of Present illness Narrative* Sana Rogers [...] 11/2016 22w0d F Vag-Spont ND Complications: Oligohydramnios ([facility]) 4 Term 10/25/14 38w0d 6 lb 1 [...] urinalysis dipstick manually resulted Positive urine test ([facility]) , unspecified gestational age ([facility]) - Type and screen; Future - ABO/Rh; Future - CBC and differential - Hemoglobin A1c - RPR - Rubella antibody, IgG - Hepatitis B surface antigen - Hepatitis C antibody - HIV-1 and HIV-2 antibodies - Rapid drug screen, urine; Future Encounter for supervision of normal first in first trimester ([facility]) - Rapid drug screen, urine; Future Nausea and vomiting in ([facility]) - ondansetron ODT (Zofran-ODT) 4 MG [...] by: Sana Rogers LPN documented in this encounterSaint Alexius HospitalGsuqtnmfny90-56-4707 History of Present illness Narrative* ABIGAIL Chinchilla [...] Non-compliant patient Smoker Thyroid disease ([facility]) No family history on file. Social History [...] behalf of: ABIGAIL Chinchilla documented in this encounterSaint Alexius [id number] Miscellaneous Notes* Telephone Encounter - Rachelle Mullen LPN - 10/22/2023 12:28 PM EST Please call us back to schedule an ultrasound next week. [facility] Telephone encounter Note* Telephone Encounter - Rachelle Mullen LPN - 10/22/2023 12:28 PM EST Please call us back to schedule an ultrasound next week. [facility]01[facility] History of Present illness Narrative* Haseeb Nice [...] to increase p.o. hydration. documented in this encounterTr[facility] History of Present illness Narrative* Yuliet Tejada [...] Have you been seen here at [facility] in a previous ? No Recent ER visits or hospitalizations? No Bring blood sugar log or meter with you today? (Please bring them with you for every visit at [facility]) N/A Traveled outside the country [...] Yes Not In System Ref Prov vit no.651-smzj-olart acid ( VITAMIN) 27 mg iron- 800 [...] continue with routine care in your office [facility], the CDC, and other organizations representing maternal and public health professionals recommend that , , and lactating people and those considering receive the COVID-19 vaccination. Vaccination is the best method to reduce maternal and complications of SARS-CoV-2 infection. This document was created with [employer] technology. Though I make every effort to review the dictation as it is transcribed, on occasion the spoken word can be misinterpreted by the technology leading to inappropriate words, phrases, or sentences. This note is addressed to the requesting provider as a consultation for clinical guidance. Specificmedical abbreviations are occasionally used and those are generally approved by the [place]?Board of?Obstetrics and?Gynecology?as well as?James s abbreviations. The above plan of care was based solely on the diagnoses for which a consultation was requested. ?More frequent testing may be indicated based on her other medical/obstetrical conditions. The management of other or medical conditions is beyond the scope of requested consultation and will c christianue to be followed by the primary invasive manager or primary care provider. Thank you for allowing me to participate in her care. Please contact me if you have any concerns. documented in this encounterTr[facility]06-[facility] NotePROCEDURE: XR SHOULDER RT 2V or > HISTORY: Impingement syndrome of right shoulder region ; acute right shoulder pain, no known injury COMPARISON: None. FINDINGS: BONES:No fracture, acute abnormality, or significant arthropathy. SOFT TISSUES:No visible soft tissue swelling. EFFUSION:None visible. OTHER: Negative. IMPRESSION: 1. Normal examination. Electronically authenticated by: GENI CABRAL Date: 2022-03-16 18:16[facility]* Diagnosis Second trimester state, incidental with normal glucose tolerance test (GTT) Diabetes mellitus screening Screening for diabetes mellitus History of miscarriage Personal history of other genital system and obstetric disorders History of oligohydramnios documented in this encounter [facility] HealthcareEvaluation note* Diagnosis High-risk in second trimester- Primary History of oligohydramnios in prior , currently with other poor obstetric history 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 20 weeks gestation of documented in this encounter [facility] SystemEvaluation note* Diagnosis History of oligohydramnios in prior , currently - Primary with other poor obstetric history documented in this encounter [facility]Evaluation [facility]* Diagnosis History of oligohydramnios in prior , currently - Primary with other poor obstetric history 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 History of delivery, currently with history of pre-term labor documented in this encounter [facility] SystemEvaluation note* Diagnosis Missed menses Positive urine test ([facility]) , unspecified gestational age ([facility]) Encounter for supervision of normal first in first trimester ([facility]) Nausea and vomiting in ([facility]) Unspecified vomiting of , unspecified as to episode of care documented in this encounter [facility]* Diagnosis 18 weeks gestation of ([facility]) Second trimester ([facility]) state, incidental Well woman exam with routine gynecological exam Routine gynecological examination Screening, , for anatomic survey ([facility]) Encounter for anatomic survey Exposure to STD Vaginal discharge Leukorrhea, not specified as infective Thyroid disease Unspecified disorder of thyroid documented in this encounter [facility]Evaluation [facility]* Diagnosis 22 weeks gestation of ([facility]) Second trimester ([facility]) state, incidental Thyroid disease Unspecified disorder of thyroid Diabetes mellitus screening Screening for diabetes mellitus documented in this encounter [facility]* Diagnosis Acquired autoimmune hypothyroidism- Primary Other specified acquired hypothyroidism Second trimester ([facility]) state, incidental 26 weeks gestation of ([facility]) Depression affecting ([facility]) documented in this encounter [facility]* Diagnosis size inconsistent with dates ([facility])- Primary Third trimester ([facility]) state, incidental 29 weeks gestation of ([facility]) History of miscarriage Personal history of other genital system and obstetric disorders History of oligohydramnios Thyroid disease Unspecified disorder of thyroid Acquired autoimmune hypothyroidism Other specified acquired hypothyroidism documented in this encounter [facility]* Diagnosis Third trimester ([facility]) state, incidental 31 weeks gestation of ([facility]) documented in this encounter [facility] HealthcareInstructionsNot on filedocumented in this encounterProMedihi Health SystemInstructionsNot on filedocumented in this encounterProMediBluffton Hospital SystemInstructionsNot on filedocumented in this encounterProMedica [facility] SystemInstructionsNot on filedocumented in this encounterSelect [facility] System InstructionsNot on filedocumented in this encounterSelect [facility] System Summary Purpose Family History No Family History Records FoundNo Family History Records FoundNo Family History Records FoundNo Family History Records Found Advance Directives No Advanced Directives Records FoundNo Advanced Directives Records FoundNo Advanced Directives Records FoundNo Advanced Directives Records Found Reason for Referral SpecialtyDiagnoses / ProceduresReferred By ContactReferred To ContactMaternal and Medicine Diagnoses History of oligohydramnios in prior , currently Procedures [facility] with or without consult Haseeb Nice MD [address], [address] [place] [address] [facility] Maternal Med [address] [place] [address] Referral IDStatusReasonStpoughkeepsie DateExpiration DateVisits RequestedVisits [id number] Review/[id number] / Procedures Referred By ContactReferred To [facility] Northwestrnal and Medicine Diagnoses History of oligohydramnios in prior , currently 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 History of delivery, currently Procedures [facility] with or without consult Haseeb Nice MD [address], [address] [place] [id number] [facility]aternal [facility] [address] [facility] [place] [address] Referral IDStatusReasonLaupahoehoe DateExpiration DateVisits RequestedVisits [id number] Review/ Additional Source Comments INFORMATION SOURCE (unrecogn ized section and content) DATE CREATED AUTHOR 01/31/2023 [facility] DATE CREATED AUTHOR AUTHOR'S ORGANIZ ATION 10/20/2023 [facility] DATE CREATED AUTHOR AUTHOR'S ORGANIZ ATION 11/24/2023 [facility] DATE CREATED AUTHOR AUTHOR'S ORGANIZ ATION 08/26/2025 [facility] EPIC Reason for Visit (unrecogniz ed section and content) ReasonCommentsRoutine VisitReasonCommentsHx OligoHx Multiple MiscarriagesHypothyroidismReasonCommentsAmenorrheaReasonCommentsRoutine VisitWell Women VisitSTI Screening Care Teams (unrecognized sec tion and content) Team MemberRelationshipSpecialtyStart DateEnd Date Marco Bales, DO [address], [facility] PCP [facility]01/13/24Team MemberRelationshipSpecialtyStart DateEnd Date Marco Bales, DO [address], [place] [address] [facility]01/13/24Team MemberRelationshipSpecialtyStart DateEnd Date Marco Bales, DO [address], [place] [address] [facility]01/13/24Team MemberRelationshipSpecialtyStart DateEnd Date Marco Bales, DO [address], [place] [address] PCP [facility]01/13/24Team MemberRelationshipSpecialtyStart DateEnd Date Marco Bales, DO [address], [place] [address] [address]11/06Team MemberRelationshipSpecialtyStart DateEnd Date Marco Bales, DO [address], [facility]11 [place] [address]Te MemberRelationshipSpecialtyStart DateEnd Date Marco Bales, DO [address] [place] [address] [place] [address]Te MemberRelationshipSpecialtyStart DateEnd Date Marco Bales, DO [address] [place], [facility]11 [address]11/06Te MemberRelationshipSpecialtyStart DateEnd Date Marco Bales, DO [address] [place], [facility]11 [place] [address]Te MemberRelationshipSpecialtyStart DateEnd Date Marco Bales, DO [address] [place], [place] [address], [facility]11 [place] [address]Te MemberRelationshipSpecialtyStart DateEnd Date Marco Bales, DO [address] [place], [facility]11 [address]11/06Te MemberRelationshipSpecialtyStart DateEnd Date Marco Bales, DO [address] [place], [facility]11 [address]11/06Te MemberRelationshipSpecialtyStart DateEnd Date Marco Bales, DO [address] [place] [address] PCP [place] [address]Team MemberRelationshipSpecialtyStart DateEnd Date Marco Bales, DO [address] [place] [id number] PCP [place] [address]Team MemberRelationshipSpecialtyStart DateEnd Date Marco Bales, DO [address] [place] [address] [facility]01/13/24 FOR RECORDS PERTAINING TO PATIENTS WHO [...] RECORDS. [facility] [employer] [facility]. provides no warranty or guarantee of the accuracy or completeness of information in this document.
[2025-09-20 16:21] VITALS: BP 127/69; PULSE 110
[2025-09-20] MEDS: BETAMETHASONE ACE/BETAMETHASONE SOD PHOS 30 MG/5 ML 12 MG IM (17:48)
== END 2025-09-20 18:00 | disposition home or self-care (01) ==
PROVIDERS: Admitting Provider Obstetrics & Gynecology; Visit Provider Obstetrics & Gynecology
DX: O36.8130 Decreased fetal movements, third trimester, not applicable or unspecified (principal); Z3A.35 35 weeks gestation of pregnancy
CPT/HCPCS: 76818; 96372; G0378; G0379; J0702

== ENCOUNTER 2025-09-21 17:04 | Outpatient (OUT) | payer OTHER, SELFPAY ==
--- OUTSIDE RECORDS SUMMARY | 2025-09-21 17:10 | XMS_ITS | CCD ---
Author Organization [facility] CliniSyky Care Team Providers Care Survey Statistician Name Role Phone RUSSELL, DR DEBBIE Mohan [...] tablet (8 sources)Serotonin Reuptake InhibitorStart: 07-21-2025 End: 46-25-0218zuqo 1 tablet by mouth once dailycitalopram (CeleXA) 20 MG tablet Indications: Depression affecting (HCC) Take 1 tablet (20 mg) by mouth Daily 30 tablet 5 07/21/2025 01/17/2026 Activelevothyroxine sodium 0.1 mg oral tablet (20 sources)l-ThyroxineStart: 44-00-1855jmot 1 tablet by mouth once daily levothyroxine (Synthroid, Levoxyl) 100 MCG tablet Indications: Thyroid disease TAKE 1 TABLET (100 MCG) BY MOUTH 1 (ONE) TIME EACH DAY AT THE SAME TIME 30 tablet 5 04/15/2025 ActiveStart: 10-08-2023 End: 07-60-4570pbdh 1 tablet by mouth once dailylevothyroxine (Synthroid, Levoxyl) 100 MCG tablet Indications: Thyroid disease Take 1 tablet (100 mcg) by mouth 1 (one) time each day at the same time 30 tablet 5 10/08/2023 09/24/2024 Discontinuednorethindrone 0.35 mg oral tablet (1 source)Start: 04-22-2024 End: 91-39-7143bdeo 1 tablet by mouth once dailynorethindrone (Micronor) 0.35 MG tablet Indications: Uses control Take 1 tablet (0.35 mg) by mouth Daily 28 tablet 11 04/22/2024 05/14/2025 Discontinued (Other)omeprazole 20 mg delayed release oral capsule (6 sources)Proton Pump InhibitorStart: 01-27-2024 End: 29-35-6200srzs 2 capsules by mouth before mealtimeomeprazole (PriLOSEC) [address] capsule Indications: Heartburn TAKE 2 CAPSULES (40 MG) BY MOUTH IN THE MORNING. TAKE BEFORE MEALS. DO NOT CRUSH OR CHEW.. 180 capsule 3 04/24/2024 05/14/2025 Discontinued (Other)Start: 10-08-2023 End: 05-09-5678cdsb 1 capsule by mouth before mealtimeomeprazole (PriLOSEC) [address] capsule Indications: Heartburn Take 1 capsule (20 mg) by mouth in the morning. Take before meals. Do not crush or chew.. 30 capsule 11 10/08/2023 01/27/2024 Discontinued (Reorder)ondansetron 4 mg disintegrating oral tablet (17 sources)Serotonin-3 Receptor AntagonistStart: 05-14-2025 End: 20-37-6697wipw 1 tablet by mouth every six hours for nauseaondansetron ODT (Zofran-ODT) 4 MG disintegrating tablet Indications: Nausea and vomiting in ([facility]) Take 1 tablet (4 mg) by mouth every 6 (six) hours if needed for nausea or vomiting 30 tablet 2 05/14/2025 06/13/2025 Active End: 52-80-4640xwje 1 tablet by mouth every six hours as neededondansetron ODT (Zofran-ODT) 4 MG disintegrating tablet Take 4 mg by mouth every 6 (six) hours if needed 04/02/2024 Discontinuedprenatal vit no.995-uqpu-ptoia acid ( VITAMIN) 27 mg iron- 800 mcg tablet (7 sources)take 1 tablet by mouth in the morningprenatal vit no.153-vedy-frupw acid ( VITAMIN) 27 mg iron- 800 mcg tablet Take 1 tablet by mouth in the morning. 0 ActivePrenatal Vit-Fe Fumarate-FA (M-Sindi Plus) 27-1 MG tablet (19 sources)Start: 93-78-2026sbge 1 tablet by mouth once daily in [...] Class(es)DatesSig (Normalized)Sig (Original)ferrous sulfate (3 sources) End: 19-88-9483agan 1 tablet by mouth in the morningFerrous Sulfate (IRON PO) Take 1 tablet by mouth in the morning. 04/02/2024 Discontinuedmetoclopramide 10 mg oral tablet (1 source)Dopamine-2 Receptor AntagonistStart: 01-28-2024 End: 29-28-4846csce 1 tablet by mouth in the morning, then take 1 tablet by mouth in the evening, then take 1 tablet by mouth at bedtimemetoclopramide (Reglan) 10 MG tablet Indications: Heartburn during in third trimester ([facility]) Take 1 tablet (10 mg) by mouth in the morning and 1 tablet (10 mg) in the evening and 1 tablet (10 mg) before bedtime. 90 tablet 2 01/28/2024 04/02/2024 DiscontinuedPrenatal Vit-Fe Fumarate-FA ( Plus/Iron) 27-1 MG tablet (5 sources)Start: 10-08-2023 End: 19-91-7468wmpw 1 tablet by mouth in the morningPrenatal Vit-Fe Fumarate-FA ( Plus/Iron) 27-1 MG tablet Indications: Missed menses Take 1 tablet by mouth in the morning. 30 tablet 11 10/08/2023 08/27/2024 DiscontinuedStart: 10-08-2023 End: 74-40-8888nfbe 1 tablet by mouth in the morningPrenatal Vit-Fe Fumarate-FA ( Plus/Iron) 27-1 MG tablet Indications: Missed menses Take 1 tablet by mouth in the morning. 30 tablet 11 10/08/2023 10/07/2024 Active Problems Active Problems Problem ClassificationProblemDateDocumented DateEpisodic/ChronicAnxiety disorders (20 sources)Generalized anxiety disorder; Translations: [Generalized anxiety disorder]Onset: 002525-18-7327BnkotflYloywwind hypertension (1 source)Essential (primary) hypertension; Translations: [ESSENTIAL PRIMARY HYPERTENSION]Onset: 87-97-4415YtibnvnNwbkgycgxr during ; abruptio placenta; placenta previa (7 sources)Threatened ; Translations: [Hemorrhage in early , unspecified]Onset: 26-76-3140SyrejaicWhbpabeljlikg and screening for infectious disease (3 sources)Encounter for immunization; Translations: [Exposure to sexually transmissible disorder]Onset: 377925-96-6238RqqvjosqCrufrzzqsv disorders (1 source)Hormone replacement therapy; Translations: [HORMONE REPLACEMENT THERAPY]Onset: 24-05-7226FuvbzwknAkvuvgbpm disorders (5 sources)Irregular menstruation, unspecified; Translations: [Missed period] Onset: 22-83-8069DgicfgnBknay aftercare (1 source)Other snf (current) drug therapy; Translations: [OTH INSTALLMENT AGENT CURRENT DRUG THERAPY]Onset: 11-16-2430TjctqptfWzzrv complications of ; puerperium affecting management of mother (1 source)Endocrine, nutritional and metabolic diseases complicating childbirth; Translations: [ENDOCRN NUTR MET DZ COMP CHILDBIRTH]Onset: 92-18-3590Olvqggpr Other complications of (1 source)Endocrine, nutritional and metabolic diseases complicating , first trimester; Translations: [ENDOCRN NUTR MET DZ COMP PG 1ST TRI]Onset: 51-61-7521EhcagtquStmkj complications of (1 source)Smoking (tobacco) complicating , first trimester; Translations: [SMOKING TOBACCO COMP BINW7KQ TRI]Onset: 87-70-0138DgixtahiYbilg complications of (1 source)Other viral diseases complicating , first trimester; Translations: [OTH VIRAL DZ COMP PREGFIRST TRI]Onset: 48-02-8350CjripbnzJsxil complications of (2 sources) care for patient with recurrent loss, unspecified trimester; Translations: [ care for patient with recurrent loss, unspecified trimester]Onset: 69-00-1950OcehtpxcNbrra complications of (1 source)Supervision of high risk , unspecified, second trimester; Translations: [Supervision of high risk , unspecified, second trimester]Onset: 58-09-0722EqvhxhfwAlkoi complications of (2 sources)Supervision of with other poor reproductive or obstetric history, unspecified trimester; Translations: [Supervision of with other poor reproductive or obstetric history, unspecified trimester]Onset: 37-48-2062GsuxyhqqSrgif complications of (2 sources)Endocrine, nutritional and metabolic diseases complicating , second trimester; Translations: [Endocrine, nutritional and metabolic diseases complicating , second trimester]Onset: 57-04-0001NvislesvAoask complications of (1 source)Supervision of other high risk pregnancies, unspecified trimester; Translations: [Supervision of other high risk pregnancies, unspecified trimester]Onset: 04-92-8997QmkpnezeDqkyq complications of (1 source)Vomiting of , unspecified; Translations: [Unspecified vomiting of , unspecified as to episode of care or not applicable] 13-33-3082GlbncjheQktkz complications of (2 sources)Depressive disorder in mother complicating ; Translations: [Other mental disorders complicating , unspecified trimester]07-21-2025 EpisodicOther complications of (2 sources) size does not accord with dates; Translations: [Uterine size- date discrepancy, unspecified trimester]64-58-8023WyragpajCxsez female genital disorders (2 sources)Vaginal discharge; Translations: [Other specified noninflammatory disorders of vagina]21-58-7006QcjxqhgbQymmv and delivery including normal (18 sources)Encounter for supervision of normal , unspecified, first trimester; Translations: [Second trimester ]Onset: EpisodicOther screening for suspected conditions (not mental disorders or infectious disease) (10 sources)Encounter for other specified screening; Translations: [Encounter for screeningfor cervical length]Onset: 10-16-2023 19-35-3367GhzforhsZgwcqhsf codes; unclassified (1 source)Less than 8 weeks gestation of ; Translations: [< 8 WEEKS GESTATION ]Onset: 90-75-6399QojwlqudPnerlzsx codes; unclassified (1 source)20 weeks gestation of ; Translations: [20 weeks gestation of ]Onset: 72-95-0718GrdzesgqGaxqhgwk codes; unclassified (4 sources)H/O: miscarriage; Translations: [Personal history of other complications of , childbirth and the puerperium]85-21-6274Qsybgtrg Residual codes; unclassified (2 sources)Gestation period, 18 weeks; Translations: [18 weeks gestation of ]32-96-5370AytdpxguZbzlvzpr codes; unclassified (2 sources)Gestation period, 22 weeks; Translations: [22 weeks gestation of ]66-97-1618UwlxqimoRltcqxbo codes; unclassified (2 sources)Gestation period, 26 weeks; Translations: [26 weeks gestation of ]32-79-1818NrrmucowPbfthfis codes; unclassified (2 sources)Gestation period, 29 weeks; Translations: [29 weeks gestation of ]11-00-6584KbmgwmudZtsgoytj codes; unclassified (2 sources)Gestation period, 31 weeks; Translations: [31 weeks gestation of ]74-10-7087FhzikldqTbbfvfeba-related disorders (1 source)Nicotine dependence, cigarettes, uncomplicated; Translations: [NICOTINE DEPEND CIGARETTES UNCOMP]Onset: 14-89-9332QdzybgzRwcbbau disorders (12 sources)Hypothyroidism, unspecified; Translations: [Hypothyroidism]Onset: 41-19-2673JgwedozJxsanelpwsqw (1 source)PERSONAL HISTORY OF COVID-19; Translations: [PERSONAL HISTORY OF COVID-19]Onset: 96-90-4262Dqaobusapoiq (2 sources)COUGH, UNSPECIFIED; Translations: [COUGH, UNSPECIFIED]Onset: 79-85-0317Vyljsnsdjrxg (1 source)Hx OligoOnset: 45-29-2182Tblsxhqxepii (20 sources)OB RemindersOnset: 289284-56-3559Sxwcq infection (1 source)COVID-19; Translations: [COVID-19]Onset: 01-09-2023 Past or Other Problems Problem ClassificationProblemDateDocumented DateEpisodic/ChronicE Codes: Fall (1 source)Unspecified fall, initial encounter; Translations: [UNSPECIFIED FALL INITIAL ENCOUNTER]Onset: 49-26-0316ZlapqnnwAgdsnmqzpjywibzu hemorrhage (20 sources)Rectal hemorrhage; Translations: [Hemorrhage of anus and rectum] Onset: 295057-70-7226VgwwifngOnfmivcbozkn; infection of eye (except that caused by tuberculosis or sexually transmitteddisease) (1 source)Unspecified conjunctivitis; Translations: [UNSPECIFIED CONJUNCTIVITIS] Onset: 29-64-7707UxvhjuxsLvhc wounds of head; neck; and trunk (4 sources)Laceration without foreign body of other part of head, initial encounter; Translations: [LAC W/O FBOTH PART HEAD INIT ENC]Onset: 10-20-2022 EpisodicOther complications of (1 source)High risk ; Translations: [Supervision of high risk , unspecified, second trimester]99-03-6844PvtwixwhNsgmj complications of (3 sources)H/O: ; Translations: [Supervision of with other poor reproductive or obstetric history, unspecified trimester]51-44-1346Ngthedpy Other complications of (2 sources)Hypothyroidism in ; Translations: [Endocrine, nutritional and metabolic diseases complicating , second trimester]10-16-2023 EpisodicOther complications of (1 source)H/O: premature delivery; Translations: [Supervision of other high risk pregnancies, unspecified trimester]05-72-3464WhbjjihlUydro connective tissue disease (1 source)Impingement syndrome of right shoulder; Translations: [IMPINGEMENT SYNDROME RIGHT SHOULDER]Onset: 95-42-0362HnebrffbOusju eye disorders (3 sources)Other specified disorders of eye and adnexa; Translations: [OTHER SPEC DISORDERS EYE AND ADNEXA]Onset: 13-75-5817OzjsazknIquybaie codes; unclassified (20 sources)H/O: Disorder; Translations: [Personal history of other complications of , childbirth and the puerperium]Onset: 12-16-2023 44-19-7462RlroxbtqXgknjjhu codes; unclassified (1 source)Gestation period, 20 weeks; Translations: [20 weeks gestation of ]82-62-8792RctzogdxFvmnokr disorders (20 sources)Disorder of thyroid gland; Translations: [Disorder of thyroid, unspecified]Onset: 561159-15-9855JlldhfvcIeyciixgbwat (1 source)COUGH, UNSPECIFIED; Translations: [COUGH, UNSPECIFIED]Onset: 01-08-2023 Results Test NameValueInterpretationReference RangeFacilityALL CBC WITH AUTO DIFFon 98-74-9079SVDXILCQI ABSOLUTE AUTO0.0NOMS HealthcareBasophils/100 WBC (Bld)0.2 % 0.2 - 2.0 %NOMResearch Belton HospitalEosinophils/100 WBC (Bld)0.5 %Low0.9 - 7.0 %[facility] HospitalErythrocyte distribution width (RBC) [Ratio]13.0 %11.0 - 15.0 %NOMResearch Belton HospitalHematocrit (Bld) [Volume fraction]29.4 %Low36.0 - 48.0 %[facility] HospitalHemoglobin (Bld) [Mass/Vol]10.1 g/dLLow12.0 - 16.0 g/dLI-70 [facility] IMMATURE GRANULOCYTES ABS AUTO0.04HighI-70 Community HospitalImmature granulocytes/100 WBC (Bld)0.4 %0.0 - 0.5 %[facility] HospitalInterpretation and review of laboratory resultsAbnormalNOAR HealthcareLYMPHOCYTES ABSOLUTE AUTO1.7N[facility] Lymphocytes/100 WBC (Bld)17.8 %Low20.5 - 60.0 %[facility] HealthH (RBC) [Entitic mass]32.9 pg26.7 - 34.0 pgNOExcelsior Springs Medical CenterHC (RBC) [Mass/Vol]34.4 g/dL29.9 - 35.2 g/dLCarondelet HealthV (RBC) [Entitic vol]95.8 fL81.0 - 99.0 fLI-70 Community HospitalMONOCYTES ABSOLUTE AUTO0.5NOAR HealthcareMonocytes/100 WBC (Bld)5.8 % 1.7 - 12.0 %[facility] HospitalNEUTROPHILS ABSOLUTE AUTO7.0HighNOSaint Luke's [facility] Hospital[facility] Neutrophils/100 WBC (Bld)75.3 %High43.0 - 75.0 %NOMS HealthcarePlatelet mean volume (Bld) [Entitic vol]10.8 fL9.5 - 13.5 fLNOMS HealthcareTBH EO #0.1NOMS HealthcareTBH [id number] HealthcareTBH RBC3.07LowNOMS HealthcareTBH WBC9.3NOMS HealthcareCLINISYNCNOMS HealthcareUS OB FOLLOW UP TRANSABDOMINAL APPROACHon 17-54-4121NU OB FOLLOW UP TRANSABDOMINAL APPROACHFINDINGS: Comparison June [...] Delivery: 10/23/25 Gestational Age as of 08/09/2025: 25u1fMcoohklbvm macro (dipstick) panel (U)on 97-09-7828Nmvfdzvwt, UANegativeNegative - 4(70) +++ mg/dLNOMS HealthcareBlood, UANegativeNegative [...] mg/dLNOMS HealthcareNOMS HealthcareUrinalysis macro (dipstick) panel (U)on 92-68-2050Ceycgqvdq, UA NegativeNegative - 4(70) +++ mg/dLNOMS HealthcareBlood, [...] 1.03[facility] Urobilinogen, UA0.20.2 - 12 mg/dLNOMS Genesis HospitalNOAR HealthcareUrinalysis macro (dipstick) panel (U)on 01-16-6691Kmqlmajzs, UANegativeNegative - 4(70) +++ mg/dL NOMS HealthcareBlood, UANegativeNegative - 50 Felice/mcLNOMS HealthcareClarity, UA ClearNOMS HealthcareColor, UAYellowNOMS HealthcareGlucose, UANegativeNegative - 1999(110) ++++ mg/dLNOMS HealthcareInterpretation and review of laboratory resultsNormalNOMS HealthcareKetones, UANegativeNegative - 160(16) ++++ mg/dLNOMS HealthcareLeukocytes, UANegativeNegative - 500+++ Regina/mcLNOAR HealthcareNitrite, UANegativeNegative - PositiveNOMS HealthcarepH, UA65 - 9NOMS HealthcareProtein, UANegativeNegative - 2000(20) ++++ mg/dLNOMS HealthcareSpec Grav, UA1.0151 - 1.03NOMS HealthcareUrobilinogen, UA0.20.2 - 12 mg/dLNOHawthorn [facility] HealthcareUrinalysis macro (dipstick) panel (U)on 89-63-3546Fantrqxmy, UA NegativeNegative - 4(70) +++ mg/dLNOAR HealthcareBlood, UANegativeNegative - 50 Felice/mcLNOAR HealthcareClarity, UAClearNOAR HealthcareColor, UAYellowNOAR HealthcareGlucose, UANegativeNegative - 2000(110) ++++ mg/dLCEDAR CITY [facility]OSPITAL Healthcare Interpretation and review of laboratory resultsNormalNOAR HealthcareKetones, UA NegativeNegative - 160(16) ++++ mg/dLCEDAR CITY HOSPITAL HealthcareLeukocytes, UANegative Negative - 500+++ Regina/mcLCEDAR CITY HOSPITAL HealthcareNitrite, UANegativeNegative - Positive NOMS HealthcarepH, UA7.55 - 9NOMS HealthcareProtein, UANegativeNegative - 2000(20) ++++ mg/dLNOAR HealthcareSpec Grav, UA1.011 - 1.03NO[facility] Healthcare Urobilinogen, UA1.00.2 - 12 mg/dLNOSaint Luke's North Hospital–SmithvilleNOAR HealthcareALL CBC WITH AUTO DIFFon 54-11-2217SSUWXMSGG ABSOLUTE RWTI7CZZR HealthcareBasophils/100 WBC (Bld) 0.3 %0.2 - 2.0 %NOMS HealthcareEosinophils/100 WBC (Bld)0.3 %Low0.9 - 7.0 %[facility] HealthcareErythrocyte distribution width (RBC) [Ratio]13.2 %11.0 - 15.0 %NOMS HealthcareHematocrit (Bld) [Volume fraction]32.2 %Low36.0 - 48.0 %[facility] HospitalHemoglobin (Bld) [Mass/Vol]11 g/dLLow12.0 - 16.0 g/dLI[facility] IMMATURE GRANULOCYTES ABS AUTO0.02NOMS [facility] HospitalImmature granulocytes/100 WBC (Bld)0.3 %0.0 - 0.5 %[facility] HealthcareInterpretation and review of laboratory resultsAbnormalNOSaint Luke's North Hospital–SmithvilleLYMPHOCYTES ABSOLUTE AUTO1.3[facility] Lymphocytes/100 WBC (Bld)16.6 %Low20.5 - 60.0 %[facility] HealthH (RBC) [Entitic mass]32.9 pg26.7 - 34.0 pgCarondelet HealthHC (RBC) [Mass/Vol]34.2 g/dL29.9 - 35.2 g/dLCarondelet HealthV (RBC) [Entitic vol]96.4 fL81.0 - 99.0 fLI-70 Community HospitalMONOCYTES ABSOLUTE AUTO0.3NOAR HealthcareMonocytes/100 WBC (Bld)4.1 % 1.7 - 12.0 %[facility] HospitalNEUTROPHILS ABSOLUTE AUTO6.3[facility] Neutrophils/100 WBC (Bld)78.4 %High43.0 - 75.0 %[facility] HospitalPlatelet mean volume (Bld) [Entitic vol]10.4 fL9.5 - 13.5 fLNOMS HealthcareTBH EO #0NOMS HealthcareTBH ZEH059NdiJKNZ Genesis HospitalTB RBC3.34LowNOMS Genesis HospitalTB KBJ0TEUOSaint Luke's North Hospital–SmithvilleCLINISYNCNOMS HealthcareIGP,APTIMA HPV,AGE GDLNon 01-65-0805WZA GDLN ACOG TESTINGNote.[facility] HealthcareComment on above:TESTS RESULT FLAG UNITS REF RANGE LAB Clinician Provided Cytology Information Source.............[employer] Other.............. No. of containers..01 ThinPrep Vial Age Algo ACOG Nancy... 30-65 FLAG LEGEND: L-Low Normal,H-High Normal,LL-Alert Low,HH-Alert High <-Panic Low,>-Panic High,A-Abnormal,AA-Critical Abnormal Performed at: 01 =[address] [place] [address] Vikki Rivera MD, HPV APTIMANegativeNegativeNOMS HealthcareComment on above:This nucleic acid amplification test detects fourteen high- risk HPV types (16,18,31,33,35,39,45,51,52,56,58,59,66,68) without differentiation. Performed at: =[address] [id number] Lathe Set Up Operator: Vikki Rivera MD, Phone: [phone] Performed at: [address] [id number] Lathe Set Up Operator: Vikki Rivera MD, Phone: [phone] IGP, APTIMA HPV, RFX 16/18,45Note.NOMS HealthcareComment on above:TESTS RESULT FLAG UNITS REF RANGE LAB DIAGNOSIS: 02 NEGATIVE FOR INTRAEPITHELIAL LESION OR MALIGNANCY. Specimen adequacy: 02 Satisfactory for evaluation. Endocervical and/or squamous metaplastic cells (endocervical component) are present. Performed by: Jarocho Kirkpatrick, Armhole [employer] ([facility]) . 02 Note: Note 02 The [...] <-Panic Low,>-Panic High,A-Abnormal,AA-Critical Abnormal Performed at: [address] [address] Vikki Rivera MD, SPATULA-ALONE ENDOCERVIX CLINISYNCNOMS HealthcareRECURRENT VAGINITIS (HTRX)on 37-79-5552XCMLMYXFK VAGINAE 0NOMS HealthcareATOPOBIUM VAGINAENot detectedNOMS HealthcareBVAB 2,3 (BACTERIAL VAGINOSIS ASSOCIATED BACTERIA 2, 3); MOBILUNCUS CLL2HVTD HealthcareBVAB 2,3 (BACTERIAL VAGINOSIS ASSOCIATED BACTERIA 2, 3); MOBILUNCUS SPPNot detectedNOMS HealthcareCANDIDA ALBICANS, PARAPSILOSIS, [id number] HealthcareCANDIDA ALBICANS, PARAPSILOSIS, TROPICALISNot detectedNOMS HealthcareCANDIDA GLABRATA0 NOMS HealthcareCANDIDA GLABRATANot detectedNOMS HealthcareCANDIDA NDSKCA9QPZN HealthcareCANDIDA KRUSEINot detectedNOMS HealthcareCHLAMYDIA WUKGLNFTCFO4SVTR HealthcareCHLAMYDIA TRACHOMATISNot detectedNOMS HealthcareGARDNERELLA VAGINALIS0 NOMS HealthcareGARDNERELLA VAGINALISNot detectedNOMS HealthcareMEGASPHAERA (TYPES 1, 2)0NOMS HealthcareMEGASPHAERA (TYPES 1, 2)Not detectedNOMS Healthcare MYCOPLASMA AJOJCXFHCO6DAUN HealthcareMYCOPLASMA GENITALIUMNot detectedNOMS HealthcareNEISSERIA JCIRPPARLTQ1AEBF HealthcareNEISSERIA GONORRHOEAENot detected NOMS HealthcareTRICHOMONAS WZWDTIZYF1PPNL HealthcareTRICHOMONAS VAGINALISNot detectedNOMS HealthcareNOMS HealthcareUS OB 14+ [...] Delivery: 10/23/25 Gestational Age as of 05/25/2025: 60n3lYoqhsejkzp macro (dipstick) panel (U)on 36-48-6248Jgwnpvuzi, UANegativeNegative - 4(70) +++ mg/dLNOMS HealthcareBlood, UANegativeNegative - 50 Felice/mcLNOMS HealthcareClarity, UAClearNOMS Healthcare Color, UAYellowNOMS HealthcareGlucose, UANegativeNegative - 2000(110) ++++ mg/dL NOMS HealthcareInterpretation and review of laboratory resultsAbnormalNOMS HealthcareKetones, UANegativeNegative - 160(16) ++++ mg/dLNOAR Healthcare Leukocytes, UAPositiveNegative - 500+++ Regina/mcLNOAR HealthcareNitrite, UA NegativeNegative - PositiveNOMS HealthcarepH, UA8.55 - 9NOMS HealthcareProtein, UAPositiveNegative - 2000(20) ++++ mg/dLNOAR HealthcareSpec Grav, UA1.011 - 1.03 NOMS HealthcareUrobilinogen, UA1.00.2 - 12 mg/dLNOAsc[facility] HCG ( test) Ql (U)on 58-41-9531Nxhijsndfcaims and review of laboratory resultsAbBeaumont HospitalPreg Test, UrPositiveNegativeNOHawthorn [facility] HealthcareUS OB LIMITED 1+ FETUSESon 71-52-6935XU OB LIMITED 1+ FETUSESFINDINGS: No prior examinations. [...] No LMP recorded.Urinalysis macro (dipstick) panel (U)on 48-77-1881Einreuyvq, UA NegativeNegative - 4(70) +++ mg/dLNOAR HealthcareBlood, UANegativeNegative - 50 Felice/mcLNOAR HealthcareClarity, UAClearNOAR HealthcareColor, UAYellowNOAR HealthcareGlucose, UATraceNegative - 1999(110) ++++ mg/dLNOAR Healthcare Interpretation and review of laboratory resultsAbnormalNOMS HealthcareKetones, UANegativeNegative - 160(16) ++++ mg/dLNOMS HealthcareLeukocytes, UAPositive Negative - 500+++ Regina/mcLNOMS HealthcareNitrite, UANegativeNegative - Positive NOMS HealthcarepH, UA7.55 - 9NOMS HealthcareProtein, UATraceNegative - 2000(20) ++++ mg/dLNOMS HealthcareSpec Grav, UA1.011 - 1.03NOMS HealthcareUrobilinogen, UA1.00.2 - 12 mg/dLNOMS HealthcareNOMS HealthcareUS OB BPP W NON-STRESSon 05-64-[place], [place] [address] Ultrasound Report Signed Patient: ЕКАТЕРИНА SUTHERLAND MR#: [id number] : 1995 Acct:[id number] Age/Sex: 28 / F ADM Date: 02/10/24 Loc: US Attending Dr: Marco Bales D.O. Ordering Physician: Marco Bales D.O. Date of Service: 02/10/24 Procedure(s): US OB BPP w non-stress Accession Number(s): [id number] cc: Marco Bales D.O.; Physician,Non-Staff M.Nancy [address] [address] Patient Name: ЕКАТЕРИНА SUTHERLAND MRN: [id number] date: 1995 Sex: F Assigned Patient Location: US Current Patient Location: US Accession/Order Number: [id number] Exam Date: 02/10/2024 13:59 Report Date: 02/10/2024 [...] Signed By: 02/10/24 1457 DD/ 1455 TD/TT: Creative/Art Director:PARTHAadiologector, Radiologist, - 02/10/2024 [place] [address] Ultrasound Report Signed Patient: ЕКАТЕРИНА SUTHERLAND MR#: [id number] : 1995 Acct:[id number] Age/Sex: 28 / F ADM Date: 02/10/24 Loc: US Attending Dr: Marco Bales D.O. Ordering Physician: Maroc Bales D.O. Date of Service: 02/10/24 Procedure(s): US OB BPP w non-stress Accession Number(s): [id number] cc: Marco Bales D.O.; Physician,Non-Staff Lalit [facility] [place] [id number] Patient Name: ЕКАТЕРИНА SUTHERLAND MRN: [id number] date: 1995 Sex: F Assigned Patient Location: Current Patient Location: Accession/Order Number: [id number] Exam Date: 02/10/2024 13:59 Report Date: 02/10/2024 [...] Signed By: 02/10/24 1457 DD/ 145 TD/TT: Creative/Art Director: KEEGAN HealthcareRadiology Study observation (narrative)NOMS HealthcareUS OB BPP W NON-STRESSOrdered By: Radiologist Radiology on 03-20-8285QHUJ Healthcare Work Phone: US OB BPP W NON-STRESSon [id number], [place] [address] Ultrasound Report Signed Patient: ЕКАТЕРИНА SUTHERLAND MR#: [id number] : 1995 Acct:[id number] Age/Sex: 28 / F ADM Date: 02/03/24 Loc: US Attending Dr: Marco Bales D.O. Ordering Physician: Marco Bales D.O. Date of Service: 02/03/24 Procedure(s): US OB BPP w non-stress Accession Number(s): [id number] cc: Marco Bales D.O.; Physician,Non-Staff Lal[place] [facility] [place] [address] Patient Name: ЕКАТЕРИНА SUTHERLAND MRN: [id number] date: 1995 Sex: F Assigned Patient Location: US Current Patient Location: Accession/Order Number: [id number] Exam Date: 02/03/2024 14:20 Report Date: 02/04/2024 [...] M.D. Signed By: 02/04/24714 DD/ 1 TD/TT: Creative/Art Director:PARTHAadiolnicola Radiologist, - 02/04/2024 [place] [address] Ultrasound Report Signed Patient: ЕКАТЕРИНА SUTHERLAND MR#: [id number] : 1995 Acct:[id number] Age/Sex: 28 / F ADM Date: 02/03/24 Loc: US Attending Dr: Marco Bales D.O. Ordering Physician: Marco Bales D.O. Date of Service: 02/03/24 Procedure(s): US OB BPP w non-stress Accession Number(s): [id number] cc: Marco Bales D.O.; Physician,Non-Staff Lalit [address] [place] [phone] Patient Name: ЕКАТЕРИНА SUTHERLAND MRN: [facility]:[id number] date: 1995 Sex: F Assigned Patient Location: US Current Patient Location: Accession/Order Number: [id number] Exam Date: 02/03/2024 14:20 Report Date: 02/04/2024 [...] M.D. Signed By: 02/04/24714 DD/ 1 TD/TT: Creative/Art Director: KEEGAN HealthcareRadiology Study observation (narrative)NOMS HealthcareUS OB BPP W NON-STRESSOrdered By: Radiologist Radiology on 61-13-8530HVLH [facility] Work Phone: [place] OB GROWTHon [phone], [place] [address] Ultrasound Report Signed Patient: ЕКАТЕРИНА SUTHERLAND MR#: [id number] : 1995 Acct:[id number] Age/Sex: 28 / F ADM Date: 02/03/24 Loc: US Attending Dr: Marco Bales D.O. Ordering Physician: Marco Bales D.O. Date of Service: 02/03/24 Procedure(s): US OB growth Accession Number(s): [id number] cc: Marco Bales D.O.; Physician,Non-Staff Lalit [address] [place] [phone] Patient Name: ЕКАТЕРИНА SUTHERLAND MRN: [id number]:[id number] date: 1995 Sex: F Assigned Patient Location: [facility] Current Patient Location: US Accession/Order Number: [id number] Exam Date: 02/03/2024 14:20 Report Date: 02/04/2024 [...] Tsang M.D. Signed By: 02/04/2439 DD/ TD/TT: Creative/Art Director:GRAHAMHRadiology, Radiologist, MD - 02/04/2024 [place] [address] Ultrasound Report Signed Patient: ЕКАТЕРИНА SUTHERLAND MR#: [id number] : 1995 Acct:[id number] Age/Sex: 28 / F ADM Date: 02/03/24 Loc: US Attending Dr: Marco Bales D.O. Ordering Physician: Marco Bales D.O. Date of Service: 02/03/24 Procedure(s): US OB growth Accession Number(s): [id number] cc: Marco Bales D.O.; Physician,Non-Staff Lalit [address] [place] [address] Patient Name: ЕКАТЕРИНА SUTHERLAND MRN: [facility]:[id number] date: 1995 Sex: F Assigned Patient Location: [facility] Current Patient Location: US Accession/Order Number: [id number] Exam Date: 02/03/2024 14:20 Report Date: 02/04/2024 [...] Tsang M.D. Signed By: 02/04/2439 DD/ TD/TT: Creative/Art Director: KEEGAN HealthcareRadiology Study observation (narrative)NOM HealthcareUS OB GROWTHOrdered By: Radiologist Radiology on 70-85-3916TXEX [employer] Work Phone: US OB BPP W NON-STRESSon [phone], [place] [address] Ultrasound Report Signed Patient: ЕКАТЕРИНА SUTHERLAND MR#: [id number] : 1995 Acct:[id number] Age/Sex: 28 / F ADM Date: 01/27/24 Loc: US Attending Dr: Marco Bales D.O. Ordering Physician: Marco Bales D.O. Date of Service: 01/27/24 Procedure(s): US OB BPP w non-stress Accession Number(s): [id number] cc: Marco Bales D.O.; Physician,Non-Staff MRom The [address] [address] Patient Name: ЕКАТЕРИНА SUTHERLAND MRN: [id number]:[id number] date: 1995 Sex: F Assigned Patient Location: US Current Patient Location: US Accession/Order Number: [id number] Exam Date: 01/27/2024 14:45 Report Date: 01/27/2024 [...] Signed By: 01/27/24 1521 DD/ 1519 TD/TT: Creative/Art Director:GRAHAMHRadiology, Radiologist, - 01/27/2024 [place] [address] Ultrasound Report Signed Patient: ЕКАТЕРИНА SUTHERLAND MR#: [id number] : 1995 Acct:[id number] Age/Sex: 28 / F ADM Date: 01/27/24 Loc: US Attending Dr: Marco Bales D.O. Ordering Physician: Marco Bales D.O. Date of Service: 01/27/24 Procedure(s): US OB BPP w non-stress Accession Number(s): [id number] cc: Marco Bales D.O.; Physician,Non-Staff Lalit [address] [place] [phone] Patient Name: ЕКАТЕРИНА SUTHERLAND MRN: [facility]:[id number] date: 1995 Sex: F Assigned Patient Location: US Current Patient Location: US Accession/Order Number: [id number] Exam Date: 01/27/2024 14:45 Report Date: 01/27/2024 [...] Signed By: 01/27/24 1521 DD/ 1519 TD/TT: Creative/Art Director: KEEGAN HealthcareRadiology Study observation (narrative)NOMS HealthcareUS OB BPP W NON-STRESSOrdered By: Radiologist Radiology on 05-62-7782XMXK [employer] Work Phone: US OB BPP W NON-STRESSon [phone], [place] [address] Ultrasound Report Signed Patient: ЕКАТЕРИНА SUTHERLAND MR#: [id number] : 1995 Acct:[id number] Age/Sex: 28 / F ADM Date: 01/20/24 Loc: US Attending Dr: Marco Bales D.O. Ordering Physician: Marco Bales D.O. Date of Service: 01/20/24 Procedure(s): US OB BPP w non-stress Accession Number(s): [id number] cc: Marco Bales D.O.; Physician,Non-Staff M.Nancy The [address] [address] Patient Name: ЕКАТЕРИНА SUTHERLAND MRN: [id number]:[id number] date: 1995 Sex: F Assigned Patient Location: [facility] Current Patient Location: Accession/Order Number: [id number] Exam Date: 01/20/2024 19:12 Report Date: 01/21/2024 [...] M.D. Signed By: 01/21/24715 DD/ 2 TD/TT: Creative/Art Director:GRAHAMHRadiology, Radiologist, MD - 01/21/2024 [place] [address] Ultrasound Report Signed Patient: ЕКАТЕРИНА SUTHERLAND MR#: [id number] : 1995 Acct:[id number] Age/Sex: 28 / F ADM Date: 01/20/24 Loc: US Attending Dr: Marco Bales D.O. Ordering Physician: Marco Bales D.O. Date of Service: 01/20/24 Procedure(s): US OB BPP w non-stress Accession Number(s): [id number] cc: Marco Bales D.O.; Physician,Non-Staff Lalit [facility] [place] [phone] Patient Name: ЕКАТЕРИНА SUTHERLAND MRN: [id number]:[id number] date: 1995 Sex: F Assigned Patient Location: [facility] Current Patient Location: Accession/Order Number: [id number] Exam Date: 01/20/2024 19:12 Report Date: 01/21/2024 [...] M.D. Signed By: 01/21/24715 DD/ 2 TD/TT: Creative/Art Director: NOMJovany HealthcareRadiology Study observation (narrative)NOM HealthcareUS OB BPP W NON-STRESSOrdered By: Radiologist Radiology on 67-22-4657[facility] Work Phone: US OB BPP W NON-STRESSon [phone], [place] [address] Ultrasound Report Signed Patient: ЕКАТЕРИНА SUTHERLAND MR#: [id number] : 1995 Acct:[id number] Age/Sex: 28 / F ADM Date: 01/13/24 Loc: [facility] 250-[address]: Marco Bales D.O. Ordering Physician: Marco Bales D.O. Date of Service: 01/13/24 Procedure(s): US OB BPP w non-stress Accession Number(s): [id number] cc: Marco Bales D.O.; Physician,Non-Staff MRom The [address] [address] Patient Name: ЕКАТЕРИНА SUTHERLAND MRN: [id number] date: 1995 Sex: F Assigned Patient Location: [facility] Current Patient Location: [facility] Accession/Order Number: [id number] Exam Date: 01/13/2024 14:07 Report Date: 01/13/2024 [...] Signed By: 01/13/24 1455 DD/ 1452 TD/TT: Creative/Art Director:GRAHAMHRadiology, Radiologist, MD - 01/16/2024 [place] [address] Ultrasound Report Signed Patient: ЕКАТЕРИНА SUTHERLAND MR#: [id number] : 1995 Acct:[id number] Age/Sex: 28 / F ADM Date: 01/13/24 Loc: [facility] 250-[address]: Marco Bales D.O. Ordering Physician: Marco Bales D.O. Date of Service: 01/13/24 Procedure(s): US OB BPP w non-stress Accession Number(s): [id number] cc: Marco Bales D.O.; Physician,Non-Staff Lalit [facility] [place] [phone] Patient Name: ЕКАТЕРИНА SUTHERLAND MRN: [id number]:[id number] date: 1995 Sex: F Assigned Patient Location: [facility] Current Patient Location: [facility] Accession/Order Number: [id number] Exam Date: 01/13/2024 14:07 Report Date: 01/13/2024 [...] Signed By: 01/13/24 1455 DD/ 1452 TD/TT: Creative/Art Director: KEEGAN HealthcareRadiology Study observation (narrative)NOMS HealthcareUS OB BPP W NON-STRESSOrdered By: Radiologist Radiology on 69-20-2314VZQ[facility] Work Phone: aLL CBC WITH AUTO DIFFon 57-44-1163HVCVOPAXG ABSOLUTE AUTO0.0NOMS HealthcareBasophils/100 WBC (Bld)0.1 %Low0.2 - 2.0 %[facility] Eosinophils/100 WBC (Bld)0.3 %Low0.9 - 7.0 %NOMS HealthcareErythrocyte distribution width (RBC) [Ratio]13.2 %11.0 - 15.0 %NOMS HealthcareHematocrit (Bld) [Volume fraction]31.2 %Low36.0 - 48.0 %NOMS HealthcareHemoglobin (Bld) [Mass/Vol]10.1 g/dLLow12.0 - 16.0 g/dLNOAR HealthcareIMMATURE GRANULOCYTES ABS AUTO0.04HighNOMS HealthcareImmature granulocytes/100 WBC (Bld)0.6 %High0.0 - 0.5 %NOMS HealthcareInterpretation and review of laboratory resultsAbnormalNOAR HealthcareLYMPHOCYTES ABSOLUTE AUTO1.0LowNOMS HealthcareLymphocytes/100 WBC (Bld)13.6 %Low20.5 - 60.0 %[facility]H (RBC) [Entitic mass]31.3 pg26.7 - 34.0 pgNOExcelsior Springs Medical CenterHC (RBC) [Mass/Vol]32.4 g/dL29.9 - 35.2 g/dLI-70 Community HospitalMCV (RBC) [Entitic vol]96.6 fL81.0 - 99.0 fLNOAR HealthcareMONOCYTES ABSOLUTE AUTO0.4NOMS HealthcareMonocytes/100 WBC (Bld)5.2 %1.7 - 12.0 %[facility] HealthcareNEUTROPHILS ABSOLUTE AUTO5.8NOMS HealthcareNeutrophils/100 WBC (Bld) 80.2 %High43.0 - 75.0 %[facility] HealthcarePlatelet mean volume (Bld) [Entitic vol] 11.1 fL9.5 - 13.5 fLCEDAR CITY HOSPITAL HealthcareTBH EO #0.0NOMS HealthcareTB PEM337SeeONXR HealthcareTB RBC3.23LowNOAR HealthcareTBH WBC7.3NOAR HealthcareCLINISYNCNOMS HealthcareGLUCOSE 1 HOURon 93-66-5310Djnrftz [Mass/Vol]163 mg/dLHighNINF - 130 mg/dLCEDAR CITY HOSPITAL HealthcareInterpretation and review of laboratory resultsAbnormalI-70 Community HospitalCLINISYNCNOMS HealthcareNo Panel Informationon 15-57-0097Ztflarubg Study observation (narrative)[facility] OB BPP W NON-STRESSon 17-11-[place]70[place], [place] [address] Ultrasound Report Signed Patient: ЕКАТЕРИНА SUTHERLAND MR#: [id number] : 1995 Acct:[id number] Age/Sex: 28 / F ADM Date: 01/06/24 Loc: US Attending Dr: Marco Bales D.O. Ordering Physician: Marco Bales D.O. Date of Service: 01/06/24 Procedure(s): US OB BPP w non-stress Accession Number(s): [id number] cc: Marco Bales D.O.; Physician,Non-Staff Lalit The [address] [address] Patient Name: ЕКАТЕРИНА SUTHERLAND MRN: [id number] date: 1995 Sex: F Assigned Patient Location: US Current Patient Location: US Accession/Order Number: [id number] Exam Date: 01/06/2024 14:30 Report Date: 01/07/2024 [...] M.D. Signed By: 01/07/24708 DD/ 5 TD/TT: Creative/Art Director:GRAHAMHRadiology, Radiologist, - 01/07/2024 [place] [address] Ultrasound Report Signed Patient: ЕКАТЕРИНА SUTHERLAND MR#: [id number] : 1995 Acct:[id number] Age/Sex: 28 / F ADM Date: 01/06/24 Loc: US Attending Dr: Marco Bales D.O. Ordering Physician: Marco Bales D.O. Date of Service: 01/06/24 Procedure(s): US OB BPP w non-stress Accession Number(s): [id number] cc: Marco Bales D.O.; Physician,Non-Staff Lalit The [address] [id number] Patient Name: ЕКАТЕРИНА SUTHERLAND MRN: [id number] date: 1995 Sex: F Assigned Patient Location: US Current Patient Location: US Accession/Order Number: [id number] Exam Date: 01/06/2024 14:30 Report Date: 01/07/2024 [...] Signed By: 01/07/24 0709 DD/ 5 TD/TT: Creative/Art Director: KEEGAN Barakat OB BPP W NON-STRESSOrdered By: Radiologist Radiology on 64-69-7242QQRB [employer] Work Phone: [place] OB GROWTHon [phone], [place] [address] Ultrasound Report Signed Patient: ЕКАТЕРИНА SUTHERLAND MR#: [id number] : 1995 Acct:[id number] Age/Sex: 28 / F ADM Date: 01/06/24 Loc: US Attending Dr: Marco Bales D.O. Ordering Physician: Marco Bales D.O. Date of Service: 01/06/24 Procedure(s): US OB growth Accession Number(s): [id number] cc: Marco Bales D.O.; Physician,Non-Staff MRom The [address] [address] Patient Name: ЕКАТЕРИНА SUTHERLAND MRN: [facility]:[id number] date: 1995 Sex: F Assigned Patient Location: US Current Patient Location: US Accession/Order Number: [id number] Exam Date: 01/06/2024 14:30 Report Date: 01/07/2024 [...] Signed By: 01/07/24 0708 DD/ 0706 TD/TT: Creative/Art Director:PARTHAadiology, Radiologist, - 01/07/2024 [place] [address] Ultrasound Report Signed Patient: ЕКАТЕРИНА SUTEHRLAND MR#: [id number] : 1995 Acct:[id number] Age/Sex: 28 / F ADM Date: 01/06/24 Loc: US Attending Dr: Marco Bales D.O. Ordering Physician: Marco Bales D.O. Date of Service: 01/06/24 Procedure(s): US OB growth Accession Number(s): [id number] cc: Marco Bales D.O.; Physician,Non-Staff Lalit [place] [id number] Patient Name: ЕКАТЕРИНА SUTHERLAND MRN: [facility]:[id number] date: 1995 Sex: F Assigned Patient Location: US Current Patient Location: US Accession/Order Number: [id number] Exam Date: 01/06/2024 14:30 Report Date: 01/07/2024 [...] M.D. Signed By: 01/07/2408 DD/ 5 TD/TT: Creative/Art Director: KEEGAN Barakat OB GROWTHOrdered By: Radiologist Radiology on 52-40-4023QWBC [employer] Work Phone: [place] OB BPP W NON-STRESSon [phone] [phone] Ultrasound Report Signed Patient: ЕКАТЕРИНА SUTHERLAND MR#: [id number] : 1995 Acct:[id number] Age/Sex: 28 / F ADM Date: 12/30/23 Loc: [facility] 250-[address]: Marco Bales D.O. Ordering Physician: Marco Bales D.O. Date of Service: 12/30/23 Procedure(s): US OB BPP w non-stress Accession Number(s): [id number] cc: Marco Bales D.O.; Physician,Non-Staff Lalit The [address] [address] Patient Name: ЕКАТЕРИНА SUTHERLAND MRN: [id number] date: 1995 Sex: F Assigned Patient Location: [facility] Current Patient Location: [facility] Accession/Order Number: [id number] Exam Date: 12/30/2023 14:07 Report Date: 12/30/2023 [...] Signed By: 12/30/23 1443 DD/ 39 TD/TT: Creative/Art Director:GRAHAMHRadiology, Radiologist, - 12/30/[address] [address] Ultrasound Report Signed Patient: ЕКАТЕРИНА SUTHERLAND MR#: [id number] : 1995 Acct:[id number] Age/Sex: 28 / F ADM Date: 12/30/23 Loc: [facility] 250-[address]: Marco Bales D.O. Ordering Physician: Marco Bales D.O. Date of Service: 12/30/23 Procedure(s): US OB BPP w non-stress Accession Number(s): [id number] cc: Marco Bales D.O.; Physician,Non-Staff Lalit [address] [address] Patient Name: ЕКАТЕРИНА SUTHERLAND MRN: [id number]:[id number] date: 1995 Sex: F Assigned Patient Location: [facility] Current Patient Location: [facility] Accession/Order Number: [id number] Exam Date: 12/30/2023 14:07 Report Date: 12/30/2023 [...] Signed By: 12/30/23 144 DD/ 39 TD/TT: Creative/Art Director: KEEGAN HealthcareRadiology Study observation (narrative)KEEGAN HealthcareUS OB BPP W NON-STRESSOrdered By: Radiologist Radiology on 01-50-2828RIKQ [facility] Work Phone: [place] OB BPP W NON-STRESSon 65-01-7532[place], [place] [address] Ultrasound Report Signed Patient: ЕКАТЕРИНА SUTHERLAND MR#: [id number] : 1995 Acct:[id number] Age/Sex: 28 / F ADM Date: 12/23/23 Loc: [facility] 250-[address]: Marco Bales D.O. Ordering Physician: Marco Bales D.O. Date of Service: 12/23/23 Procedure(s): US OB BPP w non-stress Accession Number(s): [id number] cc: Marco Bales D.O.; Physician,Non-Staff Lalit [facility] [place] [address] Patient Name: ЕКАТЕРИНА SUTHERLAND MRN: [id number] date: 1995 Sex: F Assigned Patient Location: [facility] Current Patient Location: [facility] Accession/Order Number: [id number] Exam Date: 12/23/2023 14:15 Report Date: 12/23/2023 [...] By: Alfa Tsang M.D. Signed By: 12/23/23 150 DD/ 0279 TD/TT: Creative/Art Director:PARTHAadiologector, Radiologist, - 12/23/2023 [place] [address] Ultrasound Report Signed Patient: ЕКАТЕРИНА SUTHERLAND MR#: [id number] : 1995 Acct:[id number] Age/Sex: 28 / F ADM Date: 12/23/23 Loc: [facility] 250-[address]: Marco Bales D.O. Ordering Physician: Marco Bales D.O. Date of Service: 12/23/23 Procedure(s): US OB BPP w non-stress Accession Number(s): [id number] cc: Marco Bales D.O.; Physician,Non-Staff Lalit [facility] [address] [place] [address] Patient Name: ЕКАТЕРИНА SUTHERLAND MRN: [id number] date: 1995 Sex: F Assigned Patient Location: [facility] Current Patient Location: [facility] Accession/Order Number: [id number] Exam Date: 12/23/2023 14:15 Report Date: 12/23/2023 [...] By: Alfa Tsang M.D. Signed By: 12/23/23 1500 DD/ 1458 TD/TT: Creative/Art Director: KEEGAN HealthcareRadiology Study observation (narrative)KEEGAN HernandezUS OB BPP W NON-STRESSOrdered By: Radiologist Radiology on 21-47-9164[facility] Work Phone: US OB BPP W NON-STRESSon 89-22-5332Zff[place], [place] [address] Ultrasound Report Signed Patient: ЕКАТЕРИНА SUTHERLAND MR#: [id number] : 1995 Acct:[id number] Age/Sex: 28 / F ADM Date: 12/16/23 Loc: [facility] 250-[address]: Marco Bales D.O. Ordering Physician: Marco Bales D.O. Date of Service: 12/16/23 Procedure(s): US OB BPP w non-stress Accession Number(s): [id number] cc: Marco Bales D.O.; Physician,Non-Staff Lalit [facility] [place] [address] Patient Name: ЕКАТЕРИНА SUTHERLAND MRN: [id number] date: 1995 Sex: F Assigned Patient Location: [facility] Current Patient Location: [facility] Accession/Order Number: [id number] Exam Date: 12/16/2023 14:05 Report Date: 12/16/2023 [...] Signed By: 12/16/23 143 DD/ 29 TD/TT: Creative/Art Director:TBHRadiology, Radiologist, - 12/18/[address] [address] Ultrasound Report Signed Patient: ЕКАТЕРИНА SUTHERLAND MR#: [id number] : 1995 Acct:[id number] Age/Sex: 28 / F ADM Date: 12/16/23 Loc: [facility] 250-[address]: Marco Bales D.O. Ordering Physician: Marco Bales D.O. Date of Service: 12/16/23 Procedure(s): US OB BPP w non-stress Accession Number(s): [id number] cc: Marco Bales D.O.; Physician,Non-Staff Lalit [facility] [place] [address] Patient Name: ЕКАТЕРИНА SUTHERLAND MRN: [id number] date: 1995 Sex: F Assigned Patient Location: [facility] Current Patient Location: [facility] Accession/Order Number: [id number] Exam Date: 12/16/2023 14:05 Report Date: 12/16/2023 [...] M.D. Signed By: 12/16/231431 DD/ 29 TD/TT: Creative/Art Director: KEEGAN HealthcareRadiology Study observation (narrative)NOMS HealthcareUS OB BPP W NON-STRESSOrdered By: Radiologist Radiology on 06-29-2077JKRK [facility] Work Phone: [place] OB BPP W NON-STRESSon [phone], [place] [address] Ultrasound Report Signed Patient: ЕКАТЕРИНА SUTHERLAND MR#: [id number] : 1995 Acct:[id number] Age/Sex: 28 / F ADM Date: 12/09/23 Loc: [facility] 250-[address]: Marco Bales D.O. Ordering Physician: Marco Bales D.O. Date of Service: 12/09/23 Procedure(s): US OB BPP w non-stress Accession Number(s): [id number] cc: Marco Bales D.O.; Physician,Non-Staff Lalit The [address] [address] Patient Name: ЕКАТЕРИНА SUTHERLAND MRN: [facility]:[id number] date: 1995 Sex: F Assigned Patient Location: [facility] Current Patient Location: [facility] Accession/Order Number: [id number] Exam Date: 12/09/2023 14:32 Report Date: 12/09/2023 [...] Signed By: 12/09/23 1521 DD/ 1519 TD/TT: Creative/Art Director:GRAHAMHRadiology, Radiologist, - 12/09/2023 The [place] [id number] Ultrasound Report Signed Patient: ЕКАТЕРИНА SUTHERLAND MR#: [id number] : 1995 Acct:[id number] Age/Sex: 28 / F ADM Date: 12/09/23 Loc: [facility] 250-[address]: Marco Bales D.O. Ordering Physician: Marco Bales D.O. Date of Service: 12/09/23 Procedure(s): US OB BPP w non-stress Accession Number(s): [id number] cc: Marco Bales D.O.; Physician,Non-Staff Lalit The [place] [address] Patient Name: ЕКАТЕРИНА SUTHERLAND MRN: [id number] date: 1995 Sex: F Assigned Patient Location: [facility] Current Patient Location: [facility] Accession/Order Number: [id number] Exam Date: 12/09/2023 14:32 Report Date: 12/09/2023 [...] Signed By: 12/09/23 1521 DD/ 1519 TD/TT: Creative/Art Director: KEEGAN HealthcareRadiology Study observation (narrative)NOMS HealthcareUS OB BPP W NON-STRESSOrdered By: Radiologist Radiology on 13-56-1276GCRP [facility] Work Phone: US OB GROWTHon [phone] [address] Ultrasound Report Signed Patient: ЕКАТЕРИНА SUTHERLAND MR#: [id number] : 1995 Acct:[id number] Age/Sex: 28 / F ADM Date: 12/09/23 Loc: [facility] 250-[address]: Marco Bales D.O. Ordering Physician: Marco Bales D.O. Date of Service: 12/09/23 Procedure(s): US OB growth Accession Number(s): [id number] cc: Marco Bales D.O.; Physician,Non-Staff Lalit [address] [address] Patient Name: ЕКАТЕРИНА SUTHERLAND MRN: [facility]:[id number] date: 1995 Sex: F Assigned Patient Location: [facility] Current Patient Location: [facility] Accession/Order Number: [id number] Exam Date: 12/09/2023 14:32 Report Date: 12/09/2023 [...] Signed By: 12/09/23 152 DD/ 152 TD/TT: Creative/Art Director:TBHRadiology, Radiologist, MD - 12/09/2023 [place] [address] Ultrasound Report Signed Patient: ЕКАТЕРИНА SUTHERLAND MR#: [id number] : 1995 Acct:[id number] Age/Sex: 28 / F ADM Date: 12/09/23 Loc: [facility] 250-[address]: Marco Bales D.O. Ordering Physician: Marco Bales D.O. Date of Service: 12/09/23 Procedure(s): US OB growth Accession Number(s): [id number] cc: Marco Bales D.O.; Physician,Non-Staff Lalit The [place] [address] Patient Name: ЕКАТЕРИНА SUTHERLAND MRN: [id number] date: 1995 Sex: F Assigned Patient Location: [facility] Current Patient Location: [facility] Accession/Order Number: [id number] Exam Date: 12/09/2023 14:32 Report Date: 12/09/2023 [...] Signed By: 12/09/23 152 DD/ 19 TD/TT: Creative/Art Director: [facility]OSPITALJovany HealthcareRadiology Study observation (narrative)[facility] HospitalUS OB GROWTHOrdered By: Radiologist Radiology on 73-50-8618KJDHI-70 Community Hospital Work Phone: Urinalysis macro (dipstick) panel (U)on 11-27-2023 Bilirubin, UANegativeNegative - 4(70) +++ mg/dLNOMS HealthcareBlood, UANegative Negative - 50 Felice/mcLNOMS HealthcareClarity, UAClearNOMS HealthcareColor, UA YellowNOMS HealthcareGlucose, UANegativeNegative - 2000(110) ++++ mg/dLNOMS HealthcareInterpretation and review of laboratory resultsNormalNOAR Healthcare Ketones, UANegativeNegative - 160(16) ++++ mg/dLNOMS HealthcareLeukocytes, UA NegativeNegative - 500+++ Regina/mcLNOMS HealthcareNitrite, UANegativeNegative - PositiveNOMS HealthcarepH, UA5.55 - 9NOMS HealthcareProtein, UANegativeNegative - 2000(20) ++++ mg/dLNOMS HealthcareSpec Grav, UA1.0301 - 1.03N[facility]S Healthcare Urobilinogen, UA0.20.2 - 12 mg/dLNOMS HealthcareNOMS HealthcarePREG QUANT HCGon 68-58-3604WKG QUANT17 mIU/mLNormalNationwide Children'S HospitalComment on above: Performed By: #### PREGQNT #### [facility] [address] [place] [address] Dr. Anna Alfonso [facility] CenterComhur[facility] on above: Result Comment: 5-50 0.2-1 WEEK 50-500 1-2 WEEKS 100-5,000 2-3 WEEKS 500-10,000 3-4 WEEKS 1,000-50,000 4-5 WEEKS 10,000-100,000 5-6 WEEKS 15,000-200,000 6-8 WEEKS 10,000-100,000 2-3 MONTHSPerformed By: #### PREGQNT #### [facility] [address] [place] [address] Dr. Anna Kline QUANT HCGon [id number] mIU/mLNormalNationwide Children'S HospitalComment on above:Performed By: #### GAYLEREleanor, GRASTCX #### [facility] [address] [place] [address] Dr. Anna Alfonso [facility] CenterComment on above: Result Comment: 5-50 0.2-1 WEEK 50-500 1-2 WEEKS 100-5,000 2-3 WEEKS 500-10,000 3-4 WEEKS 1,000-50,000 4-5 WEEKS 10,000-100,000 5-6 WEEKS 15,000-200,000 6-8 WEEKS 10,000-100,000 2-3 MONTHSPerformed By: #### GAYLEREleanor, GRASTCX #### [facility] [address] [place] [address] Dr. Anna Martin AND RH TYPEon [id number] and Rh group Nom (Bld)ABO Rh Typing A Rh PositiveHenry County HospitalComment on above:Performed By: #### GAYLEREleanor, GRASTCX #### [facility] [address] [place] [address] Dr. Castillo ChangER URINE PROFILEon [id number] Ql (U)NegativeNormal NEGATIVENationwide Children'S HospitalComment on above:Performed By: #### ERUR, UMICRO #### [facility] [address] [address] [address] Anna RomeroClarity (U)CLEARNormalCLEARNationwide Children'S HospitalComment on above: Performed By: #### BRANDI UMICRO #### [facility] [address] [address] [address] Anna Lowlor (U)YELLOWNormalYELLOWNationwide Children'S HospitalComment on above: Performed By: #### BRANDI UMICRO #### [facility] [address] [address] [address] Anna Karimi micrscopic examination will be performed if indicated. NormalNationwide Children'S HospitalComhurley medical center on above:Performed By: #### BRANDI UMICRO #### [facility] Laboratory [address] [address] [address] Anna RomeroGlucose Ql (U)NegativeNormalNEGATIVENationwide Children'S HospitalComhurley medical center on above:Performed By: #### BRANDI UMICRO #### [facility] Laboratory [address] [address] [address] Anna RomeroHemoglobin Ql (U)LARGEAbnormalNEGATIVENationwide Children'S Hospital Comment on above:Performed By: #### BRANDI UMICRO #### [facility] Laboratory [address] [address] [address] Anna RomeroKetones Ql (U)NegativeNormalNEGATIVENationwide Children'S HospitalComment on above:Performed By: #### BRANDI UMICRO #### [facility] Laboratory [address] [place] [address] Dr. Anna RomeroLEUKOCYTESNegativeNormalNEGATIVENationwide Children'S HospitalComhurley medical center on above:Performed By: #### BRANDI UMICRO #### [facility] Laboratory [address] [address] [address] Anna RomeroNitrite Ql (U)NegativeNormalNEGATIVENationwide Children'S HospitalComment on above:Performed By: #### BRANDI UMICRO #### [facility] Laboratory [address] [address] [address] Anna Caba (U)5.5 [pH]Normal5-9The [facility] HospitalComment on above: Performed By: #### VINCENT PAZ #### [facility] Laboratory [address] [place] [address] Dr. Anna Gamble GRAVITY>=1.096Girsiwqe6.005-<=1.025The [facility] Comment on above:Performed By: #### JD PAZRO #### [facility] Laboratory [address] [place] [address] Dr. Anna Carmona PROTEINTRACENormalNEGATIVE/ TRACENationwide Children'S HospitalComment on above:Performed By: #### JD PAZRO #### [facility] [address] [place] [address] Dr. Anna Esparza MICRO INDINDICATEDHenry County HospitalComment on above: Performed By: #### JD PAZRO #### [facility] Laboratory [address] [place] [address] Dr. Anna Currybilinogen Qn (U)0.2 {Joel'U}/dLNormal0.2 - 1.0The [facility] HospitalComment on above:Performed By: #### JD PAZRO #### [facility] Laboratory [address] [place] [address] Dr. Anna Kline QUANT HCGon [id number] WEQYH1061 mIU/mLNormalThe [facility] HospitalComment on above:Performed By: #### SSCRN, GRASTCX #### [facility] Laboratory [address] [place] [address] Dr. Anna Alfonso RANGESEE BELOWHenry County HospitalComment on above: Result Comment: 5-50 0.2-1 WEEK 50-500 1-2 WEEKS 100-5,000 2-3 WEEKS 500-10,000 3-4 WEEKS 1,000-50,000 4-5 WEEKS 10,000-100,000 5-6 WEEKS 15,000-200,000 6-8 WEEKS 10,000-100,000 2-3 MONTHSPerformed By: #### SSCRN, GRASTCX #### [facility] [address] [address] [address] Anna Mazariegos MICROSCOPIC ONLYon [id number]D SEEN [facility] on above:Performed By: #### ERUR, UMICRO #### [facility] Laboratory [address] [address] [address] Anna Coy identified Cx Nom (U)NOT INDICATEDNormalThCincinnati VA Medical CenterComhurley medical center on above:Performed By: #### ERUR, UMICRO #### [facility] Laboratory [address] [address] [address] Anna Carrera SEENNormalNONE SEENKettering Memorial Hospital on above:Performed By: #### ERUR, UMICRO #### [facility] Laboratory [address] [address] [address] Anna Okeefe LM Nom (Urine sed)NONE SEENNormalNONE SEENKettering Memorial Hospital on above:Performed By: #### ERUR, UMICRO #### [facility] Laboratory [address] [address] [address] Castillo ChangEpithelial cells LM Ql (Urine sed)RARENormalNONE SEEN /RAREKettering Memorial Hospital on above:Performed By: #### ERUR, UMICRO #### [facility] Laboratory [address] [address] [address] Anna ArguetaCOUSTRACEAbnormalNONE SEENKettering Memorial Hospital on above:Performed By: #### ERUR, UMICRO #### [facility] [address] [address] [address] Anna RomeroGmazuNQV1-5Xqolgveu7-5RpkKettering Memorial Hospital on above:Performed By: #### ERUR, UMICRO #### [facility] Laboratory [address] [address] [address] Anna RomeroWBC0-2AbnormalNONE SEENKettering Memorial Hospital on above: Performed By: #### ERUR, UMICRO #### [facility] [address] [address] [address] Anna Welsh PREG TVon [id number] PREG TVEXAM: US PREG TV HISTORY: , [...] authenticated by: LUDWIG JEAN BAPTISTE Date: 2023-01-21 16:54NormACMC [facility] URINE PROFILEon 18-20-1474Lnwlfrjeo Ql (U)NegativeNormal NEGATIVEThe [facility] HospitalComment on above:Performed By: #### ERUCanelo #### [facility] Laboratory [address] [address] [address] Anna RomeroClarity (U)CLEARNormalCLEARThe [facility] HospitalComment on above: Performed By: #### ERUR #### [facility] Laboratory [address] [address] [address] Anna Lowlor (U)YELLOWNormalYELLOWNationwide Children'S HospitalComment on above: Performed By: #### ERUR #### [facility] [address] [address] [address] Anna Karimi micrscopic examination will be performed if indicated. NormalThe [facility]sworth HospitalComment on above:Performed By: #### ERUR #### [facility] [address] [address] [address] Anna RomeroGlucose Ql (U)NegativeNormalNEGATIVENationwide Children'S HospitalComment on above:Performed By: #### ERUR #### [facility] [address] [place] [address] Dr. Anna RomeroHemoglobin Ql (U)NegativeNormalNEGATIVEBethesda North Hospital on above:Performed By: #### ERUR #### [facility] [address] [place] [address] Dr. Anna RomeroKetones Ql (U)NegativeNormalNEGATIVENationwide Children'S HospitalComment on above:Performed By: #### ERUR #### [facility] [address] [place] [address] Dr. Anna RomeroLEUKOCYTESNegativeNormalNEGATIVEKettering Memorial Hospital on above:Performed By: #### ERUR #### [facility] [address] [place] [address] Dr. Anna RomeroNitrite Ql (U)NegativeNormalNEGATIVENationwide Children'S HospitalComment on above:Performed By: #### ERUR #### [facility] [address] [address] [address] Anna RomeropH (U)6.5 [pH]Normal5-9Children[facility] Hospital for Rehabilitationment on above: Performed By: #### ERUR #### [facility] Laboratory [address] [address] [address] Anna RomeroSPEC GRAVITY1.540Gjirik9.005-<=1.025The Kandace HospitalComment on above:Performed By: #### ERUR #### [facility] [address] [place] [address] Dr. Anna Carmona PROTEINTRACENormalNEGATIVE/ TRACEThe [facility] HospitalComment on above:Performed By: #### ERUR #### [facility] [address] [place] [address] Dr. Anna Esparza MICRO INDNOT INDICATEDNormalThe [facility] HospitalComment on above:Performed By: #### ERUR #### [facility] [address] [place] [address] Dr. Anna Currybilinogen Qn (U)0.2 {Joel'U}/dLNormal0.2 - 1.0The [facility] HospitalComment on above:Performed By: #### ERUR #### [facility] [address] [place] [address] Dr. Anna RomeroGROUP A STREP CULTUREon 01-08-2023S. pyogenes Ag Ql (Unsp spec) Culture Observations: NEGATIVE FOR GROUP A STREPTOCOCCUS.NormalThe [facility] HospitalComment on above: Performed By: #### SSCANTON GRASTCX #### [facility] Laboratory [address] [place] [address] Dr. Anna RomeroSTREPT SCREENon 66-83-1624PQUIW SCREEN ANegativeNormalNEGATIVEThe [facility] HospitalComment on above:Performed By: #### CHELSI GRASTCX #### [facility] [address] [place] [address] Dr. Anna RomeroSYMPTOMATIC COVID-19 ANTIGENon [id number] StatementSEE BELOW NormalThe [facility] on above:Result Comment: This test has [...] revoked sooner.Performed By: #### SSCRN, GRASTCX #### [facility] [address] [place] [address] Dr. Anna Bonilla-CoV-2 (COVID-19) RNA DAVY+probe Ql (Unsp spec)Positive AbnormalNEGATIVEThe [facility] HospitalComment on above:Performed By: #### SSCRN, GRASTCX #### [facility] [address] [place] [address] Dr. Anna Welsh PREG TVon [id number] PREG TVEXAMINATION: US PREG TV HISTORY: Irregular [...] authenticated by: GENI CABRAL Date: 2022-05-31 19:46NormalThe [facility] HospitalBILIRUBIN TOTALon [id number] [Mass/Vol]0.3 mg/dLNormal 0.2-1.0The [facility] HospitalComment on above:Performed By: #### TBIL #### [facility] Laboratory [address] [place] [address] Dr. Anna RomeroCBC AUTO DIFFon [id number] #0.0 103/ulNormal0.0-0.1The [facility] HospitalComment on above:Performed By: #### CBC #### [facility] Laboratory [address] [address] [address] Anna RomeroBasophils/100 WBC (Bld)0.4 %Normal0.2-2.0The [facility] on above:Performed By: #### CBC #### [facility] [address] [place] [address] Dr. Anna Davis #0.0 103/ulNormal0.0-0.7The [facility] HospitalComment on above: Performed By: #### CBC #### [facility] Laboratory [address] [place] [address] Dr. Anna Renteriaosinophils/100 WBC (Bld)0.2 %Critically low0.9-7.0The [facility] HospitalComment on above:Performed By: #### CBC #### [facility] [address] [place] [address] Dr. Anna Renteriarythrocyte distribution width (RBC) [Ratio]12.8 %Dxnoxe31.0-15.0 The [facility] HospitalComment on above:Performed By: #### CBC #### [facility] Laboratory [address] [place] [address] Dr. Anna RomeroHematocrit (Bld) [Volume fraction]39.2 %Eqcvau82.0-48.0The [facility] HospitalComment on above:Performed By: #### CBC #### [facility] Laboratory [address] [place] [address] Dr. Anna RomeroHemoglobin (Bld) [Mass/Vol]12.9 g/lDIuflya51.0-16.0The [facility] HospitalComment on above:Performed By: #### CBC #### [facility] [address] [place] [address] Dr. Anna Cardoza #0.01 10e3/ulNormal0.00-0.03The [facility] HospitalComment on above:Performed By: #### CBC #### [facility] [address] [place] [address] Dr. Anna Cardoza %0.2 %Normal0.0-0.5The [facility] HospitalComment on above: Performed By: #### CBC #### [facility] [address] [place] [address] Dr. Anna Sommers #1.6 103/ulNormal1.2-3.8The [facility] HospitalComment on above:Performed By: #### CBC #### [facility] [address] [place] [address] Dr. Anna Kayhocytes/100 WBC (Bld)29.8 %Xwlydl84.5-60.0The [facility] HospitalComment on above:Performed By: #### CBC #### [facility] [address] [place] [address] Dr. Anna Swain DIFF REQNONormalThe [facility] HospitalComment on above: Performed By: #### CBC #### [facility] [address] [place] [address] Dr. Anna Rubio (RBC) [Entitic mass]31.8 gyGtgtix33.7-34.0The [facility] HospitalComment on above:Performed By: #### CBC #### [facility] [address] [place] [address] Dr. Anna Flores (RBC) [Mass/Vol]32.9 g/jYSspfvt76.9-35.2The [facility] on above:Performed By: #### CBC #### [facility] [address] [place] [address] Dr. Anna Anderson (RBC) [Entitic vol]96.6 wAEccqyc38.0-99.0The [facility] HospitalComment on above:Performed By: #### CBC #### [facility] Laboratory [address] [place] [address] Dr. Anna Alamo #0.4 103/ulNormal0.3-0.8The [facility] HospitalComhurley medical center on above:Performed By: #### CBC #### [facility] [address] [place] [address] Dr. Anna Parksocytes/100 WBC (Bld)7.2 %Normal1.7-12.0The [facility] Comment on above:Performed By: #### CBC #### [facility] [address] [place] [address] Dr. Anna Jasso #3.3 103/ulNormal1.4-6.5The [facility] HospitalComment on above:Performed By: #### CBC #### [facility] [address] [place] [address] Dr. Anna Hirschutrophils/100 WBC (Bld)62.2 %Pxntgq06.0-75.0The [facility] HospitalComment on above:Performed By: #### CBC #### [facility] [address] [place] [address] Dr. Anna Amaya mean volume (Bld) [Entitic vol]10.0 fLNormal9.5-13.5The [facility] HospitalComment on above:Performed By: #### CBC #### [facility] Laboratory [address] [place] [address] Dr. Anna RetanaT153 103/nwZexlas987-869Rxd [facility] HospitalComment on above: Performed By: #### CBC #### [facility] [address] [place] [address] Dr. Anna TonyC4.06 106/ulCritically low4.20-5.40The [facility] HospitalComment on above:Performed By: #### CBC #### [facility] [address] [place] [address] Dr. Anna BarkleyBC5.3 103/ulNormal4.0-11.0The [facility] HospitalComment on above: Performed By: #### CBC #### [facility] [address] [place] [address] Dr. Anna Rockwell T3on 86-24-7981KKMU T33.18 pg/mlLNormal2.18-3.98The [facility] HospitalComment on above:Performed By: #### SSCRN, GRASTCX #### [facility] Laboratory [address] [place] [address] Dr. Anna Rockwell T4on 97-02-6305Nkff T4 [Mass/Vol]1.08 ng/dLNormal0.76-1.46 The [facility] HospitalComment on above:Performed By: #### FT4 #### [facility] Laboratory [address] [place] [address] Dr. Anna RomeroPROF 14(COMP METB)on 41-15-2424Yrojtaa [Mass/Vol]4.3 g/dLNormal 3.4-5.0The [facility] HospitalComment on above:Performed By: #### SSCRN, GRASTCX #### [facility] [address] [place] [address] Dr. Anna RomeroAlbumin/Globulin [Mass ratio]1.2 {ratio}NormalThe [facility] HospitalComment on above:Performed By: #### SSCRN, GRASTCX #### [facility] [address] [place] [address] Dr. Anna Santos [Catalytic activity/Vol]60 U/VYlkbjr23-421Jyl [facility] HospitalComment on above:Performed By: #### SSCRN, GRASTCX #### [facility] [address] [place] [address] Dr. Anna Brink [Catalytic activity/Vol]25 U/FDtxfbq19-01Coq [facility] HospitalComment on above:Performed By: #### SSCRN, GRASTCX #### [facility] [address] [place] [address] Dr. Anna Williamson gap [Moles/Vol]13.8 mmol/LNormalThe [facility] Comment on above:Performed By: #### SSCRN, GRASTCX #### [facility] [address] [place] [address] Dr. Anna RomeroAST [Catalytic activity/Vol]21 U/SRlidvs14-52Olq [facility] HospitalComment on above:Performed By: #### SSCRN, GRASTCX #### [facility] [address] [place] [address] Dr. Anna RomeroCalcium [Mass/Vol]9.4 mg/dLNormal8.5-10.1The [facility] Comment on above:Performed By: #### SSCRN, GRASTCX #### [facility] [address] [address] [address] Anna RomeroChloride [Moles/Vol]101 mmol/KSsjmup25-634SgjNationwide Children'S Hospital Comment on above:Performed By: #### SSCRN, GRASTCX #### [facility] [address] [address] [address] Anna RomeroCO2 [Moles/Vol]26.8 mmol/QRooqpj20.0-32.0The [facility] Comment on above:Performed By: #### SSCRN, GRASTCX #### [facility] [address] [place] [address] Dr. Anna RomeroCreatinine [Mass/Vol]0.87 mg/dLNormal0.55-1.02N[facility]'S HospitalComment on above:Performed By: #### SSCRN, GRASTCX #### [facility] [address] [place] [address] Dr. Anna RenteriaGFR-AF INDONESIAN>60Normal>=60The [facility] HospitalComment on above:Performed By: #### SSCRN, GRASTCX #### [facility] [address] [place] [address] Dr. Anna RenteriaGFR-NON AF INDONESIAN>60Normal>=60N[facility]wide Children'S HospitalComment on above:Performed By: #### SSCRN, GRASTCX #### [facility] [address] [place] [address] Dr. Anna RomeroGlobulin (S) [Mass/Vol]3.5 g/dLNormalThe [facility] HospitalComment on above:Performed By: #### SSCRN, GRASTCX #### [facility] [address] [place] [address] Dr. Anna RomeroGlucose [Mass/Vol]80 mg/kDIqhdva44-360DxxNationwide Children'S Hospital Comment on above:Performed By: #### SSCRN, GRASTCX #### [facility] [address] [place] [address] Dr. Anna RomeroPotassium [Moles/Vol]3.6 mmol/LNormal3.5-5.1The [facility] Comment on above:Performed By: #### SSCRN, GRASTCX #### [facility] [address] [place] [address] Dr. Anna RomeroProtein [Mass/Vol]7.8 g/dLNormal6.4-8.2The [facility] Comment on above:Performed By: #### SSCRN, GRASTCX #### [facility] [address] [place] [address] Dr. Anna RomeroSodium [Moles/Vol]138 mmol/RZlpuzu036-479Gyw [facility] Comment on above:Performed By: #### SSCRN, GRASTCX #### [facility] [address] [place] [address] Dr. Anna RomeroUrea nitrogen [Mass/Vol]12.0 mg/dLNormal7.0-18.0N[facility]'S HospitalComment on above:Performed By: #### SSCREleanor, GRASTCX #### [facility] [address] [place] [address] Dr. Anna Buenrostro nitrogen/Creatinine [Mass ratio]13.8 mg/mgNoProtestant HospitalComment on above:Performed By: #### SSCREleanor, GRASTCX #### [facility] [address] [place] [address] Dr. Anna Marshall 85-89-9275SZS0.442 uIU/mLNormal0.358-3.740N[facility]wide Children'S HospitalComment on above:Performed By: #### SSCRN, GRASTCX #### [facility] [address] [place] [address] Dr. Anna ANGUIANO BELOWHenry County HospitalComment on above: Result Comment: <0.34 UIU/ml HYPERTHYROID 0.34-5.60 UIU/ml EUTHYROID >5.60 UIU/ml HYPOTHYROIDPerformed By: #### SSCRN, GRASTCX #### [facility] [address] [address] [address] Anna Romero Vital Signs Date TimeVital SignValuePerforming SjxokbyuqCokouvhj78-78-2018 11:08-0500Body mass index (BMI) [Ratio]26.53 kg/r9Ygrrx Nii DO Work Phone: [phone] [place], [place] [address]Vecqbmhylk72-67-4903 11:08-0500Body rwlyay72.57 kgCorey Nii DO Work Phone: [phone] [place], [place] [address]Pqdfwasxyl31-19-4643 11:08-0500Diastolic blood metabron27 mm[Hg]Marco Nii DO Work Phone: [phone] [place], [place] [address]Hcdiycbwco59-66-3220 11:08-0500Systolic blood nrdfyoif851 mm[Hg]Marco Nii DO Work Phone: [phone] [place], [place] [address]Uoffxrkmuy69-31-9185 10:14-0400Body mass index (BMI) [Ratio]25.74 kg/m2Amy Krys PA Work Phone: [phone] [place], [place] [address]Omnlimjdin88-44-5688 10:14-0400Body xiwztk03.35 kgAmy Krys PA Work Phone: [phone] [place], [place] [address]Dgjbowcrlf19-33-7047 10:14-0400Diastolic blood mm[Hg]Rosana Marcano PA Work Phone: [phone] [place], [place] [address]Wlfirftkcg50-05-8595 10:14-0400Systolic blood rkmrvouu714 mm[Hg]Rosana Marcano PA Work Phone: [phone] [place], [place] [address]Bhjznkmxyx14-15-0626 10:08-0400Body mass index (BMI) [Ratio]24.29 kg/x1OrixsqulDrew Solorio ENVIRONMENTAL RESOURCE SPECIALIST Work Phone: [phone] [place], [place] [address]Xpvctsteax89-11-8333 10:08-0400Body scdzwa01.27 kgDrew Solorio ENVIRONMENTAL RESOURCE SPECIALIST Work Phone: [phone] [place], [place] [address]Irvelpbeai06-06-1352 10:08-0400Diastolic blood qqrvvcje74 mm[Hg]Drew Solorio ENVIRONMENTAL RESOURCE SPECIALIST Work Phone: [facility] HospitalLwtwaowarf10-95-8262 10:08-0400Systolic blood ejsbkizo751 mm[Hg]Drew Solorio ENVIRONMENTAL RESOURCE SPECIALIST Work Phone: [phone] [place], [place] [address]Tgwqmmmvje45-78-4596 09:58-0400Body mass index (BMI) [Ratio]23.91 kg/h4Fqrmk Nii DO Work Phone: [phone] [place], [place] [address]Rxdyuplxud43-88-5294 09:58-0400Body nbobpn89.19 kgCorey Nii DO Work Phone: [phone] [place], [place] [address]Keomohpzjq95-30-7736 09:58-0400Diastolic blood xkkxyxpr75 mm[Hg]Marco Nii DO Work Phone: [phone] [place], [place] [address]Mhguwfsafm35-53-2327 09:58-0400Systolic blood omauhzhv281 mm[Hg]Marco Nii DO Work Phone: [phone] [place], [place] [address]Yrsbgfbtjb94-44-6721 10:15-0400Body mass index (BMI) [Ratio]22.4 kg/o2Gnhzk Nii DO Work Phone: [phone] [place], [place] [address]Nvolmxasrt71-36-4043 10:15-0400Body .96 kgCorey Nii DO Work Phone: [phone] [place], [place] [address]Pcrnjdccfx96-11-1497 10:15-0400Diastolic blood hykkkkku33 mm[Hg]Marco Nii DO Work Phone: [phone] [place], [place] [address]Afijwtrfbg58-43-3497 10:15-0400Systolic blood qfiopeym163 mm[Hg]Marco Nii DO Work Phone: [phone] [place], [place] [address]Iecvtxhlsn89-17-6551 11:07-0400Body mass index (BMI) [Ratio]21.79 kg/d1PdxgcDannemora State Hospital for [facility]08-01-2025 11:07-0400Body weight 61.24 kgDannemora State Hospital for the [facility]inally [facility]02-14-2024 14:46-0500Body mass index (BMI) [Ratio]25.66 kg/m2Rosana HAYES Work Phone: [phone] [place], [place] [address]Twrwysfdij58-75-2996 14:46-0500Body aanxke39.12 kgRosana HAYES Work Phone: noSaint [facility]–SmithvilleSajjezorkh91-98-1218 14:46-0500Diastolic blood pxyrzegs31 mm[Hg]Rosana HAYES Work Phone: noSaint [facility] Hospital–SmithvilleDmtibuhdvu46-25-5576 14:46-0500Systolic blood mjnhelza163 mm[Hg]Rosana HAYES Work Phone: [facility] HospitalWspkadroea81-29-8889 12:21-0500Body ucyjgb943.2 cmHaseeb Nice MD Work Phone: [phone] [place], [place] 5903201-03-2024 12:21-0500Body mass index (BMI) [Ratio]22.55 kg/m2Haseeb Nice MD Work Phone: [phone] [place], [place] 5903201-03-2024 12:21-0500Body .32 kgHaseeb Nice MD Work Phone: [phone] [place], [place] 5903201-03-2024 12:21-0500Diastolic blood mm[Hg]Haseeb Nice MD Work Phone: [phone] [place], [place] [address]3201-03-2024 12:21-0500Heart rate 79 /minHaseeb Nice MD Work Phone: [phone] [place], [place] [address]01-03-2024 12:21-0500Systolic blood jroalykq187 mm[Hg]Haseeb Nice MD Work Phone: [phone] [place] [address] Encounters Encounter DateEncounter TypeCare ProviderFacilityStart: 08-23-2025 End: 35-03-0619Lxrrpdasv Result EncounterRosana HAYES Work Phone: [facility] External Department UnsolicitedStart: 08-23-2025 End: 22-54-6769Eyvtieakg Result EncounterRosana HAYES Work Phone: n[facility] External Department UnsolicitedStart: 08-23-2025 End: 43-42-5381Scavxb outpatient visit 15 minutesCorey Nii DO Work Phone: [facility] OBGYNComment on above:Third trimester ([facility]); 31 weeks gestation of ([facility])Start: 08-23-2025 End: 97-22-0816wjxhlhligoSEIHL FAZIONot AvailableStart: 08-09-2025 End: 70-20-6635Vctyps Bob HAYES Work Phone: [facility] OBGYNStart: 08-09-2025 End: 08-02-9834Wtjgfa Bob HAYES Work Phone: [facility] OBGYNStart: 08-09-2025 End: 81-08-2383vkvaslrwdlSIC RAMEYNot AvailableStart: 08-09-2025 End: 01-35-8509Hlydju outpatient visit 15 minutesRosana HAYES Work Phone: [facility] OBGYNComment on above: size inconsistent with dates ([facility]) (Primary Dx); Third trimester ([facility]); 29 weeks gestation of ([facility]); History of miscarriage; History of oligohydramnios; Thyroid disease; Acquired autoimmune hypothyroidismStart: 07-21-2025 End: 85-92-9319Xfzuzb Jjaa Solorio NP Work Phone: [facility] OBGYNStart: 07-21-2025 End: 43-10-3638Zskarx Jaja Solorio NP Work Phone: [facility] OBGYNStart: 07-21-2025 End: 01-55-4088xlzxflnnsnHPHYCSVQ EBERLYNot AvailableStart: 07-21-2025 End: 25-88-9173Oefvdp outpatient visit 15 minutesDrew Solorio NP Work Phone: [facility] OBGYNComment on above:Acquired autoimmune hypothyroidism (Primary Dx); Second trimester ([facility]); 26 weeks gestation of ([facility]); Depression affecting ([facility])Start: 06-22-2025 End: 33-05-0768Kxyidk flowsheetCorey Nii DO Work Phone: NODI K[facility]ace OBGYNStart: 06-22-2025 End: 76-24-1242Vdpmus flowsheetCorey Nii DO Work Phone: [facility] OBGYNStart: 06-22-2025 End: 07-29-1950Ikxake outpatient visit 15 minutesCorey Nii DO Work Phone: N[facility] Kandace OBGYNComment on above:22 weeks gestation of ([facility]); Second trimester ([facility]); Thyroid disease ; Diabetes mellitus screeningStart: 06-22-2025 End: 08-04-3514wyiwnkiiokTNKGC FAZIONot AvailableStart: 06-09-2025 End: 06-66-2661Acbauatqs Result EncounterCorey Nii DO Work Phone: NOVD External Department UnsolicitedStart: 06-09-2025 End: 51-16-2175Sknfuhcfa Result EncounterCorey Nii DO Work Phone: NOMS External Department UnsolicitedStart: 06-09-2025 End: 19-98-7673wldexuerzeJIBDM FAZIONot AvailableStart: 05-25-2025 End: 83-33-5455Mrdkxr flowsheetCorey Nii DO Work Phone: [facility] OBGYNStart: 05-25-2025 End: 25-73-5578Ryszlb flowsheetCorey Nii DO Work Phone: [facility] OBGYNStart: 05-25-2025 End: 19-44-1072Nmahtaqbx Result EncounterCorey Nii DO Work Phone: NOMS External Department UnsolicitedStart: 05-25-2025 End: 04-87-2584Qjtiolqv Result EncounterCorey Nii DO Work Phone: NOMS External Department UnsolicitedStart: 05-25-2025 End: 33-51-0782Vkmpvnd encounter procedureCorey Nii DO Work Phone: noms HealthcareStart: 05-25-2025 End: 64-13-7582Lsfdgsih preventive med est patient 18-39 yrsCorey Nii DO Work Phone: noms Kandace OBGYNComment on above:18 weeks gestation of ([facility]); Second trimester ([facility]); Well woman exam with routine gynecological exam; Screening, , for anatomic survey ([facility]); Exposure to STD; Vaginal discharge; Thyroid diseaseStart: 05-25-2025 End: 91-91-0764hgiuifhxvjFMTQK FAZIONot AvailableStart: 05-14-2025 End: 05-27-1563Fuvgzq outpatient visit 5 minutesFawestley Nurse Noms Bcp ObNOMS Kandace OBGYNComment on above:GA: 59w0aDymsb: 05-14-2025 End: 93-41-2554sfmvesxrhcORHAC FAZIONot AvailableStart: 02-10-2024 End: 66-24-5262Xtouaarkr Result EncounterCorey Nii DO Work Phone: noms External Department UnsolicitedStart: 02-10-2024 End: 67-39-0521Eglbrhoqx Result EncounterCorey Nii DO Work Phone: noms External Department UnsolicitedStart: 02-04-2024 End: 00-51-2901Lmznwepgo Result EncounterCorey Nii DO Work Phone: noms External Department UnsolicitedStart: 02-04-2024 End: 91-65-0650Gebzzvycb Result EncounterCorey Nii DO Work Phone: noms External Department UnsolicitedStart: 01-27-2024 End: 27-60-9926Ypuhbrenk Result EncounterCorey Nii DO Work Phone: noms External Department UnsolicitedStart: 01-27-2024 End: 89-47-5672Tiowqgswd Result EncounterCorey Nii DO Work Phone: noms External Department UnsolicitedStart: 01-21-2024 End: 96-76-7118Jreapyaoz Result EncounterCorey Nii DO Work Phone: NOBF External Department UnsolicitedStart: 01-21-2024 End: 99-43-6924Lztmvbxzw Result EncounterCorey Nii DO Work Phone: NOLI External Department UnsolicitedStart: 01-13-2024 End: 01-22-2805Itxhzyhfp Result EncounterCorey Nii DO Work Phone: noms External Department UnsolicitedStart: 01-13-2024 End: 33-99-4844Bmervztpu Result EncounterCorey Nii DO Work Phone: noms External Department UnsolicitedStart: 01-07-2024 End: 46-51-8361Rqutwwlyy Result EncounterCorey Nii DO Work Phone: NOXY External Department UnsolicitedStart: 01-07-2024 End: 02-29-5681Wrghkeagb Result EncounterCorey Nii DO Work Phone: noms External Department UnsolicitedStart: 12-30-2023 End: 63-75-3219Swpbeszek Result EncounterCorey Nii DO Work Phone: noms External Department UnsolicitedStart: 12-30-2023 End: 92-82-3747Otvxdajnm Result EncounterCorey Nii DO Work Phone: NOMR External Department UnsolicitedStart: 12-23-2023 End: 99-00-1672Gwpmrqllj Result EncounterCorey Nii DO Work Phone: noms External Department UnsolicitedStart: 12-23-2023 End: 31-49-2696Ccmvwneai Result EncounterCorey Nii DO Work Phone: noms External Department UnsolicitedStart: 12-16-2023 End: 65-75-0126Onclsthsl Result EncounterCorey Nii DO Work Phone: noms External Department UnsolicitedStart: 12-16-2023 End: 38-55-9731Fpcrblner Result EncounterCorey Nii DO Work Phone: noms External Department UnsolicitedStart: 12-09-2023 End: 32-79-5421Odlzlvxwo Result EncounterCorey Nii DO Work Phone: noms External Department UnsolicitedStart: 12-09-2023 End: 00-58-1361Zydxwogbs Result EncounterCorey Nii DO Work Phone: noms External Department UnsolicitedStart: 11-27-2023 End: 39-92-2507Aqaais outpatient visit 15 minutesAmy Krys HAYES Work Phone: [facility] OBComment on above:Second trimester ; with normal glucose tolerance test (GTT); Diabetes mellitus screening; History of miscarriage; History of oligohydramniosStart: 11-19-2023 End: 78-70-2052jjdmkuembsYSFVI R City Hospitaltart: 10-29-2023 End: 33-67-4496icjfzgnmgaHCBRXMiddletown Hospitaltart: 64-18-2231Olestzthtuhvo procedureHind Darius Nice MD Work Phone: [phone]-Tldel Medicine at [facility] Comment on above:History of oligohydramnios in prior , currently (Primary Dx); 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; History of delivery, currently Start: 17-55-5580Gmtxxpoqx encounterRachelle Mullen LPNMaternal- Medicine at [facility] Start: 79-55-0678Zeuor Vida Rollins MD Work Phone: [phone]-Eugcn Medicine at [facility] Start: 82-20-2163Esrysc Grace Rodriguez CMAMaternal- Medicine at [facility] HospitalComment on above:History of oligohydramnios in prior , currently (Primary Dx)Start: 10-16-2023 End: 33-61-5820iyzzpaubqzKCBLF R FAZIHighland District Hospital HospitalStart: 10-16-2023 End: 68-48-8155Kqtbyx outpatient new 45 minutesHind Darius Nice MD Work Phone: [phone]-Vinun Medicine at [facility] Comment on above:High-risk in second trimester (Primary Dx); History of oligohydramnios in prior , currently ; 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; 20 weeks gestation of pregnancyStart: 73-21-7401Cdius abstractingScanning Provider ExternalMaternal- Medicine at [facility] Hospitaltart: 01-28-2023 End: 76-37-0077armvrqzynzFY COREY FAZIO .Facility:W6Svmgb: 01-23-2023 End: 71-75-1824qssqijeoznYY COREY FAZIO .Facility:H1Utoou: 01-22-2023 End: 58-49-4689xhinmzbazwQYOFXN DIAB .Facility:U5Tltlq: 01-21-2023 End: 58-28-0758rkgfarrvtuPWINEVP D KATKOFacility:W3Exirj: 01-08-2023 End: 91-12-7681avaivcfsetWP STEPHEN G REINECKFacility:E8Gwdgy: 10-20-2022 End: 85-95-3563sphnlwqbevJHJAMXC D KATKOFacility:M1Cmuue: 09-77-6416ywnpdjdcnnSI COREY FAZIO .Facility:R6Xrnnp: 05-31-2022 End: 87-77-0768vakubotatjMT COREY FAZIO .Facility:L0Dewkn: 45-04-0708yhilejyttj DR MARCO BALES .Facility:S7Xeung: 03-16-2022 End: 45-36-5192bvdqkgbsnrHV KIM E KNIGHT .Facility:U2Ixete: 03-03-2022 End: 48-81-3190cjgdgdwozpXTXLNTG D KATKOFacility:H1 Procedures DateProcedureProcedure DetailPerforming ClinicianStart: 40-39-9652Unvbu dip stick/tablet rgnt non-auto w/o micrscpCorey Nii DO Work Phone: Start: 58-82-3588KZI CBC WITH AUTO DIFFAmy Krys HAYES Work Phone: Start: 02-96-7188Lxbqw dip stick/tablet rgnt non-auto w/o micrscpAmy Krys HAYES Work Phone: Start: 91-77-5384Hmjhl dip stick/tablet rgnt non-auto w/o micrscpDrew Solorio NP Work Phone: Start: 66-89-4843Eoxsp dip stick/tablet rgnt non-auto w/o micrscpCorey Nii DO Work Phone: Start: 50-89-3171MEA CBC WITH AUTO DIFFCorey Nii DO Work Phone: Start: 16-60-0489QCFEAAPMF VAGINITIS (HTRX)Marco Nii DO Work Phone: Start: 38-90-4943Ysmrp dip stick/tablet rgnt non-auto w/o micrscpCorey Nii DO Work Phone: Start: 55-51-2649ESP,APTIMA HPV,AGE GDLNCorey Nii DO Work Phone: Start: 91-34-3927Tumqpcusrjb observation [Identifier] in Cervix by Cyto stainCorey Nii DO Work Phone: Start: 05-14-2025 End: 05-25-4178Kgvli dip stick/tablet rgnt non-auto w/o micrscpCorey Nii DO Work Phone: Start: 09-23-0401FD OB BPP W NON-STRESSCorey Nii DO Work Phone: Start: 00-35-0581IP OB GROWTHCorey Nii DO Work Phone: Start: 24-15-4089JE OB BPP W NON-STRESSCorey Nii DO Work Phone: Start: 83-75-4160TN OB BPP W NON-STRESSCorey Nii DO Work Phone: Start: 91-95-5554SD OB BPP W NON-STRESSCorey Nii DO Work Phone: Start: 03-08-5223FU OB BPP W NON-STRESSCorey Nii DO Work Phone: Start: 52-21-2652HCQ CBC WITH AUTO DIFFRosana HAYES Work Phone: Start: 43-36-2723XEJIDIG 1 HOURAmy Krys HAYES Work Phone: Start: 19-46-7829KH OB BPP W NON-STRESSCorey Nii DO Work Phone: Start: 04-61-2293NI OB GROWTHCorey Nii DO Work Phone: Start: 35-56-3867MH OB BPP W NON-STRESSCorey Nii DO Work Phone: Start: 18-90-9127MG OB BPP W NON-STRESSCorey Nii DO Work Phone: Start: 51-01-4609NF OB BPP W NON-STRESSCorey Nii DO Work Phone: Start: 50-87-0591YW OB GROWTHCorey Nii DO Work Phone: Start: 62-92-6254PG OB BPP W NON-STRESSCorey Nii DO Work Phone: Start: 41-47-5603Bvhzr dip stick/tablet rgnt non-auto w/o micrscpAmy Krys HAYES Work Phone: Start: 08-79-2991Zwhaxewcvyc observation [Identifier] in Cervix by Cyto stainNii Ob Plan of Treatment DateCare ActivityDetailAuthorStart: 57-54-0498WYfU,Tdap and Td Vaccines (9 - Td or Tdap)DTaP,Tdap and Td Vaccines (9 - Td or Tdap)[facility] SystemStart: 45-92-9365Avigxbten for malignant neoplasm of cervixNOMS HealthcareStart: 81-76-1817Bklkjrhjl for malignant neoplasm of cervixPap SmearNOMS Healthcare Start: 11-08-2025 End: 20-61-7203Fkbtega encounter unapkoqdh62/26/2026 10:10 AM EST Consult [facility] [address] [place] [address] Marco Bales, DO [address] [place] [address] [facility] OBGYNStart: 09-07-2025 End: 97-62-0829Ydrvzch encounter ezjtzhkcu52/25/2025 9:30 AM EST Routine [facility] OBGYEleanor [address] [id number] Rosana Marcano PA [address] [facility] [place] [address] [facility] OBGYNStart: 08-23-2025 End: 85-38-8044Gjcjlmb encounter lynwnrzed61/10/2025 11:00 AM EST Routine [facility] [address] [place] [phone] Marco Bales, DO [address] [place] [address] [facility] OBGYNStart: 08-23-2025 End: 11-47-6899Fkbclhmzkjgw / ancillary services muwrgnrtzz98/10/2025 10:30 AM EST Ancillary Procedure [facility] [address] [place] [phone] [facility] OBGYNStart: 08-09-2025 End: 36-87-6156KL for pregnancyUS OB follow up transabdominal approach Imaging Routine History of miscarriage History of oligohydramnios Thyroid disease Expected: 08/09/2025, Expires: 12/10/2025[facility] HealthcareComment on above: Expected: 08/09/2025, Expires: 12/10/2025Start: 08-03-2025 End: 21-94-0204Homnnta encounter fuwkqqnfb38/21/2025 1:20 PM EDT Routine KEEGAN DIETZ [address] [facility] [address] [place], [id number] Rosana Marcano PA [address] [facility] [address] [place], [place] [id number] NOMJovany [place] OBGYNStart: 07-21-2025 End: 41-40-7778Lnbzgof encounter hfheezdkt62/08/2025 10:00 AM EDT Routine NOMJovany DIETZ [address] [facility] [address] Drew Solorio, ENVIRONMENTAL RESOURCE SPECIALIST [address] [facility] [place] [phone] YUNGJovany Kandace OBGYNStart: 06-22-2025 End: 74-24-2043GGZ panel - Blood by Automated countCBC Lab Routine Diabetes mellitus screening Expected: 06/22/2025 (Approximate), Expires: 06/22/2026[facility] Work Phone: comment on above:Expected: 06/22/2025 (Approximate), Expires: 06/22/2026Start: 06-22-2025 End: 35-43-2539Tngzhudwmrq of glucose 1 hour after glucose challenge for glucose tolerance testGlucose tolerance, 1 hour Lab Routine Diabetes mellitus screening Expected: 06/22/2025 (Approximate), Expires: 06/22/2026[facility] HealthcareComment on above:Expected: 06/22/2025 (Approximate), Expires: 06/22/2026Start: 06-22-2025 End: 30-96-0873Jplyqxr encounter procedureNOMS Wadsworth OBGYNComment on above: ArrivedStart: 74-12-2289NIKQP-19 Vaccine ( season)COVID-19 Vaccine ( season)[facility] HealthcareStart: 53-46-3143Iinmyslxz vaccinationInfluenza Vaccine (#1)[facility] HealthcareStart: 06-09-2025 End: 05-79-7843Frawaobixasx / ancillary services kwuhlhsvgv52/27/2025 11:00 AM EDT Ancillary Procedure [facility] [address] [facility] [address] IXYC Kandace OBGYNStart: 05-25-2025 End: 72-00-4847Fpeoj fetoprotein, maternalAlpha fetoprotein, maternal Lab Routine 18 weeks gestation of ([facility]) Second trimester ([facility]) Expected: 05/25/2025 (Approximate), Expires: 07/25/2025[facility] Comment on above:Expected: 05/25/2025 (Approximate), Expires: 07/25/2025Start: 05-25-2025 End: 04-09-9099Llaesiheyrw [Units/volume] in Serum or PlasmaTSH Lab Routine Thyroid disease Expected: 05/25/2025 (Approximate), Expires: 05/25/2026[facility] HealthcareComment on above:Expected: 05/25/2025 (Approximate), Expires: 05/25/2026Start: 05-25-2025 End: 00-81-2881MB for pregnancyUS OB 14+ weeks anatomy scan Imaging Routine Screening, , for anatomic survey ([facility]) Expected: 05/25/2025, Expires: 08/25/2025[facility] HealthcareComment on above:Expected: 05/25/2025, Expires: 08/25/2025Start: 05-25-2025 End: 93-81-9429Exuxvht encounter procedureNOMS Kandace OBGYNComment on above: ArrivedStart: 05-14-2025 End: 02-44-4219UGR/RhABO/Rh Lab Routine Missed menses , unspecified gestational age ([facility]) Expected: 05/14/2025 (Approximate), Expires: 05/14/2026[facility] HealthcareComment on above:Expected: 05/14/2025 (Approximate), Expires: 05/14/2026Start: 05-14-2025 End: 89-25-2303Jvtrk type and Indirect antibody screen panel - BloodType and screen Lab Routine Missed menses , unspecified gestational age ([facility]) Expected: 05/14/2025 (Approximate), Expires: 05/14/2026[facility] Work Phone: Comment on above:Expected: 05/14/2025 (Approximate), Expires: 05/14/2026Start: 05-14-2025 End: 83-47-4346Asfaj of abuse panel - Urine by Screen methodRapid drug screen, urine Lab Routine , unspecified gestational age ([facility]) Encounter for supervision of normal first in first trimester ([facility]) Expected: 05/14/2025 (Approximate), Expires: 05/14/2026[facility] HealthcareComment on above: Expected: 05/14/2025 (Approximate), Expires: 05/14/2026Start: 10-22-2024 End: 80-19-5597XF MFM with or without consultUS MFM with or without consult Imaging Routine History of oligohydramnios in prior , currently 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 History of delivery, currently Expected: 10/22/2024 (Approximate), Ex[facility]: [facility]24[facility] Work Phone: Comment on above:Expected: 10/22/2024 (Approximate), Expires: 10/22/2024Start: 10-17-2024 End: 94-59-2913UV MFM with or without consultUS MFM with or without consult Imaging Routine History of oligohydramnios in prior , currently Expected: 10/17/2024 (Approximate), Expires: 10/17/2024[facility] Work Phone: Comment on above:Expected: 10/17/2024 (Approximate), Expires: 10/17/2024Start: 46-40-8678Gfioq BMI ScreeningAdult BMI Screening [facility] SystemStart: 75-25-9474Ssheqtk ScreeningTobacco Screening [facility] SystemStart: 12-11-2023 End: 75-60-3107Rtmpmsy encounter qrxywelew76/28/2024 10:20 AM EST Routine [facility] OB [address] [facility] [address] Marco Bales, DO [address] [facility] [place] [address] NOMS BCP OBStart: 11-27-2023 End: 96-40-8049KNS panel - Blood by Automated countCBC Lab Routine Diabetes mellitus screening Expected: 11/27/2023 (Approximate), Expires: 11/27/2024[facility] Work Phone: comment on above:Expected: 11/27/2023 (Approximate), Expires: 11/27/2024Start: 11-27-2023 End: 74-24-2592Unehfmxkkdi of glucose 1 hour after glucose challenge for glucose tolerance testGlucose tolerance, 1 hour Lab Routine Diabetes mellitus screening Expected: 11/27/2023 (Approximate), Expires: 11/27/2024[facility] HealthcareComment on above:Expected: 11/27/2023 (Approximate), Expires: 11/27/2024Start: 11-27-2023 End: 83-74-1898EB biophysical profile w non stress testUS biophysical profile w non stress test Imaging Routine History of miscarriage History of oligohydramnios Expected: 11/27/2023 (Approximate), Expires: 11/27/2024[facility] HealthcareComment on above:Expected: 11/27/2023 (Approximate), Expires: 11/27/2024Start: 11-27-2023 End: 34-04-0654VS for pregnancyUS OB SCAN FOR GROWTH Imaging Routine History of miscarriage History of oligohydramnios Expected: 11/27/2023 (Approximate), Expires: 11/27/2024[facility] HealthcareComment on above:Expected: 11/27/2023 (Approximate), Expires: 11/27/2024Start: 11-19-2023 End: 24-93-4893Kzgixqy encounter gepjbqsla14/06/2024 9:[address] [facility] - Ultrasound [address] [place] [address] AowTnbixsTrihealth [facility] - UltrasoundStart: 10-29-2023 End: 66-49-6312Veyqpah encounter ogpvwigji03/16/2024 9:[address] [facility] - Ultrasound [address] [place] [address] [address]aoJ[address]lnqxSt[address] [facility] - UltrasoundStart: 10-16-2023 End: 98-77-1849Gcmfpun encounter xlcvnbthi90/03/2024 1:00 PM EST Office Visit [facility] at [facility] [address] [place] [address] Haseeb Nice MD [address], [address] [place] [address], [id number] [facility]art: 99-85-3705Rnzohtqlfi hospital visit by physician 10/16/2023 11:30 AM EST Hospital Encounter [facility] US Imaging [address] [place] [address] [phone] Valley Hospital - [facility] US ImagingStart: 33-41-3568Ajkrstghw vaccinationInfluenza Vaccine [facility] SystemStart: 39-06-4883WUX Vaccines (1 - 3-dose SCDM series)HPV Vaccines (1 - 3-dose SCDM series)[facility] HealthcareStart: 89-19-9835Adhcwfndb for malignant neoplasm of cervixPap SmearDetwiler Memorial Hospital SystemStart: 2012 DTaP,Tdap and Td Vaccines (1 - Tdap)DTaP,Tdap and Td Vaccines (1 - Tdap) [facility] SystemStart: 10-83-9448Arkkuxiot B Vaccines (1 of 3 - 19+ 3- dose series)Hepatitis B Vaccines (1 of 3 - 19+ 3-dose series)[facility] Start: 54-45-7700Bqziv BMI ScreeningAdult BMI ScreeningDetwiler Memorial Hospital System Start: 49-83-0272Suduows of varicella vaccinationVaricella Vaccines (1 of 2 - 13+ 2-dose series)[facility] HealthcareStart: 84-77-4772Vurcccircs ScreeningDepression ScreeningDetwiler Memorial Hospital SystemStart: 39-58-7315Rdodmlt ScreeningTobacco ScreeningDetwiler Memorial Hospital SystemStart: 92-20-4793OGpS/Tdap/Td Vaccines (1 - Tdap)DTaP/Tdap/Td Vaccines (1 - Tdap)[facility] HealthcareStart: 80-20-1228PEK Vaccines (1 of 1 - Standard series)MMR Vaccines (1 of 1 - Standard series)[facility] HealthcareStart: 28-09-2190Ntcyqdk CounselingTobasouthwestern medical center – [facility] CounselingAvita Health System Ontario HospitalBacteria identified in Urine by CultureUrine culture Microbiology Routine Missed menses Ordered: 05/14/2025[facility] HealthcareComment on above:Ordered: 05/14/2025BC W Auto Differential panel - BloodCBC and differential Lab Routine Missed menses , unspecified gestational age ([facility]) Ordered: 05/14/2025[facility] HealthcareComment on above:Ordered: 05/14/2025BC W Auto Differential panel - BloodCBC and differential Lab Routine 29 weeks gestation of ([facility]) Ordered: 08/09/2025[facility] Healthcare Work Phone: [...] Missed menses , unspecified gestational age ([facility]) Ordered: 05/14/2025[facility] HealthcareComment on above:Ordered: 05/14/2025Hemoglobin A1c/Hemoglobin.total in BloodHemoglobin A1c Lab Routine 29 weeks gestation of ([facility]) Ordered: 08/09/2025 [facility] HealthcareComment on above:Ordered: 08/09/2025Hepatitis B virus surface Ag [Presence] in Serum or Plasma by ImmunoassayHepatitis B surface antigen Lab Routine Missed menses , unspecified gestational age ([facility]) Ordered: 05/14/2025[facility] HealthcareComment on above:Ordered: 05/14/2025Hepatitis C virus Ab [Presence] in Serum or Plasma by ImmunoassayHepatitis C antibody Lab Routine Missed menses , unspecified gestational age ([facility]) Ordered: 05/14/2025[facility] HealthcareComment on above:Ordered: 05/14/2025HIV-1/HIV-2 antigen/antibody combination immunoassayHIV-1 and HIV-2 antibodies Lab Routine Missed menses , unspecified gestational age ([facility]) Ordered: 05/14/2025[facility] HealthcareComment on above:Ordered: [...] Routine Missed menses , unspecified gestational age ([facility]) Ordered: 05/14/2025[facility] HealthcareComment on above: Ordered: 05/14/2025Rubella antibody, IgGRubella antibody, IgG Lab Routine Missed menses , unspecified gestational age ([facility]) Ordered: 05/14/2025[facility] HealthcareComment on above:Ordered: 05/14/2025SURESWAB(R) ADVANCED VAGINITIS PLUS, TMASURESWAB(R) ADVANCED VAGINITIS PLUS, TMA Pathology and Cytology Routine Vaginal discharge Ordered: 05/25/2025[facility] Work Phone: comment on above:Ordered: 05/25/2025 End: 56-47-1936Ywzcneytqza [Units/volume] in Serum or PlasmaTSH Lab Routine Acquired autoimmune hypothyroidism monthy for 3 Occurrences starting 07/21/2025 until 10/21/2025[facility] Work Phone: comment on above:monthy for 3 Occurrences starting 07/21/2025 until 10/21/2025 Payers DatePayer CategoryPayerPolicy [id number] [id number] Health Insurance [employer] [id number] 2..[id number] 2.0.1.665384.3.57[id number] 2.0.1.282938.3.57[id number] 2..1.282716.3.57[id number] 2.0.1.775505.3.57[id number] 2.840.1.234347.3.57[id number] 2.16.840.1.573689.3.57[id number] 2.840.1.419033.3.579.2.33046-46-7753Nnyemvc2805687 2.840.1.479114.3.579.2.22138-10-8592Sloapbl9700727 2.840.1.251964.3.579.2.19757-75-7561Yxarrqw5576511 2.840.1.737073.3.579.2.89770-89-4399Dgvowba3364381 2.840.1.737896.3.579.2.79865-13-7872Hdysmfv0889931 2.840.1.252734.3.579.2.709079-98-8966Vufajwj0242470 2.840.1.054487.3.579.2.211283-27-4147Hahpzsm00842688 2.840.1.142883.3.579.2.450556-89-6674Udswijf1961101 2..1.803007.3.579.2.289686-21-4198Niuppju83791634 2.840.1.326141.3.579.2.791334-67-8368Cqbzlrj83487810 2.840.1.866521.3.579.2.724245-62-9348Xjnaadm54015748 2.840.1.789221.3.579.2.149460-05-0782Wctxgqo48090395 2.840.1.993044.3.579.2.726901-61-6019Uzimxvj16573719 2.0.1.959343.3.579.2.250935-75-5488Dnqtenv28843479 2.840.1.469680.3.579.2.107439-55-2308Tenjqdt92199387 2..840.1.455626.3.579.2.873987-83-0212Wvbsnqe54939582 2.0.1.205350.3.579.2.516101-59-2658Xkqpzsx24618845 2.0.1.027323.3.579.2.030691-62-0956Pdaq-nsm35076426539-65-4503Zezxxki 29356083715410-22-0966Vjzqtce66371985989 Social History DateTypeDetailFacilityStart: 73-72-9278Cexqvwc smoking status NHISTobacco smoking consumption unknownPro[facility] SystemStart: 95-47-6662Ecpymosdp [facility] SystemStart: 59-34-0785Yqy Assigned At BirthFeGaebler Children's Center HealthcareStart: 30-72-3476Obrvwg identityIdentifies as female gender (finding) [facility] HealthcareStart: 14-78-7377Pnzeri orientationHeterosexual (finding)[facility] HealthcareStart: 03-23-2019 End: 55-11-2014Ozhgajd of Social functionDetwiler Memorial Hospital SystemStart: 03-23-2019 End: 08-38-1226Zrcckzg InstabilityDetwiler Memorial Hospital SystemStart: 12-26-2022 Housing [facility]ability[facility] SystemStart: 04-13-5001Zxu Assigned At BirthNot on fileDetwiler Memorial Hospital SystemStart: 36-92-9528Hmyjsxi smoking status NHISSmokes tobacco dailyDetwiler Memorial Hospital SystemHistory of tobacco use Cigarette SmokerDetwiler Memorial Hospital SystemStart: 46-64-8366Gbdoumf use and exposure Smokeless tobacco non-userDetwiler Memorial Hospital SystemStart: 10-16-2023 End: 60-11-9986Sdmdjcg intakeEx-drinker (finding)[facility] System Goals DatePatient GoalDesired Activity/StatePersonal health goal Clinical Notes 03-16-2022 to 08-23-2025 Note Date & GwplUkaqBxdzcjjv68-12-1817 History of Present illness Narrative* Marco AcevedoDO [...] nursing note reviewed. Exam conducted with a card checker present. Vitals: Estimated body mass index is 26.53 kg/m as calculated from the following: Height as of 04/02/24: 5' 6 . Weight as of this encounter: 164 lb 6.4 oz. BP: 108/62 No LMP recorded. Patient is . Assessment/Plan Encounter Diagnosis: ICD-10-CM 1. Third trimester ([facility]) Z34.93 2. 31 weeks gestation of ([facility]) Z3A.31 POCT urinalysis dipstick manually resulted Return [...] [3] No Known Allergies documented in this encounterI-70 Community HospitalYexxwnpzrc41-06-5691 History of Present illness Narrative* ABIGAIL Chinchilla [...] nursing note reviewed. Exam conducted with a card checker present. Vitals: Estimated body mass index is 25.74 kg/m as calculated from the following: Height as of 04/02/24: 5' 6 . Weight as of this encounter: 159 lb 8 oz. BP: 110/52 No LMP recorded. Patient is . Assessment/Plan ICD-10-CM 1. Third trimester ([facility]) Z34.93 2. 29 weeks gestation of ([facility]) Z3A.29 CBC and differential Hemoglobin A1c [...] behalf of: ABIGAIL Chinchilla documented in this encounterI-70 Community HospitalVbwenjaujq86-60-1441 History of Present illness Narrative* Drew Solorio [...] nursing note reviewed. Exam conducted with a card checker present. Vitals: Estimated body mass index is 24.29 kg/m as calculated from the following: Height as of 04/02/24: 5' 6 . Weight as of this encounter: 150 lb 8 oz. BP: 110/60 No LMP recorded. Patient is . ASSESSMENT & PLAN ICD-10-CM 1. Acquired autoimmune hypothyroidism E06.3 TSH 2. Second trimester ([facility]) Z34.92 POCT urinalysis dipstick manually resulted 3. 26 weeks gestation of ([facility]) Z3A.26 4. Depression affecting ([facility]) O99.340 citalopram (CeleXA) 20 MG tablet [...] of: Drew Solorio NP documented in this encounterI-70 Community HospitalSsdjisyhte89-58-3651 History of Present illness Narrative* Deepika Frye [...] nursing note reviewed. Exam conducted with a card checker present. Vitals: Estimated body mass index is 23.91 kg/m as calculated from the following: Height as of 04/02/24: 5' 6 . Weight as of this encounter: 148 lb 1.9 oz. BP: 100/60 No LMP recorded. Patient is . ASSESSMENT & PLAN ICD-10-CM 1. 22 weeks gestation of ([facility]) Z3A.22 POCT urinalysis dipstick manually resulted 2. Second trimester ([facility]) Z34.92 POCT urinalysis dipstick manually resulted 3. [...] of: Marco Bales DO documented in this encounterI-70 Community HospitalGzijlflzxl92-34-6429 History of Present illness Narrative* Deepika Frye [...] nursing note reviewed. Exam conducted with a card checker present. Vitals: Estimated body mass index is 22.4 kg/m as calculated from the following: Height as of 04/02/24: 5' 6 . Weight as of this encounter: 138 lb 12.8 oz. BP: 100/60 No LMP recorded. Patient is . ASSESSMENT & PLAN ICD-10-CM 1. 18 weeks gestation of ([facility]) Z3A.18 POCT urinalysis dipstick manually resulted Alpha fetoprotein, maternal Alpha fetoprotein, maternal 2. Second trimester ([facility]) Z34.92 POCT urinalysis dipstick manually resulted Alpha fetoprotein, maternal Alpha fetoprotein, maternal 3. Well woman exam with routine gynecological exam Z01.419 Pap Smear HPV DNA probe, amplified 4. Screening, , for anatomic survey ([facility]) Z36.89 US OB 14+ weeks anatomy scan US OB 14+ weeks anatomy scan 5. Exposure to STD Z20.2 CHLAMYDIA TRACHOMATIS (GENITO/STI) Neisseria gonorrhea DNA probe, direct 6. Vaginal discharge N89.8 SURESWAB(R) ADVANCED VAGINITIS PLUS, TMA 7. Thyroid disease E07.9 TSH TSH Return OB/Annual Exam: Patient presents today for a annual exam/routine obstetrics appointment. Patient is currently [id number]. Pt advised to have labs drawn. Pap [...] of: Marco Bales DO documented in this encounterI-70 Community HospitalSdkirkxyfc97-57-3313 History of Present illness Narrative* Sana Rogers [...] 11/2016 22w0d F Vag-Spont ND Complications: Oligohydramnios ([facility]) 4 Term 10/25/14 38w0d 6 lb 1 [...] urinalysis dipstick manually resulted Positive urine test ([facility]) , unspecified gestational age ([facility]) - Type and screen; Future - ABO/Rh; Future - CBC and differential - Hemoglobin A1c - RPR - Rubella antibody, IgG - Hepatitis B surface antigen - Hepatitis C antibody - HIV-1 and HIV-2 antibodies - Rapid drug screen, urine; Future Encounter for supervision of normal first in first trimester ([facility]) - Rapid drug screen, urine; Future Nausea and vomiting in ([facility]) - ondansetron ODT (Zofran-ODT) 4 MG disintegrating [...] by: Sana Rogers LPN documented in this encounterI-70 Community HospitalBsjinnukih36-13-9914 History of Present illness Narrative* ABIGAIL Chinchilla [...] patient Smoker Thyroid disease ([facility]) No family history on file. Social [...] behalf of: ABIGAIL Chinchilla documented in this encounterI-70 Community HospitalHsdkwyqbcr69-19-8498 Miscellaneous Notes* Telephone Encounter - Rachelle Mullen LPN - 10/22/2023 12:28 PM EST Please call us back to schedule an ultrasound next week. [facility] Telephone encounter Note* Telephone Encounter - Rachelle Mullen LPN - 10/22/2023 12:28 PM EST Please call us back to schedule an ultrasound next week. [facility]01-[facility] History of Present illness Narrative* Haseeb [...] to increase p.o. hydration. documented in this encounterAv[facility] History of Present illness Narrative* Yuliet [...] Yes Have you been seen here at [facility] in a previous ? No Recent ER visits or hospitalizations? No Bring blood sugar log or meter with you today? (Please bring them with you for every visit at [facility]) N/A Traveled outside the country [...] Yes Not In System Ref Prov vit no.603-tyqk-uyppz acid ( VITAMIN) 27 mg iron- 800 [...] continue with routine care in your office [facility], the CDC, and other organizations representing maternal and public health professionals recommend that , , and lactating people and those considering receive the COVID-19 vaccination. Vaccination is the best method to reduce maternal and complications of SARS-CoV-2 infection. This document was created with [employer] technology. Though I make every effort to [...] the [place]?Board of?Obstetrics and?Gynecology?as well as?James s abbreviations. The above plan of care was based solely on the diagnoses for which a consultation was requested. ?More frequent testing may be indicated based on her other medical/obstetrical conditions. The management of other or medical conditions is beyond the scope of requested consultation and will c christianue to be followed by the primary microsoft infrastructure consultant or primary care provider. Thank you for allowing me to participate in her care. Please contact me if you have any concerns. documented in this encounterAv[facility]06-03-2022 NotePROCEDURE: XR SHOULDER RT 2V or > HISTORY: Impingement syndrome of right shoulder region ; acute right shoulder pain, no known injury COMPARISON: None. FINDINGS: BONES:No fracture, acute abnormality, or significant arthropathy. SOFT TISSUES:No visible soft tissue swelling. EFFUSION:None visible. OTHER: Negative. IMPRESSION: 1. Normal examination. Electronically authenticated by: GENI CABRAL Date: 2022-03-16 18:16[facility]* Diagnosis Second trimester state, incidental with normal glucose tolerance test (GTT) Diabetes mellitus screening Screening for diabetes mellitus History of miscarriage Personal history of other genital system and obstetric disorders History of oligohydramnios documented in this encounter [facility] HealthcareEvaluation [facility]* Diagnosis High-risk in second trimester- Primary History of oligohydramnios in prior , currently with other poor obstetric history 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 20 weeks gestation of documented in this encounter [facility] SystemEvaluation note* Diagnosis History of oligohydramnios in prior , currently - Primary with other poor obstetric history documented in this encounter [facility]* Diagnosis History of oligohydramnios in prior , currently - Primary with other poor obstetric history 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 History of delivery, currently with history of pre-term labor documented in this encounter [facility] SystemEvaluation note* Diagnosis Missed menses Positive urine test ([facility]) , unspecified gestational age ([facility]) Encounter for supervision of normal first in first trimester ([facility]) Nausea and vomiting in ([facility]) Unspecified vomiting of , unspecified as to episode of care documented in this encounter [facility] HealthcareEvaluation note* Diagnosis 18 weeks gestation of ([facility]) Second trimester ([facility]) state, incidental Well woman exam with routine gynecological exam Routine gynecological examination Screening, , for anatomic survey ([facility]) Encounter for anatomic survey Exposure to STD Vaginal discharge Leukorrhea, not specified as infective Thyroid disease Unspecified disorder of thyroid documented in this encounter [facility] HealthcareEvaluation note* Diagnosis 22 weeks gestation of ([facility]) Second trimester ([facility]) state, incidental Thyroid disease Unspecified disorder of thyroid Diabetes mellitus screening Screening for diabetes mellitus documented in this encounter [facility]Evaluation note* Diagnosis Acquired autoimmune hypothyroidism- Primary Other specified acquired hypothyroidism Second trimester ([facility]) state, incidental 26 weeks gestation of ([facility]) Depression affecting ([facility]) documented in this encounter [facility] HealthcareEvaluation note* Diagnosis size inconsistent with dates ([facility])- Primary Third trimester ([facility]) state, incidental 29 weeks gestation of ([facility]) History of miscarriage Personal history of other genital system and obstetric disorders History of oligohydramnios Thyroid disease Unspecified disorder of thyroid Acquired autoimmune hypothyroidism Other specified acquired hypothyroidism documented in this encounter [facility]Evaluation [facility]* Diagnosis Third trimester ([facility]) state, incidental 31 weeks gestation of ([facility]) documented in this encounter [facility] HealthcareInstructionsNot on filedocumented in this encounterProMediwa Health SystemInstructionsNot on filedocumented in this encounterProMediGenesis Hospital SystemInstructionsNot on filedocumented in this encounterProMedica Kindred Healthcare SystemInstructionsNot on filedocumented in this encounterDetwiler Memorial Hospital System InstructionsNot on filedocumented in this encounterDetwiler Memorial Hospital System Summary Purpose Family History [...] of oligohydramnios in prior , currently Procedures [facility] with or without consult Haseeb Nice MD [address], [address] [place] [id number] [facility] Maternal [facility] [address] [place] [address] Referral IDStatusReasonStwest sayville DateExpiration DateVisits RequestedVisits [id number] Review/[id number] / Procedures Referred By ContactReferred To [facility] Diagnoses History of oligohydramnios in prior , currently 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 History of delivery, currently Procedures [facility] with or without consult Haseeb Nice MD [address], [address] [place] [id number] [facility]aternal [facility] [address] [place] [address] Referral IDStatusReasonUnion [place] DateExpiration DateVisits RequestedVisits [id number] Review/ Additional Source Comments INFORMATION SOURCE (unrecogn ized section and content) DATE CREATED AUTHOR 01/31/2023 [facility] DATE CREATED AUTHOR AUTHOR'S ORGANIZ ATION 10/20/2023 [facility] DATE CREATED AUTHOR AUTHOR'S ORGANIZ ATION 11/24/2023 [facility] DATE CREATED AUTHOR AUTHOR'S ORGANIZ ATION 08/26/2025 [facility] EPIC Reason for Visit (unrecogniz ed section and content) ReasonCommentsRoutine VisitReasonCommentsHx OligoHx Multiple MiscarriagesHypothyroidismReasonCommentsAmenorrheaReasonCommentsRoutine VisitWell Women VisitSTI Screening Care Teams (unrecognized sec tion and content) Team MemberRelationshipSpecialtyStart DateEnd Date Marco Bales, DO [address], [facility] PCP [facility]01/13/24Team MemberRelationshipSpecialtyStart DateEnd Date Marco Bales, DO [address], [place] [address] [facility]01/13/24Team MemberRelationshipSpecialtyStart DateEnd Date Marco Bales, DO [address], [place] [address] [facility]01/13/24Team MemberRelationshipSpecialtyStart DateEnd Date Marco Bales, DO [address], [place] [address] PCP [facility]01/13/24Team MemberRelationshipSpecialtyStart DateEnd Date Marco Bales, DO [address], [place] [address] [address]11/06Team MemberRelationshipSpecialtyStart DateEnd Date Marco Bales, DO [address], [facility]11 [place] [id number] MemberRelationshipSpecialtyStart DateEnd Date Marco Bales, DO [address] [place] [address] [place] [address]Te MemberRelationshipSpecialtyStart DateEnd Date Marco Bales, DO [address] [place], [facility] [address]11/06Te MemberRelationshipSpecialtyStart DateEnd Date Marco Bales, DO [address] [place], [facility] [place] [address]Te MemberRelationshipSpecialtyStart DateEnd Date Marco Bales, DO [address] [place], [place] [address], [facility] [place] [address]Te MemberRelationshipSpecialtyStart DateEnd Date Marco Bales, DO [address] [place], [facility] [address]11/06Te MemberRelationshipSpecialtyStart DateEnd Date Marco Bales, DO [address] [place], [facility] [address]11/06Te MemberRelationshipSpecialtyStart DateEnd Date Marco Bales, DO [address] [place] [address] PCP [place] [phone] MemberRelationshipSpecialtyStart DateEnd Date Marco Bales, DO [address] [place] [address] PCP [place] [address]Team MemberRelationshipSpecialtyStart DateEnd Date Marco Bales, DO [address] [place] [address] [facility]01/13/24 FOR RECORDS PERTAINING TO PATIENTS WHO [...] BE BASED ON THE PRIMARY CLINICAL RECORDS. [facility] [employer] [facility]. provides no warranty or guarantee of the accuracy or completeness of information in this document.
[2025-09-21 17:11] VITALS: BP 118/56; PULSE 109
[2025-09-21] MEDS: BETAMETHASONE ACE/BETAMETHASONE SOD PHOS 30 MG/5 ML 12 MG IM (17:37)
== END 2025-09-21 17:41 ==
LOC: FBCO 17:08 → FBC 17:08
PROVIDERS: Visit Provider Obstetrics & Gynecology
DX: O36.8130 Decreased fetal movements, third trimester, not applicable or unspecified (principal); Z3A.35 35 weeks gestation of pregnancy
CPT/HCPCS: 59025; 96372; J0702

== ENCOUNTER 2025-09-23 09:33 | Outpatient (OUT) | payer OTHER, SELFPAY ==
[2025-09-23 09:39] VITALS: BP 106/56; PULSE 93
--- OUTSIDE RECORDS SUMMARY | 2025-09-23 09:47 | XMS_ITS | CCD ---
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 Name Role Phone RUSSELL, DR DEBBIE Mohan [...] Primary Care Unavailable MARCH ., DR MARIS Vial Consulting Unavailable MARCH ., DR MARIS Vail [...] tablet (8 sources)Serotonin Reuptake InhibitorStart: 07-21-2025 End: 09-63-7840mych 1 tablet by mouth once dailycitalopram (CeleXA) 20 MG tablet Indications: Depression affecting (HCC) Take 1 tablet (20 mg) by mouth Daily 30 tablet 5 07/21/2025 01/17/2026 Activelevothyroxine sodium 0.1 mg oral tablet (20 sources)l-ThyroxineStart: 66-11-9041cwgc 1 tablet by mouth once daily levothyroxine (Synthroid, Levoxyl) 100 MCG tablet Indications: Thyroid disease TAKE 1 TABLET (100 MCG) BY MOUTH 1 (ONE) TIME EACH DAY AT THE SAME TIME 30 tablet 5 04/15/2025 ActiveStart: 10-08-2023 End: 57-83-8398eoyv 1 tablet by mouth once dailylevothyroxine (Synthroid, Levoxyl) 100 MCG tablet Indications: Thyroid disease Take 1 tablet (100 mcg) by mouth 1 (one) time each day at the same time 30 tablet 5 10/08/2023 09/24/2024 Discontinuednorethindrone 0.35 mg oral tablet (1 source)Start: 04-22-2024 End: 08-03-7068ecrf 1 tablet by mouth once dailynorethindrone (Micronor) 0.35 MG tablet Indications: Uses control Take 1 tablet (0.35 mg) by mouth Daily 28 tablet 11 04/22/2024 05/14/2025 Discontinued (Other)omeprazole 20 mg delayed release oral capsule (6 sources)Proton Pump InhibitorStart: 01-27-2024 End: 89-91-2645xgqv 2 capsules by mouth before mealtimeomeprazole (PriLOSEC) [address] capsule Indications: Heartburn TAKE 2 CAPSULES (40 MG) BY MOUTH IN THE MORNING. TAKE BEFORE MEALS. DO NOT CRUSH OR CHEW.. 180 capsule 3 04/24/2024 05/14/2025 Discontinued (Other)Start: 10-08-2023 End: 07-04-8369jmrc 1 capsule by mouth before mealtimeomeprazole (PriLOSEC) [address] capsule Indications: Heartburn Take 1 capsule (20 mg) by mouth in the morning. Take before meals. Do not crush or chew.. 30 capsule 11 10/08/2023 01/27/2024 Discontinued (Reorder)ondansetron 4 mg disintegrating oral tablet (17 sources)Serotonin-3 Receptor AntagonistStart: 05-14-2025 End: 52-57-1305ftvh 1 tablet by mouth every six hours for nauseaondansetron ODT (Zofran-ODT) 4 MG disintegrating tablet Indications: Nausea and vomiting in ([facility]) Take 1 tablet (4 mg) by mouth every 6 (six) hours if needed for nausea or vomiting 30 tablet 2 05/14/2025 06/13/2025 Active End: 75-23-3182wotn 1 tablet by mouth every six hours as neededondansetron ODT (Zofran-ODT) 4 MG disintegrating tablet Take 4 mg by mouth every 6 (six) hours if needed 04/02/2024 Discontinuedprenatal vit no.895-dssx-amukz acid ( VITAMIN) 27 mg iron- 800 mcg tablet (7 sources)take 1 tablet by mouth in the morningprenatal vit no.249-jguy-upzhs acid ( VITAMIN) 27 mg iron- 800 mcg tablet Take 1 tablet by mouth in the morning. 0 ActivePrenatal Vit-Fe Fumarate-FA (M- Plus) 27-1 MG tablet (19 sources)Start: 42-28-2786fchz 1 tablet by mouth once daily in the morning Vit-Fe Fumarate-FA (M-Sindi Plus) 27-1 MG tablet Indications: Missed menses TAKE 1 TABLET BY MOUTH EVERY DAY IN THE MORNING 30 tablet 11 01/25/2025 Activeprogesterone (FIRST-PROGESTERONE VGS) 200 mg suppository (7 sources)progesterone (FIRST-PROGESTERONE VGS) 200 mg suppository Insert 1 suppository (200 mg total) into the vagina nightly. 0 Active Completed/Discontinued Medications MedicationDrug Class(es)DatesSig (Normalized)Sig (Original)ferrous sulfate (3 sources) End: 59-49-4634pfwu 1 tablet by mouth in the morningFerrous Sulfate (IRON PO) Take 1 tablet by mouth in the morning. 04/02/2024 Discontinuedmetoclopramide 10 mg oral tablet (1 source)Dopamine-2 Receptor AntagonistStart: 01-28-2024 End: 29-32-1843naum 1 tablet by mouth in the morning, then take 1 tablet by mouth in the evening, then take 1 tablet by mouth at bedtimemetoclopramide (Reglan) 10 MG tablet Indications: Heartburn during in third trimester ([facility]) Take 1 tablet (10 mg) by mouth in the morning and 1 tablet (10 mg) in the evening and 1 tablet (10 mg) before bedtime. 90 tablet 2 01/28/2024 04/02/2024 DiscontinuedPrenatal Vit-Fe Fumarate-FA ( Plus/Iron) 27-1 MG tablet (5 sources)Start: 10-08-2023 End: 80-83-7629flks 1 tablet by mouth in the morningPrenatal Vit-Fe Fumarate-FA ( Plus/Iron) 27-1 MG tablet Indications: Missed menses Take 1 tablet by mouth in the morning. 30 tablet 11 10/08/2023 08/27/2024 DiscontinuedStart: 10-08-2023 End: 77-80-5389vouk 1 tablet by mouth in the morningPrenatal Vit-Fe Fumarate-FA ( Plus/Iron) 27-1 MG tablet Indications: Missed menses Take 1 tablet by mouth in the morning. 30 tablet 11 10/08/2023 10/07/2024 Active Problems Active Problems Problem ClassificationProblemDateDocumented DateEpisodic/ChronicAnxiety disorders (20 sources)Generalized anxiety disorder; Translations: [Generalized anxiety disorder]Onset: 000904-52-4530AyswwuaWyolaqkow hypertension (1 source)Essential (primary) hypertension; Translations: [ESSENTIAL PRIMARY HYPERTENSION]Onset: 29-30-6725NbkijnaGsgirhoqwv during ; abruptio placenta; placenta previa (7 sources)Threatened ; Translations: [Hemorrhage in early , unspecified]Onset: 48-61-1264QukifbtlMymuyhwotzbty and screening for infectious disease (3 sources)Encounter for immunization; Translations: [Exposure to sexually transmissible disorder]Onset: 069765-33-2342IqfelkpxYrsxcqszyo disorders (1 source)Hormone replacement therapy; Translations: [HORMONE REPLACEMENT THERAPY]Onset: 27-43-4055TwnqrxmxBeiemzvbj disorders (5 sources)Irregular menstruation, unspecified; Translations: [Missed period] Onset: 46-23-2715LgrclfaXcuuq aftercare (1 source)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; Translations: [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 DRUG THERAPY]Onset: 15-66-8576EwddpoydJntse complications of ; puerperium affecting management of mother (1 source)Endocrine, nutritional and metabolic diseases complicating childbirth; Translations: [ENDOCRN NUTR MET DZ COMP CHILDBIRTH]Onset: 90-63-5190Gyengsuo Other complications of (1 source)Endocrine, nutritional and metabolic diseases complicating , first trimester; Translations: [ENDOCRN NUTR MET DZ COMP PG 1ST TRI]Onset: 15-67-9974KwfgvjqlXhphj complications of (1 source)Smoking (tobacco) complicating , first trimester; Translations: [SMOKING TOBACCO COMP JTUY8KC TRI]Onset: 13-93-9448NtigwocvJmlhi complications of (1 source)Other viral diseases complicating , first trimester; Translations: [OTH VIRAL DZ COMP PREGFIRST TRI]Onset: 66-59-8427JcghorrjCdohf complications of (2 sources) care for patient with recurrent loss, unspecified trimester; Translations: [ care for patient with recurrent loss, unspecified trimester]Onset: 80-43-0265IumtxmmuQcnqo complications of (1 source)Supervision of high risk , unspecified, second trimester; Translations: [Supervision of high risk , unspecified, second trimester]Onset: 22-86-5073MibczgjoOfple complications of (2 sources)Supervision of with other poor reproductive or obstetric history, unspecified trimester; Translations: [Supervision of with other poor reproductive or obstetric history, unspecified trimester]Onset: 30-93-1477WgtpwqriSqnla complications of (2 sources)Endocrine, nutritional and metabolic diseases complicating , second trimester; Translations: [Endocrine, nutritional and metabolic diseases complicating , second trimester]Onset: 98-58-3932NjjhhffqAsoze complications of (1 source)Supervision of other high risk pregnancies, unspecified trimester; Translations: [Supervision of other high risk pregnancies, unspecified trimester]Onset: 34-51-9606WzvfqcqaLgjrp complications of (1 source)Vomiting of , unspecified; Translations: [Unspecified vomiting of , unspecified as to episode of care or not applicable] 68-60-1195JnydveteBkjjq complications of (2 sources)Depressive disorder in mother complicating ; Translations: [Other mental disorders complicating , unspecified trimester]07-21-2025 EpisodicOther complications of (2 sources) size does not accord with dates; Translations: [Uterine size- date discrepancy, unspecified trimester]60-10-4225SqrnivdrZcbur female genital disorders (2 sources)Vaginal discharge; Translations: [Other specified noninflammatory disorders of vagina]94-91-9973SzzdajcgBdbmu and delivery including normal (18 sources)Encounter for supervision of normal , unspecified, first trimester; Translations: [Second trimester ]Onset: EpisodicOther screening for suspected conditions (not mental disorders or infectious disease) (10 sources)Encounter for other specified screening; Translations: [Encounter for screeningfor cervical length]Onset: 10-16-2023 77-46-4658GsivgwtiHfzofccu codes; unclassified (1 source)Less than 8 weeks gestation of ; Translations: [< 8 WEEKS GESTATION ]Onset: 50-44-8839TybygjaxCrwxcpmv codes; unclassified (1 source)20 weeks gestation of ; Translations: [20 weeks gestation of ]Onset: 59-07-7415ZyospyypHggaejhk codes; unclassified (4 sources)H/O: miscarriage; Translations: [Personal history of other complications of , childbirth and the puerperium]51-74-8424Yvyvhrnm Residual codes; unclassified (2 sources)Gestation period, 18 weeks; Translations: [18 weeks gestation of ]66-74-4995InvpztyjDsgzzfyq codes; unclassified (2 sources)Gestation period, 22 weeks; Translations: [22 weeks gestation of ]35-69-3524XgtsmmjqUhoedpfv codes; unclassified (2 sources)Gestation period, 26 weeks; Translations: [26 weeks gestation of ]38-18-1128QyxdxxleLkuznada codes; unclassified (2 sources)Gestation period, 29 weeks; Translations: [29 weeks gestation of ]26-58-1052KzmbahuzCttozeog codes; unclassified (2 sources)Gestation period, 31 weeks; Translations: [31 weeks gestation of ]80-36-6464OtmnladbRsrkaxakx-related disorders (1 source)Nicotine dependence, cigarettes, uncomplicated; Translations: [NICOTINE DEPEND CIGARETTES UNCOMP]Onset: 93-20-0113XlvnwvtBuqclug disorders (12 sources)Hypothyroidism, unspecified; Translations: [Hypothyroidism]Onset: 11-14-0087QtcdlsaYxsfzzfhypsg (1 source)PERSONAL HISTORY OF COVID-19; Translations: [PERSONAL HISTORY OF COVID-19]Onset: 89-98-2961Rvhrvauikrck (2 sources)COUGH, UNSPECIFIED; Translations: [COUGH, UNSPECIFIED]Onset: 68-94-7385Trmifycmajpn (1 source)Hx OligoOnset: 80-37-8298Tjiacbsabesq (20 sources)OB RemindersOnset: 839004-04-4912Ppuaz infection (1 source)COVID-19; Translations: [COVID-19]Onset: 01-09-2023 Past or Other Problems Problem ClassificationProblemDateDocumented DateEpisodic/ChronicE Codes: Fall (1 source)Unspecified fall, initial encounter; Translations: [UNSPECIFIED FALL INITIAL ENCOUNTER]Onset: 36-58-2765KwdpflqzLlrrmeumrraursbr hemorrhage (20 sources)Rectal hemorrhage; Translations: [Hemorrhage of anus and rectum] Onset: 523496-96-8384GtpnbtqaJmyhyqgedyju; infection of eye (except that caused by tuberculosis or sexually transmitteddisease) (1 source)Unspecified conjunctivitis; Translations: [UNSPECIFIED CONJUNCTIVITIS] Onset: 82-67-4185TaakvtusMovx wounds of head; neck; and trunk (4 sources)Laceration without foreign body of other part of head, initial encounter; Translations: [LAC W/O FBOTH PART HEAD INIT ENC]Onset: 10-20-2022 EpisodicOther complications of (1 source)High risk ; Translations: [Supervision of high risk , unspecified, second trimester]37-11-0417QbdkzseqVbgsz complications of (3 sources)H/O: ; Translations: [Supervision of with other poor reproductive or obstetric history, unspecified trimester]22-02-8780Ouxunaex Other complications of (2 sources)Hypothyroidism in ; Translations: [Endocrine, nutritional and metabolic diseases complicating , second trimester]10-16-2023 EpisodicOther complications of (1 source)H/O: premature delivery; Translations: [Supervision of other high risk pregnancies, unspecified trimester]26-76-8925AsvgkyreVaheh connective tissue disease (1 source)Impingement syndrome of right shoulder; Translations: [IMPINGEMENT SYNDROME RIGHT SHOULDER]Onset: 33-82-8285KhcoucuyMnjjt eye disorders (3 sources)Other specified disorders of eye and adnexa; Translations: [OTHER SPEC DISORDERS EYE AND ADNEXA]Onset: 96-23-1841UkutseumFsmlqctq codes; unclassified (20 sources)H/O: Disorder; Translations: [Personal history of other complications of , childbirth and the puerperium]Onset: 12-16-2023 36-10-5593NlxfbcsgQvsarcej codes; unclassified (1 source)Gestation period, 20 weeks; Translations: [20 weeks gestation of ]54-61-4962EqxmkmpaWxkcmwb disorders (20 sources)Disorder of thyroid gland; Translations: [Disorder of thyroid, unspecified]Onset: 134204-96-9495YujexgzzGrhgkibhezya (1 source)COUGH, UNSPECIFIED; Translations: [COUGH, UNSPECIFIED]Onset: 01-08-2023 Results Test NameValueInterpretationReference RangeFacilityALL CBC WITH AUTO DIFFon 55-35-1956NRPHQGNII ABSOLUTE AUTO0.0NOMS HealthcareBasophils/100 WBC (Bld)0.2 % 0.2 - 2.0 %NOMCox SouthEosinophils/100 WBC (Bld)0.5 %Low0.9 - 7.0 %[facility] CenterErythrocyte distribution width (RBC) [Ratio]13.0 %11.0 - 15.0 %NOMCox SouthHematocrit (Bld) [Volume fraction]29.4 %Low36.0 - 48.0 %[facility] CenterHemoglobin (Bld) [Mass/Vol]10.1 g/dLLow12.0 - 16.0 g/dLOzarks Medical Center IMMATURE GRANULOCYTES ABS AUTO0.04HighOzarks Medical CenterImmature granulocytes/100 WBC (Bld)0.4 %0.0 - 0.5 %[facility] CenterInterpretation and review of laboratory resultsAbnormalNOVA HealthcareLYMPHOCYTES ABSOLUTE AUTO1.7NOMS [facility] Lymphocytes/100 WBC (Bld)17.8 %Low20.5 - 60.0 %[facility] WashingtonH (RBC) [Entitic mass]32.9 pg26.7 - 34.0 pgNOParkland Health CenterHC (RBC) [Mass/Vol]34.4 g/dL29.9 - 35.2 g/dLMercy Hospital WashingtonV (RBC) [Entitic vol]95.8 fL81.0 - 99.0 fLOzarks Medical CenterMONOCYTES ABSOLUTE AUTO0.5NOVA HealthcareMonocytes/100 WBC (Bld)5.8 % 1.7 - 12.0 %[facility] CenterNEUTROPHILS ABSOLUTE AUTO7.0HighNOHannibal Regional Hospital Neutrophils/100 WBC (Bld)75.3 %High43.0 - 75.0 %NOMS HealthcarePlatelet mean volume (Bld) [Entitic vol]10.8 fL9.5 - 13.5 fLNOMS HealthcareTBH EO #0.1NOMS HealthcareTBH FQG140HUZO HealthcareTBH RBC3.07LowNOMS HealthcareTBH WBC9.3NOMS HealthcareCLINISYNCNOMS HealthcareUS OB FOLLOW UP TRANSABDOMINAL APPROACHon 62-93-0388GW OB FOLLOW UP TRANSABDOMINAL APPROACHFINDINGS: Comparison June [...] Delivery: 10/23/25 Gestational Age as of 08/09/2025: 90l7kNymlmknjby macro (dipstick) panel (U)on 44-34-6464Ccqyuelur, UANegativeNegative - 4(70) +++ mg/dLNOMS HealthcareBlood, UANegativeNegative [...] mg/dLNOMS HealthcareNOMS HealthcareUrinalysis macro (dipstick) panel (U)on 37-30-8222Rpomlfudx, UA NegativeNegative - 4(70) +++ mg/dLNOMS HealthcareBlood, [...] 1.03N[facility] Urobilinogen, UA0.20.2 - 12 mg/dLNOMS [facility] HospitalNOVA HealthcareUrinalysis macro (dipstick) panel (U)on 00-65-0492Idrardemb, UANegativeNegative - 4(70) +++ mg/dL NOMS HealthcareBlood, UANegativeNegative - 50 Felice/mcLNOMS HealthcareClarity, UA ClearNOMS HealthcareColor, UAYellowNOMS HealthcareGlucose, UANegativeNegative - 1999(110) ++++ mg/dLNOMS HealthcareInterpretation and review of laboratory resultsNormalNOMS HealthcareKetones, UANegativeNegative - 160(16) ++++ mg/dLNOMS HealthcareLeukocytes, UANegativeNegative - 500+++ Regina/mcLNOVA HealthcareNitrite, UANegativeNegative - PositiveNOMS HealthcarepH, UA65 - 9NOMS HealthcareProtein, UANegativeNegative - 2000(20) ++++ mg/dLNOMS HealthcareSpec Grav, UA1.0151 - 1.03NOMS HealthcareUrobilinogen, UA0.20.2 - 12 mg/dLNOSaint John's Health System HealthcareUrinalysis macro (dipstick) panel (U)on 63-77-6613Wuirtgvdk, UA NegativeNegative - 4(70) +++ mg/dLNOVA HealthcareBlood, UANegativeNegative - 50 Felice/mcLNOVA HealthcareClarity, UAClearNOVA HealthcareColor, UAYellowNOVA HealthcareGlucose, UANegativeNegative - 2000(110) ++++ mg/dLPARK CITY [facility]OS[facility]ITAL Healthcare Interpretation and review of laboratory resultsNormalNOVA HealthcareKetones, UA NegativeNegative - 160(16) ++++ mg/dLPARK CITY HOSPITAL HealthcareLeukocytes, UANegative Negative - 500+++ Regina/mcLPARK CITY HOSPITAL HealthcareNitrite, UANegativeNegative - Positive NOMS HealthcarepH, UA7.55 - 9NOMS HealthcareProtein, UANegativeNegative - 2000(20) ++++ mg/dLNOVA HealthcareSpec Grav, UA1.011 - 1.03N[facility] Healthcare Urobilinogen, UA1.00.2 - 12 mg/dLNOHannibal Regional HospitalNOVA HealthcareALL CBC WITH AUTO DIFFon 05-29-6253UMEEPAKHH ABSOLUTE NEXL0DNKR HealthcareBasophils/100 WBC (Bld) 0.3 %0.2 - 2.0 %NOMS HealthcareEosinophils/100 WBC (Bld)0.3 %Low0.9 - 7.0 %[facility] HealthcareErythrocyte distribution width (RBC) [Ratio]13.2 %11.0 - 15.0 %NOMS HealthcareHematocrit (Bld) [Volume fraction]32.2 %Low36.0 - 48.0 %[facility] CenterHemoglobin (Bld) [Mass/Vol]11 g/dLLow12.0 - 16.0 g/dLOzarks Medical Center IMMATURE GRANULOCYTES ABS AUTO0.02NOMS [facility] HospitalImmature granulocytes/100 WBC (Bld)0.3 %0.0 - 0.5 %[facility] HealthcareInterpretation and review of laboratory resultsAbnormalNOHannibal Regional HospitalLYMPHOCYTES ABSOLUTE AUTO1.3NOMS [facility] Lymphocytes/100 WBC (Bld)16.6 %Low20.5 - 60.0 %[facility] WashingtonH (RBC) [Entitic mass]32.9 pg26.7 - 34.0 pgMercy Hospital WashingtonHC (RBC) [Mass/Vol]34.2 g/dL29.9 - 35.2 g/dLMercy Hospital WashingtonV (RBC) [Entitic vol]96.4 fL81.0 - 99.0 fLOzarks Medical CenterMONOCYTES ABSOLUTE AUTO0.3NOVA HealthcareMonocytes/100 WBC (Bld)4.1 % 1.7 - 12.0 %[facility] CenterNEUTROPHILS ABSOLUTE AUTO6.3NOMS [facility] Neutrophils/100 WBC (Bld)78.4 %High43.0 - 75.0 %[facility] Medical CenterPlatelet mean volume (Bld) [Entitic vol]10.4 fL9.5 - 13.5 fLNOMS HealthcareTBH EO #0NOMS HealthcareTBH PGB229XyjHEEY [facility] HospitalTB RBC3.34LowNOMS [facility] HospitalTB RYX7BDOWHannibal Regional HospitalCLINISYNCNOMS HealthcareIGP,APTIMA HPV,AGE GDLNon 00-37-5386JDB GDLN ACOG TESTINGNote.[facility] HealthcareComment on above:TESTS RESULT FLAG UNITS REF RANGE LAB Clinician Provided Cytology Information Source.............Endocervix Other.............. No. of containers..01 ThinPrep Vial Age Algo ACOG Nancy... 30-65 FLAG LEGEND: L-Low Normal,H-High Normal,LL-Alert Low,HH-Alert High <-Panic Low,>-Panic High,A-Abnormal,AA-Critical Abnormal Performed at: 01 =[address] [place] [address] Vikki Rivera MD, HPV APTIMANegativeNegativeNOMS HealthcareComment on above:This nucleic acid amplification test detects fourteen high- risk HPV types (16,18,31,33,35,39,45,51,52,56,58,59,66,68) without differentiation. Performed at: =[address] [id number] Criminology Teacher: Vikki Rivera MD, Phone: [phone] Performed at: [address] [id number] Criminology Teacher: Vikki Rivera MD, Phone: [phone] IGP, APTIMA HPV, RFX 16/18,45Note.NOMS HealthcareComment on above:TESTS RESULT FLAG UNITS REF RANGE LAB DIAGNOSIS: 02 NEGATIVE FOR INTRAEPITHELIAL LESION OR MALIGNANCY. Specimen adequacy: 02 Satisfactory for evaluation. Endocervical and/or squamous metaplastic cells (endocervical component) are present. Performed by: Jarocho Kirkpatrick, Wick And Base Assembler (ASC) . 02 Note: Note 02 The [...] <-Panic Low,>-Panic High,A-Abnormal,AA-Critical Abnormal Performed at: [address] [address] Vikki Rivera MD, SPATULA-ALONE ENDOCERVIX CLINISYNCNOMS HealthcareRECURRENT VAGINITIS (HTRX)on 06-79-0854ODKGOBJIP VAGINAE 0NOMS HealthcareATOPOBIUM VAGINAENot detectedNOMS HealthcareBVAB 2,3 (BACTERIAL VAGINOSIS ASSOCIATED BACTERIA 2, 3); MOBILUNCUS LKQ1TJAG HealthcareBVAB 2,3 (BACTERIAL VAGINOSIS ASSOCIATED BACTERIA 2, 3); MOBILUNCUS SPPNot detectedNOMS HealthcareCANDIDA ALBICANS, PARAPSILOSIS, [id number] HealthcareCANDIDA ALBICANS, PARAPSILOSIS, TROPICALISNot detectedNOMS HealthcareCANDIDA GLABRATA0 NOMS HealthcareCANDIDA GLABRATANot detectedNOMS HealthcareCANDIDA TRTXRM8YTJJ HealthcareCANDIDA KRUSEINot detectedNOMS HealthcareCHLAMYDIA VFTWRTECRWA8QAEI HealthcareCHLAMYDIA TRACHOMATISNot detectedNOMS HealthcareGARDNERELLA VAGINALIS0 NOMS HealthcareGARDNERELLA VAGINALISNot detectedNOMS HealthcareMEGASPHAERA (TYPES 1, 2)0NOMS HealthcareMEGASPHAERA (TYPES 1, 2)Not detectedNOMS Healthcare MYCOPLASMA LBUAOMUABU1OIAI HealthcareMYCOPLASMA GENITALIUMNot detectedNOMS HealthcareNEISSERIA KMPETLQCBXV4GNUY HealthcareNEISSERIA GONORRHOEAENot detected NOMS HealthcareTRICHOMONAS CUHCYQVTU6XRJK HealthcareTRICHOMONAS VAGINALISNot detectedNOMS HealthcareNOMS HealthcareUS OB 14+ [...] Delivery: 10/23/25 Gestational Age as of 05/25/2025: 10j8zSjcjoftcej macro (dipstick) panel (U)on 41-63-5935Ltexxbmhv, UANegativeNegative - 4(70) +++ mg/dLNOMS HealthcareBlood, UANegativeNegative - 50 Felice/mcLNOMS HealthcareClarity, UAClearNOMS Healthcare Color, UAYellowNOMS HealthcareGlucose, UANegativeNegative - 2000(110) ++++ mg/dL NOMS HealthcareInterpretation and review of laboratory resultsAbnormalNOMS HealthcareKetones, UANegativeNegative - 160(16) ++++ mg/dLNOVA Healthcare Leukocytes, UAPositiveNegative - 500+++ Regina/mcLNOVA HealthcareNitrite, UA NegativeNegative - PositiveNOMS HealthcarepH, UA8.55 - 9NOMS HealthcareProtein, UAPositiveNegative - 2000(20) ++++ mg/dLNOVA HealthcareSpec Grav, UA1.011 - 1.03 NOMS HealthcareUrobilinogen, UA1.00.2 - 12 mg/dLNOWisconsin [facility] Hospital[facility] HCG ( test) Ql (U)on 84-49-1921Encskpxnyrkmkl and review of laboratory resultsAbTrinity Health Grand Rapids HospitalPreg Test, UrPositiveNegativeNOSaint John's [facility] System HealthcareUS OB LIMITED 1+ FETUSESon 21-71-7571HD OB LIMITED 1+ FETUSESFINDINGS: No prior examinations. [...] No LMP recorded.Urinalysis macro (dipstick) panel (U)on 77-77-2247Vrizgmyxm, UA NegativeNegative - 4(70) +++ mg/dLNOVA HealthcareBlood, UANegativeNegative - 50 Felice/mcLNOVA HealthcareClarity, UAClearNOVA HealthcareColor, UAYellowNOVA HealthcareGlucose, UATraceNegative - 1999(110) ++++ mg/dLNOVA Healthcare Interpretation and review of laboratory resultsAbnormalNOMS HealthcareKetones, UANegativeNegative - 160(16) ++++ mg/dLNOMS HealthcareLeukocytes, UAPositive Negative - 500+++ Regina/mcLNOMS HealthcareNitrite, UANegativeNegative - Positive NOMS HealthcarepH, UA7.55 - 9NOMS HealthcareProtein, UATraceNegative - 2000(20) ++++ mg/dLNOMS HealthcareSpec Grav, UA1.011 - 1.03NOMS HealthcareUrobilinogen, UA1.00.2 - 12 mg/dLNOMS HealthcareNOMS HealthcareUS OB BPP W NON-STRESSon 70-14-2543TtbMargie, [place] [address] Ultrasound Report Signed Patient: ЕКАТЕРИНА SUTHERLAND MR#: [id number] : 1995 Acct:[id number] Age/Sex: 28 / F ADM Date: 02/10/24 Loc: US Attending Dr: Marco Bales D.O. Ordering Physician: Marco Bales D.O. Date of Service: 02/10/24 Procedure(s): US OB BPP w non-stress Accession Number(s): [id number] cc: Marco Bales D.O.; Physician,Non-Staff M.Nancy [address] [address] Patient Name: ЕКАТЕРИНА SUTHERLAND MRN: [id number] date: 1995 Sex: F Assigned Patient Location: US Current Patient Location: US Accession/Order Number: [id number] Exam Date: 02/10/2024 13:59 Report Date: 02/10/2024 [...] Signed By: 02/10/24 1457 DD/ 1455 TD/TT: Global Creative Chairman:PARTHAadiologector, Radiologist, - 02/10/2024 [place] [address] Ultrasound Report Signed Patient: ЕКАТЕРИНА SUTHERLAND MR#: [id number] : 1995 Acct:[id number] Age/Sex: 28 / F ADM Date: 02/10/24 Loc: US Attending Dr: Marco Bales D.O. Ordering Physician: Marco Bales D.O. Date of Service: 02/10/24 Procedure(s): US OB BPP w non-stress Accession Number(s): [id number] cc: Marco Bales D.O.; Physician,Non-Staff [place] [id number] Patient Name: ЕКАТЕРИНА SUTHERLAND MRN: [id number] date: 1995 Sex: F Assigned Patient Location: Current Patient Location: Accession/Order Number: [id number] Exam Date: 02/10/2024 13:59 Report Date: 02/10/2024 [...] Signed By: 02/10/24 1457 DD/ 145 TD/TT: Global Creative Chairman: KEEGAN HealthcareRadiology Study observation (narrative)NOMS HealthcareUS OB BPP W NON-STRESSOrdered By: Radiologist Radiology on 61-29-2458OQCE Healthcare Work Phone: US OB BPP W NON-STRESSon 32-13-4839JqzMargie, [place] [address] Ultrasound Report Signed Patient: ЕКАТЕРИНА SUTHERLAND MR#: [id number] : 1995 Acct:[id number] Age/Sex: 28 / F ADM Date: 02/03/24 Loc: US Attending Dr: Marco Bales D.O. Ordering Physician: Marco Bales D.O. Date of Service: 02/03/24 Procedure(s): US OB BPP w non-stress Accession Number(s): [id number] cc: Marco Bales D.O.; Physician,Non-Staff Lalit [address] [place] [address] Patient Name: ЕКАТЕРИНА SUTHERLAND MRN: [facility]:[id number] date: 1995 Sex: F Assigned Patient Location: US Current Patient Location: Accession/Order Number: [id number] Exam Date: 02/03/2024 14:20 Report Date: 02/04/2024 [...] M.D. Signed By: 02/04/24714 DD/ 1 TD/TT: Global Creative Chairman:PARTHAadiolnicola Radiologist, - 02/04/2024 [place] [address] Ultrasound Report Signed Patient: ЕКАТЕРИНА SUTHERLAND MR#: [id number] : 1995 Acct:[id number] Age/Sex: 28 / F ADM Date: 02/03/24 Loc: US Attending Dr: Marco Bales D.O. Ordering Physician: Marco Bales D.O. Date of Service: 02/03/24 Procedure(s): US OB BPP w non-stress Accession Number(s): [id number] cc: Marco Bales D.O.; Physician,Non-Staff Lalit [facility] [place] [id number] Patient Name: ЕКАТЕРИНА SUTHERLAND MRN: [facility]:[id number] date: 1995 Sex: F Assigned Patient Location: US Current Patient Location: Accession/Order Number: [id number] Exam Date: 02/03/2024 14:20 Report Date: 02/04/2024 [...] M.D. Signed By: 02/04/24714 DD/ 1 TD/TT: Global Creative Chairman: KEEGAN HealthcareRadiology Study observation (narrative)NOMS HealthcareUS OB BPP W NON-STRESSOrdered By: Radiologist Radiology on 89-53-5673[facility]K [facility] Work Phone: US OB GROWTHon [phone], [place] [address] Ultrasound Report Signed Patient: ЕКАТЕРИНА SUTHERLAND MR#: [id number] : 1995 Acct:[id number] Age/Sex: 28 / F ADM Date: 02/03/24 Loc: US Attending Dr: Marco Bales D.O. Ordering Physician: Marco Bales D.O. Date of Service: 02/03/24 Procedure(s): US OB growth Accession Number(s): [id number] cc: Marco Bales D.O.; Physician,Non-Staff Lalit [facility] [place] [phone] Patient Name: ЕКАТЕРИНА SUTHERLAND MRN: [id number]:[id number] date: 1995 Sex: F Assigned Patient Location: [facility] Current Patient Location: US Accession/Order Number: [id number] Exam Date: 02/03/2024 14:20 Report Date: 02/04/2024 [...] Tsang M.D. Signed By: 02/04/2439 DD/ TD/TT: Global Creative Chairman:GRAHAMHRadiology, Radiologist, MD - 02/04/2024 [place] [address] Ultrasound Report Signed Patient: ЕКАТЕРИНА SUTHERLAND MR#: [id number] : 1995 Acct:[id number] Age/Sex: 28 / F ADM Date: 02/03/24 Loc: US Attending Dr: Marco Bales D.O. Ordering Physician: Marco Bales D.O. Date of Service: 02/03/24 Procedure(s): US OB growth Accession Number(s): [id number] cc: Marco Bales D.O.; Physician,Non-Staff Lalit [address] [place] [address] Patient Name: ЕКАТЕРИНА SUTHERLAND MRN: [facility]:[id number] date: 1995 Sex: F Assigned Patient Location: [facility] Current Patient Location: US Accession/Order Number: [id number] Exam Date: 02/03/2024 14:20 Report Date: 02/04/2024 [...] Tsang M.D. Signed By: 02/04/2439 DD/ TD/TT: Global Creative Chairman: KEEGAN HealthcareRadiology Study observation (narrative)NOM HealthcareUS OB GROWTHOrdered By: Radiologist Radiology on 38-41-3812WDDO [employer] Work Phone: US OB BPP W NON-STRESSon [phone], [place] [address] Ultrasound Report Signed Patient: ЕКАТЕРИНА SUTHERLAND MR#: [id number] : 1995 Acct:[id number] Age/Sex: 28 / F ADM Date: 01/27/24 Loc: US Attending Dr: Marco Bales D.O. Ordering Physician: Marco Bales D.O. Date of Service: 01/27/24 Procedure(s): US OB BPP w non-stress Accession Number(s): [id number] cc: Marco Bales D.O.; Physician,Non-Staff MRom The [address] [address] Patient Name: ЕКАТЕРИНА SUTHERLAND MRN: [id number]:[id number] date: 1995 Sex: F Assigned Patient Location: US Current Patient Location: US Accession/Order Number: [id number] Exam Date: 01/27/2024 14:45 Report Date: 01/27/2024 [...] Signed By: 01/27/24 1521 DD/ 1519 TD/TT: Global Creative Chairman:GRAHAMHRadiology, Radiologist, - 01/27/2024 [place] [address] Ultrasound Report Signed Patient: ЕКАТЕРИНА SUTHERLAND MR#: [id number] : 1995 Acct:[id number] Age/Sex: 28 / F ADM Date: 01/27/24 Loc: US Attending Dr: Marco Bales D.O. Ordering Physician: Marco Bales D.O. Date of Service: 01/27/24 Procedure(s): US OB BPP w non-stress Accession Number(s): [id number] cc: Marco Bales D.O.; Physician,Non-Staff Lalit [facility] [place] [phone] Patient Name: ЕКАТЕРИНА SUTHERLAND MRN: [facility]:[id number] date: 1995 Sex: F Assigned Patient Location: US Current Patient Location: US Accession/Order Number: [id number] Exam Date: 01/27/2024 14:45 Report Date: 01/27/2024 [...] Signed By: 01/27/24 1521 DD/ 1519 TD/TT: Global Creative Chairman: KEEGAN HealthcareRadiology Study observation (narrative)NOMS HealthcareUS OB BPP W NON-STRESSOrdered By: Radiologist Radiology on 18-04-4414JVCS [employer] Work Phone: US OB BPP W NON-STRESSon [phone], [place] [address] Ultrasound Report Signed Patient: ЕКАТЕРИНА SUTHERLAND MR#: [id number] : 1995 Acct:[id number] Age/Sex: 28 / F ADM Date: 01/20/24 Loc: US Attending Dr: Marco Bales D.O. Ordering Physician: Marco Bales D.O. Date of Service: 01/20/24 Procedure(s): US OB BPP w non-stress Accession Number(s): [id number] cc: Marco Bales D.O.; Physician,Non-Staff M.Nancy The [address] [address] Patient Name: ЕКАТЕРИНА SUTHERLAND MRN: [id number]:[id number] date: 1995 Sex: F Assigned Patient Location: [facility] Current Patient Location: Accession/Order Number: [id number] Exam Date: 01/20/2024 19:12 Report Date: 01/21/2024 [...] M.D. Signed By: 01/21/24715 DD/ 2 TD/TT: Global Creative Chairman:GRAHAMHRadiology, Radiologist, MD - 01/21/2024 [place] [address] Ultrasound Report Signed Patient: ЕКАТЕРИНА SUTHERLAND MR#: [id number] : 1995 Acct:[id number] Age/Sex: 28 / F ADM Date: 01/20/24 Loc: US Attending Dr: Marco Bales D.O. Ordering Physician: Marco Bales D.O. Date of Service: 01/20/24 Procedure(s): US OB BPP w non-stress Accession Number(s): [id number] cc: Marco Bales D.O.; Physician,Non-Staff Lalit [facility] [place] [phone] Patient Name: ЕКАТЕРИНА SUTHERLAND MRN: [facility]:[id number] date: 1995 Sex: F Assigned Patient Location: [facility] Current Patient Location: Accession/Order Number: [id number] Exam Date: 01/20/2024 19:12 Report Date: 01/21/2024 [...] ALFA TSANG Date: 01/21/2024 07:13 Dictated By: Alaf Tsang M.D. Signed By: 01/21/24715 DD/ 2 TD/TT: Global Creative Chairman: NOMJovany HealthcareRadiology Study observation (narrative)NOM HealthcareUS OB BPP W NON-STRESSOrdered By: Radiologist Radiology on 89-77-3529JBYT [facility] Work Phone: US OB BPP W NON-STRESSon [phone], [place] [address] Ultrasound Report Signed Patient: ЕКАТЕРИНА SUTHERLAND MR#: [id number] : 1995 Acct:[id number] Age/Sex: 28 / F ADM Date: 01/13/24 Loc: [facility] 250-[address]: Marco Bales D.O. Ordering Physician: Marco Bales D.O. Date of Service: 01/13/24 Procedure(s): US OB BPP w non-stress Accession Number(s): [id number] cc: Marco Bales D.O.; Physician,Non-Staff MRom The [address] [address] Patient Name: ЕКАТЕРИНА SUTHERLAND MRN: [id number] date: 1995 Sex: F Assigned Patient Location: [facility] Current Patient Location: [facility] Accession/Order Number: [id number] Exam Date: 01/13/2024 14:07 Report Date: 01/13/2024 [...] Signed By: 01/13/24 1455 DD/ 1452 TD/TT: Global Creative Chairman:GRAHAMHRadiology, Radiologist, MD - 01/16/2024 [place] [address] Ultrasound Report Signed Patient: ЕКАТЕРИНА SUTHERLAND MR#: [id number] : 1995 Acct:[id number] Age/Sex: 28 / F ADM Date: 01/13/24 Loc: [facility] 250-[address]: Marco Bales D.O. Ordering Physician: Marco Bales D.O. Date of Service: 01/13/24 Procedure(s): US OB BPP w non-stress Accession Number(s): [id number] cc: Marco Bales D.O.; Physician,Non-Staff Lalit [facility] [place] [phone] Patient Name: ЕКАТЕРИНА SUTHERLAND MRN: [id number]:[id number] date: 1995 Sex: F Assigned Patient Location: [facility] Current Patient Location: [facility] Accession/Order Number: [id number] Exam Date: 01/13/2024 14:07 Report Date: 01/13/2024 [...] CABRAL Date: 01/13/2024 14:52 Dictated By: Geni Cabarl M.D. Signed By: 01/13/24 1455 DD/ 1452 TD/TT: Global Creative Chairman: KEEGAN HealthcareRadiology Study observation (narrative)NOMS HealthcareUS OB BPP W NON-STRESSOrdered By: Radiologist Radiology on 26-38-4677VXEOOzarks Medical Center Work Phone: aLL CBC WITH AUTO DIFFon 77-18-2562FNPIPESKQ ABSOLUTE AUTO0.0NOMS HealthcareBasophils/100 WBC (Bld)0.1 %Low0.2 - 2.0 %[facility] Eosinophils/100 WBC (Bld)0.3 %Low0.9 - 7.0 %NOMS HealthcareErythrocyte distribution width (RBC) [Ratio]13.2 %11.0 - 15.0 %NOMS HealthcareHematocrit (Bld) [Volume fraction]31.2 %Low36.0 - 48.0 %NOMS HealthcareHemoglobin (Bld) [Mass/Vol]10.1 g/dLLow12.0 - 16.0 g/dLNOVA HealthcareIMMATURE GRANULOCYTES ABS AUTO0.04HighNOMS HealthcareImmature granulocytes/100 WBC (Bld)0.6 %High0.0 - 0.5 %NOMS HealthcareInterpretation and review of laboratory resultsAbnormalNOVA HealthcareLYMPHOCYTES ABSOLUTE AUTO1.0LowNOMS HealthcareLymphocytes/100 WBC (Bld)13.6 %Low20.5 - 60.0 %[facility] WashingtonH (RBC) [Entitic mass]31.3 pg26.7 - 34.0 pgNOParkland Health CenterHC (RBC) [Mass/Vol]32.4 g/dL29.9 - 35.2 g/dLOzarks Medical CenterMCV (RBC) [Entitic vol]96.6 fL81.0 - 99.0 fLNOVA HealthcareMONOCYTES ABSOLUTE AUTO0.4NOMS HealthcareMonocytes/100 WBC (Bld)5.2 %1.7 - 12.0 %[facility] HealthcareNEUTROPHILS ABSOLUTE AUTO5.8NOMS HealthcareNeutrophils/100 WBC (Bld) 80.2 %High43.0 - 75.0 %[facility] HealthcarePlatelet mean volume (Bld) [Entitic vol] 11.1 fL9.5 - 13.5 fLPARK CITY HOSPITAL HealthcareTBH EO #0.0NOMS HealthcareTB HCF719DvkDKCM HealthcareTB RBC3.23LowNOVA HealthcareTBH WBC7.3NOVA HealthcareCLINISYNCNOMS HealthcareGLUCOSE 1 HOURon 26-99-7477Lefledf [Mass/Vol]163 mg/dLHighNINF - 130 mg/dLPARK CITY HOSPITAL HealthcareInterpretation and review of laboratory resultsAbnormalOzarks Medical CenterCLINISYNCNOMS HealthcareNo Panel Informationon 22-18-8460Sqdlplgxl Study observation (narrative)[facility] OB BPP W NON-STRESSon 08-92-8689TmoMargie, [place] [address] Ultrasound Report Signed Patient: ЕКАТЕРИНА SUTHERLAND MR#: [id number] : 1995 Acct:[id number] Age/Sex: 28 / F ADM Date: 01/06/24 Loc: US Attending Dr: Marco Bales D.O. Ordering Physician: aMrco Bales D.O. Date of Service: 01/06/24 Procedure(s): US OB BPP w non-stress Accession Number(s): [id number] cc: Marco Bales D.O.; Physician,Non-Staff Lalit The [address] [address] Patient Name: ЕКАТЕРИНА SUTHERLAND MRN: [id number]:[id number] date: 1995 Sex: F Assigned Patient Location: US Current Patient Location: US Accession/Order Number: [id number] Exam Date: 01/06/2024 14:30 Report Date: 01/07/2024 [...] M.D. Signed By: 01/07/24708 DD/ 5 TD/TT: Global Creative Chairman:GRAHAMHRadiology, Radiologist, - 01/07/2024 [place] [address] Ultrasound Report Signed Patient: ЕКАТЕРИНА SUTHERLAND MR#: [id number] : 1995 Acct:[id number] Age/Sex: 28 / F ADM Date: 01/06/24 Loc: US Attending Dr: Marco Bales D.O. Ordering Physician: Marco Bales D.O. Date of Service: 01/06/24 Procedure(s): US OB BPP w non-stress Accession Number(s): [id number] cc: Marco Bales D.O.; Physician,Non-Staff Lalit The [address] [phone] Patient Name: ЕКАТЕРИНА SUTHERLAND MRN: [id number] date: 1995 Sex: F Assigned Patient Location: US Current Patient Location: US Accession/Order Number: [id number] Exam Date: 01/06/2024 14:30 Report Date: 01/07/2024 [...] Signed By: 01/07/24 0709 DD/ 5 TD/TT: Global Creative Chairman: KEEGAN Barakat OB BPP W NON-STRESSOrdered By: Radiologist Radiology on 19-01-4408KCTV [employer] Work Phone: [place] OB GROWTHon [phone], [place] [address] Ultrasound Report Signed Patient: ЕКАТЕРИНА SUTHERLAND MR#: [id number] : 1995 Acct:[id number] Age/Sex: 28 / F ADM Date: 01/06/24 Loc: US Attending Dr: Marco Bales D.O. Ordering Physician: Marco Bales D.O. Date of Service: 01/06/24 Procedure(s): US OB growth Accession Number(s): [id number] cc: Marco Bales D.O.; Physician,Non-Staff MRom The [address] [address] Patient Name: ЕКАТЕРИНА SUTHERLAND MRN: [facility]:[id number] date: 1995 Sex: F Assigned Patient Location: US Current Patient Location: US Accession/Order Number: [id number] Exam Date: 01/06/2024 14:30 Report Date: 01/07/2024 [...] Signed By: 01/07/24 0708 DD/ 0706 TD/TT: Global Creative Chairman:PARTHAadiology, Radiologist, - 01/07/2024 [place] [address] Ultrasound Report Signed Patient: ЕКАТЕРИНА SUTHERLAND MR#: [id number] : 1995 Acct:[id number] Age/Sex: 28 / F ADM Date: 01/06/24 Loc: US Attending Dr: Marco Bales D.O. Ordering Physician: Marco Bales D.O. Date of Service: 01/06/24 Procedure(s): US OB growth Accession Number(s): [id number] cc: Marco Bales D.O.; Physician,Non-Staff Lalit [place] [phone] Patient Name: ЕКАТЕРИНА SUTHERLAND MRN: [facility]:[id number] date: 1995 Sex: F Assigned Patient Location: US Current Patient Location: US Accession/Order Number: [id number] Exam Date: 01/06/2024 14:30 Report Date: 01/07/2024 [...] M.D. Signed By: 01/07/2408 DD/ 5 TD/TT: Global Creative Chairman: KEEGAN Barakat OB GROWTHOrdered By: Radiologist Radiology on 56-34-0663TIWA [employer] Work Phone: US OB BPP W NON-STRESSon [phone] [place] [phone] Ultrasound Report Signed Patient: ЕКАТЕРИНА SUTHERLAND MR#: [id number] : 1995 Acct:[id number] Age/Sex: 28 / F ADM Date: 12/30/23 Loc: [facility] 250-[address]: Marco Bales D.O. Ordering Physician: Marco Bales D.O. Date of Service: 12/30/23 Procedure(s): US OB BPP w non-stress Accession Number(s): [id number] cc: Marco Bales D.O.; Physician,Non-Staff Lalit The [address] [address] Patient Name: ЕКАТЕРИНА SUTHERLAND MRN: [id number] date: 1995 Sex: F Assigned Patient Location: [facility] Current Patient Location: [facility] Accession/Order Number: [id number] Exam Date: 12/30/2023 14:07 Report Date: 12/30/2023 [...] Signed By: 12/30/23 1443 DD/ 39 TD/TT: Global Creative Chairman:GRAHAMHRadiology, Radiologist, - 12/30/[address] [address] Ultrasound Report Signed Patient: ЕКАТЕРИНА SUTHERLAND MR#: [id number] : 1995 Acct:[id number] Age/Sex: 28 / F ADM Date: 12/30/23 Loc: [facility] 250-[address]: Marco Bales D.O. Ordering Physician: Marco Bales D.O. Date of Service: 12/30/23 Procedure(s): US OB BPP w non-stress Accession Number(s): [id number] cc: Marco Bales D.O.; Physician,Non-Staff Lalit [address] [address] Patient Name: ЕКАТЕРИНА SUTHERLAND MRN: [id number]:[id number] date: 1995 Sex: F Assigned Patient Location: [facility] Current Patient Location: [facility] Accession/Order Number: [id number] Exam Date: 12/30/2023 14:07 Report Date: 12/30/2023 [...] Signed By: 12/30/23 144 DD/ 39 TD/TT: Global Creative Chairman: KEEGAN HealthcareRadiology Study observation (narrative)KEEGAN HealthcareUS OB BPP W NON-STRESSOrdered By: Radiologist Radiology on 72-10-8684[facility] Work Phone: US OB BPP W NON-STRESSon [phone], [place] [address] Ultrasound Report Signed Patient: ЕКАТЕРИНА SUTHERLAND MR#: [id number] : 1995 Acct:[id number] Age/Sex: 28 / F ADM Date: 12/23/23 Loc: [facility] 250-[address]: Marco Bales D.O. Ordering Physician: Marco Bales D.O. Date of Service: 12/23/23 Procedure(s): US OB BPP w non-stress Accession Number(s): [id number] cc: Marco Bales D.O.; Physician,Non-Staff Lalit [facility] [place] [address] Patient Name: ЕКАТЕРИНА SUTHERLAND MRN: [id number]:[id number] date: 1995 Sex: F Assigned Patient Location: [facility] Current Patient Location: [facility] Accession/Order Number: [id number] Exam Date: 12/23/2023 14:15 Report Date: 12/23/2023 [...] Tsang M.D. Signed By: 12/23/23 150 DD/ 7928 TD/TT: Global Creative Chairman:PARTHAadiologector, Radiologist, - 12/23/2023 [place] [address] Ultrasound Report Signed Patient: ЕКАТЕРИНА SUTHERLAND MR#: [id number] : 1995 Acct:[id number] Age/Sex: 28 / F ADM Date: 12/23/23 Loc: [facility] 250-[address]: Marco Bales D.O. Ordering Physician: Marco Bales D.O. Date of Service: 12/23/23 Procedure(s): US OB BPP w non-stress Accession Number(s): [id number] cc: Marco Bales D.O.; Physician,Non-Staff Lalit [facility] [address] [place] [address] Patient Name: ЕКАТЕРИНА SUTHERLAND MRN: [id number] date: 1995 Sex: F Assigned Patient Location: [facility] Current Patient Location: [facility] Accession/Order Number: [id number] Exam Date: 12/23/2023 14:15 Report Date: 12/23/2023 [...] By: Alfa Tsang M.D. Signed By: 12/23/23 1502 DD/ 1458 TD/TT: Global Creative Chairman: KEEGAN HealthcareRadiology Study observation (narrative)KEEGAN HernandezUS OB BPP W NON-STRESSOrdered By: Radiologist Radiology on 60-96-9734[facility] Work Phone: US OB BPP W NON-STRESSon [phone], [place] [address] Ultrasound Report Signed Patient: ЕКАТЕРИНА SUTHERLAND MR#: [id number] : 1995 Acct:[id number] Age/Sex: 28 / F ADM Date: 12/16/23 Loc: [facility] 250-[address]: Marco Bales D.O. Ordering Physician: Marco Bales D.O. Date of Service: 12/16/23 Procedure(s): US OB BPP w non-stress Accession Number(s): [id number] cc: Marco Bales D.O.; Physician,Non-Staff Lalit [facility] [place] [address] Patient Name: ЕКАТЕРИНА SUTHERLAND MRN: [id number] date: 1995 Sex: F Assigned Patient Location: [facility] Current Patient Location: [facility] Accession/Order Number: [id number] Exam Date: 12/16/2023 14:05 Report Date: 12/16/2023 [...] Signed By: 12/16/23 143 DD/ 29 TD/TT: Global Creative Chairman:TBHRadiology, Radiologist, - 12/18/[address] [address] Ultrasound Report Signed Patient: ЕКАТЕРИНА SUTHERLAND MR#: [id number] : 1995 Acct:[id number] Age/Sex: 28 / F ADM Date: 12/16/23 Loc: [facility] 250-[address]: Marco Bales D.O. Ordering Physician: Marco Bales D.O. Date of Service: 12/16/23 Procedure(s): US OB BPP w non-stress Accession Number(s): [id number] cc: Marco Bales D.O.; Physician,Non-Staff Lalit The [place] [phone] Patient Name: ЕКАТЕРИНА SUTHERLAND MRN: [id number] date: 1995 Sex: F Assigned Patient Location: [facility] Current Patient Location: [facility] Accession/Order Number: [id number] Exam Date: 12/16/2023 14:05 Report Date: 12/16/2023 [...] M.D. Signed By: 12/16/231431 DD/ 29 TD/TT: Global Creative Chairman: KEEGAN HealthcareRadiology Study observation (narrative)NOMS HealthcareUS OB BPP W NON-STRESSOrdered By: Radiologist Radiology on 30-32-5013[facility] Work Phone: US OB BPP W NON-STRESSon [phone], [place] [address] Ultrasound Report Signed Patient: ЕКАТЕРИНА SUTHERLAND MR#: [id number] : 1995 Acct:[id number] Age/Sex: 28 / F ADM Date: 12/09/23 Loc: [facility] 250-[address]: Marco Bales D.O. Ordering Physician: Marco Bales D.O. Date of Service: 12/09/23 Procedure(s): US OB BPP w non-stress Accession Number(s): [id number] cc: Marco Bales D.O.; Physician,Non-Staff Lalit The [address] [address] Patient Name: ЕКАТЕРИНА SUTHERLAND MRN: [facility]:[id number] date: 1995 Sex: F Assigned Patient Location: [facility] Current Patient Location: [facility] Accession/Order Number: [id number] Exam Date: 12/09/2023 14:32 Report Date: 12/09/2023 [...] Signed By: 12/09/23 1521 DD/ 1519 TD/TT: Global Creative Chairman:GRAHAMHRadiology, Radiologist, - 12/09/2023 The [place] [phone] Ultrasound Report Signed Patient: ЕКАТЕРИНА SUTHERLAND MR#: [id number] : 1995 Acct:[id number] Age/Sex: 28 / F ADM Date: 12/09/23 Loc: [facility] 250-[address]: Marco Bales D.O. Ordering Physician: Marco Bales D.O. Date of Service: 12/09/23 Procedure(s): US OB BPP w non-stress Accession Number(s): [id number] cc: Marco Bales D.O.; Physician,Non-Staff Lalit The [place] [address] Patient Name: ЕКАТЕРИНА SUTHERLAND MRN: [id number] date: 1995 Sex: F Assigned Patient Location: [facility] Current Patient Location: [facility] Accession/Order Number: [id number] Exam Date: 12/09/2023 14:32 Report Date: 12/09/2023 [...] Signed By: 12/09/23 1521 DD/ 1519 TD/TT: Global Creative Chairman: KEEGAN HealthcareRadiology Study observation (narrative)NOMS HealthcareUS OB BPP W NON-STRESSOrdered By: Radiologist Radiology on 10-35-7260LLJW [facility] Work Phone: US OB GROWTHon [phone] [address] Ultrasound Report Signed Patient: ЕКАТЕРИНА SUTHERLAND MR#: [id number] : 1995 Acct:[id number] Age/Sex: 28 / F ADM Date: 12/09/23 Loc: [facility] 250-[address]: Marco Bales D.O. Ordering Physician: Marco Bales D.O. Date of Service: 12/09/23 Procedure(s): US OB growth Accession Number(s): [id number] cc: Marco Bales D.O.; Physician,Non-Staff Lalit [address] [address] Patient Name: ЕКАТЕРИНА SUTHERLAND MRN: [facility]:[id number] date: 1995 Sex: F Assigned Patient Location: [facility] Current Patient Location: [facility] Accession/Order Number: [id number] Exam Date: 12/09/2023 14:32 Report Date: 12/09/2023 [...] Signed By: 12/09/23 152 DD/ 152 TD/TT: Global Creative Chairman:TBHRadiology, Radiologist, MD - 12/09/2023 [place] [address] Ultrasound Report Signed Patient: ЕКАТЕРИНА SUHTERLAND MR#: [id number] : 1995 Acct:[id number] Age/Sex: 28 / F ADM Date: 12/09/23 Loc: [facility] 250-[address]: Marco Bales D.O. Ordering Physician: Marco Bales D.O. Date of Service: 12/09/23 Procedure(s): US OB growth Accession Number(s): [id number] cc: Marco Bales D.O.; Physician,Non-Staff Lalit The [place] [phone] Patient Name: ЕКАТЕРИНА SUTHERLAND MRN: [id number]:[id number] date: 1995 Sex: F Assigned Patient Location: [facility] Current Patient Location: [facility] Accession/Order Number: [id number] Exam Date: 12/09/2023 14:32 Report Date: 12/09/2023 [...] Signed By: 12/09/23 152 DD/ 19 TD/TT: Global Creative Chairman: [facility] MASSACHUSETTSJovany HealthcareRadiology Study observation (narrative)[facility] CenterUS OB GROWTHOrdered By: Radiologist Radiology on [id number] Medical Center Work Phone: Urinalysis macro (dipstick) panel (U)on 11-27-2023 Bilirubin, UANegativeNegative - 4(70) +++ mg/dLNOMS HealthcareBlood, UANegative Negative - 50 Felice/mcLNOMS HealthcareClarity, UAClearNOMS HealthcareColor, UA YellowNOMS HealthcareGlucose, UANegativeNegative - 2000(110) ++++ mg/dLNOMS HealthcareInterpretation and review of laboratory resultsNormalNOVA Healthcare Ketones, UANegativeNegative - 160(16) ++++ mg/dLNOMS HealthcareLeukocytes, UA NegativeNegative - 500+++ Regina/mcLNOMS HealthcareNitrite, UANegativeNegative - PositiveNOMS HealthcarepH, UA5.55 - 9NOMS HealthcareProtein, UANegativeNegative - 2000(20) ++++ mg/dLNOMS HealthcareSpec Grav, UA1.0301 - 1.03N[facility] Healthcare Urobilinogen, UA0.20.2 - 12 mg/dLNOMS HealthcareNOMS HealthcarePREG QUANT HCGon [id number] QUANT17 mIU/mLNormalSt. John Of God HospitalComment on above: Performed By: #### PREGQNT #### [facility] [address] [place] [address] Dr. Anna Alfonso [facility] on above: Result Comment: 5-50 0.2-1 WEEK 50-500 1-2 WEEKS 100-5,000 2-3 WEEKS 500-10,000 3-4 WEEKS 1,000-50,000 4-5 WEEKS 10,000-100,000 5-6 WEEKS 15,000-200,000 6-8 WEEKS 10,000-100,000 2-3 MONTHSPerformed By: #### PREGQNT #### [facility] [address] [place] [address] Dr. Anna Kline QUANT HCGon [id number] mIU/mLNormalSt. John Of God HospitalComment on above:Performed By: #### GAYLEREleanor, GRASTCX #### [facility] [address] [place] [address] Dr. Anna Alfonso The Jewish HospitalComment on above: Result Comment: 5-50 0.2-1 WEEK 50-500 1-2 WEEKS 100-5,000 2-3 WEEKS 500-10,000 3-4 WEEKS 1,000-50,000 4-5 WEEKS 10,000-100,000 5-6 WEEKS 15,000-200,000 6-8 WEEKS 10,000-100,000 2-3 MONTHSPerformed By: #### GAYLEREleanor, GRASTCX #### [facility] [address] [place] [address] Dr. Anna Martin AND RH TYPEon [id number] and Rh group Nom (Bld)ABO Rh Typing A Rh PositiveTrumbull Regional Medical CenterComment on above:Performed By: #### GAYLEREleanor, GRASTCX #### [facility] [address] [place] [address] Dr. Castillo ChangER URINE PROFILEon [id number] Ql (U)NegativeNormal NEGATIVESt. John Of God HospitalComment on above:Performed By: #### ERUR, UMICRO #### [facility] [address] [address] [address] Anna RomeroClarity (U)CLEARNormalCLEARSt. John Of God HospitalComment on above: Performed By: #### BRANDI UMICRO #### [facility] [address] [address] [address] Anna Lowlor (U)YELLOWNormalYELLOWSt. John Of God HospitalComment on above: Performed By: #### BRANDI UMICRO #### [facility] [address] [address] [address] Anna Karimi micrscopic examination will be performed if indicated. NormalSt. John Of God HospitalComascension st. [facility] on above:Performed By: #### BRANDI UMICRO #### [facility] [address] [address] [address] Anna RomeroGlucose Ql (U)NegativeNormalNEGATIVESt. John Of God HospitalComascension st. [facility] on above:Performed By: #### BRANDI UMICRO #### [facility] [address] [address] [address] Anna RomeroHemoglobin Ql (U)LARGEAbnormalNEGATIVESt. John Of God Hospital Comment on above:Performed By: #### BRANDI UMICRO #### [facility] [address] [address] [address] Anna RomeroKetones Ql (U)NegativeNormalNEGATIVESt. John Of God HospitalComment on above:Performed By: #### BRANDI UMICRO #### [facility] [address] [place] [address] Dr. Anna RomeroLEUKOCYTESNegativeNormalNEGATIVESt. John Of God HospitalComascension st. [facility] on above:Performed By: #### BRANDI UMICRO #### [facility] [address] [address] [address] Anna RomeroNitrite Ql (U)NegativeNormalNEGATIVESt. John Of God HospitalComment on above:Performed By: #### BRANDI UMICRO #### [facility] [address] [address] [address] Anna Caba (U)5.5 [pH]Normal5-9The [facility]awas HospitalComment on above: Performed By: #### VINCENT PAZ #### [facility] [address] [place] [address] Dr. Anna Gamble GRAVITY>=1.164Nnvztqgx2.005-<=1.025The [facility] Comment on above:Performed By: #### JD PAZRO #### [facility] [address] [place] [address] Dr. Anna Carmona PROTEINTRACENormalNEGATIVE/ TRACESt. John Of God HospitalComment on above:Performed By: #### JD PAZRO #### [facility] [address] [place] [address] Dr. Anna Esparza MICRO INDINDICATEDTrumbull Regional Medical CenterComment on above: Performed By: #### JD PAZRO #### [facility] [address] [place] [address] Dr. Anna Currybilinogen Qn (U)0.2 {Joel'U}/dLNormal0.2 - 1.0The [facility]as HospitalComment on above:Performed By: #### JD PAZRO #### [facility] [address] [place] [address] Dr. Anna Kline QUANT HCGon [id number] IQYPD7330 mIU/mLNormalThe [facility]as HospitalComment on above:Performed By: #### SSCRN, GRASTCX #### [facility] [address] [place] [address] Dr. Anna Alfonso RANGESEE BELOWTrumbull Regional Medical CenterComment on above: Result Comment: 5-50 0.2-1 WEEK 50-500 1-2 WEEKS 100-5,000 2-3 WEEKS 500-10,000 3-4 WEEKS 1,000-50,000 4-5 WEEKS 10,000-100,000 5-6 WEEKS 15,000-200,000 6-8 WEEKS 10,000-100,000 2-3 MONTHSPerformed By: #### SSCRN, GRASTCX #### [facility] [address] [address] [address] Anna Mazariegos MICROSCOPIC ONLYon [id number]G SEEN [facility] on above:Performed By: #### ERUR, UMICRO #### [facility] [address] [address] [address] Anna Coy identified Cx Nom (U)NOT INDICATEDNormalThProtestant HospitalComascension st. [facility] on above:Performed By: #### ERUR, UMICRO #### [facility] [address] [address] [address] Anna Carrera SEENNormalNONE SEENParkwood Hospital on above:Performed By: #### ERUR, UMICRO #### [facility] [address] [address] [address] Anna Okeefe LM Nom (Urine sed)NONE SEENNormalNONE SEENParkwood Hospital on above:Performed By: #### ERUR, UMICRO #### [facility] [address] [address] [address] Castillo ChangEpithelial cells LM Ql (Urine sed)RARENormalNONE SEEN /RAREParkwood Hospital on above:Performed By: #### ERUR, UMICRO #### [facility] [address] [address] [address] Anna ArguetaCOUSTRACEAbnormalNONE SEENParkwood Hospital on above:Performed By: #### ERUR, UMICRO #### [facility] [address] [address] [address] Anna RomeroMdmcfVGK2-5Qurulcix9-3XicParkwood Hospital on above:Performed By: #### ERUR, UMICRO #### [facility] [address] [address] [address] Anna RomeroWBC0-2AbnormalNONE SEENParkwood Hospital on above: Performed By: #### ERUR, UMICRO #### [facility] [address] [address] [address] Anna Welsh PREG TVon [id number] PREG TVEXAM: US PREG TV HISTORY: , [...] authenticated by: LUDWIG JEAN BAPTISTE Date: 2023-01-21 16:54NormProMedica Memorial [facility] URINE PROFILEon [id number] Ql (U)NegativeNormal NEGATIVEThe [facility]as HospitalComment on above:Performed By: #### ERUCanelo #### [facility] [address] [address] [address] Anna RomeroClarity (U)CLEARNormalCLEARThe [facility] HospitalComment on above: Performed By: #### ERUR #### [facility] [address] [address] [address] Anna Lowlor (U)YELLOWNormalYELLOWSt. John Of God HospitalComment on above: Performed By: #### ERUR #### [facility] [address] [address] [address] Anna Karimi micrscopic examination will be performed if indicated. NormalThe Crawford HospitalComment on above:Performed By: #### ERUR #### [facility] [address] [address] [address] Anna RomeroGlucose Ql (U)NegativeNormalNEGATIVESt. John Of God HospitalComment on above:Performed By: #### ERUR #### [facility] [address] [place] [address] Dr. Anna RomeroHemoglobin Ql (U)NegativeNormalNEGATIVEMercy Health St. [facility] on above:Performed By: #### ERUR #### [facility] [address] [place] [address] Dr. Anna RomeroKetones Ql (U)NegativeNormalNEGATIVESt. John Of God HospitalComment on above:Performed By: #### ERUR #### [facility] [address] [place] [address] Dr. Anna RomeroLEUKOCYTESNegativeNormalNEGATIVEParkwood Hospital on above:Performed By: #### ERUR #### [facility] [address] [place] [address] Dr. Anna RomeroNitrite Ql (U)NegativeNormalNEGATIVESt. John Of God HospitalComment on above:Performed By: #### ERUR #### [facility] [address] [address] [address] Anna RomeropH (U)6.5 [pH]Normal5-9ACMC Healthcare Systemment on above: Performed By: #### ERUR #### [facility] [address] [address] [address] Anna RomeroSPEC GRAVITY1.919Cedbnn2.005-<=1.025The Kandace HospitalComment on above:Performed By: #### ERUR #### [facility] [address] [place] [address] Dr. Anna Carmona PROTEINTRACENormalNEGATIVE/ TRACEThe [facility] HospitalComment on above:Performed By: #### ERUR #### [facility] [address] [place] [address] Dr. Anna Esparza MICRO INDNOT INDICATEDNormalThe Crawford HospitalComment on above:Performed By: #### ERUR #### [facility] [address] [place] [address] Dr. Anna Currybilinogen Qn (U)0.2 {Joel'U}/dLNormal0.2 - 1.0The [facility] HospitalComment on above:Performed By: #### ERUR #### [facility] [address] [place] [address] Dr. Anna RomeroGROUP A STREP CULTUREon 01-08-2023S. pyogenes Ag Ql (Unsp spec) Culture Observations: NEGATIVE FOR GROUP A STREPTOCOCCUS.NormalThe [facility]as HospitalComment on above: Performed By: #### SSCANTON GRASTCX #### [facility] [address] [place] [address] Dr. Anna RomeroSTREPT SCREENon [id number] SCREEN ANegativeNormalNEGATIVEThe [facility] HospitalComment on above:Performed By: #### CHELSI GRASTCX #### [facility] [address] [place] [address] Dr. Anna RomeroSYMPTOMATIC COVID-19 ANTIGENon [id number] StatementSEE BELOW NormalThe [facility] on above:Result Comment: This test has not [...] revoked sooner.Performed By: #### SSCRN, GRASTCX #### [facility] [address] [place] [address] Dr. Anna Bonilla-CoV-2 (COVID-19) RNA DAVY+probe Ql (Unsp spec)Positive AbnormalNEGATIVEThe [facility] HospitalComment on above:Performed By: #### SSCRN, GRASTCX #### [facility] [address] [place] [address] Dr. Anna Welsh PREG TVon [id number] PREG TVEXAMINATION: US PREG TV HISTORY: Irregular [...] authenticated by: GENI CABRAL Date: 2022-05-31 19:46NormalThe [facility] HospitalBILIRUBIN TOTALon [id number] [Mass/Vol]0.3 mg/dLNormal 0.2-1.0The [facility] HospitalComment on above:Performed By: #### TBIL #### [facility] [address] [place] [address] Dr. Anna RomeroCBC AUTO DIFFon [id number] #0.0 103/ulNormal0.0-0.1The [facility] HospitalComment on above:Performed By: #### CBC #### [facility] [address] [address] [address] Anna RomeroBasophils/100 WBC (Bld)0.4 %Normal0.2-2.0The [facility] on above:Performed By: #### CBC #### [facility] [address] [place] [address] Dr. Anna Davis #0.0 103/ulNormal0.0-0.7The [facility] HospitalComment on above: Performed By: #### CBC #### [facility] [address] [place] [address] Dr. Anna Renteriaosinophils/100 WBC (Bld)0.2 %Critically low0.9-7.0The [facility] HospitalComment on above:Performed By: #### CBC #### [facility] [address] [place] [address] Dr. Anna Renteriarythrocyte distribution width (RBC) [Ratio]12.8 %Somhwy26.0-15.0 The [facility]as HospitalComment on above:Performed By: #### CBC #### [facility] [address] [place] [address] Dr. Anna RomeroHematocrit (Bld) [Volume fraction]39.2 %Dljfyf30.0-48.0The [facility] HospitalComment on above:Performed By: #### CBC #### [facility] [address] [place] [address] Dr. Anna RomeroHemoglobin (Bld) [Mass/Vol]12.9 g/lTIgqgrb90.0-16.0The [facility] HospitalComment on above:Performed By: #### CBC #### [facility] [address] [place] [address] Dr. Anna Cardoza #0.01 10e3/ulNormal0.00-0.03The [facility] HospitalComment on above:Performed By: #### CBC #### [facility] [address] [place] [address] Dr. Anna Cardoza %0.2 %Normal0.0-0.5The [facility] HospitalComment on above: Performed By: #### CBC #### [facility] [address] [place] [address] Dr. Anna Sommers #1.6 103/ulNormal1.2-3.8The [facility] HospitalComment on above:Performed By: #### CBC #### [facility] [address] [place] [address] Dr. Anna Kayhocytes/100 WBC (Bld)29.8 %Lwdcix04.5-60.0The [facility] HospitalComment on above:Performed By: #### CBC #### [facility] [address] [place] [address] Dr. Anna Swain DIFF REQNONormalThe [facility] HospitalComment on above: Performed By: #### CBC #### [facility] [address] [place] [address] Dr. Anna Rubio (RBC) [Entitic mass]31.8 ybNvzmoc25.7-34.0The [facility] HospitalComment on above:Performed By: #### CBC #### [facility] [address] [place] [address] Dr. Anna Flores (RBC) [Mass/Vol]32.9 g/fAYfbmwm14.9-35.2The [facility] on above:Performed By: #### CBC #### [facility] [address] [place] [address] Dr. Anna Anderson (RBC) [Entitic vol]96.6 nCTxwtnh93.0-99.0The [facility] HospitalComment on above:Performed By: #### CBC #### [facility] [address] [place] [address] Dr. Anna Alamo #0.4 103/ulNormal0.3-0.8The [facility] HospitalComasc[facility] on above:Performed By: #### CBC #### [facility] [address] [place] [address] Dr. Anna Parksocytes/100 WBC (Bld)7.2 %Normal1.7-12.0The [facility] Comment on above:Performed By: #### CBC #### [facility] [address] [place] [address] Dr. Anna Jasso #3.3 103/ulNormal1.4-6.5The [facility] HospitalComment on above:Performed By: #### CBC #### [facility] [address] [place] [address] Dr. Anna Hirschutrophils/100 WBC (Bld)62.2 %Cmuilp22.0-75.0The [facility] HospitalComment on above:Performed By: #### CBC #### [facility] [address] [place] [address] Dr. Anna Amaya mean volume (Bld) [Entitic vol]10.0 fLNormal9.5-13.5The [facility] HospitalComment on above:Performed By: #### CBC #### [facility] [address] [place] [address] Dr. Anan RetanaT153 103/hwVkltbz440-715Zga [facility] HospitalComment on above: Performed By: #### CBC #### [facility] [address] [place] [address] Dr. Anna TonyC4.06 106/ulCritically low4.20-5.40The [facility] HospitalComment on above:Performed By: #### CBC #### [facility] [address] [place] [address] Dr. Anna BarkleyBC5.3 103/ulNormal4.0-11.0The [facility] HospitalComment on above: Performed By: #### CBC #### [facility] [address] [place] [address] Dr. Anna Rockwell T3on 13-64-9718WVTX T33.18 pg/mlLNormal2.18-3.98The [facility] HospitalComment on above:Performed By: #### SSCRN, GRASTCX #### [facility] [address] [place] [address] Dr. Anna Rockwell T4on 99-03-9255Gqkw T4 [Mass/Vol]1.08 ng/dLNormal0.76-1.46 The [facility] HospitalComment on above:Performed By: #### FT4 #### [facility] [address] [place] [address] Dr. Anna RomeroPROF 14(COMP METB)on [id number] [Mass/Vol]4.3 g/dLNormal 3.4-5.0The [facility] HospitalComment on above:Performed By: #### SSCRN, GRASTCX #### [facility] [address] [place] [address] Dr. Anna RomeroAlbumin/Globulin [Mass ratio]1.2 {ratio}NormalThe [facility] HospitalComment on above:Performed By: #### SSCRN, GRASTCX #### [facility] [address] [place] [address] Dr. Anna Santos [Catalytic activity/Vol]60 U/JMxcxox37-607Qoe [facility] HospitalComment on above:Performed By: #### SSCRN, GRASTCX #### [facility] [address] [place] [address] Dr. Anna Brink [Catalytic activity/Vol]25 U/TYfzirh57-25Apf [facility] HospitalComment on above:Performed By: #### SSCRN, GRASTCX #### [facility] [address] [place] [address] Dr. Anna Williamson gap [Moles/Vol]13.8 mmol/LNormalThe [facility] Comment on above:Performed By: #### SSCRN, GRASTCX #### [facility] [address] [place] [address] Dr. Anna RomeroAST [Catalytic activity/Vol]21 U/RGbdoyk72-06Ypp [facility] HospitalComment on above:Performed By: #### SSCRN, GRASTCX #### [facility] [address] [place] [address] Dr. Anna RomeroCalcium [Mass/Vol]9.4 mg/dLNormal8.5-10.1The [facility] Comment on above:Performed By: #### SSCRN, GRASTCX #### [facility] [address] [address] [address] Anna RomeroChloride [Moles/Vol]101 mmol/JZpncea02-389VcoSt. John Of God Hospital Comment on above:Performed By: #### SSCRN, GRASTCX #### [facility] [address] [address] [address] Anna RomeroCO2 [Moles/Vol]26.8 mmol/ZXqmdcl28.0-32.0The [facility] Comment on above:Performed By: #### SSCRN, GRASTCX #### [facility] [address] [place] [address] Dr. Anna RomeroCreatinine [Mass/Vol]0.87 mg/dLNormal0.55-1.02St. [facility] HospitalComment on above:Performed By: #### SSCRN, GRASTCX #### [facility] [address] [place] [address] Dr. Anna RenteriaGFR-AF PITCAIRN ISLANDER>60Normal>=60The [facility] HospitalComment on above:Performed By: #### SSCRN, GRASTCX #### [facility] [address] [place] [address] Dr. Anna RenteriaGFR-NON AF PITCAIRN ISLANDER>60Normal>=60St. [facility] HospitalComment on above:Performed By: #### SSCRN, GRASTCX #### [facility] [address] [place] [address] Dr. Anna RomeroGlobulin (S) [Mass/Vol]3.5 g/dLNormalThe [facility] HospitalComment on above:Performed By: #### SSCRN, GRASTCX #### [facility] [address] [place] [address] Dr. Anna RomeroGlucose [Mass/Vol]80 mg/yXZxhtxi61-122UklSt. John Of [facility] Hospital Comment on above:Performed By: #### SSCRN, GRASTCX #### [facility] [address] [place] [address] Dr. Anna RoemroPotassium [Moles/Vol]3.6 mmol/LNormal3.5-5.1The [facility] Comment on above:Performed By: #### SSCRN, GRASTCX #### [facility] [address] [place] [address] Dr. Anna RomeroProtein [Mass/Vol]7.8 g/dLNormal6.4-8.2The [facility] Comment on above:Performed By: #### SSCRN, GRASTCX #### [facility] [address] [place] [address] Dr. Anna RomeroSodium [Moles/Vol]138 mmol/YGlqpia132-488Ydk [facility] Comment on above:Performed By: #### SSCRN, GRASTCX #### [facility] [address] [place] [address] Dr. Anna RomeroUrea nitrogen [Mass/Vol]12.0 mg/dLNormal7.0-18.0St. [facility] HospitalComment on above:Performed By: #### SSCREleanor, GRASTCX #### [facility] [address] [place] [address] Dr. Anna Buenrostro nitrogen/Creatinine [Mass ratio]13.8 mg/mgNoUC Medical CenterComment on above:Performed By: #### SSCREleanor, GRASTCX #### [facility] [address] [place] [address] Dr. Anna Marshall 34-19-5273JHN0.442 uIU/mLNormal0.358-3.740St. [facility] Of [facility] HospitalComment on above:Performed By: #### SSCRN, GRASTCX #### [facility] [address] [place] [address] Dr. Anna ANGUIANO BELOWTrumbull Regional Medical CenterComment on above: Result Comment: <0.34 UIU/ml HYPERTHYROID 0.34-5.60 UIU/ml EUTHYROID >5.60 UIU/ml HYPOTHYROIDPerformed By: #### SSCRN, GRASTCX #### [facility] [address] [address] [address] Anna Romero Vital Signs Date TimeVital SignValuePerforming EncrhaohsLcogwycf55-75-9425 11:08-0500Body mass index (BMI) [Ratio]26.53 kg/y0Uhmyz Nii DO Work Phone: [phone] [place], [place] [address]Idnidozcwm45-17-1220 11:08-0500Body .57 kgCorey Nii DO Work Phone: [phone] [place], [place] [address]Xsyjsqxyzm37-17-0626 11:08-0500Diastolic blood dzqsjici43 mm[Hg]Marco Nii DO Work Phone: [phone] [place], [place] [address]Adkjmebdqn76-43-2341 11:08-0500Systolic blood guykauxo316 mm[Hg]Marco Nii DO Work Phone: [phone] [place], [place] [address]Nudbtdwboj21-04-9411 10:14-0400Body mass index (BMI) [Ratio]25.74 kg/m2Amy Krys PA Work Phone: [phone] [place], [place] [address]Tafpbigimi66-36-9767 10:14-0400Body hjreot09.35 kgAmy Krys PA Work Phone: [phone] [place], [place] [address]Oxlzqotyio63-30-3378 10:14-0400Diastolic blood mtpsbbek48 mm[Hg]Rosana Marcano PA Work Phone: [phone] [place], [place] [address]Rfjsxeqbma18-86-1470 10:14-0400Systolic blood vmrhvinq554 mm[Hg]Rosana Marcano PA Work Phone: [phone] [place], [place] [address]Ohuckeskjz79-56-8106 10:08-0400Body mass index (BMI) [Ratio]24.29 kg/j0VjxzbqdlDrew Solorio CAN DRYER Work Phone: [phone] [place], [place] [address]Utfhaunebt44-02-5196 10:08-0400Body depgkl65.27 kgDrew Solorio CAN DRYER Work Phone: [phone] [place], [place] [address]Qqoutxnudv90-09-7041 10:08-0400Diastolic blood nwrzfcih98 mm[Hg]Drew Solorio CAN DRYER Work Phone: [facility] CenterWrrhgytpju17-37-7377 10:08-0400Systolic blood osnzonsh819 mm[Hg]Drew Solorio CAN DRYER Work Phone: [phone] [place], [place] [address]Jndgfurvwo59-89-9251 09:58-0400Body mass index (BMI) [Ratio]23.91 kg/m3Rpvhs Nii DO Work Phone: [phone] [place], [place] [address]Bkbkwjngud95-41-1768 09:58-0400Body mboyxs07.19 kgCorey Nii DO Work Phone: [phone] [place], [place] [address]Laqmmttysc24-25-6479 09:58-0400Diastolic blood rcdpytoa99 mm[Hg]Marco Nii DO Work Phone: [phone] [place], [place] [address]Ruvfibrzwv54-69-9736 09:58-0400Systolic blood tdldjsam695 mm[Hg]Marco Nii DO Work Phone: [phone] [place], [place] [address]Buliihjhgn23-98-0459 10:15-0400Body mass index (BMI) [Ratio]22.4 kg/f7Sytdo Nii DO Work Phone: [phone] [place], [place] [address]Gqnmrsczgn78-52-6998 10:15-0400Body .96 kgCorey Nii DO Work Phone: [phone] [place], [place] [address]Ivlekfrgum27-69-4494 10:15-0400Diastolic blood atsalbza36 mm[Hg]Marco Nii DO Work Phone: [phone] [place], [place] [address]Fuhyvkanby47-42-0042 10:15-0400Systolic blood mm[Hg]Marco Nii DO Work Phone: [phone] [place], [place] [address]Wrdbogbahs10-03-9526 11:07-0400Body mass index (BMI) [Ratio]21.79 kg/n3BxgroMount [facility] Hospital08-01-2025 11:07-0400Body weight 61.24 kgMount [facility] Hospital02-14-2024 14:46-0500Body mass index (BMI) [Ratio]25.66 kg/m2Rosana HAYES Work Phone: [phone] [place], [place] [address]Fsnfsosusz12-59-4986 14:46-0500Body omcxry98.12 kgRosana HAYES Work Phone: noHannibal Regional HospitalCbwdsshsdo90-64-3467 14:46-0500Diastolic blood qsezofxt07 mm[Hg]Rosana HAYES Work Phone: noHannibal Regional HospitalVsuplyuajz18-76-3889 14:46-0500Systolic blood ihhuxzjf569 mm[Hg]Rosana HAYES Work Phone: [facility] CenterXjcnwpnquw67-83-6657 12:21-0500Body lwcurt790.2 cmHaseeb Nice MD Work Phone: [phone] [place], [place] [address]01-03-2024 12:21-0500Body mass index (BMI) [Ratio]22.55 kg/m2Haseeb Nice MD Work Phone: [phone] [place], [place] [address]01-03-2024 12:21-0500Body yiunfz15.32 kgHaseeb Nice MD Work Phone: [phone] [place], [place] [address]01-03-2024 12:21-0500Diastolic blood biwktujw48 mm[Hg]Haseeb Nice MD Work Phone: [phone] [place], [place] [address]01-03-2024 12:21-0500Heart rate 79 /minHaseeb Nice MD Work Phone: [phone] [place], [place] [address]01-03-2024 12:21-0500Systolic blood itqtvlis582 mm[Hg]Haseeb Nice MD Work Phone: [phone] [place] [address] Encounters Encounter DateEncounter TypeCare ProviderFacilityStart: 08-23-2025 End: 32-17-8815Ehxxzgvov Result EncounterRosana HAYES Work Phone: n[facility] External Department UnsolicitedStart: 08-23-2025 End: 86-66-3186Baxwonlym Result EncounterRosana HAYES Work Phone: noms External Department UnsolicitedStart: 08-23-2025 End: 91-00-6813Ihskgz outpatient visit 15 minutesCorey Nii DO Work Phone: [facility] OBGYNComment on above:Third trimester ([facility]); 31 weeks gestation of ([facility])Start: 08-23-2025 End: 75-54-3928prjajwbwqhNPPTK FAZIONot AvailableStart: 08-09-2025 End: 40-15-3019Hggjeh Bob HAYES Work Phone: [facility] OBGYNStart: 08-09-2025 End: 67-89-7925Xrjmwq Bob HAYES Work Phone: [facility] OBGYNStart: 08-09-2025 End: 10-38-3284xeotziabtqCSO RAMEYNot AvailableStart: 08-09-2025 End: 62-97-0852Ackyef outpatient visit 15 minutesRosana HAYES Work Phone: [facility]ace OBGYNComment on above: size inconsistent with dates ([facility]) (Primary Dx); Third trimester ([facility]); 29 weeks gestation of ([facility]); History of miscarriage; History of oligohydramnios; Thyroid disease; Acquired autoimmune hypothyroidismStart: 07-21-2025 End: 93-82-5509Btsggx Jaja Solorio NP Work Phone: [facility] OBGYNStart: 07-21-2025 End: 34-42-6165Rhdxnj Jaja Solorio NP Work Phone: [facility] OBGYNStart: 07-21-2025 End: 35-87-1463buycshfouqPBDZBXSE EBERLYNot AvailableStart: 07-21-2025 End: 95-68-4658Pzlelk outpatient visit 15 minutesDrew Solorio NP Work Phone: [facility] Crawford OBGYNComment on above:Acquired autoimmune hypothyroidism (Primary Dx); Second trimester ([facility]); 26 weeks gestation of ([facility]); Depression affecting ([facility])Start: 06-22-2025 End: 49-15-0415Scgvtl flowsheetCorey Nii DO Work Phone: NOZZ Kandace OBGYNStart: 06-22-2025 End: 35-99-6589Qnprdm flowsheetCorey Nii DO Work Phone: [facility] OBGYNStart: 06-22-2025 End: 19-94-8867Sfsfiw outpatient visit 15 minutesCorey Nii DO Work Phone: [facility] Crawford OBGYNComment on above:22 weeks gestation of ([facility]); Second trimester ([facility]); Thyroid disease ; Diabetes mellitus screeningStart: 06-22-2025 End: 18-26-8519aamjaibtgxBPLCF FAZIONot AvailableStart: 06-09-2025 End: 77-20-2365Utobcwwng Result EncounterCorey Nii DO Work Phone: NORJ External Department UnsolicitedStart: 06-09-2025 End: 47-31-8692Csnfdehnp Result EncounterCorey Nii DO Work Phone: NOMS External Department UnsolicitedStart: 06-09-2025 End: 91-55-5640tguispogbpEAVMK FAZIONot AvailableStart: 05-25-2025 End: 03-24-4371Nyajrl flowsheetCorey Nii DO Work Phone: [facility] K[facility]ace OBGYNStart: 05-25-2025 End: 24-02-7154Ygasgo flowsheetCorey Nii DO Work Phone: [facility] K[facility]ace OBGYNStart: 05-25-2025 End: 34-57-9158Gqsdoywhu Result EncounterCorey Nii DO Work Phone: NOMS External Department UnsolicitedStart: 05-25-2025 End: 91-72-8357Ocyvrhqq Result EncounterCorey Nii DO Work Phone: NOMS External Department UnsolicitedStart: 05-25-2025 End: 66-02-6545Ioxmsfq encounter procedureCorey Nii DO Work Phone: noms HealthcareStart: 05-25-2025 End: 83-71-0664Wacxzbac preventive med est patient 18-39 yrsCorey Nii DO Work Phone: noms Crawford OBGYNComment on above:18 weeks gestation of ([facility]); Second trimester ([facility]); Well woman exam with routine gynecological exam; Screening, , for anatomic survey ([facility]); Exposure to STD; Vaginal discharge; Thyroid diseaseStart: 05-25-2025 End: 80-14-1434crsnsiqcodDCBZB FAZIONot AvailableStart: 05-14-2025 End: 99-27-2997Udvkdv outpatient visit 5 minutesFawestley Nurse Noms Bcp ObNOMS Kandace OBGYNComment on above:GA: 72b3tJhskl: 05-14-2025 End: 05-32-7947wyykebuesiXBFGY FAZIONot AvailableStart: 02-10-2024 End: 43-20-5386Axdwjrsuj Result EncounterCorey Nii DO Work Phone: noms External Department UnsolicitedStart: 02-10-2024 End: 38-25-1952Ubdxujyug Result EncounterCorey Nii DO Work Phone: noms External Department UnsolicitedStart: 02-04-2024 End: 19-25-2668Qanwzmjjb Result EncounterCorey Nii DO Work Phone: noms External Department UnsolicitedStart: 02-04-2024 End: 41-04-2816Ldmyyxmsh Result EncounterCorey Nii DO Work Phone: noms External Department UnsolicitedStart: 01-27-2024 End: 62-55-8530Mrhcrukqm Result EncounterCorey Nii DO Work Phone: noms External Department UnsolicitedStart: 01-27-2024 End: 35-26-0710Ocghktmbo Result EncounterCorey Nii DO Work Phone: noms External Department UnsolicitedStart: 01-21-2024 End: 44-85-7130Ptxxfzupm Result EncounterCorey Nii DO Work Phone: NOVP External Department UnsolicitedStart: 01-21-2024 End: 66-39-3677Bjqgrzeox Result EncounterCorey Nii DO Work Phone: NOGC External Department UnsolicitedStart: 01-13-2024 End: 75-43-4380Yvexwlbve Result EncounterCorey Nii DO Work Phone: noms External Department UnsolicitedStart: 01-13-2024 End: 23-15-0690Mjfljjduq Result EncounterCorey Nii DO Work Phone: noms External Department UnsolicitedStart: 01-07-2024 End: 21-25-5969Gbjzhoudl Result EncounterCorey Nii DO Work Phone: NOIA External Department UnsolicitedStart: 01-07-2024 End: 95-21-2248Khvobsjol Result EncounterCorey Nii DO Work Phone: noms External Department UnsolicitedStart: 12-30-2023 End: 56-75-7441Tgnrpujbh Result EncounterCorey Nii DO Work Phone: noms External Department UnsolicitedStart: 12-30-2023 End: 75-29-5494Fyqugyizv Result EncounterCorey Nii DO Work Phone: NOHU External Department UnsolicitedStart: 12-23-2023 End: 27-93-8800Yjstcthqp Result EncounterCorey Nii DO Work Phone: noms External Department UnsolicitedStart: 12-23-2023 End: 94-00-9633Mlxaemhzo Result EncounterCorey Nii DO Work Phone: noms External Department UnsolicitedStart: 12-16-2023 End: 56-90-6479Wlprplukx Result EncounterCorey Nii DO Work Phone: noms External Department UnsolicitedStart: 12-16-2023 End: 89-56-7579Ajqfbonmo Result EncounterCorey Nii DO Work Phone: noms External Department UnsolicitedStart: 12-09-2023 End: 60-51-3706Yokevmiej Result EncounterCorey Nii DO Work Phone: noms External Department UnsolicitedStart: 12-09-2023 End: 78-74-3195Dqkrybbzw Result EncounterCorey Nii DO Work Phone: noms External Department UnsolicitedStart: 11-27-2023 End: 49-89-8740Fygtdb outpatient visit 15 minutesAmy Krys HAYES Work Phone: [facility] OBComment on above:Second trimester ; with normal glucose tolerance test (GTT); Diabetes mellitus screening; History of miscarriage; History of oligohydramniosStart: 11-19-2023 End: 30-56-9106uorvqpkqkpQDGED R [facility]tart: 10-29-2023 End: 47-08-0666xnbnawrxyrQDQTRKindred Hospital Daytontart: 14-03-8312Rknaguyzltyyq procedureHind Darius Nice MD Work Phone: [phone]-Iumji Medicine at [facility] Comment on above:History of oligohydramnios in prior , currently (Primary Dx); 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; History of delivery, currently Start: 29-68-3448Zmdhfaxpg encounterRachelle Mullen LPNMaternal- Medicine at [facility] Start: 93-51-2422Fjnhi Vida Rollins MD Work Phone: [phone]-Wbxyc Medicine at [facility] Start: 11-84-1990Qcmjpk Grace Rodriguez CMAMaternal- Medicine at [facility] HospitalComment on above:History of oligohydramnios in prior , currently (Primary Dx)Start: 10-16-2023 End: 51-59-9791rpkbplllhmOGFXC R FA[facility]ICherrington Hospital HospitalStart: 10-16-2023 End: 54-44-9802Zpwyux outpatient new 45 minutesHind Darius Nice MD Work Phone: [phone]-Tfffl Medicine at [facility] Comment on above:High-risk in second trimester (Primary Dx); History of oligohydramnios in prior , currently ; 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; 20 weeks gestation of pregnancyStart: 74-36-7071Xksyg abstractingScanning Provider ExternalMaternal- Medicine at [facility] Southtart: 01-28-2023 End: 62-10-4932aavhfqekmnFZ COREY FAZIO .Facility:E6Mjrac: 01-23-2023 End: 66-16-3451khrjqsbpiaAN COREY FAZIO .Facility:G4Fxara: 01-22-2023 End: 59-33-7876notqkjpaydGBUXVF DIAB .Facility:F8Alqgu: 01-21-2023 End: 08-99-0702nzscqjhzqrRJIAFJY D KATKOFacility:K7Vxntq: 01-08-2023 End: 79-96-5552etywfqzixeQI STEPHEN G REINECKFacility:O5Ptfql: 10-20-2022 End: 29-17-1449imiihgbeddCKDLKJD D KATKOFacility:Q5Xwofa: 86-76-8642phqcoapyqhXI COREY FAZIO .Facility:F7Utrmc: 05-31-2022 End: 63-32-1979byeisjnskaSI COREY FAZIO .Facility:O0Xobyn: 80-13-1833ggfrgyaiwr DR MARCO BALES .Facility:G6Wufkt: 03-16-2022 End: 66-47-6110yjpgnfibbeHW KIM E KNIGHT .Facility:D2Kqljz: 03-03-2022 End: 43-00-5080pwayarsgmqKTBXGLI D KATKOFacility:H1 Procedures DateProcedureProcedure DetailPerforming ClinicianStart: 05-32-4555Ijhoq dip stick/tablet rgnt non-auto w/o micrscpCorey Nii DO Work Phone: Start: 83-42-8490PYV CBC WITH AUTO DIFFAmy Krys HAYES Work Phone: Start: 88-38-7001Rlgly dip stick/tablet rgnt non-auto w/o micrscpAmy Krys HAYES Work Phone: Start: 97-90-0286Gwrsr dip stick/tablet rgnt non-auto w/o micrscpDrew Solorio NP Work Phone: Start: 48-89-8007Pidlb dip stick/tablet rgnt non-auto w/o micrscpCorey Nii DO Work Phone: Start: 09-33-7635VJI CBC WITH AUTO DIFFCorey Nii DO Work Phone: Start: 11-74-6376RBLXDSZAO VAGINITIS (HTRX)Marco Nii DO Work Phone: Start: 87-74-8828Ahkxz dip stick/tablet rgnt non-auto w/o micrscpCorey Nii DO Work Phone: Start: 73-40-7592SJN,APTIMA HPV,AGE GDLNCorey Nii DO Work Phone: Start: 25-46-4093Mixdyeeznwa observation [Identifier] in Cervix by Cyto stainCorey Nii DO Work Phone: Start: 05-14-2025 End: 13-14-8443Xlwvh dip stick/tablet rgnt non-auto w/o micrscpCorey Nii DO Work Phone: Start: 03-09-4067WJ OB BPP W NON-STRESSCorey Nii DO Work Phone: Start: 97-94-7146VY OB GROWTHCorey Nii DO Work Phone: Start: 07-42-4397TC OB BPP W NON-STRESSCorey Nii DO Work Phone: Start: 51-34-2498SA OB BPP W NON-STRESSCorey Nii DO Work Phone: Start: 49-03-1464VC OB BPP W NON-STRESSCorey Nii DO Work Phone: Start: 33-29-8925LG OB BPP W NON-STRESSCorey Nii DO Work Phone: Start: 11-22-8342PAU CBC WITH AUTO DIFFRosana HAYES Work Phone: Start: 69-29-9087TRQYRYZ 1 HOURAmy Krys HAYES Work Phone: Start: 08-62-6282UB OB BPP W NON-STRESSCorey Nii DO Work Phone: Start: 14-30-3707CT OB GROWTHCorey Nii DO Work Phone: Start: 71-18-5396XN OB BPP W NON-STRESSCorey Nii DO Work Phone: Start: 07-95-4861SU OB BPP W NON-STRESSCorey Nii DO Work Phone: Start: 72-32-4210RG OB BPP W NON-STRESSCorey Nii DO Work Phone: Start: 64-83-2083AN OB GROWTHCorey Nii DO Work Phone: Start: 33-69-2007HT OB BPP W NON-STRESSCorey Nii DO Work Phone: Start: 96-92-6268Jbgjy dip stick/tablet rgnt non-auto w/o micrscpAmy Krys HAYES Work Phone: Start: 37-10-0433Dvylrlodrni observation [Identifier] in Cervix by Cyto stainNii Ob Plan of Treatment DateCare ActivityDetailAuthorStart: 10-14-7077JKjV,Tdap and Td Vaccines (9 - Td or Tdap)DTaP,Tdap and Td Vaccines (9 - Td or Tdap)[facility] SystemStart: 43-13-4818Fijyuxasg for malignant neoplasm of cervixNOMS HealthcareStart: 54-49-5794Sxjuztlch for malignant neoplasm of cervixPap SmearNOMS Healthcare Start: 11-08-2025 End: 58-13-5305Toopkem encounter wdsryphsp42/26/2026 10:10 AM EST Consult [facility] OBTRACI [address] [place] [address] Marco Bales, DO [address] [place] [address] N[facility] Kandace OBGYNStart: 09-07-2025 End: 13-74-3293Lqubcjc encounter evvuenesm11/25/2025 9:30 AM EST Routine [facility] OBGYEleanor [address] [facility] [place], [id number] Rosana Marcano PA [address] [place] [address] N[facility] Kandace OBGYNStart: 08-23-2025 End: 26-21-5555Honxzuy encounter dzsysoekx39/10/2025 11:00 AM EST Routine [facility] [address] [facility] [phone] Marco Bales, DO [address] [place] [address] [facility] Kandace OBGYNStart: 08-23-2025 End: 77-20-4370Mgiwodhhhtut / ancillary services osbnrtlrlz69/10/2025 10:30 AM EST Ancillary Procedure [facility] [address] [place] [id number] N[facility] Kandace OBGYNStart: 08-09-2025 End: 86-52-7304VN for pregnancyUS OB follow up transabdominal approach Imaging Routine History of miscarriage History of oligohydramnios Thyroid disease Expected: 08/09/2025, Expires: 12/10/2025[facility] HealthcareComment on above: Expected: 08/09/2025, Expires: 12/10/2025Start: 08-03-2025 End: 90-14-6477Dfwwswp encounter txasicmag86/21/2025 1:20 PM EDT Routine KEEGAN DIETZ [address] [facility] [facility] [address] [place], [id number] Rosana Marcano PA [address] [place], [place] [id number] NOMJovany [place] OBGYNStart: 07-21-2025 End: 86-36-6576Bjrikma encounter lolkgyzdi44/08/2025 10:00 AM EDT Routine NOMJovnay DIETZ [address] [facility] [place] [address] Drew Solorio, CAN DRYER [address] [place] [address] YUNGJovany Kandace OBGYNStart: 06-22-2025 End: 76-58-5500PAM panel - Blood by Automated countCBC Lab Routine Diabetes mellitus screening Expected: 06/22/2025 (Approximate), Expires: 06/22/2026[facility] Work Phone: comment on above:Expected: 06/22/2025 (Approximate), Expires: 06/22/2026Start: 06-22-2025 End: 02-92-5315Nnrhernvyub of glucose 1 hour after glucose challenge for glucose tolerance testGlucose tolerance, 1 hour Lab Routine Diabetes mellitus screening Expected: 06/22/2025 (Approximate), Expires: 06/22/2026[facility] HealthcareComment on above:Expected: 06/22/2025 (Approximate), Expires: 06/22/2026Start: 06-22-2025 End: 63-63-1847Lnjzejc encounter procedureNOMS Kandace OBGYNComment on above: ArrivedStart: 81-87-1151BRGCE-19 Vaccine ( season)COVID-19 Vaccine ( season)NOMS HealthcareStart: 38-64-9913Bbknuvoju vaccinationInfluenza Vaccine (#1)[facility]OMS HealthcareStart: 06-09-2025 End: 55-01-9270Rahmbztrusnl / ancillary services vuxxdieunf15/27/2025 11:00 AM EDT Ancillary Procedure [facility] [address] [facility] [place] [address] NOUK Kandace OBGYNStart: 05-25-2025 End: 39-60-2375Tlzcb fetoprotein, maternalAlpha fetoprotein, maternal Lab Routine 18 weeks gestation of ([facility]) Second trimester ([facility]) Expected: 05/25/2025 (Approximate), Expires: 07/25/2025[facility] Comment on above:Expected: 05/25/2025 (Approximate), Expires: 07/25/2025Start: 05-25-2025 End: 71-69-7352Tllyfskyaqw [Units/volume] in Serum or PlasmaTSH Lab Routine Thyroid disease Expected: 05/25/2025 (Approximate), Expires: 05/25/2026[facility] HealthcareComment on above:Expected: 05/25/2025 (Approximate), Expires: 05/25/2026Start: 05-25-2025 End: 43-07-2254NS for pregnancyUS OB 14+ weeks anatomy scan Imaging Routine Screening, , for anatomic survey ([facility]) Expected: 05/25/2025, Expires: 08/25/2025[facility] HealthcareComment on above:Expected: 05/25/2025, Expires: 08/25/2025Start: 05-25-2025 End: 30-45-9657Vsszxqo encounter procedureNOMS Kandace OBGYNComment on above: ArrivedStart: 05-14-2025 End: 94-56-9384VUY/RhABO/Rh Lab Routine Missed menses , unspecified gestational age ([facility]) Expected: 05/14/2025 (Approximate), Expires: 05/14/2026[facility] HealthcareComment on above:Expected: 05/14/2025 (Approximate), Expires: 05/14/2026Start: 05-14-2025 End: 51-98-1974Pxqpo type and Indirect antibody screen panel - BloodType and screen Lab Routine Missed menses , unspecified gestational age ([facility]) Expected: 05/14/2025 (Approximate), Expires: 05/14/2026[facility] Work Phone: Comment on above:Expected: 05/14/2025 (Approximate), Expires: 05/14/2026Start: 05-14-2025 End: 88-73-4943Vyole of abuse panel - Urine by Screen methodRapid drug screen, urine Lab Routine , unspecified gestational age ([facility]) Encounter for supervision of normal first in first trimester ([facility]) Expected: 05/14/2025 (Approximate), Expires: 05/14/2026[facility] HealthcareComment on above: Expected: 05/14/2025 (Approximate), Expires: 05/14/2026Start: 10-22-2024 End: 91-26-5890GC MFM with or without consultUS MFM with or without consult Imaging Routine History of oligohydramnios in prior , currently 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 History of delivery, currently Expected: 10/22/2024 (Approximate), Ex[facility]: [facility]2024[facility] Work Phone: Comment on above:Expected: 10/22/2024 (Approximate), Expires: 10/22/2024Start: 10-17-2024 End: 28-30-8082RV MFM with or without consultUS MFM with or without consult Imaging Routine History of oligohydramnios in prior , currently Expected: 10/17/2024 (Approximate), Expires: 10/17/2024[facility] Work Phone: Comment on above:Expected: 10/17/2024 (Approximate), Expires: 10/17/2024Start: 56-69-6272Neyws BMI ScreeningAdult BMI Screening [facility] SystemStart: 80-28-7483Ocjpkpc ScreeningTobacco Screening [facility] SystemStart: 12-11-2023 End: 18-55-9638Zwyzgoq encounter ausvnwheh60/28/2024 10:20 AM EST Routine [facility] OB [address] [facility] [place] [address] Marco Bales, DO [address] [place] [address] NOMS BCP OBStart: 11-27-2023 End: 54-12-6548MIV panel - Blood by Automated countCBC Lab Routine Diabetes mellitus screening Expected: 11/27/2023 (Approximate), Expires: 11/27/2024[facility] Work Phone: comment on above:Expected: 11/27/2023 (Approximate), Expires: 11/27/2024Start: 11-27-2023 End: 28-86-7796Jgwwncfcfbz of glucose 1 hour after glucose challenge for glucose tolerance testGlucose tolerance, 1 hour Lab Routine Diabetes mellitus screening Expected: 11/27/2023 (Approximate), Expires: 11/27/2024[facility] HealthcareComment on above:Expected: 11/27/2023 (Approximate), Expires: 11/27/2024Start: 11-27-2023 End: 52-06-0498SD biophysical profile w non stress testUS biophysical profile w non stress test Imaging Routine History of miscarriage History of oligohydramnios Expected: 11/27/2023 (Approximate), Expires: 11/27/2024[facility] HealthcareComment on above:Expected: 11/27/2023 (Approximate), Expires: 11/27/2024Start: 11-27-2023 End: 06-84-2820UA for pregnancyUS OB SCAN FOR GROWTH Imaging Routine History of miscarriage History of oligohydramnios Expected: 11/27/2023 (Approximate), Expires: 11/27/2024[facility] HealthcareComment on above:Expected: 11/27/2023 (Approximate), Expires: 11/27/2024Start: 11-19-2023 End: 66-28-0954Uymsdau encounter bbzjtgzku89/06/2024 9:15 AM EST Appointment [facility] - Ultrasound [address] [place] [address] [facility]ZcmxkyMagruder [facility] - UltrasoundStart: 10-29-2023 End: 11-53-8299Hajpchz encounter wvitxrdws23/16/2024 9:15 AM EST Appointment [facility] - Ultrasound [address] [place] [address] DutXwtjokUniversity Hospitals [facility] - UltrasoundStart: 10-16-2023 End: 47-87-1147Tznavjo encounter puohhtpgl15/03/2024 1:00 PM EST Office Visit Maternal- Medicine at [facility] [address] [place] [address] Haseeb Nice MD [address], [address] [place] [address], [id number] M[facility]- [facility] at [facility] Southtart: 52-86-3137Oevzvpwkuo hospital visit by physician 10/16/2023 11:30 AM EST Hospital Encounter [facility] - [facility] US Imaging [address] [place] [address] [phone] Clinic [facility] - [facility] US ImagingStart: 41-96-8766Npewzblgz vaccinationInfluenza Vaccine [facility] SystemStart: 05-44-1836THD Vaccines (1 - 3-dose SCDM series)HPV Vaccines (1 - 3-dose SCDM series)[facility] HealthcareStart: 29-86-2437Oemdjcrdb for malignant neoplasm of cervixPap SmearKindred Hospital [facility] SystemStart: 2012 DTaP,Tdap and Td Vaccines (1 - Tdap)DTaP,Tdap and Td Vaccines (1 - Tdap) [facility] SystemStart: 81-29-3057Kcyqwrzkx B Vaccines (1 of 3 - 19+ 3- dose series)Hepatitis B Vaccines (1 of 3 - 19+ 3-dose series)[facility] Start: 60-81-3147Kqxnv BMI ScreeningAdult BMI ScreeningKindred Hospital [facility] System Start: 26-92-3600Ichxrrb of varicella vaccinationVaricella Vaccines (1 of 2 - 13+ 2-dose series)[facility] HealthcareStart: 12-38-4176Wvvqcskcdf ScreeningDepression ScreeningKindred Hospital [facility] SystemStart: 05-99-1519Qtydrcl ScreeningTobacco ScreeningKindred Hospital [facility] SystemStart: 59-39-0703BVwY/Tdap/Td Vaccines (1 - Tdap)DTaP/Tdap/Td Vaccines (1 - Tdap)[facility] HealthcareStart: 71-24-6204YUF Vaccines (1 of 1 - Standard series)MMR Vaccines (1 of 1 - Standard series)[facility] HealthcareStart: 48-39-9187Ifhndgx CounselingTobanortheastern health system sequoy[facility] – [facility] CounselingBerger HospitalBacteria identified in Urine by CultureUrine culture Microbiology Routine Missed menses Ordered: 05/14/2025[facility] HealthcareComment on above:Ordered: 05/14/2025BC W Auto Differential panel - BloodCBC and differential Lab Routine Missed menses , unspecified gestational age ([facility]) Ordered: 05/14/2025[facility] HealthcareComment on above:Ordered: 05/14/2025BC W Auto Differential panel - BloodCBC and differential Lab Routine 29 weeks gestation of ([facility]) Ordered: 08/09/2025[facility] Healthcare Work Phone: comment on above:Ordered: 08/09/2025HLAMYDIA TRACHOMATIS (GENITO/STI)CHLAMYDIA TRACHOMATIS (GENITO/STI) Lab Routine Exposure to STD Ordered: 05/25/2025[facility] HealthcareComment on above:Ordered: 05/25/2025 Cytology Cervical or vaginal smear or scraping studyPap Smear Pathology and Cytology Routine Well woman exam with routine gynecological exam Ordered: [facility] HealthcareComment on above:Ordered: 05/25/2025Hemoglobin A1c/Hemoglobin.total in BloodHemoglobin A1c Lab Routine Missed menses , unspecified gestational age ([facility]) Ordered: 05/14/2025[facility] HealthcareComment on above:Ordered: 05/14/2025Hemoglobin A1c/Hemoglobin.total in BloodHemoglobin A1c Lab Routine 29 weeks gestation of ([facility]) Ordered: 08/09/2025 [facility] HealthcareComment on above:Ordered: 08/09/2025Hepatitis B virus surface Ag [Presence] in Serum or Plasma by ImmunoassayHepatitis B surface antigen Lab Routine Missed menses , unspecified gestational age ([facility]) Ordered: 05/14/2025[facility] HealthcareComment on above:Ordered: 05/14/2025Hepatitis C virus Ab [Presence] in Serum or Plasma by ImmunoassayHepatitis C antibody Lab Routine Missed menses , unspecified gestational age ([facility]) Ordered: 05/14/2025[facility] HealthcareComment on above:Ordered: 05/14/2025HIV-1/HIV-2 antigen/antibody combination immunoassayHIV-1 and HIV-2 antibodies Lab Routine Missed menses , unspecified gestational age ([facility]) Ordered: 05/14/2025[facility] HealthcareComment on above:Ordered: 05/14/2025Human papilloma virus DNA [Presence] in Unspecified specimen by Probe with amplificationHPV DNA probe, amplified Microbiology Routine Well woman exam with routine gynecological exam Ordered: 05/25/2025[facility] HealthcareComment on above:Ordered: 05/25/2025 Neisseria gonorrhoeae DNA [Presence] in Unspecified specimen by DAVY with probe detectionNeisseria gonorrhea DNA probe, direct Lab Routine Exposure to STD Ordered: 05/25/2025[facility] HealthcareComment on above:Ordered: 05/25/2025Reagin Ab [Presence] in Serum by RPRRPR Lab Routine Missed menses , unspecified gestational age ([facility]) Ordered: 05/14/2025[facility] HealthcareComment on above: Ordered: 05/14/2025Rubella antibody, IgGRubella antibody, IgG Lab Routine Missed menses , unspecified gestational age ([facility]) Ordered: 05/14/2025[facility] HealthcareComment on above:Ordered: 05/14/2025SURESWAB(R) ADVANCED VAGINITIS PLUS, TMASURESWAB(R) ADVANCED VAGINITIS PLUS, TMA Pathology and Cytology Routine Vaginal discharge Ordered: 05/25/2025[facility] Work Phone: comment on above:Ordered: 05/25/2025 End: 43-92-8019Libpbaznhoo [Units/volume] in Serum or PlasmaTSH Lab Routine Acquired autoimmune hypothyroidism monthy for 3 Occurrences starting 07/21/2025 until 10/21/2025[facility] Work Phone: comment on above:monthy for 3 Occurrences starting 07/21/2025 until 10/21/2025 Payers DatePayer CategoryPayerPolicy [id number] [id number] Health Insurance [employer] [id number] 2..1.842513.3.57[id number] 2.0.1.609774.3.57[id number] 2.0.1.168353.3.57[id number] 2..1.530421.3.57[id number] 2.0.1.401772.3.57[id number] 2.840.1.431815.3.57[id number] 2.16.840.1.273746.3.57[id number] 2.840.1.245985.3.57[id number] 2.840.1.356530.3.57[id number] 2.840.1.222037.3.57[id number] 2.840.1.969291.3.57[id number] 2.840.1.554355.3.57[id number] 2.840.1.420500.3.57[id number] 2.840.1.714070.3.57[id number] 2.840.1.563306.3.579.2.[id number] 2..1.263710.3.57[id number] 2.840.1.686346.3.57[id number] 2.840.1.296174.3.579.[id number] 2.840.1.459107.3.579.[id number] 2.840.1.707376.3.579.2.3[id number] 2.0.1.711388.3.579.[id number] 2.840.1.682653.3.579.2.[id number] 2..840.1.788834.3.579.[id number] 2.0.1.050735.3.579.[id number] 2.0.1.711190.3.579.2.686396-02-0234Kila-tps72185278708-45-4171Jvaqgxh [id number] Social History DateTypeDetailFacilityStart: 21-92-2435Tqytxsw smoking status NHISTobacco smoking consumption unknownProSt. Francis Hospital SystemStart: 67-98-7223Jsfwdwaxz [facility] SystemStart: 77-85-6164Lmb Assigned At BirthFePaul A. Dever State School HealthcareStart: 84-47-5436Vybbet identityIdentifies as female gender (finding) [facility] HealthcareStart: 56-69-6707Fpqxqa orientationHeterosexual (finding)[facility] HealthcareStart: 03-23-2019 End: 18-35-4528Zxggfzo of Social functionKindred Hospital Lima SystemStart: 03-23-2019 End: 75-18-9060Nzuoape InstabilityKindred Hospital Lima SystemStart: 12-26-2022 Housing InstabilitySt[facility] SystemStart: 45-12-8933Gem Assigned At BirthNot on fileKindred Hospital Lima SystemStart: 37-45-5009Ixqlbjx smoking status NHISSmokes tobacco dailyKindred Hospital [facility] SystemHistory of tobacco use Cigarette SmokerKindred Hospital Lima SystemStart: 02-05-9173Rtitsmq use and exposure Smokeless tobacco non-userKindred Hospital Lima SystemStart: 10-16-2023 End: 87-85-9735Usjjuvv intakeEx-drinker (finding)[facility] Goals DatePatient GoalDesired Activity/StatePersonal health goal Clinical Notes 03-16-2022 to 08-23-2025 Note Date & AejgEfhmTmxluyks88-51-9417 History of Present illness Narrative* Marco AcevedoDO [...] nursing note reviewed. Exam conducted with a certified fraud examiner present. Vitals: Estimated body mass index is 26.53 kg/m as calculated from the following: Height as of 04/02/24: 5' 6 . Weight as of this encounter: 164 lb 6.4 oz. BP: 108/62 No LMP recorded. Patient is . Assessment/Plan Encounter Diagnosis: ICD-10-CM 1. Third trimester ([facility]) Z34.93 2. 31 weeks gestation of ([facility]) Z3A.31 POCT urinalysis dipstick manually resulted [...] [3] No Known Allergies documented in this encounterOzarks Medical CenterShhvgzrvvt14-87-9510 History of Present illness Narrative* ABIGAIL Chinchilla [...] nursing note reviewed. Exam conducted with a certified fraud examiner present. Vitals: Estimated body mass index is 25.74 kg/m as calculated from the following: Height as of 04/02/24: 5' 6 . Weight as of this encounter: 159 lb 8 oz. BP: 110/52 No LMP recorded. Patient is . Assessment/Plan ICD-10-CM 1. Third trimester ([facility]) Z34.93 2. 29 weeks gestation of ([facility]) Z3A.29 CBC and differential Hemoglobin [...] behalf of: ABIGAIL Chinchilla documented in this encounterOzarks Medical CenterFwoitbpjqo60-74-6718 History of Present illness Narrative* Drew Solorio [...] nursing note reviewed. Exam conducted with a certified fraud examiner present. Vitals: Estimated body mass index is 24.29 kg/m as calculated from the following: Height as of 04/02/24: 5' 6 . Weight as of this encounter: 150 lb 8 oz. BP: 110/60 No LMP recorded. Patient is . ASSESSMENT & PLAN ICD-10-CM 1. Acquired autoimmune hypothyroidism E06.3 TSH 2. Second trimester ([facility]) Z34.92 POCT urinalysis dipstick manually resulted 3. 26 weeks gestation of ([facility]) Z3A.26 4. Depression affecting ([facility]) O99.340 citalopram (CeleXA) 20 MG tablet [...] of: Drew Solorio NP documented in this encounterOzarks Medical CenterPxdoeeskvr14-75-0152 History of Present illness Narrative* Deepika Frye [...] nursing note reviewed. Exam conducted with a certified fraud examiner present. Vitals: Estimated body mass index is 23.91 kg/m as calculated from the following: Height as of 04/02/24: 5' 6 . Weight as of this encounter: 148 lb 1.9 oz. BP: 100/60 No LMP recorded. Patient is . ASSESSMENT & PLAN ICD-10-CM 1. 22 weeks gestation of ([facility]) Z3A.22 POCT urinalysis dipstick manually resulted 2. Second trimester ([facility]) Z34.92 POCT urinalysis dipstick manually resulted [...] of: Marco Bales DO documented in this encounterOzarks Medical CenterBblaxxefvi96-01-5051 History of Present illness Narrative* Deepika Frye [...] nursing note reviewed. Exam conducted with a certified fraud examiner present. Vitals: Estimated body mass index is 22.4 kg/m as calculated from the following: Height as of 04/02/24: 5' 6 . Weight as of this encounter: 138 lb 12.8 oz. BP: 100/60 No LMP recorded. Patient is . ASSESSMENT & PLAN ICD-10-CM 1. 18 weeks gestation of ([facility]) Z3A.18 POCT urinalysis dipstick manually resulted Alpha fetoprotein, maternal Alpha fetoprotein, maternal 2. Second trimester ([facility]) Z34.92 POCT urinalysis dipstick manually resulted Alpha fetoprotein, maternal Alpha fetoprotein, maternal 3. Well woman exam with routine gynecological exam Z01.419 Pap Smear HPV DNA probe, amplified 4. Screening, , for anatomic survey ([facility]) Z36.89 US OB 14+ weeks anatomy scan US OB 14+ weeks anatomy scan 5. Exposure to STD Z20.2 CHLAMYDIA TRACHOMATIS (GENITO/STI) Neisseria gonorrhea DNA probe, direct 6. Vaginal discharge N89.8 SURESWAB(R) ADVANCED VAGINITIS PLUS, TMA 7. Thyroid disease E07.9 TSH TSH Return OB/Annual Exam: Patient presents today for a annual exam/routine obstetrics appointment. Patient is currently 37r4rbrdtkyvj. Pt advised to have labs drawn. Pap [...] of: Marco Bales DO documented in this encounterOzarks Medical CenterGlgcokzpxs05-16-1394 History of Present illness Narrative* Sana Rogers [...] 11/2016 22w0d F Vag-Spont ND Complications: Oligohydramnios ([facility]) 4 Term 10/25/14 38w0d 6 lb [...] urinalysis dipstick manually resulted Positive urine test ([facility]) , unspecified gestational age ([facility]) - Type and screen; Future - ABO/Rh; Future - CBC and differential - Hemoglobin A1c - RPR - Rubella antibody, IgG - Hepatitis B surface antigen - Hepatitis C antibody - HIV-1 and HIV-2 antibodies - Rapid drug screen, urine; Future Encounter for supervision of normal first in first trimester ([facility]) - Rapid drug screen, urine; Future Nausea and vomiting in ([facility]) - ondansetron ODT (Zofran-ODT) 4 MG [...] by: Sana Rogers LPN documented in this encounterOzarks Medical CenterLaffcqtpyi96-07-4087 History of Present illness Narrative* ABIGAIL Chinchilla [...] Missed menses Non-compliant patient Smoker Thyroid disease ([facility]) No family history on file. [...] behalf of: ABIGAIL Chinchilla documented in this encounterOzarks Medical CenterTnwhmqdhdz98-30-9414 Miscellaneous Notes* Telephone Encounter - Rachelle Mullen LPN - 10/22/2023 12:28 PM EST Please call us back to schedule an ultrasound next week. [facility] Tele[facility] encounter Note* Telephone Encounter - Rachelle Mullen LPN - 10/22/2023 12:28 PM EST Please call us back to schedule an ultrasound next week. [facility] History of Present illness Narrative* Haseeb [...] to increase p.o. hydration. documented in [facility] encounterBer[facility]01-[facility] History of Present illness Narrative* Yuliet [...] Yes Have you been seen here at [facility] in a previous ? No Recent ER visits or hospitalizations? No Bring blood sugar log or meter with you today? (Please bring them with you for every visit at [facility]) N/A Traveled outside the country in [...] Yes Not In System Ref Prov vit no.378-vpro-adgfu acid ( VITAMIN) 27 mg iron- 800 [...] continue with routine care in your office [facility], the CDC, and other organizations representing maternal and public health professionals recommend that , , and lactating people and those considering receive the COVID-19 vaccination. Vaccination is the best method to reduce maternal and complications of SARS-CoV-2 infection. This document was created with [employer] technology. Though I make every effort to [...] christianue to be followed by the primary parachute cushion installer or primary care provider. Thank you for allowing me to participate in her care. Please contact me if you have any concerns. documented in this encounterBer[facility] Hospital06-[facility]-2022 NotePROCEDURE: XR SHOULDER RT 2V or > HISTORY: Impingement syndrome of right shoulder region ; acute right shoulder pain, no known injury COMPARISON: None. FINDINGS: BONES:No fracture, acute abnormality, or significant arthropathy. SOFT TISSUES:No visible soft tissue swelling. EFFUSION:None visible. OTHER: Negative. IMPRESSION: 1. Normal examination. Electronically authenticated by: GENI CABRAL Date: 2022-03-16 18:16[facility]Evaluation [facility]* Diagnosis Second trimester state, incidental with normal glucose tolerance test (GTT) Diabetes mellitus screening Screening for diabetes mellitus History of miscarriage Personal history of other genital system and obstetric disorders History of oligohydramnios documented in this encounter [facility]Evaluation note* Diagnosis High-risk in second trimester- Primary History of oligohydramnios in prior , currently with other poor obstetric history 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 20 weeks gestation of documented in this encounter [facility] SystemEvaluation note* Diagnosis History of oligohydramnios in prior , currently - Primary with other poor obstetric history documented in this encounter [facility]Evaluation [facility]* Diagnosis History of oligohydramnios in prior , currently - Primary with other poor obstetric history 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 History of delivery, currently with history of pre-term labor documented in this encounter [facility] SystemEvaluation note* Diagnosis Missed menses Positive urine test ([facility]) , unspecified gestational age ([facility]) Encounter for supervision of normal first in first trimester ([facility]) Nausea and vomiting in ([facility]) Unspecified vomiting of , unspecified as to episode of care documented in this encounter [facility]* Diagnosis 18 weeks gestation of ([facility]) Second trimester ([facility]) state, incidental Well woman exam with routine gynecological exam Routine gynecological examination Screening, , for anatomic survey ([facility]) Encounter for anatomic survey Exposure to STD Vaginal discharge Leukorrhea, not specified as infective Thyroid disease Unspecified disorder of thyroid documented in this encounter [facility]* Diagnosis 22 weeks gestation of ([facility]) Second trimester ([facility]) state, incidental Thyroid disease Unspecified disorder of thyroid Diabetes mellitus screening Screening for diabetes mellitus documented in this encounter [facility]* Diagnosis Acquired autoimmune hypothyroidism- Primary Other specified acquired hypothyroidism Second trimester ([facility]) state, incidental 26 weeks gestation of ([facility]) Depression affecting ([facility]) documented in this encounter [facility]* Diagnosis size inconsistent with dates ([facility])- Primary Third trimester ([facility]) state, incidental 29 weeks gestation of ([facility]) History of miscarriage Personal history of other genital system and obstetric disorders History of oligohydramnios Thyroid disease Unspecified disorder of thyroid Acquired autoimmune hypothyroidism Other specified acquired hypothyroidism documented in this encounter [facility]* Diagnosis Third trimester ([facility]) state, incidental 31 weeks gestation of ([facility]) documented in this encounter [facility] HealthcareInstructionsNot on filedocumented in this encounterProMediaz Health SystemInstructionsNot on filedocumented in this encounterProMediHolmes County Joel [facility] SystemInstructionsNot on filedocumented in this encounterProMedica Mer[facility] SystemInstructionsNot on filedocumented in this encounterKindred Hospital [facility] System InstructionsNot on filedocumented in this encounterKindred Hospital [facility] System Summary Purpose Family History [...] of oligohydramnios in prior , currently Procedures [facility] with or without consult Haseeb Nice MD [address], [address] [place] [address] [facility]aternal [facility] [address] [place] [address] Referral IDStatusReasonSthumboldt DateExpiration DateVisits RequestedVisits [id number] Review/[id number] / Procedures Referred By ContactReferred To [facility] Diagnoses History of oligohydramnios in prior , currently 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 History of delivery, currently Procedures [facility] with or without consult Haseeb Nice MD [address], [address] [place] [address] [facility] [address] [place] [address] Referral IDStatusReasonHomeworth DateExpiration DateVisits RequestedVisits [id number] Review/ Additional Source Comments INFORMATION SOURCE (unrecogn ized section and content) DATE CREATED AUTHOR 01/31/2023 [facility] DATE CREATED AUTHOR AUTHOR'S ORGANIZ ATION 10/20/2023 [facility] DATE CREATED AUTHOR AUTHOR'S ORGANIZ ATION 11/24/2023 [facility] DATE CREATED AUTHOR AUTHOR'S ORGANIZ ATION 08/26/2025 [facility] EPIC Reason for Visit (unrecogniz ed section and content) ReasonCommentsRoutine VisitReasonCommentsHx OligoHx Multiple MiscarriagesHypothyroidismReasonCommentsAmenorrheaReasonCommentsRoutine VisitWell Women VisitSTI Screening Care Teams (unrecognized sec tion and content) Team MemberRelationshipSpecialtyStart DateEnd Date Marco Bales, DO [address] [place], [facility] PCP [facility]01/13/24Team MemberRelationshipSpecialtyStart DateEnd Date Marco Bales, DO [address], [place] [address] [facility]01/13/24Team MemberRelationshipSpecialtyStart DateEnd Date Marco Bales, DO [address], [place] [address] [facility]01/13/24Team MemberRelationshipSpecialtyStart DateEnd Date Marco Bales, DO [address], [place] [address] PCP [facility]01/13/24Team MemberRelationshipSpecialtyStart DateEnd Date Marco Bales, DO [address], [place] [address] [address]11/06Team MemberRelationshipSpecialtyStart DateEnd Date Marco Bales, DO [address], [facility]11 [place] [address]Te MemberRelationshipSpecialtyStart DateEnd Date Marco Bales, DO [address] [place] [address] [place] [address]Te MemberRelationshipSpecialtyStart DateEnd Date Marco Bales, DO [address] [place], [facility] [address]11/06Te MemberRelationshipSpecialtyStart DateEnd Date Marco Bales, DO [address] [place], [facility] [place] [address]Te MemberRelationshipSpecialtyStart DateEnd Date Marco Bales, DO [address] [place], [place] [address], [facility] [place] [address]Te MemberRelationshipSpecialtyStart DateEnd Date Marco Bales, DO [address] [place], [facility] [address]11/06Te MemberRelationshipSpecialtyStart DateEnd Date Marco Bales, DO [address] [place], [facility] [address]11/06Te MemberRelationshipSpecialtyStart DateEnd Date Marco Bales, DO [address] [place] [address] PCP [place] [address]Team MemberRelationshipSpecialtyStart DateEnd Date Marco Bales, DO [address] [place] [address] PCP [place] [address]Team MemberRelationshipSpecialtyStart DateEnd Date Marco Bales, DO [address] [place] [address] [facility]01/13/24 FOR RECORDS PERTAINING TO PATIENTS WHO ARE [...] BE BASED ON THE PRIMARY CLINICAL RECORDS. [facility] inContact [facility]. provides no warranty or guarantee of the accuracy or completeness of information in this document.
== END 2025-09-23 10:05 | disposition home or self-care (01) ==
LOC: FBCO 09:36 → FBC 09:37
PROVIDERS: Visit Provider Obstetrics & Gynecology
DX: O36.8130 Decreased fetal movements, third trimester, not applicable or unspecified (principal)
CPT/HCPCS: 59025

== ENCOUNTER 2025-09-27 11:04 | Outpatient (OUT) | payer OTHER, SELFPAY ==
--- NOTE | 2025-09-27 11:08 | US_ITS ---
The [place] [id number] Patient Name: JERAMY SWEENEY MRN: [id number] date: 1995 Sex: F Assigned Patient Location: [facility] Current Patient Location: [facility] Accession/Order Number: [id number] Exam Date: 09/27/2025 11:09 Report Date: 09/27/2025 12:00 At the request of: BRIA DIAL DO Procedure: US OB BPP w non-stress BIOPHYSICAL PROFILE: CLINICAL INFORMATION: Decreased movement COMPARISON: 09/20/2025 There is a single live intrauterine gestation in cephalic presentation. The reported gestational age is 36 weeks 2 days. The heart rate measures 152 beats per minute. FINDINGS: TONE: 1 or more episodes of activity extension and flexion of extremity or opening and closing of the hand [Y] 2/2 GROSS BODY MOVEMENTS: 3 or more discrete body or limb movements [Y] 2/2 BREATHING MOVEMENTS: 1 or more episodes of breathing lasting at least 30 seconds [Y] 2/2 AVERY: A single deepest vertical pocket of amniotic fluid greater than 2 cm [Y] 2/2 AVERY: 18.3 cm. This is in upper normal range. Total score: 05/21 US/ OB BPP w non-stress IMPRESSION: NORMAL BIOPHYSICAL PROFILE Impression dictated by: Deepika Villafana M.D. 09/27/2025 12:00 PM Dictation Location: [place] Electronically authenticated by: [id number] Y Date: 09/27/2025 12:00
[2025-09-27 11:23] VITALS: BP 119/55; PULSE 110
== END 2025-09-27 12:14 | disposition home or self-care (01) ==
LOC: US 11:05 → FBC 11:07
PROVIDERS: Visit Provider Obstetrics & Gynecology
DX: O26.893 Other specified pregnancy related conditions, third trimester (principal); O36.8130 Decreased fetal movements, third trimester, not applicable or unspecified; Z3A.36 36 weeks gestation of pregnancy
CPT/HCPCS: 76818

== ENCOUNTER 2025-09-27 12:27 | Outpatient (REF) | payer OTHER, SELFPAY | END 2025-09-27 12:28 | disposition home or self-care (01) | LOC: LAB 12:27 | PROVIDERS: Visit Provider Obstetrics & Gynecology | DX: Z34.93 Encounter for supervision of normal pregnancy, unspecified, third trimester (principal) | CPT/HCPCS: 87081 ==

== ENCOUNTER 2025-10-02 05:09 | Inpatient (IN) | payer OTHER, SELFPAY ==
--- OUTSIDE RECORDS SUMMARY | 2025-09-20 14:30 | XMS_ITS | Encounter Summary ---
Author Organization [facility] Address [address] [place] [address] Care Team Providers Care Benefits Consulting Analyst Name Role Phone Marco Bales DO Unavailable Encounter Details DateTypeDepartmentCare Team (Latest Contact Info)Qjoofokiuyy38/08/2025 2:30 PM ESTRoutine [facility] [address] [employer] [place] [address] Marco Bales DO [address] [facility] [address] [place], [place] [id number] 35 weeks gestation of ([facility]); Third trimester fetus ([facility]) Social History Tobacco UseTypesPacks/DayYears UsedDateSmoking Tobacco: Never Assessed Estimated Date of AcrcqfeuYqyhhyqwDfg23/10/2026ased on UltrasoundSex and Gender InformationValueDate RecordedSex Assigned at AdlrrBxkhtf16/25/2023 4:28 PM EDT Legal ZoaYxxcpm16/15/2023 6:42 PM EDTGender DjvlcjcvYhbiet05/25/2023 4:28 PM EDT Sexual WglbslwhzafKdmdwovb87/25/2023 4:28 PM EDTdocumented as of this encounter Last Filed Vital Signs Vital SignReadingTime TakenCommentsBlood Ehlkngyg669/7009/20/2025 2:51 PM EST Pulse--Temperature--Respiratory Rate--Oxygen Saturation--Inhaled Oxygen Concentration--Vfnqsh43.9 kg (167 lb 6.4 oz)09/20/2025 2:51 PM ESTHeight--Body Mass Index27.02004/02/2024 11:40 AM EDTdocumented in this encounter Progress Notes * Marco Bales DO - 09/20/2025 2:30 PM EST Reason for Appointment: Patient ID: Екатерина Sutherland is a 30 y.o. female who presents for No chief complaint on file. Patient presents today for Return OB appointment. Current Medications: has a current medication list which includes the following prescription(s): citalopram, levothyroxine, and m- plus. Medical History: Active Ambulatory Problems Diagnosis Date Noted Thyroid disease 12/16/2023 History of oligohydramnios 12/16/2023 Anxiety, generalized 12/16/2023 Rectal bleeding 04/09/2024 Resolved Ambulatory Problems Diagnosis Date Noted No Resolved Ambulatory Problems Past Medical History: Diagnosis Date Missed menses Non-compliant patient Smoker Family History[1] Social History Tobacco Use Smoking status: Not on file Smokeless tobacco: Not on file Substance Use Topics Alcohol use: Not on file Drug use: Not on file Surgical History[2] Allergies[3] Review of Systems: Review of Systems Constitutional: [...] nursing note reviewed. Exam conducted with a heavy equipment operating engineer present. Vitals: Estimated body mass index is 27.02 kg/m?? as calculated from the following: Height as of 04/02/24: 5' 6 . Weight as of this encounter: 167 lb 6.4 oz. BP: 112/70 No LMP recorded. Patient is . Assessment/Plan Encounter Diagnosis: ICD-10-CM 1. 35 weeks gestation of ([facility]) Z3A.35 POCT urinalysis dipstick manually resulted 2. Third trimester fetus ([facility]) Z34.93 POCT urinalysis dipstick manually resulted Return OB: Patient presents today for a routine obstetrics appointment. Patient is currently 35w4d . Patient states she is doing well but has complaints of being tired due to current . Patient has verbalizes frequent movement. labor precautions was discussed/given and patient was instructed to perform kick counts three times a day. Orders Placed This Encounter Procedures POCT urinalysis dipstick manually resulted Follow Up: Patient is to return to office in 2 week for routine OB appointment. Documented by Marco Bales DO on behalf of: Marco Bales DO [1] No family history on file. [2] Past Surgical History: Procedure Laterality Date APPENDECTOMY 2007 [3] No Known Allergies documented in this encounter Plan of Treatment DateTypeDepartmentCare Team (Latest Contact Info)Zrxdzbtlblo97/22/2025 9:50 AM ESTRoutine [facility] [address] [place] [address] Marco Bales DO [address] [facility] [place] [address] 11/08/2025 10:10 AM ESTConsult [facility] [address] [place] [address] Marco Bales DO [address] [place] [address] documented as of this encounter Goals GoalPatient Goal TypeAssociated ProblemsRecent ProgressPatient-Stated?Author Reminders Care PlanOB RemindersNoOpen Scheduling, Backgrounddocumented as of this encounter Procedures Procedure NamePriorityDate/TimeAssociated DiagnosisCommentsPOCT URINALYSIS LNYSREJTDgocmwj54/08/2025 3:13 PM EST 35 weeks gestation of ([facility]) Third trimester fetus ([facility]) documented in this encounter Results * (ABNORMAL) POCT urinalysis dipstick manually resulted (09/20/2025 3:13 PM EST) ComponentValueRef RangeTest MethodAnalysis TimePerformed AtPathologist SignatureColor, UAYellowClarity, UAClearGlucose, UANegativeNegative - 2000(110) ++++ mg/dLBilirubin, UANegativeNegative - 4(70) +++ mg/dLKetones, UA NegativeNegative - 160(16) ++++ mg/dLSpec Grav, UA1.0251 - 1.03Blood, UA NegativeNegative - 50 Felice/mcLpH, UA6.05 - 9Protein, UATraceNegative - 2000(20) ++++ mg/dLUrobilinogen, UA0.20.2 - 12 mg/dLLeukocytes, UA1+Negative - 500+++ Regina/mcLNitrite, UANegativeNegative - PositiveSpecimen (Source)Anatomical Location / LateralityCollection Method / VolumeCollection TimeReceived Time Urine09/20/2025 3:13 PM EST Narrative Authorizing ProviderResult TypeResult StatusCorey Nii DOPOINT OF CARE TEST ENTER/EDIT ORDERABLESFinal Result documented in this encounter Visit Diagnoses Diagnosis 35 weeks gestation of ([facility]) Third trimester fetus ([facility]) documented in this encounter Additional Health Concerns Active ProblemsNoted DateDiagnosed DateOB Lizrcojro40/28/2023 documented as of this encounter Care Teams Team MemberRelationshipSpecialtyStart DateEnd Date Marco Bales DO [address] [place] [address] [place] [address] PCP - [facility]01/13/24documented as of this encounter
--- OUTSIDE RECORDS SUMMARY | 2025-09-27 09:40 | XMS_ITS | Encounter Summary ---
Author Organization [facility] Address [address] [place] [address] Care Team Providers Care Hat Stock Laminating Machine Operator Name Role Phone Marco Bales DO Unavailable Reason for Visit * ReasonCommentsRoutine Visit Encounter Details DateTypeDepartmentCare Team (Latest Contact Info)Rwtcqezdroo67/15/2025 9:40 AM ESTRoutine [facility] [address] [place] [address] Marco Bales DO [address] [place], [place] [id number] Third trimester ([facility]); 36 weeks gestation of ([facility]) Social History Tobacco UseTypesPacks/DayYears UsedDateSmoking Tobacco: Never Assessed Estimated Date of GmthvpuyObhwqrwaIvd66/10/2026ased on UltrasoundSex and Gender InformationValueDate RecordedSex Assigned at HaixyQklonx92/25/2023 4:28 PM EDT Legal RyaLzjwqs16/15/2023 6:42 PM EDTGender XzazdrpqEgjnie31/25/2023 4:28 PM EDT Sexual SzftjrcupmiDotcncoz91/25/2023 4:28 PM EDTdocumented as of this encounter Last Filed Vital Signs Vital SignReadingTime TakenCommentsBlood Rofzzphf450/6009/27/2025 9:51 AM EST Pulse--Temperature--Respiratory Rate--Oxygen Saturation--Inhaled Oxygen Concentration--Epltjd99.5 kg (168 lb 12 oz)09/27/2025 9:51 AM ESTHeight--Body Mass Index27.24004/02/2024 11:40 AM EDTdocumented in this encounter Progress Notes * Penny Solorio NP - 09/27/2025 9:40 AM EST Reason for Appointment: Patient ID: [...] nursing note reviewed. Exam conducted with a figure skater present. Vitals: Estimated body mass index is 27.24 kg/m?? as calculated from the following: Height as of 04/02/24: 5' 6 . Weight as of this encounter: 168 lb 12 oz. BP: 120/60 No LMP recorded. Patient is . Assessment/Plan ICD-10-CM 1. Third trimester ([facility]) Z34.93 POCT urinalysis dipstick manually resulted CULTURE, GROUP B STREP WITH SUSCEPTIBLITY CULTURE, GROUP B STREP WITH SUSCEPTIBLITY 2. 36 weeks gestation of ([facility]) Z3A.36 Assessment/Plan Return OB: Patient presents today for a routine obstetrics appointment. Patient is currently 36w2d . Patient states she is doing well but has complaints of being tired due to current . Patient has verbalizes frequent movement. labor precautions was discussed/given and patient was instructed to perform kick counts three times a day. Orders Placed This Encounter Procedures CULTURE, GROUP B STREP WITH SUSCEPTIBLITY POCT urinalysis dipstick manually resulted Follow Up: Patient is to return to office in 1 week for routine OB appointment. Documented by Penny Solorio NP on behalf of: Marco Bales DO documented in this encounter Plan of Treatment DateTypeDepartmentCare Team (Latest Contact Info)Oauaxqnixzn34/22/2025 9:50 AM ESTRoutine [facility] [address] [place] [address] Marco Bales DO [address] [place], [place] [id number] 11/08/2025 10:10 AM ESTConsult [facility] [address] [place] [address] Marco Bales DO [address] [place] [address] [place] [address] NameTypePriorityAssociated DiagnosesOrder ScheduleCULTURE, GROUP B STREP WITH SUSCEPTIBLITYLabRoutine Third trimester ([facility]) Expected: 09/27/2025, Expires: 09/27/2026documented as of this encounter Goals GoalPatient Goal TypeAssociated ProblemsRecent ProgressPatient-Stated?Author Reminders Care PlanOB RemindersNoOpen Scheduling, Backgrounddocumented as of this encounter Procedures Procedure NamePriorityDate/TimeAssociated DiagnosisCommentsPOCT URINALYSIS NJYNIEPVLuyxejr16/15/2025 9:57 AM EST Third trimester ([facility]) documented in this encounter Results * (ABNORMAL) POCT urinalysis dipstick manually resulted (09/27/2025 9:57 AM EST) ComponentValueRef RangeTest MethodAnalysis TimePerformed AtPathologist SignatureColor, UAYellowClarity, UAClearGlucose, UANegativeNegative - 2000(110) ++++ mg/dLBilirubin, UANegativeNegative - 4(70) +++ mg/dLKetones, UA NegativeNegative - 160(16) ++++ mg/dLSpec Grav, UA1.0201 - 1.03Blood, UA NegativeNegative - 50 Felice/mcLpH, UA6.05 - 9Protein, UATraceNegative - 2000(20) ++++ mg/dLUrobilinogen, UA0.20.2 - 12 mg/dLLeukocytes, UATraceNegative - 500+++ Regina/mcLNitrite, UANegativeNegative - PositiveSpecimen (Source) Anatomical Location / LateralityCollection Method / VolumeCollection Time Received CheqGskdb89/15/2025 9:57 AM EST Narrative Authorizing ProviderResult TypeResult StatusCorey Nii DOPOINT OF CARE TEST ENTER/EDIT ORDERABLESFinal Result documented in this encounter Visit Diagnoses Diagnosis Third trimester ([facility]) state, incidental 36 weeks gestation of ([facility]) documented in this encounter Additional Health Concerns Active ProblemsNoted DateDiagnosed DateOB Dqljdfzkk02/28/2023 documented as of this encounter Care Teams Team MemberRelationshipSpecialtyStart DateEnd Date Marco Bales DO [address] [place] [address] PCP - [facility]01/13/24documented as of this encounter
[2025-10-02] VITALS (44 sets, daily range): BP systolic 87–126; BP diastolic 50–86; PULSE 69–113; TEMP 36.5–36.6
--- OUTSIDE RECORDS SUMMARY | 2025-10-02 05:13 | XMS_ITS | Encounter Summary ---
Author Organization [facility] Address [address] [place] [address] Care Team Providers Care Gravel Hauler Name Role Phone Marco Bales DO Unavailable Encounter Details DateTypeDepartmentCare Team (Latest Contact Info)Hxkttyykpwo80/15/2025amboo flowsheet NOMJovany DIETZ [facility] [place] [address] Marco Bales DO [facility] [address] [place], [facility]11 Social History Tobacco UseTypesPacks/DayYears UsedDateSmoking Tobacco: Never Assessed Estimated Date of NkuafxhbLuuropsuRai49/10/2026Based on UltrasoundSex and Gender InformationValueDate RecordedSex Assigned at TsnhdCmfkpn74/25/2023 4:28 PM EDT Legal PrbVljchf09/15/2023 6:42 PM EDTGender FjhuzigsVewssu76/25/2023 4:28 PM EDT Sexual CzadycwxmbsBiycymnq96/25/2023 4:28 PM EDTdocumented as of this encounter Plan of Treatment DateTypeDepartmentCare Team (Latest Contact Info)Gdhjfeuaxtc78/22/2025 9:50 AM ESTRoutine NOMJovany DIETZ [facility] [place] [address] Marco Bales DO [address] [place] [address] 11/08/2025 10:10 AM ESTConsult [facility] [address] [place] [phone] Marco Bales DO [address] [place] [address] documented as of this encounter Goals GoalPatient Goal TypeAssociated ProblemsRecent ProgressPatient-Stated?Author Reminders Care PlanOB RemindersNoOpen Scheduling, Backgrounddocumented as of this encounter Visit Diagnoses Not on filedocumented in this encounter Additional Health Concerns Active ProblemsNoted DateDiagnosed DateOB Dokeywilo42/28/2023 documented as of this encounter Care Teams Team MemberRelationshipSpecialtyStart DateEnd Date Marco Bales DO [address] [place] [address] PCP - [facility]01/13/24documented as of this encounter
--- OUTSIDE RECORDS SUMMARY | 2025-10-02 05:13 | XMS_ITS | Encounter Summary ---
Author Organization [facility] Address [address] [place] [address] Care Team Providers Care Job Lithographer Name Role Phone Marco Bales DO Unavailable Encounter Details DateTypeDepartmentCare Team (Latest Contact Info)Flykxdvijma38/08/2025amboo flowsheet NOMJovany DIETZ [facility] [place] [address] Marco Bales DO [facility] [address] [place], [facility]11 Social History Tobacco UseTypesPacks/DayYears UsedDateSmoking Tobacco: Never Assessed Estimated Date of TskymyciXgbdmpblQqo51/10/2026Based on UltrasoundSex and Gender InformationValueDate RecordedSex Assigned at KzxslUtqaij07/25/2023 4:28 PM EDT Legal RznLlmhuc75/15/2023 6:42 PM EDTGender WtvutijcBdqlql52/25/2023 4:28 PM EDT Sexual XjxykwbocnkXiprkwwj76/25/2023 4:28 PM EDTdocumented as of this encounter Plan of Treatment DateTypeDepartmentCare Team (Latest Contact Info)Trnqhvmspzs76/22/2025 9:50 AM ESTRoutine NOMJovany DIETZ [facility] [place] [address] Marco Bales DO [address] [place] [address] 11/08/2025 10:10 AM ESTConsult [facility] [address] [phone] Marco Bales DO [address] [place] [address] documented as of this encounter Goals GoalPatient Goal TypeAssociated ProblemsRecent ProgressPatient-Stated?Author Reminders Care PlanOB RemindersNoOpen Scheduling, Backgrounddocumented as of this encounter Visit Diagnoses Not on filedocumented in this encounter Additional Health Concerns Active ProblemsNoted DateDiagnosed DateOB Dbaxkihlc24/28/2023 documented as of this encounter Care Teams Team MemberRelationshipSpecialtyStart DateEnd Date Marco Bales DO [address] [place] [address] PCP - [facility]01/13/24documented as of this encounter
--- OUTSIDE RECORDS SUMMARY | 2025-10-02 05:13 | XMS_ITS | Encounter Summary ---
Author Organization [facility] Address [address] [place] [address] Care Team Providers Care Perioperative Tech Name Role Phone Bria Bales DO Unavailable Encounter Details DateTypeDepartmentCare Team (Latest Contact Info)Tjhgyreaulv30/15/2025linisync Result Encounter [facility] External Department Unsolicited Bria Bales DO [address] [place], [place] [phone] Social History Tobacco UseTypesPacks/DayYears UsedDateSmoking Tobacco: Never Assessed Estimated Date of JhvmdekeRzttfzafYeg29/10/2026ased on UltrasoundSex and Gender InformationValueDate RecordedSex Assigned at NmuqcUyfsnl05/25/2023 4:28 PM EDT Legal BrtZxygmg49/15/2023 6:42 PM EDTGender IsaeenisVcdhka68/25/2023 4:28 PM EDT Sexual NjqceadspavRchzkvmp03/25/2023 4:28 PM EDTdocumented as of this encounter Plan of Treatment DateTypeDepartmentCare Team (Latest Contact Info)Gqluaubwsra52/22/2025 9:50 AM ESTRoutine [facility]S Kandace DIETZ [address] [place] [phone] Bria Bales DO [address] [place], [place] [address] 11/08/2025 10:10 AM ESTConsult NOMJovany DIETZ [address] [phone] Bria Bales, DO [address] [place] [address] documented as of this encounter Goals GoalPatient Goal TypeAssociated ProblemsRecent ProgressPatient-Stated?Author Reminders Care PlanOB RemindersNoOpen Scheduling, Backgrounddocumented as of this encounter Procedures Procedure NamePriorityDate/TimeAssociated DiagnosisCommentsUS OB BPP W NON-KRCJXI3509/27/2025 12:00 PM EST STREP GP B CULTURE+GEAHAsiorta84/15/2025 9:45 AM EST documented in this encounter Results * US OB BPP W NON-STRESS (09/27/2025 12:00 PM EST)Anatomical Region LateralityModalityOtherSpecimen (Source)Anatomical Location / Laterality Collection Method / VolumeCollection TimeReceived Time09/27/2025 12:00 PM EST Narrative 09/27/2025 12:03 PM EST [facility] ?[address] ? [place] [address] ? Ultrasound Report ? Signed ? Patient: PATELЕКАТЕРИНА Lemos ?MR#: [id number] ?? : 1995 ?Acct:[id number] ?? Age/Sex: 30 / F ?ADM Date: 09/27/25 ?? Loc: [facility] ??250-1 ? Attending Dr: Bria Bales D.O. ? Ordering Physician: Bria Bales D.O. ?? Date of Service: 09/27/25 ?? Procedure(s): US OB BPP w non-stress ?? Accession Number(s): [id number] ? cc: Bria Bales D.O.; Physician,Non-Staff M.D. ? [facility] ? [address] ? [place] [address] ? Patient Name: ?? ЕКАТЕРИНА SWEENEY ? MRN: [id number] ? date: 1995 ?Sex: F ?? Assigned Patient Location: [facility] ?? Current Patient Location: [facility] ?? Accession/Order Number: [id number] ?? Exam Date: 09/27/2025 ??11:09 ?Report Date: 09/27/2025 ??12:00 ? At the request of: ?? BRIA ??NII ??DO ? Procedure: ??US OB BPP w non-stress ? BIOPHYSICAL PROFILE: ? CLINICAL INFORMATION: Decreased movement ? COMPARISON: 09/20/2025 ? There is a single live intrauterine gestation in cephalic presentation. ??The ?? reported gestational age is 36 weeks 2 days. ??The heart rate measures ?? 152 beats per minute. ? FINDINGS: ? TONE: 1 or more episodes of activity extension and flexion of ?? extremity or opening and closing of the hand ?[Y] ? 2/2 ?? GROSS BODY MOVEMENTS: 3 or more discrete body or limb movements ?[Y] ? 2/2 ?? BREATHING MOVEMENTS: 1 or more episodes of breathing lasting at ?? least 30 seconds ? [Y] ? 2/2 ?? AVERY: A single deepest vertical pocket of amniotic fluid greater than 2 cm ? [Y] ? 2/2 ?AVERY: 18.3 cm. ??This is in upper normal range. ? Total score: ? 8/8 ? US/US OB BPP w non-stress ?? IMPRESSION: ? NORMAL BIOPHYSICAL PROFILE ? Impression dictated by: Deepika Villafana M.D. ??09/27/2025 12:00 PM ? Dictation Location: RADIO-PC-30 ? Electronically authenticated by: [id number] ??Y ?? Date: 09/27/2025 ??12:00 ? Dictated By: ?Deepika Villafana M.D. ? Signed By: ?09/27/25 1203 ? DD/ 1200 ? TD/TT: ? Senior Trainer: Procedure Note Radiology, Radiologist, - 09/27/2025 [place] [address] Ultrasound Report Signed Patient: ЕКАТЕРИНА SWEENEY RMR#: [id number] : 1995Acct:[id number] Age/Sex: 30 / FADM Date: 09/27/25 Loc: [facility] 250-[address]: Bria Bales D.O. Ordering Physician: Bria Bales D.O. Date of Service: 09/27/25 Procedure(s): US OB BPP w non-stress Accession Number(s): [id number] cc: Bria Bales D.O.; Physician,Non-Staff M.Nancy The [address] [address] Patient Name: ЕКАТЕРИНА SWEENEY MRN: [id number] date: 1995 Sex: F Assigned Patient Location: [facility] Current Patient Location: [facility] Accession/Order Number: [id number] Exam Date: 09/27/2025 11:09 Report Date: 09/27/2025 12:00 At the request of: BRIA BALES DO Procedure: US OB BPP w non-stress BIOPHYSICAL PROFILE: CLINICAL INFORMATION: Decreased movement COMPARISON: 09/20/2025 There is a single live intrauterine gestation in cephalic presentation.The reported gestational age is 36 weeks 2 days. The heart ratemeasures 152 beats per minute. FINDINGS: TONE: 1 or more episodes of activity extension and flexion of extremity or opening and closing of the hand [Y] 2/2 GROSS BODY MOVEMENTS: 3 or more discrete body or limb movements [Y] 2/2 BREATHING MOVEMENTS: 1 or more episodes of breathing lastingat least 30 seconds [Y] 2/2 AVERY: A single deepest vertical pocket of amniotic fluid greater than 2 cm [Y] 2/2 AVERY: 18.3 cm. This is in upper normal range. Total score: 8/ US/ OB BPP w non-stress IMPRESSION: NORMAL BIOPHYSICAL PROFILE Impression dictated by: Deepika Villafana M.D. 09/27/2025 12:00 PM Dictation Location: [place] [address] Electronically authenticated by: [id number] Y Date: 512:00 Dictated By: Deepika Villafana M.D. Signed By:09/27/25 1203 DD/ 1200 TD/TT: Senior Trainer: Authorizing ProviderResult TypeResult StatusCorey Nii DOCLINISYNC IMAGINGFinal Result * STREP GP B CULTURE+RFLX (09/27/2025 9:45 AM EST)ComponentValueRef RangeTest MethodAnalysis TimePerformed AtPathologist SignatureSTREP GP B CULTURE+RFLX ??Strep Gp B Culture+Rflx TBHSTREP GP B CULTURE+RFLXNegativeTBHSTREP GP B CULTURE+RFLXCenters for Disease Control and Prevention (CDC) andTBHSTREP GP B CULTURE+RFLXAmeralta b[facility] Congress of Obstetricians and GynecologistsTBHSTREP GP B CULTURE+RFLX(ACOG) guidelines for prevention of group BTBHSTREP GP B CULTURE+RFLXstreptococcal (GBS) disease specify co-collection ofTBHSTREP GP B CULTURE+RFLXa vaginal and rectal swab specimen to maximizeTBHSTREP GP B CULTURE+RFLXsensitivity of GBS detection. Per the CDC and ACOG,TBHSTREP GP B CULTURE+RFLXswabbing both the lower vagina and rectumTBHSTREP GP B CULTURE+RFLXsubstantially increases the yield of detectionTBHSTREP GP B CULTURE+RFLXcompared with sampling the vagina alone.TBH STREP GP B CULTURE+RFLXPenicillin G, ampicillin, or cefazolin are indicatedTBH STREP GP B CULTURE+RFLXfor intrapartum prophylaxis of GBSTBHSTREP GP B CULTURE+RFLXcolonization. Reflex susceptibility testing should beTBHSTREP GP B CULTURE+RFLXperformed prior to use of clindamycin only on GBSTBHSTREP GP B CULTURE+RFLXisolates from penicillin-allergic women who areTBHSTREP GP B CULTURE+RFLXconsidered a high risk for anaphylaxis. Treatment withTBHSTREP GP B CULTURE+RFLXvancomycin without additional testing is warranted ifTBHSTREP GP B CULTURE+RFLXresistance to clindamycin is noted.TBHSTREP GP B CULTURE+RFLX Performed at: [facility] LabCovenant Medical CenterTBHSTREP GP B CULTURE+[id number] [place], [place] [id number] GP B CULTURE+RFLXLab Director: Cheko Severino PhD, Phone: [phone] (Source)Anatomical Location / Laterality Collection Method / VolumeCollection TimeReceived Time09/27/2025 9:45 AM EST 09/27/2025 12:29 PM EST Narrative [facility]IN[facility]NC - 10/01/2025 7:08 PM EST Authorizing ProviderResult TypeResult StatusCorey Nii DOLAB BLOOD ORDERABLES Final ResultPerforming OrganizationAddressCity/State/ZIP CodePhone Number [facility] documented in this encounter Visit Diagnoses Not on filedocumented in this encounter Additional Health Concerns Active ProblemsNoted DateDiagnosed DateOB Avdvfvimp39/28/2023 documented as of this encounter Care Teams Team MemberRelationshipSpecialtyStart DateEnd Date Bria Bales DO [address] [place] [address] PCP - [facility]01/13/24documented as of this encounter
--- OUTSIDE RECORDS SUMMARY | 2025-10-02 05:13 | XMS_ITS | Clinical Summary ---
Author Organization [facility] Address [address] [place] [address] Care Team Providers Care Barrel Bander Name Role Phone Bria Bales DO Unavailable Allergies No known active [...] (20 mg) by mouth Daily 30 tablet [id number]/6Active Active Problems ProblemNoted DateDiagnosed DateRectal tuyghxmx40/27/2024Thyroid disease 12/16/2023History of vznltpwllkxsnny59/04/2024nxiety, ojickpzelzv22/04/2024 Estimated Date of WoinoenbCfcvczqfVnx68/10/2026ased on Ultrasound Encounters DateTypeDepartmentCare PpziByweeyujned57/18/2025Telephone [facility] [address] [place] [phone] Jaz Hdz LPN 09/27/2025 9:40 [place] [address] Bria Bales, DO Third trimester ([facility]); 36 weeks gestation of ([facility])09/27/2025linisync Result Encounter NOMS External Department Unsolicited Bria Bales, DO 09/27/2025amboo flowsheet [facility] [address] [facility] [place] [address] Bria Balse, DO 09/20/2025 2:30 PM ESTRoutine [facility] [address] [address] Bria Bales, DO 35 weeks gestation of ([facility]); Third trimester fetus ([facility])5Clinisync Result Encounter NOMS External Department Unsolicited Bria Bales, DO 09/20/2025amboo flowsheet [facility] [address] [address] Bria Bales, DO 09/07/2025 9:30 AM ESTRoutine [facility] [address] [place] [phone] Rosana Marcano PA Third trimester ([facility]); 33 weeks gestation of ([facility])09/07/2025amboo flowsheet [facility] [address] [facility] [address] Rosana Marcano PA 08/23/2025 11:00 AM ESTRoutine [facility] [address] [address] Bria Bales, DO Third trimester ([facility]); 31 weeks gestation of ([facility])08/23/2025 10:30 AM ESTAncillary Procedure [facility] [address] [place] [address] History of miscarriage; History of oligohydramnios; Thyroid xhuiiwu0508/23/2025linisync Result Encounter NOMS External Department Unsolicited Rosana Marcano PA 08/09/2025 9:50 AM EDTRoutine [facility] [address] [facility] [facility] [address] Rosana Marcano PA size inconsistent with dates ([facility]) (Primary Dx); Third trimester ([facility]); 29 weeks gestation of ([facility]); History of miscarriage; History of oligohydramnios; Thyroid disease; Acquired autoimmune nhmvfjlseodgmt54/27/2025amboo flowsheet [facility] [address] [place] [address] [place] [phone] Rosana Marcano PA 07/26/2025Patient Outreach [facility] [address] [place] [address] Rosana Aquino LPN 07/23/2025bstract [facility] [address] [place] [address] Rosana Aquino LPN 07/22/2025Telephone [facility] [address] [place] [address] [place] [phone] Mala Laura MA 07/21/2025 10:00 AM EDTRoutine [facility] [address] [place] [address] [place] [address] Penny Solorio NP Acquired autoimmune hypothyroidism (Primary Dx); Second trimester ([facility]); 26 weeks gestation of ([facility]); Depression affecting (HCC)07/21/2025amboo flowsheet [facility] [address] [place] [address] [place] [address] Penny Solorio NP from Last 3 Months Family History RelationNameStatusCommentsDaughterAliveMotherAliveSonAlive Social History Tobacco UseTypesPacks/DayYears UsedDateSmoking Tobacco: Never Assessed Estimated Date of UoekjgfyTercqbjhDxr19/10/2026ased on UltrasoundSex and Gender InformationValueDate RecordedSex Assigned at XwendJrgkhp09/25/2023 4:28 PM EDT Legal TwwApqlmq76/15/2023 6:42 PM EDTGender OvbjotmnHowjsq29/25/2023 4:28 PM EDT Sexual MjskclrchzsTurttjff91/25/2023 4:28 PM EDT Last Filed Vital Signs Vital SignReadingTime TakenCommentsBlood Pumkffkf076/6009/27/2025 9:51 AM EST Pulse--Temperature--Respiratory Rate--Oxygen Saturation--Inhaled Oxygen Concentration--Hcafrz92.5 kg (168 lb 12 oz)09/27/2025 9:51 AM QANPdlxgi632.6 cm (5' 6 )04/02/2024 11:40 AM EDTBody Mass Index27.24004/02/2024 11:40 AM EDT Plan of Treatment DateTypeDepartmentCare Team (Latest Contact Info)Toqwpyjihbi95/22/2025 9:50 AM ESTRoutine NOM[facility]any [facility] [address] [place] [address] [place] [phone] [place] [address] 11/08/2025 10:10 AM ESTConsult [facility] [address] [place] [address] [place] [phone] Bria Bales, [address] [place] [address] Health MaintenanceDue DateLast DoneCommentsCOVID-19 Vaccine ( season) 2025Influenza Vaccine (#1)2025Pap Smear8005/25/2025, 09/09/2023ervical Cancer Uzlqfbfio05/27/2028HPV/Cvtdqj8509/09/2028Pneumococcal Vaccine: Pediatrics (0 to 5 Years) and At-Risk Patients (6 to 64 Years)Aged Out No longer eligible based on patient's age to complete this topic Goals GoalPatient Goal TypeAssociated ProblemsRecent ProgressPatient-Stated?Author Reminders Care PlanOB RemindersNoOpen Scheduling, Background Procedures Procedure NamePriorityDate/TimeAssociated DiagnosisCommentsUS OB BPP W NON-FNCVHE2109/27/2025 12:00 PM EST POCT URINALYSIS KQCWWHRUNzpmmel69/15/2025 9:57 AM EST Third trimester ([facility]) STREP GP B CULTURE+YGCEUwtxeeo90/15/2025 9:45 AM EST US OB BPP W NON-EWVEAE6909/20/2025 7:00 PM EST POCT URINALYSIS DLXYUYFFQvgjlpd81/08/2025 3:13 PM EST 35 weeks gestation of ([facility]) Third trimester fetus ([facility]) POCT URINALYSIS CWGPCJKIWwjikal24/25/2025 9:53 AM EST Third trimester ([facility]) POCT URINALYSIS NKNOIZTIRbczwam50/10/2025 11:18 AM EST 31 weeks gestation of ([facility]) US OB FOLLOW UP TRANSABDOMINAL CKXUUSIBJtcvaiv90/10/2025 10:56 AM EST History of miscarriage History of oligohydramnios Thyroid disease MLR HEMOGLOBIN P2UGqkhagn85/10/2025 10:25 AM EST ALL THYROID STIM RAHAJQTKovifad94/10/2025 10:25 AM EST ALL CBC WITH AUTO QNPHEewkuwe56/10/2025 10:25 AM EST POCT URINALYSIS YKHSZYDVXggyhzi10/27/2025 10:19 AM EDT 29 weeks gestation of ([facility]) POCT URINALYSIS FVZQOFFKDwelqwt21/08/2025 10:14 AM EDT Second trimester ([facility]) PAP BERGYMknmzyx17/12/2025 12:00 AM EDTfrom Last 3 Months or Most Recently Relevant to Health Maintenance Results * US OB BPP W NON-STRESS (09/27/2025 12:00 PM EST) Only the most recent of2 resultswithin the time period is included. Anatomical RegionLateralityModalityOtherSpecimen (Source)Anatomical Location / LateralityCollection Method / VolumeCollection TimeReceived Time09/27/2025 12:00 PM EST Narrative 09/27/2025 12:03 PM EST [facility] ?[address] ? [place] [address] ? Ultrasound Report ? Signed ? Patient: ЕКАТЕРИНА SUTHERLAND ?MR#: [id number] ?? : 1995 ?Acct:[id number] ?? Age/Sex: 30 / F ?ADM Date: 09/27/25 ?? Loc: [facility] ??250-1 ? Attending Dr: Bria Bales D.O. ? Ordering Physician: Bria Bales D.O. ?? Date of Service: 09/27/25 ?? Procedure(s): US OB BPP w non-stress ?? Accession Number(s): [id number] ? cc: Bria Bales D.O.; Physician,Non-Staff M.D. ? [facility] ? [address] ? [place] [address] ? Patient Name: ?? ЕКАТЕРИНА SUTHERLAND ? MRN: [id number] ? date: 1995 ?Sex: F ?? Assigned Patient Location: [facility] ?? Current Patient Location: [facility] ?? Accession/Order Number: [id number] ?? Exam Date: 09/27/2025 ??11:09 ?Report Date: [...] Dictation Location: RADIO-PC-30 ? Electronically authenticated by: [id number] ??Y ?? Date: 09/27/2025 ??12:00 ? Dictated By: ?Deepika Villafana M.D. ? Signed By: ?12/15/25 1203 ? DD/ 1200 ? TD/TT: ? Windows Server Engineer: Procedure Note Radiology, Radiologist, MD - 09/27/2025 [place] [address] Ultrasound Report Signed Patient: ЕКАТЕРИНА SUTHERLAND RMR#: [id number] : 1995Acct:[id number] Age/Sex: 30 / FADM Date: 09/27/25 Loc: [facility] 250-[address]: Bria Bales D.O. Ordering Physician: Bria Bales D.O. Date of Service: 09/27/25 Procedure(s): US OB BPP w non-stress Accession Number(s): [id number] cc: Bria Bales D.O.; Physician,Non-Staff M.DTammie The [place] [phone] Patient Name: ЕКАТЕРИНА SUTHERLAND MRN: [id number] date: 1995 Sex: F Assigned Patient Location: [facility] Current Patient Location: [facility] Accession/Order Number: [id number] Exam Date: 09/27/2025 11:09 Report Date: 09/27/2025 [...] is in upper normal range. Total score: 05/21 US/US OB BPP w non-stress IMPRESSION: NORMAL BIOPHYSICAL PROFILE Impression dictated by: Deepika Villafana M.D. 09/27/2025 12:00 PM Dictation Location: ITYZ Electronically authenticated by: [id number] Y Date: 2:00 Dictated By: Deepika Villafana M.D. Signed By:09/27/25 1203 DD/ 1200 TD/TT: Windows Server Engineer: Authorizing ProviderResult TypeResult StatusCorey Nii DOCLINISYNC IMAGINGFinal Result * (ABNORMAL) POCT urinalysis dipstick manually resulted (09/27/2025 9:57 AM EST) Only the most recent of6 resultswithin the time period is included. ComponentValueRef RangeTest MethodAnalysis TimePerformed AtPathologist Signature Color, UAYellowClarity, UAClearGlucose, UANegativeNegative - 2000(110) ++++ mg/dLBilirubin, UANegativeNegative - 4(70) +++ mg/dLKetones, UANegativeNegative - 160(16) ++++ mg/dLSpec Grav, UA1.0201 - 1.03Blood, UANegativeNegative - 50 Felice/mcLpH, UA6.05 - 9Protein, UATraceNegative - 2000(20) ++++ mg/dLUrobilinogen, UA0.20.2 - 12 mg/dLLeukocytes, UATraceNegative - 500+++ Regina/mcLNitrite, UA NegativeNegative - PositiveSpecimen (Source)Anatomical Location / Laterality Collection Method / VolumeCollection TimeReceived MdkjTrtqt30/15/2025 9:57 AM EST Narrative Authorizing ProviderResult TypeResult StatusCorey Nii DOPOINT OF CARE TEST ENTER/EDIT ORDERABLESFinal Result * STREP GP B CULTURE+RFLX (09/27/2025 9:45 AM EST)ComponentValueRef RangeTest MethodAnalysis TimePerformed AtPathologist SignatureSTREP GP B CULTURE+RFLX ??Strep Gp B Culture+Rflx TBHSTREP GP B CULTURE+RFLXNegativeTBHSTREP GP B CULTURE+RFLXCenters for Disease Control and Prevention (CDC) andTBHSTREP GP B CULTURE+RFLXAmerican Congress of Obstetricians and GynecologistsTBHSTREP GP B [...] is noted.TBHSTREP GP B CULTURE+RFLX Performed at: - [facility]daleTBHSTREP GP B CULTURE+[id number] [place], [place] [id number] GP B CULTURE+RFLXLab Director: Cheko Severino PhD, Phone: [phone] (Source)Anatomical Location / Laterality Collection Method / VolumeCollection TimeReceived Time09/27/2025 9:45 AM EST 09/27/2025 12:29 PM EST Narrative [facility] - 10/01/2025 7:08 PM EST Authorizing ProviderResult TypeResult StatusCorey Nii DOLAB BLOOD ORDERABLES Final ResultPerforming OrganizationAddressCity/State/ZIP CodePhone Number [facility] * OB follow up transabdominal approach (08/23/2025 10:56 AM EST)Anatomical RegionLateralityModalityBodyUltrasoundSpecimen (Source)Anatomical Location / LateralityCollection Method / VolumeCollection TimeReceived Time08/25/2025 8:45 AM EST Impressions 08/25/2025 9:06 AM EST Single, live intrauterine , current sonographic age of 32 weeks and 0 days, with an estimated date of delivery of October 18, 2025 (prior GOOD October 25, 2025) * ??Estimated Weight (g) by Percentile is based upon an accurate estimated age based onlast menstrual period. ?? TRANSCRIBED BY: ? ELECTRONICALLY SIGNED BY: Gil Godwin MD Narrative 08/25/2025 9:06 AM EST FINDINGS: Comparison June 09, 2025 A single, live intrauterine is present with normal cardiac rate of 153 beats per minute. Normal activity and amniotic fluid volume. Morphology is grossly normal. The current sonographic age is 32 weeks and 0 days, based on the following measurements: ?BPD ? 8.0 cm (32 weeks, 1 day) ?Head Circumference ?30.0 cm (33 weeks, 1 day) ?Abdominal Circumference ?28.5 cm (32 weeks, 3 days) ?Femur Length ?5.8 cm (30 weeks, 3 days) ?Presentation ? Cephalic ? Weight (g) by Percentile ??59.4 % * (prior 42.3%) These measurements result in an estimated date of delivery of October 18, 2025. ??The current estimated weight is 1863 grams (4 pounds, 2 ounces). ?? Procedure Note Gil Godwin MD - 08/25/2025 FINDINGS: Comparison June 09, 2025 A single, live intrauterine is present with normal cardiacrate of 153 beats per minute. Normal activity and amniotic fluidvolume. Morphology is grossly normal. The current sonographic age is 32weeks and 0 days, based on the following [...] of October. The current estimated weight is 1863 grams (4 pounds, 2ounces). IMPRESSION: Single, live intrauterine , current sonographic age of 32 weeksand 0 days, with an estimated date of delivery of October 18, 2025 (priorEDD October 25, 2025) * Estimated Weight (g) by Percentile is based upon an accurateestimated age based on last menstrual period. TRANSCRIBED BY: ELECTRONICALLY SIGNED BY: Gil Godwin MD Authorizing ProviderResult TypeResult StatusAmy [facility] OB US PROCEDURES Final Result * MLR HEMOGLOBIN A1C (08/23/2025 10:25 AM EST)ComponentValueRef RangeTest Method Analysis TimePerformed AtPathologist SignatureGLYCOHEMOGLOBIN A1C4.84.5 - 6.2 %TBHComment: ADA RECOMMENDED LIMIT 4.0 - 6.0 ADA THERAPEUTIC TARGET < 7.0 ACTION SUGGESTED > 7.0 ESTIMATED AVERAGE JWCMMXK16sr/dLTBHSpecimen (Source)Anatomical Location / LateralityCollection Method / VolumeCollection TimeReceived Time08/23/2025 10:25 AM EST08/23/2025 10:26 AM EST Narrative CLINISYNC - 08/23/2025 2:08 PM EST Authorizing ProviderResult TypeResult StatusAmy [place] PACLINISYNCFinal Result Performing OrganizationAddressCity/State/ZIP CodePhone Number [facility] * ALL THYROID STIM HORMONE (08/23/2025 10:25 AM EST)ComponentValueRef RangeTest MethodAnalysis TimePerformed AtPathologist SignatureTHYROID STIMULATING HORMONE1.6770.358 - 3.740 uIU/mLTBHSpecimen (Source)Anatomical Location / LateralityCollection Method / VolumeCollection TimeReceived Time08/23/2025 10:25 AM EST08/23/2025 10:26 AM EST Narrative CLINISYNC - 08/23/2025 11:43 AM EST Authorizing ProviderResult TypeResult StatusKrotilia Lyndsey NPCLINISYNCFinal ResultPerforming OrganizationAddressCity/State/ZIP CodePhone Number [facility] * (ABNORMAL) ALL CBC WITH AUTO DIFF (08/23/2025 10:25 AM EST)ComponentValueRef RangeTest MethodAnalysis TimePerformed AtPathologist SignatureTBH WBC9.34.0 - 11.0 10 3/uLTBHTBH RBC3.07(L)4.20 - 5.40 10 6/uLTBHTBH HGB10.1(L)12.0 - 16.0 g/dLTBHTBH HCT29.4(L)36.0 - 48.0 %TBHTBH MCV95.881.0 - 99.0 fLTBHTBH MCH32.9 26.7 - 34.0 pgTBHTBH MCHC34.429.9 - 35.2 g/dLTBHTBH RDW13.011.0 - 15.0 %TBHTBH AKC391206 - 450 10 3/uLTBHTBH MPV10.89.5 - 13.5 fLTBHNEUTROPHILS PERCENT AUTO 75.3(H)43.0 - 75.0 %TBHLYMPHOCYTES PERCENT AUTO17.8(L)20.5 - 60.0 %TBH MONOCYTES PERCENT AUTO5.81.7 - 12.0 %TBHTBH EO %0.5(L)0.9 - 7.0 %TBHBASOPHILS PERCENT AUTO0.20.2 - 2.0 %TBHIMMATURE GRANULOCYTES PCT AUTO0.40.0 - 0.5 %TBH NEUTROPHILS ABSOLUTE AUTO7.0(H)1.4 - 6.5 10 3/uLTBHLYMPHOCYTES ABSOLUTE AUTO 1.71.2 - 3.8 10 3/uLTBHMONOCYTES ABSOLUTE AUTO0.50.3 - 0.8 10 3/uLTBHTBH EO # 0.10.0 - 0.7 10 3/uLTBHBASOPHILS ABSOLUTE AUTO0.00.0 - 0.1 10 3/uLTBHIMMATURE GRANULOCYTES ABS AUTO0.04(H)0.00 - 0.03 10 3/uLTBHSpecimen (Source)Anatomical Location / LateralityCollection Method / VolumeCollection TimeReceived Time 08/23/2025 10:25 AM EST08/23/2025 10:26 AM EST Narrative [facility]IN[facility]YNC - 08/23/2025 10:42 AM EST Authorizing ProviderResult TypeResult StatusAmy [place] PACLINISYNCFinal Result Performing OrganizationAddressCity/State/ZIP CodePhone Number [facility] * Pap Smear (05/25/2025 12:00 AM EDT)Specimen (Source)Anatomical Location / LateralityCollection Method / VolumeCollection TimeReceived TimeSwabCervical swab / Unknown Narrative Authorizing ProviderResult TypeResult StatusFazio Nurse [facility] ObLAB CYTOLOGY ORDERABLESFinal ResultPerforming OrganizationAddressCity/State/ZIP CodePhone Number EXTERNAL LAB from Last 3 Months or Most Recently Relevant to Health Maintenance Additional Health Concerns Active ProblemsNoted DateDiagnosed DateOB Ogtdlwkwa05/28/2023 Insurance * Guarantor: Екатерина SutherlandAccount TypeRelation to PatientDate of BirthPhone Billing AddressPersonal/ZnncbbOhqu1995 [place] [address] Care Teams Team MemberRelationshipSpecialtyStart DateEnd Date Bria Bales DO [address] [place], [place] [address]al[place] [address] [facility]01/13/24
--- OUTSIDE RECORDS SUMMARY | 2025-10-02 05:13 | XMS_ITS | Encounter Summary ---
Author Organization [facility] Address [address] [place] [address] Care Team Providers Care It Operations Manager Name Role Phone Bria Bales DO Unavailable Encounter Details DateTypeDepartmentCare Team (Latest Contact Info)Irhezhppykp65/08/2025linisync Result Encounter NOMS External Department Unsolicited Bria Bales DO [address] [place], [place] [phone] Social History Tobacco UseTypesPacks/DayYears UsedDateSmoking Tobacco: Never Assessed Estimated Date of AavrkerjBkrwalphFbn83/10/2026ased on UltrasoundSex and Gender InformationValueDate RecordedSex Assigned at GczjsWoavyg91/25/2023 4:28 PM EDT Legal XpjWiqupc05/15/2023 6:42 PM EDTGender MloqoptdVqisjk56/25/2023 4:28 PM EDT Sexual DbcnuxmoausAsxkhikg20/25/2023 4:28 PM EDTdocumented as of this encounter Plan of Treatment DateTypeDepartmentCare Team (Latest Contact Info)Tlwujdtfgvc59/22/2025 9:50 AM ESTRoutine [facility] [place] [address] [place] [phone] Bria Bales DO [address] [place], [place] [address] 11/08/2025 10:10 AM ESTConsult NOMJovany DIETZ [address] [facility] [place] [phone] Bria Bales, DO [address] [facility] [place] [address] documented as of this encounter Goals GoalPatient Goal TypeAssociated ProblemsRecent ProgressPatient-Stated?Author Reminders Care PlanOB RemindersNoOpen Scheduling, Backgrounddocumented as of this encounter Procedures Procedure NamePriorityDate/TimeAssociated DiagnosisCommentsUS OB BPP W NON-CCQQBE2309/20/2025 7:00 PM EST documented in this encounter Results * US OB BPP W NON-STRESS (09/20/2025 7:00 PM EST)Anatomical Region LateralityModalityOtherSpecimen (Source)Anatomical Location / Laterality Collection Method / VolumeCollection TimeReceived Time09/20/2025 7:00 PM EST Narrative 09/20/2025 7:02 PM EST [facility] ?[address] ? [place] [address] ? Ultrasound Report ? Signed ? Patient: ЕКАТЕРИНА SWEENEY ?MR#: [id number] ?? : 1995 ?Acct:[id number] ?? Age/Sex: 30 / F ?ADM Date: ?? Loc: FBC ??254-1 ? Attending Dr: Bria Bales D.O. ? Ordering Physician: Bria Bales D.O. ?? Date of Service: 09/20/25 ?? Procedure(s): US OB BPP w non-stress ?? Accession Number(s): [id number] ? cc: Bria Bales D.O.; Physician,Non-Staff M.D. ? [facility] ? [address] ? [place] [address] ? Patient Name: ?? ЕКАТЕРИНА HAZELER ? MRN: [id number] ? date: 1995 ?Sex: F ?? Assigned Patient Location: [facility]BC ?? Current Patient Location: ? Accession/Order Number: [id number] ?? Exam Date: 09/20/2025 ??17:11 ?Report Date: 09/20/2025 ??19:00 ? At the request of: ?? BRIA ??NII ??DO ? Procedure: ??US OB BPP w non-stress ? Ultrasound biophysical profile ? INDICATION: Decreased movement ? COMPARISON: None ? FINDINGS IMPRESSION: Single live intrauterine gestation in cephalic position. ? heart rate 139 beats per minutes. ??Amniotic fluid volume 13.7 cm. ??05/21 ?? score biophysical profile. ? Impression dictated by: Matt Velez M.D. ??09/20/2025 7:00 PM ? Dictation Location: [facility]-PC-29 ? Electronically authenticated by: [id number] ??Y ?? Date: 09/20/2025 ??19:00 ? Dictated By: ?Matt Velez M.D. ? Signed By: ?09/20/251901 ? DD/ 1900 ? TD/TT: ? Area Cleaner: Procedure Note Radiology, Radiologist, - 09/20/2025 [place] [address] Ultrasound Report Signed Patient: ЕКАТЕРИНА SWEENEY RMR#: [id number] : 1995Acct:[id number] Age/Sex: 30 / FADM Date: Loc: [facility] 254-[address]: Bria Bales D.O. Ordering Physician: Bria Bales D.O. Date of Service: 09/20/25 Procedure(s): US OB BPP w non-stress Accession Number(s): [id number] cc: Bria Bales D.O.; Physician,Non-Staff Lalit The [place] [id number] Patient Name: ЕКАТЕРИНА SWEENEY MRN: [id number] date: 1995 Sex: F Assigned Patient Location: [facility] Current Patient Location: Accession/Order Number: [id number] Exam Date: 09/20/2025 17:11 Report Date: 09/20/2025 19:00 At the request of: BRIA BALES DO Procedure: US OB BPP w non-stress Ultrasound biophysical profile INDICATION: Decreased movement COMPARISON: None FINDINGS IMPRESSION: Single live intrauterine gestation in cephalicposition. heart rate 139 beats per minutes. Amniotic fluid volume 13.7 cm.8/8 score biophysical profile. Impression dictated by: Matt Velez M.D. 09/20/2025 7:00 PM Dictation Location: [place] [address] Electronically authenticated by: [id number] Y Date: 9:00 Dictated By: Matt Velez M.D. Signed By:09/20/251901 DD/ 99 TD/TT: Area Cleaner: Authorizing ProviderResult TypeResult StatusCorey Nii DOCLINISYNC IMAGINGFinal Result documented in this encounter Visit Diagnoses Not on filedocumented in this encounter Additional Health Concerns Active ProblemsNoted DateDiagnosed DateOB Szeyvyhzh61/28/2023 documented as of this encounter Care Teams Team MemberRelationshipSpecialtyStart DateEnd Date Bria Bales DO [address] [place], [place] [address] [place] [address] PCP - [facility]01/13/24documented as of this encounter
--- OUTSIDE RECORDS SUMMARY | 2025-10-02 05:13 | XMS_ITS | Clinical Summary ---
Author Organization Sgnam tem Address [id number] [address] [place] [address] Care Team Providers Care Head Teacher Name Role Phone No Pcp, No Pcp [...] as needed for nausea or vomiting.Active vit no.755-bcja-yuosj acid ( VITAMIN) 27 mg iron- 800 [...] standard drink = 0.6 oz pure alcohol)ChildcareAnswerDate ExyhxwiaPjosjgoojXmpauis96/10/2019Employment AnswerDate YrmwtilvInjlthhrjsPfkdjch05/10/2019Hunger ScreeningAnswerDate RecordedWithin the past 12 months we worried whether our food would run out before we got money to buy more.Never True10/16/2023Within the past 12 months the food we bought just didn't last and we didn't have money to get more.Never True10/16/2023CommentsNoSex and Gender InformationValueDate RecordedSex Assigned at BirthNot on fileLegal NerJgsjyh43/04/2015 12:11 PM EDTGender IdentityNot on fileSexual OrientationNot on file Last Filed Vital Signs Vital SignReadingTime TakenCommentsBlood Gyjfftjc860/66010/16/2023 12:21 PM EST Nsrwd077210/16/2023 12:21 PM ESTTemperature--Respiratory Rate--Oxygen Saturation-- Inhaled Oxygen Concentration--Uopoaw91.3 kg (144 lb)10/16/2023 12:21 PM EST Uifbwn850.2 cm (5' 7 )10/16/2023 12:21 PM ESTBody Mass Index22.55010/16/2023 12:21 PM EST Plan of Treatment Health MaintenanceDue DateLast DoneCommentsDepression Njvktekxr61/18/2005Pap Smear2014dult BMI Dsrbuplyo25Tobacco Screening Influenza Dhujqgn5906/14/2025DTaP,Tdap and Td Vaccines (9 - Td or Tdap), 03/12/2012, 10/11/2005, Additional history exists Medical Devices Not on file Insurance Care Teams Team MemberRelationshipSpecialtyStart DateEnd Date No [place], [place] [address] PCP - [facility]10/29/23
--- OUTSIDE RECORDS SUMMARY | 2025-10-02 05:13 | XMS_ITS | Encounter Summary ---
Author Organization [facility] Address [address] [place] [address] Care Team Providers Care Lead Injection Mold Technician Name Role Phone Nii Marco DO Unavailable Encounter Details DateTypeDepartmentCare Team (Latest Contact Info)Uqbcceoruez77/18/2025Telephone [facility] [address] [place] [address] [place] [phone] Jaz Hdz LPN Social History Tobacco UseTypesPacks/DayYears UsedDateSmoking Tobacco: Never Assessed Estimated Date of HfgzbsdiVujxshmnLve06/10/2026ased on UltrasoundSex and Gender InformationValueDate RecordedSex Assigned at UzzidHojccc94/25/2023 4:28 PM EDT Legal BbdMkmukb78/15/2023 6:42 PM EDTGender SolxuhstRradvh43/25/2023 4:28 PM EDT Sexual ObpsksfnvnuIpephucg01/25/2023 4:28 PM EDTdocumented as of this encounter Miscellaneous Notes * Telephone Encounter - Jaz Hdz LPN - 09/30/2025 1:29 PM EST 1:25pm Called patient and informed her that Dr. Bales would like to have induction of labor scheduled for Saturday10/02/25 @5am. Advised patient to arrive at [facility] ER at 5am and inform them that she is going to be induced. Patient aware that she will sigh consents at [facility]. PVU and notified [facility]at [facility]. Jaz Canchola LPN documented in this encounter Plan of Treatment DateTypeDepartmentCare Team (Latest Contact Info)Ofjlayemdrl05/22/2025 9:50 AM ESTRoutine [facility] [address] [place] [phone] Marco Bales, DO [address] [place] [address] 11/08/2025 10:10 AM ESTConsult [facility] [address] [place] [phone] Marco Bales, DO [address] [place] [address] documented as of this encounter Goals GoalPatient Goal TypeAssociated ProblemsRecent ProgressPatient-Stated?Author Reminders Care PlanOB RemindersNoOpen Scheduling, Backgrounddocumented as of this encounter Visit Diagnoses Not on filedocumented in this encounter Additional Health Concerns Active ProblemsNoted DateDiagnosed DateOB Iahmdvvxw51/28/2023 documented as of this encounter Care Teams Team MemberRelationshipSpecialtyStart DateEnd Date Marco Bales DO [address] [place] [address] PCP - [facility]01/13/24documented as of this encounter
[2025-10-02] MEDS: OXYTOCIN/0.9 % SODIUM CHLORIDE 10 UNITS/500 ML PLAST..BAG 6 UNIT IV (06:28)
[2025-10-02] MEDS: 0.9 % SODIUM CHLORIDE 1,000 ML 125 ML IV ×3 (06:28→12:50)
[2025-10-02 06:32] LABS: Hematocrit 29.6 % (36.0-48.0); Hemoglobin 10.0 g/dL (12.0-16.0); Mean Corpuscular HGB Conc 33.8 g/dL (29.9-35.2); Mean Corpuscular Hemoglobin 31.6 pg (26.7-34.0); Mean Corpuscular Volume 93.7 fL (81.0-99.0); Platelet Count 200 10^3/uL (150-450); Red Blood Count 3.16 10^6/uL (4.20-5.40); White Blood Count 10.9 10^3/uL (4.0-11.0)
[2025-10-02 06:56] LABS: Cannabinoid Screen Urine NEGATIVE (NEGATIVE); Methamphetamines Screen Urine NEGATIVE (NEGATIVE); Tricyclic Antidepressant Urine NEGATIVE (NEGATIVE)
--- NOTE | 2025-10-02 07:50 | PC.NURSE ---
0700 Pitocin increased to 4Miliunits per protocal. Not able back chart this in the MAR due to oncoming shift charted the 0730 increase. Oxytocin checklist was assessed and met criteria to increase Pitocin per protocol.
[2025-10-02] MEDS: ROPIVACAINE HCL/PF 400 MG/200 ML PREMIX 6 MG EPIDURAL (11:18)
[2025-10-02] MEDS: OXYTOCIN/0.9 % SODIUM CHLORIDE 20 UNITS/1,000 ML PLAST..BAG 125 UNIT IV (16:03)
--- NOTE | 2025-10-02 16:05 | PM.OBPRCVD ---
Procedure Intrapartal events: None Induction method: per pitocin protocol Delivery augmentation: rupture of membranes and pitocin Delivery monitor: external FHT and external uterine Route of delivery: Episiotomy Description: none L&D Laceration Description: none Estimated blood loss (mL): 50 Anesthesia type: Epidural Disposition: PACU Infant Delivery date: 10/02/25 Gender: female presentation: vertex Placental delivery description: Spontaneous cord description: 3 Vessels
[2025-10-02] MEDS: IBUPROFEN 600 MG TABLET PO (17:26)
[2025-10-02] MEDS: ACETAMINOPHEN 325 MG TABLET 650 MG PO (21:57)
[2025-10-03 00:04] VITALS: BP 110/56; PULSE 82; TEMP 36.6
[2025-10-03 06:45] LABS: Hematocrit 28.3 % (36.0-48.0); Hemoglobin 9.3 g/dL (12.0-16.0); Immature Granulocytes Abs Auto 0.03 10^3/uL (0.00-0.03); Immature Granulocytes Pct Auto 0.3 % (0.0-0.5); Lymphocytes Absolute Auto 2.2 10^3/uL (1.2-3.8); Mean Corpuscular HGB Conc 32.9 g/dL (29.9-35.2); Mean Corpuscular Hemoglobin 31.6 pg (26.7-34.0); Mean Corpuscular Volume 96.3 fL (81.0-99.0); Platelet Count 174 10^3/uL (150-450); Red Blood Count 2.94 10^6/uL (4.20-5.40); White Blood Count 9.2 10^3/uL (4.0-11.0)
--- NOTE | 2025-10-03 06:49 | PM.OBPN ---
OB - PN: Subj Subjective Patient comments: no complaints and pain well controlled status: doing well Exam Constitutional Vital Signs, click to edit/add: Last Vital Signs Temp 97.9 F 10/03/25 00:04 Pulse 82 10/03/25 00:04 Resp 16 10/03/25 00:04 BP 110/56 10/03/25 00:04 O2 Del Method Room Air 10/03/25 00:04 Documenting provider has reviewed patient's vital signs: yes Common normals: no apparent distress Respiratory Common normals: normal respiratory effort and clear to auscultation bilaterally Cardio Common normals: regular rate and regular rhythm GI Common normals: Normal to inspection, nondistended, normoactive bowel sounds present Extremity Common normals: no clubbing, cyanosis or edema and no calf tenderness Results Labs Labs: Short CBC 10/03/25 Range/Units 06:36 WBC 9.2 (4.0-11.0) 10^3/uL Hgb 9.3 L (12.0-16.0) g/dL Hct 28.3 L (36.0-48.0) % Plt Count 174 (150-450) 10^3/uL OB - PN: A/P Plan - Vaginal Delivery day: 1 Plan: routine care, discharge home and follow up 6 weeks Time Spent with Patient Time: Total time spent is greater than 50% in coordination of care (as documented) at patient's floor/unit and/or counseling patient: Total time spent with greater than 50% in coordination of care (as documented) at patient's floor/unit and/or counseling patient: less than 15 minutes
[2025-10-03 07:38] VITALS: BP 110/66; PULSE 66
[2025-10-03 07:42] VITALS: TEMP 36.5
[2025-10-03] MEDS: IBUPROFEN 600 MG TABLET PO ×2 (08:30→15:51)
[2025-10-03] MEDS: DOCUSATE SODIUM 100 MG CAPSULE PO (08:32)
[2025-10-03 15:45] VITALS: BP 103/57; PULSE 76; TEMP 36.7
== END 2025-10-03 17:45 | disposition home or self-care (01) | DRG 560 ==
PROVIDERS: Admitting Provider Obstetrics & Gynecology; Visit Provider Obstetrics & Gynecology
DX: O99.283 Endocrine, nutritional and metabolic diseases complicating pregnancy, third trimester (principal); E03.9 Hypothyroidism, unspecified; Z3A.37 37 weeks gestation of pregnancy; Z37.0 Single live birth
CPT/HCPCS: 36415; 51702; 59050; 59410; 80307; 85025; 85027; 86850; 86900; 86901; J2795